=== PATIENT | female | born 1985 | race Caucasian/White ===

== ENCOUNTER 2018-02-20 17:19 | Outpatient (REF) | payer MEDICAID, SELFPAY ==
[2018-02-20 18:40] LABS: VALPROIC ACID 90.5 ug/mL (50-100)
== END 2018-02-20 17:39 ==
LOC: NCHCN 17:19
PROVIDERS: PCP Nurse Practitioner Family; Visit Provider Nurse Practitioner Family
DX: G40.409 Other generalized epilepsy and epileptic syndromes, not intractable, without status epilepticus (principal); Z51.81 Encounter for therapeutic drug level monitoring
CPT/HCPCS: 80164

== ENCOUNTER 2018-05-29 11:53 | Outpatient (CLI) | payer MEDICAID, SELFPAY ==
--- NOTE | 2018-05-29 11:49 | DI.RAD_ITS ---
SYMPTOMS/DIAGNOSIS: TAL KNEE PAIN, ? DJD LEFT KNEE: The bony structures are normally mineralized. The joint spaces are intact. There are minimal degenerative changes involving the patellofemoral joint, nil else. RIGHT KNEE: The bony structures are normally mineralized. The joint spaces intact. There are minimal degenerative changes involving the patellofemoral joint, nil else.
== END 2018-05-29 12:13 ==
PROVIDERS: PCP Nurse Practitioner Family; Visit Provider Orthopaedic Surgery
DX: M25.561 Pain in right knee (principal); M25.562 Pain in left knee; M17.0 Bilateral primary osteoarthritis of knee; G89.29 Other chronic pain
CPT/HCPCS: 73562

== ENCOUNTER 2018-09-01 19:57 | Observation (INO) | payer MEDICAID, SELFPAY ==
[2018-09-01] VITALS (38 sets, daily range): BP systolic 99–132; BP diastolic 63–90; PULSE 59–87; RESP 12–31; TEMP 36.7–37.2; O2SAT 95–100
--- NOTE | 2018-09-01 20:10 | W.ED.GENAD ---
Discharge Plan Disposition Condition: Stable Discharge Details Chief Complaint: Seizure Admit Date/Time: 09/01/18 21:52 Admit Provider: Pablo Esquivel Attending Provider: Lou Flynn Primary Care Provider: Com[facility] ED Provider: Uriel Baron Discharge Instructions Activity:: Activity as Tolerated Equipment/Supplies:: No Equipment Needed Diet:: As Tolerated Discharge Orders Discharge Orders: Discharge Order (Routine); Ordered 09/02/18 Ordered By: Lou Flynn Discharge Data Discharge Date/Time-TO BE ENTERED AT DEPARTURE: 09/01/18 23:11 Medical Decision Making 20:05 --32-year-old female with known seizure disorder, presents with confusion presumed post ictal state after generalized tonic-clonic seizure at 7 PM. Patient had a generalized tonic-clonic seizure earlier this morning and was seen at outside hospital. Plan to obtain outside hospital records from [facility] ED visit this morning as well as prior neurology note from [facility]. I am concerned that Topamax is not controlling her seizure. I will give Keppra 1 g load. Will give IVF. 20:15 --I reviewed [facility] note which states patient's neurologist was consulted earlier today and recommended increasing Topamax dose. I reviewed outside hospital record from [facility] neurology office visit 06/11/2018 that notes MRI brain 05/10/2018 with no acute intracranial abnormality EEG was done on 05/05/2018 noted to be normal study. Neurology notes unclear if patient has apoplexy or if other explanation for seizure activity and episodes of loss of consciousness. There was concern that episodes were syncopal in nature patient apparently patient agreed to a Holter monitor. I will obtain ECG. 20:30 --ECG reviewed and interpreted by me: Sinus rhythm 71 bpm, RSR prime pattern noted, normal axis, T wave inversions are noted V2 to V6 with mild ST depressions noted V4 to V6, flattening of T waves lead I and aVL. --I obtained ECG from [facility] dated 02/27/18 which shows similar findings. --Patient now noting that she has had mild headache today and may have hit her head with initial seizure. CT head was not obtained outside hospital earlier today. I considered acute life-threatening intracranial traumatic hemorrhage. CT of the head was obtained and interpreted by radiology: No acute intracranial abnormality. Labs reviewed and patient has mild hypokalemia. Plan to give K-Dur 20 milliequivalents. Plan to admit the patient for observation and neurologic consultation regarding ongoing antiepileptic medications. -- I spoke with Dr. Esquivel who will admit the patient. Discussed plan with patient and family. Family requests that patient be discharged with benzo for emergency use with seizure. HPI General Mode of arrival: EMS. Date/Time Provider Initiated Documentation: 09/01/18 20:09. Limitations to Documentation: no limitations. Information obtained by: patient, family (mother) and EMS. HPI Narrative: 32-year-old female with known seizure disorder presents after generalized tonic-clonic seizure witnessed by significant other while at rest in a chair. Seizure was severe, sudden onset, brief lasting minutes, followed by postictal confusion. Seizure occurred around 7 PM. Patient remains confused which limits history and review of systems. Patient notes last seizure was earlier today. She was seen at [facility] and discharged home. Last seizure episode prior to this morning was about 2 years ago. She is typically controlled on Topamax. Patient follows with [facility] neurology for her seizure disorder. Patient denies weakness. No headache. No pain. Related Data Home Medications Medication Instructions Recorded Confirmed atorvastatin [Lipitor] 20 mg PO HS 06/25/17 09/01/18 gabapentin 600 mg PO BID 06/25/17 09/01/18 lorazepam 0.5 mg PO PRN PRN 06/25/17 09/01/18 albuterol sulfate 90 mcg/actuation 1 inh IH Q4H 05/29/18 09/01/18 breath activated powder inhaler rijguhi-[id number]-wjknipur 250 2 tab PO ONCE PRN tab 05/29/18 09/01/18 mg-250 mg-65 mg tablet cbd oil PO 05/29/18 05/29/18 citalopram 20 mg tablet 20 mg PO DAILY 05/29/18 09/01/18 fluticasone propionate 110 2 puff IH BID 05/29/18 09/01/18 mcg/actuation HFA aerosol inhaler ibuprofen 200 mg tablet 600 mg PO ONCE PRN tab 05/29/18 09/01/18 inhalational spacing device #1 each 05/29/18 09/01/18 iud INTRAUTERINE 05/29/18 05/29/18 aripiprazole 2 mg PO DAILY 09/01/18 09/01/18 hydrochlorothiazide 12.5 mg PO DAILY 09/01/18 09/01/18 topiramate 100 mg PO BID 09/01/18 09/01/18 Allergies Allergy/AdvReac Type Severity Reaction Status Date / Time No Known Allergies Allergy Unverified 06/25/17 10:26 General Stated Complaint: Seizure GM: 2 Review of Systems Review of Systems Unobtainable due to mental status [facility] Social History Smoking/Tobacco Use Status: Never Alcohol Intake: never Drug use: Never Substance use type: does not use Do you feel safe at home: Yes Do you feel safe in your relationship?: Yes Exam Const General: cooperative, no acute distress and well developed Orientation: alert, awake, oriented to person, oriented to place and confused Limitations: altered mental status HENMT Head: normocephalic and atraumatic Mouth: moist mucous membranes, lip abnormal (Lower lip with superficial laceration, no active bleeding) and tongue abnormal laceration (Avulsion right tongue, no active bleeding ) Eyes Conjunctivae: normal conjunctivae Sclera: normal sclerae Neck Neck: trachea midline and supple Resp Auscultation: clear to auscultation bilaterally, no rales, no rhonchi and no wheezes Cardio Jugular venous pressure: no JVD Rate: regular rate and not tachycardic Rhythm: regular rhythm GI Palpation: soft, not firm, no guarding, no masses, not rigid and nontender Skin General skin exam: no rashes or lesions noted Neuro General: alert, awake, oriented Patient Orientation: Person, Place and Confused and tone normal Cranial Nerves: PERRL, accommodation normal and EOM intact bilaterally Cognition: abnormal cognition Speech: speech normal Motor: muscle tone normal throughout and strength 5/5 throughout Sensory Exam: no sensory deficits noted Extrem General: no edema Psych Appearance: grossly normal Course Vital Signs Temperature 37.0 C 09/01/18 20:00 Pulse 84 09/01/18 20:00 Respiratory Rate 18 09/01/18 20:00 Blood Pressure 113/70 09/01/18 20:00 Pulse Oximetry 98 09/01/18 20:00 Temperature 37.0 C 09/01/18 20:00 Temperature Source Tympanic 09/01/18 20:00 Pulse 84 09/01/18 20:00 Respiratory Rate 18 09/01/18 20:00 Respiratory Effort 09/01/18 20:04 Blood Pressure 113/70 09/01/18 20:00 Blood Pressure Position Supine 09/01/18 20:00 Pulse Oximetry 98 09/01/18 20:00 Oxygen Delivery Method Room Air 09/01/18 20:00 Oxygen Flow Rate 0 09/01/18 20:00 Pain Level 0 09/01/18 20:00
[2018-09-01] MEDS: levETIRAcetam 1,000 MG in Normal Saline 100 ML 400 MG IVPB (20:20)
[2018-09-01 20:24] LABS: Abs Immature Grans 0.04 k/cumm (0.0-0.09); Absolute Basophil Count 0.02 k/cumm (0.0-0.2); Absolute Eosinophil Count 0.13 k/cumm (0.0-0.7); Absolute Lymphocyte Count 2.35 k/cumm (1.2-3.4); Absolute Monocyte Count 1.35 k/cumm (0.11-0.7); Absolute Neutrophil Count 7.79 k/cumm (1.2-6.7); Basophils % 0.2; Eosinophils % 1.1; HCT 39.7 % (36.0-46.0); HGB 14.1 g/dL (12.0-15.5); Immature Grans % 0.3; Lymphocytes % 20.1; Mean Corp. HGB Concentration 35.5 g/dL (32.0-36.0); Mean Corpuscular Hemoglobin 29.9 pg (27.0-33.0); Mean Corpuscular Volume 84.3 fL (80-95); Mean Platelet Volume 9.7 fL (8.0-11.0); Monocytes % 11.6; Neutrophils % 66.7; Platelet Count 278 x1000/uL (130-400); RBC 4.71 m/cumm (4.00-5.20); RBC Distribution Width 12.4 % (11.7-14.6); White Blood Cell Count 11.68 k/cumm (4.4-10.8)
[2018-09-01] MEDS: Normal Saline 1,000 ML 150 ML IV ×2 (20:36→23:52)
[2018-09-01 20:37] LABS: ALT 71 U/L (12-78); AST 36 U/L (15-37); Albumin 3.8 g/dL (3.4-5.0); Alkaline Phosphatase 54 U/L (46-116); Anion Gap 16.7 mmol/L (3-11); BUN 10 mg/dL (7-18); Bilirubin, Total 0.4 mg/dL (0.2-1.0); CO2 19.3 mmol/L (21.0-32.0); CREATININE 1.04 mg/dL (0.55-1.02); Calcium 9.2 mg/dL (8.5-10.1); Chloride 105 mmol/L (98-107); Glucose 117 mg/dL (70-100); Magnesium 2.4 mg/dL (1.8-2.4); Potassium 3.2 mmol/L (3.5-5.1); Sodium 141 mmol/L (136-145); Total Protein 7.8 g/dL (6.4-8.2)
[2018-09-01 20:47] LABS: TSH (W/Ref FT4) 2.24 uIU/mL (0.358-3.74)
[2018-09-01 21:00] LABS: Troponin I < 0.05 ng/mL (0.00-0.06)
--- NOTE | 2018-09-01 21:10 | DI.CT_ITS ---
SYMPTOM/DIAGNOSIS: TRAUMA, SEIZURE, HIT HEAD NONCONTRAST HEAD CT: No intracranial hemorrhage or skull fracture is seen. The ventricles are normal in size. The visualized sinuses and mastoid air cells appear clear. IMPRESSION: Negative head CT.
--- NOTE | 2018-09-01 21:33 | DI.VRAD_ITS ---
EXAM: CT Head Without Contrast EXAM DATE/TIME: 09/01/2018 8:50 PM CLINICAL HISTORY: 32 years old, female; Injury or trauma; Fall; Initial encounter; Blunt trauma (contusions or hematomas); With loss of consciousness; Not specified TECHNIQUE: Imaging protocol: Axial computed tomography images of the head without contrast. Coronal and sagittal reformatted images were created and reviewed. Radiation optimization: All CT scans at this facility use at least one of these dose optimization techniques: automated exposure control; mA and/or kV adjustment per patient size (includes targeted exams where dose is matched to clinical indication); or iterative reconstruction. COMPARISON: No relevant prior studies available. FINDINGS: Brain: Normal. No hemorrhage. Unremarkable white matter. No mass effect. Ventricles: Normal. No ventriculomegaly. Bones/joints: Unremarkable. No acute fracture. Sinuses: Visualized sinuses are unremarkable. No fluid levels. Mastoid air cells: Visualized mastoid air cells are well aerated. No mastoid effusion. Soft tissues: Unremarkable. IMPRESSION: No acute intracranial abnormality. Dictated and Authenticated by: Zaki Newman MD. Ordering:BALDEMAR Trevino MD
[2018-09-01] MEDS: Potassium Chloride 10 MEQ TABCR 20 MEQ PO (21:52)
[2018-09-01 22:55] LABS: Bilirubin Negative (Negative); Blood Large (Negative); Clarity Clear (Clear); Glucose Negative (Negative); Ketones Negative (Negative); Leukocyte Esterase Trace (Negative); Nitrite Negative (Negative); Specific Gravity 1.025 (1.005-1.025); pH 6.5 (5-8)
--- NOTE | 2018-09-01 23:04 | W.PM.HP.N ---
Date of service: 09/01/18 Time of Service: 22:04 Assessment and Plan (1) Generalized tonic-clonic seizure: Current visit: Yes Status: Acute Witnessed tonic-clonic seizure with tongue laceration, lip laceration and incontinence, now with altered mental status compatible with postictal state. No clear triggering factors with no historical factors suggesting infection. Prior to her seizure no head trauma. No recent drug changes or additions. She never uptitrated her Topamax dose, as ordered per [facility] notes, to 100 mg twice daily and it is possible her seizure is due simply to under dosing of her anticonvulsant medication. She received an additional 100 mg of Topamax from the [place] [facility] and has been loaded with Keppra intravenously here in our ER. I am not planning on giving her any more anticonvulsants at this time. I will start the higher dose Topamax as suggested per notation from [place]'s conversation with neurology, to 100 mg twice daily. Plan is to titrate up over the course of 1 to 2 weeks to a goal of 200 mg twice daily if tolerated. (2) Tongue laceration: Current visit: Yes Status: Acute Mild discomfort from this. Not actively bleeding. It does not appear to require suturing. It should heal without complication. (3) Hypokalemia: Current visit: Yes Status: Acute Chronicity not known. On thiazide diuretic and it could be a chronic issue. She was given oral replacement in the ER. See what her potassium is in the morning. May need long-term potassium supplementation or a switch to a potassium sparing diuretic. (4) Hypertension: Current visit: Yes Status: Chronic Per patient report well-controlled with diuretic. Monitor to see if any adjustment in treatment for blood pressure is needed. (5) Depression: Current visit: Yes Status: Chronic Per report of patient and her mother stable and doing well with the current combination of aripiprazole and citalopram. I am continuing same. (6) Migraine headache: Current visit: Yes Status: Chronic Has not had a headache in quite some time. Even after her seizure with suspected head trauma consequent to a fall, no headache now. Topamax was started by neurology this past spring in hopes of managing both her seizures and for migraine prophylaxis. (7) Hyperlipidemia: Current visit: Yes Status: Chronic Tolerating statin without clear adverse effect. Continue outpatient dose. (8) Asthma: Current visit: Yes Status: Chronic Per patient, well-controlled with current inhaler of fluticasone, continue same. (9) Fibromyalgia: Current visit: Yes Status: Chronic Patient reports gabapentin has been beneficial for her fibromyalgia. I am continuing outpatient dose. (10) Tremor: Current visit: Yes Status: Chronic Etiology unclear, certainly could be medication. Reportedly much better but not gone after discontinuing Depakote and switching to Topamax. Unclear if tremor antedated aripiprazole. At this point I am not pursuing any additional work-up. History of Present Illness Chief Complaint: Second tonic-clonic seizure in less than 6 hours Narrative: 32-year-old mother of 2 brought to the emergency room by ambulance after her second seizure today. She noted feeling slightly off about mid day while having lunch with her daughters in [facility]. They subsequently went to [facility] and she recalls being in the dog food aisle when she lacked out. Apparently had a tonic-clonic seizure and sustained laceration to her lip and left side of her tongue. She was taken by ambulance to the [place] emergency room where his sensorium quickly cleared. She has been on Topamax 100 mg once daily. ER physician in [place] contacted neurology at [facility] who recommended increasing the Topamax to 100 mg twice daily. She was given an additional 100 mg dose and then discharged. 3 hours later when at home, feeling still a little bit foggy, she had a a witnessed tonic-clonic seizure with some loss of bowel control. Ambulance was again called and she was brought to the emergency room here, mildly confused compatible with postictal state. The tongue and lip lacerations were noted. She had a noncontrast head CT that was normal. Her postictal confusion steadily improved but did not get back to baseline by the time I saw her, according to her mother. She received 1000 mg of Keppra intravenously. She was found to have slightly low potassium and given an oral potassium dose of 20 mEq. She is being admitted now for further monitoring for any dysrhythmia or recurrent seizure. She was seen by neurology fellow Dr. Charito Mosley, and [facility] on June 11 of this year under the supervision of Dr. Mohan, with complaints of tremor in the history of seizure and migraine. At that time was on Depakote for seizure control. Because of the coexistence of possible seizure migraine her medications were changed and she was started on Topamax initially 50 mg daily then 50 mg twice daily with a goal of 100 mg twice daily. She has been taking 100 mg once daily. There was question as to whether she had epilepsy versus nonepileptic seizure or syncopal episodes. 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 Subsequent to that neurology visit she had an unremarkable Holter monitor, sinus rhythm predominant or sinus bradycardia. She had a normal awake EEG August 08, 2018. She had an MRI of her brain without contrast on May 10, 2018 showing nonspecific periventricular white matter changes, interpreted as no acute intracranial process. She had a normal bubble echo on July 22, 2012 with normal LVEF. She is not known to have any chronic electrolyte abnormalities. She has not had any recent fever or URI symptoms. Prior to her fall today with her seizure she has had no head trauma. There have been no new medications other than the change from Depakote to Topamax. Dr. Jd Julien, neurology [facility], was contacted by the [facility] who recommended Topamax dose be increased to 100 mg twice daily and over the next days to week further increase to 150 mg and then 200 mg twice daily. She had been on Keppra in the past but had adverse reaction to this. She was then on Depakote, recently switched to Topamax because of tremor which according to patient and mother definitely got better after stopping the Depakote. She takes gabapentin for fibromyalgia, not as an antiepileptic medication. Review of Systems Review of Systems All systems reviewed & are unremarkable except as noted in HPI and below Eyes Comments: No diplopia. ENT Comments: Tongue is a little sore from the laceration. Cardiovascular Comments: No palpitations. She does not get orthostatic dizziness or presyncope. No chest pains. Respiratory Comments: Asthma well-controlled with current inhalers with no recent use of albuterol. Endocrine Comments: Menses regular, current only with menstrual cycle flow. [facility] Social History Smoking/Tobacco Use Status: Never Alcohol Intake: never Drug use: Never Substance use type: does not use Do you feel safe at home: Yes Do you feel safe in your relationship?: Yes Meds Home Medications Medication Instructions Recorded Confirmed Type atorvastatin [Lipitor] 20 mg PO HS 06/25/17 09/01/18 History divalproex 500 mg PO BID 06/25/17 09/01/18 History gabapentin 600 mg PO BID 06/25/17 09/01/18 History lorazepam 0.5 mg PO PRN PRN 06/25/17 09/01/18 History albuterol sulfate 90 mcg/actuation 1 inh IH Q4H 05/29/18 09/01/18 History breath activated powder inhaler nfnpadz-wqraynqkxznbh-ucljyikp 250 2 tab PO ONCE PRN tab 05/29/18 09/01/18 History mg-250 mg-65 mg tablet cbd oil PO 05/29/18 05/29/18 History citalopram 20 mg tablet 20 mg PO DAILY 05/29/18 09/01/18 History fluticasone propionate 110 2 puff IH BID 05/29/18 09/01/18 History mcg/actuation HFA aerosol inhaler ibuprofen 200 mg tablet 600 mg PO ONCE PRN tab 05/29/18 09/01/18 History inhalational spacing device #1 each 05/29/18 09/01/18 History iud INTRAUTERINE 05/29/18 05/29/18 History oxymetazoline 0.05 % nasal spray 1 spray SAAD BID ml 05/29/18 09/01/18 History aripiprazole 2 mg PO DAILY 09/01/18 09/01/18 History hydrochlorothiazide 12.5 mg PO DAILY 09/01/18 09/01/18 History topiramate 100 mg PO BID 09/01/18 09/01/18 History Allergies Allergy/AdvReac Type Severity Reaction Status Date / Time No Known Allergies Allergy Unverified 06/25/17 10:26 Exam Narrative Exam Narrative: Slightly groggy woman appearing her stated age able to provide most of the history although some response is a bit delayed. As an example, she could eventually recall all of her medications but it took some prompting from her mother as to what the medications were for. She knew she was in the hospital in [facility], September 01 could not recall the day of the week or the year without prompting. No evidence of head trauma on the scalp. She has a 5 mm laceration lateral aspect of the tongue on the right. There is a broader abrasion on the inner aspect of her lower lip on the left side. No other oral lesions. Neck is supple. No cervical adenopathy no carotid bruits no JVD. Lungs clear in all soliz with good aeration no wheezing. Regular heart rhythm no murmur S3 or S4. Abdomen is obese soft nontender no enlargement of liver or spleen appreciated. Rectal and genital exams were not performed. Extremities warm good pulses no bruising of the shins or forearms. She has a mild rest tremor of her head less pronounced in her hands. No pronator drift. Antigravity power present in both lower extremities. 3+ DTRs at the right knee 2+ at the elbows and left knee. Withdrawal to plantar testing. No truncal ataxia when she sits up unassisted. Results EKG sinus rhythm nonspecific lateral ST changes no different from an ECG from February 2018. Noncontrast head CT with no bleed, mass or midline shift. Labs : 09/01/18 20:00 09/01/18 20:00 Laboratory Results - last 24 hr 09/01/18 09/01/18 09/01/18 20:00 20:00 20:00 WBC 11.68 H RBC 4.71 Hgb 14.1 Hct 39.7 MCV 84.3 MCH 29.9 MCHC 35.5 RDW 12.4 Plt Count 278 MPV 9.7 Immature Gran % 0.3 Neutrophils % 66.7 Lymphocytes % 20.1 Monocytes % 11.6 Eosinophils % 1.1 Basophils % 0.2 Absolute Neutrophils 7.79 H Absolute Lymphocytes 2.35 Absolute Monocytes 1.35 H Absolute Eosinophils 0.13 Absolute Basophils 0.02 Sodium 141 Potassium 3.2 L Chloride 105 Carbon Dioxide 19.3 L Anion Gap 16.7 H BUN 10 Creatinine 1.04 H Estimated GFR/1.73 m2 >= 60.00 Glucose 117 H Calcium 9.2 Magnesium 2.4 Total Bilirubin 0.4 AST 36 ALT 71 Alkaline Phosphatase 54 Troponin I Total Protein 7.8 Albumin 3.8 TSH 2.24 Urine Color Urine Clarity Urine pH Ur Specific [place] Urine Protein Urine Ketones Urine Blood Urine Nitrite Urine Bilirubin Urine Urobilinogen Ur Leukocyte Esterase Urine Glucose 09/01/18 09/01/18 20:00 22:45 WBC RBC Hgb Hct MCV MCH MCHC RDW Plt Count MPV Immature Gran % Neutrophils % Lymphocytes % Monocytes % Eosinophils % Basophils % Absolute Neutrophils Absolute Lymphocytes Absolute Monocytes Absolute Eosinophils Absolute Basophils Sodium Potassium Chloride Carbon Dioxide Anion Gap BUN Creatinine Estimated GFR/1.73 m2 Glucose Calcium Magnesium Total Bilirubin AST ALT Alkaline Phosphatase Troponin I < 0.05 Total Protein Albumin TSH Urine Color Yellow Urine Clarity Clear Urine pH 6.5 Ur Specific [place] 1.025 Urine Protein 30 H Urine Ketones Negative Urine Blood Large H Urine Nitrite Negative Urine Bilirubin Negative Urine Urobilinogen 2.0 H Ur Leukocyte Esterase Trace H Urine Glucose Negative Last Vital Signs Temp 37.0 C 09/01/18 20:00 Pulse 63 09/01/18 22:31 Resp 24 09/01/18 22:40 BP 130/83 09/01/18 22:31 Pulse Ox 100 09/01/18 22:31
[2018-09-01 23:07] LABS: *AMPHETAMINES SCREEN URINE Negative (Negative); *BARBITURATES SCREEN URINE Negative (Negative); *BENZODIAZEPINES SCREEN URINE Negative (Negative); Cannabinoids THC Negative (Negative); Cocaine Screen,Urine Negative (Negative); METHADONE URINE SCREEN Negative (Negative); OPIATES URINE SCREEN Negative (Negative)
[2018-09-01 23:09] LABS: Tricyclic Antidepressants Negative (Negative)
--- NOTE | 2018-09-01 23:30 | HPE_ITS ---
Date of service: 09/01/18 Time of Service: 22:04 Assessment and Plan (1) Generalized tonic-clonic seizure: Current visit: Yes Status: Acute Witnessed tonic-clonic seizure with tongue laceration, lip laceration and incontinence, now with altered mental status compatible with postictal state. No clear triggering factors with no historical factors suggesting infection. Prior to her seizure no head trauma. No recent drug changes or additions. She never uptitrated her Topamax dose, as ordered per [facility] notes, to 100 mg twice daily and it is possible her seizure is due simply to under dosing of her antico nvulsant medication. She received an additional 100 mg of Topamax from the [place] ER and has been loaded with Keppra intravenously here in our ER. I am not planning on giving her any more anticonvulsants at this time. I will start the higher dose Topamax as suggested per notation from [place]'s conversation with neurology, to 100 mg twice daily. Plan is to titrate up over the course of 1 to 2 weeks to a goal of 200 mg twice daily if tolerated. (2) Tongue laceration: Current visit: Yes Status: Acute Mild discomfort from this. Not actively bleeding. It does not appear to require suturing. It should heal without complication. (3) Hypokalemia: Current visit: Yes Status: Acute Chronicity not known. On thiazide diuretic and it could be a chronic issue. She was given oral replacement in the ER. See what her potassium is in the morning. May need long-term potassium supplementation or a switch to a potassium sparing diuretic. (4) Hypertension: Current visit: Yes Status: Chronic Per patient report well-controlled with diuretic. Monitor to see if any adjustment in treatment for blood pressure is needed. (5) Depression: Current visit: Yes Status: Chronic Per report of patient and her mother stable and doing well with the current combination of aripiprazole and citalopram. I am continuing same. (6) Migraine headache: Current visit: Yes Status: Chronic Has not had a headache in quite some time. Even after her seizure with suspected head trauma consequent to a fall, no headache now. Topamax was started by neurology this past spring in hopes of managing both her seizures and for migraine prophylaxis. (7) Hyperlipidemia: Current visit: Yes Status: Chronic Tolerating statin without clear adverse effect. Continue outpatient dose. (8) Asthma: Current visit: Yes Status: Chronic Per patient, well-controlled with current inhaler of fluticasone, continue same. (9) Fibromyalgia: Current visit: Yes Status: Chronic Patient reports gabapentin has been beneficial for her fibromyalgia. I am continuing outpatient dose. (10) Tremor: Current visit: Yes Status: Chronic Etiology unclear, certainly could be medication. Reportedly much better but not gone after discontinuing Depakote and switching to Topamax. Unclear if tremor antedated aripiprazole. At this point I am not pursuing any additional work-up. History of Present Illness Chief Complaint: Second tonic-clonic seizure in less than 6 hours Narrative: 32-year-old mother of 2 brought to the emergency room by ambulance after her second seizure today. She noted feeling slightly off about mid day while having lunch with her daughters in [facility]. They subsequently went to [facility] and she recalls being in the dog food aisle when she lacked out. Apparently had a tonic-clonic seizure and sustained laceration to her lip and left side of her tongue. She was taken by ambulance to the [place] emergency room where his sensorium quickly cleared. She has been on Topamax 100 mg once daily. ER physician in [place] contacted neurology at [facility] who recommended increasing the Topamax to 100 mg twice daily. She was given an additional 100 mg dose and then discharged. 3 hours later when at home, feeling still a little bit foggy, she had a a witnessed tonic-clonic seizure with some loss of bowel control. Ambulance was again called and she was brought to the emergency room here, mildly confused compatible with postictal state. The tongue and lip lacerations were noted. She had a noncontrast head CT that was normal. Her postictal confusion steadily improved but did not get back to baseline by the time I saw her, according to her mother. She received 1000 mg of Keppra intravenously. She was found to have slightly low potassium and given an oral potassium dose of 20 mEq. She is being admitted now for further monitoring for any dysrhythmia or recurrent seizure. She was seen by neurology fellow Dr. Charito Mosley, and [facility] on June 11 of this year under the supervision of Dr. Mohan, with complaints of tremor in the history of seizure and migraine. At that time was on Depakote for seizure control. Because of the coexistence of possible seizure migraine her medications were changed and she was started on Topamax initially 50 mg daily then 50 mg twice daily with a goal of 100 mg twice daily. She has been taking 100 mg once daily. There was question as to whether she had epilepsy versus nonepileptic seizure or syncopal episodes. 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 Subsequent to that neurology visit she had an unremarkable Holter monitor, sinus rhythm predominant or sinus bradycardia. She had a normal awake EEG August 08, 2018. She had an MRI of her brain without contrast on May 10, 2018 showing nonspecific periventricular white matter changes, interpreted as no acute intracranial process. She had a normal bubble echo on July 22, 2012 with normal LVEF. She is not known to have any chronic electrolyte abnormalities. She has not had any recent fever or URI symptoms. Prior to her fall today with her seizure she has had no head trauma. There have been no new medications other than the change from Depakote to Topamax. Dr. Jd Julien, neurology [facility], was contacted by the [facility] who recommended Topamax dose be increased to 100 mg twice daily and over the next days to week further increase to 150 mg and then 200 mg twice daily. She had been on Keppra in the past but had adverse reaction to this. She was then on Depakote, recently switched to Topamax because of tremor which according to patient and mother definitely got better after stopping the Depakote. She takes gabapentin for fibromyalgia, not as an antiepileptic medication. Review of Systems Review of Systems All systems reviewed & are unremarkable except as noted in HPI and below Eyes Comments: No diplopia. ENT Comments: Tongue is a little sore from the laceration. Cardiovascular Comments: No palpitations. She does not get orthostatic dizziness or presyncope. No chest pains. Respiratory Comments: Asthma well-controlled with current inhalers with no recent use of albuterol. Endocrine Comments: Menses regular, current only with menstrual cycle flow. [facility] Social History Smoking/Tobacco Use Status: Never Alcohol Intake: never Drug use: Never Substance use type: does not use Do you feel safe at home: Yes Do you feel safe in your relationship?: Yes Meds Home Medications Medication Instructions Recorded Confirmed Type atorvastatin [Lipitor] 20 mg PO HS 06/25/17 09/01/18 History divalproex 500 mg PO BID 06/25/17 09/01/18 History gabapentin 600 mg PO BID 06/25/17 09/01/18 History lorazepam 0.5 mg PO PRN PRN 06/25/17 09/01/18 History albuterol sulfate 90 mcg/actuation 1 inh IH Q4H 05/29/18 09/01/18 History breath activated powder inhaler [id number] 250 2 tab PO ONCE PRN tab 05/29/18 09/01/18 History mg-250 mg-65 mg tablet cbd oil PO 05/29/18 05/29/18 History citalopram 20 mg tablet 20 mg PO DAILY 05/29/18 09/01/18 History fluticasone propionate 110 2 puff IH BID 05/29/18 09/01/18 History mcg/actuation HFA aerosol inhaler ibuprofen 200 mg tablet 600 mg PO ONCE PRN tab 05/29/18 09/01/18 History inhalational spacing device #1 each 05/29/18 09/01/18 History iud INTRAUTERINE 05/29/18 05/29/18 History oxymetazoline 0.05 % nasal spray 1 spray SAAD BID ml 05/29/18 09/01/18 History aripiprazole 2 mg PO DAILY 09/01/18 09/01/18 History hydrochlorothiazide 12.5 mg PO DAILY 09/01/18 09/01/18 History topiramate 100 mg PO BID 09/01/18 09/01/18 History Allergies Allergy/AdvReac Type Severity Reaction Status Date / Time No Known Allergies Allergy Unverified 06/25/17 10:26 Exam Narrative Exam Narrative: Slightly groggy woman appearing her stated age able to provide most of the history although some response is a bit delayed. As an example, she could eventually recall all of her medications but it took some prompting from her mother as to what the medications were for. She knew she was in the hospital in [facility], September 01 could not recall the day of the week or the year without prompting. No evidence of head trauma on the scalp. She has a 5 mm laceration lateral aspect of the tongue on the right. There is a broader abrasion on the inner aspect of her lower lip on the left side. No other oral lesions. Neck is supple. No cervical adenopathy no carotid bruits no JVD. Lungs clear in all soliz with good aeration no wheezing. Regular heart rhythm no murmur S3 or S4. Abdomen is obese soft nontender no enlargement of liver or spleen appreciated. Rectal and genital exams were not performed. Extremities warm good pulses no bruising of the shins or forearms. She has a mild rest tremor of her head less pronounced in her hands. No pronator drift. Antigravity power present in both lower extremities. 3+ DTRs at the right knee 2+ at the elbows and left knee. Withdrawal to plantar testing. No truncal ataxia when she sits up unassisted. Results EKG sinus rhythm nonspecific lateral ST changes no different from an ECG from February 2018. Noncontrast head CT with no bleed, mass or midline shift. Labs : 09/01/18 20:00 09/01/18 20:00 Laboratory Results - last 24 hr 09/01/18 09/01/18 09/01/18 20:00 20:00 20:00 WBC 11.68 H RBC 4.71 Hgb 14.1 Hct 39.7 MCV 84.3 MCH 29.9 MCHC 35.5 RDW 12.4 Plt Count 278 MPV 9.7 Immature Gran % 0.3 Neutrophils % 66.7 Lymphocytes % 20.1 Monocytes % 11.6 Eosinophils % 1.1 Basophils % 0.2 Absolute Neutrophils 7.79 H Absolute Lymphocytes 2.35 Absolute Monocytes 1.35 H Absolute Eosinophils 0.13 Absolute Basophils 0.02 Sodium 141 Potassium 3.2 L Chloride 105 Carbon Dioxide 19.3 L Anion Gap 16.7 H BUN 10 Creatinine 1.04 H Estimated GFR/1.73 m2 >= 60.00 Glucose 117 H Calcium 9.2 Magnesium 2.4 Total Bilirubin 0.4 AST 36 ALT 71 Alkaline Phosphatase 54 Troponin I Total Protein 7.8 Albumin 3.8 TSH 2.24 Urine Color Urine Clarity Urine pH Ur Specific [place] Urine Protein Urine Ketones Urine Blood Urine Nitrite Urine Bilirubin Urine Urobilinogen Ur Leukocyte Esterase Urine Glucose 09/01/18 09/01/18 20:00 22:45 WBC RBC Hgb Hct MCV MCH MCHC RDW Plt Count MPV Immature Gran % Neutrophils % Lymphocytes % Monocytes % Eosinophils % Basophils % Absolute Neutrophils Absolute Lymphocytes Absolute Monocytes Absolute Eosinophils Absolute Basophils Sodium Potassium Chloride Carbon Dioxide Anion Gap BUN Creatinine Estimated GFR/1.73 m2 Glucose Calcium Magnesium Total Bilirubin AST ALT Alkaline Phosphatase Troponin I < 0.05 Total Protein Albumin TSH Urine Color Yellow Urine Clarity Clear Urine pH 6.5 Ur Specific [place] 1.025 Urine Protein 30 H Urine Ketones Negative Urine Blood Large H Urine Nitrite Negative Urine Bilirubin Negative Urine Urobilinogen 2.0 H Ur Leukocyte Esterase Trace H Urine Glucose Negative Last Vital Signs Temp 37.0 C 09/01/18 20:00 Pulse 63 09/01/18 22:31 Resp 24 09/01/18 22:40 BP 130/83 09/01/18 22:31 Pulse Ox 100 09/01/18 22:31
[2018-09-01 23:40] LABS: Bacteria Negative HPF (Negative); C & S Indicated? Yes; Casts Negative LPF (Negative); Crystals Negative HPF (Negative); Epithelial Cells Negative HPF (Negative); Mucus Negative (Negative); Other Cells Few Renal (Negative); RBC >50 (0-2)
[2018-09-02] VITALS (34 sets, daily range): BP systolic 96–126; BP diastolic 49–70; PULSE 51–65; RESP 17–29; TEMP 36.6–37.6; O2SAT 95–97
[2018-09-02] MEDS: Ibuprofen 400 MG TAB PO (00:47)
[2018-09-02] MEDS: Normal Saline 1,000 ML 150 ML IV (05:41)
[2018-09-02 07:12] LABS: HCT 35.9 % (36.0-46.0); HGB 12.6 g/dL (12.0-15.5); Mean Corp. HGB Concentration 35.1 g/dL (32.0-36.0); Mean Corpuscular Hemoglobin 30.1 pg (27.0-33.0); Mean Corpuscular Volume 85.9 fL (80-95); Mean Platelet Volume 9.7 fL (8.0-11.0); Platelet Count 251 x1000/uL (130-400); RBC 4.18 m/cumm (4.00-5.20); RBC Distribution Width 12.4 % (11.7-14.6); White Blood Cell Count 9.48 k/cumm (4.4-10.8)
[2018-09-02 07:24] LABS: BUN 7 mg/dL (7-18); CREATININE 0.79 mg/dL (0.55-1.02); Calcium 8.1 mg/dL (8.5-10.1); Chloride 111 mmol/L (98-107); Glucose 87 mg/dL (70-100); Potassium 3.1 mmol/L (3.5-5.1); Sodium 142 mmol/L (136-145)
[2018-09-02] MEDS: POTASSIUM CHLORIDE/0.9% NACL 1,000 ML 125 MEQ IV (08:14)
--- NOTE | 2018-09-02 08:20 | W.PM.PROGNOT ---
Date of Service Date of service: 09/02/18 Time of Service: 08:20 Subjective Interval history since last seen: Nursing noted hopping from commode to bed on both legs. No reports of any kind of pain. No seizure events in the ICU. Objective Objective Clinical Data: Abnormal lab results 09/01/18 09/01/18 09/01/18 Range/Units 20:00 20:00 22:45 WBC 11.68 H (4.4-10.8) k/cumm Hct (36.0-46.0) % Absolute Neutrophils 7.79 H (1.2-6.7) k/cumm Absolute Monocytes 1.35 H (0.11-0.7) k/cumm Potassium 3.2 L (3.5-5.1) mmol/L Chloride (98-107) mmol/L Carbon Dioxide 19.3 L (21.0-32.0) mmol/L Anion Gap 16.7 H (3-11) mmol/L Creatinine 1.04 H (0.55-1.02) mg/dL Glucose 117 H (70-100) mg/dL Calcium (8.5-10.1) mg/dL Urine Protein 30 H (Negative) mg/dL Urine Blood Large H (Negative) Urine Urobilinogen 2.0 H (Up TO 0.2) EU/dL Ur Leukocyte Esterase Trace H (Negative) Urine RBC >50 H (0-2) 09/02/18 09/02/18 Range/Units 06:30 06:30 WBC (4.4-10.8) k/cumm Hct 35.9 L (36.0-46.0) % Absolute Neutrophils (1.2-6.7) k/cumm Absolute Monocytes (0.11-0.7) k/cumm Potassium 3.1 L (3.5-5.1) mmol/L Chloride 111 H (98-107) mmol/L Carbon Dioxide 18.0 L (21.0-32.0) mmol/L Anion Gap 13.0 H (3-11) mmol/L Creatinine (0.55-1.02) mg/dL Glucose (70-100) mg/dL Calcium 8.1 L (8.5-10.1) mg/dL Urine Protein (Negative) mg/dL Urine Blood (Negative) Urine Urobilinogen (Up TO 0.2) EU/dL Ur Leukocyte Esterase (Negative) Urine RBC (0-2) Vital Signs Temperature 36.8 C 09/02/18 03:00 Temperature Source Temporal Artery Scan 09/02/18 03:00 Pulse 57 L 09/02/18 03:00 Pulse 56 L 09/02/18 03:30 Respiratory Rate 29 H 09/02/18 03:30 Respiratory Effort Non-Labored 09/01/18 23:10 Respiratory Depth Normal 09/01/18 23:10 Respiratory Pattern Normal 09/01/18 23:10 Blood Pressure 108/58 L 09/02/18 03:00 Blood Pressure Mean 63 09/02/18 02:01 Blood Pressure Position Supine 09/01/18 23:10 Pulse Oximetry 96 09/02/18 03:30 Oxygen Delivery Method Room Air 09/02/18 03:00 Oxygen Flow Rate 0 09/02/18 03:00 Pain Level 0 09/02/18 03:00 Intake & Output 09/01/18 09/01/18 09/02/18 11:59 23:59 11:59 Intake Total 700 / 700 1252.5 / 1252.5 Output Total 475 / 475 Balance 700 / 700 777.5 / 777.5 Weight 85.8 kg 86.7 kg Intake: IV 600 / 600 1252.5 / 1252.5 Oral 100 / 100 Output: Urine 475 / 475 Other: Comment Pt is having her menses and the urine was mixed w/stool. Stool Size Moderate Stool Characteristics Formed Voiding Methods Bedside Commode Laboratory Results WBC 9.48 k/cumm (4.4-10.8) 09/02/18 06:30 RBC 4.18 m/cumm (4.00-5.20) 09/02/18 06:30 Hgb 12.6 g/dL (12.0-15.5) 09/02/18 06:30 Hct 35.9 % (36.0-46.0) L 09/02/18 06:30 MCV 85.9 fL (80-95) 09/02/18 06:30 MCH 30.1 pg (27.0-33.0) 09/02/18 06:30 MCHC 35.1 g/dL (32.0-36.0) 09/02/18 06:30 RDW 12.4 % (11.7-14.6) 09/02/18 06:30 Plt Count 251 x1000/uL (130-400) 09/02/18 06:30 MPV 9.7 fL (8.0-11.0) 09/02/18 06:30 Immature Gran % 0.3 09/01/18 20:00 Neutrophils % 66.7 09/01/18 20:00 Lymphocytes % 20.1 09/01/18 20:00 Monocytes % 11.6 09/01/18 20:00 Eosinophils % 1.1 09/01/18 20:00 Basophils % 0.2 09/01/18 20:00 Absolute Neutrophils 7.79 k/cumm (1.2-6.7) H 09/01/18 20:00 Absolute Lymphocytes 2.35 k/cumm (1.2-3.4) 09/01/18 20:00 Absolute Monocytes 1.35 k/cumm (0.11-0.7) H 09/01/18 20:00 Absolute Eosinophils 0.13 k/cumm (0.0-0.7) 09/01/18 20:00 Absolute Basophils 0.02 k/cumm (0.0-0.2) 09/01/18 20:00 Sodium 142 mmol/L (136-145) 09/02/18 06:30 Potassium 3.1 mmol/L (3.5-5.1) L 09/02/18 06:30 Chloride 111 mmol/L (98-107) H 09/02/18 06:30 Carbon Dioxide 18.0 mmol/L (21.0-32.0) L 09/02/18 06:30 Anion Gap 13.0 mmol/L (3-11) H 09/02/18 06:30 BUN 7 mg/dL (7-18) 09/02/18 06:30 Creatinine 0.79 mg/dL (0.55-1.02) 09/02/18 06:30 Estimated GFR/1.73 m2 >= 60.00 (mL/min/1.73m2) 09/02/18 06:30 Glucose 87 mg/dL (70-100) 09/02/18 06:30 Calcium 8.1 mg/dL (8.5-10.1) L 09/02/18 06:30 Magnesium 2.4 mg/dL (1.8-2.4) 09/01/18 20:00 Total Bilirubin 0.4 mg/dL (0.2-1.0) 09/01/18 20:00 AST 36 U/L (15-37) 09/01/18 20:00 ALT 71 U/L (12-78) 09/01/18 20:00 Alkaline Phosphatase 54 U/L (46-116) 09/01/18 20:00 Troponin I < 0.05 ng/mL (0.00-0.06) 09/01/18 20:00 Total Protein 7.8 g/dL (6.4-8.2) 09/01/18 20:00 Albumin 3.8 g/dL (3.4-5.0) 09/01/18 20:00 TSH 2.24 uIU/mL (0.358-3.74) 09/01/18 20:00 Urine Color Yellow (Yellow) 09/01/18 22:45 Urine Clarity Clear (Clear) 09/01/18 22:45 Urine pH 6.5 (5-8) 09/01/18 22:45 Ur Specific [place] 1.025 (1.005-1.025) 09/01/18 22:45 Urine Protein 30 mg/dL (Negative) H 09/01/18 22:45 Urine Ketones Negative mg/dL (Negative) 09/01/18 22:45 Urine Blood Large (Negative) H 09/01/18 22:45 Urine Nitrite Negative (Negative) 09/01/18 22:45 Urine Bilirubin Negative (Negative) 09/01/18 22:45 Urine Urobilinogen 2.0 EU/dL (Up TO 0.2) H 09/01/18 22:45 Ur Leukocyte Esterase Trace (Negative) H 09/01/18 22:45 Urine RBC >50 (0-2) H 09/01/18 22:45 Urine WBC 3-5 HPF (0-5) 09/01/18 22:45 Ur Epithelial Cells Negative HPF (Negative) 09/01/18 22:45 Urine Crystals Negative HPF (Negative) 09/01/18 22:45 Urine Bacteria Negative HPF (Negative) 09/01/18 22:45 Urine Casts Negative LPF (Negative) 09/01/18 22:45 Urine Mucus Negative (Negative) 09/01/18 22:45 Urine Other Few renal (Negative) 09/01/18 22:45 Ur Culture Indicated? Yes 09/01/18 22:45 Urine Glucose Negative mg/dL (Negative) 09/01/18 22:45 Urine Opiates Screen Negative (Negative) 09/01/18 22:45 Urine Methadone Screen Negative (Negative) 09/01/18 22:45 Ur Barbiturates Screen Negative (Negative) 09/01/18 22:45 Ur Tricyclics Screen Negative (Negative) 09/01/18 22:45 Ur Amphetamines Screen Negative (Negative) 09/01/18 22:45 U Benzodiazepines Scrn Negative (Negative) 09/01/18 22:45 Urine Cocaine Screen Negative (Negative) 09/01/18 22:45 Ur THC Screen Negative (Negative) 09/01/18 22:45
[2018-09-02] MEDS: Potassium Chloride 20 MEQ TABCR 40 MEQ PO (08:26)
[2018-09-02] MEDS: Topiramate 100 MG TAB PO (08:26)
[2018-09-02] MEDS: Gabapentin 600 MG TAB PO (08:26)
[2018-09-02] MEDS: hydroCHLOROthiazide 12.5 MG TAB PO (08:26)
[2018-09-02] MEDS: ARIPiprazole 2 MG TAB PO (08:26)
[2018-09-02] MEDS: Citalopram 20 MG TAB PO (08:26)
[2018-09-02 10:07] LABS: Lactate-non-spesis 2.6 mmol/l (0.6-1.4)
[2018-09-02 10:30] LABS: Creatine Kinase 67 U/L (26-192)
[2018-09-02] MEDS: Mometasone 220 MCG 14 DOSE INHALER 2 PUFF IH (12:49)
--- NOTE | 2018-09-02 15:09 | PDOC.CMIN ---
Care Management Initial Assess REASON FOR HOSPITALIZATION:: Seizure Activity PAST MEDICAL HISTORY/PAST SURGICAL HISTORY:: Hyperlipidemia, Major depressive disorder, essential hypertension, hypokalemia, migraine, asthma, fibromyalgia, tremor, seizures PREVIOUS FUNCTIONAL STATUS/SOCIAL/FAMILY SUPPORTS:: Bessie resides in [place] with her and their children. She had [facility] Moderate needs supports and relys on her and mother for help with some ADLs. CURRENT FUNCTIONAL STATUS:: Bessie is lying in bed, her mother at her bedside. She presents with low affect and her mother answers most questions directed at Bessie. ADVANCE DIRECTIVES:: None on file at [facility]. Has patient been provided with information about the portal?: Yes Did the patient sign up for the portal?: No CODE STATUS:: Full Code INSURANCE COVERAGE / FINANCIAL ISSUES:: [employer] CURRENT HOME/COMMUNITY SERVICES/EQUIPMENT:: [employer] Moderate Needs PRIMARY CARE PHYSICIAN:: [employer] POTENTIAL DISCHARGE NEEDS:: Follow up appointment with PCP, neurologist. PATIENT/FAMILY EDUCATION NEEDS:: Review discharge instructions, discuss Ask Me Three. ANTICIPATED BARRIERS TO DISCHARGE:: None identified. TRANSPORTATION:: Via private vehicle with her family. PLAN:: Bessie will discharge home when ready per MD. She will follow up with her PCP, Neurologist and plan of care as prescribed. She will transport via private vehicle with family.
--- NOTE | 2018-09-02 15:55 | W.PM.DS.N ---
Date of service: 09/02/18 Time of Service: 15:55 DS: Diagnosis Discharge Diagnosis (1) Generalized tonic-clonic seizure: Status: Acute (2) Tongue laceration: Status: Acute (3) Hypokalemia: Status: Acute (4) Hypertension: Status: Chronic (5) Depression: Status: Chronic (6) Migraine headache: Status: Chronic (7) Hyperlipidemia: Status: Chronic (8) Asthma: Status: Chronic (9) Fibromyalgia: Status: Chronic (10) Tremor: Status: Chronic Discharge Plan Disposition Patient Disposition: HOME Condition: Stable Discharge Details Reason For Visit: SEIZURE ACTIVITY Admit Date/Time: 09/01/18 21:52 Admit Provider: Pablo Esquivel Attending Provider: Pablo Esquivel Primary Care Provider: Com[facility] Hospital Course Hospital Course: Ms Levy is a 32 year old female with PMHx of seizure d/o under the care of [facility] neurology with change of therapy from depakote to topamax in June of 2018 who experienced two tonic-clonic seizure events yesterday (09/01/18). She was treated in [place] ED after the first seizure and discharged home, only to have a seizure happen again 4 hours later. She received IV keppra at [facility] ED after her 2nd seizure and was observed on [facility] hospitalist service overnight without recurrence of seizures. Her topamax dose was increased, with the recommendation of [facility] neurolog[facility], from 100 mg daily to 100 mg PO BID. She did have a quivering motion around her upper lip noted with intact mental status. We obtained an EEG on the patient while she was experiencing this movement. Contact was made with [facility] neurology to establish a plan for follow up. It is felt that the patient is safe for discharge home today with the increased dose of topamax (100 mg PO BID) and follow up appointment with [facility] neurology tomorrow at 8 am. Home Meds and New Rx's Prescriptions: Continued cbd oil PO RF: 0 citalopram 20 mg tablet 20 mg PO DAILY RF: 0 Aerochamber MV spacer .ROUTE .MEDSUPPLY Qty: 1 RF: 0 albuterol sulfate 90 mcg/actuation aerosol powdr breath activated 1 inh IH Q4H RF: 0 iud Intrauterine RF: 0 Flovent HFA 110 mcg/actuation HFA aerosol inhaler 2 puff IH BID RF: 0 Excedrin Migraine 250-250-65 mg tablet 2 tab PO ONCE PRNRF: 0 ibuprofen [Advil] 200 mg tablet 600 mg PO ONCE PRNRF: 0 topiramate 100 mg Tablet 100 mg PO BID RF: 0 hydrochlorothiazide 12.5 mg Capsule 12.5 mg PO DAILY RF: 0 aripiprazole 2 mg Tablet 2 mg PO DAILY RF: 0 gabapentin 600 MG tablet 600 mg PO BID RF: 0 atorvastatin [Lipitor] 20 MG tablet 20 mg PO HS RF: 0 lorazepam 0.5 MG tablet 0.5 mg PO PRN PRNRF: 0 Discharge Instructions Instructions: Topiramate (By mouth), Recurrent Seizures in Adults (DC) Additional Instructions: Return to the hospital with any more tonic clonic seizures. Follow up with [facility] neurology tomorrow morning at 8 am. Activity:: Activity as Tolerated Equipment/Supplies:: No Equipment Needed Diet:: As Tolerated Discharge Orders Discharge Orders: Discharge Order (Routine); Ordered 09/02/18 Ordered By: Lou Flynn Exam Narrative Exam Narrative: General: very pleasant obese female, A&Ox3, tired HEENT: EOMI, MMM, does have a tongue bite on the right side of her tongue Heart: RRR, no m/r/g Lungs: CTAB GI: abdomen is soft, nontender, nondistended Extremities: no e/c/c BLE's DS: Data Vitals/I&O Vitals and I&O: Vital Signs Temperature 37.6 C H 09/02/18 08:30 Temperature Source Temporal Artery Scan 09/02/18 08:30 Pulse 58 L 09/02/18 12:01 Pulse 64 09/02/18 13:00 Respiratory Rate 21 09/02/18 13:00 Respiratory Effort Non-Labored 09/01/18 23:10 Respiratory Depth Normal 09/01/18 23:10 Respiratory Pattern Normal 09/01/18 23:10 Blood Pressure 121/66 09/02/18 12:01 Blood Pressure Mean 80 09/02/18 12:01 Blood Pressure Position Supine 09/01/18 23:10 Pulse Oximetry 95 09/02/18 06:01 Oxygen Delivery Method Room Air 09/02/18 03:00 Oxygen Flow Rate 0 09/02/18 03:00 Pain Level 0 09/02/18 03:00 Intake & Output 09/01/18 09/02/18 09/02/18 23:59 11:59 23:59 Intake Total 700 / 700 1502.5 / 1502.5 Output Total 675 / 675 Balance 700 / 700 827.5 / 827.5 Weight 85.8 kg 86.7 kg Intake: IV 600 / 600 1252.5 / 1252.5 Oral 100 / 100 250 / 250 Output: Urine 575 / 575 Stool 100 / 100 Other: Comment mixed with stool. Stool Size Moderate Moderate Stool Characteristics Liquid Liquid Voiding Methods Bedside Commode Completed studies during hospitalization [Text1]: CT head: Negative head CT. Labs on day of discharge: Labs from last 24 hours 09/02/18 09/02/18 09/02/18 09:50 09:50 06:30 WBC 9.48 RBC 4.18 Hgb 12.6 Hct 35.9 L MCV 85.9 MCH 30.1 MCHC 35.1 RDW 12.4 Plt Count 251 MPV 9.7 Immature Gran % Neutrophils % Lymphocytes % Monocytes % Eosinophils % Basophils % Absolute Neutrophils Absolute Lymphocytes Absolute Monocytes Absolute Eosinophils Absolute Basophils Sodium Potassium Chloride Carbon Dioxide Anion Gap BUN Creatinine Estimated GFR/1.73 m2 Glucose Lactate 2.6 H Calcium Magnesium Total Bilirubin AST ALT Alkaline Phosphatase Creatine Kinase 67 Troponin I Total Protein Albumin TSH Urine Color Urine Clarity Urine pH Ur Specific [place] Urine Protein Urine Ketones Urine Blood Urine Nitrite Urine Bilirubin Urine Urobilinogen Ur Leukocyte Esterase Urine RBC Urine WBC Ur Epithelial Cells Urine Crystals Urine Bacteria Urine Casts Urine Mucus Urine Other Ur Culture Indicated? Urine Glucose Urine Opiates Screen Urine Methadone Screen Ur Barbiturates Screen Ur Tricyclics Screen Ur Amphetamines Screen U Benzodiazepines Scrn Urine Cocaine Screen Ur THC Screen 09/02/18 09/01/18 09/01/18 06:30 22:45 22:45 WBC RBC Hgb Hct MCV MCH MCHC RDW Plt Count MPV Immature Gran % Neutrophils % Lymphocytes % Monocytes % Eosinophils % Basophils % Absolute Neutrophils Absolute Lymphocytes Absolute Monocytes Absolute Eosinophils Absolute Basophils Sodium 142 Potassium 3.1 L Chloride 111 H Carbon Dioxide 18.0 L Anion Gap 13.0 H BUN 7 Creatinine 0.79 Estimated GFR/1.73 m2 >= 60.00 Glucose 87 Lactate Calcium 8.1 L Magnesium Total Bilirubin AST ALT Alkaline Phosphatase Creatine Kinase Troponin I Total Protein Albumin TSH Urine Color Yellow Urine Clarity Clear Urine pH 6.5 Ur Specific [place] 1.025 Urine Protein 30 H Urine Ketones Negative Urine Blood Large H Urine Nitrite Negative Urine Bilirubin Negative Urine Urobilinogen 2.0 H Ur Leukocyte Esterase Trace H Urine RBC >50 H Urine WBC 3-5 Ur Epithelial Cells Negative Urine Crystals Negative Urine Bacteria Negative Urine Casts Negative Urine Mucus Negative Urine Other Few renal Ur Culture Indicated? Yes Urine Glucose Negative Urine Opiates Screen Negative Urine Methadone Screen Negative Ur Barbiturates Screen Negative Ur Tricyclics Screen Negative Ur Amphetamines Screen Negative U Benzodiazepines Scrn Negative Urine Cocaine Screen Negative Ur THC Screen Negative 09/01/18 09/01/18 09/01/18 20:00 20:00 20:00 WBC 11.68 H RBC 4.71 Hgb 14.1 Hct 39.7 MCV 84.3 MCH 29.9 MCHC 35.5 RDW 12.4 Plt Count 278 MPV 9.7 Immature Gran % 0.3 Neutrophils % 66.7 Lymphocytes % 20.1 Monocytes % 11.6 Eosinophils % 1.1 Basophils % 0.2 Absolute Neutrophils 7.79 H Absolute Lymphocytes 2.35 Absolute Monocytes 1.35 H Absolute Eosinophils 0.13 Absolute Basophils 0.02 Sodium Potassium Chloride Carbon Dioxide Anion Gap BUN Creatinine Estimated GFR/1.73 m2 Glucose Lactate Calcium Magnesium Total Bilirubin AST ALT Alkaline Phosphatase Creatine Kinase Troponin I < 0.05 Total Protein Albumin TSH 2.24 Urine Color Urine Clarity Urine pH Ur Specific [place] Urine Protein Urine Ketones Urine Blood Urine Nitrite Urine Bilirubin Urine Urobilinogen Ur Leukocyte Esterase Urine RBC Urine WBC Ur Epithelial Cells Urine Crystals Urine Bacteria Urine Casts Urine Mucus Urine Other Ur Culture Indicated? Urine Glucose Urine Opiates Screen Urine Methadone Screen Ur Barbiturates Screen Ur Tricyclics Screen Ur Amphetamines Screen U Benzodiazepines Scrn Urine Cocaine Screen Ur THC Screen 09/01/18 20:00 WBC RBC Hgb Hct MCV MCH MCHC RDW Plt Count MPV Immature Gran % Neutrophils % Lymphocytes % Monocytes % Eosinophils % Basophils % Absolute Neutrophils Absolute Lymphocytes Absolute Monocytes Absolute Eosinophils Absolute Basophils Sodium 141 Potassium 3.2 L Chloride 105 Carbon Dioxide 19.3 L Anion Gap 16.7 H BUN 10 Creatinine 1.04 H Estimated GFR/1.73 m2 >= 60.00 Glucose 117 H Lactate Calcium 9.2 Magnesium 2.4 Total Bilirubin 0.4 AST 36 ALT 71 Alkaline Phosphatase 54 Creatine Kinase Troponin I Total Protein 7.8 Albumin 3.8 TSH Urine Color Urine Clarity Urine pH Ur Specific [place] Urine Protein Urine Ketones Urine Blood Urine Nitrite Urine Bilirubin Urine Urobilinogen Ur Leukocyte Esterase Urine RBC Urine WBC Ur Epithelial Cells Urine Crystals Urine Bacteria Urine Casts Urine Mucus Urine Other Ur Culture Indicated? Urine Glucose Urine Opiates Screen Urine Methadone Screen Ur Barbiturates Screen Ur Tricyclics Screen Ur Amphetamines Screen U Benzodiazepines Scrn Urine Cocaine Screen Ur THC Screen Preliminary micro results at discharge 09/01/18 22:45 Urine Culture - Preliminary Urine - Reflex from [facility] Social History Smoking/Tobacco Use Status: Never Alcohol Intake: never Drug use: Never Substance use type: does not use Do you feel safe at home: Yes Do you feel safe in your relationship?: Yes
--- NOTE | 2018-09-02 16:00 | DSE_ITS ---
Date of service: 09/02/18 Time of Service: 15:55 DS: Diagnosis Discharge Diagnosis (1) Generalized tonic-clonic seizure: Status: Acute (2) Tongue laceration: Status: Acute (3) Hypokalemia: Status: Acute (4) Hypertension: Status: Chronic (5) Depression: Status: Chronic (6) Migraine headache: Status: Chronic (7) Hyperlipidemia: Status: Chronic (8) Asthma: Status: Chronic (9) Fibromyalgia: Status: Chronic (10) Tremor: Status: Chronic Discharge Plan Disposition Patient Disposition: HOME Condition: Stable Discharge Details Reason For Visit: SEIZURE ACTIVITY Admit Date/Time: 09/01/18 21:52 Admit Provider: Pablo Esquivel Attending Provider: Pablo Esquivel Primary Care Provider: [facility] Hospital Course Hospital Course: Ms Levy is a 32 year old female with PMHx of seizure d/o under the care of [facility] neurology with change of therapy from depakote to topamax in June of 2018 who experienced two tonic-clonic seizure events yesterday (09/01/18). She was treated in [place] ED after the first seizure and discharged home, only to have a seizure happen again 4 hours later. She received IV keppra at [facility] ED after her 2nd seizure and was observed on [facility] hospitalist service overnight without recurrence of seizures. Her topamax dose was increased, with the recommendation of [facility] neurology, from 100 mg daily to 100 mg PO BID. She did have a quivering motion around her upper lip noted with intact mental status. We obtained an EEG on the patient while she was experiencing this movement. Contact was made with [facility] neurology to establish a plan for follow up. It is felt that the patient is safe for discharge home today with the increased dose of topamax (100 mg PO BID) and follow up appointment with [facility] neurology tomorrow at 8 am. Home Meds and New Rx's Prescriptions: Continued cbd oil PO RF: 0 citalopram 20 mg tablet 20 mg PO DAILY RF: 0 Aerochamber MV spacer .ROUTE .MEDSUPPLY Qty: 1 RF: 0 albuterol sulfate 90 mcg/actuation aerosol powdr breath activated 1 inh IH Q4H RF: 0 iud Intrauterine RF: 0 Flovent HFA 110 mcg/actuation HFA aerosol inhaler 2 puff IH BID RF: 0 Excedrin Migraine 250-250-65 mg tablet 2 tab PO ONCE PRNRF: 0 ibuprofen [Advil] 200 mg tablet 600 mg PO ONCE PRNRF: 0 topiramate 100 mg Tablet 100 mg PO BID RF: 0 hydrochlorothiazide 12.5 mg Capsule 12.5 mg PO DAILY RF: 0 aripiprazole 2 mg Tablet 2 mg PO DAILY RF: 0 gabapentin 600 MG tablet 600 mg PO BID RF: 0 atorvastatin [Lipitor] 20 MG tablet 20 mg PO HS RF: 0 lorazepam 0.5 MG tablet 0.5 mg PO PRN PRNRF: 0 Discharge Instructions Instructions: Topiramate (By mouth), Recurrent Seizures in Adults (DC) Additional Instructions: Return to the hospital with any more tonic clonic seizures. Follow up with [facility] neurology tomorrow morning at 8 am. Activity:: Activity as Tolerated Equipment/Supplies:: No Equipment Needed Diet:: As Tolerated Discharge Orders Discharge Orders: Discharge Order (Routine); Ordered 09/02/18 Ordered By: Lou Flynn Exam Narrative Exam Narrative: General: very pleasant obese female, A&Ox3, tired HEENT: EOMI, MMM, does have a tongue bite on the right side of her tongue Heart: RRR, no m/r/g Lungs: CTAB GI: abdomen is soft, nontender, nondistended Extremities: no e/c/c BLE's DS: Data Vitals/I&O Vitals and I&O: Vital Signs Temperature 37.6 C H 09/02/18 08:30 Temperature Source Temporal Artery Scan 09/02/18 08:30 Pulse 58 L 09/02/18 12:01 Pulse 64 09/02/18 13:00 Respiratory Rate 21 09/02/18 13:00 Respiratory Effort Non-Labored 09/01/18 23:10 Respiratory Depth Normal 09/01/18 23:10 Respiratory Pattern Normal 09/01/18 23:10 Blood Pressure 121/66 09/02/18 12:01 Blood Pressure Mean 80 09/02/18 12:01 Blood Pressure Position Supine 09/01/18 23:10 Pulse Oximetry 95 09/02/18 06:01 Oxygen Delivery Method Room Air 09/02/18 03:00 Oxygen Flow Rate 0 09/02/18 03:00 Pain Level 0 09/02/18 03:00 Intake & Output 09/01/18 09/02/18 09/02/18 23:59 11:59 23:59 Intake Total 700 / 700 1502.5 / 1502.5 Output Total 675 / 675 Balance 700 / 700 827.5 / 827.5 Weight 85.8 kg 86.7 kg Intake: IV 600 / 600 1252.5 / 1252.5 Oral 100 / 100 250 / 250 Output: Urine 575 / 575 Stool 100 / 100 Other: Comment mixed with stool. Stool Size Moderate Moderate Stool Characteristics Liquid Liquid Voiding Methods Bedside Commode Completed studies during hospitalization [Text1]: CT head: Negative head CT. Labs on day of discharge: Labs from last 24 hours 09/02/18 09/02/18 09/02/18 09:50 09:50 06:30 WBC 9.48 RBC 4.18 Hgb 12.6 Hct 35.9 L MCV 85.9 MCH 30.1 MCHC 35.1 RDW 12.4 Plt Count 251 MPV 9.7 Immature Gran % Neutrophils % Lymphocytes % Monocytes % Eosinophils % Basophils % Absolute Neutrophils Absolute Lymphocytes Absolute Monocytes Absolute Eosinophils Absolute Basophils Sodium Potassium Chloride Carbon Dioxide Anion Gap BUN Creatinine Estimated GFR/1.73 m2 Glucose Lactate 2.6 H Calcium Magnesium Total Bilirubin AST ALT Alkaline Phosphatase Creatine Kinase 67 Troponin I Total Protein Albumin TSH Urine Color Urine Clarity Urine pH Ur Specific [place] Urine Protein Urine Ketones Urine Blood Urine Nitrite Urine Bilirubin Urine Urobilinogen Ur Leukocyte Esterase Urine RBC Urine WBC Ur Epithelial Cells Urine Crystals Urine Bacteria Urine Casts Urine Mucus Urine Other Ur Culture Indicated? Urine Glucose Urine Opiates Screen Urine Methadone Screen Ur Barbiturates Screen Ur Tricyclics Screen Ur Amphetamines Screen U Benzodiazepines Scrn Urine Cocaine Screen Ur THC Screen 09/02/18 09/01/18 09/01/18 06:30 22:45 22:45 WBC RBC Hgb Hct MCV MCH MCHC RDW Plt Count MPV Immature Gran % Neutrophils % Lymphocytes % Monocytes % Eosinophils % Basophils % Absolute Neutrophils Absolute Lymphocytes Absolute Monocytes Absolute Eosinophils Absolute Basophils Sodium 142 Potassium 3.1 L Chloride 111 H Carbon Dioxide 18.0 L Anion Gap 13.0 H BUN 7 Creatinine 0.79 Estimated GFR/1.73 m2 >= 60.00 Glucose 87 Lactate Calcium 8.1 L Magnesium Total Bilirubin AST ALT Alkaline Phosphatase Creatine Kinase Troponin I Total Protein Albumin TSH Urine Color Yellow Urine Clarity Clear Urine pH 6.5 Ur Specific [place] 1.025 Urine Protein 30 H Urine Ketones Negative Urine Blood Large H Urine Nitrite Negative Urine Bilirubin Negative Urine Urobilinogen 2.0 H Ur Leukocyte Esterase Trace H Urine RBC >50 H Urine WBC 3-5 Ur Epithelial Cells Negative Urine Crystals Negative Urine Bacteria Negative Urine Casts Negative Urine Mucus Negative Urine Other Few renal Ur Culture Indicated? Yes Urine Glucose Negative Urine Opiates Screen Negative Urine Methadone Screen Negative Ur Barbiturates Screen Negative Ur Tricyclics Screen Negative Ur Amphetamines Screen Negative U Benzodiazepines Scrn Negative Urine Cocaine Screen Negative Ur THC Screen Negative 09/01/18 09/01/18 09/01/18 20:00 20:00 20:00 WBC 11.68 H RBC 4.71 Hgb 14.1 Hct 39.7 MCV 84.3 MCH 29.9 MCHC 35.5 RDW 12.4 Plt Count 278 MPV 9.7 Immature Gran % 0.3 Neutrophils % 66.7 Lymphocytes % 20.1 Monocytes % 11.6 Eosinophils % 1.1 Basophils % 0.2 Absolute Neutrophils 7.79 H Absolute Lymphocytes 2.35 Absolute Monocytes 1.35 H Absolute Eosinophils 0.13 Absolute Basophils 0.02 Sodium Potassium Chloride Carbon Dioxide Anion Gap BUN Creatinine Estimated GFR/1.73 m2 Glucose Lactate Calcium Magnesium Total Bilirubin AST ALT Alkaline Phosphatase Creatine Kinase Troponin I < 0.05 Total Protein Albumin TSH 2.24 Urine Color Urine Clarity Urine pH Ur Specific [place] Urine Protein Urine Ketones Urine Blood Urine Nitrite Urine Bilirubin Urine Urobilinogen Ur Leukocyte Esterase Urine RBC Urine WBC Ur Epithelial Cells Urine Crystals Urine Bacteria Urine Casts Urine Mucus Urine Other Ur Culture Indicated? Urine Glucose Urine Opiates Screen Urine Methadone Screen Ur Barbiturates Screen Ur Tricyclics Screen Ur Amphetamines Screen U Benzodiazepines Scrn Urine Cocaine Screen Ur THC Screen 09/01/18 20:00 WBC RBC Hgb Hct MCV MCH MCHC RDW Plt Count MPV Immature Gran % Neutrophils % Lymphocytes % Monocytes % Eosinophils % Basophils % Absolute Neutrophils Absolute Lymphocytes Absolute Monocytes Absolute Eosinophils Absolute Basophils Sodium 141 Potassium 3.2 L Chloride 105 Carbon Dioxide 19.3 L Anion Gap 16.7 H BUN 10 Creatinine 1.04 H Estimated GFR/1.73 m2 >= 60.00 Glucose 117 H Lactate Calcium 9.2 Magnesium 2.4 Total Bilirubin 0.4 AST 36 ALT 71 Alkaline Phosphatase 54 Creatine Kinase Troponin I Total Protein 7.8 Albumin 3.8 TSH Urine Color Urine Clarity Urine pH Ur Specific [place] Urine Protein Urine Ketones Urine Blood Urine Nitrite Urine Bilirubin Urine Urobilinogen Ur Leukocyte Esterase Urine RBC Urine WBC Ur Epithelial Cells Urine Crystals Urine Bacteria Urine Casts Urine Mucus Urine Other Ur Culture Indicated? Urine Glucose Urine Opiates Screen Urine Methadone Screen Ur Barbiturates Screen Ur Tricyclics Screen Ur Amphetamines Screen U Benzodiazepines Scrn Urine Cocaine Screen Ur THC Screen Preliminary micro results at discharge 09/01/18 22:45 Urine Culture - Preliminary Urine - Reflex from [facility] Social History Smoking/Tobacco Use Status: Never Alcohol Intake: never Drug use: Never Substance use type: does not use Do you feel safe at home: Yes Do you feel safe in your relationship?: Yes
--- NOTE | 2018-09-02 16:27 | INITIAL_ITS ---
Care Management Initial Assess REASON FOR HOSPITALIZATION:: Seizure Activity PAST MEDICAL HISTORY/PAST SURGICAL HISTORY:: Hyperlipidemia, Major depressive disorder, essential hypertension, hypokalemia, migraine, asthma, fibromyalgia, tremor, seizures PREVIOUS FUNCTIONAL STATUS/SOCIAL/FAMILY SUPPORTS:: Bessie resides in [place] with her and their children. She had [facility] Moderate needs supports and relys on her and mother for help with some ADLs. CURRENT FUNCTIONAL STATUS:: Bessie is lying in bed, her mother at her bedside. She presents with low affect and her mother answers most questions directed at Bessie. ADVANCE DIRECTIVES:: None on file at [facility]. Has patient been provided with information about the portal?: Yes Did the patient sign up for the portal?: No CODE STATUS:: Full Code INSURANCE COVERAGE / FINANCIAL ISSUES:: [employer] CURRENT HOME/COMMUNITY SERVICES/EQUIPMENT:: [employer] Moderate Needs PRIMARY CARE PHYSICIAN:: Comfort Urban POTENTIAL DISCHARGE NEEDS:: Follow up appointment with PCP, neurologist. PATIENT/FAMILY EDUCATION NEEDS:: Review discharge instructions, discuss Ask Me Three. ANTICIPATED BARRIERS TO DISCHARGE:: None identified. TRANSPORTATION:: Via private vehicle with her family. PLAN:: Bessie will discharge home when ready per MD. She will follow up with her PCP, Neurologist and plan of care as prescribed. She will transport via private vehicle with family.
[2018-09-02 16:30] LABS: Lactate-non-spesis 1.4 mmol/l (0.6-1.4)
[2018-09-02 16:42] LABS: Anion Gap 11.5 mmol/L (3-11); BUN 8 mg/dL (7-18); CO2 17.5 mmol/L (21.0-32.0); CREATININE 0.94 mg/dL (0.55-1.02); Calcium 8.3 mg/dL (8.5-10.1); Chloride 113 mmol/L (98-107); Glucose 100 mg/dL (70-100); Sodium 142 mmol/L (136-145)
--- NOTE | 2018-09-08 13:36 | PDOC.EEG ---
EEG: [facility] Department of Neurology INPATIENT EEG REPORT Date of Recording: Interpreting Physician: Dr. Aundrea Lee Reason for study: Ms. Levy is a 32 year-old woman with a history of seizures who was admitted for breakthrough seizure activity. Current Medications: Home Medications Medication Instructions Recorded Confirmed Type atorvastatin [Lipitor] 20 mg PO HS 06/25/17 09/01/18 History gabapentin 600 mg PO BID 06/25/17 09/01/18 History lorazepam 0.5 mg PO PRN PRN 06/25/17 09/01/18 History albuterol sulfate 90 mcg/actuation 1 inh IH Q4H 05/29/18 09/01/18 History breath activated powder inhaler [id number] 250 2 tab PO ONCE PRN tab 05/29/18 09/01/18 History mg-250 mg-65 mg tablet cbd oil PO 05/29/18 05/29/18 History citalopram 20 mg tablet 20 mg PO DAILY 05/29/18 09/01/18 History fluticasone propionate 110 2 puff IH BID 05/29/18 09/01/18 History mcg/actuation HFA aerosol inhaler ibuprofen 200 mg tablet 600 mg PO ONCE PRN tab 05/29/18 09/01/18 History inhalational spacing device #1 each 05/29/18 09/01/18 History iud INTRAUTERINE 05/29/18 05/29/18 History aripiprazole 2 mg PO DAILY 09/01/18 09/01/18 History hydrochlorothiazide 12.5 mg PO DAILY 09/01/18 09/01/18 History topiramate 100 mg PO BID 09/01/18 09/01/18 History METHODS: A 21 channel digitized electroencephalogram was performed in the [facility] Med/Surg Floor or ICU. The 10/20 international system of electrode placement was used and bipolar and referential electrode montages were recorded. In addition to EEG the patient was monitored for EKG and lateral/vertical eye movements. Activation procedures of photic stimulation and hyperventilation were performed if applicable. Video was used during activation procedures and during events where applicable. The duration of the recording was 30 minutes. DESCRIPTION OF EEG: The patient was noted to be awake, drowsy, and asleep during the recording. During maximal wakefulness a 9-Hz posterior background rhythm was present which was well-modulated, symmetrical, reactive to eye opening, and of moderate voltage. With eye opening the background activity changed to a low voltage mixture of alpha, beta, and occasional theta range frequencies. Faster frequencies were present in the bilateral anterior head regions. There was a normal anterior-posterior voltage gradient. During drowsiness, there was attenuation of the posterior dominant background rhythm and vertex waves. Stage II sleep was present with symmetrical sleep spindles, K-complexes, and vertex waves. During drowsiness at 14:12:34, there was a single right frontal, moderate-amplitude, spike-wave at F4 during a burst of generalized theta slowing attributed to drowsiness. There was minimal field effect into Fp2 only. This was concerning for, but not definitively, epileptic. Activating Procedures: Photic stimulation was performed but unreliable given patient was asleep. There was no posterior driving seen. Hyperventilation was performed with fair effort and produced no physiological slowing of the background. EKG: EKG revealed normal sinus rhythm. INTERPRETATION: This EEG is borderline abnormal for a single right frontal spike-wave at F4 during a burst of generalized theta slowing attributed to drowsiness. There was minimal field effect into Fp2 only. PRIOR EEG: -August 2018 at [facility]: normal awake study. 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 Clinical correlation is advised. Aundrea Lee MD
--- NOTE | 2018-09-08 13:44 | PDOC.EEG_ITS ---
EEG: [facility] Department of Neurology INPATIENT EEG REPORT Date of Recording: Interpreting Physician: Dr. Aundrea Lee Reason for study: Ms. Levy is a 32 year-old woman with a history of seizures who was admitted for breakthrough seizure activity. Current Medications: Home Medications Medication Instructions Recorded Confirmed Type atorvastatin [Lipitor] 20 mg PO HS 06/25/17 09/01/18 History gabapentin 600 mg PO BID 06/25/17 09/01/18 History lorazepam 0.5 mg PO PRN PRN 06/25/17 09/01/18 History albuterol sulfate 90 mcg/actuation 1 inh IH Q4H 05/29/18 09/01/18 History breath activated powder inhaler rvybtxa-ihwcmijrvpdzw-nmuxdjmu 250 2 tab PO ONCE PRN tab 05/29/18 09/01/18 History mg-250 mg-65 mg tablet cbd oil PO 05/29/18 05/29/18 History citalopram 20 mg tablet 20 mg PO DAILY 05/29/18 09/01/18 History fluticasone propionate 110 2 puff IH BID 05/29/18 09/01/18 History mcg/actuation HFA aerosol inhaler ibuprofen 200 mg tablet 600 mg PO ONCE PRN tab 05/29/18 09/01/18 History inhalational spacing device #1 each 05/29/18 09/01/18 History iud INTRAUTERINE 05/29/18 05/29/18 History aripiprazole 2 mg PO DAILY 09/01/18 09/01/18 History hydrochlorothiazide 12.5 mg PO DAILY 09/01/18 09/01/18 History topiramate 100 mg PO BID 09/01/18 09/01/18 History METHODS: A 21 channel digitized electroencephalogram was performed in the [facility] Med/Surg Floor or ICU. The 10/20 international system of electrode placement was used and bipolar and referential electrode montages were recorded. In addition to EEG the patient was monitored for EKG and lateral/vertical eye movements. Activation procedures of photic stimulation and hyperventilation were performed if applicable. Video was used during activation procedures and during events where applicable. The duration of the recording was 30 minutes. DESCRIPTION OF EEG: The patient was noted to be awake, drowsy, and asleep during the recording. During maximal wakefulness a 9-Hz posterior background rhythm was present which was well-modulated, symmetrical, reactive to eye opening, and of moderate voltage. With eye opening the background activity changed to a low voltage mixture of alpha, beta, and occasional theta range frequencies. Faster frequencies were present in the bilateral anterior head regions. There was a normal anterior-posterior voltage gradient. During drowsiness, there was attenuation of the posterior dominant background rhythm and vertex waves. Stage II sleep was present with symmetrical sleep spindles, K-complexes, and vertex waves. During drowsiness at 14:12:34, there was a single right frontal, moderate- amplitude, spike-wave at F4 during a burst of generalized theta slowing attributed to drowsiness. There was minimal field effect into Fp2 only. This was concerning for, but not definitively, epileptic. Activating Procedures: Photic stimulation was performed but unreliable given patient was asleep. There was no posterior driving seen. Hyperventilation was performed with fair effort and produced no physiological slowing of the background. EKG: EKG revealed normal sinus rhythm. INTERPRETATION: This EEG is borderline abnormal for a single right frontal spike-wave at F4 during a burst of generalized theta slowing attributed to drowsiness. There was minimal field effect into Fp2 only. PRIOR EEG: -August 2018 at [facility] [place]: normal awake study. 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 Clinical correlation is advised. Aundrea Lee MD
== END 2018-09-02 17:30 | disposition home or self-care (01) ==
LOC: ER 21:22 → ICU 23:13
PROVIDERS: Admitting Provider Internal Medicine; Emergency Provider Student in an Organized Health Care Education/Training Program; PCP Nurse Practitioner Family; Visit Provider Internal Medicine
DX: G40.89 Other seizures (principal); S01.512A Laceration without foreign body of oral cavity, initial encounter; S01.511A Laceration without foreign body of lip, initial encounter; E87.6 Hypokalemia; I10 Essential (primary) hypertension; F32.9 Major depressive disorder, single episode, unspecified; E78.5 Hyperlipidemia, unspecified; R25.1 Tremor, unspecified; X58.XXXA Exposure to other specified factors, initial encounter
CPT/HCPCS: 36415; 80048; 80053; 80307; 81025; 82550; 85027; 93005; 94640; 95819; 96361; 96374; 99217; 99220; 99285; 70450; 81003; 81015; 83605; 83735; 84443; 84484; 85025; 87086; 93010; G0378; J1953

== ENCOUNTER 2019-01-15 14:10 | Outpatient (REF) | payer MEDICAID, SELFPAY ==
[2019-01-15 14:29] LABS: Abs Immature Grans 0.02 k/cumm (0.0-0.09); Absolute Basophil Count 0.03 k/cumm (0.0-0.2); Absolute Eosinophil Count 0.16 k/cumm (0.0-0.7); Absolute Lymphocyte Count 2.04 k/cumm (1.2-3.4); Absolute Monocyte Count 1.07 k/cumm (0.11-0.7); Absolute Neutrophil Count 2.07 k/cumm (1.2-6.7); Basophils % 0.6; HCT 41.5 % (36.0-46.0); HGB 14.3 g/dL (12.0-15.5); Immature Grans % 0.4; Lymphocytes % 37.8; Mean Corp. HGB Concentration 34.5 g/dL (32.0-36.0); Mean Corpuscular Hemoglobin 30.4 pg (27.0-33.0); Mean Corpuscular Volume 88.1 fL (80-95); Mean Platelet Volume 10.3 fL (8.0-11.0); Monocytes % 19.9; Neutrophils % 38.3; Platelet Count 229 x1000/uL (130-400); RBC 4.71 m/cumm (4.00-5.20); RBC Distribution Width 12.3 % (11.7-14.6); White Blood Cell Count 5.39 k/cumm (4.4-10.8)
[2019-01-15 14:38] LABS: ALT 26 U/L (14-59); AST 18 U/L (15-37)
[2019-01-15 14:52] LABS: VALPROIC ACID 56.4 ug/mL (50-100)
== END 2019-01-15 14:30 ==
LOC: NCHCN 14:10
PROVIDERS: PCP Nurse Practitioner Family; Visit Provider Nurse Practitioner Psychiatric/Mental Health
DX: Z51.81 Encounter for therapeutic drug level monitoring (principal)
CPT/HCPCS: 80164; 84450; 84460; 85025

== ENCOUNTER 2019-07-28 01:28 | Outpatient (CLI) | payer MEDICAID, SELFPAY ==
[2019-07-28 10:13] LABS: HCT 40.5 % (36.0-46.0); HGB 14.1 g/dL (12.0-15.5); Mean Corp. HGB Concentration 34.8 g/dL (32.0-36.0); Mean Corpuscular Hemoglobin 30.4 pg (27.0-33.0); Mean Corpuscular Volume 87.3 fL (80-95); Mean Platelet Volume 9.3 fL (8.0-11.0); Platelet Count 294 x1000/uL (130-400); RBC 4.64 m/cumm (4.00-5.20); RBC Distribution Width 12.5 % (11.7-14.6); White Blood Cell Count 8.29 k/cumm (4.4-10.8)
[2019-07-28 10:58] LABS: Anion Gap 9.7 mmol/L (3-11); BUN 13 mg/dL (7-18); CO2 22.3 mmol/L (21.0-32.0); CREATININE 0.71 mg/dL (0.55-1.02); Calcium 8.9 mg/dL (8.5-10.1); Chloride 106 mmol/L (98-107); Glucose 80 mg/dL (74-106); Potassium 4.4 mmol/L (3.5-5.1); Sodium 138 mmol/L (136-145)
== END 2019-07-28 01:48 ==
PROVIDERS: PCP Nurse Practitioner Family; Visit Provider Obstetrics & Gynecology Gynecology
DX: Z30.2 Encounter for sterilization (principal); Z01.818 Encounter for other preprocedural examination; Z01.812 Encounter for preprocedural laboratory examination
CPT/HCPCS: 36415; 80048; 85027; 86850; 86900; 86901

== ENCOUNTER 2019-08-03 07:49 | Outpatient (CLI) | payer MEDICAID, SELFPAY ==
[2019-08-03 19:58] LABS: COVID-19 RT-PCR UVMMC Result Negative (Negative)
== END 2019-08-03 08:09 ==
PROVIDERS: PCP Nurse Practitioner Family; Visit Provider Obstetrics & Gynecology Gynecology
DX: Z11.59 Encounter for screening for other viral diseases (principal)
CPT/HCPCS: U0003

== ENCOUNTER 2019-08-05 06:58 | Day surgery (SDC) | payer MEDICAID, SELFPAY ==
[2019-08-05 07:00] VITALS: BP 119/75; PULSE 60; RESP 18; TEMP 36.6; O2SAT 99
[2019-08-05] MEDS: Lactated Ringers 1,000 ML 125 ML IV (07:38)
--- NOTE | 2019-08-05 09:40 | FALL_PTH ---
PATIENT: Bessie Chacon LOC: [facility] U#:[id number] AGE/SX: 33/F ROOM: RE08/05/[address]: Cassie Garcia : 1985 BED: DIS: 08/05/2019 SPEC #: [id number] RECD: 08/05/19 11:27 STATUS: TERI REOxana #: [id number] FROILAN: 08/05/19 09:[address]: Cassie Garcia DEPT: Surgical Specimen RECD BY: Maria Del Carmen Souza ENTERED: 08/05/19 11:28 SP TYPE: Fall OTHR DR: Comfort Urban Tissues: 1 - FALLOPIAN TUBE (STERILIZATION) 2 - FALLOPIAN TUBE (STERILIZATION) Procedures: GROSS AND MICRO LEVEL 2 Comments: [id number]
[2019-08-05] MEDS: Bupivacaine 0.25% Pres-Free 30 ML VIAL (09:50)
[2019-08-05 10:08] VITALS: BP 116/57; PULSE 54; RESP 20; TEMP 36.3; O2SAT 100
[2019-08-05 10:13] VITALS: BP 104/49; PULSE 53; RESP 19; TEMP 36.3; O2SAT 100
--- NOTE | 2019-08-05 10:16 | W.PM.DSUDISC ---
Discharge Plan Discharge Details Attending Provider: Cassie Garcia Primary Care Provider: Comfort Urban Home Meds and New Rx's Prescriptions: No Action cbd oil PO RF: 0 citalopram 20 mg tablet 20 mg PO DAILY RF: 0 (DME) Aerochamber MV spacer See Dose Instructions .ROUTE .MEDSUPPLY Qty: 1 RF: 0 albuterol sulfate 90 mcg/actuation aerosol powdr breath activated 1 inh IH Q4H RF: 0 iud Intrauterine RF: 0 Flovent HFA 110 mcg/actuation HFA aerosol inhaler 2 puff IH BID RF: 0 meloxicam 15 mg tablet 15 mg PO DAILY RF: 0 divalproex [Depakote] 250 mg tablet,delayed release (DR/EC) 250 mg PO BID RF: 0 topiramate 100 mg Tablet 100 mg PO BID RF: 0 hydrochlorothiazide 12.5 mg Capsule 12.5 mg PO DAILY RF: 0 aripiprazole 2 mg Tablet 2 mg PO DAILY RF: 0 atorvastatin [Lipitor] 20 MG tablet 20 mg PO HS RF: 0 lorazepam 0.5 MG tablet 0.5 mg PO PRN PRNRF: 0 DS: Diagnosis Discharge Diagnosis (1) Hx of tubal ligation: Status: Chronic
[2019-08-05 10:18] VITALS: BP 95/52; PULSE 49; RESP 23; TEMP 36.3; O2SAT 98
[2019-08-05 10:33] VITALS: BP 101/51; PULSE 50; RESP 23; TEMP 36.1; O2SAT 98
[2019-08-05 11:15] VITALS: BP 106/57; RESP 16; TEMP 36.1; O2SAT 97
[2019-08-05] MEDS: oxyCODONE 5 mg/Acetaminophen 325 mg TAB PO (11:21)
--- NOTE | 2019-08-05 15:30 | ROE_ITS ---
Date of service: 08/05/19 Time of Service: 16:24 Operative Note Operative Note DATE OF PROCEDURE: 08/05/19 PRE-OP DIAGNOSIS: desires sterilization POST-OP DIAGNOSIS: same PROCEDURE: Laparoscopic bilateral salpingectomy SURGEON: Cassie Garcia STREAM CONTROL OFFICER: Nadege Poole ANESTHESIA: GETA ESTIMATED BLOOD LOSS: 0 PATHOLOGY: other (Bilateral fallopian tubes) COMPLICATIONS: None Patient was transported to: PACU Patient's condition: stable Indications: Patient is a 33-year-old G4, P2 female who desires permanent sterilization. Patient is sure that she desires no further pregnancies for a variety of reasons including her health, advanced maternal age, and satisfaction with the size of her family. Findings: Normal appearing fallopian tubes, ovaries and pelvis. Scan of the upper abdomen was also normal. Procedure Description: Description of procedure patient was taken to the operating room she is placed in the dorsal supine position and general endotracheal anesthesia was administered without difficulty. She was prepped and draped in the usual sterile fashion along with placement of SCDs. Surgical timeout was performed. Attention was turned to the patient's abdomen where the emery-umbilical fold was infiltrated with quarter percent Marcaine without epinephrine. A vertical skin incision was made in the umbilical fold with a scalpel and through this incision a varies needle was introduced and intra- abdominal placement confirmed by drop in the insufflation pressure of carbon dioxide. Patient was placed in Trendelenburg and under direct visualization to 5 mm trocar and sleeves were introduced approximately 2 cm medial to the superior anterior iliac crest. The right fallopian tube was identified followed out to its fimbriated end and sequentially clamped cauterized and transected beginning at the right uterine cornua and through the mesosalpinx effectively freeing the right fallopian tube which was then delivered through the 10 mm umbilical port. Technique was carried out on the left fallopian tube and to was delivered through the end umbilical port. Both surgery sites were noted to be hemostatic at the completion of the procedure. Under direct visualization both 5 mm lower trochars were removed pneumoperitoneum was reduced and a umbilical port was removed in a parallel fashion to the anterior abdominal wall. The rectus fascia was then reapproximated with a suture of 0 Vicryl and the skin of all port sites was reapproximated with a subcuticular closure of 4-0 Monocryl and sealed with skin glue. Patient was awakened extubated and transported recovery area in stable condition all sponge lap needle counts correct x2
== END 2019-08-05 13:40 | disposition home or self-care (01) ==
PROVIDERS: PCP Nurse Practitioner Family; Visit Provider Obstetrics & Gynecology Gynecology
PROC: (CPT 58661; principal; 2019-08-05 08:45)
DX: Z30.2 Encounter for sterilization (principal)
CPT/HCPCS: 58661; 88302; J1100; J1885; J2001; J2250; J2405

== ENCOUNTER 2020-10-21 21:24 | Emergency (ER) | payer MEDICAID, SELFPAY ==
[2020-10-21 21:22] VITALS: PULSE 95; RESP 17; TEMP 36.8; O2SAT 98
--- NOTE | 2020-10-21 21:30 | DI.CT_ITS ---
Exam(s) CT HEAD CERVICAL SPINE WO EXAM: CT HEAD CERVICAL SPINE WO CLINICAL HISTORY: struck head during seizure. TECHNIQUE: Imaging Protocol: Axial computed tomography images with coronal and sagittal reformatted images were created and reviewed COMPARISON: CT CT HEAD WO from 09/01/2018 FINDINGS: BRAIN: There are no skull fractures nor fluid in the visualized paranasal sinuses. There is no evidence of intracranial hemorrhage, mass effect, or shift of midline structures. There are no extra-axial fluid collections. The ventricles are not enlarged or shifted and there is no blo od within the ventricular system nor within the basal cisterns. CERVICAL SPINE: There is no evidence of fracture nor listhesis. No significant prevertebral soft tissue swelling. Developmental discontinuity in the anterior arch of C1 is noted, unchanged. Some disc space narrowing at C5-6 and C6-7 levels noted. Mild anterolisthesis of C4 upon C5 noted, r elated to facet joint arthropathy. No listhesis at C5-6 and C6-7 levels. There is no significant facet joint malalignment. No significant osseous lesions evident. IMPRESSION: No acute intracranial findings on this noninfused CT scan of the brain. No evidence of cervical spine fracture, malalignment, nor acute compromise of the cervical spinal can al. Degenerative disc disease chronic findings as described above. RADIATION DOSE DELIVERED: 1,379.94mGy.cm Total DLP DATA REPOSITORY: All CT scans at this facility are submitted to the National Radiology Data Registry (NRDR) Dose Index Registry (DIR) with the [employer] (A[employer]). RADIATION OPTIMIZATION: All CT scans at this facility use at least one of these dose optimization te chniques: automated exposure control; mA and/or kV adjustment per patient size (includes targeted exa ms where dose is matched to clinical indication); or iterative reconstruction.
[2020-10-21] MEDS: Normal Saline 1,000 ML 1000 ML IV (21:48)
[2020-10-21 21:52] LABS: Abs Immature Grans 0.04 10^3/uL (0.0-0.06); Absolute Basophil Count 0.08 10^3/uL (0.0-0.2); Absolute Eosinophil Count 0.58 10^3/uL (0.0-0.7); Absolute Lymphocyte Count 4.32 10^3/uL (1.2-3.4); Absolute Monocyte Count 1.28 10^3/uL (0.1-0.8); Absolute Neutrophil Count 4.01 10^3/uL (1.2-6.7); Basophils % 0.8; Eosinophils % 5.6; HCT 43.9 % (36.0-46.0); HGB 14.9 g/dL (11.2-15.7); Immature Grans % 0.4; Lymphocytes % 41.9; MCH 29.5 pg (27.0-33.0); MCHC 33.9 % (32.0-36.0); MCV 86.9 fL (80-95); MPV 9.6 fL (8.0-11.0); Monocytes % 12.4; Neutrophils % 38.9; Nucleated RBC 0 %; Platelet Count 291 10^3/uL (130-400); RBC 5.05 10^6/uL (3.93-5.22); RDW 11.7 % (11.7-14.6); RDW-SD 37.2 fL; WBC 10.31 10^3/uL (4.4-10.8)
[2020-10-21 21:54] VITALS: BP 116/60; PULSE 75; PULSE 85; O2SAT 97
[2020-10-21 21:55] VITALS: PULSE 84; O2SAT 97
[2020-10-21 21:55] LABS: VALPROIC ACID 30.9 ug/mL (50-100)
[2020-10-21 21:59] LABS: PTT Activated 19.4 sec (21.0-27.5); Prothrombin Time 9.9 sec (9.3-11.0)
[2020-10-21 22:02] LABS: ALT 40 U/L (14-59); AST 24 U/L (15-37); Albumin 3.9 g/dL (3.4-5.0); Alkaline Phosphatase 49 U/L (46-116); Anion Gap 15.3 mmol/L (3-11); BUN 14 mg/dL (7-18); Bilirubin, Total 0.3 mg/dL (0.2-1.0); CO2 18.7 mmol/L (21.0-32.0); CREATININE 0.9 mg/dL (0.55-1.02); Calcium 9.3 mg/dL (8.5-10.1); Chloride 107 mmol/L (98-107); Glucose 93 mg/dL (74-106); Magnesium 1.9 mg/dL (1.8-2.4); Potassium 3.8 mmol/L (3.5-5.1); Sodium 141 mmol/L (136-145); TSH (W/Ref FT4) 5.99 uIU/mL (0.36-3.74)
--- NOTE | 2020-10-21 22:09 | ED.GENADUL_ITS ---
Discharge Plan Disposition Patient Disposition: HOME Condition: Good Discharge Details Clinical Impression: Generalized tonic-clonic seizure Primary Care Provider: Com[facility] ED Provider: Peter Leos Home Meds and New Rx's Prescriptions: Continued cbd oil PO RF: 0 citalopram 20 mg tablet 20 mg PO DAILY RF: 0 (DME) Aerochamber MV spacer See Dose Instructions .ROUTE .MEDSUPPLY Qty: 1 RF: 0 albuterol sulfate 90 mcg/actuation aerosol powdr breath activated 1 inh IH Q4H RF: 0 Flovent HFA 110 mcg/actuation HFA aerosol inhaler 2 puff IH BID RF: 0 meloxicam 15 mg tablet 15 mg PO DAILY RF: 0 divalproex [Depakote] 250 mg tablet,delayed release (DR/EC) 250 mg PO BID RF: 0 topiramate 100 mg Tablet 100 mg PO BID RF: 0 hydrochlorothiazide 12.5 mg Capsule 12.5 mg PO DAILY RF: 0 aripiprazole 2 mg Tablet 2 mg PO DAILY RF: 0 clindamycin HCl 150 mg capsule RF: 0 atorvastatin [Lipitor] 20 MG tablet 20 mg PO HS RF: 0 lorazepam 0.5 MG tablet 0.5 mg PO PRN PRNRF: 0 Discharge Instructions Instructions: Recurrent Seizures in Adults (ED) Additional Instructions: Be sure to take medication as prescribed and not to miss any of your seizure medication. Follow-up with primary care and/or neurology for possible medication adjustment. No dangerous activity such as driving, swimming, etc. until cleared by primary care or neurology. Return to ED for recurrent/prolonged seizure, neurologic change, severe headache, other concern. Referrals: Comfort Urban [Primary Care Provider] - Discharge Data Discharge Date/Time-TO BE ENTERED AT DEPARTURE: 10/22/20 03:55 Medical Decision Making <JORDY Anderson - Last Filed: 10/22/20 14:14> Patient is a pleasant 34-year-old female presenting today with chief complaint of seizure and head injury. Patient has a known seizure disorder. Her last known seizure was approximately 2 years ago. She reports that she has had intermittent headaches since this seizure. Patient states that she feels that she typically does not a postictal.. EMS states that she has been clearing since picking her up. This was a witnessed seizure. Had completed prior to EMS arrival. Patient denies any visual changes, nausea, focal deficit. On exam, patient appears slightly confused. She is answering my questions appropriately but is repeating herself very frequently. Her insight however seems appropriate. She is able to answer all my questions appropriately, is able to explain her neurologic care, medications, past seizure history. She does report that she had a minor headache I do not see any evidence to suggest a skull fracture at this time. Her neurologic exam is otherwise intact aside from your repetitive comments. No hemotympanum, pupils are equal round and reactive. She is moving all of her extremities. Will obtain baseline labs, CT of her head and neck based on the reported fall. We will also obtain a valproic acid level. Labs reviewed. No leukocytosis. Stable H&H. Patient does have an elevated anion gap of 15. TSH is elevated at 5.99, free T4 pending. Patient's valproic acid is subtherapeutic at 30.9. Will give extra dose of Depakote. Spoke with her , Nolan [phone]. He reports that she is on amoxicillin for dental pain. He also reports that she had endorses BRANNON prior ot seizure. He states that it has been a few years since her last seizure. FINDINGS: Brain: No intra or extra axial bleed. No edema or mass effect. The central herman structures and cortical ribbon are maintained. Cerebral ventricles: No hydrocephalus. Basal cisterns are patent. Paranasal sinuses: No mucosal thickening or fluid levels. Mastoid air cells: Mastoid air cells are clear. Orbital cavity: Unremarkable. Bones/joints: No significant bony abnormality. No fracture. Soft tissues: Unremarkable. IMPRESSION: No acute intracranial abnormality. No bleed. FINDINGS: Bones/joints: No acute fracture. There is a slight anterolisthesis C5 on 6. 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 Discs/Spinal canal/Neural foramina: There is degenerative disc disease at C5-C6 and C6-C7. Epidural space: No gross epidural hemorrhage. Prevertebral Space: No prevertebral soft tissue swelling. Lungs: No apical pneumothorax. Soft tissues: Unremarkable. IMPRESSION: 1. No acute fracture. 2. Slight anterolisthesis at C5-C6 likely degenerative in origin but if there is any further concern for ligamentous injury consider cervical MRI. Consulted with pharamacy regarding dosing. They agree with the plan to give 1 extra dose. Patient continues to improve although she does still have some minor repetition. Unclear if this is still in the postictal state versus possible concussion based on fall. Patient sleeping frequently. At the end of my shift, care transition to Dr. Leos with continued monitoring and reevaluation pending. Would like to see her clear more from her postictal state prior to being discharged to home. The patient reports that she did miss a dose of her Depakote, I do not know that an acute change in her medication dosing is warranted aside from taking this more regularly. However, would recommend close follow-up. At the time I a left the department, patient was in stable condition. <Peter Leos MD - Last Filed: 10/22/20 03:32> Patient signed out to me pending recovery of mental status after postictal state. She has been sleeping and has had no further seizures. Vital signs have been stable. She is awake and alert. Ambulated to the bathroom without difficulty. At this point she is requesting discharge. We will continue current medications and have her follow-up with primary care/neurology for possible adjustment of medications. Seizure precautions given. Discharged in good condition. HPI <JORDY Anderson - Last Filed: 10/22/20 14:14> General Mode of arrival: EMS . Date/Time Provider Initiated Documentation: 10/21/20 21:32 . Limitations to Documentation: altered mental status . Information obtained by: patient, EMS and RN notes reviewed . History of Present Illness 34 year old F presents to the emergency department with the chief complaint of seizure, described as similar to prior episodes, Quality is described as aching, and is localized to the head. Patient reports no radiation. Patient started experiencing this minute(s) and it has been now resolved. No relieving factors improve symptom(s), No exacerbating factors reported . Patient notes confusion (is clearing per EMS but is repeating fr equently), headaches and seizure; denies chest pain, diaphoresis, fever/chills, nausea/vomiting, rash, shortness of breath and weakness. Patient did receive the following treatments prior to arrival, none Related Data Home Medications Medication Instructions Recorded Confirmed atorvastatin [Lipitor] 20 mg PO HS 06/25/17 10/21/20 lorazepam 0.5 mg PO PRN PRN 06/25/17 10/21/20 albuterol sulfate 90 mcg/actuation 1 inh IH Q4H 05/29/18 10/21/20 breath activated powder inhaler cbd oil PO 05/29/18 08/19/19 citalopram 20 mg tablet 20 mg PO DAILY 05/29/18 10/21/20 fluticasone propionate 110 2 puff IH BID 05/29/18 10/21/20 mcg/actuation HFA aerosol inhaler inhalational spacing device #1 each 05/29/18 08/19/19 aripiprazole 2 mg PO DAILY 09/01/18 10/21/20 hydrochlorothiazide 12.5 mg PO DAILY 09/01/18 10/21/20 topiramate 100 mg PO BID 09/01/18 10/21/20 divalproex 250 mg tablet,delayed 250 mg PO BID 04/28/19 10/21/20 release meloxicam 15 mg tablet 15 mg PO DAILY 04/28/19 10/21/20 clindamycin HCl 10/21/20 10/21/20 Allergies Allergy/AdvReac Type Severity Reaction Status Date / Time No Known Allergies Allergy Unverified 10/21/20 21:32 General Stated Complaint: Seizure GM: 2 Review of Systems <JORDY Anderson - Last Filed: 10/22/20 14:14> Narrative: viability is limited secondary ot her current mental state although she does answer with what appears to be appropriate responses Constitutional Constitutional: Reports as per HPI, Denies chills, Denies fever(s) and Reports headache(s) ENT Ears, Nose, Mouth, and Throat: Reports headache(s) Cardiovascular Cardiovascular: Reports as per HPI, Denies chest pain and Denies dyspnea Respiratory Respiratory: Reports as per HPI, Denies cough and Denies dyspnea Musculoskeletal Musculoskeletal: Denies numbness Neurologic Neurologic: Denies abnormal speech, Reports headache(s), Denies numbness, Reports seizure-like activity and Denies sensory deficit PFSH <JORDY Anderson - Last Filed: 10/22/20 14:14> Medical History (Updated 10/22/20 @ 03:14 by Peter Leos MD) Asthma Depression Encounter for IUD removal Fibromyalgia Treated with marijuana. Patient does not have a medical marijuana card Grand mal seizure disorder Last seizure August 2018. History of pre-eclampsia Hyperlipidemia Hypertension Migraine headache Sciatica Tremor of both hands secondary to Depakote, per pt. 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 Has routine cardiology follow-up Dr. Rai in [place]. Pt. states there is still a slight hole but is monitored Hx of tubal ligation Social History (Updated 05/07/19 @ 21:48 by Cassie Garcia MD) Smoking/Tobacco Use Status: Never Smoking risk assessment performed?: Yes Alcohol Intake: never Drug use: Daily Substance use type: marijuana and other Details: Uses marijuana to treat fibromyalgia Household members: spouse, children and other Details: Audrey-Vinod Francisco-Magaly, Vinod- Katia Number of Children: 2 Do you need help understanding health information?: Rarely current occupation: Works at [email or web address] Sexually active: Yes Do you feel safe at home: Yes Do you feel safe in your relationship?: Yes Additional Social history: Daughter Magaly special-needs secondary to difficulty speaking. Katia without issues both children attend [employer] History History 4 Para 2 Hx # Term Pregnancies Multiple births Hx # Pregnancies Ectopic pregnancies AB induced 2 Hx Number of Living Children AB spontaneous Exam <JORDY Anderson - Last Filed: 10/22/20 14:14> Const General: cooperative, comfortable, no acute distress and ill appearing acutely Nutritional Appearance: average body habitus and well nourished Orientation: alert, awake and confused (repeating frequently) [facility] Head: normal to inspection, no palpable skull fracture, normocephalic and atraumatic Ears: hearing grossly normal bilaterally, external ears normal and TM's normal bilaterally Face and sinus: normal facial exam Mouth: oral mucosae normal Teeth and gingiva: dentition normal Throat: posterior oropharynx normal Eyes General: appearance normal, both eyes and all related structures Visual Garcia: normal visual garcia by confrontation Alignment and Position: alignment normal Eyelids: eyelids normal Pupils: PERRL EOM: EOM intact bilaterally Neck Neck: normal visual inspection, full ROM, no lymphadenopathy, no meningeal signs and trachea midline Resp Effort & Inspection: normal respiratory effort, able to speak in complete sentences and no respiratory distress Auscultation: clear to auscultation bilaterally Cardio Rate: regular rate Rhythm: regular rhythm Heart Sounds: S1 normal GI Inspection: normal to inspection Palpation: soft and nontender Skin General skin exam: no rashes or lesions noted Neuro General: patient alert, patient awake, patient oriented x3, tone normal and moves all extremities Cranial Nerves: CN's II-XI intact bilaterally, PERRL, accommodation normal, EOM intact bilaterally, no nystagmus, facial strength normal, tongue midline, hearing normal, able to rotate head bilaterally and able to elevate shoulders bilaterally Cognition: normal cognition Speech: speech normal Gait: normal gait (ambulating to the bathroom well, nursing at side but no defict) Motor: muscle tone normal throughout, strength 5/5 throughout, no pronator drift, no movement abnormalities noted and no fasciculations Sensory Exam: no sensory deficits noted Psych Appearance: grossly normal and well kempt Mental Status: mental status grossly normal Speech and Movement: speech and movement normal Course <JORDY Anderson - Last Filed: 10/22/20 14:14> Vital Signs Vital signs: Vital Signs Temperature 36.8 C 10/21/20 21:22 Pulse 95 H 10/21/20 21:22 Respiratory Rate 17 10/21/20 21:22 Pulse Oximetry 98 10/21/20 21:22 Temperature 36.8 C 10/21/20 21:22 Temperature Source Temporal Artery Scan 10/21/20 21:22 Pulse 95 H 10/21/20 21:22 Respiratory Rate 17 10/21/20 21:22 Respiratory Effort Non-Labored 10/21/20 21:26 Respiratory Depth Normal 10/21/20 21:26 Respiratory Pattern Normal 10/21/20 21:26 Blood Pressure Position Sitting 10/21/20 21:22 Pulse Oximetry 98 10/21/20 21:22 Oxygen Delivery Method Room Air 10/21/20 21:22 Oxygen Flow Rate 0 10/21/20 21:22 Pain Level 0 10/21/20 21:22 Lab/Test Results Lab/Test Results: Laboratory Tests Range/Units 10/21/20 10/21/20 10/21/20 21:05 21:05 21:05 WBC (4.4-10.8) 10^3/uL 10.31 RBC (3.93-5.22) 10^6/uL 5.05 Hgb (11.2-15.7) g/dL 14.9 Hct (36.0-46.0) % 43.9 MCV (80-95) fL 86.9 MCH (27.0-33.0) pg 29.5 MCHC (32.0-36.0) % 33.9 RDW (11.7-14.6) % 11.7 Plt Count (130-400) 10^3/uL 291 MPV (8.0-11.0) fL 9.6 Immature Gran % 0.4 Neutrophils % 38.9 Lymphocytes % 41.9 Monocytes % 12.4 Eosinophils % 5.6 Basophils % 0.8 Nucleated RBC % % 0 Absolute Neutrophils (1.2-6.7) 10^3/uL 4.01 Absolute Lymphocytes (1.2-3.4) 10^3/uL 4.32 H Absolute Monocytes (0.1-0.8) 10^3/uL 1.28 H Absolute Eosinophils (0.0-0.7) 10^3/uL 0.58 Absolute Basophils (0.0-0.2) 10^3/uL 0.08 PT (9.3-11.0) sec INR (0.9-1.1) APTT (21.0-27.5) sec Sodium (136-145) mmol/L 141 Potassium (3.5-5.1) mmol/L 3.8 Chloride (98-107) mmol/L 107 Carbon Dioxide (21.0-32.0) mmol/L 18.7 L Anion Gap (3-11) mmol/L 15.3 H BUN (7-18) mg/dL 14 Creatinine (0.55-1.02) mg/dL 0.9 Estimated GFR/1.73 m2 (mL/min/1.73m2) >= 60.00 Glucose (74-106) mg/dL 93 Calcium (8.5-10.1) mg/dL 9.3 Magnesium (1.8-2.4) mg/dL 1.9 Total Bilirubin (0.2-1.0) mg/dL 0.3 AST (15-37) U/L 24 ALT (14-59) U/L 40 Alkaline Phosphatase (46-116) U/L 49 Total Protein (6.4-8.2) g/dL 8.0 Albumin (3.4-5.0) g/dL 3.9 TSH (0.36-3.74) uIU/mL 5.99 H Valproic Acid (50-100) ug/mL 30.9 L Range/Units 10/21/20 21:35 WBC (4.4-10.8) 10^3/uL RBC (3.93-5.22) 10^6/uL Hgb (11.2-15.7) g/dL Hct (36.0-46.0) % MCV (80-95) fL MCH (27.0-33.0) pg MCHC (32.0-36.0) % RDW (11.7-14.6) % Plt Count (130-400) 10^3/uL MPV (8.0-11.0) fL Immature Gran % Neutrophils % Lymphocytes % Monocytes % Eosinophils % Basophils % Nucleated RBC % % Absolute Neutrophils (1.2-6.7) 10^3/uL Absolute Lymphocytes (1.2-3.4) 10^3/uL Absolute Monocytes (0.1-0.8) 10^3/uL Absolute Eosinophils (0.0-0.7) 10^3/uL Absolute Basophils (0.0-0.2) 10^3/uL PT (9.3-11.0) sec 9.9 INR (0.9-1.1) 1.0 APTT (21.0-27.5) sec 19.4 L Sodium (136-145) mmol/L Potassium (3.5-5.1) mmol/L Chloride (98-107) mmol/L Carbon Dioxide (21.0-32.0) mmol/L Anion Gap (3-11) mmol/L BUN (7-18) mg/dL Creatinine (0.55-1.02) mg/dL Estimated GFR/1.73 m2 (mL/min/1.73m2) Glucose (74-106) mg/dL Calcium (8.5-10.1) mg/dL Magnesium (1.8-2.4) mg/dL Total Bilirubin (0.2-1.0) mg/dL AST (15-37) U/L ALT (14-59) U/L Alkaline Phosphatase (46-116) U/L Total Protein (6.4-8.2) g/dL Albumin (3.4-5.0) g/dL TSH (0.36-3.74) uIU/mL Valproic Acid (50-100) ug/mL Sign Out <JORDY Anderson - Last Filed: 10/22/20 14:14> Sign Out Data: Sign Out Comment: Care transitioned to Dr. leos with reevaluation pending. Patient had 5 min seizure. She is postictal and repeating herself frequently. Imaging and labs without significant abnormality. Depakote given. Last updated by Lizett Simpson PA at 10/22/20 00:18
[2020-10-21 22:18] LABS: FREE T4 0.76 ng/dL (0.76-1.46)
--- NOTE | 2020-10-21 22:44 | DI.VRAD_ITS ---
PROCEDURE INFORMATION: Exam: CT Head Without Contrast Exam date and time: 10/21/2020 9:34 PM Age: 34 years old Clinical indication: Other: Struck head during seizure TECHNIQUE: Imaging protocol: Computed tomography of the head without contrast. Total images: 1906 Radiation optimization: All CT scans at this facility use at least one of these dose optimization techniques: automated exposure control; mA and/or kV adjustment per patient size (includes targeted exams where dose is matched to clinical indication); or iterative reconstruction. COMPARISON: CT HEAD WO 09/01/2018 9:01 PM FINDINGS: Brain: No intra or extra axial bleed. No edema or mass effect. The central herman structures and cortical ribbon are maintained. Cerebral ventricles: No hydrocephalus. Basal cisterns are patent. Paranasal sinuses: No mucosal thickening or fluid levels. Mastoid air cells: Mastoid air cells are clear. Orbital cavity: Unremarkable. Bones/joints: No significant bony abnormality. No fracture. Soft tissues: Unremarkable. IMPRESSION: No acute intracranial abnormality. No bleed. PROCEDURE INFORMATION: Exam: CT Cervical Spine Without Contrast Exam date and time: 10/21/2020 9:34 PM Age: 34 years old Clinical indication: Other: Struck head during seizure TECHNIQUE: Imaging protocol: Computed tomography images of the cervical spine without contrast. Radiation optimization: All CT scans at this facility use at least one of these dose optimization techniques: automated exposure control; mA and/or kV adjustment per patient size (includes targeted exams where dose is matched to clinical indication); or iterative reconstruction. COMPARISON: CT HEAD WO 09/01/2018 9:01 PM FINDINGS: Bones/joints: No acute fracture. There is a slight anterolisthesis C5 on 6. 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 Discs/Spinal canal/Neural foramina: There is degenerative disc disease at C5-C6 and C6-C7. Epidural space: No gross epidural hemorrhage. Prevertebral Space: No prevertebral soft tissue swelling. Lungs: No apical pneumothorax. Soft tissues: Unremarkable. IMPRESSION: 1. No acute fracture. 2. Slight anterolisthesis at C5-C6 likely degenerative in origin but if there is any further concern for ligamentous injury consider cervical MRI. Dictated and Authenticated by: Mike Brizuela MD. Ordering:CLAU Phoenix MD
[2020-10-21] MEDS: Divalproex 250 MG TABEC PO (23:52)
[2020-10-22] VITALS (18 sets, daily range): BP systolic 114–118; BP diastolic 66–72; PULSE 54–72; RESP 10–25; TEMP 36.5; O2SAT 96–98
--- NOTE | 2020-10-22 01:25 | NUR.NOTE ---
Patient resting quietly, lying on left side. Able to state name,birthdate, oriented to place and time. Reports she remembers having a headache then a seizure and being brought in by ambulance. Moves independently in bed. Vital signs stable. Call light in reach. Lights dimmed for comfort.Nursing Note:
--- NOTE | 2020-10-22 03:12 | NUR.NOTE ---
Ambulates to restroom with steady gait. Ayaz pain or dizziness. Requests to go home. Nursing Note:
--- NOTE | 2020-10-22 03:28 | NUR.NOTE ---
Nursing Note: Patient spouse, Nolan en route to take her home.
== END 2020-10-22 03:55 | disposition home or self-care (01) ==
PROVIDERS: Physician Assistant; Emergency Provider Emergency Medicine; PCP Nurse Practitioner Family
DX: G40.409 Other generalized epilepsy and epileptic syndromes, not intractable, without status epilepticus (principal); S09.8XXA Other specified injuries of head, initial encounter; W19.XXXA Unspecified fall, initial encounter; G25.1 Drug-induced tremor; T42.6X5A Adverse effect of other antiepileptic and sedative-hypnotic drugs, initial encounter; R51.9 Headache, unspecified; R94.6 Abnormal results of thyroid function studies
CPT/HCPCS: 36415; 80053; 96360; 99284; 70450; 72125; 80164; 83735; 84439; 84443; 84484; 85025; 85610; 85730; 99285

== ENCOUNTER 2021-05-03 09:24 | Emergency (ER) | payer MEDICAID, SELFPAY ==
[2021-05-03] VITALS (30 sets, daily range): BP systolic 95–121; BP diastolic 47–66; PULSE 51–82; RESP 14–23; TEMP 36.6; O2SAT 94–100
--- NOTE | 2021-05-03 09:45 | DI.CT_ITS ---
Exam(s) CT HEAD WO EXAM: CT HEAD WO CLINICAL HISTORY: Possible seizure. TECHNIQUE: Imaging Protocol: Axial computed tomography images with coronal and sagittal reformatted images were created and reviewed COMPARISON: CT CT HEAD CERVICAL SPINE WO from 10/21/2020 FINDINGS: The ventricular system is normal in appearance. No evidence of acute intracranial hemorrhage, mass effect, or midline shift. The orbital structures are unremarkable. The temporal bone structures appear intact. Calvarium: Normal. Visualized Paranasal sinuses/Mastoids: Clear. IMPRESSION: Normal cranial CT. RADIATION DOSE DELIVERED: 788.63mGy.cm Total DLP 788.63mGy.cm Total DLP !Error CTDIvol DATA REPOSITORY: All CT scans at this facility are submitted to the National Radiology Data Registry (NRDR) Dose Index Registry (DIR) with the [employer] ([employer]). RADIATION OPTIMIZATION: All CT scans at this facility use at least one of these dose optimization te chniques: automated exposure control; mA and/or kV adjustment per patient size (includes targeted exa ms where dose is matched to clinical indication); or iterative reconstruction.
[2021-05-03] MEDS: Normal Saline 1,000 ML 1000 ML IV (09:46)
[2021-05-03 09:56] LABS: Abs Immature Grans 0.03 10^3/uL (0.0-0.06); Absolute Basophil Count 0.05 10^3/uL (0.0-0.2); Absolute Eosinophil Count 0.21 10^3/uL (0.0-0.7); Absolute Lymphocyte Count 2.31 10^3/uL (1.2-3.4); Absolute Monocyte Count 0.66 10^3/uL (0.1-0.8); Absolute Neutrophil Count 3.52 10^3/uL (1.2-6.7); Basophils % 0.7; Eosinophils % 3.1; HGB 13.3 g/dL (11.2-15.7); Immature Grans % 0.4; Lymphocytes % 34.1; MCH 30.4 pg (27.0-33.0); MCHC 33.3 % (32.0-36.0); MCV 91.3 fL (80-95); MPV 9.3 fL (8.0-11.0); Monocytes % 9.7; Nucleated RBC 0 %; Platelet Count 245 10^3/uL (130-400); RBC 4.38 10^6/uL (3.93-5.22); RDW 12.3 % (11.7-14.6); WBC 6.78 10^3/uL (4.4-10.8)
[2021-05-03 10:11] LABS: Bilirubin Negative (Negative); Blood Moderate (Negative); Clarity Clear (Clear); Glucose Negative (Negative); Ketones Negative (Negative); Leukocyte Esterase Negative (Negative); Nitrite Negative (Negative); Urobilinogen 0.2 EU/dL (Up TO 0.2); pH 7.5 (5-8)
[2021-05-03 10:18] LABS: WBC 0-2 HPF (0-5)
[2021-05-03 10:18] LABS: VALPROIC ACID 29.7 ug/mL
[2021-05-03 10:19] LABS: Bacteria Few HPF (Negative); C & S Indicated? Yes; Casts Negative LPF (Negative); Crystals Moderate Amorphous HPF (Negative); Epithelial Cells Rare HPF (Negative); Mucus Trace (Negative)
[2021-05-03 10:20] LABS: ALT 16 U/L (14-59); AST 14 U/L (15-37); Albumin 3.3 g/dL (3.4-5.0); Alkaline Phosphatase 38 U/L (46-116); Anion Gap 9.5 mmol/L (3-11); BUN 9 mg/dL (7-18); Bilirubin, Total 0.2 mg/dL (0.2-1.0); CO2 22.5 mmol/L (21.0-32.0); CREATININE 0.9 mg/dL (0.55-1.02); Calcium 8.5 mg/dL (8.5-10.1); Chloride 109 mmol/L (98-107); ETHANOL BLOOD < 3.0 mg/dL (<10); Glucose 113 mg/dL (74-106); Magnesium 2.1 mg/dL (1.8-2.4); Potassium 4.3 mmol/L (3.5-5.1); Sodium 141 mmol/L (136-145); TSH (W/Ref FT4) 0.74 uIU/mL (0.36-3.74)
[2021-05-03 10:22] LABS: *AMPHETAMINES SCREEN URINE Negative (Negative); *BARBITURATES SCREEN URINE Negative (Negative); *BENZODIAZEPINES SCREEN URINE Negative (Negative); Cannabinoids THC Positive (Negative); Cocaine Screen,Urine Negative (Negative); METHADONE URINE SCREEN Negative (Negative); OPIATES URINE SCREEN Negative (Negative); Tricyclic Antidepressants Negative (Negative)
--- NOTE | 2021-05-03 10:49 | ED.GENADUL_ITS ---
Discharge Plan Disposition Patient Disposition: HOME Condition: Improving Discharge Details Clinical Impression: Seizure disorder, Mild tetrahydrocannabinol (THC) abuse Primary Care Provider: Comfort Urban ED Provider: Rayo Rodriguez Home Meds and New Rx's Prescriptions: Continued cbd oil 0.75 PO BID 0RF Label Comments: 3/4 dropper morning and night citalopram 20 mg tablet 20 mg PO DAILY 0RF (DME) Aerochamber MV spacer See Dose Instructions .ROUTE .MEDSUPPLY Qty: 1 0RF Rx Instructions: As directed albuterol sulfate 90 mcg/actuation aerosol powdr breath activated 1 inh IH Q4H 0RF Flovent HFA 110 mcg/actuation HFA aerosol inhaler 2 puff IH BID 0RF meloxicam 15 mg tablet 15 mg PO DAILY 0RF aripiprazole 2 mg Tablet 2 mg PO DAILY 0RF topiramate 200 mg tablet 200 mg PO BID 0RF Label Comments: TAKE 1 TABLET BY MOUTH TWICE DAILY gabapentin 100 mg capsule 100 mg PO TID 0RF Label Comments: 1 capsule by mouth three times a day atorvastatin [Lipitor] 20 MG tablet 20 mg PO HS 0RF Changed divalproex [Depakote] 250 mg tablet,delayed release (DR/EC) See Rx Instructions .ROUTE .COMPLEX Qty: 30 0RF Rx Instructions: Please take 250mg in the AM and 500mg in the evenings. Discharge Instructions Instructions: Recurrent Seizures in Adults (ED) Additional Instructions: Please take your normally prescribed medications and note that neurology recommended an increase of your Depakote to 1 tablet in the morning and 2 in the evening. Given the events surrounding the seizure-like activity it is highly likely this this was exacerbated by your marijuana usage. It is recommended to avoid any marijuana or THC whether smoking or edibles as this will increase your likelihood of having further seizures. If you have any new or significant worsening of your symptoms feel free to return to the emergency department and contact your neurologist in the next couple days for arrangement of follow-up appointment at [facility]. Given your seizure disorder it is recommended to not operate heavy machinery, firearms, automobiles, or perform any dangerous actions as if you have a seizure it could endanger yourself or others. Any of these potential action should be cleared by neurology prior to performing them. Referrals: [facility] [Outside] (Please call your neurologist office for follow-up appointment) Discharge Data Discharge Date/Time-TO BE ENTERED AT DEPARTURE: 05/03/21 14:54 Medical Decision Making Patient presenting via EMS for chief complaint of seizure. Patient has known seizure disorder and was reported to have a mild seizure this morning. Did speak with significant other who witnessed the event and states that yesterday evening patient had a pop edible and since waking up this morning has been extremely somnolent. Then she had a mild [place] seizure with no focal neurological findings and generalized shaking. Since then patient has continued to be somnolent and postictal. Significant other does state that patient has been on gabapentin do some to some neurologist but this med has been given for the last 2 weeks and otherwise patient has been normally taking medications. Physical exam shows obtunded patient that is responsive to verbal stimuli and follows commands. Moves all extremities with reported normal sensation to touch and temperature. Patient does have bilateral dilated pupils but EOMs intact. Patient's only reported complaint is a headache but otherwise no other complaints noted. Plan to check labs including Depakote level, give IV fluids, and CT imaging given extended postictal period. We will continue to monitor patient. Review of labs show an unremarkable CBC, mildly elevated chloride glucose and slightly low AST alk phos and albumin. TSH is within normal range, patient is not and only mild amount of blood seen in urine but otherwise negative leukocyte esterase and nitrites. Reflex culture indicated but patient denies any urinary symptoms so at this time we will hold off on treatment. Urine tox was positive for THC otherwise negative. No alcohol detected in system and valproic acid is at 29 which is slightly subtherapeutic. Significant other did state that patient was unable to take doses this morning which could be why only slightly subtherapeutic. Plan to give valproic acid and consult neuro after head CT. Reviewed head CT imaging and spoke with radiologist showed no acute findings noted. 1230- Spoke to neurologist on-call Dr. Bird who stated she would contact patient's typical neurologist but at this time had no other recommendations and feels similar to what I do that the seizure like activity along with lethargy is more likely secondary to THC use. She stated that after contacting patient's normal neurologist they will recontact us if there are any further recommendations or adjustments that are needed. She did state that it may be beneficial to increase patient's Depakote to 250 in the a.m. and 500 in the p.m. 1400-patient now more alert and awake compared to previously. Patient able to converse more and only slightly sedate at this time. I have not heard anything further from [facility] and will assume that no further changes were needed beyond the increase of Depakote as previously discussed. Will p.o. challenge patient and have her ambulate prior to discharge. 1425-nursing staff reported that patient was able to ambulate to bathroom without assistance, tolerating p.o. intake. Patient was calling family for arrangement of transportation home. HPI General Mode of arrival: EMS . Date/Time Provider Initiated Documentation: 05/03/21 09:25 . Information obtained by: patient, family (Significant other) and EMS . History of Present Illness 35 year old F presents to the emergency department with the chief complaint of Headache, possible seizure, described as severe and similar to prior episodes, with intensity rated at 8. Quality is described as aching, and is localized to the head. Patient reports no radiation. Patient started experiencing this hour(s) (1) and it has been constant. improves with No relieving factors improve symptom(s), Other factors that w orsen symptoms (unk) . Patient notes no other symptoms.. Patient did receive the following treatments prior to arrival, none Related Data Home Medications Medication Instructions Recorded Confirmed atorvastatin 20 mg tablet (Lipitor) 20 mg PO HS 06/25/17 05/03/21 albuterol sulfate 90 mcg/actuation 1 inh IH Q4H 05/29/18 05/03/21 breath activated powder inhaler cbd oil 0.75 PO BID 05/29/18 08/19/19 citalopram 20 mg tablet 20 mg PO DAILY 05/29/18 05/03/21 fluticasone propionate 110 2 puff IH BID 05/29/18 05/03/21 mcg/actuation HFA aerosol inhaler (Flovent HFA) inhalational spacing device #1 each 05/29/18 08/19/19 (Aerochamber MV) aripiprazole 2 mg tablet 2 mg PO DAILY 09/01/18 05/03/21 meloxicam 15 mg tablet 15 mg PO DAILY 04/28/19 05/03/21 divalproex 250 mg tablet,delayed See Rx Instructions .ROUTE 05/03/21 release (Depakote) .COMPLEX #30 tab gabapentin 100 mg capsule 100 mg PO TID 05/03/21 05/03/21 topiramate 200 mg tablet 200 mg PO BID 05/03/21 05/03/21 Previous Rx's Medication Instructions Recorded divalproex 250 mg tablet,delayed See Rx Instructions .ROUTE 05/03/21 release (Depakote) .COMPLEX #30 tab Allergies Allergy/AdvReac Type Severity Reaction Status Date / Time No Known Allergies Allergy Unverified 05/03/21 09:37 General Stated Complaint: Seizure GM: 3 Review of Systems Constitutional Constitutional: Reports daytime sleepiness, Reports fatigue, Denies fever(s), Reports headache(s) and Reports malaise Eyes Eyes: Denies blurry vision ENT Ears, Nose, Mouth, and Throat: Reports headache(s), Denies mouth pain and Denies neck pain Cardiovascular Cardiovascular: Denies chest pain, Denies palpitations and Denies dyspnea Respiratory Respiratory: Denies dyspnea Gastrointestinal Gastrointestinal: Denies abdominal pain, Denies nausea and Denies vomiting Musculoskeletal Musculoskeletal: Denies back pain and Denies neck pain Neurologic Neurologic: Reports as per HPI, Reports headache(s), Reports convulsions and Denies sensory deficit Endocrine Endocrine: Reports fatigue and Denies palpitations PFSH All Active Problems (Updated 05/03/21 @ 14:44 by Rayo Rodriguez NP) Seizure disorder (Chronic) Mild tetrahydrocannabinol (THC) abuse (Acute) Encounter for IUD removal (Acute) Hx of tubal ligation (Chronic) Knee pain, bilateral (Chronic) Generalized tonic-clonic seizure (Chronic) Onset 28 years old. Last seizure 2018. Neurologist at [facility] 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 Contraception management (Acute) 05/[address] Paperwork for tubal sterilization initiated. Sciatica (Acute) Hypertension (Chronic) Depression (Chronic) Migraine headache (Chronic) Hyperlipidemia (Chronic) Asthma (Chronic) Fibromyalgia (Chronic) Treated with marijuana. Patient does not have a medical marijuana card Medical History Grand mal seizure disorder Last seizure August 2018. History of pre-eclampsia Tremor of both hands secondary to Depakote, per pt. 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 Has routine cardiology follow-up Dr. Rai in [place]. Pt. states there is still a slight hole but is monitored Social History Smoking/Tobacco Use Status: Never Smoking risk assessment performed?: Yes Alcohol Intake: never Drug use: Daily Substance use type: marijuana and other Details: Uses marijuana to treat fibromyalgia Household members: spouse, children and other Details: H-Nolan, D-Magaly, D- Katia Number of Children: 2 Do you need help understanding health information?: Rarely current occupation: Works at [employer] Sexually active: Yes Do you feel safe at home: Yes Do you feel safe in your relationship?: Yes Additional Social history: Daughter Magaly special-needs secondary to difficulty speaking. Katia without issues both children attend [employer] History History 4 Para 2 Hx # Term Pregnancies Multiple births Hx # Pregnancies Ectopic pregnancies AB induced 2 Hx Number of Living Children AB spontaneous Exam Const General: cooperative Nutritional Appearance: thin Orientation: alert and other (Somnolent) HENMT Head: normal to inspection and normocephalic Ears: hearing grossly normal bilaterally and TM's normal bilaterally General nose exam: external nose normal Face and sinus: normal facial exam Eyes Visual Garcia: normal visual garcia by confrontation Alignment and Position: alignment normal Periorbital: periorbital findings normal Eyelids: eyelids normal Sclera: sclerae normal Cornea: corneas normal Pupils: dilated bilaterally EOM: EOM intact bilaterally Neck Neck: normal visual inspection, full ROM and no meningeal signs Resp Effort & Inspection: normal respiratory effort Auscultation: clear to auscultation bilaterally Cardio Rate: regular rate Rhythm: regular rhythm Heart Sounds: S1 normal and S2 normal Neuro General: patient alert, patient awake, tone normal, moves all extremities, normal light touch, pain and propioception, no meningeal signs, no focal motor deficits and patient obtunded Cognition: normal cognition Speech: speech normal Motor: muscle tone normal throughout, strength 5/5 throughout, no pronator drift, no movement abnormalities noted and no fasciculations Sensory Exam: no sensory deficits noted Course Vital Signs Vital signs: Vital Signs Temperature 36.6 C 05/03/21 09:27 Pulse 68 05/03/21 09:27 Respiratory Rate 14 05/03/21 09:27 Blood Pressure 106/51 L 05/03/21 09:27 Pulse Oximetry 100 05/03/21 09:27 Temperature 36.6 C 05/03/21 09:27 Temperature Source Skin 05/03/21 09:27 Pulse 68 05/03/21 09:27 Respiratory Rate 14 05/03/21 09:27 Respiratory Effort Non-Labored 05/03/21 09:39 Respiratory Depth Normal 05/03/21 09:39 Respiratory Pattern Normal 05/03/21 09:39 Blood Pressure 106/51 L 05/03/21 09:27 Blood Pressure Position Sitting 05/03/21 09:27 Pulse Oximetry 100 05/03/21 09:27 Oxygen Delivery Method Room Air 05/03/21 09:27 Oxygen Flow Rate 0 05/03/21 09:27 Pain Level 0 05/03/21 09:27 Lab/Test Results Lab/Test Results: 05/03/21 10:02 Urine - Reflex from Ua Urine Culture - Pending Laboratory Tests Range/Units 05/03/21 05/03/21 05/03/21 09:48 09:48 09:48 WBC (4.4-10.8) 10^3/uL 6.78 RBC (3.93-5.22) 10^6/uL 4.38 Hgb (11.2-15.7) g/dL 13.3 Hct (36.0-46.0) % 40.0 MCV (80-95) fL 91.3 MCH (27.0-33.0) pg 30.4 MCHC (32.0-36.0) % 33.3 RDW (11.7-14.6) % 12.3 Plt Count (130-400) 10^3/uL 245 MPV (8.0-11.0) fL 9.3 Immature Gran % 0.4 Neutrophils % 52.0 Lymphocytes % 34.1 Monocytes % 9.7 Eosinophils % 3.1 Basophils % 0.7 Nucleated RBC % % 0 Absolute Neutrophils (1.2-6.7) 10^3/uL 3.52 Absolute Lymphocytes (1.2-3.4) 10^3/uL 2.31 Absolute Monocytes (0.1-0.8) 10^3/uL 0.66 Absolute Eosinophils (0.0-0.7) 10^3/uL 0.21 Absolute Basophils (0.0-0.2) 10^3/uL 0.05 Sodium (136-145) mmol/L 141 Potassium (3.5-5.1) mmol/L 4.3 Chloride (98-107) mmol/L 109 H Carbon Dioxide (21.0-32.0) mmol/L 22.5 Anion Gap (3-11) mmol/L 9.5 BUN (7-18) mg/dL 9 Creatinine (0.55-1.02) mg/dL 0.9 Estimated GFR/1.73 m2 (mL/min/1.73m2) >= 60.00 Glucose (74-106) mg/dL 113 H Calcium (8.5-10.1) mg/dL 8.5 Magnesium (1.8-2.4) mg/dL 2.1 Total Bilirubin (0.2-1.0) mg/dL 0.2 AST (15-37) U/L 14 L ALT (14-59) U/L 16 Alkaline Phosphatase (46-116) U/L 38 L Total Protein (6.4-8.2) g/dL 7.0 Albumin (3.4-5.0) g/dL 3.3 L TSH (0.36-3.74) uIU/mL 0.74 Urine Color (Yellow) Urine Clarity (Clear) Urine pH (5-8) Ur Specific [place] (1.005-1.025) Urine Protein (Negative) mg/dL Urine Ketones (Negative) mg/dL Urine Blood (Negative) Urine Nitrite (Negative) Urine Bilirubin (Negative) Urine Urobilinogen (Up TO 0.2) EU/dL Ur Leukocyte Esterase (Negative) Urine RBC (0-2) HPF Urine WBC (0-5) HPF Ur Epithelial Cells (Negative) HPF Urine Crystals (Negative) HPF Urine Bacteria (Negative) HPF Urine Casts (Negative) LPF Urine Mucus (Negative) Ur Culture Indicated? Urine Glucose (Negative) mg/dL Urine Opiates Screen (Negative) Urine Methadone Screen (Negative) Ur Barbiturates Screen (Negative) Valproic Acid ( - 150) ug/mL 29.7 Ur Tricyclics Screen (Negative) Ur Amphetamines Screen (Negative) U Benzodiazepines Scrn (Negative) Urine Cocaine Screen (Negative) Ur THC Screen (Negative) Ethyl Alcohol (<10) mg/dL < 3.0 Range/Units 05/03/21 05/03/21 10:02 10:02 WBC (4.4-10.8) 10^3/uL RBC (3.93-5.22) 10^6/uL Hgb (11.2-15.7) g/dL Hct (36.0-46.0) % MCV (80-95) fL MCH (27.0-33.0) pg MCHC (32.0-36.0) % RDW (11.7-14.6) % Plt Count (130-400) 10^3/uL MPV (8.0-11.0) fL Immature Gran % Neutrophils % Lymphocytes % Monocytes % Eosinophils % Basophils % Nucleated RBC % % Absolute Neutrophils (1.2-6.7) 10^3/uL Absolute Lymphocytes (1.2-3.4) 10^3/uL Absolute Monocytes (0.1-0.8) 10^3/uL Absolute Eosinophils (0.0-0.7) 10^3/uL Absolute Basophils (0.0-0.2) 10^3/uL Sodium (136-145) mmol/L Potassium (3.5-5.1) mmol/L Chloride (98-107) mmol/L Carbon Dioxide (21.0-32.0) mmol/L Anion Gap (3-11) mmol/L BUN (7-18) mg/dL Creatinine (0.55-1.02) mg/dL Estimated GFR/1.73 m2 (mL/min/1.73m2) Glucose (74-106) mg/dL Calcium (8.5-10.1) mg/dL Magnesium (1.8-2.4) mg/dL Total Bilirubin (0.2-1.0) mg/dL AST (15-37) U/L ALT (14-59) U/L Alkaline Phosphatase (46-116) U/L Total Protein (6.4-8.2) g/dL Albumin (3.4-5.0) g/dL TSH (0.36-3.74) uIU/mL Urine Color (Yellow) Yellow Urine Clarity (Clear) Clear Urine pH (5-8) 7.5 Ur Specific [place] (1.005-1.025) 1.020 Urine Protein (Negative) mg/dL Negative Urine Ketones (Negative) mg/dL Negative Urine Blood (Negative) Moderate H Urine Nitrite (Negative) Negative Urine Bilirubin (Negative) Negative Urine Urobilinogen (Up TO 0.2) EU/dL 0.2 Ur Leukocyte Esterase (Negative) Negative Urine RBC (0-2) HPF 5-10 H Urine WBC (0-5) HPF 0-2 Ur Epithelial Cells (Negative) HPF Rare Urine Crystals (Negative) HPF Moderate Amorphous Urine Bacteria (Negative) HPF Few Urine Casts (Negative) LPF Negative Urine Mucus (Negative) Trace Ur Culture Indicated? Yes Urine Glucose (Negative) mg/dL Negative Urine Opiates Screen (Negative) Negative Urine Methadone Screen (Negative) Negative Ur Barbiturates Screen (Negative) Negative Valproic Acid ( - 150) ug/mL Ur Tricyclics Screen (Negative) Negative Ur Amphetamines Screen (Negative) Negative U Benzodiazepines Scrn (Negative) Negative Urine Cocaine Screen (Negative) Negative Ur THC Screen (Negative) Positive A Ethyl Alcohol (<10) mg/dL POC- Test(urine) Negative
[2021-05-03] MEDS: Divalproex Sodium 250 MG TAB.ER.24H PO (11:33)
== END 2021-05-03 14:54 | disposition home or self-care (01) ==
PROVIDERS: Emergency Provider Nurse Practitioner Family; PCP Nurse Practitioner Family
DX: G40.909 Epilepsy, unspecified, not intractable, without status epilepticus (principal); F12.10 Cannabis abuse, uncomplicated
CPT/HCPCS: 36415; 80053; 80307; 81025; 96360; 99284; 70450; 80164; 80320; 81003; 81015; 83735; 84443; 85025; 87086; 99283

== ENCOUNTER 2021-09-13 13:00 | Emergency (ER) | payer MEDICAID, SELFPAY ==
[2021-09-13 13:03] VITALS: BP 140/80; PULSE 71; RESP 16; TEMP 36.8; O2SAT 100
--- OUTSIDE RECORDS SUMMARY | 2021-09-13 13:13 | XMS_ITS | Encounter Summary ---
:1985 Author Organization [place] [address] Care Team Providers Name Role Phone JaydonComfort king NEEDLE GRINDER Primary Care Provider Encounter Details Date Type Department Care Team Description 06/20/2021 Telephone Neurology at [facility] Tereso Mohan MD [facility] [phone] NEUROLOGY DEPT. [phone] [place], [place] [address] (Wo rk) Social History Tobacco Use Types Packs/Day Years Used Date Never Smoker Smokeless Tobacco: Never Used Alcohol Use Standard Drinks/Week Comments Never 0 (1 standard drink = 0.6 oz pure alcoho l) Alcohol Habits Answer Date Recorded How often do you have a drink containing alcohol? Never 05/05/2018 How many drinks containing alcohol do you have on a typical Not asked day when you are drinking? How often do you have six or more drinks on one occasion? No t asked Comment: Not asked Sex Assigned at Date Recorded Not on file documented as of this encounter Miscellaneous Notes Telephone Encounter - Gabriella Farmer - 06/20/2021 3:01 PM EDT Patient confirmed and scheduled for EMU admission for Saturday07/04/21. Patient informed Covid test isneeded for admission. Patient informed to call the admissions office on the day of admission at 10amto confirm bed availability and to arrive to 3C clinic for 1pm. Band Aid Machine Operator provided admissions office phone number to patient. Band Aid Machine Operator will mail out Video EEG pamphlet and Rest Easy pamphlet to patient. Patient stated her boyfriend and mother will be coming in to visit and will be staying overnight locally. She was wondering if her boyfriend would be able to stay overnight with her on a cot though? Kindlycalivis for clinical admission details. documented in this encounter Plan of Treatment Not on filedocumented as of this encounter Visit Diagnoses Not on filedocumented in this encounter Care Teams Siene Maker Relationship Specialty Start Date End Date Comfort Urban APRN PCP - General Family Medicine 07/19/17 [address] [place] [address] documented as of this encounter
--- OUTSIDE RECORDS SUMMARY | 2021-09-13 13:13 | XMS_ITS | Encounter Summary ---
:1985 Author Organization [place] [address] Care Team Providers Name Role Phone Comfort Urban APRN Primary Care Provider Reason for Referral Consultation (Routine) - Authorized Specialty Diagnoses / Procedures Referred By Contact Refer red To Contact [facility] Diagnoses Chronic low back pain, unspecified back pain laterality, unspecified whether sciatica present Comfort Urban APRN [facility] [address] Sp[facility] [address] [place] [address] Phone: Fax: Referral ID Status Reason Start Date Expiration Visits Visits Date Requested Authorized [id number] Authorized Consult, 05/11/2021 05/11/2022 6 6 Test & Treat Encounter Details Date Type Department Care Team Description 05/11/2021 Transcribe Orders eDH Incoming Comfort Urban Chronic low back Referrals SELVIN pain, unspecified [phone] [address] [place] [address] unspecified whether [phone] sciatica [facility] (Work) Social History Tobacco Use Types Packs/Day Years [...] on file documented as of this encounter Plan of Treatment Scheduled Referrals Name Type Priority Associated Diagnoses [facility] Referral Routine Chronic low back Ordered: Center pain, unspecified 05/11/2021 back pain laterality, unspecified whether sciatica present documented as of this encounter Visit Diagnoses Diagnosis Chronic low back pain, unspecified back pain laterality, unspecified whether sciatica present documented in this encounter Care Teams Cargo Services Coordinator Relationship Specialty Start Date End Date Comfort Urban APRN PCP - General Family Medicine 07/19/17 [address] [place] [address] documented as of this encounter
--- OUTSIDE RECORDS SUMMARY | 2021-09-13 13:13 | XMS_ITS | Encounter Summary ---
:1985 Author Organization [facility] [place] [address] Care Team Providers Name Role Phone Rajni Comfort SELVIN Primary Care Provider Reason for Referral Consultation (Routine) - Authorized Specialty Diagnoses / Procedures Referred By Contact Refer red To Contact [facility] Diagnoses Radiculopathy of lumbar region Tereso Mohan MD Dey, MD Sarah [facility] [address] [address] [facility] [place] [address] [place] [address] Fax: Referral ID Status Reason Start Date Expiration Visits Visits Date Requested Authorized [id number] Authorized Consult, 09/05/2021 09/05/2022 1 1 Test & Treat Encounter Details Date Type Department Care Team Description 09/05/2021 Office Visit Neurology at [facility] Tereso Mohan, Radiculopathy of lumbar kartik on; [facility] Hand numbness [place], [place] CENTER [address] NEUROLOGY DEPT. [phone] [place], [place] [address] Social History Tobacco Use Types Packs/Day Years [...] on file documented as of this encounter Last Filed Vital Signs Vital Sign Reading Time Taken Comments Blood Pressure 119/65 09/05/2021 4:26 PM EDT Pulse 71 09/05/2021 4:26 PM EDT Temperature - - Respiratory Rate - - Oxygen Saturation - - Inhaled Oxygen Concentration - - Weight 84.4 kg (186 lb) 09/05/2021 4:26 PM EDT Height 154.9 cm (5' 1) 09/05/2021 4:26 PM EDT reported Body Mass Index 35.14 09/05/2021 4:26 PM EDT documented in this encounter Patient Instructions Patient InstructionsTereso Mohan MD - 09/05/2021 5:12 PM EDT I think you are doing reasonably well. Your inpatient video EEG monitoring surprisingly did not capture any epileptic seizures or even showany significant epileptic abnormalities in your brainwave patterns. I do not doubt that you have [id number] epileptic seizures. You are also suffering side effects of medication of which tingling in your hands, a side effect of topiramate, is the most troublesome At this point I recommend a crossover from topiramate to clobazam. You are already taking 10 mg of clobazam at night. Please drop half a pill of topiramate at night in the first week. In the second week increase the dose of clobazam to 2 pills at night. In the third week dropped the morning dose of topiramate. In the fourth week add a morning dose of clobazam. In the fifth week completely stop the topiramate . You will therefore be on clobazam 10 mg in the morning and 20 mg at night and not on the topiramate at all. For now, keep everything else unchanged. We can discuss further changes after we know how this has worked. Please call me in 6 weeks I would like to see you back in 3 months I am referring you back to the pain clinic for consideration of further injection in your back Please call with any problems in the meantime. Tereso Mohan MD Professor of neurology, [facility] [employer] [facility] at [facility] Department of Neurology, [address] [address], [place] [address], [facility] Pager: [phone], #[phone] Email: [email or web address] documented in this encounter Progress Notes Tereso Mhoan MD - 09/05/2021 4:30 PM EDT Neurology clinic note Chief complaint: Epilepsy. History: The patient is seen in follow-up today. As noted earlier, the patient is a 35 y/o right handed woman, referred by Comfort Urban APRN for evaluation of seizures and remors. The patient was born via C- section. She had no complications after and had normal development. She??did well in school. She has worked outside the home intermittently. There is no history of stroke, meningitis or encephalitis. She had no neurosurgical interventions. There is no history of febrile seizures. She had concussion at the age of 13. The patient reported that she had her first seizure 4 years ago in 2014. It was an unprovoked seizure which was witnessed by her and her daughter. She was taken to the ER and immediately had a second episode of generalized convulsions. She denied having any warning signs before the episode, but does say that sometimes before seizuresshe has stupid spells where she feels confused. There is no history of oral/manual automatisms, strange smells or taste, sensations of anirudh vu, jamais vu, impending doom, out of body experiences, episodes of gastric rising sensations, piloerection, sweating, nor unexplained episodes of heart racing.She has had no myoclonic jerks, nor episodes of waking up sore or with the bed wet. She had an MRI brain which was normal. EEG was subsequently normal. She was started on Keppra 500 mgtwice daily. 3 months later Keppra was discontinued because of side effects and was started on Depakote 500 mg twice daily. In 2015, while on Depakote she had another episode while at work. She reported that she felt dizzy and lost consciousness but there was no shaking associated with this episode. She was sick with flulike symptoms during this time. In August 2016 she had another similar episode where she felt dizzy and passed out. This time she reported that it was witnessed by the neighbors. She reported that her heart rate was low and she had CPRdone before the ambulance arrived. There was no clear triggers for her seizures. It was unclear how long the episodes lasted for. There was no tongue bite or urinary incontinence associated with these episodes. She denied having any further seizures since August 2016. She reports being compliant with her medications, and feels the Depakote has had side effects including weight gain, tremor and fatigue. For the past year the patient has had tremors in her extremitiesand face. She states that it has been constant and progressively getting worse. Nothing in everyday life makes it better or worse. There is no family history of tremors. She states that it has been mostly a resting tremor, and can be distractible. Previous work up: 1. Brain imaging: ?- MRI brain was done in 2016 was unremarkable per patient. -MRI brain: 05/10/2018- No acute intracranial abnormality ? -CT scan head- None ?? 2. EEG: ?- Routine EEG:Done at [facility] 05/05/18: Normal study. ?? 3. Epilepsy Monitoring Unit admissions: ?- None. ?? 4. Previous epilepsy-related neurosurgical interventions: ?- None. 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 She was also describing a significant side effects of Depakote. We opted to do a crossover from Depakote to Topamax. Unfortunately this did not work outas planned. She came off the Depakote completely and was on Topamax 50 mg twice daily when she had aconvulsive seizure that led to her being taken to [facility] emergency room. She had bitten side of her tongue quite badly, for the first time. She was discharged from there without change in me dication. She had another seizure at home and was taken to the emergency room at [facility] where she was held overnight. I spoke with the hospitalist, and recommended some adjustment in medication with increase in the dose of Topamax, and discharge home with immediate follow-up the next day in our clinic. After being seen in our clinic here she was put back on a low dose of Depakote. As of 2019 the patient was doing reasonably well. She has been seizure-free for over a year. She is tolerating the combination of Depakote and Topamax. The tremor is still present but somewhat better. I was concerned about polypharmacy with gabapentin and Celexa and Abilify and I note that she has been taken off gabapentin. She is using CBD oil or smoked marijuana for symptoms of chronic pain particularly right-sided sciatica. However he is definitely improved after a lumbar epidural steroid injection. Headaches are also doing quite well. She is able to continue working full-time at the [employer]. As of 2020 she is doing quite well. She had one breakthrough convulsive seizure associated with missed doses of medication. She has had no other major medical problems. 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 She is having some mid back pain without lumbar radicular symptoms. As noted earlier she had a lumbar epidural steroid injection for symptoms of sciatica with good results. Interval History: As of 2021 the situation is somewhat problematic. She has had another seizure in May. From her boyfriend's description it seems that she had either petit mal status, or prolonged focal seizures with altered awareness. She had waxing and waning responsiveness. She was having some minor tremors. She did not have a convulsion. Her dose of Depakote wasincreased from 250 mg twice daily to 250, 500 mg at [facility]. There have been no additional events in the past month. We did video EEG monitoring and surprisingly Showed no seizures and very few epileptic abnormalitiesin the EEG. She was discharged on a stable regimen of topiramate and Depakote. She continues to have a mild tremor that is somewhat worse since increasing Depakote she is also having a lot of paresthesias in her hands attributed to topiramate. She has less symptoms in her feet. We started a trial of clobazam with a plan to taper off topiramate. She continues to have musculoskeletal pain in the neck and back. She is better following lumbar epidural steroid injection. Past Medical History: Patient Active Problem List Diagnosis ??? Seizures ??? CIS - Entered not Verified ??? CIS - ASD, S/P repair ??? CIS - Asthma ??? CIS - Depression ??? CIS - Hx CHTN 1.ASD s/p repair in childhood. 2. ??Asthma. 3. ??Anxiety and depression. 4. ??Chronic lower back pain. 5. ??GERD. 6. ??History of De Quervain's disease 7. Fibromyaligia 8.Hypertension 9.Hyperlipidemia 10.Migraine ?? Past Surgical History: 1. ??Status post right carpal tunnel release 2005. 2. ??Status post right knee retinacular release 1998. 3. ??ASD repair in childhood ?? Allergies: NKDA ?? Social History: Denies smoking cigarettes. Has occassional alcohol use. She is with a and two children. However, she is getting . Her has moved out. She has a new boyfriend. 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 Currently working at the [employer]. ?? Family history: There is no family history of seizures. Mother: Hypertension, Diabetes Daughters: (Agnieszka Levy) has Chiari malformation and is s/p neurological surgery. She also has absence seizures and developmental delay. Another daughter has migraine. Review of Systems: Her weight is stable, but she did lose quite a lot over the years. She sleeps all right. Bowel and bladder function are normal. Other systems were reviewed and were unremarkable. ?? Current Medications: Current Outpatient Medications Medication Sig Dispense Refill ??? topiramate (Topamax) 200 mg Tablet Take 1/2 a pill in AM and 1 pill in PM 180 tablet 1 ??? divalproex EC (Depakote) 250 mg Tablet, Delayed Release (E.C.) 250mg in the morning, 500mg nightly 90 tablet 11 ??? cholecalciferol, Vitamin D3, 50 mcg (2,000 unit) Tablet Take 1 tablet by mouth daily. 90 tablet 3 ??? meloxicam (MOBIC) 15 mg Tablet Take 1 tablet by mouth daily. 30 tablet 12 ??? ProAir HFA 90 mcg/actuation HFA Aerosol Inhaler INL 1 TO 2 PFS PO Q 4 TO 6 H PRN ??? ARIPiprazole (ABILIFY) 2 mg Tablet Take 2 mg by mouth daily. 0 ??? citalopram (CELEXA) 20 mg Tablet Take 40 mg by mouth daily. 0 ??? UNABLE TO FIND Take by mouth as needed. Med Name: CBD oil ??? cloBAZam (Onfi) 10 mg Tablet Take 1 pill in AM and 2 pills in PM 90 tablet 5 ??? FLOVENT HFA 110 mcg/actuation HFA Aerosol Inhaler Inhale 2 puffs into the lungs 2 times daily. 0 No current facility-administered medications for this visit. Physical Examination: BP 119/65 Pulse 71 Ht 154.9 cm (5' 1) Comment: reported Wt 84.4 kg (186 lb) BMI 35.14 kg/m?? HEENT: Unremarkable. Lungs: clear to auscultation bilaterally Heart: regular rate and rhythm, S1, S2 normal, no murmur, click, rub or gallop Abdomen: No organomegaly Extremities: extremities warm, atraumatic, no cyanosis or edema Mental status: Mentally clear, speech normal. Cranial nerve II XII: All normal. ?? Motor: Strength was 5/5 in upper and lower extremities, both proximally and distally, normal motor tone. Muscle bulk was normal throughout. Has mild resting and action tremor seen bilaterally. Tone is normal with reinforcing maneuvers. ?? Sensory: Cervical compression unremarkable. Thoracic outlet testing unremarkable. Tinel's sign somewhat equivocally present bilaterally. Phalen's sign also somewhat equivocally present bilaterally. Ulnar grooves not tender. Vibration sense somewhat decreased at the ankles. No lateralized symptoms or si gns ?? Reflexes: 2+ throughout. ?Previously plantar response was flexor bilaterally. ?? Cerebellar: Normal [id number]-nb-agnb with mild action tremor. ?? Gait: gait was normal. 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 EEG: Routine EEG:Done at [facility] 05/05/18: Normal study. Blood Tests: Blood tests all unremarkable in March 2019 ??? Valproic Acid Level, Total ??? Hepatic Function Panel ??? Basic Metabolic Panel (non-fasting) ??? CBC (with Diff) ??? Ammonia ??? Topiramate level ??? TSH ??? Vitamin B12 ??? T4 Total ??? Carnitine ??? Hemogram ??? Differential, Automated All unremarkable in 2020 ??? Valproic Acid Level, Total ??? Hepatic Function Panel ??? Basic Metabolic Panel (non-fasting) ??? CBC (with Diff) ??? Ammonia ??? Topiramate level All unremarkable in 2021 Procedures ??? Valproic Acid Level, Total ??? Ammonia ??? Hepatic Function Panel ? ? Lyme IgG & IgM Antibody ??? Sedimentation rate ??? Magnesium ??? Phosphorus ??? SAVANNAH ??? Protein Electrophoresis, serum ??? CK ??? Topiramate level ??? Cardiolipin Antibody Screen ??? Tissue transglutaminase, IgA ??? Rheumatoid factor, quant ??? Hemoglobin A1c ??? Vitamin D, 25-Hydroxy ??? Folate, serum ??? Vitamin B1, whole blood Video EEG monitoring requested ?? Impression and plan: There continue to be several neurological issues here. 1. There is convincing evidence now that she has epilepsy, and that she probably needs Depakote for seizure control. 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 It is reassuring that MRI is normal. She is on a moderate dose of Depakote and having some side effects of tremor. In view of her recent seizures, I think we should leave this alone for now. 2. Psychiatrically she looks like she is doing well. It is reasonable to can keep her on Abilify andCelexa as she suffered from suicidal depression in the past. 3. I think the numbness in her hands may be due to a side effect of topiramate. I recommended a crossover from topiramate to clobazam and have given her a prescription and schedule. She will end up on clobazam 10, 20 mg, and will be off the topiramate completely. 4. There is some doubt in my mind as to how much the numbness in her hands is due to topiramate and how much is due to a recrudescence of carpal tunnel syndrome. I am requesting electrical studies. 5. She was complaining of worsening sciatic pain and paresthesias on the right. Her exam is relatively benign now, but there was some sensory loss on the medial aspect of the leg and ankle. MRI findings were confirmatory as noted above. Lumbar epidural steroid injections have definitely helped. She ishaving a recrudescence of symptoms on the left side. I am referring her back to the pain clinic. Thank you for this consultation. I will see her back in 3 months or sooner if necessary Tereso Mohan MD [place] [address] Pager #[phone] Email: [email or web address] CC: Comfort Urban APRN documented in this encounter Plan of Treatment Scheduled Orders Name Type Priority Associated Diagnoses Order S chedule Nerve conduction test Neurology Routine Hand numbness Order ed: 09/05/2021 Scheduled Referrals Name Type Priority Associated Diagnoses Order S chedule Referral to Pain Outpatient Referral Routine Radiculopathy of Ordered: Management lumbar region 09/05/2021 documented as of this encounter Visit Diagnoses Diagnosis Radiculopathy of lumbar region Thoracic or lumbosacral neuritis or radi culitis, unspecified Hand numbness Disturbance of skin sensation documented in this encounter Care Teams Ambulance Mechanic Relationship Specialty Start Date End Date Comfort Urban APRN PCP - General Family Medicine 07/19/17 [address] [facility] [place] [address] documented as of this encounter
--- OUTSIDE RECORDS SUMMARY | 2021-09-13 13:13 | XMS_ITS | Encounter Summary ---
:1985 Author Organization [facility] [place] [address] Care Team Providers Name Role Phone Comfort Urban APRN Primary Care Provider Reason for Visit Reason Onset Date Comments Disability Paperwork 08/31/2021 FMLA Paperwork Encounter Details Date Type Department Care Team Description 08/31/2021 Telephone Neurology at [facility] Tereso Mohan, Disability Paperwork [facility] (FMLA Paperwork) [place] [address] NEUROLOGY DEPT[address] [place], [place] [address] (Wo rk) Social History Tobacco [...] this encounter Miscellaneous Notes Telephone Encounter - Elizabeth Ledesma RN - 09/01/2021 4:24 PM EDT Completed paperwork faxed to [employer]. And copy sent to Medical Records. Telephone Encounter - Palak Howard RN - 09/01/2021 9:03 AM EDT Form forwarded to provider for completion Telephone Encounter - Aviva Lopes LNA - 08/31/2021 11:47 AM EDT Records received through [employer] and processed as below: FMLA/Disability Paperwork received via fax and is with flow staff for processing documented in this encounter Plan of Treatment Not on filedocumented as of this encounter Visit Diagnoses Not on filedocumented in this encounter Care Teams Emergency Room Physician Assistant Relationship Specialty Start Date End Date Comfort Urban APRN PCP - General Family Medicine 07/19/17 [place] [address] documented as of this encounter
--- OUTSIDE RECORDS SUMMARY | 2021-09-13 13:13 | XMS_ITS | Encounter Summary ---
:1985 Author Organization [place] [address] Care Team Providers Name Role Phone Comfort Urban APRN Primary Care Provider Reason for Visit Auth/Cert Specialty Diagnoses / Procedures Referred By Contact Refer red To Contact Diagnoses Lumbar radiculopathy lumbar radiculopathy Procedures PRO INJECTION DX/THER SBST INTRLMNR LMBR/SAC W/IMG GDN INJECTION, EPIDURAL, LUMBAR OR SACRAL (CAUDAL), WITH IMAGING GUIDANCE (WRVU 1.8) Referral ID Status Reason Start Date Expiration Date Visits Requ ested Visits Authorized [id number] 1 1 Encounter Details Date Type Department Care Team Description 05/18/2021 Hospital Encounter Pain Management Sarah Munguia MD Radiculopathy of [facility] region [facility] [place] [id number] [phone] Social History Tobacco Use Types Packs/Day Years [...] Sign Reading Time Taken Comments Blood Pressure 140/83 05/18/2021 11:00 AM EDT Pulse - - Temperature - - Respiratory Rate 20 05/18/2021 10:30 AM EDT Oxygen Saturation 100% 05/18/2021 11:00 AM EDT Inhaled Oxygen Concentration - - Weight 73.9 kg (163 lb) 05/18/2021 10:30 AM EDT Height 154.9 cm (5' 1) 05/18/2021 10:30 AM EDT Body Mass Index 30.8 05/18/2021 10:30 AM EDT documented in this encounter Discharge Instructions Discharge InstructionsNigel Bartlett - 05/18/2021 10:47 AM EDT Pain Management Center Discharge Instructions: You were seen today by Surgeon(s): Sarah Munguia MD Mainkar, Ojas A, MD The following was performed: Procedure(s) (LRB): INJECTION, EPIDURAL, LUMBAR OR SACRAL (CAUDAL), WITH IMAGING GUIDANCE (WRVU 1.8) (Midline) It is normal that the injection site will be sore for up to 48 hours. {CHECK BOX SELECTION:29219} You may also experience mild stiffness in the joint near the injection site. You may resume your normal activities: {Time; today/tomorrow:44300}. You may shower today. DO NOT tub bathe, use whirlpools, hot tubs or pool therapy for 2 days. Remove Band-Aid(s) later today/tomorrow. Do not drive until tomorrow. Use caution walking/climbing stairs as you may be unsteady on your feet. You may use your usual medications, including pain medications, as directed, unless otherwise instructed. You may use an ice pack as needed for the first 24 hours, on for 20 minutes then off for 20 minutes.Do not apply heat today. Attempt to empty your bladder 4-6 hours after your procedure. {CHECK BOX SELECTION:34561} If you have diabetes, monitor your blood sugars frequently. If your blood sugar increases and is of concern, contact your Primary Care Provider. You received the following medications: Medications Given During Procedure Date/Time Order Dose Route Action 05/18/2021 1105 iohexoL (Omnipaque) (240 mg/mL) solution 2 mL Epidural Given 05/18/2021 1105 lidocaine (pf) (Xylocaine) (10 mg/mL) 1% injection 1 mL Subcutaneous Given 05/18/2021 1105 methylPREDNISolone acetate (DEPO-Medrol) (80 mg/mL) injection 80 mg Epidural Given During regular business hours, please phone the Pain Management Center at with any questions or if the following or other troubling symptoms develop: 1) Prolonged dizziness or weakness (more than 1 day). 2) Localized swelling, redness or drainage at the injection site(s). 3) Temperature of 101 degrees that lasts for more than 4 hours. After 5 PM or on weekends, call and ask for Pain Clinic provider on-call. If you are unable to reach the Pain Management Center and have a complication, please call your Primary Care Provider or proceed to your local emergency department. NIGEL BARTLETT Special instructions documented in this encounter Medications at Time of Discharge Medication Sig Dispensed Refills Start Date End Date cholecalciferol, Vitamin Take 1 tablet by 90 tablet 3 04/10 D3, 50 mcg (2,000 unit) mouth daily. Tablet meloxicam (MOBIC) 15 mg Take 1 tablet by 30 tablet 12 2020 Tablet mouth daily. ProAir HFA 90 INL 1 TO 2 PFS PO Q 0 04/20/2019 mcg/actuation HFA Aerosol 4 TO 6 H PRN Inhaler ARIPiprazole (ABILIFY) 2 Take 2 mg by mouth 0 05/2017 mg Tablet daily. citalopram (CELEXA) 20 mg Take 40 mg by mouth 0 1 04/06/2017 Tablet daily. FLOVENT HFA 110 Inhale 2 puffs into 0 03/21/2018 mcg/actuation HFA Aerosol the lungs 2 times Inhaler daily. UNABLE TO FIND Take by mouth as 0 needed. Med Name: CBD oil gabapentin (Neurontin) Take 1 capsule by 90 capsule 12 202106/05/2021 100 mg Capsule mouth 3 times daily. divalproex EC (Depakote) TAKE 1 TABLET BY 190 tablet 1 03/2806/05/2021 250 mg Tablet, Delayed MOUTH TWICE DAILY Release (E.C.) topiramate (Topamax) 200 Take 1 tablet by 180 tablet 1 11/2905/23/2021 mg Tablet mouth 2 times daily. MARIJUANA INHL Inhale into the 0 06/05 lungs as needed. atorvastatin (LIPITOR) 20 Take 20 mg by mouth 0 0 03/05/2018 07/04/2021 mg Tablet nightly. documented as of this encounter H&P Notes Renato Moise MD - 05/17/2021 9:20 PM EDT Patient Name: Bessie Levy Patient Age: 35 y.o. Birthdate: 1985 Admit date: (Not on file) Attending Physician: Sarah Munguia MD PREPROCEDURE HISTORY AND PHYSICAL Date of Visit: May 17, 2021 Chief Complaint: Radiculopathy of lumbar region HPI: Bessie Levy is a 35 y.o. female who presents today for LESI with a diagnosis of Radiculopathy of lumbar region . The history is obtained from the patient, and I have reviewed medical records provided by the referring physician and located in the electronic medical record to fill in gaps in the patient's recollection of events, treatments and outcomes. PAST MEDICAL HISTORY: No past medical history on file. There are no medical history contraindications to this procedure. PAST SURGICAL HISTORY: No past surgical history on file. There are no past surgical contraindications to this procedure ALLERGIES: Patient has no known allergies. There are no allergic contraindications to this procedure. MEDICATIONS: No current facility-administered medications for this encounter. Current Outpatient Medications: ??? cholecalciferol, Vitamin D3, 50 mcg (2,000 unit) Tablet, Take 1 tablet by mouth daily., Disp: 90tablet, Rfl: 3 ??? gabapentin (Neurontin) 100 mg Capsule, Take 1 capsule by mouth 3 times daily. (Patient taking differently: Take 100 mg by mouth 3 times daily.), Disp: 90 capsule, Rfl: 12 ??? divalproex EC (Depakote) 250 mg Tablet, Delayed Release (E.C.), TAKE 1 TABLET BY MOUTH TWICE DAILY (Patient taking differently: 500 mg nightly. 250mg in the morning, 500mg nightly), Disp: 190 tablet, Rfl: 1 ??? topiramate (Topamax) 200 mg Tablet, Take 1 tablet by mouth 2 times daily., Disp: 180 tablet, Rfl: 1 ??? meloxicam (MOBIC) 15 mg Tablet, Take 1 tablet by mouth daily., Disp: 30 tablet, Rfl: 12 ??? MARIJUANA INHL, Inhale into the lungs as needed., Disp: , Rfl: ??? ProAir HFA 90 mcg/actuation HFA Aerosol Inhaler, INL 1 TO 2 PFS PO Q 4 TO 6 H PRN, Disp: , Rfl: ??? ARIPiprazole (ABILIFY) 2 mg Tablet, Take 2 mg by mouth daily., Disp: , Rfl: 0 ??? citalopram (CELEXA) 20 mg Tablet, Take 20 mg by mouth daily., Disp: , Rfl: 0 ??? atorvastatin (LIPITOR) 20 mg Tablet, Take 20 mg by mouth nightly., Disp: , Rfl: 0 ??? FLOVENT HFA 110 mcg/actuation HFA Aerosol Inhaler, Inhale 2 puffs into the lungs 2 times daily.,Disp: , Rfl: 0 ??? UNABLE TO FIND, Take by mouth as needed. Med Name: CBD oil, Disp: , Rfl: There are no medication contraindications to this procedure. FAMILY HISTORY: No family history on file. SOCIAL HISTORY: Social History Socioeconomic History ??? Marital status: Spouse name: Not on file ??? Number of children: Not on file ??? Years of education: Not on file ??? Highest education level: Not on file Occupational History ??? Not on file Tobacco Use ??? Smoking status: Never Smoker ??? Smokeless tobacco: Never Used Vaping Use ??? Vaping Use: Never used Substance and Sexual Activity ??? Alcohol use: Never ??? Drug use: Yes Types: Marijuana Comment: marijuana use daily pt vapes marijuana ??? Sexual activity: Not on file Comment: deferred Other Topics Concern ??? Not on file Social History Narrative ??? Not on file Social Determinants of Health Financial Resource Strain: Not on file Food Insecurity: Not on file Transportation Needs: Not on file Physical Activity: Not on file Housing Stability: Not on file There are no social history contraindications to this procedure. ROS: Review of Systems Negative except as documented above PHYSICAL EXAM: There were no vitals taken for this visit. Physical Exam Constitutional: She appears well-developed and well-nourished. No distress. Cardiovascular: Normal heart rate. Pulmonary/Chest: Effort normal and breath sounds normal. Skin: She is not diaphoretic. This is no rash, apparent infection, or other abnormality to the area of the proposed injection. There are no physical examination findings which would preclude this procedure. ASSESSMENT: Radiculopathy of lumbar region PLAN: Proceed with procedure as planned. Thank you for the opportunity to participate in Bessie Levy's care. Please feel free to contactme with any questions. Sincerely, Renato Moise MD Pain Medicine Fellow documented in this encounter Miscellaneous Notes Op Note - Sarah Munguia MD - 05/18/2021 11:02 AM EDT Pain Management Operative Note Patient Name: Bessie Levy : [id number] MR#: [id number] Case Date: 05/18/2021 Surgeon: Surgeon(s) and Role: * Sarah Munguia MD - Primary * Renato Moise MD - Fellow Present on Admission: ??? Radiculopathy of lumbar region Postoperative diagnosis: SAME LUMBAR INTERLAMINAR EPIDURAL STERIOID INJECTION PROCEDURE NOTE Ms. Bessie Levy has been referred to the Pain Management Center for a lumbar epidural steroid injection by SELVIN Purdy DR [facility] [place] [address]. The patient complains of low back pain with pain radiating down the right leg. Ms. Levy was greeted by the nurse who verified patients name and . The patient was then taken to the fluoroscopy suite. Ms. Levy was interviewed and the medical record reviewed. There were no medical, pharmacologic, radiographic, or other structural contraindications to attempting fluoroscopically guided lumbar epidural steroid injection. Risks and potential side effects, as well as potential benefits of the procedure were reviewed with Ms. Levy. Her voiced concerns were addressed. After I was assured that informed consent was obtained, the patient consent form was signed. Standard time-out procedure was performed. Ms. Levy was placed in the prone position on the fluoroscopy table and automated blood pressure cuff and pulse oximeter applied. The skin entry point for entering/approaching the right L4-L5 epiduralspace for the lumbar epidural steroid injection was marked. Following thorough chlorhexadine preparation of the skin and draping and 1% lidocaine infiltration of the skin entry point and subcutaneous tissues, an 18 gauge Touhy needle was placed and advanced under fluoroscopic guidance and with loss ofresistance technique into the right L4-L5 epidural space. Needle tip placement and depth were aided and confirmed by fluoroscopy. There was no paresthesia or return of blood or CSF through the needle. 2 cc's of Omnipaque 240 was injected (48 cc's was wasted) with clear epidural spread confirmed with fluoroscopy. 80 mg of preservative-free Depomedrol (80 mg/cc) and 2 ml of 1% lidocaine preservative free was injected. This was followed by 1 cc of preservative-free normal saline to flush the steroid out of the needle. There was not any unusual discomfort expressed by Ms. Levy. (48 cc of Omnipaque was wasted) Patient's neurological examination was unchanged postprocedure. Ms. Levy's vital signs were stable throughout the procedure and were as recorded in nursing records. Follow up plans and appointments were discussed with Ms. Levy. The patient is set to follow up with in 4 weeks. Post procedure instruction was given as documented in nursing records and havingmet discharge criteria he was discharged from the Pain Management Center. Comments: If this procedure is successful in helping with pain and improving her function, it can becompleted a maximum of 3 times every 12 months. I was the attending physician supervising the fellow in the above care and I was present with the fellow for the entire procedure. Sarah Munguia MD Pain Management [facility] Metal Forger'S Assistant of Anesthesiology [employer] [address] [phone] / [facility] CC: Comfort Urban APRN [facility] [address] [facility] [place] [address] documented in this encounter Plan of Treatment Not on filedocumented as of this encounter Procedures Procedure Name Priority Date/Time Associated Diagnosis Comme nts INJECTION, EPIDURAL, 05/18/2021 11:01 AM Radiculopathy of lumbar LUMBAR OR SACRAL EDT region (CAUDAL), WITH IMAGING GUIDANCE (WRVU 1.8) INJECTION, EPIDURAL, Routine 05/18/2021 10:35 AM Radiculopathy of lumbar LUMBAR OR SACRAL EDT region (CAUDAL), WITH IMAGING GUIDANCE documented in this encounter Visit Diagnoses Diagnosis Radiculopathy of lumbar region - Primary Thoracic or lumbosacral neuritis or radi culitis, unspecified documented in this encounter Active and Recently Administered Medications Times are shown in EDT. PRN Medication Order 05/16/2021 05/17/2021 05/18/2021 iohexoL (Omnipaque) (240 mg/mL) solution (CANCELED) 1105 (Given - Provider: Renato Moise MD) ONCE PRN, Starting on Alejandra 05/18/21 at 110 5, Until Alejandra 05/18/21 at 1315, Intra- Operative (Intra-Procedure), Routine lidocaine (pf) (Xylocaine) (10 mg/mL) 1% injection (CANCELED) 1105 (Given - Provider: Renato Moise MD) ONCE PRN, Starting on Alejandra 05/18/21 at 110 5, Until Alejandra 05/18/21 at 1315, Intra- Operative (Intra-Procedure), Routine methylPREDNISolone acetate (DEPO-Medrol) (80 mg/mL) injection (C ANCELED) 1105 (Given - Provider: Renato Moise MD) ONCE PRN, Starting on Alejandra 05/18/21 at 110 5, Until Alejandra 05/18/21 at 1315, Intra- Operative (Intra-Procedure), Routine documented in this encounter Care Teams Home Fire Alarm Installer Relationship Specialty Start Date End Date Comfort Urban APRN PCP - General Family Medicine 07/19/[address] [place] [address] documented as of this encounter
--- OUTSIDE RECORDS SUMMARY | 2021-09-13 13:13 | XMS_ITS | Encounter Summary ---
:1985 Author Organization [facility] [place] [address] Care Team Providers Name Role Phone Comfort Urban APRN Primary Care Provider Reason for Visit Reason Onset Date Comments Medication Refill 05/23/2021 Encounter Details Date Type Department Care Team Description 05/23/2021 Refill Neurology at [facility] Tereso Mohan MD [facility] [place] [address] NEUROLOGY DEPT. [phone] [place], [place] [address] (Wo rk) Social History Tobacco [...] this encounter Miscellaneous Notes Telephone Encounter - Zohra Lane CMA - 05/23/2021 1:53 PM EDT Surescript request for : topiramate Last rx: 11/29/20 Quantity: 180 Refills: 1 Last appt: 04/07/21 Next appt: 4/4/22 documented in this encounter Plan of Treatment Not on filedocumented as of this encounter Visit Diagnoses Not on filedocumented in this encounter Care Teams Cognos Analyst Relationship Specialty Start Date End Date Comfort Urban APRN PCP - General Family Medicine 07/19/17 [address] [place] [address] documented as of this encounter
--- OUTSIDE RECORDS SUMMARY | 2021-09-13 13:13 | XMS_ITS | Encounter Summary ---
:1985 Author Organization [facility] [place] [address] Care Team Providers Name Role Phone JaydonComfort king SELVIN Primary Care Provider Encounter Details Date Type Department Care Team Description 07/04/2021 Hospital Encounter [place] [address] Social History Tobacco Use Types Packs/Day Years [...] on file documented as of this encounter Medications at Time of Discharge Medication Sig Dispensed Refills Start Date End Date topiramate (Topamax) 200 Take 1/2 a pill in 180 tablet 1 06/2021 mg Tablet AM and 1 pill in PM divalproex EC (Depakote) 250mg in the 90 tablet 250 mg Tablet, Delayed morning, 500mg Release (E.C.) nightly cholecalciferol, Vitamin Take 1 tablet by 90 [...] as 0 needed. Med Name: CBD oil cloBAZam (Onfi) 10 mg Take 1 tablet by 30 tablet 5 06/06/19 22 09/05/2021 Tablet mouth nightly. documented as of this encounter Plan of Treatment Not on filedocumented as of this encounter Visit Diagnoses Not on filedocumented in this encounter Care Teams Internet Marketing Manager Relationship Specialty Start Date End Date Comfort Urban APRN PCP - General Family Medicine 07/19/17 [address] [place] [address] documented as of this encounter
--- OUTSIDE RECORDS SUMMARY | 2021-09-13 13:13 | XMS_ITS | Encounter Summary ---
:1985 Author Organization [facility] [place] [address] Care Team Providers Name Role Phone Comfort Urban APRN Primary Care Provider Encounter Details Date Type Department Care Team Description 07/28/2021 Telephone [place]rology [place] [facility]reso Mohan MD [facility] [place] [address] NEUROLOGY DEPT. [phone] [place], [place] [address] (Wo rk) Social History Tobacco [...] Telephone Encounter - Elizabeth Ledesma RN - 07/28/2021 1:49 PM EDT Call placed to patient. LVM. Advised to call back to discuss FMLA paperwork. documented in this encounter Plan of Treatment Not on filedocumented as of this encounter Visit Diagnoses Not on filedocumented in this encounter Care Teams Hearing Aid Assistant Relationship Specialty Start Date End Date Comfort Urban APRN PCP - General Family Medicine 07/19/17 [address] [place] [address] documented as of this encounter
--- OUTSIDE RECORDS SUMMARY | 2021-09-13 13:13 | XMS_ITS | Encounter Summary ---
:1985 Author Organization [facility] [place] [address] Care Team Providers Name Role Phone Comfort Urban APRN Primary Care Provider Reason for Visit Reason Comments Follow-up Pain was in mid-lower back, but has subsided and now is in upper back and neck. Encounter Details Date Type Department Care Team Description 06/19/2021 Office Visit [facility] Skylar Munguia MD Chronic pain syndrome; at [facility] Radiculopathy of lumbar kartik on [facility] [address] [facility]NAGEMENT [place] [phone] Social History Tobacco Use Types Packs/Day Years [...] Sign Reading Time Taken Comments Blood Pressure 126/75 06/19/2021 1:59 PM EDT Pulse 69 06/19/2021 1:59 PM EDT Temperature - - Respiratory Rate - - Oxygen Saturation 100% 06/19/2021 1:59 PM EDT Inhaled Oxygen Concentration - - Weight 73.9 kg (163 lb) 06/19/2021 1:59 PM EDT Height 154.9 cm (5' 1) 06/19/2021 1:59 PM EDT Body Mass Index 30.8 06/19/2021 1:59 PM EDT documented in this encounter Progress Notes Sarah Munguia MD - 06/19/2021 2:00 PM EDT [facility] follow-up visit note Date of visit: 06/19/21 : 1985 Chief Complaint Patient presents with ??? Follow-up Pain was in mid-lower back, but has subsided and now is in upper back and neck. History of Present Illness: Patient was last seen in the clinic on 05/15/2021. Since her last visit, patient reports : -She underwent repeat L4-L5 right paramedian interlaminar epidural steroid injection on 05/18/2021. Patient reports experiencing almost 100% pain improvement with that procedure. -Patient states that her pain is manageable at this point. - External physical therapy referral was ordered on last visit but patient was not able to schedule physical therapy due to personal reasons. -She continues to follow-up with neurology and is scheduled for a video EEG. -No other acute events or new medical problems since last visit Original subjective Bessie Levy is a 35 y.o. female with history of depression, seizure disorder, fibromyalgia, migraine, hypertension, GERD, anxiety, ASD s/p surgery in childhood, who presents for initial evaluation. The patient reports that her low back pain problems started insidiously 3 to 4 years ago but worsened about a year ago when she started experiencing right leg pain as well. Patientlast trialed physical therapy for back pain 2 years ago. Patient is under the care of Dr. Mohan, neurology for her seizure disorder who referred patient to pain clinic for potential lumbar epidural steroid injection. Patient has not trialed any injections previously. Pain location: Right more than left low back pain spreading to buttocks, right lateral thigh, right lateral calf to right ankle. 50% of pain in the leg and 50% back. Quality and timing of pain: burning and sharpcontinuously Pain rating: intensity averages 2, on a 0-10 scale. Aggravating factors include: standing and exercise Relieving factors include: lying down Denies red flags including: bowel or bladder symptoms, fever, chills, saddle anesthesia, profound motor loss, history of cancer, history of immune compromise, weight loss. Current pain treatments include: Depakote Topamax Meloxicam Abilify Gabapentin Pain medications are being prescribed by primary care team/neurology. Previous pain treatments included: Bessie Levy has not been seen at a pain clinic in the past. Medications: yes, gabapentin-seizures PT: yes Psychology: no Acupuncture: no administrator health care facility: no TENS Unit: no Injections: Patient underwent L4-L5 right paramedian interlaminar epidural steroid injection on 01/29/2020. Patient reports at least 80% overall pain improvement and 98% leg pain improvement with that injection. Surgery: no Diagnostic Tests: MRI LUMBAR SPINE WO CONTRAST (GENERIC) 11/30/19 ?? CLINICAL HISTORY: Back pain or radiculopathy, < 6 wks, uncomplicated ?? TECHNIQUE: MRI of the lumbar spine performed without intravenous contrast administration. ?? COMPARISON: None ?? FINDINGS: There is slight anterolisthesis of L4 on L5. Alignment is otherwise unremarkable. There is no focal, aggressive appearing marrow lesion. The conus is normal in appearance, terminates at L1-L2. Visualized retroperitoneal structures are unremarkable. ?? Findings at specific levels: L1-L2: No canal or foraminal stenosis. ?? L2-L3: No canal or foraminal stenosis. ?? L3-L4: There is no canal or foraminal stenosis. Mild facet degenerative change is present. ?? L4-L5: There is marked bilateral facet arthropathy with narrowing of the right subarticular recess to severe arthropathy and disc bulge. Disc bilateral foraminal narrowing. Mild overall canal narrowing due to combination of disc bulge, facet arthropathy, and prominent epidural fat. ?? L5-S1: There is bilateral facet arthropathy without foraminal stenosis. Moderate canal narrowing is due to prominent epidural fat. ?? IMPRESSION Lumbar spine degenerative changes most pronounced at L4-5 where there is disc bulging and bilateral facet arthropathy. Review of Pain Questionnaire: Please see the [facility] [place] health questionnaire, which the patient completed and reviewed with me in detail. Review of Electronic Chart: Today I have also reviewed available medical information in the patient's medical record at [facility] including relevant provider notes, laboratory work, and imaging. Past Medical History: Patient Active Problem List Diagnosis Code ??? CIS - ASD, S/P repair ??? CIS - Asthma ??? CIS - Depression ??? CIS - Entered not Verified ??? CIS - Hx CHTN ??? Seizures R56.9 ??? Radiculopathy of lumbar region M54.16 Past Surgical History: Reviewed Medications: Current Outpatient Medications: ??? topiramate (Topamax) 200 mg Tablet, Take 1/2 a pill in AM and 1 pill in PM, Disp: 180 tablet, Rfl: 1 ??? divalproex EC (Depakote) 250 mg Tablet, Delayed Release (E.C.), 250mg in the morning, 500mg nightly, Disp: 90 tablet, Rfl: 11 ??? cloBAZam (Onfi) 10 mg Tablet, Take 1 tablet by mouth nightly., Disp: 30 tablet, Rfl: 5 ??? cholecalciferol, Vitamin D3, 50 mcg (2,000 unit) Tablet, Take 1 tablet by mouth daily., Disp: 90tablet, Rfl: 3 ??? meloxicam (MOBIC) 15 mg Tablet, Take 1 tablet by mouth daily., Disp: 30 tablet, Rfl: 12 ??? ProAir HFA 90 mcg/actuation HFA Aerosol Inhaler, INL 1 TO 2 PFS PO Q 4 TO 6 H PRN, Disp: , Rfl: ??? ARIPiprazole (ABILIFY) 2 mg Tablet, Take 2 mg by mouth daily., Disp: , Rfl: 0 ??? citalopram (CELEXA) 20 mg Tablet, Take 20 mg by mouth daily., Disp: , Rfl: 0 ??? UNABLE TO FIND, Take by mouth as needed. Med Name: CBD oil, Disp: , Rfl: ??? atorvastatin (LIPITOR) 20 mg Tablet, Take 20 mg by mouth nightly., Disp: , Rfl: 0 ??? FLOVENT HFA 110 mcg/actuation HFA Aerosol Inhaler, Inhale 2 puffs into the lungs 2 times daily.,Disp: , Rfl: 0 Allergies: No Known Allergies Social History: Social History Socioeconomic History ??? 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 HENT: No recent hearing changes. No difficulty swallowing. Eyes: No recent vision changes. Respiratory: No cough or shortness of breath. Cardiovascular: No chest pain or syncope. GI: No diarrhea, nausea, vomiting, or constipation. : No dysuria, hesitancy, or urgency. No incontinence. Musculoskeletal: No muscle weakness. Low back pain Skin: No rashes or lesions. Neurologic: No numbness/tingling. No difficulty with balance. History of seizure disorder Psychiatric: Mood ok. No SI/HI. Sleep is good. Heme/Lymph/Imm: No easy bleeding or brusing. PHYSICAL EXAM: General: Patient is seated comfortably in NAD, well-groomed. HEENT: Head atraumatic, EOMI. Respiratory: Breathing comfortably on RA. Cardiovascular: 2+ peripheral pulses, no swelling Abdominal: non-distended, non-tender to palpation Skin: No appreciable rashes or skin breakdown Psych: Appropriate affect, A&Ox3 , answers questions appropriately Musculoskeletal: Inspection - No gross appendicular or axial deformities Negative bilateral PSIS tenderness Negative bilateral ROBYN test Negative bilateral straight leg raise test bilateral lumbar paraspinal tenderness with taut tender muscle bands Neurologic: director electronics - grossly intact Reflexes - 2+ and symmetric in bilateral patellae, and Achilles. No ankle clonus. Motor - 5/5 in all planes of motion in both lower extremities. Sensation - Intact to light touch throughout lower extremities Gait/Station: Transitions from exam room chair to table without difficulty. Assessment: Bessie Levy is a 35 y.o. female with history of depression, seizure disorder, fibromyalgia, migraine, hypertension, GERD, anxiety, ASD s/p surgery in childhood, occasional marijuana use : #1 chronic right more than left low back pain radiating to L5 dermatome, likely related to L5 radiculopathy. Minor component of right sacroiliac joint dysfunction. MRI of lumbar spine demonstrates bilateral L4-L5 neural foraminal stenosis with mild spinal canal stenosis. Patient experienced at least 80% pain improvement with L4-L5 right paramedian interlaminar epidural steroid injection for about 15 months followed by return of pain. Repeat injection has provided almost 100% pain improvement. Patient was educated about signs and symptoms of cauda equina syndrome including new numbness, weakness, bladder bowel incontinence or saddle anesthesia. Patient was instructed to call us or go to the emergency room if they experiences any of the symptoms. Patient verbalized understanding. #2 chronic pain syndrome Plan: Diagnosis reviewed, treatment option addressed, and risk/benefits discussed. Self-care instructions given. I am recommending a multidisciplinary treatment plan to help this patient better manage her pain. 1. Physical Therapy: Ordered external physical therapy refresher course referral on last visit but patient was not able to schedule due to personal reasons. She will call to get a new referral when sheis ready to start physical therapy. 2. Clinical Health Psychologist to address issues of relaxation, behavioral change, coping style, and other factors important to improvement: None at this point 3. Self Care Recommendations: Encouraged patient to be compliant to home exercise regimen 4. Diagnostic Studies: None at this point. Can consider repeat MRI of lumbar spine in future. Last MRI was done in November 2019. 5. Medication Management: -Continue current medication regimen as per neurology 6. Further procedures recommended: None at this point. -Can consider repeat L4-L5 right paramedian interlaminar epidural steroid injection under fluoroscopy guidance in future based on duration of pain relief. 7. Referrals: Continue follow-up with neurology 8. Release of information: Previous records reviewed 9. Follow up: Patient will call to schedule a follow-up appointment in future if her pain worsens. Sarah Munguia MD [facility] Spikemaking Supervisor of Anesthesiology [facility] [address] [address] / [facility] CC: Comfort Urban APRN [address] [place] [address] documented in this encounter Plan of Treatment Not on filedocumented as of this encounter Visit Diagnoses Diagnosis Chronic pain syndrome Radiculopathy of lumbar region Thoracic or lumbosacral neuritis or radi culitis, unspecified documented in this encounter Care Teams Aircraft Communicator Relationship Specialty Start Date End Date Comfort Urban APRN PCP - General Family Medicine 07/19/17 [place] [address] documented as of this encounter
--- OUTSIDE RECORDS SUMMARY | 2021-09-13 13:13 | XMS_ITS | Encounter Summary ---
:1985 Author Organization [facility] [place] [address] Care Team Providers Name Role Phone Comfort Urban SELVIN Primary Care Provider Reason for Visit Reason Onset Date Comments Follow-up 08/15/2021 Letter/Form 08/15/2021 Return to work Certi fication - [employer] for Duty Encounter Details Date Type Department Care Team Description 08/15/2021 Telephone Neurology at [facility] Tereso Mohan, Follow-up ; Letter/Form [facility] (Return to work [address] [facility] [place] [address] [address] for Duty) [phone] NEUROLOGY DEPT. [place], [place] [address] Social History Tobacco Use Types [...] Telephone Encounter - Elizabeth Ledesma RN - 09/08/2021 9:14 AM EDT Completed FMLA paperwork faxed [employer] and to medical records. Telephone Encounter - Palak Howard RN - 08/18/2021 8:28 AM EDT FMLA paperwork placed in provider mailbox for completion Telephone Encounter - Saba Lamb LNA - 08/17/2021 1:04 PM EDT Form put into nurses mailbox for completion Telephone Encounter - Palak Howard RN - 08/15/2021 10:13 AM EDT Return to work Paperwork received via Fax At present paperwork is with clinical support manager is being filled out Will place in providers box when ready for provider to review and complete. documented in this encounter Plan of Treatment Not on filedocumented as of this encounter Visit Diagnoses Not on filedocumented in this encounter Care Teams Bar Waiter/Waitress Relationship Specialty Start Date End Date Comfort Urban APRN PCP - General Family Medicine 07/19/17 [address] [facility] [place] [address] documented as of this encounter
--- OUTSIDE RECORDS SUMMARY | 2021-09-13 13:13 | XMS_ITS | Encounter Summary ---
:1985 Author Organization [facility] [place] [address] Care Team Providers Name Role Phone JaydonComfort king APRN Primary Care Provider Reason for Visit Reason Onset Date Comments Patient Education 06/29/2021 Encounter Details Date Type Department Care Team Description 06/29/2021 Telephone Neurology at [facility] Tereso Mohan MD Patient Education [facility] [place] [address] NEUROLOGY DEPT. [phone] [place], [place] [address] (Wo rk) Social History Tobacco [...] this encounter Miscellaneous Notes Telephone Encounter - Bette Carver RN - 06/29/2021 2:53 PM EDT We are calling you to review your admission planned for: 07/04/21 The day of your admission you must call Patient Placement at 10:00 am to confirm there will be a bedavailable for you. Their phone number is [phone]. Sometimes the hospital does not have an available bed and your admission needs to be postponed. Postponing the admission doesn???t happen often, but is a possibility. After admissions has given you the OK to proceed to [facility] for the admission, you will need to arrive in 3C clinic at 1pm. You will have a clinic appointment with the Admitting NeurologyTeam. The Team will go over, in detail, your clinical history. This is to be able to best plan on how to monitor you while you are here. The Team that will see you in clinic includes a resident, an attending Epileptologist who may or may not be your regular doctor, and often med students are present as well. After the clinic appointment you may need to wait a while for your bed to be ready. Sometimes when the hospital is very busy it may be a few hours before the bed is ready. Having the clinic appointmentprior to going to your bed will help make getting testing started right away once you arrive to yourbed. Bring a snack in case you get hungry during your wait. Once you have arrived to your bed, the nurses will check you in and the diet technician registered will apply EEG electrodes to your scalp with a special glue. These electrodes will be checked and reinforced as needed throughout your hospital stay and be removed the day of discharge. A reminder that your admission is planned to last approximately 5-7 days. During your admission, you will be hooked up to EEG leads that are connected to video monitoring. The EEG lead connection has an approximately 12 foot bandwidth which will allow getting into a chair and getting to the bathroom. You will also be in your hospital room for the entire stay. Please bring activities to help keep youoccupied while you are here. Items you might consider bringing are DVD???s, books, crafts, games, and puzzles. There is a TV in each room. Electronics brought from home will need to be checked by our Engineering Staff. Bring a cell phone or a phone card if you will need to make long distance calls (calls outside of the local [facility] area). Please bring personal toiletries such as toothbrush and paste, deodorant, brush and such. You can bring your own Pajama???s but they need to be buttoned or zippered down the front. Know that you will NOT be able to shower until the EEG electrodes are removed on the day of discharge. Current medications and allergies reviewed, verified and updated as needed. Even though we just reviewed your medications please bring a list of these medications to the hospital. Please do NOT bring in your medications as they will need to go to the pharmacy during your stay and you will not have access to them until you are discharged. She was instructed to bring her Onfi and Mobic with her to the hospital and if they are available through the pharmacy then she will send them home with her boyfriend. She was instructed to take all ofher medications as prescribed and to not to attempt to wean any of her seizure medications. (If the patient is on any of the above medication/medication categories instruct the patient to bring that medication in its medication container to the hospital) There is no smoking on [facility] campus. If you feel this will be an issue for you, please let the doctorknow so they can order you a nicotine patch. You will NOT be allowed to be out of bed unassisted during your admission. Any time you are not in the bed or the chair a staff member will be with you. This includes being assisted and monitored for safety when in the bathroom. When sitting in the chair, you will be asked to wear a vest restraint for safety. When you are in bed the side rails will be up for safety as well. This is to keep you safe during any seizure event youmight have. You will have a small IV placed while you are here. This is for safety in case you need medication to stop a seizure quickly. On the day you are discharged you will need to have a ride available and in your hospital room by 10am. Will this be a problem for you? Her boyfriend will be there. Do you have any questions? All questions answered to the patient's satisfaction. She was provided with the phone number ([phone]) to the Neurology Clinic should she have any further questions or concerns. Bessie verbalized agreement and understanding to all of the above instructions and information. She is aware that she will be COVID tested upon admission. documented in this encounter Plan of Treatment Not on filedocumented as of this encounter Visit Diagnoses Not on filedocumented in this encounter Care Teams Stock Supervisor Relationship Specialty Start Date End Date Comfort Urban APRN PCP - General Family Medicine 07/19/17 [address] [place] [address] documented as of this encounter
--- OUTSIDE RECORDS SUMMARY | 2021-09-13 13:13 | XMS_ITS | Encounter Summary ---
:1985 Author Organization [facility] [place] [address] Care Team Providers Name Role Phone Comfort [...] Expiration Date Visits Requ ested Visits Authorized [id number] 1 1 Encounter Details Date Type Department Care Team Description 05/18/2021 Ancillary Procedure Pain Management Sa jesus Naranjo MD [facility] [place] [address] [place] [address] [phone] Social History Tobacco Use Types Packs/Day Years [...] Name Priority Date/Time Associated Diagnosis Comme nts FILM LIBRARY Routine 05/18/2021 12:56 PM Results for this STORAGE ONLY PAIN EDT procedure are in [facility]IC [facility] the results section. documented in this encounter Results Film Library- Storage Only pain Clinic [facility] (05/18/2021 12:56 PM EDT) Specimen (Source) Anatomical Location Collection Method / Collectio n Time Received Time / Laterality Volume Narrative [facility] - 05/18/2021 12:56 PM EDT See PACS for result report. Sarah Munguia MD IMJuan A FILM LIBRARY ORDERABLES Performing Organization Address City/State/ZIP Code Phon e Number [place], [place] documented in this encounter Visit Diagnoses Not on filedocumented in this encounter Care Teams Pediatric Social Worker Relationship Specialty Start Date End Date Comfort Urban APRN PCP - General Family Medicine 07/19/17 [place] [address] documented as of this encounter
--- OUTSIDE RECORDS SUMMARY | 2021-09-13 13:13 | XMS_ITS | Encounter Summary ---
:1985 Author Organization [facility] [place] [address] Care Team Providers Name Role Phone Comfort Urban APRN Primary Care Provider Encounter Details Date Type Department Care Team Description 06/05/2021 Office Visit Neurology at [facility] [place] Tereso Mohan MD [facility] [place] [address] NEUROLOGY DEPT. 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 You have had more than 1 kind of spell in the last year in spite of appropriate medication. I think we need to study this more closely. I would like to arrange for you to be admitted for inpatient video-EEG recording for several days. At this time we would reduce your medications and try to provoke some events and see what is happening electrically in your brain. That can guide further treatment In the meantime, please get some blood test done here today. Based just on what you are telling me, please make the following adjustments Please do not smoke marijuana. You can continue the CBD Please stop the gabapentin completely Please continue Depakote at the increased dose of 1 pill in the morning 2 pills at night Please reduce the dose of topiramate slightly from 1 pill twice a day to half a pill in the morning and 1 pill at night. Reducing the dose of topiramate may help the numbness in her hands. If it does not please call in [address] g[address] please start a new medication clobazam (Onfi) 10 mg nightly. That may help with the tremor and help you sleep. It is preferable from the seizure point of view to smoking marijuana Please call with any problems. I would aim to see you next at the time of your inpatient evaluation, or in any case in about 3 months. Tereso Mohan MD Professor of neurology, [facility] [employer] [facility] Department of Neurology, [address] Pager: [phone], #[phone] Email: [email or web address] documented in this encounter Progress Notes Tereso Mohan MD - 06/05/2021 3:00 PM EDT Neurology clinic note Chief complaint: [...] ?? 2. EEG: ?- Routine EEG:Done at [facility] [place] [facility] 05/05/18: Normal study. [...] that led to her being taken to [facility] emergency room. She had bitten side of her tongue quite badly, for the first time. She was discharged from there without change in me dication. She had another seizure at home and was taken to the emergency room at [facility] where she was held overnight. I [...] able to continue working full-time at the [employer]. As of 2020 she is doing quite well. She had one breakthrough convulsive seizure associated with missed doses of medication. She has had no other major medical problems. 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 She is having some mid back [...] twice daily to 250, 500 mg at [facility]. There have been no additional events in the past month. She continues to have a mild tremor that is somewhat worse since increasing Depakote She continues to have musculoskeletal pain in the neck and back. He is better following another lumbar epidural steroid injection. She has a new complaint which is numbness in the fingertips of 4 fingers but not the thumb. This is bilateral and came on quite suddenly. She does not describe cervical radicular symptoms.. The new symptoms do not extend beyond the fingertips. She does not have weakness or loss of coordination. She still works at the [employer] and is quite busy with her hands. Wrist splints have not made much difference. She does not have bowel or bladder dysfunction. There is no change in her gait. She does not have any symptoms in her feet or legs. 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 Currently working at the [employer]. ?? Family history: There is no family [...] Outpatient Medications Medication Sig Dispense Refill ??? cholecalciferol, Vitamin D3, 50 mcg (2,000 [...] ??? citalopram (CELEXA) 20 mg Tablet Take 20 mg by mouth daily. 0 ??? UNABLE TO FIND Take by mouth as needed. Med Name: CBD oil ??? topiramate (Topamax) 200 mg Tablet Take 1/2 a pill in AM and 1 pill in PM 180 tablet 1 ??? divalproex EC (Depakote) 250 mg Tablet, Delayed Release (E.C.) 250mg in the morning, 500mg nightly 90 tablet 11 ??? cloBAZam (Onfi) 10 mg Tablet Take 1 tablet by mouth nightly. 30 tablet 5 ??? atorvastatin (LIPITOR) 20 mg Tablet Take 20 mg by mouth nightly. 0 ??? FLOVENT HFA 110 mcg/actuation HFA Aerosol Inhaler Inhale 2 puffs into the lungs 2 times daily. 0 No current facility-administered medications for this visit. Physical Examination: BP 120/62 Pulse 73 Ht 154.9 cm (5' 1) Comment: reported Wt 73.9 kg (163 lb) BMI 30.80 kg/m?? HEENT: Unremarkable. Lungs: clear to auscultation [...] response was flexor bilaterally. ?? Cerebellar: Normal [id number] with mild action tremor. ?? Gait: gait was normal. 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 EEG: Routine EEG:Done at [facility] [facility] 05/05/18: Normal study. [...] (with Diff) ??? Ammonia ??? Topiramate level Orders Placed This Encounter Procedures ??? Valproic Acid Level, Total ??? [...] we should leave this alone for now. I think the numbness in her hands may be due to a side effect of a rather high dose of topiramate. Pritesh checking levels today, but have advised to reduce the dose of topiramate from 200 mg twice daily to 100, 200 mg. I am adding Onfi 10 mg nightly to her regimen for added seizure control and to help with sleep and tremor. I advised her to discontinue gabapentin and smoke marijuana. 2. Psychiatrically she looks like she is doing well. It is reasonable to can keep her on Abilify andCelexa as she suffered from suicidal depression in the past. 3. She was complaining of worsening sciatic pain and paresthesias on the right. Her exam is relatively benign now, but there was some sensory loss on the medial aspect of the leg and ankle. MRI findings were confirmatory as noted above. Lumbar epidural steroid injections have definitely helped. Thank you for this consultation. I will see the patient when she comes for inpatient video EEG monitoring, and also back in clinic in3 months, or sooner if necessary. I have asked her to call in 1 to 2 weeks to report the results of adjustments in her medications. Tereso Mohan MD [place] [address] Pager #[phone] Email: [email or web address] CC: Comfort Urban APRN documented in this encounter Miscellaneous Notes Addendum Note - Sunita Newman - 06/05/2021 3:00 PM EDT Addended by: SUNITA NEWMAN on: 06/05/2021 04:05 PM Modules accepted: Orders documented in this encounter Plan of Treatment Scheduled Orders Name Type Priority Associated Diagnoses Order S chedule EEG video monitoring Neurology Routine Seizures Expecte d: 07/05/2021 (Approximate), Expires: 01/04/2022 documented as of this encounter Procedures Procedure Name Priority Date/Time Associated Comments Diagnosis SCAN, PERIPHERAL Routine 06/05/2021 4:20 PM Resul ts for this BLOOD EDT procedure are i n the results section. HEMOGRAM Routine 06/05/2021 4:20 PM Seizures Results f or this EDT procedure are i n the results section. DIFFERENTIAL, Routine 06/05/2021 4:20 PM Seizures Results for this AUTOMATED EDT procedure are i n the results section. HC [facility] CARNITINE Routine 06/05/2021 4:20 PM Seizures Resul ts for this EDT procedure are i n the results section. HC [facility] TOPIRAMATE Routine 06/05/2021 4:20 PM Seizures Resu lts for this EDT procedure are i n the results section. HC CBC,PLT & AUTO Routine 06/05/2021 4:20 PM Seizures DIFF EDT HC AMMONIA, PLASMA Routine 06/05/2021 4:20 PM Seizures Res ults for this EDT procedure are i n the results section. HC VALPROIC ACID Routine 06/05/2021 4:20 PM Seizures Resul ts for this EDT procedure are i n the results section. HEPATIC FUNCTION Routine 06/05/2021 4:20 PM Seizures Resul ts for this PANEL EDT procedure are i n the results section. BASIC METABOLIC Routine 06/05/2021 4:20 PM Seizures Result s for this PANEL (NON-FASTING) EDT procedur e are in the results section. documented in this encounter Results Scan, Peripheral Blood (06/05/2021 4:20 PM EDT) P athologist Signature Plat Estimate Normal [facility] RBC Morphology Normal [facility] Specimen Anatomical Collection Method Collection Time Receive d Time (Source) Location / / Volume Laterality Blood 06/05/2021 4:20 PM 4:27 EDT PM EDT Resulting Agency Comment Spec In Lab Tereos Mohan MD HEMATOLOGY ORDERABLES Performing Organization Address City/State/ZIP Code Phon e Number [facility] [place] [address] (ABNORMAL) Differential, Automated (06/05/2021 4:20 PM EDT) Patholo gist Method Time Signature Neutrophils % 47.2 % [facility] Neutr Abs (ANC) 4.04 1.70 - [facility] 6.10 [facility] x10(3)/[facility] LABORATORY Lymphocytes % 31.9 % [facility] Lymphocytes Abs 2.7 0.9 - 3.2 [facility] x10(3)/[facility] LABORATORY Monocytes % 13.6 % [facility] Monocyte Abs 1.2 (H) 0.3 - 0.9 [facility] x10(3)/[facility] LABORATORY Eosinophils % 5.6 % [facility] Eosinophils Abs 0.5 (H) 0.0 - 0.4 [facility] x10(3)/[facility] LABORATORY Basophils % 1.1 % [facility] Basophils Abs 0.1 0.0 - 0.1 [facility] x10(3)/[facility] LABORATORY Immature Gran % 0.60 % [facility] Comment: Immature granulocytes(IG's)percentage an d absolute count will include metamyelocytes, myelocytes, and promyelo cytes. Blood smears from CBCs yielding IG's will be scanned manually for concor dance. If this scan disagrees with the automated IG or if promyelocytes are not ed, a manual differential will be performed. Miriam Gran Abs 0.05 (H) 0.00 - 0.04 x10(3)/[facility] LABORATORY Specimen Anatomical Collection Method Collection Time Receive d Time (Source) Location / / Volume Laterality Blood 06/05/2021 4:20 PM 4:27 EDT PM EDT Resulting Agency Comment Spec In Lab Tereso Mohan MD HEMATOLOGY ORDERABLES Performing Organization Address City/State/[place] [address] Hemogram (06/05/2021 4:20 PM EDT) P athologist Signature WBC 8.6 4.0 - 9.5 [facility] x10(3)/[facility] LABORATORY RBC 4.38 4.00 - [facility] 5.21 [facility] x10(6)/[facility] LABORATORY Hemoglobin 13.2 11.7 - [facility] 15.5 g/dL [facility] Hematocrit 39.2 35.7 - [facility] 45.8 % [facility] MCV 89.5 82.6 - MARYANN KENDALLCOCK 94.4 [facility] LABORATORY MCH 30.1 27.1 - MARYANN [place] 32.0 pg [facility]ATORY MCHC 33.7 31.7 - MARYANN WINKLER 35.0 g/dL [facility] Platelets 270 145 - 357 MARYANN WINKLER x10(3)/[facility] LABORATORY RDWSD 38.5 37.0 - MARYANN WINKLER 46.0 [facility] LABORATORY RDWCV 11.8 11.5 - MARYANN WINKLER 14.1 % [facility] LABORATORY MPV 9.2 7.6 - 12.9 MARYANN WINKLER [facility] LABORATORY nRBC % Auto 0.0 % [facility] nRBC Abs Auto 0.000 0.000 - MARYANN WINKLER 0.000 [facility] x10(3)/[facility] LABORATORY Specimen Anatomical Collection Method Collection Time Receive d Time (Source) Location / / Volume Laterality Blood 06/05/2021 4:20 PM 4:27 EDT PM EDT Resulting Agency Comment Spec In Lab Tereso Mohan MD HEMATOLOGY ORDERABLES Performing Organization Address City/State/[place] [address] Carnitine (06/05/2021 4:20 PM EDT) [facility] Method Time Signature Carnitine MARYANN Test ?Result ?Flag ??Unit ? RefValue CAHTI [facility] ??Total ? 53 ?nmol/mL ??34-78 LABORATORY ??Free (FC) ? 44 ?nmol/mL ??25-54 ??Acylcarnitine (AC) ?9 ? nmol/mL ??5-30 ??AC/FC Ratio ? 0.2 ?0.1-0.8 ??Interpretation ?In this sample, the carnitine profile was normal. ? ADDITIONAL INFORMATION ------ ?This test was developed and its performance characteri stics ?determined by [facility] in a manner consistent with CLIA ?requirements. This test has not been cleared or approv ed by ?the U.S. Food and Drug Administration. ?Test Performed by: ?[facility] - [facility] ?[address] [place] [address] ?[employer]: Tito King M.D. Ph.D.; CLIA# [id number] Specimen Anatomical Collection Method Collection Time Receive d Time (Source) Location / / Volume Laterality Blood 06/05/2021 4:20 PM 2 3:15 EDT PM EDT Resulting Agency Comment Spec In Lab Tereso Mohan MD CHEMISTRY ORDERABLES Performing Organization Address City/State/[place] [address] Ammonia (06/05/2021 4:20 PM EDT) athologist Signature Ammonia 45 11 - 51 [facility] LABORATORY Specimen Anatomical Collection Method Collection Time Receive d Time (Source) Location / / Volume Laterality Blood 06/05/2021 4:20 PM 2 4:25 EDT PM EDT Resulting Agency Comment Spec In Lab Tereso Mohan MD CHEMISTRY ORDERABLES Performing Organization Address City/[facility] Phon e Number [address] Topiramate level (06/05/2021 4:20 PM EDT) athologist Signature Topiramate Lvl 11.3 mcg/mL [facility] Comment: REFERENCE VALUE------ Reference values depend on clinical use: Anticonvulsant: 5.0-20.0 mcg/mL Psychiatric: 2.0-8.0 mcg/mL ADDITIONAL INFORMATIO N This test was developed and its performa nce characteristics determined by [facility] in a manner co nsistent with CLIA requirements. This test has not been ilsa ared or approved by the U.S. Food and Drug Administration. Test Performed by: [facility] [address] [address] [employer]: Tito King M.D. Ph. D.; CLIA# [id number] Specimen Anatomical Collection Method Collection Time Receive d Time (Source) Location / / Volume Laterality Blood 06/05/2021 4:20 PM 2 8:45 EDT AM EDT Resulting Agency Comment Spec In Lab Tereso Mohan MD CHEMISTRY ORDERABLES Performing Organization Address City/[facility]/[place] [address] Valproic Acid Level, Total (06/05/2021 4:20 PM EDT) athologist Signature Valproic Lvl 55 mg/L [facility] Comment: Therapeutic Range: Anticonvulsant Therapy: ??50-100 mg/L Manic Episodes Associated with Bipolar D isorder: ??50-125 mg/L Specimen Anatomical Collection Method Collection Time Receive d Time (Source) Location / / Volume Laterality Blood 06/05/2021 4:20 PM 4:27 EDT PM EDT Resulting Agency Comment Spec In Lab Tereso Mohan MD CHEMISTRY ORDERABLES Performing Organization Address City/State/[place] [address] (ABNORMAL) Basic Metabolic Panel (non-fasting) (06/05/2021 4:20 PM EDT) athologist Signature Glucose Lvl 91 65 - 199 [facility] mg/dL [facility] Comment: Diabetes: >=200 mg/dL plus symp toms BUN 14 8 - 18 mg/dL [facility] Creatinine 0.69 (L) 0.70 - 1.20 mg/dL [facility] Sodium 139 135 - 145 mmol/L [facility] Potassium 4.0 3.5 - 5.0 mmol/L [facility] Comment: Please note: ??Patients with WBC >100,00 0 may have falsely elevated Potassium levels. ??For accurate Potassium quantif ication in these patients send serum separator tube (gold top) for subsequent determinations. ??Contact the Clinical Chemistry Laboratory if there are any qu estions. Chloride 111 (H) 98 - 107 mmol/L [facility] CO2 18 (L) 22 - 31 mmol/L [facility] Anion Gap 10 5 - 15 mmol/L [facility] Calcium 8.8 8.5 - 10.5 mg/dL [facility] Estimated GFR 111 >=60 mL/min/1.73 m?? [facility] Comment: This patient? s estimated glomerular filtration rate (eGFR) is between 111 mL/min/1.73 m2 (patients with less muscl e mass) and 129 mL/min/1.73 m2 (patients with more muscle mass) as dete rmined by the CKD-EPI equation. Assessment of eGFR is not appropriate wh en creatinine concentrations are rapidly changing. For clinical decisions where creatinine clearance will affect therapy, a 24-hour urine creatinine marilyn arleen may be advised. Assignment of CKD stage 1 - 5 for patien ts with an eGFR near the transition point between stages may be based on cli nical assessment of muscle mass and symptoms in addition to eGFR. Specimen Anatomical Collection Method Collection Time Receive d Time (Source) Location / / Volume Laterality Blood 06/05/2021 4:20 PM 2 4:27 EDT PM EDT Resulting Agency Comment Spec In Lab Tereso Mohan MD CHEMISTRY ORDERABLES Performing Organization Address City/State/[place] [address] (ABNORMAL) Hepatic Function Panel (06/05/2021 4:20 PM EDT) Analysis Performed At Patho logist Time Signature Total Protein 6.7 6.1 - 8.0 MARYANN CATHI g/dL [facility] Albumin 3.8 3.2 - 5.2 MARYANN CATHI g/dL [facility] AST 13 0 - 30 MARYANN CATHI unit/L [facility] ALT 14 0 - 30 MARYANN CATHI unit/L [facility] Alk Phos 33 (L) 35 - 105 MARYANN CATHI unit/L [facility] Total <0.2 (L) 0.2 - 1.3 [facility] Bilirubin mg/dL [facility] Bili, Direct 0.1 0.0 - 0.3 [facility] CATHI mg/dL [facility] Specimen Anatomical Collection Method Collection Time Receive d Time (Source) Location / / Volume Laterality Blood 06/05/2021 4:20 PM 2 4:27 EDT PM EDT Resulting Agency Comment Spec In Lab Tereso Mohan MD CHEMISTRY ORDERABLES Performing Organization Address City/State/[place] [address] documented in this encounter Visit Diagnoses Diagnosis Seizures Other convulsions documented in this encounter Care Teams Flash Ranging 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
--- OUTSIDE RECORDS SUMMARY | 2021-09-13 13:13 | XMS_ITS | Clinical Summary ---
:1985 Author Organization [place] [address] Care Team Providers Name Role Phone Comfort Urban SELVIN Primary Care Provider Allergies No known active allergies Medications Medication Sig Dispensed Refills Start Date End Date Status ARIPiprazole (ABILIFY) Take 2 mg by 0 02/03/2018 Active 2 mg Tablet mouth daily. citalopram (CELEXA) 20 Take 40 mg by 0 02/03/2018 Active mg Tablet mouth daily. FLOVENT HFA 110 Inhale 2 puffs 0 03/21/2018 Active mcg/actuation HFA into the lungs 2 Aerosol Inhaler times daily. UNABLE TO FIND Take by mouth as 0 Active needed. Med Name: CBD oil ProAir HFA 90 INL 1 TO 2 PFS PO 0 04/20/2019 Active mcg/actuation HFA Q 4 TO 6 H PRN Aerosol Inhaler meloxicam (MOBIC) 15 Take 1 tablet by 30 tablet 12 11/15/2020 Active mg Tablet mouth daily. cholecalciferol, Take 1 tablet by 90 tablet 3 04/10/2021 Active Vitamin D3, 50 mcg mouth daily. (2,000 unit) Tablet topiramate (Topamax) Take 1/2 a pill 180 tablet 1 06/05/2021 Active 200 mg Tablet in AM and 1 pill in PM divalproex EC 250mg in the 90 tablet 11 06/05/2021 Ac tive (Depakote) 250 mg morning, 500mg Tablet, Delayed nightly Release (E.C.) cloBAZam (Onfi) 10 mg Take 1 pill in AM 90 tablet 5 09/05/2021 Active Tablet and 2 pills in PM Active Problems Problem Noted Date Seizure-like activity 07/04/2021 Radiculopathy of lumbar region 01/04/2020 Overview: Added automatically from request for manolo maciel [id number] Seizures 05/05/2018 CIS - Entered not Verified 08/10/2009 CIS - ASD, S/P repair CIS - Asthma CIS - Depression CIS - Hx CHTN Encounters Date Type Specialty Care Team Description 09/05/2021 Office Visit Neurology Tereso Mohan Radiculopathy of lumbar region; MD Johanna Hand numbness 08/31/2021 Telephone Neurology Tereso Mohan Disability Ernesto Spencer MD ([facility] Paperwork ) 08/15/2021 Telephone Neurology Tereso Mohan Follow-up ; MD Johanna Letter/Form (Re turn to work Certifi cation - [employer]) 07/28/2021 Telephone Neurology Tereso Mohan MD 07/04/2021 - Hospital Encounter Tereso Mohan Seizure -like activity 07/11/2021 MD Jos Spencer George P Jr., MD 07/04/2021 Hospital Encounter Neurology 06/29/2021 Telephone Neurology Tereso Mohan Patient Nanette Spencer MD 06/28/2021 Telephone Neurology Tereso Mohan Patient Nanette Spencer MD 06/20/2021 Telephone Neurology Tereso Mohan MD 06/19/2021 Office Visit Pain and Spine Sarah Munguia MD Chronic pa in syndrome; Center Radiculopathy o f lumbar region 06/19/2021 Telephone Neurology Tereso Mohan Appointment MD Johanna from Last 3 Months Immunizations Name Administration Dates Next Due Influenza Vaccine (Novel) [id number], Injectable 04/26/2009 Influenza Vaccine, Whole 04/26/2009 Social History Tobacco Use Types Packs/Day Years [...] Assigned at Date Recorded Not on file Last Filed Vital Signs Vital Sign Reading Time Taken Comments Blood Pressure 119/65 09/05/2021 4:26 PM EDT Pulse 71 09/05/2021 4:26 PM EDT Temperature 36.7 ??C (98.1 ??F) 07/11/2021 7:56 AM EDT Respiratory Rate 18 07/11/2021 7:56 AM EDT Oxygen Saturation 97% 07/11/2021 7:56 AM EDT Inhaled Oxygen Concentration - - Weight 84.4 kg (186 lb) 09/05/2021 4:26 PM EDT Height 154.9 cm (5' 1) 09/05/2021 4:26 PM EDT reported Body Mass Index 35.14 09/05/2021 4:26 PM EDT Plan of Treatment Health Maintenance Due Date Last Done Comments Covid-19 Vaccine (#1) 10/24/1988 HIV screen 10/24/2001 Hepatitis C Screening 10/24/2001 Lipid Screening 10/24/2001 Tdap adult 10/24/2002 Tetanus vaccine 10/24/2002 HPV test 10/24/2013 PAP Smear 10/24/2013 Influenza (Flu) vaccine (1 of - 11/02/2021 04/26/2009, Influenza standard series) Procedures Procedure Name Priority Date/Time Associated Comments Diagnosis ZVIDEO EEG MONITORING Routine 07/11/2021 11:56 Re sults for this AM EDT procedure are i n the results section. COVID-19 PCR Routine 07/07/2021 7:50 PM Results f or this EDT procedure are i n the results section. EKG 12-LEAD Routine 07/04/2021 6:54 PM Seizure-like Results f or this EDT activity procedure are i n the results section. RAPID COVID-19 PCR Routine 07/04/2021 5:33 PM Res ults for this ([facility]) EDT procedure are in the results section. DIFFERENTIAL, Routine 07/04/2021 4:59 PM Results for this AUTOMATED EDT procedure are i n the results section. HEMOGRAM Routine 07/04/2021 4:59 PM Results f or this EDT procedure are i n the results section. HC PCH TOPIRAMATE Routine 07/04/2021 4:59 PM Resu lts for this EDT procedure are i n the results section. HC VALPROIC ACID Routine 07/04/2021 4:59 PM Resul ts for this EDT procedure are i n the results section. HC PCH CLOBAZAM Routine 07/04/2021 4:59 PM Result s for this EDT procedure are i n the results section. HC CHORIONIC Routine 07/04/2021 4:59 PM Results f or this GONADOTROPINS, SERUM EDT procedu re are in the results section. COMPREHENSIVE Routine 07/04/2021 4:59 PM Results for this METABOLIC PANEL EDT procedure ar e in (NON-FASTING) the results section. HC CBC,PLT & AUTO DIFF Routine 07/04/2021 4:59 PM EDT from Last 3 Months Results EEG video monitoring (07/11/2021 11:56 AM EDT) Narrative Ming Arguello Jr., MD - 07/11/2021 11 :56 AM EDT Nitin Rodrigez MD ? 07/12/2021 ??1:00 PM [facility] Department of Neurology Comprehensive Final EMU Report DATES OF VIDEO EEG MONITORIN07/04/21 - 07/11/21 Demographics: Name of the Patient: ??Bessie Levy Date of : ?1985 Sex: ?female History of Present Illness/Description o f Symptoms:?? 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 ?? Onset & Progression First seizure in 2014. ??It was an unpro voked seizure which was witnessed by her and her darosee r.?She was taken to the ER and immediately had a second episode of generalized convulsions.??She had an MRI brain which was normal.?EEG was subsequently normal.?She has been on antiseizure medications with variable degree of control of episo axel.? Semiology:?? Headache -->??spacey and dumb (can b e 45 minutes) then can have a ??likely convulsion seizure, she can not remember what they look like, boyfriend. Postictal:??Can take a c couple hours to return normal There is no history of ??oral/manual aut omatisms, strange smells or taste, sensation of anirudh vu, jamais v u impending doom, out of body experiences, no episodes of gastric rising??sensations, piloerection, sweating, nor unexplained episodes of heart raising. She??has??had no myoclonic jerk s nor episodes of waking up sore??or with the bed wet. Frequency:?2 in last 8 months, usuall y about 1 year, 2 years without one Triggers:??None?? History of ?[]?Status Epi lepticus ?[x]?Tongue bi ting ?[]?Incontinen ce ?[]?Post-ictal psychosis Risk factors for epilepsy: ?[x]?Head trau ma??concussion,?at??the??age of 13 ?[]?Meningoenc ephalitis ?[]? complications??-??,??she had no complication after ??and had normal development ?[]?Complex fe brile seizures ?[x]?Family hi story of epilepsy??-??(Agnieszka Levy) has??Chiari malformation and is s/p neur ological surgery. ??She also has ??absence seizures and??develop mental delay. Another daughter has migraine. ?[]?Developmen marilee Delay/ IEP? Risk factors for nonepileptic seizures ( and current safety screening questions): ?[]?Greater th an 3 seizure types ?[]?Pre-ictal headache ?[]?Ictal eye closure ?[]?Ictal cryi ng?[]?Multiple A EDs ?[]?Seizures g reater than 5 minutes ?[x]?Prior psy ch treatment??- Juan, about 3-4 years ago?[]?History of sz in close friend / relative ?[x]?History o f suicide attempt (When)??suicidal depression in the past ?[]?Current SI ?[]?Greater th an 12 drinks per week ?[x]?Fibromyal cameron ?[]?Malpractic e lawsuit ?[]?Sexual, em otional, or physical abuse??- did not assess ?[x]?Currently safe at home? ?? Medications: ?Current? ??Dose Reason for D/C? Onfi [x]? 10 mg nightly ?? Topamax [x]? 100mg/200mg Fingers numb ness Depakote [x]? 250/500mg Works the bes t, causing a tremor Keppra []? Increased anxiety ? Psychosocial: ?? Prior Psychiatric Diagnosis:??Psychia trically she looks like she is doing well. ??It is reasonable to can keep her on Abilify and Celexa as she suffered from suicidal dep ression in the past ?? Driving:??Y ?? Contraception/ Folic Acid:?Tubal? Vitamin D:??Y ?? Level of Education:??HS, Bachelor is communication and journalism ?? Working:??[employer]? Household:??2 Kids and self?? Previous investigations: EEG: ?- Routine EEG: [place] [facility]: Normal study. ?- Routine EEG: Done at [facility] [place]/05/18: Normal study. 2019 MRI: ?- MRI brain was done??in 2016 was unremarkable per patient. ?-MRI brain: 05/10/2018- No acute i ntracranial abnormality CT: ?-CT scan head-??No images in syste m Summary of Events: Day 1 (07/04/21): 0 events Day 2 (07/05/21): 0 events Day 3 (07/06/21): 2 events Day 4 (07/07/21): 0 events Day 5 (07/08/21): 0 events Day 6 (07/09/21): 0 events Day 7 (07/10/21): 0 events Day 8 (07/11/21): 0 events ?? Pertinent Home Medications: Onfi 10mg QHS Topamax 100mg/200mg Depakote 250mg/500mg ?? Antiseizure medications during monitorin g: Discontinue Depakote 250/500mg??(07/04)? Onfi 10 mg nightly-->5mg nighty (07/05) -- > off (07/07) Topamax 100mg/200mg -->??50mg/100mg (07/05 ) --> off (07/07) 07/08/21 - 07/10/21: off anti-seizure medica tions Restarted depakote 250/500, topamax 100/ 200 and onfi 5mg Qhs on 07/10/21 ?? ELECTROENCEPHALOGRAPHER'S REPORT Background During the awake state with the eyes tyshawn sed the background consisted of a moderate amplitude, 9-10 Hz posterior reactive rhythm that attenuated appropriately wit h eye opening. Beta activity was distributed diffusely with an anterior predominance. There was a normal anterior-posterior vo ltage gradient. With eye opening the background activity changed to a low voltage mixture of alpha, beta, and occasional theta ran ge frequencies. There were no significant asymmetries of backg round activity noted. ?? Sleep Stage II/III sleep was obtained and cons isted of symmetrical sleep spindles, vertex sharp waves, and diffuse delta slowing. A generalized spike and wave discharge wit h broad field was seen, most likely pharmaceutical specialty representative of a K-comple x. ??Example on 07/09/2021 at 13:14:21 ?? Abnormal Interictal Activity None ?? Clinical Events Event #1 on 07/06/21 at 17:53 Clinical: Patient reports having a sever e headache which she has prior to her seizures. ??She does note t hat she has headaches independent of her seizures. ?? EEG: No abnormal EEG correlate ?? Event #2 on 07/06/21 at 22:34 Clinical: Patient reports headache with dizziness EEG: No abnormal EEG correlate ?? INTERPRETATION This EEG is normal during the awake and asleep states. CLINICAL CORRELATION & PLAN These 8 days of video EEG were normal. ? ?There were 2 events of headaches seen that did not represent ep ileptic seizures and may have been the result of withdrawing her topamax and depakote. ??We did not capture the events of feeling s pacey and dumb that could progress to a convulsion so we can not comment on the etiology of those. ??No epileptiform dis charges or seizures were seen during her entire recording. ??Her K-complexes are conspicuous for their broad field, but d id not appear to be evolving in the setting of ASM withdraw in a manner to suggest a latent/treated primary generalized epile psy. ??If she continues to have events, can consider a repeat EMU a dmission. ??She will continue to follow up with Dr. Mohan. Discharge seizure medications: Restarted her home medications of Depako te 250mg/500mg + Topamax 100mg/200mg + Onfi 10mg QHS Nitin Rodrigez MD Clinical Neurophysiology Fellow Lorin Guevara APRN NEUROLOGY ORDERABLES COVID-19 PCR (07/07/2021 7:50 PM EDT) [facility] Method Time Signature SARS-CoV-2 Not Detected Not Detected [facility] Comment: This result should be interpreted in com bination with the clinical observations, patient history and epidem iological information in making a final diagnosis. For testing of asymptomatic i ndividuals, assay performance characteristics and clinical utility hav e not been evaluated. Testing for SARS-CoV-2 (Severe acute respiratory syn drome coronavirus 2, formerly known as 2019 novel coronavirus or 2019-nCoV) to aid in the diagnosis of COVID-19 is performed using the [employer] S-CoV-2 Assay as authorized by the FDA Emergency Use Authorization (EUA). This EUA assay is intended for In-vitro Diagnostic (IVD) use with respiratory sp ecimens such as nasopharyngeal swabs collected from individuals during the ac [place] phase of infection. This assay is performed based on the instructions for use provided by [employer] and additional guidance provided by CDC and FDA. Testing is performed in the Clinical Genomics and Advanced Technolog y Laboratory within the Department of Pathology and Laboratory Medicine at [facility], certified under the Clinical Laboratory Improvement Amendments of 1988 (CLIA), 42 U.S.C. 263a, to perform high complexi ty tests. Assay performance has been verified according to clinical laborator y regulatory requirements for use with specimens collected from individuals yoselyn pected of COVID-19. Test results are provided above. A result of Not Detecte d indicates that the viral RNA target is not present above the limit of detect ion, but does not preclude SARS-CoV-2 infection. False negative results may oc cur if a specimen is improperly collected, transported or handled; if am plification inhibitors are present; or if inadequate numbers of viral particles are present in the specimen. When a diagnostic test is negative, the possibi lity of a false negative result should be considered in the context of a patien t's recent exposures and the presence of clinical signs and symptoms consisten t with COVID-19. A result of Detected indicates that RNA from SARS-CoV-2 was d etected and the patient is infected. As required or requested by public health a uthorities, positive specimens may be sent for additional testing. Positive an d negative predictive values for this test are highly dependent on disease pre valence. A result of Invalid indicates that neither the viral RNA tar gets nor the internal control target was detected. An invalid result suggests the presence of inhibitors. Recollection and re-testing is recommend ed in the case of an invalid result. CDC COVID-19 criteria for testing on hum an specimens and clinical management guidance information are available at [facility] Coronavirus Disease 2019 (COVID-19) webpage under Information fo r Healthcare Professionals (https://www.cdc.gov/coronavirus/2019-nc ov/hcp/index.html) Additional information about this and ot her EUA tests can be found in provider and patient fact sheets at the following FDA website: https://www.fda.gov/medical-devices/kaawegjwgzi-wgjsxiy-1822-nkhcz-05-pjlwcwmsu- rpf-eozogemhgebrdy-uotiyhh-devices/sqwyu-btwkattfihm-daac SARS-Cov-2 RNA Source PRE ASSEMBLY WIRER Swab [facility] Specimen (Source) Anatomical Collection Method Collection Time Re ceived Time Location / / Volume Laterality Nasopharyngeal Swab 07/07/2021 7:50 07/07 PM EDT 8:40 PM EDT Comment: Symptoms->Surveillance Resulting Agency Comment Spec In Lab Tereso Mohan MD MICROBIOLOGY - GENERAL ORDER WILFREDO Performing Organization Address City/State/ZIP Code Phon e Number [place] [id number] EKG 12 Lead (07/04/2021 6:54 PM EDT) Component Value Ref Range Test Analysis Performed Pathologis t Method Time At Signature Ventricular rate 66 BPM MUSE SYSTEM Atrial Rate 66 BPM MUSE SYSTEM P-R Interval 168 ms MUSE SYSTEM QRS Duration 98 ms MUSE SYSTEM Q-T Interval 406 ms MUSE SYSTEM QTC Calculated 425 ms MUSE SYSTEM (Bezet) Calculated P Lucile 48 degrees MUSE SYSTEM Calculated R Lucile 69 degrees MUSE SYSTEM Calculated T Lucile 92 degrees MUSE SYSTEM INTERPRETATION Normal sinus rhythm MUSE SYSTEM T wave abnormality, consider anterolateral ischemia Abnormal ECG When compared with ECG of 30-OCT-2007 15:54, T wave inversion now evident in Lateral leads Confirmed by MD Tucker, Josué ([id number]) on 07/05/2021 3:04:35 PM Specimen Anatomical Collection Method Collection Time Receive d Time (Source) Location / / Volume Laterality 07/04/2021 6:54 PM 3:04 EDT PM EDT Lorin Guevara APRN ECG ORDERABLES Performing Organization Address City/State/ZIP Code Phon e Number MUSE SYSTEM COVID-19 PCR (07/04/2021 5:33 PM EDT) [facility] Method Time Signature SARS-CoV-2 Not Detected Not Detected MARYANN RNA PCR [facility] Comment: This result should be interpreted in com bination with the clinical observations, patient history and epidem iological information. For testing of asymptomatic individuals, assay performa nce characteristics and clinical utility have not been evaluated. Testing for SARS-CoV-2 (Severe acute respiratory syndrome coronavirus 2, form erly known as 2018 novel coronavirus or 2018-nCoV) to aid in the diagnosis of CO VID-19 is performed using the [employer]plex[employer] COVID-19 Direct Assay by [employer] as authorized by the FDA issued Emergency Use Authorization (EUA). This assay is intended for In-vitro Diagnostic (IVD) use with nasopharyngeal swabs collected from individuals meeting the CDC criteria for testing. Th e assay is performed based on the instructions for use and additional guid jaskaran provided by the FDA. Testing is performed in the Microbiology Laboratory within the Department of Pathology and Laboratory Medicine at [facility], certified under the Clinical Laboratory Improvement Amendmen ts of 1988 (CLIA), 42 U.S.C. section 263a, to perform high complexity tests. Assay performance has been verified according to clinical laboratory regulat ory requirements. Test results are provided above. A resul t of Not Detected indicates that the viral RNA target is not present but does not preclude SARS-CoV-2 infection. False negative results may occur if a sp ecimen is improperly collected, transported or handled; if amplification inhibitors are present; or if inadequate numbers of viral particles ar e present in the specimen. A result of Detected suggests a current or recent infection and the patient is presumed to be infected. Positive and negative pr edictive values for this test are highly dependent on disease prevalence. A result of Invalid indicates the inability to conclusively determine the presence or absence of SARS-CoV-2 RNA in the sample which can be due to a vari ety of factors. Recollection is recommended in the case of an invalid re sult. CDC COVID-19 criteria for testing on hum an specimens and clinical management guidance information are available at [facility] CDC Coronavirus Disease 2019 (COVID-19) webpage under Information fo r Healthcare Professionals (https://www.cdc.gov/coronavirus/2019-nc ov/hcp/index.html). Additional information about this and ot her EUA tests can be found in provider and patient fact sheets at the following FDA website: https://www.fda.gov/medical-devices/dnzgskiohym-ycwfwbi-5641-oshwh-01-uyvmjzppv- bds-ghptxyvzukckge-ftxetwm-devices/wavkx-nflaolwpokb-krld SARS-CoV-2 Source PRE ASSEMBLY WIRER Swab [facility] Specimen (Source) Anatomical Collection Method Collection Time Re ceived Time Location / / Volume Laterality Nasopharyngeal Swab 07/04/2021 5:33 07/04 PM EDT 6:01 PM EDT Comment: Symptoms->Surveillance Resulting Agency Comment Spec In Lab Lorin Guevara APRN MICROBIOLOGY - GENERAL ORDER WILFREDO Performing Organization Address City/State/ZIP [place] [address] Clobazam Level (07/04/2021 4:59 PM EDT) P athologist Signature Clobazam 145.0 30 - 300 [facility] ng/mL [facility] Comment: Test Performed by: [facility] [facility] [address] [place] [address] 98 Printing Plate Setter: Tito King M.D. Ph. D.; CLIA# [id number] Desmethylclobazam 1080.0 300 - 3000 ng/mL [facility] Comment: ADDITIONAL INFORMATIO N This test was developed and its performa nce characteristics determined by [facility] in a manner co nsistent with CLIA requirements. This test has not been ilsa ared or approved by the U.S. Food and Drug Administration. Test Performed by: [facility] [address] [place] [address] [address] Printing Plate Setter: Tito King M.D. Ph. D.; CLIA# [id number] Specimen Anatomical Collection Method Collection Time Receive d Time (Source) Location / / Volume Laterality Blood 07/04/2021 4:59 PM 2 9:16 EDT AM EDT Resulting Agency Comment Spec In Lab Lorin Guevara DEEP SUBMERGENCE VEHICLE OPERATOR CHEMISTRY ORDERABLES Performing Organization Address City/State/ZIP [place] [address] Hemogram (07/04/2021 4:59 PM EDT) P athologist Signature WBC 9.2 4.0 - 9.5 [facility] [employer] x10(3)/[facility] RBC 4.95 4.00 - [employer] 5.21 [facility] x10(6)/[facility] Hemoglobin 14.6 11.7 - MARYANN CATHI 15.5 g/dL [facility] Hematocrit 44.1 35.7 - MARYANN CATHI 45.8 % [facility] MCV 89.1 82.6 - MARYANN CATHI 94.4 [facility] LAB[facility]ATORY MCH 29.5 27.1 - MARYANN CATHI 32.0 pg [facility] MCHC 33.1 31.7 - MARYANN CATHI 35.0 g/dL [facility] Platelets 254 145 - 357 MARYANN [employer](3)/[facility] LAB[facility] RDWSD 37.8 37.0 - MARYANN CATHI 46.0 [facility] LABORATORY RDWCV 11.8 11.5 - [employer]ATHI 14.1 % [facility] MPV 8.9 7.6 - 12.9 MARYANN CATHI [facility] LABORATORY nRBC % Auto 0.0 % [facility] nRBC Abs Auto 0.000 0.000 - MARYANN CATHI 0.000 [facility] x10(3)/[facility] LABORATORY Specimen Anatomical Collection Method Collection Time Receive d Time (Source) Location / / Volume Laterality Blood 07/04/2021 4:59 PM 2 5:06 EDT PM EDT Resulting Agency Comment Spec In Lab Lorin Guevara APRN HEMATOLOGY ORDERABLES Performing Organization Address City/State/ZIP [place] [address] (ABNORMAL) Differential, Automated (07/04/2021 4:59 PM EDT) [facility] Method Time Signature Neutrophils % 53.2 % [facility] Neutr Abs (ANC) 4.92 1.70 - [facility] 6.10 [facility] x10(3)/[facility] LAB[facility]ATORY Lymphocytes % 30.8 % [facility] Lymphocytes Abs 2.8 0.9 - 3.2 [facility] x10(3)/[facility] Monocytes % 9.5 % [facility] Monocyte Abs 0.9 0.3 - 0.9 [facility] x10(3)/[facility] Eosinophils % 5.0 % [facility] Eosinophils Abs 0.5 (H) 0.0 - 0.4 [facility] x10(3)/[facility] Basophils % 1.1 % [facility] Basophils Abs 0.1 0.0 - 0.1 [facility] x10(3)/[facility] Immature Gran % 0.40 % [facility] Comment: Immature granulocytes(IG's)percentage an d absolute count will include metamyelocytes, myelocytes, and promyelo cytes. Blood smears from CBCs yielding IG's will be scanned manually for concor dance. If this scan disagrees with the automated IG or if promyelocytes are not ed, a manual differential will be performed. Miriam Gran Abs 0.04 0.00 - 0.04 x10(3)/[facility] Specimen Anatomical Collection Method Collection Time Receive d Time (Source) Location / / Volume Laterality Blood 07/04/2021 4:59 PM 2 5:06 EDT PM EDT Resulting Agency Comment Spec In Lab Lorin Guevara APRN HEMATOLOGY ORDERABLES Performing Organization Address City/State/ZIP Code Phon e Number [place] [phone] Topiramate level (07/04/2021 4:59 PM EDT) athologist Signature Topiramate Lvl 7.3 mcg/mL [facility] Comment: REFERENCE VALUE------ Reference values depend on clinical use: Anticonvulsant: 5.0-20.0 mcg/mL Psychiatric: 2.0-8.0 mcg/mL ADDITIONAL INFORMATIO N This test was developed and its performa nce characteristics determined by [facility] in a manner co nsistent with CLIA requirements. This test has not been ilsa ared or approved by the U.S. Food and Drug Administration. Test Performed by: [facility] [address] [address] Printing Plate Setter: Tito King M.D. Ph. D.; CLIA# [id number] Specimen Anatomical Collection Method Collection Time Receive d Time (Source) Location / / Volume Laterality Blood 07/04/2021 4:59 PM 2 9:16 EDT AM EDT Resulting Agency Comment Spec In Lab Lorin Guevara APRN CHEMISTRY ORDERABLES Performing Organization Address [facility]/ZIP Code Phon e Number [place] [phone] [facility] [address] Beta HCG, quantitative (07/04/2021 4:59 PM EDT) athologist Signature Beta hCG Quant <1 mlU/ML [facility] Comment: REFERENCE RANGES NON- FEMALE: ??Less than 5 mIU/m L POSTMENOPAUSAL FEMALE: ??Less than 8 mIU /mL ? -- FEMALES -- Weeks of ? HCG range ??(mIU/mL) ? 3 weeks ? 5.8 - 71.2 ? 4 weeks ? 9.5 - 750 ? 5 weeks ? 217 - 7,138 ? 6 weeks ? 158 - 31,795 ? 7 weeks ? 3,697 - 163,563 ? 8 weeks ? 32,065 - 149,571 ? 9 weeks ? 63,803 - 151,410 ?10 weeks ? 46,509 - 186,977 ?12 weeks ? 27,832 - 210,612 ?14 weeks ? 13,950 - 62,530 ?15 weeks ? 12,039 - 70,971 ?16 weeks ? 9,040 - 56,451 ?17 weeks ? 8,175 - 55,868 ?18 weeks ? 8,099 - 58,176 Specimen Anatomical Collection Method Collection Time Receive d Time (Source) Location / / Volume Laterality Blood 07/04/2021 4:59 PM 2 5:06 EDT PM EDT Resulting Agency Comment Spec In Lab Lorin Guevara APRN CHEMISTRY ORDERABLES Performing Organization Address City/[facility]/ZIP Code Phon e Number [address] Valproic Acid Level, Total (07/04/2021 4:59 PM EDT) P athologist Signature Valproic Lvl 51 mg/L [facility] Comment: Therapeutic Range: Anticonvulsant Therapy: ??50-100 mg/L Manic Episodes Associated with Bipolar D isorder: ??50-125 mg/L Specimen Anatomical Collection Method Collection Time Receive d Time (Source) Location / / Volume Laterality Blood 07/04/2021 4:59 PM 2 5:06 EDT PM EDT Resulting Agency Comment Spec In Lab Lorin Guevara APRN CHEMISTRY ORDERABLES Performing Organization Address City/[facility]/ZIP Code Phon e Number [address] (ABNORMAL) Comprehensive metabolic panel (non-fasting) (07/04/2021 4:59 PM EDT) P athologist Signature Glucose Lvl 82 65 - 199 [facility] Comment: Diabetes: >=200 mg/dL plus symp toms BUN 10 8 - 18 mg/dL [facility] Creatinine 0.81 0.70 - 1.20 mg/dL [facility] Sodium 136 135 - 145 mmol/L [facility] Potassium 3.8 3.5 - 5.0 mmol/L [facility] Comment: Please note: ??Patients with WBC >100,00 0 may have falsely elevated Potassium levels. ??For accurate Potassium quantif ication in these patients send serum separator tube (gold top) for subsequent determinations. ??Contact the Clinical Chemistry Laboratory if there are any qu estions. Chloride 104 98 - 107 mmol/L [facility] CO2 18 (L) 22 - 31 mmol/L [facility] Anion Gap 14 5 - 15 mmol/L [facility] Calcium 9.1 8.5 - 10.5 mg/dL [facility] Total Protein 8.1 (H) 6.1 - 8.0 g/dL [facility] Albumin 4.7 3.2 - 5.2 g/dL [facility] AST 21 0 - 30 unit/L [facility] ALT 21 0 - 30 unit/L [facility] Alk Phos 33 (L) 35 - 105 unit/L [facility] Total Bilirubin 0.3 0.2 - 1.3 mg/dL [facility] Estimated GFR 93 >=60 mL/min/1.73 m?? [facility] Comment: This patient? s estimated glomerular filtration rate (eGFR) is between 93 mL/min/1.73 m2 (patients with less muscl e mass) and 108 mL/min/1.73 m2 (patients with more muscle mass) [...] (Source) Location / / Volume Laterality Blood 07/04/2021 4:59 PM 2 5:06 EDT PM EDT Resulting Agency Comment Spec In Lab Lorin Guevara SELVIN CHEMISTRY ORDERABLES Performing Organization Address City/State/ZIP [place] [address] from Last 3 Months Insurance Payer Benefit Plan / Subscriber ID Effective Dates Phone Addre ss Type Group [place] [id number] 2017-Prese [phone] [address] [facility] [address] [place], [place] [phone] Advance Directives Latest Code Status on File Code Status Date Activated Date Inactivated Comments Attempt Cardiopulmonary Resuscitation - 07/04/2021 3:41 PM 07/12/19 22 2:07 PM Inpatient Code Status decision made by: Patient Care Teams Webbing Weaver Relationship Specialty Start Date End Date Comfort Urban APRN PCP - General Family Medicine 07/19/17 [address] [place] [address]
--- OUTSIDE RECORDS SUMMARY | 2021-09-13 13:13 | XMS_ITS | Encounter Summary ---
:1985 Author Organization [facility] [place] [address] Care Team Providers Name Role Phone Comfort Urban APRN Primary Care Provider Reason for Referral Physical Therapy (Routine) - Closed Specialty Diagnoses / Procedures Referred By Contact Refer red To Contact Diagnoses Radiculopathy of lumbar region Sarah Munguia MD Unknown [facility] D R [place] [address] Referral ID Status Reason Start Date Expiration Date Visits V isits Requested Authorized [id number] Closed Evaluate and 05/15/2021 11/11/2021 12 12 Treat Reason for Visit Reason Comments Back Pain Hip Pain Both hips Consultation (Routine) - Authorized Specialty Diagnoses / Procedures Referred By Contact Refer red To Contact [facility] Diagnoses Chronic low back pain, unspecified back pain laterality, unspecified whether sciatica present Comfort Urban APRN [facility] [address] [facility] [address] [place] [address] Phone: Fax: Referral ID Status Reason Start Date Expiration Visits Visits Date Requested Authorized [id number] Authorized Consult, 05/11/2021 05/11/2022 6 6 Test & Treat Encounter Details Date Type Department Care Team Description 05/15/2021 Office Visit [facility] Skylar Munguia MD Radiculopathy of lumbar region; at [facility] Chronic pain syndrome [facility] [address] [facility] [place] [phone] Social History Tobacco Use Types Packs/Day Years [...] Sign Reading Time Taken Comments Blood Pressure 127/78 05/15/2021 11:04 AM EDT Pulse 73 05/15/2021 11:04 AM EDT Temperature - - Respiratory Rate - - Oxygen Saturation 99% 05/15/2021 11:04 AM EDT Inhaled Oxygen Concentration - - Weight 73.5 kg (162 lb) 05/15/2021 11:04 AM EDT Height 154.9 cm (5' 1) 05/15/2021 11:04 AM EDT Body Mass Index 30.61 05/15/2021 11:04 AM EDT documented in this encounter Progress Notes Sarah Munguia MD - 05/15/2021 11:00 AM EDT [facility] follow-up visit note Date of visit: 05/15/21 : 1985 Chief Complaint Patient presents with ??? Back Pain ??? Hip Pain Both hips History of Present Illness: Patient was last seen in the clinic on 06/14/2020. Since her last visit, patient reports : -Patient reports experiencing at least 50% pain improvement with L4-L5 right paramedian interlaminarepidural steroid injection done on 01/29/20 tell her pain flared up about 2 weeks ago. -Patient states that the nature and distribution of her pain is unchanged. -She continues to follow-up with neurology -No other acute events or new medical [...] burning and sharpcontinuously Pain rating: intensity averages 6, on a 0-10 scale. Aggravating factors include: [...] gabapentin-seizures PT: yes Psychology: no Acupuncture: no skin care consultant: no TENS Unit: no Injections: Patient underwent [...] Review of Pain Questionnaire: Please see the [facility] [place] health questionnaire, which the patient completed and reviewed with me in detail. Review of Electronic Chart: Today I have also reviewed available medical information in the patient's medical record at [facility] including relevant provider notes, laboratory work, and imaging. Past Medical History: Patient Active Problem List Diagnosis Code ??? CIS - ASD, S/P repair ??? CIS - Asthma ??? CIS - Depression ??? CIS - Entered not Verified ??? CIS - Hx CHTN ??? Seizures R56.9 ??? Radiculopathy of lumbar region M54.16 Past Surgical History: Reviewed Medications: Current Outpatient Medications: ??? cholecalciferol, Vitamin D3, [...] mouth daily., Disp: , Rfl: 0 ??? FLOVENT HFA 110 mcg/actuation HFA Aerosol Inhaler, Inhale 2 puffs into the lungs 2 times daily.,Disp: , Rfl: 0 ??? UNABLE TO FIND, Take by mouth as needed. Med Name: CBD oil, Disp: , Rfl: ??? 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 Patient is requesting repeat injection. Patient was educated about signs and symptoms [...] Therapy: Ordered external physical therapy refresher course referral. 2. Clinical Health Psychologist to address issues of relaxation, behavioral change, coping style, and other factors important to improvement: None at this point 3. Self Care Recommendations: Encouraged patient to be compliant to home exercise regimen 4. Diagnostic Studies: None at this point. Can consider repeat MRI of lumbar spine in future based on response to planned injection and physical therapy. 5. Medication Management: -Continue current medication regimen as per neurology 6. Further procedures recommended: Patient will be scheduled for repeat L4-L5 right paramedian interlaminar epidural steroid injection under fluoroscopy guidance. 7. Referrals: Continue follow-up with neurology 8. Release of information: Previous records reviewed 9. Follow up: 4 weeks after the injection. Sarah Munguia MD [facility] Representative of Anesthesiology [facility] of Medicine [address] [phone] / [facility] CC: Comfort Urban APRN [address] [place] [address] documented in this encounter Plan of Treatment Scheduled Referrals Name Type Priority Associated Diagnoses Order S chedule Referral to Outpatient Referral Routine Radiculopathy of Orde red: Physical Therapy lumbar region 05/15/2021 documented as of this encounter Visit Diagnoses Diagnosis Radiculopathy of lumbar region Thoracic or lumbosacral neuritis or radi culitis, unspecified Chronic pain syndrome documented in this encounter Care Teams Financial Services Intern Relationship Specialty Start Date End Date Comfort Urban APRN PCP - General Family Medicine 07/19/17 [place] [address] documented as of this encounter
--- OUTSIDE RECORDS SUMMARY | 2021-09-13 13:13 | XMS_ITS | Encounter Summary ---
:1985 Author Organization [facility] [place] [address] Care Team Providers Name Role Phone Comfort Urban APRN Primary Care Provider Encounter Details Date Type Department Care Team Description 05/15/2021 Travel Social History Tobacco Use Types Packs/Day Years [...] on filedocumented in this encounter Care Teams Bus Operator Relationship Specialty Start Date End Date Comfort Urban APRN PCP - General Family Medicine 07/19/17 [place] [address] documented as of this encounter
--- OUTSIDE RECORDS SUMMARY | 2021-09-13 13:13 | XMS_ITS | Encounter Summary ---
:1985 Author Organization [facility] [place] [address] Care Team Providers Name Role Phone Comfort Urban APRN Primary Care Provider Reason for Visit Auth/Cert Specialty Diagnoses / Procedures Referred By Contact Refer red To Contact Diagnoses Refractory Seizures Procedures VEEG Referral ID Status Reason Start Date Expiration Date Visits Requ ested Visits Authorized [id number] 1 1 Encounter Details Date Type Department Care Team Description 07/04/2021 - Hospital Encounter 5 [place] Elvia Carl MD [facility] [place] [address] Seizure-like 07/11/2021 [facility] Ming Arguello Jr., MD [facility] [place] [id number] [place] [address] Social History Tobacco Use Types Packs/Day Years [...] Sign Reading Time Taken Comments Blood Pressure 116/64 07/11/2021 7:56 AM EDT Pulse 58 07/11/2021 7:56 AM EDT Temperature 36.7 ??C (98.1 ??F) 07/11/2021 7:56 AM EDT Respiratory Rate 18 07/11/2021 7:56 AM EDT Oxygen Saturation 97% 07/11/2021 7:56 AM EDT Inhaled Oxygen Concentration - - Weight 79.3 kg (174 lb 13.2 oz) 07/04/2021 4:13 PM EDT Height 154.9 cm (5' 1) 07/04/2021 4:13 PM EDT Body Mass Index 33.03 07/04/2021 4:13 PM EDT documented in this encounter Discharge Summaries Lorin Guevara APRN - 07/11/2021 10:15 AM EDT Images from the original note were not included. [facility] Epilepsy Monitoring Unit Discharge Summary Patient Name: Bessie Levy Patient Age: 35 y.o. Language: Armenian Race: White Ethnicity: Not nor Admit date: 07/04/2021 Discharge date and time: 07/11/21 Attending Physician: Ming Arguello Jr., MD Discharge Physician: Ming Arguello Jr., MD Follow-up Recommendations for Providers: ?? None of the events in question occurred during admission so we could not provide a definite etiology for her events. If episodes continue, consider repeat EMU admission. ?? No change to antiseizure medications. . Inpatient Provider Contact Information: For questions regarding this document or issues related to this hospitalization on the Neurology Service, please contact the author(s) of this discharge summary through the [facility] Size Marker . Discharge Diagnoses (Hospital Problems) and Secondary Diagnoses (Chronic Problems): Primary Diagnosis: Paroxysmal events, etiology unknown Secondary Diagnosis: Active Hospital Problems Diagnosis ??? Seizure-like activity Resolved Hospital Problems No resolved problems to display. Body mass index is 33.03 kg/m??. Active Non-Hospital Problems Diagnosis ??? Radiculopathy of lumbar region ??? Seizures ??? CIS - Entered not Verified ??? CIS - ASD, S/P repair ??? CIS - Asthma ??? CIS - Depression ??? CIS - Hx CHTN No past medical history on file. History of Presentation: History of Present Illness/Description of Symptoms: Bessie Levy is a 35 y.o. y/o right-handed female with pertinent PMHx of ASD s/p repair at 16 years old, asthma, anxiety and depression, chronic lower back pain, GERD, fibromyalgia, hypertension (off medication)/hyperlipidemia and migraine who is admitted to the video EEG monitoring unit for differential diagnosis/characterization of events, concerning for seizures. 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 ?? Onset & Progression First seizure in 2014. ??It was an unprovoked seizure which was witnessed by her and her daughter.?She was taken to the ER and immediately had a second episode of generalized convulsions. She had an MRI brain which was normal.?EEG was subsequently normal.?She has been on antiseizure me dications with variable degree of control of episodes. ?? Semiology: Headache --> spacey and dumb (can be 45 minutes) then can have a likely convulsion seizure, she can not remember what they look like, boyfriend. Postictal: Can take a c couple hours to return normal There is no history of ??oral/manual automatisms, strange smells or taste, sensation of anirudh vu, jamais vu impending doom, out of body experiences, no episodes of gastric rising??sensations, piloerection, sweating, nor unexplained episodes of heart raising. She??has??had no myoclonic jerks nor episodes of waking up sore??or with the bed wet. Frequency: 2 in last 8 months, usually about 1 year, 2 years without one Triggers: None History of []? Status Epilepticus [x]? Tongue biting []? Incontinence []? Post-ictal psychosis Risk factors for epilepsy: [x]? Head trauma concussion, at??the??age of 13 []? Meningoencephalitis []? complications - , she had no complication after ??and had normal development []? Complex febrile seizures [x]? Family history of epilepsy - (Agnieszka Levy) has??Chiari malformation and is s/p neurological surgery. ??She also has ??absence seizures and??developmental delay. Another daughter has migraine. []? Developmental Delay/ IEP? Risk factors for nonepileptic seizures (and current safety screening questions): ?[]???Greater than 3 seizure types ?[]???Pre-ictal headache ?[]???Ictal eye closure ?[]???Ictal crying?[]???Multiple AEDs ?[]???Seizures greater than 5 minutes ?[x]???Prior psych treatment - [place], about 3-4 years ago ?[]???History of sz in close friend / relative ?[x]???History of suicide attempt (When) suicidal depression in the past []???Current SI ?[]???Greater than 12 drinks per week ?[x]???Fibromyalgia ?[]???Malpractice lawsuit ?[]???Sexual, emotional, or physical abuse - did not assess [x]???Currently safe at home? ?? Medications: ?? Current? Dose Reason for D/C? Onfi [x]??? 10 mg nightly ?? Topamax [x]? 100mg/200mg Fingers numbness Depakote [x]??? 250/500mg Works the best, causing a tremor Keppra []? Increased anxiety ? Psychosocial: ?? Prior Psychiatric Diagnosis: Psychiatrically she looks like she is doing well. ??It is reasonableto can keep her on Abilify and Celexa as she suffered from suicidal depression in the past ?? Driving: Y ?? Contraception/ Folic Acid: Tubal ?? Vitamin D: Y ?? Level of Education: HS, Bachelor is communication and journalism ?? Working: [employer] ?? Household: 2 Kids and self Physical Exam On Admission: Appears stated age, well groomed, WDWN, NAD AAOx4, follows commands appropriately and crosses midline Fluent, no dysarthria or paraphasic errors, repetition intact PERRLA, EOMI without nystagmus Hearing intact to voice Normal bulk and tone Symmetric hand/finger roll Pronator drift absent Romberg absent FNF intact, mild bilateral action tremor Finger tapping slow Gait: Stable ?? Prior Data: VEEG: EEG: ?- Routine EEG: Done at [facility] 08/08/18: Normal study. ?- Routine EEG: Done at [facility] 05/05/18: Normal study. 2019 MRI: ?- MRI brain was done??in 2016 was unremarkable per patient. ?-MRI brain: 05/10/2018- No acute intracranial abnormality CT: ?-CT scan head- No images in system SPECT: S/P: Hospital Course: Bessie Levy is a 35 y.o. female who was admitted to the epilepsy service for further evaluationand differential diagnosis/characterization of events. Upon arrival to the EMU scalp electrodes wereplaced and video EEG monitoring was initiated. In order to precipitate seizure activity Joakote washeld upon admission. She had no events overnight, EEG was normal and her Topamax and Onfi were decreased by half the following day, no seizures occurred overnight and both were discontinued at that time. That night the patient reported a BRANNON and worsening tremors which sometimes precede seizures. Her symptoms were not improved with ibuprofen, and she received migraine cocktail (Mg, Tylenol, compazine,benadryl) with minimal effect. She was monitored off medications with no typical events occurring. Her medications were restarted on 07/10/21, headache improved. She was discharged in stable condition on07/10/21. As none of patient's typical events in question occurred during admission we could not provide a definite etiology for her events. Additional seizure provocation procedures included: photic stimulation, hyperventilation, and self induced sleep deprivation. Operations & Procedures: None Consultations: None Diagnostic Tests & Neuroimaging:: Date Study Results 07/04/2021 ECG Component Ref Range & Units 7 d ago Ventricular rate BPM 66 Atrial Rate BPM 66 P-R Interval ms 168 QRS Duration ms 98 Q-T Interval ms 406 QTC Calculated (Bezet) ms 425 Calculated P [employer] degrees 48 Calculated R [employer] degrees 69 Calculated T [employer] degrees 92 INTERPRETATION Normal sinus rhythm T wave abnormality, consider anterolateral ischemia Abnormal ECG When compared with 07/04/2021 - 07/11/21 video EEG Summary of Events: Day 1 (07/04/21): 0 events Day 2 (07/05/21): 0 events Day 3 (07/06/21): 2 events Day 4 (07/07/21): 0 events Day 5 (07/08/21): 0 events Day 6 (07/09/21): 0 events ?? Pertinent Home Medications: Onfi 10mg QHS Topamax 100mg/200mg Depakote 250mg/500mg ?? Antiseizure medications during monitoring: Discontinue Depakote 250/500mg??(07/04)? Onfi 10 mg nightly-->5mg nighty (07/05) --> off (07/07) Topamax 100mg/200mg -->??50mg/100mg (07/05) --> off (07/07) Day 5 (07/08/21): off anti-seizure medications ?? This Recording: Start: 07/06/21 at 05:00 Start: 07/09/21 at 05:00 End: 07/10/21 at 05:00 Duration: 24 hours ?? BRIEF HISTORY Bessie Levy is a 35 y.o. year old patient here for characterization of events ?? METHODS A 21 channel digitized electroencephalogram was performed in the Epilepsy Monitoring Unit by the [facility] Clinical Neurophysiology Laboratory. The 10/20 international system of electrode placement was used and bipolar and referential electrode montages were recorded. In addition to EEG the patient was monitored for EKG and lateral/vertical eye movements. Video was recorded during the session. ELECTROENCEPHALOGRAPHER'S REPORT Background During the awake state with the eyes closed the background consisted of a moderate amplitude, 9-10 Hz posterior reactive rhythm that attenuated appropriately with eye opening. Beta activity was distributed diffusely with an anterior predominance. There was a normal anterior-posterior voltage gradient. With eye opening the background activity changed to a low voltage mixture of alpha, beta, and occasional theta range frequencies. There were no significant asymmetries of background activity noted. ?? Sleep Stage II/III sleep was obtained and consisted of symmetrical sleep spindles, vertex sharp waves, anddiffuse delta slowing. A generalized spike and wave discharge with broad field was seen, most likelyrepresentative of a K-complex. Example on 07/09/2021 at 13:14:21 ?? Abnormal Interictal Activity None ?? Clinical Events Event #1 on 07/06/21 at 17:53 Clinical: Patient reports having a severe headache which she has prior to her seizures. She does note that she has headaches independent of her seizures. EEG: No abnormal EEG correlate ?? Event #2 on 07/06/21 at 22:34 Clinical: Patient reports headache with dizziness EEG: No abnormal EEG correlate ?? INTERPRETATION This EEG is normal during the awake and asleep states. CLINICAL CORRELATION: This day 5 of video EEG is normal. There were 2 events of headaches on a prior recording that did not represent epileptic seizures. No epileptiform discharges or seizures seen thus far. No further events captured. ?? Labs: Recent Results (from the past 168 hour(s)) Comprehensive metabolic panel (non-fasting) Collection Time: 07/04/21 4:59 PM Result Value Ref Range Glucose Lvl 82 65 - 199 mg/dL BUN 10 8 - 18 mg/dL Creatinine 0.81 0.70 - 1.20 mg/dL Sodium 136 135 - 145 mmol/L Potassium 3.8 3.5 - 5.0 mmol/L Chloride 104 98 - 107 mmol/L CO2 18 (L) 22 - 31 mmol/L Anion Gap 14 5 - 15 mmol/L Calcium 9.1 8.5 - 10.5 mg/dL Total Protein 8.1 (H) 6.1 - 8.0 g/dL Albumin 4.7 3.2 - 5.2 g/dL AST 21 0 - 30 unit/L ALT 21 0 - 30 unit/L Alk Phos 33 (L) 35 - 105 unit/L Total Bilirubin 0.3 0.2 - 1.3 mg/dL Estimated GFR 93 >=60 mL/min/1.73 m?? Beta HCG, quantitative Collection Time: 07/04/21 4:59 PM Result Value Ref Range Beta hCG Quant <1 mlU/ML Clobazam Level Collection Time: 07/04/21 4:59 PM Result Value Ref Range Clobazam 145.0 30 - 300 ng/mL Desmethylclobazam 1080.0 300 - 3000 ng/mL Valproic Acid Level, Total Collection Time: 07/04/21 4:59 PM Result Value Ref Range Valproic Lvl 51 mg/L Topiramate level Collection Time: 07/04/21 4:59 PM Result Value Ref Range Topiramate Lvl 7.3 mcg/mL Hemogram Collection Time: 07/04/21 4:59 PM Result Value Ref Range WBC 9.2 4.0 - 9.5 x10(3)/mcL RBC 4.95 4.00 - 5.21 x10(6)/mcL Hemoglobin 14.6 11.7 - 15.5 g/dL Hematocrit 44.1 35.7 - 45.8 % MCV 89.1 82.6 - 94.4 fL MCH 29.5 27.1 - 32.0 pg MCHC 33.1 31.7 - 35.0 g/dL Platelets 254 145 - 357 x10(3)/mcL RDWSD 37.8 37.0 - 46.0 fL RDWCV 11.8 11.5 - 14.1 % MPV 8.9 7.6 - 12.9 fL nRBC % Auto 0.0 % nRBC Abs Auto 0.000 0.000 - 0.000 x10(3)/mcL Differential, Automated Collection Time: 07/04/21 4:59 PM Result Value Ref Range Neutrophils % 53.2 % Neutr Abs (ANC) 4.92 1.70 - 6.10 x10(3)/mcL Lymphocytes % 30.8 % Lymphocytes Abs 2.8 0.9 - 3.2 x10(3)/mcL Monocytes % 9.5 % Monocyte Abs 0.9 0.3 - 0.9 x10(3)/mcL Eosinophils % 5.0 % Eosinophils Abs 0.5 (H) 0.0 - 0.4 x10(3)/mcL Basophils % 1.1 % Basophils Abs 0.1 0.0 - 0.1 x10(3)/mcL Immature Gran % 0.40 % Miriam Gran Abs 0.04 0.00 - 0.04 x10(3)/mcL COVID-19 PCR Collection Time: 07/04/21 5:33 PM Specimen: Nasopharyngeal Swab Symptoms->Surveillance Result Value Ref Range SARS-CoV-2 RNA PCR Not Detected Not Detected SARS-CoV-2 Source [employer] Swab EKG 12 Lead Collection Time: 07/04/21 6:54 PM COVID-19 PCR Collection Time: 07/07/21 7:50 PM Specimen: Nasopharyngeal Swab Symptoms->Surveillance Result Value Ref Range SARS-CoV-2 RNA Not Detected Not Detected SARS-Cov-2 RNA Source [employer] Swab Pending Studies and Lab Data: No current labs Vital Signs at Discharge: BP: 116/64, Heart Rate: 58, Temp: 36.7 ??C (98.1 ??F), Resp: 18, BMI (Calculated): 33.03 Height: 154.9 cm (5' 1) (07/04/21 161) Weight: 79.3 kg (174 lb 13.2 oz) (07/04/21 161) Functional and Cognitive Status: Baseline mentation and function Physical Exam at Discharge: See day of discharge progress note Discharge Conditions/Prognosis: Good Discharge to: Home Updated Allergies/ADRs: No Known Allergies Immunizations Given this Hospitalization: Immunization History Administered Date(s) Administered ??? Influenza Vaccine (Novel) [id number], Injectable 04/26/2009 ??? Influenza Vaccine, Whole 04/26/2009 Discharge Medications: Your Medications Continued medications, unchanged Dose Details ARIPiprazole 2 mg Tab Commonly known as: Abilify Take 2 mg by mouth daily. 2 mg Refills: 0 cholecalciferol (Vitamin D3) 50 mcg (2,000 unit) Tab Take 1 tablet by mouth daily. 2,000 Units Quantity: 90 tablet Refills: 3 citalopram 20 mg Tab Commonly known as: CeleXA Take 20 mg by mouth daily. 20 mg Refills: 0 cloBAZam 10 mg Tab Commonly known as: Onfi Take 1 tablet by mouth nightly. 10 mg Quantity: 30 tablet Refills: 5 divalproex EC 250 mg Tbec Commonly known as: Depakote 250mg in the morning, 500mg nightly Quantity: 90 tablet Refills: 11 Flovent HFA 110 mcg/actuation Hfaa Inhale 2 puffs into the lungs 2 times daily. Generic drug: fluticasone propionate 2 puff Refills: 0 meloxicam 15 mg Tab Commonly known as: MOBIC Take 1 tablet by mouth daily. 15 mg Quantity: 30 tablet Refills: 12 ProAir HFA 90 mcg/actuation Hfaa INL 1 TO 2 PFS PO Q 4 TO 6 H PRN Generic drug: albuteroL Refills: 0 topiramate 200 mg Tab Commonly known as: Topamax Take 1/2 a pill in AM and 1 pill in PM Quantity: 180 tablet Refills: 1 UNABLE TO FIND Take by mouth as needed. Med Name: CBD oil Refills: 0 STOPPED Medications atorvastatin 20 mg Tab Commonly known as: Lipitor Smoking Status at Discharge: Social History Tobacco Use Smoking Status Never Smoker Smokeless Tobacco Never Used Instructions Given to Patient at Discharge: Patient Instructions After Visit Summary: (Please ensure patient gets a copy of their full discharge summary as well.) We hope that you have had a positive experience at the [facility] Epilepsy Monitoring Unit. Here is some general information about the details of your stay, and what comes next. YOUR DIAGNOSIS:Paroxysmal events, etiology unknown Since you were off of medications for a period of time: ??? You may be at risk for having a seizure when you go home. Make sure someone who knows about yourseizures stays with you and knows what to do in case you have one. ??? You may initially have side effects from going back on medications even though you were on them before. Be careful when engaging in any activities. ??? You may have memory problems and forget some of the instructions given to you or the answers to questions that you may have had about your stay. Refer to your discharge paperwork for instructions. Write down your questions to bring to your follow up appointment. MEDICATIONS CHANGES: None ??? Always take your medication as prescribed by your physician. Ask your nurse to help you arrange a convenient schedule for taking your medication. ??? Learn how to obtain medication refills. ??? Get a Medic Alert bracelet, necklace or card from your pharmacy and always carry it with you. ??? Carry the telephone numbers of your doctor and your hospital and a list of your medications in case you should suddenly need emergency medical treatment. ??? Seizure medications have side effects. You should discuss side effects with your provider. Most epilepsy medications have similar ???brain related?? side effects which include sleepiness, dizziness, mood changes, balance problems, memory problems and vision problems. Some may cause weight changes. You may also obtain printed information about side effects of your medication. ??? Check with your provider before taking [id number] medications or herbal therapies. These can interfere with how well your seizure medications work. FOLLOWUP APPOINTMENT: You will have an outpatient followup appointment in the neurology clinic at [facility]. If not already listed in this document, we will contact you to schedule this appointment. -- If 1 week passes by after you are discharged and you still do not have an appointment, please call [phone]. Future Appointments and Orders Future Appointments and Orders Future Appointments Provider Department Dept Phone 09/05/2021 4:30 PM Tereso Mohan MD Neurology at [facility] Arrive at: Senior Technical Writer Area 3C [phone] Specific instructions related to your condition: ??? Call your doctor or seek medical attention if you experience an event lasting more than 5 minutes. ??? Advise your family and friends that if you have an episode, they should position you on a flat carpeted surface if possible, in a clear area, to avoid injury. They should turn you on your side if you start to vomit. Keep track of the date and time the event started, how long it lasted, whether or not you lost consciousness, a description of your body movements, what provoked it (if known), and any injuries you suffered. ??? Activity restrictions:To minimize your risk of injury, we recommend the following: Take showers instead of baths. Do not swim unsupervised. Avoid scuba diving and other underwater activities. Avoidhazardous activities such as mountain climbing, fires, and activities involving heights. Avoid usingheavy machinery, such as chainsaws. ??? Driving restrictions: [place] Residents: According to [place] driving laws, after you have experienced an episode of loss of consciousness due to a seizure you cannot drive for a minimum of 1 year or until cleared by your physician.We strongly recommend that you avoid driving cars, recreational vehicles or heavy machinery and seekalternate transportation. [Statute: [place]. SAF-C 205.08] For more information, please visit [email or web address] [place] Residents: According to [place] driving laws, after you have experienced an episode of lossof consciousness due to a seizure you may not be able drive until cleared by your physician with final approval depending upon the [place] Commissioner. We strongly recommend that you avoid driving cars, recreational vehicles or heavy machinery and seek alternate transportation. [Statute: 23 [place]. STAT.MAIKLE. ? 636-37] For more information, please visit [email or web address]-[email or web address] ?? Diet: As before. For questions regarding this document or issues relating to this hospitalization on the Neurology Service, please contact your inpatient physician through the [facility] Size Marker . Issues afterhours and on weekends will be handled by the Neurology staff on-call. General Instructions None Future Appointments and Orders Future Appointments and Orders Future Appointments Provider Department Dept Phone 09/05/2021 4:30 PM Tereso Mohan MD Neurology at [facility] Arrive at: Senior Technical Writer Area [phone] Primary Care Provider: SEL[address] / [place] [address] Discharge References/Attachments None documented in this encounter Discharge Instructions Patient Lorin Rhodes, [place] PILOT - 07/11/2021 8:16 AM EDT After Visit Summary: (Please ensure patient gets a copy of their full discharge summary as well.) We hope that you have had a positive experience at the [facility] Epilepsy Monitoring Unit. Here is some general information about the details of your stay, and what comes next. YOUR DIAGNOSIS:Paroxysmal events, etiology unknown Since you were off of medications for a period of time: You may be at risk for having a seizure when you go home. Make sure someone who knows about your seizures stays with you and knows what to do in case you have one. You may initially have side effects from going back on medications even though you were on them before. Be careful when engaging in any activities. You may have memory problems and forget some of the instructions given to you or the answers to questions that you may have had about your stay. Refer to your discharge paperwork for instructions. Write down your questions to bring to your follow up appointment. MEDICATIONS CHANGES: None Always take your medication as prescribed by your physician. Ask your nurse to help you arrange a convenient schedule for taking your medication. Learn how to obtain medication refills. Get a Medic Alert bracelet, necklace or card from your pharmacy and always carry it with you. Carry the telephone numbers of your doctor and your hospital and a list of your medications in caseyou should suddenly need emergency medical treatment. Seizure medications have side effects. You should discuss side effects with your provider. Most epilepsy medications have similar ???brain related?? side effects which include sleepiness, dizziness, mood changes, balance problems, memory problems and vision problems. Some may cause weight changes. You may also obtain printed information about side effects of your medication. Check with your provider before taking [id number] medications or herbal therapies. These can interfere with how well your seizure medications work. FOLLOWUP APPOINTMENT: You will have an outpatient followup appointment in the neurology clinic at [facility]. If not already listed in this document, we will contact you to schedule this appointment. -- If 1 week passes by after you are discharged and you still do not have an appointment, please call [phone]. Future Appointments and Orders Future Appointments and Orders Future Appointments Provider Department Dept Phone 09/05/2021 4:30 PM Tereso Mohan MD Neurology at [facility] Arrive at: Senior Technical Writer Area 3C [phone] Specific instructions related to your condition: Call your doctor or seek medical attention if you experience an event lasting more than 5 minutes. Advise your family and friends that if you have an episode, they should position you on a flat carpeted surface if possible, in a clear area, to avoid injury. They should turn you on your side if you start to vomit. Keep track of the date and time the event started, how long it lasted, whether or notyou lost consciousness, a description of your body movements, what provoked it (if known), and any injuries you suffered. Activity restrictions:To minimize your risk of injury, we recommend the following: Take showers instead of baths. Do not swim unsupervised. Avoid scuba diving and other underwater activities. Avoid hazardous activities such as mountain climbing, fires, and activities involving heights. Avoid using heavy machinery, such as chainsaws. Driving restrictions: [place] Residents: According to [place] driving laws, after you have experienced an episode of loss of consciousness due to a seizure you cannot drive for a minimum of 1 year or until cleared by your physician.We strongly recommend that you avoid driving cars, recreational vehicles or heavy machinery and seekalternate transportation. [[place]. SAF-C 205.08] For more information, please visit [email or web address] Residents: According to [place] driving laws, after you have experienced an episode of lossof consciousness due to a seizure you may not be able drive until cleared by your physician with final approval depending upon the [place] Commissioner. We strongly recommend that you avoid driving cars, recreational vehicles or heavy machinery and seek alternate transportation. [Statute: 23 [place]. STAT.MAIKEL. ? 636-37] For more information, please visit [email or web address] Diet: As before. For questions regarding this document or issues relating to this hospitalization on the Neurology Service, please contact your inpatient physician through the [facility] Size Marker . Issues afterhours and on weekends will be handled by the Neurology staff on-call. documented in this encounter Medications at Time of Discharge Medication Sig Dispensed Refills Start Date End Date topiramate (Topamax) 200 Take 1/2 a pill in 180 tablet 1 06/2021 mg Tablet AM and 1 pill in PM divalproex EC (Depakote) 250mg in the 90 tablet 11 2 250 mg Tablet, Delayed morning, 500mg Release [...] mouth nightly. documented as of this encounter Progress Notes Lorin Guevara APRN - 07/11/2021 9:26 AM EDT [facility] EPILEPSY MONITORING UNIT- PROGRESS NOTE Bessie Levy: 35 y.o.: [id number]: Referring Provider: Comfort Urban APRN: PT ID: 35 y.o. right-handed female, differential diagnosis/characterization of events, concerning for seizures. ?? Interval History: 07/11/21 No events overnight. Physical Exam Vitals: Blood pressure 130/80, pulse 66, temperature 36.7 ??C (98.1 ??F), temperature source Oral, resp. rate 16, height 154.9 cm (5' 1), weight 79.3 kg (174 lb 13.2 oz), SpO2 96 %. General: Patient of apparent stated age, well nourished, well developed, NAD Psych: Mood pleasant, Behavior appropriate Derm: No obvious rash Extremities: Full ROM. HEENT: Normocephalic, atraumatic Neuro: Alert and orientated Speech and language fluent, no dysarthria EOMI,no nystagmus Symmetric smile, eyelids closed equally Hearing grossly intact. Normal tone and bulk. Gross and fine motor intact BUE tremor, 5-6 Hz, mild jaw tremor Gait not assessed Assessment Bessie Levy is a 35 y.o. 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 No events thus far, and EEG continues to appear normal. Restarted ASMs yesterday, plan to discharge today, Plan # Admit to neurology ?? 24 hour Video EEG monitoring ?? Seizure precautions ?? If no seizure by HD2: Photic, HV, Sleep Deprive ?? Basic labs on admission, including AED levels ?? Prophylaxis: ?? Ibuprofen for pain ?? SCDs, Lovenox, ambulate frequently to prevent DVTs. ?? Hydroxyzine 25mg q4hrs prn anxiety ?? BMX for tongue bite # ASM plan: -ASMs: Restart Depakote 250/500mg Topamax 100/200mg Onfi 10mg qhs -Other Medications: Continue:remaining home medications Tentative rescue plan (subject to change per provider): 1. Acute repetitive seizures 1. 2mg IV Ativan after 1 GTC or 3 focal with impaired awareness (complex partial) seizures in 24 hours. ?? If No IV access: give 5mg Q5 min prn (2 doses) intranasal midazolam as alternative ?? 1. If progression to status??epilepticus: 1. Any GTC??longer than 5 minutes??or focal with impaired awareness??seizure longer than 10 minutes ?? First line: 4mg IV ativan ?? Keppra IV Push 60mg/kg (max 4.5gm) # Nursing seizure exam plan: ?? Standard Exam: Assess A&O status, give code word for later recall, follow simple/complex commands, assess language, strength/motor function. ?? # BMI CLASS Obesity Class I Body mass index is 33.03 kg/m??. # Dispo Planning: ?? Likely today CODE STATUS: Full Lorin Guevara APRN [facility] Department of Neurology Epilepsy Team Pager #[phone] ?? Total time greater than 35 minutes which was spent on pre-charting, reviewing results of diagnostic studies, patient care coordination/discharge planning as well as patient education and counseling. Associated attestation - Ming Arguello Jr., MD - 07/12/2021 9:15 AM EDT I saw and evaluated the patient with Cady Guevara APRN. Restarted meds last afternoon in anticipation of d/c today. No seizures, and her headache is tremendously improved. Postural tremor persists-I wondered if this might be related to VPA but is contained while off of this drug several days. Etiologyof seizure-like spells not clear, but epilepsy remains high on the differential, along with syncope.Pt being discharged to home today, please see summary for details. Lorin Guevara APRN - 07/10/2021 7:40 AM EDT [facility] EPILEPSY MONITORING UNIT- PROGRESS NOTE Bessie Levy: 35 y.o.: [id number]: Referring Provider: Comfort Urban APRN: PT ID: 35 y.o. right-handed female, differential diagnosis/characterization of events, concerning for seizures. ?? Interval History: 07/10/21 BRANNON continues, restart ASMs today. No events overnight. Physical Exam Vitals: Blood pressure 111/71, pulse 66, temperature 36.6 ??C (97.9 ??F), temperature source Oral, resp. rate 16, height 154.9 cm (5' 1), weight 79.3 kg (174 lb 13.2 oz), SpO2 97 %. General: Patient of apparent stated age, well nourished, well developed, NAD Psych: Mood pleasant, Behavior appropriate Derm: No obvious rash Extremities: Full ROM. HEENT: Normocephalic, atraumatic Neuro: Alert and orientated Speech and language fluent, no dysarthria EOMI,no nystagmus Symmetric smile, eyelids closed equally Hearing grossly intact. Normal tone and bulk. Gross and fine motor intact BUE tremor, 5-6 Hz, postural Gait not assessed Assessment Bessie Levy is a 35 y.o. 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 No events thus far, and EEG continues to appear normal. Restart ASMs today with plan to discharge tomorrow. Plan # Admit to neurology ?? 24 hour Video EEG monitoring ?? Seizure precautions ?? If no seizure by HD2: Photic, HV, Sleep Deprive ?? Basic labs on admission, including AED levels ?? Prophylaxis: ?? Ibuprofen for pain ?? SCDs, Lovenox, ambulate frequently to prevent DVTs. ?? Hydroxyzine 25mg q4hrs prn anxiety ?? BMX for tongue bite # ASM plan: -ASMs: Restart Depakote 250/500mg Topamax 100/200mg Onfi 5mg qhs -Other Medications: Continue:remaining home medications Tentative rescue plan (subject to change per provider): 1. Acute repetitive seizures 1. 2mg IV Ativan after 1 GTC or 3 focal with impaired awareness (complex partial) seizures in 24 hours. ?? If No IV access: give 5mg Q5 min prn (2 doses) intranasal midazolam as alternative ?? 1. If progression to status??epilepticus: 1. Any GTC??longer than 5 minutes??or focal with impaired awareness??seizure longer than 10 minutes ?? First line: 4mg IV ativan ?? Keppra IV Push 60mg/kg (max 4.5gm) # Nursing seizure exam plan: ?? Standard Exam: Assess A&O status, give code word for later recall, follow simple/complex commands, assess language, strength/motor function. ?? # BMI CLASS Obesity Class I Body mass index is 33.03 kg/m??. # Dispo Planning: ?? Likely tomorrow CODE STATUS: Full Lorin Guevara APRN [facility] Department of Neurology Epilepsy Team Pager #[phone] ? Total time greater than 35 minutes which was spent on pre-charting, reviewing results of diagnostic studies, patient care coordination/discharge planning as well as patient education and counseling. Associated attestation - Ming Arguello Jr., MD - 07/10/2021 2:33 PM EDT I saw and evaluated the patient with Cady Guevara APRN. Headache is pretty bad this am. Still no seizures, and EEG remains essentially normal. Discussed restarting medications today, and plan for d/c to home tomorrow. Etiology still unclear. Ming Arguello Jr., MD - 07/09/2021 11:21 AM EDT [facility] EPILEPSY MONITORING UNIT- PROGRESS NOTE Bessie Levy: 35 y.o.: [id number]: Referring Provider: Comfort Urban APRN: PT ID: 35 y.o. right-handed female, differential diagnosis/characterization of events, concerning for seizures. ?? Interval History: 07/09/21 BRANNON continues, 06/11 but not disabling. No seizures despite sleep deprivation. Physical Exam Vitals: Blood pressure 129/74, pulse 78, temperature 36.4 ??C (97.5 ??F), temperature source Oral, resp. rate 18, height 154.9 cm (5' 1), weight 79.3 kg (174 lb 13.2 oz), SpO2 97 %. General: Patient of apparent stated age, well nourished, well developed, NAD Psych: Mood pleasant, Behavior appropriate Derm: No obvious rash Extremities: Full ROM. HEENT: Normocephalic, atraumatic Neuro: Alert and orientated Speech and language fluent, no dysarthria EOMI,no nystagmus Symmetric smile, eyelids closed equally Hearing grossly intact. Normal tone and bulk. Gross and fine motor intact BUE tremor, 5-6 Hz, postural Gait not assessed Assessment Bessie Levy is a 35 y.o. 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 No events thus far, and EEG continues to appear normal. Her headaches continue, most likely due at least in part to withdraw of VPA-will add hydroxyzine today. She also has an action/postural tremor which I had thought might be related to VPA but it remains this morning. Plan # Admit to neurology ?? 24 hour Video EEG monitoring ?? Seizure precautions ?? If no seizure by HD2: Photic, HV, Sleep Deprive ?? Basic labs on admission, including AED levels ?? Prophylaxis: ?? Tylenolfor pain ?? SCDs, Lovenox, ambulate frequently to prevent DVTs. ?? Hydroxyzine 25mg q4hrs prn anxiety ?? BMX for tongue bite # ASM plan: -ASMs:OFF ALL ASM (starting today) Discontinue Depakote 250/500mg, Topamax 100/200, Onfi 5mg qhs -Other Medications: Continue:remaining home medications ntative rescue plan (subject to change per provider): 1. Acute repetitive seizures 1. 2mg IV Ativan after 1 GTC or 3 focal with impaired awareness (complex partial) seizures in 24 hours. ?? If No IV access: give 5mg Q5 min prn (2 doses) intranasal midazolam as alternative ?? 1. If progression to status??epilepticus: 1. Any GTC??longer than 5 minutes??or focal with impaired awareness??seizure longer than 10 minutes ?? First line: 4mg IV ativan ?? Valproic Acid 40 mg/kg (max rate 6mg/kg/min) # Nursing seizure exam plan: ?? Standard Exam: Assess A&O status, give code word for later recall, follow simple/complex commands, assess language, strength/motor function. ?? # BMI CLASS Obesity Class I Body mass index is 33.03 kg/m??. # Dispo Planning: ?? Pending Course CODE STATUS: Full Ming Arguello Jr, MD [facility] Department of Neurology Epilepsy Team Pager #[phone] ? Ming Arguello Jr., MD - 07/08/2021 10:20 AM EDT [facility] EPILEPSY MONITORING UNIT- PROGRESS NOTE Bessie Levy: 35 y.o.: [id number]: Referring Provider: Comfort Urban APRN: PT ID: 35 y.o. right-handed female, differential diagnosis/characterization of events, concerning for seizures. ?? Interval History: 07/08/21 BRANNON continues, 06/11 but not disabling. No seizures despite sleep deprivation. Physical Exam Vitals: Blood pressure 112/67, pulse 78, temperature 36.5 ??C (97.7 ??F), temperature source Oral, resp. rate 16, height 154.9 cm (5' 1), weight 79.3 kg (174 lb 13.2 oz), SpO2 96 %. General: Patient of apparent stated age, well nourished, well developed, NAD Psych: Mood pleasant, Behavior appropriate Derm: No obvious rash Extremities: Full ROM. HEENT: Normocephalic, atraumatic Neuro: Alert and orientated Speech and language fluent, no dysarthria EOMI,no nystagmus Symmetric smile, eyelids closed equally Hearing grossly intact. Normal tone and bulk. Gross and fine motor intact BUE tremor, 5-6 Hz, postural Gait not assessed Assessment Bessie Levy is a 35 y.o. 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 No events thus far, and EEG continues to appear normal. Her headaches continue, most likely due at least in part to withdraw of VPA. She also has an action/postural tremor which I had thought might be related to VPA but it remains this morning. Plan # Admit to neurology ?? 24 hour Video EEG monitoring ?? Seizure precautions ?? If no seizure by HD2: Photic, HV, Sleep Deprive ?? Basic labs on admission, including AED levels ?? Prophylaxis: ?? Tylenolfor pain ?? SCDs, Lovenox, ambulate frequently to prevent DVTs. ?? Hydroxyzine 25mg q4hrs prn anxiety ?? BMX for tongue bite # ASM plan: -ASMs:OFF ALL ASM (starting today) Discontinue Depakote 250/500mg, Topamax 100/200, Onfi 5mg qhs -Other Medications: Continue:remaining home medications ntative rescue plan (subject to change per provider): 1. Acute repetitive seizures 1. 2mg IV Ativan after 1 GTC or 3 focal with impaired awareness (complex partial) seizures in 24 hours. ?? If No IV access: give 5mg Q5 min prn (2 doses) intranasal midazolam as alternative ?? 1. If progression to status??epilepticus: 1. Any GTC??longer than 5 minutes??or focal with impaired awareness??seizure longer than 10 minutes ?? First line: 4mg IV ativan ?? Valproic Acid 40 mg/kg (max rate 6mg/kg/min) # Nursing seizure exam plan: ?? Standard Exam: Assess A&O status, give code word for later recall, follow simple/complex commands, assess language, strength/motor function. ?? # BMI CLASS Obesity Class I Body mass index is 33.03 kg/m??. # Dispo Planning: ?? Pending Course CODE STATUS: Full Ming Arguello Jr, MD [facility] Department of Neurology Epilepsy Team Pager #[phone] ? Bessie Argueta MSELVIN - 07/07/2021 11:35 AM EDT [facility] EPILEPSY MONITORING UNIT- PROGRESS NOTE Bessie Levy: 35 y.o.: [id number]: Referring Provider: Comfort Urban APRN: PT ID: 35 y.o. right-handed female, differential diagnosis/characterization of events, concerning for seizures. ?? Interval History: 07/07/21 BRANNON overnight and tremors not improved with ibuprofen. Ordered migraine cocktail (Mg, Tylenol, compazine, benadryl). Physical Exam Vitals: Blood pressure 105/64, pulse 61, temperature 37 ??C (98.6 ??F), temperature source Oral, resp. rate 18, height 154.9 cm (5' 1), weight 79.3 kg (174 lb 13.2 oz), SpO2 99 %. General: Patient of apparent stated age, well nourished, well developed, NAD Psych: Mood pleasant, Behavior appropriate Derm: No obvious rash Extremities: Full ROM. HEENT: Normocephalic, atraumatic Neuro: Alert and orientated Speech and language fluent, no dysarthria EOMI,no nystagmus Symmetric smile, eyelids closed equally Hearing grossly intact. Normal tone and bulk. Gross and fine motor intact No obvious tremor or abnormal movements Gait steady and narrow based. Assessment Bessie Levy is a 35 y.o. 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 Plan # Admit to neurology ?? 24 hour Video EEG monitoring ?? Seizure precautions ?? If no seizure by HD2: Photic, HV, Sleep Deprive ?? Basic labs on admission, including AED levels ?? Prophylaxis: ?? Tylenolfor pain ?? SCDs, Lovenox, ambulate frequently to prevent DVTs. ?? Hydroxyzine 25mg q4hrs prn anxiety ?? BMX for tongue bite # ASM plan: -ASMs:OFF ALL ASM (starting today) Discontinue Depakote 250/500mg, Topamax 100/200, Onfi 5mg qhs -Other Medications: Continue:remaining home medications ntative rescue plan (subject to change per provider): 1. Acute repetitive seizures 1. 2mg IV Ativan after 1 GTC or 3 focal with impaired awareness (complex partial) seizures in 24 hours. ?? If No IV access: give 5mg Q5 min prn (2 doses) intranasal midazolam as alternative ?? 1. If progression to status??epilepticus: 1. Any GTC??longer than 5 minutes??or focal with impaired awareness??seizure longer than 10 minutes ?? First line: 4mg IV ativan ?? Valproic Acid 40 mg/kg (max rate 6mg/kg/min) # Nursing seizure exam plan: ?? Standard Exam: Assess A&O status, give code word for later recall, follow simple/complex commands, assess language, strength/motor function. ?? # BMI CLASS Obesity Class I Body mass index is 33.03 kg/m??. # Dispo Planning: ?? Pending Course CODE STATUS: Full Bessie Acharya APRN [facility] Department of Neurology Epilepsy Team Pager #[phone] ?? Total time greater than 35 minutes which was spent on pre-charting, reviewing results of diagnostic studies, patient care coordination/discharge planning as well as patient education and counseling. ?? Associated attestation - Ming Arguello Jr., MD - 07/07/2021 1:52 PM EDT I saw and evaluated the patient with Bessie Acharya APRN. No seizures, and EEG remains normal. Headache is 4/10 this am, will try ibuprofen as this has helped in the past. Tylenol is reported to be ineffective. Ming Arguello MD, PhD Felt [facility] [employer] [facility], Department of Neurology 07/07/2021 1:50 PM Eldon Craig RN - 07/06/2021 6:04 PM EDT EVENT NOTE: TIME OF EVENT: 1754 TYPE: Push button ESTIMATED DURATION: 40 seconds SEIZURE PROVOCATION: Medication cessation EXAM: Alert, oriented, following commands, naming objects Light tremors BLE with new onset BRANNON REMEMBER CODE WORD:Not Performed INTERVENTIONS: Notified MD, reassurance provided Side rails padded, vest in room/visable, O2 set up, Masimo on, suction set up, patient visable on camera, call ignacio within reach, push button on door side of room. Eldon Craig RN - 07/06/2021 3:26 PM EDT OUTCOME EVALUATION NOTE: ?? OUTCOME SUMMARY: ?? Patient is neurologically unchanged; vEEG underway, no events today. VSS on RA. Chronic pain treatedwith scheduled medications. Safety rounding complete. PLAN MOVING FORWARD: ?? VEEG. Q8 VS. Notify team of seizure activity ?? INDIVIDUALIZED FALL PREVENTION INTERVENTIONS: ?? Patient-specific fall risk factors per assessment: seizure precautions ?? Assistance: SBA ?? Supervision: Arms reach ?? Surveillance: Bed locked in low position, call ignacio within reach, purposeful hourly rounding, clutter free environment, bed/chair alarm on ?? Patient-specific fall prevention interventions for sensory deficits provided: X Yes ?? CPG GOAL OUTCOME EVALUATION: ?? Continue care plan as documented. Bessie Acharya APRN - 07/06/2021 10:06 AM EDT [facility] EPILEPSY MONITORING UNIT- PROGRESS NOTE Bessie Levy: 35 y.o.: [id number]: Referring Provider: Comfort Urban APRN: PT ID: 35 y.o. right-handed female, differential diagnosis/characterization of events, concerning for seizures. ?? Interval History: 07/06/21 No events overnight, EEG normal Physical Exam Vitals: Blood pressure 107/62, pulse 57, temperature 36.7 ??C (98.1 ??F), temperature source Oral, resp. rate 18, height 154.9 cm (5' 1), weight 79.3 kg (174 lb 13.2 oz), SpO2 96 %. General: Patient of apparent stated age, well nourished, well developed, NAD Psych: Mood pleasant, Behavior appropriate Derm: No obvious rash Extremities: Full ROM. HEENT: Normocephalic, atraumatic Neuro: Alert and orientated Speech and language fluent, no dysarthria EOMI,no nystagmus Symmetric smile, eyelids closed equally Hearing grossly intact. Normal tone and bulk. Gross and fine motor intact No obvious tremor or abnormal movements Gait steady and narrow based. Assessment Bessie Levy is a 35 y.o. 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 Plan # Admit to neurology ?? 24 hour Video EEG monitoring ?? Seizure precautions ?? If no seizure by HD2: Photic, HV, Sleep Deprive ?? Basic labs on admission, including AED levels ?? Prophylaxis: ?? Tylenolfor pain ?? SCDs, Lovenox, ambulate frequently to prevent DVTs. ?? Hydroxyzine 25mg q4hrs prn anxiety ?? BMX for tongue bite # ASM plan: -ASMs:OFF ALL ASM (starting today) Discontinue Depakote 250/500mg, Topamax 100/200, Onfi 5mg qhs -Other Medications: Continue:remaining home medications ntative rescue plan (subject to change per provider): 1. Acute repetitive seizures 1. 2mg IV Ativan after 1 GTC or 3 focal with impaired awareness (complex partial) seizures in 24 hours. ?? If No IV access: give 5mg Q5 min prn (2 doses) intranasal midazolam as alternative ?? 1. If progression to status??epilepticus: 1. Any GTC??longer than 5 minutes??or focal with impaired awareness??seizure longer than 10 minutes ?? First line: 4mg IV ativan ?? Valproic Acid 40 mg/kg (max rate 6mg/kg/min) # Nursing seizure exam plan: ?? Standard Exam: Assess A&O status, give code word for later recall, follow simple/complex commands, assess language, strength/motor function. ?? # BMI CLASS Obesity Class I Body mass index is 33.03 kg/m??. # Dispo Planning: ?? Pending Course CODE STATUS: Full Bessie Acharya APRN [facility] Department of Neurology Epilepsy Team Pager #[id number] ?? Total time greater than 35 minutes which was spent on pre-charting, reviewing results of diagnostic studies, patient care coordination/discharge planning as well as patient education and counseling. ?? Associated attestation - Ming Arguello Jr., MD - 07/07/2021 1:53 PM EDT I saw and evaluated the patient with Bessie Acharya APRN. No seizures, and EEG remains to appear to be normal. Will continue to monitor. Argelia Cobos - 07/05/2021 11:52 AM EDT Nutrition Initial Note Bessie Levy is a 35 y.o. y/o right-handed female with pertinent PMHx of ASD s/p repair at 16 years old, asthma, anxiety and depression, chronic lower back pain, GERD, fibromyalgia, hypertension (off medication)/hyperlipidemia and migraine who is admitted to the video EEG monitoring unit for differential diagnosis/characterization of events, concerning for seizures. Reason for intervention: MST evaluation Nutrition Recommendations: Continue Regular diet. Encourage good po intake. Monitor and encourage intake if appetite decreases. Monitor wt. Active Orders Diet Regular diet Frequency: Effective Now Number of Occurrences: Until Specified Lab Results Component Value Date NA 136 07/04/2021 K 3.8 07/04/2021 CL 104 07/04/2021 CO2 18 (L) 07/04/2021 BUN 10 07/04/2021 CREATININE 0.81 07/04/2021 ESTGFR 93 07/04/2021 MAGNESIUM 0.85 04/07/2021 CALCIUM 9.1 07/04/2021 PHOS 3.1 04/07/2021 AST 21 07/04/2021 ALT 21 07/04/2021 ALKPHOS 33 (L) 07/04/2021 BILITOT 0.3 07/04/2021 BILIDIR 0.1 06/05/2021 HA1C 5.2 04/07/2021 QAJU2CY 188 (H) 04/07/2021 25OHVITD 5 (L) 04/07/2021 SFOLATE 6.4 04/07/2021 No results found for: POCGLU Skin Status: Shift Pressure Injury Prevention Occiput: No Injury Thoracic Spine: No Injury Sacral: No Injury Ischial - left: No Injury Ischial - right: No Injury Heel - left: No Injury Heel - right: No Injury Elbow - left: No Injury Elbow - right: No Injury Device Sites: O2 sat monitor, IV sites, BP Cuff Other Sites: EEG leads Relevant medications: Vitamin D3 Last 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 as calculated from the following: Height as of this encounter: 154.9 cm (5' 1). Weight as of this encounter: 79.3 kg (174 lb 13.2 oz). [place] Body Weight: 47.7 kg Usual Body Weight: ~160 lbs Wt Readings from Last 10 Encounters: 07/04/21 79.3 kg (174 lb 13.2 oz) 06/19/21 73.9 kg (163 lb) 06/05/21 73.9 kg (163 lb) 05/18/21 73.9 kg (163 lb) 05/15/21 73.5 kg (162 lb) 04/07/21 68 kg (150 lb) 11/15/20 74.8 kg (165 lb) 06/14/20 73.9 kg (163 lb) 03/07/20 73.9 kg (163 lb) 02/22/20 73.9 kg (163 lb) Assessment: Estimated needs: Calories: 1470-4633 (20-25 kcal/kg) Protein: 70-95 grams (1.5-2 g/kg IBW) Nutrition Focused Physical Exam (NFPE): Not performed Nutrition intake and intake history/Interview: 07/05: Pt seen for MST evaluation. She reported a good appetite and was having some snacks brought in for her. Per pt she had lost had lost about 40 lbs over a year ago while on a medication, Topamax. Recorded wts in eDH do reflect this wt change from 06/11/2018-03/24/2019. She lost the wt w/o trying and was happy w/ the wt loss as she has a hard time loosing wt on her own. Pt had no nutrition concerns at this time. Of note Topamax is currently ordered as a future medication and may cause loss of appetite and wt loss. Please continue to monitor pt's wt and appetite. Protein-calorie Malnutrition: Not identified (Mulugeta, JPEN J Parenteral Enteral Nutr. 2011;36(3): 273-83) Nutrition to continue to follow up while inpatient Argelia Cobos Student Records Coordinator Lorin Guevara APRN - 07/05/2021 10:44 AM EDT [facility] EPILEPSY MONITORING UNIT- PROGRESS NOTE Bessie Levy: 35 y.o.: [id number]: Referring Provider: Comfort Urban APRN: PT ID: [id number] y.o. right-handed female, differential diagnosis/characterization of events, concerning for seizures. ?? Interval History: 07/05/21 No events overnight, EEG normal Physical Exam Vitals: Blood pressure 111/71, pulse 63, temperature 36.6 ??C (97.9 ??F), temperature source Oral, resp. rate 18, height 154.9 cm (5' 1), weight 79.3 kg (174 lb 13.2 oz), SpO2 98 %. General: Patient of apparent stated age, well nourished, well developed, NAD Psych: Mood pleasant, Behavior appropriate Derm: No obvious rash Extremities: Full ROM. HEENT: Normocephalic, atraumatic Neuro: Alert and orientated Speech and language fluent, no dysarthria EOMI,no nystagmus Symmetric smile, eyelids closed equally Hearing grossly intact. Normal tone and bulk. Gross and fine motor intact No obvious tremor or abnormal movements Gait steady and narrow based. Assessment Bessie Levy is a 35 y.o. 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 Plan # Admit to neurology ?? 24 hour Video EEG monitoring ?? Seizure precautions ?? If no seizure by HD2: Photic, HV, Sleep Deprive ?? Basic labs on admission, including AED levels ?? Prophylaxis: ?? Tylenolfor pain ?? SCDs, Lovenox, ambulate frequently to prevent DVTs. ?? Hydroxyzine 25mg q4hrs prn anxiety ?? BMX for tongue bite # ASM plan: -ASMs: Continue Onfi 10 mg nightly-->5mg nighty (07/05) Topamax 100mg/200mg --> 50mg/100mg (07/05) Discontinue Depakote 250/500mg (07/04) -Other Medications: Continue:remaining home medications ntative rescue plan (subject to change per provider): 1. Acute repetitive seizures 1. 2mg IV Ativan after 1 GTC or 3 focal with impaired awareness (complex partial) seizures in 24 hours. ?? If No IV access: give 5mg Q5 min prn (2 doses) intranasal midazolam as alternative ?? 1. If progression to status??epilepticus: 1. Any GTC??longer than 5 minutes??or focal with impaired awareness??seizure longer than 10 minutes ?? First line: 4mg IV ativan ?? Valproic Acid 40 mg/kg (max rate 6mg/kg/min) # Nursing seizure exam plan: ?? Standard Exam: Assess A&O status, give code word for later recall, follow simple/complex commands, assess language, strength/motor function. ?? # BMI CLASS Obesity Class I o Body mass index is 33.03 kg/m??. # Dispo Planning: ?? Pending Course CODE STATUS: Full Lorin Guevara APRN [facility] Department of Neurology Epilepsy Team Pager #[phone] ?? Total time greater than 35 minutes which was spent on pre-charting, reviewing results of diagnostic studies, patient care coordination/discharge planning as well as patient education and counseling. ?? Associated attestation - Ming Arguello Jr., MD - 07/05/2021 1:47 PM EDT I saw and evaluated the patient with Cady Guevara APRN. Admitted to EMU yesterday afternoon, VPA stopped. No seizures, tremor seems a little better this am. No seizures, will continue to monitor. Ming Arguello MD, PhD Felt [facility] [employer] [facility], Department of Neurology 07/05/2021 1:47 PM Marguerite Miramontes, RN - 07/04/2021 4:10 PM EDT Bessie Levy arrived to 508 @ 1600 from Clinic. Oriented to room, call ignacio within reach, educated on importance of using prior to getting OOB, AVSS, belongings updated in eDH, bed locked in low position, purposeful hourly rounding, bed/chair alarm on. documented in this encounter H&P Notes Lorin Guevara APRN - 07/04/2021 2:25 PM EDT [facility] EPILEPSY MONITORING UNIT- ADMISSION H&P Referring Provider: Dr. Mohan PCP: Comfort Urban APRN Presenting Diagnosis/Chief Complaint: differential diagnosis/characterization of events, concerning for seizures. History of Present Illness/Description of Symptoms: Bessie Levy is a 35 y.o. y/o right-handed female with pertinent PMHx of ASD s/p repair at 16 years old, asthma, anxiety and depression, chronic lower back pain, GERD, fibromyalgia, hypertension (off medication)/hyperlipidemia and migraine who is admitted to the video EEG monitoring unit for differential diagnosis/characterization of events, concerning for seizures. 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 Onset & Progression First seizure in 2014. It was an unprovoked seizure which was witnessed by her and her daughter.?She was taken to the ER and immediately had a second episode of generalized convulsions. She had an MRI brain which was normal. EEG was subsequently normal.?She has been on antiseizure medications with variable degree of control of episodes. ?? Semiology: Headache --> spacey and dumb (can be 45 minutes) then can have a likely convulsion seizure, she can not remember what they look like, boyfriend. Postictal: Can take a c aouple hours to return normal There is no history of oral/manual automatisms, strange smells or taste, sensation of anirudh vu, jamais vu impending doom, out of body experiences, no episodes of gastric rising sensations, piloerection,sweating, nor unexplained episodes of heart raising. She has had no myoclonic jerks nor episodes of waking up sore or with the bed wet. Frequency: 2 in last 8 months, usually about 1 year, 2 years without one Triggers: None History of [] Status Epilepticus [x] Tongue biting [] Incontinence [] Post-ictal psychosis Risk factors for epilepsy: [x] Head trauma concussion, at the age of 13 [] Meningoencephalitis [] complications - , she had no complication after ??and had normal development [] Complex febrile seizures [x] Family history of epilepsy - (Agnieszka Levy) has??Chiari malformation and is s/p neurological surgery. She also has ??absence seizures and??developmental delay. Another daughter has migraine. [] Developmental Delay/ IEP? Risk factors for nonepileptic seizures (and current safety screening questions): [] Greater than 3 seizure types [] Pre-ictal headache [] Ictal eye closure [] Ictal crying [] Multiple AEDs [] Seizures greater than 5 minutes [x] Prior psych treatment - Juan, about 3-4 years ago [] History of sz in close friend / relative [x] History of suicide attempt (When) suicidal depression in the past [] Current SI [] Greater than 12 drinks per week [x] Fibromyalgia [] Malpractice lawsuit [] Sexual, emotional, or physical abuse - did not assess [x] Currently safe at home? Medications: Current? Dose Reason for D/C? Onfi [x] 10 mg nightly Topamax [x] 100mg/200mg Fingers numbness Depakote [x] 250/500mg Works the best, causing a tremor Keppra [] Increased anxiety Psychosocial: ??? Prior Psychiatric Diagnosis: Psychiatrically she looks like she is doing well. It is reasonable to can keep her on Abilify and Celexa as she suffered from suicidal depression in the past ??? Driving: Y ??? Contraception/ Folic Acid: Tubal ??? Vitamin D: Y ??? Level of Education: HS, Bachelor is communication and journalism ??? Working: [employer] ??? Household: 2 Kids and self Data: Prior workup: VEEG: EEG: ?- Routine EEG: Done at [facility] 08/08/18: Normal study. ?- Routine EEG: Done at [facility] 05/05/18: Normal study. MRI: ?- MRI brain was done??in 2016 was unremarkable per patient. -MRI brain: 05/10/2018- No acute intracranial abnormality CT: ?-CT scan head- No images in system SPECT: S/P: Stop Bang: STOP-Bang Questionnaire: YES NO Snoring? Do you Snore Loudly (loud enough to be heard through closed doors or your bed- partner elbows you forsnoring at night)? [] [x] Tired? Do you often feel Tired, Fatigued, or Sleepy during the daytime (such as falling asleep during driving)? [x] [] Observed? Has anyone Observed you Stop Breathing or Choking/Gasping during your sleep? [] [x] Pressure? Do you have or are being treated for High Blood Pressure? [] [x] Off medication Body Mass Index More than 35 kg/m2? [] [x] Age Older than 50 year old? [] [x] Neck size Large? (Circumference greater than 40cm or 16 inches measured around Wei [place]) [] [x] Gender Male? [] [x] Score: Allergies: No Known Allergies Medical/Surgical History: Patient Active Problem List Diagnosis Code ??? CIS - ASD, S/P repair ??? CIS - Asthma ??? CIS - Depression ??? CIS - Entered not Verified ??? CIS - Hx CHTN ??? Seizures R56.9 ??? Radiculopathy of lumbar region M54.16 ??? Seizure-like activity R56.9 Past Surgical History: Procedure Laterality Date ??? PRO INJECTION DX/THER SBST INTRLMNR LMBR/SAC W/IMG GDN Midline 05/18/2021 INJECTION, EPIDURAL, LUMBAR OR SACRAL (CAUDAL), WITH IMAGING GUIDANCE (WRVU 1.8) performed by Sraah Munguia MD at [facility] No current facility-administered medications on file prior to encounter. Current Outpatient Medications on File Prior to Encounter Medication Sig Dispense Refill ??? topiramate (Topamax) 200 mg Tablet Take 1/2 a pill in AM and 1 pill in PM 180 tablet 1 ??? divalproex EC (Depakote) 250 mg Tablet, Delayed Release (E.C.) 250mg in the morning, 500mg nightly 90 tablet 11 ??? cloBAZam (Onfi) 10 mg Tablet Take 1 tablet by mouth nightly. 30 tablet 5 ??? cholecalciferol, Vitamin D3, 50 mcg (2,000 unit) Tablet Take 1 tablet by mouth daily. 90 tablet 3 ??? meloxicam (MOBIC) 15 mg Tablet Take 1 tablet by mouth daily. 30 tablet 12 ??? ARIPiprazole (ABILIFY) 2 mg Tablet Take 2 mg by mouth daily. 0 ??? citalopram (CELEXA) 20 mg Tablet Take 20 mg by mouth daily. 0 ??? FLOVENT HFA 110 mcg/actuation HFA Aerosol Inhaler Inhale 2 puffs into the lungs 2 times daily. 0 ??? UNABLE TO FIND Take by mouth as needed. Med Name: CBD oil ??? ProAir HFA 90 mcg/actuation HFA Aerosol Inhaler INL 1 TO 2 PFS PO Q 4 TO 6 H PRN ??? [DISCONTINUED] atorvastatin (LIPITOR) 20 mg Tablet Take 20 mg by mouth nightly. 0 Family History: No family history on file. Social History: reports that she has never smoked. She has never used smokeless tobacco. She reportscurrent drug use. Drug: Marijuana. She reports that she does not drink alcohol. Physical Exam: There were no vitals taken for this visit. Appears stated age, well groomed, WDWN, NAD AAOx4, follows commands appropriately and crosses midline Fluent, no dysarthria or paraphasic errors, repetition intact PERRLA, EOMI without nystagmus Hearing intact to voice Normal bulk and tone Symmetric hand/finger roll Pronator drift absent Romberg absent FNF intact, mild bilateral action tremor Finger tapping slow Gait: Stable Assessment: Bessie Levy is a 35 y.o. female with pertinent PMHx of SD s/p repair in childhood,??asthma, anxiety and depression, chronic lower back pain, GERD, fibromyalgia, hypertension/hyperlipidemia and migraine who presents for video EEG monitoring for further evaluation and differential diagnosis/characte rization of events, concerning for seizures. 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 Inorder to precipitate seizure activity antiepileptic medication will be withheld. This places the patient at a high risk for seizures and status epilepticus, warranting inpatient admission for close monitoring and safety precautions. Plan: ??? Admit to neurology o 24 hour Video EEG monitoring o Seizure precautions o If no seizure by HD2: Photic, HV, Sleep Deprive o Basic labs on admission, including AED levels o Prophylaxis: o Tylenol for pain o SCDs, Lovenox, ambulate frequently to prevent DVTs. o Hydroxyzine 25mg q4hrs prn anxiety o BMX for tongue bite ??? ASM Plan o ASMs - Continue Onfi 10 mg nightly Topamax 100mg/200mg Discontinue Depakote 250/500mg o Other Meds: - Continue remaining home medications Tentative rescue plan (subject to change per provider): 1. Acute repetitive seizures 1. 2mg IV Ativan after 1 GTC or 3 focal with impaired awareness (complex partial) seizures in 24 hours. ?? If No IV access: give 5mg Q5 min prn (2 doses) intranasal midazolam as alternative 1. If progression to status epilepticus: 1. Any GTC longer than 5 minutes or focal with impaired awareness seizure longer than 10 minutes ?? First line: 4mg IV ativan ?? Load with Levetiracetam 60mg/kg IV (max rate 100mg/min) ??? Nursing seizure exam plan: o Standard Exam: - Assess A&O status, give code word for later recall, follow simple/complex commands, assess language, strength/motor function. ??? BMI CLASS Obesity Class I There is no height or weight on file to calculate BMI. ??? Dispo Planning o Pending Course CODE STATUS: Full Lorin John SELVIN Guevara [facility] Team Pager: [phone] Total time greater than 70 minutes which was spent on pre-charting, H&P, reviewing diagnostic studies and plan for admission as well as patient education and counseling of admission expectations. Associated attestation - Ming Arguello Jr., MD - 07/04/2021 5:53 PM EDT I saw and evaluated the patient with Cady Guevara APRN. Nature of her seizure-like episodes is not clear, but they sound very much like epileptic seizures. These continue despite 3 ASMs, thus will admit to EMU to attempt to better understand these events. Discussed procedure in detail and we are in agreement to move forward. documented in this encounter Procedure Notes Nitin Rodrigez MD - 07/11/2021 11:56 AM EDTAssociated Order(s): VIDEO EEG MONITORING Images from the original note were not included. [facility] Department of Neurology Comprehensive Final EMU Report DATES OF VIDEO EEG MONITORIN07/04/21 - 07/11/21 Demographics: Name of the Patient: Bessie Levy Date of : 1985 Sex: female History of Present Illness/Description of Symptoms:?? 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 ?? Onset & Progression First seizure in 2014. ??It was an unprovoked seizure which was witnessed by her and her daughter.?She was taken to the ER and immediately had a second episode of generalized convulsions.??She had an MRI brain which was normal.?EEG was subsequently normal.?She has been on antiseizure m edications with variable degree of control of episodes.? Semiology:?? Headache -->??spacey and dumb (can be 45 minutes) then can have a ??likely convulsion seizure, she can not remember what they look like, boyfriend. Postictal:??Can take a c couple hours to return normal There is no history of ??oral/manual automatisms, strange smells or taste, sensation of anirudh vu, jamais vu impending doom, out of body experiences, no episodes of gastric rising??sensations, piloerection, sweating, nor unexplained episodes of heart raising. She??has??had no myoclonic jerks nor episodes of waking up sore??or with the bed wet. Frequency:?2 in last 8 months, usually about 1 year, 2 years without one Triggers:??None?? History of ?[]?Status Epilepticus ?[x]?Tongue biting ?[]?Incontinence ?[]?Post-ictal psychosis Risk factors for epilepsy: ?[x]?Head trauma??concussion,?at??the??age of 13 ?[]?Meningoencephalitis ?[]? complications??-??,??she had no complication after ??and had normal development ?[]?Complex febrile seizures ?[x]?Family history of epilepsy??-??(Agnieszka Levy) has??Chiari malformation and is s/p neurological surgery. ??She also has ??absence seizures and??developmental delay. Another daughter has migraine. ?[]?Developmental Delay/ IEP? Risk factors for nonepileptic seizures (and current safety screening questions): ?[]?Greater than 3 seizure types ?[]?Pre-ictal headache ?[]?Ictal eye closure ?[]?Ictal crying?[]?Multiple AEDs ?[]?Seizures greater than 5 minutes ?[x]?Prior psych treatment??- Juan, about 3-4 years ago?[]?History of sz in close friend / relative ?[x]?History of suicide attempt (When)??suicidal depression in the past ?[]?Current SI ?[]?Greater than 12 drinks per week ?[x]?Fibromyalgia ?[]?Malpractice lawsuit ?[]?Sexual, emotional, or physical abuse??- did not assess ?[x]?Currently safe at home? ?? Medications: ?Current? ??Dose Reason for D/C? Onfi [x]? 10 mg nightly ?? Topamax [x]? 100mg/200mg Fingers numbness Depakote [x]? 250/500mg Works the best, causing a tremor Keppra []? Increased anxiety ? Psychosocial: ?? Prior Psychiatric Diagnosis:??Psychiatrically she looks like she is doing well. ??It is reasonable to can keep her on Abilify and Celexa as she suffered from suicidal depression in the past ?? Driving:??Y ?? Contraception/ Folic Acid:?Tubal? Vitamin D:??Y ?? Level of Education:??HS, Bachelor is communication and journalism ?? Working:??[employer]? Household:??2 Kids and self?? Previous investigations: EEG: ?- Routine EEG: Done at [facility]??08/08/18: Normal study. ?- Routine EEG: Done at [facility] 05/05/18: Normal study. 2019 MRI: ?- MRI brain was done??in 2016 was unremarkable per patient. ?-MRI brain: 05/10/2018- No acute intracranial abnormality CT: ?-CT scan head-??No images in system Summary of Events: Day 1 (07/04/21): 0 events Day 2 (07/05/21): 0 events Day 3 (07/06/21): 2 events Day 4 (07/07/21): 0 events Day 5 (07/08/21): 0 events Day 6 (07/09/21): 0 events Day 7 (07/10/21): 0 events Day 8 (07/11/21): 0 events ?? Pertinent Home Medications: Onfi 10mg QHS Topamax 100mg/200mg Depakote 250mg/500mg ?? Antiseizure medications during monitoring: Discontinue Depakote 250/500mg??(07/04)? Onfi 10 mg nightly-->5mg nighty (07/05) --> off (07/07) Topamax 100mg/200mg -->??50mg/100mg (07/05) --> off (07/07) 07/08/21 - 07/10/21: off anti-seizure medications Restarted depakote 250/500, topamax 100/200 and onfi 5mg Qhs on 07/10/21 ?? ELECTROENCEPHALOGRAPHER'S REPORT Background During the awake state with the eyes closed the background consisted of a moderate amplitude, 9-10 Hz posterior reactive rhythm that attenuated appropriately with eye opening. Beta activity was distributed diffusely with an anterior predominance. There was a normal anterior-posterior voltage gradient. With eye opening the background activity changed to a low voltage mixture of alpha, beta, and occasional theta range frequencies. There were no significant asymmetries of background activity noted. ?? Sleep Stage II/III sleep was obtained and consisted of symmetrical sleep spindles, vertex sharp waves, anddiffuse delta slowing. A generalized spike and wave discharge with broad field was seen, most likelyrepresentative of a K-complex. Example on 07/09/2021 at 13:14:21 ?? Abnormal Interictal Activity None ?? Clinical Events Event #1 on 07/06/21 at 17:53 Clinical: Patient reports having a severe headache which she has prior to her seizures. She does note that she has headaches independent of her seizures. EEG: No abnormal EEG correlate ?? Event #2 on 07/06/21 at 22:34 Clinical: Patient reports headache with dizziness EEG: No abnormal EEG correlate ?? INTERPRETATION This EEG is normal during the awake and asleep states. CLINICAL CORRELATION & PLAN These 8 days of video EEG were normal. There were 2 events of headaches seen that did not represent epileptic seizures and may have been the result of withdrawing her topamax and depakote. We did not capture the events of feeling spacey and dumb that could progress to a convulsion so we cannot comment on the etiology of those. No epileptiform discharges or seizures were seen during her entire recording. Her K-complexes are conspicuous for their broad field, but did not appear to be evolving in the setting of ASM withdraw in a manner to suggest a latent/treated primary generalized epilepsy. If she continues to have events, can consider a repeat EMU admission. She will continue to follow up with Dr. Mohan. Discharge seizure medications: Restarted her home medications of Depakote 250mg/500mg + Topamax 100mg/200mg + Onfi 10mg QHS Nitin Rodrigez MD Clinical Neurophysiology Fellow Nitin Rodrigez MD - 07/11/2021 8:43 AM EDT [facility] Department of Neurology Inpatient Video EEG Report Name of the Patient: Bessie Levy Date of : 1985 Date of Service: 07/11/2021 Fellow: Nitin Rodrigez MD Attending: Ming Arguello MD DATES OF VIDEO EEG (EMU) MONITORIN07/04/2021 - TBD Summary of Events: Day 1 (07/04/21): 0 events Day 2 (07/05/21): 0 events Day 3 (07/06/21): 2 events Day 4 (07/07/21): 0 events Day 5 (07/08/21): 0 events Day 6 (07/09/21): 0 events Day 7 (07/10/21): 0 events Pertinent Home Medications: Onfi 10mg QHS Topamax 100mg/200mg Depakote 250mg/500mg Antiseizure medications during monitoring: Discontinue Depakote 250/500mg (/) Onfi 10 mg nightly-->5mg nighty (07/05) --> off (07/07) Topamax 100mg/200mg --> 50mg/100mg (5/4) --> off (5/6) 07/08/21 - 07/10/21: off anti-seizure medications Restarted depakote 250/500, topamax 100/200 and onfi 5mg Qhs on 07/10/21 This Recording: Start: 07/06/21 at 05:00 Start: 07/10/21 at 05:00 End: 07/11/21 at 05:00 Duration: 24 hours BRIEF HISTORY Bessie Levy is a 35 y.o. year old patient here for characterization of events METHODS A 21 channel digitized electroencephalogram was performed in the Epilepsy Monitoring Unit by the [facility] Clinical Neurophysiology Laboratory. The 10/20 international system of electrode placement was used and bipolar and referential electrode montages were recorded. In addition to EEG the patient was monitored for EKG and lateral/vertical eye movements. Video was recorded during the session. ELECTROENCEPHALOGRAPHER'S REPORT Background During the awake state with the eyes closed the background consisted of a moderate amplitude, 9-10 Hz posterior reactive rhythm that attenuated appropriately with eye opening. Beta activity was distributed diffusely with an anterior predominance. There was a normal anterior-posterior voltage gradient. With eye opening the background activity changed to a low voltage mixture of alpha, beta, and occasional theta range frequencies. There were no significant asymmetries of background activity noted. Sleep Stage II/III sleep was obtained and consisted of symmetrical sleep spindles, vertex sharp waves, anddiffuse delta slowing. A generalized spike and wave discharge with broad field was seen, most likelyrepresentative of a K-complex. Example on 07/09/2021 at 13:14:21 Abnormal Interictal Activity None Clinical Events Event #1 on 07/06/21 at 17:53 Clinical: Patient reports having a severe headache which she has prior to her seizures. She does note that she has headaches independent of her seizures. EEG: No abnormal EEG correlate Event #2 on 07/06/21 at 22:34 Clinical: Patient reports headache with dizziness EEG: No abnormal EEG correlate INTERPRETATION This EEG is normal during the awake and asleep states. CLINICAL CORRELATION: This day 7 of video EEG is normal. There were 2 events of headaches on a prior recording that did not represent epileptic seizures. No epileptiform discharges or seizures seen thus far. Her K-complexesare conspicuous for their broad field, but do not appear to be evolving in the setting of ASM withdraw in a manner to suggest a latent/treated primary generalized epilepsy. Nitin Rodrigez MD Clinical Neurophysiology Fellow Associated attestation - Ming Arguello Jr., MD - 07/12/2021 9:19 AM EDT I have reviewed the EEG with the fellow and agree with the assessment above. Ming Arguello MD, PhD Felt [facility] [employer] [facility], Department of Neurology 07/12/2021 9:19 AM Nitin Rodrigez MD - 07/10/2021 5:00 AM EDT [facility] Department of Neurology Inpatient Video EEG Report Name of the Patient: Bessie Levy Date of : 1985 Date of Service: 07/10/2021 Fellow: Nitin Rodrigez MD Attending: Ming Arguello MD DATES OF VIDEO EEG (EMU) MONITORIN07/04/2021 - TBD Summary of Events: Day 1 (07/04/21): 0 events Day 2 (07/05/21): 0 events Day 3 (07/06/21): 2 events Day 4 (07/07/21): 0 events Day 5 (07/08/21): 0 events Day 6 (07/09/21): 0 events Pertinent Home Medications: Onfi 10mg QHS Topamax 100mg/200mg Depakote 250mg/500mg Antiseizure medications during monitoring: Discontinue Depakote 250/500mg (07/04) Onfi 10 mg nightly-->5mg nighty (07/05) --> off (07/07) Topamax 100mg/200mg --> 50mg/100mg (07/05) --> off (07/07) Day 5 (07/08/21): off anti-seizure medications This Recording: Start: 07/06/21 at 05:00 Start: 07/09/21 at 05:00 End: 07/10/21 at 05:00 Duration: 24 hours BRIEF HISTORY Bessie Levy is a 35 y.o. year old patient here for characterization of events METHODS A 21 channel digitized electroencephalogram was performed in the Epilepsy Monitoring Unit by the [facility] Clinical Neurophysiology Laboratory. The 10/20 international system of electrode placement was used and bipolar and referential electrode montages were recorded. In addition to EEG the patient was monitored for EKG and lateral/vertical eye movements. Video was recorded during the session. ELECTROENCEPHALOGRAPHER'S REPORT Background During the awake state with the eyes closed the background consisted of a moderate amplitude, 9-10 Hz posterior reactive rhythm that attenuated appropriately with eye opening. Beta activity was distributed diffusely with an anterior predominance. There was a normal anterior-posterior voltage gradient. With eye opening the background activity changed to a low voltage mixture of alpha, beta, and occasional theta range frequencies. There were no significant asymmetries of background activity noted. Sleep Stage II/III sleep was obtained and consisted of symmetrical sleep spindles, vertex sharp waves, anddiffuse delta slowing. A generalized spike and wave discharge with broad field was seen, most likelyrepresentative of a K-complex. Example on 07/09/2021 at 13:14:21 Abnormal Interictal Activity None Clinical Events Event #1 on 07/06/21 at 17:53 Clinical: Patient reports having a severe headache which she has prior to her seizures. She does note that she has headaches independent of her seizures. EEG: No abnormal EEG correlate Event #2 on 07/06/21 at 22:34 Clinical: Patient reports headache with dizziness EEG: No abnormal EEG correlate INTERPRETATION This EEG is normal during the awake and asleep states. CLINICAL CORRELATION: This day 5 of video EEG is normal. There were 2 events of headaches on a prior recording that did not represent epileptic seizures. No epileptiform discharges or seizures seen thus far. No further events captured. Ntiin Rodrigez MD Clinical Neurophysiology Fellow Associated attestation - Ming Arguello Jr., MD - 07/10/2021 2:50 PM EDT I have reviewed the EEG with the fellow and agree with the assessment above. Her K-complexes are conspicuous for their broad field, but do not appear to be evolving in the setting of ASM withdraw in a manner to suggest a latent/treated primary generalized epilepsy. Ming Arguello MD, PhD Felt [facility] [employer] [facility], Department of Neurology 07/10/2021 2:48 PM Jake Garces MD - 07/09/2021 10:54 AM EDT [facility] Department of Neurology Inpatient Video EEG Report Name of the Patient: Bessie Levy Date of : 1985 Date of Service: 07/09/2021 Fellow: Jake Garces MD Attending: Ming Arguello MD DATES OF VIDEO EEG (EMU) MONITORIN07/04/2021 - TBD Summary of Events: Day 1 (07/04/21): 0 events Day 2 (07/05/21): 0 events Day 3 (07/06/21): 2 events Day 4 (07/07/21): 0 events Day 5 (07/08/21): 0 events Pertinent Home Medications: Onfi 10mg QHS Topamax 100mg/200mg Depakote 250mg/500mg Antiseizure medications during monitoring: Discontinue Depakote 250/500mg (/) Onfi 10 mg nightly-->5mg nighty (07/05) --> off (07/07) Topamax 100mg/200mg --> 50mg/100mg (07/05) --> off (07/07) Day 5 (07/08/21): off anti-seizure medications This Recording: Start: 07/06/21 at 05:00 Start: 07/09/2021 at 05:00 End: 07/09/21 at 05:00 Duration: 24 hours BRIEF HISTORY Bessie Levy is a 35 y.o. year old patient here for characterization of events METHODS A 21 channel digitized electroencephalogram was performed in the Epilepsy Monitoring Unit by the [facility] Clinical Neurophysiology Laboratory. The 10/20 international system of electrode placement was used and bipolar and referential electrode montages were recorded. In addition to EEG the patient was monitored for EKG and lateral/vertical eye movements. Video was recorded during the session. ELECTROENCEPHALOGRAPHER'S REPORT Background During the awake state with the eyes closed the background consisted of a moderate amplitude, 9-10 Hz posterior reactive rhythm that attenuated appropriately with eye opening. Beta activity was distributed diffusely with an anterior predominance. There was a normal anterior-posterior voltage gradient. With eye opening the background activity changed to a low voltage mixture of alpha, beta, and occasional theta range frequencies. There were no significant asymmetries of background activity noted. Sleep Stage II/III sleep was obtained and consisted of symmetrical sleep spindles, vertex sharp waves, anddiffuse delta slowing. A generalized spike and wave discharge with broad field was seen, most likelyrepresentative of a K-complex. Abnormal Interictal Activity None Clinical Events Event #1 on 07/06/21 at 17:53 Clinical: Patient reports having a severe headache which she has prior to her seizures. She does note that she has headaches independent of her seizures. EEG: No abnormal EEG correlate Event #2 on 07/06/21 at 22:34 Clinical: Patient reports headache with dizziness EEG: No abnormal EEG correlate INTERPRETATION This EEG is normal during the awake and asleep states. CLINICAL CORRELATION: This day 5 of video EEG is normal. There were 2 events of headaches on a prior recording that did not represent epileptic seizures. No epileptiform discharges or seizures seen thus far. No further events captured. Jake Garces MD Clinical Neurophysiology Fellow Associated attestation - Ming Arguello Jr., MD - 07/09/2021 11:25 AM EDT I have reviewed the EEG with the fellow and agree with the assessment above. Ming Arguello MD, PhD Felt [facility] [employer] [facility], Department of Neurology 07/09/2021 11:25 AM Jake Garces MD - 07/07/2021 6:23 PM EDT [facility] Department of Neurology Inpatient Video EEG Report Name of the Patient: Bessie Levy Date of : 1985 Date of Service: 07/07/2021 Fellow: Jake Garces MD Attending: Ming Arguello MD DATES OF VIDEO EEG (EMU) MONITORIN07/04/2021 - TBD Summary of Events: Day 1 (07/04/21): 0 events Day 2 (07/05/21): 0 events Day 3 (07/06/21): 2 events Day 4 (07/07/21): 0 events Pertinent Home Medications: Onfi 10mg QHS Topamax 100mg/200mg Depakote 250mg/500mg Antiseizure medications during monitoring: Discontinue Depakote 250/500mg??(07/04)? Onfi 10 mg nightly-->5mg nighty (07/05) --> off (07/07) Topamax 100mg/200mg --> 50mg/100mg (07/05) --> off (07/07) ?? This Recording: Start: 07/06/21 at 05:00 Start: 07/07/2021 at 05:00 End: 07/08/21 at 05:00 Duration: 24 hours BRIEF HISTORY Bessie Levy is a 35 y.o. year old patient here for characterization of events METHODS A 21 channel digitized electroencephalogram was performed in the Epilepsy Monitoring Unit by the [facility] Clinical Neurophysiology Laboratory. The 10/20 international system of electrode placement was used and bipolar and referential electrode montages were recorded. In addition to EEG the patient was monitored for EKG and lateral/vertical eye movements. Video was recorded during the session. ELECTROENCEPHALOGRAPHER'S REPORT Background During the awake state with the eyes closed the background consisted of a moderate amplitude, 10 Hz posterior reactive rhythm that attenuated appropriately with eye opening. Beta activity was distributed diffusely with an anterior predominance. There was a normal anterior-posterior voltage gradient. With eye opening the background activity changed to a low voltage mixture of alpha, beta, and occasional theta range frequencies. There were no significant asymmetries of background activity noted. Sleep Stage II/III sleep was obtained and consisted of symmetrical sleep spindles, vertex sharp waves, anddiffuse delta slowing. Abnormal Interictal Activity None Clinical Events Event #1 on 07/06/21 at 17:53 Clinical: Patient reports having a severe headache which she has prior to her seizures. She does note that she has headaches independent of her seizures. EEG: No abnormal EEG correlate Event #2 on 07/06/21 at 22:34 Clinical: Patient reports headache with dizziness EEG: No abnormal EEG correlate INTERPRETATION This EEG is normal during the awake and asleep states. CLINICAL CORRELATION: This day 4 of video EEG is normal. There were 2 events of headaches on prior recording that did not represent epileptic seizures. No epileptiform discharges or seizures seen thus far. No further eventscaptured. Jake Garces MD Clinical Neurophysiology Fellow Associated attestation - Ming Arguello Jr., MD - 07/08/2021 12:10 PM EDT I have reviewed the EEG with the fellow and agree with the assessment above. Ming Arguello MD, PhD Felt [facility], Department of Neurology 07/08/2021 12:10 PM Nitin Rodrigez MD - 07/07/2021 2:05 PM EDT [facility] Department of Neurology Inpatient Video EEG Report Name of the Patient: Bessie Levy Date of : 1985 Date of Service: 07/07/2021 Fellow: Nitin Rodrigez MD Attending: Ming Arguello MD DATES OF VIDEO EEG (EMU) MONITORIN07/04/2021 - TBD Summary of Events: Day 1 (07/04/21): 0 events Day 2 (07/05/21): 0 events Day 3 (07/06/21): 2 events Pertinent Home Medications: Onfi 10mg QHS Topamax 100mg/200mg Depakote 250mg/500mg Antiseizure medications during monitoring: Discontinue Depakote 250/500mg??(07/04)? Onfi 10 mg nightly-->5mg nighty (07/05) Topamax 100mg/200mg --> 50mg/100mg (07/05) ?? This Recording: Start: 07/06/21 at 05:00 End: 07/07/2021 at 05:00 Duration: 24 hours BRIEF HISTORY Bessie Levy is a 35 y.o. year old patient here for characterization of events METHODS A 21 channel digitized electroencephalogram was performed in the Epilepsy Monitoring Unit by the [facility] Clinical Neurophysiology Laboratory. The 10/20 international system of electrode placement was used and bipolar and referential electrode montages were recorded. In addition to EEG the patient was monitored for EKG and lateral/vertical eye movements. Video was recorded during the session. ELECTROENCEPHALOGRAPHER'S REPORT Background During the awake state with the eyes closed the background consisted of a moderate amplitude, 10 Hz posterior reactive rhythm that attenuated appropriately with eye opening. Beta activity was distributed diffusely with an anterior predominance. There was a normal anterior-posterior voltage gradient. With eye opening the background activity changed to a low voltage mixture of alpha, beta, and occasional theta range frequencies. There were no significant asymmetries of background activity noted. Sleep Stage II/III sleep was obtained and consisted of symmetrical sleep spindles, vertex sharp waves, anddiffuse delta slowing. Abnormal Interictal Activity None Clinical Events Event #1 on 07/06/21 at 17:53 Clinical: Patient reports having a severe headache which she has prior to her seizures. She does note that she has headaches independent of her seizures. EEG: No abnormal EEG correlate Event #2 on 07/06/21 at 22:34 Clinical: Patient reports headache with dizziness EEG: No abnormal EEG correlate INTERPRETATION This EEG is normal during the awake and asleep states. CLINICAL CORRELATION: This day 3 of video EEG is normal. There were 2 events of headaches that did not represent epilepticseizures. No epileptiform discharges or seizures seen thus far. Nitin Rodrigez MD Clinical Neurophysiology Fellow Associated attestation - Ming Arguello Jr., MD - 07/08/2021 11:53 AM EDT I have reviewed the EEG with the fellow and agree with the assessment above. Ming Arguello MD, PhD Felt [facility] [employer] [facility], Department of Neurology 07/08/2021 11:53 AM Nitin Rodrigez MD - 07/06/2021 9:18 AM EDT [facility] Department of Neurology Inpatient Video EEG Report Name of the Patient: Bessie Levy Date of : 1985 Date of Service: 07/06/2021 Fellow: Nitin Rodrigez MD Attending: Ming Arguello MD DATES OF VIDEO EEG (EMU) MONITORIN07/04/2021 - TBD Summary of Events: Day 1 (07/04/21): 0 events Day 2 (07/05/21): 0 events Pertinent Home Medications: Onfi 10mg QHS Topamax 100mg/200mg Depakote 250mg/500mg Antiseizure medications during monitoring: Discontinue Depakote 250/500mg??(07/04)? Onfi 10 mg nightly-->5mg nighty (07/05) Topamax 100mg/200mg --> 50mg/100mg (07/05) ?? This Recording: Start: 07/05/21 at 05:00 End: 07/06/2021 at 05:00 Duration: 24 hours BRIEF HISTORY Bessie Levy is a 35 y.o. year old patient here for characterization of events METHODS A 21 channel digitized electroencephalogram was performed in the Epilepsy Monitoring Unit by the [facility] Clinical Neurophysiology Laboratory. The 10/20 international system of electrode placement was used and bipolar and referential electrode montages were recorded. In addition to EEG the patient was monitored for EKG and lateral/vertical eye movements. Video was recorded during the session. ELECTROENCEPHALOGRAPHER'S REPORT Background During the awake state with the eyes closed the background consisted of a moderate amplitude, 10 Hz posterior reactive rhythm that attenuated appropriately with eye opening. Beta activity was distributed diffusely with an anterior predominance. There was a normal anterior-posterior voltage gradient. With eye opening the background activity changed to a low voltage mixture of alpha, beta, and occasional theta range frequencies. There were no significant asymmetries of background activity noted. Sleep Stage II/III sleep was obtained and consisted of symmetrical sleep spindles, vertex sharp waves, anddiffuse delta slowing. Abnormal Interictal Activity None Clinical Events None INTERPRETATION This EEG is normal during the awake and asleep states. CLINICAL CORRELATION: This day 2 of video EEG is normal. No epileptiform discharges, events, or seizures. Nitin Rodrigez MD Clinical Neurophysiology Fellow Associated attestation - Ming Arguello Jr., MD - 07/07/2021 1:54 PM EDT I have reviewed the EEG with the fellow and agree with the assessment above. Ming Arguello MD, PhD Felt [facility] [employer] [facility], Department of Neurology 07/07/2021 1:54 PM Nitin Rodrigez MD - 07/05/2021 12:27 PM EDT [facility] Department of Neurology Inpatient Video EEG Report Name of the Patient: Bessie Levy Date of : 1985 Date of Service: 07/05/2021 Fellow: Nitin Rodrigez MD Attending: Ming Arguello MD DATES OF VIDEO EEG (EMU) MONITORIN07/04/2021 - TBD Summary of Events: Day 1 (07/04/21): 0 events Pertinent Home Medications: Onfi 10mg QHS Topamax 100mg/200mg Depakote 250mg/500mg Antiseizure medications during monitoring: Discontinue Depakote 250/500mg??(07/04)? Onfi 10 mg nightly-->5mg nighty (07/05) Topamax 100mg/200mg --> 50mg/100mg (07/05) ?? This Recording: Start: 07/04/21 at 16:59 End: 07/05/2021 at 05:00 Duration: 11 hours BRIEF HISTORY Bessie Levy is a 35 y.o. year old patient here for characterization of events METHODS A 21 channel digitized electroencephalogram was performed in the Epilepsy Monitoring Unit by the [facility] Clinical Neurophysiology Laboratory. The 10/20 international system of electrode placement was used and bipolar and referential electrode montages were recorded. In addition to EEG the patient was monitored for EKG and lateral/vertical eye movements. Video was recorded during the session. ELECTROENCEPHALOGRAPHER'S REPORT Background During the awake state with the eyes closed the background consisted of a moderate amplitude, 10 Hz posterior reactive rhythm that attenuated appropriately with eye opening. Beta activity was distributed diffusely with an anterior predominance. There was a normal anterior-posterior voltage gradient. With eye opening the background activity changed to a low voltage mixture of alpha, beta, and occasional theta range frequencies. There were no significant asymmetries of background activity noted. Sleep Stage II/III sleep was obtained and consisted of symmetrical sleep spindles, vertex sharp waves, anddiffuse delta slowing. Abnormal Interictal Activity None Clinical Events None INTERPRETATION This EEG is normal during the awake and asleep states. CLINICAL CORRELATION: This day 1 of video EEG is normal. No epileptiform discharges, events, or seizures. Nitin Rodrigez MD Clinical Neurophysiology Fellow Associated attestation - Ming Arguello Jr., MD - 07/05/2021 1:35 PM EDT I have reviewed the EEG with the fellow and agree with the assessment above. Ming Arguello MD, PhD Diplomate, [place] [employer] and Neu[employer], with added qualification in Epilepsy thread tool grinder set up operator Electroencephalography Co-Director of Intraoperative Neurophysiologic Monitoring [facility] [employer] [facility], Department of Neurology 07/05/2021 1:35 PM Elaina Jason - 07/04/2021 5:21 PM EDT [facility] Department of Neurology Inpatient Continuous EEG Report Name of the Patient: Bessie Levy Date of : 1985 Date of Service: 07/04/2021 Referring physician: Lorin Guevara APRN BRIEF HISTORY: Bessie Levy is a 35 y.o. patient with pertinent PMHx of ASD s/p repair at 16 years old, asthma,anxiety and depression, chronic lower back pain, GERD, fibromyalgia, hypertension (off medication)/hyperlipidemia and migraine who is admitted to the video EEG monitoring unit for differential diagnosis /characterization of events, concerning for seizures. MEDICATIONS: Current Facility-Administered Medications Medication Dose Route Frequency Provider Last Rate Last Admin ??? [START ON 07/05/2021] ARIPiprazole (Abilify) tablet 2 mg 2 mg Oral Daily Lorin Guevara, [place] PILOT ??? [START ON 07/05/2021] cholecalciferol (Vitamin D3) tablet 2,000 Units 2,000 Units Oral Daily Lorin Guevara, [place] PILOT ??? [START ON 07/05/2021] citalopram (CeleXA) tablet 20 mg 20 mg Oral Daily Lorin Guevara [place] PILOT ??? cloBAZam (Onfi) tablet 10 mg 10 mg Oral Nightly Lorin Guevara, [place] PILOT ??? [START ON 07/05/2021] meloxicam (MOBIC) tablet 15 mg 15 mg Oral Daily Lorin Guevara, [place] PILOT ??? albuteroL (Proventil) nebulizer solution 2.5 mg 2.5 mg Nebulization Q6H PRN Lorin Guevara B, [place] PILOT ??? [START ON 07/05/2021] topiramate (Topamax) tablet 100 mg 100 mg Oral QAM Guevara Lorin B, [place] PILOT ??? topiramate (Topamax) tablet 200 mg 200 mg Oral Nightly Guevara, Lorin B, [place] PILOT ??? sodium chloride 0.9 % (flush) (BD PosiFlush Normal Saline 0.9) flush 5 mL 5 mL Intravenous BID Guevara Lorin B, [place] PILOT ??? sodium chloride 0.9 % (flush) (BD PosiFlush Normal Saline 0.9) flush 5-20 mL 5-20 mL IntravenousQ1 Min PRN Guevara Lorin B, [place] PILOT ??? lidocaine (Xylocaine) 1% (10 mg/mL) injection 3 mg 0.3 mL Subcutaneous Once PRN Ismael, Lorin B,[place] PILOT ??? LORazepam (Ativan) (2 mg/mL) injection 2 mg 2 mg Intravenous Once PRN Guevara, Lorin B, [place] PILOT ??? enoxaparin (Lovenox) (40 mg/0.4 mL) subcutaneous injection 40 mg 40 mg Subcutaneous Nightly Guevara Lorin Dora, [place] PILOT METHODS: A 21 channel digitized continuous electroencephalogram with video was set up and recording started at 17;10 on 07/04/2021. Following explanation of the procedure, the 10/20 international system of electrode placement was used to determine electrode placement and disposable MRI conditional electrodes were applied using the paste/collodion method of application. In addition to EEG the patient was monitored for EKG. Video was recorded during the session. LOCKSTITCH SLEEVE SETTER'S REPORT: Performed by: Elaina Jason At the onset of the recording the patient was awake and cooperative. Movement and other artifact was not significant. Comments: documented in this encounter Miscellaneous Notes Plan of Care - Milagros Howard RN - 07/11/2021 11:22 AM EDT Bessie Levy discharged to home by car with Juan Pate. All belongings sent with patient. PIV removed, skin free from pressure ulcers. Discharge instructions, medications, and follow-up appointments reviewed, education provided on seizures, all questions answered. Patient instructed to call with co ncerns. Care Management Discharge - Shannan Johnson RN - 07/11/2021 10:00 AM EDT CARE MANAGEMENT FINAL DISCHARGE NOTE Chart reviewed, care reviewed with primary team and at interdisciplinary rounds. Patient is medically ready for discharge to home with family support, no discharge needs identified at this time. Needs for Transition of Care: Plan for discharge is: Home w/o Services Outpatient Agency/Support Group Needs: Other Agency Referrals & Follow-up Care: none noted Transportation: family or friend will provide-via private vehicle. Wheelchair van/Ambulance? No Functional status prior to admission: Independent Home Environment: Others in the home: child(jeremie), dependent. Current Living Arrangements: home/apartment/condo. Accessibility Concerns:no concerns noted at this time. Current Functional Ability: Independent DME used at home: none DME Needed at Discharge: none noted Patient is insured through: Primary Insurance: [place] Payor: [place] / Plan: [place] PRIMARY CARE PL[place] / Product Type: *No Product type* / Secondary Insurance: N/A Prescription Coverage: Yes This plan was formulated with input from patient, Bessie (please identify family/friend involved ifapplicable) and team. All are in agreement with plan. Shannan MANDUJANO, RN Pager #[phone] Plan of Care - Lani Quick RN - 07/11/2021 4:30 AM EDT OUTCOME EVALUATION NOTE: OUTCOME SUMMARY: Pt A&O, denies H/A or other pain. Mood is good. Makes needs known. SBA for mobility. Up to bathroom x2. No events overnight. Is currently back on all her ASM's. Excited to be discharging home latertoday. PLAN MOVING FORWARD: VEEG. Q8 hr VS. Notify team of any seizure activity.Discharge planning INDIVIDUALIZED FALL PREVENTION INTERVENTIONS: Patient-specific fall risk factors per assessment: seizure precautions Assistance: SBA Supervision: Arms reach Surveillance: Bed locked in low position, call ignacio within reach, purposeful hourly rounding, clutter free environment, bed/chair alarm on Patient-specific fall prevention interventions for sensory deficits provided: X Yes CPG GOAL OUTCOME EVALUATION: Continue care plan as documented. Plan of Care - Lenka Clarke RN - 07/10/2021 4:30 PM EDT OUTCOME EVALUATION NOTE: ?? OUTCOME SUMMARY: ?? A+Ox4, VSS, pain 6-09/10 BRANNON. Scheduled Advil given for BRANNON, AED restarted. No events noted. Seizure precautions maintained. ?? PLAN MOVING FORWARD: ?? Monitor neuros Monitor vs Maintain safety D/c planning Pain management ?? INDIVIDUALIZED FALL PREVENTION INTERVENTIONS: ?? Patient-specific fall risk factors per assessment: lines, seizures ?? Assistance: SBA ?? Supervision: Arms reach ?? Surveillance: Bed locked in low position, call ignacio within reach, purposeful hourly rounding, clutter free environment, bed/chair alarm on ?? Patient-specific fall prevention interventions for sensory deficits provided: Yes ?? CPG GOAL OUTCOME EVALUATION: ?? Continue care plan as documented. Plan of Care - Marcelina Douglas RN - 07/10/2021 12:44 AM EDT OUTCOME EVALUATION NOTE: OUTCOME SUMMARY: Pt A/Ox4, VSS on RA. Pt denies numbness and tingling. Pt endorses a headache 4/10 with good relief from ibuprofen. Slight tremor noted in bilateral hands with fine motor activity. Pt up to bathroom SBA, significant other at bedside until 2300. Seizure precautions maintained, will continue to monitor. PLAN MOVING FORWARD: Maintain pt safety Seizure precautions vEEG Q8 VS D/C planning INDIVIDUALIZED FALL PREVENTION INTERVENTIONS: Patient-specific fall risk factors per assessment: Lines and devices, hospital environment Assistance: SBA Supervision: Arms reach Surveillance: Bed locked in low position, call ignacio within reach, purposeful hourly rounding, clutter free environment, bed/chair alarm on Patient-specific fall prevention interventions for sensory deficits provided: N/A CPG GOAL OUTCOME EVALUATION: Continue care plan as documented. Plan of Care - Lenka Clarke RN - 07/09/2021 10:05 AM EDT OUTCOME EVALUATION NOTE: OUTCOME SUMMARY: A+Ox4, VSS, pain 5-6/10 BRANNON but pt stated tolerable. Scheduled and PRN meds given r/t BRANNON continuing. No events noted. Seizure precautions maintained. PLAN MOVING FORWARD: Monitor neuros Monitor vs Maintain safety D/c planning Pain management INDIVIDUALIZED FALL PREVENTION INTERVENTIONS: Patient-specific fall risk factors per assessment: lines, seizures Assistance: SBA Supervision: Arms reach Surveillance: Bed locked in low position, call ignacio within reach, purposeful hourly rounding, clutter free environment, bed/chair alarm on Patient-specific fall prevention interventions for sensory deficits provided: Yes CPG GOAL OUTCOME EVALUATION: Continue care plan as documented. Plan of Care - Aishwarya Lala RN - 07/09/2021 12:57 AM EDT OUTCOME EVALUATION NOTE: OUTCOME SUMMARY: Pt A&Ox4, AVSS on RA. Still complaining of headache, managed by scheduled medication. Kept herself awake until 2am. Continued on VEEG, no events noted. Safety maintained. PLAN MOVING FORWARD: VEEG. Q8 VS. Notify team of seizure activity INDIVIDUALIZED FALL PREVENTION INTERVENTIONS: Patient-specific fall risk factors per assessment: hospital environment, hx of seizure, devices, wires/tubes Assistance: SBA Supervision: Arms reach Surveillance: Bed locked in low position, call ignacio within reach, purposeful hourly rounding, clutter free environment, bed/chair alarm on Patient-specific fall prevention interventions for sensory deficits provided: X Yes CPG GOAL OUTCOME EVALUATION: Continue care plan as documented Plan of Care - Mae Banda RN - 07/08/2021 6:43 PM EDT OUTCOME EVALUATION NOTE: OUTCOME SUMMARY: Pt A&O x 4. VSS on RA. vEEG continued. Headache pain,treated with scheduled ibuprofen. OOB to bathroom with 1 SBA. No Sz events today. Sz precautions maintained. Call light/push button within reach, pt ringing appropriately. Will continue to monitor. PLAN MOVING FORWARD: Continue vEEG Maintain Safety Sz Precautions INDIVIDUALIZED FALL PREVENTION INTERVENTIONS: Patient-specific fall risk factors per assessment: history of seizures, hospital environment, lines/wires Assistance: SBA Supervision: Arms reach Surveillance: Bed locked in low position, call ignacio within reach, purposeful hourly rounding, clutter free environment, bed/chair alarm on, family at bedside Patient-specific fall prevention interventions for sensory deficits provided: Yes CPG GOAL OUTCOME EVALUATION: Continue care plan as documented. Plan of Care - Aishwarya Lala RN - 07/08/2021 12:37 AM EDT OUTCOME EVALUATION NOTE: OUTCOME SUMMARY: Pt A&Ox4, AVSS on RA. Still complaining of headache, managed by scheduled medication. Kept herself awake until 4am. Continued on VEEG, no events noted. Safety maintained. PLAN MOVING FORWARD: VEEG. Q8 VS. Notify team of seizure activity INDIVIDUALIZED FALL PREVENTION INTERVENTIONS: Patient-specific fall risk factors per assessment: hospital environment, hx of seizure, devices, wires/tubes Assistance: SBA Supervision: Arms reach Surveillance: Bed locked in low position, call ignacio within reach, purposeful hourly rounding, clutter free environment, bed/chair alarm on Patient-specific fall prevention interventions for sensory deficits provided: X Yes CPG GOAL OUTCOME EVALUATION: Continue care plan as documented Care Management - Shannan Johnson RN - 07/07/2021 4:32 PM EDT OFFICE OF CARE MANAGEMENT PROGRESS NOTE LOS: Hospital Day 3 days Chart reviewed, care reviewed with primary team and at interdisciplinary rounds. Patient continues to meet inpatient level of care related to: VEEG for increased seizure like activity. Functional status prior to admission: Independent Home Environment: Others in the home: child(jeremie), dependent. Current Living Arrangements: home/apartment/condo. Accessibility Concerns: no concerns noted at this time. Current Functional Ability: Independent DME used at home: none DME Needed at Discharge: none noted Patient is insured through: Primary Insurance: [place] Pay[place] / Plan: [place] PRIMARY CARE PL[place] / Product Type: *No Product type* / Secondary Insurance: N/A Last Physical Therapy Recommendation: with Last Occupational Therapy Recommendation: with Plan for discharge is: Home w/o Services Outpatient Agency/Support Group Needs: Other Agency Referrals: Not Applicable Transportation: family or friend will provide Barriers to discharge: None Psych: Adjustment to diagnosis/illness Plan going forward: home no needs. Care Management will continue to follow and assist with dischargeplanning and coordination of care as indicated. Anticipated Date of Discharge: 07/11/2021 Shannan MANDUJANO, RN Pager #[phone] Plan of Care - Shelby Mills RN - 07/07/2021 9:27 AM EDT OUTCOME EVALUATION NOTE: OUTCOME SUMMARY: Pt A&Ox4, AVSS on RA. C/p continued headache pain, with some dizziness notes. Continues to have bilateral hand tingling/numbness. Continued on VEEG, no events noted. PLAN MOVING FORWARD: VEEG. Q8 VS. Notify team of seizure activity INDIVIDUALIZED FALL PREVENTION INTERVENTIONS: Patient-specific fall risk factors per assessment: hospital environment, hx of seizure, devices, wires/tubes Assistance: SBA Supervision: Arms reach Surveillance: Bed locked in low position, call ignacio within reach, purposeful hourly rounding, clutter free environment, bed/chair alarm on Patient-specific fall prevention interventions for sensory deficits provided: X Yes CPG GOAL OUTCOME EVALUATION: Continue care plan as documented Plan of Care - Aishwarya Lala RN - 07/07/2021 12:42 AM EDT OUTCOME EVALUATION NOTE: OUTCOME SUMMARY: Pt A&Ox4, AVSS on RA. Continued on VEEG, no events overnight. Complained of Severe BRANNON not relieved by scheduled medication, MD informed and ordered one time medication for BRANNON (see MAR for details).Safety mainatined, seizure precaution maintained. PLAN MOVING FORWARD: VEEG. Q8 VS. Notify team of seizure activity INDIVIDUALIZED FALL PREVENTION INTERVENTIONS: Patient-specific fall risk factors per assessment: hospital environment, hx of seizure, devices, wires/tubes Assistance: SBA Supervision: Arms reach Surveillance: Bed locked in low position, call ignacio within reach, purposeful hourly rounding, clutter free environment, bed/chair alarm on Patient-specific fall prevention interventions for sensory deficits provided: X Yes CPG GOAL OUTCOME EVALUATION: Continue care plan as documented Plan of Care - Lani Quick RN - 07/06/2021 4:58 AM EDT OUTCOME EVALUATION NOTE: OUTCOME SUMMARY: Pt A&O, denies pain. Mood pleasant. Up to bathroom x1. Started on ibuprofen and Topamax last evening. No seizure activity noted overnight.Slept well. PLAN MOVING FORWARD: VEEG. Q8 VS. Notify team of seizure activity INDIVIDUALIZED FALL PREVENTION INTERVENTIONS: Patient-specific fall risk factors per assessment: seizure precautions Assistance: SBA Supervision: Arms reach Surveillance: Bed locked in low position, call ignacio within reach, purposeful hourly rounding, clutter free environment, bed/chair alarm on Patient-specific fall prevention interventions for sensory deficits provided: X Yes CPG GOAL OUTCOME EVALUATION: Continue care plan as documented. Plan of Care - Marguerite Miramontes RN - 07/05/2021 2:17 PM EDT OUTCOME EVALUATION NOTE: OUTCOME SUMMARY: Care assumed at 1300. A&Ox4, VSS on RA. Pt endorsed headache this am, resolved. Up to BR with SBA. No sz activity noted this shift. Seizure precautions maintained, safety maintained. PLAN MOVING FORWARD: Continue to monitor; VEEG. Hold ASDs prior to AM rounds. INDIVIDUALIZED FALL PREVENTION INTERVENTIONS: Patient-specific fall risk factors per assessment: hospital environment, devices, sz activity. Assistance: SBA Supervision: Eyes on Surveillance: Bed locked in low position, call ignacio within reach, purposeful hourly rounding, clutter free environment, bed/chair alarm on, family at bedside Patient-specific fall prevention interventions for sensory deficits provided: Yes CPG GOAL OUTCOME EVALUATION: Continue care plan as documented. Initial Assessments - Shannan Johnson RN - 07/05/2021 11:40 AM EDT Office of Care Management Initial Assessment Medical record reviewed. Plan of care and patient status discussed with direct care Registered Nurseand/or Care Team in multidisciplinary rounds. Reason for Hospitalization: seizure monitoring Last COVID test: Lab Results Component Value Date [id number] Not Detected 07/04/2021 Present on Admission: ??? Seizure-like activity Hospitalizations Within the Past 30 Days: no previous admission in last 30 days Patient receiving hospital care under Inpatient status. Admission order reviewed. Primary Insurance on file: MEDICAID [place] Secondary Insurance on file:@ Primary care provider on file: Comfort Urban APRN [phone] Pharmacy: [id number] - [place], [place] - [address] [place] [address] [address] [facility] [address] [phone] [id number] - [place] [address] [facility] [address] [facility] [id number] Advance Care Planning: Attempt Cardiopulmonary Resuscitation - Inpatient <no information> -Advanced Directive: No, need to discuss Current Functional Ability: Independent Functional Status Prior to Admission: Independent Home Environment: Others in the home: child(jeremie), dependent. Current Living Arrangements: home/apartment/condo. Accessibility Concerns:no concerns noted at this time. Current DME: none [address] [facility] [address] Social & Family Supports: All names listed below confirmed with patient as current and correct Extended Emergency Contact Information Primary Emergency Contact: Minoo Forbes Mobile Relation: Mother Secondary Emergency Contact: Juan Almazan Mobile Relation: Friend Current Care Provided by: self Transportation: no concerns Transportation Anticipated: family or friend will provide Assessment: Patient with no apparent RNCM/SW needs at this time. No housing, transportation, insurance, resources concerns identified at this time. Supports in place to achieve a safe post-hospital transition. No identified barriers to accessing necessary care and/or follow-up after discharge. Plan: Patient to d/c to home via private vehicle when medically ready. Registered Nurse Economic Development Specialist / Order Processing Manager will continue to follow patient???s progress and remain available if situation changes for coordination of care, psychosocial support and/or discharge planning. Office of Care Management Shannan MANDUJANO, RN Pager #[phone] Plan of Care - Marguerite Springer RN - 07/05/2021 2:01 AM EDT OUTCOME EVALUATION NOTE: ?? OUTCOME SUMMARY: ?? A&Ox4. VSS on RA. No c/o pain.?? vEEG continued?? No seizure events thus far ?? PLAN MOVING FORWARD: ?? vEEG monitoring. Safety maintained ?? INDIVIDUALIZED FALL PREVENTION INTERVENTIONS: ? Assistance: SBA ?? Supervision:Arms reach ?? Surveillance: Bed locked in low position, call ignacio within reach, purposeful hourly rounding, clutter free environment, bed alarm on documented in this encounter Plan of Treatment [...] EDT procedure are in the results section. HC PCH CLOBAZAM Routine 07/04/2021 4:59 PM Result s for this EDT procedure are i n the results section. HEMOGRAM Routine 07/04/2021 4:59 PM Results f or this EDT procedure are i n the results section. DIFFERENTIAL, Routine 07/04/2021 4:59 PM Results for this AUTOMATED EDT procedure are i n the results section. HC PCH TOPIRAMATE Routine 07/04/2021 4:59 PM Resu lts for this EDT procedure are i n the results section. HC CBC,PLT & AUTO DIFF Routine 07/04/2021 4:59 PM EDT HC CHORIONIC Routine 07/04/2021 4:59 PM Results f or this GONADOTROPINS, SERUM EDT procedu re are in the results section. HC VALPROIC ACID Routine 07/04/2021 4:59 PM Resul ts for this EDT procedure are i n the results section. COMPREHENSIVE Routine 07/04/2021 4:59 PM Results for this METABOLIC PANEL EDT procedure ar e in (NON-FASTING) the results section. documented in this encounter Results EEG video monitoring (07/11/2021 11:56 AM EDT) Narrative Ming Arguello Jr., MD - 07/11/2021 11 :56 AM EDT Nitin Rodrigez MD ? 07/12/2021 ??1:00 PM [facility] Department of Neurology Comprehensive Final EMU Report DATES OF VIDEO EEG MONITORIN07/04/21 - 07/11/21 Demographics: Name of the Patient: ??Bessie Levy Date of : ?1985 Sex: ?female History of Present Illness/Description o f Symptoms:?? 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 ?? Onset & Progression First seizure in 2014. ??It was an unpro voked seizure which was witnessed by her and her ralfe r.?She was taken to the ER and [...] investigations: EEG: ?- Routine EEG: Done at [facility]??08/08/18: Normal study. ?- Routine EEG: Done at [facility] 05/05/18: Normal study. 2018 MRI: ?- MRI brain was done??in 2016 [...] h broad field was seen, most likely resources representative of a K-comple x. ??Example on [...] Nitin Rodrigez MD Clinical Neurophysiology Fellow Lorin John Ismael [facility] PILOT NEUROLOGY ORDERABLES COVID-19 PCR (07/07/2021 7:50 PM EDT) [facility] Method Time Signature SARS-CoV-2 Not Detected Not Detected [facility] Comment: This result should be [...] diagnosis of COVID-19 is performed using the ComponentLabmontserratty m DANIEL S-CoV-2 Assay as authorized by the FDA Emergency Use Authorization (EUA). This EUA assay is intended for In-vitro Diagnostic (IVD) use with respiratory sp ecimens such as nasopharyngeal swabs collected from individuals during the ac burns paiute phase of infection. This assay is performed based on the instructions for use provided by [employer] and additional guidance provided by CDC and FDA. Testing is performed in the Clinical [facility] Laboratory within the Department of Pathology and Laboratory Medicine at [facility], certified under the Clinical Laboratory Improvement Amendments [...] clinical management guidance information are available at th e CDC Coronavirus Disease 2019 (COVID-19) webpage under Information fo r Healthcare Professionals (https://www.cdc.gov/coronavirus/2019-nc ov/hcp/index.html) Additional information about this and ot her EUA tests can be found in provider and patient fact sheets at the following FDA website: https://www.fda.gov/medical-devices/vfuugtwphaz-kbqgxkl-8360-vzwsv-98-zieijijxq- csd-bmpkyjxbpgtgbf-owoiqlg-devices/wmafg-cxjioayspqn-cjvu SARS-Cov-2 RNA Source [employer] Swab [facility] Specimen (Source) Anatomical Collection Method Collection Time Re ceived Time Location / / Volume Laterality Nasopharyngeal Swab 07/07/2021 7:50 07/07 PM EDT 8:40 PM EDT Comment: Symptoms->Surveillance Resulting Agency Comment Spec In Lab Tereso Mohan MD MICROBIOLOGY - GENERAL ORDER [place]ILFREDO Performing Organization Address City/State/ZIP Code Phon e Number [place] [id number] EKG 12 Lead (07/04/2021 6:54 PM EDT) Component Value Ref Range Test Analysis Performed Pathologis t Method Time At Signature Ventricular rate 66 BPM MUSE SYSTEM Atrial Rate 66 BPM MUSE SYSTEM P-R Interval 168 ms MUSE SYSTEM QRS Duration 98 ms MUSE SYSTEM Q-T Interval 406 ms MUSE SYSTEM QTC Calculated 425 ms MUSE SYSTEM (Bezet) Calculated P [employer] 48 degrees MUSE SYSTEM Calculated R [employer] 69 degrees MUSE SYSTEM Calculated T [employer] 92 degrees MUSE SYSTEM INTERPRETATION Normal sinus [...] SYSTEM COVID-19 PCR (07/04/2021 5:33 PM EDT) [facility] Method Time Signature SARS-CoV-2 Not Detected Not Detected [place] RNA PCR [facility] Comment: This result should be interpreted in com bination with the clinical observations, patient history and epidem iological information. For testing of asymptomatic individuals, assay performa nce characteristics and clinical utility have not been evaluated. Testing for SARS-CoV-2 (Severe acute respiratory syndrome coronavirus 2, form erly known as 2019 novel coronavirus or 2019-nCoV) to aid in the diagnosis of CO VID-19 is performed using the [employer] COVID-19 Direct Assay by [employer] as authorized by the FDA issued Emergency Use Authorization (EUA). This assay is intended for In-vitro Diagnostic (IVD) use with nasopharyngeal swabs collected from individuals meeting the CDC criteria for testing. Th e assay is performed based on the instructions for use and additional guid ance provided by the FDA. Testing is performed in the Microbiology Laboratory within the Department of Pathology and Laboratory Medicine at [facility], certified under the Clinical Laboratory Improvement Amendmen [...] clinical management guidance information are available at e CDC Coronavirus Disease 2019 (COVID-19) webpage under Information fo r Healthcare Professionals (https://www.cdc.gov/coronavirus/2019-nc ov/hcp/index.html). Additional information about this and ot her EUA tests can be found in provider and patient fact sheets at the following FDA website: https://www.fda.gov/medical-devices/ffolehgyzyq-hmfdpvo-8749-qfmoz-00-sqqthrkjw- ryc-zdgeldhbioixwl-ndwnqnw-devices/xiwfy-tjdgjorjkst-zdez SARS-CoV-2 Source SUPER[employer] Swab [facility] Specimen (Source) Anatomical Collection Method Collection Time Re ceived Time Location / / Volume Laterality Nasopharyngeal Swab 07/04/2021 5:33 07/04 PM EDT 6:01 PM EDT Comment: Symptoms->Surveillance Resulting Agency Comment Spec In Lab Lorin Guevara APRN MICROBIOLOGY - GENERAL ORDER [place]ILFREDO Performing Organization Address City/State/Z[place] [address] (ABNORMAL) Differential, Automated (07/04/2021 4:59 PM EDT) Patholo gist Method Time Signature Neutrophils % 53.2 % [facility] Neutr Abs (ANC) 4.92 1.70 - [facility] 6.10 [facility] x10(3)/[facility] LAB[facility]ATORY Lymphocytes % 30.8 % [facility] Lymphocytes Abs 2.8 0.9 - 3.2 [facility] x10(3)/[facility] LABORATORY Monocytes % 9.5 % [facility] Monocyte Abs 0.9 0.3 - 0.9 [facility] x10(3)/[facility] LABORATORY Eosinophils % 5.0 % [facility] Eosinophils Abs 0.5 (H) 0.0 - 0.4 [facility] x10(3)/[facility] LABORATORY Basophils % 1.1 % [facility] [facility] Basophils Abs 0.1 0.0 - 0.1 [facility] x10(3)/[facility] LABORATORY Immature Gran % 0.40 % [facility] Comment: Immature granulocytes(IG's)percentage an d absolute count will include metamyelocytes, myelocytes, and promyelo cytes. Blood smears from CBCs yielding IG's will be scanned manually for concor dance. If this scan disagrees with the automated IG or if promyelocytes are not ed, a manual differential will be performed. Miriam Gran Abs 0.04 0.00 - 0.04 x10(3)/[facility] Specimen Anatomical Collection Method Collection Time Receive d Time (Source) Location / / Volume Laterality Blood 07/04/2021 4:59 PM 5:06 EDT PM EDT Resulting Agency Comment Spec In Lab Lorin Guevara APRN HEMATOLOGY ORDERABLES Performing Organization Address City/State/ZIP [place] [address] Hemogram (07/04/2021 4:59 PM EDT) P athologist Signature WBC 9.2 4.0 - 9.5 [facility] x10(3)/[facility] LABORATORY RBC 4.95 4.00 - MARGUERITE WINKLER 5.21 [facility] x10(6)/[facility] LABORATORY Hemoglobin 14.6 11.7 - MARGUERITE CATHI 15.5 g/dL [facility] Hematocrit 44.1 35.7 - [facility] 45.8 % [facility] MCV 89.1 82.6 - [facility] 94.4 [facility] LABORATORY MCH 29.5 27.1 - MARGUERITE CATHI 32.0 pg [facility] MCHC 33.1 31.7 - [facility] 35.0 g/dL [facility] Platelets 254 145 - 357 [facility] x10(3)/[facility] LABORATORY RDWSD 37.8 37.0 - [facility] CATHI 46.0 [facility] LABORATORY RDWCV 11.8 11.5 - [facility] 14.1 % [facility] MPV 8.9 7.6 - 12.9 [facility] LABORATORY nRBC % Auto 0.0 % [facility] nRBC Abs Auto 0.000 0.000 - [facility] 0.000 [facility] x10(3)/[facility] LABORATORY Specimen Anatomical Collection Method Collection Time Receive d Time (Source) Location / / Volume Laterality Blood 07/04/2021 4:59 PM 5:06 EDT PM EDT Resulting Agency Comment Spec In Lab Lorin Guevara APRN HEMATOLOGY ORDERABLES Performing Organization Address City/State/ZIP [place] [address] Topiramate level (07/04/2021 4:59 PM EDT) athologist Signature Topiramate Lvl 7.3 mcg/mL [facility] Comment: REFERENCE VALUE------ Reference values depend on clinical use: Anticonvulsant: 5.0-20.0 mcg/mL Psychiatric: 2.0-8.0 mcg/mL ADDITIONAL INFORMATIO N This test was developed and its performa nce characteristics determined by [facility] in a manner co nsistent with CLIA requirements. This test has not been ilsa ared or approved by the U.S. Food and Drug Administration. Test Performed by: [facility] [address] [address] Mails Supervisor: Tito King M.D. Ph. D.; CLIA# [id number] Specimen Anatomical Collection Method Collection Time Receive d Time (Source) Location / / Volume Laterality Blood 07/04/2021 4:59 PM 2 9:16 EDT AM EDT Resulting Agency Comment Spec In Lab Lorin Guevara APRN CHEMISTRY ORDERABLES Performing Organization Address City/[facility]/ZIP [facility] [place] [address] Valproic Acid Level, Total (07/04/2021 4:59 PM EDT) athologist Signature Valproic Lvl 51 mg/L [facility] Comment: Therapeutic Range: Anticonvulsant Therapy: ??50-100 mg/L Manic Episodes Associated with Bipolar D isorder: ??50-125 mg/L Specimen Anatomical Collection Method Collection Time Receive d Time (Source) Location / / Volume Laterality Blood 07/04/2021 4:59 PM 2 5:06 EDT PM EDT Resulting Agency Comment Spec In Lab Lorin Guevara APRN CHEMISTRY ORDERABLES Performing Organization Address City/[facility] Phon e Number [address] Clobazam Level (07/04/2021 4:59 PM EDT) athologist Signature Clobazam 145.0 30 - 300 [facility] ng/mL [facility] Comment: Test Performed by: [facility] [address] [address] [address] Supervisor: Tito King M.D. Ph. D.; CLIA# [id number] Desmethylclobazam 1080.0 300 - 3000 ng/mL [facility] Comment: ADDITIONAL INFORMATIO N This test was developed and its performa nce characteristics determined by [facility] in a manner co nsistent with CLIA requirements. This test has not been ilsa ared or approved by the U.S. Food and Drug Administration. Test Performed by: [facility] [address] , [place], [place] [address] Mails Supervisor: Tito King M.D. Ph. D.; CLIA# [id number] Specimen Anatomical Collection Method Collection Time Receive d Time (Source) Location / / Volume Laterality Blood 07/04/2021 4:59 PM 9:16 EDT AM EDT Resulting Agency Comment Spec In Lab Lorin Guevara APRN CHEMISTRY ORDERABLES Performing Organization Address City/State/ZIP [place] [address] Beta HCG, quantitative (07/04/2021 4:59 PM EDT) athologist Signature Beta hCG Quant <1 mlU/ML [facility] Comment: REFERENCE RANGES NON- [...] ? 8,175 - 55,868 ?18 weeks ? 8,145 - 61,418 Specimen Anatomical Collection Method Collection Time Receive d Time (Source) Location / / Volume Laterality Blood 07/04/2021 4:59 PM 5:06 EDT PM EDT Resulting Agency Comment Spec In Lab Lorin Guevara SELVIN CHEMISTRY ORDERABLES Performing Organization Address City/State/ZIP [place] [address] (ABNORMAL) Comprehensive metabolic panel (non-fasting) (07/04/2021 4:59 PM EDT) athologist Signature Glucose Lvl 82 65 - 199 [facility] mg/dL [facility] Comment: Diabetes: >=200 mg/dL plus symp toms BUN 10 8 - 18 mg/dL [facility] Creatinine 0.81 0.70 - 1.20 mg/dL [facility] Sodium 136 135 - 145 mmol/L [facility] Potassium 3.8 3.5 - 5.0 mmol/L [facility] Comment: Please note: ??Patients with WBC >100,00 0 may have falsely elevated Potassium levels. ??For accurate Potassium quantif ication in these patients send serum separator tube (gold top) for subsequent determinations. ??Contact the Clinical Chemistry Laboratory if there are any qu estions. Chloride 104 98 - 107 mmol/L [facility] CO2 18 (L) 22 - 31 mmol/L [facility] Anion Gap 14 5 - 15 mmol/L [facility] Calcium 9.1 8.5 - 10.5 mg/dL [facility] Total Protein 8.1 (H) 6.1 - 8.0 g/dL [facility] Albumin 4.7 3.2 - 5.2 g/dL [facility] AST 21 0 - 30 unit/L [facility] ALT 21 0 - 30 unit/L [facility] Alk Phos 33 (L) 35 - 105 unit/L [facility] Total Bilirubin 0.3 0.2 - 1.3 mg/dL [facility] Estimated GFR 93 >=60 mL/min/1.73 m?? [facility] Comment: This patient? s [...] / Volume Laterality Blood 07/04/2021 4:59 PM 5:06 EDT PM EDT Resulting Agency Comment Spec In Lab Lorin Guevara APRN CHEMISTRY ORDERABLES Performing Organization Address City/State/ZIP [place] [address] documented in this encounter Visit Diagnoses Diagnosis Seizure-like activity Other convulsions documented in this encounter Admitting Diagnoses Diagnosis Seizure-like activity Other convulsions documented in this encounter Administered Medications Inactive Administered Medications - up to 3 most recent administrations Medication Order MAR Action Action Date Dose Rate Site acetaminophen (Tylenol) tablet Given 07/06/2021 11:16 PM EDT 975 mg 975 mg 975 mg, Oral, ONCE, 1 dose, On Alejandra 07/06/21 at 2345, Maximum dose of acetaminophen is 4000 mg from all sources in 24 hours. When ordered for pain, acetaminophen should be given even when other ordered pain medications are indicated. , Routine ARIPiprazole (Abilify) tablet 2 mg Given 07/11/2021 9:10 AM EDT 2 mg 2 mg, Oral, DAILY, First dose on Sat07/05/21 at 0900, Until Discontinued, Routine Given 07/10/2021 8:15 AM EDT 2 mg Given 07/09/2021 8:07 AM EDT 2 mg cholecalciferol (Vitamin D3) tablet Given 07/11/2021 9:09 AM EDT 2,000 Units 2,000 Units 2,000 Units, Oral, DAILY, First dose on Sat07/05/21 at 0900, Until Discontinued, Routine Given 07/10/2021 8:15 AM EDT 2,000 Units Given 07/09/2021 8:07 AM EDT 2,000 Units citalopram (CeleXA) tablet 20 mg Given 07/11/2021 9:09 AM EDT 20 mg 20 mg, Oral, DAILY, First dose on Sat07/05/21 at 0900, Until Discontinued, Routine Given 07/10/2021 8:15 AM EDT 20 mg Given 07/09/2021 8:07 AM EDT 20 mg cloBAZam (Onfi) tablet 10 mg Given 07/04/2021 8:19 PM EDT 10 mg 10 mg, Oral, NIGHTLY, First dose on Sat07/04/21 at 2100, Until Discontinued, Routine cloBAZam (Onfi) tablet 10 mg Given 07/10/2021 9:00 PM EDT 10 mg 10 mg, Oral, NIGHTLY, First dose on Sat07/10/21 at 2100, Until Discontinued, Routine cloBAZam (Onfi) tablet 5 mg Given 07/05/2021 8:32 PM EDT 5 mg 5 mg, Oral, NIGHTLY, First dose (after last modification) on Sat07/05/21 at 2100, Until Discontinued, Routine diphenhydrAMINE (Benadryl) (50 mg/mL) Given 07/06/2021 11:29 PM EDT 12.5 mg injection 12.5 mg 12.5 mg, Intravenous, EVERY 6 HOURS SCHEDULED, First dose on Sat07/07/21 at 0000, Until Discontinued, Routine divalproex EC (Depakote) tablet 250 mg Given 07/11/2021 9:10 AM EDT 250 mg 250 mg, Oral, DAILY, First dose on Sat07/10/21 at 1230, Until Discontinued, DO NOT SPLIT, CRUSH OR OPEN, Routine Given 07/10/2021 12:33 PM EDT 250 mg divalproex EC (Depakote) tablet 500 mg Given 07/10/2021 8:27 PM EDT 500 mg 500 mg, Oral, NIGHTLY, First dose on Sat07/10/21 at 2100, Until Discontinued, DO NOT SPLIT, CRUSH OR OPEN, Routine enoxaparin (Lovenox) (40 mg/0.4 mL) Given 07/10/2021 8:27 PM EDT 40 mg subcutaneous injection 40 mg 40 mg, Subcutaneous, NIGHTLY, First dose on Sat07/04/21 at 2100, Until Discontinued, Routine Given 07/09/2021 9:50 PM EDT 40 mg Given 07/08/2021 9:13 PM EDT 40 mg hydrOXYzine (Atarax) tablet 25 mg Given 07/09/2021 12:14 PM EDT 25 mg 25 mg, Oral, 3 TIMES DAILY PRN, Starting on Sat07/09/21 at 1013, Until Sat07/11/21 at 1402, Anxiety, Headache, Routine ibuprofen (Advil) tablet 600 mg Given 07/05/2021 3:59 PM EDT 600 mg 600 mg, Oral, EVERY 8 HOURS PRN, Starting on Sat07/05/21 at 0747, Until Sat07/05/21 at 1621, Pain, Administer orally with milk or food to minimize GI irritation. Maximum dose of 3,200 mg from all sources in 24 hours, Routine Given 07/05/2021 8:05 AM EDT 600 mg ibuprofen (Advil) tablet 600 mg Given 07/11/2021 6:32 AM EDT 600 mg 600 mg, Oral, EVERY 8 HOURS, First dose (after last modification) on Sat07/05/21 at 2200, Until Discontinued, Administer orally with milk or food to minimize GI irritation. Maximum dose of 3,200 mg from all sources in 24 hours, Routine Given 07/10/2021 10:52 PM EDT 600 mg Given 07/10/2021 2:54 PM EDT 600 mg magnesium sulfate 2 g in sterile water New Bag 07/06/2021 11:2 4 PM EDT 2 g 25 mL/hr 50 mL infusion 2 g, Intravenous, ONCE, 1 dose, On Alejandra 07/06/21 at 2345, Administer over 120 Minutes prochlorperazine (Compazine) (5 mg/mL) Given 07/06/2021 11:17 PM EDT 10 mg injection 10 mg 10 mg, Intravenous, ONCE, 1 dose, On Alejandra 07/06/21 at 2345, Routine sodium chloride 0.9 % (flush) (BD PosiFlush Given 07/11/2021 9:1 0 AM EDT 5 mLs Normal Saline 0.9) flush 5 mL 5 mL, Intravenous, 2 TIMES DAILY, First dose on Sat07/04/21 at 2100, Until Discontinued, Routine Given 07/10/2021 8:28 PM EDT 5 mLs Given 07/10/2021 8:15 AM EDT 5 mLs topiramate (Topamax) tablet 100 mg Given 07/05/2021 7:00 AM EDT 100 mg 100 mg, Oral, EVERY MORNING, First dose on Sat07/05/21 at 0700, Until Discontinued, DO NOT SPLIT, CRUSH OR OPEN, Routine topiramate (Topamax) tablet 100 mg Given 07/05/2021 8:31 PM EDT 100 mg 100 mg, Oral, NIGHTLY, First dose (after last modification) on Sat07/05/21 at 2100, Until Discontinued, DO NOT SPLIT, CRUSH OR OPEN, Routine topiramate (Topamax) tablet 100 mg Given 07/11/2021 9:10 AM EDT 100 mg 100 mg, Oral, DAILY, First dose on Sat07/10/21 at 1230, Until Discontinued, DO NOT SPLIT, CRUSH OR OPEN, Routine Given 07/10/2021 12:34 PM EDT 100 mg topiramate (Topamax) tablet 200 mg Given 07/04/2021 8:19 PM EDT 200 mg 200 mg, Oral, NIGHTLY, First dose on Sat07/04/21 at 2100, Until Discontinued, DO NOT SPLIT, CRUSH OR OPEN, Routine topiramate (Topamax) tablet 200 mg Given 07/10/2021 8:26 PM EDT 200 mg 200 mg, Oral, NIGHTLY, First dose on Sat07/10/21 at 2100, Until Discontinued, DO NOT SPLIT, CRUSH OR OPEN, Routine topiramate (Topamax) tablet 50 mg Given 07/06/2021 6:54 AM EDT 50 mg 50 mg, Oral, EVERY MORNING, First dose (after last modification) on Alejandra 07/06/21 at 0700, Until Discontinued, DO NOT SPLIT, CRUSH OR OPEN, Routine documented in this encounter Active and Recently Administered Medications Times are shown in EDT. Scheduled Medication Order 07/09/2021 07/10/2021 07/11/2021 ARIPiprazole (Abilify) tablet 2 mg 0807 (Given - Provi malika: Lenka Clarke RN) 0815 (Given - Provider: Lenka Clarke RN) 0910 (Given - Provider: Milagros Howard RN) 2 mg, Oral, DAILY, First dose on 07/05 at 0900, Until Discontinued, Routine cholecalciferol (Vitamin D3) tablet 2,000 Units 0807 ( Given - Provider: Lenka Clarke RN) 0815 (Given - Provider: Lenka Clarke RN) 0909 (Given - Provider: Milagros Howard, ARLETTE) 2,000 Units, Oral, DAILY, First dose on Sat07/05/21 at 0900, Until Discontinued, Routine citalopram (CeleXA) tablet 20 mg 0807 (Given - Provide r: Lenka Clarke RN) 0815 (Given - Provider: Lenka Clarke RN) 0909 (Given - Provider: Milagros Howard RN) 20 mg, Oral, DAILY, First dose on 06/23 at 0900, Until Discontinued, Routine cloBAZam (Onfi) tablet 10 mg 2099 (Given - Provi malika: Lani Quick RN) 10 mg, Oral, NIGHTLY, First dose on Sat07/10/21 at 2100, Until Discontinued, Routine divalproex EC (Depakote) tablet 250 mg 1 233 (Given - Provider: Lenka Clarke RN) 0910 (Given - Provider: Milagros Howard RN) 250 mg, Oral, DAILY, First dose on Sat at 1230, Until Discontinued, DO NOT SPLIT, CRUSH OR OPEN, Routine divalproex EC (Depakote) tablet 500 mg 2 027 (Given - Provider: Lani Quick RN) 500 mg, Oral, NIGHTLY, First dose on Sat07/10/21 at 2100, Until Discontinued, DO NOT SPLIT, CRUSH OR OPEN, Routine enoxaparin (Lovenox) (40 mg/0.4 mL) subcutaneous injec tion 40 mg 2149 (Given - Provider: Marcelina Douglas, ARLETTE) 2026 (Given - Provider: Lani Quick, ARLETTE) 40 mg, Subcutaneous, NIGHTLY, First dose on Sat07/04/21 at 2100, Until Discontinued, Routine ibuprofen (Advil) tablet 600 mg 0528 (Given - Provider : Aishwarya Deras RN)1454 (Given - Provider: Lenka Clarke, ARLETTE)2150 (Given - Provider: Marcelina Douglas, ARLETTE) 0515 (Given - Provider: Marcelina Douglas , ARLETTE)1454 (Given - Provider: Lenka Clarke, ARLETTE)2252 (Given - Provider: Lani Quick, ARLETTE) 0632 (Given - Provider: Lani Quick RN) 600 mg, Oral, EVERY 8 HOURS, First dose (after last modification) on Sat07/05/21 at 2200, Until Discontinued, Administer orally with milk or food to minimize GI irritation. Maximum dose of 3,200 mg from all sources in 24 hours, Routine sodium chloride 0.9 % (flush) (BD PosiFlush Normal Randy ine 0.9) flush 5 mL 0807 (Given - Provider: Lenka Clarke, ARLETTE)2099 (Given - Provider: Marcelina Douglas RN) 0815 (Given - Provider: Lenka galloway RN)2027 (Given - Provider: Lani Quick, ARLETTE) 0910 (Given - Provider: Milagros Howard , ARLETTE) 5 mL, Intravenous, 2 TIMES DAILY, First dose on Sat07/04/21 at 2100, Until Discontinued, Routine topiramate (Topamax) tablet 100 mg 1234 (Given - Provider: Lenka Clarke, ARLETTE) 0910 (Given - Provider: Milagros Howard , ARLETTE) 100 mg, Oral, DAILY, First dose on Sat at 1230, Until Discontinued, DO NOT SPLIT, CRUSH OR OPEN, Routine topiramate (Topamax) tablet 200 mg 2025 (Given - Provider: Lani Quick RN) 200 mg, Oral, NIGHTLY, First dose on Sat07/10/21 at 2100, Until Discontinued, DO NOT SPLIT, CRUSH OR OPEN, Routine PRN Medication Order 07/09/2021 07/10/2021 07/11/2021 albuteroL (Proventil) nebulizer solution 2.5 mg 2.5 mg, Nebulization, EVERY 6 HOURS PRN, Starting on Sat07/04/21 at 1602, Until Sat07/11/21 at 1402, Wheezing, Routine hydrOXYzine (Atarax) tablet 25 mg 1213 (Given - Provid er: Lenka Clarke RN) 25 mg, Oral, 3 TIMES DAILY PRN, Starting on Sat07/09/21 at 1013, Until Sat07/11/21 at 1402, Anxiety, Headache, Routine lidocaine (Xylocaine) 1% (10 mg/mL) injection 3 mg 3 mg (0.3 mL), Subcutaneous, ONCE PRN, 1 dose, Starting on Sat07/04/21 at 1602, Until Sat07/11/21 at 1402, for discomfort with PIV insertion, Routine LORazepam (Ativan) (2 mg/mL) injection 2 mg 2 mg, Intravenous, ONCE PRN, 1 dose, Sta rting on Sat07/04/21 at 1602, Until Sat07/11/21 at 1402, Seizures, give 2mg IV once after 2 generalized tonic clonic seizures or 3 complex partial seizures in 24 h ours, push over 1 minute. (Then page MD for post administration assessment, re- page if no reply after 5 minutes), Routine sodium chloride 0.9 % (flush) (BD PosiFlush Normal Saline 0.9) f lush 5-20 mL 5-20 mL, Intravenous, EVERY 1 MIN PRN, S tarting on Sat07/04/21 at 1602, Until Sat07/11/21 at 1402, flush, Flush pertains to all indwelling lines. Flush per protocol found in the job aid using the link provided on this medication record., Routine documented in this encounter Care Teams Electrical Engineering Teacher Relationship Specialty Start Date End Date Comfort Urban APRN PCP - General Family Medicine 07/19/17 [address] [place] [address] documented as of this encounter
--- OUTSIDE RECORDS SUMMARY | 2021-09-13 13:13 | XMS_ITS | Encounter Summary ---
:1985 Author Organization [facility] [place] [address] Care Team Providers Name Role Phone Comfort Urban APRN Primary Care Provider Reason for Visit Reason Onset Date Comments Appointment 06/19/2021 Encounter Details Date Type Department Care Team Description 06/19/2021 Telephone Neurology at [facility] Tereso Mohan MD Appointment [facility] [place] [address] NEUROLOGY DEPT. [phone] [place], [place] [address] (Wo rk) Social History Tobacco [...] Telephone Encounter - Gabriella Farmer - 06/20/2021 2:57 PM EDT Patient scheduled for EMU admission for Saturday07/04/21. Telephone Encounter - Jeri Villalta - 06/19/2021 4:42 PM EDT Bessie returning the call to schedule this appointment. This agent was unable to reach the office secretary. Please call Bessie back to schedule. Telephone Encounter - Gabriella Farmer - 06/19/2021 3:06 PM EDT Scheduling Instructions Provider: EMU admission Visit Type (paste FERNANDA Instructions or manually enter): Next available EMU admission ordered by Dr. Mohan Additional Info Needed: Ahsan gibson call to Gabriella documented in this encounter Plan of Treatment Not on filedocumented as of this encounter Visit Diagnoses Not on filedocumented in this encounter Care Teams Addiction Therapist Relationship Specialty Start Date End Date Comfort Urban APRN PCP - General Family Medicine 07/19/17 [place] [address] documented as of this encounter
--- OUTSIDE RECORDS SUMMARY | 2021-09-13 13:13 | XMS_ITS | Encounter Summary ---
:1985 Author Organization [facility] [place] [address] Care Team Providers Name Role Phone Comfort [...] Expiration Date Visits Requ ested Visits Authorized [id number] 1 1 Encounter Details Date Type Department Care Team Description 05/18/2021 Surgery Pain Management Sarah Naranjo MD INJECTION, EPIDURAL, [facility] LUM BAR OR [facility] (CAUDAL), WITH IMAGING [facility] PAIN MANAGEME NT GUIDANCE (WRVU 1.8) [place] [address] [place] [address] [phone] Social History Tobacco Use Types Packs/Day Years [...] for up to 48 hours. {CHECK BOX SELECTION:18336} You may also experience mild stiffness in the joint near the injection site. You may resume your normal activities: {Time; today/tomorrow:19309}. You may shower today. DO NOT tub [...] 4-6 hours after your procedure. {CHECK BOX SELECTION:86637} If you have diabetes, monitor your blood [...] Operative Note Patient Name: Bessie Levy : [id number] MR#: [id number] Case Date: 05/18/2021 Surgeon: Surgeon(s) and Role: * Sarah Munguia MD - Primary * Renato Moise MD - Fellow Present on Admission: ??? Radiculopathy of lumbar region Postoperative diagnosis: SAME LUMBAR INTERLAMINAR EPIDURAL STERIOID INJECTION PROCEDURE NOTE Ms. Bessie Levy has been referred to the [facility] for a lumbar epidural steroid injection [facility] [place] [place] [address]. The patient complains of low back pain [...] procedure. Sarah Munguia MD [facility] Train Announcer of Anesthesiology [facility] [employer] [address] [address] / [facility] CC: Comfort Urban APRN [facility] [place] [address] documented in this encounter Plan of Treatment [...] or lumbosacral neuritis or radi culitis, unspecified Radiculopathy of lumbar region Thoracic or lumbosacral neuritis or radi culitis, unspecified documented in this encounter Administered Medications Inactive Administered Medications - up to 3 most recent administrations Medication Order MAR Action Action Date Dose Rate Site iohexoL (Omnipaque) (240 mg/mL) Given 05/18/2021 11:05 AM EDT 2 mLs solution ONCE PRN, Starting on Alejandra 05/18/21 at 1105, Until Alejandra 05/18/21 at 1315, Intra-Operative (Intra-Procedure), Routine lidocaine (pf) (Xylocaine) (10 mg/mL) 1% Given 05/18/2021 11:05 AM EDT 1 mL injection ONCE PRN, Starting on Alejandra 05/18/21 at 1105, Until Alejandra 05/18/21 at 1315, Intra-Operative (Intra-Procedure), Routine methylPREDNISolone acetate (DEPO-Medrol) (80 Given 11:05 AM EDT 80 mg mg/mL) injection ONCE PRN, Starting on Alejandra 05/18/21 at 1105, Until Alejandra 05/18/21 at 1315, Intra-Operative (Intra-Procedure), Routine documented in this encounter Active and [...] Routine documented in this encounter Care Teams Manager Relationship Relationship Specialty Start Date End Date Comfort Urban APRN PCP - General Family Medicine 07/19/17 [place] [address] documented as of this encounter
--- OUTSIDE RECORDS SUMMARY | 2021-09-13 13:14 | XMS_ITS | Encounter Summary ---
:1985 Author Organization [facility] [place] [address] Care Team Providers Name Role Phone Comfort Urban FUR CLE[employer]ER Primary Care Provider Reason for Referral Diagnostic Test (Routine) - Closed Specialty Diagnoses / Procedures Referred By Contact Refer red To Contact Radiology Diagnoses Sciatica of right side Tereso Mohan MD [facility] Rad Mri Procedures MRI Lumbar Spine wo Contrast (Generic) [facility] [place] [address] [place] [address] Referral ID Status Reason Start Date Expiration Date Visits V isits Requested Authorized [id number] Closed Specialty 11/26/2019 05/24/2020 1 1 Service Requested Reason for Visit Diagnostic Test (Routine) - Closed Specialty Diagnoses / Procedures Referred By Contact Refer red To Contact Radiology Diagnoses Sciatica of right side Tereso Mohan MD [facility] Rad Mri Procedures MRI Lumbar Spine wo Contrast (Generic) [facility] [place] [address] [place] [address] Referral ID Status Reason Start Date Expiration Date Visits V isits Requested Authorized [id number] Closed Specialty 11/26/2019 05/24/2020 1 1 Service Requested Encounter Details Date Type Department Care Team Description 11/30/2019 Hospital Encounter MRI at [facility] Tereso Mohan Sciatica of right [facility] MD [address] [place], [place] [facility] [address] NEUROLOGY DEPT. [phone] [place] [address] Social History Tobacco Use Types Packs/Day Years [...] Sig Dispensed Refills Start Date End Date ProAir HFA 90 mcg/actuation INL 1 TO 2 PFS 0 04/04 HFA Aerosol Inhaler PO Q 4 TO 6 H PRN ARIPiprazole (ABILIFY) 2 mg Take 2 mg by 0 2017 Tablet mouth daily. citalopram (CELEXA) 20 mg Take 40 mg by 0 018 Tablet mouth daily. FLOVENT HFA 110 mcg/actuation Inhale 2 puffs 0 HFA Aerosol Inhaler into the lungs 2 times daily. UNABLE TO FIND Take by mouth 0 as needed. Med Name: CBD oil divalproex EC (Depakote) 250 Take 1 tablet 60 tablet 2 09/201912/09/2019 mg Tablet, Delayed Release by mouth 2 (E.C.) times daily. topiramate (Topamax) 200 mg Take 1 tablet 120 tablet 5 05/1205/05/2020 Tablet by mouth 2 times daily. MELOXICAM ORAL Take 15 mg by 0 021 mouth daily. hydroCHLOROthiazide Take 12.5 mg by 0 02/03/2018 04/07/2021 (MICROZIDE) 12.5 mg Capsule mouth daily. atorvastatin (LIPITOR) 20 mg Take 20 mg by 0 04/201807/04/2021 Tablet mouth nightly. documented as of this encounter Plan of Treatment Not on filedocumented as of this encounter Procedures Procedure Name Priority Date/Time Associated Diagnosis Comme nts MRI LUMBAR SPINE Routine 11/30/2019 7:44 AM Sciatica of right Results for this WITHOUT CONTRAST EDT side procedure a re in the results section. documented in this encounter Results MRI Lumbar Spine wo Contrast (Generic) (11/30/2019 7:44 AM EDT) Anatomical Region Laterality Modality L-spine Magnetic Resonance Specimen (Source) Anatomical Location Collection Method / Collectio n Time Received Time / Laterality Volume Impressions 11/30/2019 9:08 AM EDT Lumbar spine degenerative changes most pronounced at L4-5 where there is disc bulging and bilateral facet arthropathy. Comment: The following findings are so c ommon in people without low back pain that while we report their presence, the y must be interpreted with caution and in context of the clinical situation (Re mikhail- Prosperk Et Al, Spine 2001). Findings: (Prevalence in patients withou t low back pain), disc degeneration (decreased T2 signal, height loss, bulge ) (91%), disc T2-signal loss (83%), disc height loss (56%), disc bulge (64%), dis c protrusion (32%), annular fissure (38%). Thank you for letting us participate in the care of this patient. For questions regarding this report, please contact e number below. ? Electronically signed by: Janak Tierney MD, [facility] ([phone]), at 11/30/2019 9:08 AM Narrative 11/30/2019 9:08 AM EDT EXAMINATION: MRI LUMBAR SPINE WO CONTRAST (GENERIC) CLINICAL HISTORY: Back pain or radiculop athy, < 6 wks, uncomplicated TECHNIQUE: MRI of the lumbar spine performed withou t intravenous contrast administration. COMPARISON: None FINDINGS: There is slight anterolisthesis of L4 on L5. Alignment is otherwise unremarkable. There is no focal, aggress maryellen appearing marrow lesion. The conus is normal in appearance, terminates at L 1-L2. Visualized retroperitoneal structures are unremarkable. Findings at specific levels: L1-L2: No canal or foraminal stenosis. L2-L3: No canal or foraminal stenosis. L3-L4: There is no canal or foraminal st enosis. Mild facet degenerative change is present. L4-L5: There is marked bilateral facet a rthropathy with narrowing of the right subarticular recess to severe arthropath y and disc bulge. Disc bilateral foraminal narrowing. Mild overall canal narrowing due to combination of disc bulge, facet arthropathy, and prominent epidural fat. L5-S1: There is bilateral facet arthropa thy without foraminal stenosis. Moderate canal narrowing is due to prominent epid ural fat. Procedure Note Janak Tierney MD - 11/30/2019Format ting of this note might be different from the original. EXAMINATION: MRI LUMBAR SPINE WO CONTRAS T (GENERIC) CLINICAL HISTORY: Back pain or radiculop athy, < 6 wks, uncomplicated TECHNIQUE: MRI of the lumbar spine performed withou t intravenous contrast administration. COMPARISON: None FINDINGS: There is slight anterolisthesis of L4 on L5. Alignment is otherwise unremarkable. There is no focal, aggress maryellen appearing marrow lesion. The conus is normal in appearance, terminates at L 1-L2. Visualized retroperitoneal structures are unremarkable. Findings at specific levels: L1-L2: No canal or foraminal stenosis. L2-L3: No canal or foraminal stenosis. L3-L4: There is no canal or foraminal st enosis. Mild facet degenerative change is present. L4-L5: There is marked bilateral facet a rthropathy with narrowing of the right subarticular recess to severe arthropath y and disc bulge. Disc bilateral foraminal narrowing. Mild overall canal narrowing due to combination of disc bulge, facet arthropathy, and prominent epidural fat. L5-S1: There is bilateral facet arthropa thy without foraminal stenosis. Moderate canal narrowing is due to prominent epid ural fat. IMPRESSION Lumbar spine degenerative changes most p ronounced at L4-5 where there is disc bulging and bilateral facet arthropathy. Comment: The following findings are so c ommon in people without low back pain that while we report their presence, the y must be interpreted with caution and in context of the clinical situation (Re ference- Jarvik Et Al, Spine 2001). Findings: (Prevalence in patients withou t low back pain), disc degeneration (decreased T2 signal, height loss, bulge ) (91%), disc T2-signal loss (83%), disc height loss (56%), disc bulge (64%), dis c protrusion (32%), annular fissure (38%). Thank you for letting us participate in the care of this patient. For questions regarding this report, please contact th e number below. Electronically signed by: Janak Tierney MD, [facility] ([phone]), at 11/30/2019 9:08 AM Tereso Mohan MD IMG MRI ORDERABLES documented in this encounter Visit Diagnoses Diagnosis Sciatica of right side Sciatica documented in this encounter Care Teams Sde Relationship Specialty Start Date End Date Comfort Urban APRN PCP - General Family Medicine 07/19/17 [place] [address] documented as of this encounter
--- OUTSIDE RECORDS SUMMARY | 2021-09-13 13:14 | XMS_ITS | Encounter Summary ---
:1985 Author Organization [facility] [place] [address] Care Team Providers Name Role Phone Comfort Urban APRN Primary Care Provider Encounter Details Date Type Department Care Team Description 11/15/2020 Office Visit Neurology at [facility] Tereso Mohan MD [facility] [place] [address] NEUROLOGY DEPT. [phone] [place], [place] [address] (Wo rk) Social History Tobacco [...] Sign Reading Time Taken Comments Blood Pressure 133/73 11/15/2020 9:45 AM EDT Pulse 64 11/15/2020 9:45 AM EDT Temperature - - Respiratory Rate - - Oxygen Saturation - - Inhaled Oxygen Concentration - - Weight 74.8 kg (165 lb) 11/15/2020 9:45 AM EDT with baljit es on Height 154.9 cm (5' 1) 11/15/2020 9:45 AM EDT reported Body Mass Index 31.18 11/15/2020 9:45 AM EDT documented in this encounter Patient Instructions Patient InstructionsTereso Mohan MD - 11/15/2020 10:00 AM EDT I think you are doing reasonably well. Seizures appear to be controlled. You should stay on the same medications for now. It is likely that you had a breakthrough seizure because of low blood levels. If you have accidentally missed a dose of medication is okay to double up the next dose. Do not Triple up. Please get blood test done today The pinched nerve your back seems better following the steroid injection. This can be repeated once or twice a year as needed. It works best if there is pain in the back and also in the leg. The pain is in the middle of the back, when applying Dunnellon balm and taking 1 meloxicam daily is probably the best strategy I have sent in a prescription for the meloxicam. We could also send you back to physical therapy, and if necessary repeat injection Please call with any problems I would like to see you back in 12 months or sooner if necessary. Tereso Mohan MD Professor of neurology, [facility] [employer] at [facility] Department of Neurology, [address] Pager: [phone], #[phone] Email: [email or web address] documented in this encounter Progress Notes Tereso Mohan MD - 11/15/2020 10:00 AM EDT Neurology clinic note Chief complaint: Epilepsy. History: The patient is seen in follow-up today. As noted earlier, the patient is a 32 y/o right handed woman, referred by Comfort [...] episode, but does say that sometimes before seizuresemerald has stupid spells where she feels confused. [...] ?? 2. EEG: ?- Routine EEG:Done at [facility] 05/05/18: Normal study. ?? 3. Epilepsy Monitoring [...] that led to her being taken to [facility] emergency room. She had bitten side of her tongue quite badly, for the first time. She was discharged from there without change in me dication. She had another seizure at home and was taken to the emergency room at [facility] where she was held overnight. I spoke [...] able to continue working full-time at the [employer]. Interval History: As of 2020 she is doing quite well She had one breakthrough convulsive seizure associated with missed doses of medication. She has had no other major medical problems. 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 She is having some mid back pain without lumbar radicular symptoms. As noted earlier she had a lumbar epidural steroid injection for symptoms of sciatica with good results. Past Medical History: Patient Active Problem List [...] She is with a and two children. 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 Currently working at the [employer]. ?? Family history: There is no family history of seizures. Mother: Hypertension, Diabetes Daughters: (Agnieszka Levy) has Chiari malformation and is s/p neurological surgery. She also has absence seizures and developmental delay. Another daughter has migraine. Review of Systems: Her weight is stable she sleeps all right. Bowel and bladder function are normal. Other systems werereviewed and were unremarkable. ?? Current Medications: Current Outpatient Medications Medication Sig Dispense Refill ??? ProAir HFA 90 mcg/actuation HFA Aerosol Inhaler INL 1 TO 2 PFS PO Q 4 TO 6 H PRN ??? divalproex EC (Depakote) 250 mg Tablet, Delayed Release (E.C.) Take 1 tablet by mouth 2 times daily. 60 tablet 2 ??? topiramate (Topamax) 200 mg Tablet Take 1 tablet by mouth 2 times daily. 120 tablet 5 ??? MELOXICAM ORAL Take by mouth. Pt reports taking 20 mg a day ??? ARIPiprazole (ABILIFY) 2 mg Tablet Take 2 mg by mouth daily. 0 ??? citalopram (CELEXA) 20 mg Tablet Take 20 mg by mouth daily. 0 ??? hydroCHLOROthiazide (MICROZIDE) 12.5 mg Capsule Take 12.5 mg by mouth daily. 0 ??? atorvastatin (LIPITOR) 20 mg Tablet Take 20 mg by mouth nightly. 0 ??? FLOVENT HFA 110 mcg/actuation HFA Aerosol Inhaler Inhale 2 puffs into the lungs 2 times daily. 0 ??? UNABLE TO FIND Take by mouth as needed. Med Name: CBD oil No current facility-administered medications for this visit. Physical Examination: BP 133/73 Pulse 64 Ht 154.9 cm (5' 1) Comment: reported Wt 74.8 kg (165 lb) Comment: with shoes on BMI 31.18 kg/m?? HEENT: Unremarkable. Lungs: clear to auscultation [...] is normal with reinforcing maneuvers. ?? Sensory: Vibration sense somewhat decreased on the medial aspect of the right ankle. Otherwise unremarkable ?? Reflexes: 2+ throughout. ?Previously plantar response was flexor bilaterally. ?? Cerebellar: Normal [id number] with mild action tremor. ?? Gait: gait was normal. 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 EEG: Routine EEG:Done at [facility] 05/05/18: Normal study. Blood Tests: Blood tests all unremarkable in March 2019 ??? Valproic Acid Level, Total ??? Hepatic Function Panel ??? Basic Metabolic Panel (non-fasting) ??? CBC (with Diff) ??? Ammonia ??? Topiramate level ??? TSH ??? Vitamin B12 ??? T4 Total ??? Carnitine ??? Hemogram ??? Differential, Automated Orders Placed This Encounter Procedures ??? Valproic Acid Level, Total ??? Hepatic Function Panel ??? Basic Metabolic Panel (non-fasting) ??? CBC (with Diff) ??? Ammonia ??? Topiramate level ?? Impression and plan: The patient is doing reasonably well. 1. There is convincing evidence now that she has epilepsy, and that she probably needs Depakote for seizure control. 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 It is reassuring that MRI is normal. She is doing well on the combination of Depakote and Topamax, and Topamax has helped her to lose weight. I am inclined to make no change. One breakthrough seizure was associated with missed medication.I advised her that if she missed a dose of medication she can double up at the next dose but should not triple up. She now has an xavier that acts as a reminder. 2. Psychiatrically she looks like she is doing well. It is reasonable to can keep her on Abilify andCelexa as she suffered from suicidal depression in the past. 3. She was complaining of worsening sciatic pain and paresthesias on the right. Her exam is relatively benign, but there is some sensory loss on the medial aspect of the leg and ankle. MRI findings areconfirmatory as noted above. Lumbar epidural steroid injection has definitely helped relieve the sciatic symptoms right. She is now having mainly midline back pain for which I think application of Dunnellon yoni, and taking meloxicam is probably the best option. If symptoms worsen or if there is a significant radicular component, we could repeat the lumbar epidural steroid injection Thank you for this consultation. I will see the patient back in the epilepsy clinic in 12 months or sooner if necessary. Tereso Mohan MD [place] [address] Pager #[phone] Email: [email or web address] CC: Comfort Urban APRN documented in this encounter Miscellaneous Notes Addendum Note - Brea Almaguer - 11/15/2020 10:00 AM EDT Addended by: BREA ALMAGUER on: 11/15/2020 10:47 AM Modules accepted: Orders documented in this encounter Plan of Treatment Not on filedocumented as of this encounter Procedures Procedure Name Priority Date/Time Associated Comments Diagnosis HEMOGRAM Routine 11/15/2020 11:18 Seizures Results for this AM EDT procedure are i n the results section. DIFFERENTIAL, Routine 11/15/2020 11:18 Seizures Results fo r this AUTOMATED AM EDT procedure are i n the results section. HC VENIPUNCTURE Routine 11/15/2020 11:18 Seizures Results for this AM EDT procedure are i n the results section. HC CBC,PLT & AUTO Routine 11/15/2020 11:18 Seizures DIFF AM EDT HC AMMONIA, PLASMA Routine 11/15/2020 11:18 Seizures Resul ts for this AM EDT procedure are i n the results section. HC VALPROIC ACID Routine 11/15/2020 11:18 Seizures Results for this AM EDT procedure are i n the results section. HEPATIC FUNCTION Routine 11/15/2020 11:18 Seizures Results for this PANEL AM EDT procedure are i n the results section. BASIC METABOLIC PANEL Routine 11/15/2020 11:18 Seizures Re sults for this (NON-FASTING) AM EDT procedure are in the results section. documented in this encounter Results Differential, Automated (11/15/2020 11:18 AM EDT) P athologist Signature Neutrophils % 64.7 % [facility] Neutr Abs (ANC) 5.46 1.70 - [facility] 6.10 [facility] x10(3)/[facility] LABORATORY Lymphocytes % 21.5 % [facility] Lymphocytes Abs 1.8 0.9 - 3.2 [facility] x10(3)/[facility] LABORATORY Monocytes % 9.8 % [facility] Monocyte Abs 0.8 0.3 - 0.9 [facility] x10(3)/[facility] LABORATORY Eosinophils % 3.2 % [facility] Eosinophils Abs 0.3 0.0 - 0.4 [facility] x10(3)/[facility] LABORATORY Basophils % 0.6 % [facility] Basophils Abs 0.0 0.0 - 0.1 [facility] x10(3)/[facility] LABORATORY Immature Gran % 0.20 % [facility] Comment: Immature granulocytes(IG's)percentage an d absolute count will include metamyelocytes, myelocytes, and promyelo cytes. Blood smears from CBCs yielding IG's will be scanned manually for concor dance. If this scan disagrees with the automated IG or if promyelocytes are not ed, a manual differential will be performed. Miriam Gran Abs 0.02 0.00 - 0.04 x10(3)/[facility] MAR Y [facility] LABORATORY Specimen Anatomical Collection Method Collection Time Receive d Time (Source) Location / / Volume Laterality Blood 11/15/2020 11:18 11/15/2020 AM EDT 11:24 AM EDT Resulting Agency Comment Spec In Lab Tereso Mohan MD HEMATOLOGY ORDERABLES Performing Organization Address City/State/[place] [address] (ABNORMAL) Hemogram (11/15/2020 11:18 AM EDT) Analysis Performed At Patho logist Time Signature WBC 8.4 4.0 - 9.5 [facility] LABORATORY RBC 4.73 4.00 - [facility] 5.21 [facility] x10(6)/[facility] LABORATORY Hemoglobin 14.1 11.7 - [facility] 15.5 gm/dL [facility]OR[facility]ORY Hematocrit 40.5 35.7 - MARYANN CATHI 45.8 % [facility] MCV 85.6 82.6 - [facility] 94.4 [facility] LABORATORY MCH 29.8 27.1 - MARYANN CATHI 32.0 pg [facility]ORY MCHC 34.8 31.7 - [facility] 35.0 gm/dL [facility]ORY Platelets 292 145 - 357 [facility] x10(3)/[facility] LABORATORY RDWSD 36.5 (L) 37.0 - [facility] CATHI 46.0 [facility] LABORATORY RDWCV 11.7 11.5 - MARYANN CATHI 14.1 % [facility] LABORATORY MPV 9.4 7.6 - 12.9 [facility] LABORATORY nRBC % Auto 0.0 % [facility] nRBC Abs Auto 0.000 0.000 - [facility] CATHI 0.000 [facility] x10(3)/[facility] LABORATORY Specimen Anatomical Collection Method Collection Time Receive d Time (Source) Location / / Volume Laterality Blood 11/15/2020 11:18 11/15/2020 AM EDT 11:24 AM EDT Resulting Agency Comment Spec In Lab Tereso Mohan MD HEMATOLOGY ORDERABLES Performing Organization Address City/State/[place] [address] Topiramate level (11/15/2020 11:18 AM EDT) P athologist Signature Topiramate Lvl 15.1 mcg/mL [facility] Comment: REFERENCE VALUE------ Reference values depend on clinical use: Anticonvulsant: 5.0-20.0 mcg/mL Psychiatric: 2.0-8.0 mcg/mL ADDITIONAL INFORMATIO N This test was developed and its performa nce characteristics determined by [facility] in a manner co nsistent with CLIA requirements. This test has not been ilsa ared or approved by the U.S. Food and Drug Administration. Test Performed by: [facility] [address] [place] [address] Telecommunication Operator: Tito King M.D. Ph. D.; CLIA# [id number] Specimen Anatomical Collection Method Collection Time Receive d Time (Source) Location / / Volume Laterality Blood 11/15/2020 11:18 11/15/2020 2:22 AM EDT PM EDT Resulting Agency Comment Spec In Lab Tereso Mohan MD CHEMISTRY ORDERABLES Performing Organization Address City/[facility]/ZIP Code Phon e Number [address] Ammonia (11/15/2020 11:18 AM EDT) P athologist Signature Ammonia 36 11 - 51 [facility] mcmol/L [facility]OR[facility]ORY Specimen Anatomical Collection Method Collection Time Receive d Time (Source) Location / / Volume Laterality Blood 11/15/2020 11:18 11/15/2020 AM EDT 11:23 AM EDT Resulting Agency Comment Spec In Lab Tereso Mohan MD CHEMISTRY ORDERABLES Performing Organization Address City/[facility]/ZIP [facility] Phon e Number [address] (ABNORMAL) Basic Metabolic Panel (non-fasting) (11/15/2020 11:18 AM EDT) P athologist Signature Glucose Lvl 127 65 - 199 [facility] mg/dL [facility] Comment: Diabetes: >=200 mg/dL plus symp toms BUN 8 8 - 18 mg/dL [facility] Creatinine 0.79 0.70 - 1.20 mg/dL [facility] Sodium 137 135 - 145 mmol/L [facility] Potassium 3.5 3.5 - 5.0 mmol/L [facility] Comment: Please note: ??Patients with WBC >100,00 0 may have falsely elevated Potassium levels. ??For accurate Potassium quantif ication in these patients send serum separator tube (gold top) for subsequent determinations. ??Contact the Clinical Chemistry Laboratory if there are any qu estions. Chloride 108 (H) 98 - 107 mmol/L [facility] CO2 18 (L) 22 - 31 mmol/L [facility] Anion Gap 11 5 - 15 mmol/L [facility] Calcium 9.3 8.5 - 10.5 mg/dL [facility] Estimated GFR 96 >=60 mL/min/1.73 m?? [facility] Comment: This patient? s estimated glomerular filtration rate (eGFR) is between 96 mL/min/1.73 m2 (patients with less muscl e mass) and 111 mL/min/1.73 m2 (patients with more muscle mass) [...] (Source) Location / / Volume Laterality Blood 11/15/2020 11:18 11/15/2020 AM EDT 11:24 AM EDT Resulting Agency Comment Spec In Lab Tereso Mohan MD CHEMISTRY ORDERABLES Performing Organization Address City/State/[place] [address] (ABNORMAL) Hepatic Function Panel (11/15/2020 11:18 AM EDT) P athologist Signature Total Protein 7.3 6.1 - 8.0 [facility] gm/dL [facility] Albumin 4.2 3.2 - 5.2 [facility] gm/dL [facility] AST 19 0 - 30 [facility] unit/L [facility] ALT 22 0 - 30 [facility] unit/L [facility] Alk Phos 31 (L) 35 - 105 [facility] unit/L [facility] Total 0.3 0.2 - 1.[address] [facility] [address] Bilirubin mg/dL [facility] Bili, Direct 0.1 0.0 - 0.[address] [address] mg/dL [facility] Specimen Anatomical Collection Method Collection Time Receive d Time (Source) Location / / Volume Laterality Blood 11/15/2020 11:18 11/15/2020 AM EDT 11:24 AM EDT Resulting Agency Comment Spec In Lab Tereso Mohan MD CHEMISTRY ORDERABLES Performing Organization Address City/[facility]/ZIP Code Phon e Number [address] Valproic Acid Level, Total (11/15/2020 11:18 AM EDT) athologist Signature Valproic Lvl 62 mg/L [facility] Comment: Therapeutic Range: Anticonvulsant Therapy: ??50-100 mg/L Manic Episodes Associated with Bipolar D isorder: ??50-125 mg/L Specimen Anatomical Collection Method Collection Time Receive d Time (Source) Location / / Volume Laterality Blood 11/15/2020 11:18 11/15/2020 AM EDT 11:24 AM EDT Resulting Agency Comment Spec In Lab Tereso Mohan MD CHEMISTRY ORDERABLES Performing Organization Address City/[facility]/ZIP Code Phon e Number [address] documented in this encounter Visit Diagnoses Diagnosis Seizures Other convulsions documented in this encounter Care Teams Coremaking Supervisor Relationship Specialty Start Date End Date Comfort Urban APRN PCP - General Family Medicine 07/19/17 [facility] [place] [address] documented as of this encounter
--- OUTSIDE RECORDS SUMMARY | 2021-09-13 13:14 | XMS_ITS | Encounter Summary ---
:1985 Author Organization [facility] [place] [address] Care Team Providers Name Role Phone Comfort Urban APRN Primary Care Provider Encounter Details Date Type Department Care Team Description 09/16/2018 Refill Neurology at [facility] Charito Mosley MBBS [facility] Vinod latham [facility] [place] [address] [place] [id number] [phone] (Wo rk) Social History Tobacco Use Types [...] Telephone Encounter - Elizabeth Ledesma RN - 09/16/2018 12:[address] Mohan: Okay, please fix her prescriptions so that she would be on Topamax 200 mg twice daily and Depakote 250 mg twice daily. Patient made aware. Patient/caller in agreement and verbalized understanding of the plan. Telephone Encounter - Elizabeth Ledesma RN - 09/16/2018 10:57 AM EDT Spoke to patient. Reported that her Topamax was increased to 200 mg BID when she in [facility] ED last 09/01/18. Reported that she was feeling foggy at some point when she started this dose. But now feeling ok with the Topamax 200 mg BID. Patient wanted to know if she should continue taking this. Report forwarded to Dr. Mohan for recommendation. Telephone Encounter - Virginie Link - 09/16/2018 10:24 AM EDT Clinical Buyer Tobacco Head Message Caller: Bessie If not Pt / Relation to pt: self Call back Number: [phone] Reason for call: new prescription required for increased dosage of medication Message/information for the nurse: Per Caller, her Rx for topiramate (TOPAMAX) 100 mg Tablet has been increased to 200mg, twice daily. As such, she is requesting a new prescription be prepared and sentto her pharmacy on record. Disposition of Call ?? Red Arrow Message Reason red arrow Message: new prescription required after increased dosage documented in this encounter Plan of Treatment Not on filedocumented as of this encounter Visit Diagnoses Not on filedocumented in this encounter Care Teams Lead Janitor Relationship Specialty Start Date End Date Comfort Urban APRN PCP - General Family Medicine 07/19/17 [place] [address] documented as of this encounter
--- OUTSIDE RECORDS SUMMARY | 2021-09-13 13:14 | XMS_ITS | Encounter Summary ---
:1985 Author Organization [facility] [place] [address] Care Team Providers Name Role Phone Comfort Urban APRN Primary Care Provider Encounter Details Date Type Department Care Team Description 09/01/2018 Telephone Neurology at [facility] Jd Julien MD [facility] [place] [address] Neurology [phone] [place], [place] [phone] (Wo rk) Social History Tobacco Use Types [...] this encounter Miscellaneous Notes Telephone Encounter - Jd Julien MD - 09/01/2018 4:35 PM EDT Received a call from Dr. Mendoza at [facility] on this patient. Apparently she is been tapered from Depakote onto Topamax but is only taking 50 mg twice daily. In this setting she had a generalized tonic-clonic seizure. She is back to normal now. Apparently Depakote was causing a lot of tremor. We could increase that again, but instead I recommended increasing Topamax to 100 mg twice a day, and if tolerated after a few days or week if needed increase to 150 twice a day and then again to 200 twice a day as a goal dose. I discussed that if the patient is feeling groggy or sleepy this could be slow down if needed, or if she tolerates each increase just fine it could be increased quicker. I will copy her epilepsy doctors in case they want to get her in sooner. Jd Julien MD 09/01/2018 Edi Specialist General Neurology and Clinical Neurophysiology [facility] Department of Neurology documented in this encounter Plan of Treatment Not on filedocumented as of this encounter Visit Diagnoses Not on filedocumented in this encounter Care Teams Designer Writer Relationship Specialty Start Date End Date Comfort Urban APRN PCP - General Family Medicine 07/19/17 [place] [address] documented as of this encounter
--- OUTSIDE RECORDS SUMMARY | 2021-09-13 13:14 | XMS_ITS | Encounter Summary ---
:1985 Author Organization [facility] [place] [address] Care Team Providers Name Role Phone Comfort Urban APRN Primary Care Provider Reason for Visit Reason Comments Medication Refill Encounter Details Date Type Department Care Team Description 05/05/2020 [place]ill [place] [facility] Tereso Mohan MD [facility] [place] [address] NEUROLOGY DEPT. [phone] [place], [place] [address] (Wo rk) Social History Tobacco [...] on filedocumented in this encounter Care Teams Game Operator Relationship Specialty Start Date End Date Comfort Urban APRN PCP - General Family Medicine 07/19/17 [place] [address] documented as of this encounter
--- OUTSIDE RECORDS SUMMARY | 2021-09-13 13:14 | XMS_ITS | Encounter Summary ---
:1985 Author Organization [facility] [place] [address] Care Team Providers Name Role Phone Comfort Urban APRN Primary Care Provider Reason for Visit Reason Onset Date Comments Medication Refill Appointment 08/16/2020 Encounter Details Date Type Department Care Team Description 08/16/2020 Refill Neurology at [facility] [place]o Mohan MD [facility] [place] [address] NEUROLOGY DEPT. [phone] [place], [place] [address] (Wo rk) Social History Tobacco [...] this encounter Miscellaneous Notes Telephone Encounter - Jolynn Stern - 10/20/2020 2:13 PM EDT Patient is all set and scheduled Telephone Encounter - Elizabeth Ledesma RN - 08/16/2020 11:18 AM EDT Surescript request for : Topamax Last rx: Quantity: Refills: From last note: There is convincing evidence now that she [...] I am inclined to make no change. Last appt: 02/22/20 Next appt: Due for follow up appointment. Message sent to Epi assistant corporate secretary. documented in this encounter Plan of Treatment Not on filedocumented as of this encounter Visit Diagnoses Not on filedocumented in this encounter Care Teams Detective Homicide Squad Relationship Specialty Start Date End Date Comfort Urban APRN PCP - General Family Medicine 07/19/17 [place] [address] documented as of this encounter
--- OUTSIDE RECORDS SUMMARY | 2021-09-13 13:14 | XMS_ITS | Encounter Summary ---
:1985 Author Organization [facility] [place] [address] Care Team Providers Name Role Phone Comfort Urban DE ICER Primary Care Provider Reason for Visit Reason Onset Date Comments Appointment 10/27/2019 Encounter Details Date Type Department Care Team Description 10/27/2019 Telephone [place] [facility] [place] Mohan [place] Appoint[place] [address] NEUROLOGY DEPT. [phone] [place], [place] [address] (Wo rk) Social History Tobacco [...] this encounter Miscellaneous Notes Telephone Encounter - Xavier Mcghee - 10/27/2019 10:51 AM EDT Call Center / Application Support Manager Message - General Issue Call Provider patient sees in Clinic: Dr. Mohan Caller and relationship (if other than patient-full name): self Call back number: [phone] Ok to leave a message: yes Reason for call: Patient is calling in regards to an MRI that needed to be coordinated with a followup appointment. Please refer to 10/11 encounter. The patient has availabilities on 11/01 and 11/04 for appointments. Please call to discuss.. Disposition of Call (choose one and remove others): ??? Routine message sent to [place]: yes documented in this encounter Plan of Treatment Not on filedocumented as of this encounter Visit Diagnoses Not on filedocumented in this encounter Care Teams Carbon Paper Interleafer Relationship Specialty Start Date End Date Comfort Urban APRN PCP - General Family Medicine 07/19/17 [address] [place] [address] documented as of this encounter
--- OUTSIDE RECORDS SUMMARY | 2021-09-13 13:14 | XMS_ITS | Encounter Summary ---
:1985 Author Organization [facility] [place] [address] Care Team Providers Name Role Phone Comfort Urban APRN Primary Care Provider Encounter Details Date Type Department Care Team Description 01/26/2020 Telephone [facility] [place] [facility] [place], [place] [address] Social History Tobacco Use Types Packs/Day Years [...] this encounter Miscellaneous Notes Telephone Encounter - Dina Morales, RN - 01/26/2020 8:47 AM EST Bessie Levy :1985 Message left: I left a message on answering machine Ms. Levy at 8:48 AM regarding her upcoming Neither lumbar epidural steroid injection with Dr. Sarah Munguia MD. Message included the followin. Patient instructed to arrive at 13:45 on 01/29/20 with their vibratory pile driver. 2. Following instructions left in the message: - Bring Updated list of medications including dosage and reason for taking. - Call the Pain Clinic Nurse at for: ~Procedure instructions. ~If you are taking antibiotics. ~If you have any signs or symptoms of infection, cold or flu. ~If you have any skin breakdown (rashes, cysts, or abscess.) ~If you are taking anticoagulants / blood thinners (Plavix, Pletal, Lovenox, Coumadin, etc). ~If you had any steroid injections anywhere in your body within the last two weeks? Lionel RN documented in this encounter Plan of Treatment Not on filedocumented as of this encounter Visit Diagnoses Not on filedocumented in this encounter Care Teams Bpm Architect Relationship Specialty Start Date End Date Comfort Urban APRN PCP - General Family Medicine 07/19/17 [place] [address] documented as of this encounter
--- OUTSIDE RECORDS SUMMARY | 2021-09-13 13:14 | XMS_ITS | Encounter Summary ---
:1985 Author Organization [facility] [place] [address] Care Team Providers Name Role Phone Comfort Urban SELVIN Primary Care Provider Reason for Visit Auth/Cert Specialty Diagnoses / Procedures Referred By Contact Refer red To Contact Diagnoses Lumbar radiculopathy Procedures PRO INJECTION DX/THER SBST INTRLMNR LMBR/SAC W/IMG GDN INJECTION, EPIDURAL, LUMBAR OR SACRAL (CAUDAL), WITH IMAGING GUIDANCE (WRVU 1.8) Referral ID Status Reason Start Date Expiration Date Visits Requ ested Visits Authorized [id number] 1 1 Encounter Details Date Type Department Care Team Description 01/29/2020 Ancillary Procedure Pain Management Sa jesus Naranjo MD Pain [facility] [place] [id number] [place] [phone] Social History Tobacco Use Types Packs/Day Years [...] Associated Diagnosis Comme nts FILM LIBRARY Routine 02/02/2020 2:41 PM Pain Results f or this STORAGE ONLY PAIN EST procedure are in CLINIC C ARM the results section. documented in this encounter Results Film Library- Storage Only pain Clinic [facility] (02/02/2020 2:41 PM EST) Specimen (Source) Anatomical Location Collection Method / Collectio n Time Received Time / Laterality Volume Narrative RAD - 02/02/2020 2:41 PM EST See PACS for result report. Sarah Munguia MD [facility] FILM LIBRARY ORDERABLES Performing Organization Address City/State/ZIP Code Phon e Number [place], [place] documented in this encounter Visit Diagnoses Diagnosis Pain Generalized pain documented in this encounter Care Teams Housing Coordinator Relationship Specialty Start Date End Date Comfort Urban APRN PCP - General Family Medicine 07/19/17 [address] [place] [address] documented as of this encounter
--- OUTSIDE RECORDS SUMMARY | 2021-09-13 13:14 | XMS_ITS | Encounter Summary ---
:1985 Author Organization [facility] Address [place] [id number] Care Team Providers Name Role Phone Comfort Urban APRN Primary Care Provider Encounter Details Date Type Department Care Team Description 06/16/2018 Hospital Encounter Non-Invasive Cardiology Tereso Calles MD Seizures Lab [facility] [place]OLOGY [place] [address] [place] [address] [phone] Social History Tobacco Use Types Packs/Day Years [...] Sig Dispensed Refills Start Date End Date ARIPiprazole (ABILIFY) 2 Take 2 mg by mouth 0 05/2017 mg Tablet daily. citalopram (CELEXA) 20 mg Take 40 mg by mouth 0 1 04/06/2017 Tablet daily. FLOVENT HFA 110 Inhale 2 puffs into 0 03/21/2018 mcg/actuation HFA Aerosol the lungs 2 times Inhaler daily. UNABLE TO FIND Take by mouth as 0 needed. Med Name: CBD oil topiramate (TOPAMAX) 25 mg Take 1 tablet by 60 tablet 5 12/201807/14/2018 Tablet mouth daily. divalproex (DEPAKOTE) 500 Take 500 mg by 0 201809/03/2018 mg Tablet, Delayed Release mouth 2 times (E.C.) daily. gabapentin (NEURONTIN) 600 Take 600 mg by 0 03/3003/24/2019 mg Tablet mouth 2 times daily. hydroCHLOROthiazide Take 12.5 mg by 0 02/03/2018 04/07/2021 (MICROZIDE) 12.5 mg mouth daily. Capsule atorvastatin (LIPITOR) 20 Take 20 mg by mouth 0 0 03/05/2018 07/04/2021 mg Tablet nightly. intrauterine device by Intrauterine 0 09/16/2019 (PARAGARD) 380 square mm route Continuous IUD (Device). Expected removal date ibuprofen (ADVIL;MOTRIN) Take 800 mg by 0 03/24/2019 800 mg Tablet mouth every 6 hours as needed for Pain. documented as of this encounter Plan of Treatment Pending Results Name Type Priority Associated Diagnoses Date/Ti me Holter Monitor Cardiac Services Routine Seizures 9 1:22 PM 24hr EDT Scheduled Orders Name Type Priority Associated Diagnoses Order S chedule Holter Monitor Cardiac Services Routine Seizures 1 Occurre nces 24hr starting 2018 until 9 documented as of this encounter Visit Diagnoses Diagnosis Seizures Other convulsions documented in this encounter Care Teams Over Short And Damage Clerk Relationship Specialty Start Date End Date Comfort Urban APRN PCP - General Family Medicine 07/19/17 [place] [address] documented as of this encounter
--- OUTSIDE RECORDS SUMMARY | 2021-09-13 13:14 | XMS_ITS | Encounter Summary ---
:1985 Author Organization [facility] [place] [address] Care Team Providers Name Role Phone Comfort Urban APRN Primary Care Provider Encounter Details Date Type Department Care Team Description 10/21/2020 Ancillary Procedure Radiology Library at [facility] NEUROLOGY DEPT [place] [id number] [phone] Social History Tobacco Use Types Packs/Day Years [...] Associated Diagnosis Comme nts FILM LIBRARY Routine 10/21/2020 12:00 AM Results for this STORAGE ONLY CT EDT procedure ar e in SPINE the results section. documented in this encounter Results Film Library- Storage Only CT Spine (10/21/2020 12:00 AM EDT) Specimen (Source) Anatomical Location Collection Method / Collectio n Time Received Time / Laterality Volume Narrative RAD - 05/03/2021 12:16 PM EST This exam is auto-finalizing. It's purpo se is for storage only. Remedios Bird MD IMG FILM LIBRARY ORDERABLES Performing Organization Address City/State/ZIP Code Phon e Number RAD [place], [place] documented in this encounter Visit Diagnoses Not on filedocumented in this encounter Care Teams Electronic Transaction Implementer Relationship Specialty Start Date End Date Comfort Urban APRN PCP - General Family Medicine 07/19/17 [address] [place] [address] documented as of this encounter
--- OUTSIDE RECORDS SUMMARY | 2021-09-13 13:14 | XMS_ITS | Encounter Summary ---
:1985 Author Organization [facility] [place] [address] Care Team Providers Name Role Phone JaydonComfort king SELVIN Primary Care Provider Encounter Details Date Type Department Care Team Description 04/07/2021 Office Visit Neurology at [facility] Tereso Mohan, Seizures; [facility] Sciatica of right side; Drive [facility] [place] [address] NEUROLOGY DEPT. [phone] [place] [id number] Social History Tobacco Use Types Packs/Day Years [...] Reading Time Taken Comments Blood Pressure 127/78 04/07/2021 11:08 AM EST Pulse 87 04/07/2021 11:08 AM EST Temperature - - Respiratory Rate - - Oxygen Saturation - - Inhaled Oxygen Concentration - - Weight 68 kg (150 lb) 04/07/2021 11:08 AM EST Height 154.9 cm (5' 1) 04/07/2021 11:08 AM EST Body Mass Index 28.34 04/07/2021 11:08 AM EST documented in this encounter Patient Instructions Patient InstructionsTereso Mohan MD - 04/07/2021 11:30 AM EST It is not clear at present what is really wrong. Your seizures appear to be controlled. Numbness in your fingertips has the flavor of irritated nerves but it is unclear exactly what is irritating the nerves I would like you to get some blood test done here today. I would like to try wrist splints at night, which hold your wrist in a neutral position, and can relieve nerve irritation brought on by using your hands at work Please try some gabapentin, 1 pill 3 times a day on a regular basis, in addition to what you are taking now Please call in a week. I would in any case like to see you back in a few months. Tereso Mohan MD Professor of neurology, [employer] [facility] Department of Neurology, [address] Pager: [phone], #[phone] Email: [email or web address] documented in this encounter Progress Notes Tereso Mohan MD - 04/07/2021 11:30 AM EST Neurology clinic note Chief complaint: Epilepsy. History: [...] episode, but does say that sometimes before seizurestrente has stupid spells where she feels confused. [...] imaging: ?- MRI brain was done in 2015 was unremarkable per patient. -MRI brain: 05/10/2018- No acute intracranial abnormality ? -CT scan head- None ?? 2. EEG: ?- Routine EEG:Done at [facility] 05/05/18: Normal study. [...] that led to her being taken to [facility] emergency room. She had bitten side of her tongue quite badly, for the first time. She was discharged from there without change in me dication. She had another seizure at home and was taken to the emergency room at [facility] where she was held overnight. I [...] able to continue working full-time at the [employer]. As of 2020 she is doing quite well. She had one breakthrough convulsive seizure associated with missed doses of medication. She has had no other major medical problems. 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 She is having some mid back pain without lumbar radicular symptoms. As noted earlier she had a lumbar epidural steroid injection for symptoms of sciatica with good results. Interval History: As of 2021 the situation is somewhat problematic. She has had no seizures. She continues to have a mild tremor that is under control. He continues to have musculoskeletal pain in the neck and back. She is not describing radicular symptoms. She has a new complaint which is numbness in the fingertips of 4 fingers but not the thumb. This is bilateral and came on quite suddenly. She does not describe cervical radicular symptoms.. The new symptoms do not extend beyond the fingertips. She does not have weakness or loss of coordination. She still works at the [employer] and is quite busy with her hands.. 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 Currently working at the [employer]. ?? Family history: There is no family [...] medications for this visit. Physical Examination: BP 127/78 Pulse 87 Ht 154.9 cm (5' 1) Wt 68 kg (150 lb) BMI 28.34 kg/m?? HEENT: Unremarkable. Lungs: clear to auscultation [...] or si gns ?? Reflexes: 2+ throughout. ?Plantar response was flexor bilaterally. ?? Cerebellar: Normal [id number] with mild action tremor. ?? Gait: gait was normal. 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 EEG: Routine EEG:Done at [facility] 05/05/18: Normal study. [...] Folate, serum ??? Vitamin B1, whole blood ?? Impression and plan: There continue to [...] confirmatory as noted above. Lumbar epidural steroid injection definitely helped relieve the sciatic symptoms right. She is now having mainly midline back pain for which I think application of Seaton balm, and taking meloxicam is probably the best option. If symptoms worsen or if there is a significant radicular component, we could repeat the lumbar epidural steroid injection. 4. New symptoms of hand numbness are somewhat puzzling. This is not classical carpal tunnel syndrome, but I am going to put her in splints anyway. She does do quite a lot of work with her hands at the [employer]. Nor does she clearly have ulnar neuropathy or thoracic outlet syndrome. One has to be concerned about a cervical radiculopathy., But I would not do MRI of the cervical spine at this time. I wonder whether we are dealing with side effects of topiramate. Her blood level was quite high. I amrepeating this today. Depending on the numbers we may want to reduce the dose of topiramate somewhat. I am also putting her on a low dose of gabapentin for symptoms of peripheral neuropathy. Depending on how the situation evolves we may want to do upper extremity electrical studies. Thank you for this consultation. I will see the patient back in clinic in 1-2 months or sooner if necessary. I have asked her to callnext week. Tereso Mohan MD [place] [address] Pager #[phone] Email: [email or web address] CC: Comfort Urban APRN documented in this encounter Plan of Treatment Not on filedocumented as of this encounter Procedures Procedure Name Priority Date/Time Associated Comments Diagnosis HC LYME DISEASE, CHENCHO Routine 04/07/2021 1:10 Neuropathy Re sults for this PM EST procedure are i n the results section. HC VENIPUNCTURE Routine 04/07/2021 1:10 Seizures Results for this PM EST Neuropathy procedure are i n the results section. HC TISSUE Routine 04/07/2021 1:10 Seizures Results for this TRANSGLUTAMINASE AB PM EST Neuropathy procedur e are in the results section. HC VITAMIN D TOTAL-25 Routine 04/07/2021 1:10 Seizures Results for this HYDROXY PM EST Neuropathy procedure are i n the results section. HC PCH TOPIRAMATE Routine 04/07/2021 1:10 Neuropathy Results for this PM EST procedure are i n the results section. HC CARDIOLIPIN Routine 04/07/2021 1:10 Seizures Results for this ANTIBODIES PM EST Neuropathy procedure are i n the results section. HC ESR-SEDIMENTATION Routine 04/07/2021 1:10 Neuropathy Resu lts for this RATE, BLOOD PM EST procedure are i n the results section. HC RHEUMATOID FACTOR Routine 04/07/2021 1:10 Seizures Results for this PM EST Neuropathy procedure are i n the results section. HC PCH ANATITRE Routine 04/07/2021 1:10 Neuropathy Results f or this (ANDPATTERN) PM EST procedure are i n the results section. HC SERUM PROT. Routine 04/07/2021 1:10 Neuropathy Results fo r this ELECTROPHORESIS PM EST procedure ar e in the results section. HC PHOSPHORUS, SERUM Routine 04/07/2021 1:10 Neuropathy Resu lts for this PM EST procedure are i n the results section. HC MAGNESIUM, SERUM Routine 04/07/2021 1:10 Neuropathy Resul ts for this PM EST procedure are i n the results section. HC HEMOGLOBIN A1C Routine 04/07/2021 1:10 Seizures Results for this PM EST Neuropathy procedure are i n the results section. HC FOLATE, SERUM Routine 04/07/2021 1:10 Neuropathy Results for this PM EST procedure are i n the results section. HC CREATINE Routine 04/07/2021 1:10 Neuropathy Results for this PHOSPHOKINASE, SERUM PM EST procedu re are in the results section. HC AMMONIA, PLASMA Routine 04/07/2021 1:10 Neuropathy Result s for this PM EST procedure are i n the results section. HC VALPROIC ACID Routine 04/07/2021 1:10 Neuropathy Results for this PM EST procedure are i n the results section. HEPATIC FUNCTION PANEL Routine 04/07/2021 1:10 Neuropathy Re sults for this PM EST procedure are i n the results section. documented in this encounter Results (ABNORMAL) Vitamin B1, whole blood (04/07/2021 1:10 PM EST) athologist Signature Vit B1 Lvl WB 188 (H) 70 - 180 [facility] nmol/L [facility] Comment: ADDITIONAL INFORMATIO N This test was developed and its performa nce characteristics determined by [facility] in a manner co nsistent with CLIA requirements. This test has not been ilsa ared or approved by the U.S. Food and Drug Administration. Test Performed by: [facility] [address] [id number] Computer Terminal Operator: Tito King M.D. Ph. D.; CLIA# [id number] Specimen Anatomical Collection Method Collection Time Receive d Time (Source) Location / / Volume Laterality Blood 04/07/2021 1:10 PM 2 2:51 EST PM EST Resulting Agency Comment Spec In Lab Tereso Mohan MD CHEMISTRY ORDERABLES Performing Organization Address City/[facility]/ZIP Code Phon e Number [address] Folate, serum (04/07/2021 1:10 PM EST) P athologist Signature Folate Lvl 6.4 4.8 - 24.2 [facility] ng/mL [facility] Specimen Anatomical Collection Method Collection Time Receive d Time (Source) Location / / Volume Laterality Blood 04/07/2021 1:10 PM 2 1:18 EST PM EST Resulting Agency Comment Spec In Lab Tereso Mohan MD CHEMISTRY ORDERABLES Performing Organization Address City/[facility]/ZIP Code Phon e Number [address] (ABNORMAL) Vitamin D, 25-Hydroxy (04/07/2021 1:10 PM EST) Patholo gist Method Time Signature 25-OH Vit D 5 (L) 21 - 100 [facility] Total ng/mL [facility] 25-OH Vit D Deficient [facility] LABORATORY Specimen Anatomical Collection Method Collection Time Receive d Time (Source) Location / / Volume Laterality Blood 04/07/2021 1:10 PM 2 1:18 EST PM EST Resulting Agency Comment Spec In Lab Authorizing Provider Result Kar Mohan MD CHEMISTRY ORDERABLES Performing Organization Address City/[facility]/ZIP Code Phon e Number [address] Hemoglobin A1c (04/07/2021 1:10 PM EST) P athologist Signature Hemoglobin A1C 5.2 4.3 - 5.6 [facility] Comment: Reference Range: 4.3 - 5.6% 5.7 - 6.4% - Increased Risk of Developin g Diabetes Mellitus >= 6.5% - Consistent with diagnosis of D iabetes Mellitus In the absence of hyperglycemia (i.e. pl asma glucose > 200 mg/dL) or classic symptoms of hyperglycemia a repeat measu rement of HbA1c should be performed on a separate sample to confirm the diagnos is. Diagnosis and Classification of Diabetes Mellitus, Diabetes Care 2013; 36: Suppl. 1, S67-15 Est Avg Gluc 103 mg/dL [facility] Comment: eAG equivalents for HbA1c percentages: HbA1c(%) ?eAG(mg/dL) 6.0 ?126 6.5 ?140 7.0 ?154 7.5 ?169 8.0 ?183 8.5 ?197 9.0 ?212 9.5 ?226 10.0 ? 240 Limitations: The eAG calculation has not been validated on women, individuals below 18 years old and above 70 years old, and individuals with hemoglobinopathies. Additional resources are available on [facility] ADA website. Martin MCKEON, Fernandez J, Enio R, et al. ??Tr anslating the A1C assay into estimated average glucose values. ??Diabetes Care 2008:31(8):7906-5578. Specimen Anatomical Collection Method Collection Time Receive d Time (Source) Location / / Volume Laterality Blood 04/07/2021 1:10 PM 2 1:18 EST PM EST Resulting Agency Comment Spec In Lab Tereso Mohan MD CHEMISTRY ORDERABLES Performing Organization Address City/State/[place] [address] Rheumatoid factor, quant (04/07/2021 1:10 PM EST) P athologist Signature RF <10 <=14 IU/mL [facility] Specimen Anatomical Collection Method Collection Time Receive d Time (Source) Location / / Volume Laterality Blood 04/07/2021 1:10 PM 2 1:18 EST PM EST Resulting Agency Comment Spec In Lab Tereso Mohan MD IMMUNOLOGY ORDERABLES Performing Organization Address City/[facility]/ZIP Code Phon e Number [address] Tissue transglutaminase, IgA (04/07/2021 1:10 PM EST) P athologist Signature TTG IgA Ab 0.9 0.1 - 10.0 MARYANN CATHI u/ml [facility] Comment: Negative = <7 U/mL Equivocal = 7-10 U/mL Positive = >10 U/mL Specimen Anatomical Collection Method Collection Time Receive d Time (Source) Location / / Volume Laterality Blood 04/07/2021 1:10 PM 2 6:47 EST AM EST Resulting Agency Comment Spec In Lab Tereso Mohan MD IMMUNOLOGY ORDERABLES Performing Organization Address City/[facility]/ZIP Code Phon e Number [address] Cardiolipin Antibody Screen (04/07/2021 1:10 PM EST) athologist Signature Cardiolipin IgG 1.3 <=9.9 [facility] GPL-U/mL [facility] Comment: Please note that as of 12/22/2020 that t he test method and interpretive criteria for the cardiolipin antibody sc reen has changed. The interpretive criteria associated with the new assay n o longer includes an indeterminate range, and the threshold for positive is lower than the previous method. Cardiolipin IgM 3.9 <=9.9 MPL-U/mL [facility] Comment: Please note that as of 12/22/2020 that t he test method and interpretive criteria for the cardiolipin antibody sc reen has changed. The interpretive criteria associated with the new assay n o longer includes an indeterminate range, and the threshold for positive is lower than the previous method. Specimen Anatomical Collection Method Collection Time Receive d Time (Source) Location / / Volume Laterality Blood 04/07/2021 1:10 PM 2 6:47 EST AM EST Resulting Agency Comment Spec In Lab Tereso Mohan MD IMMUNOLOGY ORDERABLES Performing Organization Address [facility]/ZIP Code Phon e Number [address] Topiramate level (04/07/2021 1:10 PM EST) athologist Signature Topiramate Lvl 14.7 mcg/mL [facility] Comment: REFERENCE VALUE------ Reference values depend on clinical use: Anticonvulsant: 5.0-20.0 mcg/mL Psychiatric: 2.0-8.0 mcg/mL ADDITIONAL INFORMATIO N This test was developed and its performa nce characteristics determined by [facility] in a manner co nsistent with CLIA requirements. This test has not been ilsa ared or approved by the U.S. Food and Drug Administration. Test Performed by: [facility] [address] [place] [address] Computer Terminal Operator: Tito King M.D. Ph. D.; CLIA# [id number] Specimen Anatomical Collection Method Collection Time Receive d Time (Source) Location / / Volume Laterality Blood 04/07/2021 1:10 PM 2 2:42 EST PM EST Resulting Agency Comment Spec In Lab Tereso Mohan MD CHEMISTRY ORDERABLES Performing Organization Address City/[facility]/[place] [address] [facility] [address] CK (04/07/2021 1:10 PM EST) athologist Signature CK, Total 36 0 - 160 [facility] unit/L [facility] Specimen Anatomical Collection Method Collection Time Receive d Time (Source) Location / / Volume Laterality Blood 04/07/2021 1:10 PM 2 1:18 EST PM EST Resulting Agency Comment Spec In Lab Tereso Mohan MD CHEMISTRY ORDERABLES Performing Organization Address City/[facility]/ZIP Code Phon e Number MARYANN [address] Protein Electrophoresis, serum (04/07/2021 1:10 PM EST) [facility] ActiveTrak Method Time Signature Total Prot 7.6 6.1 - 8.0 MARYANN Elec g/dL [facility] Albumin Elect 4.77 3.60 - 6.00 MARYANN g/dL [facility] Alpha1-Globul 0.17 0.10 - 0.30 MARYANN in g/dL [facility] Alpha2-Globul 0.81 0.40 - 0.90 MARYANN in g/dL [facility] Beta Globulin 0.82 0.50 - 1.00 MARYANN g/dL [facility] Gamma 1.03 0.50 - 1.30 [facility] Globulin g/dL [facility] M1 Band None None MARYANN Detected Detected [facility] Specimen Anatomical Collection Method Collection Time Receive d Time (Source) Location / / Volume Laterality Blood 04/07/2021 1:10 PM 1:18 EST PM EST Resulting Agency Comment Spec In Lab Tereso Mohan MD CHEMISTRY ORDERABLES Performing Organization Address [facility] Phon e Number MARYANN [address] SAVANNAH (04/07/2021 1:10 PM EST) Component Value Ref Test Analysis Performed At [facility] ActiveTrak Range Method Time Signature Antinuclear Ab MARYANN Test ?Result ? Flag ??Unit ??RefValue CATHI [facility] Antinuclear Ab, HEp-2 ? <1:80 (Negative) ? <1:80 (Negative) HOSPITAL ??Substrate, S LABORATORY ? ADDITIONAL INFORMATION ------ ?Method: Immunofluorescence using HEp-2 cellular substr ate. ?Test Performed by: ?[facility] ?[address] [place] [address] ?Computer Terminal Operator: Tito King M.D. Ph.D.; [facility]# [id number] Specimen Anatomical Collection Method Collection Time Receive d Time (Source) Location / / Volume Laterality Blood 04/07/2021 1:10 PM 2 2:42 EST PM EST Resulting Agency Comment Spec In Lab Tereso Mohan MD IMMUNOLOGY ORDERABLES Performing Organization Address City/[facility]/ZIP Code Phon e Number [address] Phosphorus (04/07/2021 1:10 PM EST) P athologist Signature Phosphorus 3.1 2.5 - 4.5 MARYANN YARBROUGHCATHI mg/dL [facility] Specimen Anatomical Collection Method Collection Time Receive d Time (Source) Location / / Volume Laterality Blood 04/07/2021 1:10 PM 2 1:18 EST PM EST Resulting Agency Comment Spec In Lab Tereso Mohan MD CHEMISTRY ORDERABLES Performing Organization Address City/[facility]/[place] [address] Magnesium (04/07/2021 1:10 PM EST) P athologist Signature Magnesium 0.85 0.69 - 1.07 MARYANN YARBROUGHCATHI mmol/L [facility] Specimen Anatomical Collection Method Collection Time Receive d Time (Source) Location / / Volume Laterality Blood 04/07/2021 1:10 PM 2 1:18 EST PM EST Resulting Agency Comment Spec In Lab Tereso Mohan MD CHEMISTRY ORDERABLES Performing Organization Address City/[facility]/[place] [address] Sedimentation rate (04/07/2021 1:10 PM EST) P athologist Signature Sed Rate 5 2 - 37 MARYANN WINKLER mm/hr [facility] Comment: Effective February 11, 2019 new capillar y photometric technology has resulted in a change in reference ranges. It is r ecommended that each ESR result be reviewed with its own age appropriate re ference range. Specimen Anatomical Collection Method Collection Time Receive d Time (Source) Location / / Volume Laterality Blood 04/07/2021 1:10 PM 2 1:18 EST PM EST Resulting Agency Comment Spec In Lab Tereso Mohan MD HEMATOLOGY ORDERABLES Performing Organization Address City/[facility]/[place] [address] Lyme IgG & IgM Antibody (04/07/2021 1:10 PM EST) P athologist Signature Lyme Screening Neg Neg [facility] LABORATORY Specimen Anatomical Collection Method Collection Time Receive d Time (Source) Location / / Volume Laterality Blood 04/07/2021 1:10 PM 2 7:23 EST AM EST Resulting Agency Comment Spec In Lab Tereso Mohan MD IMMUNOLOGY ORDERABLES Performing Organization Address City/[facility]/[place] [address] (ABNORMAL) Hepatic Function Panel (04/07/2021 1:10 PM EST) P athologist Signature Total Protein 7.6 6.1 - 8.0 MARYANN CATHI g/dL [facility] Albumin 4.4 3.2 - 5.2 [facility] CATHI g/dL [facility] AST 15 0 - 30 [facility] CATHI unit/L [facility] ALT 16 0 - 30 [facility] CATHI unit/L [facility] Alk Phos 33 (L) 35 - 105 [facility] CATHI unit/[facility] Total 0.3 0.2 - 1.3 [facility] Bilirubin mg/dL [facility] Bili, Direct 0.1 0.0 - 0.3 [facility] mg[facility] Specimen Anatomical Collection Method Collection Time Receive d Time (Source) Location / / Volume Laterality Blood 04/07/2021 1:10 PM 2 1:18 EST PM EST Resulting Agency Comment Spec In Lab Tereso Mohan MD CHEMISTRY ORDERABLES Performing Organization Address City/[facility]/ZIP Code Phon e Number [address] Ammonia (04/07/2021 1:10 PM EST) P athologist Signature Ammonia 19 11 - 51 [facility] Specimen Anatomical Collection Method Collection Time Receive d Time (Source) Location / / Volume Laterality Blood 04/07/2021 1:10 PM 2 1:15 EST PM EST Resulting Agency Comment Spec In Lab Tereso Mohan MD CHEMISTRY ORDERABLES Performing Organization Address City/[facility]/ZIP Code Phon e Number [address] Valproic Acid Level, Total (04/07/2021 1:10 PM EST) P athologist Signature Valproic Lvl 56 mg/L [facility] Comment: Therapeutic Range: Anticonvulsant Therapy: ??50-100 mg/L Manic Episodes Associated with Bipolar D isorder: ??50-125 mg/L Specimen Anatomical Collection Method Collection Time Receive d Time (Source) Location / / Volume Laterality Blood 04/07/2021 1:10 PM 2 1:18 EST PM EST Resulting Agency Comment Spec In Lab Tereso Mohan MD CHEMISTRY ORDERABLES Performing Organization Address City/[facility]/[place] [address] documented in this encounter Visit Diagnoses Diagnosis Seizures Other convulsions Sciatica of right side Sciatica Neuropathy Mononeuritis of unspecified site documented in this encounter Care Teams Water Engineer Relationship Specialty Start Date End Date Comfort Urban APRN PCP - General Family Medicine 07/19/17 [address] [place] [address] documented as of this encounter
--- OUTSIDE RECORDS SUMMARY | 2021-09-13 13:14 | XMS_ITS | Encounter Summary ---
:1985 Author Organization [facility] [place] [address] Care Team Providers Name Role Phone Comfort Urban SELVIN Primary Care Provider Reason for Visit Auth/Cert Specialty Diagnoses / Procedures Referred By Contact Refer red To Contact Diagnoses Lumbar radiculopathy Procedures PRO INJECTION DX/THER SBST INTRLMNR LMBR/SAC W/IMG GDN INJECTION, EPIDURAL, LUMBAR OR SACRAL (CAUDAL), WITH IMAGING GUIDANCE (WRVU 1.8) Referral ID Status Reason Start Date Expiration Date Visits Requ ested Visits Authorized [id number] 1 1 Encounter Details Date Type Department Care Team Description 01/29/2020 Hospital Encounter Pain Management Sarah Munguia MD Radiculopathy of lumbar region; Marguerite Guzman [facility] Radiculopathy of lumbar region [facility] [place] [id number] [phone] Social History Tobacco Use Types Packs/Day Years [...] Sign Reading Time Taken Comments Blood Pressure 124/79 01/29/2020 2:30 PM EST Pulse - - Temperature - - Respiratory Rate 20 01/29/2020 2:30 PM EST Oxygen Saturation 100% 01/29/2020 2:30 PM EST Inhaled Oxygen Concentration - - Weight 74.8 kg (165 lb) 01/29/2020 2:07 PM EST Height 154.9 cm (5' 1) 01/29/2020 2:07 PM EST Body Mass Index 31.18 01/29/2020 2:07 PM EST documented in this encounter Discharge Instructions Discharge InstructionsDina Morales RN - 01/29/2020 2:30 PM EST Pain Management Center Discharge Instructions: You were seen today by Surgeon(s): Sarah Munguia MD Shah, Sunali, MD The following was performed: Procedure(s) (LRB): INJECTION, EPIDURAL, LUMBAR OR SACRAL (CAUDAL), WITH IMAGING GUIDANCE (WRVU 1.8) (Midline) It is normal that the injection site will be sore for up to 48 hours. [x] You may also experience mild stiffness in the joint near the injection site. You may resume your normal activities: tomorrow. You may shower today. DO NOT tub [...] off for 20 minutes.Do not apply heat today.. Attempt to empty your bladder 4-6 hours after your procedure.. You received the following medications: Medications Given During Procedure Date/Time Order Dose Route Action 01/29/2020 1429 iohexoL (Omnipaque) (240 mg/mL) injection solution 1 mL Epidural Given 01/29/2020 1429 lidocaine (pf) (Xylocaine) (10 mg/mL) 1% injection 2 mL Other Given 01/29/2020 1429 methylPREDNISolone acetate (DEPO-Medrol) (80 mg/mL) injection 80 [...] or proceed to your local emergency department. Dina Morales RN Special instructions documented in this encounter Medications [...] 0 as needed. Med Name: CBD oil MARIJUANA INHL Inhale into the 0 06/05 lungs as needed. divalproex EC (Depakote) 250 Take 1 tablet 60 tablet 5 09/201907/05/2020 mg Tablet, Delayed Release by mouth 2 [...] mouth nightly. documented as of this encounter H&P Notes Jeremías Patterson MD - 01/29/2020 2:07 PM EST Patient Name: Bessie Levy Patient Age: 34 y.o. Birthdate: 1985 Admit date: 01/29/2020 Attending Physician: Sarah Munguia MD PREPROCEDURE HISTORY AND PHYSICAL Date of Visit: January 29, 2020 Chief Complaint: Low back pain radiating to right buttock, lateral leg HPI: Subjective Bessie Levy is a 34 y.o. female who presents today for lumbar epidural steroid injection ordered by Dr Munguia (pain) The history is obtained from the patient, and I have reviewed medical records provided by the referring physician and located in the electronic medical record to fill in gaps in the patient's recollection of events, treatments and outcomes. LOCATION: Low back radiating to right leg PAIN LEVEL AT REST 4 PAST MEDICAL HISTORY: No past medical history on file. PAST SURGICAL HISTORY: No past surgical history on file. ALLERGIES: Patient has no known allergies. MEDICATIONS: No current facility-administered medications on file prior to encounter. Current Outpatient Medications on File Prior to Encounter Medication Sig Dispense Refill ??? MARIJUANA INHL Inhale into the lungs daily. ??? divalproex EC (Depakote) 250 mg Tablet, Delayed Release (E.C.) Take 1 tablet by mouth 2 times daily. 60 tablet 5 ??? ProAir HFA 90 mcg/actuation HFA Aerosol Inhaler INL 1 TO 2 PFS PO Q 4 TO 6 H PRN ??? topiramate (Topamax) 200 mg Tablet Take 1 tablet by mouth 2 times daily. 120 tablet 5 ??? MELOXICAM ORAL Take 15 mg by mouth daily. ??? ARIPiprazole (ABILIFY) 2 mg Tablet Take [...] mouth as needed. Med Name: CBD oil FAMILY HISTORY: No family history on file. SOCIAL HISTORY: Social History Socioeconomic History ??? Marital status: Spouse name: Not on file ??? Number of children: Not on file ??? Years of education: Not on file ??? Highest education level: Not on file Occupational History ??? Not on file Social Needs ??? Financial resource strain: Not on file ??? Food insecurity Worry: Not on file Inability: Not on file ??? Transportation needs Medical: Not on file Non-medical: Not on file Tobacco Use ??? Smoking status: Never Smoker ??? Smokeless tobacco: Never Used Substance and Sexual Activity ??? Alcohol use: Never Frequency: Never ??? Drug use: Yes Types: Marijuana Comment: marijuana use daily pt vapes marijuana ??? Sexual activity: Not on file Comment: deferred Lifestyle ??? Physical activity Days per week: Not on file Minutes per session: Not on file ??? Stress: Not on file Relationships ??? Social connections Talks on phone: Not on file Gets together: Not on file Attends uatsdin service: Not on file Active member of club or organization: Not on file Attends meetings of clubs or organizations: Not on file Relationship status: Not on file ??? Intimate partner violence Fear of current or ex partner: Not on file Emotionally abused: Not on file Physically abused: Not on file Forced sexual activity: Not on file Other Topics Concern ??? Not on file Social History Narrative ??? Not on file ROS: Pt denies recent fever, chills, infection, wounds, hospitalizations, ED visits, use of antibiotics. Otherwise, as described above. PHYSICAL EXAM: BP 133/79 Resp 18 Ht 154.9 cm (5' 1) Wt 74.8 kg (165 lb) SpO2 100% BMI 31.18 kg/m?? Physical Exam Constitutional: Pt oriented to person, place, and time. Appears well-developed and well-nourished. No distress. HENT: Head: Normocephalic and atraumatic. Pulmonary/Chest: Effort normal. Neurological: Alert and oriented to person, place, and time. No cranial nerve deficit. Skin: Skin is warm and dry. No rash noted. Not diaphoretic. Psychiatric: Normal mood and affect. RADIOLOGIC DATA: Relevant imaging reviewed LABS/DX RESULTS: Last 3 wbc, hgb, hct plt No results for input(s): WBC, HGB, HCT, PLATELET in the last 7068 hours. Last 3 Lytes No results for input(s): NA, K, CL, CO2, BUN, CREATININE in the last 7068 hours. Last 3 LFTs No results for input(s): AST, ALT, ALKPHOS, BILITOT, BILIDIR in the last 7068 hours. Last 3 Coags No results for input(s): PT, INR, PTT in the last 168 hours. Last 3 HgbA1C No results for input(s): HA1C in the last 7068 hours. ASSESSMENT: Assessment 1. Radiculopathy of lumbar region 2. Radiculopathy of lumbar region PLAN: Proceed with planned lumbar epidural steroid injection. Addressed all questions and concerns. Risks and benefits discussed with patient. No contraindications to the procedure at this time, will proceed. Jeremías Patterson MD Pain Management Fellow [facility] [address] [address] [email or web address] documented in this encounter Miscellaneous Notes Op Note - Sarah Munguia MD - 01/29/2020 2:10 PM EST Pain Management Operative Note Patient Name: Bessie Levy : [id number] MR#: [id number] Case Date: 01/29/2020 Surgeon: Surgeon(s) and Role: * Sarah Munguia MD - Primary * Jeremías Patterson MD - Fellow Present on Admission: ??? Radiculopathy of lumbar region Postoperative diagnosis: same Procedure(s) (LRB): INJECTION, EPIDURAL, LUMBAR OR SACRAL (CAUDAL), WITH IMAGING GUIDANCE (WRVU 1.8) (Midline) LUMBAR INTERLAMINAR EPIDURAL STERIOID INJECTION PROCEDURE NOTE Ms. Bessie Levy has been referred to the Pain Management Center for a lumbar epidural steroid injection by . The patient complains of low back pain [...] The skin entry point for entering/approaching the L4-L5 epidural spacefor the lumbar epidural steroid injection was marked. Following thorough chlorhexadine preparation of the skin and draping and 1% lidocaine infiltration of the skin entry point and subcutaneous tissues, an 18 gauge Touhy needle was placed and advanced under fluoroscopic guidance and with loss of resistance technique into the L4-L5 epidural space. Needle tip placement and depth were aided and confirmed by fluoroscopy. There was no paresthesia or return of blood or CSF through the needle. 2 cc's of Omnipaque 240 was injected (48 cc's was wasted) with clear epidural spread confirmed with fluoroscopy. 80 mg of preservative-free depomedrol and 2 cc of 1% preservative free lidocaine 1%. This was followed by 2 cc of preservative-free normal saline to flush the steroid out of the needle. There was not any unusual discomfort expressed by Ms. Levy. (48 cc of Omnipaque was wasted) Ms. Levy's vital signs were stable throughout the procedure and were as recorded in nursing records. Patient's neurological examination was unchanged postprocedure. Follow up plans and appointments were discussed with Ms. Levy. The patient is set to follow up with in 4 weeks.. Post procedure instruction was given as documented in nursing records and having met discharge criteria he was discharged from the [...] procedure. Sarah Munguia MD Pain Management Center Lead Atg Developer of Anesthesiology [facility] [address] [phone] / [facility] CC: No referring provider defined for this encounter. documented in this encounter Plan of Treatment Scheduled Orders Name Type Priority Associated Diagnoses Order S chedule INJECTION, Procedures Routine Radiculopathy of lumbar One Time for 1 EPIDURAL, LUMBAR OR region Occurren juan miguel starting SACRAL (CAUDAL), 01/29/2020 until WITH IMAGING 01/29/2020 GUIDANCE documented as of this encounter Visit Diagnoses Diagnosis Radiculopathy of lumbar region - Primary Thoracic or lumbosacral neuritis or radi culitis, unspecified documented in this encounter Admitting Diagnoses Diagnosis Radiculopathy of lumbar region Thoracic or lumbosacral neuritis or radi culitis, unspecified documented in this encounter Active and Recently Administered Medications Times are shown in EST. PRN Medication Order 01/27/2020 01/28/2020 01/29/2020 iohexoL (Omnipaque) (240 mg/mL) injection solution (CANCELED) 1428 (Given - Provider: Jeremías Patterson MD) ONCE PRN, Starting 01/29/20 at 1429, Until Sat01/29/20 at 1639, Intra- Operative (Intra-Procedure), Routine lidocaine (pf) (Xylocaine) (10 mg/mL) 1% injection (CANCELED) 1428 (Given - Provider: Jeremías Patterson MD - Comment: Epidural) ONCE PRN, Starting 01/29/20 at 1429, Until Sat01/29/20 at 1639, Intra- Operative (Intra-Procedure), Routine methylPREDNISolone acetate (DEPO-Medrol) (80 mg/mL) injection (C ANCELED) 1428 (Given - Provider: Jeremías Patterson MD) ONCE PRN, Starting Sat01/29/20 at 1429, Until Sat01/29/20 at 1639, Intra- Operative (Intra-Procedure), Routine documented in this encounter Care Teams Saddle Stitch Operator Relationship Specialty Start Date End Date Comfort Urban APRN PCP - General Family Medicine 07/19/17 [address] [place] [address] documented as of this encounter
--- OUTSIDE RECORDS SUMMARY | 2021-09-13 13:14 | XMS_ITS | Encounter Summary ---
:1985 Author Organization [facility] [place] [address] Care Team Providers Name Role Phone Comfort Urban ICT SUPPORT AND TEST ENGINEERS Primary Care Provider Reason for Visit Reason Comments Procedure Encounter Details Date Type Department Care Team Description 08/08/2018 Hospital [place] [address] Social History Tobacco Use Types Packs/Day [...] needed. Med Name: CBD oil topiramate (TOPAMAX) 100 1/2 tab (50mg) 60 tablet 5 019 09/03/2018 mg Tablet twice a day for 2 weeks then increase to 1 tab (100mg) twice a day thereafter divalproex (DEPAKOTE) 500 Take 500 mg by [...] for Pain. documented as of this encounter Procedure Notes Mike Shabazz MD - 08/08/2018 1:32 PM EDTAssociated Order(s): EEG AWAKE, ASLEEP, DROWSY Procedure(s): EEG INNC. RECORDING AWAKE AND ASLEEP, W. HYPERVENT/PHOTIC STIMU PRFM [facility] Department of Neurology Outpatient EEG Report Name of the Patient: Bessie Levy Date of : 1985 Date of Service: 08/08/2018 Referring physician: Kimberlee BRIEF HISTORY: Bessie Levy is a 32 y.o. year old patient with convulsive syncope vs seizures. MEDICATIONS: Current Outpatient Medications Medication Sig Dispense Refill ??? topiramate (TOPAMAX) 100 mg Tablet 1/2 tab (50mg) twice a day for 2 weeks then increase to 1 tab(100mg) twice a day thereafter 60 tablet 5 ??? divalproex (DEPAKOTE) 500 mg Tablet, Delayed Release (E.C.) Take 500 mg by mouth 2 times daily. 0 ??? gabapentin (NEURONTIN) 600 mg Tablet Take 600 mg by mouth 2 times daily. 0 ??? ARIPiprazole (ABILIFY) 2 mg Tablet Take [...] the lungs 2 times daily. 0 ??? intrauterine device (PARAGARD) 380 square mm IUD by Intrauterine route Continuous (Device). Expected removal date ??? UNABLE TO FIND Take by mouth as needed. Med Name: CBD oil ??? ibuprofen (ADVIL;MOTRIN) 800 mg Tablet Take 800 mg by mouth every 6 hours as needed for Pain. No current facility-administered medications for this encounter. METHODS: A 21 channel digitized electroencephalogram was performed in the [facility] Clinical Neurophysiology Laboratory. The 10/20 international system of electrode placement was used and bipolar and referential electrode montages were recorded. In addition to EEG the patient was monitored for EKG and lateral/vertical eye movements. Video was recorded during the session. The duration of the recording was 25 minutes. STARBUCKS CLERK'S REPORT: Performed by: SR Patient was not sleep deprived. Sleep was not attained. Photic stimulation was performed. Hyperventilation was performed. Effort was was adequate. Movement and other artifact was not significant. Comments: None. EEG REPORT: ELECTROENCEPHALOGRAPHER'S REPORT: Background During the awake state with the eyes closed the background consisted of a 11 Hz posterior reactive rhythm that attenuated appropriately with eye opening. Beta activity was distributed diffusely with ananterior predominance. There was a normal anterior-posterior voltage gradient. With eye opening the background activity changed to a low voltage mixture of alpha, beta, and occasional theta range frequencies. There were no significant asymmetries of background activity noted. Sleep Drowsiness was appreciated but stage II sleep was not obtained. Hyperventilation Hyperventilation resulted in diffuse slowing of the background activity without appearance of abnormal activity. Photic Stimulation Photic stimulation using a step-paul increase in photic frequency varying from 1-21 Hertz resulted in bilateral driving responses at 13, 15, 17, 19 Hertz but no appearance of abnormal activity. Abnormal Interictal EEG Activity None Clinical Events/Push-button None EKG EKG revealed normal sinus rhythm. PRIOR EE05/2018 Routine EEG: This is a normal EEG. No epileptiform discharges or clinical seizures noted. INTERPRETATION: Sharita awake EEG. CLINICAL CORRELATION: This EEG is normal during the awake states as well as during the activation procedures of hyperventilation and photic stimulation. Charly Nascimento MD PGY-4 Neurology Resident 08/11/2018 11:40 AM. I personally reviewed and interpreted the EEG in its entirety along with Dr. Charly Nascimento, neurologyreisdent, and I agree with the above interpretation as documented. Mike Shabazz MD Attending Epileptologist CC: Comfort Urban APRN documented in this encounter Plan of Treatment Not on filedocumented as of this encounter Procedures Procedure Name Priority Date/Time Associated Diagnosis Comme nts EEG INNC. RECORDING Routine 08/08/2018 1:32 PM Re sults for this AWAKE AND ASLEEP, EDT procedure are in W. HYPERVENT/PHOTIC the resu lts STIMU PRFM section. documented in this encounter Visit Diagnoses Not on filedocumented in this encounter Care Teams Supervisor Cutting Department Relationship Specialty Start Date End Date Comfort Urban APRN PCP - General Family Medicine 07/19/[address] [place] [address] documented as of this encounter
--- OUTSIDE RECORDS SUMMARY | 2021-09-13 13:14 | XMS_ITS | Encounter Summary ---
:1985 Author Organization [facility] [place] [address] Care Team Providers Name Role Phone RajniComfort SELVIN Primary Care Provider Encounter Details Date Type Department Care Team Description 02/22/2020 Office Visit Neurology at [facility] Tereso Mohan, Sciatica of right side; [facility] [place] [address] NEUROLOGY DEPT. [phone] [place], [place] [address] Social History Tobacco Use Types [...] Sign Reading Time Taken Comments Blood Pressure 130/78 02/22/2020 12:51 PM EST Pulse - - Temperature 36.5 ??C (97.7 ??F) 02/22/2020 12:51 PM EST Respiratory Rate - - Oxygen Saturation - - Inhaled Oxygen Concentration - - Weight 73.9 kg (163 lb) 02/22/2020 12:51 PM EST Height 154.9 cm (5' 1) 02/22/2020 12:51 PM EST Body Mass Index 30.8 02/22/2020 12:51 PM EST documented in this encounter Patient Instructions Patient InstructionsTereso Mohan MD - 02/22/2020 1:00 PM EST I think you are doing reasonably well. Seizures appear to be controlled. You should stay on the same medications for now. Your blood tests were all fine 9 months ago and I do not think you need any today. The pinched nerve your back seems better following the steroid injection. This can be repeated once or twice a year as needed. Please continue with physical therapy. Please call with any problems I would like to see you back in 6 months or sooner if necessary. Tereso Mohan MD Professor of neurology, [facility] Department of Neurology, [address] Pager: [phone], #[phone] Email: [email or web address] documented in this encounter Progress Notes Tereso Mohan MD - 02/22/2020 1:00 PM EST Neurology clinic note Chief complaint: Epilepsy. History: The patient is seen in follow-up today. As noted earlier, the patient is a 32 y/o right handed woman, referred by Ms. Comfort Urban APRN forevaluation of seizures and remors. The patient was born via . She had no complications after and had [...] ?? 2. EEG: ?- Routine EEG:Done at [facility] 05/05/18: Normal study. ?? 3. Epilepsy Monitoring [...] that led to her being taken to [facility] emergency room. She had bitten side of her tongue quite badly, for the first time. She was discharged from there without change in me dication. She had another seizure at home and was taken to the emergency room at [facility] where she was held overnight. I spoke with the hospitalist, and recommended some adjustment in medication with increase in the dose of Topamax, and discharge home with immediate follow-up the next day in our clinic. After being seen in our clinic here she was put back on a low dose of Depakote. ? Interval History: As of 2019 the patient is doing reasonably well. She has been seizure-free for over a year. She is tolerating the combination of Depakote and Topamax. The tremor is still present but somewhat better. I was concerned about polypharmacy with gabapentinand Celexa and Abilify and I note that she has been taken off gabapentin. She is using CBD oil or smoked marijuana for symptoms of chronic pain particularly right-sided sciatica. However he is definitely improved after a lumbar epidural steroid injection. Headaches are also doing quite well. She is able to continue working full-time at the [employer] 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 ?? Family history: There is no family history of seizures. Mother: Hypertension, Diabetes Daughter: (Agnieszka Levy) has Chiari malformation and is s/p neurological surgery. She also has absence seizures and developmental delay Review of Systems: She has gained weight. She sleeps all right. Bowel and bladder [...] medications for this visit. Physical Examination: BP 130/78 Temp 36.5 ??C (97.7 ??F) Ht 154.9 cm (5' 1) Wt 73.9 kg (163 lb) BMI 30.80 [...] ankle. Otherwise unremarkable ?? Reflexes: 2+ throughout. ?Plantar response was flexor bilaterally. ?? Cerebellar: Normal [id number] with mild action tremor. ?? Gait: gait was normal. 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 EEG: Routine EEG:Done at [facility] 05/05/18: Normal study. Blood Tests: Blood tests all unremarkable in March 2019 ??? Valproic Acid Level, Total ??? Hepatic Function Panel ??? Basic Metabolic Panel (non-fasting) ??? CBC (with Diff) ??? Ammonia ??? Topiramate level ??? TSH ??? Vitamin B12 ??? T4 Total ??? Carnitine ??? Hemogram ??? Differential, Automated ?? Impression and plan: The patient is [...] I am inclined to make no change. 2. Psychiatrically she looks like she is [...] definitely helped relieve the sciatic symptoms right. Thank you for this consultation. I will see the patient back in the epilepsy clinic in 6 months or sooner if necessary. Tereso Mohan MD [place] [address] Pager #[phone] Email: [email or web address] CC: Comfort Munguia documented in this encounter Plan of Treatment Not on filedocumented as of this encounter Visit Diagnoses Diagnosis Sciatica of right side Sciatica Seizures Other convulsions documented in this encounter Care Teams Primer Powder Blender Wet Relationship Specialty Start Date End Date Comfort Urban APRN PCP - General Family Medicine 07/19/[place] [address] documented as of this encounter
--- OUTSIDE RECORDS SUMMARY | 2021-09-13 13:14 | XMS_ITS | Encounter Summary ---
:1985 Author Organization [facility] [place] [address] Care Team Providers Name Role Phone Comfort Urban BAG SHAKER Primary Care Provider Encounter Details Date Type Department Care Team Description 01/04/2020 Notes Only Pain and Spine Erik [place] [facility] [place] [address] Social History Tobacco Use Types Packs/Day Years [...] on file documented as of this encounter Progress Notes Angelika Donald - 01/04/2020 2:01 PM EST Procedure: ILESI MRI required? yes (If yes, verify that updated MRI is in eDH) (Atlanto-Axial Joint injection, CHANTEL; 1 year or <)(Caudal GM, LESI, Thoracic GM, TFESI Lumbar & Cervical; 2 years or <) Referring Provider: DEY Are you on any blood thinners? no (If yes, specify medication type and prescribing provider for anticoagulant hold request) Medication: Prescribing provider: Anticoagulant Medication Therapy Protocol Guide for Procedures: Medication Must stop prior May resume Labs Coumadin (Warfarin) 5 days Per Prescriber 1 hour prior (<1.2) PT/INR Plavix (Clopidogrel) 7 days Per Prescriber n/a Fragmin (Dalteparin) 24 hours Per Prescriber n/a Lovenox (Enoxaparin) 24 hours Per Prescriber n/a Ticlid (Ticlopidine) 14 days Per Prescriber n/a Innohep (Tinzaparin) 24 hours Per Prescriber n/a Aggrenox (Dipyridamole) 7 days Per Prescriber n/a Pletal (Cilostazol) 2 days Per Prescriber n/a Pradaxa (Dabigretran) 5 days Per Prescriber n/a Xarelto (Rivaroxaban) 3 days 24 hours after n/a Eliquis (Apixaban) 3 days Per Prescriber n/a Inlyta (Axitinib) 24 hours 48 hours after n/a Agrylin (Anagrelide) N/a n/a Day of procedure Platelet count Effient (Prasugrel) 7 days Per Prescriber n/a Brilinta (Ticagrelor) 5 days Per Prescriber n/a Trental (Pentoxifylline) 2 days Per Prescriber n/a Aspirin (ASA, Yunior, Excedrin) 6 days Per Prescriber n/a Aggrastat (Tirofiban) 8 hours Per Prescriber n/a Angiomax (Bivalirudin) Must be discussed with provider before scheduling Per Provider Argatroban Must be discussed with provider before scheduling Per Provider Arixta (Fondaparinux) 4 days Per Prescriber n/a Effient (Prasugrel) 7 days Per Prescriber n/a Elmiron (Pentosan) 7 days Per Prescriber n/a Heparin, subq (Hemochron) 12 hours Per Prescriber n/a Integrelin (Eptifibatide) 8 hours Per Prescriber n/a Iprivask (Desirudin) Must be discussed with provider before scheduling Per Provider Normiflo (Ardeparin) 24 hours Per Prescriber n/a Persantine (Dipyridamole) 2 days Per Prescriber n/a Reopro (Abciximab) 2 days Per Prescriber n/a Are you taking any NSAIDs? yes Type of NSAID: MELOXICAM Non-Steroidal Anti-Inflammatory Drug Guidelines: Medication Other Names Recommended Discontinuation Can Resume Aspirin - 81 mg and 325 mg (Note: If recommended or prescribed by provider, contact Pain Management)ASA, Yunior, Excedrein 6 days Per Prescriber Diclofenac Voltaren 1 day 24 hours after Etodolac Lodine 2 days 24 hours after Flurbiprofen Ansaid 7 days 24 hours after Ibuprofen Advil, Motrin, Midol 1 day 24 hours after Indomethicin Indocin 2 days 24 hours after Ketorolac Toradol 1 day 24 hours after Meloxicam Mobic 4 days 24 hours after Nabumetone Relafen 6 days 24 hours after Naproxen Naprosyn, Aleve 4 days 24 hours after Oxaprozin Daypro 10 days 24 hours after Piroxicam Feldene 10 days 24 hours after Salsalate Disalcid 1 day 24 hours after Nutritional Supplements Fish Oil, Ginko Biloba, Garlic, Vitamin E, Bromelain, Nattokinase 7 days 24 hours after Currently taking any oral steroids (i.e. prednisone) or have you had a steroid injection within the past two weeks? no Are you currently taking or have you recently been treated with antibiotics? no Have you been in the ER or hospitalized recently? no If yes. Why? Do you have any allergies to anesthetics or steroids? no Are you diabetic? no (In the case of type I diabetes, steroids injections can make blood sugar spike) Is this being billed to workers comp or your regular insurance (verify insurance)? Worker's Comp no Insurance: MEDICAID [place] Completed by: ANGELIKA documented in this encounter Plan of Treatment Not on filedocumented as of this encounter Visit Diagnoses Not on filedocumented in this encounter Care Teams Volunteer Services Specialist Relationship Specialty Start Date End Date Comfort Urban APRN PCP - General Family Medicine 07/19/17 [address] [place] [address] documented as of this encounter
--- OUTSIDE RECORDS SUMMARY | 2021-09-13 13:14 | XMS_ITS | Encounter Summary ---
:1985 Author Organization [facility] [place] [address] Care Team Providers Name Role Phone Comfort Urban APRN Primary Care Provider Reason for Visit Reason Comments Follow-up Encounter Details Date Type Department Care Team Description 09/16/2019 Office Visit Neurology at [facility] Tereso Mohan MD [facility] [address] NEUROLOGY DEPT. [phone] [place], [place] [address] (Wo rk) Social History Tobacco [...] Sign Reading Time Taken Comments Blood Pressure 112/58 09/16/2019 7:54 AM EDT Pulse 58 09/16/2019 7:54 AM EDT Temperature - - Respiratory Rate - - Oxygen Saturation - - Inhaled Oxygen Concentration - - Weight 75.8 kg (167 lb) 09/16/2019 7:54 AM EDT Height 154.9 cm (5' 1) 09/16/2019 7:54 AM EDT Body Mass Index 31.55 09/16/2019 7:54 AM EDT documented in this encounter Patient Instructions Patient InstructionsTereso Mohan MD - 09/16/2019 8:00 AM EDT I think you are doing reasonably well. Seizures appear to be controlled. You should stay on the same medications for now. Your blood tests were all fine 6 months ago and I do not think you need any today. You are having some side effects of medication particularly tremor. It does not seem too bad, and I am inclined to leave things alone. I think you should also continue the Celexa and the Abilify. Those may also be contributing to some of the side effects you are having. I think you have a pinched nerve probably due to a slipped disc in her low back. There also does notseem to And I would leave it alone for now. If there is any worsening of back and leg symptoms we should do an MRI scan. Please let me know Please call with any problems I would like to see you back in 6 months or sooner if necessary. Tereso Mohan MD Professor of neurology, [facility] [employer] at [facility] Department of Neurology, [address] Pager: [phone], #[phone] Email: [email or web address] documented in this encounter Progress Notes Tereso Mohan MD - 09/16/2019 8:00 AM EDT Neurology clinic note Chief complaint: [...] ?? 2. EEG: ?- Routine EEG:Done at [facility] 05/05/18: Normal study. ?? [...] that led to her being taken to [facility] emergency room. She had bitten side of her tongue quite badly, for the first time. She was discharged from there without change in me dication. She had another seizure at home and was taken to the emergency room at [facility] where she was held overnight. [...] reasonably well. She has been seizure-free for a year. She is tolerating the combination of Depakote and Topamax. Thetremor is still present but somewhat better. I was concerned about polypharmacy with gabapentin and Celexa and Abilify and I note that she has been taken off gabapentin. She is using CBD oil for symptoms of chronic pain particularly right-sided sciatica. That is doing quite well. It is better since she has lost quite a lot of weight. She is able to continue working full-time at the [employer]. 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 ?? Family history: There is no family [...] Outpatient Medications Medication Sig Dispense Refill ??? MELOXICAM ORAL Take by mouth. Pt reports taking 20 mg a day ??? topiramate (TOPAMAX) 200 mg Tablet Take 1 tablet by mouth 2 times daily. 120 tablet 3 ??? divalproex (DEPAKOTE) 250 mg Tablet, Delayed Release (E.C.) Take 1 tablet by mouth 2 times daily. 60 tablet 11 ??? ARIPiprazole (ABILIFY) 2 mg Tablet Take [...] medications for this visit. Physical Examination: BP 112/58 Pulse 58 Ht 154.9 cm (5' 1) Wt 75.8 kg (167 lb) BMI 31.55 kg/m?? HEENT: Unremarkable. Lungs: clear to auscultation [...] is normal with reinforcing maneuvers. ?? Sensory: Normal to touch pin and vibration. ?? Reflexes: 2+ throughout. ?Plantar response was flexor bilaterally. ?? Cerebellar: Normal [id number] with mild action tremor. ?? Gait: gait was normal. Laboratory studies: 1. Brain imaging: ?- MRI brain was done in 2016 was unremarkable per patient. -MRI brain: 05/10/2018- No acute intracranial abnormality ? -CT scan head- None ?? 2. EEG: ?- Routine EEG:Done at [facility] 05/05/18: Normal study. Blood Tests: Blood tests all unremarkable in March 2019 ??? Valproic Acid Level, Total ??? Hepatic Function Panel ??? Basic Metabolic Panel (non-fasting) ??? CBC (with Diff) ??? Ammonia ??? Topiramate level ??? TSH ??? Vitamin B12 ??? T4 Total ??? Carnitine ??? Hemogram ??? Differential, Automated ?? Impression and plan: The patient is doing well. 1. There is convincing evidence now that she has epilepsy, and that she probably needs Depakote for seizure control. 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 It is reassuring that MRI is normal. She is doing well on the combination of Depakote and Topamax and Topamax has helped her to loseweight. I am inclined to make no change. 2. Psychiatrically she looks like she is doing well. It is reasonable to can keep her on Abilify andCelexa has she suffered from suicidal depression in the past. 3. She is complaining of intermittent sciatic pain and paresthesias on the right. Her exam is benignand symptoms are better. I am inclined to do nothing further at the moment, but if symptoms recur orworsen I would recommend further work-up including MRI of the lumbar spine. Thank you for this consultation. I will see the patient back in the epilepsy clinic in 6 months or sooner if necessary. Tereso Mohan MD [place] [address] Pager #[phone] Email: [email or web address] CC: Comfort Urban APRN documented in this encounter Plan of Treatment Not on filedocumented as of this encounter Visit Diagnoses Diagnosis Seizures Other convulsions documented in this encounter Care Teams Calculus Teacher Relationship Specialty Start Date End Date Comfort Urban APRN PCP - General Family Medicine 07/19/[address] [place] [address] [place] [address] documented as of this encounter
--- OUTSIDE RECORDS SUMMARY | 2021-09-13 13:14 | XMS_ITS | Encounter Summary ---
:1985 Author Organization [facility] [place] [address] Care Team Providers Name Role Phone Comfort Urban APRN Primary Care Provider Reason for Visit Reason Comments Medication Refill Encounter Details Date Type Department Care Team Description 02/09/2020 Refill Neurology at [facility] Tereso Mohan MD [facility] [place] [address] NEUROLOGY DEPT. [phone] [place], [place] [address] (Wo rk) Social History Tobacco [...] on filedocumented in this encounter Care Teams Tree Care Foreman Relationship Specialty Start Date End Date Comfort Urban APRN PCP - General Family Medicine 07/19/17 [place] [address] documented as of this encounter
--- OUTSIDE RECORDS SUMMARY | 2021-09-13 13:14 | XMS_ITS | Encounter Summary ---
:1985 Author Organization [facility] [place] [address] Care Team Providers Name Role Phone Comfort Urban PHARMACY BENEFITS COORDINATOR Primary Care Provider Reason for Referral Physical Therapy (Routine) - Specialty Diagnoses / Procedures Referred By Contact Refer red To Contact Diagnoses Radiculopathy of lumbar region Chronic pain syndrome Sarah Munguia MD [facility] [place] [address] Referral ID Status Reason Start Date Expiration Date Visits V isits Requested Authorized [id number] Evaluate and 01/04/2020 07/02/2020 12 12 Treat Reason for Visit Reason Comments Pain Management new patient Back Pain Consultation (Routine) - Closed Specialty Diagnoses / Procedures Referred By Contact Refer red To Contact Pain and Spine Center Diagnoses Sciatica of right side right L5 radiculopathy/ ?LESI/ MRI 11/29 in Tereso Garnica MD [facility] Spine [facility] NEUROLOGY DEPT. [address] [address] Phone: Fax: Referral ID Status Reason Start Expiration Visits Visits Date Date Requested Authorized [id number] Closed Pain 11/30/2019 11/29/2020 1 1 Interventional Procedure Encounter Details Date Type Department Care Team Description 01/04/2020 Office Visit Pain and Spine Center Skylar Munguia MD Radiculopathy of lumbar region; at [facility] Chronic pain syndrome [facility] [address] [facility]NAGEMENT [place], [place] [address] [phone] Social History Tobacco Use Types Packs/Day Years [...] Sign Reading Time Taken Comments Blood Pressure 126/87 01/04/2020 1:19 PM EST Pulse 66 01/04/2020 1:19 PM EST Temperature 37.1 ??C (98.7 ??F) 01/04/2020 1:19 PM EST Respiratory Rate - - Oxygen Saturation 99% 01/04/2020 1:19 PM EST Inhaled Oxygen Concentration - - Weight 74.8 kg (165 lb) 01/04/2020 1:19 PM EST Height - - Body Mass Index 31.18 11/30/2019 8:24 AM EDT documented in this encounter Progress Notes Sarah Munguia MD - 01/04/2020 1:20 PM EST [facility] Initial Consultation Note Date of visit: 01/04/20 : 1985 Consulting Physician: Tereso Mohan MD [facility] [place] [address] Reason for consultation: Low back pain-interventional evaluation Chief Complaint Patient presents with ??? Pain Management new patient ??? Back Pain History of Present Illness: Bessie Levy is a 34 y.o. female with history of depression, seizuredisorder, fibromyalgia, migraine, hypertension, GERD, anxiety, ASD s/p surgery in childhood, who presents for initial evaluation. The patient reports that her low back pain problems started insidiously3 to 4 years ago but worsened about a year ago when she started experiencing right leg pain as well.Patient last trialed physical therapy for back pain 2 years ago. Patient is under the care of Dr. Mohan, neurology for her seizure disorder who referred patient to pain clinic for potential lumbar epidural steroid injection. Patient has not trialed any injections previously. Pain location: Right more than left low back pain spreading to buttocks, right lateral thigh, right lateral calf to right ankle. 75% of pain in legs Quality and timing of pain: burning and sharpcontinuously Pain rating: intensity ranges from 3 to 6 , on a 0-10 scale. Aggravating factors include: standing and exercise Relieving factors include: lying down Denies red flags including: bowel or bladder symptoms, fever, chills, saddle anesthesia, profound motor loss, history of cancer, history of immune compromise, weight loss. Current pain treatments include: Depakote Topamax Meloxicam Abilify Pain medications are being prescribed by primary care team/neurology. Previous pain treatments included: Bessie Levy has not been seen at a pain clinic in the past. Medications: yes, gabapentin-seizures PT: yes Psychology: no Acupuncture: no manager wound care: no TENS Unit: no Injections: no Surgery: no Diagnostic Tests: MRI LUMBAR SPINE WO CONTRAST (GENERIC) 11/30/19 ?? CLINICAL HISTORY: Back pain or radiculopathy, < 6 wks, uncomplicated ? TECHNIQUE: MRI of the lumbar spine performed [...] bulging and bilateral facet arthropathy. [place] of [place] Pres[place] (BRAIN SURGEON): Today I have also reviewed the patient's history of controlled substance use. Review of Pain Questionnaire: Please see the [facility] health questionnaire, which the patient completed and reviewed with me in detail. Review of Electronic Chart: Today I have also reviewed available medical information in the patient's medical record at [facility] including relevant provider notes, laboratory work, and imaging. Past Medical History: Patient Active Problem List Diagnosis Code ??? CIS - ASD, S/P repair ??? CIS - Asthma ??? CIS - Depression ??? CIS - Entered not Verified ??? CIS - Hx CHTN ??? Seizures R56.9 No past medical history on file. Past Surgical History: No past surgical history on file. Medications: Current Outpatient Medications: ??? MARIJUANA INHL, Inhale into the lungs daily., Disp: , Rfl: ??? divalproex EC (Depakote) 250 mg Tablet, Delayed Release (E.C.), Take 1 tablet by mouth 2 times daily., Disp: 60 tablet, Rfl: 5 ??? ProAir HFA 90 mcg/actuation HFA Aerosol Inhaler, INL 1 TO 2 PFS PO Q 4 TO 6 H PRN, Disp: , Rfl: ??? topiramate (Topamax) 200 mg Tablet, Take 1 tablet by mouth 2 times daily., Disp: 120 tablet, Rfl: 5 ??? MELOXICAM ORAL, Take 15 mg by mouth daily., Disp: , Rfl: ??? ARIPiprazole (ABILIFY) 2 mg Tablet, Take 2 mg by mouth daily., Disp: , Rfl: 0 ??? citalopram (CELEXA) 20 mg Tablet, Take 20 mg by mouth daily., Disp: , Rfl: 0 ??? hydroCHLOROthiazide (MICROZIDE) 12.5 mg Capsule, Take 12.5 mg by mouth daily., Disp: , Rfl: 0 ??? atorvastatin (LIPITOR) 20 mg Tablet, Take 20 mg by mouth nightly., Disp: , Rfl: 0 ??? FLOVENT HFA 110 mcg/actuation HFA Aerosol Inhaler, Inhale 2 puffs into the lungs 2 times daily.,Disp: , Rfl: 0 ??? UNABLE TO FIND, Take by mouth as needed. Med Name: CBD oil, Disp: , Rfl: Allergies: No Known Allergies Social History: Social [...] file Gets together: Not on file Attends confucianism service: Not on file Active member of [...] Social History Narrative ??? 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 No ankle clonus. Motor - 5/5 in all planes of motion in both lower extremities. Sensation - Intact to light touch throughout lower extremities Gait/Station: Normal gait. No loss of balance noted. Transitions from exam room chair to table without difficulty. Screening tools: DIRE Score for opioid management is calculated as follows: Diagnosis = 2 Intractability = 1 Risk: Psych = 2 Chem Hlth = 1 Reliability = 2 Social = 2 Efficacy = 2 Total DIRE Score = 12 (14 or higher predicts good candidate for ongoing opioid management; 13 or lower predicts poor candidate for opioid management) Assessment: Bessie Levy is a 34 y.o. female with history of depression, seizure disorder, fibromyalgia, migraine, hypertension, GERD, anxiety, ASD s/p surgery in childhood, occasional marijuana use : #1 chronic right more than left low back pain radiating to L5 dermatome, likely related to L5 radiculopathy. MRI of lumbar spine demonstrates bilateral L4-L5 neural foraminal stenosis with mild spinal canal stenosis. Patient was educated about signs and symptoms of cauda equina syndrome including new numbness, weakness, bladder bowel incontinence or saddle anesthesia. Patient was instructed to call us or go to the emergency room if they experiences any of the symptoms. Patient verbalized understanding. #2 chronic pain syndrome with a low dire score of 12 Plan: Diagnosis reviewed, treatment option addressed, and risk/benefits discussed. Self-care instructions given. I am recommending a multidisciplinary treatment plan to help this patient better manage her pain. 1. Physical Therapy: Ordered physical therapy 2. Clinical Health Psychologist to address issues of relaxation, behavioral change, coping style, and other factors important to improvement: None at this point 3. Self Care Recommendations: Encouraged patient to be compliant to exercises taught by physical therapy 4. Diagnostic Studies: None at this point 5. Medication Management: -Continue current medication regimen as per neurology 6. Further procedures recommended: Patient will be scheduled for L4-L5 right paramedian interlaminarepidural steroid injection under fluoroscopy guidance 7. Referrals: Continue follow-up with neurology 8. Release of information: Previous records reviewed 9. Follow up: 4 weeks after the injection Sarah Munguia MD [facility] [employer] Barista of Anesthesiology [facility] [address] [address] / [facility] CC: Tereso Mohan MD [facility] [place] [address] documented in this encounter Plan of Treatment Scheduled Referrals Name Type Priority Associated Diagnoses Order S chedule Referral to Outpatient Referral Routine Radiculopathy of Orde red: Physical Therapy lumbar region 01/04/2020 Chronic pain syndrome documented as of this encounter Visit Diagnoses Diagnosis Radiculopathy of lumbar region Thoracic or lumbosacral neuritis or radi culitis, unspecified Chronic pain syndrome documented in this encounter Care Teams Electrical Inspector Relationship Specialty Start Date End Date Comfort Urban APRN PCP - General Family Medicine 07/19/[address] [place] [address] documented as of this encounter
--- OUTSIDE RECORDS SUMMARY | 2021-09-13 13:14 | XMS_ITS | Encounter Summary ---
:1985 Author Organization [facility] [place] [address] Care Team Providers Name Role Phone Comfort Urban APRN Primary Care Provider Reason for Visit Reason Onset Date Comments Appointment 04/06/2021 Encounter Details Date Type Department Care Team Description 04/06/2021 Telephone Neurology at [facility] Tereso Mohan MD Appointment [facility] [place] [address] NEUROLOGY DEPT. [phone] [place], [place] [address] (Wo rk) Social History Tobacco [...] Notes Telephone Encounter - Gabriella Farmer - 04/06/2021 2:44 PM EST Scheduling Instructions Provider: Kimberlee Visit Type (paste FERNANDA Instructions or manually enter): Urgent Follow up visit this week or next week Appt Note: Urgent fuv, [place] per [place] Additional Info Needed: Please park call to Gabriella or Jolynn documented in this encounter Plan of Treatment Not on filedocumented as of this encounter Visit Diagnoses Not on filedocumented in this encounter Care Teams Circulation Crew Leader Relationship Specialty Start Date End Date Comfort Urban APRN PCP - General Family Medicine 07/19/17 [place] [address] documented as of this encounter
--- OUTSIDE RECORDS SUMMARY | 2021-09-13 13:14 | XMS_ITS | Encounter Summary ---
:1985 Author Organization [facility] [place] [address] Care Team Providers Name Role Phone Comfort Urban APRN Primary Care Provider Reason for Visit Reason Onset Date Comments Medication Refill 05/13/2019 Encounter Details Date Type Department Care Team Description 05/13/2019 Refill Neurology at [facility] Tereso Mohan MD [facility] [place] [address] NEUROLOGY DEPT. [phone] [place], [place] [address] (Wo rk) Social History Tobacco [...] on filedocumented in this encounter Care Teams Cat Skinner Relationship Specialty Start Date End Date Comfort Urban APRN PCP - General Family Medicine 07/19/17 [place] [address] documented as of this encounter
--- OUTSIDE RECORDS SUMMARY | 2021-09-13 13:14 | XMS_ITS | Encounter Summary ---
:1985 Author Organization [facility] [place] [address] Care Team Providers Name Role Phone Comfort Urban APRN Primary Care Provider Reason for Visit Reason Comments Medication Refill Encounter Details Date Type Department Care Team Description 12/28/2020 Refill Neurology at [facility] Tereso Mohan MD [facility] [place] [address] NEUROLOGY DEPT. [phone] [place], [place] [address] (Wo rk) Social History Tobacco [...] on filedocumented in this encounter Care Teams Lithographic Photographer Relationship Specialty Start Date End Date Comfort Urban APRN PCP - General Family Medicine 07/19/17 [place] [address] documented as of this encounter
--- OUTSIDE RECORDS SUMMARY | 2021-09-13 13:14 | XMS_ITS | Encounter Summary ---
:1985 Author Organization [facility] [place] [address] Care Team Providers Name Role Phone Comfort Urban APRN Primary Care Provider Encounter Details Date Type Department Care Team Description 06/23/2018 Orders Only Neurology at [facility] Tereso Mohan MD [facility] [place] [address] NEUROLOGY DEPT. [phone] [place], [place] [address] (Wo rk) Social History Tobacco [...] Not on filedocumented as of this encounter Results Holter Monitor 24hr (07/10/2018 2:21 PM EDT) Specimen (Source) Anatomical Location Collection Method / Collectio n Time Received Time / Laterality Volume Narrative Rory Salazar MD - 07/23/2018 4:25 PM E DT This is a holter monitor report for Bessie Levy 1985 Indication: syncope Total duration of recording 24 hours The minimum heart rate is 43 bpm The maximum heart rate is 115 bpm The average heart rate is 65 bpm Bimodal heart rate histogram with peaks at 55 bpm and 75 bpm. Normal diurnal variation in heart rate is obser michael. Beats in tachycardia (>100 bpm): <1% Beats in bradycardia (<60 bpm): 42% 93,016 QRS complexes 0 PVCs 4 PACs Symptoms Patient event at 16:06: sinus rhythm at 79 bpm. Impression A) Predominant rhythm is sinus. B) Patient event occurred during normal sinus rhythm. C) No sustained arrhythmias were observe d. D) No symptomatic bradycardia or high gr paloma AV block was observed. Rory Salazar MD S Cardiac Electrophysiology 07/23/2018 4:25 PM Procedure Note Rory Salazar MD - 07/23/2018 This is a holter monitor report for Lucia Levy 1985 Indication: syncope Total duration of recording 24 hours The minimum heart rate is 43 bpm The maximum heart rate is 115 bpm The average heart rate is 65 bpm Bimodal heart rate histogram with peaks at 55 bpm and 75 bpm. Normal diurnal variation in heart rate is observed. Beats in tachycardia (>100 bpm): <1% Beats in bradycardia (<60 bpm): 42% 93,016 QRS complexes 0 PVCs 4 PACs Symptoms Patient event at 16:06: sinus rhythm at 79 bpm. Impression A) Predominant rhythm is sinus. B) Patient event occurred during normal sinus rhythm. C) No sustained arrhythmias were observe d. D) No symptomatic bradycardia or high gr paloma AV block was observed. Rory Salazar MD S Cardiac Electrophysiology 07/23/2018 4:25 PM Tereso Mohan MD CARDIAC SERVICES ORDERABLES documented in this encounter Visit Diagnoses Diagnosis Seizures Other convulsions Seizures Other convulsions documented in this encounter Care Teams Machine Operator Relationship Specialty Start Date End Date Comfort Urban APRN PCP - General Family Medicine 07/19/[address] [place] [address] documented as of this encounter
--- OUTSIDE RECORDS SUMMARY | 2021-09-13 13:14 | XMS_ITS | Encounter Summary ---
:1985 Author Organization [facility] [place] [address] Care Team Providers Name Role Phone JaydonComfort king SELVIN Primary Care Provider Encounter Details Date Type Department Care Team Description 08/18/2019 Telephone Neurology at [facility] [place] [address] Social History Tobacco Use Types Packs/Day [...] Notes Telephone Encounter - Gabriella Farmer - 08/20/2019 4:32 PM EDT Called x3, left vm. Telephone Encounter - Gabriella Farmer - 08/19/2019 9:34 AM EDT Called x2, left vm. Telephone Encounter - Gabriella Farmer - 08/18/2019 4:14 PM EDT Called x1, pt not available. Calling to reschedule current appt on 08/27 w/ Kimberlee to next available. Letter sent. documented in this encounter Plan of Treatment Not on filedocumented as of this encounter Visit Diagnoses Not on filedocumented in this encounter Care Teams Vp Sales Relationship Specialty Start Date End Date Comfort Urban APRN PCP - General Family Medicine 07/19/17 [address] [facility] [place] [address] documented as of this encounter
--- OUTSIDE RECORDS SUMMARY | 2021-09-13 13:14 | XMS_ITS | Encounter Summary ---
:1985 Author Organization [facility] [place] [address] Care Team Providers Name Role Phone Comfort Urban APRN Primary Care Provider Encounter Details Date Type Department Care Team Description 07/10/2018 Hospital Encounter Non-Invasive Cardiology Tereso Calles MD Seizures Lab Pending sale to [facility] NEUROLOGY [place] [address] [place] [address] [phone] Social History Tobacco Use Types Packs/Day Years [...] Name Priority Date/Time Associated Diagnosis Comme nts HOLTER MONITOR 24 Routine 07/10/2018 2:21 PM Seizures Resu lts for this HOUR EDT procedure are i n the results section. documented in this encounter Results Holter Monitor 24hr (07/10/2018 2:21 PM EDT) Specimen (Source) Anatomical Location Collection Method / Collectio n Time Received Time / Laterality Volume Narrative Rory Salazar MD - 07/23/2018 4:25 PM E DT This is a holter monitor report for Bessie Ventura Cam 1985 Indication: syncope Total duration of recording [...] convulsions documented in this encounter Care Teams Environmental Health Safety Engineer Relationship Specialty Start Date End Date Comfort Urban APRN PCP - General Family Medicine 07/19/17 [place] [address] documented as of this encounter
--- OUTSIDE RECORDS SUMMARY | 2021-09-13 13:14 | XMS_ITS | Encounter Summary ---
:1985 Author Organization [facility] [place] [address] Care Team Providers Name Role Phone Comfort Urban APRN Primary Care Provider Reason for Visit Reason Comments Medication Refill Encounter Details Date Type Department Care Team Description 12/28/2020 Refill Neurology at [facility] Tereso Mohan MD [facility] [place] [address] NEUROLOGY DEPT. [phone] [place], [place] [address] (Wo rk) Social History Tobacco [...] Telephone Encounter - Zohra Lane CMA - 12/28/2020 8:12 AM EDT Surescript request for : divalproex Last rx: 07/05/20 Quantity: 60 tabs Refills: 5 Last appt: 11/15/20 Next appt: Due 11/2021 documented in this encounter Plan of Treatment Not on filedocumented as of this encounter Visit Diagnoses Not on filedocumented in this encounter Care Teams Assistant Banquet Manager Relationship Specialty Start Date End Date Comfort Urban APRN PCP - General Family Medicine 07/19/17 [place] [address] documented as of this encounter
--- OUTSIDE RECORDS SUMMARY | 2021-09-13 13:14 | XMS_ITS | Encounter Summary ---
:1985 Author Organization [facility] [place] [address] Care Team Providers Name Role Phone Comfort Urban APRN Primary Care Provider Reason for Visit Reason Comments Pain Management f/u to PT Encounter Details Date Type Department Care Team Description 06/14/2020 Office Visit Pain and Spine Center Skylar Munguia MD Radiculopathy of lumbar region; at [facility] Chronic pain syndrome [facility] [address] [facility] PAIN MANAGEMENT [place] [address] [phone] Social History Tobacco Use Types Packs/Day Years [...] Sign Reading Time Taken Comments Blood Pressure 116/75 06/14/2020 8:28 AM EDT Pulse 65 06/14/2020 8:28 AM EDT Temperature 36.9 ??C (98.5 ??F) 06/14/2020 8:28 AM EDT Respiratory Rate - - Oxygen Saturation 100% 06/14/2020 8:28 AM EDT Inhaled Oxygen Concentration - - Weight 73.9 kg (163 lb) 06/14/2020 8:28 AM EDT Height - - Body Mass Index 30.8 02/22/2020 12:51 PM EST documented in this encounter Progress Notes Sarah Munguia MD - 06/14/2020 8:30 AM EDT [facility] follow-up visit note Date of visit: 06/14/20 : 1985 Chief Complaint Patient presents with ??? Pain Management f/u to PT History of Present Illness: Patient was last seen in the clinic on 03/07/2020. Since her last visit, patient reports : -Physical therapy was reordered on last visit. Patient completed physical therapy which was beneficial. She has a home exercise regimen. -Patient states that her low back pain is still not bothersome. -No other acute events or new medical problems since last visit Original subjective Bessie Levy is a 34 y.o. female [...] burning and sharpcontinuously Pain rating: intensity averages 3, on a 0-10 scale. Aggravating factors include: [...] gabapentin-seizures PT: yes Psychology: no Acupuncture: no career developer: no TENS Unit: no Injections: Patient underwent [...] bulging and bilateral facet arthropathy. Review of [place] Prescription Monitoring Program (RESOURCE MANAGEMENT SPECIALIST): Today I have also reviewed the patient's history of controlled substance use. Review of Pain Questionnaire: Please see the [facility] health questionnaire, which the patient completed and reviewed with me in detail. Review of Electronic Chart: Today I have also reviewed available medical information in the patient's medical record at [facility] including relevant provider notes, laboratory [...] Medications: ??? topiramate (Topamax) 200 mg Tablet, TAKE 1 TABLET BY MOUTH TWICE DAILY, Disp: 120 tablet, Rfl: 5 ??? MARIJUANA INHL, Inhale into the lungs daily., Disp: , Rfl: ??? divalproex EC (Depakote) 250 mg Tablet, Delayed Release (E.C.), Take 1 tablet by mouth 2 times daily., Disp: 60 tablet, Rfl: 5 ??? ProAir HFA 90 mcg/actuation HFA Aerosol Inhaler, INL 1 TO 2 PFS PO Q 4 TO 6 H PRN, Disp: , Rfl: ??? MELOXICAM ORAL, Take 15 mg by [...] Social Determinants of Health Financial Resource Strain: ??? Difficulty of Paying Living Expenses: Food Insecurity: ??? Worried About Running Out of Food in the Last Year: ??? Ran Out of Food in the Last Year: Transportation Needs: ??? Lack of Transportation (Medical): ??? Lack of Transportation (Non-Medical): Physical Activity: ??? Days of Exercise per Week: ??? Minutes of Exercise per Session: Stress: ??? Feeling of Stress : Social Connections: ??? Frequency of Communication with Friends and Family: ??? Frequency of Social Gatherings with Friends and Family: ??? Attends Mu-Ism Services: ??? Active Member of Clubs or Organizations: ??? Attends Club or Organization Meetings: ??? Marital Status: Intimate Partner Violence: ??? Fear of Current or Ex-Partner: ??? Emotionally Abused: ??? Physically Abused: ??? Sexually Abused: History of chemical dependency treatment: Uses marijuana [...] Right straight leg raise test equivocal Mild bilateral lumbar paraspinal tenderness Neurologic: carbon rod inserter - grossly intact Reflexes - 2+ and [...] as follows: Diagnosis = 2 Intractability = 2 Risk: Psych = 2 Chem Hlth = 1 Reliability = 2 Social = 2 Efficacy = 2 Total DIRE Score = 13 (14 or higher predicts good candidate for [...] stenosis with mild spinal canal stenosis. Patient has experienced at least 80% pain improvement with L4-L5 right paramedian interlaminar epidural steroid injection. Patient was educated about signs and [...] better manage her pain. 1. Physical Therapy: Completed physical therapy which was beneficial 2. Clinical Health Psychologist to address issues of relaxation, behavioral change, coping style, and other factors important to improvement: None at this point 3. Self Care Recommendations: Encouraged patient to be compliant to home exercise regimen 4. Diagnostic Studies: None at this point 5. Medication Management: -Continue current medication regimen as per neurology 6. Further procedures recommended: None at this point -Can consider repeat L4-L5 right paramedian interlaminar epidural steroid injection under fluoroscopy guidance in future based on duration of pain relief 7. Referrals: Continue follow-up with neurology 8. Release of information: Previous records reviewed 9. Follow up: As needed in future Sarah Munguia MD Pain Management Center Crabbing Machine Operator of Anesthesiology [facility] [address] [address] / [facility] CC: Comfort Urban APRN [address] [place] [address] documented in this encounter Plan of Treatment Not on filedocumented as of this encounter Visit Diagnoses Diagnosis Radiculopathy of lumbar region Thoracic or lumbosacral neuritis or radi culitis, unspecified Chronic pain syndrome documented in this encounter Care Teams Laceworker Relationship Specialty Start Date End Date Comfort Urban APRN PCP - General Family Medicine 07/19/17 [place] [address] documented as of this encounter
--- OUTSIDE RECORDS SUMMARY | 2021-09-13 13:14 | XMS_ITS | Encounter Summary ---
:1985 Author Organization [facility] [address] Care Team Providers Name Role Phone Comfort Urban APRN Primary Care Provider Reason for Visit Reason Onset Date Comments Medication Refill 07/14/2018 Encounter Details Date Type Department Care Team Description 07/14/2018 Refill Neurology at [facility] Charito [place]ley [place] [address] [place] [address] [place] [address] [phone] (Wo rk) Social History Tobacco Use Types [...] this encounter Miscellaneous Notes Telephone Encounter - Palak Howard RN - 07/22/2018 11:41 AM EDT Images from the original note were not included. Sheron Souza ?? 07/22/18 11:36 AM Note Clinical [place] Message ? Caller: Patient If not Pt / Relation to pt: Call back Number:[phone] Best time to reach caller: Anytime ? Reason for call: Topamax ?? Message/information for the nurse: Patient states she has not received her prescription yet and has been without her Topamax. ?? Disposition of Call ? [place] Message Reason red arrow Message:Patient out of medication Telephone Encounter - Palak Howard RN - 07/14/2018 4:00 PM EDT Spoke with pt Pt notes she is to be on topamax 50mg twice a day and then the week of 07/28/18 increase to 100mg twice a day Pt reports no s/e of this med Rx prepped for Dr. Mosley for topamax 100mg tab 1/2 tab twice a day for 2 weeks then 100mg twice a day there after Pt agreeable to plan Telephone Encounter - Chetna Reis - 07/14/2018 3:14 PM EDT Clinical [place] message Caller: Bessie If not Pt / Relation to pt: self Call back number: [phone] Best time to reach caller if there are questions with medication refill request: anytime Name of Med: Topamax Strength of Pills: 50 mg Dosing Directions: 2x daily 30 or 90 Day: 30 Pharmacy: [facility] in [place], [place] Last Appointment: 06/11/18 Next Appointment: Not yet scheduled Is Patient out of Medication?: Yes Pt was advised to increase to 50mg two times daily, but the pharmacy requires the new prescription. She states that in a couple weeks she'll be increasing again to 100mg two times daily. She is currently out of the medication. documented in this encounter Plan of Treatment Not on filedocumented as of this encounter Visit Diagnoses Not on filedocumented in this encounter Care Teams Smocker Relationship Specialty Start Date End Date Comfort Urban APRN PCP - General Family Medicine 07/19/17 [address] [place] [address] documented as of this encounter
--- OUTSIDE RECORDS SUMMARY | 2021-09-13 13:14 | XMS_ITS | Encounter Summary ---
:1985 Author Organization [facility] [place] [address] Care Team Providers Name Role Phone Comfort Urban APRN Primary Care Provider Reason for Visit Reason Onset Date Comments Medication Refill 12/09/2019 Encounter Details Date Type Department Care Team Description 12/09/2019 Refill Neurology at [facility] Tereso Mohan MD [facility] [place] [address] NEUROLOGY DEPT. [phone] [place], [place] [address] (Wo rk) Social History Tobacco [...] on filedocumented in this encounter Care Teams Denture Contour Wire Specialist Relationship Specialty Start Date End Date Comfort Urban APRN PCP - General Family Medicine 07/19/17 [place] [address] documented as of this encounter
--- OUTSIDE RECORDS SUMMARY | 2021-09-13 13:14 | XMS_ITS | Encounter Summary ---
:1985 Author Organization [facility] [place] [address] Care Team Providers Name Role Phone JaydonComfort king SELVIN Primary Care Provider Reason for Referral Consultation (Routine) - Closed Specialty Diagnoses / Procedures Referred By Contact Refer red To Contact Pain and Spine Center Diagnoses Sciatica of right side right L5 radiculopathy/ ?LESI/ MRI 11/29 in eDH Tereso Mohan MD [facility] C[facility] Pain And [facility] Spine DR [facility] [place] [address] [place] [address] Phone: Fax: Referral ID Status Reason Start Expiration Visits Visits Date Date Requested Authorized [id number] Closed Pain 11/30/2019 11/29/2020 1 1 Interventional Procedure Reason for Visit Reason Comments Follow-up Encounter Details Date Type Department Care Team Description 11/30/2019 Office Visit Neurology at [facility] Tereso Mohan, Sciatica of right side; [facility] [place] [address] NEUROLOGY DEPT. [phone] [place], [place] [address] Social History Tobacco Use Types [...] Sign Reading Time Taken Comments Blood Pressure 106/71 11/30/2019 8:24 AM EDT Pulse 63 11/30/2019 8:24 AM EDT Temperature - - Respiratory Rate - - Oxygen Saturation 98% 11/30/2019 8:24 AM EDT Inhaled Oxygen Concentration - - Weight 74.8 kg (165 lb) 11/30/2019 8:24 AM EDT Height 154.9 cm (5' 1) 11/30/2019 8:24 AM EDT Body Mass Index 31.18 11/30/2019 8:24 AM EDT documented in this encounter Patient Instructions Patient InstructionsTereso Mohan MD - 11/30/2019 8:30 AM EDT I think you are doing reasonably well. Seizures appear to be controlled. You should stay on the same medications for now. Your blood tests were all fine 9 months ago and I do not think you need any today. I think you have a pinched nerve probably due to arthritis in your low back. The findings are fairly clear on MRI. I recommend that you get a lumbar epidural steroid injection which is an injection in your back to try and reduce the inflammation and irritation of the nerves. Continuing with meloxicam is very reasonable. Please call with any problems I would like to see you back in 2-3 months or sooner if necessary. Tereso Mohan MD Professor of neurology, [facility] [employer] [facility] at [facility] Department of Neurology, [place] [address], [address] Pager: [phone], #[phone] Email: [email or web address] documented in this encounter Progress Notes Tereso Mohan MD - 11/30/2019 8:30 AM EDT Neurology clinic note Chief complaint: [...] ?? 2. EEG: ?- Routine EEG:Done at [facility] 05/05/18: Normal study. ?? 3. Epilepsy Monitoring [...] that led to her being taken to [facility] emergency room. She had bitten side of her tongue quite badly, for the first time. She was discharged from there without change in me dication. She had another seizure at home and was taken to the emergency room at [facility] where she was held overnight. [...] symptoms of chronic pain particularly right-sided sciatica. There is a still troublesome with pain and numbness in the right leg. Headaches are doing quite well. She is able to continue working full-time at the [employer]. 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 ?? Family history: There is no family [...] medications for this visit. Physical Examination: BP 106/71 Pulse 63 Ht 154.9 cm (5' 1) Wt 74.8 kg (165 lb) SpO2 98% BMI 31.18 kg/m?? HEENT: Unremarkable. Lungs: clear [...] response was flexor bilaterally. ?? Cerebellar: Normal [id number] with mild action tremor. ?? Gait: gait was normal. Laboratory studies: 1. Brain imaging: ?- MRI brain was done in 2016 was unremarkable per patient. -MRI brain: 05/10/2018- No acute intracranial abnormality ? -CT scan head- None -MRI lumbar spine 2019 degenerative changes most prominent at L4-5 with foraminal stenosis bilaterally worse on the right ?? 2. EEG: ?- Routine EEG:Done at [facility] 05/05/18: Normal study. Blood Tests: Blood tests [...] the past. 3. She is complaining of worsening sciatic pain and paresthesias on the right. Her exam is relatively benign, but there is some sensory loss on the medial aspect of the leg and ankle. MRI findings are confirmatory as noted above. I think we should begin with a lumbar epidural steroid injection and I am referring her for that. If he does not get better we will have to think of surgery. Thank you for this consultation. I will see the patient back in the epilepsy clinic in 3 months or sooner if necessary. Tereso Mohan MD Department of Neurology [place] [phone] Pager [phone] Email: [email or web address] CC: Comfort Urban APRN documented in this encounter Plan of Treatment Scheduled Referrals Name Type Priority Associated Order Schedule Diagnoses Referral to Pain Outpatient Referral Routine Sciatica of right Ordered: Management side 11/30/2019 documented as of this encounter Visit Diagnoses Diagnosis Sciatica of right side Sciatica Seizures Other convulsions documented in this encounter Care Teams Supervisor Painting Relationship Specialty Start Date End Date Comfort Urban APRN PCP - General Family Medicine 07/19/17 [place] [address] documented as of this encounter
--- OUTSIDE RECORDS SUMMARY | 2021-09-13 13:14 | XMS_ITS | Encounter Summary ---
:1985 [place] [address] Care Team Providers Name Role Phone JaydonComfort king SELVIN Primary Care Provider Reason for Visit Auth/Cert Specialty Diagnoses / Procedures Referred By Contact Refer red To Contact Diagnoses Lumbar radiculopathy Procedures PRO INJECTION DX/THER SBST INTRLMNR LMBR/SAC W/IMG GDN INJECTION, EPIDURAL, LUMBAR OR SACRAL (CAUDAL), WITH IMAGING GUIDANCE (WRVU 1.8) Referral ID Status Reason Start Date Expiration Date Visits Requ ested Visits Authorized [id number] 1 1 Encounter Details Date Type Department Care Team Description 01/29/2020 Surgery Pain Management Sarah Naranjo MD INJECTION, EPIDURAL, [facility] LUM BAR OR SACRAL [facility] DR (CAUDAL), WITH IMAGING [facility] PAIN MANAGEME NT GUIDANCE (WRVU 1.8) [place] [id number] [place] [id number] [phone] Social History Tobacco Use Types Packs/Day Years [...] Sign Reading Time Taken Comments Blood Pressure 133/79 01/29/2020 2:07 PM EST Pulse - - Temperature - - Respiratory Rate 18 01/29/2020 2:07 PM EST Oxygen Saturation 100% 01/29/2020 2:07 PM EST Inhaled Oxygen Concentration - - [...] Procedure Date/Time Order Dose Route Action 01/29/2020 142 iohexoL (Omnipaque) (240 mg/mL) injection solution 1 mL Epidural Given 01/29/2020 142 lidocaine (pf) (Xylocaine) (10 mg/mL) 1% injection 2 mL Other Given 01/29/2020 5695 methylPREDNISolone acetate (DEPO-Medrol) (80 mg/mL) injection 80 [...] file Gets together: Not on file Attends pentecostalism service: Not on file Active member of [...] Fellow [facility] [address] [phone] [email or web address] documented in this encounter Miscellaneous Notes Op Note - Sarah Munguia MD - 01/29/2020 2:10 PM EST Pain Management Operative Note Patient Name: Bessie Levy : [id number] MR#: [id number] Case Date: 01/29/2020 Surgeon: Surgeon(s) and Role: [...] procedure. Sarah Munguia MD [facility] [employer] [facility] [employer] [address] [address] / [facility] CC: No referring provider defined for this [...] Rate Site iohexoL (Omnipaque) (240 mg/mL) Given 01/29/2020 2:29 PM EST 1 m L injection solution ONCE PRN, Starting on Sat01/29/20 at 1429, Until Sat01/29/20 at 1639, Intra-Operative (Intra-Procedure), Routine lidocaine (pf) (Xylocaine) (10 mg/mL) 1% Given 01/29/2020 2:29 P M EST 2 mLs injection ONCE PRN, Starting on Sat01/29/20 at 1429, Until Sat01/29/20 at 1639, Intra-Operative (Intra-Procedure), Routine methylPREDNISolone acetate (DEPO-Medrol) (80 Given 0 2:29 PM EST 80 mg mg/mL) injection ONCE PRN, Starting on Sat01/29/20 at 1429, Until Sat01/29/20 at 1639, Intra-Operative (Intra-Procedure), Routine documented in this encounter Active and Recently Administered Medications Times are shown in EST. PRN Medication Order 01/27/2020 01/28/2020 01/29/2020 iohexoL (Omnipaque) (240 mg/mL) injection solution (CANCELED) 1429 (Given - Provider: Jeremías Patterson MD) ONCE PRN, Starting Sat01/29/20 at 1429, Until Sat01/29/20 at 1639, Intra- Operative (Intra-Procedure), Routine lidocaine (pf) (Xylocaine) (10 mg/mL) 1% injection (CANCELED) 142 (Given - Provider: Jeremías Patterson MD - Comment: Epidural) ONCE PRN, Starting Sat01/29/20 at 1429, Until Sat01/29/20 at 1639, Intra- Operative (Intra-Procedure), Routine methylPREDNISolone acetate (DEPO-Medrol) (80 mg/mL) injection (C ANCELED) 142 (Given - Provider: Jeremías Patterson MD) ONCE PRN, Starting Sat01/29/20 at 1429, Until Sat01/29/20 at 1639, Intra- Operative (Intra-Procedure), Routine documented in this encounter Care Teams Windrower Operator Relationship Specialty Start Date End Date Comfort Urban APRN PCP - General Family Medicine 07/19/17 [place] [address] documented as of this encounter
--- OUTSIDE RECORDS SUMMARY | 2021-09-13 13:14 | XMS_ITS | Encounter Summary ---
:1985 Author Organization [facility] [place] [address] Care Team Providers Name Role Phone Comfort Urban APRN Primary Care Provider Encounter Details Date Type Department Care Team Description 06/11/2018 Office Visit Neurology at [facility] [place] [place] Tereso Mohan MD [facility] [place] [address] [facility] Charito Avalos MBBS [facility] [place] [address] [place] [address] Social History Tobacco Use Types Packs/Day [...] Sign Reading Time Taken Comments Blood Pressure 130/84 06/11/2018 3:57 PM EDT Pulse 74 06/11/2018 3:57 PM EDT Temperature - - Respiratory Rate - - Oxygen Saturation - - Inhaled Oxygen Concentration - - Weight 94.3 kg (208 lb) 06/11/2018 3:57 PM EDT Reported Height 154.9 cm (5' 1) 06/11/2018 3:57 PM EDT Reported Body Mass Index 39.3 06/11/2018 3:57 PM EDT documented in this encounter Progress Notes Charito Mosley MBBS - 06/11/2018 4:00 PM EDT Chief complaint: Epilepsy. Reason for visit: Follow up. The patient presents alone for this visit. Brief History: ??Bessie Machado is a 32 y/o right handed female, referred by Ms. Comfort Urban APRN for evaluation of seizures and Tremors. Patient reported that she had a first seizure 4 years ago it was an unprovoked seizure which was witnessed by her and her daughter. She was taken to the ER and immediately had a second episode of generalized convulsions. She denied having any warning signs before the episode. She had an MRI brain which was normal. She states that she never had an EEG done so for. She was started on Keppra 500mg twice daily. 3 months later Keppra was discontinued because of side effects and was started on Depakote extended release 500 mg twice daily. Since then she has been on Depakote. In 2015, while on Depakote she had another episode while at work. She reported that she felt dizzy and lost consciousness but there was no shaking episode. She was sick with flulike symptoms during this time. In August 2016 she had another similar episode where she felt dizzy and passed out. This time she reported that it was witnessed by the neighbors. She reported that her heart rate was low and had CPR done before the ambulance arrived. There was no clear triggers for her seizures. It was unclear how longthe episodes lasted for. There was no tongue bite or urinary incontinence associated with these episodes. She denied having any further seizures since August 2016. She reports been compliant with her medications and denied having any side effects on Depakote ?? There is no history of memory gaps( other than one noted above), confusional spells, staring spells,oral/manual automatisms, strange smells or taste, sensation of anirudh vu, jamais vu impending doom, out of body experiences, no episodes of gastric uprising, piloerection, sweating, nor unexplained episodes of heart raising. She had no myoclonic jerks nor episodes of waking up sore /wetted/with blood inher mouth. ?? Tremors: For the past 1 year patient has been noticing tremors in her extremities and face. She states that it has been constant and progressively getting worse. Nothing makes it better or worse. Thereis no family history of tremors. She states that it has been mostly resting tremor and can be distrac tible. Interval History: Bessie, denied having any further seizures. She continues to have tremors. She had MRI brain which was unremarkable. EEG was also unremarkable. ?? Current antiepileptic medications:??Depakote 500 mg po bid ?? Previous antiepileptic medications:??Andrzej (Depression and anxiety). ?? EVENT SEMIOLOGY: Event type #1: Passing out with generalized shaking. Semiology: The patient does not remember much about the event. . No tongue bite nor bladder/bowel incontinence. Witnessed by her and daughter. Duration: Unclear Frequency: Twice Provoking factors: None Diurnal variation: None ?? Event type #2: Dizziness followed by loss of consciousness Semiology: Followed by loss of consciousnessThe patient reports having sudden onset of dizziness. Notongue bite nor bladder/bowel incontinence. No shaking episode. Duration: Unclear Frequency: Twice Provoking factors: None Diurnal variation: None ?? Risk Factors for Epilepsy:?? Born via .No complication after . and had normal development. She??did well in school. She is currently not working. There is no history of stroke, meningitisor encephalitis. There were no previous neurosurgical interventions. There is no history of febrile seizures. Had concussion at age of 13. ?? Previous work up: 1. Brain imaging: ?- MRI brain was done in 2016 was unremarkable per patient. -MRI brain: 05/10/2018- No acute intracranial abnormality ? -CT scan head- None ?? 2. EEG: ?- Routine EEG:Done at [facility] [place] [place] 05/05/18: Normal study. ?? 3. Epilepsy Monitoring Unit admissions: ?- None. ?? 4. Previous epilepsy-related neurosurgical interventions: ?- None. ? Review of Systems: 10-point review of systems was reviewed and it was negative other than what was described in the HPI. ?? Past Medical History: 1.ASD s/p repair in childhood. 2. ??Asthma. 3. ??Anxiety and depression. 4. ??Chronic lower back pain. 5. ??GERD. 6. ??History of De Quervain's disease 7. Fibromyaligia 8.Hypertension 9.Hyperlipidemia 10.Migraine ?? Past Surgical History: 1. ??Status post right carpal tunnel release 2005. 2. ??Status post right knee retinacular release 1998. 3. ??ASD repair in childhood ?? Allergies: NKDA ?? Social History: Denied smoking and occassional alcohol use. She is with a and two children. 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 ?? Family history: There is no family history of seizures. Mother: Hypertension, Diabetes Daughter: Agnieszka Levy- Chiari malformation s/p neurological surgery and absence seizures developmental delay ?? Current Medications: ?? Current Outpatient Medications: ??? divalproex (DEPAKOTE) 500 mg Tablet, Delayed Release (E.C.), Take 500 mg by mouth 2 times daily., Disp: , Rfl: 0 ??? gabapentin (NEURONTIN) 600 mg Tablet, Take 600 mg by mouth 2 times daily., Disp: , Rfl: 0 ??? ARIPiprazole (ABILIFY) 2 mg Tablet, Take [...] 2 times daily.,Disp: , Rfl: 0 ??? intrauterine device (PARAGARD) 380 square mm IUD, by Intrauterine route Continuous (Device). Expected removal date, Disp: , Rfl: ??? UNABLE TO FIND, Take by mouth as needed. Med Name: CBD oil, Disp: , Rfl: ??? ibuprofen (ADVIL;MOTRIN) 800 mg Tablet, Take 800 mg by mouth every 6 hours as needed for Pain., Disp: , Rfl: Physical Examination: Most Recent Vitals: ?? 05/05/18 1259 BP: 140/85 Pulse: 76 ? General appearance: alert Head: normocephalic, without obvious abnormality, atraumatic Neck: supple, symmetrical, trachea midline, no carotid bruit and no JVD Lungs: clear to auscultation bilaterally Heart: regular rate and rhythm, S1, S2 normal, no murmur, click, rub or gallop Abdomen: soft, non-tender; bowel sounds normal; no masses, no organomegaly Extremities: extremities warm, atraumatic, no cyanosis or edema Skin: skin color, temperature, turgor normal; no rashes or lesions ?? Neurological Examination: Mental status:. The patient's orientation, memory, attention, language and fund of knowledge were normal. Cranial nerve II: EOMI. Fundoscopic non-dilated examination - no acute abnormality noted. Cranial nerves III, IV, and : the oculomotor, trochlear and abducens nerve were intact. Cranial nerve V: facial sensation was normal to light touch and temperature. Masticatory muscle bulkand strength was normal. Cranial nerve VII: no facial nerve palsy was noted. Cranial nerve VIII: hearing was intact to finger rub??at 6 inches bilaterally. Cranial nerves IX and X: there was normal movement of the soft palate. Cranial nerve XI: shoulder shrug was intact bilaterally. Cranial nerve XII: there was no tongue deviation with protrusion. ?? Motor Strength & Tone: Strength was 5/5 in upper and lower extremities, both proximally and distally. Patient exhibits normal motor tone. Muscle bulk was normal throughout. Involuntary Movements: No involuntary movements were seen. ?? Sensory: Light touch and temperature sensation was intact throughout. ?? Reflexes: Biceps: right 2+, left 2+. Triceps: right 2+, left 2+. Brachioradialis: right 2+, left 2+. Patella: right 2+, left 2+. Ankle Jerk: right 2+, left 2+. ? Plantar response was flexor bilaterally. ?? Coordination: Coordination was normal, including finger to nose and heel-boogie testing. ?? Gait: The gait was normal. Able to perform tandem gait without any difficulty. Romberg was negative. ?? ASSESSMENT: - Problem I: Seizures: It is unclear, if the patient really has epilepsy, or whether there is some other explanation for the seizures and loss of consciousness.Given the family h/o of seizures(daughterh/o absence seizures) it is still possible that Bessie might also have genetic epilepsy. But the last 2 episodes sounds more like syncopal episodes and bouts of syncope. On exam no focal neurological deficits were noted. currently on Depakote extended release 500 mg twice daily. EEG and MRI is normal. We discussed doing a 24 hour Holter monitor to rule out arrhythmias, and pt agrees with the plan. Cardiogram was previously unremarkable ?? - Problem II:??Tremors: Started 1 year ago. Reports having constant nonrhythmic resting tremors of either arms, legs or head shaking. On exam tremors are distractible . Likely could be the side effect from Depakote. Today we discussed about tapering her off Depakote, but keeping her on antiepileptic medication for seizure protection, and also treating her headaches. For role of seizures/epilepsy, we will start her on topiramate. This will also help her with her headaches.She was advised to take 25mg po daily [id number], then 25 mg po bid x2 weeks, then 50 mg bid x2 weeks, then 100 mg bid and stay on that dose. She was given written instruction on how to taper Depakote and start Topiramate gradually. PLAN: 1. Taper Depakote slowly and Start Topiramate as instructed. 2. Routine EEG before next visit. Photic stimulation and hyperventilation should be utilized also. 3.24 holter monitor as an out patient. 4. Discussed in details seizure provoking factors: lack of sleep, missed meals, dehydration, alcohol, missed medications, among others, as well as that the patient should be aware that seizures are more likely to occur when sick. 5. Discussed in details seizure precautions: no swimming or bathing alone, no working on heights, with open fire, operating heavy machinery, or engaging in any other task that can put the patient or others in danger in case of the seizure occurrence. 6. Discussed mood issues - there is no suicidal or homicidal ideation. 7. Suggest taking vitamin D supplementation. 8. Follow up in 3 months ?? Advised the patient to call us with any questions or concerns in the meantime. ?? Thank you for involving me in care of Bessie Levy. Please feel free to contact the office with any questions or concerns. ?? Charito Mosley M.D Epilepsy Fellow Epilepsy pager [phone] Personal pager [phone] Neurology Attending I saw and evaluated the patient with the neurology team. I have reviewed the resident's history during the visit and I agree with the details as written. My physical examination confirms the resident'sfindings. The assessment and plan were formulated in discussion with me at the time of the visit Randy agree with them as documented. Major issues addressed and plan: History: Patient with history of spells that could represent convulsive syncope but may also represent epilepsy. Her daughter has what is probably a genetic form of epilepsy. Exam: Exam is noteworthy for a bilateral tremor probably related to use of Depakote. Otherwise nonfocal Data: Normal MRI and EEG in the past Impression and plan: It is probable that the patient has epilepsy, but I am not sure of this. The spells she has had could be syncope and convulsive syncope. She may have syncope associated with migraine. I am concerned given her history of heart surgery that she could have cardiac arrhythmias. We will obtain a Holter monitor. Her echocardiogram was previously unremarkable. I think we should treat her with topiramate for seizure protection and also for migraine prophylaxis. It may also help with weight loss. Tereso Mohan MD Department of Neurology [place] [phone] Pager #[phone] Email: [email or web address] [email or web address] documented in this encounter Plan of Treatment Pending Results Name Type Priority Associated Diagnoses Date/Ti me Holter Monitor Cardiac Services Routine Seizures 9 1:22 PM 24hr EDT Scheduled Orders Name Type Priority Associated Diagnoses Order S chedule Holter Monitor 24hr Cardiac Services Routine Seizures Expe cted: 06/18/2018, Expires: 2018 documented as of this encounter Results EEG INNC. RECORDING AWAKE AND ASLEEP, W. HYPERVENT/PHOTIC STIMU PRFM (08/08/2018 1:32 PM EDT) Narrative Mike Shabazz MD - 08/08/2018 1:32 P M EDT Mike Shabazz MD ? 08/12/2018 ??6:40 AM [facility] Department of Neurology Outpatient EEG Report Name of the Patient: ??Bessie Levy Date of : ?1985 Date of Service: ?08/08/2018 Referring physician: ?Kimberlee BRIEF HISTORY: Bessie Levy is a 32 y.o. year old p atient with convulsive syncope vs seizures. MEDICATIONS: Current Outpatient Medications Medication Sig Dispense Refill ? ? topiramate (TOPAMAX) 100 mg Tablet 1/2 tab (50mg) twice a day for 2 weeks then increase to 1 tab (100m g) twice a day thereafter 60 tablet 5 ? ? divalproex (DEPAKOTE) 500 mg Tablet, Delayed Release (E.C.) Take 500 mg by mouth 2 times daily. ??0 ? ? gabapentin (NEURONTIN) 600 mg Tablet Take 600 mg by mouth 2 times daily. ??0 ? ? ARIPiprazole (ABILIFY) 2 mg Tablet Take 2 mg by mouth daily. ??0 ? ? citalopram (CELEXA) 20 mg Tablet Take 20 mg by mouth daily. ??0 ? ? hydroCHLOROthiazide (MICROZIDE) 12.5 mg Capsule Take 12.5 mg by mouth daily. ??0 ? ? atorvastatin (LIPITOR) 20 mg Tablet Take 20 mg by mouth nightly. ??0 ? ? FLOVENT HFA 110 mcg/actuation HFA Aerosol Inhaler Inhale 2 puffs into the lungs 2 times daily. ??0 ? ? intrauterine device (PARAGARD) 380 square mm IUD by Intrauterine route Continuous (Device). Expected removal date ? UNABLE TO FIND Take ??by mouth as needed. Med Name: CBD oil ? ibuprofen (ADVIL;MOTRIN) 800 mg Tablet Take 800 mg by mouth every 6 hours as needed for Pain. ?? No current facility-administered medicat ions for this encounter. ?? METHODS: A 21 channel digitized electroencephalog yarely was performed in the [facility] Clinical Neurophysiology [facility]. The 10/20 international system of electrode placement was used and bipolar and referential electrode montag es were recorded. ??In addition to EEG the patient was monitore d for EKG and lateral/vertical eye movements. Video wa s recorded during the session. The duration of the recording w as 25 minutes. FIBERGLASS BOAT FINISHER'S REPORT:Performed by: SR Patient was not sleep deprived. Sleep was not attained. Photic stimulation was performed. Hyperventilation was performed. Effort w as was adequate. Movement and other artifact was not sign ificant. Comments: ??None. EEG REPORT: ELECTROENCEPHALOGRAPHER'S REPORT: Background During the awake state with the eyes tyshawn sed the background consisted of a 11 Hz posterior reactive rhythm that attenuated appropriately with eye opening. Beta act ivity was distributed diffusely with an anterior predominance. There was a normal anterior-posterior voltage gradient. Wit h eye opening the background activity changed to a low vol tage mixture of alpha, beta, and occasional theta range frequen cies. There were no significant asymmetries of background ac tivity noted. Sleep Drowsiness was appreciated but stage II sleep was not obtained. Hyperventilation Hyperventilation resulted in diffuse slo wing of the background activity without appearance of abnormal activity. Photic Stimulation Photic stimulation using a step-paul inc rease in photic frequency varying from 1-[address] in bilateral [address] malaika responses at 13, 15, 17, 19 Hertz but no appearance of abnormal activity. Abnormal Interictal EEG Activity None Clinical Events/Push-button None EKG EKG revealed normal sinus rhythm. PRIOR EE05/2018 Routine EEG: This is a normal EEG . No epileptiform discharges or clinical seizures noted. INTERPRETATION: Sharita awake EEG. CLINICAL CORRELATION: This EEG is normal during the awake ??st ates as well as during the activation procedures of hyperventilatio n and photic stimulation. Charly Nascimento MD PGY-4 Neurology Resident 08/11/2018 11:40 AM. I personally reviewed and interpreted th e EEG in its entirety along with Dr. Charly Nascimento, neurology [facility], and I agree with the above interpretation as documented. Mike Shabazz MD Attending Epileptologist CC: Comfort Urban APRN Tereso Mohan MD NEUROLOGY ORDERABLES documented in this encounter Visit Diagnoses Diagnosis Seizures Other convulsions documented in this encounter Care Teams Title I Teacher Relationship Specialty Start Date End Date Comfort Urban APRN PCP - General Family Medicine 07/19/17 [place] [address] documented as of this encounter
--- OUTSIDE RECORDS SUMMARY | 2021-09-13 13:14 | XMS_ITS | Encounter Summary ---
:1985 Author Organization [facility] [place] [address] Care Team Providers Name Role Phone Comfort Urban APRN Primary Care Provider Encounter Details Date Type Department Care Team Description 05/02/2021 Telephone Neurology at [facility] [place] Tereso Mohan MD [facility] [place] [address] NEUROLOGY DEPT. [phone] [place], [place] [address] (Wo rk) Social History Tobacco [...] Telephone Encounter - Elizabeth Ledesma RN - 05/02/2021 3:22 PM EST Call placed to patient. LVM. Advised to [facility] to schedule a follow up appointment and possible steroid injection. Advised to call back for any other concerns. Telephone Encounter - Palak Howard RN - 05/02/2021 10:12 AM EST Copied from [facility] #[id number]. Topic: Specialty Dept CRMs - Generic Call >> May 02, 2021 9:51 AM Mae Dyer wrote: Specialist:Tereso Mohan MD Reason for Call: Patient called stating she wanted to update Tereso Mohan MD on her fingers. Patient stated she was not able to go to ortho and get wrist split because they were closed after her appointment. Patient stated she has been taking her medication and it has gotten a little better but not much. Pateitn stated she is alos having trouble with her back and was unsure if she should reach out t rodolfo Rodriguez or speak with Tereso Mohan MD in regards to having a new referral sent to [facility]. Patient stated she was seen at [facility] Sp[facility] about a year ago for a steroid shot and thinks she may need to repeat it. Please call patient to discuss. documented in this encounter Plan of Treatment Not on filedocumented as of this encounter Visit Diagnoses Not on filedocumented in this encounter Care Teams [employer] Certified Network Associate Relationship Specialty Start Date End Date Comfort Urban APRN PCP - General Family Medicine 07/19/17 [place] [address] documented as of this encounter
--- OUTSIDE RECORDS SUMMARY | 2021-09-13 13:14 | XMS_ITS | Encounter Summary ---
:1985 Author Organization [facility] Address [facility] [place] [address] Care Team Providers Name Role Phone Comfort Urban SELVIN Primary Care Provider Reason for Referral Physical Therapy (Routine) - Specialty Diagnoses / Procedures Referred By Contact Refer red To Contact Diagnoses Radiculopathy of lumbar region Sarah Munguia MD [facility] Vinod Bishop PAIN MANAGEMENT [place] [id number] Referral ID Status Reason Start Date Expiration Date Visits V isits Requested Authorized [id number] Evaluate and 03/07/2020 09/03/2020 12 12 Treat Reason for Visit Reason Comments Pain Management f/u s/p LESI Encounter Details Date Type Department Care Team Description 03/07/2020 Office Visit [facility] Skylar Munguia MD Radiculopathy of lumbar region; at [facility] Chronic pain syndrome [facility] [address] [facility] PAIN MANAGEMENT [place] [id number] [phone] Social History Tobacco Use Types Packs/Day Years [...] Sign Reading Time Taken Comments Blood Pressure 119/73 03/07/2020 9:54 AM EST Pulse 57 03/07/2020 9:54 AM EST Temperature 37.1 ??C (98.7 ??F) 03/07/2020 9:54 AM EST Respiratory Rate - - Oxygen Saturation 99% 03/07/2020 9:54 AM EST Inhaled Oxygen Concentration - - Weight 73.9 kg (163 lb) 03/07/2020 9:54 AM EST Height - - Body Mass Index 30.8 02/22/2020 12:51 PM EST documented in this encounter Progress Notes Sarah Munguia MD - 03/07/2020 10:00 AM EST [facility] follow-up visit note Date of visit: 03/07/20 : 1985 Chief Complaint Patient presents with ??? Pain Management f/u s/p LESI History of Present Illness: Patient was last seen in the clinic on 01/04/2020. Since her last visit, patient reports : -Patient underwent L4-L5 right paramedian interlaminar epidural steroid injection on 01/29/2020. Patient reports at least 80% overall pain improvement and 98% leg pain improvement with that injection. -Physical therapy was ordered on last visit. Patient has done some physical therapy at [facility] which has been beneficial. Patient is interested in more physical therapy and is requesting another referral. -Patient is accompanied to the clinic by her daughter. -Patient states that her pain is manageable at this point -No other acute events or new medical [...] burning and sharpcontinuously Pain rating: intensity averages 4, on a 0-10 scale. Aggravating factors include: [...] gabapentin-seizures PT: yes Psychology: no Acupuncture: no child care team lead: no TENS Unit: no Injections: no Surgery: [...] bulging and bilateral facet arthropathy. Review of [place] Prescription Monitoring Program (CLAMSHELL ENGINEER): Today I have also reviewed the patient's history of controlled substance use. Review of Pain Questionnaire: Please see the [facility] health questionnaire, which the patient completed and reviewed with me in detail. Review of Electronic Chart: Today I have also reviewed available medical information in the patient's medical record at [facility] including relevant provider notes, laboratory work, and imaging. Past Medical History: Patient Active Problem List Diagnosis Code ??? CIS - ASD, S/P repair ??? CIS - Asthma ??? CIS - Depression ??? CIS - Entered not Verified ??? CIS - Hx CHTN ??? Seizures R56.9 ??? Radiculopathy of lumbar region M54.16 No past medical history on file. 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 1. Physical Therapy: Reordered physical therapy as per patient's request. Physical therapy has been beneficial. 2. Clinical Health Psychologist to address issues [...] information: Previous records reviewed 9. Follow up: In 3 months after completion of physical therapy Sarah Munguia MD [facility] Cell Room Supervisor of Anesthesiology [facility] [employer] [address] [phone] / [facility] CC: Tereso Mohan MD [facility] [place] [address] documented in this encounter Plan of Treatment Scheduled Referrals Name Type Priority Associated Diagnoses Order S chedule Referral to Outpatient Referral Routine Radiculopathy of Orde red: Physical Therapy lumbar region 03/07/2020 documented as of this encounter Visit Diagnoses Diagnosis Radiculopathy of lumbar region Thoracic or lumbosacral neuritis or radi culitis, unspecified Chronic pain syndrome documented in this encounter Care Teams Heat Pump Installer Relationship Specialty Start Date End Date Comfort Urban APRN PCP - General Family Medicine 07/19/17 [place] [address] documented as of this encounter
--- OUTSIDE RECORDS SUMMARY | 2021-09-13 13:14 | XMS_ITS | Encounter Summary ---
:1985 Author Organization [facility] [place] [address] Care Team Providers Name Role Phone Comfort Urban APRN Primary Care Provider Encounter Details Date Type Department Care Team Description 05/03/2021 Ancillary Procedure Radiology Library at [facility] [place]UROLOGY DEPT [place] [phone] Social History Tobacco Use Types Packs/Day Years [...] Associated Diagnosis Comme nts FILM LIBRARY Routine 05/03/2021 12:16 PM Results for this STORAGE ONLY CT EST procedure ar e in HEAD the results section. documented in this encounter Results Film Library- Storage Only CT Head (05/03/2021 12:16 PM EST) Specimen (Source) Anatomical Location Collection Method / Collectio n Time Received Time / Laterality Volume Narrative RAD - 05/03/2021 12:16 PM EST This exam is auto-finalizing. It's purpo se is for storage only. Remedios Bird MD IMG FILM LIBRARY ORDERABLES Performing Organization Address City/State/ZIP Code Phon e Number RAD [place], [place] documented in this encounter Visit Diagnoses Not on filedocumented in this encounter Care Teams Corporate Development Analyst Relationship Specialty Start Date End Date Comfort Urban APRN PCP - General Family Medicine 07/19/17 [address] [place] [address] documented as of this encounter
--- OUTSIDE RECORDS SUMMARY | 2021-09-13 13:14 | XMS_ITS | Encounter Summary ---
:1985 Author Organization [place] [address] Care Team Providers Name Role Phone JaydonComfort king SELVIN Primary Care Provider Reason for Visit Reason Onset Date Comments Numbness 04/06/2021 Encounter Details Date Type Department Care Team Description 04/06/2021 Telephone Neurology at [facility] eTreso Mohan [place] [address] NEUROLOGY DEPT. [phone] [place], [place] [address] (Wo rk) Social History Tobacco [...] Telephone Encounter - Elizabeth Ledesma RN - 04/06/2021 1:[address] Mohan: . ??She could be seen as early as this afternoon, or tomorrow ??at 11.30 or 2, or next week. Message forwarded to Epi clerk secretary to facilitate with scheduling. Telephone Encounter - Elizabeth Ledesma RN - 04/06/2021 12:19 PM EST [place] - 11/15/20 [place] - Spoke to patient. Reports that 4 days ago, she started having tingling and numbness on her both hands. It's primary located at the top of her 4 fingers except her thumb. Reports that it seems that her fingers are all glued together. Reports that this is the first time that she has this numbness and t ingling. No other neurological symptoms except for a migraine that happened last Saturday which eventually resolved after rest and cold compress. Reports that she tried moving her fingers, cold compress, hot packs but with no relief. Denies any recent seizures. Denies any missed dose of AEDs. Sleeping - ok Eating - ok Recent Illness (cough/ cold/ fever/ signs of infection) - none New Stressor - yes - divorce Outpatient Medications Marked as Taking for the 04/06/21 encounter (Telephone) with Tereso Mohan MD Medication Sig Dispense Refill ??? divalproex EC (Depakote) 250 mg Tablet, Delayed Release (E.C.) TAKE 1 TABLET BY MOUTH TWICE DAILY 190 tablet 1 ??? topiramate (Topamax) 200 mg Tablet Take 1 tablet by mouth 2 times daily. 180 tablet [address] Mohan for review and comment. Pt/caller aware they will be called back with input when available and to call back in the interim if additional questions or change arise beforethey hear back from this office. Pt/caller agreeable to this plan. Telephone Encounter - Karyn Trammell - 04/06/2021 11:50 AM EST Call Center / [place] Message - Numbness and / or Tingling Provider patient sees in Clinic: Dr Tereso Mohan Clinical Retail Support Manager Call Caller and relationship (if other than patient-full name): Patient Call Back Number: [phone] Ok to leave a message: yes Reason for call: Numbness/Tingling Is this symptom still present: yes Where is the numbness/tingling occurring: both hands, fingers. Pain in neck and pain in palms of hands What are the current concerns: could be pinched nerve or fibromyalgia Additional information for the nurse: wants to know if she should come in for appointment. states itfeels like fingers are superglued together Disposition of Call: ??? [place] message to the nurse documented in this encounter Plan of Treatment Not on filedocumented as of this encounter Visit Diagnoses Not on filedocumented in this encounter Care Teams Dedicated Owner Operator Relationship Specialty Start Date End Date Comfort Urban APRN PCP - General Family Medicine 07/19/17 [place] [address] documented as of this encounter
--- OUTSIDE RECORDS SUMMARY | 2021-09-13 13:14 | XMS_ITS | Encounter Summary ---
:1985 Author Organization [facility] [place] [place] [address] Care Team Providers Name Role Phone Comofrt Urban APRN Primary Care Provider Reason for Visit Reason Onset Date Comments Medication Refill 07/05/2020 Encounter Details Date Type Department Care Team Description 07/05/2020 Refill Neurology at [facility] Tereso Mohan MD [facility] [place] [address] NEUROLOGY DEPT. [phone] [place], [place] [address] (Wo rk) Social History Tobacco [...] on filedocumented in this encounter Care Teams Equal Opportunity Representative Relationship Specialty Start Date End Date Comfort Urban APRN PCP - General Family Medicine 07/19/17 [place] [address] (work) documented as of this encounter
--- OUTSIDE RECORDS SUMMARY | 2021-09-13 13:14 | XMS_ITS | Encounter Summary ---
:1985 Author Organization [facility] [place] [address] Care Team Providers Name Role Phone Comfort Urban APRN Primary Care Provider Reason for Visit Reason Onset Date Comments Medication Refill 08/15/2020 Encounter Details Date Type Department Care Team Description 08/15/2020 Refill Neurology at [facility] Tereso Mohan MD [facility] [place] [address] NEUROLOGY DEPT. [phone] [place], [place] [address] (Wo rk) Social History Tobacco [...] on filedocumented in this encounter Care Teams Feed Mill Tender Relationship Specialty Start Date End Date Comfort Urban APRN PCP - General Family Medicine 07/19/17 [place] [address] (work) documented as of this encounter
--- OUTSIDE RECORDS SUMMARY | 2021-09-13 13:14 | XMS_ITS | Encounter Summary ---
:1985 Author Organization [facility] [place] [address] Care Team Providers Name Role Phone Comfort Urban APRN Primary Care Provider Encounter Details Date Type Department Care Team Description 03/24/2019 Office Visit Neurology at [facility] Tereso Mohan MD [facility] [place] [address] NEUROLOGY DEPT. [phone] [place], [place] [address] (Wo rk) Social History Tobacco [...] Sign Reading Time Taken Comments Blood Pressure 97/79 03/24/2019 5:23 PM EST Pulse 70 03/24/2019 5:23 PM EST Temperature - - Respiratory Rate - - Oxygen Saturation - - Inhaled Oxygen Concentration - - Weight 75.2 kg (165 lb 12.8 oz) 03/24/2019 5:23 PM EST reported Height 154.9 cm (5' 1) 03/24/2019 5:23 PM EST Body Mass Index 31.33 03/24/2019 5:23 PM EST documented in this encounter Patient Instructions Patient InstructionsTereso Mohan MD - 03/24/2019 5:00 PM EST I think you are doing reasonably well. Seizures appear to be controlled. You should stay on the same medications for now. Please get blood test done here today, and on the basis of the numbers we may want to adjust doses You are having some side effects of medication particularly tremor. I am concerned about this but donot see a good solution. I think you should also continue the Celexa and the Abilify. Those may also be contributing to some of the side effects you are having. With regards to gabapentin, I do not think it is a good idea for the kind of epilepsy that I think you are suffering from. Marijuana is doubtful proposition overall, and if you must use it try CBD rather than THC. Please call with any problems I would like to see you back in 6 months or sooner if necessary. Tereso Mohan MD Professor of neurology, [employer] [facility] Department of Neurology, [address] Pager: [phone], #[phone] Email: [email or web address] documented in this encounter Progress Notes Tereso Mohan MD - 03/24/2019 5:00 PM EST Neurology clinic note Chief complaint: [...] ?? 2. EEG: ?- Routine EEG:Done at [facility] 05/05/18: Normal study. ?? 3. Epilepsy Monitoring [...] that led to her being taken to [facility] emergency room. She had bitten side of her tongue quite badly, for the first time. She was discharged from there without change in me dication. She had another seizure at home and was taken to the emergency room at [facility] where she was held overnight. [...] patient is doing reasonably well. She has had no seizures for over 6 months. She is tolerating the combination of Depakote and Topamax. The tremor is still present but somewhat better. I was concerned about polypharmacy with gabapentin and Celexa and Abilify and I note that she has been taken off gabapentin. She is trying some CBD oil for symptoms of chronic pain particularly right-sided sciatica. 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 ?? Family history: There is no family [...] medications for this visit. Physical Examination: BP 97/79 Pulse 70 Ht 154.9 cm (5' 1) Wt 75.2 kg (165 lb 12.8 oz) Comment: reported BMI 31.33 kg/m?? HEENT: Unremarkable. Lungs: clear to auscultation bilaterally Heart: regular rate and rhythm, S1, S2 normal, no murmur, click, rub or gallop Abdomen: Normal at initial visit Extremities: extremities warm, atraumatic, no cyanosis or edema Mental status: Mentally clear, speech normal. Cranial nerve II XII: All normal. ?? Motor: Strength was 5/5 in upper and lower extremities, both proximally and distally, normal motor tone. Muscle bulk was normal throughout. Has mild resting and action tremor seen bilaterally. Tone is normal even with reinforcing maneuvers. ?? Sensory: Normal. ?? Reflexes: 2+ throughout. ?Previously plantar response was flexor bilaterally. ?? Cerebellar: Normal [id number] ?? Gait: gait was normal. Laboratory studies: 1. Brain imaging: ?- MRI brain was done in 2016 was unremarkable per patient. -MRI brain: 05/10/2018- No acute intracranial abnormality ? -CT scan head- None ?? 2. EEG: ?- Routine EEG:Done at [facility] 05/05/18: Normal study. Blood Tests: Orders Placed This Encounter Procedures ??? Valproic Acid Level, Total ??? Hepatic Function Panel ??? Basic Metabolic Panel (non-fasting) ??? CBC (with Diff) ??? Ammonia ??? Topiramate level ??? TSH ??? Vitamin B12 ??? T4 Total ??? Carnitine ??? Hemogram ??? Differential, Automated ?? Impression and plan: The patient is doing somewhat better 1. There is convincing evidence now that she has epilepsy, and that she probably needs Depakote for seizure control. 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 It is reassuring that MRI is normal. Unfortunately she has suffered side effects of Depakote as noted above, including weight gain, fatigue and tremor. This was at a dose of 500 mg twice daily. I recommended that she try a low dose of 250 mg twice daily and she is tolerating it better. In addition I am keeping her on Topamax 100 mg twice daily to help with seizure control and with the side effects of Depakote. So far this strategy has worked and I am inclined to make no change. 2. Psychiatrically she looks like she is doing well. It is reasonable to can keep her on Abilify andCelexa has she suffered from suicidal depression in the past. 3. She is complaining of chronic pain particularly sciatic pain on right. I did not go into this in detail today. There is no obvious neurological deficit. I am relieved that she is no longer on gabapentin which can exacerbate generalized forms of epilepsy. It is reasonable to see how she does on meloxicam and CBD oil, and then consider further work-up including MRI of the lumbar spine. Thank you for this consultation. I will see the patient back in the epilepsy clinic in 4 months or sooner if necessary. Tereso Mohan MD [place] [address] Pager #[phone] Email: [email or web address] CC: Comfort Urban APRN documented in this encounter Plan of Treatment Not on filedocumented as of this encounter Procedures Procedure Name Priority Date/Time Associated Comments Diagnosis HEMOGRAM Routine 03/24/2019 6:04 PM Seizures Results f or this EST procedure are i n the results section. DIFFERENTIAL, Routine 03/24/2019 6:04 PM Seizures Results for this AUTOMATED EST procedure are i n the results section. HC [facility] CARNITINE Routine 03/24/2019 6:04 PM Seizures Resul ts for this EST procedure are i n the results section. HC [facility] TOPIRAMATE Routine 03/24/2019 6:04 PM Seizures Resu lts for this EST procedure are i n the results section. HC CBC,PLT & AUTO Routine 03/24/2019 6:04 PM Seizures DIFF EST HC THYROID Routine 03/24/2019 6:04 PM Seizures Results f or this STIMULATING HORMONE, EST procedu re are in SERUM the results section. HC TOTAL T4 Routine 03/24/2019 6:04 PM Seizures Results f or this EST procedure are i n the results section. HC VITAMIN B12 SERUM Routine 03/24/2019 6:04 PM Seizures R esults for this EST procedure are i n the results section. HC AMMONIA, PLASMA Routine 03/24/2019 6:04 PM Seizures Res ults for this EST procedure are i n the results section. HC VALPROIC ACID Routine 03/24/2019 6:04 PM Seizures Resul ts for this EST procedure are i n the results section. HEPATIC FUNCTION Routine 03/24/2019 6:04 PM Seizures Resul ts for this PANEL EST procedure are i n the results section. BASIC METABOLIC PANEL Routine 03/24/2019 6:04 PM Seizures Results for this (NON-FASTING) EST procedure are in the results section. documented in this encounter Results (ABNORMAL) Differential, Automated (03/24/2019 6:04 PM EST) [facility] Method Time Signature Neutrophils % 47.0 % [facility] Neutr Abs (ANC) 4.59 1.70 - [facility] 6.10 [facility] x10(3)/[facility] LABORATORY Lymphocytes % 39.3 % [facility] Lymphocytes Abs 3.8 (H) 0.9 - 3.2 [facility] x10(3)/[facility] LABORATORY Monocytes % 10.2 % [facility] Monocyte Abs 1.0 (H) 0.3 - 0.9 [facility] x10(3)/[facility] LABORATORY Eosinophils % 2.7 % [facility] Eosinophils Abs 0.3 0.0 - 0.4 [facility] x10(3)/[facility] LABORATORY Basophils % 0.6 % [facility] Basophils Abs 0.1 0.0 - 0.1 [facility] x10(3)[facility] LABORATORY Immature Gran % 0.20 % [facility] Comment: Immature granulocytes(IG's)percentage an d absolute count will include metamyelocytes, myelocytes, and promyelo cytes. Blood smears from CBCs yielding IG's will be scanned manually for concor dance. If this scan disagrees with the automated IG or if promyelocytes are not ed, a manual differential will be performed. Miriam Gran Abs 0.02 0.00 - 0.04 x10(3)/[facility] Specimen Anatomical Collection Method Collection Time Receive d Time (Source) Location / / Volume Laterality Blood specimen 03/24/2019 6:04 PM 020 6:30 (specimen) EST PM EST Resulting Agency Comment Spec In Lab Tereso Mohan MD HEMATOLOGY ORDERABLES Performing Organization Address City/State/ZIP [place] [address] (ABNORMAL) Hemogram (03/24/2019 6:04 PM EST) P athologist Signature WBC 9.8 (H) 4.0 - 9.5 [facility] x10(3)/[facility] LABORATORY RBC 4.60 4.00 - [facility] 5.21 [facility] x10(6)/[facility] LABORATORY Hemoglobin 13.7 11.7 - [facility] 15.5 gm/dL [facility] Hematocrit 40.4 35.7 - MARYANN NATHCK 45.8 % [facility] MCV 87.8 82.6 - MARYANN KENDALLCOCK 94.4 [facility] LABORATORY MCH 29.8 27.1 - M[facility]ANN KENDALLCOCK 32.0 pg [facility] MCHC 33.9 31.7 - [facility] KENDALLCOCK 35.0 gm/dL [facility] Platelets 281 145 - 357 MARYANN CATHI x10(3)/[facility] LABORATORY RDWSD 38.3 37.0 - M[place]ANN KENDALLCOCK 46.0 [facility] LABORATORY RDWCV 11.9 11.5 - [facility] [place]ENDALLCOCK 14.1 % [facility] MPV 9.5 7.6 - 12.9 MARYANN WINKLER [facility] LABORATORY nRBC % Auto 0.0 % [facility] nRBC Abs Auto 0.000 0.000 - MARYANN WINKLER 0.000 [facility] x10(3)/[facility] LABORATORY Specimen Anatomical Collection Method Collection Time Receive d Time (Source) Location / / Volume Laterality Blood specimen 03/24/2019 6:04 PM 020 6:30 (specimen) EST PM EST Resulting Agency Comment Spec In Lab Tereso Mohan MD HEMATOLOGY ORDERABLES Performing Organization Address City/State/ZIP [place] [address] Carnitine (03/24/2019 6:04 PM EST) [facility] Method Time Signature Carnitine MARYANN Test ?Result ?Flag ??Unit ? RefValue CATHI [facility] ??Total ? 38 ?nmol/mL ??34-78 LABORATORY ??Free (FC) ? 31 ?nmol/mL ??25-54 ??Acylcarnitine (AC) ?7 ? nmol/mL ??5-30 ??AC/FC Ratio ? 0.2 ?0.1-0.8 ??Interpretation ?In this sample, the carnitine profile was normal. ? ADDITIONAL INFORMATION ------ ?This test was developed and its performance characteri stics ?determined by [facility] in a manner consistent with CLIA ?requirements. This test has not been cleared or approv ed by ?the U.S. Food and Drug Administration. ?Test Performed by: ?[facility] ?[address] [id number] ?Chemical Processing Laborer: Tito King M.D. Ph.D.; CLIA# [id number] Specimen Anatomical Collection Method Collection Time Receive d Time (Source) Location / / Volume Laterality Blood specimen 03/24/2019 6:04 PM 020 2:47 (specimen) EST PM EST Resulting Agency Comment Spec In Lab Tereso Mohan MD CHEMISTRY ORDERABLES Performing Organization Address City/State/[place] [address] T4 Total (03/24/2019 6:04 PM EST) athologist Signature T4, total 5.5 5.3 - 11.6 [facility] CATHI mcg/dL [facility] Comment: Reference Range: Females: First Trimester: 6.2-13.3 mcg/dL Second Trimester: 7.0-14.7 mcg/dL Third Trimester: 7.0-14.7 mcg/dL Specimen Anatomical Collection Method Collection Time Receive d Time (Source) Location / / Volume Laterality Blood specimen 03/24/2019 6:04 PM 020 6:30 (specimen) EST PM EST Resulting Agency Comment Spec In Lab Tereso Mohan MD CHEMISTRY ORDERABLES Performing Organization Address City/[facility] [address]/ZIP [place] [address] Vitamin B12 (03/24/2019 6:04 PM EST) athologist Signature Vitamin B-12 943 232 - 1,245 [facility] CATHI pg/mL [facility] Specimen Anatomical Collection Method Collection Time Receive d Time (Source) Location / / Volume Laterality Blood specimen 03/24/2019 6:04 PM 020 6:30 (specimen) EST PM EST Resulting Agency Comment Spec In Lab Tereso Mohan MD CHEMISTRY ORDERABLES Performing Organization Address City/State/[place] [address] TSH (03/24/2019 6:04 PM EST) athologist Signature TSH 3.21 0.27 - 4.20 [place] mcIU/mL [facility] Specimen Anatomical Collection Method Collection Time Receive d Time (Source) Location / / Volume Laterality Blood specimen 03/24/2019 6:04 PM 020 6:30 (specimen) EST PM EST Resulting Agency Comment Spec In Lab Tereso Mohan MD CHEMISTRY ORDERABLES Performing Organization Address City/[facility] [address]/ZIP [place] [address] Topiramate level (03/24/2019 6:04 PM EST) P athologist Signature Topiramate Lvl 12.7 mcg/mL [facility] Comment: REFERENCE VALUE------ Reference values depend on clinical use: Anticonvulsant: 5.0-20.0 mcg/mL Psychiatric: 2.0-8.0 mcg/mL ADDITIONAL INFORMATIO N This test was developed and its performa nce characteristics determined by [facility] in a manner co nsistent with CLIA requirements. This test has not been ilsa ared or approved by the U.S. Food and Drug Administration. Test Performed by: [facility] [place] [facility] [address] [address] Chemical Processing Laborer: Tito King M.D. Ph. D.; CLIA# [id number] Specimen Anatomical Collection Method Collection Time Receive d Time (Source) Location / / Volume Laterality Blood specimen 03/24/2019 6:04 PM 020 8:42 (specimen) EST AM EST Resulting Agency Comment Spec In Lab Tereso Mohan MD CHEMISTRY ORDERABLES Performing Organization Address City/State/ZIP Code [place] [address] Ammonia (03/24/2019 6:04 PM EST) athologist Signature Ammonia 24 11 - 51 [facility] Specimen Anatomical Collection Method Collection Time Receive d Time (Source) Location / / Volume Laterality Blood specimen 03/24/2019 6:04 PM 020 6:08 (specimen) EST PM EST Resulting Agency Comment Spec In Lab Tereso Mohan MD CHEMISTRY ORDERABLES Performing Organization Address City/[facility] [address]/ZIP Code [place] [address] (ABNORMAL) Basic Metabolic Panel (non-fasting) (03/24/2019 6:04 PM EST) athologist Signature Glucose Lvl 75 65 - 199 [facility] mg/dL [facility] Comment: Diabetes: >=200 mg/dL plus symp toms BUN 9 8 - 18 mg/dL [facility] Creatinine 0.66 (L) 0.70 - 1.20 mg/dL [facility] Sodium 139 135 - 145 mmol/L [facility] Potassium 3.6 3.5 - 5.0 mmol/L [facility] Comment: Please note: ??Patients with WBC >100,00 0 may have falsely elevated Potassium levels. ??For accurate Potassium quantif ication in these patients send serum separator tube (gold top) for subsequent determinations. ??Contact the Clinical Chemistry Laboratory if there are any qu estions. Chloride 107 98 - 107 mmol/L [facility] CO2 20 (L) 22 - 31 mmol/L [facility] Anion Gap 12 5 - 15 mmol/L [facility] Calcium 9.1 8.5 - 10.5 mg/dL [facility] Estimated GFR 114 >=60 mL/min/1.73 m?? [facility] Comment: The eGFR was calculated using the CKD-EP I equation. As with all creatinine based estimates of kidney function, eGFR values calculated with the CKD-EPI equation are not accurate in patients wi th acute kidney failure, extremes of body mass or the acutely ill. http://[employer]/[facility]Ankf eGFR 133 >=60 mL/min/1.73 m?? [facility] Comment: The eGFR was calculated using the CKD-EP I equation. As with all creatinine based estimates of kidney function, eGFR values calculated with the CKD-EPI equation are not accurate in patients wi th acute kidney failure, extremes of body mass or the acutely ill. http://[employer]/[facility]SAnkf Specimen Anatomical Collection Method Collection Time Receive d Time (Source) Location / / Volume Laterality Blood specimen 03/24/2019 6:04 PM 020 6:30 (specimen) EST PM EST Resulting Agency Comment Spec In Lab Tereso Mohan MD CHEMISTRY ORDERABLES Performing Organization Address City/[facility] [address]/ZIP [place] [address] (ABNORMAL) Hepatic Function Panel (03/24/2019 6:04 PM EST) P athologist Signature Total Protein 7.7 6.1 - 8.0 [facility] CATHI gm/dL [facility] Albumin 4.5 3.2 - 5.2 [facility] gm/dL [facility] AST 17 0 - 30 [facility] unit/L [facility] ALT 16 0 - 30 [facility] unit/L [facility] Alk Phos 31 (L) 35 - 105 [facility] C[facility] unit/L [facility] Total 0.3 0.2 - 1.3 [facility] Bilirubin mg/dL [facility] Bili, Direct 0.1 0.0 - 0.3 [facility] C[facility] mg/dL [facility] Specimen Anatomical Collection Method Collection Time Receive d Time (Source) Location / / Volume Laterality Blood specimen 03/24/2019 6:04 PM 020 6:30 (specimen) EST PM EST Resulting Agency Comment Spec In Lab Tereso Mohan MD CHEMISTRY ORDERABLES Performing Organization Address City/[facility] [address]/Z[place] [address] Valproic Acid Level, Total (03/24/2019 6:04 PM EST) P athologist Signature Valproic Lvl 54 mg/L [facility] Comment: Therapeutic Range: Anticonvulsant Therapy: ??50-100 mg/L Manic Episodes Associated with Bipolar D isorder: ??50-125 mg/L Specimen Anatomical Collection Method Collection Time Receive d Time (Source) Location / / Volume Laterality Blood specimen 03/24/2019 6:04 PM 020 6:30 (specimen) EST PM EST Resulting Agency Comment Spec In Lab Tereso Mohan MD CHEMISTRY ORDERABLES Performing Organization Address City/State/ZIP Code Phon e Number [place] [id number] [address] documented in this encounter Visit Diagnoses Diagnosis Seizures Other convulsions documented in this encounter Care Teams Games Manager Relationship Specialty Start Date End Date Comfort Urban APRN PCP - General Family Medicine 07/19/17 [address] [facility] [place] [address] documented as of this encounter
--- OUTSIDE RECORDS SUMMARY | 2021-09-13 13:14 | XMS_ITS | Encounter Summary ---
:1985 Author Organization [facility] [place] [address] Care Team Providers Name Role Phone JaydonComfort king SELVIN Primary Care Provider Reason for Referral Diagnostic Test (Routine) - Closed Specialty Diagnoses / Procedures Referred By Contact Refer red To Contact Radiology Diagnoses Seizures Charito Mosley [facility] Rad Mri Procedures [place] [address] [place] [address] Referral ID Status Reason Start Date Expiration Date Visits V isits Requested Authorized [id number] Closed Specialty 05/05/2018 08/03/2018 1 1 Service Requested Reason for Visit Diagnostic Test (Routine) - Closed Specialty Diagnoses / Procedures Referred By Contact Refer red To Contact Radiology Diagnoses Seizures Charito Mosley [facility] Rad Mri Procedures [place] [address] [place] [address] Referral ID Status Reason Start Date Expiration Date Visits V isits Requested Authorized [id number] Closed Specialty 05/05/2018 08/03/2018 1 1 Service Requested Encounter Details Date Type Department Care Team Description 05/10/2018 Hospital Encounter MRI at [facility] [place] [facility] Troy Montoya Seizures [facility] MD Escobar Sarabia [facility] [place] [address] NEUROLOGY DEPT. [phone] [place], [place] [address] (Wo rk) Social History Tobacco [...] as 0 needed. Med Name: CBD oil divalproex (DEPAKOTE) 500 Take 500 mg by [...] Priority Date/Time Associated Diagnosis Comme nts MRI BRAIN WO Routine 05/10/2018 12:46 PM Seizures Results for this CONTRAST EST procedure are i n the results section. documented in this encounter Results MRI Brain wo Contrast (05/10/2018 12:46 PM EST) Anatomical Region Laterality Modality Head Magnetic Resonance Specimen (Source) Anatomical Location Collection Method / Collectio n Time Received Time / Laterality Volume Impressions 05/11/2018 2:36 PM EDT No acute intracranial process. No etiology identified for the patient's history of seizures and tremors. Thank you for letting us participate in the care of this patient. For questions regarding this report, please contact e number below. ? Narrative 05/11/2018 2:36 PM EDT EXAMINATION: MRI BRAIN WO CONTRAST CLINICAL HISTORY: GENERALIZED CONVULSION S Normal EEG on 05/05/18. TECHNIQUE: MRI of the brain performed without intra venous contrast administration. Epilepsy seizure protocol. COMPARISON: None FINDINGS: Motion artifact degrades the high resolu tion 3D REYES and coronal T2 sequences, which limits evaluation of detailed stru ctures. Within that limitation, the hippocampi are symmetric in size and mor phology. No evidence of cortical dysplasia. No herman matter heterotopia. There are a couple scattered subcentimet er foci of T2 prolongation in the subcortical white matter of both frontal lobes, which are nonspecific. Trace nonspecific T2 prolongation in the periv entricular cerebral white matter. No abnormal restricted diffusion. No eviden ce of intracranial hemorrhage on the susceptibility weighted images. The vent ricles are normal in caliber. Partially empty sella incidentally noted. No abnor mal signal in the mastoid air cells. Small mucous retention cyst in the right maxillary sinus. Procedure Note Kimo Davis MD - 05/11/2018Format ting of this note might be different from the original. EXAMINATION: MRI BRAIN WO CONTRAST CLINICAL HISTORY: GENERALIZED CONVULSION S Normal EEG on 05/05/18. TECHNIQUE: MRI of the brain performed without intra venous contrast administration. Epilepsy seizure protocol. COMPARISON: None FINDINGS: Motion artifact degrades the high resolu tion 3D REYES and coronal T2 sequences, which limits evaluation of detailed stru ctures. Within that limitation, the hippocampi are symmetric in size and mor phology. No evidence of cortical dysplasia. No herman matter heterotopia. There are a couple scattered subcentimet er foci of T2 prolongation in the subcortical white matter of both frontal lobes, which are nonspecific. Trace nonspecific T2 prolongation in the periv entricular cerebral white matter. No abnormal restricted diffusion. No eviden ce of intracranial hemorrhage on the susceptibility weighted images. The vent ricles are normal in caliber. Partially empty sella incidentally noted. No abnor mal signal in the mastoid air cells. Small mucous retention cyst in the right maxillary sinus. IMPRESSION No acute intracranial process. No etiolo gy identified for the patient's history of seizures and tremors. Thank you for letting us participate in the care of this patient. For questions regarding this report, please contact e number below. Troy Montoya MD IMG MRI ORDERABLES documented in this encounter Visit Diagnoses Diagnosis Seizures Other convulsions documented in this encounter Care Teams Pipe Fitter Supervisor Relationship Specialty Start Date End Date Comfort Urban APRN PCP - General Family Medicine 07/19/17 [place] [address] documented as of this encounter
--- OUTSIDE RECORDS SUMMARY | 2021-09-13 13:14 | XMS_ITS | Encounter Summary ---
:1985 Author Organization [facility] [place] [address] Care Team Providers Name Role Phone Comfort Urban APRN Primary Care Provider Reason for Visit Reason Onset Date Comments Medication Refill 11/28/2020 Encounter Details Date Type Department Care Team Description 11/28/2020 Refill [place] [facility] [place] Mohan [place] [facility] [place] [address] NEUROLOGY DEPT. [phone] [place], [place] [address] (Wo rk) Social History Tobacco [...] on filedocumented in this encounter Care Teams Plant And Instrument Engineer Relationship Specialty Start Date End Date Comfort Urban APRN PCP - General Family Medicine 07/19/17 [place] [address] (work) documented as of this encounter
--- OUTSIDE RECORDS SUMMARY | 2021-09-13 13:14 | XMS_ITS | Encounter Summary ---
:1985 Author Organization [facility] [place] [address] Care Team Providers Name Role Phone Comfort Urban APRN Primary Care Provider Encounter Details Date Type Department Care Team Description 09/03/2018 Office Visit Neurology at [facility] [place] Tereso Mohan [place] [facility] [place] [address] NEUROLOGY DEPT. [phone] [place], [place] [address] (Wo rk) Social History Tobacco [...] Sign Reading Time Taken Comments Blood Pressure 131/76 09/03/2018 8:05 AM EDT Pulse 57 09/03/2018 8:05 AM EDT Temperature - - Respiratory Rate - - Oxygen Saturation - - Inhaled Oxygen Concentration - - Weight 87.4 kg (192 lb 9.6 oz) 09/03/2018 8:05 AM With shoes EDT Height 154.9 cm (5' 1) 09/03/2018 8:05 AM Reported EDT Body Mass Index 36.39 09/03/2018 8:05 AM EDT documented in this encounter Patient Instructions Patient InstructionsTereso Mohan MD - 09/03/2018 8:00 AM EDT Unfortunately you had a recurrent seizure when we took you off Depakote. I think this is a sign that you need to be on some Depakote for seizure control. I would like you to start taking Depakote at a lower dose of 250 mg twice a day. I have rewritten your prescription Please continue the Topamax 100 mg twice a day which is also for seizure control and to help with tremor. If this combination seems to agree with you we will continue it in the long run. If possible would like to try and get you off the gabapentin as that is not a good drug for patientswith your type of epilepsy. I would like to see you for a follow-up visit with Dr. Mosley in a few months. We will set this up. Tereso Mohan [place] [address] Pager: [phone], #[phone] Email: [email or web address] documented in this encounter Progress Notes Tereso Mohan MD - 09/03/2018 8:00 AM EDT Neurology clinic note Chief complaint: Epilepsy. History: The patient is seen in follow-up today. As noted earlier, the patient is a 32 y/o right handed woman, referred by Ms. Comfort Urban APRN forevaluation of seizures and remors. The patient was born via .she had no complication after and had normal development. She??did well in school. She is currently not working. There is no history of stroke, meningitis [...] experiences, no episodes of gastric rising sensations, piloerection, sweating, nor unexplained episodes of heart raising. She has had no myoclonic jerks nor episodes of waking up sore or with the bed wet She had an MRI brain which was [...] 2. EEG: ?- Routine EEG:Done at [facility] 05/05/18: Normal study. ?? 3. Epilepsy Monitoring Unit admissions: ?- None. ?? 4. Previous epilepsy-related neurosurgical interventions: ?- None. Interval History: In 2019 when we saw the patient in clinic, it seems likely that she had a mild case of epilepsy, particularly as her daughter also has epilepsy, but that the more recent episodes sounded more syncopal than epileptic. She was also describing a significant side effects of Depakote. We opted to do a crossover from Depakote to Topamax. Unfortunately this has not worked out. She came off the Depakote completely and was on Topamax 50 mgtwice daily when she had a convulsive seizure that led to her being taken to [facility] emergency room. She had bitten side of her tongue quite badly, for the first time. She was discharged from that without change in medication. She had another seizure at home and was taken to the emergency room at [facility] where she was held overnight. I spoke with the hospitalist, and recommended some adjustment inmedication with increase in the dose of Topamax, and discharge home with immediate follow-up the next day in our clinic. She is now feeling back to her baseline. ? Past Medical History: Patient Active Problem List [...] history of seizures. Mother: Hypertension, Diabetes Daughter: Agnieskza Levy- Chiari malformation s/p neurological surgery and absence seizures, developmental delay Review of Systems: She has gained weight. She sleeps all right. Bowel and bladder function are normal. Other systems were reviewed and were unremarkable. ?? Current Medications: Current Outpatient Medications Medication Sig Dispense Refill ??? topiramate (TOPAMAX) 100 mg Tablet Take 1 tablet by mouth 2 times daily. 60 tablet 11 ??? gabapentin (NEURONTIN) 600 mg Tablet Take [...] every 6 hours as needed for Pain. ??? divalproex (DEPAKOTE) 250 mg Tablet, Delayed Release (E.C.) Take 1 tablet by mouth 2 times daily. 60 tablet 11 No current facility-administered medications for this visit. Physical Examination: BP 131/76 (BP Location (NBP): Left arm, Patient Position: Sitting, BP Cuff Sizes: Adult (25-34 cm)) Pulse 57 Ht 154.9 cm (5' 1) Comment: Reported Wt 87.4 kg (192 lb 9.6 oz) Comment: With shoes BMI 36.39 kg/m? HEENT: Unremarkable. but side of tongue is bitten Lungs: clear to auscultation bilaterally Heart: regular [...] motor tone. Muscle bulk was normal throughout. No involuntary or other abnormal movements were seen. ?? Sensory: Normal. ?? Reflexes: 2+ throughout. ?Previously plantar response was flexor bilaterally. ?? Cerebellar: Normal [id number] ?? Gait: gait was normal. Laboratory studies: 1. Brain imaging: ?- MRI brain was done in 2016 was unremarkable per patient. -MRI brain: 05/10/2018- No acute intracranial abnormality ? -CT scan head- None ?? 2. EEG: ?- Routine EEG:Done at [facility] [facility] 05/05/18: Normal study. Blood Tests: None ordered here today. ?? Impression and plan: The situation is rather problematic. 1. There is convincing evidence now that [...] above, including weight gain, fatigue and tremor. I recommended that she try a low dose 250 mg twice daily instead of 500 mg twice daily. In addition I am keeping her on Topamax and increasing the dose to 100 mg twice daily to help withseizure control and with the side effects of Depakote. 2. I am concerned that she is taking gabapentin, Abilify and Celexa. 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 However I will not make any change at this time. Thank you for this consultation. We will see the patient back in the epilepsy clinic in 2 to 3 months or sooner if necessary. Tereso Mohan MD [place] [address] Pager #[phone] Email: [email or web address] CC: Comfort [email or web address] documented in this encounter Plan of Treatment Not on filedocumented as of this encounter Visit Diagnoses Diagnosis Seizures Other convulsions documented in this encounter Care Teams Topology Professor Relationship Specialty Start Date End Date Comfort Urban APRN PCP - General Family Medicine 07/19/17 [place] [address] documented as of this encounter
--- OUTSIDE RECORDS SUMMARY | 2021-09-13 13:14 | XMS_ITS | Encounter Summary ---
:1985 Author Organization [place] [address] Care Team Providers Name Role Phone Comfort Urban APRN Primary Care Provider Reason for Visit Reason Comments Medication Refill Encounter Details Date Type Department Care Team Description 03/28/2021 Refill Neurology at [facility] Teerso Mohan MD [facility] [address] NEUROLOGY DEPT. [phone] [place], [place] [address] (Wo rk) Social History Tobacco [...] Telephone Encounter - Zohra Lane CMA - 03/28/2021 8:03 AM EST Surescript request for : depakote Last rx: 12/28/20 Quantity: 60 Refills: 5 Last appt: 11/15/20 Next appt: Due 11/2021 documented in this encounter Plan of Treatment Not on filedocumented as of this encounter Visit Diagnoses Not on filedocumented in this encounter Care Teams Automatic Lump Making Machine Tender Relationship Specialty Start Date End Date Comfort Urban APRN PCP - General Family Medicine 07/19/17 [facility] [facility] [place] [address] documented as of this encounter
--- OUTSIDE RECORDS SUMMARY | 2021-09-13 13:14 | XMS_ITS | Encounter Summary ---
:1985 Author Organization [facility] [place] [address] Care Team Providers Name Role Phone Comfort Urban APRN Primary Care Provider Encounter Details Date Type Department Care Team Description 04/10/2021 Refill Neurology at [facility] [place] Tereso Mohan MD [facility] [place] [address] NEUROLOGY DEPT. [phone] [place], [place] [address] (Wo rk) Social History Tobacco [...] Telephone Encounter - Elizabeth Ledesma RN - 04/10/2021 10:23 AM EST Spoke to patient. Made aware that per Dr. Mohan: Her Vitamin D level is vanishingly low. Please put her on 2000 units daily. Patient in agreement and verbalized understanding of the plan. documented in this encounter Plan of Treatment Not on filedocumented as of this encounter Visit Diagnoses Not on filedocumented in this encounter Care Teams Psychiatric Nurse Practitioner Relationship Specialty Start Date End Date Comfort Urban APRN PCP - General Family Medicine 07/19/17 [facility] [place] [address] documented as of this encounter
--- OUTSIDE RECORDS SUMMARY | 2021-09-13 13:14 | XMS_ITS | Encounter Summary ---
:1985 Author Organization [facility] [place] [address] Care Team Providers Name Role Phone Comfort Urban APRN Primary Care Provider Reason for Referral Diagnostic Test (Routine) - Closed Specialty Diagnoses / Procedures Referred By Contact Refer red To Contact Radiology Diagnoses Sciatica of right side Tereso Mohan MD [facility] Rad Mri Procedures MRI Lumbar Spine wo Contrast (Generic) [facility] [place] [address] [place] [address] Referral ID Status Reason Start Date Expiration Date Visits V isits Requested Authorized [id number] Closed Specialty 11/26/2019 05/24/2020 1 1 Service Requested Reason for Visit Reason Onset Date Comments Triage 10/12/2019 Encounter Details Date Type Department Care Team Description 10/12/2019 Telephone Neurology at [facility] [place] Tereso Mohan MD Triage [facility] [place] [address] NEUROLOGY DEPT. [phone] [place], [place] [address] (Wo rk) Social History Tobacco [...] Telephone Encounter - Elizabeth Ledesma RN - 10/12/2019 1:[address] Mohan: please order a lumbar MRI without contrast and then on the same day have me see for a follow-up appointment. ??We could do it any day this week, or Saturday or next week. Message forwarded to [employer] secretary to facilitate with scheduling. Telephone Encounter - Elizabeth Ledesma RN - 10/12/2019 12:31 PM EDT [place] - 09/16/2019 [place] - 03/07/2020 Spoke to patient. Reports that her sciatic pain has gotten worse. My back is killing me. Reports alot of throbbing pain and tingling sensation on her right leg. Before the pain comes and goes but now it has been contact. 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 And she's unsure if her constant standing may have contributed to this pain. She is not taking any pain medicine. But she's using analgesic rub and hot pack to help with the pain. Denies any recent illness. Patient wanted to check with Dr. Mohan about getting an MRI done. Report forwarded to Dr. Mohan for review and comment. Pt/caller aware they will be called back with input when available and to call back in the interim if additional questions or change arise beforethey hear back from this office. Pt/caller agreeable to this plan. Telephone Encounter - Xavier Mcghee - 10/12/2019 9:29 AM EDT Call Center / Business Services Clerk Message - Pain Do not use for calls regarding chest pain or headaches/head pain Provider pt sees in Clinic: Dr. Mohan Caller and relationship (if other than patient-full name): self Call back number: [phone] Ok to leave a message: yes Reason for call: PAIN Where is the pain: Right in the middle of back and right leg. Is the pain still happening/present: yes Has the patient had this pain before: yes Level of pain on 0-10 scale (7 or greater red arrow message to the nurse): currently it is at a fiveas patient has rested all night, but after work it will climb to an 8. Additional information for the nurse: Patient was hoping to discuss an MRI that Dr. Mohan had mentioned. Disposition of Call ??? Routine message to nurse:yes documented in this encounter Plan of Treatment Not on filedocumented as of this encounter Results MRI Lumbar Spine wo [...] in context of the clinical situation (Re maricarmen Monique Et Al, Spine 2001). Findings: (Prevalence in [...] report, please contact th e number below. ? Narrative 11/30/2019 9:08 AM EDT EXAMINATION: MRI [...] context of the clinical situation (Re mikhail- Eneida Et Al, Spine 2001). Findings: (Prevalence in patients withou t low back pain), disc degeneration (decreased T2 signal, height loss, bulge ) (91%), disc T2-signal loss (83%), disc height loss (56%), disc bulge (64%), dis c protrusion (32%), annular fissure (38%). Thank you for letting us participate in the care of this patient. For questions regarding this report, please contact e number below. Tereso Mohan MD IMG MRI ORDERABLES documented in this encounter Visit Diagnoses Diagnosis Sciatica of right side Sciatica Sciatica of right side Sciatica documented in this encounter Care Teams Judo Instructor Relationship Specialty Start Date End Date Comfort Urban APRN PCP - General Family Medicine 07/19/17 [place] [address] documented as of this encounter
--- NOTE | 2021-09-13 13:15 | DI.MRI_ITS ---
Exam(s) MR LUMBAR SPINE WO EXAM: MR LUMBAR SPINE WO CLINICAL HISTORY: herniated disc, decreased sensation to bilateral l. TECHNIQUE: Multiplanar multisequence MRI of the Lumbar spine was performed. COMPARISON: There are no previous plain films available time this MRI interpretation. FINDINGS: Five lumbar vertebrae are presumed. Conus medullaris is at normal level. There is no evidence of conus mass nor subjacent clumping of in trathecal nerve roots to suggest arachnoiditis. The distal thecal sac appears to terminate slightly higher than typical, at lower L5 level .There is no evidence of Tarlov intrasacral cysts nor other si gnificant findings within the sacral canal Bones:There are no fractures nor ominous osseous lesions in the lumbar vertebral bodies and visualize d sacrum. There is a small benign intraosseous hemangioma in the L1 vertebral body, right of center. There are no ominous osseous lesions. With respect to the individual levels... T12-L1: Unremarkable L1-2: Normal disc height and signal. No disc herniation nor central canal stenosis.No foraminal steno sis L2-3: Normal disc height. No disc herniation nor central canal stenosis.No foraminal stenosis.No face t arthropathy. L3-4: Normal disc height. No disc herniation or central canal stenosis.No foraminal stenosis.No face t arthropathy. L4-5: Normal disc height. Mildly decreased disc hydration signal. There is annular bulging at this level with a superimposed central subligamentous disc protrusion. This indents the thecal sac. Ther e is also an additional posterolateral-lateral left small disc protrusion at the level of the floor o f the exiting left neural foramen. However, there is no prominent central canal stenosis. There is mild bilateral foraminal stenosis . On the right side this is mostly related to short AP dimensions of the pedicles and some degenerative change in the facet joint. On the left side similar findings p vicente the superimposed disc protrusion. L5-S1: Normal disc height and signal. No disc herniation. No canal stenosis. No foraminal stenosis mild facet degenerative. Soft tissues: paraspinal soft tissues appear unremarkable. IMPRESSION: 1. The main findings are at the L4-5 level where there is central subligamentous disc protrusion and a small left-sided disc protrusion superimposed upon annular bulging. These contact the thecal sac b ut there is no prominent central canal stenosis. There is an element of bilateral foraminal stenosis , as described above. 2. Other levels appear unremarkable. 3. Please note that if this patient is ever to be an operative candidate then plain films are recomme nded for correlated purposes so that 1 does not operate on the wrong-incorrect level. Report called by myself to ER provider. DATA REPOSITORY:
--- OUTSIDE RECORDS SUMMARY | 2021-09-13 13:15 | XMS_ITS | Encounter Summary ---
:1985 Author Organization [facility] [place] [address] Care Team Providers Name Role Phone JaydonComfort king SELVIN Primary Care Provider Encounter Details Date Type Department Care Team Description 05/05/2018 Hospital En[place] [address] Social History Tobacco Use Types Packs/Day Years [...] documented as of this encounter Procedure Notes Troy Montoya MD - 05/05/2018 4:01 PM ESTAssociated Order(s): EEG AWAKE, ASLEEP, DROWSY Procedure(s): EEG INTERP AWAKE AND ASLEEP [facility] Department of Neurology Outpatient EEG Report Name of the Patient: Bessie Levy Date of : 1985 Date of Service: 05/05/2018 Referring physician: Comfort Urban (PCP) BRIEF HISTORY: Bessie Levy is a 32 y.o. year old patient with history seizures on Depakote. MEDICATIONS: Current Outpatient Medications Medication Sig Dispense Refill ??? divalproex (DEPAKOTE) 500 mg Tablet, Delayed [...] channel digitized electroencephalogram was performed in the [facility] Clinical Neurophysiology Laboratory. The 10/20 international system of electrode placement was used and bipolar and referential electrode montages were recorded. In addition to EEG the patient was monitored for EKG and lateral/vertical eye movements. Video was recorded during the session. The duration of the recording was 30 minutes. TELEPHONIC CASE MANAGER'S REPORT: Performed by: Rico Santos Patient was sleep deprived. Sleep was attained. Photic stimulation was performed. Hyperventilation was performed. Effort was was adequate. Movement and other artifact was not significant. Comments:none ELECTROENCEPHALOGRAPHER'S REPORT: Background During the awake state with the eyes closed the background consisted of a normal amplitude, 11 Hz posterior reactive rhythm that attenuated appropriately with eye opening. Beta activity was distributeddiffusely with an anterior predominance. There was a normal anterior-posterior voltage gradient. With eye opening the background activity changed to a low voltage mixture of alpha, beta, and occasionaltheta range frequencies. There were no significant asymmetries of background activity noted. Sleep Stage II sleep was obtained and consisted of symmetrical sleep spindles and vertex sharp waves. Hyperventilation Hyperventilation resulted in diffuse slowing of the background activity without appearance of abnormal activity. Photic Stimulation Photic stimulation using a step-paul increase in photic frequency varying from 1-21 Hertz resulted in bilateral driving responses but no appearance of abnormal activity. Abnormal EEG Activity None EKG EKG revealed normal sinus rhythm. PRIOR EEG: No previous EEG reports were available. INTERPRETATION: This EEG is normal during the awake and sleep states as well as during the activation procedures of hyperventilation and photic stimulation. CLINICAL CORRELATION: This is a normal EEG. No epileptiform discharges or clinical seizures noted. Charito Mosley M.D Epilepsy Fellow Epilepsy pager [phone] Personal pager [phone] CC: SELVIN Purdy MD. I reviewed the EEG and I agree with the interpretation as written. Troy Montoya MD documented in this encounter Plan of Treatment Not on filedocumented as of this encounter Procedures Procedure Name Priority Date/Time Associated Diagnosis Comme nts ZEEG AWAKE, ASLEEP, Routine 05/05/2018 4:01 PM Seizure Re sults for this DROWSY EST procedure are i n the results section. documented in this encounter Results EEG awake, asleep, drowsy, routine (05/05/2018 4:01 PM EST) Narrative Troy Montoya MD - 05/05/2018 4 :01 PM EST Troy Montoya MD ? 05/06/2018 ??1:50 PM [facility] Department of Neurology Outpatient EEG Report Name of the Patient: ??Bessie Levy Date of : ?1985 Date of Service: ?05/05/2018 Referring physician: ?Comfort Urban (PCP) BRIEF HISTORY: Bessie Levy is a 32 y.o. year old p atient with history seizures on Depakote. MEDICATIONS: Current Outpatient Medications Medication Sig Dispense Refill ? ? divalproex (DEPAKOTE) 500 mg Tablet, [...] digitized electroencephalog yarely was performed in the [facility] Clinical Neurophysiology Laboratory. The 10/20 international system of electrode placement was used and bipolar and referential electrode montag es were recorded. ??In addition to EEG the patient was monitore d for EKG and lateral/vertical eye movements. Video wa s recorded during the session. The duration of the recording w as 30 minutes. TELEPHONIC CASE MANAGER'S REPORT:Performed by: Rico warren ?? Patient was sleep deprived. Sleep was attained. Photic stimulation was performed. Hyperventilation was performed. Effort w as was adequate. Movement and other artifact was not sign ificant. Comments:none ELECTROENCEPHALOGRAPHER'S REPORT: Background During the awake state with the eyes tyshawn sed the background consisted of a normal amplitude, 11 Hz p osterior reactive rhythm that attenuated appropriately with eye o pening. Beta activity was distributed diffusely with an anterior p redominance. There was a normal anterior-posterior voltage gradie nt. With eye opening the background activity changed to a low vol tage mixture of alpha, beta, and occasional theta range frequen cies. There were no significant asymmetries of background ac tivity noted. Sleep Stage II sleep was obtained and consiste d of symmetrical sleep spindles and vertex sharp waves. Hyperventilation Hyperventilation resulted in diffuse slo wing of the background activity without appearance of abnormal activity. Photic Stimulation Photic stimulation using a step-paul inc rease in photic frequency varying from 1-21 Hertz resulted in bila teral driving responses but no appearance of abnormal activity. Abnormal EEG Activity None EKG EKG revealed normal sinus rhythm. PRIOR EEG: No previous EEG reports were available. INTERPRETATION: This EEG is normal during the awake and sleep states as well as during the activation procedures of hype rventilation and photic stimulation. CLINICAL CORRELATION: This is a normal EEG. No epileptiform di scharges or clinical seizures noted. Charito Mosley M.D Epilepsy Fellow Epilepsy pager [phone] Personal pager [phone] CC: SELVIN Purdy MD. __ I reviewed the EEG and I agree with the interpretation as written. Troy Montoya MD Tereso Mohan MD NEUROLOGY ORDERABLES documented in this encounter Visit Diagnoses Diagnosis Seizure Other convulsions documented in this encounter Care Teams Rn Wound Relationship Specialty Start Date End Date Comfort Urban APRN PCP - General Family Medicine 07/19/17 [place] [address] documented as of this encounter
--- OUTSIDE RECORDS SUMMARY | 2021-09-13 13:15 | XMS_ITS | Encounter Summary ---
:1985 Author Organization [facility] [place] [address] Care Team Providers Name Role Phone Janak George MD Primary Care Provider [phone] Reason for Visit Reason Comments Atrial Septal Defect Encounter Details Date Type Department Care Team Description 07/23/2012 Office Visit Cardiothoracic Surge ry Pedro Booth MD ASD (atrial septal [facility] defect) (Primary Dx) [place] [address] [phone] CARDIOTHORACIC SURGERY [place] [address] Social History Tobacco Use Types Packs/Day Years Used Date Never Smoker Smokeless Tobacco: Never Used Alcohol Habits Answer Date Recorded How often [...] Sign Reading Time Taken Comments Blood Pressure 142/92 07/23/2012 9:11 AM EDT Pulse 76 07/23/2012 9:11 AM EDT Temperature - - Respiratory Rate - - Oxygen Saturation 98% 07/23/2012 9:11 AM EDT Inhaled Oxygen Concentration - - Weight 78.9 kg (174 lb) 07/23/2012 9:11 AM EDT Height 154.9 cm (5' 1) 07/23/2012 9:11 AM EDT Body Mass Index 32.88 07/23/2012 9:11 AM EDT documented in this encounter Progress Notes Pedro Booth MD - 08/23/2012 2:21 PM EDT Cardiac Surgery Clinic History of Present Illness: Briefly, Bessie Levy is a 26-year-old female referred by Dr. 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 She is referred to our clinic since during a recent surveillance/follow up TTE performed at [place], a small left to right shunt was incidentally noted. She has no symptoms. Her previous TTE was 5 years ago and it is unclear whether this was present on her previous study. The patient is asymptomatic. Specifically, she denies dyspnea, shortness of breath, lower extremity edema, orthopnea, and PND. She denies palpitations. She has no chest pain. Past Medical History: 1. ASD status post repair in childhood. 2. Asthma. 3. Anxiety and depression. 4. Chronic lower back pain. 5. GERD. 6. History of De Quervain's disease. Past Surgical History: 1. Status post right carpal tunnel release 2005. 2. Status post right knee retinacular release 1998. 3. ASD repair in childhood. Medications: 1. Lorazepam 0.5 mg one tablet as needed. 2. Zoloft 100 mg p.o. q.d. 3. Albuterol/ipratropium inhaler prn. Allergies: No drug allergies. Family History: The patient has a history of type 2 diabetes in the family, hypertension, and motherhas hypertension. She has a daughter who has a Chiari malformation status post neurological surgery and some developmental delay. Social History: She is a nonsmoker and nondrinker. She is with a and two children and lives outside of [place]. 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 Physical Exam: General: Pleasant, slightly obese 26-year-old female in no acute distress. Vitals: Filed Vitals: 07/23/12 0911 BP: 142/92 Pulse: 76 Height: 154.9 cm (5' 1) Weight: 78.926 kg (174 lb) SpO2: 98% HEENT: NC/AT. PERRL. Neck: Supple. Trachea midline. No elevation of jugular venous pressure. Chest: Clear to auscultation bilaterally. She has a well-healed sternotomy incision and her sternum is stable. Chest: Clear to auscultation bilaterally. There is no cardiac murmur audible. Abdomen: Obese, soft, nontender, nondistended. Extremities: No clubbing, cyanosis, or edema. Back: No CVA tenderness. Psychiatric: Negative. Neurologic: Nonfocal. Review of Systems: Constitutional: No history of fatigue, fevers, chills, weight loss or gain. Neurologic: No history of CVA or TIA. Cardiac: History of ASD repair. As in HPI. Denies chest pain. Pulmonary: No history of TB, positive for very mild asthma for which she takes an inhale rarely. GI: Negative for dysphagia, PUD, melena, hematochezia, diarrhea, or constipation. Genitourinary: No history of kidney disease or kidney stones. Hematologic: No history of easy bruisability or bleeding tendency. Musculoskeletal: Negative. Psychiatric: Anxiety and depression, managed with oral medications. Endocrine: No history of thyroid or endocrine disease. All other systems negative. Transthoracic echo is available from July 01, 2012, performed at [place]. I have reviewed this withDr. Chang. This shows only an extremely small inter- atrial shunt with left->right flow. The RV has normal function and RV size is within the upper range of normal. There is inadequate TR to estimatePA systolic pressures, and there is no right atrial enlargement. The left atrium is normal in size, the LVEF is normal (EF=60%). There is no significant valvular disease. The estimated right atrial pressure was 3 mmHg. We also reviewed a second set of transthoracic echo images from [place], which was a bubble study showing no evidence of right to left atrial shunt at rest, although it was unclear whether a Valsalva maneuver was performed. Assessment and Plan: Bessie Levy is a 26-year-old female S/P ASD repair in childhood (presumably a secundum ASD) who is asymptomatic and has a benign physical exam, referred for incidental discovery of small interatrialshunt with left->right flow on a 5 year surveillance TTE. Review of her [place] TTE shows no evidence of right sided cardiac chamber enlargement or pulmonary hypertension and her bubble study is unrevealing for pathology. There is certainly no indication for any intervention at present, nor any pressing need for right heart catheterization. I recommend watchful waiting at this point. Dr. Chang has suggested a transesophageal echo with Valsalva to further evaluate the intra-atrial septum, but if a valsalva was performedwith the completed bubble study, I would consider this an optional study. Bessie will follow up with Dr. Gabriel and I will communicate our assessment to him. She should of course have further surveillance with TTE periodically. We would be happy to see her on a prn basis moving forward. documented in this encounter Plan of Treatment Not on filedocumented as of this encounter Visit Diagnoses Diagnosis ASD (atrial septal defect) - Primary Ostium secundum type atrial septal defec t documented in this encounter Care Teams Torch Cutter Relationship Specialty Start Date End Date Janak George MD PCP - General 01/24/10 07/18/[address] [place] [id number] documented as of this encounter
--- OUTSIDE RECORDS SUMMARY | 2021-09-13 13:15 | XMS_ITS | Encounter Summary ---
:1985 Author Organization [facility] [place] [address] Care Team Providers Name Role Phone Janak George MD Primary Care Provider [phone] Encounter Details Date Type Department Care Team Description 07/23/2012 Orders Only Cardiology [facility] [place] [address] Social History Tobacco Use Types Packs/Day Years [...] Name Priority Date/Time Associated Diagnosis Comme nts ECHOCARDIOGRAM Routine 07/23/2012 Results for t his TRANSTHORACIC procedure are in the results section. ECHOCARDIOGRAM Routine 07/23/2012 Results for t his TRANSTHORACIC procedure are in the results section. documented in this encounter Results Echo Transthoracic (Complete) (07/23/2012) Specimen (Source) Anatomical Location Collection Method / Collectio n Time Received Time / Laterality Volume 07/23/2012 [facility] - 07/23/2012 11:50 AM ED T Amended Report Procedure: ? Transthoracic Echocardi ogram Patient: ? JCARLOS HIGH ? (Age): () ? Med Rec#: ?[id number] ? Sex: ?O ? Site Loc: ? Ht / Wt: ??(cm)/(kg) ? Pt. Loc: ?BSA: ? Study Date: ?07/22/2012 ? Pt. Type: Tape: ? Diagnosis:CPT Code(s): Indication(s):Rhythm: SUMMARY: 1. Interpretation of TTE performed in [place]. 2. Limited follow-up study. ??See interp retation of full study performed 07/01/12. 3. With administration of agitated salin e, there is no evidence of mijpg-vy-umed interatrial shunt at rest. ??Unable to determine whether Valsalva maneuver/release was performed. ?? 4. Additional transthoracic imaging with Valsalva and / or RAJESH may be helpful in further evaluating the intera trial septum if clinically indicated. ?? This report has been electronically sign ed by: _ Ruben Chang ? 07/23/2012 12:0 1:46 Images reviewed and interpretation [facility] Cardiac Ultrasound Laboratory Procedure Note Ruben Chang MD - 07/23/2012Format ting of this note might be different from the original. Amended Report Procedure: Transthoracic Echocardiogram Patient: JCARLOS HIGH (Age): () Med Rec#: [id number] Sex: O Site Loc: Ht / Wt: (cm)/(kg) Pt. Loc: BSA: Study Date: 07/22/2012 Pt. Type: Tape: Diagnosis:CPT Code(s): Indication(s):Rhythm: SUMMARY: 1. Interpretation of TTE performed in [place]. 2. Limited follow-up study. See interpre tation of full study performed 07/01/12. 3. With administration of agitated salin e, there is no evidence of [id number]-fz-qknd interatrial shunt at rest. Unable to determine whether Valsalva maneuver/release was performed. 4. Additional transthoracic imaging with Valsalva and / or RAJESH may be helpful in further evaluating the intera trial septum if clinically indicated. This report has been electronically sign ed by: _ Ruben Chang 07/23/2012 12:01:46 Images reviewed and interpretation fco quigley [facility] Cardiac Ultrasound Laboratory Unknown ECHO ORDERABLES Performing Organization Address City/State/ZIP Code Phon e Number [facility] Echo Transthoracic (Complete) (07/23/2012) Specimen (Source) Anatomical Location Collection Method / Collectio n Time Received Time / Laterality Volume 07/23/2012 Narrative [facility] - 07/23/2012 11:40 AM ED T Amended Report Procedure: ? Transthoracic Echocardi ogram Patient: ? JCARLOS HIGH ? (Age): () ? Med Rec#: ?[id number] ? Sex: ?O ? Site Loc: ? Ht / Wt: ??(cm)/(kg) ? Pt. Loc: ?BSA: ? Study Date: ?07/01/2012 ? Pt. Type: Tape: ? Diagnosis:CPT Code(s): Indication(s):Rhythm: SUMMARY: 1. Interpretation of TTE performed in [place]. ?? 2. Status post surgical ASD repair. ??Th ere is color Doppler evidence of a small residual interatrial shunt (appe ars [id number]). ? 3. Left ventricular chamber size, wall t hickness, global and segmental systolic function are within normal limi ts. Ejection fraction is estimated to be 60%. 4. The right ventricle is upper normal i n size. ??Right ventricular global systolic function is normal. ??Pu lmonary artery hypertension could not be assessed due to inadequate tricus pid regurgitation jet. 5. The atria measuere normal in size. 6. There are no significant valvular fin dings. ?? 7. See remainder of report for additiona l findings. FINDINGS: Left Ventricle ?Left ventricular chamber size, wal l thickness, global and segmental systolic function are within normal limi ts. Ejection fraction is estimated to be 60%. ?Post-cardiotomy septal wall motion is present. Left Atrium ?The left atrium is normal in size. ?Septal defect is demonstrated by c olor Doppler. Right Ventricle ?Right ventricular global systolic function is normal. ?Pulmonary artery hypertension coul d not be assessed due to inadequate tricuspid regurgitation jet. ?The estimated right atrial pressur e is 3 mmHg. Right Atrium ?The right atrium is normal in size . Aortic Valve ?The aortic valve is not well visua lized. ?The aortic valve is probably tricu spid. ?There is no evidence of aortic lalo ve thickening. ?Systolic excursion of the aortic v alve is normal. ?There is no evidence of aortic reg urgitation. Mitral Valve ?The mitral valve leaflets appear n ormal. ?There is trace mitral regurgitatio n present. Tricuspid Valve ?The tricuspid valve leaflets are m orphologically normal. ?There is trace tricuspid regurgita tion present. Pulmonic Valve ?The pulmonic valve is not well vis ualized. ?There is trace pulmonic regurgitat ion present. Pericardium ?There is no pericardial effusion. Aorta ?The aortic root is normal in size. ?The ascending aorta is normal in s ize. Venous ?The inferior vena cava appears nor mal in size. ?There is a greater than 50% respir atory change in the inferior vena cava dimension. Misc ?See remainder of report for additi onal findings. Chambers ?Value ?Units (Range) ? LV EF Est ? 60 ? % (55 to 80) ? LA area ? 17 ? cm2 (<21) ? RA area ? 16 ? cm2 (<18) ? Ao root ? 2.8 ?cm (2.1 to 3.6) ? Asc Ao ?2.7 ?cm (2 to 3.5) ? Mitral Valve ?Value ?Units (Range) ? E peak ?0.87 ? m/sec ? E/A ratio ? 1.3 ?ratio ? MVDT ?229 ?msec ? E1 ?0.06 ? m/sec ? E/E1 ?14.5 ? ratio ? Tricuspid/Pulmonic Valves ?Value ?Units (Range) ? RAP ? 3 ?mmHg ? This report has been electronically sign ed by: _ Ruben Chang ? 07/23/2012 11:4 4:46 Images reviewed and interpretation fco ievineet [facility] Cardiac Ultrasound Laboratory Procedure Note Ruben Chang MD - 07/23/2012Format ting of this note might be different from the original. Amended Report Procedure: Transthoracic Echocardiogram Patient: JCARLOS GARCIAS(Age): () Med Rec#: [id number] Sex: O Site Loc: Ht / Wt: (cm)/(kg) Pt. Loc: BSA: Study Date: 07/01/2012 Pt. Type: Tape: Diagnosis:CPT Code(s): Indication(s):Rhythm: SUMMARY: 1. Interpretation of TTE performed in [place]. 2. Status post surgical ASD repair. Ther e is color Doppler evidence of a small residual interatrial shunt (appe ars [id number]). 3. Left ventricular chamber size, wall t hickness, global and segmental systolic function are within normal limi ts. Ejection fraction is estimated to be 60%. 4. The right ventricle is upper normal i n size. Right ventricular global systolic function is normal. Pulm onary artery hypertension could not be assessed due to inadequate tricus pid regurgitation jet. 5. The atria measuere normal in size. 6. There are no significant valvular fin dings. 7. See remainder of report for additiona l findings. FINDINGS: Left Ventricle Left ventricular chamber size, wall thi ckness, global and segmental systolic function are within normal limi ts. Ejection fraction is estimated to be 60%. Post-cardiotomy septal wall motion is p resent. Left Atrium The left atrium is normal in size. Septal defect is demonstrated by color Doppler. Right Ventricle Right ventricular global systolic funct ion is normal. Pulmonary artery hypertension could not be assessed due to inadequate tricuspid regurgitation jet. The estimated right atrial pressure is 3 mmHg. Right Atrium The right atrium is normal in size. Aortic Valve The aortic valve is not well visualized . The aortic valve is probably tricuspid. There is no evidence of aortic valve th ickening. Systolic excursion of the aortic valve is normal. There is no evidence of aortic regurgit ation. Mitral Valve The mitral valve leaflets appear normal . There is trace mitral regurgitation pre sent. Tricuspid Valve The tricuspid valve leaflets are morpho logically normal. There is trace tricuspid regurgitation present. Pulmonic Valve The pulmonic valve is not well visualiz ed. There is trace pulmonic regurgitation p resent. Pericardium There is no pericardial effusion. Aorta The aortic root is normal in size. The ascending aorta is normal in size. Venous The inferior vena cava appears normal i n size. There is a greater than 50% respiratory change in the inferior vena cava dimension. Misc See remainder of report for additional findings. Chambers Value Units (Range) LV EF Est 60 % (55 to 80) LA area 17 cm2 (<21) RA area 16 cm2 (<18) Ao root 2.8 cm (2.1 to 3.6) Asc Ao 2.7 cm (2 to 3.5) Mitral Valve Value Units (Range) E peak 0.87 m/sec E/A ratio 1.3 ratio MVDT 229 msec E1 0.06 m/sec E/E1 14.5 ratio Tricuspid/Pulmonic Valves Value Units (Range) RAP 3 mmHg This report has been electronically sign ed by: _ Ruben Chang 07/23/2012 11:44:46 Images reviewed and interpretation verif ied [facility] Cardiac Ultrasound Laboratory Unknown ECHO ORDERABLES Performing Organization Address City/State/ZIP Code Phon e Number [facility] documented in this encounter Visit Diagnoses Not on filedocumented in this encounter Care Teams Chief Of Service Relationship Specialty Start Date End Date Janak George MD PCP - General 01/24/10 07/18/[address] [place] [phone] documented as of this encounter
--- OUTSIDE RECORDS SUMMARY | 2021-09-13 13:15 | XMS_ITS | Encounter Summary ---
:1985 Author Organization [facility] [place] [address] Care Team Providers Name Role Phone Comfort Urban APRN Primary Care Provider Reason for Referral Diagnostic Test (Routine) - Closed Specialty Diagnoses / Procedures Referred By Contact Refer red To Contact Radiology Diagnoses Seizures Charito Mosley MBBS [facility] Rad Mri Procedures [place] [address] [place] [address] Referral ID Status Reason Start Date Expiration Date Visits V isits Requested Authorized [id number] Closed Specialty 05/05/2018 08/03/2018 1 1 Service Requested Reason for Visit Consultation (Routine) - Specialty Diagnoses / Procedures Referred By Contact Refer red To Contact 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 Comfort Urban APRN [facility] Neurology [address] [place] [id number] Referral ID Status Reason Start Date Expiration Date Visits V isits Requested Authorized [id number] Consult, 03/07/2018 03/07/2019 6 6 [facility] Connection [facility] Encounter Details Date Type Department Care Team Description 05/05/2018 Office Visit Neurology at [facility] Troy Montoya MD [facility] [place] [address] Seizures [facility] Charito Avalos MBBS [facility] [place] [address] [place] [address] Social History Tobacco Use Types Packs/Day [...] Sign Reading Time Taken Comments Blood Pressure 140/85 05/05/2018 12:59 PM EST Pulse 76 05/05/2018 12:59 PM EST Temperature - - Respiratory Rate - - Oxygen Saturation - - Inhaled Oxygen Concentration - - Weight 94.3 kg (208 lb) 05/05/2018 12:59 PM EST Height 154.9 cm (5' 1) 05/05/2018 12:59 PM EST reporte d Body Mass Index 39.3 05/05/2018 12:59 PM EST documented in this encounter Progress Notes Charito Mosley MBBS - 05/05/2018 1:00 PM EST Patient Name: Chief Complaint: Seizures. History of presenting illness: The patient presents alone for this visit. Bessie Machado is a 32 y/o right handed female, referred by Ms. Comfort Urban APRN for evaluation of seizures and Tremors. Patient reported that she had a first seizure 4 years ago it was an unprovoked seizure which was witnessed by her and her daughter. She was taken to the ER and immediately had a second episode of generalized convulsions. She denied having any foreign warning signs before the episode. She had an MRI brain which was normal. She states that she never had an EEG done so for. She was started on Keppra 500 mg twice daily. 3 months later Keppra was [...] it was witnessed by the neighbors. She she reported that her heart rate was low and had CPRdone before the ambulance arrived. There was no clear triggers for her seizures. It was unclear how long the episodes lasted for. There was no tongue bite or urinary incontinence associated with these episodes. She denied having any further seizures since August 2016. She reports been compliant with hermedications and denied having any side effects on Depakote There is no history of memory gaps( other than one noted above), confusional spells, staring spells,oral/manual automatisms, strange smells or taste, sensation of anirudh vu, jamais vu impending doom, out of body experiences, no episodes of gastric uprising, piloerection, sweating, nor unexplained episodes of heart raising. She had no myoclonic jerks nor episodes of waking up sore /wetted/with blood inher mouth. Tremors: For the past 1 year patient has been noticing tremors in her extremities and face. She states that it has been constant and progressively getting worse. Nothing makes it better or worse. Thereis no family history of tremors. She states that it has been mostly resting tremor and can be distrac tible. Current antiepileptic medications: Depakote 500 mg po bid Previous antiepileptic medications: Keppra (Depression and anxiety). EVENT SEMIOLOGY: Event type #1: Passing out with generalized shaking. Semiology: The patient does not remember much about the event. . No tongue bite nor bladder/bowel incontinence. Witnessed by her and daughter. Duration: Unclear Frequency: Twice Provoking factors: None Diurnal variation: None Event type #2: Dizziness followed by loss of consciousness Semiology: Followed by loss of consciousnessThe patient reports having sudden onset of dizziness. Notongue bite nor bladder/bowel incontinence. No shaking episode. Duration: Unclear Frequency: Twice Provoking factors: None Diurnal variation: None Risk Factors for Epilepsy: Born via .No complication after . and had normal development. She did well in school. She is currently not working. There is no history of stroke, meningitis orencephalitis. There were no previous neurosurgical interventions. There is no history of febrile seizures. Had concussion at age of 13. Previous work up: 1. Brain imaging: - MRI brain was done in 2016 was unremarkable per patient. -CT scan head- None 2. EEG: - Routine EEG: Will be done toay 05/05/2018 at [facility]. 3. Epilepsy Monitoring Unit admissions: - None. 4. Previous epilepsy-related neurosurgical interventions: - None. Review of Systems: 10-point review of systems was reviewed and it was negative other than what was described in the HPI. Past Medical History: 1.ASD s/p repair in childhood. 2. Asthma. 3. Anxiety and depression. 4. Chronic lower back pain. 5. GERD. 6. History of De Quervain's disease 7. Fibromyaligia 8.Hypertension 9.Hyperlipidemia 10.Migraine Past Surgical History: 1. Status post right carpal tunnel release 2005. 2. Status post right knee retinacular release 1998. 3. ASD repair in childhood Allergies: NKDA Social History: Denied smoking and occassional alcohol use. She is with a and two children. 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 Family history: There is no family history of seizures. Mother: Hypertension, Diabetes Daughter: Agnieszka Levy- Chiari malformation s/p neurological surgery and seizures developmental delay Current Medications: Current Outpatient Medications: ??? divalproex (DEPAKOTE) 500 [...] , Rfl: Physical Examination: Most Recent Vitals: 05/05/18 1259 BP: 140/85 Pulse: 76 General appearance: alert Head: normocephalic, without obvious [...] temperature, turgor normal; no rashes or lesions Neurological Examination: Mental status:. The patient's orientation, [...] nerve VIII: hearing was intact to finger rub at 6 inches bilaterally. Cranial nerves IX and X: there was normal movement of the soft palate. Cranial nerve XI: shoulder shrug was intact bilaterally. Cranial nerve XII: there was no tongue deviation with protrusion. Motor Strength & Tone: Strength was 5/5 in upper and lower extremities, both proximally and distally. Patient exhibits normal motor tone. Muscle bulk was normal throughout. Involuntary Movements: No involuntary movements were seen. Sensory: Light touch and temperature sensation was intact throughout. Reflexes: Biceps: right 2+, left 2+. Triceps: right 2+, left 2+. Brachioradialis: right 2+, left 2+. Patella: right 2+, left 2+. Ankle Jerk: right 2+, left 2+. Plantar response was flexor bilaterally. Coordination: Coordination was normal, including finger to nose and heel-boogie testing. Gait: The gait was normal. Able to perform tandem gait without any difficulty. Romberg was negative. ASSESSMENT: - Problem I: Seizures: It was unclear, if the patient carries the diagnosis of epilepsy. Based on the history, the last 2 episodes sounds more like syncopal episode. On exam no focal neurological deficits were noted. currently on Depakote extended release 500 mg twice daily. We discussed about gettingroutine EEG and MRI of the brain. If EEG and MRI is normal we will consider tapering off AEDs. If either of the test is abnormal then patient should continue AEDs but will plan on switching Depakote toeither Lamictal or Topamax or zonisamide. - Problem II: Tremors: Started 1 year ago. Reports having constant nonrhythmic resting tremors of either arms, legs or head shaking. On exam tremors are distractible . Likely could be the side effect from Depakote. PLAN: 1. Continue with Depakote extended release 500 mg twice daily 2.Routine EEG today. Photic stimulation and hyperventilation should be utilized also. 3. Follow up with the primary care Physician for depression and anxiety 4. Discussed in details seizure provoking factors: [...] vitamin D supplementation. 8. Follow up in 6 weeks. Advised the patient to call us with any questions or concerns in the meantime. Thank you for involving me in care of Bessie Levy. Please feel free to contact the office with any questions or concerns. Charito Mosley M.D Epilepsy Fellow Epilepsy pager [phone] Personal pager [phone] Neurology (Staff) Addendum I saw and evaluated the patient. I have reviewed the resident's history, physical examination findings, assessment and plan during the visit and I agree with the details as written, unless otherwise specified as below. 32 y/o patient with history of two GC in < 24 hours at age 28 c/w probable GTC. Two more recent episodes of SHANNA and falling without GC, likely syncope. Exam shows head+UE tremor, possibly from Depakote. MRI brain and EEG to understand future seizure risk. Consider weaning Depakote if normal. Troy Montoya MD documented in this encounter Plan of Treatment Not on filedocumented as of this encounter Results MRI Brain wo Contrast [...] e number below. ? Electronically signed by: Kimo gallagher [facility] ([phone]), at 05/11/2018 2:36 PM Narrative 05/11/2018 2:36 PM EDT EXAMINATION: MRI [...] convulsions documented in this encounter Care Teams Entry Level Account Manager Relationship Specialty Start Date End Date Comfort Urban APRN PCP - General Family Medicine 07/19/17 [address] [place] [address] documented as of this encounter
--- OUTSIDE RECORDS SUMMARY | 2021-09-13 13:15 | XMS_ITS | Encounter Summary ---
:1985 Author Organization [facility] [place] [address] Care Team Providers Name Role Phone Janak George MD Primary Care Provider [phone] Encounter Details Date Type Department Care Team Description 05/10/2014 Telephone Neurology Moise Rayo MD [facility] [place] [address] NEUROLOGY DEPT [phone] [place], [place] [address] (Wo rk) Social History Tobacco [...] this encounter Miscellaneous Notes Telephone Encounter - Moise Rayo MD - 05/10/2014 12:[address] Julien calling from [facility] regarding this patient. She has been having recurrent seizures. She has history of asthma and ASD repair. She had witnessed seizures at home and then recurrent one while in the ED. She screams out, grabs the left side of her head, has convulsions and bites tongue. She appeared cyanotic and was given 2 mg lorazepam. She has no family history of seizures and no febrile seizures as a child. She had two seizures within an hour of each other. She is to stay overnight. I stated that it would be prudent to admit the patient and levetiracetam is an agent that could be used. 1000 mg load and then 500 mg bid. She should get a routine EEG to evaluate for any persistent epileptiform activity and an MRI brain w/w/o contrast, these can be obtained tomorrow.They will call with any additional questions or concerns. documented in this encounter Plan of Treatment Not on filedocumented as of this encounter Visit Diagnoses Not on filedocumented in this encounter Care Teams Fabric Inspector Relationship Specialty Start Date End Date Janak George MD PCP - General 01/24/10 07/18/[address] [facility] [place] [place] [address] documented as of this encounter
--- OUTSIDE RECORDS SUMMARY | 2021-09-13 13:15 | XMS_ITS | Encounter Summary ---
:1985 Author Organization [facility] [place] [address] Care Team Providers Name Role Phone Comfort Urban APRN Primary Care Provider Encounter Details Date Type Department Care Team Description 05/05/2018 Orders Only Neurology at [facility] [place] [address] Social History Tobacco Use Types Packs/Day [...] on filedocumented in this encounter Care Teams Cotton Sampler Relationship Specialty Start Date End Date Comfort Urban APRN PCP - General Family Medicine 07/19/17 [place] [address] documented as of this encounter
--- OUTSIDE RECORDS SUMMARY | 2021-09-13 13:15 | XMS_ITS | Encounter Summary ---
:1985 [place] [address] Care Team Providers Name Role Phone Comfort Urban APRN Primary Care Provider Encounter Details Date Type Department Care Team Description 03/17/2018 Orders Only Neurology at [facility] Tereso Mohan MD [facility] [place] [address] NEUROLOGY DEPT. [phone] [place], [place] [address] (Wo rk) Social History Tobacco [...] on filedocumented as of this encounter Results EEG awake, asleep, drowsy, routine (05/05/2018 4:01 PM EST) Narrative Troy Montoya MD - 05/05/2018 4 :01 PM EST Troy Montoya MD ? 05/06/2018 ??1:50 PM [facility] Department of Neurology Outpatient EEG Report Name [...] digitized electroencephalog yarely was performed in the [facility] [place] [facility]. The 10/20 international system of electrode placement was used and bipolar and referential electrode montag es were recorded. ??In addition to EEG the patient was monitore d for EKG and lateral/vertical eye movements. Video wa s recorded during the session. The duration of the recording w as 30 minutes. MARKETING SERVICES REP'S REPORT:Performed by: Rico warren ?? Patient was [...] Charito Mosley M.D Epilepsy Fellow Epilepsy pager [phone] Personal pager [phone] CC: SELVIN Purdy MD. __ I reviewed the EEG and I agree with the interpretation as written. Troy Montoya MD Tereso Mohan MD NEUROLOGY ORDERABLES documented in this encounter Visit Diagnoses Diagnosis Seizure Other convulsions Seizure Other convulsions documented in this encounter Care Teams Employee Relation Manager Relationship Specialty Start Date End Date Comfort Urban APRN PCP - General Family Medicine 07/19/17 [address] [place] [address] documented as of this encounter
--- OUTSIDE RECORDS SUMMARY | 2021-09-13 13:16 | XMS_ITS | Continuity of Care Document ---
:1985 Author Organization [facility] Address [address] [place] [address] Care Team Providers Name Role Phone TYESHAMARY Primary Care Physician Encounter Date(s): 05/10/21 - 05/10/[address] [address] Encounter Diagnosis Atrial septal defect (Discharge Diagnosis) - 05/10/21 Discharge Disposition: Home or Self Care Attending Physician: TC BOONE MD Admitting Physician: TC BOONE MD Allergies, Adverse Reactions, Alerts No Known Allergies Immunizations Given and Recorded Vaccine Date Status Refusal Reason influenza virus vaccine, inactivated 02/03/14 Given Medications Abilify 2 mg oral tablet 2 mg = 1 tab(s), Oral, Daily, 0 Refill(s) Start Date: 02/27/18 Status: Orderedalbuterol CFC free 90 mcg/inh inhalation aerosol with adapter 90 mcg = 1 puff(s), INH, q4hr, PRN PRN: for wheezing, PRN use with spacer chamber, # 1 ea, 2 Refill(s), [facility] [id number] Start Date: 07/18/16 Status: Orderedamoxicillin 500 mg oral tablet See Instructions, 500 mg Oral--4 tabs 1 hr prior to dental procedure, # 4 ea, 0 Refill(s), called topharmacy (Rx) Start Date: 06/25/16 Status: OrderedCeleXA 20 mg oral tablet 20 mg = 1 tab(s), Oral, Daily, 0 Refill(s) Start Date: 02/27/18 Status: OrderedDepakote 500 mg, Oral, qHS, take 250 mg in AM, 0 Refill(s) Start Date: 03/03/19 Status: OrderedFlovent HFA 110 mcg/inh inhalation aerosol 2 puff(s), INH, BID, use with spacer chamber (rinse mouth and throat after use), # 12 gm, 0 Refill(s), Pharmacy: [facility] [place] [address] Start Date: 01/07/18 Status: Orderedgabapentin 100 mg, Oral, TID, 0 Refill(s) Start Date: 05/10/21 Status: Orderedmeloxicam 15 mg, Oral, Daily, 0 Refill(s) Start Date: 03/03/19 Status: OrderedParagard Intrauterine Copper Paragard Intrauterine Copper, 0 Refill(s) Start Date: 06/20/12 Status: OrderedTopamax 200 mg, Oral, BID, 0 Refill(s) Start Date: 03/03/19 Status: Ordered Problem List Condition Effective Dates Status Health Status Informant Asthma, unspecified, w/o status Active asthmaticus or acute exacerbation(Confirmed) Atrial septal defect(Confirmed) Active Elevated blood pressure without HTN Active dx(Confirmed) Fibromyalgia(Confirmed) Active GERD [Gastroesophageal reflux Active disease](Confirmed) Recurrent major depression in complete Active remission(Confirmed) Procedures Procedure Date Related Diagnosis Body Site Status Colonoscopy; WNL 11/2008 Completed Carpal Tunnel Repair; right 2006 Completed ASD Defect Repair 2002 Completed Right Retinacular Release of knee 1998 Completed Vital Signs Most recent to oldest [Reference Range]: 1 Apical Heart Rate [60-100 bpm] 51 bpm *LOW* (05/10/21 1:53 PM) Apical HR Normalcy Regular (05/10/21 1:53 PM) Respiratory Rate [14-20 br/min] 17 br/min (05/10/21 1:53 PM) Blood Pressure 128/76 mmHg (05/10/21 1:53 PM) Mean Arterial Presure, Manual 93 mmHg (05/10/21 1:53 PM) Social History Social History Type Response Tobacco 1 Smoking Status Never smoker Sex Female 1never used tobacco Care Team PersonnelName: MARY BRIGGS, Address: [address] [place] [address]
--- OUTSIDE RECORDS SUMMARY | 2021-09-13 13:16 | XMS_ITS | Encounter Summary ---
:1985 Author Organization [facility] [place] [facility] Address [address] [place] [address] Care Team Providers Name Role Phone Unknown, Provider Primary Care Provider Encounter Details Date Type Department Care Team Description 10/19/2016 Results Only [facility] Ruby, ELECTRICAL ENGINEER MEP [phone] [address] [place], [place] [id number] (Wo rk) Social History Tobacco Use Types Packs/Day Years Used Date Never Assessed Sex Assigned at Date Recorded Not on file documented as of this encounter Plan of Treatment Not on filedocumented as of this encounter Procedures Procedure Name Priority Date/Time Associated Diagnosis Comme nts PAP TEST- RESULT Routine 10/19/2016 0:00 EDT Resu lts for this ONLY procedure are i n the results section. documented in this encounter Results PAP TEST- RESULT ONLY (10/19/2016 0:00 EDT) Pathology Report: CYTOPATHOLOGY REPORT [facility] Reports generated via electronic interface contain jan ginal data; SERVICES however they are lacking the format of the original re port. Caution should be taken when reading/interpreting unfo rmatted reports. Name: ? BESSIE GARBER ? Accession #: ? [id number] ? : ? 1985 (Age: 1 2) ??F ?Collect Date: ? 10/19/2016 ? Location: ? [facility] ? Receive Date: ? 10/23/19 17 ? Provider: MARY BRIGGS ELECTRICAL ENGINEER MEP Copy to: ? Final Report SPECIMEN ADEQUACY ? Satisfactory for Evaluation - transformation zone component present GENERAL CATEGORIZATION ? Negative for Intraepithelial Lesion or Malignan cy ?? Specimen/Source: ??Pap Test, Cervix, ThinPrep Imaging System with manual evaluation Document reviewed and electronically signed by: ? Megha Greene, CT(ASCP) ? Report ??Date: 10/30/2016 13:01 HPV with Pap Test ? Date Ordered: ? 10/30/2016 ? Status: ?? Signed Out ?Date Complete: ? 10/31/2016 ? By: ??Sy stem Interface ? Date Reported: ? 10/31/2016 ? Interpretation RESULT: Negative for HPV. No E6 or E7 mRNA is detected from HPV types 16,18,31,3 3,35, 39,45,51,52,56,58,59,66, and 68 by vertical mill operator media umm amplification. Comments Document reviewed and electronically signed by: ? System Interface ? Report date: 10/31/2016 By the signature above, the attending physician certif ies that he/she has personally conducted a gross and/or microscopic examin ation of the described specimens and rendered or confirmed the above diagnosi s. End of Report Specimen Performing Organization Address City/State/ZIP Code Phon e Number [facility] [address] [place] [address] SERVICES documented in this encounter Visit Diagnoses Not on filedocumented in this encounter Care Teams Mud Tank Operator Relationship Specialty Start Date End Date Unknown, Provider, PCP - General 10/22/16 08/04/19 documented as of this encounter
--- OUTSIDE RECORDS SUMMARY | 2021-09-13 13:16 | XMS_ITS | Clinical Summary ---
:1985 Author Organization [facility] Address [address] [place] [address] Care Team Providers Name Role Phone Comfort Urban Primary Care Provider Social History Tobacco Use Types Packs/Day Years Used Date Never Assessed Sex Assigned at Date Recorded Not on file Plan of Treatment Not on file Insurance Payer Benefit Plan Subscriber ID Effective Phone Address Typ e / Group Dates MEDICAID ACO MEDICAID ACO [id number] 2021-Pres [phone] [address] [place] [address], [place] [address] Care Teams Centrifugal Wax Molder Relationship Specialty Start Date End Date Comfort Urban FNP PCP - General 08/05/19 [place] [address]
--- OUTSIDE RECORDS SUMMARY | 2021-09-13 13:16 | XMS_ITS | Encounter Summary ---
:1985 Author Organization [facility] Address [address] [place] [address] Care Team Providers Name Role Phone Unknown, Provider Primary Care Provider Comfort Urban Primary Care Provider Encounter Details Date Type Department Care Team Description 08/03/2019 Lab Requisition [facility] Outr Resulting Lab, Pathology & Laboratory Provider [facility] [address], [place] [id number] Social History Tobacco Use Types Packs/Day Years Used Date Never Assessed Sex Assigned at Date Recorded Not on file documented as of this encounter Plan of Treatment Not on filedocumented as of this encounter Procedures Procedure Name Priority Date/Time Associated Diagnosis Comme nts COVID-19 TEST [facility] Today 08/03/2019 9:08 EDT LAB PCR COVID-19 TESTING Routine 08/03/2019 9:08 EDT Resu lts for this procedure are i n the results section. documented in this encounter Results COVID-19 TEST [facility] PCR (08/03/2019 9:08 EDT) Specimen Swab - Entire nasopharynx (body structur e) Performing Organization Address City/State/ZIP Code Phon e Number [facility] [address] [place] [address] SERVICES COVID-19 TESTING (08/03/2019 9:08 EDT) COVID-19 rt-PCR Negative Negative [facility] Result Comment: [facility] LAB[facility]ORY This test has not been FDA c leared or approved. This test has been authorized by FDA under an EUA for use by authorized laboratories. This test has been authorized only for detection of nucleic acid fro SERVICES m 2019-nCoV, not for any oth er viruses or pathogens. This test is only authorized for the duration of the declaration that circumstances exist justifying the authorization of emergency use of in vitro d iagnostic tests for detectio n and/or diagnosis of 2019-nCoV under section 564(b)(1) of Act, 21 U.S.C ?? 360bbb-3(b) (1), unless the authorization is terminated or revoked sooner. Negative results do not prec lude 2019-nCoV infection and should not be used as the sole basis for treatment or other patient management decisions. Negative results must be combined with clinical observa tions, patient history, and epidemiological informatio n. Performed on the [employer] Fusion instrument Performing Lab [place] [facility] Lab [facility] SERVICES Specimen Swab - Entire nasopharynx (body structur e) Performing Organization Address City/State/ZIP Code Phon e Number [facility] [address] [place] [address] SERVICES documented in this encounter Visit Diagnoses Not on filedocumented in this encounter Care Teams Radio Time Sales Supervisor Relationship Specialty Start Date End Date Unknown, Provider, PCP - General 10/22/16 08/04/19 Comfort Urban FNP PCP - General 08/05/19 [address] [place] [address] documented as of this encounter
--- OUTSIDE RECORDS SUMMARY | 2021-09-13 13:16 | XMS_ITS | Encounter Summary ---
:1985 Author Organization [facility] Address [address] [place] [address] Care Team Providers Name Role Phone Comfort Urban SHANICE Primary Care Provider Encounter Details Date Type Department Care Team Description 08/05/2019 Lab Requisition [facility] Cassie Alcocer, En counter for other Pathology & MD general examination Laboratory Medicine [address] [place] [id number] Social History Tobacco Use Types Packs/Day Years Used Date Never Assessed Sex Assigned at Date Recorded Not on file documented as of this encounter Plan of Treatment Not on filedocumented as of this encounter Procedures Procedure Name Priority Date/Time Associated Diagnosis Comme nts SURGICAL PATHOLOGY Today 08/05/2019 9:40 EDT Encounter for o ther Results for this general examination procedur e are in the results section. documented in this encounter Results SURGICAL PATHOLOGY (08/05/2019 9:40 EDT) Final Diagnosis A. FALLOPIAN TUBE, RIGHT, SALPINGECTOMY: [facility] Electronically - Acute and chronic salpingitis. CENTER signed by Nelsy, - Paratubal cyst. LABORATORY Johanna Cortez on SERVICES 08/07/2019 at 155 9 B. FALLOPIAN TUBE, LEFT, SALPINGECTOMY: - Acute and chronic salpingitis. Attestation There was significant [facility] Electr onically resident/fellow CENTER signed by Ce duncan, involvement in the LABORATORY Jany Thrasher MD on diagnostic evaluation SERVICES 08/07/19 20 at 1559 of this case. By the signature below, the attending physician certifies that they have personally conducted a gross and/or microscopic examination of the described specimens and rendered or confirmed the above diagnosis. Clinical History Desire for permanent [facility] LABORATORY SERVICES Gross Description A. Received in formalin labe lled with proper patient identification (initials M, L) and right fallopian tube is a tortuous fallopian tube, 5.0 cm in length and ranging from 0.5 to 1.2 cm in diameter. [facility] The distal tube shows an int act 1.1 cm in diameter clear fluid-filled paratubal cyst. The serosal surface is without adhesions. Sections show an intact wall and pinpoint lumen. Typewriter Aligner sections a CENTER re submitted to include the entire distal end and two central cross sections in A1-A2. LABORATORY SERVICES B. Received in formalin labe lled with proper patient identification (initials M, L) and left fallopian tube is a slightly tortuous fallopian tube, 5.0 cm in length and ranging from 0.6 to 1.1 cm in di ameter. The serosal surfaces without adhesions. Sections show an intact wall and pinpoint lumen. Typewriter Aligner sections are submitted to include the entire distal end and two central cross sections in B1-B2. Cindy Smith 08/06/2019 12:34 Resident/Fellow: Evan Jackson MD [facility] SERVICES Scanned Images [facility] SERVICES Specimen Tissue - Entire fallopian tube (body str ucture) Tissue specimen (specimen) - Entire fall opian tube (body structure) Performing Organization Address City/State/ZIP Code Phon e Number [facility] [address] [place] [address] SERVICES documented in this encounter Visit Diagnoses Diagnosis Encounter for other general examination documented in this encounter Care Teams Light Armored Vehicle Officer Relationship Specialty Start Date End Date Comfort Urban FNP PCP - General 08/05/19 [address] [facility], [place] [id number] documented as of this encounter
--- NOTE | 2021-09-13 13:48 | W.ED.GENAD ---
Discharge Plan Disposition Patient Disposition: HOME Condition: Stable Discharge Details Clinical Impression: Left lumbar radiculopathy Primary Care Provider: Comfort Urban ED Provider: Maria Del Carmen Cunha Home Meds and New Rx's Prescriptions: New dexamethasone [Decadron] 4 mg tablet 4 mg PO DAILY Qty: 6 0RF Rx Instructions: take 1 table day 1-5, then half tablet day 6/7 oxycodone 5 mg capsule 5 mg PO BID PRNQty: 6 0RF Continued cbd oil 0.75 PO BID Label Comments: 3/4 dropper morning and night citalopram 20 mg tablet 40 mg PO DAILY (DME) Aerochamber MV spacer See Dose Instructions .ROUTE .MEDSUPPLY Qty: 1 Rx Instructions: As directed albuterol sulfate 90 mcg/actuation aerosol powdr breath activated 1 inh IH Q4H Flovent HFA 110 mcg/actuation HFA aerosol inhaler 2 puff IH BID meloxicam 15 mg tablet 15 mg PO DAILY aripiprazole 2 mg Tablet 2 mg PO DAILY topiramate 200 mg tablet 100 mg PO HS Label Comments: TAKE 1 TABLET BY MOUTH TWICE DAILY divalproex [Depakote] 250 mg tablet,delayed release (DR/EC) See Rx Instructions .ROUTE .COMPLEX Qty: 30 0RF Rx Instructions: Please take 250mg in the AM and 500mg in the evenings. clobazam 10 mg tablet 20 tab PO HS Label Comments: TAKE 1 TABLET BY MOUTH EVERY EVENING atorvastatin [Lipitor] 20 MG tablet 20 mg PO HS Discharge Instructions Additional Instructions: light stretching no lifting >5lbs follow-up with your spine doctor take decadron as prescribed tylenol every 6 hours as needed for pain oxycodone is addictive, please use caution while taking this medication return with new or worsening complaints Stand Alone Forms: Work Release Referrals: Comfort Urban [Primary Care Provider] - Discharge Data Discharge Date/Time-TO BE ENTERED AT DEPARTURE: 09/13/21 15:30 Medical Decision Making MRI: 1. The main findings are at the L4-5 level where there is central subligamentous disc protrusion and a small left-sided disc protrusion superimposed upon annular bulging.? These contact the thecal sac but there is no prominent central canal stenosis.? There is an element of bilateral foraminal stenosis, as described above. 2. Other levels appear unremarkable. 3. Please note that if this patient is ever to be an operative candidate then plain films are recommended for correlated purposes so that 1 does not operate on the wrong-incorrect level. Patient placed on steroids Ambulatory with antalgic but steady gait Neurologically intact aside from mildly diminished sensation Prescription for small amount of opiate analgesia Risk of addiction reviewed Return precautions discussed and patient expressed understanding MRI results reviewed and case discussed with Dr. Winslow, radiologist Medical Records Medical records reviewed: Yes I reviewed the patient's medical records. Lab Data Lab results reviewed: Yes I reviewed the patient's lab results. HPI General Date/Time Provider Initiated Documentation: 09/13/21 13:19. HPI Narrative: This 35-year-old female presents with an history of herniated disc to lumbar spine. She states she was lifting today and her pain worsened and she had difficulty feeling bilateral large she denies any groin numbness or changes in bowel or bladder. She denies any fever or chills. The back she was lifting was approximately 2 pounds per patient. She denies any radiating pain. She denies any abdominal pain. She denies any chance of . She denies history of IV drug abuse she had an injection to her lower back May of this year. She follow-up with [facility] neurology reports Related Data Home Medications Medication Instructions Recorded Confirmed atorvastatin 20 mg tablet (Lipitor) 20 mg PO HS 06/25/17 05/03/21 albuterol sulfate 90 mcg/actuation 1 inh inhalation Q4H 05/29/18 05/03/21 breath activated powder inhaler cbd oil 0.75 PO BID 05/29/18 08/19/19 citalopram 20 mg tablet 40 mg PO DAILY 05/29/18 09/13/21 fluticasone propionate 110 2 puff inhalation BID 05/29/18 09/13/21 mcg/actuation HFA aerosol inhaler (Flovent HFA) inhalational spacing device #1 ea 05/29/18 08/19/19 (Aerochamber MV spacer) aripiprazole 2 mg tablet 2 mg PO DAILY 09/01/18 05/03/21 meloxicam 15 mg tablet 15 mg PO DAILY 04/28/19 09/13/21 divalproex 250 mg tablet,delayed See Rx Instructions .Route 05/03/21 09/13/21 release (Depakote) .COMPLEX #30 tabs topiramate 200 mg tablet 100 mg PO HS 05/03/21 09/13/21 clobazam 10 mg tablet 20 tab PO HS 09/13/21 09/13/21 dexamethasone 4 mg tablet 4 mg PO DAILY #6 tabs 09/13/21 (Decadron) oxycodone 5 mg capsule 5 mg PO BID PRN #6 caps 09/13/21 Previous Rx's Medication Instructions Recorded divalproex 250 mg tablet,delayed See Rx Instructions .Route 05/03/21 release (Depakote) .COMPLEX #30 tabs dexamethasone 4 mg tablet 4 mg PO DAILY #6 tabs 09/13/21 (Decadron) oxycodone 5 mg capsule 5 mg PO BID PRN #6 caps 09/13/21 Allergies Allergy/AdvReac Type Severity Reaction Status Date / Time No Known Allergies Allergy Unverified 09/13/21 13:06 General Stated Complaint: Orthopedic GM: 4 Review of Systems All systems reviewed & are unremarkable except as noted in HPI and below PFSH All Active Problems (Updated 09/13/21 @ 15:15 by JORDY Adan) Left lumbar radiculopathy (Acute) Encounter for IUD removal (Acute) Hx of tubal ligation (Chronic) Knee pain, bilateral (Chronic) Generalized tonic-clonic seizure (Chronic) Onset 28 years old. Last seizure 2018. Neurologist at [facility] 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 Contraception management (Acute) 05/[address] Paperwork for tubal sterilization initiated. Sciatica (Acute) Hypertension (Chronic) Depression (Chronic) Migraine headache (Chronic) Hyperlipidemia (Chronic) Asthma (Chronic) Fibromyalgia (Chronic) Treated with marijuana. Patient does not have a medical marijuana card Medical History Grand mal seizure disorder Last seizure August 2018. History of pre-eclampsia Tremor of both hands secondary to Depakote, per pt. 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 Has routine cardiology follow-up Dr. Rai in [place]. Pt. states there is still a slight hole but is monitored Social History Smoking/Tobacco Use Status: Never Smoking risk assessment performed?: Yes Alcohol Intake: never Drug use: Daily Substance use type: marijuana Household members: spouse, children and other Details: Audrey-Vinod Francisco-Magaly, D-Katia Number of Children: 2 Do you need help understanding health information?: Rarely current occupation: Works at [employer] Sexually active: Yes Do you feel safe at home: Yes Do you feel safe in your relationship?: Yes Additional Social history: Daughter Magaly special-needs secondary to difficulty speaking. Katia without issues both children attend [employer] History History 4 Para 2 Hx # Term Pregnancies Multiple births Hx # Pregnancies Ectopic pregnancies AB induced 2 Hx Number of Living Children AB spontaneous Exam Const General: cooperative and comfortable Orientation: alert and oriented x3 Eyes Pupils: PERRL Resp Effort & Inspection: normal respiratory effort Auscultation: clear to auscultation bilaterally Cardio Rate: regular rate Rhythm: regular rhythm GI Other: No abdominal tenderness, no CVA tenderness Back/Spine/Pelvis Other: Tenderness to palpation to lumbar spine Skin General skin exam: no rashes or lesions noted Neuro General: patient alert and patient oriented x3 Other: Antalgic gait, DTRs intact bilateral lower extremities Mildly diminished sensation to bilateral feet, strength intact bilateral lower extremities Negative Babinski bilaterally Extrem Other: Distal pulses intact Course Vital Signs Vital signs: Vital Signs Temperature 36.8 C 09/13/21 13:03 Pulse 71 09/13/21 13:03 Respiratory Rate 16 09/13/21 13:03 Blood Pressure 140/80 09/13/21 13:03 Pulse Oximetry 100 09/13/21 13:03 Temperature 36.8 C 09/13/21 13:03 Temperature Source Temporal Artery Scan 09/13/21 13:03 Pulse 71 09/13/21 13:03 Respiratory Rate 16 09/13/21 13:03 Respiratory Effort 09/13/21 13:05 Blood Pressure 140/80 09/13/21 13:03 Blood Pressure Position Sitting 09/13/21 13:03 Pulse Oximetry 100 09/13/21 13:03 Oxygen Delivery Method Room Air 09/13/21 13:03 Oxygen Flow Rate 0 09/13/21 13:03 Pain Level 9 09/13/21 13:03
[2021-09-13] MEDS: Dexamethasone 4 MG/ML VIAL IVP (13:49)
[2021-09-13] MEDS: MORPHine 10 MG/ML VIAL 6 MG IVP (13:49)
--- NOTE | 2021-09-13 15:58 | PDOC.ERCMPRO ---
- If Service Date Differs Date of service: 09/13/21 Time of Service: 15:58 Care Management Progress Note Pt reports past Hx of of hospitalization at [facility] for depression and suicidality. pt reports no current SI or significnt depression symptoms. Pt notes she has a list of coping mechanisms she uses effectively. Pt states she uses cannabis to self medicate anxiety and help with sleep. Pt reports no other substance use. We discussed pros and cons of medicinal use of cannabis and Pt was encouraged to continue this discussion with her PCP and her neurologist. Pt states her PCP would support medicinal marijuana use but her neurologist cecilia disagree. Pt reports she has a seizure disorder and medications are complicated. Pt reports many stressors in her daily life including work, family problems and transportation. Pt is aware of the resources available for crisis and support. Pt was offerred afirmation for the progress she has made and encouraged to continue Tx with her providers. We discussed mindfulness practices and Pt notes learning some strategies around living one day at a time through her mother's experience in recovery through .
== END 2021-09-13 15:30 | disposition home or self-care (01) ==
PROVIDERS: Emergency Provider Physician Assistant; PCP Nurse Practitioner Family
DX: M54.16 Radiculopathy, lumbar region (principal)
CPT/HCPCS: 96374; 96375; 99284; 72148; J1100; J2270

== ENCOUNTER 2021-09-19 05:00 | Emergency (ER) | payer MEDICAID, SELFPAY ==
[2021-09-19 05:16] VITALS: BP 124/77; PULSE 69; RESP 18; TEMP 37.1; O2SAT 98
--- NOTE | 2021-09-19 05:27 | ED.GENADUL_ITS ---
Discharge Plan Disposition Patient Disposition: STILL A PATIENT Condition: Stable Discharge Details Clinical Impression: Back pain Primary Care Provider: [facility] ED Provider: Julian Zapata Home Meds and New Rx's Prescriptions: No Action cbd oil 0.75 ml PO BID Label Comments: 3/4 dropper morning and night citalopram 20 mg tablet 40 mg PO DAILY (DME) Aerochamber MV spacer See Dose Instructions .ROUTE .MEDSUPPLY Qty: 1 Rx Instructions: As directed albuterol sulfate 90 mcg/actuation aerosol powdr breath activated 1 inh IH Q4H Flovent HFA 110 mcg/actuation HFA aerosol inhaler 2 puff IH BID meloxicam 15 mg tablet 15 mg PO DAILY aripiprazole 2 mg Tablet 2 mg PO DAILY topiramate 200 mg tablet 100 mg PO HS Label Comments: TAKE 1 TABLET BY MOUTH TWICE DAILY divalproex [Depakote] 250 mg tablet,delayed release (DR/EC) See Rx Instructions .ROUTE .COMPLEX Qty: 30 0RF Rx Instructions: Please take 250mg in the AM and 500mg in the evenings. clobazam 10 mg tablet 20 tab PO HS Label Comments: TAKE 1 TABLET BY MOUTH EVERY EVENING dexamethasone [Decadron] 4 mg tablet 4 mg PO DAILY Qty: 6 0RF Rx Instructions: take 1 table day 1-5, then half tablet day 6/7 oxycodone 5 mg capsule 5 mg PO BID PRNQty: 6 0RF atorvastatin [Lipitor] 20 MG tablet 20 mg PO HS gabapentin 100 mg capsule 1 cap PO TID Label Comments: TAKE 1 CAPSULE BY MOUTH THREE TIMES DAILY Medical Decision Making This is a pleasant 35-year-old female with a past medical history of seizures, fibromyalgia, and lumbar radiculopathy, who presents today for back pain. On 09/13/2021 patient was seen in the ER as she had notable worsening of her chronic back pain after lifting some heavy objects. MRI was performed and demonstrates central subligamentous disc protrusion and a small left disc protrusion superimposed upon the annular bulging. These contact the thecal sac but there is no prominent central canal stenosis. Patient was discharged home on steroids, and NSAIDs, and had a spine referral placed at [facility]. Patient took 2 days off, and then has been working for the last 2 days. She has noticed a notable increase in her symptoms and pain over the last 48 hours. Over the last 48 hours she is also noted mild typical episodes of urinary leaking, slight difficulty holding stool in, and also diminished plantarflexion strength in the left foot, as well as increased tingling in the groin on the left. Patient denies any abdominal pain, vomiting or diarrhea. Patient still admits to notable numbness and tingling on the left lower leg going all the way down to the toes which is worsening from before. Physical exam demonstrates diminished sensation on the left medial thigh, diminished sensation on the left and right lateral thighs. Intact rectal tone though slightly weak. Notably diminished left plantar flexion strength of the left foot. Normal strength of the right. Reflexes otherwise intact. Although the patient does not demonstrate overt evidence of cauda equina syndrome at this time, her symptoms are certainly concerning for worsening compression on the thecal sac. With the patient's intermittent urinary incontinence, diminished sensation in the left groin, and increased weakness in plantarflexion the left foot, I am certainly concerned. No MRI is currently available right now. We will contact [facility] spine and reviewed the images performed few days ago, and discussed the patient's current symptoms. We will give IM morphine for pain control. 6:23 AM I discussed the case with [facility] spine surgery Dr Arredondo, based on the patient's new symptoms, or change in symptomatology and her previous MRI, he recommends repeat MRI. We will order this, and control her pain. Patient will be signed out to my colleague Dr. Mcdaniel for follow-up on imaging. HPI General Date/Time Provider Initiated Documentation: 09/19/21 05:02 . HPI Narrative: This is a pleasant 35-year-old female with a past medical history of seizures, fibromyalgia, and lumbar radiculopathy, who presents today for back pain. On 09/13/2021 patient was seen in the ER as she had notable worsening of her chronic back pain after lifting some heavy objects. MRI was performed and demonstrates central subligamentous disc protrusion and a small left disc protrusion superimposed upon the annular bulging. These contact the thecal sac but there is no prominent central canal stenosis. Patient was discharged home on steroids, and NSAIDs, and had a spine referral placed at [facility]. Patient took 2 days off, and then has been working for the last 2 days. She has noticed a notable increase in her symptoms and pain over the last 48 hours. Over the last 48 hours she is also noted mild typical episodes of urinary leaking, slight difficulty holding stool in, and also diminished plantarflexion strength in the left foot, as well as increased tingling in the groin on the left. Patient denies any abdominal pain, vomiting or diarrhea. Patient still admits to notable numbness and tingling on the left lower leg going all the way down to the toes which is worsening from before. Related Data Home Medications Medication Instructions Recorded Confirmed atorvastatin 20 mg tablet (Lipitor) 20 mg PO HS 06/25/17 09/19/21 albuterol sulfate 90 mcg/actuation 1 inh inhalation Q4H 05/29/18 09/19/21 breath activated powder inhaler cbd oil 0.75 ml PO BID 05/29/18 09/19/21 citalopram 20 mg tablet 40 mg PO DAILY 05/29/18 09/19/21 fluticasone propionate 110 2 puff inhalation BID 05/29/18 09/19/21 mcg/actuation HFA aerosol inhaler (Flovent HFA) inhalational spacing device #1 ea 05/29/18 08/19/19 (Aerochamber MV spacer) aripiprazole 2 mg tablet 2 mg PO DAILY 09/01/18 09/19/21 meloxicam 15 mg tablet 15 mg PO DAILY 04/28/19 09/19/21 divalproex 250 mg tablet,delayed See Rx Instructions .Route 05/03/21 09/19/21 release (Depakote) .COMPLEX #30 tabs topiramate 200 mg tablet 100 mg PO HS 05/03/21 09/19/21 clobazam 10 mg tablet 20 tab PO HS 09/13/21 09/19/21 dexamethasone 4 mg tablet 4 mg PO DAILY #6 tabs 09/13/21 09/19/21 (Decadron) oxycodone 5 mg capsule 5 mg PO BID PRN #6 caps 09/13/21 09/19/21 gabapentin 100 mg capsule 1 cap PO TID 09/19/21 09/19/21 Previous Rx's Medication Instructions Recorded divalproex 250 mg tablet,delayed See Rx Instructions .Route 05/03/21 release (Depakote) .COMPLEX #30 tabs dexamethasone 4 mg tablet 4 mg PO DAILY #6 tabs 09/13/21 (Decadron) oxycodone 5 mg capsule 5 mg PO BID PRN #6 caps 09/13/21 Allergies Allergy/AdvReac Type Severity Reaction Status Date / Time No Known Allergies Allergy Unverified 09/19/21 05:17 General Stated Complaint: Nk/Back Pain GM: 3 Review of Systems All systems reviewed & are unremarkable except as noted in HPI and below PFSH All Active Problems (Updated 09/19/21 @ 06:26 by Julian Zapata DO) Left lumbar radiculopathy (Acute) Back pain (Acute) Encounter for IUD removal (Acute) Hx of tubal ligation (Chronic) Knee pain, bilateral (Chronic) Generalized tonic-clonic seizure (Chronic) Onset 28 years old. Last seizure 2018. Neurologist at [facility] 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 Contraception management (Acute) 05/[address] Paperwork for tubal sterilization initiated. Sciatica (Acute) Hypertension (Chronic) Depression (Chronic) Migraine headache (Chronic) Hyperlipidemia (Chronic) Asthma (Chronic) Fibromyalgia (Chronic) Treated with marijuana. Patient does not have a medical marijuana card Medical History Grand mal seizure disorder Last seizure August 2018. History of pre-eclampsia Tremor of both hands secondary to Depakote, per pt. 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 Has routine cardiology follow-up Dr. Rai in [place]. Pt. states there is still a slight hole but is monitored Social History Smoking/Tobacco Use Status: Never Smoking risk assessment performed?: Yes Alcohol Intake: never Drug use: Daily Substance use type: marijuana Details: Marijuana daily. CBD oil as needed. Household members: spouse, children and other Details: Anirudh Swann D- Samantha Number of Children: 2 Do you need help understanding health information?: Rarely current occupation: Works at [employer] Sexually active: Yes Do you feel safe at home: Yes Do you feel safe in your relationship?: Yes Additional Social history: Daughter Magaly special-needs secondary to difficulty speaking. Katia without issues both children attend [employer] History History 4 Para 2 Hx # Term Pregnancies Multiple births Hx # Pregnancies Ectopic pregnancies AB induced 2 Hx Number of Living Children AB spontaneous Exam Narrative Exam Narrative: 1.Const: Well-nourished, Well-developed, appearing stated age 2.Eyes: PERRL, no conjunctival injection, and symmetrical lids. 3.ENT: Atraumatic external nose and ears. Moist MM. Neck: Symmetric, trachea midline, No thyromegaly. 4.CVS: +S1/S2, No murmurs or gallops. Peripheral pulses 2+ and equal in all extremities. Brisk capillary refill in all extremities. 5.RESP: Unlabored respiratory effort. Clear to auscultation bilaterally. No wheezes rales or rhonchi 6.GI: Soft, Nontender/Nondistended, No hepatosplenomegaly. No guarding or rebound. 7.MSK: Normocephalic/Atraumatic, Extremities w/o deformity or ttp No cyanosis or clubbing,. Patient walks very slow and deliberately secondary to the back pain. Exam demonstrates subjective diminished sensation on the lateral aspects of her legs bilaterally, but also diminished sensation and tingling in the left groin, with no change in the right groin. Rectal tone appears present on exam, minimally diminished. No cervical thoracic or lumbar spine tenderness until the L4-L5 region where there is mild midline tenderness and. +2 patellar reflexes bilaterally. Equal dorsiflexion strength of each toe however notably diminished plantar flexion strength on the left foot. Normal strength for flexion extension at the hip, and knee. Dorsalis pedis and posterior tibial pulse +2 bilaterally. 8.Skin: Warm, Dry. No rashes or lesions. 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 Sensation grossly intact, no focal neurologic deficits. 10.Psych: (AAO) x3. Appropriate mood and affect Course Vital Signs Vital signs: Vital Signs Temperature 37.1 C 09/19/21 05:16 Pulse 69 09/19/21 05:16 Respiratory Rate 18 09/19/21 05:16 Blood Pressure 124/77 09/19/21 05:16 Pulse Oximetry 98 09/19/21 05:16 Temperature 37.1 C 09/19/21 05:16 Temperature Source Skin 09/19/21 05:16 Pulse 69 09/19/21 05:16 Respiratory Rate 18 09/19/21 05:16 Respiratory Effort Non-Labored 09/19/21 05:21 Blood Pressure 124/77 09/19/21 05:16 Blood Pressure Position Sitting 09/19/21 05:16 Pulse Oximetry 98 09/19/21 05:16 Oxygen Delivery Method Room Air 09/19/21 05:16 Oxygen Flow Rate 0 09/19/21 05:16 Pain Level 10 09/19/21 05:21
[2021-09-19] MEDS: MORPHine 4 MG/ML SYR IM (05:31)
--- NOTE | 2021-09-19 07:52 | DI.MRI_ITS ---
Exam(s) MR LUMBAR SPINE WO EXAM: MR LUMBAR SPINE WO CLINICAL HISTORY: worsening back pain, r/o quada equina. TECHNIQUE: Multiplanar multisequence MRI of the Lumbar spine was performed. COMPARISON: MR MR LUMBAR SPINE WO from 09/13/2021 FINDINGS: There has apparently been no interventional procedure since prior MRI scan 6 days ago Conus medullaris is at normal level. There is no evidence of conus mass nor subjacent clumping of in trathecal nerve roots to suggest arachnoiditis. The distal thecal sac appears unremarkable.There is no evidence of Tarlov intrasacral cysts nor other significant findings within the sacral canal Bones:There are no fractures nor ominous osseous lesions in the lumbar vertebral bodies and visualize d sacrum. Benign-appearing intraosseous hemangioma is again noted in the right side of L1 vertebral body. This appears stable. No other bone lesions identified. With respect to the individual levels... T12-L1: Unremarkable L1-2: Normal disc height and signal. No disc herniation nor central canal stenosis.No foraminal steno sis L2-3: Normal disc height. No disc herniation nor central canal stenosis.No foraminal stenosis.No face t arthropathy. L3-4: Normal disc height. No disc herniation or central canal stenosis.No foraminal stenosis.No face t arthropathy. L4-5: Preserved disc height and relatively preserved disc hydration signal. There is annular bulging at this level again noted and superimposed disc protrusions located central subligamentous and poste rolateral left and right.. Results in mild foraminal stenosis. There is annular bulging into the fl oor both exiting neural foramina causing mild bilateral foraminal stenosis. Also mild central spinal canal stenosis with the annular bulging contacting the anterior thecal sac. There are advanced dege nerative changes in the facet joints at this level. No listhesis. L5-S1: Normal disc height and signal. No disc herniation or central canal stenosis. No foraminal st enosis. Mild facet degenerative changes. Soft tissues: paraspinal soft tissues appear unremarkable. IMPRESSION: 1. Main findings are again noted to be at L4-5 level where there are disc protrusions, both subligame ntous as well as posterolateral right and left and extending into the floor both exiting neural scott ramón. Only mild foraminal stenosis. 2. Other levels compared new to appear unremarkable. DATA REPOSITORY:
--- NOTE | 2021-09-19 08:02 | ED.PROG_ITS ---
Date of service: 09/19/21 Time of Service: 08:00 Medical Decision Making 0800 --please see Dr. Zapata's note for initial presentation, exam and plan. Case endorsed to follow-up on MRI results and to discuss further with [facility] spine. 35-year-old female with a history of hypertension, hyperlipidemia, migraines, seizures, asthma, anxiety, depression, PTSD and fibromyalgia who presents with low back and left hip pain. Patient was seen here 1 week ago for similar pain and referred for lumbar spine MRI which noted IMPRESSION: 1. The main findings are at the L4-5 level where there is central subligamentous disc protrusion and a small left-sided disc protrusion superimposed upon annular bulging.? These contact the thecal sac but there is no prominent central canal stenosis.? There is an element of bilateral foraminal stenosis, as described above. 2. Other levels appear unremarkable. 3. Please note that if this patient is ever to be an operative candidate then plain films are recommended for correlated purposes so that 1 does not operate on the wrong-incorrect level. Patient states her pain has been improved since morphine here in the ED. There was concern that she admitted to urinary incontinence at work the other day which she states she has had intermittently over the past few months. She reportedly had slightly diminished rectal tone but no saddle anesthesia. Dr. Zapata reported that she had mild left foot drop but this is not evident on my exam. Her muscle strength is 5/5 bilateral lower extremities with normal distal pulses and reflexes. MRI Lumbar spine notes at the L4-5 level where there is central subligamentous disc protrusion and a small left-sided disc protrusion superimposed upon annular bulging.? These contact the thecal sac but there is no prominent central canal stenosis.? There is an element of bilateral foraminal stenosis. Will give a dose of valium and contact [facility] spine for review. 0920 --Case discussed with [facility] spine --Dr. Charly Tripathi reviewed the lumbar spine images and sees no significant change compared to her previous MRI and no evidence of cauda equina syndrome. Recommend treatment with steroids if appropriate and follow-up with pain management and physical therapy. We will follow-up with her in the next 2 weeks. We will contact her regarding this follow-up appointment. Prescriptions for steroids, muscle relaxers and oxycodone sent electronically to her pharmacy. Usual and customary return precautions given prior to discharge. Medical Records Medical records reviewed: Yes I reviewed the patient's medical records. Medical records narrative: 09/13/21 MR LUMBAR SPINE WO CLINICAL HISTORY: ? herniated disc, decreased sensation to bilateral l.? TECHNIQUE:? Multiplanar multisequence MRI of the Lumbar spine was performed. COMPARISON:? There are no previous plain films available time this MRI interpretation.? FINDINGS: Five lumbar vertebrae are presumed. Conus medullaris is at normal level.? There is no evidence of conus mass nor subjacent clumping of intrathecal nerve roots to suggest arachnoiditis.? The distal thecal sac appears to terminate slightly higher than typical, at lower L5 level .There is no evidence of Tarlov intrasacral cysts nor other significant findings within the sacral canal Bones:There are no fractures nor ominous osseous lesions in the lumbar vertebral bodies and visualized sacrum.? There is a small benign intraosseous hemangioma in the L1 vertebral body, right of center.? There are no ominous osseous lesions. With respect to the individual levels... T12-L1: Unremarkable L1-2: Normal disc height and signal. No disc herniation nor central canal stenosis.No foraminal stenosis L2-3: Normal disc height. No disc herniation nor central canal stenosis.No foraminal stenosis.No facet arthropathy. L3-4: Normal disc height.? No disc herniation or central canal stenosis.No foraminal stenosis.No facet arthropathy. L4-5: Normal disc height.? Mildly decreased disc hydration signal.? There is annular bulging at this level with a superimposed central subligamentous disc protrusion.? This indents the thecal sac.? There is also an additional posterolateral-lateral left small disc protrusion at the level of the floor of the exiting left neural foramen.? However, there is no prominent central canal stenosis.? There is mild bilateral foraminal stenosis .? On the right side this is mostly related to short AP dimensions of the pedicles and some degenerative change in the facet joint.? On the left side similar findings plus the superimposed disc protrusion. L5-S1: Normal disc height and signal.? No disc herniation.? No canal stenosis.? No foraminal stenosis mild facet degenerative.? Soft tissues:? paraspinal soft tissues appear unremarkable. IMPRESSION: 1. The main findings are at the L4-5 level where there is central subligamentous disc protrusion and a small left-sided disc protrusion superimposed upon annular bulging.? These contact the thecal sac but there is no prominent central canal stenosis.? There is an element of bilateral foraminal stenosis, as described above. 2. Other levels appear unremarkable. 3. Please note that if this patient is ever to be an operative candidate then plain films are recommended for correlated purposes so that 1 does not operate on the wrong-incorrect level. Imaging Data Radiologic Study: Radiologist's impression: ?MR LUMBAR SPINE WO CLINICAL HISTORY: ? worsening back pain, r/o quada equina.? TECHNIQUE:? Multiplanar multisequence MRI of the Lumbar spine was performed. COMPARISON:? MR MR LUMBAR SPINE WO from 09/13/2021 FINDINGS: There has apparently been no interventional procedure since prior MRI scan 6 days ago Conus medullaris is at normal level.? There is no evidence of conus mass nor subjacent clumping of intrathecal nerve roots to suggest arachnoiditis.? The distal thecal sac appears unremarkable.There is no evidence of Tarlov intrasacral cysts nor other significant findings within the sacral canal Bones:There are no fractures nor ominous osseous lesions in the lumbar vertebral bodies and visualized sacrum.? Benign-appearing intraosseous hemangioma is again noted in the right side of L1 vertebral body.? This appears stable.? No other bone lesions identified. With respect to the individual levels... T12-L1: Unremarkable L1-2: Normal disc height and signal. No disc herniation nor central canal stenosis.No foraminal stenosis L2-3: Normal disc height. No disc herniation nor central canal stenosis.No foraminal stenosis.No facet arthropathy. L3-4: Normal disc height.? No disc herniation or central canal stenosis.No foraminal stenosis.No facet arthropathy. L4-5: Preserved disc height and relatively preserved disc hydration signal.? There is annular bulging at this level again noted and superimposed disc protrusions located central subligamentous and posterolateral left and right..? Results in mild foraminal stenosis.? There is annular bulging into the floor both exiting neural foramina causing mild bilateral foraminal stenosis.? Also mild central spinal canal stenosis with the annular bulging contacting the anterior thecal sac.? There are advanced degenerative changes in the facet joints at this level.? No listhesis. L5-S1: Normal disc height and signal.? No disc herniation or central canal stenosis.? No foraminal stenosis.? Mild facet degenerative changes.? Soft tissues:? paraspinal soft tissues appear unremarkable. IMPRESSION: 1. Main findings are again noted to be at L4-5 level where there are disc protrusions, both subligamentous as well as posterolateral right and left and extending into the floor both exiting neural foramina.? Only mild foraminal stenosis. 2. Other levels compared new to appear unremarkable. Exam Const General: cooperative and no acute distress Orientation: alert, awake and oriented x3 HENMT Head: normal to inspection Mouth: oral mucosae normal Eyes General: appearance normal, both eyes and all related structures Neck Neck: normal visual inspection Resp Effort & Inspection: normal respiratory effort and able to speak in complete sentences Auscultation: clear to auscultation bilaterally Cardio Rate: regular rate Rhythm: regular rhythm GI Palpation: soft, no guarding, no hernias, no masses, not rigid and nontender Skin General skin exam: no rashes or lesions noted Neuro General: patient alert, patient awake and patient oriented x3 Motor: muscle tone normal throughout and strength 5/5 throughout Sensory Exam: no sensory deficits noted DTR's: Rt Patellar: 1+, Lt Patellar: 1+, Rt Ankle: 1+ and Lt Ankle: 1+ Plantar Reflexes: Equivocal: bilateral (negative babinski b/l ) Extrem General: normal to inspection and full ROM Other: B/L DP/PT pulses intact Psych Appearance: grossly normal Affect: normal affect Sign Out Sign Out Data: Sign Out Comment: Back pain, recent stable MRI, but now has new symptoms concerning for cord compression. Pending MRI. Follow-up and contact [facility] after MRI results. Last updated by Julian Zapata DO at 09/19/21 07:20 Discharge Plan Disposition Patient Disposition: HOME Condition: Stable Discharge Details Clinical Impression: Protrusion of lumbar intervertebral disc, Low back pain Primary Care Provider: [facility] Provider: Linda Mcdaniel Home Meds and New Rx's Prescriptions: New oxycodone 5 mg tablet 5 mg PO Q6H PRN (Reason: pain) Qty: 10 0RF prednisone 20 mg tablet See Rx Instructions .ROUTE .COMPLEX Qty: 18 0RF Rx Instructions: Take 3 tabs daily for 3 days, then 2 tabs daily for 3 days, then 1 tab daily for 3 days. methocarbamol 500 mg tablet 500 mg PO Q6H PRN (Reason: muscle spasm) Qty: 14 0RF Continued cbd oil 0.75 ml PO BID Label Comments: 3/4 dropper morning and night citalopram 20 mg tablet 40 mg PO DAILY (DME) Aerochamber MV spacer See Dose Instructions .ROUTE .MEDSUPPLY Qty: 1 Rx Instructions: As directed albuterol sulfate 90 mcg/actuation aerosol powdr breath activated 1 inh IH Q4H Flovent HFA 110 mcg/actuation HFA aerosol inhaler 2 puff IH BID meloxicam 15 mg tablet 15 mg PO DAILY aripiprazole 2 mg Tablet 2 mg PO DAILY topiramate 200 mg tablet 100 mg PO HS Label Comments: TAKE 1 TABLET BY MOUTH TWICE DAILY divalproex [Depakote] 250 mg tablet,delayed release (DR/EC) See Rx Instructions .ROUTE .COMPLEX Qty: 30 0RF Rx Instructions: Please take 250mg in the AM and 500mg in the evenings. clobazam 10 mg tablet 20 tab PO HS Label Comments: TAKE 1 TABLET BY MOUTH EVERY EVENING oxycodone 5 mg capsule 5 mg PO BID PRNQty: 6 0RF atorvastatin [Lipitor] 20 MG tablet 20 mg PO HS gabapentin 100 mg capsule 1 cap PO TID Label Comments: TAKE 1 CAPSULE BY MOUTH THREE TIMES DAILY Discontinued dexamethasone [Decadron] 4 mg tablet 4 mg PO DAILY Qty: 6 0RF Rx Instructions: take 1 table day 1-5, then half tablet day 6/7 Discharge Instructions Instructions: Lumbar Disc Herniation (ED) Additional Instructions: Your imaging today shows that there is no significant change in your previously seen lumbar disc protrusion and there are no new concerning findings. Drink plenty of fluids and get plenty of rest. Apply ice to the affected area several times daily for 20 minutes at a time. Alternate tylenol and motrin as needed and directed for pain. Prescriptions for pain medication, muscle relaxers and steroids have been sent electronically to your pharmacy. Take caution when taking the pain medication oxycodone as it can make you significantly drowsy. Do not drive or operate heavy machinery while taking oxycodone. You will be contacted by [facility] spine for a follow-up appointment in the next 2 weeks. Follow-up with pain management in the next few weeks. Return immediately to the emergency department if you develop any worsening or new concerning symptoms. Stand Alone Forms: Work Release Discharge Data Discharge Physician: Linda Mcdaniel
== END 2021-09-19 09:54 | disposition home or self-care (01) ==
PROVIDERS: Emergency Provider Physician Assistant; PCP Nurse Practitioner Family
DX: M54.50 Low back pain, unspecified (principal); M25.552 Pain in left hip; M48.061 Spinal stenosis, lumbar region without neurogenic claudication; N39.498 Other specified urinary incontinence; M51.26 Other intervertebral disc displacement, lumbar region
CPT/HCPCS: 96374; 99284; 72148; J2270

== ENCOUNTER 2021-10-09 05:57 | Emergency (ER) | payer MEDICAID, SELFPAY ==
[2021-10-09 06:08] VITALS: BP 125/71; PULSE 77; RESP 16; TEMP 36.5; O2SAT 98
--- NOTE | 2021-10-09 06:21 | W.ED.GENAD ---
Discharge Plan Disposition Patient Disposition: HOME Condition: Stable Discharge Details Clinical Impression: Pruritic erythematous rash Primary Care Provider: [facility] ED Provider: Linda Mcdaniel Home Meds and New Rx's Prescriptions: New prednisone 20 mg tablet See Rx Instructions .ROUTE .COMPLEX Qty: 12 0RF Rx Instructions: Take 3 tabs daily for 2 days, then 2 tabs daily for 2 days, then 1 tab daily for 2 days Continued cbd oil 0.75 ml PO BID Label Comments: 3/4 dropper morning and night citalopram 20 mg tablet 40 mg PO DAILY (DME) Aerochamber MV spacer See Dose Instructions .ROUTE .MEDSUPPLY Qty: 1 Rx Instructions: As directed albuterol sulfate 90 mcg/actuation aerosol powdr breath activated 1 inh IH Q4H Flovent HFA 110 mcg/actuation HFA aerosol inhaler 2 puff IH BID meloxicam 15 mg tablet 15 mg PO DAILY aripiprazole 2 mg Tablet 2 mg PO DAILY divalproex [Depakote] 250 mg tablet,delayed release (DR/EC) See Rx Instructions .ROUTE .COMPLEX Qty: 30 0RF Rx Instructions: Please take 250mg in the AM and 500mg in the evenings. clobazam 10 mg tablet 20 tab PO HS Label Comments: 10mg am, 20mg at night methocarbamol 500 mg tablet 500 mg PO Q6H PRN (Reason: muscle spasm) Qty: 14 0RF cholecalciferol (vitamin D3) [Vitamin D3] 25 mcg (1,000 unit) Capsule 1,000 unit PO DAILY Discharge Instructions Instructions: Acute Rash (ED) Additional Instructions: It is suspected that your symptoms are secondary to an allergic skin reaction or contact dermatitis. Your presentation does not appear consistent with an infection at this time. A prescription for steroids has been sent electronically to your pharmacy. Follow-up with your scheduled appointment at [facility] tomorrow. Return immediately to the emergency department if you develop any worsening or new concerning symptoms such as fever, pain, leg weakness or numbness or any other concerns. Stand Alone Forms: Work Release Discharge Data Discharge Physician: Linda Mcdaniel Medical Decision Making 35-year-old female recently diagnosed with L4-L5 disc herniation presents with persistent low back pain now with swelling of her lower legs and ankles and an itchy rash. Patient has blanching erythema to the bilateral distal lower leg which appear almost consistent with a sunburn or contact dermatitis and spares the ankles. There are no papules noted. As she has no new cauda equina symptoms and no focal deficits on exam and is neurovascularly intact with blanching erythema with pruritus, suspect allergic reaction or contact dermatitis. As she has no pain, do not suspect skin infection. Patient states she recently finished steroids for her back pain. Will treat with another course of steroids for suspected skin reaction/allergic reaction/contact dermatitis. We will give a dose of prednisone here and send a prescription electronically to her pharmacy. She is asked to follow-up with her appointment with [facility] tomorrow for her disc herniation. Usual and customary return precautions given prior to discharge. Medical Records Medical records reviewed: Yes I reviewed the patient's medical records. Medical records narrative: 09/19/21 MR LUMBAR SPINE WO CLINICAL HISTORY: ? worsening back pain, r/o quada equina.? TECHNIQUE:? Multiplanar multisequence MRI of the Lumbar spine was performed. COMPARISON:? MR MR LUMBAR SPINE WO from 09/13/2021 FINDINGS: There has apparently been no interventional procedure since prior MRI scan 6 days ago Conus medullaris is at normal level.? There is no evidence of conus mass nor subjacent clumping of intrathecal nerve roots to suggest arachnoiditis.? The distal thecal sac appears unremarkable.There is no evidence of Tarlov intrasacral cysts nor other significant findings within the sacral canal Bones:There are no fractures nor ominous osseous lesions in the lumbar vertebral bodies and visualized sacrum.? Benign-appearing intraosseous hemangioma is again noted in the right side of L1 vertebral body.? This appears stable.? No other bone lesions identified. With respect to the individual levels... T12-L1: Unremarkable L1-2: Normal disc height and signal. No disc herniation nor central canal stenosis.No foraminal stenosis L2-3: Normal disc height. No disc herniation nor central canal stenosis.No foraminal stenosis.No facet arthropathy. L3-4: Normal disc height.? No disc herniation or central canal stenosis.No foraminal stenosis.No facet arthropathy. L4-5: Preserved disc height and relatively preserved disc hydration signal.? There is annular bulging at this level again noted and superimposed disc protrusions located central subligamentous and posterolateral left and right..? Results in mild foraminal stenosis.? There is annular bulging into the floor both exiting neural foramina causing mild bilateral foraminal stenosis.? Also mild central spinal canal stenosis with the annular bulging contacting the anterior thecal sac.? There are advanced degenerative changes in the facet joints at this level.? No listhesis. L5-S1: Normal disc height and signal.? No disc herniation or central canal stenosis.? No foraminal stenosis.? Mild facet degenerative changes.? Soft tissues:? paraspinal soft tissues appear unremarkable. IMPRESSION: 1. Main findings are again noted to be at L4-5 level where there are disc protrusions, both subligamentous as well as posterolateral right and left and extending into the floor both exiting neural foramina.? Only mild foraminal stenosis. 2. Other levels compared new to appear unremarkable. HPI General Mode of arrival: ambulatory. Date/Time Provider Initiated Documentation: 10/09/21 06:06. Limitations to Documentation: no limitations. Information obtained by: patient. HPI Narrative: Patient is a 35-year-old female with a history of L4-5 disc herniation recently diagnosed on a recent ED visit presents for itchy, red and swollen rash to her bilateral lower leg for the past 2 days. Denies any pain or fever. She states she has a follow-up appointment with [facility] tomorrow for her lumbar disc herniation. She states she has been taking Tylenol and her meloxicam for her back pain. She denies any significant bowel or bladder incontinence or saddle anesthesia. Related Data Home Medications Medication Instructions Recorded Confirmed albuterol sulfate 90 mcg/actuation 1 inh inhalation Q4H 05/29/18 10/09/21 breath activated powder inhaler cbd oil 0.75 ml PO BID 05/29/18 10/09/21 citalopram 20 mg tablet 40 mg PO DAILY 05/29/18 10/09/21 fluticasone propionate 110 2 puff inhalation BID 05/29/18 10/09/21 mcg/actuation HFA aerosol inhaler (Flovent HFA) inhalational spacing device #1 ea 05/29/18 08/19/19 (Aerochamber MV spacer) aripiprazole 2 mg tablet 2 mg PO DAILY 09/01/18 10/09/21 meloxicam 15 mg tablet 15 mg PO DAILY 04/28/19 10/09/21 divalproex 250 mg tablet,delayed See Rx Instructions .Route 05/03/21 10/09/21 release (Depakote) .COMPLEX #30 tabs clobazam 10 mg tablet 20 tab PO HS 09/13/21 10/09/21 methocarbamol 500 mg tablet 500 mg PO Q6H PRN muscle spasm #14 09/19/21 10/09/21 tabs cholecalciferol (vitamin D3) 25 1,000 unit PO DAILY 10/09/21 10/09/21 mcg (1,000 unit) capsule (Vitamin D3) prednisone 20 mg tablet See Rx Instructions .Route 10/09/21 .COMPLEX #12 tabs Previous Rx's Medication Instructions Recorded divalproex 250 mg tablet,delayed See Rx Instructions .Route 05/03/21 release (Depakote) .COMPLEX #30 tabs methocarbamol 500 mg tablet 500 mg PO Q6H PRN muscle spasm #14 09/19/21 tabs prednisone 20 mg tablet See Rx Instructions .Route 10/09/21 .COMPLEX #12 tabs Allergies Allergy/AdvReac Type Severity Reaction Status Date / Time No Known Allergies Allergy Unverified 09/19/21 05:17 General Stated Complaint: Nk/Back Pain GM: 3 Review of Systems All systems reviewed & are unremarkable except as noted in HPI and below Constitutional Constitutional: Reports as per HPI, Denies chills and Denies fever(s) Eyes Eyes: Denies blurry vision ENT Ears, Nose, Mouth, and Throat: Denies dizziness, Denies sore throat and Denies throat swelling Cardiovascular Cardiovascular: Denies chest pain and Denies dyspnea Respiratory Respiratory: Denies cough and Denies dyspnea Gastrointestinal Gastrointestinal: Denies abdominal pain, Denies diarrhea and Denies vomiting Genitourinary Genitourinary: Denies hematuria and Denies dysuria Musculoskeletal Musculoskeletal: Denies back pain and Denies numbness Comments: b/l leg pain Integumentary/Breasts Skin/Breast: Denies lesions and Denies rash Neurologic Neurologic: Denies dizziness, Denies localized weakness and Denies numbness Allergic/Immunologic Allergic/Immunologic: Denies throat swelling PFSH All Active Problems (Updated 10/09/21 @ 07:22 by Linda Mcdaniel DO) Left lumbar radiculopathy (Acute) Protrusion of lumbar intervertebral disc (Acute) Low back pain (Acute) Pruritic erythematous rash (Acute) Encounter for IUD removal (Acute) Hx of tubal ligation (Chronic) Knee pain, bilateral (Chronic) Generalized tonic-clonic seizure (Chronic) Onset 28 years old. Last seizure 2018. 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 Contraception management (Acute) 05/[address] Paperwork for tubal sterilization initiated. Sciatica (Acute) Hypertension (Chronic) Depression (Chronic) Migraine headache (Chronic) Hyperlipidemia (Chronic) Asthma (Chronic) Fibromyalgia (Chronic) Treated with marijuana. Patient does not have a medical marijuana card Medical History Grand mal seizure disorder Last seizure August 2018. History of pre-eclampsia Tremor of both hands secondary to Depakote, per pt. 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 Has routine cardiology follow-up Dr. Rai in [place]. Pt. states there is still a slight hole but is monitored Social History Smoking/Tobacco Use Status: Never Smoking risk assessment performed?: Yes Alcohol Intake: never Drug use: Daily Substance use type: marijuana Details: Marijuana daily. CBD oil as needed. Household members: spouse, children and other Details: H-Vinod Francisco-Magaly, Vinod-Katia Number of Children: 2 Do you need help understanding health information?: Rarely current occupation: Works at [employer] Sexually active: Yes Do you feel safe at home: Yes Do you feel safe in your relationship?: Yes Additional Social history: Daughter Magaly special-needs secondary to difficulty speaking. Katia without issues both children attend [employer] History History 4 Para 2 Hx # Term Pregnancies Multiple births Hx # Pregnancies Ectopic pregnancies AB induced 2 Hx Number of Living Children AB spontaneous Exam Const General: cooperative, healthy appearing and no acute distress Orientation: alert, awake and oriented x3 HENMT Head: normal to inspection Mouth: oral mucosae normal Eyes General: appearance normal, both eyes and all related structures Neck Neck: normal visual inspection Resp Effort & Inspection: normal respiratory effort and able to speak in complete sentences Cardio Rate: regular rate Skin General skin exam: no rashes or lesions noted Neuro General: patient alert, patient awake and patient oriented x3 Motor: muscle tone normal throughout and strength 5/5 throughout DTR's: Rt Patellar: 1+, Lt Patellar: 1+, Rt Ankle: 1+ and Lt Ankle: 1+ Plantar Reflexes: Equivocal: bilateral (negative babinski b/l ) Extrem General: full ROM Upper/lower leg/hip images: 1. Erythema, more significant in distal lower leg. 2. Erythema, more significant in distal lower leg. Other: B/L DP/PT pulses intact. Psych Appearance: grossly normal Affect: normal affect Course Vital Signs Vital signs: Vital Signs Temperature 97.7 F 10/09/21 06:08 Pulse 77 10/09/21 06:08 Respiratory Rate 16 10/09/21 06:08 Blood Pressure 125/71 10/09/21 06:08 Pulse Oximetry 98 10/09/21 06:08 Temperature 97.7 F 10/09/21 06:08 Pulse 77 10/09/21 06:08 Respiratory Rate 16 10/09/21 06:08 Respiratory Effort 10/09/21 06:08 Blood Pressure 125/71 10/09/21 06:08 Blood Pressure Position Sitting 10/09/21 06:08 Pulse Oximetry 98 10/09/21 06:08 Oxygen Delivery Method Room Air 10/09/21 06:08 Oxygen Flow Rate 0 10/09/21 06:08 Pain Level 10 10/09/21 06:08
[2021-10-09] MEDS: predniSONE 20 MG TAB 60 MG PO (06:46)
[2021-10-09 07:41] VITALS: BP 122/63; PULSE 67; RESP 16; TEMP 36.7; O2SAT 97
== END 2021-10-09 07:59 | disposition home or self-care (01) ==
PROVIDERS: Emergency Provider Physician Assistant; PCP Nurse Practitioner Family
DX: L29.9 Pruritus, unspecified (principal); M51.26 Other intervertebral disc displacement, lumbar region
CPT/HCPCS: 81025; 99283; 99284; J7512

== ENCOUNTER → 2021-10-10 21:42 | Outpatient (CLI) | payer MEDICAID, SELFPAY ==
--- NOTE | 2021-10-10 | DI.RAD_ITS ---
Exam(s) XR CHEST 2V PA LATERAL EXAM: XR CHEST 2V PA LATERAL CLINICAL HISTORY: EDEMA, R60.9 TECHNIQUE: 2D digital imaging was performed. COMPARISON: No exams were available for comparison FINDINGS: MEDIASTINUM: Normal. HEART: Mildly enlarged. Mild vascular prominence. PULMONARY VASCULATURE: Normal. LUNGS: Clear. PLEURAL SPACE: No pleural effusion or pneumothorax. BONE: Sternal wires, otherwise unremarkable for age. IMPRESSION: Mild cardiomegaly and mild pulmonary vascular prominence could indicate mild CHF. No focal infiltrat e, or effusion is seen. DATA REPOSITORY: RADIATION DOSE DELIVERED:
[2021-10-10 21:29] LABS: Abs Immature Grans 0.27 10^3/uL (0.0-0.06); Absolute Basophil Count 0.05 10^3/uL (0.0-0.2); Absolute Monocyte Count 0.44 10^3/uL (0.1-0.8); Basophils % 0.4; Eosinophils % 0.2; HCT 40.3 % (36.0-46.0); HGB 13.6 g/dL (11.2-15.7); Immature Grans % 2.1; Lymphocytes % 11.9; MCH 30.7 pg (27.0-33.0); MCHC 33.7 % (32.0-36.0); MCV 91 fL (80-95); MPV 9.5 fL (8.0-11.0); Monocytes % 3.5; Neutrophils % 81.9; Platelet Count 276 10^3/uL (130-400); RBC 4.43 10^6/uL (3.93-5.22); RDW 12.1 % (11.7-14.6); RDW-SD 40.6 fL; WBC 12.57 10^3/uL (4.4-10.8)
[2021-10-10 21:35] LABS: Absolute Eosinophil Count 0.03 10^3/uL (0.0-0.7); Absolute Neutrophil Count 10.29 10^3/uL (1.2-6.7)
[2021-10-10 21:37] LABS: ESR 2 mm/hr (0-20)
[2021-10-10 21:42] LABS: VALPROIC ACID 55.7 ug/mL
[2021-10-10 21:50] LABS: Bilirubin Negative (Negative); Blood Negative (Negative); Clarity Sl Cloudy (Clear); Glucose 500 mg/dL (Negative); Ketones 15 mg/dL (Negative); Leukocyte Esterase Negative (Negative); Nitrite Negative (Negative); Specific Gravity 1.025 (1.005-1.025); Urobilinogen 0.2 EU/dL (Up TO 0.2); pH 5.5 (5-8)
[2021-10-10 21:52] LABS: ALT 28 U/L (14-59); AST 14 U/L (15-37); Albumin 3.3 g/dL (3.4-5.0); Alkaline Phosphatase 36 U/L (46-116); Anion Gap 13.5 mmol/L (3-11); BUN 12 mg/dL (7-18); Bilirubin, Total 0.2 mg/dL (0.2-1.0); CO2 21.5 mmol/L (21.0-32.0); CREATININE 0.9 mg/dL (0.55-1.02); Calcium 8.7 mg/dL (8.5-10.1); Chloride 103 mmol/L (98-107); Glucose 164 mg/dL (74-106); NT-proBNP 282 pg/mL (<300); Potassium 4.5 mmol/L (3.5-5.1); Sodium 138 mmol/L (136-145); TSH (W/Ref FT4) 0.62 uIU/mL (0.36-3.74)
[2021-10-10 22:00] LABS: COMMENT (LAB VIEW ONLY) 57.94 mg/dL; Microalb ug/mg Crea 6.6 ug/mg Cr
== END ==
PROVIDERS: PCP Nurse Practitioner Family; Visit Provider Nurse Practitioner Family
DX: I51.7 Cardiomegaly (principal); R60.9 Edema, unspecified
CPT/HCPCS: 80053; 85652; 71046; 80164; 81003; 82043; 82570; 83880; 84443; 85025; 86140

== ENCOUNTER 2021-10-11 16:17 | Outpatient (REF) | payer MEDICAID, SELFPAY ==
[2021-10-11 13:29] LABS: Hemoglobin A1C 5.6 % (<5.7)
== END 2021-10-11 16:18 | disposition home or self-care (01) ==
LOC: LBN 16:17
PROVIDERS: PCP Nurse Practitioner Family; Visit Provider Nurse Practitioner Family
DX: R73.9 Hyperglycemia, unspecified (principal)
CPT/HCPCS: 83036

== ENCOUNTER 2021-10-18 12:50 | Outpatient (CLI) | payer MEDICAID, SELFPAY ==
[2021-10-18 12:59] LABS: Anion Gap 7.4 mmol/L (3-11); BUN 12 mg/dL (7-18); CO2 27.6 mmol/L (21.0-32.0); CREATININE 0.8 mg/dL (0.55-1.02); Calcium 8.6 mg/dL (8.5-10.1); Chloride 103 mmol/L (98-107); Glucose 120 mg/dL (74-106); Potassium 4.4 mmol/L (3.5-5.1); Sodium 138 mmol/L (136-145)
== END 2021-10-18 12:51 | disposition home or self-care (01) ==
LOC: LBO 12:53
PROVIDERS: PCP Nurse Practitioner Family
DX: R06.02 Shortness of breath (principal)
CPT/HCPCS: 36415; 80048

== ENCOUNTER 2021-10-19 10:07 | Emergency (ER) | payer MEDICAID, SELFPAY ==
--- NOTE | 2021-10-19 10:00 | RT.EKG_ITS ---
APPROVED REPORT Exam: Resting ECG Reason for Exam: chest heaviness Patient Location: E HR:75 bpm ECG Measurements Heart Rate 75 AXIS WA 160 P 38 QRSd 92 QRS 38 QT 393 T 109 QTc 438 Conclusion Sinus rhythm...normal P axis Abnormal T, lateral leads appears similar to previous 09/01/18
[2021-10-19 10:09] VITALS: BP 126/80; PULSE 78; RESP 24; TEMP 37.2; O2SAT 100
[2021-10-19 10:14] VITALS: RESP 20
--- NOTE | 2021-10-19 10:15 | DI.US_ITS ---
Exam(s) US LOWER EXTREMITY VENOUS LT EXAM: US LOWER EXTREMITY VENOUS LT CLINICAL HISTORY: swelling, edema. TECHNIQUE: Lower extremity venous ultrasound performed using grayscale, color-flow, and spectral Do ppler analysis. COMPARISON: No exams were available for comparison FINDINGS: The common femoral, femoral and popliteal veins demonstrate normal compressibility, augmentation, and color Doppler. The posterior tibial veins are patent. No saphenous vein thrombosis or other superfi cial venous thrombosis is seen. No hematoma or Garcia's cyst is seen. IMPRESSION: Negative left lower extremity ultrasound. No evidence of DVT. DATA REPOSITORY:
--- NOTE | 2021-10-19 10:18 | ED.GENADUL_ITS ---
Discharge Plan Disposition Patient Disposition: HOME Condition: Improving Discharge Details Clinical Impression: Asthma Primary Care Provider: [facility] ED Provider: Mike Dawson Home Meds and New Rx's Prescriptions: New prednisone 50 mg tablet 50 mg PO DAILY 5 Days Qty: 5 0RF Continued cbd oil 0.75 ml PO BID Label Comments: 3/4 dropper morning and night citalopram 20 mg tablet 40 mg PO DAILY (DME) Aerochamber MV spacer See Dose Instructions .ROUTE .MEDSUPPLY Qty: 1 Rx Instructions: As directed Flovent HFA 110 mcg/actuation HFA aerosol inhaler 2 puff IH BID meloxicam 15 mg tablet 15 mg PO DAILY aripiprazole 2 mg Tablet 2 mg PO DAILY divalproex [Depakote] 250 mg tablet,delayed release (DR/EC) See Rx Instructions .ROUTE .COMPLEX Qty: 30 0RF Rx Instructions: Please take 250mg in the AM and 500mg in the evenings. clobazam 10 mg tablet 20 tab PO HS Label Comments: 10mg am, 20mg at night methocarbamol 500 mg tablet 500 mg PO Q6H PRN (Reason: muscle spasm) Qty: 14 0RF cholecalciferol (vitamin D3) [Vitamin D3] 25 mcg (1,000 unit) Capsule 1,000 unit PO DAILY Changed albuterol sulfate 90 mcg/actuation aerosol powdr breath activated 1 inh IH Q4H PRN (Reason: shortness of breath or wheezing) 14 Days Qty: 1 0RF Discontinued prednisone 20 mg tablet See Rx Instructions .ROUTE .COMPLEX Qty: 12 0RF Rx Instructions: Take 3 tabs daily for 2 days, then 2 tabs daily for 2 days, then 1 tab daily for 2 days Discharge Instructions Instructions: Asthma (ED) Additional Instructions: Albuterol every 4 hours as needed. Take prednisone as prescribed. Return to the ER for any acute concerns. Medical Decision Making 35-year-old female presents from home. She had ASD repair at the age of 16, has a seizure disorder, and recently has been started on a course of 1 week diuresis for lower extremity swelling which she states she feels is more prominent in her left leg. The patient had shortness of breath this morning with associated cough and production of white sputum. She improved with an inhaler at home. She recently completed a course of prednisone for chronic back issues, not currently on steroids. She arrives to the ER with normal vital signs and oxygen with high percent room air. She is afebrile. Differential diagnosis includes asthma exacerbation, DVT, PE, atypical chest pain. Patient had IV access established, labs obtained, given Gordy vargas. Screening EKG is unchanged from previous Lower extremity ultrasound negative. Laboratories are reassuring. CBC, D-dimer, chemistries,& troponin in the ER are unremarkable. Chest x-ray: No acute disease. Will treat for mild exacerbation of reactive airway disease HPI General Mode of arrival: ambulatory . Date/Time Provider Initiated Documentation: 10/19/21 10:26 . Limitations to Documentation: no limitations . Information obtained by: patient . History of Present Illness 35 year old F presents to the emergency department with the chief complaint of Shortness of breath, cough, described as moderate, and is localized to the chest. Patient reports no radiation. Patient started experiencing this hour(s) and it has been intermittent and now resolved. No relieving factors improve symptom(s), No exacerbating factors reported . Patient notes cough and shortness of breath; denies fever/chills, syncope and weakness. Patient did receive the following treatments prior to arrival, other (Inhaler) Related Data Home Medications Medication Instructions Recorded Confirmed cbd oil 0.75 ml PO BID 05/29/18 10/09/21 citalopram 20 mg tablet 40 mg PO DAILY 05/29/18 10/09/21 fluticasone propionate 110 2 puff inhalation BID 05/29/18 10/09/21 mcg/actuation HFA aerosol inhaler (Flovent HFA) inhalational spacing device #1 ea 05/29/18 08/19/19 (Aerochamber MV spacer) aripiprazole 2 mg tablet 2 mg PO DAILY 09/01/18 10/09/21 meloxicam 15 mg tablet 15 mg PO DAILY 04/28/19 10/09/21 divalproex 250 mg tablet,delayed See Rx Instructions .Route 05/03/21 10/09/21 release (Depakote) .COMPLEX #30 tabs clobazam 10 mg tablet 20 tab PO HS 09/13/21 10/09/21 methocarbamol 500 mg tablet 500 mg PO Q6H PRN muscle spasm #14 09/19/21 10/09/21 tabs cholecalciferol (vitamin D3) 25 1,000 unit PO DAILY 10/09/21 10/09/21 mcg (1,000 unit) capsule (Vitamin D3) albuterol sulfate 90 mcg/actuation 1 inh inhalation Q4H PRN shortness 10/19/21 breath activated powder inhaler of breath or wheezing 2 weeks #1 ea prednisone 50 mg tablet 50 mg PO DAILY 5 days #5 tabs 10/19/21 Previous Rx's Medication Instructions Recorded divalproex 250 mg tablet,delayed See Rx Instructions .Route 05/03/21 release (Depakote) .COMPLEX #30 tabs methocarbamol 500 mg tablet 500 mg PO Q6H PRN muscle spasm #14 09/19/21 tabs albuterol sulfate 90 mcg/actuation 1 inh inhalation Q4H PRN shortness 10/19/21 breath activated powder inhaler of breath or wheezing 2 weeks #1 ea prednisone 50 mg tablet 50 mg PO DAILY 5 days #5 tabs 10/19/21 Allergies Allergy/AdvReac Type Severity Reaction Status Date / Time No Known Allergies Allergy Unverified 10/19/21 10:14 General Stated Complaint: SOB GM: 3 Review of Systems Narrative: Has been on Lasix for 1 week for lower extremity swelling and edema. Will note left greater than right lower extremity swelling. Note chest pain or syncope. Short of breath with cough and production of sputum. See HPI. 8 systems were reviewed and otherwise PFSH All Active Problems (Updated 10/19/21 @ 12:49 by Mike Dawson MD) Protrusion of lumbar intervertebral disc (Acute) Low back pain (Acute) Pruritic erythematous rash (Acute) Encounter for IUD removal (Acute) Hx of tubal ligation (Chronic) Knee pain, bilateral (Chronic) Generalized tonic-clonic seizure (Chronic) Onset 28 years old. Last seizure 2018. Neurologist at [facility] 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 Contraception management (Acute) 05/[address] Paperwork for tubal sterilization initiated. Sciatica (Acute) Hypertension (Chronic) Depression (Chronic) Migraine headache (Chronic) Hyperlipidemia (Chronic) Asthma (Chronic) Fibromyalgia (Chronic) Treated with marijuana. Patient does not have a medical marijuana card Medical History Grand mal seizure disorder Last seizure August 2018. History of pre-eclampsia Tremor of both hands secondary to Depakote, per pt. 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 Has routine cardiology follow-up Dr. Rai in [place]. Pt. states there is still a slight hole but is monitored Social History Smoking/Tobacco Use Status: Never Smoking risk assessment performed?: Yes Alcohol Intake: never Drug use: Daily Substance use type: marijuana Details: Marijuana daily. CBD oil as needed. Household members: spouse, children and other Details: H-Nolan, Vinod-Magaly, Vinod- Katia Number of Children: 2 Do you need help understanding health information?: Rarely current occupation: Works at [employer] Sexually active: Yes Do you feel safe at home: Yes Do you feel safe in your relationship?: Yes Additional Social history: Daughter Magaly special-needs secondary to difficulty speaking. Katia without issues both children attend [employer] History History 4 Para 2 Hx # Term Pregnancies Multiple births Hx # Pregnancies Ectopic pregnancies AB induced 2 Hx Number of Living Children AB spontaneous Exam Narrative Exam Narrative: GEN: awake, alert, oriented 3. Pleasant, well groomed, interactive. HEAD: Normocephalic, atraumatic ENT: Mucous membranes moist, oropharynx unremarkable, External ear exam unremarkable EYES: PERRL, EOMI NECK: Full ROM, no JOEL, no menigismus CHEST/RESP: Distant, clear to auscultation bilateral, no wheeze/rhonchi/rales CARDIOVASCULAR: RRR, no murmur, rub devon. 2+ Rad pulse bilateral ABDOMEN: Soft, nontender, no mass. +Bowel sounds EXT: Full ROM, lower extremity left lower extremity, no rash Neuro: Grossly normal neurologic exam, conversant, interactive. Psych: Speech fluent, thoughts congruent, affect normal Course Vital Signs Vital signs: Vital Signs Temperature 37.2 C 10/19/21 10:09 Pulse 78 10/19/21 10:09 Respiratory Rate 24 10/19/21 10:09 Blood Pressure 126/80 10/19/21 10:09 Pulse Oximetry 100 10/19/21 10:09 Temperature 37.2 C 10/19/21 10:09 Temperature Source Temporal Artery Scan 10/19/21 10:09 Pulse 78 10/19/21 10:09 Respiratory Rate 20 10/19/21 10:14 Respiratory Effort 10/19/21 10:16 Respiratory Depth Normal 10/19/21 10:14 Respiratory Pattern Normal 10/19/21 10:14 Blood Pressure 126/80 10/19/21 10:09 Blood Pressure Position Sitting 10/19/21 10:09 Pulse Oximetry 100 10/19/21 10:09 Oxygen Delivery Method Room Air 10/19/21 10:09 Oxygen Flow Rate 0 10/19/21 10:09 Pain Level 0 10/19/21 10:09
[2021-10-19 10:37] LABS: Abs Immature Grans 0.23 10^3/uL (0.0-0.06); Absolute Basophil Count 0.06 10^3/uL (0.0-0.2); Absolute Eosinophil Count 0.73 10^3/uL (0.0-0.7); Absolute Lymphocyte Count 2.67 10^3/uL (1.2-3.4); Absolute Monocyte Count 1.09 10^3/uL (0.1-0.8); Absolute Neutrophil Count 3.85 10^3/uL (1.2-6.7); Basophils % 0.7; Eosinophils % 8.5; HCT 39.7 % (36.0-46.0); HGB 13.3 g/dL (11.2-15.7); Immature Grans % 2.7; Lymphocytes % 30.9; MCH 30.2 pg (27.0-33.0); MCHC 33.5 % (32.0-36.0); MCV 90 fL (80-95); MPV 8.4 fL (8.0-11.0); Monocytes % 12.6; Neutrophils % 44.6; Platelet Count 220 10^3/uL (130-400); RBC 4.41 10^6/uL (3.93-5.22); RDW 11.8 % (11.7-14.6); RDW-SD 38.7 fL; WBC 8.63 10^3/uL (4.4-10.8)
[2021-10-19] MEDS: Albuterol/Ipratropium 3 ML UPD VIAL UPD (10:55)
[2021-10-19 11:01] LABS: ALT 31 U/L (14-59); AST 15 U/L (15-37); Albumin 3.1 g/dL (3.4-5.0); Alkaline Phosphatase 35 U/L (46-116); BUN 10 mg/dL (7-18); Bilirubin, Total 0.2 mg/dL (0.2-1.0); CREATININE 0.7 mg/dL (0.55-1.02); Calcium 8.7 mg/dL (8.5-10.1); Chloride 105 mmol/L (98-107); Glucose 108 mg/dL (74-106); Magnesium 1.8 mg/dL (1.8-2.4); NT-proBNP 37 pg/mL (<300); Potassium 4.3 mmol/L (3.5-5.1); Sodium 139 mmol/L (136-145); Total Protein 6.6 g/dL (6.4-8.2); Troponin I < 50 ng/L (<or=60)
[2021-10-19 11:07] LABS: D-Dimer 235 ng/mlFEU (<500)
--- NOTE | 2021-10-19 11:15 | DI.RAD_ITS ---
Exam(s) XR CHEST 2V PA LATERAL EXAM: XR CHEST 2V PA LATERAL CLINICAL HISTORY: Cough TECHNIQUE: 2D digital imaging was performed. COMPARISON: CR XR CHEST 2V PA LATERAL from 10/10/2021 FINDINGS: MEDIASTINUM: Normal. HEART: Mildly enlarged, unchanged. PULMONARY VASCULATURE: Normal. LUNGS: Clear. PLEURAL SPACE: No pleural effusion or pneumothorax. BONE: Sternal wires, otherwise unremarkable for age. IMPRESSION: No acute abnormality. DATA REPOSITORY: RADIATION DOSE DELIVERED:
[2021-10-19 12:37] VITALS: BP 113/61; PULSE 74; TEMP 36.6; O2SAT 99
[2021-10-19 13:20] VITALS: BP 106/66; PULSE 72; RESP 19; TEMP 36.1; O2SAT 100
== END 2021-10-19 16:23 | disposition home or self-care (01) ==
LOC: ER 13:13
PROVIDERS: Emergency Provider Emergency Medicine; PCP Nurse Practitioner Family
DX: J45.901 Unspecified asthma with (acute) exacerbation (principal)
CPT/HCPCS: 36415; 80053; 93005; 94640; 99283; 71046; 83735; 83880; 84484; 85025; 85379; 93010; 93971; 99284; J7620

== ENCOUNTER 2021-11-10 16:56 | Outpatient (REF) | payer MEDICAID, SELFPAY ==
[2021-11-10 15:40] LABS: Anion Gap 6.2 mmol/L (3-11); BUN 21 mg/dL (7-18); C-Reactive Protein 0.24 mg/dL (0.0-0.3); CO2 26.8 mmol/L (21.0-32.0); CREATININE 0.7 mg/dL (0.55-1.02); Calcium 8.6 mg/dL (8.5-10.1); Chloride 103 mmol/L (98-107); Estimated GFR 113.46 (mL/min/1.73m2); Glucose 99 mg/dL (74-106); Potassium 4.3 mmol/L (3.5-5.1); Sodium 136 mmol/L (136-145)
[2021-11-10 16:28] LABS: ESR 1 mm/hr (0-20)
[2021-11-13 14:30] LABS: ANA Interpretation Negative (Negative)
== END 2021-11-10 16:57 | disposition home or self-care (01) ==
LOC: NCHCN 16:56
PROVIDERS: PCP Nurse Practitioner Family; Visit Provider Nurse Practitioner Family
DX: R63.5 Abnormal weight gain (principal); R60.9 Edema, unspecified
CPT/HCPCS: 80048; 85652; 86038; 86140

== ENCOUNTER 2021-11-12 10:17 | Emergency (ER) | payer MEDICAID, SELFPAY ==
--- NOTE | 2021-11-12 10:30 | DI.RAD_ITS ---
Exam(s) XR HIP RT COMPLETE AP PELVIS EXAM: XR HIP RT COMPLETE AP PELVIS CLINICAL HISTORY: Fall down stairs, pain. TECHNIQUE: 2D digital imaging was performed. COMPARISON: No exams were available for comparison FINDINGS: 3 views No evidence of pelvic nor hip fracture. No obvious degenerative changes. No osseous lesions. IMPRESSION: No fracture evident. DATA REPOSITORY: RADIATION DOSE DELIVERED:
--- NOTE | 2021-11-12 10:30 | DI.RAD_ITS ---
Exam(s) XR LUMBAR SPINE COMPLETE EXAM: XR LUMBAR SPINE COMPLETE CLINICAL HISTORY: Fall down stairs, pain. TECHNIQUE: 2D digital imaging was performed. COMPARISON: No exams were available for comparison FINDINGS: Five views: Five vertebrae of lumbar configuration. No evidence of fracture. Mild disc space narrowing at L4-5 level noted and anterior osseous lipping at this level. Subtle widening of the facet joint spaces at L4-5 bilaterally, possibly significant. Mild anterolisthesis L4 upon L5. Sacroiliac joints appear unremarkable. IMPRESSION: As above. Recommend flexion extension lateral views to determine the true amount of anterior movemen t of L4 upon L5 and to bring out any pars defects. Alternatively CT scan can be performed, particularly if acute fracture suspected DATA REPOSITORY: RADIATION DOSE DELIVERED:
--- NOTE | 2021-11-12 10:30 | DI.RAD_ITS ---
Exam(s) XR CERVICAL SP KELLY TRAUMA 2-3V EXAM: XR CERVICAL SP KELLY TRAUMA 2-3V CLINICAL HISTORY: Fall down stairs, pain. TECHNIQUE: 2D digital imaging was performed. COMPARISON: No exams were available for comparison FINDINGS: Five views: No evidence of acute fracture, listhesis, nor offset of the spinal laminar line. Evidence of degener ative disc disease at C5-6 and C6-7 levels with mild disc space narrowing and anterior osseous lippin g at these levels. No facet malalignment. No prevertebral soft tissue swelling. No osseous lesions . Spinous process is appear intact. IMPRESSION: As above but no fractures identified. Sternotomy wires are incidentally noted. No cervical ribs. DATA REPOSITORY: RADIATION DOSE DELIVERED:
[2021-11-12 10:31] VITALS: BP 126/65; PULSE 75; RESP 18; TEMP 36.6; O2SAT 96
--- NOTE | 2021-11-12 10:41 | DI.RAD_ITS ---
Exam(s) XR CHEST 1V IN DI DEPT EXAM: XR CHEST 1V IN DI DEPT CLINICAL HISTORY: Fall down stairs, pain. TECHNIQUE: 2D digital imaging was performed. COMPARISON: CR XR CHEST 2V PA LATERAL from 10/19/2021 FINDINGS: Single AP portable view. Sternotomy wires again noted. Heart size is upper normal. The mediastinum is not widened. Lungs are clear. No infiltrates nor obvious pleural effusions. IMPRESSION: No acute pulmonary findings on this single AP portable view of the chest. DATA REPOSITORY: RADIATION DOSE DELIVERED: All CT scans at this facility use at least one of these dose optimization techniques: automated exposure control; mA and/or kV adjustment per patient size (includes targeted e xams where dose is matched to clinical indication); or iterative reconstruction.
--- NOTE | 2021-11-12 10:43 | ED.GENADUL_ITS ---
Discharge Plan Disposition Patient Disposition: HOME Condition: Improving Discharge Details Clinical Impression: Contusion of muscle Primary Care Provider: Comfort [facility] ED Provider: Mike Dawson Home Meds and New Rx's Prescriptions: Continued cbd oil 0.75 ml PO BID Label Comments: 3/4 dropper morning and night citalopram 20 mg tablet 40 mg PO DAILY (DME) Aerochamber MV spacer See Dose Instructions .ROUTE .MEDSUPPLY Qty: 1 Rx Instructions: As directed Flovent HFA 110 mcg/actuation HFA aerosol inhaler 2 puff IH BID aripiprazole 2 mg Tablet 2 mg PO DAILY divalproex [Depakote] 250 mg tablet,delayed release (DR/EC) See Rx Instructions .ROUTE .COMPLEX Qty: 30 0RF Rx Instructions: Please take 250mg in the AM and 500mg in the evenings. clobazam 10 mg tablet 20 tab PO HS Label Comments: 10mg am, 20mg at night albuterol sulfate 90 mcg/actuation aerosol powdr breath activated 1 inh IH Q4H PRN (Reason: shortness of breath or wheezing) 14 Days Qty: 1 0RF cholecalciferol (vitamin D3) [Vitamin D3] 25 mcg (1,000 unit) Capsule 1,000 unit PO DAILY No Action meloxicam 15 mg tablet 15 mg PO DAILY Rx Instructions: on hold for upcoming surgery methocarbamol 500 mg tablet 500 mg PO Q6H PRN (Reason: muscle spasm) Qty: 14 0RF Discharge Instructions Instructions: Contusion in Adults (ED) Additional Instructions: You will likely have increased muscular soreness over the next 24 to 36 hours. As you have been avoiding NSAIDs, may use Tylenol for pain with the provided oxycodone as needed for severe or breakthrough pain. Return to the emergency department for any acute concerns Discharge Data Discharge Date/Time-TO BE ENTERED AT DEPARTURE: 11/12/21 12:38 Medical Decision Making This is a 36-year-old female who slipped and fell down her stairs at home. She did not have a loss of consciousness and states she primarily landed on her right side. She has freestanding chronic neck and back pain. She is currently avoiding NSAIDs in preparation for a lumbar spine surgery. She did not suffer any motor weakness or numbness. She complains primarily of right hip pain but also neck and back pain. On exam the patient has numerous areas that are tender. There is no gross deformity or injury appreciated. Patient has been avoiding NSAIDs as stated above. She previously has been on oxycodone and she was given 10 mg of oxycodone by mouth. She is referred for x- ray Right hip: No acute injury. Right tib-fib: no acute injury. Lumbar spine: No acute injury. 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 Chest x-ray: No acute findings. Cervical spine x-ray: No acute injury. Multilevel spondylosis, similar to prior imaging. Patient's pain improved. Consistent with contusions. She may have increased muscular soreness over the next 24 hours which I discussed with her. HPI General Mode of arrival: ambulatory . Date/Time Provider Initiated Documentation: 11/12/21 10:20 . Limitations to Documentation: no limitations . Information obtained by: patient . History of Present Illness 36 year old F presents to the emergency department with the chief complaint of Fall downstairs, right-sided pain, described as moderate, Quality is described as dull, and is localized to the chest, pelvis and lower extremity. Patient reports no radiation. Patient started experiencing this hour(s) and it has been constant. No relieving factors improve symptom(s), No exacerbating factors reported . Patient notes denies chest pain and shortness of breath. Patient did receive the following treatments prior to arrival, none Related Data Home Medications Medication Instructions Recorded Confirmed cbd oil 0.75 ml PO BID 05/29/18 10/09/21 citalopram 20 mg tablet 40 mg PO DAILY 05/29/18 10/09/21 fluticasone propionate 110 2 puff inhalation BID 05/29/18 10/09/21 mcg/actuation HFA aerosol inhaler (Flovent HFA) inhalational spacing device #1 ea 05/29/18 08/19/19 (Aerochamber MV spacer) aripiprazole 2 mg tablet 2 mg PO DAILY 09/01/18 10/09/21 meloxicam 15 mg tablet 15 mg PO DAILY 04/28/19 10/09/21 divalproex 250 mg tablet,delayed See Rx Instructions .Route 05/03/21 10/09/21 release (Depakote) .COMPLEX #30 tabs clobazam 10 mg tablet 20 tab PO HS 09/13/21 10/09/21 methocarbamol 500 mg tablet 500 mg PO Q6H PRN muscle spasm #14 09/19/21 10/09/21 tabs cholecalciferol (vitamin D3) 25 1,000 unit PO DAILY 10/09/21 10/09/21 mcg (1,000 unit) capsule (Vitamin D3) albuterol sulfate 90 mcg/actuation 1 inh inhalation Q4H PRN shortness 10/19/21 breath activated powder inhaler of breath or wheezing 2 weeks #1 ea Previous Rx's Medication Instructions Recorded divalproex 250 mg tablet,delayed See Rx Instructions .Route 05/03/21 release (Depakote) .COMPLEX #30 tabs methocarbamol 500 mg tablet 500 mg PO Q6H PRN muscle spasm #14 09/19/21 tabs albuterol sulfate 90 mcg/actuation 1 inh inhalation Q4H PRN shortness 10/19/21 breath activated powder inhaler of breath or wheezing 2 weeks #1 ea Allergies Allergy/AdvReac Type Severity Reaction Status Date / Time No Known Allergies Allergy Unverified 11/12/21 10:36 General Stated Complaint: Trauma GM: 3 Review of Systems Narrative: Denies loss of conscious. Has chronic cervical and lumbar pain that is unchanged. No motor weakness or numbness. No chest discomfort or abdominal discomfort. 8 systems were reviewed and otherwise negative PFSH All Active Problems (Updated 11/12/21 @ 12:26 by Mike Dawson MD) Contusion of muscle (Acute) Encounter for IUD removal (Acute) Hx of tubal ligation (Chronic) Knee pain, bilateral (Chronic) Generalized tonic-clonic seizure (Chronic) Onset 28 years old. Last seizure 2018. [place] [facility] 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 Contraception management (Acute) 05/[address] Paperwork for tubal sterilization initiated. Sciatica (Acute) Hypertension (Chronic) Depression (Chronic) Migraine headache (Chronic) Hyperlipidemia (Chronic) Asthma (Chronic) Fibromyalgia (Chronic) Treated with marijuana. Patient does not have a medical marijuana card Medical History Grand mal seizure disorder Last seizure August 2018. History of pre-eclampsia Tremor of both hands secondary to Depakote, per pt. 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 Has routine cardiology follow-up Dr. Rai in [place]. Pt. states there is still a slight hole but is monitored Social History Smoking/Tobacco Use Status: Never Smoking risk assessment performed?: Yes Alcohol Intake: never Drug use: Daily Substance use type: marijuana Details: Marijuana daily. CBD oil as needed. Household members: spouse, children and other Details: H-Nolan, D-Magaly, D- Katia Number of Children: 2 Do you need help understanding health information?: Rarely current occupation: Works at [employer] Sexually active: Yes Do you feel safe at home: Yes Do you feel safe in your relationship?: Yes Additional Social history: Daughter Magaly special-needs secondary to difficulty speaking. Katia without issues both children attend [employer] History History 4 Para 2 Hx # Term Pregnancies Multiple births Hx # Pregnancies Ectopic pregnancies AB induced 2 Hx Number of Living Children AB spontaneous Exam Narrative Exam Narrative: GEN: awake, alert, oriented 3. Pleasant, well groomed, interactive. HEAD: Normocephalic, atraumatic ENT: Mucous membranes moist, oropharynx unremarkable, External ear exam unremarkable EYES: PERRL, EOMI NECK: Diffuse posterior pain with palpation, no step-off or deformity appr eciated. CHEST/RESP: Nontender, clear to auscultation bilateral, no wheeze/rhonchi/rales CARDIOVASCULAR: RRR, no murmur, rub devon. 2+ Rad pulse bilateral ABDOMEN: Soft, nontender, no mass. +Bowel sounds EXT: Full ROM, right lateral hip pain to palpation. Subtle bruise anterior tibia on the right. No significant bony tenderness Back: Diffuse tenderness without step-off or deformity Neuro: Grossly normal neurologic exam, conversant, interactive. Psych: Speech fluent, thoughts congruent, affect normal Course Vital Signs Vital signs: Vital Signs Temperature 36.6 C 11/12/21 10:31 Pulse 75 11/12/21 10:31 Respiratory Rate 18 11/12/21 10:31 Blood Pressure 126/65 11/12/21 10:31 Pulse Oximetry 96 11/12/21 10:31 Temperature 36.6 C 11/12/21 10:31 Temperature Source Tympanic 11/12/21 10:31 Pulse 75 11/12/21 10:31 Respiratory Rate 18 11/12/21 10:31 Respiratory Effort 11/12/21 10:39 Blood Pressure 126/65 11/12/21 10:31 Blood Pressure Position Supine 11/12/21 10:31 Pulse Oximetry 96 11/12/21 10:31 Oxygen Delivery Method Room Air 11/12/21 10:31 Oxygen Flow Rate 0 11/12/21 10:31 Pain Level 10 11/12/21 10:31
--- NOTE | 2021-11-12 10:45 | DI.RAD_ITS ---
Exam(s) XR TIB/FIB RT EXAM: XR TIB/FIB RT CLINICAL HISTORY: Anterior pain. TECHNIQUE: 2D digital imaging was performed. COMPARISON: No exams were available for comparison FINDINGS: Two views-AP and lateral. There is prominent edema in the soft tissues but no evidence of acute fracture. No radiopaque foreig n body. No osseous lesions and no radiographic evidence of osteomyelitis. IMPRESSION: Soft tissue edema. No fractures evident. DATA REPOSITORY: RADIATION DOSE DELIVERED:
[2021-11-12] MEDS: oxyCODONE 10 MG TAB PO (10:52)
--- NOTE | 2021-11-12 12:12 | DI.VRAD_ITS ---
PROCEDURE INFORMATION: Exam: XR Right Tibia and Fibula Exam date and time: 11/12/2021 11:25 AM Age: 36 years old Clinical indication: Other: Fall, trauma TECHNIQUE: Imaging protocol: Radiologic exam of the Right tibia and fibula. Views: 2 views. COMPARISON: CR XR knee RT 3V AP,lat,kane 05/29/2018 11:55 AM FINDINGS: Bones/joints: No acute fracture or malalignment. Joint spaces are maintained. Soft tissues: Soft tissue swelling/edema noted. IMPRESSION: No radiographic evidence of acute osseous injury. Dictated and Authenticated by: Juana Jones MD. Ordering:STEWART Mckeon MD
--- NOTE | 2021-11-12 12:14 | DI.VRAD_ITS ---
PROCEDURE INFORMATION: Exam: XR Right Hip Exam date and time: 11/12/2021 11:32 AM Age: 36 years old Clinical indication: Other: Fall, trauma; Patient HX: Fall, trauma TECHNIQUE: Imaging protocol: Radiologic exam of the Right hip. Views: 2 or 3 views hip with pelvis when performed. COMPARISON: MR LUMBAR SPINE WO 09/19/2021 7:30 AM FINDINGS: Bones/joints: No acute fracture or dislocation. Minimal bilateral hip osteoarthrosis. Soft tissues: Pelvic calcifications, likely phleboliths. IMPRESSION: No radiographic evidence of acute osseous injury. Dictated and Authenticated by: Juana Jones MD. Ordering:STEWART Mckeon MD
--- NOTE | 2021-11-12 12:16 | DI.VRAD_ITS ---
PROCEDURE INFORMATION: Exam: XR Lumbosacral Spine Exam date and time: 11/12/2021 11:33 AM Age: 36 years old Clinical indication: Other: Fall, trauma; Patient HX: Fall, trauma TECHNIQUE: Imaging protocol: Radiologic exam of the lumbosacral spine. Views: 4 or 5 views. COMPARISON: MR LUMBAR SPINE WO 09/19/2021 7:30 AM FINDINGS: Bones/joints: Vertebral body heights and alignment are maintained. Mild degenerative disc disease and facet arthropathy at L4-L5 and L5-S1. Soft tissues: Faint vascular calcifications. IMPRESSION: No radiographic evidence of acute osseous injury. 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 Dictated and Authenticated by: Juana Jones MD. Ordering:STEWART Mckeon MD
--- NOTE | 2021-11-12 12:19 | DI.VRAD_ITS ---
PROCEDURE INFORMATION: Exam: XR Chest Exam date and time: 11/12/2021 11:43 AM Age: 36 years old Clinical indication: Other: Fall, trauma; Patient HX: Fall, trauma TECHNIQUE: Imaging protocol: Radiologic exam of the chest. Views: 1 view. COMPARISON: CR XR CHEST 2V PA LATERAL 10/19/2021 12:22 PM FINDINGS: Lungs: Faint left basilar densities, likely scarring/atelectasis. No focal consolidation. Pleural spaces: No pneumothorax or sizable pleural effusion. Heart/Mediastinum: Similar enlarged cardiac silhouette. No mediastinal widening. Bones/joints: No acute displaced fracture. Similar appearance of midline fractured sternal wires. IMPRESSION: No acute findings. Dictated and Authenticated by: Juana Jones MD. Ordering:STEWART Mckeon MD
--- NOTE | 2021-11-12 12:21 | DI.VRAD_ITS ---
PROCEDURE INFORMATION: Exam: XR Cervical Spine Exam date and time: 11/12/2021 11:13 AM Age: 36 years old Clinical indication: Injury or trauma; Fall; Blunt trauma TECHNIQUE: Imaging protocol: Radiologic exam of the cervical spine. Views: 2 or 3 views. COMPARISON: CT HEAD CERVICAL SPINE WO 10/21/2020 10:19 PM FINDINGS: Bones/joints: Vertebral body heights and alignment are maintained. Multilevel spondylosis, most pronounced at C5-C6 and C6-C7, similar to prior imaging. Absent midline fusion of C1, similar to prior imaging and a normal developmental variant. Median sternotomy. Soft tissues: No acute abnormality. IMPRESSION: No radiographic evidence of acute osseous injury. Multilevel spondylosis, most pronounced at C5-C6 and C6-C7, similar to prior imaging. Dictated and Authenticated by: Juana Jones MD. Ordering:STEWART Mckeon MD
[2021-11-12 12:59] VITALS: BP 111/62; PULSE 66; RESP 17; O2SAT 94
== END 2021-11-12 12:39 | disposition home or self-care (01) ==
PROVIDERS: Emergency Provider Emergency Medicine; PCP Nurse Practitioner Family
DX: S80.11XA Contusion of right lower leg, initial encounter (principal); W10.9XXA Fall (on) (from) unspecified stairs and steps, initial encounter; Y92.009 Unspecified place in unspecified non-institutional (private) residence as the place of occurrence of the external cause
CPT/HCPCS: 99284; 71045; 72040; 72110; 73502; 73590

== ENCOUNTER 2021-11-18 01:07 | Emergency (ER) | payer MEDICAID, SELFPAY ==
[2021-11-18 01:10] VITALS: BP 130/88; PULSE 85; RESP 16; TEMP 37.1; O2SAT 96
--- NOTE | 2021-11-18 01:14 | W.ED.GENAD ---
Discharge Plan Disposition Patient Disposition: HOME Condition: Improving Discharge Details Clinical Impression: Breakthrough seizure Primary Care Provider: Comfort Urban ED Provider: Mike Dawson Home Meds and New Rx's Prescriptions: Continued cbd oil 0.75 ml PO BID Label Comments: 3/4 dropper morning and night citalopram 20 mg tablet 40 mg PO DAILY (DME) Aerochamber MV spacer See Dose Instructions .ROUTE .MEDSUPPLY Qty: 1 Rx Instructions: As directed Flovent HFA 110 mcg/actuation HFA aerosol inhaler 2 puff IH BID meloxicam 15 mg tablet 15 mg PO DAILY Rx Instructions: on hold for upcoming surgery aripiprazole 2 mg Tablet 2 mg PO DAILY divalproex [Depakote] 250 mg tablet,delayed release (DR/EC) See Rx Instructions .ROUTE .COMPLEX Qty: 30 0RF Rx Instructions: Please take 250mg in the AM and 500mg in the evenings. clobazam 10 mg tablet 20 tab PO HS Label Comments: 10mg am, 20mg at night albuterol sulfate 90 mcg/actuation aerosol powdr breath activated 1 inh IH Q4H PRN (Reason: shortness of breath or wheezing) 14 Days Qty: 1 0RF furosemide [Lasix] 40 mg tablet 1 tab PO DAILY Label Comments: Take 1 tablet by mouth twice a day 1 tab in AM, 1 tab at noon furosemide [Lasix] 40 mg tablet 80 mg PO DAILY Label Comments: Take 1 tablet by mouth twice a day 1 tab in AM, 1 tab at noon methocarbamol 500 mg tablet 500 mg PO Q6H PRN (Reason: muscle spasm) Qty: 14 0RF cholecalciferol (vitamin D3) [Vitamin D3] 25 mcg (1,000 unit) Capsule 1,000 unit PO DAILY Discharge Instructions Instructions: Recurrent Seizures in Adults (ED) Additional Instructions: Please follow-up with your scheduled [facility] specialty clinic appointments. Resume normal medications. Your blood work in the emergency department tonight was reassuring. You were given an additional dose of Depakote. Discharge Data Discharge Date/Time-TO BE ENTERED AT DEPARTURE: 11/18/21 03:13 Medical Decision Making 36-year-old female history of seizures, low back pain with radiculopathy. She was brought by EMS for having a partial seizure at home. This was noted by her boyfriend and also the patient. She did not have tonic-clonic movement. She does have a seizure disorder. She states to me her left upper extremity was feeling tense. She has been struggling with low back pain and was seen at the emergency department at [facility] yesterday morning. She underwent CT scan of the chest, abdomen and pelvis which noted a left ovarian cyst. She has [place] [facility] [place] [facility] [place], [facility] [place]. She recently has developed new bilateral lower extremity swelling, and underwent echocardiogram which revealed mild LVH, LVEF of 60%, and known small ASD. Patient placed on a monitored bed. IV access established and screening labs obtained. Valproic acid slightly low therapeutic range 61. Patient given additional 250 mg dose. CBC and chemistries are reassuring. Patient is improving. Her mother attends the bedside and notes/confirms the patient's work-up at [facility] and pending follow-up. Patient is stable and appropriate for discharge to home. Consistent with breakthrough seizure. Lab Data Lab results reviewed: Yes I reviewed the patient's lab results. HPI General Mode of arrival: EMS. Date/Time Provider Initiated Documentation: 11/18/21 01:17. Limitations to Documentation: no limitations. Information obtained by: patient and EMS. History of Present Illness 36 year old F presents to the emergency department with the chief complaint of Back pain and partial seizure, described as moderate, and is localized to the back. Patient reports no radiation. Patient started experiencing this day(s) and it has been intermittent. No relieving factors improve symptom(s), No exacerbating factors reported . Patient notes denies fever/chills, headaches, loss of appetite and syncope. Patient did receive the following treatments prior to arrival, none Related Data Home Medications Medication Instructions Recorded Confirmed cbd oil 0.75 ml PO BID 05/29/18 11/18/21 citalopram 20 mg tablet 40 mg PO DAILY 05/29/18 11/18/21 fluticasone propionate 110 2 puff inhalation BID 05/29/18 10/09/21 mcg/actuation HFA aerosol inhaler (Flovent HFA) inhalational spacing device #1 ea 05/29/18 08/19/19 (Aerochamber MV spacer) aripiprazole 2 mg tablet 2 mg PO DAILY 09/01/18 11/18/21 meloxicam 15 mg tablet 15 mg PO DAILY 04/28/19 11/18/21 divalproex 250 mg tablet,delayed See Rx Instructions .Route 05/03/21 11/18/21 release (Depakote) .COMPLEX #30 tabs clobazam 10 mg tablet 20 tab PO HS 09/13/21 11/18/21 methocarbamol 500 mg tablet 500 mg PO Q6H PRN muscle spasm #14 09/19/21 10/09/21 tabs cholecalciferol (vitamin D3) 25 1,000 unit PO DAILY 10/09/21 11/18/21 mcg (1,000 unit) capsule (Vitamin D3) albuterol sulfate 90 mcg/actuation 1 inh inhalation Q4H PRN shortness 10/19/21 breath activated powder inhaler of breath or wheezing 2 weeks #1 ea furosemide 40 mg tablet (Lasix) 1 tab PO DAILY 11/18/21 11/18/21 furosemide 40 mg tablet (Lasix) 80 mg PO DAILY 11/18/21 11/18/21 Previous Rx's Medication Instructions Recorded divalproex 250 mg tablet,delayed See Rx Instructions .Route 05/03/21 release (Depakote) .COMPLEX #30 tabs methocarbamol 500 mg tablet 500 mg PO Q6H PRN muscle spasm #14 09/19/21 tabs albuterol sulfate 90 mcg/actuation 1 inh inhalation Q4H PRN shortness 10/19/21 breath activated powder inhaler of breath or wheezing 2 weeks #1 ea Allergies Allergy/AdvReac Type Severity Reaction Status Date / Time No Known Allergies Allergy Unverified 11/18/21 01:18 General GM: 3 Review of Systems Narrative: Was seen at the [facility] emergency department November 17. Has prestanding lumbar disc disease. [facility] All Active Problems (Updated 11/18/21 @ 02:39 by Mike Dawson MD) Contusion of muscle (Acute) Breakthrough seizure (Acute) Encounter for IUD removal (Acute) Hx of tubal ligation (Chronic) Knee pain, bilateral (Chronic) Generalized tonic-clonic seizure (Chronic) Onset 28 years old. Last seizure 2018. Neurologist [place] [facility] 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 Contraception management (Acute) 05/[address] Paperwork for tubal sterilization initiated. Sciatica (Acute) Hypertension (Chronic) Depression (Chronic) Migraine headache (Chronic) Hyperlipidemia (Chronic) Asthma (Chronic) Fibromyalgia (Chronic) Treated with marijuana. Patient does not have a medical marijuana card Medical History Grand mal seizure disorder Last seizure August 2018. History of pre-eclampsia Tremor of both hands secondary to Depakote, per pt. 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 Has routine cardiology follow-up Dr. Rai in [place]. Pt. states there is still a slight hole but is monitored Social History Smoking/Tobacco Use Status: Never Smoking risk assessment performed?: Yes Alcohol Intake: never Drug use: Daily Substance use type: marijuana Details: Marijuana daily. CBD oil as needed. Household members: spouse, children and other Details: H-Nolan, D-Magaly, D-Katia Number of Children: 2 Do you need help understanding health information?: Rarely current occupation: Works at [employer] Sexually active: Yes Do you feel safe at home: Yes Do you feel safe in your relationship?: Yes Additional Social history: Daughter Magaly special-needs secondary to difficulty speaking. Katia without issues both children attend [employer] History History 4 Para 2 Hx # Term Pregnancies Multiple births Hx # Pregnancies Ectopic pregnancies AB induced 2 Hx Number of Living Children AB spontaneous Exam Narrative Exam Narrative: GEN: awake, alert, well groomed, interactive. HEAD: Normocephalic, atraumatic ENT: Mucous membranes dry, oropharynx unremarkable, External ear exam unremarkable EYES: PERRL, EOMI NECK: Full ROM, no JOEL, no menigismus CHEST/RESP: Nontender, clear to auscultation bilateral, no wheeze/rhonchi/rales CARDIOVASCULAR: RRR, no murmur, rub devon. 2+ Rad pulse bilateral ABDOMEN: Soft, nontender, no mass. +Bowel sounds EXT: Full ROM, no edema, no rash, sensation intact throughout Neuro: Grossly normal neurologic exam, conversant, interactive. Psych: Speech fluent, thoughts congruent, affect normal
[2021-11-18 01:23] LABS: Abs Immature Grans 0.13 10^3/uL (0.0-0.06); Absolute Basophil Count 0.05 10^3/uL (0.0-0.2); Absolute Eosinophil Count 0.55 10^3/uL (0.0-0.7); Absolute Lymphocyte Count 2.96 10^3/uL (1.2-3.4); Absolute Neutrophil Count 4.49 10^3/uL (1.2-6.7); Basophils % 0.5; Eosinophils % 5.7; HCT 36.9 % (36.0-46.0); HGB 12.4 g/dL (11.2-15.7); Immature Grans % 1.3; Lymphocytes % 30.6; MCH 30.4 pg (27.0-33.0); MCHC 33.6 % (32.0-36.0); MCV 90 fL (80-95); MPV 8.6 fL (8.0-11.0); Monocytes % 15.5; Neutrophils % 46.4; Platelet Count 259 10^3/uL (130-400); RBC 4.08 10^6/uL (3.93-5.22); RDW 11.9 % (11.7-14.6); RDW-SD 39.3 fL; WBC 9.68 10^3/uL (4.4-10.8)
[2021-11-18] MEDS: LORazepam 20 MG/10 ML VIAL IVP (01:33)
[2021-11-18] MEDS: ACETAMINOPHEN 1,000 MG/100 ML BTL 400 MG IVPB (01:33)
[2021-11-18] MEDS: Normal Saline 1,000 ML 1000 ML IV (01:34)
[2021-11-18 01:36] LABS: ALT 30 U/L (14-59); AST 20 U/L (15-37); Albumin 3.1 g/dL (3.4-5.0); Alkaline Phosphatase 33 U/L (46-116); Anion Gap 8.8 mmol/L (3-11); BUN 16 mg/dL (7-18); Bilirubin, Total 0.3 mg/dL (0.2-1.0); CO2 28.2 mmol/L (21.0-32.0); CREATININE 0.8 mg/dL (0.55-1.02); Calcium 9.5 mg/dL (8.5-10.1); Chloride 103 mmol/L (98-107); Estimated GFR 96.66 (mL/min/1.73m2); Glucose 102 mg/dL (74-106); Magnesium 1.9 mg/dL (1.8-2.4); Potassium 4.3 mmol/L (3.5-5.1); Sodium 140 mmol/L (136-145); Total Protein 6.9 g/dL (6.4-8.2)
[2021-11-18 02:16] LABS: VALPROIC ACID 61.9 ug/mL
[2021-11-18] MEDS: Albuterol/Ipratropium 3 ML UPD VIAL UPD (02:45)
[2021-11-18 03:06] VITALS: BP 118/68; PULSE 64; RESP 18; O2SAT 98
== END 2021-11-18 03:13 | disposition home or self-care (01) ==
LOC: ER 02:50
PROVIDERS: Emergency Provider Emergency Medicine; PCP Nurse Practitioner Family
DX: G40.909 Epilepsy, unspecified, not intractable, without status epilepticus (principal); N83.202 Unspecified ovarian cyst, left side; M79.89 Other specified soft tissue disorders
CPT/HCPCS: 80053; 96361; 96365; 96375; 99284; 80164; 83735; 85025; J0131; J3490; J7620

== ENCOUNTER 2021-11-19 02:29 | Emergency (ER) | payer MEDICAID, SELFPAY ==
[2021-11-19 02:32] VITALS: BP 135/71; PULSE 66; RESP 19; TEMP 36.4; O2SAT 98
[2021-11-19] MEDS: LORazepam 1 MG TAB PO (02:43)
[2021-11-19] MEDS: levETIRAcetam 250 MG TAB 1000 MG PO (02:45)
--- NOTE | 2021-11-19 02:53 | ED.GENADUL_ITS ---
Discharge Plan Disposition Patient Disposition: HOME Condition: Improving Discharge Details Clinical Impression: Seizure Primary Care Provider: Comfort Urban ED Provider: Janak Crisostomo Home Meds and New Rx's Prescriptions: New levetiracetam [Keppra] 500 mg tablet 500 mg PO BID 30 Days Qty: 60 0RF No Action cbd oil 0.75 ml PO BID Label Comments: 3/4 dropper morning and night citalopram 20 mg tablet 40 mg PO DAILY (DME) Aerochamber MV spacer See Dose Instructions .ROUTE .MEDSUPPLY Qty: 1 Rx Instructions: As directed Flovent HFA 110 mcg/actuation HFA aerosol inhaler 2 puff IH BID meloxicam 15 mg tablet 15 mg PO DAILY Rx Instructions: on hold for upcoming surgery aripiprazole 2 mg Tablet 2 mg PO DAILY divalproex [Depakote] 250 mg tablet,delayed release (DR/EC) See Rx Instructions .ROUTE .COMPLEX Qty: 30 0RF Rx Instructions: Please take 250mg in the AM and 500mg in the evenings. clobazam 10 mg tablet 20 tab PO HS Label Comments: 10mg am, 20mg at night albuterol sulfate 90 mcg/actuation aerosol powdr breath activated 1 inh IH Q4H PRN (Reason: shortness of breath or wheezing) 14 Days Qty: 1 0RF furosemide [Lasix] 40 mg tablet 1 tab PO DAILY Label Comments: Take 1 tablet by mouth twice a day 1 tab in AM, 1 tab at noon furosemide [Lasix] 40 mg tablet 80 mg PO DAILY Label Comments: Take 1 tablet by mouth twice a day 1 tab in AM, 1 tab at noon methocarbamol 500 mg tablet 500 mg PO Q6H PRN (Reason: muscle spasm) Qty: 14 0RF cholecalciferol (vitamin D3) [Vitamin D3] 25 mcg (1,000 unit) Capsule 1,000 unit PO DAILY Discharge Instructions Instructions: Recurrent Seizures in Adults (ED) Additional Instructions: Please follow-up with your neurologist early next week. Please take medications as provided. Please return to the emergency department for any worsening sympto ms. Medical Decision Making 36-year-old female history of seizure disorder followed by neurology at [facility] presents after breakthrough seizure at home this evening. Patient is alert oriented no acute distress. Moving all extremities. Hemodynamically stable. Cranial nerves II through XII intact, afebrile nontoxic. Patient on multiple antiepileptic medications, was on Keppra at one point however endorses that it made her anxiety slightly worse. Given concern for breakthrough seizures have bleed risk and benefits regarding exacerbation of anxiety and will start patient on Keppra will load with 1 g here, also provide benzodiazepine here in the department for anxiety and seizure prevention. Patient has close follow-up with neurology. Family to come pick her up. Low suspicion for intracranial process such as hemorrhage mass edema or infection. Low suspicion for metabolic derangement or infectious process. HPI General Date/Time Provider Initiated Documentation: 11/19/21 02:32 . HPI Narrative: 36-year-old female history of seizure disorder presents after possible seizure at home. Patient denies any injuries. Follows with [facility] neurology has an appointment within the coming weeks. Related Data Home Medications Medication Instructions Recorded Confirmed cbd oil 0.75 ml PO BID 05/29/18 11/19/21 citalopram 20 mg tablet 40 mg PO DAILY 05/29/18 11/19/21 fluticasone propionate 110 2 puff inhalation BID 05/29/18 11/19/21 mcg/actuation HFA aerosol inhaler (Flovent HFA) inhalational spacing device #1 ea 05/29/18 08/19/19 (Aerochamber MV spacer) aripiprazole 2 mg tablet 2 mg PO DAILY 09/01/18 11/19/21 meloxicam 15 mg tablet 15 mg PO DAILY 04/28/19 11/19/21 divalproex 250 mg tablet,delayed See Rx Instructions .Route 05/03/21 11/19/21 release (Depakote) .COMPLEX #30 tabs clobazam 10 mg tablet 20 tab PO HS 09/13/21 11/19/21 methocarbamol 500 mg tablet 500 mg PO Q6H PRN muscle spasm #14 09/19/21 11/19/21 tabs cholecalciferol (vitamin D3) 25 1,000 unit PO DAILY 10/09/21 11/19/21 mcg (1,000 unit) capsule (Vitamin D3) albuterol sulfate 90 mcg/actuation 1 inh inhalation Q4H PRN shortness 10/19/21 11/19/21 breath activated powder inhaler of breath or wheezing 2 weeks #1 ea furosemide 40 mg tablet (Lasix) 1 tab PO DAILY 11/18/21 11/18/21 furosemide 40 mg tablet (Lasix) 80 mg PO DAILY 11/18/21 11/19/21 levetiracetam 500 mg tablet 500 mg PO BID 30 days #60 tabs 11/19/21 (Keppra) Previous Rx's Medication Instructions Recorded divalproex 250 mg tablet,delayed See Rx Instructions .Route 05/03/21 release (Depakote) .COMPLEX #30 tabs methocarbamol 500 mg tablet 500 mg PO Q6H PRN muscle spasm #14 09/19/21 tabs albuterol sulfate 90 mcg/actuation 1 inh inhalation Q4H PRN shortness 10/19/21 breath activated powder inhaler of breath or wheezing 2 weeks #1 ea levetiracetam 500 mg tablet 500 mg PO BID 30 days #60 tabs 11/19/21 (Keppra) Allergies Allergy/AdvReac Type Severity Reaction Status Date / Time No Known Allergies Allergy Unverified 11/19/21 02:36 General Stated Complaint: Seizure GM: 3 Review of Systems Narrative: Review of Systems Constitutional: negative Eyes: negative ENT: negative Cardiovascular: negative Respiratory: negative Gastrointestinal: negative : negative Musculoskeletal: negative Skin: negative Neurologic: negative Psych: negative PFSH All Active Problems (Updated 11/19/21 @ 02:57 by Janak Crisostomo MD) Contusion of muscle (Acute) Breakthrough seizure (Acute) Seizure (Acute) Encounter for IUD removal (Acute) Hx of tubal ligation (Chronic) Knee pain, bilateral (Chronic) Generalized tonic-clonic seizure (Chronic) Onset 28 years old. Last seizure 2018. [place] 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 Contraception management (Acute) 05/[address] Paperwork for tubal sterilization initiated. Sciatica (Acute) Hypertension (Chronic) Depression (Chronic) Migraine headache (Chronic) Hyperlipidemia (Chronic) Asthma (Chronic) Fibromyalgia (Chronic) Treated with marijuana. Patient does not have a medical marijuana card Medical History Grand mal seizure disorder Last seizure August 2018. History of pre-eclampsia Tremor of both hands secondary to Depakote, per pt. 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 Has routine cardiology follow-up Dr. Rai in [place]. Pt. states there is still a slight hole but is monitored Social History Smoking/Tobacco Use Status: Never Smoking risk assessment performed?: Yes Alcohol Intake: never Drug use: Daily Substance use type: marijuana Details: Marijuana daily. CBD oil as needed. Household members: spouse, children and other Details: H-Nolan, D-Magaly, D- Katia Number of Children: 2 Do you need help understanding health information?: Rarely current occupation: Works at [employer] Sexually active: Yes Do you feel safe at home: Yes Do you feel safe in your relationship?: Yes Additional Social history: Daughter Magaly special-needs secondary to difficulty speaking. Katia without issues both children attend [employer] History History 4 Para 2 Hx # Term Pregnancies Multiple births Hx # Pregnancies Ectopic pregnancies AB induced 2 Hx Number of Living Children AB spontaneous Exam Narrative Exam Narrative: Physical Examination General: alert, awake, cooperative, resting comfortably, no acute distress HEENT: normocephalic, atraumatic; PERRL, EOM intact, conjunctiva normal; no nasal discharge; moist mucous membranes, oral and pharyngeal mucosa normal, tolerating secretions Neck: supple, trachea midline; full ROM Chest: normal to inspection Respiratory: normal respiratory effort, speaking in full sentences, clear to auscultation, no wheezing, rales or rhonchi Cardiac: regular rate, regular rhythm, S1S2 intact, no murmurs rubs or gallops GI: abdomen soft, non-tender, non-distended; no palpable mass or hepatosplenomegaly Skin: no lesions, rashes or trauma appreciated Neuro: AAOx3, normal speech, moving all extremities, cranial nerves II through XII intact, 5 out of 5 strength upper and lower extremities, no ataxia Psych: Appropriate mood and affect Course Vital Signs Vital signs: Vital Signs Temperature 36.4 C 11/19/21 02:32 Pulse 66 11/19/21 02:32 Respiratory Rate 19 11/19/21 02:32 Blood Pressure 135/71 11/19/21 02:32 Pulse Oximetry 98 11/19/21 02:32 Temperature 36.4 C 11/19/21 02:32 Temperature Source Temporal Artery Scan 11/19/21 02:32 Pulse 66 11/19/21 02:32 Respiratory Rate 19 11/19/21 02:32 Respiratory Effort Non-Labored 11/19/21 02:34 Respiratory Depth Normal 11/19/21 02:34 Respiratory Pattern Normal 11/19/21 02:34 Blood Pressure 135/71 11/19/21 02:32 Blood Pressure Position Supine 11/19/21 02:32 Pulse Oximetry 98 11/19/21 02:32 Oxygen Delivery Method Room Air 11/19/21 02:32 Oxygen Flow Rate 0 11/19/21 02:32 Pain Level 0 11/19/21 02:32
== END 2021-11-19 03:31 | disposition home or self-care (01) ==
LOC: ER 03:36
PROVIDERS: Emergency Provider Emergency Medicine; PCP Nurse Practitioner Family
DX: G40.909 Epilepsy, unspecified, not intractable, without status epilepticus (principal)
CPT/HCPCS: 99283; 99285

== ENCOUNTER 2022-01-12 16:57 | Outpatient (REF) | payer MEDICAID, SELFPAY ==
[2022-01-12 20:03] LABS: TSH (W/Ref FT4) 1.82 uIU/mL (0.36-3.74)
[2022-01-14 18:05] LABS: T3,Free 5.8 pg/mL (2.8-5.3)
== END 2022-01-12 16:58 | disposition home or self-care (01) ==
LOC: NCHCN 16:57
PROVIDERS: PCP Nurse Practitioner Family; Visit Provider Nurse Practitioner Family
DX: R63.5 Abnormal weight gain (principal)
CPT/HCPCS: 84443; 84481

== ENCOUNTER 2022-02-13 15:51 | Outpatient (REF) | payer MEDICAID, SELFPAY ==
--- NOTE | 2022-02-13 15:00 | PAPFT_PTH ---
PATIENT: Bessie Chacon LOC: [facility]#:[id number] AGE/SX: 56/F ROOM: RE02/13/[address]: Comfort Urban : 10/25/1965 BED: DIS: 02/13/2022 SPEC #: [id number] RECD: 02/13/22 18:23 STATUS: TERI REOxana #: [id number] FROILAN: 02/13/22 15:[address]: Comfort Urban DEPT: [facility] Cytology RECD BY: Maria Del Carmen Souza Tissues: 1 - CX/ENDOCX FOR PAP SMEARS Procedures: PAP THIN PREP/UVM Screening HPV DNA PROBE Comments: [id number] (HPV 16 & 18/45)
== END 2022-02-13 15:52 | disposition home or self-care (01) ==
LOC: NCHCN 15:51
PROVIDERS: Visit Provider Nurse Practitioner Family
DX: Z12.4 Encounter for screening for malignant neoplasm of cervix (principal); Z11.51 Encounter for screening for human papillomavirus (HPV); R87.810 Cervical high risk human papillomavirus (HPV) DNA test positive
CPT/HCPCS: 88142; 87624

== ENCOUNTER 2022-04-16 07:01 | Emergency (ER) | payer MEDICAID, SELFPAY ==
[2022-04-16 07:14] VITALS: BP 160/107; PULSE 76; RESP 18; TEMP 36.6; O2SAT 98
--- NOTE | 2022-04-16 08:07 | W.ED.GENAD ---
Discharge Plan Disposition Patient Disposition: Home Condition: Stable Discharge Details Clinical Impression: Headache, Viral URI Primary Care Provider: Comfort Urban ED Provider: Parisa Wilder Home Meds and New Rx's Prescriptions: New zacoqrikjq-gfwmypanxseqr-izwk [Fioricet] 50-300-40 mg capsule 1 cap PO Q8H PRN (Reason: headache) Qty: 7 0RF Rx Instructions: Please take 1 capsule by mouth up to 3 times daily as needed for headache. Do not take more than 3 in a 24-hour period. No Action cbd oil 0.75 ml PO BID Patient Comments: 3/4 dropper morning and night citalopram 20 mg tablet 40 mg PO DAILY (DME) Aerochamber MV spacer See Dose Instructions .ROUTE .MEDSUPPLY Qty: 1 Rx Instructions: As directed Flovent HFA 110 mcg/actuation HFA aerosol inhaler 2 puff IH BID meloxicam 15 mg tablet 15 mg PO DAILY Rx Instructions: on hold for upcoming surgery aripiprazole 2 mg Tablet 2 mg PO DAILY divalproex [Depakote] 250 mg tablet,delayed release (DR/EC) See Rx Instructions .ROUTE .COMPLEX Qty: 30 0RF Rx Instructions: Please take 250mg in the AM and 500mg in the evenings. clobazam 10 mg tablet 20 tab PO HS Patient Comments: 10mg am, 20mg at night albuterol sulfate 90 mcg/actuation aerosol powdr breath activated 1 inh IH Q4H PRN (Reason: shortness of breath or wheezing) 14 Days Qty: 1 0RF furosemide [Lasix] 40 mg tablet 1 tab PO DAILY Patient Comments: Take 1 tablet by mouth twice a day 1 tab in AM, 1 tab at noon furosemide [Lasix] 40 mg tablet 80 mg PO DAILY Patient Comments: Take 1 tablet by mouth twice a day 1 tab in AM, 1 tab at noon methocarbamol 500 mg tablet 500 mg PO Q6H PRN (Reason: muscle spasm) Qty: 14 0RF cholecalciferol (vitamin D3) [Vitamin D3] 25 mcg (1,000 unit) Capsule 1,000 unit PO DAILY Discharge Instructions Instructions: Upper Respiratory Infection (ED), General Headache (ED) Additional Instructions: COVID and flu swabs are negative. I do suspect that this is a migraine headache or tension headache. Please increase oral fluids. A prescription for Fioricet was sent to the pharmacy you have on file. Please take your medication as prescribed as needed for severe headache. Take 1 and you can take up to 2 more if needed for headache in a 24-hour. Do not take more than 3 tablets. Follow up with primary care provider in 3-5 days. Return to ED sooner if any worsening or concerns. Increase oral fluids. Referrals: Comfort Urban [Primary Care Provider] - 3 days Discharge Data Discharge Date/Time-TO BE ENTERED AT DEPARTURE: 04/16/22 09:23 Medical Decision Making 36-year-old female presents to the ER with a chief complaint of frontal headache, sinus stuffiness nausea, and slight sore throat which she reports got worse last night. She reports that her daughter does have the flu. She is sensitive to light. She does report some history of migraine and this is typical of her migraines. Ibuprofen Zofran and rapid fluids COVID swab ordered. Patient has no focal neurodeficits. Will push fluids. Differential diagnosis includes URI, sinusitis, COVID flu, migraine, tension headache. COVID flu negative. We will send patient home with Fioricet as needed, home care and follow-up with PCP. This text was generated using [employer] dictation system, please disregard any oddities of phrase or misspellings. HPI General Mode of arrival: ambulatory. Date/Time Provider Initiated Documentation: 04/16/22 07:56. Limitations to Documentation: no limitations. Information obtained by: patient, RN notes reviewed and old records reviewed. HPI Narrative: 36-year-old female presents to the ER with a chief complaint of frontal headache, sinus stuffiness nausea, and slight sore throat which she reports got worse last night. She reports that her daughter does have the flu. She is sensitive to light. She does report some history of migraine and this is typical of her migraines. She denies any recent head injuries. She is alert and oriented no focal neurodeficits noted on exam. Past medical history includes preeclampsia, grandmal seizure disorder. She also has a history of a recent lumbar fusion denies loss of bowel or bladder control, numbness in her legs. Related Data Home Medications Medication Instructions Recorded Confirmed cbd oil 0.75 ml PO BID 05/29/18 11/19/21 citalopram 20 mg tablet 40 mg PO DAILY 05/29/18 11/19/21 fluticasone propionate 110 2 puff inhalation BID 05/29/18 11/19/21 mcg/actuation HFA aerosol inhaler (Flovent HFA) inhalational spacing device #1 ea 05/29/18 08/19/19 (Aerochamber MV spacer) aripiprazole 2 mg tablet 2 mg PO DAILY 09/01/18 11/19/21 meloxicam 15 mg tablet 15 mg PO DAILY 04/28/19 11/19/21 divalproex 250 mg tablet,delayed See Rx Instructions .Route 05/03/21 11/19/21 release (Depakote) .COMPLEX #30 tabs clobazam 10 mg tablet 20 tab PO HS 09/13/21 11/19/21 methocarbamol 500 mg tablet 500 mg PO Q6H PRN muscle spasm #14 09/19/21 11/19/21 tabs cholecalciferol (vitamin D3) 25 1,000 unit PO DAILY 10/09/21 11/19/21 mcg (1,000 unit) capsule (Vitamin D3) albuterol sulfate 90 mcg/actuation 1 inh inhalation Q4H PRN shortness 10/19/21 11/19/21 breath activated powder inhaler of breath or wheezing 2 weeks #1 ea furosemide 40 mg tablet (Lasix) 1 tab PO DAILY 11/18/21 11/18/21 furosemide 40 mg tablet (Lasix) 80 mg PO DAILY 11/18/21 11/19/21 gqrqxljkqj-tnxafwtzktosv-tlbnjypk 1 cap PO Q8H PRN headache #7 caps 04/16/22 50 mg-300 mg-40 mg capsule (Fioricet) Previous Rx's Medication Instructions Recorded divalproex 250 mg tablet,delayed See Rx Instructions .Route 05/03/21 release (Depakote) .COMPLEX #30 tabs methocarbamol 500 mg tablet 500 mg PO Q6H PRN muscle spasm #14 09/19/21 tabs albuterol sulfate 90 mcg/actuation 1 inh inhalation Q4H PRN shortness 10/19/21 breath activated powder inhaler of breath or wheezing 2 weeks #1 ea rifgkvoqug-qzcwvcnobclmt-dvhondkw 1 cap PO Q8H PRN headache #7 caps 04/16/22 50 mg-300 mg-40 mg capsule (Fioricet) Allergies Allergy/AdvReac Type Severity Reaction Status Date / Time No Known Allergies Allergy Unverified 11/19/21 02:36 General Stated Complaint: Headache GM: 3 Review of Systems All systems reviewed & are unremarkable except as noted in HPI and below Constitutional Constitutional: Reports headache(s) ENT Ears, Nose, Mouth, and Throat: Reports headache(s) Neurologic Neurologic: Reports headache(s) PFSH All Active Problems (Updated 04/16/22 @ 08:14 by Parisa Wilder NP) Headache (Acute) Viral URI (Acute) Encounter for IUD removal (Acute) Hx of tubal ligation (Chronic) Knee pain, bilateral (Chronic) Generalized tonic-clonic seizure (Chronic) Onset 28 years old. Last seizure 2018. [place] [facility] 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 Contraception management (Acute) 05/[address] Paperwork for tubal sterilization initiated. Sciatica (Acute) Hypertension (Chronic) Depression (Chronic) Migraine headache (Chronic) Hyperlipidemia (Chronic) Asthma (Chronic) Fibromyalgia (Chronic) Treated with marijuana. Patient does not have a medical marijuana card Medical History Grand mal seizure disorder Last seizure August 2018. History of pre-eclampsia Tremor of both hands secondary to Depakote, per pt. 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 Has routine cardiology follow-up Dr. Rai in [place]. Pt. states there is still a slight hole but is monitored Social History Smoking/Tobacco Use Status: Never Smoking risk assessment performed?: Yes Alcohol Intake: never Drug use: Daily Substance use type: marijuana Details: Marijuana daily. CBD oil as needed. Household members: spouse, children and other Details: Anirudh Swann D-Samantha Number of Children: 2 Do you need help understanding health information?: Rarely current occupation: Works at [employer] Sexually active: Yes Do you feel safe at home: Yes Do you feel safe in your relationship?: Yes Additional Social history: Daughter Magaly special-needs secondary to difficulty speaking. Katia without issues both children attend [employer] History History 4 Para 2 Hx # Term Pregnancies Multiple births Hx # Pregnancies Ectopic pregnancies AB induced 2 Hx Number of Living Children AB spontaneous Exam Narrative Exam Narrative: Constitutional: Alert and oriented x3. Appears stated age. Normal body habitus. Head: Normocephalic, no trauma. Eyes: Pupils PERRL, Red reflex noted, EOM's intact. Eyelids symmetrical without lesions, discharge, or swelling. ENT: Bilateral TM's WNL, External ear normal to inspection, no mastoid TTP, swelling, or erythema, Nasal turbinates WNL, no nasal discharge. Normal dentition, Posterior pharynx WNL, no exudate. Chest: RRR, Normal S1, S2, distal pulses intact. Resp: Lungs clear to auscultation bilaterally, no wheezes, rales, or rhonchi. Abdomen: Soft, non-distended, Normoactive bowel sounds all 4 quads. Musculoskeletal: Normal gait, 5/5 strength to all four extremities. Skin: No suspicious rashes or lesions. Capillary refill less than 2 sec. Neurologic: Cranial nerves II-XII intact. Alert and oriented x 3. Motor: No deficits noted. Sensory: Intact bilaterally all 4 extremities. Reflexes: DTR's intact bilaterally.. Hematologic/Lymphatic: No ecchymosis, no lymphadenopathy. Course Vital Signs Vital signs: Vital Signs Temperature 36.6 C 04/16/22 07:14 Pulse 76 04/16/22 07:14 Respiratory Rate 18 04/16/22 07:14 Blood Pressure 160/107 H 04/16/22 07:14 Pulse Oximetry 98 04/16/22 07:14 Temperature 36.6 C 04/16/22 07:14 Temperature Source Oral 04/16/22 07:14 Pulse 76 04/16/22 07:14 Respiratory Rate 18 04/16/22 07:14 Respiratory Effort Normal, Non-Labored 04/16/22 07:17 Blood Pressure 160/107 H 04/16/22 07:14 Blood Pressure Position Sitting 04/16/22 07:14 Pulse Oximetry 98 04/16/22 07:14 Oxygen Delivery Method Room Air 04/16/22 07:14 Oxygen Flow Rate 0 04/16/22 07:14
[2022-04-16] MEDS: Ibuprofen 600 MG TAB PO (08:20)
[2022-04-16] MEDS: Ondansetron O.D.T. 4 MG TABEF PO (08:21)
== END 2022-04-16 09:23 | disposition home or self-care (01) ==
PROVIDERS: Emergency Provider Registered Nurse Emergency; PCP Nurse Practitioner Family
DX: J06.9 Acute upper respiratory infection, unspecified (principal); I10 Essential (primary) hypertension; J45.909 Unspecified asthma, uncomplicated; G43.909 Migraine, unspecified, not intractable, without status migrainosus; Z79.51 Long term (current) use of inhaled steroids
CPT/HCPCS: 99283; 99284

== ENCOUNTER 2022-07-05 20:52 | Emergency (ER) | payer MEDICAID, SELFPAY ==
[2022-07-05 20:57] VITALS: BP 144/95; PULSE 80; RESP 16; TEMP 36.6; O2SAT 98
--- NOTE | 2022-07-05 21:21 | ED.GENADUL_ITS ---
Discharge Plan Disposition Patient Disposition: Home Condition: Good Discharge Details Clinical Impression: Fibroid, uterine Primary Care Provider: [facility] ED Provider: Julian Zapata Home Meds and New Rx's Prescriptions: No Action cbd oil 0.75 ml PO BID Patient Comments: 3/4 dropper morning and night citalopram 20 mg tablet 40 mg PO DAILY (DME) Aerochamber MV spacer See Dose Instructions .ROUTE .MEDSUPPLY Qty: 1 Rx Instructions: As directed aripiprazole 2 mg Tablet 2 mg PO DAILY clobazam 10 mg tablet 20 tab PO HS Patient Comments: 10mg am, 20mg at night albuterol sulfate 90 mcg/actuation aerosol powdr breath activated 1 inh IH Q4H PRN (Reason: shortness of breath or wheezing) 14 Days Qty: 1 0RF celecoxib 200 mg capsule 200 mg PO BID Patient Comments: TAKE ONE CAPSULE BY MOUTH TWICE A DAY NEEDED FOR PAIN cholecalciferol (vitamin D3) [Vitamin D3] 25 mcg (1,000 unit) Capsule 1,000 unit PO DAILY Discharge Instructions Instructions: Abdominal Pain (ED) Additional Instructions: At this time your CAT scan shows evidence of what appears to be uterine fibroids. This is likely a component of your pain. Please continue to take Tyl enol and Motrin as needed for pain. It is important that you have these evaluated further. We have ordered an outpatient ultrasound for further assessment. 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 If you notice any worsening of your symptoms, or any new symptoms such as vomiting, diarrhea, fever, chills, shortness of breath, chest pain, numbness, weakness, or fainting , please return immediately to the emergency department for reevaluation. Please follow up with your primary care provider as soon as possible for reassessment and re evaluation. As always, it was a pleasure participating in your medical care today. Referrals: Comfort Urban [Primary Care Provider] - Medical Decision Making 36-year-old female with a past medical history of a tubal ligation, seizures, high cholesterol, fibromyalgia, L4-L5 fusion 7 months ago at [facility], and chronic diarrhea, presents today for bilateral groin and lower abdominal pain. Patient states that he has been present for the last few weeks. She has also had associated left hip pain ever since her surgery on her spine 7 months ago. The pain in her groin has been relatively consistent in presence, but comes and goes in severity, however over the last 24 hours that is notably gotten worse. She also had intermittent chills this evening which was also concerning for her. She denies any change in her bowel habits. She denies any urinary frequency. She denies any vomiting. No other complaints at this time. No other modifying factors. Exam demonstrates mild achiness on palpation of the lower abdomen. No evidence of an acute surgical abdomen. No guarding or rebound. Mild achiness in the left hip which the patient states is baseline. No redness or warmth. No pain out of proportion in the left hip. Symptoms at this time appear clinically inconsistent with septic joint, or an acute surgical abdomen or hernia. However appendicitis or diverticulitis is certainly on the differential. We will monitor closely treat the patient's pain, and reassess. 12:20 AM Laboratory work-up has returned normal, urinalysis negative for infection. On reassessment patient feels much better. CT scan shows evidence of uterine lobularity, concerning for fibroid disease. Recommend outpatient ultrasound. We will place an outpatient ultrasound order for this. Patient otherwise feels well, no other concerning findings noted on exam. Patient stable for discharge. We will place outpatient ultrasound order. Patient request to follow-up with her obstetrics well drill operator cable tool at [facility]. Recommend continued NSAIDs at home as needed. Discussed red flags for which to return. I have extensively reviewed the treatment plan and discharge instructions with the patient. I have addressed all patient concerns at this time. The patient was made aware of what symptoms to monitor for that would warrant a return to the emergency department. Discussed the plan with the patient, they demonstrate verbal understanding and agreement with our assessment and plan at this time. The documentation in this chart was dictated using [employer]wall dictation software. Please excuse any dictation errors. FINDINGS: Lungs: Lung bases are clear. Pleural spaces: No pleural effusion. Heart: Normal heart size. No pericardial effusion. No coronary artery atherosclerotic calcium is visible period previous open-heart surgery. Liver: Mild fatty liver infiltration. No focal hepatic lesions. Gallbladder and bile ducts: The gallbladder is normal in size and shape. No stones or inflammatory changes. Pancreas: The pancreas is normal in contour and attenuation. Spleen: The spleen is normal in size, contour and attenuation. Adrenal glands: The adrenal glands are normal in size and contour bilaterally. Kidneys and ureters: The kidneys bilaterally are unremarkable. Normal attenutation. No hydronephrosis. No calculi. Stomach and bowel: Gastric morphology is unremarkable. No edema. No gastric outlet obstruction.Small bowel loops are normal in course and caliber. There is no mucosal edema or bowel wall thickening. No obstructive features.The colon contains formed fecal material. There is no bowel wall thickening. No inflammatory features. No obstruction. Appendix: A non inflamed appendix is identified. Series 4, image 63. Intraperitoneal space: No free fluid in the abdomen or pelvis. No free air. Vasculature: Unremarkable. No abdominal aortic aneurysm. Lymph nodes: Unremarkable. No enlarged lymph nodes. Urinary bladder: Urinary bladder is unremarkable in appearance. No wall thickening. No intravesicular calculi. No intravesicular gas. Reproductive: Uterus with mild lobularity which is likely related to small f ibroids. No dominant uterine mass. Endometrium is unremarkable. Bones/joints: Previous lumbar fusion L4-L5. No acute fracture. Soft tissues: Unremarkable. IMPRESSION: 1. No acute findings of the abdomen or pelvis. 2. Mild fatty liver change. 3. Previous L4-L5 lumbar fusion. 4. Mild uterine lobularity likely represents minor fibroid disease. A nonemergent follow-up ultrasound of the pelvis may be warranted. Thank you for allowing us to participate in the care of your patient. Dictated and Authenticated by: Deonte Jeff MD 07/05/2022 11:12 PM Eastern Time ([place] & [place]) HPI General Date/Time Provider Initiated Documentation: 07/05/22 21:06 . HPI Narrative: 36-year-old female with a past medical history of a tubal ligation, seizures, high cholesterol, fibromyalgia, L4-L5 fusion 7 months ago at [facility], and chronic diarrhea, presents today for bilateral groin and lower abdominal pain. Patient states that he has been present for the last few weeks. She has also had associated left hip pain ever since her surgery on her spine 7 months ago. The pain in her groin has been relatively consistent in presence, but comes and goes in severity, however over the last 24 hours that is notably gotten worse. She also had intermittent chills this evening which was also concerning for her. She denies any change in her bowel habits. She denies any urinary frequency. She denies any vomiting. No other complaints at this time. No other modifying factors. Related Data Home Medications Medication Instructions Recorded Confirmed cbd oil 0.75 ml PO BID 05/29/18 07/05/22 citalopram 20 mg tablet 40 mg PO DAILY 05/29/18 07/05/22 inhalational spacing device #1 ea 05/29/18 08/19/19 (Aerochamber MV spacer) aripiprazole 2 mg tablet 2 mg PO DAILY 09/01/18 07/05/22 clobazam 10 mg tablet 20 tab PO HS 09/13/21 07/05/22 cholecalciferol (vitamin D3) 25 1,000 unit PO DAILY 10/09/21 07/05/22 mcg (1,000 unit) capsule (Vitamin D3) albuterol sulfate 90 mcg/actuation 1 inh inhalation Q4H PRN shortness 10/19/21 07/05/22 breath activated powder inhaler of breath or wheezing 2 weeks #1 ea celecoxib 200 mg capsule 200 mg PO BID 07/05/22 07/05/22 Previous Rx's Medication Instructions Recorded albuterol sulfate 90 mcg/actuation 1 inh inhalation Q4H PRN shortness 10/19/21 breath activated powder inhaler of breath or wheezing 2 weeks #1 ea Allergies Allergy/AdvReac Type Severity Reaction Status Date / Time No Known Allergies Allergy Unverified 07/05/22 21:02 General Stated Complaint: Abd Prob GM: 3 Review of Systems All systems reviewed & are unremarkable except as noted in HPI and below PFSH All Active Problems (Updated 07/05/22 @ 23:34 by Julian Zapata DO) Fibroid, uterine (Acute) Encounter for IUD removal (Acute) Hx of tubal ligation (Chronic) Knee pain, bilateral (Chronic) Generalized tonic-clonic seizure (Chronic) Onset 28 years old. Last seizure 2018. Neurologist at [facility] [place] 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 Contraception management (Acute) 05/[address] Paperwork for tubal sterilization initiated. Sciatica (Acute) Hypertension (Chronic) Depression (Chronic) Migraine headache (Chronic) Hyperlipidemia (Chronic) Asthma (Chronic) Fibromyalgia (Chronic) Treated with marijuana. Patient does not have a medical marijuana card Medical History Grand mal seizure disorder Last seizure August 2018. History of pre-eclampsia Tremor of both hands secondary to Depakote, per pt. 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 Has routine cardiology follow-up Dr. Rai in [place]. Pt. states there is still a slight hole but is monitored Social History Smoking/Tobacco Use Status: Never Smoking risk assessment performed?: Yes Alcohol Intake: never Drug use: Daily Substance use type: marijuana Details: Marijuana daily. CBD oil as needed. Household members: spouse, children and other Details: H-Nolan, D-Magaly, Vinod- Katia Number of Children: 2 Do you need help understanding health information?: Rarely current occupation: Works at [employer] Sexually active: Yes Do you feel safe at home: Yes Do you feel safe in your relationship?: Yes Additional Social history: Daughter Maagly special-needs secondary to difficulty speaking. Katia without issues both children attend [employer] History History 4 Para 2 Hx # Term Pregnancies Multiple births Hx # Pregnancies Ectopic pregnancies AB induced 2 Hx Number of Living Children AB spontaneous Exam Narrative Exam Narrative: 1.Const: Well-nourished, Well-developed, appearing stated age 2.Eyes: PERRL, no conjunctival injection, and symmetrical lids. 3.ENT: Atraumatic external nose and ears. Moist MM. Neck: Symmetric, trachea midline, No thyromegaly. 4.CVS: +S1/S2, No murmurs or gallops. Peripheral pulses 2+ and equal in all extremities. Brisk capillary refill in all extremities. 5.RESP: Unlabored respiratory effort. Clear to auscultation bilaterally. No wheezes rales or rhonchi 6.GI: Soft, nondistended, no guarding or rebound. Mild lower abdominal tenderness in the right lower and left lower quadrant. Negative Gilbert sign. No saddle anesthesia. 7.MSK: Normocephalic/Atraumatic, Extremities w/o deformity or ttp No cyanosis or clubbing, Normal movement of all extremities. No redness warmth or swelling over the left hip or right hip. Mild achiness with movement of the left hip. Patient states that this is baseline. No midline cervical thoracic or lumbar spine tenderness. Postoperative incision site is clean dry and intact. 8.Skin: Warm, Dry. No rashes or lesions. 9.Neuro: metal bumper II-XII grossly intact. Sensation grossly intact, no focal neurologic deficits. 10.Psych: (AAO) x3. Appropriate mood and affect Course Vital Signs Vital signs: Vital Signs Temperature 36.6 C 07/05/22 20:57 Pulse 80 07/05/22 20:57 Respiratory Rate 16 07/05/22 20:57 Blood Pressure 144/95 H 07/05/22 20:57 Pulse Oximetry 98 07/05/22 20:57 Temperature 36.6 C 07/05/22 20:57 Temperature Source Tympanic 07/05/22 20:57 Pulse 80 07/05/22 20:57 Respiratory Rate 16 07/05/22 20:57 Respiratory Effort Normal 07/05/22 21:02 Blood Pressure 144/95 H 07/05/22 20:57 Blood Pressure Position Sitting 07/05/22 20:57 Pulse Oximetry 98 07/05/22 20:57 Oxygen Delivery Method Room Air 07/05/22 20:57 Oxygen Flow Rate 0 07/05/22 20:57 Pain Level 8 07/05/22 20:57
[2022-07-05 21:26] LABS: Abs Immature Grans 0.06 10^3/uL (0.0-0.06); Absolute Basophil Count 0.05 10^3/uL (0.0-0.2); Absolute Eosinophil Count 0.56 10^3/uL (0.0-0.7); Absolute Lymphocyte Count 3.65 10^3/uL (1.2-3.4); Absolute Monocyte Count 1.13 10^3/uL (0.1-0.8); Basophils % 0.4; HCT 38.6 % (36.0-46.0); HGB 13.6 g/dL (11.2-15.7); Immature Grans % 0.5; Lymphocytes % 32.4; MCH 30.1 pg (27.0-33.0); MCHC 35.2 % (32.0-36.0); MCV 85 fL (80-95); MPV 8.5 fL (8.0-11.0); Neutrophils % 51.7; Platelet Count 288 10^3/uL (130-400); RBC 4.52 10^6/uL (3.93-5.22); RDW 12.5 % (11.7-14.6); WBC 11.26 10^3/uL (4.4-10.8)
[2022-07-05 21:27] LABS: Absolute Neutrophil Count 5.82 10^3/uL (1.2-6.7)
[2022-07-05] MEDS: Normal Saline 500 ML IV (21:30)
[2022-07-05] MEDS: ACETAMINOPHEN 1,000 MG/100 ML BTL 400 MG IVPB (21:30)
[2022-07-05 21:41] LABS: ALT 38 U/L (14-59); AST 19 U/L (15-37); Albumin 3.6 g/dL (3.4-5.0); Alkaline Phosphatase 44 U/L (46-116); Anion Gap 9.3 mmol/L (3-11); BUN 11 mg/dL (7-18); Bilirubin, Total 0.2 mg/dL (0.2-1.0); CO2 23.7 mmol/L (21.0-32.0); CREATININE 0.7 mg/dL (0.55-1.02); Calcium 9.2 mg/dL (8.5-10.1); Chloride 103 mmol/L (98-107); Estimated GFR 113.46 (mL/min/1.73m2); Glucose 95 mg/dL (74-106); Lipase 18 U/L (16-77); Potassium 3.8 mmol/L (3.5-5.1); Sodium 136 mmol/L (136-145); Total Protein 7.3 g/dL (6.4-8.2)
--- NOTE | 2022-07-05 21:45 | DI.CT_ITS ---
Exam(s) CT ABDOMEN PELVIS W EXAM: CT ABDOMEN PELVIS W CLINICAL HISTORY: bilateral groin pain, r/o appe/divertic. TECHNIQUE: Imaging Protocol: Axial computed tomography images with coronal and sagittal reformatted images were created and reviewed CONTRAST MATERIAL: Intravenous: Omnipaque-350 100cc Oral: None COMPARISON: No exams were available for comparison FINDINGS: VISUALIZED LUNG BASES: No nodules nor pleural effusions evident. ABDOMEN: There is no ascites. LIVER: Mild hepatic steatosis noted. There are no discrete focal hepatic lesions. No dilated intrah epatic ducts. GALLBLADDER/BILIARY: No obvious gallbladder pathology. CBD is not dilated. PANCREAS: No evidence of pancreatic mass nor dilatation of the pancreatic duct. SPLEEN: Spleen is not enlarged. No obvious intrasplenic lesions. Splenic and portal veins are paten t. ADRENALS: There are no significant adrenal masses. KIDNEYS:No cysts nor solid masses in the kidneys. No calculi. No hydronephrosis. ABDOMINAL AORTA: Abdominal aorta is not enlarged. LYMPH NODES:There is a slightly prominent lymph node just anterior to the aortic bifurcation which me asures 1.0 x 0.8 cm. No gross para-aortic adenopathy. There is no adenopathy along the iliac chains in the pelvis and there is no prominent inguinal adenopathy. There few shoddy nodes noted in both i nguinal regions. ABDOMINAL WALL: No evidence of significant anterior abdominal wall nor inguinal hernia. GI: There is no evidence of bowel obstruction, free air, nor abscess. PELVIS: GI: No evidence of appendicitis.No evidence of sigmoid diverticulitis. LYMPH NODES: There is no intrapelvic nor inguinal adenopathy. REPRODUCTIVE: Uterus and ovaries appear age-appropriate. URINARY BLADDER: Slightly uniformly thickened wall, possibly related to cystitis. No gas in the wall . OSSEOUS: Posterior fusion hardware noted in the lumbosacral spine at L4-5 level. No listhesis. Ther e is, however, some lucency around the right intra pedicular screw at the L5 level, indicating loosen ing. No obvious evidence of osteomyelitis. IMPRESSION: 1. No acute findings in the abdomen and pelvis. 2. There is a solitary slightly enlarged 1 cm lymph node anterior to the aortic bifurcation. There i s no gross lymphadenopathy evident. No ascites. 3. Mild hepatic steatosis. No discrete focal hepatic lesions. 4. L4-5 fusion hardware. There is intra osseous lucency around the right intra pedicular screw at L5 level indicating element of loosening. First read by [facility]. RADIATION DOSE DELIVERED: 1,058.2mGy.cm Total DLP DATA REPOSITORY: All CT scans at this facility are submitted to the National Radiology Data Registry (NRDR) Dose Index Registry (DIR) with the [employer] (ACR). RADIATION OPTIMIZATION: All CT scans at this facility use at least one of these dose optimization te chniques: automated exposure control; mA and/or kV adjustment per patient size (includes targeted exa ms where dose is matched to clinical indication); or iterative reconstruction.
[2022-07-05 22:17] LABS: Bilirubin Negative (Negative); Blood Negative (Negative); Clarity Clear (Clear); Glucose Negative (Negative); Ketones Negative (Negative); Leukocyte Esterase Negative (Negative); Nitrite Negative (Negative); Specific Gravity 1.025 (1.005-1.025); Urobilinogen 0.2 mg/dL (Up to 0.2)
[2022-07-05] MEDS: Omnipaque 350 MG/ML 100 ML BTL IJ (22:31)
[2022-07-05] MEDS: Normal Saline - Diluent 50 ML VIAL IJ (22:32)
--- NOTE | 2022-07-05 23:12 | DI.VRAD_ITS ---
PROCEDURE INFORMATION: Exam: CT Abdomen And Pelvis With Contrast Exam date and time: 07/05/2022 10:32 PM Age: 36 years old Clinical indication: Abdominal pain; Localized; Lower; Prior surgery; Surgery date: 6+ months; Surgery type: Lumbar surgery; Additional info: Lower abd pain TECHNIQUE: Imaging protocol: Computed tomography of the abdomen and pelvis with contrast. Radiation optimization: All CT scans at this facility use at least one of these dose optimization techniques: automated exposure control; mA and/or kV adjustment per patient size (includes targeted exams where dose is matched to clinical indication); or iterative reconstruction. Contrast material: OMNI 350; Contrast volume: 100 ml; Contrast route: INTRAVENOUS (IV); COMPARISON: CR XR HIP RT COMPLETE AP PELVIS 11/12/2021 11:32 AM FINDINGS: Lungs: Lung bases are clear. Pleural spaces: No pleural effusion. Heart: Normal heart size. No pericardial effusion. No coronary artery atherosclerotic calcium is visible period previous open-heart surgery. Liver: Mild fatty liver infiltration. No focal hepatic lesions. Gallbladder and bile ducts: The gallbladder is normal in size and shape. No stones or inflammatory changes. Pancreas: The pancreas is normal in contour and attenuation. Spleen: The spleen is normal in size, contour and attenuation. Adrenal glands: The adrenal glands are normal in size and contour bilaterally. Kidneys and ureters: The kidneys bilaterally are unremarkable. Normal attenutation. No hydronephrosis. No calculi. Stomach and bowel: Gastric morphology is unremarkable. No edema. No gastric outlet obstruction.Small bowel loops are normal in course and caliber. There is no mucosal edema or bowel wall thickening. No obstructive features.The colon contains formed fecal material. There is no bowel wall thickening. No inflammatory features. No obstruction. Appendix: A non inflamed appendix is identified. Series 4, image 63. Intraperitoneal space: No free fluid in the abdomen or pelvis. No free air. Vasculature: Unremarkable. No abdominal aortic aneurysm. Lymph nodes: Unremarkable. No enlarged lymph nodes. Urinary bladder: Urinary bladder is unremarkable in appearance. No wall thickening. No intravesicular calculi. No intravesicular gas. Reproductive: Uterus with mild lobularity which is likely related to small fibroids. No dominant uterine mass. Endometrium is unremarkable. Bones/joints: Previous lumbar fusion L4-L5. No acute fracture. Soft tissues: Unremarkable. IMPRESSION: 1. No acute findings of the abdomen or pelvis. 2. Mild fatty liver change. 3. Previous L4-L5 lumbar fusion. 4. Mild uterine lobularity likely represents minor fibroid disease. A nonemergent follow-up ultrasound of the pelvis may be warranted. Dictated and Authenticated by: Deonte Jeff MD. Ordering:HIMA Jordan MD
[2022-07-05 23:38] VITALS: BP 137/72; PULSE 69; RESP 16; O2SAT 98
--- NOTE | 2022-07-12 15:07 | NUR.NOTE ---
Nursing Note: Maricruz CANO; called stating patient called asking about the US that was to be ordered. I checked the provider documentation and it states that due to the results of the CT that patient needed US for uterine fibroids. I made out an outpatient order form and had Dr Mcdaniel sign the form to be sent to [facility].
== END 2022-07-05 23:40 | disposition home or self-care (01) ==
PROVIDERS: Emergency Provider Student in an Organized Health Care Education/Training Program; PCP Nurse Practitioner Family
DX: D25.9 Leiomyoma of uterus, unspecified (principal)
CPT/HCPCS: 36415; 80053; 81025; 83690; 96365; 99285; 74177; 81003; 85025; 99284; J0131; J3490

== ENCOUNTER 2022-07-19 01:58 | Outpatient (CLI) | payer MEDICAID, SELFPAY ==
--- NOTE | 2022-07-19 | DI.US_ITS ---
Exam(s) US PELVIS TRANSVAGINAL EXAM: US PELVIS TRANSVAGINAL CLINICAL HISTORY: CT SCAN SHOWS UTERINE FIBROIDS, LOWER ABD PAIN. TECHNIQUE: Transabdominal and transvaginal pelvic ultrasound was performed using standard protocol. COMPARISON: CT CT ABDOMEN PELVIS W from 07/05/2022 FINDINGS: UTERUS: Position: Anteverted. Size: 10.3 long by 4.4 AP by 5.5 transverse cm Endometrium: 0.7 cm. Normal for patient's menstrual status. Myometrium: Unremarkable. No discrete masses are seen to suggest fibroids. Cervix: Unremarkable. OVARIES: Right: 3.3 x 2.1 x 2.3 cm Cyst or mass: No suspicious cystic or solid masses. Left: 2.7 x 2.3 x 2.6 cm Cyst or mass: No suspicious cystic or solid masses. DOPPLER: Color: Symmetric and uniform flow to both ovaries. CUL-DE-SAC: Free fluid: None. Other: None. IMPRESSION: 1. Normal-appearing uterus with endometrial stripe within normal limits. 2. Unremarkable bilateral ovaries. DATA REPOSITORY:
== END 2022-07-19 02:18 ==
LOC: DI 01:58
PROVIDERS: PCP Nurse Practitioner Family; Visit Provider Student in an Organized Health Care Education/Training Program
DX: R10.30 Lower abdominal pain, unspecified (principal); D25.9 Leiomyoma of uterus, unspecified
CPT/HCPCS: 76830; 76856

== ENCOUNTER 2022-12-28 18:16 | Emergency (ER) | payer MEDICAID, SELFPAY ==
--- NOTE | 2022-12-28 18:15 | RT.EKG_ITS ---
APPROVED REPORT Exam: Resting ECG Reason for Exam: Patient Location: E HR:59 bpm ECG Measurements Heart Rate 59 AXIS VA 175 P 54 QRSd 106 QRS 41 QT 434 T 39 QTc 430 Conclusion Sinus bradycardia...rate< 60 Nonspecific T abnormalities, anterior leads...T <-0.10mV, V2-V4 Non specific T wave abnl not as pronounced as 10/19/21
[2022-12-28 18:23] VITALS: BP 165/116; PULSE 68; RESP 20; TEMP 36.8; O2SAT 96
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
[2022-12-28 19:02] LABS: Abs Immature Grans 0.03 10^3/uL (0.0-0.06); Absolute Basophil Count 0.06 10^3/uL (0.0-0.2); Absolute Eosinophil Count 0.48 10^3/uL (0.0-0.7); Absolute Lymphocyte Count 3.06 10^3/uL (1.2-3.4); Absolute Monocyte Count 0.89 10^3/uL (0.1-0.8); Absolute Neutrophil Count 5.18 10^3/uL (1.2-6.7); Basophils % 0.6; Eosinophils % 4.9; Immature Grans % 0.3; Lymphocytes % 31.5; MCH 29.7 pg (27.0-33.0); MCV 85 fL (80-95); MPV 8.7 fL (8.0-11.0); Monocytes % 9.2; Neutrophils % 53.5; Platelet Count 325 10^3/uL (130-400); RBC 4.71 10^6/uL (3.93-5.22); RDW 12.1 % (11.7-14.6); RDW-SD 37.6 fL
[2022-12-28] MEDS: LORazepam 1 MG TAB PO (19:18)
[2022-12-28 19:25] LABS: ALT 36 U/L (14-59); AST 21 U/L (15-37); Albumin 4.1 g/dL (3.4-5.0); Alkaline Phosphatase 43 U/L (46-116); Anion Gap 9.3 mmol/L (3-11); BUN 19 mg/dL (7-18); Bilirubin, Total 0.3 mg/dL (0.2-1.0); CO2 22.7 mmol/L (21.0-32.0); CREATININE 0.7 mg/dL (0.55-1.02); Calcium 9.4 mg/dL (8.5-10.1); Chloride 103 mmol/L (98-107); Estimated GFR 112.75 (mL/min/1.73m2); Glucose 114 mg/dL (74-106); Potassium 3.8 mmol/L (3.5-5.1); Sodium 135 mmol/L (136-145); TSH (W/Ref FT4) 1.81 uIU/mL (0.36-3.74); Total Protein 7.3 g/dL (6.4-8.2)
[2022-12-28 19:26] LABS: ETHANOL BLOOD < 3.0 mg/dL (<10)
[2022-12-28 19:28] LABS: Salicylate < 2.8 mg/dL (<2.8)
[2022-12-28 19:30] LABS: Acetaminophen < 2 ug/mL (10-30)
[2022-12-28 20:51] LABS: Bilirubin Negative (Negative); Blood Trace-intact (Negative); Clarity Clear (Clear); Glucose Negative (Negative); Ketones Negative (Negative); Leukocyte Esterase Negative (Negative); Nitrite Negative (Negative); Specific Gravity 1.015 (1.005-1.025); Urobilinogen 0.2 mg/dL (Up to 0.2)
[2022-12-28 20:57] LABS: Bacteria Negative HPF (Negative); Crystals Negative HPF (Negative); Epithelial Cells Many HPF (Negative); Mucus Negative (Negative); WBC 0-2 HPF (0-5)
[2022-12-28 20:58] LABS: C & S Indicated? No/Sq. Contamination; Casts Negative LPF (Negative)
[2022-12-28 21:05] LABS: *AMPHETAMINES SCREEN URINE Negative (Negative); *BARBITURATES SCREEN URINE Negative (Negative); *BENZODIAZEPINES SCREEN URINE Positive (Negative); Cannabinoids THC Positive (Negative); Cocaine Screen,Urine Negative (Negative); METHADONE URINE SCREEN Negative (Negative); OPIATES URINE SCREEN Negative (Negative)
[2022-12-28 21:06] LABS: Tricyclic Antidepressants Negative (Negative)
== END 2022-12-28 21:51 | disposition home or self-care (01) ==
PROVIDERS: Emergency Provider Emergency Medicine; PCP Nurse Practitioner Family
DX: F41.9 Anxiety disorder, unspecified (principal); I10 Essential (primary) hypertension; E78.5 Hyperlipidemia, unspecified; Z79.82 Long term (current) use of aspirin; Z79.899 Other long term (current) drug therapy
CPT/HCPCS: 80053; 80307; 81025; 93005; 99283; 80320; 80329; 81003; 81015; 84443; 85025; 93010

== ENCOUNTER 2023-02-03 08:39 | Emergency (ER) | payer MEDICAID, SELFPAY ==
[2023-02-03 08:42] VITALS: BP 128/88; PULSE 70; RESP 18; TEMP 36.5; O2SAT 100
[2023-02-03] MEDS: Bupivacaine 0.5% Pres-Free 30 ML VIAL (09:16)
[2023-02-03] MEDS: Methocarbamol 750 MG TAB PO (09:16)
[2023-02-03] MEDS: Ketorolac 15 MG/ML VIAL IM (09:16)
--- NOTE | 2023-02-03 09:19 | W.ED.GENAD ---
Discharge Plan Disposition Patient Disposition: Home Discharge Details Clinical Impression: Pain of right scapula, Carpal tunnel syndrome on both sides Primary Care Provider: Lilian Julien ED Provider: Rayo Rodriguez Home Meds and New Rx's Prescriptions: Continued cbd oil 0.75 ml PO BID Patient Comments: 3/4 dropper morning and night (DME) Aerochamber MV spacer See Dose Instructions .ROUTE .MEDSUPPLY Qty: 1 Rx Instructions: As directed sertraline 100 mg tablet 100 mg PO DAILY Patient Comments: TAKE ONE TABLET BY MOUTH EVERY DAY propranolol 10 mg tablet 10 mg PO PRN Patient Comments: TAKE ONE TABLET BY MOUTH TWICE A DAY NEEDED FOR PANIC ATTACK, USE SPARINGLY cholecalciferol (vitamin D3) 50 mcg (2,000 unit) capsule Patient Comments: 1 capsule by mouth once a day After 8 weeks of D50,000U, take 1 cap of 2,000U daily aripiprazole 2 mg Tablet 2 mg PO DAILY clobazam 10 mg tablet 20 tab PO HS Patient Comments: 10mg am, 20mg at night albuterol sulfate 90 mcg/actuation aerosol powdr breath activated 1 inh IH Q4H PRN (Reason: shortness of breath or wheezing) 14 Days Qty: 1 0RF cholecalciferol (vitamin D3) [Vitamin D3] 25 mcg (1,000 unit) Capsule 1,000 unit PO DAILY aspirin 81 mg tablet,chewable 81 mg PO DAILY Patient Comments: Take 1 tablet by mouth once a day gabapentin 300 mg capsule 300 mg PO BID Patient Comments: TAKE ONE CAPSULE BY MOUTH TWICE A DAY lisinopril 10 mg tablet 10 mg PO BID Patient Comments: TAKE ONE TABLET BY MOUTH EVERY DAY magnesium oxide 250 mg magnesium tablet 250 mg PO BID Patient Comments: TAKE ONE TABLET BY MOUTH TWICE A DAY naproxen 500 mg tablet 500 mg PO DAILY Patient Comments: TAKE ONE TABLET BY MOUTH TWICE A DAY NEEDED riboflavin (vitamin B2) [Vitamin B-2] 100 mg tablet 100 mg PO DAILY Patient Comments: TAKE TWO TABLETS BY MOUTH TWICE A DAY Discharge Instructions Instructions: Shoulder Pain (ED) Additional Instructions: Due to the medication that you received in the emergency department do not take any further NSAIDs until at least 6:00 this evening. You may take acetaminophen as directed on packaging. Otherwise continue to take your medications as prescribed and follow-up with your primary care provider if not improving over the next week to 2 weeks. You may continue to perform work duties as tolerated by pain. If you have any new or significant worsening of symptoms or change in your condition that is rapid feel free to return to the emergency department for reassessment. Stand Alone Forms: Work Release Referrals: Lilian Julien [Primary Care Provider] - Discharge Data Discharge Date/Time-TO BE ENTERED AT DEPARTURE: 02/03/23 10:10 Medical Decision Making Patient presenting to the emergency department for chief complaint of right shoulder discomfort with radiation of pain down the arm. She states that she has suffered with this along with carpal tunnel syndrome bilaterally for the last 2 years and it seems to flared up over the last couple days. Patient works at the [employer] and states that the increase in work has definitely exacerbated symptoms. She did attempt massage of muscular spasm last night but states that this may have made symptoms worse. Patient has past medical history of seizure disorder, fibromyalgia, carpal tunnel syndrome with surgical intervention, open heart surgery, knee surgery. Physical exam shows palpable muscular spasm just medial to mid scapula with point tenderness, patient does have full range of motion of right upper extremity but patient reports pain with any movement, chronic tingling of lower extremity but pulses movement and sensation is intact. Exam is otherwise noncontributory. I do not feel that there is any emergent worsening of chronic condition, cervical or spinal stenosis causing symptoms, and no report of trauma. Due to this I feel that no advanced imaging or labs is needed at this time but will treat patient with IM Toradol, methocarbamol, and local anesthesia injection. Did receive verbal consent from patient after discussion of risk and benefit of trigger point injection. Sterile prep of pain site was performed and 4 mL of lidocaine 2% and bupivacaine 0.5% 50-50 mix was injected into the area of most discomfort. Patient reassessed approximately 30 minutes after injection and receiving other medications and states marked improvement of discomfort. She states now mainly other symptoms are chronic in nature with acute pain starting to reduce. I feel this is appropriate for continued outpatient management and follow-up with primary care provider at this stage. After discussion of diagnosis and plan of care patient has no further needs, questions, or concerns and states clear understanding to return to the emergency department for any worsening symptoms. This documentation was generated using [employer] system, please disregard any oddities of phrase or misspellings. HPI General Mode of arrival: ambulatory. Date/Time Provider Initiated Documentation: 02/03/23 09:03. Limitations to Documentation: no limitations. Information obtained by: patient and RN notes reviewed. History of Present Illness 37 year old F presents to the emergency department with the chief complaint of Right upper extremity discomfort, shoulder pain, described as moderate, with intensity rated at 8. Quality is described as sharp, and is localized to the back. Patient extremity. Patient started experiencing this year(s) (2+) and it has been intermittent. No relieving factors improve symptom(s), Movement worsens symptoms . Patient notes no other symptoms.. Patient did receive the following treatments prior to arrival, NSAID Related Data Home Medications Medication Instructions Recorded Confirmed cbd oil 0.75 ml PO BID 05/29/18 02/03/23 inhalational spacing device #1 ea 05/29/18 08/19/19 (Aerochamber MV spacer) aripiprazole 2 mg tablet 2 mg PO DAILY 09/01/18 02/03/23 clobazam 10 mg tablet 20 tab PO HS 09/13/21 02/03/23 cholecalciferol (vitamin D3) 25 1,000 unit PO DAILY 10/09/21 02/03/23 mcg (1,000 unit) capsule (Vitamin D3) albuterol sulfate 90 mcg/actuation 1 inh inhalation Q4H PRN shortness 10/19/21 02/03/23 breath activated powder inhaler of breath or wheezing 2 weeks #1 ea aspirin 81 mg chewable tablet 81 mg PO DAILY 12/28/22 02/03/23 gabapentin 300 mg capsule 300 mg PO BID 12/28/22 02/03/23 lisinopril 10 mg tablet 10 mg PO BID 12/28/22 02/03/23 magnesium oxide 250 mg PO BID 12/28/22 02/03/23 naproxen 500 mg tablet 500 mg PO DAILY 12/28/22 02/03/23 riboflavin (vitamin B2) 100 mg 100 mg PO DAILY 12/28/22 02/03/23 tablet (Vitamin B-2) cholecalciferol (vitamin D3) 50 02/03/23 mcg (2,000 unit) capsule propranolol 10 mg tablet 10 mg PO PRN 02/03/23 sertraline 100 mg tablet 100 mg PO DAILY 02/03/23 Previous Rx's Medication Instructions Recorded albuterol sulfate 90 mcg/actuation 1 inh inhalation Q4H PRN shortness 10/19/21 breath activated powder inhaler of breath or wheezing 2 weeks #1 ea Allergies Allergy/AdvReac Type Severity Reaction Status Date / Time divalproex sodium AdvReac Mild Other (See Unverified 12/28/22 18:32 [From Depakote] Comment) General Stated Complaint: Nk/Back Pain GM: 2 Review of Systems Constitutional Constitutional: Denies chills and Denies fever(s) Cardiovascular Cardiovascular: Denies chest pain and Denies dyspnea Respiratory Respiratory: Denies dyspnea Musculoskeletal Musculoskeletal: Reports as per HPI, Denies muscle cramps, Denies muscle weakness and Reports tingling Integumentary/Breasts Skin/Breast: Denies erythema and Denies rash Neurologic Neurologic: Reports tingling PFSH All Active Problems (Updated 02/03/23 @ 10:03 by Rayo Rodriguez NP) Carpal tunnel syndrome on both sides (Acute) Pain of right scapula (Acute) Encounter for IUD removal (Acute) Hx of tubal ligation (Chronic) Knee pain, bilateral (Chronic) Generalized tonic-clonic seizure (Chronic) Onset 28 years old. Last seizure 2018. 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 Contraception management (Acute) 05/[address] Paperwork for tubal sterilization initiated. Sciatica (Acute) Hypertension (Chronic) Depression (Chronic) Migraine headache (Chronic) Hyperlipidemia (Chronic) Asthma (Chronic) Fibromyalgia (Chronic) Treated with marijuana. Patient does not have a medical marijuana card Medical History Tremor of both hands secondary to Depakote, per pt. Grand mal seizure disorder Last seizure August 2018. History of pre-eclampsia Surgical History History of carpal tunnel surgery of right wrist History of open heart surgery PDA ans ASD repair when younger. Has routine cardiology follow-up Dr. Rai in [place]. Pt. states there is still a slight hole but is monitored H/O knee surgery Social History Smoking/Tobacco Use Status: Never Smoking risk assessment performed?: Yes Alcohol Intake: never Drug use: Daily Substance use type: marijuana Details: Marijuana daily. CBD oil as needed. Household members: spouse, children and other Details: H-Nolan, D-Magaly, D-Katia Housing: house Number of Children: 2 Do you need help understanding health information?: Rarely current occupation: Works at [employer] Sexually active: Yes Do you feel safe at home: No Do you feel safe in your relationship?: Yes Additional Social history: Endorsing not feeling safe at home with self. 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 Katia without issues both children attend [employer] History History 4 Para 2 Hx # Term Pregnancies Multiple births Hx # Pregnancies Ectopic pregnancies AB induced 2 Hx Number of Living Children AB spontaneous Exam Const General: cooperative, no acute distress and not ill appearing Orientation: alert, awake and oriented x3 HENMT Mouth: moist mucous membranes Resp Effort & Inspection: normal respiratory effort, able to speak in complete sentences and no respiratory distress Auscultation: clear to auscultation bilaterally Cardio Rate: regular rate Rhythm: regular rhythm Heart Sounds: S1 normal and S2 normal Pulses: normal peripheral pulses Back/Spine/Pelvis Cervical Spine: No cervical spinal tenderness Thoracic/Lumbar Spine: No mass, paraspinal tenderness (Medial to scapula) and No thoracic spinal tenderness Skin General skin exam: no rashes or lesions noted and no erythema Neuro General: patient alert, patient awake, patient oriented x3, moves all extremities and no focal motor deficits Sensory Exam: no sensory deficits noted Extrem Right upper extremity: shoulder/upper arm Details: normal to inspection, tenderness Location: of the scapula and abnormal ROM (Full range of motion but painful); no crepitus, no deformity and no unusual warmth Course Vital Signs Vital signs: Vital Signs Temperature 36.5 C 02/03/23 08:42 Pulse 70 02/03/23 08:42 Respiratory Rate 18 02/03/23 08:42 Blood Pressure 128/88 02/03/23 08:42 Pulse Oximetry 100 02/03/23 08:42 Temperature 36.5 C 02/03/23 08:42 Temperature Source Skin 02/03/23 08:42 Pulse 70 02/03/23 08:42 Respiratory Rate 18 02/03/23 08:42 Respiratory Effort Normal 02/03/23 08:48 Blood Pressure 128/88 02/03/23 08:42 Blood Pressure Position Sitting 02/03/23 08:42 Pulse Oximetry 100 02/03/23 08:42 Oxygen Delivery Method Room Air 02/03/23 08:42 Oxygen Flow Rate 0 02/03/23 08:42 Pain Level 8 02/03/23 08:42
== END 2023-02-03 10:10 | disposition home or self-care (01) ==
PROVIDERS: Emergency Provider Nurse Practitioner Family; PCP Nurse Practitioner Family
DX: G56.03 Carpal tunnel syndrome, bilateral upper limbs (principal); M25.511 Pain in right shoulder
CPT/HCPCS: 96372; 99284; J1885

== ENCOUNTER 2023-04-24 14:35 | Outpatient (REF) | payer MEDICAID, SELFPAY ==
--- NOTE | 2023-04-24 13:30 | PAPFT_PTH ---
PATIENT: Bessie Chacon LOC: [facility] U#:[id number] AGE/SX: 37/F ROOM: RE04/24/[address]: LILIAN JULIEN : 1985 BED: DIS: 04/24/2023 SPEC #: [id number] RECD: 04/25/23 12:48 STATUS: TERI REQ #: [id number] FROILAN: 04/24/23 13:[address]: Lilian Julien DEPT: [facility] Cytology RECD BY: Maria Del Carmen Souza Tissues: 1 - CX/ENDOCX FOR PAP SMEARS Procedures: PAP THIN PREP/UVM Screening HPV DNA PROBE Comments: [id number] (HPV 16 & 18/45)
== END 2023-04-24 14:36 | disposition home or self-care (01) ==
LOC: NCHCN 14:35
PROVIDERS: PCP Nurse Practitioner Family; Referring Provider Nurse Practitioner Family; Visit Provider Nurse Practitioner Family
DX: Z00.00 Encounter for general adult medical examination without abnormal findings (principal); Z01.419 Encounter for gynecological examination (general) (routine) without abnormal findings; Z12.4 Encounter for screening for malignant neoplasm of cervix
CPT/HCPCS: 88142; 87624

== ENCOUNTER 2023-09-15 17:49 | Emergency (ER) | payer MEDICAID, SELFPAY ==
[2023-09-15 17:52] VITALS: BP 139/97; PULSE 90; RESP 18; TEMP 36.8; O2SAT 98
[2023-09-15] MEDS: Acetaminophen 325 MG TAB (18:16)
--- NOTE | 2023-09-15 18:30 | DI.CT_ITS ---
Exam(s) CT CERVICAL SPINE WO EXAM: CT CERVICAL SPINE WO CLINICAL HISTORY: Severe muscle spasms after C-spine fusion. TECHNIQUE: Imaging Protocol: Axial computed tomography images with coronal and sagittal reformatted images were created and reviewed COMPARISON: CT CT HEAD CERVICAL SPINE WO from 10/21/2020 FINDINGS: CERVICAL SPINE: There is multilevel laminectomies and posterior fusion hardware extending from C 5 through T1, suppor umm by bilateral screws at C5, C6, and T1 levels. There are no screws at C7 level. Hardware appears intact. There is development incomplete fusion of the anterior arch of C1 which was also evident on CT scan A ugust 2020. 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 There is no evidence of acute fracture. No significant prevertebral soft tissue swelling. Very mild anterolisthesis of C4 upon C5 noted. There is some facet arthropathy at C 4-5 level on the right side. Left facet joint at this level xavier ears unremarkable. Facet arthropathy evident but no significant facet joint malalignment. No significant osseous lesions evident. IMPRESSION: Multilevel C5-T1 level fusion. No fractures evident. RADIATION DOSE DELIVERED: 591.13mGy.cm Total DLP DATA REPOSITORY: All CT scans at this facility are submitted to the National Radiology Data Registry (NRDR) Dose Index Registry (DIR) with the [employer] ([employer]). RADIATION OPTIMIZATION: All CT scans at this facility use at least one of these dose optimization te chniques: automated exposure control; mA and/or kV adjustment per patient size (includes targeted exa ms where dose is matched to clinical indication); or iterative reconstruction.
--- NOTE | 2023-09-15 18:33 | W.ED.GENAD ---
Discharge Plan Disposition Patient Disposition: Home Discharge Details Clinical Impression: Muscle spasm Primary Care Provider: Lilian Julien ED Provider: Sana Hoskins Home Meds and New Rx's Prescriptions: Continued cbd oil 0.75 ml PO BID Patient Comments: 3/4 dropper morning and night (DME) Aerochamber MV spacer See Dose Instructions .ROUTE .MEDSUPPLY Qty: 1 Rx Instructions: As directed sertraline 100 mg tablet 100 mg PO DAILY Patient Comments: TAKE ONE TABLET BY MOUTH EVERY DAY propranolol 10 mg tablet 10 mg PO PRN Patient Comments: TAKE ONE TABLET BY MOUTH TWICE A DAY NEEDED FOR PANIC ATTACK, USE SPARINGLY cholecalciferol (vitamin D3) 50 mcg (2,000 unit) capsule Patient Comments: 1 capsule by mouth once a day After 8 weeks of D50,000U, take 1 cap of 2,000U daily aripiprazole 2 mg Tablet 2 mg PO DAILY clobazam 10 mg tablet 10 mg PO DAILY Patient Comments: 4/24-10mg am, 20mg at night albuterol sulfate 90 mcg/actuation aerosol powdr breath activated 1 inh IH Q4H PRN (Reason: shortness of breath or wheezing) 14 Days Qty: 1 0RF cholecalciferol (vitamin D3) [Vitamin D3] 25 mcg (1,000 unit) Capsule 1,000 unit PO DAILY aspirin 81 mg tablet,chewable 81 mg PO DAILY Patient Comments: Take 1 tablet by mouth once a day gabapentin 300 mg capsule 300 mg PO BID Patient Comments: TAKE ONE CAPSULE BY MOUTH TWICE A DAY lisinopril 10 mg tablet 10 mg PO BID Patient Comments: TAKE ONE TABLET BY MOUTH EVERY DAY magnesium oxide 250 mg magnesium tablet 250 mg PO BID Patient Comments: TAKE ONE TABLET BY MOUTH TWICE A DAY naproxen 500 mg tablet 500 mg PO DAILY Patient Comments: TAKE ONE TABLET BY MOUTH TWICE A DAY NEEDED riboflavin (vitamin B2) [Vitamin B-2] 100 mg tablet 100 mg PO DAILY Patient Comments: TAKE TWO TABLETS BY MOUTH TWICE A DAY Discharge Instructions Instructions: Muscle Spasm ED Additional Instructions: Please call your [facility] team first thing in the morning to discuss today's emergency department visit and arrange follow-up visit. You may use the Valium provided on a limited basis for severe muscle spasms only. Please note that this may interact with your other benzos, so be sure to look out for signs of excessive drowsiness and avoid driving/climbing ladders/other potentially dangerous activities while you are taking this medication. I encourage you to continue taking Tylenol, applying heat/ice, and lidocaine patches (not to be used with heat or ice). Gentle stretching and gentle massage may also be helpful. Return to emergency care if you develop new arm weakness/numbness, change in bowel or bladder function, fevers associated with back pain, uncontrollable vomiting, or if you are very worried and need to be rechecked again immediately HPI General Date/Time Provider Initiated Documentation: 09/15/23 17:51. HPI Narrative: Bessie is a 37-year-old female presents emergency department for evaluation of muscle spasms x 3 days. She reports that she believes this was triggered by helping to put together her daughter's bed, which involves some lifting. No falls or other trauma. She denies associated fever/chills, change in bowel or bladder function, leg weakness, new arm weakness. She does report that she has some increased tingling from baseline in her right hand and occasional tingling in her right foot has resolved with straightening her foot. She does admit to a right-sided occipital headache associated with muscle spasms. Otherwise has been in good health. She is not able to take NSAIDs due to recent spinal fusion. She reports this feels like muscle spasms she has had since her 20s with the same symptoms, but she is worried because it is not responding as well to her usual treatments. Physical exam remarkable for significant tenderness to palpation of right paraspinal muscles and trapezius/scapula. 5 out of 5 muscle strength bilaterally to upper extremities. Extremities are warm. Sensation grossly intact upper and lower extremities. History of presentation most consistent with muscle spasm, though as patient is couple months postop, will obtain CT scan to rule out movement of hardware or other bony abnormality. No red flags concerning for infectious etiology or spinal cord compression. While in the emergency department Janice received p.o. diazepam with good improvement in symptoms. A lidocaine patch was also applied. CT performed, no acute abnormality noted. Presentation most consistent with muscle spasm. As she responded well to diazepam, will provide limited number for home use and have her follow-up with neurosurgery in the morning. Reviewed red flags indicate need for return to emergency care. Educated on symptomatic management. She is agreeable with plan of care. Related Data Home Medications ?Medication ?Instructions ?Recorded ?Confirmed cbd oil 0.75 ml PO BID 05/29/18 06/07/23 inhalational spacing device #1 ea 05/29/18 08/19/19 (Aerochamber MV spacer) aripiprazole 2 mg tablet 2 mg PO DAILY 09/01/18 06/07/23 cholecalciferol (vitamin D3) 25 1,000 unit PO DAILY 10/09/21 06/07/23 mcg (1,000 unit) capsule (Vitamin D3) albuterol sulfate 90 mcg/actuation 1 inh inhalation Q4H PRN shortness 10/19/21 06/07/23 breath activated powder inhaler of breath or wheezing 2 weeks #1 ea aspirin 81 mg chewable tablet 81 mg PO DAILY 12/28/22 02/03/23 gabapentin 300 mg capsule 300 mg PO BID 12/28/22 06/07/23 lisinopril 10 mg tablet 10 mg PO BID 12/28/22 06/07/23 magnesium oxide 250 mg PO BID 12/28/22 06/07/23 naproxen 500 mg tablet 500 mg PO DAILY 12/28/22 06/07/23 riboflavin (vitamin B2) 100 mg 100 mg PO DAILY 12/28/22 06/07/23 tablet (Vitamin B-2) cholecalciferol (vitamin D3) 50 02/03/23 06/07/23 mcg (2,000 unit) capsule propranolol 10 mg tablet 10 mg PO PRN 02/03/23 06/07/23 sertraline 100 mg tablet 100 mg PO DAILY 02/03/23 06/07/23 clobazam 10 mg tablet 10 mg PO DAILY 06/07/23 06/07/23 Previous Rx's ?Medication ?Instructions ?Recorded albuterol sulfate 90 mcg/actuation 1 inh inhalation Q4H PRN shortness 10/19/21 breath activated powder inhaler of breath or wheezing 2 weeks #1 ea Allergies Allergy/AdvReac Type Severity Reaction Status Date / Time divalproex sodium (From AdvReac Mild Other (See Unverified 06/07/23 09:35 Depakote) Comment) General Stated Complaint: Nk/Back Pain GM: 3 Review of Systems Narrative: see HPI Exam Const General: cooperative and in distress (uncomfortable) Neck Neck: normal visual inspection and trachea midline Resp Effort & Inspection: normal respiratory effort and able to speak in complete sentences Auscultation: clear to auscultation bilaterally Cardio Rate: regular rate Rhythm: regular rhythm Back/Spine/Pelvis Cervical Spine: cervical muscular tenderness (R sided), No cervical spinal tenderness and No step off deformity Thoracic/Lumbar Spine: thoracic and lumbar spine normal to inspection Skin General skin exam: no rashes or lesions noted Neuro General: gait normal, tone normal, moves all extremities and no focal motor deficits Sensory Exam: no sensory deficits noted Course Vital Signs Vital signs: Vital Signs Temperature 36.8 C 09/15/23 17:52 Pulse 90 09/15/23 17:52 Respiratory Rate 18 09/15/23 17:52 Blood Pressure 139/97 H 09/15/23 17:52 Pulse Oximetry 98 09/15/23 17:52 Temperature 36.8 C 09/15/23 17:52 Temperature Source Tympanic 09/15/23 17:52 Pulse 90 09/15/23 17:52 Respiratory Rate 18 09/15/23 17:52 Blood Pressure 139/97 H 09/15/23 17:52 Blood Pressure Position Sitting 09/15/23 17:52 Pulse Oximetry 98 09/15/23 17:52 Oxygen Delivery Method Room Air 09/15/23 17:52 Oxygen Flow Rate 0 09/15/23 17:52 Pain Level 10 09/15/23 17:52 Comment Took gabapentin this morning, 10mg flexeril 2 hours ago; no APAP today (unable to afford more APAP) 09/15/23 17:52 Medical Decision Making Imaging Data Radiologic Study: Radiologist's impression: PROCEDURE INFORMATION: Exam: CT Cervical Spine Without Contrast Exam date and time: 09/15/2023 7:05 PM Age: 37 years old Clinical indication: Pain; Cervicalgia; Prior surgery; Surgery date: 1-6 months; Patient HX: Severe muscle spasm after cspine fusion TECHNIQUE: Imaging protocol: Computed tomography of the cervical spine without contrast. COMPARISON: CT HEAD CERVICAL SPINE WO 10/21/2020 10:19 PM FINDINGS: Bones: Moderate disc bulge with disc space narrowing and uncovertebral spurring of the C5-C6 and C6-C7 disc levels. More mild degenerative disc changes at C3-C4. Degenerative changes produce moderate narrowing right C5, right C6 bilateral C7 neural foramina. Moderate multilevel bilateral facet arthropathy with slight grade 1 anterolisthesis of C3. Orthopedic hardware produces posterior fusion C5, C6 and T1. No acute fracture. 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 Lungs: Lung apices are normal. Soft tissues: Unremarkable. IMPRESSION: No acute abnormality. Chronic findings as noted. Quality:SDOH Health Related Social Needs: No Data to Display PFSH All Active Problems (Updated 09/15/23 @ 20:40 by Sana Horton) Muscle spasm (Acute) Knee pain, bilateral (Chronic) Generalized tonic-clonic seizure (Chronic) Onset 28 years old. Last seizure 2018. Neurologist at [facility] [place] 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 Sciatica (Acute) Hypertension (Chronic) Depression (Chronic) Migraine headache (Chronic) Hyperlipidemia (Chronic) Asthma (Chronic) Fibromyalgia (Chronic) Treated with marijuana. Patient does not have a medical marijuana card Medical History (Updated 09/15/23 @ 20:40 by Sana Horton) Abnormal Pap smear of cervix Apr 2023: ASCUS/HPV+ ->colp: benign appearing Oct 2016: Normal/neg Tremor of both hands secondary to Depakote, per pt. Grand mal seizure disorder Last seizure August 2018. History of pre-eclampsia Surgical History (Updated 06/07/23 @ 10:12 by Justine Noonan MD) Hx of tubal ligation August 2019 Laparoscopic b/l salpingectomy History of carpal tunnel surgery of right wrist History of open heart surgery PDA ans ASD repair when younger. Has routine cardiology follow-up Dr. Rai in [place]. Pt. states there is still a slight hole but is monitored H/O knee surgery Social History (Updated 06/07/23 @ 10:13 by Justine Noonan MD) Smoking/Tobacco Use Status: Never Smoking risk assessment performed?: Yes Alcohol Intake: never Drug use: Daily Substance use type: marijuana Details: Marijuana daily. CBD oil as needed. 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 ARLETTE Miranda 12/28/22 Daughter Magaly special-needs secondary to difficulty speaking (attending [employer]). Katia without issues, attends [employer] History History 4 Para 2 Hx # Term Pregnancies Multiple births Hx # Pregnancies Ectopic pregnancies AB induced 2 Hx Number of Living Children AB spontaneous Past Pregnancies Del. Date GA/Weeks # Preg Succ Route Wgt Sex Labor Lgth Anesthesia Location Prov Complic Unknown 36 Yes vaginal 1814.369 g Female [facility] Unknown 38 Yes vaginal 2721.554 g Female [place] Delivery Date: Last Updated by: ARLETTE Chopra- pt wrote born [birth year] Delivery Date: Last Updated by: ARLETTE Chopra- Pt wrote born [birth year]
[2023-09-15] MEDS: diazePAM 2 MG TAB PO ×2 (18:47→20:55)
--- NOTE | 2023-09-15 20:01 | DI.VRAD_ITS ---
PROCEDURE INFORMATION: Exam: CT Cervical Spine Without Contrast Exam date and time: 09/15/2023 7:05 PM Age: 37 years old Clinical indication: Pain; Cervicalgia; Prior surgery; Surgery date: 1-6 months; Patient HX: Severe muscle spasm after cspine fusion TECHNIQUE: Imaging protocol: Computed tomography of the cervical spine without contrast. COMPARISON: CT HEAD CERVICAL SPINE WO 10/21/2020 10:19 PM FINDINGS: Bones: Moderate disc bulge with disc space narrowing and uncovertebral spurring of the C5-C6 and C6-C7 disc levels. More mild degenerative disc changes at C3-C4. Degenerative changes produce moderate narrowing right C5, right C6 bilateral C7 neural foramina. Moderate multilevel bilateral facet arthropathy with slight grade 1 anterolisthesis of C3. Orthopedic hardware produces posterior fusion C5, C6 and T1. No acute fracture. 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 Lungs: Lung apices are normal. Soft tissues: Unremarkable. IMPRESSION: No acute abnormality. Chronic findings as noted. Dictated and Authenticated by: Blake Jain MD. Ordering:MELANIE Hood MD
[2023-09-15] MEDS: Lidocaine 5% Patch 1 PATCH TP (20:55)
[2023-09-15 20:56] VITALS: BP 139/97; PULSE 90; RESP 18; TEMP 36.8; O2SAT 98
== END 2023-09-15 20:57 | disposition home or self-care (01) ==
PROVIDERS: Emergency Provider Nurse Practitioner Family; PCP Nurse Practitioner Family
DX: M62.830 Muscle spasm of back (principal); Z79.82 Long term (current) use of aspirin; Z98.1 Arthrodesis status
CPT/HCPCS: 81025; 99284; 72125; 99283

== ENCOUNTER 2023-09-20 11:52 | Emergency (ER) | payer MEDICAID, SELFPAY ==
[2023-09-20 11:57] VITALS: BP 118/66; PULSE 70; RESP 18; TEMP 36.2; O2SAT 98
--- NOTE | 2023-09-20 12:28 | ED.GENADUL_ITS ---
Discharge Plan Disposition Patient Disposition: Home Condition: Stable Discharge Details Clinical Impression: Right ankle sprain Primary Care Provider: Lilian Julien ED Provider: Parisa Wilder Home Meds and New Rx's Prescriptions: Continued cbd oil 0.75 ml PO BID Patient Comments: 3/4 dropper morning and night sertraline 100 mg tablet 200 mg PO DAILY Patient Comments: TAKE ONE TABLET BY MOUTH EVERY DAY propranolol 10 mg tablet 10 mg PO PRN Patient Comments: TAKE ONE TABLET BY MOUTH TWICE A DAY NEEDED FOR PANIC ATTACK, USE SPARINGLY cholecalciferol (vitamin D3) 50 mcg (2,000 unit) capsule 2,000 unit PO DAILY Patient Comments: 1 capsule by mouth once a day After 8 weeks of D50,000U, take 1 cap of 2,000U daily aripiprazole 2 mg Tablet 2 mg PO DAILY clobazam 10 mg tablet 10 mg PO DAILY Patient Comments: 06/07/23-10mg am, 20mg at night albuterol sulfate 90 mcg/actuation aerosol powdr breath activated 1 inh IH Q4H PRN (Reason: shortness of breath or wheezing) 14 Days Qty: 1 0RF cholecalciferol (vitamin D3) [Vitamin D3] 25 mcg (1,000 unit) Capsule 1,000 unit PO DAILY aspirin 81 mg tablet,chewable 81 mg PO DAILY Patient Comments: Take 1 tablet by mouth once a day gabapentin 300 mg capsule 300 mg PO BID Patient Comments: TAKE ONE CAPSULE BY MOUTH TWICE A DAY lisinopril 10 mg tablet 10 mg PO BID Patient Comments: TAKE ONE TABLET BY MOUTH EVERY DAY magnesium oxide 250 mg magnesium tablet 250 mg PO BID Patient Comments: TAKE ONE TABLET BY MOUTH TWICE A DAY naproxen 500 mg tablet 500 mg PO DAILY Patient Comments: TAKE ONE TABLET BY MOUTH TWICE A DAY NEEDED riboflavin (vitamin B2) [Vitamin B-2] 100 mg tablet 100 mg PO DAILY Patient Comments: TAKE TWO TABLETS BY MOUTH TWICE A DAY Discharge Instructions Instructions: Walking Boot, Ankle Sprain ED Additional Instructions: No evidence of fracture on the images, Rest, Ice compression, elevation, use the walking boot as needed for comfort. Take Tylenol or ibuprofen as needed every 4-6 hours for pain and swelling. May also take naproxen or similar. Follow up with PCP in 3-5 days if needed. Referrals: Lilian Julien [Primary Care Provider] - Return if symptoms worsen Abdi Myrick MD [ [facility] STAFF PHYSICIAN] - Return if symptoms worsen Discharge Data Discharge Date/Time-TO BE ENTERED AT DEPARTURE: 09/20/23 13:40 HPI General Mode of arrival: ambulatory . Date/Time Provider Initiated Documentation: 09/20/23 12:02 . Limitations to Documentation: no limitations . Information obtained by: patient, RN notes reviewed and old records reviewed . HPI Narrative: 37-year-old female presents to the ER with a chief complaint of right ankle pain. She was walking downstairs 4 days ago and missed 2 steps. She reports an inversion type injury. She has been walking with pain. She has some lateral malleolus tenderness. No obvious deformity. Past medical history includes grand mal seizure disorder, preeclampsia, surgical history includes tubal ligation open heart surgery knee surgery. Ankle x-ray and foot x-ray ordered. Related Data Home Medications ?Medication ?Instructions ?Recorded ?Confirmed cbd oil 0.75 ml PO BID 05/29/18 09/20/23 aripiprazole 2 mg tablet 2 mg PO DAILY 09/01/18 09/20/23 cholecalciferol (vitamin D3) 25 1,000 unit PO DAILY 10/09/21 09/20/23 mcg (1,000 unit) capsule (Vitamin D3) albuterol sulfate 90 mcg/actuation 1 inh inhalation Q4H PRN shortness 10/19/21 09/20/23 breath activated powder inhaler of breath or wheezing 2 weeks #1 ea aspirin 81 mg chewable tablet 81 mg PO DAILY 12/28/22 09/20/23 gabapentin 300 mg capsule 300 mg PO BID 12/28/22 09/20/23 lisinopril 10 mg tablet 10 mg PO BID 12/28/22 09/20/23 magnesium oxide 250 mg PO BID 12/28/22 09/20/23 naproxen 500 mg tablet 500 mg PO DAILY 12/28/22 09/20/23 riboflavin (vitamin B2) 100 mg 100 mg PO DAILY 12/28/22 09/20/23 tablet (Vitamin B-2) cholecalciferol (vitamin D3) 50 2,000 unit PO DAILY 02/03/23 09/20/23 mcg (2,000 unit) capsule propranolol 10 mg tablet 10 mg PO PRN 02/03/23 09/20/23 sertraline 100 mg tablet 200 mg PO DAILY 02/03/23 09/20/23 clobazam 10 mg tablet 10 mg PO DAILY 06/07/23 09/20/23 Previous Rx's ?Medication ?Instructions ?Recorded albuterol sulfate 90 mcg/actuation 1 inh inhalation Q4H PRN shortness 10/19/21 breath activated powder inhaler of breath or wheezing 2 weeks #1 ea Allergies Allergy/AdvReac Type Severity Reaction Status Date / Time divalproex sodium (From AdvReac Mild Other (See Unverified 09/20/23 12:00 Depakote) Comment) General Stated Complaint: Orthopedic GM: 4 Review of Systems All systems reviewed & are unremarkable except as noted in HPI and below Musculoskeletal Musculoskeletal: Reports as per HPI and Reports arthralgias Exam Const General: cooperative, healthy appearing and comfortable Nutritional Appearance: well nourished Orientation: alert, awake and oriented x3 Resp Effort & Inspection: normal respiratory effort and able to speak in complete sentences Auscultation: clear to auscultation bilaterally Cardio Rate: regular rate Rhythm: regular rhythm Heart Sounds: S1 normal and S2 normal Neuro General: patient alert, patient awake, patient oriented x3 and tone normal Cranial Nerves: CN's II-XI intact bilaterally Cognition: normal cognition Speech: speech normal Extrem Right lower extremity: ankle Details: normal to inspection, tenderness Location: of the lateral malleolus and anterolaterally, swelling Details: laterally and anteriorly, no edema and achilles tendon exam abnormal; no abrasions and foot Details: normal capillary refill, normal to inspection and toes with normal ROM Course Vital Signs Vital signs: Vital Signs Temperature 36.2 C L 09/20/23 11:57 Pulse 70 09/20/23 11:57 Respiratory Rate 18 09/20/23 11:57 Blood Pressure 118/66 09/20/23 11:57 Pulse Oximetry 98 09/20/23 11:57 Temperature 36.2 C L 09/20/23 11:57 Pulse 70 09/20/23 11:57 Respiratory Rate 18 09/20/23 11:57 Respiratory Effort Normal, Non-Labored 09/20/23 12:08 Blood Pressure 118/66 09/20/23 11:57 Pulse Oximetry 98 09/20/23 11:57 Oxygen Delivery Method Room Air 09/20/23 11:57 Oxygen Flow Rate 0 09/20/23 11:57 Medical Decision Making 37 year old female presents to the ED with cc of right ankle inversion injury. XR shows no evidence of fracture, soft tissue swelling noted, will place in walking boot and instruct on RICE procedures. Patient discharged in hemodynamically stable condition given strict return instructions and follow-up care verbalized understanding. Imaging Data Radiologic Study: Imaging: X-Ray Radiologist's impression: EXAM: XR ANKLE RT COMPLETE CLINICAL HISTORY: Fall, lateral malleolus tenderness. TECHNIQUE: 2D digital imaging was performed. COMPARISON: No exams were available for comparison FINDINGS: 3 views No evidence of acute fracture or widening the ankle mortise. Talar dome unremarkable. Moderate size plantar superior calcaneal spur noted. There appears to be some soft tissue swelling over the metatarsals. No obvious soft tissue swelling around the ankle. IMPRESSION: No acute osseous findings in the ankle. Radiologic Study #2: Imaging: X-Ray Radiologist's impression: EXAM: XR FOOT RT COMPLETE CLINICAL HISTORY: Injury, fall, foot pain. TECHNIQUE: 2D digital imaging was performed. COMPARISON: No exams were available for comparison FINDINGS: 3 views There is soft tissue swelling dorsally over the metatarsals. There is no evidence of acute fracture or diastasis of the Lisfranc joint. Bone density normal. No osseous lesions. Mild degenerative changes noted in the great toe metatarsophalangeal joint. No erosions. No radiopaque foreign bodies. Moderate size inferior calcaneal spur noted. IMPRESSION: As above. Dorsal soft tissue swelling but no obvious fractures evident. Quality:SDOH Health Related Social Needs: Health related social needs risk of homeless PFSH All Active Problems (Updated 09/20/23 @ 13:13 by Parisa Wilder NP) Right ankle sprain (Acute) Muscle spasm (Acute) Sciatica (Acute) 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 Fibromyalgia (Chronic) Treated with marijuana. Patient does not have a medical marijuana card Asthma (Chronic) Hyperlipidemia (Chronic) Migraine headache (Chronic) Depression (Chronic) Hypertension (Chronic) Generalized tonic-clonic seizure (Chronic) Onset 28 years old. Last seizure 2018[place] [facility] [place] pain, bilateral (Chronic) Medical History (Updated 09/20/23 @ 13:13 by Parisa Wilder NP) Abnormal Pap smear of cervix Apr 2023: ASCUS/HPV+ ->colp: benign appearing Oct 2016: Normal/neg Tremor of both hands secondary to Depakote, per pt. Grand mal seizure disorder Last seizure August 2018. History of pre-eclampsia Surgical History (Updated 09/17/23 @ 10:10 by Jany Mcgowan) Hx of tubal ligation August 2019 Laparoscopic b/l salpingectomy History of carpal tunnel surgery of right wrist History of open heart surgery PDA ans ASD repair when younger. Has routine cardiology follow-up Dr. Rai in [place]. Pt. states there is still a slight hole but is monitored H/O knee surgery Social History (System 09/17/23 @ 10:10 by Jany Mcgowan) Smoking/Tobacco Use Status: Never Smoking risk assessment performed?: Yes Alcohol Intake: never Drug use: Daily Substance use type: marijuana Details: Marijuana daily. CBD oil as needed. 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 Katia without issues, attends [employer] History History 4 Para 2 Hx # Term Pregnancies Multiple births Hx # Pregnancies Ectopic pregnancies AB induced 2 Hx Number of Living Children AB spontaneous
--- NOTE | 2023-09-20 12:53 | DI.RAD_ITS ---
Exam(s) XR FOOT RT COMPLETE EXAM: XR FOOT RT COMPLETE CLINICAL HISTORY: Injury, fall, foot pain. TECHNIQUE: 2D digital imaging was performed. COMPARISON: No exams were available for comparison FINDINGS: 3 views There is soft tissue swelling dorsally over the metatarsals. There is no evidence of acute fracture or diastasis of the Lisfranc joint. Bone density normal. No osseous lesions. Mild degenerative rupa nges noted in the great toe metatarsophalangeal joint. No erosions. No radiopaque foreign bodies. Moderate size inferior calcaneal spur noted. IMPRESSION: As above. Dorsal soft tissue swelling but no obvious fractures evident. DATA REPOSITORY: RADIATION DOSE DELIVERED:
--- NOTE | 2023-09-20 12:53 | DI.RAD_ITS ---
Exam(s) XR ANKLE RT COMPLETE EXAM: XR ANKLE RT COMPLETE CLINICAL HISTORY: Fall, lateral malleolus tenderness. TECHNIQUE: 2D digital imaging was performed. COMPARISON: No exams were available for comparison FINDINGS: 3 views No evidence of acute fracture or widening the ankle mortise. Talar dome unremarkable. Moderate size plantar superior calcaneal spur noted. There appears to be some soft tissue swelling over the metat arsals. No obvious soft tissue swelling around the ankle. IMPRESSION: No acute osseous findings in the ankle. DATA REPOSITORY: RADIATION DOSE DELIVERED:
== END 2023-09-20 13:40 | disposition home or self-care (01) ==
PROVIDERS: Emergency Provider Registered Nurse Emergency; PCP Nurse Practitioner Family
DX: S93.401A Sprain of unspecified ligament of right ankle, initial encounter (principal); G40.409 Other generalized epilepsy and epileptic syndromes, not intractable, without status epilepticus; I10 Essential (primary) hypertension; E78.5 Hyperlipidemia, unspecified; Z79.82 Long term (current) use of aspirin; X50.1XXA Overexertion from prolonged static or awkward postures, initial encounter; Y93.01 Activity, walking, marching and hiking; Y92.89 Other specified places as the place of occurrence of the external cause
CPT/HCPCS: 99283; 73610; 73630

== ENCOUNTER 2023-11-16 14:06 | Outpatient (REF) | payer MEDICAID, SELFPAY ==
--- OUTSIDE RECORDS SUMMARY | 2023-11-16 14:10 | XMS_ITS | Encounter Summary ---
[place] [address] Care Team Providers Care Partition Notcher Name Role Phone Lilian Julien APRN Primary Care Provider [phone] Reason for Visit * Auth/Cert (Routine) Specialty Diagnoses / Procedures Referred By Contac t Referred To Contact Diagnoses Cervical spondylosis with myelopathy Cervical Myelopathy Stenosis C5-7 Procedures PRO ARTHRODESIS, POST/POSTEROLAT TQ, SNGLE INTERSPACE; CERVICAL BELOW C2 SEGMNT PRO ARTHRODESIS POSTERIOR/PSTLAT TECH 1 INTERSPACE LUMBAR, EA ADD'L INTERSPACE PRO POSTERIOR SEGMENTAL INSTRUMENTATION 3-6 VRT SEG PRO LAMINEC/FACETECT/FORAMIN, CERVICAL 1 SEG PRO AUTOGRAFT SPINE SURGERY LOCAL FROM SAME INCISION PRO ALLOGRAFT FOR SPINE SURGERY ONLY MORSELIZED PRO APPLY/REMOVE CRANIAL FIX DEV OPTIME, IMPLANTABLE/INSERTABLE DEVICE, NOC OPTIME, ANCHOR/SCREW FOR OPPOSING BN-TO-BN OR SOFT [id number] (IMPLANTABLE) @ARTHRODESIS, POSTERIOR CERVICAL SPINE (WRVU 17.4) Charly Wilkins MD [facility] [place] [address] [facility] Referral ID Status Reason Start Date Expiration Date Visits Re quested Visits Authorized [id number] 1 1 Encounter Details Date Type Department Care Team (Late st Contact Info) Description 06/10/2023 1:21 PM EDT Anesthesia [place] [address] Hernan Barros MD [facility] [address] Anesthesia Record Procedure Summary Procedure Name Responsible Anesthesiologist Anesthesia Start Time Anesthesia Stop Time @ARTHRODESIS, POSTERIOR CERVICAL SPINE (WRVU 17.4) (Spine Cervical) Hernan Barros MD 06/10/23 1321 06/10/23 1818 Events Date Time Event Comment 06/10/2023 1010 1321 AN Verify 1321 Start 1321 An Start Data 1326 An Induction 1329 An Intubation 1350 Break/Relief In I assumed ca re for Break Relief before which we: 1. Identified the patient 2. Identified the responsible provider(s) 3. Reviewed the pertinent medical history 4. Discussed the surgical plan and course 5. Reviewed intra-op anesthesia management and issues during anesthesia 6. Set expectations for the relief (and/or post-procedure) period 7. Allowed opportunity for questions and acknowledgement of understanding Fabby Hair CRNA 1423 Break/Relief Out 1442 Anesthesia Ready 1451 Procedure Start 1453 Skin Incision 1613 an nate now 1702 Handoff Intra-procedure anesthesia care was transferred after review of the patient's history, current anesthetic/surgical status and procedural plan, anticipated issues and expected post-operative course (including disposition.) Lamonte Hartley 1725 Quick Note Neuromonitoring completed 1805 Extubation/LMA Out Patient s uctioned prior to extubation, oral airway in place, ETT removed with patient appropriately spontaneously ventilating. Head of bed elevated after extubation with adequate tidal volumes after ETT removal with C-collar in place, no head or neck manipulation with extubation. No respiratory concerns at this time. 1807 an stop data 1818 Recovery or ICU Handoff Carey ent care was transferred to the destination unit staff after review of the patient's medical history, current anesthetic/surgical status and plan, according to the Provider Handoff Checklist. 181 Stop Meds Name Total IV Lidocaine 100 mg Propofol 200 mg PHENYLephrine 160 mcg ePHEDrine 5 mg Ondansetron 4 mg Dexamethasone 8 mg midazolam 2 mg succinylcholine 300 mg propofol INF 1,748.08 mg REMIfentanil INF 2.93 mg ceFAZolin (Ancef) 2 g vial a ttach to sodium chloride 0.9% 100 mL Mini-Bag Plus 2 g tranexamic acid (Cyklokapron) (100 mg/mL ) infusion 1,334 mg 1,334 mg tranexamic acid (Cyklokapron) (100 mg/mL ) infusion 337.82 mg HYDROmorphone 1.6 mg lactated ringers 1,500 mL * Agents Name O2 * Blood No blood administrations on file. Lines, Drains, and Airways Type Details Placement Removal Incision 06/10/23; 1453; posterior; cervical spine 06/10/23 1453 by Traci Tirado RN Incision 01/05/22; 0952; lowe r; lumbar spine; vertical; LDA not present upon assessment; 06/10/23; 1558 01/05/22 0952 by Kimo Britt RN 06/10/23 1558 by Traci Tirado RN PIV 06/10/23; 1025; 20 gauge, 1 in length; metacarpal vein (top of hand), left; distraction, intradermal injection; 06/11/23; 1628 06/10/23 1025 by Guy Barnard RN 06/11/23 1628 by Melvina Brooks RN ETT Mask Ventilation: Ea sy (1); ETT Type: Cuffed, Oral; ETT Size: 7 mm; Indirect: Video; Attempts: 1; Laryngoscopy Grade: 1; ETT Placement Verified By: Auscultation, Capnometry, Visual; Secured at Teeth: 20 cm; Inserted by: anupam christophre; Removal Date: 06/10/23; Removal Time: 180406/10/23 1329 by Lamonte Hartley 06/10/23 1805 by Esthela Lange CRNA PIV 06/10/23; 1332; 20 gauge; basilic vein (medial side of arm), right; Anatomical Landmarks; anupam christopher; 06/11/23; 1628 06/10/23 1332 by Lamonte Hartley 06/11/23 1628 by Melvina Brooks RN Arterial Line 06/10/23; 1400; radi al artery, right; 20 gauge; Anatomical Landmarks; continuous blood pressure monitoring; Anupam christopher; Sterile Prep, Sterile Gloves; no longer indicated; 06/10/23; 18406/10/23 1400 by Lamonte Hartley 06/10/23 1845 by Domi Carrillo RN Urethral Catheter 06/10/23; 1410; Surg jeniffer longer than 2 hours, Physician order; Immobility without alternative; indwelling double lumen catheter; latex, hydrophilic coated; 14; inserted at this facility; 1; 10; 10; other (see comments) (inserted under general anesthesia); drainage bag; 06/11/23; 0814 06/10/23 1410 by Traci Tirado RN 06/11/23 0814 by Jessica Valdes RN Closed/Suction Drain 06/10/23; 1720; Posterior; Neck; 10 Tristanian 06/10/23 1720 by Cindy Beltran RN 06/11/23 1628 by Melvina Brooks RN documented in this encounter Social History Tobacco Use Types Packs/Day Years Used Date Smoking Tobacco: Never Smokeless Tobacco: Never Comments:vapes but not nicot ine Alcohol Use Standard Drinks/Week Comments Never 0 (1 standard drink = 0.6 oz pur e alcohol) [facility] Utilities Answer Date Recorded In the past 12 months has bunkersofa, gas, oil, or water [employer] threatened to shut off services in your home? No 06/11/2023 Overall Financial Resource Strain (CARDIA) Answe r Date Recorded How hard is it for you to pa y for the very basics like food, housing, medical care, and heating? Somewhat hard 03/13/2022 Exercise Vital Sign Answer Date Recorde d On average, how many days pe r week do you engage in moderate to strenuous exercise (like a brisk walk)? 2 days Minutes of Exercise per Session Not on file 03/13/2022 Hunger Vital Sign Answer Date Recorded Within the past 12 months, y ou worried that your food would run out before you got the money to buy more. Sometimes true Within the past 12 months, t he food you bought just didn't last and you didn't have money to get more. Never true 11/2023 PRAPARE - Transportation Answer Date Re corded In the past 12 months, has l ack of transportation kept you from medical appointments or from getting medications? No 11/2023 In the past 12 months, has l ack of transportation kept you from meetings, work, or from getting things needed for daily living? No 06/11/2023 Housing Stability Vital Sign Answer Kareem e Recorded In the last 12 months, was t here a time when you were not able to pay the mortgage or rent on time? No 06/11/2023 In the last 12 months, how many places have you lived? 1 06/11/2023 In the last 12 months, was t here a time when you did not have a steady place to sleep or slept in a residential (including now)? No 06/11/2023 DH IPV Inpatient Questions Answer Date Recorded Does Anyone Try to Keep You From Having Contact with Others or Doing Things Outside Your Home? no 06/10/2023 Feels Threatened by Someone no 10/2023 Feels Unsafe at Home or Work/School no 06/10/2023 Physical Signs of Abuse Present no 06/10/2023 Sex and Gender Information Value Date Recorded Sex Assigned at Not on file Gender Identity Not on file Sexual Orientation Not on file documented as of this encounter OR Notes * Anesthesia Postprocedure Evaluation - Hernan Barros MD - 06/10/2023 6:34 PM EDT Department of Anesthesiology Post-procedure Note Patient: Bessie Levy Procedure Summary Date: 06/10/23 Room / Location: [facility] OR [facility] MAIN OR Anesthesia Start: 1321 Anesthesia Stop: 1818 Procedures: @ARTHRODESIS, POSTERIOR CERVICAL SPINE (WRVU 17.4) (Spine Cervical) ARTHRODESIS, POSTERIOR VERTEBRAL EA.ADD. SEGMENT (WRVU 6.43) (Spine Lumbar) POST SPINAL INSTRUMENTATION, 3-6 VERTEBRA, NON SEGMENTAL (WRVU 12.56) (Spine Lumbar) LAMINECTOMY, FACETECTOMY & FORAMINOTOMY, CX, ONE LEVEL (WRVU 17.95) (Spine Cervical) EA ADD'L VERTEBRAL SEGMENT CERVICAL, THORACIC, LUMBAR (WRVU 3.47) (Spine Thoracic) AUTOGRAFT FOR SPINE SURGERY ONLY, SAME INCISION (WRVU *) (Bilateral) ALLOGRAFT FOR SPINE SURGERY ONLY; MORSELIZED (WRVU *) (Bilateral) PLACEMENT-CRANIAL TONGS (INCLUDING REMOVAL) (WRVU 4) (Spine Cervical) MODIFIER,POSTERIOR CERVICAL INFINITY MEDTRONIC MODIFIER,O-ARM, MOR (Bilateral) MODIFIER LEVO HEAD POSITIONER SPINE (Bilateral) MODIFIER,STEALTH 3 W/O KINEVO,CRANI/SPINE ONLY (Bilateral) STEREOTACTIC COMPUTER-ASSTD NAVIGATIONAL SPINAL (WRVU 3.75) (Bilateral) MODIFIER C5 MODIFIER C6 MODIFIER C7 MODIFIER T1 Diagnosis: Cervical spondylosis with myelopathy (Cervical Myelopathy Stenosis C5-7) Surgeons: Charly Wilkins MD Responsible Provider: Hernan Barros MD Anesthesia Type: general ASA Status: 3 All Anesthesia Providers: Anesthesiologist: Hernan Barros MD NEMATOLOGY TEACHER: Esthela Lange CRNA Student Nurse Body Coverer: Lamonte Hartley Vitals Value Taken Time BP 155/99 06/10/23 1830 Temp 36.8 ??C (98.2 ??F) 06/10/23 1815 Pulse 105 06/10/23 1832 Resp 24 06/10/23 1832 SpO2 95 % 06/10/23 1832 Pain Level Vitals shown include unfiled device data. Patient Location: PACU/SDP Level of Consciousness: Conscious but Sleepy Pain Management: Satisfactory Analgesia PONV: None Cardiovascular Status: At Baseline and Hemodynamically Stable Respiratory Status: Supplemental O2 (NC or FM) Postoperative Fluid Status: Intravascular EUvolemia Possible Anesthetic Complications: NONE apparent at time of evaluation Final Primary Anesthesia Type: General (The anesthetic type performed was the same as planned.) Comments: Hernan Barros MD * Anesthesia Preprocedure Evaluation - Hernan Barros MD - 06/07/2023 2:26 PM EDT Pre-Anesthesia Evaluation for: Bessie Levy a 37 y.o. female. Procedure(s): @ARTHRODESIS, POSTERIOR CERVICAL SPINE (WRVU 17.4) ARTHRODESIS, POSTERIOR VERTEBRAL EA.ADD. SEGMENT (WRVU 6.43) POST SPINAL INSTRUMENTATION, 3-6 VERTEBRA, NON SEGMENTAL (WRVU 12.56) LAMINECTOMY, FACETECTOMY & FORAMINOTOMY, CX, ONE LEVEL (WRVU 17.95) EA ADD'L VERTEBRAL SEGMENT CERVICAL, THORACIC, LUMBAR (WRVU 3.47) AUTOGRAFT FOR SPINE SURGERY ONLY, SAME INCISION (WRVU *) ALLOGRAFT FOR SPINE SURGERY ONLY; MORSELIZED (WRVU *) PLACEMENT-CRANIAL TONGS (INCLUDING REMOVAL) (WRVU 4) MODIFIER,POSTERIOR CERVICAL INFINITY MEDTRONIC MODIFIER,O-ARM, MOR MODIFIER LEVO HEAD POSITIONER SPINE MODIFIER,STEALTH 3 W/O KINEVO,CRANI/SPINE ONLY STEREOTACTIC COMPUTER-ASSTD NAVIGATIONAL SPINAL (WRVU 3.75) MODIFIER C5 MODIFIER C6 MODIFIER C7 MODIFIER T1 Patient Active Problem List Diagnosis Date Noted ??? Osteoarthritis of cervical spine with myelopathy 05/21/2023 ??? Fibroid, uterine 03/12/2023 ??? Asthma 07/25/2022 ??? Contusion of muscle 07/25/2022 ??? Depression 07/25/2022 ??? Fibromyalgia 07/25/2022 ??? Headache 07/25/2022 ??? Generalized tonic-clonic seizure 07/25/2022 ??? History of carpal tunnel surgery of right wrist 07/25/2022 ??? Hx of tubal ligation 07/25/2022 ??? History of open heart surgery 07/25/2022 ??? History of pre-eclampsia 07/25/2022 ??? Hyperlipidemia 07/25/2022 ??? Hypertension 07/25/2022 ??? Hypokalemia 07/25/2022 ??? Knee pain, bilateral 07/25/2022 ??? Low back pain 07/25/2022 ??? Migraine headache 07/25/2022 ??? Pruritic erythematous rash 07/25/2022 ??? Sciatica 07/25/2022 ??? Tremor 07/25/2022 ??? Morbid obesity with BMI of 40.0-44.9, adult 01/08/2022 ??? Seizure-like activity 07/04/2021 ??? s/p L4-5 decompression, PSIF Dr. Wilkins 01/04/2020 ??? Seizures 05/05/2018 ??? CIS - ASD, S/P repair ??? CIS - Asthma ??? CIS - Depression Past Medical History: Diagnosis Date ??? s/p L4-5 decompression, PSIF Dr. Wilkins 01/04/2020 Added automatically from request for surgery [id number] ??? Transfusion history 2002 Past Surgical History: Procedure Laterality Date ??? CARDIAC SURGERY ASD repair at [facility] 2002 ??? PRO ALLOGRAFT FOR SPINE SURGERY ONLY MORSELIZED Bilateral 01/05/2022 ALLOGRAFT FOR SPINE SURGERY ONLY; MORSELIZED (WRVU *) performed by Charly Wilkins MD at [facility] MAIN OR ??? PRO ARTHRODESIS COMBINED TECHNIQUE 1 INTERSPACE LUMBAR Bilateral 01/05/2022 ARTHRODESIS, COMB. POST OR POSTEROLAT W/LAMI &/OR DISC SINGLE INTERSPACE; LUMBAR (WRVU 27.75) performed by Charly Wilkins MD at [facility] MAIN OR ??? PRO ARTHRODESIS POSTERIOR/PSTLAT TECHNIQUE 1 INTERSPACE LUMBAR Bilateral 01/05/2022 ARTHRODESIS, LUMBAR SPINE, SINGLE INTERSPACE (WRVU 23.53) [facility]?? PRO AUTOGRAFT SPINE SURGERY LOCAL FROM SAME INCISION Bilateral 01/05/2022 AUTOGRAFT FOR SPINE SURGERY ONLY, SAME INCISION (WRVU *) performed by Charly Wilkins MD at [facility] MAIN OR ??? PRO INJECTION DX/THER SBST INTRLMNR LMBR/SAC W/IMG GDN Midline 05/18/2021 INJECTION, EPIDURAL, LUMBAR OR SACRAL (CAUDAL), WITH IMAGING GUIDANCE (WRVU 1.8) performed by Sarah Munguia MD at [facility] PAIN MGMT MSO ??? PRO LAMINEC/FACETECT/FORAMIN, LUMBAR 1 SEG Bilateral 01/05/2022 LAMINECTOMY, FACETECTOMY & FORAMINOTOMY,LUMBAR, ONE LEVEL (WRVU 15.37) performed by Charly Wilkins MD at [facility] MAIN OR ??? PRO POSTERIOR NON-SEGMENTAL INSTRUMENTATION Bilateral 01/05/2022 POSTERIOR SPINAL NON-SEGMENTAL INST.(ONE SPACE) (WRVU 12.52) performed by Charly Wilkins MD at [facility] MAIN OR ??? PRO STEROTACTIC CPTR ASSTD PX SPINAL Bilateral 01/05/2022 STEREOTACTIC COMPUTER-ASSTD NAVIGATIONAL SPINAL (WRVU 3.75) performed by Charly Wilkins MD at [facility] MAIN OR Social History Tobacco Use ??? Smoking status: Never ??? Smokeless tobacco: Never ??? Tobacco comments: vapes but not nicotine Substance Use Topics ??? Alcohol use: Never Social History Substance and Sexual Activity Drug Use Yes ??? Frequency: 7.0 times per week ??? Types: Marijuana Comment: vapes and smoke at least once daily Allergies Allergen Reactions ??? Depakote [Divalproex] Other (See Comments) Edema Medications: MAR and/or home medications have been reviewed. Physical Exam: Preprocedure Vitals Current as of 06/07/23 1426 No BP, pulse, respiration, SpO2, or temperature recorded. Height: 154.9 cm (5' 1) (05/21/23) Weight: 88.9 kg (196 lb) (05/21/23) BMI: 37.03 IBW: 47.8 kg (105 lb 4.8 oz) Airway Assessment: Mallampati: II TM distance: >3 FB Neck ROM: limited Cardiovascular Assessment: Rhythm: regular Rate: normal Pulmonary Assessment: unlabored breathing Dental Assessment: Misc Assessment: IV access: Peripheral line Last Filed Perioperative Cognitive Screening None Anesthesia Plan: ASA 3 general, with a(n) intravenous induction 37 yo F for Post Cervical 5-7 Arthrodesis. C5-7 stenosis, Obesity, ASD post open repair 20 years ago (residual small with L-R shunt), Asthma, Depression, Htn, Hld, seizure disorder Allergy to Depakote PO Tylenol, IV, GA/ETT, a-line Region - Other Informed Consent: Anesthetic plan and risks discussed with patient. Plan discussed with NEMATOLOGY TEACHER and attending. Anesthesia Screening documented in this encounter Plan of Treatment Upcoming Encounters Date Type Department Care Team (Late st Contact Info) Description 12/24/2023 10:00 AM EDT [place] [address] Tereso Mohan MD [facility] [place] [address] 12/24/2023 10:30 AM EDT Appointment XRay at [address] [place] [address] Shelby Aaron, [employer]ANKING AND FINANCE INSTRUCTOR [facility] [place] [address] 12/24/2023 11:30 AM EDT Office Visit [facility] Sp[facility] Center at [facility] [place] [address] Shelby Aaron BANKING AND FINANCE INSTRUCTOR [facility] [place] [address] documented as of this encounter Visit Diagnoses Not on filedocumented in this encounter Administered Medications Inactive Administered Medications - up to 3 most recent administrations Medication Order MAR Action Action Date Dose Rate Site ceFAZolin (Ancef) 2 g vial attach to sodium chloride 0.9% 100 mL Mini-Bag Plus 2 g, Intravenous, EVERY 4 HOURS, 1 dose, First dose on Sat06/10/23 at 1015, Administer over 30 Minutes, Redose after 4 hours., Day of Surgery (Day of Procedure), Indication for (Active or Suspected): Prophylaxis New Bag 06/10/2023 2:22 PM EDT 2 g dexAMETHasone (Decadron) injection Intravenous, PRN, Starting on Sat06/10/23 at 1447, Until Sat06/10/23 at 1818, Anesthesia Intra-op, Routine Given 06/10/2023 2:47 PM EDT 8 mg ePHEDrine sulfate (5 mg/mL) multi-dose injection Intravenous, PRN, Starting on Sat06/10/23 at 1420, Until Sat06/10/23 at 1818, Anesthesia Intra-op, Routine Given 06/10/2023 2:20 PM EDT 5 mg HYDROmorphone (Dilaudid) (2 mg/mL) multi-dose injection solution Intravenous, PRN, Starting on Sat06/10/23 at 1805, Until Sat06/10/23 at 1818, Anesthesia Intra-op, Routine Given 06/10/2023 6:18 PM EDT 0.6 mg Given 06/10/2023 6:13 PM EDT 0.6 mg Given 06/10/2023 6:05 PM EDT 0.4 mg lactated ringers infusion Intravenous, CONTINUOUS PRN, Starting on Sat06/10/23 at 1321, Until Sat06/10/23 at 1818, Anesthesia Intra-op New Bag 06/10/2023 1:21 PM EDT lidocaine (pf) (Xylocaine) (20 mg/mL) 2% injection syringe Intravenous, PRN, Starting on Sat06/10/23 at 1326, Until Sat06/10/23 at 1818, Anesthesia Intra-op, Routine Given 06/10/2023 1:26 PM EDT 100 mg midazolam (pf) (Versed) (1 mg/mL) multi-dose injection Intravenous, PRN, Starting on Sat06/10/23 at 1318, Until Sat06/10/23 at 1818, Anesthesia Intra-op, Routine Given 06/10/2023 1:18 PM EDT 2 mg ondansetron (pf) (Zofran) (2 mg/mL) injection Intravenous, PRN, Starting on Sat06/10/23 at 1731, Until Sat06/10/23 at 1818, Anesthesia Intra-op, Routine Given 06/10/2023 5:31 PM EDT 4 mg PHENYLephrine in NS (PF) (ÁNGEL-SYNEPHRINE) 0.8 mg/10 mL (80 mcg/mL) multi-dose injection Syringe Intravenous, PRN, Starting on Sat06/10/23 at 1420, Until Sat06/10/23 at 1818, Anesthesia Intra-op, Routine Given 06/10/2023 2:20 PM EDT 160 mcg propofoL (Diprivan) (10 mg/mL) infusion Intravenous, CONTINUOUS PRN, Starting on Sat06/10/23 at 1327, Until Sat06/10/23 at 1818, Anesthesia Intra-op, Routine Rate/Dose Change 06/10/2023 5:26 PM EDT 30 mcg/kg/min 11.682 mL/hr Rate/Dose Change 06/10/2023 3:08 PM EDT 100 mcg/kg/min 38. 94 mL/hr New Bag 06/10/2023 1:27 PM EDT 125 mcg/kg/min 48.675 mL /hr propofoL (Diprivan) 10 mg/mL bolus injection (Anesthesia) Intravenous, PRN, Starting on Sat06/10/23 at 1326, Until Sat06/10/23 at 1818, Anesthesia Intra-op Given 06/10/2023 1:26 PM EDT 200 mg remifentaniL (Ultiva) (0.02 mg/mL) infusion (Anesthesia) Intravenous, CONTINUOUS PRN, Starting on Sat06/10/23 at 1327, Until Sat06/10/23 at 1818, Anesthesia Intra-op Rate/Dose Change 06/10/2023 5:44 PM EDT 0.05 mcg/kg/min 13.575 mL/hr Restarted 06/10/2023 5:02 PM EDT 0.1 mcg/kg/min 27.15 mL/ hr Rate/Dose Change 06/10/2023 4:25 PM EDT 0.2 mcg/kg/min 54. 3 mL/hr succinylcholine (Anectine;Quelicin) (20 mg/mL) injection Intravenous, PRN, Starting on Sat06/10/23 at 1327, Until Sat06/10/23 at 1818, Anesthesia Intra-op, Routine Given 06/10/2023 1:39 PM EDT 50 mg Given 06/10/2023 1:35 PM EDT 50 mg Given 06/10/2023 1:32 PM EDT 50 mg tranexamic acid (Cyklokapron) (100 mg/mL) infusion 1,334 mg 1,334 mg (rounded from 1,333.5 mg = 15 mg/kg/dose ? 88.9 kg), Intravenous, ONCE, 1 dose, On Sat06/10/23 at 1015, Administer no faster than 100 mg/min, Day of Surgery (Day of Procedure), Routine New Bag 06/10/2023 1:55 PM EDT 1,334 mg tranexamic acid (Cyklokapron) (100 mg/mL) infusion 1 mg/kg/hr ? 88.9 kg (0.889 mL/hr, rounded to 0.9 mL/hr), Intravenous, CONTINUOUS, Starting on Sat06/10/23 at 1015, Until Sat06/10/23 at 2043, Maximum infusion rate is 100 mg/min., Day of Surgery (Day of Procedure), Routine New Bag 06/10/2023 1:55 PM EDT 1 mg/kg/hr 0.889 mL/hr documented in this encounter Care Teams Partition Notcher Relationship Specialty Start Date End Date Lilian Julien, SELVIN [facility] [place] [address] PCP - General Family Medicine 03/12/23 documented as of this encounter
--- OUTSIDE RECORDS SUMMARY | 2023-11-16 14:10 | XMS_ITS | Encounter Summary ---
Author Organization [facility] [place] [address] Care Team Providers Care Auto Damage Estimator Name Role Phone Wily Lilian Hicks APRN Primary Care Provider [phone] Reason for Visit * Reason Comments Pain Shoulder/Neck Encounter Details Date Type Department Care Team (Latest Contact Info) Description 07/22/2023 9:00 AM EDT Office Visit [place] [address] Shelby Aaron ACTIVITIES DIRECTOR [facility] [place] [address] S/P C5-T1 posterior decompression and fusion; 06/10/23; Claudette Social History Tobacco Use Types Packs/Day Years Used Date Smoking Tobacco: Never Smokeless Tobacco: Never Comments:vapes but not nicot ine Alcohol Use Standard Drinks/Week Comments Never 0 (1 standard drink = 0.6 oz pur e alcohol) [facility] Utilities Answer Date Recorded In the past 12 months has [employer], gas, oil, or water company threatened to shut off services in your [...] place to sleep or slept in a retirement (including now)? No 06/11/2023 DH IPV Inpatient [...] Sign Reading Time Taken Comments Blood Pressure - - Pulse - - Temperature - - Respiratory Rate - - Oxygen Saturation - - Inhaled Oxygen Concentration - - Weight 90.3 kg (199 lb) 07/22/2023 8:58 AM EDT Height 154.9 cm (5' 1) 07/22/2023 8:58 AM EDT Body Mass Index 37.6 07/22/2023 8:58 AM EDT documented in this encounter Progress Notes * Shelby Aaron APRN - 07/22/2023 9:00 AM EDT [facility] Medical Decision Making: Bessie Levy is a 37 y.o. female seen today now 6 weeks status post posterior decompression andfusion spanning C5-T1. She is doing well without any significant complaints of pain or radicular symptoms. I counseled the patient that she may remove the cervical collar at this point in a back intonormal activities with continued monitoring/limiting excessive lifting. Sutures were removed today without issue and she tolerated this well. I counseled the patient that we would back in 2 months for a routine 3-month postop visit with repeat x- rays or sooner if there are any concerns or issues. Diagnosis: ICD-10-CM 1. S/P C5-T1 posterior decompression and fusion; 06/10/23; Claudette Z98.1 XR Cervical Spine AP Flexion& Extension Only Plan Follow-up in 2 months with repeat x-ray or a 3-month postop visit HPI Surgery: C5-T1 posterior instrumented fusion Date of Surgery: 06/10/2023 Surgeon: Dr. Charly Wilkins MD Surgery: L4-5 decompression with fusion Date of surgery: 01/05/2022 Surgeon: Dr. Charly Wilkins MD Bessie Levy is a 37 y.o. female here for a routine 4-week post-operative visit. she was last seen by Dr. Charly Wilkins MD on 05/21/2023 for chief complaint of upper extremity weakness and physical exam findings suggestive of myelopathy. 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 She is returning today for a routine initial postoperative visit. Today, patient reports that she is doing very well. She has no significant complaints of neck pain,radicular symptoms and she further reports some improvement in overall balance and coordination. She does have some continued altered sensation to the tips of all of her fingers but otherwise, is doing reasonably well. ROS A five point review of systems was completed today and, of note, pertinent positive and negatives are indicated in the HPI. reports that she has never smoked. She has never used smokeless tobacco. Physical Examination: Wt Readings from Last 1 Encounters: 07/22/23 90.3 kg (199 lb) BMI Readings from Last 1 Encounters: 07/22/23 37.60 kg/m?? Pain: 3 (Last 7 days: Lowest- 3 Highest- 6) General: Pleasant, cooperative, Mood and affect are appropriate Posture: Upright Gait: Nonantalgic Palpation: There are no masses, lesions, or deformities. Skin: There is a healing posterior cervical incision without redness, drainage or signs if infection. Sutures are still present Sensation: Grossly intact throughout all dermatomes Neuro: Strength: 5/5 throughout all muscle groups throughout Reflexes: 2+ throughout Imaging and Test Review: On the day of this encounter, I independently reviewed x-rays of the cervical spine obtained today,07/22/2023 demonstrating intact posterior cervical instrumentation without evidence of loosening or hardware failure CC: Lilian Julien APRN Referring Provider: Lilian Aaron APRN 07/22/2023 [facility] documented in this encounter Plan of Treatment Upcoming Encounters Date Type Department Care Team (Late st Contact Info) Description 12/24/2023 10:00 AM EDT [place] [address] Tereso Mohan MD [facility] [place] [address] 12/24/2023 10:30 AM EDT Appointment XRay at [address] [place] [address] Shelby Aaron APRN [facility] [place] [address] 12/24/2023 11:30 AM EDT Office Visit [place] [phone] Shelby Aaron APRN [facility] [place] [address] Scheduled Orders Name Type Priority Associated Diagnoses Orde r Schedule XR Cervical Spine AP Flexion & Extension Only Imaging Routine S/P C5-T1 posterior decompression and fusion; 06/10/23; Claudette Expected: 09/21/2023, Expires: 03/22/2024 documented as of this encounter Visit Diagnoses Diagnosis S/P C5-T1 posterior decompression and fusion; 06/10/23; Claudette Arthrodesis status documented in this encounter Care Teams Auto Damage Estimator Relationship Specialty Start Date End Date Lilian Julien, ACTIVITIES DIRECTOR [facility] [place] [address] PCP - General Family Medicine 03/12/23 documented as of this encounter
--- OUTSIDE RECORDS SUMMARY | 2023-11-16 14:10 | XMS_ITS | Encounter Summary ---
Author Organization [facility] Address [facility] [place] [address] Care Team Providers Care Washer Cutter Name Role Phone Wily Lilian Hicks APRN Primary Care Provider [phone] Reason for Visit * Reason Comments Medication Refill Encounter Details Date Type Department Care Team (Late st Contact Info) Description 11/07/2023 [place] [address] Tereso Mohan MD [facility] [place] [address] Social History Tobacco Use Types Packs/Day Years Used Date Smoking Tobacco: Never Smokeless Tobacco: Never Comments:vapes but not nicot ine Alcohol Use Standard Drinks/Week Comments Never 0 (1 standard drink = 0.6 oz pur e alcohol) [facility] Utilities Answer Date Recorded In the past 12 months has [employer], gas, oil, or water [employer] threatened to shut off services in your [...] place to sleep or slept in a long term (including now)? No 06/11/2023 IPV Inpatient Questions Answer Date Recorded Does [...] documented as of this encounter Miscellaneous Notes * Telephone Encounter - Kirsten Del Valle CMA - 11/07/2023 3:31 PM EDT Prescription Renewal Request Name: Bessie Levy : 1985 Prescription(s) Requested: Requested Prescriptions Pending Prescriptions Disp Refills gabapentin (Neurontin) 300 mg capsule [Pharmacy Med Name: GABAPENTIN 300 MG CAPSULE] 60 capsule 5 Sig: TAKE ONE CAPSULE BY MOUTH TWICE A DAY Date of Encounter last in This Dept (If need an appointment send to secretaries to schedule): 03/12/2023 with Tereso Mohan MD Next Encounter in This Dept: 12/24/2023 with Tereso Mohan MD Date of Last Refill (for each medication): gabapentin (Neurontin) 300 mg capsule TAKE ONE CAPSULE BY MOUTH TWICE A DAY Dispense: 60 capsule, Refills: 5 ordered 05/06/2023 Status of request: Pended Allergies Allergen Reactions Depakote [Divalproex] Other (See Comments) Edema Kirsten Del Valle CMA 11/07/23 3:31 PM documented in this encounter Plan of Treatment Upcoming Encounters Date Type Department Care Team (Late st Contact Info) Description 12/24/2023 10:00 AM EDT Office Visit Neurology at [place] [phone] Teerso Mohan MD [facility] [place] [address] 12/24/2023 10:30 AM EDT Appointment XRay at [address] [place] [address] Shelby Aaron BUCKLE INSPECTOR [facility] [place] [address] 12/24/2023 11:30 AM EDT Office Visit [facility] Sp[facility] Center at [place] [address] Shelby Aaron BUCKLE INSPECTOR [facility] [place] [address] documented as of this encounter Visit Diagnoses Not on filedocumented in this encounter Care Teams Washer Cutter Relationship Specialty Start Date End Date [place] [address] PCP - General Family Medicine 03/12/23 documented as of this encounter
--- OUTSIDE RECORDS SUMMARY | 2023-11-16 14:10 | XMS_ITS | Encounter Summary ---
[place] [address] Care Team Providers Care [employer] Senior Sergeant Name Role Phone Lilian Julien APRN Primary Care Provider [phone] Encounter Details Date Type Department Care Team (Late st Contact Info) Description 05/28/2023 Telephone [facility] [place] [phone] Susanna Jason LPN Social History Tobacco Use Types Packs/Day Years Used Date Smoking Tobacco: Never Smokeless Tobacco: Never Comments:vapes but not nicot ine Alcohol Use Standard Drinks/Week Comments Never 0 (1 standard drink = 0.6 oz pur e alcohol) Overall Financial Resource Strain (CARDIA) Answe r [...] you didn't have money to get more. Sometimes true 12/2022 PRAPARE - Transportation Answer Date Re corded In the past 12 months, has l ack of transportation kept you from medical appointments or from getting medications? Yes 03/04 In the past 12 months, has l ack of transportation kept you from meetings, work, or from getting things needed for daily living? Yes 03/13/2022 Housing Stability Vital Sign Answer Kareem e Recorded In the last 12 months, was t here a time when you were not able to pay the mortgage or rent on time? No 03/13/2022 In the last 12 months, how many places have you lived? 1 03/13/2022 In the last 12 months, was t here a time when you did not have a steady place to sleep or slept in a senior care (including now)? No 03/13/2022 DH IPV Inpatient Questions Answer Date Recorded Does Anyone Try to Keep You From Having Contact with Others or Doing Things Outside Your Home? no 05/21/2023 Feels Threatened by Someone no 05/02 Feels Unsafe at Home or Work/School no 05/21/2023 Physical Signs of Abuse Present Not on file 05/21/2023 Sex and Gender Information Value Date Recorded Sex Assigned at Not on file Gender Identity Not on file Sexual Orientation Not on file documented as of this encounter Miscellaneous Notes * Telephone Encounter - Susanna Jason LPN - 05/28/2023 2:08 PM EDT Images from the original note were not included. Met with today following the surgical evaluation for purpose of providing pre and post operative instructions and to plan for any pre/post- operative discharge needs. is being scheduled for a posterior cervical decompressive instrumented fusion C5-C7, possible extension to T1 w Dr Wilkins on 06/10/2023 Collar Info: Fit patient for [place] J collar; Size needed: Reviewed expectations re collar provision and use postoperatively. Provided education & reviewed importance of daily skin assessment, and pad changes as needed. Preop Medication Holds: Advised pt of need to hold anticoagulants, NSAIDs, ASA products, Fish Oil, and dietary supplements for ~10 days preoperatively. Reviewed medication list. Pt agreed to hold ASA, Naproxen as instructed. is not noted to be taking any prescription Anticoagulants or Biologics. Opioid Risks and Pain Management: Patient reviewed and signed the Acute Opioid Consent. The signed form was passed to the OR planner scheduler to be scanned. Reviewed with that she is likely to experience some incisional pain as well as throat discomfort and difficulty swallowing postoperatively. Reviewed some strategies to ease swallowing during the acute recovery period. Reviewed with pt that continued or new intrascapular pain is not uncommon following a cervical fusion. Emphasized the importance of relaxing she shoulders and keeping themin a neutral position; explaining that guarding will increase muscle tension resulting in increasedpain and spasms. Discussed with pt expectations re postoperative incisional and extremity pain, to include expectations re potential new or increased N/T. See PDMP query below. Reviewed current and historical opioid use. is not noted to be on opioids currently. Acute post-operative pain mgmt is expected to be ordered by Dr Wilkins and his team. Reviewed in detail non-opioid pain mgmt strategies that should be put in place postoperatively to minimize opioid use. Strategies discussed included: rest and relaxation, activity modification, regular repositioning, regular Acetaminophen use, hourly ice application to incisional area and intrascapular region for local analgesia/inflammation. Explained that the non-opioid pain mgmt strategies areintended to be the first line of treatment to assist with her postop pain. Advised pt that she should contiue the non- opioid pain mgmt treatments as long as he's taking the opioids; that the opioid is the first treatment that should be discontinued. Advised that the opioid pain medication that will be prescribed is to be used to supplement the non-opioid methods. Advised pt that she is to take the least amt of opioid possible, and the expectation is that she will reduce use as the postoperative pain subsides. Reminded pt, that given she is scheduled for a fusion, that NSAIDS need to be held postoperatively for several months. Provided instructions and general expectations re prescription refill practices/timing. Acute Opioid Prescribin05/28/2023 12/14/2021 Opioid PDMP [place] PDMP Query Date 05/28/2023 12/14/2021 Comment Clobazepam anti seizure meds Clobazam 10 mg times 6 months No data to display 05/28/2023 Acute Opioid Specific Questions Date Acute Consent signed 04/30/2023 Activity: Reviewed with our expectations re activity postoperatively, to include use of good body mechanics, to relax when moving rather than tensing/guarding, and our expectations re progressive walking upon return home. Advised that she would not be able to drive while taking opioid pain medicationl if has distracting pain or extremity numbness, and while wearing a cervical collar. Home Support/Services Expected: Discussed home environment and support available following discharge. Pt denies having any transportation concerns. Pt has access to the following DME as needed postoperatively: Patient has the support of at discharge. It's anticipated that pt will go home. Explained to pt that the need for VNA will be determined during the hospital stay; if indicated, VNA orders would be placed prior to discharge. Suggesed to pt that she advise inpt staff if she feels she is in need of VNA services. Employment Status/Disability/FMLA: Employment status: not employed A copy of [facility] Center Pre/Post-Operative Reference sheet provided to pt; reviewed the content. Encouraged to review these instructions prior to coming into the hospital and then again uponreturn home so that the instructions will be recalled easily. verbalized understanding of the information reviewed.. was given the contact information for the Spine Center Nursing staff; she was encouraged to call pre or postoperatively with any questions or concerns. Optimization letter initiated and pended to the OR planner scheduler to complete and process. documented in this encounter Plan of Treatment Upcoming Encounters Date Type Department Care Team (Late st Contact Info) Description 12/24/2023 10:00 AM EDT Office [place] [address] [facility] [place] [address] 12/24/2023 10:30 AM EDT Appointment XRay at [address] [place] [address] [facility] [place] [address] 12/24/2023 11:30 AM EDT Office Visit [facility] [place] [address] [facility] [place] [address] documented as of this encounter Visit Diagnoses Not on filedocumented in this encounter Care Teams Special [employer] Senior Sergeant Relationship Specialty Start Date End Date Lilian Julien, SELVIN [place] [address] PCP - General Family Medicine 03/12/23 documented as of this encounter
--- OUTSIDE RECORDS SUMMARY | 2023-11-16 14:10 | XMS_ITS | Encounter Summary ---
[place] [address] Care Team Providers Care Turn Out Name Role Phone Lilian Julien APRN Primary Care Provider [phone] Reason for Visit * Auth/Cert (Routine) Specialty [...] OPTIME, ANCHOR/SCREW FOR OPPOSING BN-TO-BN OR SOFT [id number] (IMPLANTABLE) @ARTHRODESIS, POSTERIOR CERVICAL SPINE (WRVU 17.4) Charly Wilkins MD [facility] [place] [address] [facility] Referral ID Status Reason Start Date Expiration Date Visits Re quested Visits Authorized [id number] 1 1 Encounter Details Date Type Department Care Team (Latest Contact Info) Description 06/10/2023 9:39 AM EDT - 06/11/2023 4:33 PM EDT Hospital Encounter Surgical Unit Level 3 Wing [place] [address] Charly Wilkins MD [facility] [place] [address] Osteoarthritis of cervical spine with myelopathy; Cervical spondylosis with myelopathy Discharge Disposition: Home Social History Tobacco Use Types Packs/Day Years Used Date Smoking Tobacco: Never Smokeless Tobacco: Never Comments:vapes but not nicot ine Alcohol Use Standard Drinks/Week Comments Never 0 (1 standard drink = 0.6 oz pur e alcohol) [facility] Utilities Answer Date Recorded In the past 12 months has th e electric, gas, oil, or water company threatened to [...] in a senior care (including now)? No 06/11/2023 DH IPV Inpatient [...] Sign Reading Time Taken Comments Blood Pressure 129/69 06/11/2023 11:44 AM EDT Pulse 95 06/10/2023 8:30 PM EDT Temperature 36.4 ??C (97.5 ??F) 06/11/2023 11:44 AM E DT Respiratory Rate 16 06/11/2023 11:44 AM EDT Oxygen Saturation 99% 06/11/2023 11:44 AM EDT Inhaled Oxygen Concentration - - Weight 90.5 kg (199 lb 9.6 oz) 06/10/2023 10:02 AM EDT Height 154.9 cm (5' 1) 06/10/2023 10:02 AM EDT Body Mass Index 37.71 06/10/2023 10:02 AM EDT documented in this encounter Discharge Summaries * Grazyna Grossman, CIGAR BRANDER - 06/11/2023 12:08 PM EDT Discharge Summary Patient Name: Bessie Levy Patient Age: 37 y.o. Language: Kyrgyz Race: White Ethnicity: Not nor Admit date: 06/10/2023 Discharge date and time: 06/11/2023 Attending Physician: Charly Wilkins MD Discharge Physician: Charly Wilkins MD Follow-up Recommendations for Providers: Will resume daily Aspirin on 06/14/23. See discharge instructions for additional details. Future Appointments Date Time Provider Department Center 07/09/2023 1:30 PM [facility] DX ROOM 2 MH Xray [facility] Rad 07/09/2023 2:20 PM Charly Wilkins MD [facility] [place] [facility] Inpatient Provider Contact Information: Charly Wilkins MD Spine Center: [phone] After hours and weekends, call [facility] Color Matcher, , and have the Orthopedic resident paged. Discharge Diagnoses (Hospital Problems) and Secondary Diagnoses (Chronic Problems): Active Hospital Problems Diagnosis S/P cervical spinal fusion Osteoarthritis of cervical spine with myelopathy s/p posterior C5-T1 fusion, Dr. Wilkins, 06/10/23 Resolved Hospital Problems No resolved problems to display. Active Non-Hospital Problems Diagnosis Fibroid, uterine Asthma Contusion of muscle Depression Fibromyalgia Headache Generalized tonic-clonic seizure History of carpal tunnel surgery of right wrist Hx of tubal ligation History of open heart surgery History of pre-eclampsia Hyperlipidemia Hypertension Hypokalemia Knee pain, bilateral Low back pain Migraine headache Pruritic erythematous rash Sciatica Tremor Morbid obesity with BMI of 40.0-44.9, adult Seizure-like activity s/p L4-5 decompression, PSIF Dr. Wilkins Seizures CIS - ASD, S/P repair CIS - Asthma CIS - Depression Operations/Major Procedures: 06/10/2023 Surgeon(s) and Role: * Charly Wilkins MD - Primary * Henry Eubanks MD - Resident - Assisting Procedure(s): 1. Posterior cervical instrumentation C5-T1. 2. Posterior laminectomy C5-6, C6-7 without facetectomy. 3. Posterior cervical athrodesis C5-T1. 4. Application of local autograft and allograft. 5. Application and removal of Sutherland tongs. 6. Neuro monitoring. History of Presentation: Bessie Levy is a 37 y.o. female with cervical spondylitic myelopathy. She presents with persistent symptoms despite conservative options. The risks and benefits of surgical intervention were discussed including spinal fluid leak, nonunion, instrumentation problems, C5 palsy, Paralysis, neurologic decline, infection, need for further intervention among others. Hospital Course: Bessie Levy was admitted for the above operation. Operative course was as follows. On POD#1 she was allowed out of bed ad david, with no bending or twisting. The patient was instructed to wear a Torres Martinez J at all times. These parameters were reinforced by physical and occupational therapy. The patient was transitioned to oral pain medications on POD#1 and was comfortable after adjustments were made. The omer catheter was removed on POD#1 and she was voiding without difficulty. The drain was removed on 1. On POD#1 the posterior neck silver Mepilex dressing was dry and intact and the wound wasbenign. She did not have a bowel movement prior to discharge but was passing flatus and eating and drinking well. POD#1 Hgb 13.0, down from 15.1 on 3/24, prior to surgery. Hemoglobin drop associated with anemia from a combination of acute blood loss from surgery and hemodilution as expected. Thepatient was asymptomatic, monitored, vital signs stable, with no intervention warranted. No Intervention required based on symptoms and/or transfusion-based guidelines. Bessie Levy's discharge fortuitously was not delayed by this finding. Prior to discharge the patient was afebrile, with stable vital signs and on POD#1, was deemed stable for discharge to home. Of Note: On POD#1, the patient c/o some numbness and tingling both hands - left more than right but no burning, Vital Signs at Discharge: Weight: Wt Readings from Last 1 Encounters: 04/08/24 90.5 kg (199 lb 9.6 oz) Height: Ht Readings from Last 1 Encounters: 04/08/24 154.9 cm (5' 1) HC: HC Readings from Last 1 Encounters: No data found for HC BMI: Body mass index is 37.71 kg/m??. Last value Range last 24 hrs Temperature Temp: 36.4 ??C (97.5 ??F) Temp: [36.2 ??C (97.2 ??F)-36.8 ??C (98.2 ??F)] Heart Rate Heart Rate: 95 Heart Rate: [80-108] Blood Pressure BP: 129/69 BP: (118-159)/(69-99) Respiratory Rate Resp: 16 Resp: [15-24] SpO2 SpO2: 99 % SpO2: [90 %-99 %] Art BP BP (Arterial Line): 144/136 BP (Arterial Line): (144-147)/(110-136) Functional and Cognitive Status: Patient mobilizing with a walker, cognitively intact at baseline mental status at time of discharge. Important Lab Data: Last 3 wbc, hgb, hct plt Recent Labs 06/11/23 0233 05/21/23 1337 03/12/23 1058 WBC 16.8* 9.6* 10.9* HGB 13.0 15.1 14.6 HCT 37.8 43.8 42.7 PLATELET 296 310 337 Last 3 Lytes Recent Labs 06/11/23 0233 05/21/23 1337 03/12/23 1058 NA 135 136 136 K 4.1 4.6 4.3 CL 104 103 102 CO2 19* 20* 21* BUN 8 18 18 CREATININE 0.52* 0.68* 0.73 Last 3 LFTs Recent Labs 03/12/23 1058 AST 21 ALT 25 ALKPHOS 43 BILITOT <0.2* BILIDIR 0.1 Last Ca, Mg, Phos Recent Labs 06/11/23 0233 CALCIUM 8.8 Last 3 Coags No results for input(s): PT, INR, PTT in the last 168 hours. Last 3 ProBNP, Trop, CK No results for input(s): CK, TROPONINT, PROBNP in the last 168 hours. Last 3 HgbA1C No results for input(s): HA1C in the last 7068 hours. Last CRP, SEDRATE Recent Labs 03/12/23 1058 SEDRATE 27 Studies: XR Cervical Spine 2 or 3 Views Result Date: 06/11/2023 EXAMINATION: XR CERVICAL SPINE 2 OR 3 VIEWS CLINICAL HISTORY: s/p C5-T1 posterior TECHNIQUE: 2 views of the cervical spine COMPARISON: CT C-spine 05/13/2023 FINDINGS: Cervical spine from C1 to C7 is visualized on the lateral view. status post PSIF of C5-T1 (skipping C6), and dorsal decompression lami nectomy. Hardware are intact, and are in expected alignment. Expected paraspinal soft tissue swelling. Unremarkable prevertebral soft tissue Unchanged cervical spondylosis with multilevel degenerative disease. The lung apex are clear. Median sternotomy wires are noted. Expected postoperative appearance status post PSIF of C5-T1. Thank you for letting us participate in the care of this patient. If you are a health care provider and have any questions regarding this report, please contact the number below. For patients who have questions please contact the health reservoir caretaker that requested your imaging first. Electronically signed by: Daniel Monge MD, [facility] ([phone]), at 06/11/2023 10:27 AM XR Cervical Spine 1 View Result Date: 06/11/2023 EXAMINATION: XR CERVICAL SPINE 1 VIEW CLINICAL HISTORY: intraoperative level confirmation TECHNIQUE: 1 views of the cervical spine COMPARISON: Radiograph C- spine 04/30/2023 FINDINGS: A single lateral view of the cervical spine for intraoperative level confirmation. The level of C1 to C5 is visualized. A metallic localizer device with tip at the level of C4. Cervical spondylosis is unchanged including mild anterolisthesis of C4 on C5. Paraspinous and prevertebral soft tissues are within normal limits. Endotracheal tube and esophageal temperature probe are partially included. As above. Thank you for letting us participate in the care of this patient. If you are a health care provider and have any questions regarding this report, please contact the number below. For patients who have questions please contact the health reservoir caretaker that requested your imaging first.Electronically signed by: Daniel Monge MD, [facility] ([phone]), at 06/11/2023 8:18 AM SCAN DOC: TELEMETRY STRIPS Result Date: 06/10/2023 Ordered by an unspecified provider. CT Cervical Spine wo Contrast Result Date: 05/14/2023 EXAMINATION: CT CERVICAL SPINE WO CONTRAST CLINICAL HISTORY: Cervical myelopathy stenosis. OPLL? Prior CT 2020. M47.12, Other spondylosis with myelopathy, cervical region TECHNIQUE: CT cervical spineperformed without intravenous contrast administration. COMPARISON: MRI cervical spine 03/22/2023 FINDINGS: Prevertebral soft tissues are normal in thickness. 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 Mild levoconvex curvature centered at C6. Unchanged few millimeter anterolisthesis of C4 with respect to C5.Unchanged asymmetric anterior disc height loss at C4-5. Similar appearance of disc herniations at C3- C4, C5-6 and C6-7; canal stenosis is better visualized on prior MRI. Endplate irregularity at C6-7with posterior marginal endplate osteophytes. At C5-6, there is ossification/mineralization along the right paracentral disc herniation margin. No midline mineralization of the posterior longitudinalligament at C5-6 or C6-7. There is mild central mineralization posterior to the vertebral body at C6. Craniocervical junction anomaly. Small component of mineralization associated with right paracentral disc herniation at C5-6. Thank you for letting us participate in the care of this patient. If you are a health care provider and have any questions regarding this report, please contact the number below. For patients who have questions please contact the health reservoir caretaker that requested your imaging first. Pending Studies and Lab Data at Discharge: None Transfusions: No Discharge Conditions/Prognosis: Stable, awake, and alert. Mobilizing as noted above, pain controlled on oral medications. Discharge to: Home with family. Updated Allergies/ADRs: Allergies Allergen Reactions Depakote [Divalproex] Other (See Comments) Edema Immunizations Given this Hospitalization: Immunization History Administered Date(s) Administered Influenza (Novel [id number]) Injectable 04/26/2009 Influenza Vaccine, Whole 04/26/2009 Discharge Medications: Your Medications New Medications Dose Details acetaminophen 500 mg tablet Commonly known as: Tylenol Take 2 tablets by mouth every 8 hours. Continue the Tylenol around the clock for 10 days after surgery, (06/20/23). Then may take if needed per package insert. Do not take more than 3,000 mg of Tylenol in 24 hours. 1,000 mg Refills: 0 oxyCODONE 5 mg tablet Commonly known as: Roxicodone Take 1-2 tablets by mouth every 4 hours as needed for Pain (Acute post-op surgical pain). 5-10 mg Quantity: 42 tablet Refills: 0 polyethylene glycoL 17 gram oral powder packet Commonly known as: Miralax Take 17 g by mouth 2 times daily as needed (constipation). 17 g Refills: 0 senna-docusate 8.6-50 mg Tablet Commonly known as: Pericolace Take 2 tablets by mouth 2 times daily as needed for Constipation. 2 tablet Refills: 0 Continued medications, unchanged Dose Details ARIPiprazole 2 mg tablet Commonly known as: Abilify Take 2 mg by mouth daily. 2 mg Refills: 0 cholecalciferol (Vitamin D3) 50 mcg (2,000 unit) tablet Commonly known as: Vitamin D3 Take 1 tablet by mouth daily. 2,000 Units Quantity: 90 tablet Refills: 3 CITRUCEL ORAL Take by mouth as needed. Refills: 0 cloBAZam 10 mg tablet Commonly known as: Onfi Take 1 pill in AM and 2 pills in PM Quantity: 90 tablet Refills: 5 cyclobenzaprine 5 mg tablet Commonly known as: Flexeril Take 1 tablet by mouth 3 times daily as needed for Muscle spasms. 5 mg Quantity: 90 tablet Refills: 5 gabapentin 300 mg capsule Commonly known as: Neurontin TAKE ONE CAPSULE BY MOUTH TWICE A DAY 300 mg Quantity: 60 capsule Refills: 5 lisinopriL 10 mg tablet Commonly known as: Zestril Take 10 mg by mouth every morning. 10 mg Refills: 0 Magnesium Oxide 250 mg magnesium Tablet TAKE ONE TABLET BY MOUTH TWICE A DAY 1 tablet Quantity: 60 tablet Refills: 5 ProAir HFA 90 mcg/actuation inhaler (HFA) INL 1 TO 2 PFS PO Q 4 TO 6 H PRN Generic drug: albuteroL Refills: 0 riboflavin (Vitamin B2) 100 mg tablet Commonly known as: Vitamin B2 Take 2 tablets by mouth 2 times daily. 200 mg Quantity: 120 tablet Refills: 11 sertraline 100 mg tablet Commonly known as: Zoloft Take 1 tablet by mouth daily. 1 tablet Refills: 0 UNABLE TO FIND Take by mouth as needed. Med Name: CBD oil Refills: 0 STOPPED Medications aspirin EC 81 mg EC (DR) tablet naproxen 500 mg tablet Commonly known as: Naprosyn Smoking Status at Discharge: Social History Tobacco Use Smoking Status Never Smokeless Tobacco Never Tobacco Comments vapes but not nicotine Instructions Given to Patient at Discharge: Patient Instructions Orthopaedic Spine Surgery Discharge Instructions: Activity: 1. You may perform your daily activities as tolerated but minimize bending at the waist greater than 90 degrees, twisting around your waist, or lifting anything heavier than 5-10 lbs (about a full gallon of water.) 2. In general, guide your activity by the thought that if it hurts, don???t do it. 3. In addition, we recommend taking several walks every day after surgery and gradually increasing your distance and duration over the next 2-4 weeks. Diet: 1. Eat your normal diet, with adequate amounts of protein and fiber. 2. The pain medications you are taking can cause constipation, so increase your intake of fluids and fiber while you are taking them. 3. You should also take an shld-gfs-gdhtihx stool softener or laxative, such as Lili-colace or Miralax, to facilitate a bowel movement. Drivin. You are not allowed to drive if you are still requiring narcotic pain medication to manage your discomfort. 2. Since you are being sent home in a Cervical Collar, do not drive until you have been cleared by your physician at your follow-up appointment. Call the Spine Center or your Primary Care Physician if you have questions or concerns. Medication: 1. You are being discharged on a narcotic pain medication. Common side effects of this medication include drowsiness, nausea, and constipation. You should only take the smallest amount of pain medication that adequately controls your pain. 2. You may take Tylenol (acetaminophen) around the clock as directed on the package to help reduce the amount of narcotic medication you need. Do not take more than 3,000mg of acetaminophen in a 24 hour period. 3. You have had a spinal fusion surgery. DO NOT take any nonsteroidal anti- inflammatory medication (NSAID) such as Aleve, Ibuprofen, Motrin, Naprosyn, or Advil. 4. If you need a renewal of your pain medication, please contact the Spine Center Prescription Lineat [phone]. PRESCRIPTION RENEWAL REQUESTS CAN TAKE UP TO 3 DAYS TO FILL. Be sure to allow for this when requesting a new prescription. The new prescription will be sent electronically to your preferred pharmacy. 5. You may resume your usual daily Aspirin on 06/14/23. Torres Martinez J Collar Instructions: 1. You are being sent home with a hard cervical collar. It must be worn at all times, including showers and while sleeping. 2. If you are required to wear the collar at all times, you may shower as usual with the collar in place. You will need to remove the collar to dry your skin and change the pads. While sitting upright, hold you head and neck steady while the front or back of your collar is removed. You should hold your head in place until the collar is back in position. After showers you should take care to remove any residual soap from your neck and to replace the wet pads with a clean, dry pair. You will be sent home from the hospital with extra pads and instructions on how to change them. 3. Do not put powder or lotion underneath the pads. 4. You should inspect your skin daily for redness or irritation caused by the collar. If you noticeirritation or you see areas where the hard plastic from the collar is pressing against the skin, please call the [facility] at the number below. 5. Wash the extra pads with mild soap, rinse well, and allow to air dry. Wound Care/Shower/Bath: 1. You have sutures that need to be removed 2-3 weeks after your surgery. This can be done at your follow-up appointment with Dr. Wilkins on 07/09/23. The sutures are covered by a silver Mepilex dressing. 2. This dressing should stay in place until 7 days after your surgery. After 7 days, on 06/17/23, you may remove the dressing and leave the incision uncovered so long as there is no continued drainage. If there is drainage, you may replace the dressing with a clean, dry gauze held in place with tape. Any bandage over the incision should be dry at all times and should be replaced if wet. If the incision continues to drain 5 days after surgery, please call the Spine Center at the number below. 3. For the first 7 days after surgery, avoid getting silver Mepilex dressing wet, as the edges tendto peel up when wet. Keep the dressing dry. After 7 days when the dressing has been removed, you may allow water to run over the incision when you shower but do not scrub the surrounding skin. Gentlypat dry with a clean, dry towel after showering. 4. Do not soak the incision underwater (i.e. lakes, pools, hot tubs, bath tubs, etc.) for at least 4 weeks until the incision has completely healed. PLEASE CALL US AT [phone] TO SPEAK WITH A SPINE CENTER NURSE IF YOU EXPERIENCE THE FOLLOWING: ?? Fevers greater than 101.5 degrees Fahrenheit ?? Chills or night sweats ?? Nausea or vomiting ?? Wound Redness or drainage after 5 days ?? New numbness or tingling in your hands or feet ?? Incontinence of bowel or bladder ?? Any questions or concerns Important Phone Numbers: Clinical issues, nurse questions, medication renewals: [phone] Wilkins: [phone] Evenings after 5pm and weekends you may contact the Orthopaedic resident robotics application engineer: [phone], askthe box blank machine operator to page the Orthopaedic resident Follow Up Appointments: 1. You will have follow-up appointments at [facility] as indicated in the ???Future Appointments and Orders?? section of your discharge summary. If X-rays have been ordered for you prior to this appointment you will need to report to the Radiology department, desk 3T, 1 hour prior to your spine center appointment. 2. If you do not have a scheduled follow-up appointment listed at the time of discharge, you will be notified of your scheduled appointment on the next business day. Please call [phone] if you do not hear from us by that time, as your timely follow-up is very important to us. Future Appointments Date Time Provider Department Center 07/09/2023 1:30 PM [facility] DX ROOM 2 MH Xray [facility] Rad 07/09/2023 2:20 PM Charly Wilkins MD [facility] [place] [facility] General Instructions None Future Appointments and Orders Future Appointments and Orders Future Appointments Provider Department Dept Phone 07/09/2023 1:30 PM [facility] DX ROOM 2 XRay at [facility] Arrive at: [facility] [phone] Please go to [facility] ([place] Location). 07/09/2023 2:20 PM Charly Wilkins MD [facility] at [facility] Arrive at: [facility] [phone] Primary Care Provider: Lilian Julien APRN [phone] Discharge References/Attachments None documented in this encounter Discharge Instructions * Patient Instructions* Grazyna Grossman, SELVIN - 06/11/2023 12:12 PM EDT Orthopaedic Spine Surgery Discharge Instructions: Activity: 1. You may perform your daily activities as tolerated but minimize bending at the waist greater than 90 degrees, twisting around your waist, or lifting anything heavier than 5-10 lbs (about a full gallon of water.) 2. In general, guide your activity by the thought that if it hurts, don???t do it. 3. In addition, we recommend taking several walks every day after surgery and gradually increasing your distance and duration over the next 2-4 weeks. Diet: 1. Eat your normal diet, with adequate amounts of protein and fiber. 2. The pain medications you are taking can cause constipation, so increase your intake of fluids and fiber while you are taking them. 3. You should also take an ylax-cgt-wesvkdu stool softener or laxative, such as Lili-colace or Miralax, to facilitate a bowel movement. Drivin. You are not allowed to drive if you are still requiring narcotic pain medication to manage your discomfort. 2. Since you are being sent home in a Cervical Collar, do not drive until you have been cleared by your physician at your follow-up appointment. Call the Spine Center or your Primary Care Physician if you have questions or concerns. Medication: 1. You are being discharged on a narcotic pain medication. Common side effects of this medication include drowsiness, nausea, and constipation. You should only take the smallest amount of pain medication that adequately controls your pain. 2. You may take Tylenol (acetaminophen) around the clock as directed on the package to help reduce the amount of narcotic medication you need. Do not take more than 3,000mg of acetaminophen in a 24 hour period. 3. You have had a spinal fusion surgery. DO NOT take any nonsteroidal anti- inflammatory medication (NSAID) such as Aleve, Ibuprofen, Motrin, Naprosyn, or Advil. 4. If you need a renewal of your pain medication, please contact the Spine Center Prescription Lineat [phone]. PRESCRIPTION RENEWAL REQUESTS CAN TAKE UP TO 3 DAYS TO FILL. Be sure to allow for this when requesting a new prescription. The new prescription will be sent electronically to your preferred pharmacy. 5. You may resume your usual daily Aspirin on 06/14/23. Torres Martinez J Collar Instructions: 1. You are being sent home with a hard cervical collar. It must be worn at all times, including showers and while sleeping. 2. If you are required to wear the collar at all times, you may shower as usual with the collar in place. You will need to remove the collar to dry your skin and change the pads. While sitting upright, hold you head and neck steady while the front or back of your collar is removed. You should hold your head in place until the collar is back in position. After showers you should take care to remove any residual soap from your neck and to replace the wet pads with a clean, dry pair. You will be sent home from the hospital with extra pads and instructions on how to change them. 3. Do not put powder or lotion underneath the pads. 4. You should inspect your skin daily for redness or irritation caused by the collar. If you noticeirritation or you see areas where the hard plastic from the collar is pressing against the skin, please call the Spine Center Nursing Line at the number below. 5. Wash the extra pads with mild soap, rinse well, and allow to air dry. Wound Care/Shower/Bath: 1. You have sutures that need to be removed 2-3 weeks after your surgery. This can be done at your follow-up appointment with Dr. Wilkins on 07/09/23. The sutures are covered by a silver Mepilex dressing. 2. This dressing should stay in place until 7 days after your surgery. After 7 days, on 06/17/23, you may remove the dressing and leave the incision uncovered so long as there is no continued drainage. If there is drainage, you may replace the dressing with a clean, dry gauze held in place with tape. Any bandage over the incision should be dry at all times and should be replaced if wet. If the incision continues to drain 5 days after surgery, please call the Spine Center at the number below. 3. For the first 7 days after surgery, avoid getting silver Mepilex dressing wet, as the edges tendto peel up when wet. Keep the dressing dry. After 7 days when the dressing has been removed, you may allow water to run over the incision when you shower but do not scrub the surrounding skin. Gentlypat dry with a clean, dry towel after showering. 4. Do not soak the incision underwater (i.e. lakes, pools, hot tubs, bath tubs, etc.) for at least 4 weeks until the incision has completely healed. PLEASE CALL US AT [phone] TO SPEAK WITH A SPINE CENTER NURSE IF YOU EXPERIENCE THE FOLLOWING: ?? Fevers greater than 101.5 degrees Fahrenheit ?? Chills or night sweats ?? Nausea or vomiting ?? Wound Redness or drainage after 5 days ?? New numbness or tingling in your hands or feet ?? Incontinence of bowel or bladder ?? Any questions or concerns Important Phone Numbers: Clinical issues, nurse questions, medication renewals: [phone] Wilkins: [phone] Evenings after 5pm and weekends you may contact the Orthopaedic resident robotics application engineer: [phone], askthe box blank machine operator to page the Orthopaedic resident Follow Up Appointments: 1. You will have follow-up appointments at [facility] as indicated in the ???Future Appointments and Orders?? section of your discharge summary. If X-rays have been ordered for you prior to this appointment you will need to report to the Radiology department, desk 3T, 1 hour prior to your spine center appointment. 2. If you do not have a scheduled follow-up appointment listed at the time of discharge, you will be notified of your scheduled appointment on the next business day. Please call [phone] if you do not hear from us by that time, as your timely follow-up is very important to us. Future Appointments Date Time Provider Department Center 07/09/2023 1:30 PM [facility] DX ROOM 2 Xray [facility] Rad 07/09/2023 2:20 PM Charly Wilkins MD [facility] [place] Sp [facility] documented in this encounter Medications at Time of Discharge Medication Sig Dispensed Refills Start Date End Date acetaminophen (Tylenol) 500 mg tablet Take 2 tablets by mouth every 8 hours. Continue the Tylenol around the clock for 10 days after surgery, (06/20/23). Then may take if needed per package insert. Do not take more than 3,000 mg of Tylenol in 24 hours. 06/11/2023 polyethylene glycoL (Miralax) 17 gram oral powder packet Take 17 g by mouth 2 times daily as needed (constipation). 06/11/2023 senna-docusate (Pericolace) 8.6-50 mg Tablet Take 2 tablets by mouth 2 times daily as needed for Constipation. 06/11/2023 Magnesium Oxide 250 mg magnesium Tablet TAKE ONE TABLET BY MOUTH TWICE A DAY 60 tablet 5 05/06/2023 sertraline (Zoloft) 100 mg tablet Take 150 mg by mouth daily. 02/13/2023 lisinopriL (Zestril) 10 mg tablet Take 10 mg by mouth every morning. 10/18/2022 riboflavin, Vitamin B2, (Vitamin B2) 100 mg tablet Take 2 tablets by mouth 2 times daily. 120 tablet 11 09/17/2022 methylcellulose (CITRUCEL ORAL) Take by mouth as needed. cholecalciferol, Vitamin D3, 50 mcg (2,000 unit) Tablet Take 1 tablet by mouth daily. 90 tablet 3 04/10/2021 ProAir HFA 90 mcg/actuation HFA Aerosol Inhaler INL 1 TO 2 PFS PO Q 4 TO 6 H PRN 04/20/2019 ARIPiprazole (ABILIFY) 2 mg Tablet Take 2 mg by mouth daily. 0 02/03/2018 UNABLE TO FIND Take by mouth as needed. Med Name: CBD oil oxyCODONE (Roxicodone) 5 mg tablet Take 1-2 tablets by mouth every 4 hours as needed for Pain (Acute post-op surgical pain). 42 tablet 06/11/2023 06/18/2023 gabapentin (Neurontin) 300 mg capsule TAKE ONE CAPSULE BY MOUTH TWICE A DAY 60 capsule 5 05/06/2023 11/07/2023 cloBAZam (Onfi) 10 mg tablet Take 1 pill in AM and 2 pills in PM 90 tablet 5 05/06/2023 11/09/2023 cyclobenzaprine (Flexeril) 5 mg tablet Take 1 tablet by mouth 3 times daily as needed for Muscle spasms. 90 tablet 5 07/25/2022 09/16/2023 documented as of this encounter Progress Notes * Grazyna Grossman, CIGAR BRANDER - 06/11/2023 4:10 PM EDT 06/11/23 1545 Posterior mid upper back SUELLEN drain removed without difficulty. Small dry sterile dressing to site. Ten holes present end of drain tubing verified by Carson Paul MD. Posterior mid neck silver Mepilex dressing remained dry and intact. Tolerated well. Grazyna Grossman APRN Inpatient Orthopaedics Pager [phone] * Henry Eubanks MD - 06/11/2023 6:20 AM EDT ORTHOPAEDIC SURGERY INPATIENT POST OP NOTE Patient Name: Bessie Levy Age: 37 y.o. Surgery/Issue: C5-T1 posterior decompression/fusion Attending: Dr. Wilkins Date of surgery: 06/10/2023 SUBJECTIVE / INTERVAL HISTORY: VSS, afebrile Hgb 13 this morning from 15 pre-op from surgical blood loss anemia and hemodilution WBC up to 16.8 from 9.6 pre-op from intra-op dexamethasone No issues overnight Pain well controlled, states 7/10 right now but able to get some sleep overnight Tolerating fluids, looking forward to breakfast Has not been out of bed yet States hand sensation went from dull scratchy like a brillo pad sensation in fingers 2-5 now to pins and needles like my hands are asleep in all fingers but not in palms Patient denies numbness/weakness, chest pain, shortness of breath, dizziness, headache, nausea, vomiting, hoarseness, difficulty swallowing. Pre-op symptoms: 4/5 wrist flexors/extensors, intrinsics/manager etl Pre-op symptoms currently present: Feel numbness on hand, no sensory loss on exam, motor still 4/5 on wrist flexors/extensors, intrinsic/manager etl FOCUSED REVIEW OF SYSTEMS: as above. Active Hospital Problems Diagnosis S/P cervical spinal fusion Osteoarthritis of cervical spine with myelopathy s/p posterior C5-T1 fusion, Dr. Wilkins, 06/10/23 Resolved Hospital Problems No resolved problems to display. Active Non-Hospital Problems Diagnosis Fibroid, uterine Asthma Contusion of muscle Depression Fibromyalgia Headache Generalized tonic-clonic seizure History of carpal tunnel surgery of right wrist Hx of tubal ligation History of open heart surgery History of pre-eclampsia Hyperlipidemia Hypertension Hypokalemia Knee pain, bilateral Low back pain Migraine headache Pruritic erythematous rash Sciatica Tremor Morbid obesity with BMI of 40.0-44.9, adult Seizure-like activity s/p L4-5 decompression, PSIF Dr. Wilkins Seizures CIS - ASD, S/P repair CIS - Asthma CIS - Depression MEDICATIONS: thrombin (Bovine) (Thrombinar) kit gelatin adsorbable 100 (Gelfoam) sponge vancomycin (Vancocin) injection BUpivacaine-EPINEPHrine (Marcaine-epiNEPHrine (PF)) 0.25 %-1:200,000 injection bacitracin zinc-polymyxin B (Polysporin) ointment ARIPiprazole (Abilify) tablet 2 mg cloBAZam (Onfi) tablet 20 mg cloBAZam (Onfi) tablet 10 mg gabapentin (Neurontin) capsule 300 mg lisinopriL (Zestril) tablet 10 mg magnesium oxide (Mag-Ox) tablet 200 mg sertraline (Zoloft) tablet 100 mg sodium chloride 0.9 % (flush) (BD PosiFlush Normal Saline 0.9) flush 5 mL sodium chloride 0.9 % (flush) (BD PosiFlush Normal Saline 0.9) flush 5-20 mL lidocaine (Xylocaine) 1% (10 mg/mL) injection 3 mg polyethylene glycoL (Miralax) packet 17 g senna-docusate (Pericolace) 8.6-50 mg per tablet 2 tablet ondansetron (pf) (Zofran) (2 mg/mL) injection 4 mg sodium chloride 0.9% infusion ceFAZolin (Ancef) 1 g vial attached to sodium chloride 0.9% 50 mL Mini-Bag Plus oxyCODONE (Roxicodone) tablet 5 mg OR oxyCODONE (Roxicodone) tablet 10 mg OR oxyCODONE (Roxicodone) tablet 15 mg acetaminophen (Tylenol) tablet 975 mg famotidine (Pepcid) tablet 20 mg droNABinol (Marinol) capsule 5 mg sodium chloride 0.9% 1,000 mL (06/11/23 0514) OBJECTIVE: Temp: [36 ??C (96.8 ??F)-36.8 ??C (98.2 ??F)] Heart Rate: [78-108] Resp: [15-24] BP: (123-159)/(75-99) Intake/Output Summary (Last 24 hours) at 06/11/2023 0620 Last data filed at 06/11/2023 0514 Gross per 24 hour Intake 2500 ml Output 1710 ml Net 790 ml Body mass index is 37.71 kg/m??. Drain output: 25cc SS Exam: General: NAD, awake/alert, responds to questions Neck: No evidence of hematoma, dressing c/d/i CV: RRR Resp: Breathing comfortably, lungs CTAB Motor: Segment Muscle Action R L C5 Deltoid Shoulder Abd 5 5 C5 Biceps Elbow flexion 5 5 C6 ECRL, ECRB Wrist extension 4 4 C7 Triceps Elbow extension 5 5 C8 Hand Grasp 4 4 T1 Hand intrinsics Finger abd/adduction 4 4 L2 Iliopsoas Hip flexion 5 5 L3 Quadriceps Knee extension 5 5 L4,5 Hamstring Knee Flexion 5 5 L4 Tibialis anterior Dorsiflexion 5 5 L5 Extensor hallucis Great toe extension 5 5 S1 Gastrocnemius, FHL Plantar flexion 5 5 Sensory: Sensation (light touch) (0=absent, 1=impaired, 2=normal) Segment location Right Left C4 top of AC joint 2 2 C5 lat side antecub fossa 2 2 C6 dorsal thumb 1 1 C7 dorsal middle finger 1 1 C8 dorsal small finger 1 1 T1 med side antecub fossa 2 2 T2 apex axilla 2 2 T3 3rd IS (intercostal space) 2 2 T4 nipple line 2 2 T5 5th IS 2 2 T6 6th IS 2 2 T7 7th IS 2 2 T8 8th IS 2 2 T9 9th IS 2 2 T10 10th iS 2 2 T11 11th iS 2 2 T12 mid inguinal ligament 2 2 L1 upper inner thigh 2 2 L2 mid-ant thigh 2 2 L3 med femoral condyle 2 2 L4 medial mal 2 2 L5 dorsum foot, 3rd MT 2 2 S1 lat heal 2 2 S2 Popliteal fossa 2 2 Lab Results Component Value Date NA 135 06/11/2023 K 4.1 06/11/2023 CL 104 06/11/2023 CO2 19 (L) 06/11/2023 BUN 8 06/11/2023 CREATININE 0.52 (L) 06/11/2023 GLUCOSE 133 06/11/2023 CALCIUM 8.8 06/11/2023 Lab Results Component Value Date WBC 16.8 (H) 06/11/2023 HGB 13.0 06/11/2023 HCT 37.8 06/11/2023 MCV 87.5 06/11/2023 PLATELET 296 06/11/2023 Lab Results Component Value Date INR 0.9 11/08/2021 IMAGING: Intra-op lateral shows instrumentation in place at C5 -T1. ASSESSMENT / PLAN: Bessie Levy is a 37 y.o. female 1 Day Post-Op s/p C5-T1 posterior decompression/fusion. Doing well this morning in terms of pain control. Discharge pending evaluation by PT/OTon POD1 and pain control. Activity: ATT in collar at all times Closure: Sutures (remove 21 days) Dressing: mepilex 7 days Drain: 10 holes SUELLEN drain Anticoagulation: mechanical Antibiotics: periop Consults: PT/OT Dispo: pending PT/OT eval Follow-up: as scheduled Henry Eubanks MD 06/11/2023 Future Appointments Date Time Provider Department Center 07/09/2023 1:30 PM [facility] DX ROOM 2 Xray [facility] Rad 07/09/2023 2:20 PM Charly Wilkins MD [facility] [place] Sp [facility] Associated attestation - Charly Wilkins MD - 06/11/2023 8:06 AM EDT Patient doing well this morning. No longer burning in the hands but has some numbness. Collar in place. Well-fitting. Able to lift his hands above her head. Neurologically intact. No increase in clonus. Mobilize today. Charly Wilkins MD [facility] Spine Surgery - Department of Orthopaedic Surgery Associate Professor Of Counseling - Department of Orthopedic Surgery / Academics and Research Cyberathlete Professor - [facility] 06/11/2023 * Andrew Deras RN - 06/10/2023 11:02 PM EDT [facility] Short Stay Unit Transfer to Inpatient Note Inpatient orders written for the patient related to inpatient admission. RN to RN report given to Jillian on L3WD. Reason for transfer explained to the patient. All personal belongings have been sentwith the patient. Patient AOx4, HDS, denies pain, on 3L NC, omer in place, surgical incisions and SUELLEN CDI. * Marlon Conte MD - 06/10/2023 9:06 PM EDT ORTHOPAEDIC SURGERY INPATIENT POST OP NOTE Patient Name: Bessie Levy Age: 37 y.o. Surgery/Issue: C5-T1 posterior decompression/fusion Attending: Dr. Wilkins Date of surgery: 06/10/2023 SUBJECTIVE / INTERVAL HISTORY: Pain well controlled. Patient denies numbness/weakness, chest pain, shortness of breath, dizziness, headache, nausea, vomiting, hoarseness, difficulty swallowing. Pre-op symptoms: 4/5 wrist flexors/extensors, intrinsics/manager etl Pre-op symptoms currently present: Feel numbness on hand, no sensory loss on exam, motor still 4/5 on wrist flexors/extensors, intrinsic/manager etl FOCUSED REVIEW OF SYSTEMS: as above. Active Hospital Problems Diagnosis S/P cervical spinal fusion Osteoarthritis of cervical spine with myelopathy s/p posterior C5-T1 fusion, Dr. Wilkins, 06/10/23 Resolved Hospital Problems No resolved problems to display. Active Non-Hospital Problems Diagnosis Fibroid, uterine Asthma Contusion of muscle Depression Fibromyalgia Headache Generalized tonic-clonic seizure History of carpal tunnel surgery of right wrist Hx of tubal ligation History of open heart surgery History of pre-eclampsia Hyperlipidemia Hypertension Hypokalemia Knee pain, bilateral Low back pain Migraine headache Pruritic erythematous rash Sciatica Tremor Morbid obesity with BMI of 40.0-44.9, adult Seizure-like activity s/p L4-5 decompression, PSIF Dr. Wilkins Seizures CIS - ASD, S/P repair CIS - Asthma CIS - Depression MEDICATIONS: thrombin (Bovine) (Thrombinar) kit gelatin adsorbable 100 (Gelfoam) sponge vancomycin (Vancocin) injection BUpivacaine-EPINEPHrine (Marcaine-epiNEPHrine (PF)) 0.25 %-1:200,000 injection bacitracin zinc-polymyxin B (Polysporin) ointment cloBAZam (Onfi) tablet 20 mg gabapentin (Neurontin) capsule 300 mg sodium chloride 0.9% infusion ceFAZolin (Ancef) 1 g vial attached to sodium chloride 0.9% 50 mL Mini-Bag Plus oxyCODONE (Roxicodone) tablet 5 mg OR oxyCODONE (Roxicodone) tablet 10 mg OR oxyCODONE (Roxicodone) tablet 15 mg acetaminophen (Tylenol) tablet 975 mg droNABinol (Marinol) capsule 5 mg sodium chloride 0.9% 1,000 mL (06/10/231912) OBJECTIVE: Temp: [36 ??C (96.8 ??F)-36.8 ??C (98.2 ??F)] Heart Rate: [78-108] Resp: [15-24] BP: (129-159)/(78-99) Intake/Output Summary (Last 24 hours) at 06/10/20232105 Last data filed at 06/10/20231999 Gross per 24 hour Intake 1800 ml Output 1260 ml Net 540 ml Body mass index is 37.71 kg/m??. Drain output: 25cc SS Exam: General: NAD, awake/alert, responds to questions Neck: No evidence of hematoma, dressing c/d/i CV: RRR Resp: Breathing comfortably, lungs CTAB Motor: Segment Muscle Action R L C5 Deltoid Shoulder Abd 5 5 C5 Biceps Elbow flexion 5 5 C6 ECRL, ECRB Wrist extension 5 5 C7 Triceps Elbow extension 5 5 C8 Hand Grasp 4 4 T1 Hand intrinsics Finger abd/adduction 4 4 L2 Iliopsoas Hip flexion 5 5 L3 Quadriceps Knee extension 5 5 L4,5 Hamstring Knee Flexion 5 5 L4 Tibialis anterior Dorsiflexion 5 5 L5 Extensor hallucis Great toe extension 5 5 S1 Gastrocnemius, FHL Plantar flexion 5 5 Sensory: Sensation (light touch) (0=absent, 1=impaired, 2=normal) Segment location Right Left C4 top of AC joint 2 2 C5 lat side antecub fossa 2 2 C6 dorsal thumb 2 2 C7 dorsal middle finger 1 1 C8 dorsal small finger 1 1 T1 med side antecub fossa 2 2 T2 apex axilla 2 2 T3 3rd IS (intercostal space) 2 2 T4 nipple line 2 2 T5 5th IS 2 2 T6 6th IS 2 2 T7 7th IS 2 2 T8 8th IS 2 2 T9 9th IS 2 2 T10 10th iS 2 2 T11 11th iS 2 2 T12 mid inguinal ligament 2 2 L1 upper inner thigh 2 2 L2 mid-ant thigh 2 2 L3 med femoral condyle 2 2 L4 medial mal 2 2 L5 dorsum foot, 3rd MT 2 2 S1 lat heal 2 2 S2 Popliteal fossa 2 2 Lab Results Component Value Date NA 136 05/21/2023 K 4.6 05/21/2023 CL 103 05/21/2023 CO2 20 (L) 05/21/2023 BUN 18 05/21/2023 CREATININE 0.68 (L) 05/21/2023 GLUCOSE 93 05/21/2023 CALCIUM 9.9 05/21/2023 Lab Results Component Value Date WBC 9.6 (H) 05/21/2023 HGB 15.1 05/21/2023 HCT 43.8 05/21/2023 MCV 85.7 05/21/2023 PLATELET 310 05/21/2023 Lab Results Component Value Date INR 0.9 11/08/2021 IMAGING: Intra-op lateral shows instrumentation in place at C5 -T1. ASSESSMENT / PLAN: Bessie Levy is a 37 y.o. female Day of Surgery s/p C5-T1 posterior decompression/fusion. Discharge pending evaluation by PT/OT on POD1. Activity: ATT in collar at all times Closure: Sutures (remove 21 days) Dressing: mepilex 7 days Drain: 10 holes SUELLEN drain Anticoagulation: mechanical Antibiotics: periop Consults: PT/OT Dispo: pending PT/OT eval Follow-up: as scheduled Marlon Conte MD 06/10/2023 Future Appointments Date Time Provider Department Center 07/09/2023 1:30 PM [facility] DX ROOM 2 MH Xray [facility] Rad 07/09/2023 2:20 PM Charly Wilkins MD [facility] [place] [facility] * Domi Carrillo RN - 06/10/2023 6:45 PM EDT Patient admitted to PACU. Hand off received from Esthela Anisa, LINEMAN [employer]. care assumed. Assessments as documented. Monitors on, alarms audible and individualized to patient. 2029 PACU D/C criteria met 2199 Hand off to ARLETTE Moreno * Charly Wilkins MD - 06/10/2023 5:47 PM EDT Images from the original note were not included. [facility] Charly Wilkins MD MS Lilian Julien, CIGAR BRANDER [address] / [facility] [place] [address] Re: Post- Operative correspondence. Dear Colleagues, I hope all is well. 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 BaselineMSK exam: Sensation decreased in the hands bilaterally in fingers 2-5, otherwise intact light touch throughout upper and lower extremities. UE 5/ 5 strength deltoid, biceps, triceps, but 4/5 wrist flexors, extensors, and interosseous/manager etl. LE 5/5 strength in hip flexors, quads, hamstrings, EHL, anterior tib, pronation of the ankles. Reflexes symmetric in upper and lower extremities though increased. Positive Delgado's bilaterally Patient did well. The patient will likely be discharged to home. I will see the patient back in follow-up in 2-3 weeks. If there are any issues or questions please feel free to contact me. Thank you for the referral and the opportunity to be a part of this patient's care. Warm Regards, Charly Wilkins MD [facility] Department of Orthopedic Surgery Associate Professor Of Counseling Orthopedics Academics and Research Interior Design Professor - [facility] 06/10/2023 documented in this encounter H&P Notes * Henry Eubanks MD - 06/10/2023 12:43 PM EDT Patient Name: Bessie Levy Patient Age: 37 y.o. Birthdate: 1985 Admit date: 06/10/2023 Attending Physician: Charly Wilkins MD ORTHOPEDIC PRE-OPERATIVE HISTORY AND PHYSICAL for ADMISSION, OBSERVATION OR PROCEDURE Date of : 1985 Age: 37 y.o. PCP: Lilian Julien APRN Presenting Diagnosis/Chief Complaint: Cervical myleopathy History of Present Illness: Bessie Levy is a 37 y.o. female who presents for pre-operative examination. Please see Dr. Wilkins's and Ray's notes for full details of the patient's specific problem. Patient denies any changes since last seen in clinic. Denies fevers, chills, headache, dizziness, chest pain, or shortness ofbreath. Review of Systems: complete 10 system ROS performed with pertinent findings below. Pertinent items are noted in HPI. PMHx: Patient Active Problem List Diagnosis Code CIS - ASD, S/P repair CIS - Asthma CIS - Depression Seizures R56.9 s/p L4-5 decompression, PSIF Dr. Wilkins M54.16 Seizure-like activity R56.9 Morbid obesity with BMI of 40.0-44.9, adult E66.01, Z68.41 Asthma J45.909 Contusion of muscle T14.8XXA Depression F32.A Fibromyalgia M79.7 Headache R51.9 Generalized tonic-clonic seizure G40.409 History of carpal tunnel surgery of right wrist Z98.890 Hx of tubal ligation Z98.51 History of open heart surgery Z98.890 History of pre-eclampsia Z87.59 Hyperlipidemia E78.5 Hypertension I10 Hypokalemia E87.6 Knee pain, bilateral M25.561, M25.562 Low back pain M54.50 Migraine headache G43.909 Pruritic erythematous rash L29.8 Sciatica M54.30 Tremor R25.1 Fibroid, uterine D25.9 Osteoarthritis of cervical spine with myelopathy M47.12 Past Medical History: Diagnosis Date s/p L4-5 decompression, PSIF Dr. Wilkins 01/04/2020 Added automatically from request for surgery [id number] Transfusion history 2002 Past Surgical History: Procedure Laterality Date CARDIAC SURGERY ASD repair at [facility] 2002 PRO ALLOGRAFT FOR SPINE SURGERY ONLY MORSELIZED Bilateral 01/05/2022 ALLOGRAFT FOR SPINE SURGERY ONLY; MORSELIZED (WRVU *) performed by Charly Wilkins MD at [facility] MAIN OR PRO ARTHRODESIS COMBINED TECHNIQUE 1 INTERSPACE LUMBAR Bilateral 01/05/2022 ARTHRODESIS, COMB. POST OR POSTEROLAT W/LAMI &/OR DISC SINGLE INTERSPACE; LUMBAR (WRVU 27.75) performed by Charly Wilkins MD at [facility] MAIN OR PRO ARTHRODESIS POSTERIOR/PSTLAT TECHNIQUE 1 INTERSPACE LUMBAR Bilateral 01/05/2022 ARTHRODESIS, LUMBAR SPINE, SINGLE INTERSPACE (WRVU 23.53) [facility] PRO AUTOGRAFT SPINE SURGERY LOCAL FROM SAME INCISION Bilateral 01/05/2022 AUTOGRAFT FOR SPINE SURGERY ONLY, SAME INCISION (WRVU *) performed by Charly Wilkins MD at [facility] MAIN OR PRO INJECTION DX/THER SBST INTRLMNR LMBR/SAC W/IMG GDN Midline 05/18/2021 INJECTION, EPIDURAL, LUMBAR OR SACRAL (CAUDAL), WITH IMAGING GUIDANCE (WRVU 1.8) performed by Sarah Munguia MD at [facility] PAIN MGMT MSO PRO LAMINEC/FACETECT/FORAMIN, LUMBAR 1 SEG Bilateral 01/05/2022 LAMINECTOMY, FACETECTOMY & FORAMINOTOMY,LUMBAR, ONE LEVEL (WRVU 15.37) performed by Charly Wilkins MD at [facility] MAIN OR PRO POSTERIOR NON-SEGMENTAL INSTRUMENTATION Bilateral 01/05/2022 POSTERIOR SPINAL NON-SEGMENTAL INST.(ONE SPACE) (WRVU 12.52) performed by Charly Wilkins MD at [facility] MAIN OR PRO STEROTACTIC CPTR ASSTD PX SPINAL Bilateral 01/05/2022 STEREOTACTIC COMPUTER-ASSTD NAVIGATIONAL SPINAL (WRVU 3.75) performed by Charly Wilkins MD at [facility] MAIN OR Home Medications: Medications Prior to Admission Medication Sig Dispense Refill Last Dose Magnesium Oxide 250 mg magnesium Tablet TAKE ONE TABLET BY MOUTH TWICE A DAY 60 tablet 5 06/07/2023 gabapentin (Neurontin) 300 mg capsule TAKE ONE CAPSULE BY MOUTH TWICE A DAY 60 capsule 5 06/07/2023 cloBAZam (Onfi) 10 mg tablet Take 1 pill in AM and 2 pills in PM 90 tablet 5 06/10/2023 sertraline (Zoloft) 100 mg tablet Take 1 tablet by mouth daily. 06/10/2023 lisinopriL (Zestril) 10 mg tablet Take 10 mg by mouth every morning. 06/07/2023 naproxen (Naprosyn) 500 mg tablet Take 1 tablet by mouth 2 times daily as needed. 60 tablet 12 PastMonth riboflavin, Vitamin B2, (Vitamin B2) 100 mg tablet Take 2 tablets by mouth 2 times daily. 120 tablet 11 06/07/2023 aspirin EC 81 mg EC (DR) tablet Take 1 tablet by mouth daily. 30 tablet 11 Past Month cyclobenzaprine (Flexeril) 5 mg tablet Take 1 tablet by mouth 3 times daily as needed for Muscle spasms. 90 tablet 5 Past Week cholecalciferol, Vitamin D3, 50 mcg (2,000 unit) Tablet Take 1 tablet by mouth daily. 90 tablet 3 06/07/2023 ProAir HFA 90 mcg/actuation HFA Aerosol Inhaler INL 1 TO 2 PFS PO Q 4 TO 6 H PRN 06/07/2023 ARIPiprazole (ABILIFY) 2 mg Tablet Take 2 mg by mouth daily. 0 06/10/2023 methylcellulose (CITRUCEL ORAL) Take by mouth as needed. UNABLE TO FIND Take by mouth as needed. Med Name: CBD oil Allergies: Allergies Allergen Reactions Depakote [Divalproex] Other (See Comments) Edema Family History: Non contributory Family History Problem Relation Age of Onset Uterine Cancer Neg Hx Ovarian Cancer Neg Hx Colorectal Cancer Neg Hx Breast Cancer Neg Hx Social History: Social History Tobacco Use Smoking status: Never Smokeless tobacco: Never Tobacco comments: vapes but not nicotine Vaping Use Vaping Use: Never used Substance Use Topics Alcohol use: Never Drug use: Yes Frequency: 7.0 times per week Types: Marijuana Comment: vapes and smoke at least once daily Physical Exam: VITALS: Temperature Temp: 36 ??C (96.8 ??F) Heart Rate Heart Rate: 78 Blood Pressure BP: 139/87 Respiratory Rate Resp: 16 SpO2 SpO2: 98 % No intake/output data recorded. General: alert, appears stated age, and cooperative Pulmonary: Normal, equal, clear breath sounds bilaterally, and no crepitus Cardiovascular: Regular rate and rhythm, S1S2 present, or without murmur or extra heart sounds MSK exam: Sensation decreased in the hands bilaterally in fingers 2-5, otherwise intact light touch throughout upper and lower extremities. UE 5/ 5 strength deltoid, biceps, triceps, but 4/5 wrist flexors, extensors, and interosseous/manager etl. LE 5/5 strength in hip flexors, quads, hamstrings, EHL, anterior tib, pronation of the ankles. Reflexes symmetric in upper and lower extremities though increased. Positive Delgado's bilaterally Assessment and Plan: 37 y.o. female with the above problem, plan to proceed to OR with Dr. Wilkins for C5-C7, possible extension to T1 posterior cervical decompression and fusion. All questions were answered. I reviewed consent and ensured the patient was properly marked. Henry Eubanks MD Orthopaedic Surgery Pager: [phone] Associated attestation - Charly Wilkins MD - 06/10/2023 5:46 PM EDT Patient seen holding area prior to surgery. Risks and benefits were discussed including CSF leak, persistent symptoms, infection as well as others. Reviewed current symptoms with patient. Discussed surgical procedure. Reviewed consents. All questions answered. Other person present: No other person present Plan discussed with OR team and anesthesia. Charly Wilkins MD [facility] Dental Technician Metal - Orthopedic Spine Surgery Associate Professor Of Counseling - Department of Orthopedic Surgery / Academics and Research Interior Design Professor - [facility] documented in this encounter Procedure Notes * Guy Nina MD - 06/10/2023 5:30 PM EDT NEURODIAGNOSTIC LABORATORY [facility] INTRAOPERATIVE MONITORING REPORT Name: Bessie Levy : 1985 Date of Surgery: 06/10/2023 Surgeon(s): Charly Wilkins MD, Henry Eubanks MD Surgical Procedure: Posterior C5-T1 decompression and instrumentation Monitoring Procedure: Intraoperative free-running EMG of the bilateral C3-S1 innervated muscles of the upper and lower extremities; motor cord monitoring using transcranial motor evoked potentials (tcMEPs) from the aforementioned muscles; sensory cord and brachial plexus monitoring using bilateral ulnar, median, and posterior tibial nerve somatosensory evoked potentials (SSEPs); scalp EEG monitoring; peripheral nerve conduction testing using ulnar nerve stimulation with ipsilateral first dorsalinterosseous pickup, respectively. CPT Codes: 43919 (EEG); 57605 (EMG two limbs); 58276 (limited EMG 2 limbs); 42356 (TOF, 4 nerves); 42082 (upper & lower MEP); 25275 (upper and lower SSEP bilateral); Total IOM time: 3 hours 33 mins. Clinical History: 37-year-old female with history of cervical myelopathy with UE weakness, dysfunction and myelopathic signs on exam. Imaging revealed severe stenosis at C5-C6 and C6-C7 with increased signal in the spinal cord consistent with myelomalacia. She had L4-5 instrumented fusion on 01/05/2022. Monitoring Team: Guy Nina MD; Mora Jaimes PhD, CN; Joss Jason [facility] Anesthesia: Propofol, no muscle relaxant after intubation. Report: Following anesthesia and prior to positioning the patient, surface needle electrode pairs were placed bilaterally in the trapezius, deltoid, biceps, triceps, extensor carpi radialis, abductor pollicis brevis, abductor digiti minimi, and abductor hallucis brevis muscles. Surface needle electrodes were also placed at appropriate locations on the scalp to record cortical SSEPs from stimulation leadsplaced bilaterally over the ulnar, median, and posterior tibial nerves. Stimulating electrodes wereplaced at scalp locations C3, and C4 to elicit tcMEPs in the aforementioned muscles. Counts were kept of all needles and other items attached to the patient for monitoring, and all were accounted for and disposed of at the conclusion of the surgery. At baseline before positioning, reproducible cortical SSEPs were obtained from the bilateral ulnar,median and posterior tibial nerves stimulations. Right upper SSEPs were relatively delayed in comparison to the left side responses. Baseline peripheral motor conduction testing indicated adequate peripheral conduction and validated subsequent EMG-based monitoring. Concurrently, tcMEPs were elicited from all monitored muscles, except the left foot. EEG was typical for the type of anesthesia beingused, with periods of time showing burst suppression. After flipping the patient to prone position, all signals remained unchanged. The screw placement was uneventful. Decompression completed without triggering any EMG activities. At closing, all signals remained stable and unchanged from baseline. Impression: No worrisome changes were noted that would suggest new, fixed post-operative neurologic deficits. I agree with these findings as documented and have made any appropriate edits. I spent 50 minutes monitoring this case in person, without simultaneous or remote case monitoring. Additionally, I spent 2 hours 15 minutes monitoring this case remotely or along with concurrent studies. These times are exclusive of technical set-up and interpretation of study baselines. Guy Nina MD Board Certification in Clinical Neurophysiology (ABPN) Department of Neurology [facility] CC: Charly Wilkins MD documented in this encounter Miscellaneous Notes * Plan of Care - Melvina Brooks RN - 06/11/2023 4:27 PM EDT Patient discharge to home. IV removed, site benign. My assessment remains unchanged from my previous assessment. RN Discussed pain management with patient, pain tolerable. Patient medicated prior to discharge. Patient has all belongings and supplies needed. Patient received After Visit Summary and p rescriptions. These were reviewed, patient verbalizes understanding of AVS. All questions answered.Patient encouraged to call with questions or concerns. Patient discharged to home with family. Melvina Brooks RN * Initial Assessments - Jose Ramon Greene MSW - 06/11/2023 11:58 AM EDT Office of Care Management Initial Assessment ADARSH Avelar reviewed record and discussed patient with Care Team. Source of Information: Team, bedside nurse, medical record, and Patient Introduced self/reviewed role; services accepted. Admitted From: Home Reason for Hospitalization: cervical surgery Covid Vaccination Status: Last COVID test: Lab Results Component Value Date COVID19 Not Detected 07/07/2021 [id number] Not Detected 07/04/2021 Past medical History: Past Medical History: Diagnosis Date s/p L4-5 decompression, PSIF Dr. Wilkins 01/04/2020 Added automatically from request for surgery [id number] Transfusion history 2002 Hospitalizations Within the Past 30 Days: no previous admission in last 30 days Current Decision-Making Capacity: Self If AD's have not been completed the following surrogate would be Mother/ Lori Forbes surrogate decision maker per [place] surrogate decision making law. (Only good for 180 days) Any patient receiving care in [place] must abide by [place] law. The hierarchy for surrogate decision making is: (a) Patient???s spouse or civil union partner unless there is a divorce proceeding, separation agreement, or restraining order limiting that person???s relationship with the patient. (b) Any adult son or daughter of the patient. (c) Either parent of the patient. (d) Any adult brother or sister of the patient. (e) Any adult grandchild of the patient. (f) Any grandparent of the patient. (g) Any adult aunt, uncle, niece, or nephew of the patient. (h) A close friend of the patient. (i) The agent with financial power of regulatory submissions associate or a conservator appointed in accordance with RSA 464-A. (j) The guardian of the patient???s estate. Advance Care Planning: Attempt Cardiopulmonary Resuscitation - Inpatient <no information> -Advanced Directive: No, declines Current Coping/Education/Information Needs: Therapist/family and mother. Current Functional Ability: Assistive Person, Assistive Equipment and Assistive Person Functional Status Prior to Admission: unable to assess Prior ADLs & IADLs: Independent with all ADLs & IADLs Home Environment: Others in the home: child(jeremie), minor. Current Living Arrangements: home/apartment/condo. Accessibility Concerns:5 steps into the home. Pt will stay on first floor.. In the last 12 months, was there a time when you were not able to pay the mortgage or rent on time?: No In the last 12 months, how many places have you lived?: 1 In the last 12 months, was there a time when you did not have a steady place to sleep or slept in ashelter (including now)?: No In the past 12 months has [employer], oil, or water [employer] threatened to shut off services in your home?: No Within the past 12 months, you worried that your food would run out before you got the money to buymore.: Sometimes true Within the past 12 months, the food you bought just didn't last and you didn't have money to get more.: Never true Resource / Environmental Concerns: Resource/Environmental Concerns: none Home Accessibility Concerns: stairs to enter home In the past 12 months, has lack of transportation kept you from medical appointments or from getting medications?: No In the past 12 months, has lack of transportation kept you from meetings, work, or from getting things needed for daily living?: No Current DME: cane - straight, crutches, walker - rolling, shower chair Home Address confirmed as: [facility] [address] [address] Social & Family Supports: All names listed below confirmed with patient as current and correct Extended Emergency Contact Information Primary Emergency Contact: Minoo Forbes Mobile Relation: Mother Secondary Emergency Contact: Juan Almazan [facility] Mobile Relation: Friend Current Care Provided by: self Provides Primary Care For: child(jeremie) Caregiver if needed: parent(s), significant other Quality of Family relationships: unable to assess Community Resources being provided currently: none Behavioral Health History: Anxiety, depression with past SI. Pt does see a counselor/therapist. Pt states she is not experiencing SI and has support. Substance Use/Abuse confirmed: Social History Tobacco Use Smoking Status Never Smokeless Tobacco Never Tobacco Comments vapes but not nicotine In the past year have you used an illegal drug or used a prescription medication for non-medical reasons?: No 0 No problems reported 1-2 Low level 3-5 Moderate level 6-8 Substantial level 9- 10 Severe level In the past year have you had 4 or more drinks a day containing alcohol?: No 0 to 7 points: Low risk 8 to 15 points: Medium risk 16 to 19 points: High risk 20 to 40 points: Addiction likely Other Pertinent/Service Specific Information: Pt states, in the past she has had SI. She has been seeing a therapist/counselor and has a lot of support. No SI noted from pt. Pt has not worked since Apr 23, 2023. She has applied for SSDI through [place]. She is awaiting a response. Health/Prescription Coverage: Primary Insurance: [place] Payor: [place] / Plan: [place] PRIMARY CARE PLUS / Product Type: *No Product type* / Secondary Insurance: N/A ; Prescription Coverage: Yes Preferred Pharmacy: [id number] - [place], [place] - [address] [facility] [address] [address] [id number] - [place], [place] - [address] [facility] [address] [facility] [facility] [id number] [id number] - [place], [place] - [address] [address] Status: Patient is a : No Primary Care Provider confirmed: Lilian Julien, SELVIN [phone] Patient/Caregiver Goals of Treatment: Return home Potential Needs for Transition of Care: none Agency Referrals: pending hospital course/tbd Transportation: no concerns Transportation Anticipated: family or friend will provide Concerns to be Addressed: denies needs/concerns at this time Assessment: Patient is admitted to Ortho service for s/p cervical spinal fusion. Pt is a 37 year old woman who lives with her two children 13 and 15 and her boyfriend, Juan. Currently 15 year old is on disability. Pt is not currently employed and currently is on [employer], Shortlist. Pt has applied for [facility] and is awaiting a decision. Pt does not have an AD on file. SDM: mother/Minoo Forbes @ [phone]. Pt lives in a two story home. There are five steps into the home and 12 to the second floor. Pt states she has carpet on the stairs and feels safer then wooden steps. Pt will stay on the first floor.DME in the home: crutches, walkers, cane and shower chair. Pt plans to be dc'd today. Mother will transport. Pt awaiting dc paperwork. Pt has no questions or concerns for MANAGER APPLE at this time. MANAGER APPLE will f/u with CM. Plan: A member of the Care Management team will continue to monitor progress, follow for continuityof care and assist with transition of care planning. ADARSH Khoury Trauma Client Development Manager Office of Care Management [phone] * Initial Assessments - Mae Quiles OT - 06/11/2023 10:16 AM EDT Occupational Therapy Evaluation Patient profile: Bessie Lvey is a 37 yrs female admitted on 06/10/2023 9:39 AM. Pt s/p C5-T1 posterior decompression/fusion. Past medical history: Past Medical History: Diagnosis Date s/p L4-5 decompression, PSIF Dr. Wilkins 01/04/2020 Added automatically from request for surgery [id number] Transfusion history 2002 Past surgical history: Past Surgical History: Procedure Laterality Date CARDIAC SURGERY ASD repair at [facility] 2002 PRO ALLOGRAFT FOR SPINE SURGERY ONLY MORSELIZED Bilateral 01/05/2022 ALLOGRAFT FOR SPINE SURGERY ONLY; MORSELIZED (WRVU *) performed by Charly Wilkins MD at [facility] OR PRO ARTHRODESIS COMBINED TECHNIQUE 1 INTERSPACE LUMBAR Bilateral 01/05/2022 ARTHRODESIS, COMB. POST OR POSTEROLAT W/LAMI &/OR DISC SINGLE INTERSPACE; LUMBAR (WRVU 27.75) performed by Charly Wilkins MD at [facility] OR PRO ARTHRODESIS POSTERIOR/PSTLAT TECHNIQUE 1 INTERSPACE LUMBAR Bilateral 01/05/2022 ARTHRODESIS, LUMBAR SPINE, SINGLE INTERSPACE (WRVU 23.53) [facility] AUTOGRAFT SPINE SURGERY LOCAL FROM SAME INCISION Bilateral 01/05/2022 AUTOGRAFT FOR SPINE SURGERY ONLY, SAME INCISION (WRVU *) performed by Charly Wilkins MD at [facility] OR PRO INJECTION DX/THER SBST INTRLMNR LMBR/SAC W/IMG GDN Midline 05/18/2021 INJECTION, EPIDURAL, LUMBAR OR SACRAL (CAUDAL), WITH IMAGING GUIDANCE (WRVU 1.8) performed by Sarah Munguia MD at [facility] PA[facility] MGMT MSO PRO LAMINEC/FACETECT/FORAMIN, LUMBAR 1 SEG Bilateral 01/05/2022 LAMINECTOMY, FACETECTOMY & FORAMINOTOMY,LUMBAR, ONE LEVEL (WRVU 15.37) performed by Charly Wilkins MD at [facility] OR PRO POSTERIOR NON-SEGMENTAL INSTRUMENTATION Bilateral 01/05/2022 POSTERIOR SPINAL NON-SEGMENTAL INST.(ONE SPACE) (WRVU 12.52) performed by Charly Wilkins MD at [facility] OR PRO STEROTACTIC CPTR ASSTD PX SPINAL Bilateral 01/05/2022 STEREOTACTIC COMPUTER-ASSTD NAVIGATIONAL SPINAL (WRVU 3.75) performed by Charly Wilkins MD at [facility] OR Subjective: Pt received semi-fowlers in bed with [place] C-collar donned. Pt agreeable to OT evaluation this date. Pt A&Ox4, on RA, and VSS. I had to do this when I had my other back issues. Handoff given to Melvina Ventura RN including pt's location, pain, and pertinent information at cessation of session. Pain: Pre/post: 7/10, Neck and shoulders, RUE worse than LUE Social History: Home Setup: Pt lives in a two story home with 8 total steps to enter with R rail. Pt has a full FOS to access primary bedroom, first floor has full bathroom with tub shower, shower chair, and grab bar. Pt has a standard commode with a tub vs counter to use as leverage. Social support: Pt lives with her boyfriend and two teenage daughters. Pt's boyfriend works department coordinator, when he is at work she report she can call her neighbor to come help. DME: RW Rolator Shower chair Tub grab bar Crutches ?maybe bedside commode Baseline ADL/Mobility: Pt is independent at baseline without DME/AD and drives. 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 Precautions/Special Considerations: Falls, Spinal, [place] c-collar, regular diet Objective: Seen today for OT evaluation and education re: ADL/IADL Vital signs: Pt on RA, reports no dizziness, lightheadedness, and VSS Cognitive Status/Behavior Behavior / Mood: alert and cooperative Alert and oriented to: person, place, time, and situation Follows commands: multi step and 100% of the time Attention: WFL Safety awareness: WFL talkative Vision WFL, Pt reports at baseline Upper Extremity Assessment: Hand dominance: right Fine Motor Skills/Coordination: tip to tip with slight RUE tremors noted Upper Extremity Impairments: Tremors, impaired sensation, impaired motor control RUE>LUE Upper Extremity Sensation: Impaired LT bilaterally, RUEdigits 1-2 worse Range of Motion: BUE shoulder flexion ~80* AROM Upper Extremity Strength: BUE grossly 4/5 within given ROM Muscle Tone: WFL Activities of Daily Living: Self-feeding: independent Hygiene/grooming: Washing hands at sink- supervision Lower Body Dressing: Socks- supervision, figure 4 sitting Toileting: Transfer: supervision, stand step, standard commode Hygiene: supervision Functional Mobility: Supine to sit: supervision, HOB ~30*, log roll Sit to stand: supervision, 1x with RW, otherwise without DME Ambulation: 100' SBA progressing to supervision Recliner chair Transfer: stand step, supervision Stand to sit: supervision Balance: Static seated: WFL Dynamic seated: WFL Static standing: WFL Dynamic standing: WFL Education: patient have been educated on Role of occupational therapy/rehabilitation, Transfers, Assistive device/technique, ADL, Positioning, Safety, Precautions/Protocol, Brace Management, Functional Mobility, Activity pacing/Energy conservation, Home Program, Home Management, Balance, Recommendat ions, and Discharge planning and verbalizes and demonstrates understanding. Assessment: Pt has been seen for occupational therapy evaluation. Bessie Levy presents with the following performance skill deficits and client factors: increased pain, decreased flexibility / ROM, decreased strength, precautions / bracing, and compromised mobility status. These performance deficits have led to activity limitations and participation restrictions in the following areas of occupation: dressing, bathing, transfers / mobility, home management, work, leisure, driving, and community mobility. Pt completed dressing, toileting, and functional mobility while adhering to spinal precautions. If patient remains in hospital, pt will benefit from 1-2 more sessions of acute OT to address performance deficits and maximize participation and independence with occupatio ns of daily living. Anticipate pt to discharge home. Pt to benefit from OPOT. DME Needs: none. Acute OT will follow. Equipment needs at discharge: none Anticipated Discharge Disposition: Home with daily check in, home with OPOT Other Recommendations: Utilize upright chair position using bed features or transfer to recliner chair as appropriate withSBA, ambulate as tolerated Encourage participation in ADL's by providing set up A on tray table and physical assist only as needed Promote family education with brace management when it is being performed Other Recommendations: No other consults recommended at this time. Goals: To be achieved by 06/18/23. Pt/caregiver will verbalize and demonstrate all aspects of [place] c-collar care. Pt will complete 3 grooming tasks standing at sink with supervision while adhering to spinal precautions. Pt will verbalize safe plan for bathing while adhering to spinal precautions. Pt will complete BUE HEP to increase functional use of BUEs for ADL tasks. Plan: OT: Therapy Frequency (OT): 1-2 more times if still in hospital Total Minutes, Occupational Therapy: 38 (1 eval mod [id number]) Planned OT interventions: Role of occupational therapy/rehabilitation, Transfers, Assistive device/technique, Adaptive equipment training, ADL, Exercise, Positioning, Safety, Precautions/Protocol, Brace Management, Activity pacing/Energy conservation, Home Program, Home Management, Recommendations, Family training, and Discharge planning. 2017 OT Evaluation Code Rationale: Diagnosis & Pertinent Co-Morbidities affecting Plan of Care: see PMHx Occupational Profile & Client History: Brief Expanded Extensive x Assessment of Occupational Performance: 1-3 performance deficits x 3-5 performance deficits 5 + performance deficits Clinical Decision Making: Low Moderate High x Clinical decision making of low complexity using standardized patient assessment instrument and measurable assessment of functional outcome. Additional treatment provided: None, initial evaluation only. 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 BaselineMSK exam: Sensation decreased in the hands bilaterally in fingers 2-5, otherwise intact light touch throughout upper and lower extremities. UE 5/ 5 strength deltoid, biceps, triceps, but 4/5 wrist flexors, extensors, and interosseous/manager etl. LE 5/5 strength in hip flexors, quads, hamstrings, EHL, anterior tib, pronation of the ankles. Reflexes symmetric in upper and lower extremities though increased. Positive Delgado's bilaterally Patient with the following active problems: Past Medical History: Diagnosis Date s/p L4-5 decompression, PSIF Dr. Wilkins 01/04/2020 Added automatically from request for surgery [id number] Transfusion history 2002 Past Surgical History: Procedure Laterality Date CARDIAC SURGERY ASD repair at [facility] 2002 PRO ALLOGRAFT FOR SPINE SURGERY ONLY MORSELIZED Bilateral 01/05/2022 ALLOGRAFT FOR SPINE SURGERY ONLY; MORSELIZED (WRVU *) performed by Charly Wilkins MD at [facility] OR PRO ARTHRODESIS COMBINED TECHNIQUE 1 INTERSPACE LUMBAR Bilateral 01/05/2022 ARTHRODESIS, COMB. POST OR POSTEROLAT W/LAMI &/OR DISC SINGLE INTERSPACE; LUMBAR (WRVU 27.75) performed by Charly Wilkins MD at [facility] OR PRO ARTHRODESIS POSTERIOR/PSTLAT TECHNIQUE 1 INTERSPACE LUMBAR Bilateral 01/05/2022 ARTHRODESIS, LUMBAR SPINE, SINGLE INTERSPACE (WRVU 23.53) [facility] AUTOGRAFT SPINE SURGERY LOCAL FROM SAME INCISION Bilateral 01/05/2022 AUTOGRAFT FOR SPINE SURGERY ONLY, SAME INCISION (WRVU *) performed by Charly Wilkins MD at [facility] OR PRO INJECTION DX/THER SBST INTRLMNR LMBR/SAC W/IMG GDN Midline 05/18/2021 INJECTION, EPIDURAL, LUMBAR OR SACRAL (CAUDAL), WITH IMAGING GUIDANCE (WRVU 1.8) performed by Sarah Munguia MD at [facility] MSO PRO LAMINEC/FACETECT/FORAMIN, LUMBAR 1 SEG Bilateral 01/05/2022 LAMINECTOMY, FACETECTOMY & FORAMINOTOMY,LUMBAR, ONE LEVEL (WRVU 15.37) performed by Charly Wilkins MD at [facility] OR PRO POSTERIOR NON-SEGMENTAL INSTRUMENTATION Bilateral 01/05/2022 POSTERIOR SPINAL NON-SEGMENTAL INST.(ONE SPACE) (WRVU 12.52) performed by Charly Wilkins MD at [facility] PRO STEROTACTIC CPTR ASSTD PX SPINAL Bilateral 01/05/2022 STEREOTACTIC COMPUTER-ASSTD NAVIGATIONAL SPINAL (WRVU 3.75) performed by Charly Wilkins MD at [facility] Social History: Lives With: significant other and 2 teenage daughters (ages 13 and 15) Assistance Available at Discharge: intermittent (spouse works and daughters are in-school; pt states her neighbor can check-in intermittently if needed) Home Setup: Multi-level home; Pt's bed/bath is on upper level, bathroom is downstairs; 1 flight of stairs to bedroom with handrail on L side; 5 steps to enter home from outdoors with handrail on R side. Patient must either climb up a small hill to get to stairs or ascend 3 stone steps with handrail. Bathroom Setup: See OT note Baseline Mobility/Prior level of function: Independent with gait and ADLs without an assistive device; Sits to dress due to poor balance standing on one leg. DME: Front Wheeled Walker, Rollator, and Straight Cane Hx Falls in the Last 6 Months: No Drive: Yes, but pt understands she cannot drive post-op. She can arrange rides, if needed, from SO,mother, and ex-. Work: No, pt recently left her job at [employer] in anticipation of surgery. General Appearance: Patient received supine in bed, NAD, talking with OT at bedside. Lines/Drains/Airway: PIV running (RN disconnected prior to mobilizing pt), SUELLEN drain x1, C-collar donned, SCDs Activity Orders: Activity as tolerated PRN; Per Ortho note ATT in collar at all times Diet: Active Orders Diet Regular diet Frequency: Effective Now Number of Occurrences: Until Specified Precautions/Special Considerations: Spine Precautions, C-Collar at all times Mobility and Positioning Recommendations: Recommend 1 person supervision for transfers and ambulation. Maintain C-collar at all times and reinforce log roll technique for OOB and spine precautions. Please encourage up to chair for meal times as able. Pt encouraged to ambulate frequently with staff, getting into the bathroom for toileting and walking out in the mcneil >/= 3 times daily as able. Subjective: Patient pleasant and agreeable to physical therapy evaluation. Can I do it without thewalker? Re: Ambulation. Objective: Pain: Pt with complaints of 7/10 pain at rest and after activity in shoulders, upper arms, and neck. RN made aware. Pain did not interfere with session. Vital Signs: Vital signs stable throughout session; Patient with a brief complaint of nausea while ambulating but it resolved quickly with a standing rest break. She denied dizziness/lightheadedness throughout session. Mental status: Alertness: Alert Orientation: Oriented to all Behavior: calm, self-motivated, and affect appropriate to mood Attention: WFL Follows Commands: multi step Safety Awareness: WFL Memory: no deficits noted Communication: WFL, no deficits Vision: WFL and Patient denies any visual changes or deficits Hearing: WFL Integumentary: grossly intact to visual observation, drains clean, dry, and intact, and post-op dressings clean, dry, and intact Sensation: Pt reports ongoing numbness/tingling in bilateral fingers, worse in L thumb and pointer finger. Musculoskeletal: ROM: WFL except cervical ROM limited by C-Collar Strength: WFL Motor Control/Coordination: Mild intention tremor noted in bilateral hands, L>R. Pt states this is new since surgery. Bed Mobility: Supine to Sit: Standby assist with head of bed elevated, use of bed rail, and cues for sequencing log roll Sit to Supine: NA, pt ended session up in bedside chair Transfers: Sit to Stand: Standby assistance from edge of bed with front wheeled walker Stand to Sit: Standby assistance to bedside chair without AD Toilet Transfer: Standby assistance to/from standard toilet Gait: Distance: 75ft Device Used: None Level of Assist: Standby Gait Mechanics: Slow gait speed with short step height and step length bilaterally. No loss of balance. One brief standing rest break due to c/o nausea which resolved quickly. Stairs: Standby assist to ascend/descend 5 steps (3 short, 2 tall on portable staircase) with unilateral handrail and reciprocal stepping pattern. Patient politely declined the need to practice a full flight before discharge. Educated pt in how to have caregiver support when ascending/descending (behind to ascend, in front to descend) and pt verbalized understanding. Balance: Static Sitting: Independent sitting EOB Dynamic Sitting: Standby assist to scoot to EOB Static Standing: Standby assist without AD Dynamic Standing: Standby assist for gait trek in hallway without AD Education: patient has been educated on Bed mobility, Transfers, Gait , Stairs, Home safety recommendations, Role of Physical Therapy in the acute setting, Discussed discharge plan with patient/family, and Importance of daily mobility in order to prevent immobility related complications such as blood clots and pneumonia. The patient verbalized understanding of all education provided. Additional Interventions: -Patient education for spine precautions (no bending, lifting >5lbs, or twisting) and how to safely mobilize while adhering to precautions. Educated pt on log roll technique for bed mobility and emphasized importance of adhering to precautions until cleared by the physician. Patient verbalized understanding. -Deferred C-Collar training to nursing. Patient status, treatment, and mobility recommendations discussed with nursing. Patient left in the chair, call ignacio in reach, and all needed items in reach at the end of session. Patient status, treatment, and mobility recommendations discussed with nursing at the end of today's session. Communicated with: RN and OT. Assessment: Bessie Levy is a 37 y.o. female seen today for initial physical therapy evaluationPOD #1 s/p posterior cervical decompression instrumented fusion C5-T1. Ms. Levy performed overallfunctional mobility with standby assist and occasional cues for sequencing/safety. She presents slightly below her functional baseline and is most limited by cervical immobilization (c-collar at all times), decreased sensation in bilateral hands, mild post-op deconditioning, and decreased activity tolerance and is therefore functioning below her most recently reported baseline. She walked in the hallway without an assistive device and practiced stair climbing. She denies any concerns with return to the home environment or any DME needs. Recommending pt discharge home with family assist and daily check-in from friends/neighbors. She is ready to go/prepared for discharge from a PT perspective. Will continue to monitor pending hospital progression. Discharge Recommendations: Based on the current findings, Anticipated Discharge Disposition (PT): home with daily check in when medically ready for hospital discharge. Plan: Therapy Frequency (PT): Monitor Consult Recommendations: No other consults recommended at this time. Equipment needs: Patient has all necessary equipment 2016 PT Evaluation Code Rationale: Diagnosis & Pertinent Co-Morbidities, personal factors, and present illness affecting Plan of Care: (see above); Additional personal factors or co- morbidities that impact plan: Total # of Factors: 0 1-2 3+ X Examination of body system impairments, functional limitations and behaviors, and/or participation restrictions. Addressing 1-2 elements Addressing 3 + elements X Addressing 4 + elements Clinical presentation: See assessment above. Stable/Uncomplicated Evolving/Fluctuating Symptoms Unstable/Unpredictable X Clinical decision making of low complexity based on pt's functional performance as outlined in thisevaluation. Time IN / OUT: 09:47-10:15 Total Minutes, Physical Therapy: 28; EvalLuzmaria Osborne, PT DPT She/Her 06/11/2023 Pager: [phone] Physical Therapy Inpatient Rehabilitation Department * Plan of Care - Jillian Carolina RN - 06/11/2023 4:05 AM EDT OUTCOME EVALUATION NOTE: OUTCOME SUMMARY: Pt A&O x 4, 3 liters nasal cannula oxygen. Last BM was on 06/09/23. Pt voiding adequately with omer catheter draining to urine bag. With C-Collar in placed. [place] the pt how to call for help using call light. Pt's pain controlled with scheduled and PRN pain medication. Pt cooperative with care and resting between care. No adverse events this shift. Will help patient reach d/c goals. PLAN MOVING FORWARD: C-collar in placed Pain control Mobilize D/c planning INDIVIDUALIZED FALL PREVENTION: Patient is currently a high risk to Fall. Patient educated on bed/chair alarm, demonstrates proper use of call ignacio and verbalizes understanding of fall preventions implemented. Patient-specific fall risk factors per assessment: [current deficits]: IV Sites, Pain, Medications,Hospital Environment. Recent surgery. Generalized weakness. Assistance [level of assistance required for transfers and ambulation]: Bedrest for now. Supervision [direct monitoring required during toileting and ADLs]: Eyes on per unit protocol when OOB/with ADL's Surveillance [continuous indirect monitoring]: Bed Alarm, Masimo, Purposeful Rounding, Nurse Knowledge Exchange Jillian Carolina RN Problem: Adult Inpatient Plan of Care Goal: Plan of Care Review Outcome: Ongoing (Interventions Implemented as Appropriate) Goal: Patient-Specific Goal (Individualized) Outcome: Ongoing (Interventions Implemented as Appropriate) Goal: Absence of Hospital-Acquired Illness or Injury Outcome: Ongoing (Interventions Implemented as Appropriate) Goal: Optimal Comfort and Wellbeing Outcome: Ongoing (Interventions Implemented as Appropriate) Goal: Readiness for Transition of Care Outcome: Ongoing (Interventions Implemented as Appropriate) * Brief Op Note - Charly Wilkins MD - 06/10/2023 5:41 PM EDT Brief Operative Note Patient Name: Bessie Levy : [id number] MR#: [id number] Case Date: 06/10/2023 Surgeon: Surgeon(s) and Role: * Charly Wilkins MD - Primary * Henry Eubanks MD - Resident - Assisting Preoperative diagnosis: Cervical Myelopathy Stenosis C5-7 Postoperative diagnosis: Cervical Myelopathy Stenosis C5-7 Procedure(s) (LRB): @ARTHRODESIS, POSTERIOR CERVICAL SPINE (WRVU 17.4) (N/A) ARTHRODESIS, POSTERIOR VERTEBRAL EA.ADD. SEGMENT (WRVU 6.43) (N/A) POST SPINAL INSTRUMENTATION, 3-6 VERTEBRA, NON SEGMENTAL (WRVU 12.56) (N/A) LAMINECTOMY, FACETECTOMY & FORAMINOTOMY, CX, ONE LEVEL (WRVU 17.95) (N/A) EA ADD'L VERTEBRAL SEGMENT CERVICAL, THORACIC, LUMBAR (WRVU 3.47) (N/A) AUTOGRAFT FOR SPINE SURGERY ONLY, SAME INCISION (WRVU *) (Bilateral) ALLOGRAFT FOR SPINE SURGERY ONLY; MORSELIZED (WRVU *) (Bilateral) PLACEMENT-CRANIAL TONGS (INCLUDING REMOVAL) (WRVU 4) (N/A) MODIFIER,POSTERIOR CERVICAL INFINITY MEDTRONIC (N/A) MODIFIER,O-ARM, MOR (Bilateral) MODIFIER LEVO HEAD POSITIONER SPINE (Bilateral) MODIFIER,STEALTH 3 W/O KINEVO,CRANI/SPINE ONLY (Bilateral) STEREOTACTIC COMPUTER-ASSTD NAVIGATIONAL SPINAL (WRVU 3.75) (Bilateral) MODIFIER C5 (N/A) MODIFIER C6 (N/A) MODIFIER C7 (N/A) MODIFIER T1 (N/A) Anesthesia: General Findings: c/w disease Complications: none noted Intake: Intraprocedure Crystalloid Total Intake ceFAZolin (Ancef) 2 g vial attach to sodium chloride 0.9% 100 mL Mini-Bag Plus 100.00 mL Total Intake 100 mL Output Urine Output 875 mL Blood Loss 100 mL Total Output 975 mL Net Net Volume -875 mL Transfusion No data found in the last 1 encounters. Output: Estimated Blood Loss: 100 mL Urine Output:: 875 mL Other Output: (no other output recorded) Drains: Subfascial 10 hole Specimens removed during surgery: None Disposition: awakened from anesthesia, extubated and taken to the recovery room in a stable condition, having suffered no apparent untoward event. Condition: doing well without problems Attestation: Case Date: 06/10/2023 I was present and I participated during the entire procedure (does not need to include opening and closing). (Please see the Surgical Encounter Summary for any Implant and Specimen details pertinent to this patient.) Surgical Infection Prevention Bundle Used? N/A * Op Note - Charly Wilkins MD - 06/10/2023 2:53 PM EDT [facility] [place] Patient Name: Bessie Levy : [id number] MR#: [id number] Case Date: 06/10/2023 Surgeon: Surgeon(s) and Role: * Charly Wilkins MD - Primary * Henry Eubanks MD - Resident - Assisting Preoperative diagnosis: Cervical Myelopathy Stenosis C5-7 Postoperative diagnosis: Cervical Myelopathy Stenosis C5-7 Procedure(s) (LRB): @ARTHRODESIS, POSTERIOR CERVICAL SPINE (WRVU 17.4) (N/A) ARTHRODESIS, POSTERIOR VERTEBRAL EA.ADD. SEGMENT (WRVU 6.43) (N/A) POST SPINAL INSTRUMENTATION, 3-6 VERTEBRA, NON SEGMENTAL (WRVU 12.56) (N/A) LAMINECTOMY, FACETECTOMY & FORAMINOTOMY, CX, ONE LEVEL (WRVU 17.95) (N/A) EA ADD'L VERTEBRAL SEGMENT CERVICAL, THORACIC, LUMBAR (WRVU 3.47) (N/A) AUTOGRAFT FOR SPINE SURGERY ONLY, SAME INCISION (WRVU *) (Bilateral) ALLOGRAFT FOR SPINE SURGERY ONLY; MORSELIZED (WRVU *) (Bilateral) PLACEMENT-CRANIAL TONGS (INCLUDING REMOVAL) (WRVU 4) (N/A) MODIFIER,POSTERIOR CERVICAL INFINITY MEDTRONIC (N/A) MODIFIER,O-ARM, MOR (Bilateral) MODIFIER LEVO HEAD POSITIONER SPINE (Bilateral) MODIFIER,STEALTH 3 W/O KINEVO,CRANI/SPINE ONLY (Bilateral) STEREOTACTIC COMPUTER-ASSTD NAVIGATIONAL SPINAL (WRVU 3.75) (Bilateral) MODIFIER C5 (N/A) MODIFIER C6 (N/A) MODIFIER C7 (N/A) MODIFIER T1 (N/A) Anesthesia: General Estimated Blood Loss: 100 mL Specimens removed during surgery: None Drains: 10 holes subfascial drain. Surgical Closure: Primary Closure - skin incision is closed but with open spaces for wires, melvin, drains or other devices Disposition: awakened from anesthesia, extubated and taken to the recovery room in a stable condition, having suffered no apparent untoward event. Condition: doing well without problems (Please see the Surgical Encounter Summary for any Implant and Specimen details pertinent to this patient.) HPI/Surgical Indications: Bessie Levy is 37 y.o. female with history of myelopathy and recent CT scan to confirm no OPLLprior to advancing with surgical planning. Interval History: Bessie Levy presents after CT confirms no evidence of OPLL. Symptoms unchanged from 1 week ago, see full detailed note from Dr. Charly Wilkins. She would like to move forward with our recommended treatment of surgical intervention. Assessment: Cervical myelopathy with UE weakness, dysfunction and myelopathic signs on exam Severe stenosis C5-C6/C6-7 with with increased signal in the spinal cord consistent with myelomalacia History of L4-5 instrumented fusion 01/05/2022 doing well. Surgery performed by Charly Wilkins MD Discussed the risk and benefit of surgical intervention to the posterior approach. Discussed the details using the model as well as imaging. Significant other was present. The risk of infection woundproblems C5 palsy persistent symptoms need for further surgical intervention were discussed. Other risks include Bleeding, infection, nerve injury, spinal cord injury including paralysis, weakness including C5 palsy, numbness, spinal fluid leak, continued worsening neck, or other pain, loss of bowel, bladder, or sexual function, failure to improve, major blood vessel injury, instability, additional surgery, adjacent segment degeneration, stiffness, blindness, blood clots, fusion failure or hardware malposition or failure, bone graft donor site pain, scar formation, stroke, other potential risks and complications including . Consents were signed and reviewed with me personally. Procedure Description: Indications: Cervical spondylitic myelopathy. A patient with persistent symptoms despite conservative options. The risks and benefits of surgical intervention were discussed including spinal fluid leak, nonunion, instrumentation problems, C5 palsy, Paralysis, neurologic decline, infection, need forfurther intervention among others. Procedure: 1. Posterior cervical instrumentation C5-T1. 2. Posterior laminectomy C5-6, C6-7 without facetectomy. 3. Posterior cervical athrodesis C5-T1. 4. Application of local autograft and allograft. 5. Application and removal of Sutherland tongs. 6. Neuro monitoring. Instrumentation: [employer] posterior cervical Patient was brought back to the operative theater. General endotracheal intubation was accomplishedneutral position. Baseline neuro monitoring was obtained. Sutherland tongs were placed. He was then placed prone in a neutral position on a Theodore spine table. His arms were taped to the side. All bony prominences carefully padded. Omer had been placed. He was prepped and draped sterilely in usual fashion. Timeout was performed. Exposure: Incision was made across the appropriate levels. This was taken down to the nuchal ligament. The nuchal ligament was followed to bone. The lamina and lateral masses and or transverse processes were exposed imaging was used for level identification as well as anatomic landmarks. Posterior cervical instrumentation C5-T1: Using a high-speed cortical bur a cortical defect was made in line with the screw placement. Gearshift or drill was advanced down through the bone. Ball tip probe documented cortical integrity. Appropriate size screws were placed. Lateral mass screws were then placed at C5-C6. Pedicle screws were placed at T1. Imaging documented appropriate placement within the limitations of the imaging. Rods were placed bilaterally. Tightened into final position. Posterior laminectomy without facetectomy: The ligamentum was taken down between C5-6 and C6-C7. A trough was made bilaterally using a high-speed cortical bur and irrigation. The lamina of C6, C7 were taken off in 1 piece. Inferior aspect of C5 was domed as well as the superior aspect of T1. The soft tissue was removed and the bone was morselized and used for bone graft. No facetectomy was performed. Width of the decompression was approximately 15 mm. Hemostasis obtained. Posterior cervical arthrodesis C5-T1: The facets at each level were decorticated. Local autograft and cancellous bone was packed densely into the facet joints as well as the lateral aspects of the bone. Closure: A drain was placed deep. Vancomycin was utilized. The wound was closed in layers. Skin: Nylons Sutherland tongs were removed and the collar was replaced. There is no change in neuro monitoring. Attestation: Case Date: 06/10/2023 I was present and I participated during the entire procedure (does not need to include opening and closing). Charly Wilkins MD 06/10/2023 documented in this encounter Plan of Treatment Upcoming Encounters Date Type Department Care Team (Late st Contact Info) Description 12/24/2023 10:00 AM EDT Office [place] [address] Tereso Mohan MD [facility] [place] [address] 12/24/2023 10:30 AM EDT Appointment XRay at [address] [place] [phone] Shelby Aaron APRN [facility] [place] [address] 12/24/2023 11:30 AM EDT Office Visit [facility] [place] [address] Shelby Aaron APRN [facility] [place] [address] documented as of this encounter Procedures Procedure Name Priority Date/Time Associated Diagnosis Comments HEMOGRAM Routine 06/11/2023 2:33 AM EDT DIFFERENTIAL, AUTOMATED Routine 06/11/19 2:33 AM EDT CBC (WITH DIFF) Routine 06/11/2023 2:33 AM EDT BASIC METABOLIC PANEL Routine 06/11/2023 2:33 AM EDT XR CERVICAL SPINE 2 OR 3 VIEWS Routine 06/10/2023 9:05 PM EDT BLOOD GAS ARTERIAL POC Routine 3:18 PM EDT XR CERVICAL SPINE 1 VIEW Routine 06/10/2023 2:53 PM EDT MODIFIER T1 06/10/2023 1:21 PM EDT Cervical spondylosis with myelopathy MODIFIER C7 06/10/2023 1:21 PM EDT Cervical spondylosis with myelopathy MODIFIER C6 06/10/2023 1:21 PM EDT Cervical spondylosis with myelopathy MODIFIER C5 06/10/2023 1:21 PM EDT Cervical spondylosis with myelopathy Sterotactic Cptr Asstd Px Spinal ([id number]) 06/10/2023 1:21 PM EDT Cervical spondylosis with myelopathy MODIFIER,STEALTH 3 W/O KINEVO,CRANI/SPINE ONLY 06/10/2023 1:21 PM EDT Cervical spondylosis with myelopathy MODIFIER LEVO HEAD POSITIONER SPINE 06/10/2023 1:21 PM EDT Cervical spondylosis with myelopathy MODIFIER, O-ARM, MOR 06/10/2023 1:21 PM EDT Cervical spondylosis with myelopathy MODIFIER,POSTERIOR CERVICAL INFINITY MEDTRONIC 06/10/2023 1:21 PM EDT Cervical spondylosis with myelopathy Apply/Remove Cranial Fix Dev ([id number]) 06/10/2023 1:21 PM EDT Cervical spondylosis with myelopathy Allograft For Spine Surgery Only Morselized () 06/10/2023 1:21 PM EDT Cervical spondylosis with myelopathy Autograft Spine Surgery Local From Same Incision ([id number]) 06/10/2023 1:21 PM EDT Cervical spondylosis with myelopathy Mccormick Facetectomy&Foramot 1 Vrt Sgm Ea Addl Sgm ([id number]) 06/10/2023 1:21 PM EDT Cervical spondylosis with myelopathy Laminec/Facetect/Forami n, Cervical 1 Seg ([id number]) 06/10/2023 1:21 PM EDT Cervical spondylosis with myelopathy Posterior Segmental Instrumentation 3-6 Vrt Seg ([id number]) 06/10/2023 1:21 PM EDT Cervical spondylosis with myelopathy Arthrodesis Posterior/Pstlat Technique 1 Interspace Lumbar, Ea Add'L Interspace ([id number]) 06/10/2023 1:21 PM EDT Cervical spondylosis with myelopathy Arthrodesis, Post/Posterolat Tq, Sngle Interspace; Cervical Below C2 Segmnt ([id number]) 06/10/2023 1:21 PM EDT Cervical spondylosis with myelopathy STEROTACTIC COMPUTER-ASSTD NAVIGATIONAL SPINAL Routine 06/10/2023 9:46 AM EDT Cervical spondylosis with myelopathy ADD'L INTERSPACES CX., THORACIC, LUMBAR Routine 06/10/2023 9:46 AM EDT Cervical spondylosis with myelopathy LAMINECTOMY, FACETECTOMY & FORAMINOTOMY, CX, ONE LEVEL Routine 06/10/2023 9:46 AM EDT Cervical spondylosis with myelopathy POST SPINAL INSTRUMENTATION, 3-6 VERTEBRA,NON SEGMENTAL Routine 06/10/2023 9:46 AM EDT Cervical spondylosis with myelopathy ARTHRODESIS,POSTERIOR VERTEBRAL EA.ADD.SEGMENT Routine 06/10/2023 9:46 AM EDT Cervical spondylosis with myelopathy ARTHRODESIS,POSTERIOR CERVICAL SPINE Routine 06/10/2023 9:46 AM EDT Cervical spondylosis with myelopathy AUTOGRAFT FOR SPINE SURGERY ONLY,SAME INCISION Routine 06/10/2023 9:46 AM EDT Cervical spondylosis with myelopathy ALLOGRAFT FOR SPINE SURGERY ONLY;MORSELIZED Routine 06/10/2023 9:46 AM EDT Cervical spondylosis with myelopathy PLACEMENT-CRANIAL TONGS (INCLUDING REMOVAL) Routine 06/10/2023 9:46 AM EDT Cervical spondylosis with myelopathy IMPLANTABLE DEVICES SCAN 06/10/2023 12:00 AM EDT documented in this encounter Results * (ABNORMAL) Differential, Automated (06/11/2023 2:33 AM EDT) Neutrophil % 84.2 % [facility] Neutrophil Absolute 14.13(H) 1.70 - 6.10 x10(3)/mc L [facility] Lymph % 7.2 % [facility] Lymphocytes Abs 1.2 0.9 - 3.2 x10(3)/mc L [facility] Monocyte % 7.6 % [facility] Monocyte Abs 1.3(H) 0.3 - 0.9 x10(3)/mc L [facility] Eos % 0.1 % [facility] Eosinophils Abs 0.0 0.0 - 0.4 x10(3)/mc L [facility] Basophil % 0.2 % [facility] Baso Absolute 0.0 0.0 - 0.1 x10(3)/mc L [facility] Immature Gran % 0.70 % [facility] Comment: Immature granulocytes(IG's)percentage and absolute count will include metamyelocytes, myelocytes, and promyelocytes. Blood smears from CBCs yielding IG's will be scanned manually for concordance. If this scan disagrees with the automated IG or if promyelocytes are noted, a manual differential will be performed. Immature Gran Absolute 0.11(H) 0.00 - 0.04 x10(3)/mc L [facility] Blood 06/11/2023 2:33 AM EDT 06/11/2023 2:46 AM EDT Narrative Resulting Agency Comment Spec In Lab Henry Eubanks MD HEMATOLOGY ORDERABLE S [facility] [place] [address] * (ABNORMAL) Hemogram (06/11/2023 2:33 AM EDT) [facility] White Blood Cell 16.8(H) 4.0 - 9.5 x10(3)/ L [facility] Red Blood Cell 4.32 4.00 - 5.21 x10(6)/ L [facility] Hemoglobin 13.0 11.7 - 15.5 g/dL [facility] Hematocrit 37.8 35.7 - 45.8 % [facility] Mean Cell Volume 87.5 82.6 - 94.4 fL [facility] Mean Cell Hemoglobin 30.1 27.1 - 32.0 pg [facility] Mean Cell Hemoglobin Concentration 34.4 31.7 - 35.0 g/dL [facility] Platelet 296 145 - 357 x10(3)/ L [facility] RDW Standard Deviation 38.5 37.0 - 46.0 fL [facility] RDW coefficient of variation 12.0 11.5 - 14.1 % [facility] Mean Platelet Volume 8.6 7.6 - 12.9 fL [facility] NRBC% auto 0.0 % [facility] NRBC Absolute 0.000 0.000 - 0.000 x10(3)/ L [facility] Blood 06/11/2023 2:33 AM EDT 06/11/2023 2:46 AM EDT Narrative Resulting Agency Comment Spec In Lab Henry Eubanks MD HEMATOLOGY ORDERABLE S [facility] [place] [address] * (ABNORMAL) Basic Metabolic Panel (non-fasting) (06/11/2023 2:33 AM EDT) [facility] Glucose 133 65 - 199 mg/dL [facility] Comment:Diabetes: >=200 mg/d L plus symptoms Blood Urea Nitrogen 8 8 - 18 mg/dL [facility] Creatinine 0.52(L) 0.70 - 1.20 mg/dL [facility] Sodium 135 135 - 145 mmol/L [facility] Potassium 4.1 3.5 - 5.0 mmol/L [facility] Comment: Please note: ??Patients with WBC >100,000 may have falsely elevated Potassium levels. ??For accurate Potassium quantification in these patients send serum separator tube (gold top) for subsequent determinations. ??Contact the Clinical Chemistry Laboratory if there are any questions. Chloride 104 98 - 107 mmol/L [facility] Carbon Dioxide 19(L) 22 - 31 mmol/L [facility] Anion Gap 12 5 - 15 mmol/L [facility] Calcium 8.8 8.5 - 10.5 mg/dL [facility] Est Glomerular Filtration Rate 121 >=60 mL/min/1. 73 m?? [facility] Comment: This patient's estimated GFR was calculated using the 2020 CKD-EPI equation. The estimated GFR can vary from the measured GFR by up to 30% in the absence of rapidly changing kidney function. Assessment of the estimated GFR is not appropriate when creatinine concentrations are rapidly changing. For clinical situations in which a more precise estimate of GFR is necessary, consider alternative methods of GFR estimation such as a 24-hour urine creatinine clearance. Assignment of CKD stage 1-5 for patients with an eGFR near the transition point between stages may be based on clinical assessment of muscle mass and symptoms in addition to eGFR. Blood 06/11/2023 2:33 AM EDT 06/11/2023 2:46 AM EDT Narrative Resulting Agency Comment Spec In Lab Charly Wilkins MD CHEMISTRY ORDERABLES [facility] [place] [address] * XR Cervical Spine 2 or 3 Views (06/10/2023 9:05 PM EDT) Anatomical Region Laterality Modality C-spine N/A Digital Radiogra phy Impressions 06/11/2023 10:27 AM EDT Expected postoperative appearance status post PSIF of C5-T1. Thank you for letting us participate in the care of this patient. ??If you are a health care provider and have any questions regarding this report, please contact the number below. ??For patients who have questions please contact the health reservoir caretaker that requested your imaging first. ? Electronically signed by: Daniel Monge MD, [facility] ([phone]), at 06/11/2023 10:27 AM Narrative 06/11/2023 10:27 AM EDT EXAMINATION: XR CERVICAL SPINE 2 OR 3 VIEWS CLINICAL HISTORY: s/p C5-T1 posterior TECHNIQUE: 2 views of the cervical spine COMPARISON: CT C-spine 05/13/2023 FINDINGS: Cervical spine from C1 to C7 is visualized on the lateral view. status post PSIF of C5-T1 (skipping C6), and dorsal decompression laminectomy. Hardware are intact, and are in expected alignment. ??Expected paraspinal soft tissue swelling. ??Unremarkable prevertebral soft tissue Unchanged cervical spondylosis with multilevel degenerative disease. The lung apex are clear. ??Median sternotomy wires are noted. Procedure Note Daniel Monge MD - 06/11/2023 EXAMINATION: XR CERVICAL SPINE 2 OR 3 VIEWS CLINICAL HISTORY: s/p C5-T1 posterior TECHNIQUE: 2 views of the cervical spine COMPARISON: CT C-spine 05/13/2023 FINDINGS: Cervical spine from C1 to C7 is visualized on the lateral view. status post PSIF of C5-T1 (skipping C6), and dorsal decompressionlaminectomy. Hardware are intact, and are in expected alignment. Expected paraspinalsoft tissue swelling. Unremarkable prevertebral soft tissue Unchanged cervical spondylosis with multilevel degenerative disease. The lung apex are clear. Median sternotomy wires are noted. IMPRESSION Expected postoperative appearance status post PSIF of C5-T1. Thank you for letting us participate in the care of this patient. If youare a health care provider and have any questions regarding this report,please contact the number below. For patients who have questions please contactthe health reservoir caretaker that requested your imaging first. Electronically signed by: Daniel Monge MD, [facility]([phone]), at 06/11/2023 10:27 AM Charly Wilkins MD IMG DX ORDERABLES * (ABNORMAL) BLOOD GAS 2 ARTERIAL (06/10/2023 3:18 PM EDT) pH, Arterial 7.40 7.35 - 7.45 [facility] PCO2, Arterial 27(L) 35 - 45 mmHg [facility] PO2, Arterial 333(H) 85 - 104 mmHg [facility] Bicarbonate, Arterial 16.2(L) 20.0 - 26.0 mmol/L [facility] Base Excess, Arterial -8.9(L) -3.0 - 3.0 mmol/L [facility] Hgb Blood Gas 13.1 11.7 - 15.5 g/dL [facility] Oxyhemoglobin, Arterial 98.8(H) 94.0 - 97.0 % [facility] Carboxyhemoglob in, Arterial 0.4 % [facility] Comment: Nonsmokers: 0.5-1.5% COHB Smokers: Variable, but usually less than 10% Toxic: 20-30% COHB Lethal: Greater than 60% COHB Methemoglobin, Arterial 0.3 <=1.5 % [facility] Na Whole Blood 137 135 - 145 mmol/L [facility] K Whole Blood 3.5 3.5 - 5.0 mmol/L [facility] Comment: Please note: Patients with WBC >100,000 may have falsely elevated Potassium levels. Contact the Clinical Chemistry Laboratory if there are any questions. ICa Whole Blood 1.16 1.15 - 1.33 mmol/L [facility] Comment: Note: ??Total bilirubin higher than 20 mg/dL may lead to falsely low ionized calcium. CL Whole Blood 109(H) 98 - 107 mmol/L [facility] Gluc Whole Bld 78 65 - 199 mg/dL [facility] Comment:Diabetes: >=200 mg/d L plus symptoms. Lactate WB 1.4 0.5 - 2.2 mmol/L [facility] FIO2 Art 83 % [facility] Flow Art 2.0 LPM [facility] PF Ratio Art 401 [facility] Temp Art 36.0 Celsius [facility] Blood 06/10/2023 3:18 PM EDT 06/10/2023 3:18 PM EDT Charly Wilkins MD POINT OF CARE TEST O RDERABLES [facility] [place] [address] * XR Cervical Spine 1 View (06/10/2023 2:53 PM EDT) Anatomical Region Laterality Modality C-spine N/A Digital Radiogra phy Impressions 06/11/2023 8:18 AM EDT As above. Thank you for letting us participate in the care of this patient. ??If you are a health care provider and have any questions regarding this report, please contact the number below. ??For patients who have questions please contact the health reservoir caretaker that requested your imaging first. ? Electronically signed by: Daniel Monge MD, [facility] ([phone]), at 06/11/2023 8:18 AM Narrative 06/11/2023 8:18 AM EDT EXAMINATION: XR CERVICAL SPINE 1 VIEW CLINICAL HISTORY: intraoperative level confirmation TECHNIQUE: 1 views of the cervical spine COMPARISON: Radiograph C-spine 04/30/2023 FINDINGS: A single lateral view of the cervical spine for intraoperative level confirmation. ??The level of C1 to C5 is visualized. ??A metallic localizer device with tip at the level of C4. ??Cervical spondylosis is unchanged including mild anterolisthesis of C4 on C5. ??Paraspinous and prevertebral soft tissues are within normal limits. Endotracheal tube and esophageal temperature probe are partially included. Procedure Note Daniel Monge MD - 06/11/2023 EXAMINATION: XR CERVICAL SPINE 1 VIEW CLINICAL HISTORY: intraoperative level confirmation TECHNIQUE: 1 views of the cervical spine COMPARISON: Radiograph C-spine 04/30/2023 FINDINGS: A single lateral view of the cervical spine for intraoperative level confirmation. The level of C1 to C5 is visualized. A metallic localizerdevice with tip at the level of C4. Cervical spondylosis is unchanged includingmild anterolisthesis of C4 on C5. Paraspinous and prevertebral soft tissuesare within normal limits. Endotracheal tube and esophageal temperature probe are partiallyincluded. IMPRESSION As above. Thank you for letting us participate in the care of this patient. If youare a health care provider and have any questions regarding this report,please contact the number below. For patients who have questions please contactthe health reservoir caretaker that requested your imaging first. Electronically signed by: Daniel Monge MD, [facility]([phone]), at 06/11/2023 8:18 AM Charly Wilkins MD IMG DX ORDERABLES * SCAN DOC: IMPLANTABLE DEVICES (06/10/2023 12:00 AM EDT) Narrative 06/10/2023 12:00 AM EDT Ordered by an unspecified provider. Scanning Provider MEDIA MGR SCAN EXT O RDR/RSLT * Type and Screen Future Surgery, [facility] [place] (05/21/2023 1:37 PM EDT) [facility] Patient BB History Found [facility] Expires at [id number] on: 06/13/2023 [facility] Ab Screen Interp Negative [facility] Blood 05/21/2023 1:37 PM EDT 05/21/2023 1:37 PM EDT Narrative Resulting Agency Comment Spec In Lab Charly Wilkins MD BLOOD BANK LAB ORDER [place] [facility] [place] [address] documented in this encounter Visit Diagnoses Diagnosis S/P cervical spinal fusion- Primary Arthrodesis status Osteoarthritis of cervical spine with myelopathy Cervical spondylosis with myelopathy Osteoarthritis of cervical spine with myelopathy s/p posterior C5-T1 fusion, Dr. Wilkins, 06/10/23 documented in this encounter Admitting Diagnoses Diagnosis S/P cervical spinal fusion Arthrodesis status documented in this encounter Administered Medications Inactive Administered Medications - up to 3 most recent administrations Medication Order MAR Action Action Date Dose Rate Site acetaminophen (Tylenol) tablet 975 mg 975 mg (rounded from 1,000 mg), Oral, ONCE, 1 dose, On Sat06/10/23 at 1015, Maximum dose of acetaminophen is 4000 mg from all sources in 24 hours. When ordered for pain, acetaminophen should be given even when other ordered pain medications are indicated. , Day of Surgery (Day of Procedure), Routine Given 06/10/2023 10:06 AM EDT 975 mg acetaminophen (Tylenol) tablet 975 mg 975 mg, Oral, EVERY 8 HOURS SCHEDULED, First dose on Sat06/10/23 at 2200, Until Discontinued, Maximum dose of acetaminophen is 4,000 mg from all sources in 24 hours. When ordered for pain, acetaminophen should be given even when other ordered pain medications are indicated., Routine Given 06/11/2023 4:58 AM EDT 975 mg Given 06/10/2023 10:15 PM EDT 975 mg acetaminophen (Tylenol) tablet 975 mg 975 mg, Oral, EVERY 6 HOURS SCHEDULED, First dose (after last modification) on Sat06/11/23 at 1200, Until Discontinued, Maximum dose of acetaminophen is 4,000 mg from all sources in 24 hours. When ordered for pain, acetaminophen should be given even when other ordered pain medications are indicated., Routine Given 06/11/2023 11:36 AM EDT 975 mg ARIPiprazole (Abilify) tablet 2 mg 2 mg, Oral, DAILY, First dose on Sat06/11/23 at 0900, Until Discontinued, Routine Given 06/11/2023 10:32 AM EDT 2 mg ceFAZolin (Ancef) 1 g vial attached to sodium chloride 0.9% 50 mL Mini-Bag Plus 1 g, Intravenous, EVERY 8 HOURS, 3 doses, First dose on Sat06/10/23 at 1845, Last dose on Sat06/11/23 at 1045, Administer over 30 Minutes, Adjust to 4 hours from intraoperative dose. * Beta-lactam based antibiotics (eg. Ampicillin, ceFAZolin, Aztreonam) should be administered within 4 hours of the preceding intraoperative dose. * Vancomycin, Fluoroquinolones, Clindamycin, Gentamicin, and metroNIDAZOLE should be administered within 8 hours of the preceding intraoperative dose., Recovery (Recovery-Hospital Unit), Indication for (Active or Suspected): Prophylaxis New Bag 06/11/2023 10:26 AM EDT 1 g 100 mL /hr New Bag 06/11/2023 1:48 AM EDT 1 g 100 mL/hr New Bag 06/10/2023 7:40 PM EDT 1 g 100 mL/hr cloBAZam (Onfi) tablet 10 mg 10 mg, Oral, EVERY MORNING, First dose on Sat06/11/23 at 0700, Until Discontinued, Routine Given 06/11/2023 7:00 AM EDT 10 mg cloBAZam (Onfi) tablet 20 mg 20 mg, Oral, NIGHTLY, First dose on Sat06/10/23 at 2100, Until Discontinued, Routine Given 06/10/2023 10:33 PM EDT 20 mg cyclobenzaprine (Flexeril) tablet 5 mg 5 mg, Oral, EVERY 8 HOURS PRN, Starting on Sat06/11/23 at 0811, Until Sat06/11/23 at 1833, Muscle spasms, Routine droNABinol (Marinol) capsule 5 mg 5 mg, Oral, 2 TIMES DAILY, First dose on Sat06/10/23 at 2100, Until Discontinued, Routine Given 06/11/2023 10:27 AM EDT 5 mg Given 06/10/2023 10:33 PM EDT 5 mg famotidine (Pepcid) tablet 20 mg 20 mg, Oral, 2 TIMES DAILY, First dose on Sat06/10/23 at 2215, Until Discontinued, Routine Given 06/11/2023 10:27 AM EDT 20 mg Given 06/10/2023 10:19 PM EDT 20 mg gabapentin (Neurontin) capsule 300 mg 300 mg, Oral, 2 TIMES DAILY, First dose on Sat06/10/23 at 2100, Until Discontinued, Routine Given 06/11/2023 10:26 AM EDT 300 mg Given 06/10/2023 10:15 PM EDT 300 mg HYDROmorphone (Dilaudid) (2 mg/mL) multi-dose injection solution 0.4 mg 0.4 mg, Intravenous, EVERY 10 MIN PRN, Starting on Sat06/10/23 at 1741, Until Sat06/10/23 at 2043, Pain, For Mild to Moderate Pain (1-5 out of 10), Hold for respiratory rate less than 10 per minute. Maximum dose 4 mg over one hour including administrations in the OR. If multiple pain medications are ordered, start with HYDROmorphone or morphine and use fentaNYL for breakthrough pain., PACU Recovery, Routine Given 06/10/2023 8:11 PM EDT 0.4 mg Given 06/10/2023 7:49 PM EDT 0.4 mg Given 06/10/2023 6:41 PM EDT 0.4 mg lidocaine (Lidoderm) 5% patch 1 patch 1 patch, Transdermal, Administer over 12 Hours, EVERY 24 HOURS, First dose on Sat06/11/23 at 0900, Until Discontinued, Apply patch(es) for 12 hours, and then remove for 12 hours., Routine Patch Applied 06/11/2023 10:32 AM EDT 1 patch 06- Back Upper (Right) lisinopriL (Zestril) tablet 10 mg 10 mg, Oral, EVERY MORNING, First dose on Sat06/11/23 at 0700, Until Discontinued, Hold for systolic blood pressure less than 120 , Routine Given 06/11/2023 6:23 AM EDT 10 mg magnesium oxide (Mag-Ox) tablet 200 mg 200 mg, Oral, 2 TIMES DAILY, First dose on Sat06/10/23 at 2215, Until Discontinued Given 06/11/2023 10:27 AM EDT 200 mg Given 06/10/2023 10:15 PM EDT 200 mg oxyCODONE (Roxicodone) tablet 10 mg 10 mg, Oral, EVERY 4 HOURS PRN, Starting on Sat06/10/23 at 1823, Until Sat06/11/23 at 1833, Pain, moderate pain (4-6), For moderate pain (4-6). Do not exceed 15 mg in 4 hours. If pain not relieved, call provider., Routine Given 06/10/2023 8:28 PM EDT 10 mg oxyCODONE (Roxicodone) tablet 15 mg 15 mg, Oral, EVERY 4 HOURS PRN, Starting on Sat06/10/23 at 1823, Until Sat06/11/23 at 1833, Pain, severe pain (7-10), For severe pain (7-10). Do not exceed 15 mg in 4 hours. If pain not relieved, call provider., Routine Given 06/11/2023 4:17 PM EDT 1 5 mg Given 06/11/2023 10:26 AM EDT 15 mg Given 06/11/2023 6:23 AM EDT 15 mg oxyCODONE (Roxicodone) tablet 5 mg 5 mg, Oral, EVERY 4 HOURS PRN, Starting on Sat06/10/23 at 1823, Until Sat06/11/23 at 1833, Pain, mild pain (1-3), For mild pain (1-3). Do not exceed 15 mg in 4 hours. If pain not relieved, call provider., Routine senna-docusate (Pericolace) 8.6-50 mg per tablet 2 tablet 2 tablet, Oral, 2 TIMES DAILY, First dose on Sat06/10/23 at 2215, Until Discontinued, Routine Given 06/11/2023 10:27 AM EDT 2 tablets sertraline (Zoloft) tablet 100 mg 100 mg, Oral, DAILY, First dose on Sat06/11/23 at 0900, Until Discontinued, Routine Given 06/11/2023 10:26 AM EDT 100 mg sodium chloride 0.9 % (flush) (BD PosiFlush Normal Saline 0.9) flush 5 mL 5 mL, Intravenous, 2 TIMES DAILY, First dose on Sat06/10/23 at 2215, Until Discontinued, Recovery (Recovery-Hospital Unit), Routine Given 06/10/2023 10:15 PM EDT 5 mLs sodium chloride 0.9% infusion 1,000 mL, at 100 mL/hr, Intravenous, CONTINUOUS, Starting on Sat06/10/23 at 1845, Until Sat06/11/23 at 1833, Recovery (Recovery-Hospital Unit) Restarted 06/11/2023 10:30 AM EDT 100 m L/hr New Bag 06/11/2023 5:14 AM EDT 1,000 mLs 100 mL/hr New Bag 06/10/2023 7:13 PM EDT 1,000 mLs 100 mL/hr documented in this encounter Active and Recently Administered Medications Times are shown in EDT. Scheduled Medication Order 06/09/2023 06/10/2023 06/11/2023 acetaminophen (Tylenol) tablet 975 mg (COMPLETED) 975 mg (rounded from 1,000 mg), Oral, ONCE, 1 dose, On Sat06/10/23 at 1015, Maximum dose of acetaminophen is 4000 mg from all sources in 24 hours. When ordered for pain, acetaminophen should be given even when other ordered pain medications are indicated. , Day of Surgery (Day of Procedure), Routine 1006 (Given - Provider: Guy Barnard RN) acetaminophen (Tylenol) tablet 975 mg (CANCELED) 975 mg, Oral, EVERY 8 HOURS SCHEDULED, First dose on Sat06/10/23 at 2200, Until Discontinued, Maximum dose of acetaminophen is 4,000 mg from all sources in 24 hours. When ordered for pain, acetaminophen should be given even when other ordered pain medications are indicated., Routine 2215 (Given - Provider: Andrew Deras RN) 0458 (Given - Provider: Jillian Carolina RN)0600 (Not Given - Provider: Jillian Carolina RN - Reason: See comment - Comment: dose already given) acetaminophen (Tylenol) tablet 975 mg 975 mg, Oral, EVERY 6 HOURS SCHEDULED, First dose (after last modification) on Sat06/11/23 at 1200, Until Discontinued, Maximum dose of acetaminophen is 4,000 mg from all sources in 24 hours. When ordered for pain, acetaminophen should be given even when other ordered pain medications are indicated., Routine 1136 (Given - Provid er: Sana Yost) ARIPiprazole (Abilify) tablet 2 mg 2 mg, Oral, DAILY, First dose on Sat06/11/23 at 0900, Until Discontinued, Routine 1032 (Given - Provid er: Sana Yost) ceFAZolin (Ancef) 1 g vial attached to sodium chloride 0.9% 50 mL Mini-Bag Plus (COMPLETED) 1 g, Intravenous, EVERY 8 HOURS, 3 doses, First dose on Sat06/10/23 at 1845, Last dose on Sat06/11/23 at 1045, Administer over 30 Minutes, Adjust to 4 hours from intraoperative dose. * Beta-lactam based antibiotics (eg. Ampicillin, ceFAZolin, Aztreonam) should be administered within 4 hours of the preceding intraoperative dose. * Vancomycin, Fluoroquinolones, Clindamycin, Gentamicin, and metroNIDAZOLE should be administered within 8 hours of the preceding intraoperative dose., Recovery (Recovery-Hospital Unit), Indication for (Active or Suspected): Prophylaxis 194 (New Bag - Provider: Domi Carrillo RN)2009 (Stopped - Provider: Domi Carrillo RN) 0148 (New Bag - Provider: Jillian Carolina, ARLETTE)0218 (Stopped - Provider: Jillian Carolina, ARLETTE)1026 (New Bag - Provider: Sana Yost)1056 (Stopped - Provider: Melvina Brooks RN) ceFAZolin (Ancef) 2 g vial attach to sodium chloride 0.9% 100 mL Mini-Bag Plus (COMPLETED) 2 g, Intravenous, EVERY 4 HOURS, 1 dose, First dose on Sat06/10/23 at 1015, Administer over 30 Minutes, Redose after 4 hours., Day of Surgery (Day of Procedure), Indication for (Active or Suspected): Prophylaxis 1421 (New Bag - Provider: Lamonte Hartley) cloBAZam (Onfi) tablet 10 mg 10 mg, Oral, EVERY MORNING, First dose on Sat06/11/23 at 0700, Until Discontinued, Routine 0700 (Given - Provid er: Jillian Carolina RN - Comment: verified Solange Pereyra RN) cloBAZam (Onfi) tablet 20 mg 20 mg, Oral, NIGHTLY, First dose on Sat06/10/23 at 2100, Until Discontinued, Routine 223 (Given - Provider: Andrew Deras RN) droNABinol (Marinol) capsule 5 mg 5 mg, Oral, 2 TIMES DAILY, First dose on Sat06/10/23 at 2100, Until Discontinued, Routine 223 (Given - Provider: Andrew Deras RN) 1027 (Given - Provider: Sana Yost) famotidine (Pepcid) tablet 20 mg 20 mg, Oral, 2 TIMES DAILY, First dose on Sat06/10/23 at 2215, Until Discontinued, Routine 221 (Given - Provider: Andrew Deras RN) 1027 (Given - Provider: Sana Yost) gabapentin (Neurontin) capsule 300 mg 300 mg, Oral, 2 TIMES DAILY, First dose on Sat06/10/23 at 2100, Until Discontinued, Routine 221 (Given - Provider: Andrew Deras RN) 1026 (Given - Provider: Sana Yost) lidocaine (Lidoderm) 5% patch 1 patch 1 patch, Transdermal, Administer over 12 Hours, EVERY 24 HOURS, First dose on Sat06/11/23 at 0900, Until Discontinued, Apply patch(es) for 12 hours, and then remove for 12 hours., Routine 1032 (Patch Applied - Provider: Sana Yost)1633 (Due: Patch Removed - Provider: Automatic Discharge Provider - Comment: Time automatically adjusted from order being discontinued) lisinopriL (Zestril) tablet 10 mg 10 mg, Oral, EVERY MORNING, First dose on Sat06/11/23 at 0700, Until Discontinued, Hold for systolic blood pressure less than 120 , Routine 0623 (Given - Provid er: Jillian Carolina RN) magnesium oxide (Mag-Ox) tablet 200 mg 200 mg, Oral, 2 TIMES DAILY, First dose on Sat06/10/23 at 2215, Until Discontinued 221 (Given - Provider: Andrew Deras, ARLETTE) 1027 (Given - Provider: Sana Yost) polyethylene glycoL (Miralax) packet 17 g 17 g, Oral, 2 TIMES DAILY, First dose on Sat06/10/23 at 2215, Until Discontinued, Routine 2214 (Not Given - Provider: Andrew Deras RN - Reason: Patient/family refused) 0900 (Not Given - Provider: Sana Yost - Reason: Patient/family refused) senna-docusate (Pericolace) 8.6-50 mg per tablet 2 tablet 2 tablet, Oral, 2 TIMES DAILY, First dose on Sat06/10/23 at 2215, Until Discontinued, Routine 2214 (Not Given - Provider: Andrew Deras RN - Reason: Patient/family refused) 1027 (Given - Provider: Sana Yost) sertraline (Zoloft) tablet 100 mg 100 mg, Oral, DAILY, First dose on Sat06/11/23 at 0900, Until Discontinued, Routine 1026 (Given - Provid er: Sana Yost) sodium chloride 0.9 % (flush) (BD PosiFlush Normal Saline 0.9) flush 5 mL 5 mL, Intravenous, 2 TIMES DAILY, First dose on Sat06/10/23 at 2215, Until Discontinued, Recovery (Recovery-Hospital Unit), Routine 2214 (Given - Provider: Andrew Deras, ARLETTE) 0900 (Not Given - Provider: Sana Yost - Reason: See comment - Comment: Infusing) tranexamic acid (Cyklokapron) (100 mg/mL) infusion 1,334 mg (COMPLETED) 1,334 mg (rounded from 1,333.5 mg = 15 mg/kg/dose ? 88.9 kg), Intravenous, ONCE, 1 dose, On Sat06/10/23 at 1015, Administer no faster than 100 mg/min, Day of Surgery (Day of Procedure), Routine 1355 (New Bag - Provider: Lamonte Hartley) Continuous Medication Order 06/09/2023 06/10/2023 06/11/2023 sodium chloride 0.9% infusion 1,000 mL, at 100 mL/hr, Intravenous, CONTINUOUS, Starting on Sat06/10/23 at 1845, Until Sat06/11/23 at 1833, Recovery (Recovery-Hospital Unit) 1913 (New Bag - Provider: Domi Carrillo, ARLETTE) 0514 (New Bag - Provider: Jillian Carolina, ARLETTE)0957 (Paused - Provider: Melvina Brooks, RN - Comment: working with PT/OT)1030 (Restarted - Provider: Melvina Brooks, ARLETTE)183 (Due: Stopped) tranexamic acid (Cyklokapron) (100 mg/mL) infusion (CANCELED) 1 mg/kg/hr ? 88.9 kg (0.889 mL/hr, rounded to 0.9 mL/hr), Intravenous, CONTINUOUS, Starting on Sat06/10/23 at 1015, Until Sat06/10/23 at 2043, Maximum infusion rate is 100 mg/min., Day of Surgery (Day of Procedure), Routine 1355 (New Bag - Provider: Lamonte Hartley)1743 (Stopped - Provider: Esthela Lange CRNA) PRN Medication Order 06/09/2023 06/10/2023 06/11/2023 bacitracin zinc-polymyxin B (Polysporin) ointment (CANCELED) PRN, Starting on Sat06/10/23 at 1552, Until Sat06/11/23 at 1833, Intra-Operative (Intra-Procedure) 1552 (Given - Provider: Charly Wilkins MD - Comment: applied to [place] clamp pins) BUpivacaine-EPINEPHrine (Marcaine-epiNEPHrine (PF)) 0.25 %-1:200,000 injection (CANCELED) PRN, Starting on Sat06/10/23 at 1551, Until Sat06/11/23 at 1833, Intra-Operative (Intra-Procedure), Routine 1551 (Given - Provider: Charly Wilkins MD) cyclobenzaprine (Flexeril) tablet 5 mg 5 mg, Oral, EVERY 8 HOURS PRN, Starting on Sat06/11/23 at 0811, Until Sat06/11/23 at 1833, Muscle spasms, Routine gelatin adsorbable 100 (Gelfoam) sponge (CANCELED) PRN, Starting on Sat06/10/23 at 1551, Until Sat06/11/23 at 1833, Intra-Operative (Intra-Procedure), Routine 155 (Given - Provider: Charly Wilkins MD) HYDROmorphone (Dilaudid) (2 mg/mL) multi-dose injection solution 0.4 mg (CANCELED)(Linked Group 1) 0.4 mg, Intravenous, EVERY 10 MIN PRN, Starting on Sat06/10/23 at 1741, Until Sat06/10/23 at 2043, Pain, For Mild to Moderate Pain (1-5 out of 10), Hold for respiratory rate less than 10 per minute. Maximum dose 4 mg over one hour including administrations in the OR. If multiple pain medications are ordered, start with HYDROmorphone or morphine and use fentaNYL for breakthrough pain., PACU Recovery, Routine 1840 (Given - Provider: Domi Carrillo RN)1948 (Given - Provider: Domi Carrillo RN)2010 (Given - Provider: Domi Carrillo RN) lidocaine (Xylocaine) 1% (10 mg/mL) injection 3 mg 3 mg (0.3 mL), Subcutaneous, ONCE PRN, 1 dose, Starting on Sat06/10/23 at 2153, Until Sat06/11/23 at 1833, for discomfort with PIV insertion, Recovery (Recovery-Hospital Unit), Routine ondansetron (pf) (Zofran) (2 mg/mL) injection 4 mg 4 mg, Intravenous, EVERY 8 HOURS PRN, Starting on Sat06/10/23 at 2153, Until Sat06/11/23 at 1833, Nausea, If multiple antiemetics are ordered, use ondansetron first, prochlorperazine second, metoclopramide third. oxyCODONE (Roxicodone) tablet 10 mg(Linked Group 2) 10 mg, Oral, EVERY 4 HOURS PRN, Starting on Sat06/10/23 at 1823, Until Sat06/11/23 at 1833, Pain, moderate pain (4-6), For moderate pain (4-6). Do not exceed 15 mg in 4 hours. If pain not relieved, call provider., Routine 2027 (Given - Provider: Domi Carrillo RN) 014 (See Alternative - Provider: Jillian Carolina RN)0623 (See Alternative - Provider: Jillian Carolina RN)102 (See Alternative - Provider: Sana Yost)161 (See Alternative - Provider: Sana Yost) oxyCODONE (Roxicodone) tablet 15 mg(Linked Group 2) 15 mg, Oral, EVERY 4 HOURS PRN, Starting on Sat06/10/23 at 1823, Until Sat06/11/23 at 1833, Pain, severe pain (7-10), For severe pain (7-10). Do not exceed 15 mg in 4 hours. If pain not relieved, call provider., Routine 2027 (See Alternative - Provider: Domi Carrillo RN) 146 (Given - Provider: Jillian Carolina RN)06 (Given - Provider: Jillian Carolina RN)102 (Given - Provider: Sana Yost)161 (Given - Provider: Sana Yost) oxyCODONE (Roxicodone) tablet 5 mg(Linked Group 2) 5 mg, Oral, EVERY 4 HOURS PRN, Starting on Sat06/10/23 at 1823, Until Sat06/11/23 at 1833, Pain, mild pain (1-3), For mild pain (1-3). Do not exceed 15 mg in 4 hours. If pain not relieved, call provider., Routine 2027 (See Alternative - Provider: Domi Carrillo RN) 014 (See Alternative - Provider: Jillian Carolina RN)06 (See Alternative - Provider: Jillian Carolina RN)102 (See Alternative - Provider: Sana Yost)161 (See Alternative - Provider: Sana Yost) sodium chloride 0.9 % (flush) (BD PosiFlush Normal Saline 0.9) flush 5-20 mL 5-20 mL, Intravenous, EVERY 1 MIN PRN, Starting on Sat06/10/23 at 2153, Until Sat06/11/23 at 1833, flush, Flush pertains to all indwelling lines. Flush per protocol found in the job aid using the link provided on this medication record., Recovery (Recovery-Hospital Unit), Routine thrombin (Bovine) (Thrombinar) kit (CANCELED) PRN, Starting on Sat06/10/23 at 1551, Until Sat06/11/23 at 1833, Intra-Operative (Intra-Procedure) 1551 (Given - Provider: Charly Wilkins MD) vancomycin (Vancocin) injection (CANCELED) PRN, Starting on Sat06/10/23 at 1551, Until Sat06/11/23 at 1833, Intra-Operative (Intra-Procedure), Routine 1551 (Given - Provider: Charly Wilkins MD) Linked Groups Order Group 1: HYDROmorphone (Dilaudid) (2 mg/mL) multi-dose injection solution 0.4 mg (CANCELED)Jump to med 0.4 mg, Intravenous, EVERY 10 MIN PRN, Starting on Sat06/10/23 at 1741, Until Sat06/10/23 at 2043, Pain, For Mild to Moderate Pain (1-5 out of 10), Hold for respiratory rate less than 10 per minute. Maximum dose 4 mg over one hour including administrations in the OR. If multiple pain medications are ordered, start with HYDROmorphone or morphine and use fentaNYL for breakthrough pain., PACU Recovery, Routine Or HYDROmorphone (Dilaudid) (2 mg/mL) multi-dose injection solution 0.6 mg (CANCELED) 0.6 mg, Intravenous, EVERY 10 MIN PRN, Starting on Sat06/10/23 at 1741, Until Sat06/10/23 at 204, Pain, For Moderate to Severe Pain (6-10 out of 10), Hold for respiratory rate less than 10 per minute. Maximum dose 4 mg over one hour including administrations in the OR. If multiple pain medications are ordered, start with HYDROmorphone or morphine and use fentaNYL for breakthrough pain., PACU Recovery, Routine Group 2: oxyCODONE (Roxicodone) tablet 5 mgJump to med 5 mg, Oral, EVERY 4 HOURS PRN, Starting on Sat06/10/23 at 1823, Until Sat06/11/23 at 1833, Pain, mild pain (1-3), For mild pain (1-3). Do not exceed 15 mg in 4 hours. If pain not relieved, call provider., Routine Or oxyCODONE (Roxicodone) tablet 10 mgJump to med 10 mg, Oral, EVERY 4 HOURS PRN, Starting on Sat06/10/23 at 1823, Until Sat06/11/23 at 1833, Pain, moderate pain (4-6), For moderate pain (4-6). Do not exceed 15 mg in 4 hours. If pain not relieved, call provider., Routine Or oxyCODONE (Roxicodone) tablet 15 mgJump to med 15 mg, Oral, EVERY 4 HOURS PRN, Starting on Sat06/10/23 at 1823, Until Sat06/11/23 at 1833, Pain, severe pain (7-10), For severe pain (7-10). Do not exceed 15 mg in 4 hours. If pain not relieved, call provider., Routine documented in this encounter Care Teams Turn Out Relationship Specialty Start Date End Date Lilian Julien, CIGAR [place] [address] [place] [address] PCP - General Family Medicine 03/12/23 documented as of this encounter
--- OUTSIDE RECORDS SUMMARY | 2023-11-16 14:10 | XMS_ITS | Encounter Summary ---
Author Organization [facility] Address [facility] [place] [address] Care Team Providers Care Credit Card Specialist Name Role Phone Lilian Julien APRN Primary Care Provider [phone] Encounter Details Date Type Department Care Team (Latest Contact Info) Description 07/22/2023 Travel Social History Tobacco Use Types Packs/Day Years Used Date Smoking Tobacco: Never Smokeless Tobacco: Never Comments:vapes but not nicot ine Alcohol Use Standard Drinks/Week Comments Never 0 (1 standard drink = 0.6 oz pur e alcohol) [facility] Utilities Answer Date Recorded In the [...] in a residential (including now)? No 06/11/2023 IPV Inpatient Questions [...] as of this encounter Plan of Treatment Upcoming Encounters Date Type Department Care Team (Late st Contact Info) Description 12/24/2023 10:00 AM EDT Office [place] [address] [facility] [place] [place] [address] 12/24/2023 10:30 AM EDT Appointment XRay at [address] [place] [phone] [facility] [place] [address] 12/24/2023 11:30 AM EDT Office Visit [facility] [place] [phone] [facility] [place] [address] documented as of this encounter Visit Diagnoses Not on filedocumented in this encounter Care Teams Credit Card Specialist Relationship Specialty Start Date End Date Lilian Julien, [address]EL[address] [place] [address] PCP - General Family Medicine 03/12/23 documented as of this encounter
--- OUTSIDE RECORDS SUMMARY | 2023-11-16 14:10 | XMS_ITS | Clinical Summary ---
Author Organization [facility] Address [facility] [place] [address] Care Team Providers Care Line Mover Name Role Phone Wily Lilian Hicks APRN Primary Care Provider [phone] Allergies Active Allergy Reactions Criticality Noted Date Comments Divalproex Other (See Comments) 03/13/2022 Edema Medications Medication Sig Dispensed Refills Start Date End Date Status ARIPiprazole (ABILIFY) 2 mg Tablet Take 2 mg by mouth daily. 0 02/03/2018 Active UNABLE TO FIND Take by mouth as needed. Med Name: CBD oil Active ProAir HFA 90 mcg/actuation HFA Aerosol Inhaler INL 1 TO 2 PFS PO Q 4 TO 6 H PRN 04/20/2019 Active cholecalciferol, Vitamin D3, 50 mcg (2,000 unit) Tablet Take 1 tablet by mouth daily. 90 tablet 3 04/10/2021 Active methylcellulose (CITRUCEL ORAL) Take by mouth as needed. Active riboflavin, Vitamin B2, (Vitamin B2) 100 mg tablet Take 2 tablets by mouth 2 times daily. 120 tablet 11 09/17/2022 Active lisinopriL (Zestril) 10 mg tablet Take 10 mg by mouth every morning. 10/18/2022 Active sertraline (Zoloft) 100 mg tablet Take 150 mg by mouth daily. 02/13/2023 Active Magnesium Oxide 250 mg magnesium Tablet TAKE ONE TABLET BY MOUTH TWICE A DAY 60 tablet 5 05/06/2023 Active acetaminophen (Tylenol) 500 mg tablet Take 2 tablets by mouth every 8 hours. Continue the Tylenol around the clock for 10 days after surgery, (06/20/23). Then may take if needed per package insert. Do not take more than 3,000 mg of Tylenol in 24 hours. 06/11/2023 Active polyethylene glycoL (Miralax) 17 gram oral powder packet Take 17 g by mouth 2 times daily as needed (constipation). 06/11/2023 Active senna-docusate (Pericolace) 8.6-50 mg Tablet Take 2 tablets by mouth 2 times daily as needed for Constipation. 06/11/2023 Active oxyCODONE (Roxicodone) 5 mg tablet Take 1 tab every 4-6 hours PRN pain. Use least amount possible. 30 tablet 06/25/2023 Active aspirin EC 81 mg EC (DR) tablet Take 1 tablet by mouth Daily at Noon. 06/17/2023 Active cyclobenzaprine (Flexeril) 10 mg tablet Take 1 tablet by mouth 3 times daily as needed for Muscle spasms. 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 Wilkins, 06/10/23 05/21/2023 Fibroid, uterine 03/12/2023 Asthma 07/25/2022 Contusion of muscle 07/25/2022 Depression 07/25/2022 Fibromyalgia 07/25/2022 Headache 07/25/2022 Generalized tonic-clonic seizure 07/25/2022 History of carpal tunnel surgery of right wrist 07/25/2022 Hx of tubal ligation 07/25/2022 History of open heart surgery 07/25/2022 History of pre-eclampsia 07/25/2022 Hyperlipidemia 07/25/2022 Hypertension 07/25/2022 Hypokalemia 07/25/2022 Knee pain, bilateral 07/25/2022 Low back pain 07/25/2022 Migraine headache 07/25/2022 Pruritic erythematous rash 07/25/2022 Sciatica 07/25/2022 Tremor 07/25/2022 Morbid obesity with BMI of 40.0-44.9, adult 11/0 09/2021 Overview (01/08/2022): Body mass index is 41.19 kg/m??. Seizure-like activity 07/04/2021 s/p L4-5 decompression, PSIF Dr. Wilkins 01/04/2020 Overview (01/04/2020): Added automatically from request for surgery [id number] Seizures 05/05/2018 CIS - ASD, S/P repair CIS - Asthma CIS - Depression Encounters Date Type Department Care Team Description 11/12/2023 Telephone [facility] [place] [phone] None 11/09/2023 Refill Neurology at [place] [phone] Tereso Mohan MD 11/07/2023 [place] [address] Tereso Mohan MD 10/23/2023 Refill Neurology at [place] [phone] Tereso Mohan MD 09/19/2023 Telephone [facility] [place] [phone] Charly Wilkins MD 09/19/2023 External Results [facility] [place] [address] 09/16/2023 Telephone [facility] [place] [address] Kait Ace, government sales manager Refill 09/16/2023 Telephone [facility] [place] [address] Susanna Jason LPN 09/10/2023 Telephone [facility] [place] [address] Kait Ace RN from Last 3 Months Immunizations Name Administration Dates Next Due Influenza (Novel D2M8-51) Injectable 04/26/2009 Influenza Vaccine, Whole 04/26/2009 Family History Medical History Relation Comments Breast Cancer Neg Hx Colorectal Cancer Neg Hx Ovarian Cancer Neg Hx Uterine Cancer Neg Hx Social History Tobacco Use Types Packs/Day Years Used Date Smoking Tobacco: Never Smokeless Tobacco: Never Tobacco Cessation:Counseling Given: Not Answered Comments:vapes but not nicotine Alcohol Use Standard Drinks/Week Comments Never 0 (1 standard drink = 0.6 oz pur e alcohol) [facility] Utilities Answer Date Recorded In the past [...] place to sleep or slept in a assisted (including now)? No 06/11/2023 IPV Inpatient Questions [...] on file Sexual Orientation Not on file Last Filed Vital Signs Vital Sign Reading Time Taken Comments Blood Pressure 129/69 06/11/2023 11:44 AM EDT Pulse 95 06/10/2023 8:30 PM EDT Temperature 36.4 ??C (97.5 ??F) 06/11/2023 11:44 AM E DT Respiratory Rate 16 06/11/2023 11:44 AM EDT Oxygen Saturation 99% 06/11/2023 11:44 AM EDT Inhaled Oxygen Concentration - - Weight 90.3 kg (199 lb) 07/22/2023 8:58 AM EDT Height 154.9 cm (5' 1) 07/22/2023 8:58 AM EDT Body Mass Index 37.6 07/22/2023 8:58 AM EDT Plan of Treatment Upcoming Encounters Date Type Department Care Team (Late st Contact Info) Description 12/24/2023 10:00 AM EDT [place] [address] Tereso Mohan MD [facility] [place] [address] 12/24/2023 10:30 AM EDT Appointment XRay at [address] [place] [phone] Shelby Aaron APRN [facility] [place] [address] 12/24/2023 11:30 AM EDT Office Visit [place] [address] Shleby Aaron APRN [facility] [place] [address] Health Maintenance Due Date Last Done Comments Pneumococcal Vaccine: At-Ris k 5-64yrs (1 of 2 - PCV) 10/24/1989 HIV screen 10/24/2001 Hepatitis C Screening 10/24/2001 Lipid Screening 10/24/2001 Hepatitis B vaccine (0-59 yrs) (1) 10/24/2002 Tdap adult 10/24/2002 Tetanus vaccine 10/24/2002 HPV test 10/24/2013 PAP Smear 10/24/2013 Breast Cancer Share Decision Needed 2023 Breast Cancer screening 2023 Covid-19 Vaccine (1 - 2022-2 4 season) 2023 Influenza (Flu) vaccine (1 o f 1 - Influenza standard series) 11/03/2023 04/26/2009, 04/26/2009 Diabetes Screening (HgbA1C o r Glucose) 06/10/2026 06/11/2023, 05/21/2023, 03/12/2023, Additional history exists Medical Devices Implanted Type Area Coordinator Of Rehabilitation Services Device Identifier Shelf Expiration Date Model / Serial / Lot Screw Spinal Set Pedicle Sterile For 5.5 Francesco Sld ([id number]) (Autoreq) - [id number] Implanted:Qty: 4 on 01/05/2022 by Chraly Wilkins MD at [facility] IMPLANTS Spine Lumbar [employer] 09/21/2026 [id number] / / [id number] Graft Bone Filler [id number] Chips Can Preservon Readigraft ([id number]) (Autoreq) - [id number] Implanted:Qty: 1 on 01/05/2022 by Charly Wilkins MD at [facility] IMPLANTS Spine Lumbar LIF[employer]ET [facility] [place] 09/21/2024 [id number] / [id number] / Screw Spinal Set Pedicle Sterile For 5.5 Francesco Sld ([id number]) (Autoreq) - [id number] Implanted:Qty: 1 on 01/05/2022 by Charly Wilkins MD at [facility] IMPLANTS Spine Lumbar [employer] 09/22/2025 [id number] / / [id number] Francesco Spinal 5.5x40mm Thoracolumbar Prebent Pre Cut Ti ([id number]) (Autoreq) - [id number] Implanted:Qty: 2 on 01/05/2022 by Charly Wilkins MD at [facility] IMPLANTS Spine Lumbar [employer] [id number] / / Screw Spinal 6.5x40mm Pedicle Ats Thread Sld ([id number]) (Autoreq) - [id number] Implanted:Qty: 2 on 01/05/2022 by Charly Wilkins MD at [facility] IMPLANTS Spine Lumbar [employer] [id number] / / Screw Spinal 6.5x45mm Pedicle Shank Ats Thread Sld ([id number]) (Autoreq) - [id number] Implanted:Qty: 1 on 01/05/2022 by Charly Wilkins MD at [facility] IMPLANTS Spine Lumbar [employer] [id number] / / Screw Spinal Set Posterior Cervical Mltaxl Sld Pt Infinity ([id number]) (Autoreq) - [id number] Implanted:Qty: 7 on 06/10/2023 by Charly Wilkins MD at [facility] IMPLANTS Midline: Spine Cervical [employer] [id number] / / Francesco Spinal 3.5x40mm Occipito Cervical Pre Cut Ti ([id number]) (Autoreq) - [id number] Implanted:Qty: 2 on 06/10/2023 by Charly Wilkins MD at [facility] IMPLANTS Midline: Spine Cervical [employer] [id number] / / Screw Spinal 3.5x14mm Posterior Cervical Mltaxl Sld Ti ([id number]) (Autoreq) - [id number] Implanted:Qty: 2 on 06/10/2023 by Charly Wilkins MD at [facility] IMPLANTS Midline: Spine Cervical [employer] [id number] / / Screw Spinal 3.5x16mm Posterior Cervical Mltaxl Sld Ti ([id number]) (Autoreq) - [id number] Implanted:Qty: 2 on 06/10/2023 by Charly Wilkins MD at [facility] IMPLANTS Midline: Spine Cervical [employer] - [employer] [id number] / / Graft Bone Filler [id number] Dbm Freeze Dried Chips ([id number]) (Autoreq) - [id number] Implanted:Qty: 1 on 06/10/2023 by Charly Wilkins MD at [facility] IMPLANTS N/A: Spine Cervical [employer] - [employer] 01/19/2026 [id number] / [id number] / Screw Spinal 5.5x25mm Posterior Cervical Mltaxl Sld Ti ([id number]) (Autoreq) - [id number] Implanted:Qty: 1 on 06/10/2023 by Charly Wilkins MD at [facility] IMPLANTS N/A: Spine Cervical [employer] - [employer] 08/22/2029 [id number] / / [id number] Screw Spinal 4.5x16mm Posterior Cervical Mltaxl Sld Ti ([id number]) (Autoreq) - [id number] Implanted:Qty: 1 on 06/10/2023 by Charly Wilkins MD at [facility] IMPLANTS N/A: Spine Cervical [employer] - [employer] 05/10/2031 [id number] / / [id number] 6.5 Ats Modex Shank Implanted:Qty: 1 on 01/05/2022 by Charly Wilkins MD at [facility] Spine Lumbar [employer] - [employer] [place] - [id number] / / Procedures Procedure Name Priority Date/Time Associated Diagnosis Comments CT CERVICAL SPINE WO CONTRAST Routine 09/15/2023 6:[address] CERVICAL SPINE WO CONTRAST Routine 09/15/2023 6:40 AM EDT BASIC METABOLIC PANEL Routine 06/11/2023 2:33 AM EDT from Last 3 Months or Most Recently Relevant to Health Maintenance Results * CT Cervical Spine wo Contrast (09/15/2023 6:42 AM EDT) Only the most recent of2 resultswithin the time period is included. Anatomical Region Laterality Modality C-spine Computed Tomogra phy Historical Provider MD ZAIDI CT ORDERABLES * (ABNORMAL) Basic Metabolic Panel (non-fasting) (06/11/2023 2:33 AM EDT) Glucose 133 65 - 199 mg/dL [facility] Comment:Diabetes: >=200 mg/d L plus symptoms Blood Urea Nitrogen 8 8 - 18 mg/dL [facility] Creatinine 0.52(L) 0.70 - 1.20 mg/dL [facility] Sodium 135 135 - 145 mmol/L [facility] Potassium 4.1 3.5 - 5.0 mmol/L [facility] Comment: Please note: ??Patients with WBC >100,000 may have falsely elevated Potassium levels. ??For accurate Potassium quantification in these patients send serum separator tube (gold top) for subsequent determinations. ??Contact the Clinical Chemistry Laboratory if there are any questions. Chloride 104 98 - 107 mmol/L [facility] Carbon Dioxide 19(L) 22 - 31 mmol/L [facility] Anion Gap 12 5 - 15 mmol/L [facility] Calcium 8.8 8.5 - 10.5 mg/dL [facility] Est Glomerular Filtration Rate 121 >=60 mL/min/1. 73 m?? [facility] Comment: This patient's estimated GFR was [...] In Lab Charly Wilkins MD CHEMISTRY ORDERABLES [facility] [place] [address] from Last 3 Months or Most Recently Relevant to Health Maintenance Advance Directives * Attempt Cardiopulmonary Resuscitation - Inpatient (Latest Code Status on File) Date Activated Date Inactivated Comments 06/10/2023 6:04 PM 06/11/2023 6:33 PM Question Answer Comments Code Status decision made by: Patient * Attempt Cardiopulmonary Resuscitation - Inpatient Date Activated Date Inactivated Comments 01/05/2022 2:50 PM 01/08/2022 3:11 PM Question Answer Comments Code Status decision made by: Patient * Attempt Cardiopulmonary Resuscitation - Inpatient Date Activated Date Inactivated Comments 11/23/2021 3:49 PM 11/29/2021 1:49 PM Question Answer Comments Code Status decision made by: Patient * Attempt Cardiopulmonary Resuscitation - Inpatient Date Activated Date Inactivated Comments 07/04/2021 3:41 PM 07/11/2021 2:07 PM Question Answer Comments Code Status decision made by: Patient Care Teams Line Mover Relationship Specialty Start Date End Date Lilian Julien, WELDING MACHINE OPERATOR ELECTROS[employer] [address] PCP - General Family Medicine 03/12/23
--- OUTSIDE RECORDS SUMMARY | 2023-11-16 14:10 | XMS_ITS | Encounter Summary ---
Author Organization Formerly [facility] Address [facility] [place] [address] Care Team Providers Care Life Agent Name Role Phone Wily Lilian Hicks APRN Primary Care Provider [phone] Encounter Details Date Type Department Care Team (Latest Contact Info) Description 07/22/2023 7:32 AM EDT - 07/22/2023 11:59 PM EDT Hospital Encounter XRay at [address] [place] [address] Charly Wilkins MD [facility] [place] [address] Cervical spondylosis with myelopathy Discharge Disposition: Home Social History Tobacco Use Types Packs/Day Years Used Date Smoking Tobacco: Never Smokeless Tobacco: Never Comments:vapes but not nicot ine Alcohol Use Standard Drinks/Week Comments Never 0 (1 standard drink = 0.6 oz pur e alcohol) [facility] Utilities Answer Date Recorded In the past 12 months has [email or web address], gas, oil, or water [employer] threatened to shut off services in your [...] place to sleep or slept in a mcfp (including now)? No 06/11/2023 DH IPV Inpatient [...] Sig Dispensed Refills Start Date End Date aspirin EC 81 mg EC (DR) tablet Take 1 tablet by mouth Daily at Noon. 06/17/2023 oxyCODONE (Roxicodone) 5 mg tablet Take 1 tab every 4-6 hours PRN pain. Use least amount possible. 30 tablet 06/25/2023 acetaminophen (Tylenol) 500 mg tablet Take 2 [...] mouth as needed. Med Name: CBD oil gabapentin (Neurontin) 300 mg capsule TAKE ONE [...] 07/25/2022 09/16/2023 documented as of this encounter Plan of Treatment Upcoming Encounters Date Type Department Care Team (Late st Contact Info) Description 12/24/2023 10:00 AM EDT [place] [address] Tereso Mohan MD [facility] [place] [place] [address] 12/24/2023 10:30 AM EDT Appointment XRay at [address] [place] [phone] Shelby Aaron, [facility] [address] TASHA CLINE [place] [address] 12/24/2023 11:30 AM EDT Office Visit [facility] [place] [phone] Shelby Aaron, HYPO SPLASHER [facility] [place] [address] documented as of this encounter Procedures Procedure Name Priority Date/Time Associated Diagnosis Comments XR CERVICAL SPINE 2 OR 3 VIEWS Routine 07/22/2023 7:43 AM EDT Cervical spondylosis with myelopathy documented in this encounter Results * XR Cervical Spine 2 or 3 Views (07/22/2023 7:43 AM EDT) Receept WORKSTATION ID [id number] [facility] Anatomical Region Laterality Modality C-spine N/A Digital Radiogra phy Impressions 07/22/2023 10:29 AM EDT Status post posterior decompression and fusion from C5 through T1. ??No hardware complication. Thank you for letting us participate in the care of this patient. ??If you are a health care provider and have any questions regarding this report, please contact the number below. ??For patients who have questions please contact the health clinical manager home care that requested your imaging first. ? Electronically signed by: Gabriella Griffith MD, [facility] ([phone]), at 07/22/2023 10:29 AM Narrative 07/22/2023 10:29 AM EDT EXAMINATION: XR CERVICAL SPINE 2 OR 3 VIEWS CLINICAL HISTORY: ??s/p surgery ?? (as entered by ordering provider in the order requisition) TECHNIQUE: AP and lateral views of the cervical spine. COMPARISON: Cervical spine radiographs June 20, 2023 FINDINGS: On the lateral view, spinal levels are seen down to C7-T1. ??T1 vertebral body is partially obscured by overlying soft tissues. The anterior atlantodental interval is normal. There are postoperative changes status post posterior decompression and fusion from C5 through T1. ??Hardware is intact and similar position. No focal vertebral body height loss. ??No listhesis. No prevertebral soft tissue swelling. Similar degree of disc space narrowing at all levels of the cervical spine. Partial visualization of sternotomy wires. Procedure Note Gabriella Griffith MD - 07/22/2023 EXAMINATION: XR CERVICAL SPINE 2 OR 3 VIEWS CLINICAL HISTORY: s/p surgery (as entered by ordering provider inthe order requisition) TECHNIQUE: AP and lateral views of the cervical spine. COMPARISON: Cervical spine radiographs June 20, 2023 FINDINGS: On the lateral view, spinal levels are seen down to C7-T1. T1 vertebralbody is partially obscured by overlying soft tissues. The anterior atlantodental interval is normal. There are postoperative changes status post posterior decompression andfusion from C5 through T1. Hardware is intact and similar position. No focal vertebral body height loss. No listhesis. No prevertebral soft tissue swelling. Similar degree of disc space narrowing at all levels of the cervicalspine. Partial visualization of sternotomy wires. IMPRESSION Status post posterior decompression and fusion from C5 through T1. Nohardware complication. Thank you for letting us participate in the care of this patient. If youare a health care provider and have any questions regarding this report,please contact the number below. For patients who have questions please contactthe health clinical manager home care that requested your imaging first. Electronically signed by: Gabriella Griffith MD, [facility]([phone]), at 07/22/2023 10:29 AM Charly Wilkins MD IMG DX ORDERABLES documented in this encounter Visit Diagnoses Diagnosis Cervical spondylosis with myelopathy documented in this encounter Care Teams Life Agent Relationship Specialty Start Date End Date Lilian Julien, HYPO [place] [address] [place] [address] PCP - General Family Medicine 03/12/23 documented as of this encounter
--- OUTSIDE RECORDS SUMMARY | 2023-11-16 14:10 | XMS_ITS | Encounter Summary ---
[place] [address] Care Team Providers Care Tetryl Boiling Tub Operator Name Role Phone Lilian Julien APRN Primary Care Provider [phone] Encounter Details Date Type Department Care Team (Late st Contact Info) Description 11/12/2023 Telephone [facility] [place] [phone] None None Social History Tobacco Use Types Packs/Day Years Used Date Smoking Tobacco: Never Smokeless Tobacco: Never Comments:vapes but not nicot ine Alcohol Use Standard Drinks/Week Comments Never 0 (1 standard drink = 0.6 oz pur e alcohol) [facility] Utilities Answer Date Recorded In the past 12 months has e electric, gas, oil, or water company [...] place to sleep or slept in a penitentiary (including now)? No 06/11/2023 DH IPV Inpatient [...] encounter Miscellaneous Notes * Telephone Encounter - Sofiya Hartley E - 11/12/2023 2:46 PM EDT CLINIC PHONE COVERAGE: Reason for Call: Scheduling Question PCP: Lilian Julien APRN / Treating provider: n/a Message: Bessie called and stated she was unsure if she was supposed to be scheduling an appt withdepartment soon. Please call to advise further and assist with scheduling as necessary. Caller Name (If other than patient): Bessie Levy Relationship to Patient (if other than self): Patient Callback number: [phone] Best time you are available: Any, as soon as possible Route Per Clinic Coverage Page documented in this encounter Plan of Treatment Upcoming Encounters Date Type Department Care Team (Late st Contact Info) Description 12/24/2023 10:00 AM EDT Office Visit Neurology at [place] [phone] Tereso Mohan MD [facility] [place] [address] 12/24/2023 10:30 AM EDT Appointment XRay at [address] [place] [phone] Shelby Aaron, [facility] [place] [address] 12/24/2023 11:30 AM EDT Office Visit [place] [address] Shelby Aaron, [facility] [place] [address] documented as of this encounter Visit Diagnoses Not on filedocumented in this encounter Care Teams Tetryl Boiling Tub Operator Relationship Specialty Start Date End Date [place] [address] PCP - General Family Medicine 03/12/23 documented as of this encounter
--- OUTSIDE RECORDS SUMMARY | 2023-11-16 14:10 | XMS_ITS | Encounter Summary ---
Author Organization [facility] Address [facility] Vinod [facility] [place] [address] Care Team Providers Care Prison Psychiatrist Name Role Phone Wily Lilian Hicks APRN Primary Care Provider Reason for Visit * Reason Comments Medication Refill Encounter Details Date Type Department Care Team (Late st Contact Info) Description 10/23/2023 [place] [address] [facility] [place] [address] Social History Tobacco Use Types Packs/Day Years Used Date Smoking Tobacco: Never Smokeless Tobacco: Never Comments:vapes but not nicot ine Alcohol Use Standard Drinks/Week Comments Never 0 (1 standard drink = 0.6 oz pur e alcohol) [facility] Utilities Answer Date Recorded In the past 12 months has [employer], gas, oil, or water [employer] threatened to shut off services in your [...] Encounter - Kirsten Del Valle CMA - 10/24/2023 8:12 AM EDT Prescription Renewal Request Name: Bessie H Cam : 1985 Prescription(s) Requested: Requested Prescriptions Refused Prescriptions Disp Refills naproxen (Naprosyn) 500 mg tablet [Pharmacy Med Name: NAPROXEN 500 MG TABLET] 60 tablet 12 Sig: TAKE ONE TABLET BY MOUTH TWICE A DAY NEEDED The original prescription was discontinued on 06/11/2023 by Grazyna Grossman, ESCALATION ENGINEER. Renewing this prescription may not be appropriate. Office note 05/28/2023 . Pt agreed to hold ASA, Naproxen as instructed. is not noted to be taking any prescription Anticoagulants or Biologics. Status of request: Refused Allergies Allergen Reactions Depakote [Divalproex] Other (See Comments) Edema Kirsten Del Valle CMA 10/24/23 8:12 AM documented in this encounter Plan of Treatment Upcoming Encounters Date Type Department Care Team (Late st Contact Info) Description 12/24/2023 10:00 AM EDT Office Visit Neurology at [place] [phone] [facility] [place] [address] 12/24/2023 10:30 AM EDT Appointment XRay at [address] [place] [phone] Shelby Aaron ESCALATION ENGINEER [facility] [place] [address] 12/24/2023 11:30 AM EDT Office Visit Pain and Spine Center at [place] [phone] Shelby Aaron ESCALATION ENGINEER [facility] [place] [address] documented as of this encounter Visit Diagnoses Not on filedocumented in this encounter Care Teams Prison Psychiatrist Relationship Specialty Start Date End Date Lilian Julien APRN Nidhi SWANN [facility] [place] [address] PCP - General Family Medicine 03/12/23 documented as of this encounter
--- OUTSIDE RECORDS SUMMARY | 2023-11-16 14:10 | XMS_ITS | Encounter Summary ---
[place] [address] Care Team Providers Care Meter Engineer Name Role Phone Lilian Julien APRN Primary Care Provider [phone] Encounter Details Date Type Department Care Team (Late st Contact Info) Description 06/17/2023 Telephone [facility] [place] [phone] Susanna Jason LPN Social History Tobacco Use Types Packs/Day Years Used Date Smoking Tobacco: Never Smokeless Tobacco: Never Comments:vapes but not nicot ine Alcohol Use Standard Drinks/Week Comments Never 0 (1 standard drink = 0.6 oz pur e alcohol) [facility] Utilities Answer Date Recorded In the [...] as of this encounter Miscellaneous Notes * Addendum Note - Susanna Jason LPN - 06/18/2023 9:53 AM EDTAddended by: SUSANNA JASON on: 06/18/2023 09:53 AM Modules accepted: Orders * Telephone Encounter - Susanna Jason LPN - 06/17/2023 11:17 AM EDT Placed call to Bessie on behalf of Dr. Wilkins, she is s/p 4-8-24 1. Posterior cervical instrumentation C5-T1. 2. Posterior laminectomy C5-6, C6-7 without facetectomy. 3. Posterior cervical athrodesis C5-T1. 4. Application of local autograft and allograft. 5. Application and removal of Sutherland tongs. 6. Neuro monitoring. Today she reports her hands are better, no tingling to her arms, she does feel a little tippy sometimes when she is walking. She did call last night and spoke with Dr. Carmichael, she had called in due toincrease in pain. She was discharged 06-11-23 with Oxycodone 5 mg with direction to take 1-2 tabs Q 4hours PRN pain, Dr. Carmichael prescribed 15 tablets with direction to use 1 tab Q6 PRN pain. Advised Bessie that she call me (provided number) when she has 1 days supply on hand and will calculate her next weeks prescription. Bessie is in agreement with this plan. Reviewed with Dr. Wilkins, he recommends 1-2 tabs Oxycodone 5 mg Q 4 hours PRN pain. I will check in with her tomorrow for refill as she got 15 tabs this am by Dr. Carmichael. documented in this encounter Plan of Treatment Upcoming Encounters Date Type Department Care Team (Late st Contact Info) Description 12/24/2023 10:00 AM EDT Office Visit Neurology at [place] [phone] Tereso Mohan MD [facility] [place] [address] 12/24/2023 10:30 AM EDT Appointment XRay at [address] [place] [phone] Shelby Aaron APRN [facility] [place] [address] 12/24/2023 11:30 AM EDT Office Visit [place] [phone] Shelby Aaron APRN [facility] [place] [address] documented as of this encounter Visit Diagnoses Not on filedocumented in this encounter Care Teams Meter Engineer Relationship Specialty Start Date End Date Lilian Julien, INTELLIGENCE CONSULTANT [facility] [place] [address] PCP - General Family Medicine 03/12/23 documented as of this encounter
--- OUTSIDE RECORDS SUMMARY | 2023-11-16 14:10 | XMS_ITS | Encounter Summary ---
[place] [address] Care Team Providers Care Brazer Assembler Name Role Phone Wily Lilian Hicks APRN Primary Care Provider [phone] Reason for Visit * Reason Onset Date Comments Medication Refill 09/16/2023 Encounter Details Date Type Department Care Team (Late st Contact Info) Description 09/16/2023 Telephone [place] [phone] Kait Ace, director of coding Refill Social History Tobacco Use Types Packs/Day Years Used Date Smoking Tobacco: Never Smokeless Tobacco: Never Comments:vapes but not nicot ine Alcohol Use Standard Drinks/Week Comments Never 0 (1 standard drink = 0.6 oz pur e alcohol) [facility] Utilities Answer Date Recorded In the past 12 months has [employer], gas, oil, or water [employer] threatened to shut off services in your [...] in a assisted (including now)? No 06/11/2023 DH IPV Inpatient [...] encounter Miscellaneous Notes * Telephone Encounter - Kait Ace RN - 09/16/2023 5:05 PM EDTSummary: Requesting refill of Flexeril Janice called earlier today with report of right arm/hand weakness with spasms. Chart review reveals we are working on getting her a sooner appointment with xrheike. She is currently scheduled with Shelby on 10/02/23. Calling to get [facility] ED notes and see if there was any imaging done. Janice is requesting refill of Flexeril. She has been taking 2 Flexeril 5 mg tablets. Will pend prescription for Flexeril 10mg, 1 tablet TID prn to Dr. Wilkins. Janice's pharmacy is [facility] in [place], [place]. documented in this encounter Plan of Treatment Upcoming Encounters Date Type Department Care Team (Late st Contact Info) Description 12/24/2023 10:00 AM EDT [place] [address] Tereso Mohan MD [facility] [place] [address] 12/24/2023 10:30 AM EDT Appointment XRay at [address] [place] [phone] Shelby Aaron, [facility] [address] 12/24/2023 11:30 AM EDT Office Visit [place] [phone] Shelby Aaron, EXTRUSION LINE OPERATOR [facility] [place] [address] documented as of this encounter Visit Diagnoses Not on filedocumented in this encounter Care Teams Brazer Assembler Relationship Specialty Start Date End Date Lilian Jul[place] [address] PCP - General Family Medicine 03/12/23 documented as of this encounter
--- OUTSIDE RECORDS SUMMARY | 2023-11-16 14:10 | XMS_ITS | Encounter Summary ---
[place] [address] Care Team Providers Care Tax Assistant Name Role Phone Lilian Julien APRN Primary Care Provider [phone] Reason for Referral * Diagnostic Test (Routine) - Closed Specialty Diagnoses / Procedures Referred By Contac t Referred To Contact Radiology Diagnoses Cervical radiculopathy Procedures CT Cervical Spine wo Contrast [facility] [place] [address] Unknown None Referral ID Status Reason Start Date Expiration Date V isits Requested Visits Authorized [id number] Closed Specialty Service Requested 09/19/2023 03/21/2025 1 1 * Diagnostic Test (Routine) - Closed Specialty Diagnoses / Procedures Referred By Contac t Referred To Contact Radiology Diagnoses Cervical radiculopathy Procedures CT Cervical Spine wo Contrast [facility] [place] [address] Unknown None Referral ID Status Reason Start Date Expiration Date V isits Requested Visits Authorized [id number] Closed Specialty Service Requested 09/19/2023 03/21/2025 1 1 Encounter Details Date Type Department Care Team (Late st Contact Info) Description 09/19/2023 External Results [facility] [place] [address] Social History Tobacco Use Types Packs/Day Years Used Date Smoking Tobacco: Never Smokeless Tobacco: Never Comments:vapes but not nicot ine Alcohol Use Standard Drinks/Week Comments Never 0 (1 standard drink = 0.6 oz pur e alcohol) [facility] Utilities Answer Date Recorded In the [...] place to sleep or slept in a custodial (including now)? No 06/11/2023 DH IPV Inpatient [...] 10:00 AM EDT [place] [address] Tereso Mohan MD [facility] [place] [address] 12/24/2023 10:30 AM EDT Appointment XRay at [address] [place] [address] Shelby Aaron APRN [facility] [place] [address] 12/24/2023 11:30 AM EDT Office Visit [place] [address] Shelby Aaron APRN [facility] [place] [address] documented as of this encounter Procedures Procedure Name Priority Date/Time Associated Diagnosis Comments CT CERVICAL SPINE WO CONTRAST Routine 09/15/2023 6:[address] CERVICAL SPINE WO CONTRAST Routine 09/15/2023 6:40 AM EDT documented in this encounter Results * CT Cervical Spine wo Contrast (09/15/2023 6:42 AM EDT) Anatomical Region Laterality Modality C-spine Computed Tomogra phy Historical Provider MD ZAIDI CT ORDERABLES * CT Cervical Spine wo Contrast (09/15/2023 6:40 AM EDT) Anatomical Region Laterality Modality C-spine Computed Tomogra phy Historical Provider MD ZAIDI CT ORDERABLES documented in this encounter Visit Diagnoses Not on filedocumented in this encounter Care Teams Tax Assistant Relationship Specialty Start Date End Date Lilian Julien, [place] [address] [address] [place] [address] PCP - General Family Medicine 03/12/23 documented as of this encounter
--- OUTSIDE RECORDS SUMMARY | 2023-11-16 14:10 | XMS_ITS | Encounter Summary ---
[place] [address] Care Team Providers Care Computer Operations Technician Name Role Phone Wily Lilian Hicks APRN Primary Care Provider [phone] Encounter Details Date Type Department Care Team (Late st Contact Info) Description 09/19/2023 Telephone [place] [phone] Charly Wilkins MD [facility] [place] [address] Social History Tobacco Use Types Packs/Day Years Used Date Smoking Tobacco: Never Smokeless Tobacco: Never Comments:vapes but not nicot ine Alcohol Use Standard Drinks/Week Comments Never 0 (1 standard drink = 0.6 oz pur e alcohol) [facility] Utilities Answer Date Recorded In the past 12 months has [employer], oil, or water [employer] threatened to shut off services in your [...] place to sleep or slept in a intermediate (including now)? No 06/11/2023 DH IPV Inpatient [...] encounter Miscellaneous Notes * Telephone Encounter - Jennifer Abel - 09/19/2023 12:04 PM EDT Pt called looking to bean picker her refill that was requested on 09/16/23 to pt's pharmacy [facility] . She stated she got a divorce & her name is now Bessie Chacon at the [facility] place. Pt would like some one to call her to let her know the status of her refill Med. Since she's gone to [facility] 2x. Pt's # [phone] documented in this encounter Plan of Treatment Upcoming Encounters Date Type Department Care Team (Late st Contact Info) Description 12/24/2023 10:00 AM EDT [place] [address] Tereso Mohan MD [facility] [address] 12/24/2023 10:30 AM EDT Appointment XRay at [address] [place] [phone] Shelby Aaron APRN [facility] [place] [address] 12/24/2023 11:30 AM EDT Office Visit [place] [address] Shelby Aaron APRN [facility] [place] [address] documented as of this encounter Visit Diagnoses Not on filedocumented in this encounter Care Teams Computer Operations Technician Relationship Specialty Start Date End Date Lilian Julien APRN Nidhi [facility] [place] [address] PCP - General Family Medicine 03/12/23 documented as of this encounter
--- OUTSIDE RECORDS SUMMARY | 2023-11-16 14:10 | XMS_ITS | Encounter Summary ---
[place] [address] Care Team Providers Care Mason Tender Restoration Labor Name Role Phone Wily Lilian Hicks APRN Primary Care Provider [phone] Encounter Details Date Type Department Care Team (Late st Contact Info) Description 07/22/2023 Notes Only [facility] [place] [phone] Saeid Dawson, RN Social History Tobacco Use Types Packs/Day Years Used Date Smoking Tobacco: Never Smokeless Tobacco: Never Comments:vapes but not nicot ine Alcohol Use Standard Drinks/Week Comments Never 0 (1 standard drink = 0.6 oz pur e alcohol) [facility] Utilities Answer Date Recorded In the past [...] place to sleep or slept in a usp (including now)? No 06/11/2023 IPV Inpatient Questions [...] as of this encounter Progress Notes * Saeid Dawson RN - 07/22/2023 9:36 AM EDT Bessie Audrey Levy presented in clinic today for a removal of her sutures. Sutures removed without difficulty, wound well-approximated with skin color appropriate to ethnicity. Steri-strips and Mastisol applied following removal. Nurse reviewed signs and symptoms of wound infection with Yunior La verbalized understanding. documented in this encounter Plan of Treatment Upcoming Encounters Date Type Department Care Team (Late st Contact Info) Description 12/24/2023 10:00 AM EDT [place] [phone] Tereso Mohan MD [facility] [place] [address] 12/24/2023 10:30 AM EDT Appointment XRay at [address] [place] [address] Shelby Aaron, SEL[facility] [place] [address] 12/24/2023 11:30 AM EDT Office Visit [facility] [place] [address] Shelby Aaron, SELVIN [facility] [place] [address] documented as of this encounter Visit Diagnoses Not on filedocumented in this encounter Care Teams Mason Tender [employer]oration Labor Relationship Specialty Start Date End Date Lilian Julien, BOTTLE LABELER Nidhi [address] [facility] [place] [address] PCP - General Family Medicine 03/12/23 documented as of this encounter
--- OUTSIDE RECORDS SUMMARY | 2023-11-16 14:10 | XMS_ITS | Encounter Summary ---
[place] [address] Care Team Providers Care Propeller Mechanic Name Role Phone Wily Lilian Hicks APRN Primary Care Provider [phone] Encounter Details Date Type Department Care Team (Late st Contact Info) Description 06/06/2023 Telephone [facility] [place] [phone] Charly Wilkins MD [facility] [place] [address] Social History Tobacco Use Types Packs/Day Years [...] place to sleep or slept in a fdc (including now)? No 03/13/2022 IPV Inpatient Questions Answer Date Recorded Does [...] 10:00 AM EDT [place] [address] Tereso Mohan MD [facility] [place] [address] 12/24/2023 10:30 AM EDT Appointment XRay at [address] [place] [phone] Shelby Aaron APRN [facility] [place] [address] 12/24/2023 11:30 AM EDT Office Visit [facility] [place] [address] Shelby Aaron APRN [facility] [place] [address] documented as of this encounter Visit Diagnoses Not on filedocumented in this encounter Care Teams Propeller Mechanic Relationship Specialty Start Date End Date Lilian Julien APRN [place] [address] PCP - General Family Medicine 03/12/23 documented as of this encounter
--- OUTSIDE RECORDS SUMMARY | 2023-11-16 14:10 | XMS_ITS | Encounter Summary ---
[place] [address] Care Team Providers Care Glass Beveller Name Role Phone Lilian Julien APRN Primary Care Provider [phone] Reason for Visit * Auth/Cert (Routine) Specialty [...] OPTIME, ANCHOR/SCREW FOR OPPOSING BN-TO-BN OR SOFT [id number] (IMPLANTABLE) @ARTHRODESIS, POSTERIOR CERVICAL SPINE (WRVU 17.4) Charly Wilkins MD [facility] [place] [place] [address] [facility] Referral ID Status Reason Start Date Expiration Date Visits Re quested Visits Authorized [id number] 1 1 Encounter Details Date Type Department Care Team (Late st Contact Info) Description 06/10/2023 11:45 AM EDT - 06/10/2023 3:30 PM EDT Surgery [place] [address] Charly Wilkins MD [facility] [place] [place] [address] @ARTHRODESIS, POSTERIOR CERVICAL SPINE (WRVU 17.4) Social History Tobacco Use Types Packs/Day Years Used Date Smoking Tobacco: Never Smokeless Tobacco: Never Comments:vapes but not nicot ine Alcohol Use Standard Drinks/Week Comments Never 0 (1 standard drink = 0.6 oz pur e alcohol) [facility] Utilities Answer Date Recorded In the [...] Sign Reading Time Taken Comments Blood Pressure 139/87 06/10/2023 10:02 AM EDT Pulse 78 06/10/2023 10:02 AM EDT Temperature 36 ??C (96.8 ??F) 06/10/2023 10:02 AM EDT Respiratory Rate 16 06/10/2023 10:02 AM EDT Oxygen Saturation 98% 06/10/2023 10:02 AM EDT Inhaled Oxygen Concentration - - Weight 90.5 kg (199 lb 9.6 oz) 06/10/2023 10:02 AM EDT Height 154.9 cm (5' 1) 06/10/2023 10:02 AM EDT Body Mass Index 37.71 06/10/2023 10:02 AM EDT documented in this encounter Discharge Summaries * Grazyna Grossman, BILLPOSTING SUPERVISOR - 06/11/2023 12:08 PM EDT Discharge Summary Patient Name: Bessie Levy Patient Age: 37 y.o. Language: [place] Race: White Ethnicity: Not nor Admit date: 06/10/2023 Discharge date and time: 06/11/2023 Attending Physician: Charly Wilkins MD Discharge Physician: Charly Wilknis MD Follow-up Recommendations for Providers: Will resume daily Aspirin on 06/14/23. See discharge instructions for additional details. Future Appointments Date Time Provider Department Center 07/09/2023 1:30 PM [facility] DX ROOM 2 MH Xray [facility] Rad 07/09/2023 2:20 PM Charly Wilkins MD [facility] Pain Sp [facility] Inpatient Provider Contact Information: Charly Wilkins MD Spine Center: [phone] After hours and weekends, call [facility] Scale Mechanic, , and have the Orthopedic resident paged. [...] The patient was instructed to wear a [place] J at all times. These parameters were [...] POD#1 Hgb 13.0, down from 15.1 on 324, prior to surgery. Hemoglobin drop associated with [...] Weight: Wt Readings from Last 1 Encounters: 04/08/ 90.5 kg (199 lb 9.6 oz) Height: [...] who have questions please contact the health resident care aid that requested your imaging first. Cervical Spine 1 View Result Date: 06/11/2023 [...] who have questions please contact the health resident care aid that requested your imaging first. DOC: TELEMETRY STRIPS Result Date: 06/10/2023 Ordered [...] who have questions please contact the health resident care aid that requested your imaging first. Pending Studies and Lab Data at Discharge: None Transfusions: No Discharge Conditions/Prognosis: Stable, awake, and alert. Mobilizing as noted above, pain controlled on oral medications. Discharge to: Home with family. Updated Allergies/ADRs: Allergies Allergen Reactions Depakote [Divalproex] Other (See Comments) Edema Immunizations Given this Hospitalization: Immunization History Administered Date(s) Administered Influenza (Novel [id number]) Injectable 04/26/2009 Influenza Vaccine, Whole 04/26/2009 Discharge [...] them. 3. You should also take an bnig-gij-cbsakxp stool softener or laxative, such as Lili-colace [...] please contact the Spine Center Prescription Lineat [phone]. PRESCRIPTION RENEWAL REQUESTS CAN TAKE UP TO 3 DAYS TO FILL. Be sure to allow for this when requesting a new prescription. The new prescription will be sent electronically to your preferred pharmacy. 5. You may resume your usual daily Aspirin on 06/14/23. [place] J Collar Instructions: 1. You are being [...] against the skin, please call the Spine [place] [facility] Line at the number below. 5. [...] has completely healed. PLEASE CALL US AT [phone] TO SPEAK WITH A SPINE CENTER NURSE [...] Numbers: Clinical issues, nurse questions, medication renewals: [phone] Wilkins: [phone] Evenings after 5pm and weekends you may contact the Orthopaedic resident elevator constructor helper: [phone], askthe air hoist operator to page the Orthopaedic resident Follow Up Appointments: 1. You will have follow-up appointments at [facility] as indicated in the ???Future Appointments and [...] on the next business day. Please call [phone] if you do not hear from us by that time, as your timely follow-up is very important to us. Future Appointments Date Time Provider Department Center 07/09/2023 1:30 PM [facility] DX ROOM 2 MH Xray [facility] Rad 07/09/2023 2:20 PM Charly Wilkins MD [facility] Pain Sp [facility] General Instructions None Future Appointments and Orders Future Appointments and Orders Future Appointments Provider Department Dept Phone 07/09/2023 1:30 PM [facility] DX ROOM 2 XRay at [facility] Arrive at: [facility] [phone] Please go to [facility] ([place] Location). 07/09/2023 2:20 PM Charly Wilkins MD [facility] and Spine Center at [facility] Arrive at: [facility] [phone] Primary Care Provider: Lilian Julien APRN [phone] Discharge References/Attachments None documented in this encounter Discharge Instructions * Patient Instructions* Grazyna Grossman APRN - 06/11/2023 12:12 PM EDT Orthopaedic Spine [...] them. 3. You should also take an mzoe-ttc-mjkghlx stool softener or laxative, such as Lili-colace [...] please contact the Spine Center Prescription Lineat [phone]. PRESCRIPTION RENEWAL REQUESTS CAN TAKE UP TO 3 DAYS TO FILL. Be sure to allow for this when requesting a new prescription. The new prescription will be sent electronically to your preferred pharmacy. 5. You may resume your usual daily Aspirin on 06/14/23. [place] J Collar Instructions: 1. You are being [...] against the skin, please call the Spine [place] [facility] Line at the number below. 5. [...] has completely healed. PLEASE CALL US AT [phone] TO SPEAK WITH A SPINE CENTER NURSE [...] Numbers: Clinical issues, nurse questions, medication renewals: [phone] Wilkins: [phone] Evenings after 5pm and weekends you may contact the Orthopaedic resident elevator constructor helper: [phone], askthe air hoist operator to page the Orthopaedic resident Follow Up Appointments: 1. You will have follow-up appointments at [facility] as indicated in the ???Future Appointments and [...] on the next business day. Please call [phone] if you do not hear from us by that time, as your timely follow-up is very important to us. Future Appointments Date Time Provider Department Center 07/09/2023 1:30 PM [facility] DX ROOM 2 Xray [facility] Rad 07/09/2023 2:20 PM Charly Wilkins MD [facility] Pain Sp [facility] documented in this encounter Medications at Time [...] this encounter Progress Notes * Grazyna Grossman, BILLPOSTING SUPERVISOR - 06/11/2023 4:10 PM EDT 06/11/23 1545 Posterior mid upper back SUELLEN drain removed without difficulty. Small dry sterile dressing to site. Ten holes present end of drain tubing verified by Carson Paul MD. Posterior mid neck silver Mepilex dressing remained dry and intact. Tolerated well. Grazyna Grossman APRN Inpatient Orthopaedics Pager [phone] * Henry Eubanks MD - 06/11/2023 6:20 [...] difficulty swallowing. Pre-op symptoms: 4/5 wrist flexors/extensors, intrinsics/development professional Pre-op symptoms currently present: Feel numbness on hand, no sensory loss on exam, motor still 4/5 on wrist flexors/extensors, intrinsic/development professional FOCUSED REVIEW OF SYSTEMS: as above. Active [...] mg sodium chloride 0.9% 1,000 mL (06/11/23 2114) OBJECTIVE: Temp: [36 ??C (96.8 ??F)-36.8 ??C [...] Time Provider Department Center 07/09/2023 1:30 PM [facility] DX ROOM 2 Xray [facility] Rad 07/09/2023 2:20 PM Charly Wilkins MD [facility] Pain Sp [facility] Associated attestation - Charly Wilkins MD - 06/11/2023 8:06 AM EDT Patient doing well this morning. No longer burning in the hands but has some numbness. Collar in place. Well-fitting. Able to lift his hands above her head. Neurologically intact. No increase in clonus. Mobilize today. Charly Wilkins MD [facility] Spine Surgery - Department of Orthopaedic Surgery Mechanical Process Engineer - Department of Orthopedic Surgery / Academics and Research Straightener And Aligner Professor - [facility] 06/11/2023 * Andrew Deras RN - 06/10/2023 11:02 PM EDT [facility] Short Stay Unit Transfer to Inpatient Note [...] difficulty swallowing. Pre-op symptoms: 4/5 wrist flexors/extensors, intrinsics/development professional Pre-op symptoms currently present: Feel numbness on hand, no sensory loss on exam, motor still 4/5 on wrist flexors/extensors, intrinsic/development professional FOCUSED REVIEW OF SYSTEMS: as above. Active [...] Time Provider Department Center 07/09/2023 1:30 PM [facility] DX ROOM 2 MH Xray [facility] Rad 07/09/2023 2:20 PM Charly Wilkins MD [facility] Pain Sp [facility] * Domi Carrillo RN - 06/10/2023 6:45 PM EDT Patient admitted to PACU. Hand off received from Esthela Lange CRNA. care assumed. Assessments as documented. Monitors on, alarms audible and individualized to patient. 2029 PACU D/C criteria met 2199 Hand off to ARLETTE Moreno * Charly Wilkins MD - 06/10/2023 5:47 PM EDT Images from the original note were not included. [place] [facility] Charly Wilkins MD [place] Lilian Julien, BILLPOSTING SUPERVISOR [address] [facility] [id number] Re: Post- Operative correspondence. Dear Colleagues, I hope all is well. 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 BaselineMSK exam: Sensation decreased in the hands bilaterally in fingers 2-5, otherwise intact light touch throughout upper and lower extremities. UE 5/ 5 strength deltoid, biceps, triceps, but 4/5 wrist flexors, extensors, and interosseous/development professional. LE 5/5 strength in hip flexors, quads, [...] patient's care. Warm Regards, Charly Wilkins MD [facility] Department of Orthopedic Surgery Mechanical Process Engineer Orthopedics Academics and Research Electric Furnace Operator - [facility] 06/10/2023 documented in this encounter H&P Notes [...] 01/04/2020 Added automatically from request for surgery [id number] Transfusion history 2002 Past Surgical History: Procedure Laterality Date CARDIAC SURGERY ASD repair at [facility] 2002 PRO ALLOGRAFT FOR SPINE SURGERY ONLY MORSELIZED Bilateral 01/05/2022 ALLOGRAFT FOR SPINE SURGERY ONLY; MORSELIZED (WRVU *) performed by Charly Wilkins MD at [facility] MAIN OR PRO ARTHRODESIS COMBINED TECHNIQUE 1 INTERSPACE LUMBAR Bilateral 01/05/2022 ARTHRODESIS, COMB. POST OR POSTEROLAT W/LAMI &/OR DISC SINGLE INTERSPACE; LUMBAR (WRVU 27.75) performed by Charly Wilkins MD at [facility] MAIN OR PRO ARTHRODESIS POSTERIOR/PSTLAT TECHNIQUE 1 INTERSPACE LUMBAR Bilateral 01/05/2022 ARTHRODESIS, LUMBAR SPINE, SINGLE INTERSPACE (WRVU 23.53) [facility] AUTOGRAFT SPINE SURGERY LOCAL FROM SAME INCISION Bilateral 01/05/2022 AUTOGRAFT FOR SPINE SURGERY ONLY, SAME INCISION (WRVU *) performed by Charly Wilkins MD at [facility] MAIN OR PRO INJECTION DX/THER SBST INTRLMNR LMBR/SAC W/IMG GDN Midline 05/18/2021 INJECTION, EPIDURAL, LUMBAR OR SACRAL (CAUDAL), WITH IMAGING GUIDANCE (WRVU 1.8) performed by Sarah Munguia MD at [facility] PAIN MGMT MSO PRO LAMINEC/FACETECT/FORAMIN, LUMBAR 1 SEG Bilateral 01/05/2022 LAMINECTOMY, FACETECTOMY & FORAMINOTOMY,LUMBAR, ONE LEVEL (WRVU 15.37) performed by Charly Wilkins MD at [facility] MAIN OR PRO POSTERIOR NON-SEGMENTAL INSTRUMENTATION Bilateral 01/05/2022 POSTERIOR SPINAL NON-SEGMENTAL INST.(ONE SPACE) (WRVU 12.52) performed by Charly Wilkins MD at [facility] MAIN OR PRO STEROTACTIC CPTR ASSTD PX SPINAL Bilateral 01/05/2022 STEREOTACTIC COMPUTER-ASSTD NAVIGATIONAL SPINAL (WRVU 3.75) performed by Charly Wilkins MD at [facility] MAIN OR Home Medications: Medications Prior to [...] triceps, but 4/5 wrist flexors, extensors, and interosseous/development professional. LE 5/5 strength in hip flexors, quads, [...] marked. Henry Eubanks MD Orthopaedic Surgery Pager: [phone] Associated attestation - Charly Wilkins MD - 06/10/2023 5:46 PM EDT Patient seen holding area prior to surgery. Risks and benefits were discussed including CSF leak, persistent symptoms, infection as well as others. Reviewed current symptoms with patient. Discussed surgical procedure. Reviewed consents. All questions answered. Other person present: No other person present Plan discussed with OR team and anesthesia. Charly Wilkins MD [facility] Manager Fast Food - Orthopedic Spine Surgery Mechanical Process Engineer - Department of Orthopedic Surgery / Academics and Research Electric Furnace Operator - [facility] documented in this encounter Procedure Notes * Guy Nina MD - 06/10/2023 5:30 PM EDT [facility] INTRAOPERATIVE MONITORING REPORT Name: Bessie Levy : [...] ipsilateral first dorsalinterosseous pickup, respectively. CPT Codes: 76419 (EEG); 76587 (EMG two limbs); 24913 (limited EMG 2 limbs); 43732 (TOF, 4 nerves); 19433 (upper & lower MEP); 17541 (upper and lower SSEP bilateral); Total IOM [...] Nina MD; Mora Jaimes PhD, CN; Joss FRY Anesthesia: Propofol, no muscle relaxant after intubation. [...] in Clinical Neurophysiology (ABPN) Department of Neurology [facility] CC: Charly Wilkins MD documented in [...] Component Value Date COVID19 Not Detected 07/07/2021 [id number] Not Detected 07/04/2021 Past medical History: Past Medical History: Diagnosis Date s/p L4-5 decompression, PSIF Dr. Wilkins 01/04/2020 Added automatically from request for surgery [id number] Transfusion history 2002 Hospitalizations Within the Past 30 Days: no previous admission in last 30 days Current Decision-Making Capacity: Self If AD's have not been completed the following surrogate would be Mother/ Lori Forbes surrogate decision maker per [place] surrogate decision making law. (Only good for 180 days) Any patient receiving care in [place] must abide by [place] law. The hierarchy for surrogate decision making [...] (i) The agent with financial power of trademark attorney or a conservator appointed in accordance with [...] No In the past 12 months has the [employer], gas, oil, or water [employer] threatened to shut off services in your [...] rolling, shower chair Home Address confirmed as: [facility] [address] [address] Social & Family Supports: All names listed below confirmed with patient as current and correct Extended Emergency Contact Information Primary Emergency Contact: Minoo Forbes Mobile Relation: Mother Secondary Emergency Contact: Juan [facility] Mobile Relation: Friend Current Care Provided [...] 2023. She has applied for SSDI through [place]. She is awaiting a response. Health/Prescription Coverage: Primary Insurance: [place] Payor[place] / Plan: [place] PRIMARY CARE PLUS / Product Type: *No Product type* / Secondary Insurance: N/A ; Prescription Coverage: Yes Preferred Pharmacy: [id number] - [place], [place] - [address] AT [address] OF [facility] [facility] [phone] [id number] - [place] - [address] [facility] [address] [phone] [id number] - [place], [place] - [address] [address] [place] Status: Patient is a : No Primary Care Provider confirmed: Lilian Julien, BILLPOSTING SUPERVISOR [phone] Patient/Caregiver Goals of Treatment: Return home Potential [...] not currently employed and currently is on [employer]. Pt has applied for [facility]/[place] and is awaiting a decision. Pt does not have an AD on file. SDM: mother/Minoo Forbes @ [phone]. Pt lives in a two story home. [...] Pt has no questions or concerns for CLINICAL TRAINING COORDINATOR at this time. CLINICAL TRAINING COORDINATOR will f/u with CM. Plan: A member of the Care Management team will continue to monitor progress, follow for continuityof care and assist with transition of care planning. ADARSH Khoury Trauma Production Superintendent Office of Care Management [phone] * Initial Assessments - Mae Quiles OT - 06/11/2023 10:16 AM EDT Occupational Therapy Evaluation Patient profile: Bessie Levy is a 37 yrs female admitted on 06/10/2023 9:39 AM. Pt s/p C5-T1 posterior decompression/fusion. Past medical history: Past Medical History: Diagnosis Date s/p L4-5 decompression, PSIF Dr. Wilkins 01/04/2020 Added automatically from request for surgery [id number] Transfusion history 2002 Past surgical history: Past Surgical History: Procedure Laterality Date CARDIAC SURGERY ASD repair at [facility] 2002 PRO ALLOGRAFT FOR SPINE SURGERY ONLY MORSELIZED Bilateral 01/05/2022 ALLOGRAFT FOR SPINE SURGERY ONLY; MORSELIZED (WRVU *) performed by Charly Wilkins MD at [facility] MAIN OR PRO ARTHRODESIS COMBINED TECHNIQUE 1 INTERSPACE LUMBAR Bilateral 01/05/2022 ARTHRODESIS, COMB. POST OR POSTEROLAT W/LAMI &/OR DISC SINGLE INTERSPACE; LUMBAR (WRVU 27.75) performed by Charly Wilkins MD at [facility] MAIN OR PRO ARTHRODESIS POSTERIOR/PSTLAT TECHNIQUE 1 INTERSPACE LUMBAR Bilateral 01/05/2022 ARTHRODESIS, LUMBAR SPINE, SINGLE INTERSPACE (WRVU 23.53) [facility] AUTOGRAFT SPINE SURGERY LOCAL FROM SAME INCISION Bilateral 01/05/2022 AUTOGRAFT FOR SPINE SURGERY ONLY, SAME INCISION (WRVU *) performed by Charly Wilkins MD at [facility] MAIN OR PRO INJECTION DX/THER SBST INTRLMNR LMBR/SAC W/IMG GDN Midline 05/18/2021 INJECTION, EPIDURAL, LUMBAR OR SACRAL (CAUDAL), WITH IMAGING GUIDANCE (WRVU 1.8) performed by Sarah Munguia MD at [facility] PAIN MGMT MSO PRO LAMINEC/FACETECT/FORAMIN, LUMBAR 1 SEG Bilateral 01/05/2022 LAMINECTOMY, FACETECTOMY & FORAMINOTOMY,LUMBAR, ONE LEVEL (WRVU 15.37) performed by Charly Wilkins MD at [facility] MAIN OR PRO POSTERIOR NON-SEGMENTAL INSTRUMENTATION Bilateral 01/05/2022 POSTERIOR SPINAL NON-SEGMENTAL INST.(ONE SPACE) (WRVU 12.52) performed by Charly Wilkins MD at [facility] MAIN OR PRO STEROTACTIC CPTR ASSTD PX SPINAL Bilateral 01/05/2022 STEREOTACTIC COMPUTER-ASSTD NAVIGATIONAL SPINAL (WRVU 3.75) performed by Charly Wilkins MD at [facility] MAIN OR Subjective: Pt received semi-fowlers in bed with [place] C-collar donned. Pt agreeable to OT evaluation [...] and two teenage daughters. Pt's boyfriend works environmental department manager, when he is at work she report she can call her neighbor to come help. DME: RW Rolator Shower chair Tub grab bar Crutches ?maybe bedside commode Baseline ADL/Mobility: Pt is independent at baseline without DME/AD and drives. 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 Precautions/Special Considerations: Falls, Spinal, [place] c-collar, regular diet Objective: Seen today for [...] Minutes, Occupational Therapy: 38 (1 eval mod [id number]) Planned OT interventions: Role of occupational therapy/rehabilitation, [...] OTR/L Occupational Therapy Rehabilitation Department Pager # [phone] * Initial Assessments - Tatum Osborne, PT [...] triceps, but 4/5 wrist flexors, extensors, and interosseous/development professional. LE 5/5 strength in hip flexors, quads, hamstrings, EHL, anterior tib, pronation of the ankles. Reflexes symmetric in upper and lower extremities though increased. Positive Delgado's bilaterally Patient with the following active problems: Past Medical History: Diagnosis Date s/p L4-5 decompression, PSIF Dr. Wilkins 01/04/2020 Added automatically from request for surgery [id number] Transfusion history 2002 Past Surgical History: Procedure Laterality Date CARDIAC SURGERY ASD repair at [facility] 2002 PRO ALLOGRAFT FOR SPINE SURGERY ONLY MORSELIZED Bilateral 01/05/2022 ALLOGRAFT FOR SPINE SURGERY ONLY; MORSELIZED (WRVU *) performed by Charly Wilkins MD at [facility] MAIN OR PRO ARTHRODESIS COMBINED TECHNIQUE 1 INTERSPACE LUMBAR Bilateral 01/05/2022 ARTHRODESIS, COMB. POST OR POSTEROLAT W/LAMI &/OR DISC SINGLE INTERSPACE; LUMBAR (WRVU 27.75) performed by Charly Wilkins MD at [facility] MAIN OR PRO ARTHRODESIS POSTERIOR/PSTLAT TECHNIQUE 1 INTERSPACE LUMBAR Bilateral 01/05/2022 ARTHRODESIS, LUMBAR SPINE, SINGLE INTERSPACE (WRVU 23.53) [facility] AUTOGRAFT SPINE SURGERY LOCAL FROM SAME INCISION Bilateral 01/05/2022 AUTOGRAFT FOR SPINE SURGERY ONLY, SAME INCISION (WRVU *) performed by Charly Wilkins MD at [facility] MAIN OR PRO INJECTION DX/THER SBST INTRLMNR LMBR/SAC W/IMG GDN Midline 05/18/2021 INJECTION, EPIDURAL, LUMBAR OR SACRAL (CAUDAL), WITH IMAGING GUIDANCE (WRVU 1.8) performed by Sarah Munguia MD at [facility] PAIN MGMT MSO PRO LAMINEC/FACETECT/FORAMIN, LUMBAR 1 SEG Bilateral 01/05/2022 LAMINECTOMY, FACETECTOMY & FORAMINOTOMY,LUMBAR, ONE LEVEL (WRVU 15.37) performed by Charly Wilkins MD at [facility] MAIN OR PRO POSTERIOR NON-SEGMENTAL INSTRUMENTATION Bilateral 01/05/2022 POSTERIOR SPINAL NON-SEGMENTAL INST.(ONE SPACE) (WRVU 12.52) performed by Charly Wilkins MD at [facility] MAIN OR PRO STEROTACTIC CPTR ASSTD PX SPINAL Bilateral 01/05/2022 STEREOTACTIC COMPUTER-ASSTD NAVIGATIONAL SPINAL (WRVU 3.75) performed by Charly Wilkins MD at [facility] MAIN OR Social History: Lives With: significant [...] Equipment needs: Patient has all necessary equipment 2017 PT Evaluation Code Rationale: Diagnosis & Pertinent [...] EvalLuzmaria Osborne, PT DPT She/Her 06/11/2023 Pager: [phone] Physical Therapy Inpatient Rehabilitation Department * Plan of Care - Jillian Carolina RN - 06/11/2023 4:05 AM EDT OUTCOME EVALUATION NOTE: OUTCOME SUMMARY: Pt A&O x 4, 3 liters nasal cannula oxygen. Last BM was on 06/09/23. Pt voiding adequately with omer catheter draining to urine bag. With C-Collar in placed. [place] the pt how to call for help [...] Masimo, Purposeful Rounding, Nurse Knowledge Exchange Jillian Carolina, ARLETTE Problem: Adult Inpatient Plan of Care Goal: [...] Operative Note Patient Name: Bessie Levy : [id number] MR#: [id number] Case Date: 06/10/2023 Surgeon: Surgeon(s) and Role: [...] Wilkins MD - 06/10/2023 2:53 PM EDT [facility] Operative Note Patient Name: Bessie Levy : [id number] MR#: [id number] Case Date: 06/10/2023 Surgeon: Surgeon(s) and Role: [...] of Sutherland tongs. 6. Neuro monitoring. Instrumentation: Medtronic posterior cervical Patient was brought back to [...] 10:00 AM EDT [place] [address] Tereso Mohan MD [facility] [place] [address] 12/24/2023 10:30 AM EDT Appointment XRay at [address] [place] [phone] Shelby Aaron APRN [facility] [place] [address] 12/24/2023 11:30 AM EDT Office Visit [place] [address] Shelby Aaron APRN [facility] [address] documented as of this encounter Procedures Procedure [...] with myelopathy Sterotactic Cptr Asstd Px Spinal ([id number]) 06/10/2023 1:21 PM EDT Cervical spondylosis with myelopathy MODIFIER,STEALTH 3 W/O KINEVO,CRANI/SPINE ONLY 06/10/2023 1:21 PM EDT Cervical spondylosis with myelopathy MODIFIER LEVO HEAD POSITIONER SPINE 06/10/2023 1:21 PM EDT Cervical spondylosis with myelopathy MODIFIER, O-ARM, MOR 06/10/2023 1:21 PM EDT Cervical spondylosis with myelopathy MODIFIER,POSTERIOR CERVICAL INFINITY MEDTRONIC 06/10/2023 1:21 PM EDT Cervical spondylosis with myelopathy Apply/Remove Cranial Fix Dev ([id number]) 06/10/2023 1:21 PM EDT Cervical spondylosis with myelopathy Allograft For Spine Surgery Only Morselized ([id number]) 06/10/2023 1:21 PM EDT Cervical spondylosis with myelopathy Autograft Spine Surgery Local From Same Incision ([id number]) 06/10/2023 1:21 PM EDT Cervical spondylosis with myelopathy Mccormick Facetectomy&Foramot 1 Vrt Sgm Ea Addl Sgm ([id number]) 06/10/2023 1:21 PM EDT Cervical spondylosis with myelopathy Laminec/Facetect/Forami n, Cervical 1 Seg ([id number]) 06/10/2023 1:21 PM EDT Cervical spondylosis with myelopathy Posterior Segmental Instrumentation 3-6 Vrt Seg ([id number]) 06/10/2023 1:21 PM EDT Cervical spondylosis with myelopathy Arthrodesis Posterior/Pstlat Technique 1 Interspace Lumbar, Ea Add'L Interspace ([id number]) 06/10/2023 1:21 PM EDT Cervical spondylosis with myelopathy Arthrodesis, Post/Posterolat Tq, Sngle Interspace; Cervical Below C2 Segmnt ([id number]) 06/10/2023 1:21 PM EDT Cervical spondylosis with [...] LABORATORY Neutrophil Absolute 14.13(H) 1.70 - 6.10 x10(3)/ L [facility] Lymph % 7.2 % [facility] Lymphocytes Abs 1.2 0.9 - 3.2 x10(3)/[facility] LABORATORY Monocyte % 7.6 % [facility] Monocyte Abs 1.3(H) 0.3 - 0.9 x10(3)/[facility] LABORATORY Eos % 0.1 % [facility] Eosinophils Abs 0.0 0.0 - 0.4 x10(3)/[facility] LABORATORY Basophil % 0.2 % [facility] Baso Absolute 0.0 0.0 - 0.1 x10(3)/[facility] LABORATORY Immature Gran % 0.70 % [facility] Comment: Immature granulocytes(IG's)percentage and absolute count will include metamyelocytes, myelocytes, and promyelocytes. Blood smears from CBCs yielding IG's will be scanned manually for concordance. If this scan disagrees with the automated IG or if promyelocytes are noted, a manual differential will be performed. Immature Gran Absolute 0.11(H) 0.00 - 0.04 x10(3)/ L [facility] Blood 06/11/2023 2:33 AM EDT 06/11/2023 2:46 AM EDT Narrative Resulting Agency Comment Spec In Lab Henry Eubanks MD HEMATOLOGY ORDERABLE S [facility] [place] [address] * (ABNORMAL) Hemogram (06/11/2023 2:33 AM EDT) [facility] White Blood Cell 16.8(H) 4.0 - 9.5 x10(3)/mc L [facility] Red Blood Cell 4.32 4.00 - 5.21 x10(6)/mc L [facility] Hemoglobin 13.0 [...] RDW Standard Deviation 38.5 37.0 - 46.0 [facility] LABORATORY RDW coefficient of variation 12.0 11.5 - 14.1 % [facility] Mean Platelet Volume 8.6 7.6 - 12.9 fL [facility] NRBC% auto 0.0 % [facility] NRBC Absolute 0.000 0.000 - 0.000 x10(3)/ L [facility] Blood 06/11/2023 2:33 AM EDT 06/11/2023 2:46 AM EDT Narrative Resulting Agency Comment Spec In Lab Henry Eubanks MD HEMATOLOGY ORDERABLE S [facility] [place] [address] * (ABNORMAL) Basic Metabolic Panel (non-fasting) (06/11/2023 2:33 AM EDT) [facility] Glucose 133 65 - 199 mg/dL [facility] [...] MD CHEMISTRY ORDERABLES [facility] [place] [address] * XR Cervical Spine 2 or 3 [...] who have questions please contact the health resident care aid that requested your imaging first. ? Narrative 06/11/2023 10:27 AM EDT EXAMINATION: XR [...] patients who have questions please contactthe health resident care aid that requested your imaging first. Charly Wilkins MD IMG DX ORDERABLES * [...] MEDICAL CENTER LAB[facility]ORY FIO2 Art 83 % [facility] Flow Art 2.0 LPM [facility] PF Ratio Art 401 [facility] Temp Art 36.0 Celsius [facility] Blood 06/10/2023 3:18 PM EDT 06/10/2023 3:18 PM EDT Charly Wilkins MD POINT OF CARE TEST O RDERABLES [facility] [place] [address] * XR Cervical Spine 1 View (06/10/2023 [...] who have questions please contact the health resident care aid that requested your imaging first. ? Narrative 06/11/2023 8:18 AM EDT EXAMINATION: XR [...] probe are partially included. Procedure Note Daniel Moneg MD - 06/11/2023 EXAMINATION: XR CERVICAL SPINE [...] patients who have questions please contactthe health resident care aid that requested your imaging first. Charly Wilkins MD IMG DX ORDERABLES * SCAN DOC: IMPLANTABLE DEVICES (06/10/2023 12:00 AM EDT) Narrative 06/10/2023 12:00 AM EDT Ordered by an unspecified provider. Scanning Provider MEDIA MGR SCAN EXT O RDR/RSLT * Type and Screen Future Surgery, [facility] SAME DAY PROGRAM ONLY) (05/21/2023 1:37 PM EDT) [facility] Type [facility] Patient BB History Found [facility] Expires at 2359 on: 06/13/2023 [facility] Ab Screen Interp Negative [facility] Blood 05/21/2023 1:37 PM EDT 05/21/2023 1:37 PM EDT Narrative Resulting Agency Comment Spec In Lab Charly Wilkins MD BLOOD BANK LAB ORDER [place]O [facility] [place] [address] documented in this encounter Visit Diagnoses Diagnosis Osteoarthritis of cervical spine with myelopathy Cervical spondylosis with myelopathy Osteoarthritis of cervical spine with myelopathy Cervical spondylosis with myelopathy documented in this encounter Admitting Diagnoses Diagnosis S/P cervical spinal fusion Arthrodesis status documented in this encounter Administered Medications Inactive Administered Medications - up to 3 most recent administrations Medication Order MAR Action Action Date Dose Rate Site acetaminophen (Tylenol) tablet 975 mg 975 mg, [...] Given 06/11/2023 10:32 AM EDT 2 mg bacitracin zinc-polymyxin B (Polysporin) ointment PRN, Starting on Sat06/10/23 at 1552, Until Sat06/11/23 at 1833, Intra-Operative (Intra-Procedure) Given 06/10/2023 3:52 PM EDT 1 g 20-Other (document in comment section) BUpivacaine-EPINEPHrine (Marcaine-epiNEPHrine (PF)) 0.25 %-1:200,000 injection PRN, Starting on Sat06/10/23 at 1551, Until Sat06/11/23 at 1833, Intra-Operative (Intra-Procedure), Routine Given 06/10/2023 3:51 PM EDT 30 mLs 19- Surgical Site cloBAZam (Onfi) tablet 10 mg 10 mg, [...] Given 06/10/2023 10:15 PM EDT 300 mg gelatin adsorbable 100 (Gelfoam) sponge PRN, Starting on Sat06/10/23 at 1551, Until Sat06/11/23 at 1833, Intra-Operative (Intra-Procedure), Routine Given 06/10/2023 3:51 PM EDT 1 each 19- Surgical Site lidocaine (Lidoderm) 5% patch 1 patch 1 [...] 7:13 PM EDT 1,000 mLs 100 mL/hr thrombin (Bovine) (Thrombinar) kit PRN, Starting on Sat06/10/23 at 1551, Until Sat06/11/23 at 1833, Intra-Operative (Intra-Procedure) Given 06/10/2023 3:51 PM EDT 20,000 Units 19- Surgical Site vancomycin (Vancocin) injection PRN, Starting on Sat06/10/23 at 1551, Until Sat06/11/23 at 1833, Intra-Operative (Intra-Procedure), Routine Given 06/10/2023 3:51 PM EDT 1 g 19- Surgical Site documented in this encounter Active and Recently [...] Suspected): Prophylaxis 194 (New Bag - Provider: oDmi Carrillo RN)2009 (Stopped - Provider: Domi Carrillo RN) 014 (New Bag - Provider: Jillian Carolina RN)0218 (Stopped - Provider: Jillian Carolina RN)1026 (New Bag - Provider: Sana Yost)1056 (Stopped [...] Provid er: Jillian Carolina RN - Comment: leti Pereyra RN) cloBAZam (Onfi) tablet 20 mg 20 mg, Oral, NIGHTLY, First dose on Sat06/10/23 at 2100, Until Discontinued, Routine 2233 (Given - Provider: Andrew Deras RN) droNABinol [...] blood pressure less than 120 , Routine 622 (Given - Provid er: Jillian Carolina RN) magnesium oxide (Mag-Ox) tablet 200 mg 200 mg, Oral, 2 TIMES DAILY, First dose on Sat06/10/23 at 2215, Until Discontinued 2214 (Given - Provider: Andrew Deras RN) 1027 (Given - Provider: Sana Yost) polyethylene [...] Reason: Patient/family refused) 1027 (Given - Provider: aSna Yots) sertraline (Zoloft) tablet 100 mg 100 mg, Oral, DAILY, First dose on Sat06/11/23 at 0900, Until Discontinued, Routine 1026 (Given - Provid er: Sana Yost) sodium chloride 0.9 % (flush) (BD PosiFlush Normal Saline 0.9) flush 5 mL 5 mL, Intravenous, 2 TIMES DAILY, First dose on Sat06/10/23 at 2215, Until Discontinued, Recovery (Recovery-Hospital Unit), Routine 2215 (Given - Provider: Andrew Deras, ARLETTE) 0900 [...] Carolina, ARLETTE)0957 (Paused - Provider: Melvina Brooks, ARLETTE - Comment: working with PT/OT)1030 (Restarted - Provider: Melvina Brooks, ARLETTE)1833 (Due: Stopped) tranexamic acid (Cyklokapron) (100 mg/mL) [...] 1551 (Given - Provider: Charly Wilkins MD) HYDROmorphone [...] RN)0623 (See Alternative - Provider: Jillian Carolina RN)1026 (See Alternative - Provider: Sana Yost)161 (See [...] Alternative - Provider: Domi Carrillo RN) 014 (Given - Provider: Jillian Carolina RN)0623 (Given - Provider: Jillian Carolina RN)1026 (Given - Provider: Sana Yost)1617 (Given - Provider: Sana Yost) oxyCODONE (Roxicodone) tablet 5 mg(Linked Group 2) 5 mg, Oral, EVERY 4 HOURS PRN, Starting on Sat06/10/23 at 1823, Until Sat06/11/23 at 1833, Pain, mild pain (1-3), For mild pain (1-3). Do not exceed 15 mg in 4 hours. If pain not relieved, call provider., Routine 2027 (See Alternative - Provider: Domi Carrillo, ARLETTE) 0147 (See Alternative - Provider: Jillian Carolina, RN)0623 (See Alternative - Provider: Jillian Carolina, ARLETTE)1026 (See Alternative - Provider: Sana Yost)1617 (See Alternative - Provider: Sana Yost) sodium [...] 1741, Until Sat06/10/23 at 2043, Pain, For Moderate to Severe Pain (6-10 [...] Routine documented in this encounter Care Teams Glass Beveller Relationship Specialty Start Date End Date Lilian Julien, BILLPOSTING SUPER[place] [address] PCP - General Family Medicine 03/12/23 documented as of this encounter
--- OUTSIDE RECORDS SUMMARY | 2023-11-16 14:10 | XMS_ITS | Encounter Summary ---
[place] [address] Care Team Providers Care Contracting Specialist Name Role Phone Wily Lilian Hicks APRN Primary Care Provider [phone] Reason for Visit * Reason Onset Date Comments Medication Refill 06/25/2023 Encounter Details Date Type Department Care Team (Late st Contact Info) Description 06/25/2023 Refill [facility] [place] [phone] Susanna Jason LPN Social History Tobacco Use Types Packs/Day Years Used Date Smoking Tobacco: Never Smokeless Tobacco: Never Comments:vapes but not nicot ine Alcohol Use Standard Drinks/Week Comments Never 0 (1 standard drink = 0.6 oz pur e alcohol) [facility] Utilities Answer Date Recorded In the past 12 months has [employer], gas, oil, or water [employer] threatened to shut off services in your [...] place to sleep or slept in a prison (including now)? No 06/11/2023 DH IPV Inpatient [...] Telephone Encounter - Susanna Jason LPN - 06/25/2023 8:58 AM EDT Images from the original note were not included. Acute Opioid Prescribin06/25/2023 06/18/2023 05/28/2023 12/14/2021 Opioid PDMP [place] PDMP Query Date 06/25/2023 06/18/2023 05/28/2023 12/14/2021 Comment As expected No concerns, patient has gotten 2 scripts post op, neither showing up today. Clobazepam anti seizure meds Clobazam 10 mg times 6 months No data to display 05/28/2023 Acute Opioid Specific Questions Date Acute Consent signed 04/30/2023 Bessie is calling s/p 06-10-23 1. Posterior cervical instrumentation C5-T1. 2. Posterior laminectomy C5-6, C6-7 without facetectomy. 3. Posterior cervical athrodesis C5-T1. 4. Application of local autograft and allograft. 5. Application and removal of Sutherland tongs. 6. Neuro monitoring She is weaned down to 1 tab every 4-6 hours mostly afternoon and for sleeping. Pended script to Shelby Aaron APRN Pain averages a 5 documented in this encounter Plan of Treatment Upcoming Encounters Date Type Department Care Team (Late st Contact Info) Description 12/24/2023 10:00 AM EDT Office Visit Neurology at [place] [phone] Tereso Mohan MD [facility] [place] [address] 12/24/2023 10:30 AM EDT Appointment XRay at [address] [place] [phone] Shelby Aaron APRN [facility] [address] 12/24/2023 11:30 AM EDT Office Visit [facility] and Spine Center at [place] [address] Shelby Aaron APRN [facility] [place] [address] documented as of this encounter Visit Diagnoses Not on filedocumented in this encounter Care Teams Contracting Specialist Relationship Specialty Start Date End Date Lilian [place] [address] PCP - General Family Medicine 03/12/23 documented as of this encounter
--- OUTSIDE RECORDS SUMMARY | 2023-11-16 14:10 | XMS_ITS | Encounter Summary ---
[place] [address] Care Team Providers Care Film Writer Name Role Phone Wily Lilian Hicks APRN Primary Care Provider [phone] Encounter Details Date Type Department Care Team (Late st Contact Info) Description 09/10/2023 Telephone [facility] [place] [phone] Kait Ace, RN Social History Tobacco Use Types Packs/Day Years Used Date Smoking Tobacco: Never Smokeless Tobacco: Never Comments:vapes but not nicot ine Alcohol Use Standard Drinks/Week Comments Never 0 (1 standard drink = 0.6 oz pur e alcohol) [facility] Utilities Answer Date Recorded In the past 12 months has [employer] electric, gas, oil, or water company threatened [...] place to sleep or slept in a nursing home (including now)? No 06/11/2023 DH IPV Inpatient [...] Telephone Encounter - Kait Ace RN - 09/13/2023 2:41 PM EDTSumfangy: Called Janice to follow-up on muscle spasms Called Janice to follow-up on muscle spasms and let her know there are no further instructions from Dr. Wilkins. She reports that she is using the muscle relaxer and she is no longer having spasms. She muscles are still sore, but better. Let Janice know that we look forward to seeing her at her follow-up appointment at the end of the month and she can call us in the meantime if she needs us. * Telephone Encounter - Kait Ace RN - 09/10/2023 2:37 PM EDTSummary: New onset of muscle spasms Received call from Ms. Bessiejanuary Levy who calls to report a new onset of neck, back and shoulder spasms that started last night. Janice is s/p C5-T1 posterior decompression and fusion on 06/10/[address] Wilkins. Janice was last seen for a post-op follow-up visit with Shelby Aaron on 07/22/23 at which time it was noted that patient is doing well without any significant complaints of pain or radicular symptoms. Patient wasalso counseled on removing the cervical collar, returning to normal activities with continued monitoring/limiting excessive lifting Asked patient if there were any incidents prior to the muscle spasms starting. Janice reports thatemerald helped replace the bed in her daughter's room with her daughter's boyfriend. Asked Janice if she lifted more than she was supposed to and she says that she let her daughter's boyfriend do most of the lifting, but there was no one else to help, so she did. Discussed with Janice that she probably used a lot of muscles moving that furniture that she hasn't used in a long time, such as before surgery when she was in pain and after surgery while she was recovering. Janice states that she just refilled her muscle relaxer, Flexeril and plans to take it as directed for muscle spasms, she also states she has Tylenol 500mg capsules and was able to tell methat her instructions were to take 2 tabs every 8 hours. Advised Janice to use heat for the muscle spasms, however if her neck, back and shoulders hurt worse when the heat is removed, resource recovery specialist to using ice up to 20 minutes of every hour as needed. Reminded Janice to limiting excessive lifting. Advised her to rest, hydrate, be good to herself and give her body time to heal. Asked Janice to call us with any worsening symptoms, otherwise we will see her for her next scheduled post-op appointment with Shelby Aaron on 10/02/23. documented in this encounter Plan of Treatment Upcoming Encounters Date Type Department Care Team (Late st Contact Info) Description 12/24/2023 10:00 AM EDT Office Visit Neurology at [place] [address] Tereso Mohan MD [facility] [place] [place] [address] 12/24/2023 10:30 AM EDT Appointment XRay at [address] [place] [address] Shelby Aaron APRN [facility] [place] [address] 12/24/2023 11:30 AM EDT Office Visit [facility] [place] [address] Shelby Aaron APRN [facility] [place] [address] documented as of this encounter Visit Diagnoses Not on filedocumented in this encounter Care Teams Film Writer Relationship Specialty Start Date End Date [place] [address] PCP - General Family Medicine 03/12/23 documented as of this encounter
--- OUTSIDE RECORDS SUMMARY | 2023-11-16 14:10 | XMS_ITS | Encounter Summary ---
Author Organization [facility] Address [facility] [place] [address] Care Team Providers Care Logging Rafter Laborer Name Role Phone Wily Lilian Hicks APRN Primary Care Provider [phone] Reason for Visit * Reason Onset Date Comments Medication Refill 11/09/2023 Encounter Details Date Type Department Care Team (Late st Contact Info) Description 11/09/2023 [place] [address] Tereso Mohan MD [facility] [place] [address] Social History Tobacco Use Types Packs/Day Years Used Date Smoking Tobacco: Never Smokeless Tobacco: Never Comments:vapes but not nicot ine Alcohol Use Standard Drinks/Week Comments Never 0 (1 standard drink = 0.6 oz pur e alcohol) [facility] Utilities Answer Date Recorded In the past 12 months has [employer], gas, oil, or water [employer] threatened to shut off services in your [...] in a usp (including now)? 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 She is currently maintained on clobazam for mood stabilization and also to cover the possibility of epilepsy. She has had no seizures for some time on this current regimen, so we will continue it. Next Encounter in This Dept: 12/24/2023 Date of Last Refill/Order (for each medication): 05/06/23 Status of request: Pended Allergies Allergen Reactions Depakote [Divalproex] Other (See Comments) Edema Marisabel Vargas RN 11/11/23 11:26 AM documented in this encounter Plan of Treatment Upcoming Encounters Date Type Department Care Team (Late st Contact Info) Description 12/24/2023 10:00 AM EDT Office [place] [address] Tereso Mohan MD [facility] [place] [address] 12/24/2023 10:30 AM EDT Appointment XRay at [address] [place] [address] Shelby Aaron BUILDING MECHANIC [facility] [place] [address] 12/24/2023 11:30 AM EDT Office Visit [place] [address] Shelby Aaron BUILDING MECHANIC [facility] [place] [address] documented as of this encounter Visit Diagnoses Not on filedocumented in this encounter Care Teams Logging Rafter Laborer Relationship Specialty Start Date End Date Lilian Julien APRN [facility]id[facility] [place] [address] PCP - General Family Medicine 1/9/24 documented as of this encounter
--- OUTSIDE RECORDS SUMMARY | 2023-11-16 14:10 | XMS_ITS | Encounter Summary ---
[place] [address] Care Team Providers Care Client Manager Name Role Phone Lilian Julien APRN Primary Care Provider [phone] Encounter Details Date Type Department Care Team (Late st Contact Info) Description 06/18/2023 Refill [place] [phone] Susanna Jason LPN Social History Tobacco Use Types Packs/Day Years Used Date Smoking Tobacco: Never Smokeless Tobacco: Never Comments:vapes but not nicot ine Alcohol Use Standard Drinks/Week Comments Never 0 (1 standard drink = 0.6 oz pur e alcohol) [facility] Utilities Answer Date Recorded In the [...] a senior care (including now)? No 06/11/2023 IPV Inpatient Questions [...] Telephone Encounter - Susanna Jason LPN - 06/18/2023 9:[address] Wilkins is in agreement with returning to original scrip for this week. Pended script to NIGHAT De La Rosa who is agreeable to signing. documented in this encounter Plan of Treatment Upcoming Encounters Date Type Department Care Team (Late st Contact Info) Description 12/24/2023 10:00 AM EDT [place] [address] Tereso Mohan MD [facility] [place] [address] 12/24/2023 10:30 AM EDT Appointment XRay at [address] [place] [address] Shelby Aaron, [facility] [place] [address] 12/24/2023 11:30 AM EDT Office Visit Pain and Sp[facility] Center at [facility] [place] [address] Shelby Aaron, [facility] [address] documented as of this encounter Visit Diagnoses Not on filedocumented in this encounter Care Teams Client Manager Relationship Specialty Start Date End Date Lilian Jul[place] [address] [place] [address] PCP - General Family Medicine 03/12/23 documented as of this encounter
--- OUTSIDE RECORDS SUMMARY | 2023-11-16 14:10 | XMS_ITS | Encounter Summary ---
[place] [address] Care Team Providers Care Email Engineer Name Role Phone Lilian Julien APRN Primary Care Provider [phone] Encounter Details Date Type Department Care Team (Late st Contact Info) Description 09/16/2023 Telephone [facility] [place] [phone] Susanna Jason LPN Social History Tobacco Use Types Packs/Day Years Used Date Smoking Tobacco: Never Smokeless Tobacco: Never Comments:vapes but not nicot ine Alcohol Use Standard Drinks/Week Comments Never 0 (1 standard drink = 0.6 oz pur e alcohol) [facility] Utilities Answer Date Recorded In [...] place to sleep or slept in a half-way (including now)? No 06/11/2023 DH IPV Inpatient [...] encounter Miscellaneous Notes * Telephone Encounter - Shelby Aaron APRN - 09/18/2023 7:22 AM EDT Noted. No additional input since Claudette has reviewed. Will keep established follow- up appointment * Telephone Encounter - Kait Ace RN - 09/17/2023 1:12 PM EDTSummary: Seen at [facility] ED Bessie was seen at [facility] ED on 09/15/23. Called [facility] medical records for notes and imaging. Patient used alias as listed in e[facility]: Bessie Lvey. Faxed request and notes were sent. Reviewed C-spine CT report with Dr. Wilkins. CT report is reassuring. No further action at this time. Refill of muscle relaxer has been completed under separate cover. Records sent for scanning to [facility]. * Telephone Encounter - Susanna Jason LPN - 09/16/2023 12:46 PM EDT eBssie called with an update, she is s/p 06/10/23 1. Posterior cervical instrumentation C5-T1. 2. Posterior laminectomy C5-6, C6-7 without facetectomy. 3. Posterior cervical athrodesis C5-T1. 4. Application of local autograft and allograft. 5. Application and removal of Sutherland tongs. 6. Neuro monitoring. She was in [facility] ED over the weekend, they gave her 2 tablets of Valium. She can't use her right arm/hand, it is weak and painful, she gets spasms. She is scheduled to see Shelby Aaron APRN on 10/02/23, routing to Shelby to determine is she can offer Bessie anything in the meantime. documented in this encounter Plan of Treatment Upcoming Encounters Date Type Department Care Team (Late st Contact Info) Description 12/24/2023 10:00 AM EDT Office [place] [phone] Tereso Mohan MD [facility] [place] [address] 12/24/2023 10:30 AM EDT Appointment XRay at [address] [place] [phone] Shelby Aaron APRN [facility] [place] [address] 12/24/2023 11:30 AM EDT Office Visit [facility] [place] [address] Shelby Aaron APRN [facility] [place] [address] documented as of this encounter Visit Diagnoses Not on filedocumented in this encounter Care Teams Email Engineer Relationship Specialty Start Date End Date Lilian Julien, [place] [address] [place] [address] PCP - General Family Medicine 03/12/23 documented as of this encounter
--- OUTSIDE RECORDS SUMMARY | 2023-11-16 14:10 | XMS_ITS | Encounter Summary ---
Author Organization [facility] [place] [address] Care Team Providers Care Job Counselor Name Role Phone Wily Lilian Hicks APRN Primary Care Provider [phone] Encounter Details Date Type Department Care Team (Late st Contact Info) Description 06/17/2023 Telephone [place] [phone] Natalia Carmichael MD [facility] [place] [address] Social History Tobacco Use Types Packs/Day Years Used Date Smoking Tobacco: Never Smokeless Tobacco: Never Comments:vapes but not nicot ine Alcohol Use Standard Drinks/Week Comments Never 0 (1 standard drink = 0.6 oz pur e alcohol) [facility] Utilities Answer Date Recorded In the past 12 months has [employer], gas, oil, or water [employer] threatened to shut off services in your [...] place to sleep or slept in a longterm (including now)? No 06/11/2023 DH IPV Inpatient [...] encounter Miscellaneous Notes * Telephone Encounter - Natalia Carmichael MD - 06/17/2023 3:16 AM EDT ORTHOPAEDIC SURGERY TELEPHONE ENCOUNTER: Bessie Levy is a 37 y.o. female s/p C5-T1 posterior decompression/fusion with Dr. Wilkins 06/10/23. She calls with concerns about postoperative incisional pain. She is in tears and states that the Tylenol is not effective at all and that she is run out of her oxycodone prescription which was prescribed 1 to 2 tablets every 4 hours. She states that she normally took 1 tablet but oftentimes took 2 before bed to try to get more sleep. She has no new neurological symptoms the paresthesias in her hands are stable from postop. Denies any new muscle weakness, trouble breathing, difficulty swallowing. No fever or chills or other concerns at this time, just persistent pain at the incisional site thatextends into the shoulders. Bandages still in place without evidence of new leakage or drainage Called in for 15 more tablets of oxycodone 5 to be taken every 6 hours. Counseled patient on continuing to take Tylenol and to try to only take 1 tablet oxycodone and to try to wean off of this within the next coming days since we are 1 week out of surgery. If her pain consistently is at a high level, recommend she call clinic again with possible repeat evaluation. Bessie Levy expressed understanding and was in agreement with the plan. Natalia Carmichael MD Orthopaedic Surgery 9305 documented in this encounter Plan of Treatment Upcoming Encounters Date Type Department Care Team (Late st Contact Info) Description 12/24/2023 10:00 AM EDT Office Visit Neurology at [place] [phone] Tereso Mohan MD [facility] [place] [address] 12/24/2023 10:30 AM EDT Appointment XRay at [address] [place] [phone] Shelby Aaron APRN [facility] [place] [address] 12/24/2023 11:30 AM EDT Office Visit [facility] [place] [phone] Shelby Aaron APRN [facility] [place] [address] documented as of this encounter Visit Diagnoses Not on filedocumented in this encounter Care Teams Job Counselor Relationship Specialty Start Date End Date Lilian Julien APRN [address] [place] [address] PCP - General Family Medicine 03/12/23 documented as of this encounter
--- OUTSIDE RECORDS SUMMARY | 2023-11-16 14:11 | XMS_ITS | Encounter Summary ---
Author Organization [facility] Address [facility] [place] [address] Care Team Providers Care Meat Packager Name Role Phone Comfort Urban APRN Primary Care Provider [phone] Encounter Details Date Type Department Care Team (Latest Contact Info) Description 03/05/2023 Travel Social History Tobacco Use Types Packs/Day [...] slept in a intermediate (including now)? No 03/13/2022 Sex and Gender Information Value Date Recorded Sex Assigned at Not on file Gender Identity Not on file Sexual Orientation Not on file documented as of this encounter Plan of Treatment Upcoming Encounters Date Type Department Care Team (Late st Contact Info) Description 12/24/2023 10:00 AM EDT Office [place] [address] Tereso Mohan MD [facility] [place] [address] 12/24/2023 10:30 AM EDT Appointment XRay at [address] [place] [phone] Shelby Aaron STAFF EDUCATOR [facility] [place] [address] 12/24/2023 11:30 AM EDT Office Visit [facility] at [place] [phone] Shelby Aaron STAFF EDUCATOR [facility] [place] [address] documented as of this encounter Visit Diagnoses Not on filedocumented in this encounter Care Teams Meat Packager Relationship Specialty Start Date End Date Comfort Urban APRN [address] [place] [address] PCP - General Family Medicine 07/19/17 03/11/23 documented as of this encounter
--- OUTSIDE RECORDS SUMMARY | 2023-11-16 14:11 | XMS_ITS | Encounter Summary ---
[place] [address] Care Team Providers Care Emergency Room Tech Name Role Phone Lilian Julien APRN Primary Care Provider [phone] Reason for Referral * Diagnostic Test (Routine) - Closed Specialty Diagnoses / Procedures Referred By Contac t Referred To Contact Radiology Diagnoses Cervical spondylosis with myelopathy Procedures CT Cervical Spine wo Contrast Charly Wilkins MD [facility] [place] [address] [facility] [place] [address] Referral ID Status Reason Start Date Expiration Date V isits Requested Visits Authorized [id number] Closed Specialty Service Requested 04/30/2023 10/28/2024 1 1 Reason for Visit * Diagnostic Test (Routine) - Closed Specialty Diagnoses / Procedures Referred By Contac t Referred To Contact Radiology Diagnoses Cervical spondylosis with myelopathy Procedures CT Cervical Spine wo Contrast Charly Wilkins MD [facility] [place] [address] [facility] [place] [address] Referral ID Status Reason Start Date Expiration Date V isits Requested Visits Authorized [id number] Closed Specialty Service Requested 04/30/2023 10/28/2024 1 1 Encounter Details Date Type Department Care Team (Latest Contact Info) Description 05/13/2023 10:31 AM EDT - 05/13/2023 11:59 PM EDT Hospital Encounter CT Scan at [facility] [place] [address] Charly Wilkins MD [facility] [place] [address] Cervical spondylosis with myelopathy Discharge Disposition: Home [...] slept in a mcfp (including now)? No 03/13/2022 Sex and Gender Information Value Date Recorded Sex Assigned at Not on file Gender Identity Not on file Sexual Orientation Not on file documented as of this encounter Medications at Time of Discharge Medication Sig Dispensed Refills Start Date End Date Magnesium Oxide 250 mg magnesium Tablet TAKE [...] in PM 90 tablet 5 05/06/2023 11/09/2023 Magnesium Oxide 250 mg magnesium Tablet Take 1 tablet by mouth 2 times daily. 03/27/2023 05/21/2023 naproxen (Naprosyn) 500 mg tablet Take 1 tablet by mouth 2 times daily as needed. 60 tablet 12 09/17/2022 06/11/2023 aspirin EC 81 mg EC (DR) tablet Take 1 tablet by mouth daily. 30 tablet 11 09/17/2022 06/11/2023 cyclobenzaprine (Flexeril) 5 mg tablet Take 1 tablet by mouth 3 times daily as needed for Muscle spasms. 90 tablet 5 07/25/2022 09/16/2023 documented as of this encounter Plan of Treatment Upcoming Encounters Date Type Department Care Team (Late st Contact Info) Description 12/24/2023 10:00 AM EDT [place] [phone] Tereso Mohan MD [facility] [place] [place] [address] 12/24/2023 10:30 AM EDT Appointment XRay at [address] [place] [phone] Shelby Aaron EXTRA HAND [facility] [place] [address] 12/24/2023 11:30 AM EDT Office Visit [place] [phone] Shelby Aaron, EXTRA HAND [facility] [place] [address] documented as of this encounter Procedures Procedure Name Priority Date/Time Associated Diagnosis Comments CT CERVICAL SPINE WO CONTRAST Routine 05/13/2023 10:45 AM EDT Cervical spondylosis with myelopathy documented in this encounter Results * CT Cervical Spine wo Contrast (05/13/2023 10:45 AM EDT) Anatomical Region Laterality Modality C-spine Computed Tomogra phy Impressions 05/14/2023 12:11 PM EDT Craniocervical junction anomaly. Small component of mineralization associated with right paracentral disc herniation at C5-6. Thank you for letting us participate in the care of this patient. ??If you are a health care provider and have any questions regarding this report, please contact the number below. ??For patients who have questions please contact the health career law clerk that requested your imaging first. ? Electronically signed by: RIANA River [facility] ([phone]), at 05/14/2023 12:11 PM Narrative 05/14/2023 12:11 PM EDT EXAMINATION: CT CERVICAL SPINE WO CONTRAST CLINICAL HISTORY: Cervical myelopathy stenosis. OPLL? ??Prior CT 2020. M47.12, Other spondylosis with myelopathy, cervical region TECHNIQUE: CT cervical spine performed without intravenous contrast administration. COMPARISON: MRI cervical spine 03/22/2023 FINDINGS: Prevertebral soft tissues are normal in thickness. 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 ??Mild levoconvex curvature centered at C6. ??Unchanged few millimeter anterolisthesis of C4 with respect to C5. Unchanged asymmetric anterior disc height loss at C4-5. Similar appearance of disc herniations at C3-C4, C5-6 and C6-7; canal stenosis is better visualized on prior MRI. Endplate irregularity at C6-7 with posterior marginal endplate osteophytes. At C5-6, there is ossification/mineralization along the right paracentral disc herniation margin. No midline mineralization of the posterior longitudinal ligament at C5-6 or C6-7. There is mild central mineralization posterior to the vertebral body at C6. Procedure Note Roberta Miller MD - 05/14/2023 EXAMINATION: CT CERVICAL SPINE WO CONTRAST CLINICAL HISTORY: Cervical myelopathy stenosis. OPLL? Prior CT , Other spondylosis with myelopathy, cervical region TECHNIQUE: CT cervical spine performed without intravenous contrast administration. COMPARISON: MRI cervical spine 03/22/2023 FINDINGS: Prevertebral soft tissues are normal in thickness. 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 Congenital nonunion of theanterior and posterior C1 rings. Mild levoconvex curvature centered at C6.Unchanged few millimeter anterolisthesis of C4 with respect to C5. Unchangedasymmetric anterior disc height loss at C4-5. Similar appearance of disc herniationsat C3-C4, C5-6 and C6-7; canal stenosis is better visualized on prior MRI.Endplate irregularity at C6-7 with posterior marginal endplate osteophytes. AtC5-6, there is ossification/mineralization along the right paracentral discherniation margin. No midline mineralization of the posterior longitudinal ligamentat C5-6 or C6-7. There is mild central mineralization posterior to the vertebralbody at C6. IMPRESSION Craniocervical junction anomaly. Small component of mineralization associated with right paracentral disc herniation at C5-6. Thank you for letting us participate in the care of this patient. If youare a health care provider and have any questions regarding this report,please contact the number below. For patients who have questions please contactthe health career law clerk that requested your imaging first. Electronically signed by: RIANA River [facility]([phone]), at 05/14/2023 12:11 PM Charly Wilkins MD IMG CT ORDERABLES documented in this encounter Visit Diagnoses Diagnosis Cervical spondylosis with myelopathy documented in this encounter Care Teams Emergency Room Tech Relationship Specialty Start Date End Date Lilian Julien [place] [address] [place] [address] PCP - General Family Medicine 03/12/23 documented as of this encounter
--- OUTSIDE RECORDS SUMMARY | 2023-11-16 14:11 | XMS_ITS | Encounter Summary ---
Author Organization [facility] Address [facility] [place] [address] Care Team Providers Care Per Diem Name Role Phone Wily Lilian Hicks APRN Primary Care Provider [phone] Encounter Details Date Type Department Care Team (Latest Contact Info) Description 04/30/2023 6:45 AM EST - 04/30/2023 8:44 AM EST Hospital Encounter XRay at [address] [place] [address] Charly Wilkins MD [facility] [place] [address] s/p L4-5 decompression, PSIF Dr. Wilkins Discharge Disposition: Home Social History Tobacco Use [...] slept in a retirement (including now)? No 03/13/2022 Sex and Gender Information Value Date Recorded Sex Assigned at Not on file Gender Identity Not on file Sexual Orientation Not on file documented as of this encounter Medications at Time of Discharge Medication Sig Dispensed Refills Start Date End Date sertraline (Zoloft) 100 mg tablet Take 150 [...] mouth as needed. Med Name: CBD oil Magnesium Oxide 250 mg magnesium Tablet Take 1 tablet by mouth 2 times daily. 03/27/2023 05/21/2023 cloBAZam (Onfi) 10 mg tablet Take 1 pill in AM and 2 pills in PM 90 tablet 5 10/05/2022 05/05/2023 naproxen (Naprosyn) 500 mg tablet Take 1 tablet by mouth 2 times daily as needed. 60 tablet 12 09/17/2022 06/11/2023 magnesium 250 mg tablet Take 1 tablet by mouth 2 times daily. 60 tablet 5 09/17/2022 05/06/2023 aspirin EC 81 mg EC () tablet Take 1 tablet by mouth daily. 30 tablet 11 09/17/2022 06/11/2023 cyclobenzaprine (Flexeril) 5 mg tablet Take 1 tablet by mouth 3 times daily as needed for Muscle spasms. 90 tablet 5 07/25/2022 09/16/2023 gabapentin (Neurontin) 300 mg capsule Take 1 capsule by mouth 2 times daily. 60 capsule 5 07/25/2022 05/06/2023 documented as of this encounter Plan of Treatment Upcoming Encounters Date Type Department Care Team (Late st Contact Info) Description 12/24/2023 10:00 AM EDT Office [place] [address] Tereso Mohan MD [facility] [place] [address] 12/24/2023 10:30 AM EDT Appointment XRay at [address] [place] [phone] Shelby Aaron APRN [facility] PAIN [place]NAG[place] [address] 12/24/2023 11:30 AM EDT Office Visit [facility] [place] [phone] Shelby Aaron APRN [facility] [place] [address] documented as of this encounter Procedures Procedure Name Priority Date/Time Associated Diagnosis Comments XR LUMBAR SPINE 2 OR 3 VIEWS Routine 04/30/2023 6:56 AM EST s/p L4-5 decompression, PSIF Dr. Wilkins documented in this encounter Results * XR Lumbar Spine 2 Or 3 Views (Generic) (04/30/2023 6:56 AM EST) Anatomical Region Laterality Modality L-spine N/A Digital Radiogra phy Impressions 04/30/2023 9:43 AM EST 1. ??PSIF L4-L5 with intact and stable alignment of hardware. ??No interval change in subtle lucency surrounding L5 transpedicular screws. ??No new hardware complication 2. ??Stable spinal alignment. Thank you for letting us participate in the care of this patient. ??If you are a health care provider and have any questions regarding this report, please contact the number below. ??For patients who have questions please contact the health home care and home health aides teacher that requested your imaging first. ? Electronically signed by: Daniel Monge MD, [facility] ([phone]), at 04/30/2023 9:43 AM Narrative 04/30/2023 9:43 AM EST EXAMINATION: XR LUMBAR SPINE 2 OR 3 VIEWS (GENERIC) CLINICAL HISTORY: L4-L5 fusion M54.16, Radiculopathy, lumbar region TECHNIQUE: 2 views of the lumbar spine COMPARISON: Lumbar spine radiograph 11/20/2022 FINDINGS: 5 nonrib-bearing lumbar type vertebral bodies. PSIF of L4-L5 with posterior rods and transpedicular screws and dorsal decompression laminectomy. ??The hardware are intact and stable in alignment. The subtle lucencies surrounding the L5 transpedicular screws, on the AP projection are unchanged. ??No progression, or new periprosthetic lucency.. Stable grade 1 anterolisthesis of L4 on L5, without interval change. ??No new spondylolisthesis. ??Preservation of vertebral body heights. ??Unchanged mild degenerative disc disease at L4-L5 with disc height loss. ??Lumbar facet arthrosis.. Procedure Note Daniel Monge MD - 04/30/2023 EXAMINATION: XR LUMBAR SPINE 2 OR 3 VIEWS (GENERIC) CLINICAL HISTORY: L4-L5 fusion M54.16, Radiculopathy, lumbar region TECHNIQUE: 2 views of the lumbar spine COMPARISON: Lumbar spine radiograph 11/20/2022 FINDINGS: 5 nonrib-bearing lumbar type vertebral bodies. PSIF of L4-L5 with posterior rods and transpedicular screws and dorsal decompression laminectomy. The hardware are intact and stable inalignment. The subtle lucencies surrounding the L5 transpedicular screws, on the AP projection are unchanged. No progression, or new periprostheticlucency.. Stable grade 1 anterolisthesis of L4 on L5, without interval change. Nonew spondylolisthesis. Preservation of vertebral body heights. Unchangedmild degenerative disc disease at L4-L5 with disc height loss. Lumbar facet arthrosis.. IMPRESSION 1. PSIF L4-L5 with intact and stable alignment of hardware. No intervalchange in subtle lucency surrounding L5 transpedicular screws. No new hardware complication 2. Stable spinal alignment. Thank you for letting us participate in the care of this patient. If youare a health care provider and have any questions regarding this report,please contact the number below. For patients who have questions please contactthe health home care and home health aides teacher that requested your imaging first. Electronically signed by: Daniel Monge MD, [facility]([phone]), at 04/30/2023 9:43 AM Charly Wilkins MD IMG DX ORDERABLES documented in this encounter Visit Diagnoses Diagnosis s/p L4-5 decompression, PSIF Dr. Wilkins Thoracic or lumbosacral neuritis or radiculitis, unspecified documented in this encounter Care Teams Per Diem Relationship Specialty Start Date End Date Lilian Julien APRN [facility] [place] [address] PCP - General Family Medicine 03/12/23 documented as of this encounter
--- OUTSIDE RECORDS SUMMARY | 2023-11-16 14:11 | XMS_ITS | Encounter Summary ---
Author Organization [facility] Address [facility] Vinod [facility] [place] [address] Care Team Providers Care Special Education Aide Name Role Phone Wily Lilian Hicsk APRN Primary Care Provider [phone] Reason for Visit * Reason Comments Medication Refill Encounter Details Date Type Department Care Team (Late st Contact Info) Description 05/03/2023 Ref[place] [address] Tereso Mohan MD [facility] [place] [address] Social History Tobacco Use Types Packs/Day Years [...] slept in a usp (including now)? No 03/13/2022 Sex and Gender Information Value Date Recorded Sex Assigned at Not on file Gender Identity Not on file Sexual Orientation Not on file documented as of this encounter Miscellaneous Notes * Telephone Encounter - Yulia Puente RN - 05/06/2023 8:14 AM EST Prescription Renewal Request Name: Bessie Levy : 1985 Prescription(s) Requested: Requested Prescriptions Pending Prescriptions Disp Refills Magnesium Oxide 250 mg magnesium Tablet [Pharmacy Med Name: MAGNESIUM OXIDE 250 MG TABLET] 60 tablet 5 Sig: TAKE ONE TABLET BY MOUTH TWICE A DAY gabapentin (Neurontin) 300 mg capsule [Pharmacy Med Name: GABAPENTIN 300 MG CAPSULE] 60 capsule 5 Sig: TAKE ONE CAPSULE BY MOUTH TWICE A DAY Date of Encounter last in This Dept (If need an appointment send to secretaries to schedule): Tereso Mohan MD (Physician) Neurology Encounter Date: 03/12/2023 Next Encounter in This Dept: 06/11/2023 Date of Last Refill (for each medication): Magnesium ?? Neurontin 07/25/2022 60:5 Medication category requirements (labs etc): 03/12/2023 Gabapentin Lvl 2.0 - 20.0 mcg/mL 0.7 Low Status of request: Pended Allergies Allergen Reactions Depakote [Divalproex] Other (See Comments) Edema Yulia Puente RN 05/06/23 8:14 AM documented in this encounter Plan of Treatment Upcoming Encounters Date Type Department Care Team (Late st Contact Info) Description 12/24/2023 10:00 AM EDT Office Visit Neurology at [place] [phone] Tereso Mohan MD [facility] [place] [address] 12/24/2023 10:30 AM EDT Appointment XRay at [address] [place] [phone] Shelby Aaron, [facility] [place] [address] 12/24/2023 11:30 AM EDT Office Visit [facility] [place] [address] Shelby Aaron, [facility] [place] [address] documented as of this encounter Visit Diagnoses Not on filedocumented in this encounter Care Teams Special Education Aide Relationship Specialty Start Date End Date Lilian Julien, DIRECTOR CLINICAL PHARMACOLOGY Nidhi SWANN [facility] [place] [address] PCP - General Family Medicine 03/12/23 documented as of this encounter
--- OUTSIDE RECORDS SUMMARY | 2023-11-16 14:11 | XMS_ITS | Encounter Summary ---
Author Organization [facility] [place] [address] Care Team Providers Care Radio Operator Ground Name Role Phone Wily Lilian Hicks APRN Primary Care Provider [phone] Encounter Details Date Type Department Care Team (Latest Contact Info) Description 05/10/2023 Travel Social History Tobacco Use Types Packs/Day [...] place to sleep or slept in a correction (including now)? No 03/13/2022 Sex and Gender Information Value Date Recorded Sex Assigned at Not on file Gender Identity Not on file Sexual Orientation Not on file documented as of this encounter Plan of Treatment Upcoming Encounters Date Type Department Care Team (Late st Contact Info) Description 12/24/2023 10:00 AM EDT Office Visit Neurology at [place] [phone] Tereso Mohan MD [facility] [place] [address] 12/24/2023 10:30 AM EDT Appointment XRay at [address] [place] [phone] Shelby Aaron [employer] [facility] [place] [address] 12/24/2023 11:30 AM EDT Office Visit [facility] at [place] [phone] Shelby Aaron W[employer] [facility] [place] [address] documented as of this encounter Visit Diagnoses Not on filedocumented in this encounter Care Teams Radio Operator Ground Relationship Specialty Start Date End Date Lilian Julien APRN Nidhi [place] [address] PCP - General Family Medicine 03/12/23 documented as of this encounter
--- OUTSIDE RECORDS SUMMARY | 2023-11-16 14:11 | XMS_ITS | Encounter Summary ---
Author Organization [facility] Address [facility] Vin[facility] [place] [address] Care Team Providers Care Sample Display Preparer Name Role Phone Comfort Urban APRN Primary Care Provider [phone] Encounter Details Date Type Department Care Team (Latest Contact Info) Description 11/20/2022 3:30 PM EDT [place] [address] Tereso Mohan MD [facility] [place] [address] Radiculopathy of lumbar region; Hand numbness; Seizures Social History Tobacco Use Types Packs/Day Years [...] in a nursing home (including now)? No 03/13/2022 Sex and Gender Information Value Date Recorded Sex Assigned at Not on file Gender Identity Not on file Sexual Orientation Not on file documented as of this encounter Last Filed Vital Signs Vital Sign Reading Time Taken Comments Blood Pressure 138/89 11/20/2022 3:23 PM EDT Pulse 62 11/20/2022 3:23 PM EDT Temperature - - Respiratory Rate - - Oxygen Saturation - - Inhaled Oxygen Concentration - - Weight 89.8 kg (198 lb) 11/20/2022 3:23 PM EDT Height 154.9 cm (5' 1) 11/20/2022 3:23 PM EDT Body Mass Index 37.41 11/20/2022 3:23 PM EDT documented in this encounter Progress Notes * Tereso Mohan MD - 11/20/2022 3:30 PM EDT Neurology clinic note Chief complaint: Epilepsy. History according to Dr. Mohan's last clinic note: The patient is seen in follow-up today. As noted earlier, the patient is a 36 y/o right handed woman, referred by Comfort Urban APRN for evaluation of seizures and remors. The patient was born via C- section. She had no complications after and had normal development. She did well in school. She has worked outside [...] piloerection, sweating, nor unexplained episodes of heart racing. She has had no myoclonic jerks, nor episodes of waking up sore or with the bed wet. She had an MRI brain which was normal. EEG was subsequently normal. She was started on Keppra 500 mg [...] heart rate was low and she had CPR done before the ambulance arrived. [...] the patient has had tremors in her extremities and face. She states that it has been constant and progressively getting worse. Nothing in everyday life makes it better or worse. There is no family history of tremors. She states that it has beenmostly a resting tremor, and can be distractible. Previous work up: 1. Brain imaging: - MRI brain was done in 2015 was unremarkable per patient. -MRI brain: 05/10/2018- No acute intracranial abnormality -CT scan head- None 2. EEG: - Routine EEG:Done at [facility] 05/05/18: Normal study. 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 She was also describing a significant side effects of Depakote. We opted to do a crossover from Depakote to Topamax. Unfortunately this did not workout as planned. She came off the Depakote completely and was on Topamax 50 mg twice daily when she had a convulsive seizure that led to her being taken to [facility] emergency room. She had bitten the side of her tongue quite badly, for the first time. She was discharged from there without change in medication. She had another [...] our clinic here she was put back radha low dose of Depakote. As of 2019 the patient was doing reasonably well. She was seizure-free for over a year. She was tolerating the combination of Depakote and Topamax. The tremor is still present but somewhat better. I was concerned about polypharmacy with gabapentin and Celexa and Abilify and I note that she has beentaken off gabapentin. She is using CBD oil or smoked marijuana for symptoms of chronic pain particularly right-sided sciatica. However he is definitely improved after a lumbar epidural steroid injection. Headaches are also doing quite well. She is able to continue working full-time at the [employer]. As of 2020 she is doing quite well. She had one breakthrough convulsive seizure associated with missed doses of medication. She has had no other major medical problems. 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 She is having some mid back pain without lumbar radicular symptoms. As noted earlier she had a lumbar epidural steroid injection for symptoms of sciatica with good results. As of 2021 the situation was problematic. She has had another seizure in May. From her boyfriend's description it seems that she had either petit mal status, or prolonged focal seizures with altered awareness. She had waxing and waning responsiveness. She was having some minor tremors. She did not have a convulsion. Her dose of Depakote was increased from 250 mg twice daily to 250, 500 mg at [facility]. There have been no additional events in the past month. We did video EEG monitoring and surprisingly it showed no seizures and very few epileptic abnormalities in the EEG. She was discharged on a stable regimen of topiramate and Depakote. She continued tohave a mild tremor that is somewhat worse since increasing Depakote she is also having a lot of paresthesias in her hands attributed to topiramate. She has less symptoms in her feet. We started a trial of clobazam with a plan to taper off topiramate. She is now off topiramate She continued to have musculoskeletal pain in the neck and back. She was better following lumbar epidural steroid injection. However the benefit did not last, and surgery was planned. As of 2022 the situation is both clear and improved. 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 Her EEG was normal. She was taken off Keppra and Depakote. She was placed on clobazam as a mood stabilizer and tranquilizer, and also to cover her for epilepsy in case she was also having epileptic seizures. Once the Depakote was stopped the edema subsided, and Depakote is now on her allergy list. She was seen in cardiology with no specific findings. There was concern for an ovarian cyst that was thought to be benign when she was seenby gynecology. The patient then underwent surgery on her back, L4-5 decompression and fusion, and is now considerably improved with regard to back pain and sciatica. She still complains of numbness and tingling in the hands. This was thought to be consistent with carpal tunnel syndrome and ulnar neuropathy. 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 Interval History: Later in 2022 the patient is doing reasonably well She is having occasional migrainous headaches. They are somewhat worse since she stopped Depakote, but Depakote was otherwise very bad medication for her. She has not had any of the nonepileptic seizures She continues to have a variety of musculoskeletal symptoms particularly in the arms. She does a lot of lifting at the post office Past Medical History: Patient Active Problem List Diagnosis Seizures CIS - ASD, S/P repair CIS - Asthma CIS - Depression CIS - Hx CHTN ASD s/p repair in childhood. 2. Asthma. 3. Anxiety and depression. 4. Chronic lower back pain. 5. GERD. 6. History of De Quervain's disease 7. Fibromyaligia 8.Hypertension 9.Hyperlipidemia 10.Migraine Past Surgical History: 1. Status post right carpal tunnel release 2005. 2. Status post right knee retinacular release 1998. 3. ASD repair in childhood Allergies: NKDA Social History: Denies smoking cigarettes. Has occassional alcohol use. She was with a and two children, but she got . Her has moved out. She has a new boyfriend. 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 Family history: There is no family history of seizures. Mother: Hypertension, Diabetes Daughters: (Agnieszka Levy) has Chiari malformation and is s/p neurological surgery. She also hasabsence seizures and developmental delay. Another daughter has migraine. Review of Systems: Gen - no fevers, chills, sweats, lost weight lost 25-30 pounds since last summer Eyes - double vision during the headaches, no blurry vision HEENT - no sore throat, mouth sores, difficulty swallowing, ear pain or discharge Heart - no chest pain or palpitations Lungs - no dyspnea, cough, hemoptysis, or pleuritic pain GI - nausea with the headaches, no diarrhea, constipation, or abdominal pain - no dysuria, hematuria, or inability to void, sometimes is urgent, does not get up during the night for it MS - tightness in left hip and lower back Neuro - both hands are always numb and stiff, brace and gabapentin have helped a little, has been going on for 2 years, EMG in the past, carpel tunnel surgery right hand, cortisone did not help Psych- mood has been good Current Medications: Current Outpatient Medications Medication Sig Dispense Refill lisinopriL (Zestril) 10 mg tablet Take 10 mg by mouth daily. cloBAZam (Onfi) 10 mg tablet Take 1 pill in AM and 2 pills in PM 90 tablet 5 naproxen (Naprosyn) 500 mg tablet Take 1 tablet by mouth 2 times daily as needed. 60 tablet 12 magnesium 250 mg tablet Take 1 tablet by mouth 2 times daily. 60 tablet 5 riboflavin, Vitamin B2, (Vitamin B2) 100 mg tablet Take 2 tablets by mouth 2 times daily. 120 tablet 11 aspirin EC 81 mg EC (DR) tablet Take 1 tablet by mouth daily. 30 tablet 11 cyclobenzaprine (Flexeril) 5 mg tablet Take 1 tablet by mouth 3 times daily as needed for Muscle spasms. 90 tablet 5 gabapentin (Neurontin) 300 mg capsule Take 1 capsule by mouth 2 times daily. 60 capsule 5 methylcellulose (CITRUCEL ORAL) Take by mouth as needed. cholecalciferol, Vitamin D3, 50 mcg (2,000 unit) Tablet Take 1 tablet by mouth daily. 90 tablet 3 ProAir HFA 90 mcg/actuation HFA Aerosol Inhaler INL 1 TO 2 PFS PO Q 4 TO 6 H PRN ARIPiprazole (ABILIFY) 2 mg Tablet Take 2 mg by mouth daily. 0 citalopram (CELEXA) 20 mg Tablet Take 40 mg by mouth daily. 0 UNABLE TO FIND Take by mouth as needed. Med Name: CBD oil No current facility-administered medications for this visit. Physical Examination: BP 146/89 Mental status: Mentally clear, speech normal. Cranial nerve II XII: All normal. Motor: Strength was elbow ext 4+/5 b/l, 4/5 b/l lumbricals and finger extention, normal motor tone.Muscle bulk was normal throughout. Has no resting tremor, mild postural tremor bilaterally. Sensory: Bilateral decreased sensation in the hands up to the wrists. Tinel sign--> middle two fingers b/l, thoracic outlet sign bilaterally. Phalen's sign in the thumb b/l. Ulnar grooves not tender. Vibration sense intact. No lateralized symptoms or signs Reflexes: brisk throughout, slightly more brisk in the left UE compared to right. Positive Hoffmansbilaterally. Equivocal plantar reflex bilaterally. Cerebellar: Normal [id number] with mild action tremor, normal [id number], no dysdiadochokinesia. Gait: gait was wide-based, good heel and toe walking, poor tandem. Laboratory studies: Imaging: MRI brain was done in 2016 was unremarkable per patient MRI brain: 05/10/2018- No acute intracranial abnormality CT scan head- None MRI lumbar spine 2019 degenerative changes most prominent at L4-5 with foraminal stenosis bilaterally worse on the right EEG: Routine EEG:Done at [facility] 05/05/18: Normal study. Blood Tests: Blood tests all unremarkable in March 2019 Valproic Acid Level, Total Hepatic Function Panel Basic Metabolic Panel (non-fasting) CBC (with Diff) Ammonia Topiramate level TSH Vitamin B12 T4 Total Carnitine Hemogram Differential, Automated All unremarkable in 2020 Valproic Acid Level, Total Hepatic Function Panel Basic Metabolic Panel (non-fasting) CBC (with Diff) Ammonia Topiramate level All unremarkable in 2021 Procedures Valproic Acid Level, Total Ammonia Hepatic Function Panel Lyme IgG & IgM Antibody Sedimentation rate Magnesium Phosphorus SAVANNAH Protein Electrophoresis, serum CK Topiramate level Cardiolipin Antibody Screen Tissue transglutaminase, IgA Rheumatoid factor, quant Hemoglobin A1c Vitamin D, 25-Hydroxy Folate, serum Vitamin B1, whole blood Video EEG monitoring: Nonepileptic psychogenic seizures recorded. Unremarkable laboratory studies 2022 Procedures Valproic Acid Level, Total Hepatic Function Panel Basic Metabolic Panel (non-fasting) TSH T4 Total Protein Electrophoresis, serum Prothrombin Time Lipase Amylase Ammonia Prothrombin Time APTT Thrombin time Fibrinogen D-Dimer, Quantitative Impression and plan: Patient is doing better although there are several ongoing neurological issues. 1. It is possible patient has experienced both epileptic (tongue biting on previous episode) as well as non-epileptic (normal EEG in the past while having episodes) seizures. She is currently maintained on clobazam for mood stabilization and also to cover the possibility of epilepsy. She has luckily had no repeat seizures under this current regimen, so we will continue this. 2. Patient continues to note migraines 1-2x/week in the mornings, noting photo/phonophobia. She hasrelief from ibuprofen and caffeine. She states that she is taking magnesium supplements at home 250mg. We recommend she increase the dose to twice a day. We will also add riboflavin supplementation 200mg twice daily and aspirin 81mg daily as well as Naprosyn 500mg bid PRN. We will hold off on starting topiramate while we trial her on these supplements. 3. The numbness in her hands appears to be relatively mild carpal tunnel syndrome with normal electrical studies. She had surgery on the right hand, and has some similar symptoms on the left, with positive exam findings of Tinel's and Phalen signs bilaterally. She continues to experience numbness in the hands despite taking gabapentin 300mg tid. We will consider replacing this with topiramate if the trial of supplementation above is ineffective. Because previous EMG studies were normal, we willcontinue with conservative management and do not recommend surgery at this time. I did recommend that she apply hot and cold compresses to her arms. 4. Patient states her depression is well controlled with her current Abilify and Celexa medications. We will make no modifications. Renetta Jones PGY-2 Neurology Resident Department of Neurology [facility] Neurology Attending I saw and evaluated the patient with the neurology team. I have reviewed the history during the visit and I agree with the details as written. My physical examination confirms the reported findings. The assessment and plan were formulated in discussion with me at the time of the visit and I agree with them as documented. Tereso Mohan MD [place] [address] Pager #[phone] Email: [email or web address] CC: Comfort Urban APRN documented in this encounter Plan of Treatment Upcoming Encounters Date Type Department Care Team (Late st Contact Info) Description 12/24/2023 10:00 AM EDT [place] [address] Tereso Mohan MD [facility] [place] [address] 12/24/2023 10:30 AM EDT Appointment XRay at [address] [place] [address] Shelby Aaron APRN [facility] [address] 12/24/2023 11:30 AM EDT Office Visit [place] [address] Shelby Aaron APRN [facility] [place] [address] documented as of this encounter Visit Diagnoses Diagnosis Radiculopathy of lumbar region Thoracic or lumbosacral neuritis or radiculitis, unspecified Hand numbness Disturbance of skin sensation Seizures Other convulsions documented in this encounter Care Teams Sample Display Preparer Relationship Specialty Start Date End Date Comfort Urban APRN [address] [place] [address] PCP - General Family Medicine 07/19/17 03/11/23 documented as of this encounter
--- OUTSIDE RECORDS SUMMARY | 2023-11-16 14:11 | XMS_ITS | Encounter Summary ---
Author Organization [facility] Address [facility] [place] [address] Care Team Providers Care Sandwich Machine Operator Name Role Phone Wily Lilian Hicks APRN Primary Care Provider [phone] Encounter Details Date Type Department Care Team (Latest Contact Info) Description 04/29/2023 Travel Social History Tobacco Use Types Packs/Day [...] place to sleep or slept in a fci (including now)? No 03/13/2022 Sex and Gender Information Value Date Recorded Sex Assigned at Not on file Gender Identity Not on file Sexual Orientation Not on file documented as of this encounter Plan of Treatment Upcoming Encounters Date Type Department Care Team (Late st Contact Info) Description 12/24/2023 10:00 AM EDT Office Visit Neurology at [place] [phone] Tereso Mohan MD [facility] [place] [address] 12/24/2023 10:30 AM EDT Appointment XRay at [address] [place] [phone] Shelby Aaron [employer] [facility] [place] [address] 12/24/2023 11:30 AM EDT Office Visit [facility] at [place] [phone] Shelby Aaron [employer] [facility] [place] [address] documented as of this encounter Visit Diagnoses Not on filedocumented in this encounter Care Teams Sandwich Machine Operator Relationship Specialty Start Date End Date Lilian Julien APRN Nidhi [facility] [address] PCP - General Family Medicine 03/12/23 documented as of this encounter
--- OUTSIDE RECORDS SUMMARY | 2023-11-16 14:11 | XMS_ITS | Encounter Summary ---
Author Organization [facility] Address [facility] [place] [address] Care Team Providers Care Flower Grader Name Role Phone Wily Lilian Hicks APRN Primary Care Provider [phone] Encounter Details Date Type Department Care Team (Latest Contact Info) Description 04/30/2023 8:45 AM EST - 04/30/2023 11:59 PM [facility] Hospital Encounter XRay at [address] [place] [address] Charly Wilkins MD [facility] [place] [address] Cervical spondylosis with myelopathy Discharge Disposition: Home [...] slept in a prison (including now)? No 03/13/2022 Sex and Gender [...] 09/17/2022 05/06/2023 aspirin EC 81 mg EC (DR) tablet [...] 10:00 AM EDT [place] [address] Tereso Mohan MD [facility] [address] [place] [address] 12/24/2023 10:30 AM EDT Appointment XRay at [address] [place] [address] Shelby Aaron APRN [facility] [place] [address] 12/24/2023 11:30 AM EDT Office Visit [place] [address] Shelby Aaron APRN [facility] [place] [address] documented as of this encounter Procedures Procedure Name Priority Date/Time Associated Diagnosis Comments XR CERVICAL SPINE 4 OR 5 VIEWS Routine 04/30/2023 8:55 AM EST Cervical spondylosis with myelopathy documented in this encounter Results * XR Cervical Spine 4 or 5 Views (04/30/2023 8:55 AM EST) Anatomical Region Laterality Modality L-spine N/A Digital Radiogra phy Impressions 04/30/2023 11:14 AM EST 1. ??Grade 1 C4-C5 anterolisthesis. No dynamic instability. 2. ??Degenerative disc disease at C5-C6 and C6-C7. 3. ??No acute osseous finding Thank you for letting us participate in the care of this patient. ??If you are a health care provider and have any questions regarding this report, please contact the number below. ??For patients who have questions please contact the health director career services that requested your imaging first. ? Electronically signed by: Daniel Monge MD, [facility] ([phone]), at 04/30/2023 11:14 AM Narrative 04/30/2023 11:14 AM EST EXAMINATION: XR CERVICAL SPINE 4 OR 5 VIEWS CLINICAL HISTORY: AP LAT Flex Ext Cervical stenosis. M47.12, Other spondylosis with myelopathy, cervical region TECHNIQUE: 4 views of the cervical spine COMPARISON: MR C-spine 03/22/2023. FINDINGS: The cervical spine from level C1-C7 is visualized on lateral view. Grade 1 anterolisthesis of C4 on C5 measuring 3 mm on flexion, and reduces completely on extension. ??No dynamic instability. ??No additional level of spinal listhesis. Preservation of vertebral body heights. There is mild disc height loss at C5-C6 and C6-C7 with endplate osteophytes and uncovertebral hypertrophy. ??The facet joints are aligned. Prevertebral and paraspinous soft tissues unremarkable. Clear lung apices. Dental amalgam. Survey of the skull base and maxillofacial structures are unremarkable. ??Median sternotomy wires are noted. Procedure Note Daniel Monge MD - 04/30/2023 EXAMINATION: XR CERVICAL SPINE 4 OR 5 VIEWS CLINICAL HISTORY: AP LAT Flex Ext Cervical stenosis. M47.12, Other spondylosis with myelopathy, cervical region TECHNIQUE: 4 views of the cervical spine COMPARISON: MR C-spine 03/22/2023. FINDINGS: The cervical spine from level C1-C7 is visualized on lateral view. Grade 1 anterolisthesis of C4 on C5 measuring 3 mm on flexion, andreduces completely on extension. No dynamic instability. No additional level ofspinal listhesis. Preservation of vertebral body heights. There is mild disc height loss at C5-C6 and C6-C7 with endplateosteophytes and uncovertebral hypertrophy. The facet joints are aligned. Prevertebral and paraspinous soft tissues unremarkable. Clear lungapices. Dental amalgam. Survey of the skull base and maxillofacial structuresare unremarkable. Median sternotomy wires are noted. IMPRESSION 1. Grade 1 C4-C5 anterolisthesis. No dynamic instability. 2. Degenerative disc disease at C5-C6 and C6-C7. 3. No acute osseous finding Thank you for letting us participate in the care of this patient. If youare a health care provider and have any questions regarding this report,please contact the number below. For patients who have questions please contactthe health director career services that requested your imaging first. Electronically signed by: Daniel Monge MD, [facility]([phone]), at 04/30/2023 11:14 AM Charly Wilkins MD IMG DX ORDERABLES documented in this encounter Visit Diagnoses Diagnosis Cervical spondylosis with myelopathy documented in this encounter Care Teams Flower Grader Relationship Specialty Start Date End Date Lilian Julien APRN [address] [place] [address] PCP - General Family Medicine 03/12/23 documented as of this encounter
--- OUTSIDE RECORDS SUMMARY | 2023-11-16 14:11 | XMS_ITS | Encounter Summary ---
Author Organization [facility] Address [facility] [address] Care Team Providers Care Buckle And Button Maker Name Role Phone Wily Lilian Hicks APRN Primary Care Provider [phone] Reason for Visit * Reason Onset Date Comments Medication Refill 05/05/2023 Encounter Details Date Type Department Care Team (Late st Contact Info) Description 05/05/2023 [place] [address] Tereso Mohan MD [facility] [place] [address] Social History Tobacco Use Types Packs/Day Years [...] Telephone Encounter - Marisabel Vargas RN - 05/06/2023 12:55 PM EST Prescription Renewal Request Name: Bessie Levy : 1985 Prescription(s) Requested: Requested Prescriptions Pending Prescriptions Disp Refills cloBAZam (Onfi) 10 mg tablet 90 tablet 5 Sig: Take 1 pill in AM and 2 pills in PM Date of Encounter last in This Dept : 03/12/23-It is likely that the patient has experienced both epileptic (tongue biting on the side during 1 previous episode) ,as well as non-epileptic (normal EEG in the past while having episodes) ,seizures. She is currently maintained on clobazam for mood stabilization and also to cover the possibility of epilepsy. She has had no seizures for some time on thiscurrent regimen, so we will continue it. Next Encounter in This Dept: 06/11/2023 Date of Last Order(for each medication): 10/05/22 (90 tabs with 5 refills Status of request: Pended Allergies Allergen Reactions Depakote [Divalproex] Other (See Comments) Edema Marisabel Vargas RN 05/06/23 12:55 PM documented in this encounter Plan of Treatment Upcoming Encounters Date Type Department Care Team (Late st Contact Info) Description 12/24/2023 10:00 AM EDT Office Visit Neurology at [place] [phone] Tereso Mohan MD [facility] [place] [place] [address] 12/24/2023 10:30 AM EDT Appointment XRay at [address] [place] [phone] Shelby Aaron [facility] [place] [address] 12/24/2023 11:30 AM EDT Office Visit [facility] at [place] [phone] Shelby Aaron [facility] [address] documented as of this encounter Visit Diagnoses Not on filedocumented in this encounter Care Teams Buckle And Button Maker Relationship Specialty Start Date End Date Lilian Julien APRN [facility] [place] [address] PCP - General Family Medicine 03/12/23 documented as of this encounter
--- OUTSIDE RECORDS SUMMARY | 2023-11-16 14:11 | XMS_ITS | Encounter Summary ---
[place] [address] Care Team Providers Care Loan Operations Manager Name Role Phone Comfort Urban APRN Primary Care Provider [phone] Reason for Visit * Reason Onset Date Comments Other 11/09/2022 Encounter Details Date Type Department Care Team (Late st Contact Info) Description 11/09/2022 Telephone [place] [phone] Tereso Mohan MD Other Social History Tobacco Use Types Packs/Day Years [...] place to sleep or slept in a long-term (including now)? No 03/13/2022 Sex and Gender Information Value Date Recorded Sex Assigned at Not on file Gender Identity Not on file Sexual Orientation Not on file documented as of this encounter Miscellaneous Notes * Telephone Encounter - Juan Moon - 11/20/2022 8:07 AM EDT Patient called and stated she received a call yesterday from the office offering a 12pm or 2:30pm appointment with Dr. Mohan for today 11/20. 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 Patient stated she lives over an hour [place] a half away. Please call to advise. * Telephone Encounter - Lynne Moffett RN - 11/09/2022 8:56 AM EDT Copied from CRM #[id number]. Topic: Specialty Dept CRMs - Generic Call >> Nov 08, 2022 4:43 PM Lynne Vang wrote: Specialist: Kimberlee Relationship (if other than patient-full name): self Reason for Call: In reference to 10/11/2022 CRM, patient states both arm are starting to swell and is now wearing braces at work patient is suggesting if the provider can increase the Gabapentin or move up the fuv same day as with the other appointment on 11/20 if possible. Please call the patient back to advise. documented in this encounter Plan of Treatment Upcoming Encounters Date Type Department Care Team (Late st Contact Info) Description 12/24/2023 10:00 AM EDT Office [place] [address] Tereso Mohan MD [facility] [place] [address] 12/24/2023 10:30 AM EDT Appointment XRay at [address] [place] [phone] Shelby Aaron, [facility] [place] [address] 12/24/2023 11:30 AM EDT Office Visit [facility] [place] [address] Shelby Aaron, [facility] [place] [address] documented as of this encounter Visit Diagnoses Not on filedocumented in this encounter Care Teams Loan Operations Manager Relationship Specialty Start Date End Date Comfort Urban APRN [address] [place] [address] PCP - General Family Medicine 07/19/17 03/11/23 documented as of this encounter
--- OUTSIDE RECORDS SUMMARY | 2023-11-16 14:11 | XMS_ITS | Encounter Summary ---
Author Organization [facility] [place] [address] Care Team Providers Care Rail Operations Controller Name Role Phone Wily Lilian Hicks APRN Primary Care Provider [phone] Encounter Details Date Type Department Care Team (Late st Contact Info) Description 04/08/2023 Telephone [place] [phone] Moise Yost MD [facility] [place] [address] Social History Tobacco Use Types Packs/Day Years [...] slept in a half-way (including now)? No 03/13/2022 Sex and Gender Information Value Date Recorded Sex Assigned at Not on file Gender Identity Not on file Sexual Orientation Not on file documented as of this encounter Miscellaneous Notes * Telephone Encounter - Moise Yost MD - 04/08/2023 7:57 PM EST Orthopedic Surgery Telephone Note: Bessie Levy is a 37F who underwent a posterior decompression, fusion L4-L5 with Dr. Wilkins on 01/05/22 which was complicated by lysis and broken screws bilaterally. She was seen by Dr. Wilkins's team on 11/20/22 at which time she was doing well. She calls in today with significant pain in her lower back, much more so than usual. 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 Her upper extremities are tingling and somewhat weak to the point that she is having difficulty holding the phone, but this has been ongoing for two years. She did get a C-spine MRI on 03/22/23 which showed dre stenosis and foraminal narrowing throughout the cervical spine. Her symptoms in general have not changed significantly and she does have follow up with Dr. Matias 04/30/23 to address these issues. I discussed with her that I do not have any acute concerns at this time, but did offer to write for a small script of oxycodone which has worked in the past for her until she is able to communicate with our clinic. Due to the local pharmacy being closed, she declined, but will plan on reaching out to the clinic in the AM to see if they can move her appointment earlier. We were in agreement with this plan and the phone call was ended cordially. Moise Yost MD 04/08/23 documented in this encounter Plan of Treatment Upcoming Encounters Date Type Department Care Team (Late st Contact Info) Description 12/24/2023 10:00 AM EDT Office [place] [address] Tereso Mohan MD [facility] [place] [address] 12/24/2023 10:30 AM EDT Appointment XRay at [address] [place] [address] Shelby Aaron [facility] [place] [address] 12/24/2023 11:30 AM EDT Office Visit [place] [address] Shelby Aaron MORGUE TECHNICIAN [facility] [address] documented as of this encounter Visit Diagnoses Not on filedocumented in this encounter Care Teams Rail Operations Controller Relationship Specialty Start Date End Date Lilian Julien [place] [address] PCP - General Family Medicine 03/12/23 documented as of this encounter
--- OUTSIDE RECORDS SUMMARY | 2023-11-16 14:11 | XMS_ITS | Encounter Summary ---
Author Organization [facility] [place] [address] Care Team Providers Care Tire Vulcanizer Name Role Phone Comfort Urban APRN Primary Care Provider [phone] Encounter Details Date Type Department Care Team (Late st Contact Info) Description 03/05/2023 External [place] [phone] Raul Thomas MD [facility] [place] [address] Social History Tobacco Use Types Packs/Day Years [...] place to sleep or slept in a detention (including now)? No 03/13/2022 Sex and Gender Information Value Date Recorded Sex Assigned at Not on file Gender Identity Not on file Sexual Orientation Not on file documented as of this encounter Plan of Treatment Upcoming Encounters Date Type Department Care Team (Late st Contact Info) Description 12/24/2023 10:00 AM EDT Office Visit Neurology at [address] Tereso Mohan MD [facility] [place] [address] 12/24/2023 10:30 AM EDT Appointment XRay at [address] [place] [phone] Shelby Aaron CLOTH FEEDER [facility] [place] [address] 12/24/2023 11:30 AM EDT Office Visit Pain and Spine Center at [place] [phone] Shelby Aaron APRN [facility] [place] [address] documented as of this encounter Procedures Procedure Name Priority Date/Time Associated Diagnosis Comments EMG WITH F-WAVE Routine 03/05/2023 2:27 PM EST documented in this encounter Results * EMG WITH F-WAVE (03/05/2023 2:27 PM EST) Raul Thomas MD NEUROLOGY ORDERABL ES documented in this encounter Visit Diagnoses Not on filedocumented in this encounter Care Teams Tire Vulcanizer Relationship Specialty Start Date End Date Comfort Urban, CLOTH FEEDER [address] [place] [address] PCP - General Family Medicine 07/19/17 03/11/23 documented as of this encounter
--- OUTSIDE RECORDS SUMMARY | 2023-11-16 14:11 | XMS_ITS | Encounter Summary ---
[place] [address] Care Team Providers Care Armature Winder Repair Helper Name Role Phone Wily Lilian Hicks APRN Primary Care Provider [phone] Reason for Referral * Diagnostic Test (Routine) - Closed Specialty Diagnoses / Procedures Referred By Contac t Referred To Contact Radiology Diagnoses Cervical radiculopathy Procedures MRI Cervical Spine wo Contrast (Generic) Tereso Mohan MD [facility] [place] [address] [place] [address] Referral ID Status Reason Start Date Expiration Date V isits Requested Visits Authorized [id number] Closed Specialty Service Requested 03/12/2023 09/09/2024 1 1 Reason for Visit * Diagnostic Test (Routine) - Closed Specialty Diagnoses / Procedures Referred By Contac t Referred To Contact Radiology Diagnoses Cervical radiculopathy Procedures MRI Cervical Spine wo Contrast (Generic) Tereso Mohan MD [facility] [place] [address] [place] [address] Referral ID Status Reason Start Date Expiration Date V isits Requested Visits Authorized [id number] Closed Specialty Service Requested 03/12/2023 09/09/2024 1 1 Encounter Details Date Type Department Care Team (Latest Contact Info) Description 03/22/2023 10:45 AM EST - 03/22/2023 11:59 PM EST Hospital Encounter MRI at [facility] [place] [address] Tereso Mohan MD [facility] [place] [address] Cervical radiculopathy Discharge Disposition: Home Social History Tobacco Use [...] in a long term (including now)? No 03/13/2022 Sex and Gender [...] mouth as needed. Med Name: CBD oil cloBAZam (Onfi) 10 mg tablet Take 1 [...] 10:00 AM EDT [place] [address] Tereso Mohan MD [facility] [place] [address] 12/24/2023 10:30 AM EDT Appointment XRay at [address] [place] [phone] Shelby Aaron, [facility] [place] [address] 12/24/2023 11:30 AM EDT Office Visit [place] [phone] Shelby Aaron, [facility] [place] [address] documented as of this encounter Procedures Procedure Name Priority Date/Time Associated Diagnosis Comments MRI CERVICAL SPINE WO CONTRAST Routine 03/22/2023 11:50 AM EST Cervical radiculopathy documented in this encounter Results * MRI Cervical Spine wo Contrast (Generic) (03/22/2023 11:50 AM EST) Anatomical Region Laterality Modality C-spine Magnetic Resonan ce Impressions 03/22/2023 7:46 PM EST 1. ??Disc extrusion contributes to severe canal stenosis with cord compression at C5-C6. 2. ??Severe neuroforaminal narrowing on the right at C4-C5 and C5-C6, bilaterally at C6-C7. Thank you for letting us participate in the care of this patient. ??If you are a health care provider and have any questions regarding this report, please contact the number below. ??For patients who have questions please contact the health health care aide that requested your imaging first. ? Electronically signed by: Kimo Davis MD, [facility] ([phone]), at 03/22/2023 7:46 PM Narrative 03/22/2023 7:46 PM EST EXAMINATION: MRI CERVICAL SPINE WO CONTRAST (GENERIC) CLINICAL HISTORY: Cervical radiculopathy, no red flags TECHNIQUE: MRI of the cervical spine performed without intravenous contrast administration. COMPARISON: None FINDINGS: 2 mm anterolisthesis of C4. Mild degenerative C6 vertebral body height loss. Moderate disc height loss at C5-C6 and C6-C7. There are degenerative endplate marrow signal changes at C5, C6 and C7. No suspicious marrow signal. No prevertebral soft tissue swelling. C2-C3: No disc herniation, canal stenosis or neural foraminal narrowing. Mild left facet arthropathy. C3-C4: Discussed effect complex indents the ventral thecal sac. Left greater than right uncovertebral and facet arthropathy contribute to mild bilateral neural foraminal narrowing. No significant central canal stenosis. C4-C5: Discussed effect complex flattens the ventral thecal sac. Right greater than left uncovertebral and facet arthropathy contribute to severe right and mild left neural foraminal narrowing. C5-C6: Central disc extrusion with 6 mm caudal migration. Moderate uncovertebral facet arthropathy. The findings contribute to severe central canal stenosis, cord compression with increased T2 signal, moderate left and severe right neural foraminal narrowing. C6-C7: Disc osteophyte complex indents the ventral thecal sac. Moderate uncovertebral and facet arthropathy contribute to severe bilateral neural foraminal narrowing. C7-T1: Normal Procedure Note Kimo Davis MD - 03/22/2023 EXAMINATION: MRI CERVICAL SPINE WO CONTRAST (GENERIC) CLINICAL HISTORY: Cervical radiculopathy, no red flags TECHNIQUE: MRI of the cervical spine performed without intravenous contrastadministration. COMPARISON: None FINDINGS: 2 mm anterolisthesis of C4. Mild degenerative C6 vertebral body heightloss. Moderate disc height loss at C5-C6 and C6-C7. There are degenerativeendplate marrow signal changes at C5, C6 and C7. No suspicious marrow signal. No prevertebral soft tissue swelling. C2-C3: No disc herniation, canal stenosis or neural foraminal narrowing.Mild left facet arthropathy. C3-C4: Discussed effect complex indents the ventral thecal sac. Leftgreater than right uncovertebral and facet arthropathy contribute to mildbilateral neural foraminal narrowing. No significant central canal stenosis. C4-C5: Discussed effect complex flattens the ventral thecal sac. Rightgreater than left uncovertebral and facet arthropathy contribute to severe rightand mild left neural foraminal narrowing. C5-C6: Central disc extrusion with 6 mm caudal migration. Moderateuncovertebral facet arthropathy. The findings contribute to severe central canalstenosis, cord compression with increased T2 signal, moderate left and severe rightneural foraminal narrowing. C6-C7: Disc osteophyte complex indents the ventral thecal sac. Moderate uncovertebral and facet arthropathy contribute to severe bilateralneural foraminal narrowing. C7-T1: Normal IMPRESSION 1. Disc extrusion contributes to severe canal stenosis with cordcompression at C5-C6. 2. Severe neuroforaminal narrowing on the right at C4-C5 and C5-C6,bilaterally at C6-C7. Thank you for letting us participate in the care of this patient. If youare a health care provider and have any questions regarding this report,please contact the number below. For patients who have questions please contactthe health health care aide that requested your imaging first. Electronically signed by: Kimo Davis MD, [facility]([phone]), at 03/22/2023 7:46 PM Tereso Mohan MD IMG MRI ORDERABLES documented in this encounter Visit Diagnoses Diagnosis Cervical radiculopathy Brachial neuritis or radiculitis nos documented in this encounter Care Teams Armature Winder Repair Helper Relationship Specialty Start Date End Date Lilian Julien APRN [address] [place] [address] PCP - General Family Medicine 03/12/23 documented as of this encounter
--- OUTSIDE RECORDS SUMMARY | 2023-11-16 14:11 | XMS_ITS | Encounter Summary ---
Author Organization [facility] [place] [address] Care Team Providers Care Mold Technician Name Role Phone Comfort Urban APRN Primary Care Provider [phone] Reason for Visit * Reason Comments Follow-up [facility] Encounter Details Date Type Department Care Team (Late st Contact Info) Description 11/20/2022 11:20 AM EDT Office Visit [place] [address] Charly Wilkins MD [facility] [address] s/p L4-5 decompression, PSIF Dr. Wilkins; Pseudoarthrosis of lumbar spine; Congenital anomalies of spine; H/O lumbosacral spine surgery; Spondylolisthesis at L4-L5 level Social History Tobacco Use Types Packs/Day Years [...] place to sleep or slept in a jail (including now)? No 03/13/2022 Sex and Gender [...] - Weight 89.8 kg (198 lb) 11/20/2022 11:04 AM EDT Height 154.9 cm (5' 1) 11/20/2022 11:04 AM EDT Body Mass Index 37.41 11/20/2022 11:04 AM EDT documented in this encounter Progress Notes * Uriel Hutton MD - 11/20/2022 11:20 AM EDT [facility] MD [place] Comfort Torres, PRE PRESS PROOFER [address] [place] [address] Comfort Urban APRN [address] [place] [address] Dear Colleagues, I had the pleasure of seeing this patient at the [facility] for follow-up evaluation. Diagnosis/Procedure: L4-L5 decompression and fusion for lumbar stenosis with neurogenic claudication 01/05/2022 Interval History: Patient reports doing great-I am so excited and is very happy with her progress. Preoperatively she reported low back pain radiating to her bilateral lower extremities, all of which have resolved. She is able to walk without pain and perform her work at the [employer] without any difficulty. Exam: Alert and oriented patient. Surgical incision well-healed. Sensation grossly intact light touch. LE 5/5 strength in hip flexors, quads, hamstrings, EHL, anterior tib, pronation of the ankles. Imaging: Personal review of lumbar spine radiographs demonstrates grade 1 retrolisthesis of L4-L5, though with similar alignment compared to radiographs 03/27/2022. CT of the chest, abdomen, and pelvis from 07/05/2022 was also reviewed, which demonstrates incomplete fusion of the L4-L5 level. Recommendations and Plan: 37-year-old female 10 months status post L4-L5 decompression and fusion for lumbar stenosis with neurogenic claudication. Patient is very happy with her postoperative function and pain levels. Imagesdemonstrate mild retrolisthesis and incomplete fusion at surgical level, though she is less than 1 year from surgery symptom-free. Plan for follow-up evaluation in 6 months with repeat lumbar radiographs at the time of appointment. Uriel Hutton MD Orthopaedic Surgery 11/20/2022 Spine Center Response Trends Patient-reported scores: 10/10/2021 11:24 AM 10/10/2021 11:27 AM myD-H Spine Questionnaire responses Oswestry Disability Index (Range: 0-100) 52 (Severe disability) PROMIS-10 Physical Health Score 29.6 PROMIS-10 Mental Health Score 43.5 * Charly Wilkins MD - 11/20/2022 11:20 AM EDT Images from the original note were not included. [facility] MD MS Comfort Torres, SELVIN [address] [place] [address] Comfort Urban APRN [address] [place] [address] Dear Colleagues, I had the pleasure of seeing this patient at the [facility] for follow-up evaluation. Diagnosis/Procedure: Procedure: Posterior lumbar decompression fusion L4-5 01/05/2022. Unable to place a TLIF. Complication: Lysis and borken screws bilaterally at L5 with increased lithesis still with possiblefusion at L4-5 Diagnosis: 1. 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 7 mm listhesis on flexion. Correction to 4 mm on extension. 2. Bilateral L5 radiculopathy as well as back pain. 3. Obesity BMI 41 4. Medical issues including cardiology, neurology. Hemoglobin A1c 5.2 First postoperative visit: Doing well. Sutures to stay in. Get a nursing visit for removal. X-rays consistent with the surgical intervention. Physical therapy she can continue with her VNA at home and will start outpatient once VNA leaves. She had a follow-up with neurology and cardiology. Overall doing well. Second postoperative visit 03/27/2022: Patient doing well. No significant leg pain. Third Postoperative visit 06/19/2022: She has been working at the [employer]. She has some left side tightness in her muscles. She enjoys her he was seen in her car which is significant help. X-rays are consistent with surgical intervention. Imaging: Based on my independent interpretation AP and lateral views lumbar spine reviewed no evidence of significant change. Fourth postop visit 11/20/2022: Interval History: Patient reports doing great-I am so excited and is very happy with her progress. Preoperatively she reported low back pain radiating to her bilateral lower extremities, all of which have resolved. She is able to walk without pain and perform her work at the [employer] without any difficulty. Exam: Alert and oriented patient. Surgical incision well-healed. Sensation grossly intact light touch. LE 5/5 strength in hip flexors, quads, hamstrings, EHL, anterior tib, pronation of the ankles. Imaging: Interpreted personally based reading the images. Personal review of lumbar spine radiographs demonstrates grade 1 retrolisthesis of L4-L5, though with similar alignment compared to radiographs 03/27/2022. CT of the chest, abdomen, and pelvis from 07/05/2022 was also reviewed, which demonstrates incomplete fusion of the L4-L5 level. Recommendations and Plan: 37-year-old female 10 months status post L4-L5 decompression and fusion for lumbar stenosis with neurogenic claudication. Patient is very happy with her postoperative function and pain levels. Imagesdemonstrate mild retrolisthesis and incomplete fusion at surgical level, though she is less than 1 year from surgery symptom-free. Plan for follow-up evaluation in 6 months with repeat lumbar radiographs at the time of appointment. Charly Wilkins MD [facility] Spine Surgery - Department of Orthopaedic Surgery Aircraft Refueller - Department of Orthopedic Surgery / Academics and Research Bank Runner Professor - [facility] 11/25/2022 Uriel Hutton MD Orthopaedic Surgery 11/20/2022 Spine Center Response Trends Patient-reported scores: 10/10/2021 11:24 AM 10/10/2021 11:27 AM myD-H Spine Questionnaire responses Oswestry Disability Index (Range: 0-100) 52 (Severe disability) PROMIS-10 Physical Health Score 29.6 PROMIS-10 Mental Health Score 43.5 documented in this encounter Plan of Treatment Upcoming Encounters Date Type Department Care Team (Late st Contact Info) Description 12/24/2023 10:00 AM EDT [place] [address] Tereso Mohan MD [facility] [place] [address] 12/24/2023 10:30 AM EDT Appointment XRay at [address] [place] [phone] Shelby Aaron APRN [facility] [place] [address] 12/24/2023 11:30 AM EDT Office Visit [place] [phone] Shelby Aaron APRN [facility] [place] [address] documented as of this encounter Results * XR Lumbar Spine [...] who have questions please contact the health animal care provider that requested your imaging first. ? Narrative 04/30/2023 9:43 AM EST EXAMINATION: XR [...] patients who have questions please contactthe health animal care provider that requested your imaging first. Charly Wilkins MD IMG DX ORDERABLES documented in this encounter Visit Diagnoses Diagnosis s/p L4-5 decompression, PSIF Dr. 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 Wilkins Thoracic or lumbosacral neuritis or radiculitis, unspecified documented in this encounter Care Teams Mold Technician Relationship Specialty Start Date End Date Comfort Urban, PRE PRESS PROOFER [address] [facility] [place] [address] PCP - General Family Medicine 07/19/17 03/11/23 documented as of this encounter
--- OUTSIDE RECORDS SUMMARY | 2023-11-16 14:11 | XMS_ITS | Encounter Summary ---
Author Organization [facility] [place] [address] Care Team Providers Care Stemmer Machine Name Role Phone Comfort Urban APRN Primary Care Provider [phone] Reason for Visit * Reason Onset Date Comments Medication Refill 10/04/2022 Encounter Details Date Type Department Care Team (Late st Contact Info) Description 10/04/2022 [place] [address] Tereso Mohan MD [facility] [place] [address] Social History Tobacco Use Types Packs/Day Years [...] in a fdc (including now)? No 03/13/2022 Sex and Gender Information Value Date Recorded Sex Assigned at Not on file Gender Identity Not on file Sexual Orientation Not on file documented as of this encounter Miscellaneous Notes * Telephone Encounter - Bette Carver RN - 10/04/2022 5:03 PM EDT Medication request for : Clobazam 10 mg tablets. 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 She is currently maintainedon clobazam for mood stabilization and also to cover the possibility of epilepsy. She has luckily had no repeat seizures under this current regimen, so we will continue this. Last appt: 09/17/22 Next appt: 12/19/22 documented in this encounter Plan of Treatment Upcoming Encounters Date Type Department Care Team (Late st Contact Info) Description 12/24/2023 10:00 AM EDT [place] [address] Tereso Mohan MD [facility] [place] [address] 12/24/2023 10:30 AM EDT Appointment XRay at [address] [place] [phone] Shelby Aaron COOLING PIPE INSPECTOR [facility] [place] [address] 12/24/2023 11:30 AM EDT Office Visit [place] [phone] Shelby Aaron COOLING PIPE INSPECTOR [facility] [place] [address] documented as of this encounter Visit Diagnoses Not on filedocumented in this encounter Care Teams Stemmer Machine Relationship Specialty Start Date End Date Comfort Urban APRN [address] [place] [address] PCP - General Family Medicine 07/19/17 03/11/23 documented as of this encounter
--- OUTSIDE RECORDS SUMMARY | 2023-11-16 14:11 | XMS_ITS | Encounter Summary ---
Author Organization [facility] Address [facility] [place] [address] Care Team Providers Care State Appellate Clerk Name Role Phone Wily Lilian Hicks APRN Primary Care Provider [phone] Encounter Details Date Type Department Care Team (Latest Contact Info) Description 03/21/2023 Travel Social History Tobacco Use Types Packs/Day [...] place to sleep or slept in a skilled nursing (including now)? No 03/13/2022 Sex and Gender Information Value Date Recorded Sex Assigned at Not on file Gender Identity Not on file Sexual Orientation Not on file documented as of this encounter Plan of Treatment Upcoming Encounters Date Type Department Care Team (Late st Contact Info) Description 12/24/2023 10:00 AM EDT Office Visit Neurology at [place] [phone] Tereso Mohan MD [facility] [place] [address] 12/24/2023 10:30 AM EDT Appointment XRay at [address] [place] [phone] Shelby Aaron DIRECTOR [employer] [place] [address] 12/24/2023 11:30 AM EDT Office Visit [facility] [place] [phone] Shelby Aaron DIRECTOR [facility] [place] [address] documented as of this encounter Visit Diagnoses Not on filedocumented in this encounter Care Teams State Appellate Clerk Relationship Specialty Start Date End Date Lilian Julien APRN [facility] [place] [address] PCP - General Family Medicine 03/12/23 documented as of this encounter
--- OUTSIDE RECORDS SUMMARY | 2023-11-16 14:11 | XMS_ITS | Encounter Summary ---
[place] [address] Care Team Providers Care Nib Adjuster Name Role Phone Lilian Julien APRN Primary Care Provider [phone] Reason for Referral * Diagnostic Test (Routine) - Closed Specialty Diagnoses / Procedures Referred By Contac t Referred To Contact Radiology Diagnoses Cervical spondylosis with myelopathy Procedures CT Cervical Spine wo Contrast Charly Wilkins MD [facility] [place] [address] [facility] [place] [address] Referral ID Status Reason Start Date Expiration Date V isits Requested Visits Authorized [id number] Closed Specialty Service Requested 04/30/2023 10/28/2024 1 1 Reason for Visit * Reason Comments Follow-up F/U to L4-L5 decompr ession fusion and neck pain Encounter Details Date Type Department Care Team (Late st Contact Info) Description 04/30/2023 8:00 AM EST Office Visit [facility] [place] [address] Charly Wilkins MD [facility] [place] [address] Cervical spondylosis with myelopathy; H/O lumbosacral spine surgery; Neck pain Social History Tobacco Use Types Packs/Day Years [...] slept in a custodial (including now)? No 03/13/2022 Sex and Gender [...] - Inhaled Oxygen Concentration - - Weight 88.9 kg (196 lb) 04/30/2023 7:46 AM EST Height 154.9 cm (5' 1) 04/30/2023 7:46 AM EST Body Mass Index 37.03 04/30/2023 7:46 AM EST documented in this encounter Progress Notes * Charly Wilkins MD - 04/30/2023 8:00 AM EST Images from the original note were not included. [facility] Charly Wilkins MD MS Charly Wilkins MD [facility] [place] [address] Lilian Julien, DEVELOPMENT EDUCATOR [address] / [facility] [id number] Dear Colleagues, I had the pleasure of seeing this patient at the [facility] @ [facility] for surgical evaluation. 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 My Neck balance hands keeps me from this activity because fatigue arm neck . This activity goal is important to me because Job . My goal is to overcome this obstacle. I would like to complete my goal within [address] Mohan Neu[facility] [place] Mohan noted MRI of the cervical spine from 03/22/2023 with C5-6 disc osteophyte with severe stenosis. Noted neck and arm pain on the right side. Noted balance hand function difficulty. Patient seen in conjunction with the chief resident of spine service. Please see his clinical notesfor details. Diagnosis/Procedure: -Severe stenosis C5-C6/C6-7 with with increased signal in the spinal cord consistent with myelomalacia -Cervical myelopathy with upper extremity weakness and dysfunction with handwriting changes difficulty opening her jar, hyperreflexia, positive Romberg and tandem gait. -History of L4-5 instrumented fusion 01/05/2022 doing well. Surgery performed by Charly Wilkins MD Prognostic factors: BMI of 37. History of seizures. None recent. Please see Dr. Mohan's note. Interval History: The patient states she is doing well since her L4-5 lumbar decompression and fusion on 01/05/22. Sheat times has left hip pain that wraps around the back but her claudication symptoms have not returned. Her new problem is she is having increased numbness and weakness in her hands as well as balance problems. She also has pain in the neck down both arms. 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 The symptoms bother her at night as well. Her hand writing has gotten worse per her report. Difficulty lifting things at home due to weakness. She has not had any PT or injections for this. 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 No other issues with cardiology. Hx of seizuresunder good control per recent Neurology visit. She remains on a baby aspirin and naproxen for migraines. Boyfriend smokes cigarettes, however patient smokes mariajuana regularly. Exam: Alert and oriented patient. Gait within normal limits. Able to walk on toes and heels without difficulty. Intact single-leg stance. Romberg is negative. Tandem gait is intact. Single heel raise intact bilaterally. No coronal or sagittal deformity. No spasticity. In the sitting position no pain with internal/external rotation of hips. Pain over left greater trochanter. Negative straight leg raise. Negative clonus. No significant skin changes. Sensation decreased in the hands bilaterally, grossly intact light touch throughout upper and lowerextremities. LE 5/5 strength in hip flexors, quads, hamstrings, EHL, anterior tib, pronation of the ankles. 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 Fine hand motor function intact with good extension as well as finger tapping. Reflexes symmetric in upper and lower extremities though increased. Positive Delgado's bilaterally Shoulder exam: Negative impingement sign. Full range of motion of the shoulders. Neck exam: Negative Spurling's. Negative Lhermitte's. Imaging independent review: -MRI 03/22/23 with severe stenosis at C5-6/C6-7 level with cord signal change. Adjacent segments with mild stenosis. There is concern for OPLL. Ossification is present on on CT cervical spine on 10/21/20. -CT of the cervical spine 10/21/2020 which was performed after a fall. Shows ossified fragment posterior to C5-6 as well as significant endplate changes at C6-7. -Xray Lumbar spine 04/30/22: Status post L4-5 decompression and fusion with maintained alignment andno evidence of screw malposition. Recommendation: Patient has severe stenosis with myomalacia and associated cervical myelopathy. This is a surgical indication. Conservative treatment is not appropriate as option for her. Therefore would not send her for epidural steroid injections or conservative care. We discussed the risk and benefits with the patient. There is a risk of paralysis, C5 palsy, pseudoarthrosis, instrumentation problems, infection. Other risks include Bleeding, infection, nerve injury, spinal cord injury including paralysis, weakness including C5 palsy, numbness, spinal fluid leak,continued worsening neck, or other pain, loss of bowel, bladder, or sexual function, failure to improve, major blood vessel injury, instability, additional surgery, adjacent segment degeneration, stiffness, blindness, blood clots, fusion failure or hardware malposition or failure, bone graft donor site pain, scar formation, stroke, other potential risks and complications including . Surgical paperwork was performed today. Pending the CT scan will have consent signed on day of surgery. Proposed procedure is either a C6 corpectomy with instrumentation versus a posterior decompression instrumented fusion from C5-C7 possible extension to T1. Plan: X-rays AP and lateral flexion-extension views of the cervical spine CT of the cervical spine without contrast to evaluate for OPLL. Sincerely, Charly Wilkins MD MS [facility] Fish Smoker - Orthopedic Spine Surgery Topographical Surveyor - Department of Orthopedic Surgery / [employer] Gem Technician - [facility] 04/30/2023 Spine Center Response Trends Patient-reported scores: 10/10/2021 11:24 AM 10/10/2021 11:27 AM myD-H Spine Questionnaire responses Oswestry Disability Index (Range: 0-100) 52 (Severe disability) PROMIS-10 Physical Health Score 29.6 PROMIS-10 Mental Health Score 43.5 * Moise Rivera MD - 04/30/2023 8:00 AM EST Images from the original note were not included. [facility] Charly Wilkins MD MS Charly Wilkins MD [facility] [place] [address] Lilian Julien, DEVELOPMENT EDUCATOR [address] / [facility] [id number] Dear Colleagues, I had the pleasure of seeing this patient at the [facility] @ [facility] for follow-up evaluation. Diagnosis/Procedure: Severe stenosis C5-C6 with myelopathy. Interval History: The patient states she is doing well since her L4-5 lumbar decompression and fusion on 01/05/22. Sheat times has left hip pain that wraps around the back but her claudication symptoms have not returned. Her new problem is she is having increased numbness and weakness in her hands as well as balance problems. She also has pain in the neck down both arms. 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 The symptoms bother her at night as well. Her hand writing has gotten worse per her report. Difficulty lifting things at home due to weakness. She has not had any PT or injections for this. 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 No other issues with cardiology. Hx of seizuresunder good control per recent Neurology visit. She remains on a baby aspirin and naproxen for migraines. Boyfriend smokes cigarettes, however patient smokes mariajuana regularly. Exam: Alert and oriented patient. Gait within normal limits. Able to walk on toes and heels without difficulty. Intact single-leg stance. Romberg is negative. Tandem gait is intact. Single heel raise intact bilaterally. No coronal or sagittal deformity. No spasticity. In the sitting position no pain with internal/external rotation of hips. Pain over left greater trochanter. Negative straight leg raise. Negative clonus. No significant skin changes. Sensation decreased in the hands bilaterally, grossly intact light touch throughout upper and lowerextremities. LE 5/5 strength in hip flexors, quads, hamstrings, EHL, anterior tib, pronation of the ankles. 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 Fine hand motor function intact with good extension as well as finger tapping. Reflexes symmetric in upper and lower extremities though increased. Positive Delgado's bilaterally Shoulder exam: Negative impingement sign. Full range of motion of the shoulders. Neck exam: Negative Spurling's. Negative Lhermitte's. Imaging: MRI 03/22/23 with severe stenosis at C5-6 level with cord signal change. Adjacent segments with mildstenosis. There is concern for OPLL that is present on on CT cervical spine on 10/21/20. Xray Lumbar spine 04/30/22: Status post L4-5 decompression and fusion with maintained alignment and no evidence of screw malposition. Recommendations and Plan: Discussed at length with the patient the nature of her condition. Given her progressive myelopathicsymptoms and severe stenosis with cord signal change on MRI, we would recommend surgical decompression. We discussed the goal of surgery is to prevent progression of symptoms and current symptoms maynot improve. The patient elected to proceed with surgery after hearing risks and benefits. We will plan for additional imaging and consent on day of surgery. Plan: C6 corpectomy vs C5-7 or C5-T1 posterior decompression and fusion. -CT cervical spine to assess for OPLL and pedicles -Xray Cervical Spine AP/Lat/Flex/Extension to check for stability Moise Rivera MD Orthopaedic Surgery 04/30/2023 Spine Center Response Trends Patient-reported scores: 10/10/2021 11:24 AM 10/10/2021 11:27 AM myD-H Spine Questionnaire responses Oswestry Disability Index (Range: 0-100) 52 (Severe disability) PROMIS-10 Physical Health Score 29.6 PROMIS-10 Mental Health Score 43.5 documented in this encounter Plan of Treatment Upcoming Encounters Date Type Department Care Team (Late st Contact Info) Description 12/24/2023 10:00 AM EDT [place] [address] Tereso Mohan MD [facility] [place] [place] [address] 12/24/2023 10:30 AM EDT Appointment XRay at [address] [place] [id number] Shelby Aaron APRN [facility] [place] [address] 12/24/2023 11:30 AM EDT Office Visit [place] [address] Shelby Aaron APRN [facility] [place] [address] documented as of this encounter Results * CT Cervical Spine [...] who have questions please contact the health child caregiver that requested your imaging first. ? Electronically signed by: Roberta Miller [facility] ([phone]), at 05/14/2023 12:11 PM Narrative 05/14/2023 12:11 [...] patients who have questions please contactthe health child caregiver that requested your imaging first. Electronically signed by: Roberta Miller [facility]([phone]), at 05/14/2023 12:11 PM Charly Wilkins MD IM CT ORDERABLES * XR Cervical Spine 4 or 5 [...] who have questions please contact the health child caregiver that requested your imaging first. ? Electronically signed by: Daniel Monge MD, [facility] ([phone]), at 04/30/2023 11:14 AM Narrative 04/30/2023 11:14 [...] patients who have questions please contactthe health child caregiver that requested your imaging first. Electronically signed by: Daniel Monge MD, [facility]([phone]), at 04/30/2023 11:14 AM Charly Wilkins MD IMG DX ORDERABLES documented in this encounter Visit Diagnoses Diagnosis Cervical spondylosis with myelopathy H/O lumbosacral spine surgery Personal history of surgery to other organs Neck pain Cervicalgia Cervical spondylosis with myelopathy Cervical spondylosis with myelopathy documented in this encounter Care Teams Nib Adjuster Relationship Specialty Start Date End Date Lilian Julien, DEVELOPMENT EDUCATOR [address] [place] [address] PCP - General Family Medicine 03/12/23 documented as of this encounter
--- OUTSIDE RECORDS SUMMARY | 2023-11-16 14:11 | XMS_ITS | Encounter Summary ---
[place] [address] Care Team Providers Care Commercial Lines Insurance Agent Name Role Phone Lilian Julien APRN Primary Care Provider [phone] Encounter Details Date Type Department Care Team (Latest Contact Info) Description 05/21/2023 1:30 PM EDT Laboratory [place] [phone] Osteoarthritis of cervical spine with myelopathy; Cervical spondylosis with myelopathy Social History Tobacco Use Types Packs/Day Years [...] place to sleep or slept in a group home (including now)? No 03/13/2022 IPV Inpatient Questions [...] 10:00 AM EDT [place] [address] Tereso Mohan MD [facility] [place] [address] 12/24/2023 10:30 AM EDT Appointment XRay at [address] [place] [phone] Shelby Aaron APRN [facility] [place] [address] 12/24/2023 11:30 AM EDT Office Visit [place] [address] Shelby Marquez APRN [facility] [place] [address] documented as of this encounter Procedures Procedure Name Priority Date/Time Associated Diagnosis Comments ABORH RECHECK STATUS Routine 05/21/2023 1:37 PM EDT HEMOGRAM Routine 05/21/2023 1:37 PM EDT Cervical spondylosis with myelopathy DIFFERENTIAL, AUTOMATED Routine 05/21/2023 1:37 PM EDT Cervical spondylosis with myelopathy TYPE AND SCREEN, SDP (FUTURE SURGERY, [facility] SAME DAY PROGRAM ONLY) Routine 05/21/2023 1:37 PM EDT Osteoarthritis of cervical spine with myelopathy CBC (WITH DIFF) Routine 05/21/2023 1:37 PM EDT Cervical spondylosis with myelopathy BASIC METABOLIC PANEL Routine 05/21/2023 1:37 PM EDT Cervical spondylosis with myelopathy documented in this encounter Results * ABORH Recheck Status (05/21/2023 1:37 PM EDT) ABORH Type Recheck Completed [facility] Blood 05/21/2023 1:37 PM EDT 05/21/2023 1:40 PM EDT Narrative Resulting Agency Comment Spec In Lab Charly Wilkins MD BLOOD BANK LAB ORDER WILFREDO [facility] [address] [address] * (ABNORMAL) Differential, Automated (05/21/2023 1:37 PM EDT) Neutrophil % 56.8 % [facility] Neutrophil Absolute 5.46 1.70 - 6.10 x10(3)/mc L [facility] Lymph % 27.4 % [facility] Lymphocytes Abs 2.6 0.9 - 3.2 x10(3)/mc L [facility] Monocyte % 9.1 % [facility] Monocyte Abs 0.9 0.3 - 0.9 x10(3)/[facility] Eos % 5.7 % [facility] Eosinophils Abs 0.6(H) 0.0 - 0.4 x10(3)/[facility] Basophil % 0.5 % [facility] Baso Absolute 0.0 0.0 - 0.1 x10(3)/[facility] Immature Gran % 0.50 % [facility] Comment: Immature granulocytes(IG's)percentage and absolute count will include metamyelocytes, myelocytes, and promyelocytes. Blood smears from CBCs yielding IG's will be scanned manually for concordance. If this scan disagrees with the automated IG or if promyelocytes are noted, a manual differential will be performed. Immature Gran Absolute 0.05(H) 0.00 - 0.04 x10(3)/[facility] Blood 05/21/2023 1:37 PM EDT 05/21/2023 1:41 PM EDT Narrative Resulting Agency Comment Spec In Lab Charly Wilkins MD HEMATOLOGY ORDERABLE S Performing Organization Address City/State/[facility] Co de Phone Number [facility] [place] [address] * (ABNORMAL) Hemogram (05/21/2023 1:37 PM EDT) White Blood Cell 9.6(H) 4.0 - 9.5 x10(3)/[facility] Red Blood Cell 5.11 4.00 - 5.21 x10(6)/[facility] Hemoglobin 15.1 11.7 - 15.5 g/dL [facility] Hematocrit 43.8 35.7 - 45.8 % [facility] Mean Cell Volume 85.7 82.6 - 94.4 fL [facility] Mean Cell Hemoglobin 29.5 27.1 - 32.0 pg [facility] Mean Cell Hemoglobin Concentration 34.5 31.7 - 35.0 g/dL [facility] Platelet 310 145 - 357 x10(3)/mc L [facility] RDW Standard Deviation 37.6 37.0 - 46.0 fL [facility] RDW coefficient of variation 11.9 11.5 - 14.1 % [facility] Mean Platelet Volume 8.6 7.6 - 12.9 fL [facility] NRBC% auto 0.0 % [facility] NRBC Absolute 0.000 0.000 - 0.000 x10(3)/mc L [facility] Blood 05/21/2023 1:37 PM EDT 05/21/2023 1:41 PM EDT Narrative Resulting Agency Comment Spec In Lab Charly Wilkins MD HEMATOLOGY ORDERABLE S [facility] [place] [address] * (ABNORMAL) Basic Metabolic Panel (non-fasting) (05/21/2023 1:37 PM EDT) Glucose 93 65 - 199 mg/dL [facility] Comment:Diabetes: >=200 mg/d L plus symptoms Blood Urea Nitrogen 18 8 - 18 mg/dL [facility] Creatinine 0.68(L) 0.70 - 1.20 mg/dL [facility] Sodium 136 135 - 145 mmol/L [facility] Potassium 4.6 3.5 - 5.0 mmol/L [facility] Comment: Please note: ??Patients with WBC >100,000 may have falsely elevated Potassium levels. ??For accurate Potassium quantification in these patients send serum separator tube (gold top) for subsequent determinations. ??Contact the Clinical Chemistry Laboratory if there are any questions. Chloride 103 98 - 107 mmol/L [facility] Carbon Dioxide 20(L) 22 - 31 mmol/L [facility] Anion Gap 13 5 - 15 mmol/L [facility] Calcium 9.9 8.5 - 10.5 mg/dL [facility] Est Glomerular Filtration Rate 114 >=60 mL/min/1. 73 m?? [facility] Comment: This patient's estimated GFR was [...] and symptoms in addition to eGFR. Blood 05/21/2023 1:37 PM EDT 05/21/2023 1:41 PM EDT Narrative Resulting Agency Comment Spec In Lab Charly Wilkins MD CHEMISTRY ORDERABLES Performing Organization Address City/[facility]/ZIP Co de Phone Number [facility] [place] [address] * Type and Screen Future Surgery, [facility] SAME DAY PROGRAM ONLY) (05/21/2023 1:37 PM EDT) ABORH Type O POSITIVE [facility] Patient BB History Found [facility] Expires at [id number] on: 06/13/2023 [facility] Ab Screen Interp Negative [facility] Blood 05/21/2023 1:37 PM EDT 05/21/2023 1:37 PM EDT Narrative Resulting Agency Comment Spec In Lab Charly Wilkins MD BLOOD BANK LAB ORDER WILFREDO Performing Organization Address City/[facility]/ZIP Co de Phone Number [facility] [place] [address] documented in this encounter Visit Diagnoses Diagnosis Osteoarthritis of cervical spine with myelopathy Cervical spondylosis with myelopathy documented in this encounter Care Teams Commercial Lines Insurance Agent Relationship Specialty Start Date End Date Lilian Jul[place] [address] PCP - General Family Medicine 03/12/23 documented as of this encounter
--- OUTSIDE RECORDS SUMMARY | 2023-11-16 14:11 | XMS_ITS | Encounter Summary ---
[place] [address] Care Team Providers Care Pipe Line Walker Name Role Phone Wily Lilian Hicks APRN Primary Care Provider [phone] Encounter Details Date Type Department Care Team (Latest Contact Info) Description 03/12/2023 11:25 AM EST Laboratory Appointment Lab [address] [place] [phone] Cervical radiculopathy; Seizures Social History Tobacco Use Types Packs/Day [...] 10:00 AM EDT Office Visit Neurology at [place] [phone] Tereso Mohan MD [facility] [place] [address] 12/24/2023 10:30 AM EDT Appointment XRay at [address] [place] [address] Shelby Aaron APRN [facility] [place] [address] 12/24/2023 11:30 AM EDT Office Visit [facility] [place] [phone] Shelby Aaron APRN [facility] [place] [address] documented as of this encounter Procedures Procedure Name Priority Date/Time Associated Diagnosis Comments CLOBAZAM LEVEL Routine 03/12/2023 10:58 AM EST MISCELLANEOUS LAB REQUEST Routine 03/12/2023 10:58 AM EST Cervical radiculopathy Seizures LYME IGG & IGM ANTIBODY Routine 03/12/19 24 10:58 AM EST Cervical radiculopathy Seizures GANGLIOSIDE ANTIBODIES Routine 10:58 AM EST Cervical radiculopathy Seizures HEMOGRAM Routine 03/12/2023 10:58 AM EST Cervical radiculopathy Seizures DIFFERENTIAL, AUTOMATED Routine 03/12/19 10:58 AM EST Cervical radiculopathy Seizures GABAPENTIN LEVEL Routine 03/12/2023 10:5 8 AM EST Cervical radiculopathy Seizures SEDIMENTATION RATE Routine 03/12/2023 10 :58 AM EST Cervical radiculopathy Seizures CBC (WITH DIFF) Routine 03/12/2023 10:58 AM EST Cervical radiculopathy Seizures RHEUMATOID FACTOR, QUANT Routine 03/12/2023 10:58 AM EST Cervical radiculopathy Seizures ANGIOTENSIN CONVERTING ENZYME Routine 03/12/2023 10:58 AM EST Cervical radiculopathy Seizures HC DNA AB DS (SKOKOMISH) Routine 03/12/2023 10:58 AM EST Cervical radiculopathy Seizures TSH Routine 03/12/2023 10:58 AM EST Cervical radiculopathy Seizures T4 TOTAL Routine 03/12/2023 10:58 AM EST Cervical radiculopathy Seizures HC SERUM PROT. ELECTROPHORESIS Routine 03/12/2023 10:58 AM EST Cervical radiculopathy Seizures VITAMIN B12 Routine 03/12/2023 10:58 AM EST Cervical radiculopathy Seizures HEPATIC FUNCTION PANEL Routine 10:58 AM EST Cervical radiculopathy Seizures BASIC METABOLIC PANEL Routine 03/12/2023 10:58 AM EST Cervical radiculopathy Seizures documented in this encounter Results * (ABNORMAL) Clobazam Level (03/12/2023 10:58 AM EST) Pathologist [facility] Clobazam (JULY) 355.0(H) 30 - 300 ng/mL [facility] Comment: Test Performed by: [facility] [place] [address] Staff Psychologist: Tito King M.D. Ph.D.; CLIA# [id number] Desmethylclobazam (JULY) 3580.0(H) 300 - 3000 ng/mL [facility] Comment: ADDITIONAL INFORMATION This test was developed and its performance characteristics determined by [facility] in a manner consistent with CLIA requirements. This test has not been cleared or approved by the U.S. Food and Drug Administration. Test Performed by: [facility] [place] [address] Staff Psychologist: Tito King M.D. Ph.D.; CLIA# [id number] Blood Venous Draw / Unknown 03/12/2023 10:58 AM EST 03/12/2023 1:41 PM EST Narrative Resulting Agency Comment Spec In Lab Tereso Mohan MD LAB SEND OUT ORDERAB LES [facility] [place] [address] * (ABNORMAL) Differential, Automated (03/12/2023 10:58 AM EST) Neutrophil % 56.7 % [facility] Neutrophil Absolute 6.17(H) 1.70 - 6.10 x10(3)/mc L [facility] Lymph % 27.0 % [facility] Lymphocytes Abs 2.9 0.9 - 3.2 x10(3)/[facility] Monocyte % 9.6 % [facility] Monocyte Abs 1.0(H) 0.3 - 0.9 x10(3)/[facility] Eos % 5.4 % [facility] Eosinophils Abs 0.6(H) 0.0 - 0.4 x10(3)/[facility] Basophil % 0.6 % [facility] Baso Absolute 0.1 0.0 - 0.1 x10(3)/[facility] Immature Gran % 0.70 % [facility] Comment: Immature granulocytes(IG's)percentage and absolute count will include metamyelocytes, myelocytes, and promyelocytes. Blood smears from CBCs yielding IG's will be scanned manually for concordance. If this scan disagrees with the automated IG or if promyelocytes are noted, a manual differential will be performed. Immature Gran Absolute 0.08(H) 0.00 - 0.04 x10(3)/ L [facility] Blood 03/12/2023 10:5 8 AM EST 03/12/2023 11:02 AM EST Narrative Resulting Agency Comment Spec In Lab Tereso Mohan MD HEMATOLOGY ORDERABLE S [facility] [place] [address] * (ABNORMAL) Hemogram (03/12/2023 10:58 AM EST) White Blood Cell 10.9(H) 4.0 - 9.5 x10(3)/[facility] Red Blood Cell 4.83 4.00 - 5.21 x10(6)/[facility] Hemoglobin 14.6 11.7 - 15.5 g/dL [facility] Hematocrit 42.7 35.7 - 45.8 % [facility] Mean Cell Volume 88.4 82.6 - 94.4 fL [facility] Mean Cell Hemoglobin 30.2 27.1 - 32.0 pg [facility] Mean Cell Hemoglobin Concentration 34.2 31.7 - 35.0 g/dL [facility] Platelet 337 145 - 357 x10(3)/mc L [facility] RDW Standard Deviation 39.4 37.0 - 46.0 fL [facility] RDW coefficient of variation 12.2 11.5 - 14.1 % [facility] Mean Platelet Volume 8.7 7.6 - 12.9 fL [facility] NRBC% auto 0.0 % [facility] NRBC Absolute 0.000 0.000 - 0.000 x10(3)/mc L [facility] Blood 03/12/2023 10:5 8 AM EST 03/12/2023 11:02 AM EST Narrative Resulting Agency Comment Spec In Lab Tereso Mohan MD HEMATOLOGY ORDERABLE S Performing Organization Address City/State/[facility] Co de Phone Number [facility] [place] [address] * Ganglioside Antibodies (03/12/2023 10:58 AM EST) Asialo-GM1 Antibodies, IgG/IgM 37 0 - 50 Index Value [facility] GM1 Antibodies, IgG/IgM 9 0 - 50 Index Value [facility] GM2 Antibodies, IgG/IgM 6 0 - 50 Index Value [facility] GD1a Antibodies, IgG/IgM 7 0 - 50 Index Value [facility] GD1b Antibodies, IgG/IgM 17 0 - 50 Index Value [facility] GQ1b Antibodies, IgG/IgM 24 0 - 50 Index Value [facility] Comment: INTERPRETIVE INFORMATION: Ganglioside (Asialo-GM1, GM1, GM2, GD1a, GD1b, and GQ1b) Antibodies, IgG/IgM 29 IV or less: Negative 30-50 IV: Equivocal 51-100 IV: Positive 101 IV or greater: Strong Positive Ganglioside antibodies are associated with diverse peripheral neuropathies. ??Elevated antibody levels to ganglioside-monosialic acid (GM1), and the neutral glycolipid, asialo GM1 are associated with motor or sensorimotor neuropathies, particularly multifocal motor neuropathy. ??Anti-GM1 may occur as IgM (polyclonal or monoclonal) or IgG antibodies. ??These antibodies may also be found in patients with diverse connective tissue diseases as well as normal individuals. ??GD1a antibodies are associated with different variants of Guillain-[place] syndrome (GBS) particularly acute motor axonal neuropathy while GD1b antibodies are predominantly found in sensory ataxic neuropathy syndrome. ??Anti-GQ1b antibodies are seen in more than 80 percent of patients with Levy-Copeland syndrome and may be elevated in GBS patients with ophthalmoplegia. ??The role of isolated anti-GM2 antibodies is unknown. ??These tests by themselves are not diagnostic and should be used in conjunction with other clinical parameters to confirm disease. This test was developed and its performance characteristics determined by [facility]. It has not been cleared or approved by the US Food and Drug Administration. This test was performed in a CLIA certified laboratory and is intended for clinical purposes. Performed By: [facility] [address] [place] [id number] Dicer Operator: Wayne Womack MD, PhD CLIA Number: [id number] Blood 03/12/2023 10:5 8 AM EST 03/12/2023 3:11 PM EST Narrative Resulting Agency Comment Spec In Lab eTreso Mohan MD LAB SEND OUT ORDERAB LES [facility] [place] [address] * (ABNORMAL) Gabapentin level (03/12/2023 10:58 AM EST) Gabapentin Lvl (JULY) 0.7(L) 2.0 - 20.0 mcg/mL [facility] Comment: ADDITIONAL INFORMATION This test was developed and its performance characteristics determined by [facility] in a manner consistent with CLIA requirements. This test has not been cleared or approved by the U.S. Food and Drug Administration. Test Performed by: [facility] - [address] [address] Staff Psychologist: Tito King M.D. Ph.D.; CLIA# [id number] Blood 03/12/2023 10:5 8 AM EST 03/12/2023 1:41 PM EST Narrative Resulting Agency Comment Spec In Lab Authorizing Provider Result Kar Mohan MD LAB SEND OUT ORDERAB LES [facility] [place] [address] * (ABNORMAL) Angiotensin Converting Enzyme (03/12/2023 10:58 AM EST) [facility] Gokul (JULY) <5(L) 16 - 85 unit/L [facility] Comment: Test Performed by: [place] [address] Staff Psychologist: Tito King M.D. Ph.D.; CLIA# [id number] Blood 03/12/2023 10:5 8 AM EST 03/12/2023 1:41 PM EST Narrative Resulting Agency Comment Spec In Lab Tereso Mohan MD LAB SEND OUT ORDERAB LES Performing Organization Address City/[facility]/ZIP Co de Phone Number [facility] [place] [address] * T4 Total (03/12/2023 10:58 AM EST) [facility] T4 Total 6.3 5.3 - 11.6 mcg/dL [facility] Comment: Reference Interval (mcg/dL): Females: ??First Trimester: 6.3-13.5 ??Second Trimester: 7.1-14.3 ??Third Trimester: 6.9-14.1 Blood 03/12/2023 10:5 8 AM EST 03/12/2023 11:02 AM EST Narrative Resulting Agency Comment Spec In Lab Authorizing Provider Result Kar Mohan MD CHEMISTRY ORDERABLES Performing Organization Address City/[facility]/ZIP Co de Phone Number [facility] [place] [address] * Rheumatoid factor, quant (03/12/2023 10:58 AM EST) Rheumatoid Factor <10 <=14 IU/mL [facility] Blood 03/12/2023 10:5 8 AM EST 03/12/2023 11:02 AM EST Narrative Resulting Agency Comment Spec In Lab Tereso Mohan MD CHEMISTRY ORDERABLES Performing Organization Address [facility] de Phone Number [facility] [place] [address] * (ABNORMAL) Protein Electrophoresis, serum (03/12/2023 10:58 AM EST) Pathologist [facility] Total Prot Electrophoresis 7.5 6.1 - 8.0 g/dL [facility] Albumin Electrophoresis 4.70 3.20 - 5.20 g/dL [facility] Alpha 1 Globulin 0.18 0.10 - 0.30 g/dL [facility] Alpha 2 Globulin 0.93(H) 0.40 - 0.90 g/dL [facility] Beta Globulin 0.89 0.50 - 1.00 g/dL [facility] Gamma Globulin 0.80 0.50 - 1.30 g/dL [facility] M1 Band None Detected None Detected [facility] Blood 03/12/2023 10:5 8 AM EST 03/12/2023 11:02 AM EST Narrative Resulting Agency Comment Spec In Lab Authorizing Provider Result Kar Mohan MD CHEMISTRY ORDERABLES Performing Organization Address [facility] de Phone Number [facility] [place] [address] * SAVANNAH Antibody Screen (03/12/2023 10:58 AM EST) Pathologist [facility] SAVANNAH Ab Screen Negative Negative [facility] Comment: This antinuclear antibody (SAVANNAH) screen is a qualitative test performed using a fluoroenzyme immunoassay on the [employer] 250 analyzer. This screen is designed to detect antibodies to U1RNP, SS-A/Ro, SS-B/La, centromere B, Scl-70, Melissa-1, and Sm(Ray) proteins in serum samples. Antibodies to other nuclear antibodies will not be detected with this assay. This SAVANNAH screen is also performed in concert with a quantitative for IgG antibodies to dsDNA. Please note that as of 12/26/2021 that this testing is performed by the Special Chemistry Laboratory at [facility]. This change in testing location is associated with a change is testing method and reference intervals. Please review the results of this test in association with the posted reference intervals. dsDNA Ab 0.9 <=15.0 IU/mL [facility] Comment: <10 negative 10-15 equivocal >15 positive This dsDNA antibody result was generated using a fluoroenzyme immunoassay on the [employer] 250 analyzer. This quantitative test is designed to detect IgG antibodies directed against double stranded DNA in human serum. The presence of antibodies that recognize dsDNA is a highly specific marker for systemic lupus erythematosus. Please note that as of 12/26/2021 that this testing is performed by the [facility] Laboratory at [facility]. This change in testing location is associated with a change is testing method and reference intervals. Please review the results of this test in association with the posted reference intervals. Blood 03/12/2023 10:5 8 AM EST 03/13/2023 7:32 AM EST Narrative Resulting Agency Comment Spec In Lab Tereso Mohan MD LAB SEND OUT ORDERAB LES Performing Organization Address City/[facility]/ZIP Co de Phone Number [facility] [place] [address] * Lyme IgG & IgM Antibody (03/12/2023 10:58 AM EST) Lyme Antibody Negative Negative [facility] Lyme Ab Comment Negative result does not exclude possibility of infection. [facility] Comment: Please note that as of 07/10/2022 that this testing is performed by the Special Chemistry Laboratory at [facility]. This change in testing location is associated with a change in testing methodology. Blood 03/12/2023 10:5 8 AM EST 03/13/2023 7:32 AM EST Narrative Resulting Agency Comment Spec In Lab Tereso Mohan MD IMMUNOLOGY ORDERABLE S Performing Organization Address City/[facility]/ZIP Co de Phone Number [facility] [place] [address] * Sedimentation rate (03/12/2023 10:58 AM EST) Sedimentation Rate Automated 27 2 - 37 mm/hr [facility] Comment: Effective February 11, 2019 new capillary photometric technology has resulted in a change in reference ranges. It is recommended that each ESR result be reviewed with its own age appropriate reference range. Blood 03/12/2023 10:5 8 AM EST 03/12/2023 11:02 AM EST Narrative Resulting Agency Comment Spec In Lab Tereso Mohan MD HEMATOLOGY ORDERABLE S Performing Organization Address [facility]/ZIP Co de Phone Number [facility] [place] [address] * Miscellaneous Lab request (03/12/2023 10:58 AM EST) Label Request received in lab. [facility] Blood 03/12/2023 10:5 8 AM EST 03/12/2023 11:02 AM EST Narrative Resulting Agency Comment Spec In Lab Tereso Mohan MD LAB SEND OUT ORDERAB LES Performing Organization Address City/[facility] Co de Phone Number [facility] [place] [address] * (ABNORMAL) Hepatic Function Panel (03/12/2023 10:58 AM EST) Protein, Total 7.7 6.1 - 8.0 g/dL [facility] Albumin 4.6 3.2 - 5.2 g/dL [facility] Aspartate Aminotransferase 21 0 - 30 unit/L [facility] Alanine Aminotransferase 25 0 - 30 unit/L [facility] Alkaline Phosphatase 43 35 - 105 unit/L [facility] Bilirubin, Total <0.2(L) 0.2 - 1.3 mg/dL [facility] Bilirubin, Direct 0.1 0.0 - 0.3 mg/dL [facility] Blood 03/12/2023 10:5 8 AM EST 03/12/2023 11:02 AM EST Narrative Resulting Agency Comment Spec In Lab Tereso Mohan MD CHEMISTRY ORDERABLES Performing Organization Address [facility] Co de Phone Number [facility] [place] [address] * (ABNORMAL) Basic Metabolic Panel (non-fasting) (03/12/2023 10:58 AM EST) Glucose 78 65 - 199 mg/dL [facility] Comment:Diabetes: >=200 mg/d L plus symptoms Blood Urea Nitrogen 18 8 - 18 mg/dL [facility] Creatinine 0.73 0.70 - 1.20 mg/dL [facility] Sodium 136 135 - 145 mmol/L [facility] Potassium 4.3 3.5 - 5.0 mmol/L [facility] Comment: Please note: ??Patients with WBC >100,000 may have falsely elevated Potassium levels. ??For accurate Potassium quantification in these patients send serum separator tube (gold top) for subsequent determinations. ??Contact the Clinical Chemistry Laboratory if there are any questions. Chloride 102 98 - 107 mmol/L [facility] Carbon Dioxide 21(L) 22 - 31 mmol/L [facility] Anion Gap 13 5 - 15 mmol/L [facility] Calcium 9.7 8.5 - 10.5 mg/dL [facility] Est Glomerular Filtration Rate 107 >=60 mL/min/1. 73 m?? [facility] Comment: This patient's estimated GFR [...] and symptoms in addition to eGFR. Blood 03/12/2023 10:5 8 AM EST 03/12/2023 11:02 AM EST Narrative Resulting Agency Comment Spec In Lab Tereso Mohan MD CHEMISTRY ORDERABLES Performing Organization Address City/[facility]/ZIP Co de Phone Number [facility] [place] [address] * Vitamin B12 (03/12/2023 10:58 AM EST) Vitamin B12 1,059 232 - 1,245 pg/mL [facility] Blood 03/12/2023 10:5 8 AM EST 03/12/2023 11:02 AM EST Narrative Resulting Agency Comment Spec In Lab Tereso Mohan MD CHEMISTRY ORDERABLES Performing Organization Address City/[facility] Co de Phone Number [facility] [place] [address] * TSH (03/12/2023 10:58 AM EST) Thyroid Stimulating Hormone 1.85 0.27 - 4.20 mcIU/mL [facility] Comment: Reference Interval (mcIU/mL): Females: ??First Trimester: 0.23-3.88 ??Second Trimester: 0.22-3.90 ??Third Trimester: 0.44-4.66 Blood 03/12/2023 10:5 8 AM EST 03/12/2023 11:02 AM EST Narrative Resulting Agency Comment Spec In Lab Tereso Mohan MD CHEMISTRY ORDERABLES Performing Organization Address City/[facility] Co de Phone Number [facility] [place] [address] documented in this encounter Visit Diagnoses Diagnosis Cervical radiculopathy Brachial neuritis or radiculitis nos Seizures Other convulsions documented in this encounter Care Teams Pipe Line Walker Relationship Specialty Start Date End Date Lilian Julien, [place] [address] PCP - General Family Medicine 03/12/23 documented as of this encounter
--- OUTSIDE RECORDS SUMMARY | 2023-11-16 14:11 | XMS_ITS | Encounter Summary ---
Author Organization [facility] [place] [address] Care Team Providers Care It Director Name Role Phone Comfort Urban APRN Primary Care Provider [phone] Encounter Details Date Type Department Care Team (Late st Contact Info) Description 10/11/2022 [place] [phone] Tereso Mohan MD [facility] [place] [address] Social History Tobacco Use Types Packs/Day Years [...] place to sleep or slept in a fpc (including now)? No 03/13/2022 Sex and Gender Information Value Date Recorded Sex Assigned at Not on file Gender Identity Not on file Sexual Orientation Not on file documented as of this encounter Miscellaneous Notes * Telephone Encounter - Renita Salmeron RN - 10/11/2022 5:25 PM EDT Responded to via [employer] * Telephone Encounter - Renita Salmeron RN - 10/11/2022 10:27 AM EDT Copied from [facility] #[id number]. Topic: Specialty Dept CRMs - Triage >> Oct 11, 2022 9:59 AM Aundrea Neil wrote: Triage Message Specialist: Kimberlee Rider MD Relationship (if other than patient-full name): self Bessie Levy Symptom: numbness and pain in both hands Has patient experienced symptom before yes If patient has experienced symptom before, when was the last time this occurred worsening symptom Is patient currently having symptom yes When did symptom begin roughly one week ago Additional Comments: Bessie states she has been discussing her symptoms with her PCP who advised Bessie to discuss with Dr Mohan to request an EMG be done sooner than 6 months. Patient states pain shoots up from her elbows to the middle of her hand. Please return call to patient to discuss whenable documented in this encounter Plan of Treatment Upcoming Encounters Date Type Department Care Team (Late st Contact Info) Description 12/24/2023 10:00 AM EDT Office Visit Neurology at [place] [phone] Tereso Mohan MD [facility] [place] [address] 12/24/2023 10:30 AM EDT Appointment XRay at [address] [place] [phone] Shelby Aaron [facility] [place] [address] 12/24/2023 11:30 AM EDT Office Visit [facility] [place] [phone] Shelby Aaron [facility] [place] [address] documented as of this encounter Visit Diagnoses Not on filedocumented in this encounter Care Teams It Director Relationship Specialty Start Date End Date Comfort Urban APRN [address] [place] [address] PCP - General Family Medicine 07/19/17 03/11/23 documented as of this encounter
--- OUTSIDE RECORDS SUMMARY | 2023-11-16 14:11 | XMS_ITS | Encounter Summary ---
Author Organization [facility] Address [facility] [place] [address] Care Team Providers Care Senior C Software Developer Name Role Phone Comfort Urban APRN Primary Care Provider [phone] Encounter Details Date Type Department Care Team (Latest Contact Info) Description 11/20/2022 10:13 AM EDT - 11/20/2022 11:59 PM EDT Hospital Encounter XRay at [facility] [place] [address] Charly Wilkins MD [facility] [place] [address] Spondylolisthesis at L4-L5 level; H/O lumbosacral spine surgery Discharge Disposition: Home Social History Tobacco Use [...] place to sleep or slept in a chcf (including now)? No 03/13/2022 Sex and Gender Information Value Date Recorded Sex Assigned at Not on file Gender Identity Not on file Sexual Orientation Not on file documented as of this encounter Medications at Time of Discharge Medication Sig Dispensed Refills Start Date End Date lisinopriL (Zestril) 10 mg tablet Take 10 [...] times daily. 60 capsule 5 07/25/2022 05/06/2023 citalopram (CELEXA) 20 mg Tablet Take 40 mg by mouth daily. 0 02/03/2018 03/12/2023 documented as of this encounter Plan of Treatment Upcoming Encounters Date Type Department Care Team (Late st Contact Info) Description 12/24/2023 10:00 AM EDT [place] [address] Tereso Mohan MD [facility] [place] [address] 12/24/2023 10:30 AM EDT Appointment XRay at [address] [place] [address] Shelby Aaron APRN [facility] [place] [address] 12/24/2023 11:30 AM EDT Office Visit [facility] [place] [phone] Shelby Aaron APRN [facility] [place] [address] documented as of this encounter Procedures Procedure Name Priority Date/Time Associated Diagnosis Comments XR LUMBAR SPINE 2 OR 3 VIEWS Routine 11/20/2022 10:30 AM EDT Spondylolisthesis at L4-L5 level H/O lumbosacral spine surgery documented in this encounter Results * XR Lumbar Spine 2 Or 3 Views (Generic) (11/20/2022 10:30 AM EDT) Anatomical Region Laterality Modality L-spine N/A Digital Radiogra phy Impressions 11/20/2022 1:38 PM EDT 1. ??Status post L4-5 posterior spinal fusion with intact fixation. No interval hardware complication. Unchanged minimal nonspecific lucency about the L5 pedicle screws. Thank you for letting us participate in the care of this patient. ??If you are a health care provider and have any questions regarding this report, please contact the number below. ??For patients who have questions please contact the health school child care attendant that requested your imaging first. ? Narrative 11/20/2022 1:38 PM EDT EXAMINATION: XR LUMBAR SPINE 2 OR 3 VIEWS (GENERIC) CLINICAL HISTORY: lumbar fusion check hardware TECHNIQUE: 2 views of the lumbar spine COMPARISON: MR spine radiographs 06/19/2022 FINDINGS: Status post L4-5 posterior interbody fusion with intact leanne and pedicle screws. No significant change in fine lucency about the L5 pedicle screws. Unchanged alignment with mild grade 1 anterolisthesis at L4-5. No additional subluxation. Vertebral body heights are maintained. No acute fracture. Mild disc height loss at L4-5, unchanged. Intervertebral disc heights otherwise maintained. Procedure Note Pedro Tamez MD - 11/20/2022 EXAMINATION: XR LUMBAR SPINE 2 OR 3 VIEWS (GENERIC) CLINICAL HISTORY: lumbar fusion check hardware TECHNIQUE: 2 views of the lumbar spine COMPARISON: MR spine radiographs 06/19/2022 FINDINGS: Status post L4-5 posterior interbody fusion with intact leanne and pediclescrews. No significant change in fine lucency about the L5 pedicle screws.Unchanged alignment with mild grade 1 anterolisthesis at L4-5. No additionalsubluxation. Vertebral body heights are maintained. No acute fracture. Mild disc heightloss at L4-5, unchanged. Intervertebral disc heights otherwise maintained. IMPRESSION 1. Status post L4-5 posterior spinal fusion with intact fixation. Nointerval hardware complication. Unchanged minimal nonspecific lucency about theL5 pedicle screws. Thank you for letting us participate in the care of this patient. If youare a health care provider and have any questions regarding this report,please contact the number below. For patients who have questions please contactthe health school child care attendant that requested your imaging first. Charly Wilkins MD IMG DX ORDERABLES documented in this encounter Visit Diagnoses Diagnosis Spondylolisthesis at L4-L5 level H/O lumbosacral spine surgery Personal history of surgery to other organs documented in this encounter Care Teams Senior C Software Developer Relationship Specialty Start Date End Date Comfort Urban APRN [address] [place] [address] PCP - General Family Medicine 07/19/17 03/11/23 documented as of this encounter
--- OUTSIDE RECORDS SUMMARY | 2023-11-16 14:11 | XMS_ITS | Encounter Summary ---
Author Organization [facility] Address [facility] [place] [address] Care Team Providers Care Cook Taco Name Role Phone Comfort Urban APRN Primary Care Provider [phone] Encounter Details Date Type Department Care Team (Latest Contact Info) Description 11/20/2022 Travel Social History Tobacco Use Types Packs/Day [...] 10:00 AM EDT Office [place] [address] Tereso Mohan MD [facility] [place] [address] 12/24/2023 10:30 AM EDT Appointment XRay at [address] [place] [phone] Shelby Aaron SUPERINTENDENT [employer] [facility] [place] [address] 12/24/2023 11:30 AM EDT Office Visit [facility] at [place] [phone] Shelby Aaron SUPERINTENDENT [employer] [facility] [place] [address] documented as of this encounter Visit Diagnoses Not on filedocumented in this encounter Care Teams Cook Taco Relationship Specialty Start Date End Date Comfort Urban APRN [address] [place] [address] PCP - General Family Medicine 07/19/17 03/11/23 documented as of this encounter
--- OUTSIDE RECORDS SUMMARY | 2023-11-16 14:11 | XMS_ITS | Encounter Summary ---
[place] [address] Care Team Providers Care Lithographic Press Feeder Name Role Phone Comfort Urban APRN Primary Care Provider [phone] Reason for Visit * Reason Onset Date Comments Other 01/21/2023 Right arm numbne ss Encounter Details Date Type Department Care Team (Late st Contact Info) Description 01/21/2023 [place] [phone] Tereso Mohan MD Other (Right arm numbness) Social History Tobacco Use Types Packs/Day Years [...] encounter Miscellaneous Notes * Telephone Encounter - Terseo Mohan MD - 01/21/2023 10:00 PM EST Neurology attending Patient complaining of great numbness in the right arm. Previously she had clinical evidence of carpal tunnel syndrome with unremarkable electrical studies. In view of worsening symptoms, it is reasonable to repeat her EMG nerve conduction study. We will order this. Tereso Mohan MD Professor of neurology, [facility] at [facility] Department of Neurology, [address] Pager: [phone], #[phone] Email: [email or web address] * Telephone Encounter - Lynne Moffett RN - 01/21/2023 11:44 AM EST Pt would like testing to be done at [facility] if possible * Telephone Encounter - Lynne Moffett RN - 01/21/2023 11:41 AM EST Copied from CRM #[id number]. Topic: Specialty Dept CRMs - Triage >> Jan 21, 2023 9:04 AM Cindy Audrey wrote: Triage Message Specialist: Kimberlee Relationship (if other than patient-full name): Bessie Levy Symptom: Right arm numbness Has patient experienced symptom before yes If patient has experienced symptom before, when was the last time this occurred ongoing Is patient currently having symptom yes When did symptom begin ongoing Additional Comments: Patient called and stated they have experiencing an increase in numbness to their right arm. Patient stated it has been getting progressively getting more numb over the last few weeks. Patient stated they are looking to see if Dr. Mohan will order an EMG before their appointment in March. Please call to assist. documented in this encounter Plan of Treatment Upcoming Encounters Date Type Department Care Team (Late st Contact Info) Description 12/24/2023 10:00 AM EDT Office Visit Neurology at [address] Tereso Mohan MD [facility] [place] [address] 12/24/2023 10:30 AM EDT Appointment XRay at [address] [place] [phone] Shelby Aaron APRN [facility] [place] [address] 12/24/2023 11:30 AM EDT Office Visit [facility] at [place] [phone] Shelby Aaron APRN [facility] [place] [address] documented as of this encounter Visit Diagnoses Diagnosis Paresthesias Disturbance of skin sensation documented in this encounter Care Teams Lithographic Press Feeder Relationship Specialty Start Date End Date Comfort Urban, SELVIN [address] [place] [address] PCP - General Family Medicine 07/19/17 03/11/23 documented as of this encounter
--- OUTSIDE RECORDS SUMMARY | 2023-11-16 14:11 | XMS_ITS | Encounter Summary ---
Author Organization [facility] [place] [address] Care Team Providers Care Optical Instruments Supervisor Name Role Phone Wily Lilian Hicks APRN Primary Care Provider [phone] Encounter Details Date Type Department Care Team (Late st Contact Info) Description 05/15/2023 Orders Only [facility] [place] [phone] Charly Wilkins MD [facility] [place] [address] Social History Tobacco Use Types Packs/Day Years [...] as of this encounter Progress Notes * Anjelica Crisostomo RN - 05/15/2023 9:36 AM EDT Entered in error documented in this encounter Plan of Treatment Upcoming Encounters Date Type Department Care Team (Late st Contact Info) Description 12/24/2023 10:00 AM EDT [place] [address] Tereso Mohan MD [facility] [place] [address] 12/24/2023 10:30 AM EDT Appointment XRay at [address] [place] [phone] Shelby Aaron APRN [facility] [place] [address] 12/24/2023 11:30 AM EDT Office Visit [facility] [place] [address] Shelby Aaron APRN [facility] [place] [address] documented as of this encounter Visit Diagnoses Not on filedocumented in this encounter Care Teams Optical Instruments Supervisor Relationship Specialty Start Date End Date Lilian Julien, SELVIN Nid[place] [address] PCP - General Family Medicine 03/12/23 documented as of this encounter
--- OUTSIDE RECORDS SUMMARY | 2023-11-16 14:11 | XMS_ITS | Encounter Summary ---
Author Organization [place] [address] Care Team Providers Care Vp Product Marketing Name Role Phone Comfort Urban APRN Primary Care Provider [phone] Encounter Details Date Type Department Care Team (Late st Contact Info) Description 03/05/2023 1:30 PM EST Procedure [place] [address] Raul Thomas MD [facility] [place] [address] Cervical radiculopathy Social History Tobacco Use Types Packs/Day Years [...] as of this encounter Progress Notes * Raul Thomas MD - 03/05/2023 1:30 PM EST [facility] NEUROPHYSIOLOGY LABORATORY NERVE CONDUCTION STUDIES AND ELECTROMYOGRAPHY EVALUATION (EDX) 03/05/23 CLINICAL HISTORY: Bessie Levy is a 37 y.o. female, right hand dominant, referred for electrodiagnostic evaluation of bilateral upper extremity paresthesias and chronic neck pain by: Comfort Urban APRN [address] [place] [address]: The history: Paresthesias affecting the UEs, right more so than left, with chronic, stable neck pain. Duration: Two years EXAMINATION: Motor: Strength: normal and symmetric in the hands. Bulk:normal and symmetric Reflexes: Symmetric, 3/4 at BB, 2/4 at TC. Bilateral Delgado signs. Sensation: not tested. TEST PARAMETERS: All limbs are warmed prior to performing NCS. Numeric data are detailed in EDH. (Filters and sensitivity: high/low filters & sensitivity: MNCS - 3 Hz/10 kHz & 1 mV; SNAPs - 20 Hz/2 kHz & 10 ??V. EMG: high/low filter: 10 Hz/10 kHz, sensitivity 50 ??V (insertional activity) and 200 ??V (MUP activity)). All SNAPs are averaged over 7-10 responses. F waves averaged over 10 responses. Reference values: Upper and Lower Limb Nerve Conduction Studies in Adult Populations Muscle & Nerve 54:371-377, 2016. Cervical paraspinal muscles are not investigated due to body habitus preventing adequate localization. 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 Such findings can be seen in a chronic [id number] cervical radiculopathyof moderate severity, cervical stenosis or, less likely, a focal motor neuronopathy. Clinical correlation is needed to differentiate between these entities. Otherwise, there is no evidence for an axonal, large-fiber, sensorimotor polyneuropathy or focal mono-neuropathy (median or ulnar neuropathies). Heri Thomas MD documented in this encounter Plan of Treatment Upcoming Encounters Date Type Department Care Team (Late st Contact Info) Description 12/24/2023 10:00 AM EDT Office Visit Neurology at [place] [phone] Tereso Mohan MD [facility] [place] [address] 12/24/2023 10:30 AM EDT Appointment XRay at [address] [place] [phone] Shelby Aaron CHURCH SUPERVISOR [facility] [place] [address] 12/24/2023 11:30 AM EDT Office Visit [place] [phone] Shelby Aaron APRN [facility] [place] [address] documented as of this encounter Visit Diagnoses Diagnosis Cervical radiculopathy Brachial neuritis or radiculitis nos documented in this encounter Care Teams Vp Product Marketing Relationship Specialty Start Date End Date Comfort Urban, CHURCH SUPERVISOR [address] [facility] [place] [address] PCP - General Family Medicine 07/19/17 03/11/23 documented as of this encounter
--- OUTSIDE RECORDS SUMMARY | 2023-11-16 14:11 | XMS_ITS | Encounter Summary ---
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 Role Phone Wily Lilian Hicks APRN Primary Care Provider [phone] Reason for Referral * Diagnostic Test (Routine) - Closed Specialty Diagnoses / Procedures Referred By Contac t Referred To Contact Radiology Diagnoses Cervical radiculopathy Procedures MRI Cervical Spine wo Contrast (Generic) Tereso Mohan MD [facility] [place] [address] [place] [address] Referral ID Status Reason Start Date Expiration Date V isits Requested Visits Authorized [id number] Closed Specialty Service Requested 03/12/2023 09/09/2024 1 1 Encounter Details Date Type Department Care Team (Late st Contact Info) Description 03/12/2023 9:30 AM EST [place] [address] Tereso Mohan MD [facility] [place] [address] Cervical radiculopathy; Seizures Social History Tobacco Use [...] Sign Reading Time Taken Comments Blood Pressure 132/80 03/12/2023 9:22 AM EST Pulse 71 03/12/2023 9:22 AM EST Temperature - - Respiratory Rate - - Oxygen Saturation 98% 03/12/2023 9:22 AM EST Inhaled Oxygen Concentration - - Weight 88.5 kg (195 lb) 03/12/2023 9:22 AM EST p t reported Height 154.9 cm (5' 1) 03/12/2023 9:22 AM EST Body Mass Index 36.84 03/12/2023 9:22 AM EST documented in this encounter Patient Instructions * Patient Instructions* Tereso Mohan MD - 03/12/2023 9:30 AM EST I think you are doing about the same Seizures appear to be controlled, you should stay on the clobazam. Headaches seem aimee. For prevention please continue a combination of aspirin 81 mg daily, magnesium 250 mg twice a day, and riboflavin 200 mg twice a day. For acute treatment of headaches you can continue Naprosyn 500 mg twice a day as needed. This can be used for other aches and pains as well. Please let me know if this is not working for you. Your testing suggests that you have pinched nerves in your neck, like you had in your back. We should get an MRI scan of your neck. There is also some concern that you may have nerve damage from other causes. Please get blood test done here today. Please call after your MRI scan and we can review the results and decide what to do next I would in any case like to see you back in 3 months. Tereso Mohan MD Professor of neurology, [facility]ly [facility] at [facility] Department of Neurology, [address] Pager: [phone], #[phone] Email: [email or web address] documented in this encounter Progress Notes * Tereso Mohan MD - 03/12/2023 9:30 AM EST Neurology clinic note Chief complaint: [...] None 2. EEG: - Routine EEG:Done at [facility] 05/05/18: Normal study. In 2019 when we saw the patient [...] that led to her being taken to [facility] emergency room. She had bitten the [...] able to continue working full-time at the [employer]. As of 2020 she is doing quite well. She had one breakthrough convulsive seizure associated with missed doses of medication. She has had no other major medical problems. 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 She is having some mid back [...] twice daily to 250, 500 mg at [facility]. There have been no additional events [...] and doing a good deal of lifting. Later in 2022 the patient is doing reasonably well. She is having occasional migrainous headaches. They are somewhat worse since she stopped Depakote, but Depakote was otherwise very bad medication for her. She has not had any of the nonepileptic seizures. She continues to have a variety of musculoskeletal symptoms particularly in the arms. 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 She remains on clobazam. Symptoms of back pain and lumbar radiculopathy are under control following her surgery with fusion Migrainous headaches are under reasonable control. She is on prophylaxis with aspirin magnesium andriboflavin, and is needing to use Naprosyn once every 2-4 weeks for severe symptomatic headaches. She continues to have neck and arm pain and paresthesias that is worse on the right. 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 Past Medical History: Patient Active Problem List [...] Current Outpatient Medications Medication Sig Dispense Refill sertraline (Zoloft) 100 mg tablet Take 1 tablet by mouth Daily at Noon. lisinopriL (Zestril) 10 mg tablet Take 10 [...] Take 2 mg by mouth daily. 0 UNABLE TO FIND Take by mouth as needed. Med Name: CBD oil No current facility-administered medications for this visit. Physical Examination: BP 146/89 Mental status: Mentally clear, speech normal. Cranial nerve II XII: All normal. Motor: Strength was substantially normal with normal motor tone. Muscle bulk was normal throughout.Has no resting tremor, mild postural tremor bilaterally. Sensory: Bilateral decreased sensation in the hands up to the wrists. Tinel sign--> middle two fingers b/l, thoracic outlet sign bilaterally. Phalen's sign in the thumb b/l. Ulnar grooves not tender. Vibration sense intact. Some suggestion of altered sensation in C6 territory on the right Reflexes: brisk throughout, slightly more brisk in the left UE compared to right. Positive Hoffmansbilaterally. Equivocal plantar reflex bilaterally. Cerebellar: Normal kjjksj-ab-awnd with mild action tremor, normal nebh-uu-xnsa, no dysdiadochokinesia. Gait: gait was wide-based, good heel and toe walking. Laboratory studies: Imaging: MRI brain was done in 2015 was unremarkable per patient MRI brain: 05/10/2018- No acute intracranial abnormality CT scan head- None MRI lumbar spine 2019 degenerative changes most prominent at L4-5 with foraminal stenosis bilaterally worse on the right MRI cervical spine requested EEG: Routine EEG:Done at [facility] 05/05/18: Normal study. EMG: Previously suggestive of carpal tunnel syndrome, then normal, and most recently in 2022 suggestive of C6 radiculopathy. Blood Tests: Blood tests all unremarkable in [...] Time APTT Thrombin time Fibrinogen D-Dimer, Quantitative Orders Placed This Encounter Procedures MRI Cervical Spine wo Contrast (Generic) TSH Vitamin B12 Basic Metabolic Panel (non-fasting) Hepatic Function Panel CBC (with Diff) Miscellaneous Lab request Sedimentation rate Lyme IgG & IgM Antibody SAVANNAH Antibody Screen Protein Electrophoresis, serum Rheumatoid factor, quant T4 Total Angiotensin Converting Enzyme Gabapentin level Ganglioside Antibodies Impression and plan: Patient is doing better although there are several ongoing neurological issues. 1. 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 She is currently maintained on clobazam for mood stabilization and also to cover the possibility of epilepsy. She has had no seizures for some time on this current regimen, so we will continue it. 2. The patient continues to note migraines 1-2 per month in the mornings, described photo/phonophobia. She is better on prophylaxis with aspirin magnesium and riboflavin, with Naprosyn for symptomatic relief. We can continue this for now. 3. The numbness in her hands appeared to be relatively mild carpal tunnel syndrome with normal electrical studies. However, recently symptoms are worse in the right arm, and electrical studies are suggestive of cervical radiculopathy or mononeuropathies multiplex. I am requesting additional blood tests, and MRI scan of the cervical spine. 4. Her depression is well controlled at present on Abilify and Zoloft. We will make no modifications. Thank you for this consultation. I have asked her to call me after the cervical MRI scan, and will see her back in any case in 3 months, or sooner if necessary Tereso Mohan MD Department [place] [address] Pager #[phone] Email: [email or web address] CC: Comfort Urban APRN documented in this encounter Plan of Treatment Upcoming Encounters Date Type Department Care Team (Late st Contact Info) Description 12/24/2023 10:00 AM EDT Office [place] [address] Tereso Mohan MD [facility] [place] [address] 12/24/2023 10:30 AM EDT Appointment XRay at [address] [place] [address] Shelby Aaron, [facility] [place] [address] 12/24/2023 11:30 AM EDT Office Visit [facility] at [facility] [place] [phone] Shelby Aaron, [employer] [facility] [place] [address] documented as of this encounter Results * MRI Cervical Spine [...] who have questions please contact the health lead care manager that requested your imaging first. ? Narrative 03/22/2023 7:46 PM EST EXAMINATION: MRI [...] patients who have questions please contactthe health lead care manager that requested your imaging first. Tereso Mohan MD IM MRI ORDERABLES * Ganglioside Antibodies (03/12/2023 10:58 AM EST) Asialo-GM1 Antibodies, IgG/IgM 37 0 - 50 Index Value [facility] GM1 Antibodies, IgG/IgM 9 0 - 50 Index Value [facility] GM2 Antibodies, IgG/IgM 6 0 - 50 Index Value [facility] GD1a Antibodies, IgG/IgM 7 0 - 50 Index Value [facility] GD1b Antibodies, IgG/IgM 17 0 - 50 Index Value [facility] GQ1b Antibodies, IgG/IgM 24 0 - 50 Index Value [facility] Comment: INTERPRETIVE INFORMATION: Ganglioside (Asialo-GM1, GM1, [...] antibodies are associated with different variants of Guillain-[place] syndrome (GBS) particularly acute motor axonal neuropathy [...] developed and its performance characteristics determined by [facility] [facility]. It has not been cleared or approved by the US Food and Drug Administration. This test was performed in a CLIA certified laboratory and is intended for clinical purposes. Performed By: [facility] [address] [place] [id number] [employer] Professor: Wayne Womack MD, PhD CLIA Number: [id number] Blood 03/12/2023 10:5 8 AM EST 03/12/2023 3:11 PM EST Narrative Resulting Agency Comment Spec In Lab Tereso Mohan MD LAB SEND OUT ORDERAB LES [facility] [place] [address] * (ABNORMAL) Gabapentin level (03/12/2023 10:58 AM EST) Gabapentin Lvl (JULY) 0.7(L) 2.0 - 20.0 mcg/mL [facility] Comment: ADDITIONAL INFORMATION This test was developed and its performance characteristics determined by [facility] in a manner consistent with CLIA requirements. This test has not been cleared or approved by the U.S. Food and Drug Administration. Test Performed by: [address] [address] Song Lyricist: Tito King M.D. Ph.D.; CLIA# [id number] Blood 03/12/2023 10:5 8 AM EST 03/12/2023 1:41 PM EST Narrative Resulting Agency Comment Spec In Lab Authorizing Provider Result Kar Mohan MD LAB SEND OUT ORDERAB LES Performing Organization Address City/[facility]/ZIP Co de Phone Number [facility] [place] [address] * (ABNORMAL) Angiotensin Converting Enzyme (03/12/2023 10:58 AM EST) Gokul (JULY) <5(L) 16 - 85 unit/L [facility] Comment: Test Performed by: [address] [address] Song Lyricist: Tito King M.D. Ph.D.; CLIA# [id number] Blood 03/12/2023 10:5 8 AM EST 03/12/2023 1:41 PM EST Narrative Resulting Agency Comment Spec In Lab Tereso Mohan MD LAB SEND OUT ORDERAB LES Performing Organization Address [facility] Co de Phone Number [facility] [place] [address] * T4 Total (03/12/2023 10:58 AM EST) Pathologist [facility] T4 Total 6.3 5.3 - 11.6 mcg/dL [facility] Comment: Reference Interval (mcg/dL): Females: ??First Trimester: 6.3-13.5 ??Second Trimester: 7.1-14.3 ??Third Trimester: 6.9-14.1 Blood 03/12/2023 10:5 8 AM EST 03/12/2023 11:02 AM EST Narrative Resulting Agency Comment Spec In Lab Authorizing Provider Result Kar Mohan MD CHEMISTRY ORDERABLES Performing Organization Address City/[facility] Co de Phone Number [facility] [place] [address] * Rheumatoid factor, quant (03/12/2023 10:58 AM EST) Rheumatoid Factor <10 <=14 IU/mL [facility] Blood 03/12/2023 10:5 8 AM EST 03/12/2023 11:02 AM EST Narrative Resulting Agency Comment Spec In Lab Tereso Mohan MD CHEMISTRY ORDERABLES Performing Organization Address [facility] de Phone Number [facility] [place] [address] * (ABNORMAL) Protein Electrophoresis, serum (03/12/2023 10:58 AM EST) Pathologist [facility] Total Prot Electrophoresis 7.5 6.1 - 8.0 g/dL [facility] Albumin Electrophoresis 4.70 3.20 - 5.20 g/dL [facility] Alpha 1 Globulin 0.18 0.10 - 0.30 g/dL [facility] Alpha 2 Globulin 0.93(H) 0.40 - 0.90 g/dL [facility] Beta Globulin 0.89 0.50 - 1.00 g/dL [facility] Gamma Globulin 0.80 0.50 - 1.30 g/dL [facility] M1 Band None Detected None Detected [facility] Blood 03/12/2023 10:5 8 AM EST 03/12/2023 11:02 AM EST Narrative Resulting Agency Comment Spec In Lab Tereso Mohan MD CHEMISTRY ORDERABLES Performing Organization Address [facility] Co de Phone Number [facility] [place] [address] * SAVANNAH Antibody Screen (03/12/2023 10:58 AM EST) SAVANNAH Ab Screen Negative Negative [facility] Comment: This antinuclear antibody (SAVANNAH) screen is a qualitative test performed using a fluoroenzyme immunoassay on the GrupHediye 250 analyzer. This screen is designed to [...] performed by the Special Chemistry Laboratory at [facility]. This change in testing location is associated with a change is testing method and reference intervals. Please review the results of this test in association with the posted reference intervals. dsDNA Ab 0.9 <=15.0 IU/mL [facility] Comment: <10 negative 10-15 equivocal >15 positive This dsDNA antibody result was generated using a fluoroenzyme immunoassay on the GrupHediye 250 analyzer. This quantitative test is designed to detect IgG antibodies directed against double stranded DNA in human serum. The presence of antibodies that recognize dsDNA is a highly specific marker for systemic lupus erythematosus. Please note that as of 12/26/2021 that this testing is performed by the Special Chemistry Laboratory at [facility]. This change in testing location is associated with a change is testing method and reference intervals. Please review the results of this test in association with the posted reference intervals. Blood 03/12/2023 10:5 8 AM EST 03/13/2023 7:32 AM EST Narrative Resulting Agency Comment Spec In Lab Tereso Mohan MD LAB SEND OUT ORDERAB LES Performing Organization Address [facility] [place] [address] * Lyme IgG & IgM Antibody (03/12/2023 10:58 AM EST) Lyme Antibody Negative Negative [facility] Lyme Ab Comment Negative result does not exclude possibility of infection. [facility] Comment: Please note that as of 07/10/2022 that this testing is performed by the Special Chemistry Laboratory at [facility]. This change in testing location is associated with a change in testing methodology. Blood 03/12/2023 10:5 8 AM EST 03/13/2023 7:32 AM EST Narrative Resulting Agency Comment Spec In Lab Tereso Mohan MD IMMUNOLOGY ORDERABLE S Performing Organization Address City/[facility]/ZIP Co de Phone Number [facility] [place] [address] * Sedimentation rate (03/12/2023 10:58 AM EST) Sedimentation Rate Automated 27 2 - 37 mm/hr [facility] Comment: Effective February 11, 2019 new capillary photometric technology has resulted in a change in reference ranges. It is recommended that each ESR result be reviewed with its own age appropriate reference range. Blood 03/12/2023 10:5 8 AM EST 03/12/2023 11:02 AM EST Narrative Resulting Agency Comment Spec In Lab Tereso Mohan MD HEMATOLOGY ORDERABLE S Performing Organization Address [facility] Co de Phone Number [facility] [place] [address] * Miscellaneous Lab request (03/12/2023 10:58 AM EST) Label Request received in lab. [facility] Blood 03/12/2023 10:5 8 AM EST 03/12/2023 11:02 AM EST Narrative Resulting Agency Comment Spec In Lab Tereso Mohan MD LAB SEND OUT ORDERAB LES Performing Organization Address [facility] Co de Phone Number [facility] [place] [address] * (ABNORMAL) Hepatic Function Panel (03/12/2023 10:58 AM EST) Protein, Total 7.7 6.1 - 8.0 g/dL [facility] Albumin 4.6 3.2 - 5.2 g/dL [facility] Aspartate Aminotransferase 21 0 - 30 unit/L [facility] Alanine Aminotransferase 25 0 - 30 unit/L [facility] Alkaline Phosphatase 43 35 - 105 unit/L [facility] Bilirubin, Total <0.2(L) 0.2 - 1.3 mg/dL [facility] Bilirubin, Direct 0.1 0.0 - 0.3 mg/dL [facility] Blood 03/12/2023 10:5 8 AM EST 03/12/2023 11:02 AM EST Narrative Resulting Agency Comment Spec In Lab Tereso Mohan MD CHEMISTRY ORDERABLES [facility] [place] [address] * (ABNORMAL) Basic Metabolic Panel (non-fasting) (03/12/2023 10:58 AM EST) Glucose 78 65 - 199 mg/dL [facility] Comment:Diabetes: >=200 mg/d L plus symptoms Blood Urea Nitrogen 18 8 - 18 mg/dL [facility] Creatinine 0.73 0.70 - 1.20 mg/dL [facility] Sodium 136 135 - 145 mmol/L [facility] Potassium 4.3 3.5 - 5.0 mmol/L [facility] Comment: Please note: ??Patients with WBC >100,000 may have falsely elevated Potassium levels. ??For accurate Potassium quantification in these patients send serum separator tube (gold top) for subsequent determinations. ??Contact the Clinical Chemistry Laboratory if there are any questions. Chloride 102 98 - 107 mmol/L [facility] Carbon Dioxide 21(L) 22 - 31 mmol/L [facility] Anion Gap 13 5 - 15 mmol/L [facility] Calcium 9.7 8.5 - 10.5 mg/dL [facility] Est Glomerular Filtration Rate 107 >=60 mL/min/1. 73 m?? [facility] [...] In Lab Tereso Mohan MD CHEMISTRY ORDERABLES [facility] [place] [address] * Vitamin B12 (03/12/2023 10:58 AM EST) Vitamin B12 1,059 232 - 1,245 pg/mL [facility] Blood 03/12/2023 10:5 8 AM EST 03/12/2023 11:02 AM EST Narrative Resulting Agency Comment Spec In Lab Tereso Mohan MD CHEMISTRY ORDERABLES Performing Organization Address City/[facility] Co de Phone Number [facility] [place] [address] * TSH (03/12/2023 10:58 AM EST) Thyroid Stimulating Hormone 1.85 0.27 - 4.20 mcIU/mL [facility] Comment: Reference Interval (mcIU/mL): Females: ??First Trimester: 0.23-3.88 ??Second Trimester: 0.22-3.90 ??Third Trimester: 0.44-4.66 Blood 03/12/2023 10:5 8 AM EST 03/12/2023 11:02 AM EST Narrative Resulting Agency Comment Spec In Lab Authorizing Provider Result Kar Mohan MD CHEMISTRY ORDERABLES Performing Organization Address City/[facility] Co de Phone Number [facility] [place] [address] documented in this encounter Visit Diagnoses Diagnosis Cervical radiculopathy Brachial neuritis or radiculitis nos Seizures Other convulsions Cervical radiculopathy Brachial neuritis or radiculitis nos documented in this encounter 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
--- OUTSIDE RECORDS SUMMARY | 2023-11-16 14:11 | XMS_ITS | Encounter Summary ---
Author Organization [facility] [place] [address] Care Team Providers Care Dairy Husbandry Worker Name Role Phone Wily Lilian Hicks APRN Primary Care Provider [phone] Reason for Visit * Reason Comments Follow-up F/U to CT Encounter Details Date Type Department Care Team (Late st Contact Info) Description 05/21/2023 12:00 PM EDT Office Visit [place] [address] Charly Wilkins MD [facility] [place] [address] Cervical spondylosis with myelopathy Social History Tobacco [...] a skilled nursing (including now)? No 03/13/2022 DH IPV Inpatient [...] - - Weight 88.9 kg (196 lb) 05/21/2023 12:04 PM EDT Height 154.9 cm (5' 1) 05/21/2023 12:04 PM EDT Body Mass Index 37.03 05/21/2023 12:04 PM EDT documented in this encounter Progress Notes * Veronica Agustin MD - 05/21/2023 12:00 PM EDT Images from the original note were not included. [facility] Veronica Agustin MD 05/21/2023 Lilian Julien, SELVIN [address] [facility] [place] [address] Lilian Julien APRN [address] / [facility] [address] Dear Colleagues, I had the pleasure of seeing this patient at the [facility] for surgical evaluation. Bessie Levy is 37 y.o. female with [...] well. Surgery performed by Charly Wilkins MD Plan: Proceed with surgery in form of Posterior decompression instrumented fusion from C5-C7 possible extension to T1. Sincerely, Veronica Agustin MD [facility] Orthopedic Surgery 05/21/2023 Spine Center Response Trends Patient-reported scores: 10/10/2021 11:24 AM 10/10/2021 11:27 AM [facility]- Spine Questionnaire responses Oswestry Disability Index (Range: 0-100) 52 (Severe disability) PROMIS-10 Physical Health Score 29.6 PROMIS-10 Mental Health Score 43.5 * Charly Wilkins MD - 05/21/2023 12:00 PM EDT Images from the original note were not included. [facility] Veronica Agustin MD 05/22/2023 Lilian Julien APRN [address] [place] [address] Lilian Julien APRN [address] / [facility] [address] Dear Colleagues, I had the pleasure of seeing this patient at the [facility] for surgical evaluation. Bessie Levy is 37 y.o. female with [...] were signed and reviewed with me personally. Plan: Proceed with surgery in form of Posterior decompression instrumented fusion from C5-C7 possible extension to T1. Autograft allograft ([place]) Sincerely, Charly Wilkins MD [facility] Spine Surgery - Department of Orthopaedic Surgery Legal Nurse Consultant - Department of Orthopedic Surgery / Academics and Research Physical Damage Appraiser Professor - [facility] of Medicine 05/22/2023 Veronica Agustin MD [facility] Orthopedic Surgery 05/22/2023 Spine Center Response Trends Patient-reported scores: 10/10/2021 11:24 AM 10/10/2021 11:27 AM [facility] Spine Questionnaire responses Oswestry Disability Index (Range: 0-100) 52 (Severe disability) PROMIS-10 Physical Health Score 29.6 PROMIS-10 Mental Health Score 43.5 Prior note [facility] Charly Wilkins MD MS Charly Wilkins MD [facility] [place] [address] Lilian Julien, ENVIRONMENTAL DIRECTOR [address] [place] [address] Dear Colleagues, I had the pleasure of seeing this patient at the [facility] for surgical evaluation. Patient Derived Goal / Shared Decision Making I have come to [facility] because my Neck balance hands is keeping [...] [address] Mohan Neurology [facility] 03/22/[address] Mohan noted MRI [...] defect as child that was fixed in [place]. No other issues with cardiology. Hx of [...] triceps, but 4/5 wrist flexors, extensors, and interosseous/health claims examiner. Fine hand motor function intact with good [...] MD [facility] Head Track Coach - Orthopedic Spine Surgery Legal Nurse Consultant - Department of Orthopedic Surgery / Academics and Research Director Of Orthopedics - [facility] of Medicine 04/30/2023 Spine Center Response Trends Patient-reported scores: 10/10/2021 11:24 documented in this encounter Plan of Treatment Upcoming Encounters Date Type Department Care Team (Late st Contact Info) Description 12/24/2023 10:00 AM EDT Office Visit Neurology at [place] [phone] Tereso Mohan MD [facility] [place] [address] 12/24/2023 10:30 AM EDT Appointment XRay at [address] [place] [phone] Shelby Aaron APRN [facility] [place] [address] 12/24/2023 11:30 AM EDT Office Visit [facility] [place] [phone] Shelby Aaron APRN [facility] [place] [address] documented as of this encounter Results * XR Cervical Spine 2 or 3 Views (07/22/2023 7:43 AM EDT) WORKSTATION ID [id number] RAD Anatomical Region Laterality Modality C-spine N/A Digital [...] who have questions please contact the health certified social workers in health care that requested your imaging first. ? Electronically signed by: Gabriella Griffith MD, [facility] ([phone]), at 07/22/2023 10:29 AM Narrative 07/22/2023 10:29 [...] patients who have questions please contactthe health certified social workers in health care that requested your imaging first. Charly Wilkins MD IMG DX ORDERABLES * (ABNORMAL) Basic Metabolic Panel (non-fasting) (05/21/2023 1:37 PM EDT) Glucose 93 65 - 199 mg/dL [facility] Comment:Diabetes: >=200 mg/d L plus symptoms Blood Urea Nitrogen 18 8 - 18 mg/dL [facility] Creatinine 0.68(L) 0.70 - 1.20 mg/dL [facility] Sodium 136 135 - 145 mmol/L [facility] Potassium 4.6 3.5 - 5.0 mmol/L [facility] Comment: Please note: ??Patients with WBC >100,000 may have falsely elevated Potassium levels. ??For accurate Potassium quantification in these patients send serum separator tube (gold top) for subsequent determinations. ??Contact the Clinical Chemistry Laboratory if there are any questions. Chloride 103 98 - 107 mmol/L [facility] Carbon Dioxide 20(L) 22 - 31 mmol/L [facility] Anion Gap 13 5 - 15 mmol/L [facility] Calcium 9.9 8.5 - 10.5 mg/dL [facility] Est Glomerular Filtration Rate 114 >=60 mL/min/1. 73 m?? [facility] Comment: This patient's estimated GFR [...] Wilkins MD CHEMISTRY ORDERABLES Performing Organization Address City/State/[facility] Co de Phone Number [facility] [place] [address] documented in this encounter Visit Diagnoses Diagnosis Cervical spondylosis with myelopathy Cervical spondylosis with myelopathy documented in this encounter Care Teams Dairy Husbandry Worker Relationship Specialty Start Date End Date Lilian Julien APRN [address] [place] [address] PCP - General Family Medicine 03/12/23 documented as of this encounter
--- OUTSIDE RECORDS SUMMARY | 2023-11-16 14:11 | XMS_ITS | Encounter Summary ---
Author Organization [facility] [place] [address] Care Team Providers Care Engineering Agent Name Role Phone Lilian Julien APRN Primary Care Provider [phone] Encounter Details Date Type Department Care Team (Late st Contact Info) Description 05/21/2023 1:30 PM EDT Clinical [place] [phone] Social History Tobacco Use Types Packs/Day Years [...] in a intermediate (including now)? No 03/13/2022 DH IPV Inpatient [...] Taken Comments Blood Pressure - - Pulse 87 05/21/2023 1:41 PM EDT Temperature - - Respiratory Rate - - Oxygen Saturation 98% 05/21/2023 1:41 PM EDT Inhaled Oxygen Concentration - - Weight - - Height - - Body Mass Index - - documented in this encounter Progress Notes * Rakel Jackson RN - 05/21/2023 1:30 PM EDT Anesthesia questionnaire reviewed with patient and boyfriend Juan while in [facility]. Pt has tolerated anesthesia in the past Pre-operative instruction booklet reviewed. Patient verbalizes a good understanding of all information reviewed. PLAN: Testing: type and screen, other labs Special medication instructions: Hold Lisinopril (Zestril) , vitamins, supplements and herbals on day of surgery. Pt reports instructions to hold aspirin and Nsaids from Dr Wilkins. Procedure date: 06-10-23 Dr Wilkins documented in this encounter Plan of Treatment Upcoming Encounters Date Type Department Care Team (Late st Contact Info) Description 12/24/2023 10:00 AM EDT Office Visit Neurology at [place] [phone] Tereso Mohan MD [facility] [place] [address] 12/24/2023 10:30 AM EDT Appointment XRay at [address] [place] [phone] Shelby Aaron FIELD REIMBURSEMENT MANAGER [facility] [place] [address] 12/24/2023 11:30 AM EDT Office Visit [facility] at [place] [phone] Shelby Aaron FIELD REIMBURSEMENT MANAGER [facility] [place] [address] documented as of this encounter Visit Diagnoses Not on filedocumented in this encounter Care Teams Engineering Agent Relationship Specialty Start Date End Date Lilian Julien APRN Nid[facility] [place] [address] PCP - General Family Medicine 03/12/23 documented as of this encounter
--- OUTSIDE RECORDS SUMMARY | 2023-11-16 14:11 | XMS_ITS | Encounter Summary ---
Author Organization [facility] Address [facility] [place] [address] Care Team Providers Care Flat Locker Name Role Phone Wily Lilian Hicks APRN Primary Care Provider [phone] Encounter Details Date Type Department Care Team (Latest Contact Info) Description 03/12/2023 Travel Social History Tobacco Use Types Packs/Day [...] 10:00 AM EDT Office Visit Neurology at [place] [phone] Tereso Mohan MD [facility] [place] [address] 12/24/2023 10:30 AM EDT Appointment XRay at [address] [place] [phone] Shelby Aaron HSE SPECIALIST [facility] [place] [address] 12/24/2023 11:30 AM EDT Office Visit [facility] at [place] [phone] Shelby Aaron HSE SPECIALIST [facility] [place] [address] documented as of this encounter Visit Diagnoses Not on filedocumented in this encounter Care Teams Flat Locker Relationship Specialty Start Date End Date Lilian Julien APRN [facility] [place] [address] PCP - General Family Medicine 03/12/23 documented as of this encounter
--- OUTSIDE RECORDS SUMMARY | 2023-11-16 14:11 | XMS_ITS | Encounter Summary ---
Author Organization [facility] [place] [address] Care Team Providers Care Investment Counselor Name Role Phone Wily Lilian Hicks APRN Primary Care Provider [phone] Encounter Details Date Type Department Care Team (Latest Contact Info) Description 05/13/2023 Travel Social History Tobacco Use Types Packs/Day [...] 10:00 AM EDT Office Visit Neurology at [place] [phone] Tereso Mohan MD [facility] [place] [address] 12/24/2023 10:30 AM EDT Appointment XRay at [address] [place] [phone] Shelby Aaron ESCALATION ENGINEER [facility] [place] [address] 12/24/2023 11:30 AM EDT Office Visit [facility] at [place] [phone] Shelby Aaron ESCALATION ENGINEER [facility] [place] [address] documented as of this encounter Visit Diagnoses Not on filedocumented in this encounter Care Teams Investment Counselor Relationship Specialty Start Date End Date Lilian Julien APRN [facility] [facility] [address] PCP - General Family Medicine 03/12/23 documented as of this encounter
--- OUTSIDE RECORDS SUMMARY | 2023-11-16 14:11 | XMS_ITS | Encounter Summary ---
Author Organization [facility] Address [facility] [place] [address] Care Team Providers Care Conservation Biology Professor Name Role Phone Wily Lilian Hicks APRN Primary Care Provider [phone] Encounter Details Date Type Department Care Team (Latest Contact Info) Description 05/21/2023 Travel Social History Tobacco Use Types Packs/Day [...] in a correction (including now)? No 03/13/2022 IPV Inpatient Questions [...] 10:00 AM EDT Office Visit Neurology at [place] [phone] Tereso Mohan MD [facility] [place] [address] 12/24/2023 10:30 AM EDT Appointment XRay at [address] [place] [phone] Shelby Aaron APRN [facility] [place] [address] 12/24/2023 11:30 AM EDT Office Visit [facility] [place] [phone] Shelby Aaron APRN [facility] [place] [address] documented as of this encounter Visit Diagnoses Not on filedocumented in this encounter Care Teams Conservation Biology Professor Relationship Specialty Start Date End Date Lilian Julien, SELVIN Nidhi SWANN [facility] [place] [address] PCP - General Family Medicine 03/12/23 documented as of this encounter
--- OUTSIDE RECORDS SUMMARY | 2023-11-16 14:12 | XMS_ITS | Encounter Summary ---
Author Organization [facility] [place] [address] Care Team Providers Care Healthcare Administrator Name Role Phone Comfort Urban SELVIN Primary Care Provider [phone] Encounter Details Date Type Department Care Team (Latest Contact Info) Description 01/23/2022 Travel Social History Tobacco Use Types Packs/Day Years Used Date Smoking Tobacco: Never Smokeless Tobacco: Never Comments:vapes but not nicot ine Alcohol Use Standard Drinks/Week Comments Never 0 (1 standard drink = 0.6 oz pur e alcohol) Sex and Gender Information Value Date Recorded Sex Assigned at Not on file Gender Identity Not on file Sexual Orientation Not on file documented as of this encounter Plan of Treatment Upcoming Encounters Date Type Department Care Team (Late st Contact Info) Description 12/24/2023 10:00 AM EDT Office Visit [place] [phone] Tereso Mohan MD [facility] [place] [address] 12/24/2023 10:30 AM EDT Appointment XRay at [address] [place] [phone] Shelby Aaron APRN [facility] [place] [address] 12/24/2023 11:30 AM EDT Office Visit [facility] [place] [address] Shelby Aaron APRN [facility] [place] [address] documented as of this encounter Visit Diagnoses Not on filedocumented in this encounter Care Teams Healthcare Administrator Relationship Specialty Start Date End Date Comfort Urban APRN [address] [place] [address] PCP - General Family Medicine 07/19/17 03/11/23 documented as of this encounter
--- OUTSIDE RECORDS SUMMARY | 2023-11-16 14:12 | XMS_ITS | Encounter Summary ---
[place] [address] Care Team Providers Care Optical Lathe Operator Name Role Phone Comfort Urban APRN Primary Care Provider [phone] Reason for Visit * Reason Onset Date Comments Medication Refill 01/29/2022 Encounter Details Date Type Department Care Team (Late st Contact Info) Description 01/29/2022 Refill [facility] [place] [phone] Susanna Jason LPN Social History Tobacco Use [...] Telephone Encounter - Susanna Jason LPN - 01/29/2022 9:39 AM EST Bessie called requesting a wean of Oxycodone 5 mg. She is s/p 01-05-22 Posterior lumbar decompression instrumented fusion with TLIF L4-5 autograft allograft She takes 1 tab in the am and 1 in the pm (HS). She also requests a referral for PT at [facility] in [facility] fax # [phone], will pend that order under orders only, Dr. Wilkins can sign if agreeable. documented in this encounter Plan of Treatment Upcoming Encounters Date Type Department Care Team (Late st Contact Info) Description 12/24/2023 10:00 AM EDT Office Visit Neurology at [place] [phone] Tereso Mohan MD [facility] [place] [address] 12/24/2023 10:30 AM EDT Appointment XRay at [address] [place] [phone] Shelby Aaron DISHWASHER [facility] [place] [address] 12/24/2023 11:30 AM EDT Office Visit [facility] at [place] [phone] Shelby Aaron DISHWASHER [facility] [place] [address] documented as of this encounter Visit Diagnoses Not on filedocumented in this encounter Care Teams Optical Lathe Operator Relationship Specialty Start Date End Date Comfort Urban APRN [address] [place] [address] PCP - General Family Medicine 07/19/17 03/11/23 documented as of this encounter
--- OUTSIDE RECORDS SUMMARY | 2023-11-16 14:12 | XMS_ITS | Encounter Summary ---
Author Organization On License Of [facility] Address [facility] [place] [address] Care Team Providers Care Discharge Door Operator Name Role Phone Comfort Urban APRN Primary Care Provider [phone] Reason for Visit * Reason Comments Establish Care Encounter Details Date Type Department Care Team (Late st Contact Info) Description 07/25/2022 1:00 PM EDT Office Visit Obstetrics [place] [address] Kate Villalta MD [facility] OBSTETRICS [place] [address] Myofascial pain (Primary Dx); Acute pelvic pain, female Social History Tobacco Use Types Packs/Day Years [...] a senior care (including now)? No 03/13/2022 Sex and Gender Information Value Date Recorded Sex Assigned at Not on file Gender Identity Not on file Sexual Orientation Not on file documented as of this encounter Last Filed Vital Signs Vital Sign Reading Time Taken Comments Blood Pressure 142/72 07/25/2022 1:06 PM EDT Pulse - - Temperature - - Respiratory Rate - - Oxygen Saturation - - Inhaled Oxygen Concentration - - Weight 91.2 kg (201 lb) 07/25/2022 1:06 PM EDT Height - - Body Mass Index 37.98 07/25/2022 11:32 AM EDT documented in this encounter Progress Notes * Kate Villalta MD - 07/25/2022 1:00 PM EDT Images from the original note were not included. LACE [employer]ER Follow-up Visit Reason for Visit: Bessie is a 36 y.o. pre menopausal female who presents for follow-up from an ER visit for pelvic pain. HPI: She was seen in the ER at [facility] on 07/05/22 with pelvic pain. It was in the front and wrapping around to the back. At that time she had a CT scan that showed mild uterine lobularity, suggestive of possible small fibroids. She had an ultrasound scheduled as an outpatient and was advised to follow-up with gynecology. She had the ultrasound done on 07/19/22 which was normal with no fibroids and no ovarian masses. Pain now much better. 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 She does have a history of an incidental finding of a 6 cm L ovarian cyst seen on CT scan 11/09/21. She had a follow-up ultrasound done on 02/09/22 which showed the cyst had resolved and again a normal uterus with no fibroids. She did have HPV on pap smear - is having a repeat done at sometime soon with her PCP. View : No data to display. Patient Active Problem List Diagnosis Date Noted ??? Asthma 07/25/2022 ??? Contusion of muscle [...] 01/04/2020 Added automatically from request for surgery [id number] Past Surgical History: Procedure Laterality Date ??? PRO ALLOGRAFT FOR SPINE SURGERY ONLY MORSELIZED Bilateral 01/05/2022 ALLOGRAFT FOR SPINE SURGERY ONLY; MORSELIZED (WRVU *) performed by Charly Wilkins MD at [facility] MAIN OR ??? PRO ARTHRODESIS COMBINED TECHNIQUE 1 INTERSPACE LUMBAR Bilateral 01/05/2022 ARTHRODESIS, COMB. POST OR POSTEROLAT W/LAMI &/OR DISC SINGLE INTERSPACE; LUMBAR (WRVU 27.75) performed by Charly Wilkins MD at [facility] MAIN OR ??? PRO ARTHRODESIS POSTERIOR/PSTLAT TECHNIQUE 1 INTERSPACE LUMBAR Bilateral 01/05/2022 ARTHRODESIS, LUMBAR SPINE, SINGLE INTERSPACE (WRVU 23.53) performed by [facility] MD [facility] ??? PRO AUTOGRAFT SPINE SURGERY LOCAL FROM SAME INCISION Bilateral 01/05/2022 AUTOGRAFT FOR SPINE SURGERY ONLY, SAME INCISION (WRVU *) performed by Charly Wilkins MD at [facility] MAIN OR ??? PRO INJECTION DX/THER SBST INTRLMNR LMBR/SAC W/IMG GDN Midline 05/18/2021 INJECTION, EPIDURAL, LUMBAR OR SACRAL (CAUDAL), WITH IMAGING GUIDANCE (WRVU 1.8) performed by Sarah Munguia MD at [facility] PAIN MGMT MSO ??? PRO LAMINEC/FACETECT/FORAMIN, LUMBAR 1 SEG Bilateral 01/05/2022 LAMINECTOMY, FACETECTOMY & FORAMINOTOMY,LUMBAR, ONE LEVEL (WRVU 15.37) performed by Charly Wilkins MD at [facility] MAIN OR ??? PRO POSTERIOR NON-SEGMENTAL INSTRUMENTATION Bilateral 01/05/2022 POSTERIOR SPINAL NON-SEGMENTAL INST.(ONE SPACE) (WRVU 12.52) performed by Charly Wilkins MD at [facility] MAIN OR ??? PRO STEROTACTIC CPTR ASSTD PX SPINAL Bilateral 01/05/2022 STEREOTACTIC COMPUTER-ASSTD NAVIGATIONAL SPINAL (WRVU 3.75) performed by Charly Wilkins MD at [facility] MAIN OR Family History Problem Relation Age of Onset ??? Uterine Cancer Neg Hx ??? Ovarian Cancer Neg Hx ??? Colorectal Cancer Neg Hx ??? Breast Cancer Neg Hx Social History Occupational History ??? Not on file Tobacco Use ??? Smoking status: Never ??? Smokeless tobacco: Never ??? Tobacco comments: vapes but not nicotine Vaping Use ??? Vaping Use: Every day ??? Substances: THC Substance and Sexual Activity ??? Alcohol use: Never ??? Drug use: Yes Types: Marijuana Comment: marijuana use daily pt vapes marijuana ??? Sexual activity: Not on file Comment: deferred OB History 4 Para 2 Term 1 1 AB 2 Living 2 SAB IAB 2 Ectopic Multiple Live Births # Outc Date GA Lbr Chris/2nd Wgt Sex Del Anes PTL Lv 1 IAB 2001 2 2008 Vag-Spont Comments: induced for severe preE at 36w4d with tears 3 Term 2010 Vag-Spont Comments: PROM, tears, gHTN 4 IAB 2020 Current Outpatient Medications Medication Sig Dispense Refill ??? cyclobenzaprine (Flexeril) 5 mg tablet Take 1 tablet by mouth 3 times daily as needed for Muscle spasms. 90 tablet 5 ??? gabapentin (Neurontin) 300 mg capsule Take 1 capsule by mouth 2 times daily. 60 capsule 5 ??? methylcellulose (CITRUCEL ORAL) Take by mouth as needed. ??? celecoxib (CeleBREX) 100 mg Capsule Take 1 capsule by mouth 2 times daily. (Patient taking differently: Take 200 mg by mouth 2 times daily.) 60 capsule 5 ??? cloBAZam (Onfi) 10 mg Tablet Take 1 pill in AM and 2 pills in PM 90 tablet 5 ??? cholecalciferol, Vitamin D3, 50 mcg (2,000 unit) Tablet Take 1 tablet by mouth daily. 90 tablet3 ??? ProAir HFA 90 mcg/actuation HFA Aerosol [...] No current facility-administered medications for this visit. Allergies Allergen Reactions ??? Depakote [Divalproex] Other (See Comments) Edema Physical Exam Last Set of Vitals: BP 142/72 Wt 91.2 kg (201 lb) LMP 07/07/2022 (Exact Date) BMI 37.98 kg/m?? Weight: 91.2 kg (201 lb) Body mass index is 37.98 kg/m??. Physical Exam Gen: Well-appearing female in NAD Back: No CVA tenderness Abd: Obese, soft, non-tender to palpation, no masses Pelvic ultrasound 07/19/22: Uterus anteverted, 10.3 x 4.4 x 5.5 cm. Endometrium 0.7cm. Myometrium unremarkable. Cervix unremarkable. Normal R and L ovaries Impression: 1. Normal-appearing uterus with endometrial stripe within normal limits 2. Unremarkable bilateral ovaries Assessment/Plan: Bessie Levy is a 36 y.o. who presents for follow- up of an ER visit for pelvic pain. The pain has now resolved. I reviewed with her the CT scan report which showed possible small fibroids and discussed that this is not the best imaging modality for the uterus. We reviewed the ultrasound report as well which showed a normal uterus with no fibroids and also normal ovaries. Given this, it is very unlikely that her pain was from a ob gyn physician assistant etiology, and more likely related to her recent surgery and musculoskeletal. All questions answered. Also encouraged patient to schedule her follow-up pap smear with her PCP when it is due. Kate Villalta MD documented in this encounter Plan of Treatment Upcoming Encounters Date Type Department Care Team (Late st Contact Info) Description 12/24/2023 10:00 AM EDT [place] [address] Tereso Mohan MD [facility] [place] [address] 12/24/2023 10:30 AM EDT Appointment XRay at [address] [place] [phone] Shelby Aaron APRN [facility] [place] [address] 12/24/2023 11:30 AM EDT Office Visit [facility] [place] [address] Shelby Aaron [facility] [place] [address] documented as of this encounter Visit Diagnoses Diagnosis Myofascial pain- Primary Mylagia and myositis, unspecified Acute pelvic pain, female Unspecified symptom associated with female genital organs documented in this encounter Care Teams Discharge Door Operator Relationship Specialty Start Date End Date Comfort Urban APRN [address] [place] [address] PCP - General Family Medicine 07/19/17 03/11/23 documented as of this encounter
--- OUTSIDE RECORDS SUMMARY | 2023-11-16 14:12 | XMS_ITS | Encounter Summary ---
Author Organization [facility] [place] [address] Care Team Providers Care Manager Economic Name Role Phone Comfort Urban APRN Primary Care Provider [phone] Encounter Details Date Type Department Care Team (Late st Contact Info) Description 07/19/2022 Ancillary Procedure Radiology Library at [facility] [place] [phone] Comfort Urban APRN [address] [place] [address] Social History Tobacco Use Types Packs/Day Years [...] place to sleep or slept in a alf (including now)? No 03/13/2022 Sex and Gender Information Value Date Recorded Sex Assigned at Not on file Gender Identity Not on file Sexual Orientation Not on file documented as of this encounter Plan of Treatment Upcoming Encounters Date Type Department Care Team (Late st Contact Info) Description 12/24/2023 10:00 AM EDT Office Visit Neurology at [address] Tereso Mohan MD [facility] [place] [address] 12/24/2023 10:30 AM EDT Appointment XRay at [address] [place] [phone] Shelby Aaron DIRECTOR NON PROFIT [facility] [place] [address] 12/24/2023 11:30 AM EDT Office Visit [facility] at [place] [phone] Shelby Aaron APRN [facility] [place] [address] documented as of this encounter Procedures Procedure Name Priority Date/Time Associated Diagnosis Comments FILM LIBRARY STORAGE ONLY ULTRASOUND STUDY Routine 07/19/2022 12:00 AM EDT documented in this encounter Results * Film Library- Storage Only Ultrasound Study (07/19/2022 12:00 AM EDT) Narrative RAD - 07/20/2022 10:23 AM EDT This exam is auto-finalizing. It's purpose is for storage only. Comfort Urban APRN Juan A FILM LIBRARY ORD ERABLES [place], [place] documented in this encounter Visit Diagnoses Not on filedocumented in this encounter Care Teams Manager Economic Relationship Specialty Start Date End Date Comfort Urban APRN [address] [place] [address] PCP - General Family Medicine 07/19/17 03/11/23 documented as of this encounter
--- OUTSIDE RECORDS SUMMARY | 2023-11-16 14:12 | XMS_ITS | Encounter Summary ---
Author Organization [facility] [place] [address] Care Team Providers Care Director Of Institutional Research Name Role Phone Rajni Comfort SELVIN Primary Care Provider Reason for Referral * Home Health Care (Routine) - Closed Specialty Diagnoses / Procedures Referred By Kristan t Referred To Contact Diagnoses Radiculopathy of lumbar region Charly Wilkins MD [facility] [place] [address] [facility] Emergency Department [address] [place] [address] Referral ID Status Reason Start Date Expiration Date V isits Requested Visits Authorized [id number] Closed Consult, Test & Treat 01/08/2022 07/07/2022 999 999 Reason for Visit * Auth/Cert Specialty Diagnoses / Procedures Referred By Contac t Referred To Contact Diagnoses Lumbar stenosis L4-5 with neurogenic medication Procedures PRO ARTHRODESIS POSTERIOR/PSTLAT TECHNIQUE 1 INTERSPACE LUMBAR PRO LAMINEC/FACETECT/FORAMIN, LUMBAR 1 SEG PRO ARTHRODESIS COMBINED TECHNIQUE 1 INTERSPACE LUMBAR PRO POSTERIOR NON-SEGMENTAL INSTRUMENTATION PRO AUTOGRAFT SPINE SURGERY LOCAL FROM SAME INCISION PRO ALLOGRAFT FOR SPINE SURGERY ONLY MORSELIZED PRO STEROTACTIC CPTR ASSTD PX SPINAL ARTHRODESIS, LUMBAR SPINE, SINGLE INTERSPACE (WRVU 23.53) LAMINECTOMY, FACETECTOMY & FORAMINOTOMY,LUMBAR, ONE LEVEL (WRVU 15.37) ARTHRODESIS, COMB. POST OR POSTEROLAT W/LAMI &/OR DISC SINGLE INTERSPACE; LUMBAR (WRVU 27.75) POSTERIOR SPINAL NON-SEGMENTAL INST.(ONE SPACE) (WRVU 12.52) AUTOGRAFT FOR SPINE SURGERY ONLY, SAME INCISION (WRVU *) ALLOGRAFT FOR SPINE SURGERY ONLY; MORSELIZED (WRVU *) MODIFIER SOLERA MODULAR MEDTRONIC MODIFIER,O-ARM, MOR MODIFIER,STEALTH 3 W/O KINEVO,CRANI/SPINE ONLY STEREOTACTIC COMPUTER-ASSTD NAVIGATIONAL SPINAL (WRVU 3.75) MODIFIER L4 MODIFIER L5 Charly Wilkins MD [facility] [place] [address] [facility] Referral ID Status Reason Start Date Expiration Date Visits Re quested Visits Authorized [id number] 1 1 Encounter Details Date Type Department Care Team (Latest Contact Info) Description 01/05/2022 7:16 AM EDT - 01/08/2022 1:01 PM [facility] Hospital Encounter [address] [place] [id number] Charly Wilkins MD [facility] [place] [address] Radiculopathy of lumbar region; Congenital anomalies of spine; Spondylolisthesis at L4-L5 level; s/p L4-5 decompression, PSIF Dr. Wilkins Discharge Disposition: Home with VNA Social History Tobacco Use Types Packs/Day Years [...] Sign Reading Time Taken Comments Blood Pressure 123/75 01/08/2022 9:12 AM EST Pulse 76 01/07/2022 7:34 PM EST Temperature 36.4 ??C (97.5 ??F) 01/08/2022 9:12 AM ES T Respiratory Rate 18 01/08/2022 9:12 AM EST Oxygen Saturation 93% 01/08/2022 9:12 AM EST Inhaled Oxygen Concentration - - Weight 98.9 kg (218 lb) 01/05/2022 7:30 AM EDT Height 154.9 cm (5' 1) 01/05/2022 7:30 AM EDT Body Mass Index 41.19 01/05/2022 7:30 AM EDT documented in this encounter Discharge Summaries * Grazyna Grossman P, TAX EXAMINER - 01/05/2022 2:35 PM EDT Discharge Summary Patient Name: Bessie Levy Patient Age: 36 y.o. Language: Yemeni Race: White Ethnicity: Not nor Admit date: 01/05/2022 Discharge date and time: 01/08/2022 Attending Physician: Charly Wilkins MD Discharge Physician: Charly Wilkins MD Follow-up Recommendations for Providers: See discharge instructions for additional details. Future Appointments Date Time Provider Department Center 01/16/2022 4:30 PM Tereso Mohan MD [facility]O [facility] 01/23/2022 1:00 PM Charly Wilkins MD [facility] Pain Sp [facility] 02/01/2022 1:00 PM [facility] US ROOM 3 [facility] Rad 02/01/2022 2:20 PM Naveen Hodge MD [facility] OBG 5L [facility] Inpatient Provider Contact Information: Charly Wilkins MD Spine Center: [phone] After hours and weekends, call [facility] Money Order Clerk, , and have the Orthopedic resident paged. Discharge Diagnoses (Hospital Problems) and Secondary Diagnoses (Chronic Problems): Active Hospital Problems Diagnosis ??? s/p L4-5 decompression, PSIF Dr. Wilkins ??? Morbid obesity with BMI of 40.0-44.9, adult Resolved Hospital Problems No resolved problems to display. Active Non-Hospital Problems Diagnosis ??? Seizure-like activity ??? Seizures ??? CIS - Entered not Verified ??? CIS - ASD, S/P repair ??? CIS - Asthma ??? CIS - Depression ??? CIS - Hx CHTN Operations/Major Procedures: 01/05/2022 Surgeon(s) and Role: * Charly Wilkins MD - Primary * Bandar Jolly MD - Resident Procedure(s): L4-5 decompression, PSIF Findings: 1. L4-5 s/p decompression, PSIF. Unable to place a TLIF cage due to location of the exiting nerve root History of Presentation (Details taken from Dr. Wiklins's Note 12/12/21): Bessie Levy is a 36 y.o. female with a chief complaint of significant low back pain into her hips. Walking is significant worse than sitting. It goes into her back and her lateral hips. Diagnosis: 1. 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 7 mm listhesis on flexion. Correction to 4 mm on extension. 2. Bilateral L5 radiculopathy as well as back pain. 3. Obesity BMI 41 4. Medical issues including cardiology, neurology. Hemoglobin A1c 5.2 Patient saw cardiology on 12/01/2021 with no further work-up recommended. Patient saw neurology on 11/29/2021 EEG normal. No change other than no longer taking Depakote. Primary care provider wrote a note on 11/10/2021 and did not recommend any more follow-up. Patient seen by Dr. Swenson and recommended the similar consults which were obtained. Proposed procedure: Posterior L4-5 lumbar decompression and fusion with TLIF autograft allograft. Risks and benefits discussed in detail. Hospital Course: Bessie Levy was admitted for the above operation. Operative course was as follows. On POD#1 she was allowed out of bed ad david, with no bending or twisting, no lifting more than10 pounds, and no pushing or pulling. These parameters were reinforced by physical and occupational therapy. Bessie Baker was changed to oral pain medications on POD#1 and was comfortable after adjustments were made. The omer catheter was removed on POD#1 and she required straight cath X 4. On POD#3, the patientwas then able to void with PVR 68. Drain removed on POD#1, drain site benign. On POD#3 the dressingwas dry and intact and the wound was benign. She did not have a bowel movement prior to discharge but was passing flatus and taking PO without difficulty. On POD#3, the patient's hemoglobin was 10.3 down from 12.8 on 9//, pre-op, indicating hemoglobin drop associated with anemia from a combination of acute blood loss from surgery and hemodilution as expected. The patient was monitored with nointervention warranted. Prior to discharge on POD#3 Bessie Levy was afebrile, with stable vital signs, successfully cleared PT and was deemed stable for discharge to home. Vital Signs at Discharge: Weight: Wt Readings from Last 1 Encounters: 11// 98.9 kg (218 lb) Height: Ht Readings from Last 1 Encounters: 01/05/ 154.9 cm (5' 1) HC: HC Readings from Last 1 Encounters: No data found for HC BMI: Body mass index is 41.19 kg/m??. Last value Range last 24 hrs Temperature Temp: 36.4 ??C (97.5 ??F) Temp: [36.4 ??C (97.5 ??F)-37.5 ??C (99.5 ??F)] Heart Rate Heart Rate: 76 Heart Rate: [76] Blood Pressure BP: 123/75 BP: (105-144)/(66-91) Respiratory Rate Resp: 18 Resp: [16-18] SpO2 SpO2: 93 % SpO2: [90 %-98 %] Functional and Cognitive Status: Patient mobilizing with a walker, cognitively intact at baseline mental status at time of discharge. Important Lab Data: Last 3 wbc, hgb, hct plt Recent Labs 01/08/22 0858 01/06/22 0510 11/23/21 1710 WBC 12.4* 16.9* 7.0 HGB 10.3* 11.4* 12.8 HCT 30.5* 32.8* 36.6 PLATELET 220 257 234 Last 3 Lytes Recent Labs 01/08/22 0858 01/06/22 0510 11/23/21 1710 NA 136 134* 137 K 3.4* 4.0 4.1 CL 104 101 100 CO2 22 21* 23 BUN 8 7* 14 CREATININE 0.55* 0.69* 0.76 Last 3 LFTs Recent Labs 11/23/21 1710 11/08/21 1327 07/04/21 1659 06/05/21 1620 04/07/21 1310 AST 22 17 21 13 15 ALT 29 21 21 14 16 ALKPHOS 25* 24* 33* 33* 33* BILITOT 0.2 0.2 0.3 <0.2* 0.3 BILIDIR -- 0.1 -- 0.1 0.1 Last Ca, Mg, Phos Recent Labs 01/08/22 0858 CALCIUM 8.6 Last 3 Coags No results for input(s): PT, INR, PTT in the last 168 hours. Last 3 ProBNP, Trop, CK No results for input(s): CK, TROPONINT, PROBNP in the last 168 hours. Last 3 HgbA1C Recent Labs 04/07/21 1310 HA1C 5.2 Last CRP, SEDRATE Recent Labs 11/24/21 1422 CRP <3.0 SEDRATE 6 Studies: XR Lumbar Spine 1 View Result Date: 01/05/2022 EXAMINATION: XR LUMBAR SPINE 1 VIEW CLINICAL HISTORY: surgery TECHNIQUE: 1 views of the lumbar spine, single image COMPARISON: CT lumbar spine 10/04/2021 FINDINGS: There is mild, 5 mm anterolisthesis of L4 on L5. No interval loss of vertebral body height. Normal disc space heights and vertebral body heights. A localization marker projects at the level of L4 Localization marker projects at the level of L4. Thank you for letting us participate in the care of this patient. If you are a health care provider and have any questions regarding this report, please contact the number below. For patients who have questions please contact the health chronic care nurse that requested your imaging first. Lumbar Spine 2 Or 3 Views (Generic) Result Date: 01/05/2022 EXAMINATION: XR LUMBAR SPINE 2 OR 3 VIEWS (GENERIC) CLINICAL HISTORY: s/p L4-5 decompression, PSIF TECHNIQUE: 2 views of the lumbar spine COMPARISON: Intraoperative fluoroscopy January 05, 2022 FINDINGS: Patient is status post posterior L4-5 fusion. Position of threaded screws stable. Overlying drain is present. Alignment maintained. Patient is status post posterior L4-5 fusion. Thank you for letting us participate in the care of this patient. If you are a health care provider and have any questions regarding this report, please contact the number below. For patients who have questions please contact the health chronic care nurse that requested your imaging first. O-Arm No Rad <1Hr - OR Use Result Date: 01/05/2022 EXAMINATION: XR O-ARM NO RAD - OR USE CLINICAL HISTORY: surgery TECHNIQUE: Series: The submitted images consist of 5 intraoperative fluoroscopic spot images and [address] image sets with corresponding sagittal and coronal reformatted images. Expected findings. Imaging obtained for intraoperative guidance. Thank you for letting us participate in the care of this patient. If you are a health care provider and have any questions regarding this report, please contact the number below. For patients who have questions please contact the health chronic care nurse that requested your imaging first. Electronically signed by: Alfred Hernandez MD, [facility] ([phone]), at 01/05/2022 5:16 PM SCAN DOC: TELEMETRY STRIPS Result Date: 01/05/2022 Ordered by an unspecified provider. Pending Studies and Lab Data at Discharge: None. Transfusions: No Discharge Conditions/Prognosis: Stable, awake, and alert. Mobilizing as noted above, pain controlled on oral medications. Discharge to: Home with VNA. Updated Allergies/ADRs: No Known Allergies Immunizations Given this Hospitalization: Immunization History Administered Date(s) Administered ??? Influenza Vaccine (Novel) D4H6-00, Injectable 04/26/2009 ??? Influenza Vaccine, Whole 04/26/2009 Discharge Medications: Your Medications New Medications Dose Details acetaminophen 500 mg Tab Commonly known as: Tylenol Take 2 tablets by mouth every 8 hours. Continue the Tylenol around the clock for 10 days after surgery, (01/15/22). Then may take if needed per package insert. Do not take more than 3,000 mg of Tylenol in 24 hours. 1,000 mg Refills: 0 cyclobenzaprine 5 mg Tab Commonly known as: Flexeril Take 1 tablet by mouth every 8 hours as needed for Muscle spasms. 5 mg Quantity: 15 tablet Refills: 0 oxyCODONE 5 mg Tab Commonly known as: Roxicodone Take 1-2 tablets by mouth every 4 hours as needed for Pain (Acute post-op surgical pain). 5-10 mg Quantity: 42 tablet Refills: 0 polyethylene glycoL 17 gram Pwpk Commonly known as: Miralax Take 17 g by mouth 2 times daily. 17 g Refills: 0 senna-docusate 8.6-50 mg Tab Commonly known as: Pericolace Take 2 tablets by mouth 2 times daily. 2 tablet Refills: 0 Continued medications, unchanged Dose Details ARIPiprazole 2 mg Tab Commonly known as: Abilify Take 2 mg by mouth daily. 2 mg Refills: 0 cholecalciferol (Vitamin D3) 50 mcg (2,000 unit) Tab Take 1 tablet by mouth daily. 2,000 Units Quantity: 90 tablet Refills: 3 citalopram 20 mg Tab Commonly known as: CeleXA Take 40 mg by mouth daily. 40 mg Refills: 0 cloBAZam 10 mg Tab Commonly known as: Onfi Take 1 pill in AM and 2 pills in PM Quantity: 90 tablet Refills: 5 lidocaine 5% Ptmd Commonly known as: Lidoderm Apply 1 patch onto the skin daily. (leave on for 12 hours and remove for 12 hours) Quantity: 30 patch Refills: 0 ProAir HFA 90 mcg/actuation Hfaa INL 1 TO 2 PFS PO Q 4 TO 6 H PRN Generic drug: albuteroL Refills: 0 UNABLE TO FIND Take by mouth as needed. Med Name: CBD oil Refills: 0 STOPPED Medications celecoxib 200 mg Cap Commonly known as: CeleBREX furosemide 20 mg Tab Commonly known as: Lasix Smoking Status at Discharge: Social History Tobacco Use Smoking Status Never Smoker Smokeless Tobacco Never Used Tobacco Comment vapes but not nicotine Instructions Given to Patient at Discharge: Patient Instructions Activity: 1. You may perform your daily activities as tolerated but minimize bending at the waist greater than 90 degrees, twisting around your waist, or lifting anything heavier than 5-10 lbs (about a full gallon of water). 2. In general, guide your activity by [...] them. 3. You should also take an jxka-qsr-vbccupv stool softener of laxative, such as Emery-colace or Miralax, to facilitate a bowel movement. Drivin. You are not allowed to drive if you are still requiring narcotic pain medication to manage your discomfort. 2. In general, you may begin to drive once you are off of your pain medications and you are comfortable. Call the Spine Center or your Primary [...] the clock as directed on the package insert to help reduce the amount of narcotic medication you need. Do not take more than 3,000mg of acetaminophen ramón 24 hour period. 3. You have had a spinal fusion surgery. DO NOT take any nonsteroidal anti- inflammatory medication (NSAID) such as Aleve, Ibuprofen, Motrin, Naprosyn, Celebrex, or Advil. 4 If you need a renewal of your pain medication, please contact the Spine Center Prescription Line at [phone]. PRESCRIPTION RENEWAL REQUESTS CAN TAKE UP TO 3 DAYS TO FILL. Be sure to allow for this when requesting a new prescription. The new prescription will be sent electronically to your preferred pharmacy. 5. You were prescribed Lidoderm patches in the hospital to help reduce pain. You may use the patches you have at home or purchase a similar item over the counter (Salonpas 4%) and use per package insert. 6. You were prescribed a muscle relaxant, Flexeril. Take 5 mg every 8 hours IF NEEDED for muscle spasms. Wound Care/Shower/Bath: 1. You have sutures that need to be removed 3 weeks after your surgery. This can be done at your follow-up appointment with Dr. Wilkins on 01/23/22. The sutures are covered by a silver Mepilex dressing. 2. This dressing should stay in place until 7 days after your surgery. After 7 days, on 01/12/22, you may remove the dressing and leave [...] For the first 7 days after surgery, shower with the clear plastic Tegaderm dressing covering your incision to keep it dry. After 7 days when the dressing has been removed, you may allow water to run over the incision when you shower but do not scrub the surrounding skin. Gently pat dry with a clean, dry towel after showering. 4. Do not soak the incision underwater (i.e. lakes, pools, hot tubs, bath tubs, etc.) for at least 4 weeks until the incision has completely healed. PLEASE CALL US AT [phone] TO SPEAK WITH A SPINE CENTER NURSE [...] Numbers: Clinical issues, nurse questions, medication renewals: [phone] Wilkins: [phone] Evenings after 5pm and weekends you may contact the Orthopaedic resident brim ironer hand: [phone], askthe earth auger operator to page the Orthopaedic resident Follow Up Appointments: 1. You will have follow-up appointments at [facility] as indicated in the ???Future Appointments and Orders?? section of your discharge summary. If X-rays have been ordered for you prior to this appointment you will need to report to the Radiology department, desk 3T, 1 hour prior to your spine center appointment. Future Appointments Date Time Provider Department Center 01/16/2022 4:30 PM Tereso Mohan MD [facility] NEURO [facility] 01/23/2022 1:00 PM Charly Wilkins MD [facility] Pain Sp [facility] 02/01/2022 1:00 PM [facility] US ROOM 3 [facility] Rad 02/01/2022 2:20 PM Naveen Hodge MD [facility] OBG 5L [facility] General Instructions None Future Appointments and Orders Future Appointments and Orders Future Appointments Provider Department Dept Phone 01/16/2022 4:30 PM Tereso Mohan MD Neurology at [facility] Arrive at: [employer] [address] [phone] 01/23/2022 1:00 PM Charly Wilkins MD Pain and Spine Center at [facility] Arrive at: [employer] [address] [phone] 02/01/2022 1:00 PM [facility] US ROOM 3 Ultrasound at [facility] Arrive at: [employer] [address] [phone] If you need to bring a child to your Ultrasound appointment, the child MUST be accompanied by an adult other than yourself. The other adult needs to supervise the child in the waiting room during your procedure. We ask that there be no more than ONE adult in addition to the mother in the ultrasoundroom. NO cell phone usage is permitted in the ultrasound room. 02/01/2022 2:20 PM Naveen Hodge MD Obstetrics and Gynecology at [facility] Arrive at: [employer] [address] [phone] Future Orders Complete By [employer] [facility] [EQ161 Custom] As directed Process Instructions: Scheduling Instructions: Comments: Bessie Levy [address] [facility] [address] (home) Telephone Information: Diagnosis: deconditioning with Unsteady gait Significant weakness, ataxia or gait abnormality Patient's: Hgt: Ht Readings from Last 1 Encounters: 01/05/22 : 154.9 cm (5' 1) ? Wgt: Wt Readings from Last 1 Encounters: 01/05/22 : 98.9 kg (218 lb) VENDOR: [facility] Loc[facility] @ [place], [place] Ordering: Front wheel walker Deliver to pt's hospital room #: 419B Questions: Device Needed: WALKER (E0143) Referral to Home Health [REF34 Custom] As directed Process Instructions: If no progress note charted, please enter Clinical details in comments. Scheduling Instructions: Comments: Please evaluate Bessie Levy for admission to Home Health. [address] [place] [address] [facility] [address] (home) Date of : 1985 Inpatient DOCUMENTATION FOR VNA SERVICES (INCLUDING THOSE PATIENTS WITH MEDICARE COVERAGE REQUIRING HOME VNA SERVICES AND/OR HOSPICE SERVICES) PATIENT'S LOCATION: Bessie Levy [address] [facility] [address] (home) Cell: Telephone Information: Body Shop Floorperson's Name: Bessie Levy In discussion with the attending physician, it is certified that this patient is under their care and that they, or a Nurse Practitioner,Clinical Nurse specialist or Physician Laborer [employer]erving [employer] who is working directly with them, had a face to face encounter that meets the physician face to face encounter requirements with this patient on 01/08/22 The encounter with the patient was in whole, or in part, for the following medical condition, whichis the primary reason for home health care services: s/p L4-5 decompression, PSIF 01/05/22 In discussion with the provider, it is certified that, based on their findings, the following services are medically necessary for home health services. To provide the following care/treatments with the clinical findings supporting the need for services as follows: HOME CARE ORDERS: OT: assess and continue rehab for managing ADL's. PT ORDERS: Continue rehab for endurance, gait stability and strength with mobility and transfers. Home safety evaluation. Home exercise program if appropriate. Activity as tolerated, no bending twisting or lifting greater than 5 pounds. Suture removal at f/u with Dr. Wilkins on 01/23/22. HOME HEALTH CARE AGENCY: [facility] [address] [place] [address] Start of care: Within 24-48 hrs of discharge Please note that any additional orders needs or changes will need to be obtained from this patient's PCP: Comfort Urban APRN [address] [facility] [address] All VNA agencies which cover the area of patient's residence have been reviewed, either verbally [place] writing, and patient/family have chosen the home health care agency noted Questions: Disciplines Requested: Physical Therapy Occupational Therapy Primary Care Provider: Comfort Urban APRN [phone] Discharge References/Attachments None documented in this encounter Discharge Instructions * Patient Instructions* Grazyna Grossman, SELVIN - 01/04/2022 3:49 PM EDT Activity: 1. You may perform your daily activities as tolerated but minimize bending at the waist greater than 90 degrees, twisting around your waist, or lifting anything heavier than 5-10 lbs (about a full gallon of water). 2. In general, guide your activity by [...] them. 3. You should also take an iyoz-mqv-prduejs stool softener of laxative, such as Emery-colace or Miralax, to facilitate a bowel movement. Drivin. You are not allowed to drive if you are still requiring narcotic pain medication to manage your discomfort. 2. In general, you may begin to drive once you are off of your pain medications and you are comfortable. Call the Spine Center or your Primary [...] the clock as directed on the package insert to help reduce the amount of narcotic medication you need. Do not take more than 3,000mg of acetaminophen ramón 24 hour period. 3. You have had a spinal fusion surgery. DO NOT take any nonsteroidal anti- inflammatory medication (NSAID) such as Aleve, Ibuprofen, Motrin, Naprosyn, Celebrex, or Advil. 4 If you need a renewal of your pain medication, please contact the Spine Center Prescription Line at [phone]. PRESCRIPTION RENEWAL REQUESTS CAN TAKE UP TO 3 DAYS TO FILL. Be sure to allow for this when requesting a new prescription. The new prescription will be sent electronically to your preferred pharmacy. 5. You were prescribed Lidoderm patches in the hospital to help reduce pain. You may use the patches you have at home or purchase a similar item over the counter (Salonpas 4%) and use per package insert. 6. You were prescribed a muscle relaxant, Flexeril. Take 5 mg every 8 hours IF NEEDED for muscle spasms. Wound Care/Shower/Bath: 1. You have sutures that need to be removed 3 weeks after your surgery. This can be done at your follow-up appointment with Dr. Wilkins on 01/23/22. The sutures are covered by a silver Mepilex dressing. 2. This dressing should stay in place until 7 days after your surgery. After 7 days, on 01/12/22, you may remove the dressing and leave [...] For the first 7 days after surgery, shower with the clear plastic Tegaderm dressing covering your incision to keep it dry. After 7 days when the dressing has been removed, you may allow water to run over the incision when you shower but do not scrub the surrounding skin. Gently pat dry with a clean, dry towel after showering. 4. Do not soak the incision underwater (i.e. lakes, pools, hot tubs, bath tubs, etc.) for at least 4 weeks until the incision has completely healed. PLEASE CALL US AT [phone] TO SPEAK WITH A SPINE CENTER NURSE [...] Numbers: Clinical issues, nurse questions, medication renewals: [phone] Wilkins: [phone] Evenings after 5pm and weekends you may contact the Orthopaedic resident brim ironer hand: [phone], askthe earth auger operator to page the Orthopaedic resident Follow Up Appointments: 1. You will have follow-up appointments at [facility] as indicated in the ???Future Appointments and Orders?? section of your discharge summary. If X-rays have been ordered for you prior to this appointment you will need to report to the Radiology department, desk 3T, 1 hour prior to your spine center appointment. Future Appointments Date Time Provider Department Center 01/16/2022 4:30 PM eTreso Mohan MD [facility] NEURO [facility] 01/23/2022 1:00 PM Charly Wilkins MD [facility] Pain Sp [facility] 02/01/2022 1:00 PM [facility] 3 [facility] Rad 02/01/2022 2:20 PM Naveen Hodge MD [facility] OBG 5L [facility] documented in this encounter Medications at Time of Discharge Medication Sig Dispensed Refills Start Date End Date cholecalciferol, Vitamin D3, 50 mcg (2,000 unit) Tablet Take 1 tablet by mouth daily. 90 tablet 3 04/10/2021 ProAir HFA 90 mcg/actuation HFA Aerosol Inhaler INL 1 TO 2 PFS PO Q 4 TO 6 H PRN 04/20/2019 ARIPiprazole (ABILIFY) 2 mg Tablet Take 2 mg by mouth daily. 0 02/03/2018 UNABLE TO FIND Take by mouth as needed. Med Name: CBD oil cyclobenzaprine (Flexeril) 5 mg Tablet Take 1 tablet by mouth every 8 hours as needed for Muscle spasms. 15 tablet 01/08/2022 01/15/2022 oxyCODONE (Roxicodone) 5 mg Tablet Take 1-2 tablets by mouth every 4 hours as needed for Pain (Acute post-op surgical pain). 42 tablet 01/08/2022 01/15/2022 acetaminophen (Tylenol) 500 mg Tablet Take 2 tablets by mouth every 8 hours. Continue the Tylenol around the clock for 10 days after surgery, (01/15/22). Then may take if needed per package insert. Do not take more than 3,000 mg of Tylenol in 24 hours. 01/08/2022 07/25/2022 polyethylene glycoL (Miralax) 17 gram Powder in Packet Take 17 g by mouth 2 times daily. 01/08/2022 03/13/2022 senna-docusate (Pericolace) 8.6-50 mg Tablet Take 2 tablets by mouth 2 times daily. 01/08/2022 03/13/2022 cloBAZam (Onfi) 10 mg Tablet Take 1 pill in AM and 2 pills in PM 90 tablet 5 09/19/2021 03/13/2022 citalopram (CELEXA) 20 mg Tablet Take 40 mg by mouth daily. 0 02/03/2018 03/12/2023 documented as of this encounter Progress Notes * Marisabel Blevins RN - 01/08/2022 1:01 PM EST Viral card that [facility] did not received discharge summary and cannot start services until it is received. Discharge summary faxed to [facility], FAX: . Office of Care Management Surgery Team Energy Audit Advisor [email or web address] Pager #[phone] * Domi Andrew RN - 01/08/2022 12:41 PM EST Patient cleared for discharge from MD, PT/OT stand point. Walker brought to patient at bedside for home. Patient going home with home services. IV removed, and belongings accounted for. Discharge paperwork and instructions reviewed with patient and mother at bedside. Verbalized understanding and noquestions or concerns at time of discharge. Wheeled down to mother's vehicle at [facility] for discharge by staff. Domi Andrew RN * Jany Anthony OT - 01/08/2022 11:07 AM EST Occupational Therapy Treatment Note Treatment Number OT: 3 Patient Dx: Bessie Levy is a 36 y.o. female admitted on 01/05/2022 for L4-5 decompression, PSIFon 01/05/22 Social History: Patient lives with her 2 daughters (ages 12 & 14) and her boyfriend Juan in [place], [place]. Theyhave a dog, 3 cats and a guinea pig. Pt works at the [email or web address] and is on medical leave. Juan currently is doing odd jobs for work and is able to be home to assist as needed. Home Setup: 2 level home with FOS to bedrooms on 2nd level. Can stay on the 1st level if needed andsleep on the couch. Has bathroom with tub/shower and grab bars on the 1st level. DME: crutches; shower chair; commode; may have a walker-not sure Baseline ADL/Mobility: Independent with ADL's and working at the [email or web address]. Juan does the grocery shopping, cooking, and IADL's. Pt enjoys watching tv, reading, coloring and playing with her daughters. ?? Precautions/Special Considerations: ??AAT, no bending, twisting, lifting >5 lbs; log roll Interval History: ? Discharge today Subjective: I keep getting spasms in my leg. O: Patient seen for skilled OT treatment, and demonstrated the following: ?? Cognition: ?? Pt groggy, and lying slouched in bed, and fidgeting slightly 2' uncomfortable. (Helped Pt get better situated in bed to improve comfort). ?? Pt able to recall her back precautions. ?? Functional Mobility: ?? Pt declined, as uncomfortable and had recently walked with PT. ?? Helped Pt boost up in bed, and get into better position. ?? ADL's: ?? Pt already dressed in street clothes. ?? AE was issued yesterday (sock aide, crm campaign manager, and LH sponge). ?? Pt states staff helped her dress today. ?? Educated Pt regarding each piece, and provided demonstration. Also issued toileting aide, after discussions of toileting routines, and concern with post emery-care with twisting. ?? Also educated Pt about shower transfers strategies, and DME recommendations for shower to improve perofrmance with task. Pt has shower seat with arms, but mom reports she might have a different option Pt can use. Vitals: stable throughout Pain: didn't give number, but states spasms in legs, and discomfort. Pt fidgety in bed as a result of discomfort. Helped Pt get in better position in bed. Education: Pt/family/caregiver education ongoing regarding: Transfers, Adaptive equipment training,ADL, Safety, Precautions/Protocol, Home Management, Recommendations and Discharge planning. Staff Communication: Patient status, treatment, and mobility recommendations discussed with nursing/other staff. ASSESSMENT: Pt appears more groggy and uncomfortable than yesterday, but insistent she is going home today. Pt already dressed in street clothes, but required assistance for task. Educated Pt in proper body mechanics, AE, and DME use to improve performance with ADLs. Pt will benefit from VNA OT to further progress independence with ADL's using the adaptive equipment. Pt reports that her boyfriendMike will assist her as needed. Pt will benefit from ongoing therapeutic interventions to achieve pt's and therapy goals Anticipated Discharge Disposition (OT): home with home health, home with supervision Equipment Recommendations: walker, front wheeled (has shower seat and commode in the basement) Daily schedule / Staff Recommendations: ?? Utilize upright chair position using bed features or transfer to recliner chair as appropriate with supervision using FWW, ambulate as tolerated with FWW and supervision ?? Encourage participation in ADL's by providing set up A on tray table and physical assist only asneeded ?? Reinforce spine precautions with all activity ?? Ambulate pt to the bathroom to use the toilet Occupational Therapy Goals: To be achieved by 01/13/22. 1. Pt will complete lower body ADL's with modified independence using adaptive equipment and techniques. (educated on) 2. Pt will ambulate with FWW to the bathroom with modified independence. (did with PT earlier) 3. Pt will perform toilet transfer, clothing management and toilet hygiene with modified independence. (educated re: toileting aide) 4. Pt will perform shower transfer and shower with supervision using shower seat. (reviewed transfer strategies and DME during session) Therapy Frequency (OT): (plan to d/c today) Total Minutes, Occupational Therapy: 11:07-11:20 (13 min self care mgmt x1) Pager:[phone] JANY ANTHONY OT Occupational Therapy Rehabilitation Department * Dajuan Ayala - 01/08/2022 10:30 AM EST Physical Therapy Note Treatment Number PT: 2 Patient profile: Bessie Levy??is a 36 y.o.?female??admitted on 01/05/2022??for L4-5 decompression, PSIF??on 01/05/22. ?? Social History: Patient lives??with her 2 daughters (ages 12 & 14) and her boyfriend Juan in [place], [place]. They have a dog, 3 cats and a guinea pig. Pt works at the [email or web address] and is on medical leave. Juan currently is doing odd jobs for work and is able to be home to assist as needed. Home Setup:??2 level home with FOS to bedrooms on 2nd level. Can stay on the 1st level if needed and sleep on the couch. Has bathroom with tub/shower and grab bars on the 1st level.?? DME:??crutches; shower chair; commode; may have a walker-not sure Baseline ADL/Mobility:??Independent with ADL's and working at the [email or web address]. Juan does the grocery shopping, cooking, and IADL's. Pt enjoys watching tv, reading, coloring and playing with her daughters. ?? Precautions/Special Considerations: ??AAT, no bending, twisting, lifting >5 lbs; log roll Mobility and Positioning Recommendations: ?? Pt is capable of indep amb with FWW in controlled environment ?? Supervision for safety while here Subjective: I want to go home today My boyfriend is not working right now so he can be there to help if I need it Objective: Patient seen for physical therapy and demonstrated the following: Pain: initially pain -08/11 and then when finished -10/11. RN aware. Pt had been medicated prior. Vital Signs: stable Cognition: pt appears very drowsy, at times closing her eyes even when standing. This was noted in PT initial evaluation also. Bed Mobility: Supine to Sit: cues for log roll, did so to R side with supervision, HOB up only slightly Sit to Supine: reverse log roll, R side of bed, with supervison Transfers: Sit to Stand: supervision, extra time, using FWW Stand to Sit: same Did this three times during PT session\ Assisted in lower body dressing by starting her underwear and pants and getting to thighs, then shestood and pulled them up herself which holding one hand on walker; steady no LOB Gait: Distance: 150 feet Device used: FWW Level of assist: Supervision; capable of indep in controlled environment Stairs: Up/down a step with rail, twice, with R rail and L hand hold assist; Advised she have her boyfriend help in this manner Balance: Sitting Static: good Sitting Dynamic: good Standing Static: good with walker Standing Dynamic / Gait: good with walker--able to pull up clothing with one hand on walker Education: role of PT, reminder of post op spine precautions Assessment: Bessie Levy was seen today for physical therapy treatment session for continuationof POC. Amy fairly. Presents with pain and dec activity tolerance. Met goals sufficiently for d/c to home with help, use of FWW, and home PT. Discharge Recommendations: Based on the current findings, Anticipated Discharge Disposition (PT): home with home health, home with supervision when medically ready for hospital discharge. Consult Recommendations: No other consults recommended at this time. Equipment needs: Anticipated Equipment Needs at Discharge (PT): walker, front wheeled Goals: To be achieved by 01/21/2022 All met sufficiently ?? 1. Pt. to demonstrate knowledge of safety limitations and precautions and will appropriately request assistance for functional activities and to mobilize. 2. Pt to be independent with bed mobility using log-roll technique 3. Pt to transfer from sit to stand with RW and modified independence 4. Pt to negotiate a FOS with unilateral railing and supervision 5. Pt to ambulate 150 ft with RW and modified independence 6. Pt to verbalize understanding of her spinal precautions ?? Plan: Therapy Frequency (PT): Monitor for therapy interventions as outlined in initial evaluation. Patient agrees with plan as stated. Time IN / OUT: 0105-4165 Total Minutes, Physical Therapy: 30 Billing Code: 2 COURTNEY Ayala DPT Pager: [phone] Physical Therapy Inpatient Rehabilitation Department * Bandar Jolly MD - 01/08/2022 6:11 AM EST ORTHOPAEDIC SURGERY INPATIENT PROGRESS NOTE Patient Name: Bessie Levy Age: 36 y.o. Surgery/Issue: L4-5 decompression, PSIF Attending: Claudette Date of surgery: 01/05/2022 SUBJECTIVE / INTERVAL HISTORY: AFVSS, no acute events overnight. Straight cath'd x 2 yesterday. Feels as though she is emptying her bladder more. Pain well controlled. Flexeril effective with spasms. Denies CP/N/V/Numbness/tingling/SOB Pre-op Symptoms: Low back pain radiating in to her hips Pre-op symptoms currently present: Low back pain FOCUSED REVIEW OF SYSTEMS: as above. Active Hospital Problems Diagnosis ??? s/p L4-5 decompression, PSIF Dr. Wilkins Resolved Hospital Problems No resolved problems to display. Active Non-Hospital Problems Diagnosis ??? Seizure-like activity ??? Seizures ??? CIS - Entered not Verified ??? CIS - ASD, S/P repair ??? CIS - Asthma ??? CIS - Depression ??? CIS - Hx CHTN MEDICATIONS: ??? cyclobenzaprine (Flexeril) tablet 5 mg ??? acetaminophen (Tylenol) tablet 1,000 mg ??? ipratropium-albuteroL (Duoneb) 0.5 mg-3 mg(2.5 mg base)/3 mL nebulizer solution 3 mL ??? cholecalciferol (Vitamin D3) tablet 2,000 Units ??? cloBAZam (Onfi) tablet 20 mg ??? sodium chloride 0.9 % (flush) (BD PosiFlush Normal Saline 0.9) flush 5 mL ??? sodium chloride 0.9 % (flush) (BD PosiFlush Normal Saline 0.9) flush 5-20 mL ??? lidocaine (Xylocaine) 1% (10 mg/mL) injection 3 mg ??? polyethylene glycoL (Miralax) packet 17 g ??? senna-docusate (Pericolace) 8.6-50 mg per tablet 2 tablet ??? sodium chloride 0.9% infusion ??? oxyCODONE (Roxicodone) tablet 5 mg OR oxyCODONE (Roxicodone) tablet 10 mg OR oxyCODONE (Roxicodone) tablet 15 mg ??? BUpivacaine-EPINEPHrine (Marcaine-epiNEPHrine) 0.25 %-1:200,000 injection ??? gelatin adsorbable 100 (Gelfoam) sponge ??? thrombin (Bovine) (Thrombinar) kit ??? vancomycin (Vancocin) injection ??? ARIPiprazole (Abilify) tablet 2 mg ??? citalopram (CeleXA) tablet 40 mg ??? cloBAZam (Onfi) tablet 10 mg ??? sodium chloride 0.9% 75 mL/hr (01/06/22 0648) OBJECTIVE: Temp: [37.1 ??C (98.8 ??F)-37.5 ??C (99.5 ??F)] Heart Rate: [76] Resp: [16-18] BP: (105-144)/(66-91) Intake/Output Summary (Last 24 hours) at 01/08/2022 0611 Last data filed at 01/08/2022 0518 Gross per 24 hour Intake 600 ml Output 1375 ml Net -775 ml Body mass index is 41.19 kg/m??. Exam: General: NAD, awake/alert, responds to questions CV: RRR assessed peripherally Resp: Breathing comfortably on NC Back: Dressing c/d/i, no hematoma Motor: Segment Muscle Action R L L2 Iliopsoas Hip flexion 5 5 L3 Quadriceps Knee extension 5 5 L4,5 Hamstring Knee Flexion 5 5 L4 Tibialis anterior Dorsiflexion 5 5 L5 Extensor hallucis Great toe extension 5 5 S1 Gastrocnemius, FHL Plantar flexion 5 5 Sensory: Sensation (light touch) (0=absent, 1=impaired, 2=normal) Segment Location Right Left L1 upper inner thigh 2 2 L2 mid-ant thigh 2 2 L3 med femoral condyle 2 2 L4 medial mal 2 2 L5 dorsum foot, 3rd MT 2 2 S1 lat heal 2 2 S2 Popliteal fossa 2 2 Lab Results Component Value Date NA 134 (L) 01/06/2022 K 4.0 01/06/2022 CL 101 01/06/2022 CO2 21 (L) 01/06/2022 BUN 7 (L) 01/06/2022 CREATININE 0.69 (L) 01/06/2022 GLUCOSE 126 01/06/2022 CALCIUM 8.3 (L) 01/06/2022 Lab Results Component Value Date WBC 16.9 (H) 01/06/2022 HGB 11.4 (L) 01/06/2022 HCT 32.8 (L) 01/06/2022 MCV 87.5 01/06/2022 PLATELET 257 01/06/2022 Lab Results Component Value Date INR 0.9 11/08/2021 IMAGING: Post op AP and lateral XR lumbar spine demonstrate interval posterior instrumented fusion L4-5 ASSESSMENT / PLAN: Bessie Levy is a 36 y.o. female 3 Days Post-Op s/p L4-5 decompression, PSIF103/07/21 Dr. Wilkins. Progressing well. Cleared by PT for home with home health. Likely DC today after voiding. Activity: AAT, no bending, twisting, lifting >5 lbs Closure: Sutures (remove 21 days) Dressing: Mepilex x 7 days Drain: Pulled 01/06 Anticoagulation: mechanical, SCDs Antibiotics: periop ancef Consults: PT/OT Dispo:pending PT/OT Follow-up: 01/[address] Claudette Jolly MD 01/08/2022 Future Appointments Date Time Provider Department Center 01/16/2022 4:30 PM Tereso Mohan MD [facility]O [facility] 01/23/2022 1:00 PM Charly Wilkins MD [facility] Pain Sp [facility] 02/01/2022 1:00 PM [facility] 3 [facility] Rad 02/01/2022 2:20 PM Naveen Hodge MD [facility] OBG 5L [facility] Associated attestation - Charly Wilkins MD - 01/08/2022 10:15 AM EST Patient seen today. Doing well. Mother present. No leg symptoms. Will continue to mobilize. All questions answered. Charly Wilkins MD [facility] Spine Surgery - Department of Orthopaedic Surgery Translator And Interpreter - Department of Orthopedic Surgery / Academics and Research Station Repairer Professor - [facility] 01/08/2022 * Morales Christianson RN - 01/08/2022 1:54 AM EST OUTCOME EVALUATION NOTE: OUTCOME SUMMARY: A&O x4, VSS on RA, afebrile. Denies chest pain, SOB, N/V. Reporting 5/10 pain, managed with scheduled and PRN medications. Bladder scan @ 0310 for 249 - no intervention per MD, Q6 bladder scans continued. Pt with urge to void, but unsuccessful. No BM this shift. Lumbar dressing CDI. Pt able to rest between care, will continue to monitor PLAN MOVING FORWARD: Encourage ambulation Pain management Monitor I&O, VS Q4 Q4 Neurovasc checks Q6 Bladder scans D/C planning INDIVIDUALIZED FALL PREVENTION INTERVENTIONS: Patient-specific fall risk factors per assessment: [current deficits]: unfamiliar environment, painw/ movement, generalized weakness, narcotics, needs assistance to get out of bed/chair, hx of falls Assistance [level of assistance required for transfers and ambulation]: SBA w/ FWW Supervision [direct monitoring required during toileting and ADLs]: Arms Reach Surveillance [continuous indirect monitoring]: Masimo, purposeful hourly rounding, call light within reach, room near nurses station, bed/chair alarm, bed in lowest position Patient-specific fall prevention interventions for sensory deficits provided, if applicable: Yes, light adjusted for task/safety, non-skid socks OOB CARE PLAN GOAL OUTCOME EVALUATION: * Angela Perez PTA - 01/07/2022 12:30 PM EST Physical Therapy Note RN deferred PT today. Patient experiencing high pain today. Was out of bed with OT, then 10 minuteslater needed to return back into bed. Will follow up as pain levels decrease. Also, now is being straight cath for retention. Angela Perez PTA Pager# [phone] * Jamin Ray OT - 01/07/2022 9:25 AM EST Occupational Therapy Treatment Note Treatment Number OT: 2 Patient Dx: Bessie Levy is a 36 y.o. female admitted on 01/05/2022 for L4-5 decompression, PSIFon 01/05/22 Social History: Patient lives with her 2 daughters (ages 12 & 14) and her boyfriend Juan in [place], [place]. Theyhave a dog, 3 cats and a guinea pig. Pt works at the [email or web address] and is on medical leave. Juan currently is doing odd jobs for work and is able to be home to assist as needed. Home Setup: 2 level home with FOS to bedrooms on 2nd level. Can stay on the 1st level if needed andsleep on the couch. Has bathroom with tub/shower and grab bars on the 1st level. DME: crutches; shower chair; commode; may have a walker-not sure Baseline ADL/Mobility: Independent with ADL's and working at the [email or web address]. Juan does the grocery shopping, cooking, and IADL's. Pt enjoys watching tv, reading, coloring and playing with her daughters. ?? Precautions/Special Considerations: ??AAT, no bending, twisting, lifting >5 lbs; log roll Interval History: per ortho note: LUCINDA Has been tolerating po intake 650cc s/c x1, now voiding spontaneously small amounts with high PVRs PT cleared for home with home health HGB 11.4 consistent with acute blood loss anemia Denies CP/N/V/Numbness/tingling/SOB Subjective: It really hurts. It is like a 9. O: Patient seen for skilled OT treatment, and demonstrated the following: ?? Cognition: ?? Alert and pleasant until end of the session, fatigued and having a lot of pain ?? Able to state precautions without cues ?? Adheres to precautions with mobility and toileting ?? Functional Mobility: ?? V cues for log roll to get OOB to the R ?? Sit><Stand: Supervision and v cues for hand placement with walker and for the chair ?? Supervision ambulate 10 ft x 2 to the bathroom ?? Supervision toilet transfer ?? ADL's: ?? Issued LH sponge, crm campaign manager and sock aide. Discussed how to use. Pt declined practicing LB dressing with AE due to significant pain after going to the bathroom ?? V cues to perform toilet hygiene; able to perform with set-up ?? V cues for hand hygiene standing at the sink with FWW and supervision ?? Max assist to brush hair due to tangles ?? Positioned pt in bedside chair in reclined position at end of session due to fatigue and pt agreeable to try being OOB Vitals: stable throughout Pain: 6/10 in bed; 9/10 after ambulating to the BR and perform several tasks; after several minutesreclined in the chair, pt reported pain 7/10-RN notified Education: Pt/family/caregiver education ongoing regarding: Transfers, Assistive device/technique, Adaptive equipment training, ADL, Safety, Precautions/Protocol, Functional Mobility, Activity pacing/Energy conservation, Recommendations and Discharge planning. Staff Communication: Patient status, treatment, and mobility recommendations discussed with nursing/other staff. ASSESSMENT: Pt pleasant and agreeable to get OOB and work with OT. Pt continues to report high painlevels with activity which is limiting her ability to participate in ADL's. Issued AE for lower body ADL's although pt experiencing too much pain to attempt to use the equipment. Pt will benefit fromVNA OT to further progress independence with ADL's using the adaptive equipment. Pt reports that her boyfriend Juan will assist her as needed. Pt will benefit from ongoing therapeutic interventions to achieve pt's and therapy goals Anticipated Discharge Disposition (OT): home with supervision, home with home health Equipment Recommendations: walker, front wheeled (has shower seat and commode in the basement) Daily schedule / Staff Recommendations: ?? Utilize upright chair position using bed features or transfer to recliner chair as appropriate with supervision using FWW, ambulate as tolerated with FWW and supervision ?? Encourage participation in ADL's by providing set up A on tray table and physical assist only asneeded ?? Reinforce spine precautions with all activity ?? Ambulate pt to the bathroom to use the toilet Occupational Therapy Goals: To be achieved by 01/13/22. 1. Pt will complete lower body ADL's with modified independence using adaptive equipment and techniques. 2. Pt will ambulate with FWW to the bathroom with modified independence. 3. Pt will perform toilet transfer, clothing management and toilet hygiene with modified independence. 4. Pt will perform shower transfer and shower with supervision using shower seat. Therapy Frequency (OT): 1-2 more times Total Minutes, Occupational Therapy: 40 (SCHM x 3 (9:25-10:05)) Pager: [phone] JAMIN RAY OT Occupational Therapy Rehabilitation Department * [place] MD - 01/07/2022 6:12 AM EST ORTHOPAEDIC SURGERY INPATIENT PROGRESS NOTE Patient Name: Bessie Levy Age: 36 y.o. Surgery/Issue: L4-5 decompression, PSIF Attending: Claudette Date of surgery: 01/05/2022 SUBJECTIVE / INTERVAL HISTORY: LUCINDA Has been tolerating po intake 650cc s/c x1, now voiding spontaneously small amounts with high PVRs PT cleared for home with home health HGB 11.4 consistent with acute blood loss anemia Denies CP/N/V/Numbness/tingling/SOB Pre-op Symptoms: Low back pain radiating in to her hips Pre-op symptoms currently present: Low back pain FOCUSED REVIEW OF SYSTEMS: as above. Active Hospital Problems Diagnosis ??? s/p L4-5 decompression, PSIF Dr. Wilkins Resolved Hospital Problems No resolved problems to display. Active Non-Hospital Problems Diagnosis ??? Seizure-like activity ??? Seizures ??? CIS - Entered not Verified ??? CIS - ASD, S/P repair ??? CIS - Asthma ??? CIS - Depression ??? CIS - Hx CHTN MEDICATIONS: ??? ipratropium-albuteroL (Duoneb) 0.5 mg-3 mg(2.5 mg base)/3 mL nebulizer solution 3 mL ??? cholecalciferol (Vitamin D3) tablet 2,000 Units ??? cloBAZam (Onfi) tablet 20 mg ??? sodium chloride 0.9 % (flush) (BD PosiFlush Normal Saline 0.9) flush 5 mL ??? sodium chloride 0.9 % (flush) (BD PosiFlush Normal Saline 0.9) flush 5-20 mL ??? lidocaine (Xylocaine) 1% (10 mg/mL) injection 3 mg ??? polyethylene glycoL (Miralax) packet 17 g ??? senna-docusate (Pericolace) 8.6-50 mg per tablet 2 tablet ??? sodium chloride 0.9% infusion ??? oxyCODONE (Roxicodone) tablet 5 mg OR oxyCODONE (Roxicodone) tablet 10 mg OR oxyCODONE (Roxicodone) tablet 15 mg ??? acetaminophen (Tylenol) tablet 1,000 mg ??? BUpivacaine-EPINEPHrine (Marcaine-epiNEPHrine) 0.25 %-1:200,000 injection ??? gelatin adsorbable 100 (Gelfoam) sponge ??? thrombin (Bovine) (Thrombinar) kit ??? vancomycin (Vancocin) injection ??? ARIPiprazole (Abilify) tablet 2 mg ??? citalopram (CeleXA) tablet 40 mg ??? cloBAZam (Onfi) tablet 10 mg ??? sodium chloride 0.9% 75 mL/hr (01/06/22 0648) OBJECTIVE: Temp: [36.7 ??C (98.1 ??F)-37.5 ??C (99.5 ??F)] Heart Rate: [81-89] Resp: [16-19] BP: (108-137)/(60-81) Intake/Output Summary (Last 24 hours) at 01/07/2022 0612 Last data filed at 01/07/2022 0600 Gross per 24 hour Intake 505 ml Output 3355 ml Net -2850 ml Body mass index is 41.19 kg/m??. Exam: General: NAD, awake/alert, responds to questions CV: RRR assessed peripherally Resp: Breathing comfortably on NC Back: Dressing c/d/i, no hematoma Motor: Segment Muscle Action R L L2 Iliopsoas Hip flexion 5 5 L3 Quadriceps Knee extension 5 5 L4,5 Hamstring Knee Flexion 5 5 L4 Tibialis anterior Dorsiflexion 5 5 L5 Extensor hallucis Great toe extension 5 5 S1 Gastrocnemius, FHL Plantar flexion 5 5 Sensory: Sensation (light touch) (0=absent, 1=impaired, 2=normal) Segment Location Right Left L1 upper inner thigh 2 2 L2 mid-ant thigh 2 2 L3 med femoral condyle 2 2 L4 medial mal 2 2 L5 dorsum foot, 3rd MT 2 2 S1 lat heal 2 2 S2 Popliteal fossa 2 2 Lab Results Component Value Date NA 134 (L) 01/06/2022 K 4.0 01/06/2022 CL 101 01/06/2022 CO2 21 (L) 01/06/2022 BUN 7 (L) 01/06/2022 CREATININE 0.69 (L) 01/06/2022 GLUCOSE 126 01/06/2022 CALCIUM 8.3 (L) 01/06/2022 Lab Results Component Value Date WBC 16.9 (H) 01/06/2022 HGB 11.4 (L) 01/06/2022 HCT 32.8 (L) 01/06/2022 MCV 87.5 01/06/2022 PLATELET 257 01/06/2022 Lab Results Component Value Date INR 0.9 11/08/2021 IMAGING: Post op AP and lateral XR lumbar spine demonstrate interval posterior instrumented fusion L4-5 ASSESSMENT / PLAN: Bessie Levy is a 36 y.o. female 2 Days Post-Op s/p L4-5 decompression, PSIF1/06/23 Dr. Wilkins. Progressing well. Cleared by PT for home with home health. Likely DC today after voiding. Activity: AAT, no bending, twisting, lifting >5 lbs Closure: Sutures (remove 21 days) Dressing: Mepilex x 7 days Drain: Pulled 01/06 Anticoagulation: mechanical, SCDs Antibiotics: periop ancef Consults: PT/OT Dispo:pending PT/OT Follow-up: 01/[address] Claudette Rivera MD 01/07/2022 Future Appointments Date Time Provider Department Center 01/16/2022 4:30 PM Tereso Mohan MD [facility] [place] 01/23/2022 1:00 PM Charly Wilkins MD [facility] [place] [facility] 02/01/2022 1:00 PM [facility] US ROOM 3 [facility] Rad 02/01/2022 2:20 PM Naveen Hodge MD [facility] * Morales Christianson RN - 01/06/2022 3:57 PM EDT Pt arrived to unit at 1530. A&O x4, lethargic, VSS. NS infusing at 75 mL/hr. Lungs clear, hearttones regular. Lumbar dressing CDI, pt reporting pain uncontrolled. PRN medications given. Bladder scanned at 1800 for 250, tried getting up to void- unsuccessful. Neurovasc check unremarkable, bilatBP/PT pulses palpable, extremities warm to touch, sensation intact. Pt able to rest between care, will continue to monitor. * Katia Roldan RN - 01/06/2022 3:05 PM EDT OUTCOME EVALUATION NOTE: OUTCOME SUMMARY: VSS on RA. A/O x4, lethargic. IVF infusing at 75. States pain is uncontrolled, PO oxy given, upon reassessment states pain is a 2. Omer removed at 1430, DTV at 1630. Pt. Up with PT/OT, 1 assist withlaura. SUELLEN drain removed this morning. Bed assignment on [facility]. Called report to Jolynn. Will continue to monitor and help patient reach d/c goals. PLAN MOVING FORWARD: Pain control Mobilize D/C planning INDIVIDUALIZED FALL PREVENTION: Patient is currently a high risk to Fall. Patient educated on bed/chair alarm, demonstrates proper use of call ignacio and verbalizes understanding of fall preventions implemented. Patient-specific fall risk factors per assessment: [current deficits]:Pain, Medications, Hospital Environment, Impaired Mobility, Recent Surgery Assistance [level of assistance required for transfers and ambulation]: 1 assist with walker. Supervision [direct monitoring required during toileting and ADLs]: 1 assist with ADL's Surveillance [continuous indirect monitoring]: Masimo, Purposeful Rounding, Nurse Knowledge Exchange at Bedside, Bed Alarm Set * Jamin Ray, OT - 01/06/2022 1:48 PM EDT Occupational Therapy Evaluation Patient profile: Bessie Levy is a 36 y.o. female admitted on 01/05/2022 for L4-5 decompression,PSIF on 01/05/22. Past Medical History: Diagnosis Date ??? s/p L4-5 decompression, PSIF Dr. Wilkins 01/04/2020 Added automatically from request for surgery [id number] Past Surgical History: Procedure Laterality Date ??? PRO INJECTION DX/THER SBST INTRLMNR LMBR/SAC W/IMG GDN Midline 05/18/2021 INJECTION, EPIDURAL, LUMBAR OR SACRAL (CAUDAL), WITH IMAGING GUIDANCE (WRVU 1.8) performed by Sarah Munguia MD at [facility] PAIN MGMT MSO Social History: Patient lives with her 2 daughters (ages 12 & 14) and her boyfriend Juan in [place], [place]. Theyhave a dog, 3 cats and a guinea pig. Pt works at the [email or web address] and is on medical leave. Juan currently is doing odd jobs for work and is able to be home to assist as needed. Home Setup: 2 level home with FOS to bedrooms on 2nd level. Can stay on the 1st level if needed andsleep on the couch. Has bathroom with tub/shower and grab bars on the 1st level. DME: crutches; shower chair; commode; may have a walker-not sure Baseline ADL/Mobility: Independent with ADL's and working at the [email or web address]. Juan does the grocery shopping, cooking, and IADL's. Pt enjoys watching tv, reading, coloring and playing with her daughters. Precautions/Special Considerations: AAT, no bending, twisting, lifting >5 lbs; log roll Subjective: Juan really can't stay another night. We don't have the money for a hotel again. I need to get home. Objective: Seen today for OT evaluation in collaboration with PT. Pt's boyfriend Juan present throughout. Cognitive Status/Behavior: ?? Behavior / Mood: drowsy ?? Alert and oriented to: person, place, time and situation ?? Follows commands: 100% of the time ?? Attention: drowsy which makes it more challenging to attend to tasks ?? Safety awareness: instructed in precautions; adhere with functional tasks ?? Pt wanting to be d/c today due to financial stressors (inability to afford hotel room; Juan needing to get back to work). Vision & Perception: ?? WNL/WFL Communication: WFL Range of motion, strength, coordination: Hand dominance: right Bilateral UEs are within functional limitations LE limitations: unable to reach feet and move LE's into figure 4 position Sensation: tingling in fingertips since February; some pain radiating down legs Activities of Daily Living: Self-feeding: independent Grooming: pt declined having hair brushed due to pain and wanting to get back into bed Dressing: dependent don/doff socks; will benefit from AE Bathing: discussed using shower seat for showering and need for supervision; will benefit from LH sponge Toileting: Transfer: NT; anticipate supervision with FWW Hygiene: NT due to having a omer; anticipate assistance needed for hygiene due to pain and drowsiness Functional Mobility: Supine to sit: HOB slightly elevated and instruction in technique, supervision log roll and then push up to sitting EOB Sit to stand: Supervision with FWW Ambulation: supervision with FWW ~ 55 ft; pt reports pain better when standing and walking Stand to sit: supervision with FWW Sit to supine: Min assist with LE's to get into sidelying, able to roll on to her back, assist to adjust position in bed x 2 Balance: Sitting balance: good EOB Standing balance:good with FWW Vitals: RA At Rest With Activity SpO2 96% 93% Heart Rate 81 NT Blood Pressure 117/66 121/81 Pain: 8/10 in bed and with mobility in low back and some pain radiating down legs Skin: incision covered with dressing; no drain Education: patient and boyfriend Juan have been educated on Role of occupational therapy/rehabilitation, Transfers, ADL, Positioning, Safety, Precautions/Protocol, Functional Mobility, Activity pacing/Energy conservation, Recommendations and Discharge planning and verbalize understanding and will be nefit from reinforcement. Patient status, treatment, and mobility recommendations discussed with nursing. Assessment: Pt has been seen for occupational therapy evaluation. Bessie Levy presents with the following performance skill deficits and client factors: increased pain, decreased activity tolerance, decreased flexibility/ROM, decreased strength, decreased sitting/standing balance, precautions/bracing and c ompromised mobility status. These performance deficits have led to activity limitations and participation restrictions in the following areas of occupation: dressing, bathing, grooming, toileting, transfers/mobility, home management, work, leisure, driving and community mobility. Pt is reporting significant pain when resting in bed and with mobility. Despite being drowsy, the pt is able to mobilize with supervision and v cues for technique. She requires assistance with all ADL's due to pain anddrowsiness. She will benefit from AE to facilitate independence with ADL's. Pt and her boyfriend Juan are expressing the desire for discharge today. She would benefit from another day for additional therapy and for pain management. Did share with the medical team that the pt desires to go home today. She is agreeable to VNA services including OT. Pt's boyfriend shares that he can be home as needed to assist the pt. Pt would benefit from further inpatient OT interventions to address performance deficits and maximize participation and independence with occupations of daily living. Equipment Recommendations: Equipment Needs Upon Discharge (OT): walker, front wheeled (has shower seat and commode in the basement) Anticipated Discharge Disposition (OT): home with home health, home with supervision Other Recommendations: ?? Utilize upright chair position using bed features or transfer to recliner chair as appropriate with supervision using FWW, ambulate as tolerated with FWW and supervision ?? Encourage participation in ADL's by providing set up A on tray table and physical assist only asneeded ?? Reinforce spine precautions with all activity ?? Ambulate pt to the bathroom to use the toilet Other Recommendations: No other consults recommended at this time Goals: To be achieved by 01/13/22. 1. Pt will complete lower body ADL's with modified independence using adaptive equipment and techniques. 2. Pt will ambulate with FWW to the bathroom with modified independence. 3. Pt will perform toilet transfer, clothing management and toilet hygiene with modified independence. 4. Pt will perform shower transfer and shower with supervision using shower seat. Plan: OT: Therapy Frequency (OT): 1-2 more times Planned OT interventions: Transfers, Assistive device/technique, Adaptive equipment training, ADL, Precautions/Protocol, Functional Mobility and Discharge planning. Total Minutes, Occupational Therapy: 30 (evaluation (13:48-14:18)) OT Evaluation Code Rationale: ?? Diagnosis & Pertinent Co-Morbidities affecting Plan of Care: see PMHx ?? Occupational Profile & Client History: Brief Expanded Extensive x ?? Assessment of Occupational Performance: 1-3 performance deficits 3-5 performance deficits 5 + performance deficits x ?? Clinical Decision Making: Low Moderate High x Clinical decision making of moderate complexity using standardized patient assessment instrument and measurable assessment of functional outcome. Pager: [phone] JAMIN RAY OT 01/06/2022 Occupational Therapy Rehabilitation Department * Christine Weston, PT - 01/06/2022 1:45 PM EDT Images from the original note were not included. Physical Therapy Evaluation Patient profile: Bessie Levy is a 36 y.o. female admitted on 01/05/2022 for L4-5 decompression,PSIF on 01/05/22. Patient with the following active problems: Past Medical History: Diagnosis Date ??? s/p L4-5 decompression, PSIF Dr. Wilkins 01/04/2020 Added automatically from request for surgery [id number] Past Surgical History: Procedure Laterality Date ??? PRO INJECTION DX/THER SBST INTRLMNR LMBR/SAC W/IMG GDN Midline 05/18/2021 INJECTION, EPIDURAL, LUMBAR OR SACRAL (CAUDAL), WITH IMAGING GUIDANCE (WRVU 1.8) performed by Sarah Munguia MD at [facility] PAIN MGMT MSO Social History: Patient lives with her 2 daughters (ages 12 & 14) and her boyfriend Juan in [place], [place]. Theyhave a dog, 3 cats and a guinea pig. Pt works at the [email or web address] and is on medical leave. Juan currently is doing odd jobs for work and is able to be home to assist as needed. Home Setup: 2 level home with FOS to bedrooms on 2nd level. Can stay on the 1st level if needed andsleep on the couch. Has bathroom with tub/shower and grab bars on the 1st level. DME: crutches; shower chair; commode; may have a walker-not sure Baseline ADL/Mobility: Independent with ADL's and working at the [email or web address]. Juan does the grocery shopping, cooking, and IADL's. Pt enjoys watching tv, reading, coloring and playing with her daughters. Precautions/Special Considerations: ??AAT, no bending, twisting, lifting >5 lbs; log roll Mobility and Positioning Recommendations: ?? Pt. to utilize RW and supervision ?? Please encourage up to chair for meal times as able. ?? Pt encouraged to ambulate frequently with staff, getting into the bathroom for toileting and walking out in the mcneil >/= 3 times daily as able. Subjective: ???We can't afford to stay another night Objective: Pt seen for PT evaluation today. Pain: 8/10 back pain, reports some radiation down BLE, but not much Vital Signs: SpO2 96% ora HR 86 BP 117/66 (79) supine BP 121/81 (94) EOB BP 135/90 (102) at end Mental Status: alert, oriented to person, place, and time, drowsy throughout, eyes frequently half closed, speaks slowly Vision: WFL Musculoskeletal: ROM: BLE WFL; post-op lumbar ROM limitations Strength: BLE WFL Sensation: baseline tingling of fingers (since February) Bed Mobility: Supine to Sit: Supervision with HOB elevated and cues for log-roll Sit to Supine: Min A to assist BLE into bed Able to sit EOB unassisted Transfers: Sit to Stand: supervision with RW Stand to Sit: Supervision with RW Gait: Distance: 55 ft Device used: RW Level of assist: supervision Gait mechanics: reciprocal, slow Stairs: Too drowsy Balance: Sitting Static: good Sitting Dynamic: fair Standing Static: fair with walker Standing Dynamic / Gait: fair with walker Education: Patient has been educated on Bed mobility, Transfers, Safety , Precautions/protocol, Equipment use, Gait , Activity pacing/Energy conservation, Home program, Role of therapy, Balance and Discharge planning and verbalizes understanding. Patient status, treatment, and mobility recommendations discussed with nursing. Assessment: Bessie Levy was seen today for physical therapy evaluation and presents with the following impairments: Pain, decreased activity tolerance, impaired balance, drowsiness, decreased postural stability, post-op precautions, and an overall compromised mobility status, all of which impact her current functional level. Patient presented to this PT evaluation as a&o, but was drowsy throughout with eyes half-closedfrequently. Mobility-paul she was able to ambulate in the PACU with a RW and close supervision; stair management deferred to tomorrow. Patient is eager to d/c to home as she reports her boyfriend cannot afford another night at a hotel(this was relayed to case management). Will see patient 1-3 more times to ensure adequate mobility for home; she will need a walker and will likely benefit from home services. The pt would benefit from skilled therapy services while in the hospital to maximize functional abilities. Discharge Recommendations: Based on the current findings, Anticipated Discharge Disposition (PT): home with home health when medically ready for hospital discharge. Consult Recommendations: No other consults recommended at this time. Equipment needs: Rolling walker Goals: To be achieved by 01/21/2022 1. Pt. to demonstrate knowledge of safety limitations and precautions and will appropriately request assistance for functional activities and to mobilize. 2. Pt to be independent with bed mobility using log-roll technique 3. Pt to transfer from sit to stand with RW and modified independence 4. Pt to negotiate a FOS with unilateral railing and supervision 5. Pt to ambulate 150 ft with RW and modified independence 6. Pt to verbalize understanding of her spinal precautions Plan: Therapy Frequency (PT): 1-3 more times for therapy including balance training, bed mobility training, gait training, neuromuscular re-education, patient/family education, postural re-education,stair training, strengthening, stretching and transfer training. Patient/family understand and agree with plan as stated above. 2017 PT Evaluation Code Rationale: ?? Diagnosis & Pertinent Co-Morbidities, personal factors, and present illness affecting Plan of Care: (see above); Additional personal factors or co- morbidities that impact plan: ?? Total # of Factors: 0 1-2 3+ x ?? Examination of body system impairments, functional limitations and behaviors, and/or participation restrictions. Addressing 1-2 elements Addressing 3 + elements x Addressing 4 + elements ?? Clinical presentation: See assessment above. Stable/Uncomplicated Evolving/Fluctuating Symptoms Unstable/Unpredictable x ?? Clinical decision making of low complexity based on pt's functional performance as outlined in this evaluation. Time IN / OUT: 8513-0700 Christine Weston DPT Board-Certified Clinical Specialist in Geriatric Physical Therapy Board-Certified Clinical Specialist in Neurologic Physical Therapy Inpatient/outpatient Rehab [facility] * Manolo Wiley MD - 01/06/2022 7:16 AM EDT ORTHOPAEDIC SURGERY INPATIENT PROGRESS NOTE Patient Name: Bessie Levy Age: 36 y.o. Surgery/Issue: L4-5 decompression, PSIF Attending: Claudette Date of surgery: 01/05/2022 SUBJECTIVE / INTERVAL HISTORY: LUCINDA Still in PACU Had difficulty with pain overnight per nursing Has been tolerating po intake Omer w/ CYU Has not been OOB yet HGB consistent with acute blood loss anemia Denies CP/N/V/Numbness/tingling, is complaining of some SOB which she says isnt new. Drain w/ 15 cc, pulled w/ 10 holes intact Pre-op Symptoms: Low back pain radiating in to her hips Pre-op symptoms currently present: Low back pain FOCUSED REVIEW OF SYSTEMS: as above. Active Hospital Problems Diagnosis ??? s/p L4-5 decompression, PSIF Dr. Wlikins Resolved Hospital Problems No resolved problems to display. Active Non-Hospital Problems Diagnosis ??? Seizure-like activity ??? Seizures ??? CIS - Entered not Verified ??? CIS - ASD, S/P repair ??? CIS - Asthma ??? CIS - Depression ??? CIS - Hx CHTN MEDICATIONS: ??? cholecalciferol (Vitamin D3) tablet 2,000 Units ??? albuteroL 90 mcg/actuation inhaler 1 puff ??? cloBAZam (Onfi) tablet 20 mg ??? sodium chloride 0.9 % (flush) (BD PosiFlush Normal Saline 0.9) flush 5 mL ??? sodium chloride 0.9 % (flush) (BD PosiFlush Normal Saline 0.9) flush 5-20 mL ??? lidocaine (Xylocaine) 1% (10 mg/mL) injection 3 mg ??? polyethylene glycoL (Miralax) packet 17 g ??? senna-docusate (Pericolace) 8.6-50 mg per tablet 2 tablet ??? sodium chloride 0.9% infusion ??? oxyCODONE (Roxicodone) tablet 5 mg OR oxyCODONE (Roxicodone) tablet 10 mg OR oxyCODONE (Roxicodone) tablet 15 mg ??? acetaminophen (Tylenol) tablet 1,000 mg ??? BUpivacaine-EPINEPHrine (Marcaine-epiNEPHrine) 0.25 %-1:200,000 injection ??? gelatin adsorbable 100 (Gelfoam) sponge ??? thrombin (Bovine) (Thrombinar) kit ??? vancomycin (Vancocin) injection ??? ARIPiprazole (Abilify) tablet 2 mg ??? citalopram (CeleXA) tablet 40 mg ??? cloBAZam (Onfi) tablet 10 mg ??? ceFAZolin (Ancef) 2 g vial attach to sodium chloride 0.9% 100 mL Mini-Bag Plus ??? sodium chloride 0.9% 75 mL/hr (01/06/22 0648) OBJECTIVE: Temp: [36.5 ??C (97.7 ??F)-38.2 ??C (100.7 ??F)] Heart Rate: [61-75] Resp: [11-18] BP: (110-129)/(59-76) Intake/Output Summary (Last 24 hours) at 01/06/2022 0716 Last data filed at 01/06/2022 0450 Gross per 24 hour Intake 1613.57 ml Output 2325 ml Net -711.43 ml Body mass index is 41.19 kg/m??. Drain output: 15 cc pulled 01/06/22 Exam: General: NAD, awake/alert, responds to questions CV: RRR assessed peripherally Resp: Breathing comfortably on NC Back: Dressing c/d/i, no hematoma Motor: Segment Muscle Action R L L2 Iliopsoas Hip flexion 5 5 L3 Quadriceps Knee extension 5 5 L4,5 Hamstring Knee Flexion 5 5 L4 Tibialis anterior Dorsiflexion 5 5 L5 Extensor hallucis Great toe extension 5 5 S1 Gastrocnemius, FHL Plantar flexion 5 5 Sensory: Sensation (light touch) (0=absent, 1=impaired, 2=normal) Segment Location Right Left L1 upper inner thigh 2 2 L2 mid-ant thigh 2 2 L3 med femoral condyle 2 2 L4 medial mal 2 2 L5 dorsum foot, 3rd MT 2 2 S1 lat heal 2 2 S2 Popliteal fossa 2 2 Lab Results Component Value Date NA 134 (L) 01/06/2022 K 4.0 01/06/2022 CL 101 01/06/2022 CO2 21 (L) 01/06/2022 BUN 7 (L) 01/06/2022 CREATININE 0.69 (L) 01/06/2022 GLUCOSE 126 01/06/2022 CALCIUM 8.3 (L) 01/06/2022 Lab Results Component Value Date WBC 16.9 (H) 01/06/2022 HGB 11.4 (L) 01/06/2022 HCT 32.8 (L) 01/06/2022 MCV 87.5 01/06/2022 PLATELET 257 01/06/2022 Lab Results Component Value Date INR 0.9 11/08/2021 IMAGING: Post op AP and lateral XR lumbar spine demonstrate interval posterior instrumented fusion L4-5 ASSESSMENT / PLAN: Bessie Levy is a 36 y.o. female 1 Day Post-Op s/p L4-5 decompression, PSIF 01/05/22 Dr. Wilkins. Progressing well. Plan to work with PT/OT today. Will order nebs. Drain pulled. Activity: AAT, no bending, twisting, lifting >5 lbs Closure: Sutures (remove 21 days) Dressing: Mepilex x 7 days Drain: Pulled 01/06 Anticoagulation: mechanical, SCDs Antibiotics: periop ancef Consults: PT/OT Dispo:pending PT/OT Follow-up: 01/[address] Claudette Wiley MD 01/06/2022 Future Appointments Date Time Provider Department Center 01/16/2022 4:30 PM Tereso Mohan MD [facility] [place] 01/23/2022 1:00 PM Charly Wilkins MD [facility] 02/01/2022 1:00 PM [facility] US ROOM 3 [facility] Rad 02/01/2022 2:20 PM Naveen Hodge MD [facility]L [facility] * Froylan Michaud RN - 01/05/2022 10:25 PM EDT [facility] Progress Note Gas/BM: Negative for flatus and BM Pain: c/o 12/11 back pain, PRN Oxycodone given w/ great relief NG/Nausea: Denies nausea Diet: Tolerating carb control diet Voiding: Omer in place, adequate UOP Mobility: Declines OOB, turns every 2 hours Central Line/Drain/VAC/Ostomy: N/A Skin/Incision: Incision to lumbar spine, dressing CDI; scattered scarring Tele: N/A Paperboard Boxes Estimator: N/A Progress Note: A/Ox4, T-max 100.7F, notified, down to 99.9 w/ scheduled Tylenol administration. Omer left in place d/t cristal escobar MD notified, report given to ARLETTE Resendez who confirmed she will follow up w/ day-shift team. Fall precautions in place, belongings within reach. Will continue to monitor for patient needs and safety. * Bandar Jolly MD - 01/05/2022 8:12 PM EDT ORTHOPAEDIC SURGERY INPATIENT PROGRESS NOTE Patient Name: Bessie Levy Age: 36 y.o. Surgery/Issue: L4-5 decompression, PSIF Attending: Claudette Date of surgery: 01/05/2022 SUBJECTIVE / INTERVAL HISTORY: Tolerating food. Endorses incisional back pain. No pain in legs. Accompanied by who is understandably frustrated about not yet having a room. Patient denies numbness/weakness, chest pain, shortness of breath, nausea, vomiting. Pre-op Symptoms: Low back pain radiating in to her hips Pre-op symptoms currently present: Low back pain FOCUSED REVIEW OF SYSTEMS: as above. Active Hospital Problems Diagnosis ??? Radiculopathy of lumbar region Resolved Hospital Problems No resolved problems to display. Active Non-Hospital Problems Diagnosis ??? Seizure-like activity ??? Seizures ??? CIS - Entered not Verified ??? CIS - ASD, S/P repair ??? CIS - Asthma ??? CIS - Depression ??? CIS - Hx CHTN MEDICATIONS: ??? sodium chloride 0.9% infusion ??? oxyCODONE (Roxicodone) tablet 5 mg OR oxyCODONE (Roxicodone) tablet 10 mg OR oxyCODONE (Roxicodone) tablet 15 mg ??? acetaminophen (Tylenol) tablet 1,000 mg ??? BUpivacaine-EPINEPHrine (Marcaine-epiNEPHrine) 0.25 %-1:200,000 injection ??? gelatin adsorbable 100 (Gelfoam) sponge ??? thrombin (Bovine) (Thrombinar) kit ??? vancomycin (Vancocin) injection ??? ceFAZolin (Ancef) 2 g vial attach to sodium chloride 0.9% 100 mL Mini-Bag Plus ??? [START ON 01/06/2022] ceFAZolin (Ancef) 2 g vial attach to sodium chloride 0.9% 100 mL Mini-Bag Plus ??? sodium chloride 0.9% 75 mL/hr (01/05/22 1500) OBJECTIVE: Temp: [36.5 ??C (97.7 ??F)-37.2 ??C (99 ??F)] Heart Rate: [61-75] Resp: [-18] BP: (110-129)/(59-76) Intake/Output Summary (Last 24 hours) at 01/05/20222011 Last data filed at 01/05/2022 1900 Gross per 24 hour Intake 1613.57 ml Output 860 ml Net 753.57 ml Body mass index is 41.19 kg/m??. Drain output: 50 cc Exam: General: NAD, awake/alert, responds to questions CV: RRR assessed peripherally Resp: Breathing comfortably on NC Back: Dressing c/d/i, no hematoma Motor: Segment Muscle Action R L L2 Iliopsoas Hip flexion 5 5 L3 Quadriceps Knee extension 5 5 L4,5 Hamstring Knee Flexion 5 5 L4 Tibialis anterior Dorsiflexion 5 5 L5 Extensor hallucis Great toe extension 5 5 S1 Gastrocnemius, FHL Plantar flexion 5 5 Sensory: Sensation (light touch) (0=absent, 1=impaired, 2=normal) Segment Location Right Left L1 upper inner thigh 2 2 L2 mid-ant thigh 2 2 L3 med femoral condyle 2 2 L4 medial mal 2 2 L5 dorsum foot, 3rd MT 2 2 S1 lat heal 2 2 S2 Popliteal fossa 2 2 Lab Results Component Value Date NA 137 11/23/2021 K 4.1 11/23/2021 CL 100 11/23/2021 CO2 23 11/23/2021 BUN 14 11/23/2021 CREATININE 0.76 11/23/2021 GLUCOSE 78 11/23/2021 CALCIUM 9.2 11/23/2021 Lab Results Component Value Date WBC 7.0 11/23/2021 HGB 12.8 11/23/2021 HCT 36.6 11/23/2021 MCV 88.4 11/23/2021 PLATELET 234 11/23/2021 Lab Results Component Value Date INR 0.9 11/08/2021 IMAGING: Post op AP and lateral XR lumbar spine demonstrate interval posterior instrumented fusion L4-5 ASSESSMENT / PLAN: Bessie Levy is a 36 y.o. female Day of Surgery s/p L4-5 decompression, PSIF103/07/21 Dr. Wilkins. Progressing well. Plan to work with PT/OT tomorrow. Activity: AAT, no bending, twisting, lifting >5 lbs Closure: Sutures (remove 21 days) Dressing: Mepilex x 7 days Drain: 1 SUELLEN with 10 holes - out when < 70 cc/ shift Anticoagulation: mechanical, SCDs Antibiotics: periop ancef Consults: PT/OT Dispo:pending PT/OT Follow-up: 01/[address] Claudette Jolly MD 01/05/2022 Future Appointments Date Time Provider Department Center 01/16/2022 4:30 PM Tereso Mohan MD [facility] [place] 01/23/2022 1:00 PM Charly Wilkins MD [facility] [place] Sp [facility] 02/01/2022 1:00 PM [facility] RO[facility] 3 [facility] Rad 02/01/2022 2:20 PM Naveen Hodge MD [facility] 5L [facility] * Justine Bhatia, RN - 01/05/2022 5:18 PM EDT Pt waking, states pain 'not too bad'. To po sips. To xray. 193 Pt ate dinner. States she feels well. Report to Froylan CHONG. documented in this encounter H&P Notes * Bandar Jolly MD - 01/05/2022 7:38 AM EDT PRE-OPERATIVE HISTORY AND PHYSICAL for ADMISSION, OBSERVATION OR PROCEDURE Date of : 1985 Age: 36 y.o. PCP: Comfort Urban APRN Presenting Diagnosis/Chief Complaint: Low back pain radiating into bilateral legs, worse with walking. History of Present Illness: Bessie Levy is a 36 y.o. female who presents for pre-operative examination. Please see PCP's note for full details of the patient's specific problem. Patient denies any recent change in health, no recent illness. No CP, SOB, fevers, chills. Cleared by neurology and cardiology. PMHx: Patient Active Problem List Diagnosis Code ??? CIS - ASD, S/P repair ??? CIS - Asthma ??? CIS - Depression ??? CIS - Entered not Verified ??? CIS - Hx CHTN ??? Seizures R56.9 ??? Radiculopathy of lumbar region M54.16 ??? Seizure-like activity R56.9 No past medical history on file. Past Surgical History: Procedure Laterality Date ??? PRO INJECTION DX/THER SBST INTRLMNR LMBR/SAC W/IMG GDN Midline 05/18/2021 INJECTION, EPIDURAL, LUMBAR OR SACRAL (CAUDAL), WITH IMAGING GUIDANCE (WRVU 1.8) performed by Sarah Munguia MD at [facility] Home Medications: Medications Prior to Admission Medication Sig Dispense Refill Last Dose ??? celecoxib (CeleBREX) 200 mg Capsule Take 200 mg by mouth 2 times daily. Past Month at Unknown time ??? cloBAZam (Onfi) 10 mg Tablet Take 1 pill in AM and 2 pills in PM 90 tablet 5 01/05/2022 at Unknown time ??? cholecalciferol, Vitamin D3, 50 mcg (2,000 unit) Tablet Take 1 tablet by mouth daily. 90 tablet3 Past Month at Unknown time ??? ARIPiprazole (ABILIFY) 2 mg Tablet Take 2 mg by mouth daily. 0 01/05/2022 at Unknown time ??? citalopram (CELEXA) 20 mg Tablet Take 40 mg by mouth daily. 0 01/05/2022 at Unknown time ??? lidocaine (Lidoderm) 5% Adhesive Patch, Medicated Apply 1 patch onto the skin daily. (leave on for 12 hours and remove for 12 hours) 30 patch 0 ??? furosemide (Lasix) 20 mg Tablet Take 60 mg by mouth as needed. Unknown at Unknown time ??? ProAir HFA 90 mcg/actuation HFA Aerosol Inhaler INL 1 TO 2 PFS PO Q 4 TO 6 H PRN More than a month at Unknown time ??? UNABLE TO FIND Take by mouth as needed. Med Name: CBD oil Allergies: No Known Allergies Family History: Non contributory Family History Problem Relation Age of Onset ??? Uterine Cancer Neg Hx ??? Ovarian Cancer Neg Hx ??? Colorectal Cancer Neg Hx ??? Breast Cancer Neg Hx Review of Systems: as per HPI Physical Exam: VITALS: Temperature Temp: 36.5 ??C (97.7 ??F) Heart Rate Heart Rate: 64 Blood Pressure BP: 129/76 Respiratory Rate Resp: 16 SpO2 SpO2: 98 % No intake/output data recorded. General: alert, appears stated age and cooperative Pulmonary: equal, clear breath sounds bilaterally and no crepitus Cardiovascular: S1S2 present 5/5 bilateral LE SILT in bilateral LE Assessment and Plan: 36 y.o. female with the above problem, plan to proceed to OR with Dr. Wilkins for L4-5 decompression, PSIF, possible TLIF. Bandar Jolly MD documented in this encounter Miscellaneous Notes * Care Management Discharge - Alla Shane RN - 01/08/2022 11:18 AM EST CARE MANAGEMENT FINAL DISCHARGE NOTE Chart reviewed, care reviewed with primary team and at interdisciplinary rounds. Patient is medically ready for discharge to home with homecare and a walker. Needs for Transition of Care: Plan for discharge is: Home w/o Services Outpatient Agency/Support Group Needs: None Agency Referrals & Follow-up Care: Contact information for follow-up Home Health & Hospice, [address] [place] [address] Transportation: family or friend will provide Home Environment: Others in the home: child(jeremie), minor, significant other. Current Living Arrangements: home/apartment/condo. Accessibility Concerns:no concerns. Current Functional Ability: Assistive Person and Equipment DME used at home: none DME Needed at Discharge: walker Patient is insured through: Primary Insurance: [place] Payor: [place] / Plan: [place] PRIMARY CARE PLUS / Product Type: *No Product type* / Secondary Insurance: N/A Prescription Coverage: Yes This plan was formulated with input from patient, and team. All are in agreement with plan. Alla Shane RN, BSN Case Management * Care Management - Alla Shane RN - 01/08/2022 10:11 AM EST The Patient has been provided a list of Home Health Agencies/DME vendors which serve their preferred geographic area. A letter describing our affiliations was reviewed with them and they were educated about their right to choose where referrals are placed. Provided patient with [facility] Star Quality Rating for Home care hand out. Patient requests referral to : [facility] [address] [place] [address] Ortho Care Located @ [facility] [place], [place] Expected date of discharge: 01/08. Referral routed to the Manager Test for matching with agency/vendor and to provide any required information. * Plan of Care - Karyn Ayala RN - 01/07/2022 5:21 PM EST Pt alert and oriented x4. VSS on RA. Pain managed with scheduled tylenol and PRN oxycodone. Pt complaining of bilateral LE muscle spasms, MD made aware and PRN flexiril given with good effect. Pt straight cath'd 2x time for bladder scan >400mL and complaints of pelvic discomfort. Pt up to BR to attempt to void x4 as SBA with FWW. Other PVRs consistently low. Pt worked with OT, got up to chair f or approx. 15 minutes, then back to bed to rest. Plan for PT to see pt tomorrow and DC home. * Plan of Care - Kiera Simons RN - 01/07/2022 6:14 AM ESTSummary: End of shift report VSS on RA. Urinary rentention 2x straight cath per orders. > 600mls each time as shown on bladder scan. Patient pleasant and compliable with all cares. A/O x 4. Palpable pulses. Lungs clear. Normal heart sounds. Pain controlled with scheduled and PRN meds.Bed locked and lowered, call light in place, purposeful hourly rounding continues. * Initial Assessments - Katia Alexander RN - 01/06/2022 10:16 AM EDT Office of Care Management Initial Assessment Katia Alexander RN reviewed record and discussed patient with Care Team. Source of Information: Team, bedside nurse, medical record, and Patient Introduced self/reviewed role; services accepted. Patient found in bed and agreeable to assessment. Patient lives with her 2 children and boyfriend. Patient is independent at baseline and states she feels has adequate support for discharge. Patient stated she has brought her crutches and she may have her grandparents walker at home if needed. Reason for Hospitalization: L4-5 decompression, PSIF. Covid Vaccination Status: 1st & 2nd dose (moderna) Last COVID test: Lab Results Component Value Date COVID19 Not Detected 07/07/2021 [id number] Not Detected 07/04/2021 Past medical History: Past Medical History: Diagnosis Date ??? s/p L4-5 decompression, PSIF Dr. Wilkins 01/04/2020 Added automatically from request for surgery [id number] Hospitalizations Within the Past 30 Days: no previous admission in last 30 days Current Decision-Making Capacity: Self If AD's have not been completed the following surrogate would be surrogate decision maker per [place] surrogate decision making law. (Only good for 180 days) Any patient receiving care in [place] must abide by [place] law. The hierarchy for surrogate decision making is: (a) Patient???s spouse, or civil union partner or common law spouse unless there is a divorce proceeding, separation [...] (i) The agent with financial power of state attorney or a conservator appointed in accordance with RSA 464-A. (j) The guardian of the patient???s estate. Advance Care Planning: Attempt Cardiopulmonary Resuscitation - Inpatient <no information> -Advanced Directive: No, declines Current Coping/Education/Information Needs: denies Current Functional Ability: unable to assess (needs to mobilize post-op) Functional Status Prior to Admission: Prior ADLs & IADLs: Independent with all ADLs & IADLs Home Environment: Others in the home: child(jeremie), minor, significant other. Current Living Arrangements: home/apartment/condo. Accessibility Concerns:no concerns. Resource / Environmental Concerns: Resource/Environmental Concerns: none Current DME: none Home Address confirmed as: [facility] [address] [address] Social & Family Supports: All names listed below confirmed with patient as current and correct Extended Emergency Contact Information Primary Emergency Contact: Minoo Forbes Mobile Relation: Mother Secondary Emergency Contact: Juan Almazan Mobile Relation: Friend Current Care Provided by: self Provides Primary Care For: child(jeremie) Caregiver if needed: significant other Quality of Family relationships: involved, supportive Community Resources being provided currently: none Behavioral Health History: Substance Use/Abuse listed: Social History Tobacco Use Smoking Status Never Smoker Smokeless Tobacco Never Used Tobacco Comment vapes but not nicotine 0 No problems reported 1-2 Low level 3-5 Moderate level 6-8 Substantial level 9- 10 Severe level 0 to 7 points: Low risk 8 to 15 points: Medium risk 16 to 19 points: High risk 20 to 40 points: Addiction likely Other Pertinent/Service Specific Information: denies Health/Prescription Coverage: Primary Insurance: [place] Pay[place] / Plan[place] PRIMARY CARE PL[place] / Product Type: *No Product type* / Secondary Insurance: N/A ; Prescription Coverage: Yes Preferred Pharmacy: Status: Patient is a : No Primary Care Provider: Comfort Urban APRN [phone] Patient/Caregiver Goals of Treatment: d/c home with family Potential Needs for Transition of Care: none Agency Referrals: Patient requests referral to : [facility] [address] [place] [id number] Expected date of discharge: 01/07/22. Referral routed to the Manager Test for matching with agency/vendor and to provide any required information. Transportation: no concerns Transportation Anticipated: family or friend will provide Concerns to be Addressed: no discharge needs identified Assessment: Patient is admitted to orthopedic surgery service for L4-5 decompression, PSIF Plan:Plan is to d/c home w/o services. Patient will need to ambulate with PT/OT to address home needs. Patient would prefer outpatient PT if outpatient PT is recommended. Patient has crutches at the bedside and is unclear if she has a walker at home. Patient plans to discharge home via private care. [id number] agreed to receive services from [facility] when discussing during I/A. Home VNA placed per PT recs. A member of the Care Management team will continue to monitor progress, follow for continuity of care and assist with transition of care planning. Katia Alexander RN, Pager-[phone] * Brief Op Note - Bandar Jolly MD - 01/05/2022 2:27 PM EDT Brief Operative Note Patient Name: Bessie Levy : [id number] MR#: [id number] Case Date: 01/05/2022 Surgeon: Surgeon(s) and Role: * Charly Wilkins MD - Primary * Bandar Jolly MD - Resident Preoperative diagnosis: Lumbar stenosis L4-5 with neurogenic medication Postoperative diagnosis: Lumbar stenosis L4-5 with neurogenic medication Procedure(s) (LRB): ARTHRODESIS, LUMBAR SPINE, SINGLE INTERSPACE (WRVU 23.53) (Bilateral) LAMINECTOMY, FACETECTOMY & FORAMINOTOMY,LUMBAR, ONE LEVEL (WRVU 15.37) (Bilateral) ARTHRODESIS, COMB. POST OR POSTEROLAT W/LAMI &/OR DISC SINGLE INTERSPACE; LUMBAR (WRVU 27.75) (Bilateral) POSTERIOR SPINAL NON-SEGMENTAL INST.(ONE SPACE) (WRVU 12.52) (Bilateral) AUTOGRAFT FOR SPINE SURGERY ONLY, SAME INCISION (WRVU *) (Bilateral) ALLOGRAFT FOR SPINE SURGERY ONLY; MORSELIZED (WRVU *) (Bilateral) MODIFIER SOLERA MODULAR MEDTRONIC (Bilateral) MODIFIER,O-ARM, MOR (Bilateral) MODIFIER,STEALTH 3 W/O KINEVO,CRANI/SPINE ONLY (Bilateral) STEREOTACTIC COMPUTER-ASSTD NAVIGATIONAL SPINAL (WRVU 3.75) (Bilateral) MODIFIER L4 (Bilateral) MODIFIER L5 (Bilateral) Anesthesia: General Findings: 1. L4-5 s/p decompression, PSIF. Unable to place a TLIF cage due to location of the exiting nerve root Complications: None Estimated Blood Loss: 50 mL* No values recorded between 01/05/2022 9:52 AM and 01/05/2022 2:10 PM * Specimens removed during surgery: None Fluids: Intraprocedure Crystalloid Total None PRBCs: none (See Anesthesia Record/Report for Other Blood Products) Urine Output: 210 mL Drains: 1 SUELLEN with 10 holes Disposition: awakened from anesthesia, extubated and taken to the recovery room in a stable condition, having suffered no apparent untoward event. Condition: doing well without problems (Please see the Surgical Encounter Summary for any Implant and Specimen details pertinent to this patient.) Surgical Infection Prevention Bundle Used? N/A * Op Note - Charly Wilkins MD - 01/05/2022 9:52 AM EDT [facility] Operative Note Patient Name: Bessie Levy : [id number] MR#: [id number] Case Date: 01/05/2022 Surgeon: Surgeon(s) and Role: * Charly Wilkins MD - Primary * Bandar Jolly MD - Resident Preoperative diagnosis: Lumbar stenosis L4-5 with neurogenic medication Postoperative diagnosis: Lumbar stenosis L4-5 with neurogenic medication Anesthesia: General Estimated Blood Loss: 50 mL Specimens removed during surgery: None Drains: Medium hemovac 10 holes Surgical Closure: Primary Closure - skin incision is completely closed without any wires, melvin, drains or other devices Disposition: awakened from anesthesia, extubated and taken to the recovery room in a stable condition, having suffered no apparent untoward event. Condition: doing well without problems (Please see the Surgical Encounter Summary for any Implant and Specimen details pertinent to this patient.) HPI/Surgical Indications: Chief complaint of significant low back pain into her hips. Walking is significant worse than sitting. It goes into her back and her lateral hips. Diagnosis: 1. 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 7 mm listhesis on flexion. Correction to 4 mm on extension. 2. Bilateral L5 radiculopathy as well as back pain. 3. Obesity BMI 41 4. Medical issues including cardiology, neurology. Hemoglobin A1c 5.2 Patient saw cardiology on 12/01/2021 with no further work-up recommended. Patient saw neurology on 11/29/2021 EEG normal. No change other than no longer taking Depakote. Primary care provider wrote a note on 11/10/2021 and did not recommend any more follow-up. Patient seen by Dr. Swenson and recommended the similar consults which were obtained. Proposed procedure: Posterior L4-5 lumbar decompression and fusion with TLIF autograft allograft. Medical necessity: Patient has failed conservative treatment. She has been in the emergency room twice. She has had multiple anti-inflammatories as well as narcotics without significant provement. She has been referred for physical therapy but has been unable to take part secondary to her pain and difficulty mobilization. Walking tolerance is less than [address] and MRI shows significant L4-5 findings with incompetent facet joints with instability. Flexion-extension films show a 7 mm laterallisthesis at L4-5. Deformity of the left facet joint. ?? Plan: Posterior L4-5 lumbar decompression and fusion with TLIF autograft allograft. Procedure Description: PROCEDURE: -Bilateral laminectomy, medial facetectomy, foraminotomy L4-5. -Posterior instrumentation L4-5. -Posterolateral arthrodesis L4-5. -Application of local autograft. -Application of allograft morselized -Intraoperative CT scan / Navigation Instrumentation: Enel OGK-5 Modular X DESCRIPTION OF PROCEDURE: The patient was brought back to the operating theater. General endotracheal intubation was accomplished. The patient was placed prone on the Theodore spine table. All bony prominences were carefully padded. The patient was prepped and draped sterilely in the usual fashion. A timeout was performed and confirmed Radiographs were used for incisional planning. An incision was made centered on the appropriate spinous process and the incision was taken down to the fascia. Irrigation was utilized. The fascia was incised bilaterally. The paraspinal muscles were retracted to the lateral edge of the pars. Facets were maintained laterally and for an appropriate level. Posterior segmental instrumentation at L4-5: Reference frame was applied to L5. Intraoperative CT was obtained. Intraoperative navigation as well as preoperative imaging, were utilized. A high-speed cortical bur or awl was utilized to make a cortical breach inline with the pedicle. The gearshift advanced down the pedicle. A ball-tip probe documented cortical integrity. The screw hole was tapped and a screw was inserted. Screws were checked on imaging and found to be in good condition. Screws were placed bilaterally at L4-5. Francesco was placed and locked into position. Bilateral laminectomy and medial facetectomy and foraminotomy of L4-5: BrendaksellLela's and a high-speed cortical bur was utilized to take down the inferior aspect of L4 on the right. Total facetectomy on the right to prepare for TLIF. The exiting nerve root could not be mobilzed. There was no reasonable path to place a cage even with distraction. No evidence CSF leak. FINDINGS: c/w disease. Markedly abnormal facet morphology. Posterolateral arthrodesis L4-5: The high-speed cortical drill was utilized to decorticate the superior aspect of the lamina. Below the facet joint in the lateral aspect of the pars and the lateral aspect of the joint and medial aspect of the transverse processes. Copious amounts of autograft which were taken from the decompression which was morselized was combined with allograft. This was packed densely into the trough. This was done across the L4-5. CLOSURE: Copious irrigation was utilized throughout the case. No evidence of CSF leak. A drain was placed deep in the fascia. The fascia was closed in a watertight fashion. Irrigation was again utilized. The wound was closed in layers. Vancomycin was utilized. Skin: Nylons The patient was extubated and taken to the PACU in good condition. Attestation: Case Date: 01/05/2022 I was present and I participated during the entire procedure (does not need to include opening and closing). Charly Wilkins MD 01/08/2022 documented in this encounter Plan of Treatment Upcoming Encounters Date Type Department Care Team (Late st Contact Info) Description 12/24/2023 10:00 AM EDT Office Visit [place] [address] Tereso Mohan MD [facility] [place] [address] 12/24/2023 10:30 AM EDT Appointment XRay at [address] [place] [phone] Shelby Aaron [facility] [place] [address] 12/24/2023 11:30 AM EDT Office Visit [facility] [place] [phone] Shelby Aaron, [facility] [address] Scheduled Referrals Name Type Priority Associated Diagnoses Orde r Schedule Referral to Home Health Outpatient Referral Routine s/p L4-5 decompression, PSIF Dr. Wilkins Ordered: 01/08/2022 documented as of this encounter Procedures Procedure Name Priority Date/Time Associated Diagnosis Comments HEMOGRAM Routine 01/08/2022 8:58 AM EST DIFFERENTIAL, AUTOMATED Routine 01/09/20 8:58 AM EST HC CBC,PLT & AUTO DIFF Routine 8:58 AM EST BASIC METABOLIC PANEL Routine 01/08/2022 8:58 AM EST SCAN, PERIPHERAL BLOOD Routine 5:10 AM EDT HEMOGRAM Routine 01/06/2022 5:10 AM EDT DIFFERENTIAL, AUTOMATED Routine 01/07/20 5:10 AM EDT HC CBC,PLT & AUTO DIFF Routine 5:10 AM EDT BASIC METABOLIC PANEL Routine 01/06/2022 5:10 AM EDT XR LUMBAR SPINE 2 OR 3 VIEWS Routine 01/05/2022 5:35 PM EDT XR O-ARM NO RAD - OR USE Routine 01/05/2022 3:35 PM EDT XR LUMBAR SPINE 1 VIEW Routine 9:50 AM EDT MODIFIER L5 Yes 01/05/2022 9:06 AM EDT Radiculopathy of lumbar region Congenital anomalies of spine Spondylolisthesis at L4-L5 level MODIFIER L4 Yes 01/05/2022 9:06 AM EDT Radiculopathy of lumbar region Congenital anomalies of spine Spondylolisthesis at L4-L5 level Sterotactic Cptr Asstd Px Spinal ([id number]) Yes 01/05/2022 9:06 AM EDT Radiculopathy of lumbar region Congenital anomalies of spine Spondylolisthesis at L4-L5 level MODIFIER,STEALTH 3 W/O KINEVO,CRANI/SPINE ONLY Yes 01/05/2022 9:06 AM EDT Radiculopathy of lumbar region Congenital anomalies of spine Spondylolisthesis at L4-L5 level MODIFIER, O-ARM, MOR Yes 01/05/2022 9:06 AM EDT Radiculopathy of lumbar region Congenital anomalies of spine Spondylolisthesis at L4-L5 level MODIFIER SOLERA MODULAR MEDTRONIC Yes 01/05/2022 9:06 AM EDT Radiculopathy of lumbar region Congenital anomalies of spine Spondylolisthesis at L4-L5 level Allograft For Spine Surgery Only Morselized () Yes 01/05/2022 9:06 AM EDT Radiculopathy of lumbar region Congenital anomalies of spine Spondylolisthesis at L4-L5 level Autograft Spine Surgery Local From Same Incision ([id number]) Yes 01/05/2022 9:06 AM EDT Radiculopathy of lumbar region Congenital anomalies of spine Spondylolisthesis at L4-L5 level Posterior Non-Segmental Instrumentation ([id number]) Yes 01/05/2022 9:06 AM EDT Radiculopathy of lumbar region Congenital anomalies of spine Spondylolisthesis at L4-L5 level Arthrodesis Combined Technique 1 Interspace Lumbar ([id number]) Yes 01/05/2022 9:06 AM EDT Radiculopathy of lumbar region Congenital anomalies of spine Spondylolisthesis at L4-L5 level Laminec/Facetect/Forami n, Lumbar 1 Seg ([id number]) Yes 01/05/2022 9:06 AM EDT Radiculopathy of lumbar region Congenital anomalies of spine Spondylolisthesis at L4-L5 level Arthrodesis Posterior/Pstlat Technique 1 Interspace Lumbar ([id number]) Yes 01/05/2022 9:06 AM EDT Radiculopathy of lumbar region Congenital anomalies of spine Spondylolisthesis at L4-L5 level ARTHRODESIS, COMB. POST OR POSTEROLAT W/LAMI &/OR DISC SINGLE; LUMBAR Routine 01/05/2022 7:24 AM EDT Radiculopathy of lumbar region Congenital anomalies of spine Spondylolisthesis at L4-L5 level STEROTACTIC COMPUTER-ASSTD NAVIGATIONAL SPINAL Routine 01/05/2022 7:24 AM EDT Radiculopathy of lumbar region Congenital anomalies of spine Spondylolisthesis at L4-L5 level LAMINECTOMY, FACETECTOMY & FORAMINOTOMY,LUMAR, ONE LEVEL Routine 01/05/2022 7:24 AM EDT Radiculopathy of lumbar region Congenital anomalies of spine Spondylolisthesis at L4-L5 level POSTERIOR SPINAL NON-SEGMENTAL INST.(ONE SPACE) Routine 01/05/2022 7:24 AM EDT Radiculopathy of lumbar region Congenital anomalies of spine Spondylolisthesis at L4-L5 level ARTHRODESIS,LUMBAR SPINE,SINGLE LEVEL Routine 01/05/2022 7:24 AM EDT Radiculopathy of lumbar region Congenital anomalies of spine Spondylolisthesis at L4-L5 level AUTOGRAFT FOR SPINE SURGERY ONLY,SAME INCISION Routine 01/05/2022 7:24 AM EDT Radiculopathy of lumbar region Congenital anomalies of spine Spondylolisthesis at L4-L5 level ALLOGRAFT FOR SPINE SURGERY ONLY;MORSELIZED Routine 01/05/2022 7:24 AM EDT Radiculopathy of lumbar region Congenital anomalies of spine Spondylolisthesis at L4-L5 level documented in this encounter Results * (ABNORMAL) Differential, Automated (01/08/2022 8:58 AM EST) Neutrophil % 73.0 % [facility] Neutrophil Absolute 9.01(H) 1.70 - 6.10 x10(3)/mc L [facility] Lymph % 16.3 % [facility] Lymphocytes Abs 2.0 0.9 - 3.2 x10(3)/ L [facility] Monocyte % 7.7 % [facility] Monocyte Abs 1.0(H) 0.3 - 0.9 x10(3)/ L [facility] Eos % 2.0 % [facility] Eosinophils Abs 0.2 0.0 - 0.4 x10(3)/[facility] Basophil % 0.4 % [facility] Baso Absolute 0.0 0.0 - 0.1 x10(3)/ L [facility] Immature Gran % 0.60 % [facility] Comment: Immature granulocytes(IG's)percentage and absolute count will include metamyelocytes, myelocytes, and promyelocytes. Blood smears from CBCs yielding IG's will be scanned manually for concordance. If this scan disagrees with the automated IG or if promyelocytes are noted, a manual differential will be performed. Immature Gran Absolute 0.08(H) 0.00 - 0.04 x10(3)/mc L [facility] Blood 01/08/2022 8:58 AM EST 01/08/2022 9:30 AM EST Narrative Resulting Agency Comment Spec In Lab Bandar Jolly MD HEMATOLOGY ORDERABLE S [facility] [place] [address] * (ABNORMAL) Hemogram (01/08/2022 8:58 AM EST) Pathologist [facility] White Blood Cell 12.4(H) 4.0 - 9.5 x10(3)/[facility] Red Blood Cell 3.43(L) 4.00 - 5.21 x10(6)/mc L [facility] Hemoglobin 10.3(L) 11.7 - 15.5 g/dL [facility] Hematocrit 30.5(L) 35.7 - 45.8 % [facility] Mean Cell Volume 88.9 82.6 - 94.4 fL [facility] Mean Cell Hemoglobin 30.0 27.1 - 32.0 pg [facility] Mean Cell Hemoglobin Concentration 33.8 31.7 - 35.0 g/dL [facility] Platelet 220 145 - 357 x10(3)/[facility] RDW Standard Deviation 38.9 37.0 - 46.0 [facility] RDW coefficient of variation 11.9 11.5 - 14.1 % [facility] Mean Platelet Volume 9.4 7.6 - 12.9 fL [facility] NRBC% auto 0.0 % [facility] NRBC Absolute 0.000 0.000 - 0.000 x10(3)/[facility] Blood 01/08/2022 8:58 AM EST 01/08/2022 9:30 AM EST Narrative Resulting Agency Comment Spec In Lab Bandar Jolly MD HEMATOLOGY ORDERABLE S [facility] [place] [address] * (ABNORMAL) Basic Metabolic Panel (non-fasting) (01/08/2022 8:58 AM EST) [facility] Glucose 158 65 - 199 mg/dL [facility] Comment:Diabetes: >=200 mg/d L plus symptoms Blood Urea Nitrogen 8 8 - 18 mg/dL [facility] Creatinine 0.55(L) 0.70 - 1.20 mg/dL [facility] Sodium 136 135 - 145 mmol/L [facility] Potassium 3.4(L) 3.5 - 5.0 mmol/L [facility] Comment: Please note: ??Patients with WBC >100,000 may have falsely elevated Potassium levels. ??For accurate Potassium quantification in these patients send serum separator tube (gold top) for subsequent determinations. ??Contact the Clinical Chemistry Laboratory if there are any questions. Chloride 104 98 - 107 mmol/L [facility] Carbon Dioxide 22 22 - 31 mmol/L [facility] Anion Gap 10 5 - 15 mmol/L [facility] Calcium 8.6 8.5 - 10.5 mg/dL [facility] Est Glomerular Filtration Rate 120 >=60 mL/min/1. 73 m?? [facility] Comment: This patient's estimated GFR [...] and symptoms in addition to eGFR. Blood 01/08/2022 8:58 AM EST 01/08/2022 9:30 AM EST Narrative Resulting Agency Comment Spec In Lab Charly Wilkins MD CHEMISTRY ORDERABLES [facility] [place] [address] * Scan, Peripheral Blood (01/06/2022 5:10 AM EDT) Plat estimate Normal [facility] RBC Morphology Normal [facility] Vacuolated Neut Present [facility] Blood 01/06/2022 5:10 AM EDT 01/06/2022 5:18 AM EDT Narrative Resulting Agency Comment Spec In Lab Bandar Jolly MD HEMATOLOGY ORDERABLE S [facility] [place] [address] * (ABNORMAL) Differential, Automated (01/06/2022 5:10 AM EDT) Neutrophil % 75.7 % [facility] Neutrophil Absolute 12.77(H) 1.70 - 6.10 x10(3)/ L [facility] Lymph % 10.4 % [facility] Lymphocytes Abs 1.8 0.9 - 3.2 x10(3)/ L [facility] Monocyte % 13.2 % [facility] Monocyte Abs 2.2(H) 0.3 - 0.9 x10(3)/ L [facility] Eos % 0.0 % [facility] Eosinophils Abs 0.0 0.0 - 0.4 x10(3)/ L [facility] Basophil % 0.2 % [facility] Baso Absolute 0.0 0.0 - 0.1 x10(3)/ L [facility] Immature Gran % 0.50 % [facility] Comment: Immature granulocytes(IG's)percentage and absolute count will include metamyelocytes, myelocytes, and promyelocytes. Blood smears from CBCs yielding IG's will be scanned manually for concordance. If this scan disagrees with the automated IG or if promyelocytes are noted, a manual differential will be performed. Immature Gran Absolute 0.09(H) 0.00 - 0.04 x10(3)/ L [facility] Blood 01/06/2022 5:10 AM EDT 01/06/2022 5:18 AM EDT Narrative Resulting Agency Comment Spec In Lab Bandar Jolly MD HEMATOLOGY ORDERABLE S [facility] [place] [address] * (ABNORMAL) Hemogram (01/06/2022 5:10 AM EDT) White Blood Cell 16.9(H) 4.0 - 9.5 x10(3)/mc L [facility] Red Blood Cell 3.75(L) 4.00 - 5.21 x10(6)/mc L [facility] Hemoglobin 11.4(L) 11.7 - 15.5 g/dL [facility] Hematocrit 32.8(L) 35.7 - 45.8 % [facility] Mean Cell Volume 87.5 82.6 - 94.4 fL [facility] Mean Cell Hemoglobin 30.4 27.1 - 32.0 pg [facility] Mean Cell Hemoglobin Concentration 34.8 31.7 - 35.0 g/dL [facility] Platelet 257 145 - 357 x10(3)/mc L [facility] RDW Standard Deviation 37.2 37.0 - 46.0 fL [facility] RDW coefficient of variation 11.7 11.5 - 14.1 % [facility] Mean Platelet Volume 8.8 7.6 - 12.9 fL [facility] NRBC% auto 0.0 % [facility] NRBC Absolute 0.000 0.000 - 0.000 x10(3)/mc L [facility] Blood 01/06/2022 5:10 AM EDT 01/06/2022 5:18 AM EDT Narrative Resulting Agency Comment Spec In Lab Bandar Jolly MD HEMATOLOGY ORDERABLE S [facility] [place] [address] * (ABNORMAL) Basic Metabolic Panel (non-fasting) (01/06/2022 5:10 AM EDT) Glucose 126 65 - 199 mg/dL [facility] Comment:Diabetes: >=200 mg/d L plus symptoms Blood Urea Nitrogen 7(L) 8 - 18 mg/dL [facility] Creatinine 0.69(L) 0.70 - 1.20 mg/dL [facility] Sodium 134(L) 135 - 145 mmol/L [facility] Potassium 4.0 3.5 - 5.0 mmol/L [facility] Comment: Please note: ??Patients with WBC >100,000 may have falsely elevated Potassium levels. ??For accurate Potassium quantification in these patients send serum separator tube (gold top) for subsequent determinations. ??Contact the Clinical Chemistry Laboratory if there are any questions. Chloride 101 98 - 107 mmol/L [facility] Carbon Dioxide 21(L) 22 - 31 mmol/L [facility] Anion Gap 12 5 - 15 mmol/L [facility] Calcium 8.3(L) 8.5 - 10.5 mg/dL [facility] Est Glomerular Filtration Rate 114 >=60 mL/min/1. 73 m?? [facility] Comment: This patient's estimated GFR [...] and symptoms in addition to eGFR. Blood 01/06/2022 5:10 AM EDT 01/06/2022 5:18 AM EDT Narrative Resulting Agency Comment Spec In Lab Charly Wilkins MD CHEMISTRY ORDERABLES [facility] [place] [address] * XR Lumbar Spine 2 Or 3 Views (Generic) (01/05/2022 5:35 PM EDT) Anatomical Region Laterality Modality L-spine N/A Digital Radiogra phy Impressions 01/05/2022 6:45 PM EDT Patient is status post posterior L4-5 fusion. Thank you for letting us participate in the care of this patient. ??If you are a health care provider and have any questions regarding this report, please contact the number below. ??For patients who have questions please contact the health chronic care nurse that requested your imaging first. ? Narrative 01/05/2022 6:45 PM EDT EXAMINATION: XR LUMBAR SPINE 2 OR 3 VIEWS (GENERIC) CLINICAL HISTORY: s/p L4-5 decompression, PSIF TECHNIQUE: 2 views of the lumbar spine COMPARISON: Intraoperative fluoroscopy January 05, 2022 FINDINGS: Patient is status post posterior L4-5 fusion. Position of threaded screws stable. Overlying drain is present. Alignment maintained. Procedure Note Cassie Heck MD - 01/05/2022 EXAMINATION: XR LUMBAR SPINE 2 OR 3 VIEWS (GENERIC) CLINICAL HISTORY: s/p L4-5 decompression, PSIF TECHNIQUE: 2 views of the lumbar spine COMPARISON: Intraoperative fluoroscopy January 05, 2022 FINDINGS: Patient is status post posterior L4-5 fusion. Position of threadedscrews stable. Overlying drain is present. Alignment maintained. IMPRESSION Patient is status post posterior L4-5 fusion. Thank you for letting us participate in the care of this patient. If youare a health care provider and have any questions regarding this report,please contact the number below. For patients who have questions please contactthe health chronic care nurse that requested your imaging first. Charly Wilkins MD IMG DX ORDERABLES * XR O-Arm No Rad <1Hr - OR Use (01/05/2022 3:35 PM EDT) Anatomical Region Laterality Modality N/A Radio Fluoroscop y Impressions 01/05/2022 5:16 PM EDT Expected findings. Imaging obtained for intraoperative guidance. Thank you for letting us participate in the care of this patient. ??If you are a health care provider and have any questions regarding this report, please contact the number below. ??For patients who have questions please contact the health chronic care nurse that requested your imaging first. ? Electronically signed by: Alfred Hernandez MD, [facility] ([phone]), at 01/05/2022 5:16 PM Narrative 01/05/2022 5:16 PM EDT EXAMINATION: XR O-ARM NO RAD - OR USE CLINICAL HISTORY: surgery TECHNIQUE: Series: The submitted images consist of 5 intraoperative fluoroscopic spot images and [address] image sets with corresponding sagittal and coronal reformatted images. Procedure Note Alfred Hernandez MD - 01/05/2022 EXAMINATION: XR O-ARM NO RAD - OR USE CLINICAL HISTORY: surgery TECHNIQUE: Series: The submitted images consist of 5 intraoperative fluoroscopicspot images and [address] image sets with corresponding sagittal and coronal reformatted images. IMPRESSION Expected findings. Imaging obtained for intraoperative guidance. Thank you for letting us participate in the care of this patient. If youare a health care provider and have any questions regarding this report,please contact the number below. For patients who have questions please contactthe health chronic care nurse that requested your imaging first. Electronically signed by: Alfred Hernandez MD, [facility]([phone]), at 01/05/2022 5:16 PM Charly Wilkins MD IMG FLUORO ORDERABLE S * XR Lumbar Spine 1 View (01/05/2022 9:50 AM EDT) Anatomical Region Laterality Modality L-spine N/A Digital Radiogra phy Impressions 01/05/2022 10:59 AM EDT Localization marker projects at the level of L4. Thank you for letting us participate in the care of this patient. ??If you are a health care provider and have any questions regarding this report, please contact the number below. ??For patients who have questions please contact the health chronic care nurse that requested your imaging first. ? Narrative 01/05/2022 10:59 AM EDT EXAMINATION: XR LUMBAR SPINE 1 VIEW CLINICAL HISTORY: surgery TECHNIQUE: 1 views of the lumbar spine, single image COMPARISON: CT lumbar spine 10/04/2021 FINDINGS: There is mild, 5 mm anterolisthesis of L4 on L5. No interval loss of vertebral body height. Normal disc space heights and vertebral body heights. A localization marker projects at the level of L4 Procedure Note Wayne Arenas MD - 01/05/2022 EXAMINATION: XR LUMBAR SPINE 1 VIEW CLINICAL HISTORY: surgery TECHNIQUE: 1 views of the lumbar spine, single image COMPARISON: CT lumbar spine 10/04/2021 FINDINGS: There is mild, 5 mm anterolisthesis of L4 on L5. No interval loss ofvertebral body height. Normal disc space heights and vertebral body heights. A localization marker projects at the level of L4 IMPRESSION Localization marker projects at the level of L4. Thank you for letting us participate in the care of this patient. If youare a health care provider and have any questions regarding this report,please contact the number below. For patients who have questions please contactthe health chronic care nurse that requested your imaging first. Charly Wilkins MD IMG DX ORDERABLES documented in this encounter Visit Diagnoses Diagnosis s/p L4-5 decompression, PSIF Dr. Wilkins- Primary Thoracic or lumbosacral neuritis or radiculitis, unspecified s/p L4-5 decompression, PSIF Dr. 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, unspecified Spondylolisthesis at L4-L5 level Morbid obesity with BMI of 40.0-44.9, adult Morbid obesity documented in this encounter Admitting Diagnoses Diagnosis Radiculopathy of lumbar region Thoracic or lumbosacral neuritis or radiculitis, unspecified documented in this encounter Administered Medications Inactive Administered Medications - up to 3 most recent administrations Medication Order MAR Action Action Date Dose Rate Site acetaminophen (Tylenol) tablet 1,000 mg 1,000 mg, Oral, ONCE, 1 dose, On Sat01/05/22 at 0745, Day of Surgery (Day of Procedure), Routine Given 01/05/2022 7:49 AM EDT 1,000 mg acetaminophen (Tylenol) tablet 1,000 mg 1,000 mg, Oral, EVERY 8 HOURS SCHEDULED, First dose on Sat01/05/22 at 1615, Until Discontinued, Maximum dose of acetaminophen is 4000 mg from all sources in 24 hours. When ordered for pain, acetaminophen should be given even when other ordered pain medications are indicated. , Routine Given 01/07/2022 5:07 AM EST 1,000 mg Given 01/06/2022 9:56 PM EDT 1,000 mg Given 01/06/2022 1:26 PM EDT 1,000 mg acetaminophen (Tylenol) tablet 1,000 mg 1,000 mg, Oral, EVERY 6 HOURS SCHEDULED, First dose (after last modification) on Sat01/07/22 at 1300, Until Discontinued, Maximum dose of acetaminophen is 4000 mg from all sources in 24 hours. When ordered for pain, acetaminophen should be given even when other ordered pain medications are indicated. , Routine Given 01/08/2022 11:29 AM EST 1,000 mg Given 01/08/2022 5:22 AM EST 1,000 mg Given 01/07/2022 11:42 PM EST 1,000 mg ARIPiprazole (Abilify) tablet 2 mg 2 mg, Oral, DAILY, First dose on Sat01/05/22 at 2045, Until Discontinued, Routine Given 01/08/2022 9:24 AM EST 2 mg Given 01/07/2022 8:44 AM EST 2 mg Given 01/06/2022 9:12 AM EDT 2 mg bisacodyL (Dulcolax) suppository 10 mg 10 mg, Rectal, DAILY PRN, Starting on Sat01/08/22 at 0801, Until Sat01/08/22 at 1506, Constipation, Administer if no bowel movement within 48 hours to achieve: (1) One bowel movement at least every 48 hours, AND (2) without straining. If multiple PRN bowel medications ordered, start with polyethylene glycoL, then lactulose, then oral bisacodyL, then bisacodyL suppository, then magnesium citrate, then tap water enema. Multiple medications may be given concomitantly for constipation., Routine bisacodyl EC (Dulcolax) tablet 10 mg 10 mg, Oral, 2 TIMES DAILY PRN, Starting on Sat01/08/22 at 0801, Until Sat01/08/22 at 1506, Constipation, DO NOT CRUSH OR OPEN Administer if no bowel movement within 48 hours to achieve: (1) One bowel movement at least every 48 hours, AND (2) without straining. If multiple PRN bowel medications ordered, start with polyethylene glycoL, then lactulose, then oral bisacodyL, then bisacodyL suppository, then magnesium citrate, then tap water enema. Multiple medications may be given concomitantly for constipation., Routine ceFAZolin (Ancef) 2 g vial attach to sodium chloride 0.9% 100 mL Mini-Bag Plus 2 g, Intravenous, ONCE, 1 dose, On Sat01/05/22 at 2015, Administer over 30 Minutes, Adjust to 4 hours from intraoperative dose. * Beta-lactam based antibiotics (eg. Ampicillin, Cefazolin, Aztreonam) should be administered within 4 hours of the preceding intraoperative dose. * Vancomycin, Flouroquinolones, Clindamycin, Gentamicin, and Metronidazole should be administered within 8 hours of the preceding intraoperative dose., Recovery (Recovery-Hospital Unit), Indication for (Active or Suspected): Prophylaxis New Bag 01/05/2022 7:55 PM EDT 2 g 200 mL/hr ceFAZolin (Ancef) 2 g vial attach to sodium chloride 0.9% 100 mL Mini-Bag Plus 2 g, Intravenous, EVERY 8 HOURS, 2 doses, First dose (after last reorder) on 01/06/22 at 0400, Last dose on 01/06/22 at 1200, Administer over 30 Minutes, Adjust to 4 hours from intraoperative dose. * Beta-lactam based antibiotics (eg. Ampicillin, Cefazolin, Aztreonam) should be administered within 4 hours of the preceding intraoperative dose. * Vancomycin, Flouroquinolones, Clindamycin, Gentamicin, and Metronidazole should be administered within 8 hours of the preceding intraoperative dose., Recovery (Recovery-Hospital Unit), Indication for (Active or Suspected): Prophylaxis New Bag 01/06/2022 11:22 AM EDT 2 g 200 mL/hr New Bag 01/06/2022 4:42 AM EDT 2 g 200 mL/hr cholecalciferol (Vitamin D3) tablet 2,000 Units 2,000 Units, Oral, DAILY, First dose on Sat01/05/22 at 2045, Until Discontinued, Routine Given 01/08/2022 9:24 AM EST 2,000 Units Given 01/07/2022 8:44 AM EST 2,000 Units Given 01/06/2022 9:12 AM EDT 2,000 Units citalopram (CeleXA) tablet 40 mg 40 mg, Oral, DAILY, First dose on Sat01/05/22 at 2045, Until Discontinued, Routine Given 01/08/2022 9:24 AM EST 40 mg Given 01/07/2022 8:44 AM EST 40 mg Given 01/06/2022 9:11 AM EDT 40 mg cloBAZam (Onfi) tablet 10 mg 10 mg, Oral, EVERY MORNING, First dose on Sat01/06/22 at 0700, Until Discontinued, Routine Given 01/08/2022 6:10 AM EST 10 mg Given 01/07/2022 7:00 AM EST 10 mg Given 01/06/2022 6:10 AM EDT 10 mg cloBAZam (Onfi) tablet 20 mg 20 mg, Oral, NIGHTLY, First dose on Sat01/05/22 at 2100, Until Discontinued, Routine Given 01/07/2022 8:51 PM EST 20 mg Given 01/06/2022 8:21 PM EDT 20 mg Given 01/05/2022 10:16 PM EDT 20 mg cyclobenzaprine (Flexeril) tablet 5 mg 5 mg, Oral, 3 TIMES DAILY PRN, Starting on Sat01/07/22 at 1053, Until Sat01/08/22 at 1506, Muscle spasms, Routine Given 01/08/2022 5:24 AM EST 5 mg Given 01/07/2022 11:12 AM EST 5 mg ipratropium-albuteroL (Duoneb) 0.5 mg-3 mg(2.5 mg base)/3 mL nebulizer solution 3 mL 3 mL, Nebulization, EVERY 4 HOURS PRN, Starting on 01/06/22 at 0726, Until Sat01/08/22 at 1506, Wheezing, Routine lactated ringers infusion 1,000 mL, at 100 mL/hr, Intravenous, CONTINUOUS, Starting on Sat01/05/22 at 0745, Until Sat01/05/22 at 1653, Day of Surgery (Day of Procedure) New Bag 01/05/2022 11:20 AM EDT New Bag 01/05/2022 9:40 AM EDT New Bag 01/05/2022 8:11 AM EDT 1,000 mLs 100 mL/hr lactulose (Chronulac) (0.67 gram/mL) oral liquid 20 g 20 g, Oral, DAILY PRN, Starting on Sat01/08/22 at 0801, Until Sat01/08/22 at 1506, Constipation, Administer if needed per patient's routine or if no bowel movement within 48 hours to achieve: (1) One bowel movement at least every 48 hours, AND (2) Without straining. Start with 30 mL orally. If no bowel movement within 24 hours, increase to 60 mL orally once daily PRN. If multiple PRN bowel medications ordered, start with polyethylene glycoL, then lactulose, then oral bisacodyL, then bisacodyL suppository, then magnesium citrate, then tap water enema. Multiple medications may be given concomitantly for constipation., Routine lidocaine (Lidoderm) 5% patch 3 patch 3 patch, Transdermal, EVERY 24 HOURS, First dose on Sat01/08/22 at 0845, Until Discontinued, Apply patch(es) for 12 hours, and then remove for 12 hours., Routine Patch Applied 01/08/2022 9:24 AM EST 3 patches 07- Back Lower (Left) lidocaine (Lidoderm) topical patch REMOVAL Transdermal, EVERY 24 HOURS, First dose on Sat01/08/22 at 2000, Until Discontinued, Remove lidocaine 5% patch oxyCODONE (Roxicodone) tablet 10 mg 10 mg, Oral, EVERY 4 HOURS PRN, Starting on Sat01/05/22 at 1450, Until Sat01/08/22 at 1506, Pain, moderate pain (4-6), For moderate pain (4-6). Do not exceed 15 mg in 4 hours. If pain not relieved, call provider., Routine Given 01/08/2022 9:23 AM EST 10 mg Given 01/08/2022 5:22 AM EST 10 mg Given 01/07/2022 8:50 PM EST 10 mg oxyCODONE (Roxicodone) tablet 15 mg 15 mg, Oral, EVERY 4 HOURS PRN, Starting on Sat01/05/22 at 1450, Until Sat01/08/22 at 1506, Pain, severe pain (7-10), For severe pain (7-10). Do not exceed 15 mg in 4 hours. If pain not relieved, call provider., Routine Given 01/07/2022 1:2 3 AM EDT 15 mg Given 01/06/2022 5:13 PM EDT 15 mg Given 01/06/2022 2:23 AM EDT 15 mg oxyCODONE (Roxicodone) tablet 5 mg 5 mg, Oral, EVERY 4 HOURS PRN, Starting on Sat01/05/22 at 1450, Until Sat01/08/22 at 1506, Pain, mild pain (1-3), For mild pain (1-3). Do not exceed 15 mg in 4 hours. If pain not relieved, call provider, Routine Given 01/07/2022 7:00 AM EST 5 mg Given 01/05/2022 3:59 PM EDT 5 mg polyethylene glycoL (Miralax) packet 17 g 17 g, Oral, 2 TIMES DAILY, First dose on Sat01/05/22 at 2100, Until Discontinued, Routine Given 01/08/2022 9:24 AM EST 17 g Given 01/07/2022 8:44 AM EST 17 g Given 01/06/2022 9:11 AM EDT 17 g potassium chloride ER (K-Dur/Klor-Con) tablet 40 mEq 40 mEq, Oral, ONCE, 1 dose, On Sat01/08/22 at 1200, STAT Given 01/08/2022 11:29 AM EST 40 mEq senna-docusate (Pericolace) 8.6-50 mg per tablet 2 tablet 2 tablet, Oral, 2 TIMES DAILY, First dose on Sat01/05/22 at 2100, Until Discontinued, Routine Given 01/08/2022 9:24 AM EST 2 tablets Given 01/07/2022 8:50 PM EST 2 tablets Given 01/07/2022 8:44 AM EST 2 tablets sodium chloride 0.9 % (flush) (BD PosiFlush Normal Saline 0.9) flush 5 mL 5 mL, Intravenous, 2 TIMES DAILY, First dose on Sat01/05/22 at 2100, Until Discontinued, Recovery (Recovery-Hospital Unit), Routine Given 01/08/2022 9:24 AM EST 5 mLs Given 01/07/2022 8:51 PM EST 5 mLs Given 01/07/2022 8:44 AM EST 5 mLs sodium chloride 0.9% infusion 75 mL/hr, Intravenous, CONTINUOUS, Starting on Sat01/05/22 at 1515, Until Sat01/08/22 at 1506, Recovery (Recovery-Hospital Unit) New Bag 01/06/2022 6:48 AM EDT 75 mL/h r 75 mL/hr New Bag 01/05/2022 3:00 PM EDT 75 mL/hr 75 mL/hr documented in this encounter Active and Recently Administered Medications Due to Daylight Saving Time, this section may contain times in both EDT and EST. Scheduled Medication Order 01/06/2022 01/07/2022 01/08/2022 acetaminophen (Tylenol) tablet 1,000 mg (CANCELED) 1,000 mg, Oral, EVERY 8 HOURS SCHEDULED, First dose on Sat01/05/22 at 1615, Until Discontinued, Maximum dose of acetaminophen is 4000 mg from all sources in 24 hours. When ordered for pain, acetaminophen should be given even when other ordered pain medications are indicated. , Routine 0610 (Given - Provider: Froylan Michaud RN - Comment: sharp pain from back)1326 (Given - Provider: Katia Roldan RN)2156 (Given - Provider: Kiera Simons RN) 0507 (Given - Provider: Kiera Simons RN) acetaminophen (Tylenol) tablet 1,000 mg 1,000 mg, Oral, EVERY 6 HOURS SCHEDULED, First dose (after last modification) on Sat01/07/22 at 1300, Until Discontinued, Maximum dose of acetaminophen is 4000 mg from all sources in 24 hours. When ordered for pain, acetaminophen should be given even when other ordered pain medications are indicated. , Routine 1508 (Given - Provider: Karyn Ayala RN)1746 (Not Given - Provider: Karyn Ayala RN - Reason: See comment - Comment: dose rescheduled.)2342 (Given - Provider: Morales Christianson RN) 0522 (Given - Provider: Morales Christianson RN)1129 (Given - Provider: Domi Andrew, ARLETTE) ARIPiprazole (Abilify) tablet 2 mg 2 mg, Oral, DAILY, First dose on Sat01/05/22 at 2045, Until Discontinued, Routine 0912 (Given - Provider: Katia Roldan RN) 0844 (Given - Provider: Shavonne Carter RN) 0924 (Given - Provider: Domi Andrew RN) ceFAZolin (Ancef) 2 g vial attach to sodium chloride 0.9% 100 mL Mini-Bag Plus (COMPLETED) 2 g, Intravenous, EVERY 8 HOURS, 2 doses, First dose (after last reorder) on Sat01/06/22 at 0400, Last dose on Sat01/06/22 at 1200, Administer over 30 Minutes, Adjust to 4 hours from intraoperative dose. * Beta-lactam based antibiotics (eg. Ampicillin, Cefazolin, Aztreonam) should be administered within 4 hours of the preceding intraoperative dose. * Vancomycin, Flouroquinolones, Clindamycin, Gentamicin, and Metronidazole should be administered within 8 hours of the preceding intraoperative dose., Recovery (Recovery-Hospital Unit), Indication for (Active or Suspected): Prophylaxis 0442 (New Bag - Provider: Froylan Michaud RN)0512 (Stopped - Provider: Froylan Michaud RN)1122 (New Bag - Provider: Katia Roldan RN)1152 (Stopped - Provider: Katia Roldan RN) cholecalciferol (Vitamin D3) tablet 2,000 Units 2,000 Units, Oral, DAILY, First dose on Sat01/05/22 at 2045, Until Discontinued, Routine 0912 (Given - Provider: Katia Roldan RN) 0844 (Given - Provider: Shavonne Carter RN) 0924 (Given - Provider: Domi Andrew, ARLETTE) citalopram (CeleXA) tablet 40 mg 40 mg, Oral, DAILY, First dose on Sat01/05/22 at 2045, Until Discontinued, Routine 0911 (Given - Provider: Katia Roldan RN) 0844 (Given - Provider: Shavonne Carter, ARLETTE) 0924 (Given - Provider: Domi Andrew, ARLETTE) cloBAZam (Onfi) tablet 10 mg 10 mg, Oral, EVERY MORNING, First dose on Sat01/06/22 at 0700, Until Discontinued, Routine 0610 (Given - Provider: Froylan Michaud RN) 0700 (Given - Provider: Kiera Simons, ARLETTE) 0610 (Given - Provider: Morales Christianson RN) cloBAZam (Onfi) tablet 20 mg 20 mg, Oral, NIGHTLY, First dose on Sat01/05/22 at 2100, Until Discontinued, Routine 2020 (Given - Provider: Kiera Simons RN) 2050 (Given - Provider: Morales Christianson RN) lidocaine (Lidoderm) 5% patch 3 patch(Linked Group 1) 3 patch, Transdermal, EVERY 24 HOURS, First dose on Sat01/08/22 at 0845, Until Discontinued, Apply patch(es) for 12 hours, and then remove for 12 hours., Routine 923 (Patch Applied - Provider: Domi Andrew RN) lidocaine (Lidoderm) topical patch REMOVAL(Linked Group 1) Transdermal, EVERY 24 HOURS, First dose on Sat01/08/22 at 2000, Until Discontinued, Remove lidocaine 5% patch polyethylene glycoL (Miralax) packet 17 g 17 g, Oral, 2 TIMES DAILY, First dose on Sat01/05/22 at 2100, Until Discontinued, Routine 910 (Given - Provider: Katia Roldan RN)2021 (Not Given - Provider: Kiera Simons RN - Reason: Patient/family refused) 08 (Given - Provider: Shavonne Carter RN)2099 (Not Given - Provider: Morales Christianson RN - Reason: Patient/family refused) 0924 (Given - Provider: Domi Andrew RN) potassium chloride ER (K-Dur/Klor-Con) tablet 40 mEq (COMPLETED) 40 mEq, Oral, ONCE, 1 dose, On Sat01/08/22 at 1200, STAT 1129 (Given - Provider: Domi Andrew RN) senna-docusate (Pericolace) 8.6-50 mg per tablet 2 tablet 2 tablet, Oral, 2 TIMES DAILY, First dose on Sat01/05/22 at 2100, Until Discontinued, Routine 09 (Given - Provider: Katia Roldan RN)2020 (Given - Provider: Kiera Simons RN) 0844 (Given - Provider: Shavonne Carter RN)2049 (Given - Provider: Morales Christianson RN) 0924 (Given - Provider: Domi Andrew RN) sodium chloride 0.9 % (flush) (BD PosiFlush Normal Saline 0.9) flush 5 mL 5 mL, Intravenous, 2 TIMES DAILY, First dose on Sat01/05/22 at 2100, Until Discontinued, Recovery (Recovery-Hospital Unit), Routine 0900 (Not Given - Provider: Katia Roldan RN - Reason: See comment - Comment: IVF infusing)2022 (Given - Provider: Kiera Simons, ARLETTE) 0844 (Given - Provider: Shavonne Carter RN)2050 (Given - Provider: Morales Christianson RN) 0924 (Given - Provider: Domi Andrew RN) Continuous Medication Order 01/06/2022 01/07/2022 01/08/2022 sodium chloride 0.9% infusion 75 mL/hr, Intravenous, CONTINUOUS, Starting on Sat01/05/22 at 1515, Until Sat01/08/22 at 1506, Recovery (Recovery-Hospital Unit) 0648 (New Bag - Provider: Froylan Michaud RN) 1506 (Due: Stopped) PRN Medication Order 01/06/2022 01/07/2022 01/08/2022 bisacodyL (Dulcolax) suppository 10 mg 10 mg, Rectal, DAILY PRN, Starting on Sat01/08/22 at 0801, Until Sat01/08/22 at 1506, Constipation, Administer if no bowel movement within 48 hours to achieve: (1) One bowel movement at least every 48 hours, AND (2) without straining. If multiple PRN bowel medications ordered, start with polyethylene glycoL, then lactulose, then oral bisacodyL, then bisacodyL suppository, then magnesium citrate, then tap water enema. Multiple medications may be given concomitantly for constipation., Routine bisacodyl EC (Dulcolax) tablet 10 mg 10 mg, Oral, 2 TIMES DAILY PRN, Starting on Sat01/08/22 at 0801, Until Sat01/08/22 at 1506, Constipation, DO NOT CRUSH OR OPEN Administer if no bowel movement within 48 hours to achieve: (1) One bowel movement at least every 48 hours, AND (2) without straining. If multiple PRN bowel medications ordered, start with polyethylene glycoL, then lactulose, then oral bisacodyL, then bisacodyL suppository, then magnesium citrate, then tap water enema. Multiple medications may be given concomitantly for constipation., Routine cyclobenzaprine (Flexeril) tablet 5 mg 5 mg, Oral, 3 TIMES DAILY PRN, Starting on Sat01/07/22 at 1053, Until Sat01/08/22 at 1506, Muscle spasms, Routine 1112 (Given - Provider: Shavonne Carter RN) 0524 (Given - Provider: Morales Christianson RN) ipratropium-albuteroL (Duoneb) 0.5 mg-3 mg(2.5 mg base)/3 mL nebulizer solution 3 mL 3 mL, Nebulization, EVERY 4 HOURS PRN, Starting on Sat01/06/22 at 0726, Until Sat01/08/22 at 1506, Wheezing, Routine lactulose (Chronulac) (0.67 gram/mL) oral liquid 20 g 20 g, Oral, DAILY PRN, Starting on Sat01/08/22 at 0801, Until Sat01/08/22 at 1506, Constipation, Administer if needed per patient's routine or if no bowel movement within 48 hours to achieve: (1) One bowel movement at least every 48 hours, AND (2) Without straining. Start with 30 mL orally. If no bowel movement within 24 hours, increase to 60 mL orally once daily PRN. If multiple PRN bowel medications ordered, start with polyethylene glycoL, then lactulose, then oral bisacodyL, then bisacodyL suppository, then magnesium citrate, then tap water enema. Multiple medications may be given concomitantly for constipation., Routine lidocaine (Xylocaine) 1% (10 mg/mL) injection 3 mg 3 mg (0.3 mL), Subcutaneous, ONCE PRN, 1 dose, Starting on Sat01/05/22 at 2020, Until Sat01/08/22 at 1506, for discomfort with PIV insertion, Recovery (Recovery-Hospital Unit), Routine oxyCODONE (Roxicodone) tablet 10 mg(Linked Group 2) 10 mg, Oral, EVERY 4 HOURS PRN, Starting on Sat01/05/22 at 1450, Until Sat01/08/22 at 1506, Pain, moderate pain (4-6), For moderate pain (4-6). Do not exceed 15 mg in 4 hours. If pain not relieved, call provider., Routine 0223 (See Alternative - Provider: Froylan Michaud RN)0913 (Given - Provider: Katia Roldan RN)1713 (See Alternative - Provider: Morales Christianson RN) 0123 (See Alternative - Provider: Adelina Benavidez RN)0700 (See Alternative - Provider: Kiera Simons RN)1042 (Given - Provider: Karyn Ayala RN)1507 (Given - Provider: Karyn Ayala RN)2049 (Given - Provider: Morales Christianson RN) 0522 (Given - Provider: Morales Christianson RN)0923 (Given - Provider: Domi Andrew, ARLETTE) oxyCODONE (Roxicodone) tablet 15 mg(Linked Group 2) 15 mg, Oral, EVERY 4 HOURS PRN, Starting on Sat01/05/22 at 1450, Until Sat01/08/22 at 1506, Pain, severe pain (7-10), For severe pain (7-10). Do not exceed 15 mg in 4 hours. If pain not relieved, call provider., Routine 0223 (Given - Provider: Froylan Michaud RN - Comment: shooting from my mid back)0913 (See Alternative - Provider: Katia Roldan RN)1713 (Given - Provider: Morales Christianson RN) 0123 (Given - Provider: Adelina Benavidez RN)0700 (See Alternative - Provider: Kiera Simons RN)1042 (See Alternative - Provider: Karyn Ayala RN)1507 (See Alternative - Provider: Karyn Ayala RN)205 (See Alternative - Provider: Morales Christianson RN) 0522 (See Alternative - Provider: Morales Christianson RN)0923 (See Alternative - Provider: Domi Andrew RN) oxyCODONE (Roxicodone) tablet 5 mg(Linked Group 2) 5 mg, Oral, EVERY 4 HOURS PRN, Starting on Sat01/05/22 at 1450, Until Sat01/08/22 at 1506, Pain, mild pain (1-3), For mild pain (1-3). Do not exceed 15 mg in 4 hours. If pain not relieved, call provider, Routine 0223 (See Alternative - Provider: Froylan Michaud, RN)0913 (See Alternative - Provider: Katia Roldan, RN)1713 (See Alternative - Provider: Morales Christianson, RN) 0123 (See Alternative - Provider: Adelina Soto V RN)0700 (Given - Provider: Kiera Simons, RN)1042 (See Alternative - Provider: Karyn Ayala, RN)1507 (See Alternative - Provider: Karyn Ayala, ARLETTE)2050 (See Alternative - Provider: Morales Christianson, ARLETTE) 0522 (See Alternative - Provider: Morales Christianson RN)0923 (See Alternative - Provider: Domi Andrew RN) sodium chloride 0.9 % (flush) (BD PosiFlush Normal Saline 0.9) flush 5-20 mL 5-20 mL, Intravenous, EVERY 1 MIN PRN, Starting on Sat01/05/22 at 2020, Until Sat01/08/22 at 1506, flush, Flush pertains to all indwelling lines. Flush per protocol found in the job aid using the link provided on this medication record., Recovery (Recovery-Hospital Unit), Routine Linked Groups Order Group 1: lidocaine (Lidoderm) 5% patch 3 patchJump to med 3 patch, Transdermal, EVERY 24 HOURS, First dose on Sat01/08/22 at 0845, Until Discontinued, Apply patch(es) for 12 hours, and then remove for 12 hours., Routine And lidocaine (Lidoderm) topical patch REMOVALJump to med Transdermal, EVERY 24 HOURS, First dose on Sat01/08/22 at 2000, Until Discontinued, Remove lidocaine 5% patch Group 2: oxyCODONE (Roxicodone) tablet 5 mgJump to med 5 mg, Oral, EVERY 4 HOURS PRN, Starting on Sat01/05/22 at 1450, Until Sat01/08/22 at 1506, Pain, mild pain (1-3), For mild pain (1-3). Do not exceed 15 mg in 4 hours. If pain not relieved, call provider, Routine Or oxyCODONE (Roxicodone) tablet 10 mgJump to med 10 mg, Oral, EVERY 4 HOURS PRN, Starting on Sat01/05/22 at 1450, Until Sat01/08/22 at 1506, Pain, moderate pain (4-6), For moderate pain (4-6). Do not exceed 15 mg in 4 hours. If pain not relieved, call provider., Routine Or oxyCODONE (Roxicodone) tablet 15 mgJump to med 15 mg, Oral, EVERY 4 HOURS PRN, Starting on Sat01/05/22 at 1450, Until Sat01/08/22 at 1506, Pain, severe pain (7-10), For severe pain (7-10). Do not exceed 15 mg in 4 hours. If pain not relieved, call provider., Routine documented in this encounter Care Teams Director Of Institutional Research Relationship Specialty Start Date End Date Comfort Urban, TAX EXAMINER [address] [place] [address] PCP - General Family Medicine 07/19/17 03/11/23 documented as of this encounter
--- OUTSIDE RECORDS SUMMARY | 2023-11-16 14:12 | XMS_ITS | Encounter Summary ---
Author Organization [facility] [place] [address] Care Team Providers Care Telephone Information Clerk Name Role Phone Comfort Urban APRN Primary Care Provider [phone] Encounter Details Date Type Department Care Team (Late st Contact Info) Description 07/05/2022 Telephone Obstetrics [place] [phone] Tereza Quesada MD [facility] OBSTETRICS & [place] [address] Social History Tobacco Use Types Packs/Day Years [...] a group home (including now)? No 03/13/2022 Sex and Gender Information Value Date Recorded Sex Assigned at Not on file Gender Identity Not on file Sexual Orientation Not on file documented as of this encounter Miscellaneous Notes * Telephone Encounter - Tereza Quesada MD - 07/05/2022 7:59 PM EDT Bessie Levy is a 36 y.o. female who calls on-call line reporting bilateral lower quadrant pain. She has had ovarian cysts before and wonders if she should present to her local emergency room. She also had back surgery 6 months ago and wonders if it could be related to that. She reports she feels hot but has not taken her temperature. She is nauseous and having diarrhea (does not improve pain). She rates her pain 8/10. She was last seen by [facility] Turbo Generator Oiler in 02/2022 re: 5.9 x 5.9 x 6.5 cm ovarian cyst which had resolved.Reviewed that if ovarian cyst has recurred, concern for possible ovarian torsion, which would be anemergency, although with bilateral lower quadrant pain, could also be related to a GI bug in setting of diarrhea. Discussed that it is difficult to know without seeing her what could be the source ofher discomfort, and that if she is in this much pain she should present to emergency room. Ultimately she opts to continue to monitor at home, and will consider going to Urgent Care after work tomorrow. Tereza Quesada MD PGY3 07/05/2022 documented in this encounter Plan of Treatment Upcoming Encounters Date Type Department Care Team (Late st Contact Info) Description 12/24/2023 10:00 AM EDT [place] [phone] Tereso Mohan MD [facility] [place] [address] 12/24/2023 10:30 AM EDT Appointment XRay at [address] [place] [phone] Shelby Aaron CHIEF OPERATING ENGINEER [facility] [place] [address] 12/24/2023 11:30 AM EDT Office Visit [place] [phone] [facility] [place] [address] documented as of this encounter Visit Diagnoses Not on filedocumented in this encounter Care Teams Telephone Information Clerk Relationship Specialty Start Date End Date Comfort Urban APRN [address] [place] [address] PCP - General Family Medicine 07/19/17 03/11/23 documented as of this encounter
--- OUTSIDE RECORDS SUMMARY | 2023-11-16 14:12 | XMS_ITS | Encounter Summary ---
[place] [address] Care Team Providers Care Recreation Therapist Name Role Phone Comfort Urban APRN Primary Care Provider [phone] Encounter Details Date Type Department Care Team (Late st Contact Info) Description 03/12/2022 Telephone [facility] [place] [phone] Jeniffer Hinojosa, RN Social History Tobacco Use Types Packs/Day [...] encounter Miscellaneous Notes * Telephone Encounter - Jeniffer Hinojosa RN - 03/12/2022 4:59 PM EST Received call from pt who is s/p Posterior lumbar decompression fusion L4-5 01/05/2022. Pt was last seen in clinic 01/23/22 w XR; pt has next scheduled surgical FU w XR pending for 05/01/21. 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 Discussed job demands with pt in relation to how she is doing. Informed pt that I anticipated being bill to provide a release with a couple restrictions that would be in place until she was seen again on 05/01/22. Above reviewed with Dr Wilkins. Letter prepared and sent to pt via [facility]. ~ 5:20 pm Pt notified by IB message As I was unable to get through to pt via [employer]. documented in this encounter Plan of Treatment Upcoming Encounters Date Type Department Care Team (Late st Contact Info) Description 12/24/2023 10:00 AM EDT [place] [address] Tereso Mohan MD [facility] [place] [address] 12/24/2023 10:30 AM EDT Appointment XRay at [address] [place] [phone] Shelby Aaron DIRECTOR OF REHABILITATION AND [facility] [place] [address] 12/24/2023 11:30 AM EDT Office Visit [facility] at [facility] [place] [address] Shelby Aaron DIRECTOR OF REHABILITATION AND [facility] [place] [address] documented as of this encounter Visit Diagnoses Not on filedocumented in this encounter Care Teams Recreation Therapist Relationship Specialty Start Date End Date Comfort Urban APRN [address] [facility] [place] [address] PCP - General Family Medicine 07/19/17 03/11/23 documented as of this encounter
--- OUTSIDE RECORDS SUMMARY | 2023-11-16 14:12 | XMS_ITS | Encounter Summary ---
[place] [address] Care Team Providers Care Health Care Coach Name Role Phone Comfort Urban APRN Primary Care Provider [phone] Reason for Visit * Reason Onset Date Comments Medication Refill 01/15/2022 Encounter Details Date Type Department Care Team (Late st Contact Info) Description 01/15/2022 Refill [place] [phone] Susanna Jason LPN Social History Tobacco Use [...] Telephone Encounter - Susanna Jason LPN - 01/15/2022 3:29 PM EST Bessie called with a request for refill of Oxycodone and Flexeril, she currently is taking 1-2 Oxycodone 5-1-0 mg 2-3 times a day, and Flexeril 5 mg at HS PRN, she is s/p 11-4-22 Posterior lumbar decompression instrumented fusion with TLIF L4-5 , she is doing ok . Routing to Dr. Wilkins and pended scripts he can sign if agreeable. documented in this encounter Plan of Treatment Upcoming Encounters Date Type Department Care Team (Late st Contact Info) Description 12/24/2023 10:00 AM EDT Office Visit Neurology at [place] [phone] Tereso Mohan MD [facility] [place] [address] 12/24/2023 10:30 AM EDT Appointment XRay at [address] [place] [phone] Shelby Aaron PATTERN SHOP SUPERVISOR [facility] [place] [address] 12/24/2023 11:30 AM EDT Office Visit Pain and Spine Center at [place] [phone] Shelby Aaron PATTERN SHOP SUPERVISOR [facility] [place] [address] documented as of this encounter Visit Diagnoses Not on filedocumented in this encounter Care Teams Health Care Coach Relationship Specialty Start Date End Date Comfort Urban APRN [address] [facility] [place] [address] PCP - General Family Medicine 07/19/17 03/11/23 documented as of this encounter
--- OUTSIDE RECORDS SUMMARY | 2023-11-16 14:12 | XMS_ITS | Encounter Summary ---
Author Organization [facility] Address [facility] [place] [address] Care Team Providers Care Privacy Officer Name Role Phone Comfort Urban APRN Primary Care Provider [phone] Encounter Details Date Type Department Care Team (Latest Contact Info) Description 03/13/2022 Travel Social History Tobacco Use Types Packs/Day [...] 10:00 AM EDT [place] [phone] Tereso Mohan MD [facility] [place] [address] 12/24/2023 10:30 AM EDT Appointment XRay at [address] [place] [phone] Shelby Aaron HAZARDOUS MATERIALS ANALYST [facility] [place] [address] 12/24/2023 11:30 AM EDT Office Visit Pain and Spine Center at [place] [phone] Shelby Aaron HAZARDOUS MATERIALS ANALYST [facility] [place] [address] documented as of this encounter Visit Diagnoses Not on filedocumented in this encounter Care Teams Privacy Officer Relationship Specialty Start Date End Date Comfort Urban APRN [address] [place] [address] PCP - General Family Medicine 07/19/17 03/11/23 documented as of this encounter
--- OUTSIDE RECORDS SUMMARY | 2023-11-16 14:12 | XMS_ITS | Encounter Summary ---
Author Organization [facility] Address [facility] [place] [address] Care Team Providers Care Cleat Thrower Name Role Phone Comfort Urban APRN Primary Care Provider [phone] Encounter Details Date Type Department Care Team (Latest Contact Info) Description 03/27/2022 Travel Social History Tobacco Use Types Packs/Day [...] 10:00 AM EDT Office [place] [address] Tereso Mohan MD [facility] [place] [address] 12/24/2023 10:30 AM EDT Appointment XRay at [address] [place] [phone] Shelby Aaron ROOFING APPLICATOR [facility] [place] [address] 12/24/2023 11:30 AM EDT Office Visit [facility] at [place] [phone] Shelby Aaron ROOFING APPLICATOR [facility] [place] [address] documented as of this encounter Visit Diagnoses Not on filedocumented in this encounter Care Teams Cleat Thrower Relationship Specialty Start Date End Date Comfort Urban APRN [address] [place] [address] PCP - General Family Medicine 07/19/17 03/11/23 documented as of this encounter
--- OUTSIDE RECORDS SUMMARY | 2023-11-16 14:12 | XMS_ITS | Encounter Summary ---
Author [place] [address] Care Team Providers Care Tier Lift Truck Operator Name Role Phone Comfort Urban APRN Primary Care Provider [phone] Reason for Visit * Reason Comments Follow-up S/P L4-L5 Decomp Encounter Details Date Type Department Care Team (Latest Contact Info) Description 03/27/2022 1:00 PM EST Office Visit [facility] [place] [address] Charly Wilkins MD [facility] [address] Spondylolisthesis at L4-L5 level; Congenital anomalies of spine Social History Tobacco Use Types Packs/Day Years [...] to sleep or slept in a senior living (including now)? No 03/13/2022 Sex and Gender [...] - Inhaled Oxygen Concentration - - Weight 95.3 kg (210 lb) 03/27/2022 12:53 PM EST Height 154.9 cm (5' 1) 03/27/2022 12:53 PM EST Body Mass Index 39.68 03/27/2022 12:53 PM EST documented in this encounter Progress Notes * Kiara Sheth MD - 03/27/2022 1:00 PM EST Images from the original note were not included. [facility] MD [place] Comfort Torres, CLOTH WINDER MACHINE OPERATOR [address] [place] [address] Comfort Urban APRN [address] [place] [address] Dear Colleagues, I had the pleasure of seeing this patient at the [facility] for surgical evaluation. Procedure: Posterior lumbar decompression fusion L4-5 01/05/2022. Unable to place a TLIF. ?? Diagnosis: 1. 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 7 mm listhesis on flexion. Correction to 4 mm on extension. 2. Bilateral L5 radiculopathy as well as back pain. 3. Obesity BMI 41 4. Medical issues including cardiology, neurology. Hemoglobin A1c 5.2 Interval History: Patient is now 2 months status post L4-5 decompression and posterior instrumented fusion for bilateral L5 radiculopathy. Overall she is doing well. Prior to surgery she had bilateral extremity pain and paresthesias. She also has a low back pain and subjective lower extremity weakness. Today, she reports no significant back or lower extremity pain. She does report occasional tightness in her back but this is very manageable. She is working with physical therapy 1 time per week. She only takes Celebrex as needed for pain. 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 She has no issues with her incision. Exam: General- conversant, alert, no acute distress Gait-normal, nonantalgic, no assistive device, able to toe walk, heel walk and perform tandem gait Inspection- incision well-healed without evidence of erythema, tenderness to palpation or drainage Motor- 5 out of 5 bilaterally in all major motors degrees of the lower extremities Sensory-sensation intact to light touch and symmetric in all major distribution of the lower extremities Bilateral PT pulses palpable, feet warm and well-perfused Imaging: On personal review of the radiographs of the lumbar spine, there is evidence of a leanne/screw fusion construct at L4-5 with no hardware complication and evidence of interval bony fusion.' Assessment/Plan: Patient is now 2 months status post an L4-5 decompression and posterior instrumented fusion for bilateral L5 radiculopathy. Overall she is doing very well. Her preoperative symptoms have improved significantly and largely resolved. She has no new deficits. She is working with physical therapy and has been making progress. 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 We discussed that given her overall improvement, she could return to work on March 29 without any significant restrictions, though recommended no heavy lifting. She will follow-up in 12 weeks with repeat x-rays of the lumbar spine (AP, lateral). Patient understood this plan as described above, all questions were answered. Plan: 1. Continue physical therapy 2. May return to work 03/29/22 3. Follow-up 12 weeks AP and lateral lumbar views. Sincerely, Kiara Sheth MD Orthopaedic Surgery 03/27/2022 Spine Center Response Trends Patient-reported scores: myD-H Spine Questionnaire responses 10/10/2021 Oswestry Disability Index (Range: 0-100) 52 (Severe disability) PROMIS-10 Physical Health Score 29.6 PROMIS-10 Mental Health Score 43.5 * Charly Wilkins MD - 03/27/2022 1:00 PM EST Images from the original note were not included. [facility] MD MS Comfort Torres, CLOTH WINDER MACHINE OPERATOR [address] [place] [address] Comfort Urban APRN [address] / [facility] [address] Dear Colleagues, I had the pleasure of seeing this patient at the [facility] @ [facility] for surgical evaluation. Procedure: Posterior lumbar decompression fusion L4-5 01/05/2022. Unable to place a TLIF. ?? Diagnosis: 1. 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 ??Correction to 4 mm on extension. 2. ??Bilateral L5 radiculopathy as well as back pain. 3. ??Obesity BMI 41 4. ??Medical issues including cardiology, neurology.?Hemoglobin A1c 5.2 ?? First postoperative visit: Doing well. Sutures to stay in. Get a nursing visit for removal. X-rays consistent with the surgical intervention. Physical therapy she can continue with her VNA at home and will start outpatient once VNA leaves. She had a follow-up with neurology and cardiology. Overall doing well. Second postoperative visit 03/27/2022: Patient doing well. No significant leg pain. Imaging: Based on my independent interpretation x-rays show the hardware in good position. These are compared to the prior imaging from 01/23/2022. Plan: 1. Follow-up in 12 weeks. 2. Return to work 03/29/2022 no restrictions. Sincerely, Charly Wilkins MD [facility] Community Health Agent - Orthopedic Spine Surgery Revenue Audit Clerk - Department of Orthopedic Surgery / [employer] Outside Dealer Sales Representative - [facility] 04/02/2022 Spine Center Response Trends Patient-reported scores: myD-H Spine Questionnaire responses 10/10/2021 Oswestry Disability Index (Range: 0-100) 52 (Severe disability) PROMIS-10 Physical Health Score 29.6 PROMIS-10 Mental Health Score 43.5 documented in this encounter Plan of Treatment Upcoming Encounters Date Type Department Care Team (Late st Contact Info) Description 12/24/2023 10:00 AM EDT Office [place] [phone] Tereso Mohan MD [facility] [place] [address] 12/24/2023 10:30 AM EDT Appointment XRay at [address] [place] [phone] Shelby Aaron [facility] [place] [address] 12/24/2023 11:30 AM EDT Office Visit [place] [phone] Shelby Aaron APRN [facility] [place] [address] documented as of this encounter Results * XR Lumbar Spine 2 Or 3 Views (Generic) (06/19/2022 12:13 PM EDT) Anatomical Region Laterality Modality L-spine N/A Digital Radiogra phy Impressions 06/19/2022 1:59 PM EDT 1. Status post L4-5 posterior spinal fusion with intact fixation and unchanged alignment. There is minimal fine sub-2 mm lucency about the pedicle screws, not entirely specific. Suggest close attention on follow-up. 2. No fracture. Thank you for letting us participate in the care of this patient. ??If you are a health care provider and have any questions regarding this report, please contact the number below. ??For patients who have questions please contact the health animal care attendant that requested your imaging first. ? Electronically signed by: MINNIE TAMEZ MD, [facility] ??([phone]), at 06/19/2022 1:59 PM Narrative 06/19/2022 1:59 PM EDT EXAMINATION: XR LUMBAR SPINE 2 OR 3 VIEWS (GENERIC) CLINICAL HISTORY: s/p lumbar fusion. AP LAT Lumbar views Hardware check TECHNIQUE: 2 views of the lumbar spine COMPARISON: Lumbar spine radiographs March 27, 2022 FINDINGS: Status post L4-5 posterior spinal fusion with intact paired leanne and pedicle screw fixation. Minimal fine sub-2 mm lucency about portions of the pedicle screws slightly more prominent at the L5 level. Unchanged alignment. Unchanged grade 1 anterolisthesis at L4-5. No additional subluxation. Vertebral body heights are maintained. Mild disc loss at L4-5, unchanged. Intervertebral disc heights otherwise maintained. No acute fracture. Procedure Note Minnie Tamez MD - 06/19/2022 EXAMINATION: XR LUMBAR SPINE 2 OR 3 VIEWS (GENERIC) CLINICAL HISTORY: s/p lumbar fusion. AP LAT Lumbar views Hardware check TECHNIQUE: 2 views of the lumbar spine COMPARISON: Lumbar spine radiographs March 27, 2022 FINDINGS: Status post L4-5 posterior spinal fusion with intact paired leanne andpedicle screw fixation. Minimal fine sub-2 mm lucency about portions of thepedicle screws slightly more prominent at the L5 level. Unchanged alignment.Unchanged grade 1 anterolisthesis at L4-5. No additional subluxation. Vertebralbody heights are maintained. Mild disc loss at L4-5, unchanged. Intervertebraldisc heights otherwise maintained. No acute fracture. IMPRESSION 1. Status post L4-5 posterior spinal fusion with intact fixation andunchanged alignment. There is minimal fine sub-2 mm lucency about the pediclescrews, not entirely specific. Suggest close attention on follow-up. 2. No fracture. Thank you for letting us participate in the care of this patient. If youare a health care provider and have any questions regarding this report,please contact the number below. For patients who have questions please contactthe health animal care attendant that requested your imaging first. 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
--- OUTSIDE RECORDS SUMMARY | 2023-11-16 14:12 | XMS_ITS | Encounter Summary ---
Author Organization [facility] [place] [address] Care Team Providers Care Samples And Repairs Preparer Name Role Phone Comfort Urban APRN Primary Care Provider Reason for Visit * Reason Comments Follow-up Encounter Details Date Type Department Care Team (Late st Contact Info) Description 02/09/2022 2:40 PM EST Office Visit Obstetrics [place] [address] Domi Arroyo MD [facility] DR OBSTETRICS [place] [address] History of ovarian cyst Social History Tobacco Use Types Packs/Day Years [...] Sign Reading Time Taken Comments Blood Pressure 141/82 02/09/2022 2:26 PM EST Pulse 79 02/09/2022 2:26 PM EST Temperature 36.6 ??C (97.9 ??F) 02/09/2022 2:26 PM ES T Respiratory Rate 24 02/09/2022 2:26 PM EST Oxygen Saturation 100% 02/09/2022 2:26 PM EST Inhaled Oxygen Concentration - - Weight 94.3 kg (207 lb 14.4 oz) 02/09/2022 2:26 PM EST Height 154.9 cm (5' 1) 02/09/2022 2:26 PM EST Body Mass Index 39.28 02/09/2022 2:26 PM EST documented in this encounter Progress Notes * Domi Arroyo MD - 02/09/2022 2:40 PM EST Gynecology Follow-up Office Visit Patient Name: Bessie Garber Date of : 1985 Primary Care Provider: Comfort Urban APRN, Date of Visit: 02/09/2022 Referred by: No referring provider defined for this encounter. HPI: Bessie Garber is a 36 y.o.. female presenting from US today for follow-up after admission to Neurology service 11/2021 for seizure monitoring in setting of hx of szr since 2014 with incidentally found, asymptomatic pelvic cyst on CT scan. At that time, CT (11/09/2021) notable for the following: Reproductive organs: Left ovarian cystic lesion measuring 5.9 x 5.9 x 6.5 cm measuring fluid attenuation with question of crescentic soft tissue component inferior versus layering debris. Right ovarian follicles. The uterus is normal. Nabothian cysts in the cervix. Today, pt states the following: - Pt states she has no pelvic pain. She endorses monthly q28 days periods lasting 2 days. very easy. Patient's last menstrual period was 01/12/2022. She has no concerns. - Pt endorses some fecal incontinence and urinary incontinence. She states she also needs Pap smear. She would like to do this at her PCP - Comfort Urban, DRUM TENDER - [facility]. - Pt states she is s/p Back surgery Nov 4 - spinal fusion. She feels that she is recovering well from this and has f/u with her surgeon scheduled. Chief Complaint Patient presents with ??? Follow-up Patient Active Problem List Diagnosis Code ??? CIS - ASD, S/P repair ??? CIS - Asthma ??? CIS - Depression ??? CIS - Entered not Verified ??? CIS - Hx CHTN ??? Seizures R56.9 ??? s/p L4-5 decompression, PSIF Dr. Wilkins M54.16 ??? Seizure-like activity R56.9 ??? Morbid obesity with BMI of 40.0-44.9, adult E66.01, Z68.41 OB Hx: OB History 4 Para 2 Term 1 1 AB 2 Living SAB IAB 2 Ectopic Multiple Live Births # Outc Date GA Lbr Chris/2nd Wgt Sex Del Anes PTL Lv 1 IAB 2000 2 2007 Vag-Spont Comments: induced for severe preE at 36w4d with tears 3 Term 2009 Vag-Spont Comments: PROM, tears, gHTN 4 IAB 2020 OB History 4 Para 2 Term 1 1 AB 2 Living SAB IAB 2 Ectopic Multiple Live Births Obstetric Comments Two first trimester D+C Patient Active Problem List Diagnosis Code ??? CIS - ASD, S/P repair ??? CIS - Asthma ??? CIS - Depression ??? CIS - Entered not Verified ??? CIS - Hx CHTN ??? Seizures R56.9 ??? s/p L4-5 decompression, PSIF Dr. Wilkins M54.16 ??? Seizure-like activity R56.9 ??? Morbid obesity with BMI of 40.0-44.9, adult E66.01, Z68.41 Past medications, allergies, medical, surgical, family and social history reviewed and up to date HOME MEDS Prior to Admission medications Medication Sig Start Date End Date Taking? Authorizing Provider acetaminophen (Tylenol) 500 mg Tablet Take 2 tablets by mouth every 8 hours. Continue the Tylenol around the clock for 10 days after surgery, (01/15/22). Then may take if needed per package insert. Do not take more than 3,000 mg of Tylenol in 24 hours. 01/08/22 Yes Grazyna Grossman APRN lidocaine (Lidoderm) 5% Adhesive Patch, Medicated Apply 1 patch onto the skin daily. (leave on for 12 hours and remove for 12 hours) 11/17/21 Yes Cassie Garcia MD cloBAZam (Onfi) 10 mg Tablet Take 1 pill in AM and 2 pills in PM 09/19/21 Yes Tereso Mohan MD cholecalciferol, Vitamin D3, 50 mcg (2,000 unit) Tablet Take 1 tablet by mouth daily. 04/10/21 Yes Troy Montoya MD ProAir HFA 90 mcg/actuation HFA Aerosol Inhaler INL 1 TO 2 PFS PO Q 4 TO 6 H PRN 04/20/19 Yes PROVIDER, HISTORICAL ARIPiprazole (ABILIFY) 2 mg Tablet Take 2 mg by mouth daily. 02/03/18 Yes PROVIDER, HISTORICAL citalopram (CELEXA) 20 mg Tablet Take 40 mg by mouth daily. 02/03/18 Yes PROVIDER, HISTORICAL UNABLE TO FIND Take by mouth as needed. Med Name: CBD oil Yes PROVIDER, HISTORICAL oxyCODONE (Roxicodone) 5 mg Tablet Take 1 tablet by mouth every 12 hours as needed for Pain. Take 1tab in the am, 1 tab at bedtime, use this as wean. Patient not taking: Reported on 02/09/2022 01/29/22 Charly Wilkins MD cyclobenzaprine (Flexeril) 5 mg Tablet Take 1 tablet by mouth nightly as needed for Muscle spasms. Patient not taking: Reported on 02/09/2022 01/15/22 Charly Wilkins MD polyethylene glycoL (Miralax) 17 gram Powder in Packet Take 17 g by mouth 2 times daily. Patient not taking: Reported on 02/09/2022 01/08/22 Grazyna Grossman APRN senna-docusate (Pericolace) 8.6-50 mg Tablet Take 2 tablets by mouth 2 times daily. Patient not taking: Reported on 02/09/2022 01/08/22 Grazyna Grossman APRN Outpatient Medications Marked as Taking for the 02/09/22 encounter (Office Visit) with Domi Arroyo MD Medication Sig Dispense Refill ??? acetaminophen (Tylenol) 500 mg Tablet Take 2 tablets by mouth every 8 hours. Continue the Tylenol around the clock for 10 days after surgery, (01/15/22). Then may take if needed per package insert. Do not take more than 3,000 mg of Tylenol in 24 hours. ??? lidocaine (Lidoderm) 5% Adhesive Patch, Medicated Apply 1 patch onto the skin daily. (leave on for 12 hours and remove for 12 hours) 30 patch 0 ??? cloBAZam (Onfi) 10 mg Tablet Take [...] mouth as needed. Med Name: CBD oil ALLERGIES No Known Allergies MEDICAL HISTORY Past Medical History: Diagnosis Date ??? s/p L4-5 decompression, PSIF Dr. Wilkins 01/04/2020 Added automatically from request for surgery [id number] SURGICAL HISTORY Past Surgical History: Procedure Laterality Date ??? PRO ALLOGRAFT FOR SPINE SURGERY ONLY MORSELIZED Bilateral 01/05/2022 ALLOGRAFT FOR SPINE SURGERY ONLY; MORSELIZED (WRVU *) performed by Charly Wilkins MD at [facility] MAIN OR ??? PRO ARTHRODESIS COMBINED TECHNIQUE 1 INTERSPACE LUMBAR Bilateral 01/05/2022 ARTHRODESIS, COMB. POST OR POSTEROLAT W/LAMI &/OR DISC SINGLE INTERSPACE; LUMBAR (WRVU 27.75) performed by Charly Wilkins MD at [facility] MAIN OR ??? PRO ARTHRODESIS POSTERIOR/PSTLAT TECHNIQUE 1 INTERSPACE LUMBAR Bilateral 01/05/2022 ARTHRODESIS, LUMBAR SPINE, SINGLE INTERSPACE (WRVU 23.53) [facility]?? PRO AUTOGRAFT SPINE SURGERY LOCAL FROM SAME INCISION Bilateral 01/05/2022 AUTOGRAFT FOR SPINE SURGERY ONLY, SAME INCISION (WRVU *) performed by Charly Wilkins MD at [facility] MAIN OR ??? PRO INJECTION DX/THER SBST INTRLMNR LMBR/SAC W/IMG GDN Midline 05/18/2021 INJECTION, EPIDURAL, LUMBAR OR SACRAL (CAUDAL), WITH IMAGING GUIDANCE (WRVU 1.8) performed by Sarah Munguia MD at [facility] PAIN MGMT MSO ??? PRO LAMINEC/FACETECT/FORAMIN, LUMBAR 1 SEG Bilateral 01/05/2022 LAMINECTOMY, FACETECTOMY & FORAMINOTOMY,LUMBAR, ONE LEVEL (WRVU 15.37) performed by Charly Wilkins MD at [facility] MAIN OR ??? PRO POSTERIOR NON-SEGMENTAL INSTRUMENTATION Bilateral 01/05/2022 POSTERIOR SPINAL NON-SEGMENTAL INST.(ONE SPACE) (WRVU 12.52) performed by Charly Wilkins MD at [facility] MAIN OR ??? PRO STEROTACTIC CPTR ASSTD PX SPINAL Bilateral 01/05/2022 STEREOTACTIC COMPUTER-ASSTD NAVIGATIONAL SPINAL (WRVU 3.75) performed by Charly Wilkins MD at [facility] MAIN OR FAMILY HISTORY family history is not on file. SOCIAL HISTORY Social History Socioeconomic History ??? Marital status: [...] on file Housing Stability: Not on file OBJECTIVE: Patient Vitals for the past 24 hrs: Temp Pulse Resp BP SpO2 02/09/22 1426 36.6 ??C (97.9 ??F) 79 24 141/82 100 % Wt Readings from Last 3 Encounters: 02/09/22 94.3 kg (207 lb 14.4 oz) 01/23/22 96.6 kg (213 lb) 01/05/22 98.9 kg (218 lb) Body mass index is 39.28 kg/m??. Physical Examination Gen: well appearing female in no acute distress Neuro: clear, fluent, logical speech. Ambulates slowly (s/p spinal surgery), but w/o difficulty. CNgrossly intact. Psychiatric: She has a normal mood and affect. Her behavior is normal. Thought content normal. Pelvic Exam: deferred per pt Lab/Radiology Results: Imaging US Transvaginal Non OB Narrative: Gynecological Report (Signed Final 02/09/2022 02:45 pm) PATIENT INFO: ID #: [id number] : [birth year] (36 yrs)(F) Name: BESSIE GARBER Visit Date: 02/09/2022 01:58 pm PERFORMED BY: Performed By: Teresa Taveras RDMS Attending: Deonte Lake MD Resident: Oscar Narvaez MD Referred By: ELAINA COLBERT Location: [place] SERVICE(S) PROVIDED: UTV - Transvaginal - [id number] UPEL - Pelvis Complete - [id number] INDICATIONS: 36yo female f/u 5cm left adnexal cyst; History of: Tubes tied TECHNIQUE/SCAN QUALITY: Technique: Transducer ID#: -------- HISTORY: -------- Age: 36 ------- UTERUS: ------- Uterus: Visualized Position: Anteverted Size (cm) L: 10.1 W: 6.2 H: 4.8 ENDOMETRIUM: Endometrium: Normal appearance Thickness(mm): 5.57 RIGHT OVARY: Status: Visualized Size (cm) L: 2.4 W: 2.8 H: 1.9 Vol (ml): 6.7 Morphology: Normal appearance Comment: best seen transabdominal LEFT OVARY: Status: Visualized Size (cm) L: 2.8 W: 2.3 H: 2.2 Vol (ml): 7.4 Morphology: Normal appearance Comment: Best seen transabominal Impression: 1. Interval resolution of left-sided umbilical ovarian cyst. Normal bilateral ovaries. 2. Anteverted, normal-appearing uterus. I have personally reviewed the image(s) and the resident's interpretation and agree with the findings, Deonte Lake MD at 02/09/2022 2:39 PM Thank you for letting us participate in the care of this patient. If you are a health care provider and have any questions regarding this report, please contact the number above. For patients who have questions, please contact the health personal care attendant that requested your imaging first. Deonte Lake, Staff Physician Electronically Signed Final Report 02/09/2022 02:45 pm Assessment/Plan: Bessie Garber is a 36 y.o.. female presenting from US today for follow-up of an incidentally found 5.9 x 5.9 x 6.5 cm left ovarian cystic lesion found on 11/09/2021 CT. I reviewed the imaging results w/ the patient, discussing resolution of the cystic lesion as seen on ultrasound imaging. Pt has been asymptomatic and reports regular menses. She thinks she is due for her Pap but declines pap today as she would like to f/u with her PCP. She also had reported urinary incontinence and fecal incontinence, but today declined exam or referral to Urogynecology, planning to f/u with her PCP. (PCP - Comfort Urban, SURGICAL CODER- [facility].) Discussed w/ pt given resolution of cyst,no additional f/u indicated. As pt declined further gynecology evaluation with preference to f/u with PCP, pt encouraged to obtain pap and routine obstetrician gynecologist care ( prevention, etc) from PCP but can call back any time if she would like to establish care with us. Patient in agreement. Patient plan and care was discussed with attending automatic line set up mechanic physician, Dr. Copeland. Domi Arroyo MD PGY3 02/09/2022 * Pablo Copeland MD - 02/09/2022 2:40 PM EST The case was discussed at the time of the visit with Dr. Arroyo. I have reviewed the history, physical exam, assessment and plan and I agree with them as documented. Pablo Copeland MD 02/18/2022 12:32 PM documented in this encounter Plan of Treatment Upcoming Encounters Date Type Department Care Team (Late st Contact Info) Description 12/24/2023 10:00 AM EDT [place] [address] Tereso Mohan MD [facility] [place] [address] 12/24/2023 10:30 AM EDT Appointment XRay at [address] [place] [phone] Shelby Aaron APRN [facility] PAIN MANAGEMENT [place] [address] 12/24/2023 11:30 AM EDT Office Visit [place] [address] Shelby Aaron APRN [facility] [place] [address] documented as of this encounter Visit Diagnoses Diagnosis History of ovarian cyst Personal history of other genital system and obstetric disorders documented in this encounter Care Teams Samples And Repairs Preparer Relationship Specialty Start Date End Date Comfort Urban APRN [address] [facility] [place] [address] PCP - General Family Medicine 07/19/17 03/11/23 documented as of this encounter
--- OUTSIDE RECORDS SUMMARY | 2023-11-16 14:12 | XMS_ITS | Encounter Summary ---
Author Organization Formerly [facility] [place] [address] Care Team Providers Care Mending Carrier Name Role Phone Comfort Urban APRN Primary Care Provider [phone] Encounter Details Date Type Department Care Team (Late st Contact Info) Description 07/05/2022 Ancillary Procedure Radiology Library at [facility] [place] [phone] Comfort Urban APRN [address] [place] [address] Social History Tobacco Use Types Packs/Day Years [...] 10:00 AM EDT Office Visit Neurology at [address] Tereso Mohan MD [facility] [place] [address] 12/24/2023 10:30 AM EDT Appointment XRay at [address] [place] [phone] Shelby Aaron CERTIFIED SURGICAL TECHNICIAN [facility] [place] [address] 12/24/2023 11:30 AM EDT Office Visit [facility] Sp[facility] Center at [place] [phone] Shelby Aaron APRN [facility] [place] [address] documented as of this encounter Procedures Procedure Name Priority Date/Time Associated Diagnosis Comments FILM LIBRARY STORAGE ONLY CT ABDOMEN AND PELVIS Routine 07/05/2022 12:00 AM EDT documented in this encounter Results * Film Library- Storage Only CT Abdomen & Pelvis (07/05/2022 12:00 AM EDT) Narrative RAD - 07/06/2022 9:38 AM EDT This exam is auto-finalizing. It's purpose is for storage only. Comfort Urban APRN Juan A FILM LIBRARY ORD ERABLES [place], [place] documented in this encounter Visit Diagnoses Not on filedocumented in this encounter Care Teams Mending Carrier Relationship Specialty Start Date End Date Comfort Urban APRN [address] [place] [address] PCP - General Family Medicine 07/19/17 03/11/23 documented as of this encounter
--- OUTSIDE RECORDS SUMMARY | 2023-11-16 14:12 | XMS_ITS | Encounter Summary ---
Author Organization [facility] Address [facility] [place] [address] Care Team Providers Care Instruments Sales Representative Name Role Phone Comfort Urban APRN Primary Care Provider [phone] Encounter Details Date Type Department Care Team (Latest Contact Info) Description 06/19/2022 Travel Social History Tobacco Use Types Packs/Day [...] slept in a assisted (including now)? No 03/13/2022 Sex and Gender Information Value Date Recorded Sex Assigned at Not on file Gender Identity Not on file Sexual Orientation Not on file documented as of this encounter Plan of Treatment Upcoming Encounters Date Type Department Care Team (Late st Contact Info) Description 12/24/2023 10:00 AM EDT [place] [address] Tereso Mohan MD [facility] [address] [place] [address] 12/24/2023 10:30 AM EDT Appointment XRay at [address] [place] [phone] Shelby Aaron DIE SINKING MACHINE OPERATOR [facility] [place] [address] 12/24/2023 11:30 AM EDT Office Visit Pain and Spine Center at [place] [phone] Shelby aAron DIE SINKING MACHINE OPERATOR [facility] [place] [address] documented as of this encounter Visit Diagnoses Not on filedocumented in this encounter Care Teams Instruments Sales Representative Relationship Specialty Start Date End Date Comfort Urban APRN [address] [place] [address] PCP - General Family Medicine 07/19/17 03/11/23 documented as of this encounter
--- OUTSIDE RECORDS SUMMARY | 2023-11-16 14:12 | XMS_ITS | Encounter Summary ---
Author Organization [facility] [place] [address] Care Team Providers Care Crusher Wet Ground Mica Name Role Phone Comfort Urban SELVIN Primary Care Provider [phone] Encounter Details Date Type Department Care Team (Latest Contact Info) Description 01/05/2022 Travel Social History Tobacco Use Types Packs/Day [...] 10:00 AM EDT [place] [address] Tereso Mohan MD [facility] [place] [address] 12/24/2023 10:30 AM EDT Appointment XRay at [address] [place] [phone] Shelby Aaron APRN [facility] [place] [address] 12/24/2023 11:30 AM EDT Office Visit [place] [address] Shelby Aaron APRN [facility] [place] [address] documented as of this encounter Visit Diagnoses Not on filedocumented in this encounter Care Teams Crusher Wet Ground Mica Relationship Specialty Start Date End Date Comfort Urban APRN [address] [place] [address] PCP - General Family Medicine 07/19/17 03/11/23 documented as of this encounter
--- OUTSIDE RECORDS SUMMARY | 2023-11-16 14:12 | XMS_ITS | Encounter Summary ---
Author Organization [facility]ly [facility] Address [facility] [place] [address] Care Team Providers Care Magnetic Prospecting Supervisor Name Role Phone Comfort Urban APRN Primary Care Provider [phone] Reason for Visit * Reason Onset Date Comments Appointment 07/17/2022 Encounter Details Date Type Department Care Team (Late st Contact Info) Description 07/17/2022 [place] [address] Tereso Mohan MD [facility] [place] [address] Appointment Social History Tobacco Use Types Packs/Day Years [...] encounter Miscellaneous Notes * Telephone Encounter - Gabriella Farmer - 07/17/2022 12:58 PM EDT Patient scheduled for 07/25/[address] Mohan. * Telephone Encounter - Gabriella Farmer - 07/17/2022 12:50 PM EDT Copied from [facility] #[id number]. Topic: Specialty Dept CRMs - Triage >> July 16, 2022 4:39 PM Sharmaine Liu wrote: Triage Message Specialist: Tereso Mohan MD Relationship (if other than patient-full name): self Symptom: tingling getting worse Has patient experienced symptom before yes If patient has experienced symptom before, when was the last time this occurred ongoing Is patient currently having symptom yes When did symptom begin this past week Additional Comments: Patient is calling to state that the tingling that she has seen the provider for is getting worse and is now going into her hand. Patient would like to see the provider if possible. Please call to advise. * Telephone Encounter - Gabriella Farmre - 07/17/2022 12:50 PM EDT Copied from [facility] #[id number]. Topic: Specialty Dept CRMs - Triage >> July 16, 2022 4:39 PM Sharmaine Liu wrote: Triage Message Specialist: Tereso Mohan MD Relationship (if other than patient-full name): self Symptom: tingling getting worse Has patient experienced symptom before yes If patient has experienced symptom before, when was the last time this occurred ongoing Is patient currently having symptom yes When did symptom begin this past week Additional Comments: Patient is calling to state that the tingling that she has seen the provider for is getting worse and is now going into her hand. Patient would like to see the provider if possible. Please call to advise. documented in this encounter Plan of Treatment Upcoming Encounters Date Type Department Care Team (Late st Contact Info) Description 12/24/2023 10:00 AM EDT Office [place] [phone] Tereso Mohan MD [facility] [place] [address] 12/24/2023 10:30 AM EDT Appointment XRay at [address] [place] [phone] Shelby Aaron APRN [facility] [place] [address] 12/24/2023 11:30 AM EDT Office Visit [facility] [place] [phone] Shelby Aaron APRN [facility] [place] [address] documented as of this encounter Visit Diagnoses Not on filedocumented in this encounter Care Teams Magnetic Prospecting Supervisor Relationship Specialty Start Date End Date Comfort Urban, SELVIN [address] [place] [address] PCP - General Family Medicine 07/19/17 03/11/23 documented as of this encounter
--- OUTSIDE RECORDS SUMMARY | 2023-11-16 14:12 | XMS_ITS | Encounter Summary ---
Author Organization [facility] [facility] [place] [address] Care Team Providers Care Alignment Specialist Name Role Phone Comfort Urban APRN Primary Care Provider [phone] Encounter Details Date Type Department Care Team (Late st Contact Info) Description 07/27/2022 Telephone [place] [phone] Tereso Mohan MD [facility] [place] [address] Social History Tobacco Use Types Packs/Day Years [...] encounter Miscellaneous Notes * Telephone Encounter - Elizabeth Ledesma RN - 07/27/2022 11:08 AM EDT Spoke with patient. Made aware that per Dr. Mohan: Please tell her that I think it is quite reasonable for her to get a cortisone shot if that can be done locally. ??She should also try the new splints that I referred her for. Verbalized understanding. * Telephone Encounter - Elizabeth Ledesma RN - 07/27/2022 8:59 AM EDT Report forwarded to Dr. Mohan for recommendation. * Telephone Encounter - Elizabeth Ledesma RN - 07/27/2022 8:57 AM EDT Copied from [facility] #[id number]. Topic: Specialty Dept CRMs - Generic Call >> July 26, 2022 4:34 PM Jeri Villalta wrote: Specialist: Tereso Mohan MD Relationship (if other than patient-full name): Reason for Call: Bessie calling in states that she was recently diagnosed with carpal tunnel syndrome and she is wondering if Dr. Mohan thinks that it would be a good idea for her to do cortisone shots. Please call Bessie back to discuss. documented in this encounter Plan of Treatment Upcoming Encounters Date Type Department Care Team (Late st Contact Info) Description 12/24/2023 10:00 AM EDT Office Visit Neurology at [place] [phone] Tereso Mohan MD [facility] [place] [place] [address] 12/24/2023 10:30 AM EDT Appointment XRay at [address] [place] [address] Shelby Aaron [facility] [place] [address] 12/24/2023 11:30 AM EDT Office Visit [facility] [place] [address] Shelby Aaron [facility] [place] [address] documented as of this encounter Visit Diagnoses Not on filedocumented in this encounter Care Teams Alignment Specialist Relationship Specialty Start Date End Date Comfort Urban APRN [address] [place] [address] PCP - General Family Medicine 07/19/17 03/11/23 documented as of this encounter
--- OUTSIDE RECORDS SUMMARY | 2023-11-16 14:12 | XMS_ITS | Encounter Summary ---
Author Organization [facility] [place] [address] Care Team Providers Care Wheelchair Rental Clerk Name Role Phone Comfort Urban SELVIN Primary Care Provider [phone] Encounter Details Date Type Department Care Team (Latest Contact Info) Description 02/09/2022 Travel Social History Tobacco Use Types Packs/Day [...] 10:00 AM EDT [place] [address] Tereso Mohan MD [facility] [place] [address] 12/24/2023 10:30 AM EDT Appointment XRay at [address] [place] [phone] Shelby Aaron APRN [facility] [place] [address] 12/24/2023 11:30 AM EDT Office Visit [place] [address] Shelby Aaron APRN [facility] [place] [address] documented as of this encounter Visit Diagnoses Not on filedocumented in this encounter Care Teams Wheelchair Rental Clerk Relationship Specialty Start Date End Date Comfort Urban APRN [address] [place] [address] PCP - General Family Medicine 07/19/17 03/11/23 documented as of this encounter
--- OUTSIDE RECORDS SUMMARY | 2023-11-16 14:12 | XMS_ITS | Encounter Summary ---
Author Organization [facility] Address [facility] [place] [address] Care Team Providers Care Cross Tie Tram Loader Name Role Phone Comfort Urban APRN Primary Care Provider [phone] Encounter Details Date Type Department Care Team (Latest Contact Info) Description 07/25/2022 Travel Social History Tobacco Use Types Packs/Day [...] 10:00 AM EDT Office [place] [address] Tereso Mohan MD [facility] [place] [address] 12/24/2023 10:30 AM EDT Appointment XRay at [address] [place] [phone] Shelby Aaron FORMULA TECHNICIAN [facility] [place] [address] 12/24/2023 11:30 AM EDT Office Visit [facility] at [place] [phone] Shelby Araon FORMULA TECHNICIAN [facility] [place] [address] documented as of this encounter Visit Diagnoses Not on filedocumented in this encounter Care Teams Cross Tie Tram Loader Relationship Specialty Start Date End Date Comfort Urban APRN [address] [place] [address] PCP - General Family Medicine 07/19/17 03/11/23 documented as of this encounter
--- OUTSIDE RECORDS SUMMARY | 2023-11-16 14:12 | XMS_ITS | Encounter Summary ---
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 No 03/13/2022 Sex and Gender Information Value Date Recorded Sex Assigned at Not on file Gender Identity Not on file Sexual Orientation Not on file documented as of this encounter Medications at Time of Discharge Medication Sig Dispensed Refills Start Date End Date methylcellulose (CITRUCEL ORAL) Take by mouth as [...] mouth as needed. Med Name: CBD oil Butalbital-Acetaminoph en-Caff (Fioricet) 50-300-40 mg capsule as needed. 04/16/2022 023 celecoxib (CeleBREX) 100 mg Capsule Take 1 capsule by mouth 2 times daily. 60 capsule 5 03/13/2022 09/17/2022 cloBAZam (Onfi) 10 mg Tablet Take 1 pill in AM and 2 pills in PM 90 tablet 5 03/13/2022 10/04/2022 cyclobenzaprine (Flexeril) 5 mg Tablet Take 1 tablet by mouth nightly as needed for Muscle spasms. 15 tablet 01/15/2022 07/25/2022 acetaminophen (Tylenol) 500 mg Tablet Take 2 tablets by mouth every 8 hours. Continue the Tylenol around the clock for 10 days after surgery, (01/15/22). Then may take if needed per package insert. Do not take more than 3,000 mg of Tylenol in 24 hours. 01/08/2022 07/25/2022 citalopram (CELEXA) 20 mg Tablet Take 40 mg by mouth daily. 0 02/03/2018 03/12/2023 documented as of this encounter Plan of Treatment Upcoming Encounters Date Type Department Care Team (Late st Contact Info) Description 12/24/2023 10:00 AM EDT Office [place] [address] Tereso Mohan MD [facility] [place] [place] [address] 12/24/2023 10:30 AM EDT Appointment XRay at [address] [place] [address] Shelby Aaron OPERATIONS EXECUTIVE [facility] [place] [address] 12/24/2023 11:30 AM EDT Office Visit [facility] [place] [address] Shelby Aaron APRN [facility] [place] [address] documented as of this encounter Procedures Procedure Name Priority Date/Time Associated Diagnosis Comments XR LUMBAR SPINE 2 OR 3 VIEWS Routine 06/19/2022 12:13 PM EDT Spondylolisthesis at L4-L5 level Congenital anomalies of spine documented in this encounter Results * XR [...] have questions please contact the health career technical supervisor that requested your imaging first. ? Electronically signed by: MINNIE TAMEZ MD, [facility] ??([phone]), at 06/19/2022 1:59 PM Narrative 06/19/2022 1:59 [...] who have questions please contactthe health career technical supervisor that requested your imaging first. 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
--- OUTSIDE RECORDS SUMMARY | 2023-11-16 14:12 | XMS_ITS | Encounter Summary ---
Author Organization [facility] Address [facility] [place] [address] Care Team Providers Care Cheese Production Supervisor Name Role Phone Comfort Urban APRN Primary Care Provider [phone] Encounter Details Date Type Department Care Team (Late st Contact Info) Description 09/17/2022 9:30 AM EDT [place] [address] Tereso Mohan MD [facility] [place] [address] Seizure-like activity Social History Tobacco Use Types Packs/Day Years [...] Sign Reading Time Taken Comments Blood Pressure 146/89 09/17/2022 9:45 AM EDT Pulse 75 09/17/2022 9:45 AM EDT Temperature - - Respiratory Rate - - Oxygen Saturation - - Inhaled Oxygen Concentration - - Weight 93 kg (205 lb) 09/17/2022 9:45 AM EDT Height 154.9 cm (5' 1) 09/17/2022 9:45 AM EDT Body Mass Index 38.73 09/17/2022 9:45 AM EDT documented in this encounter Patient Instructions * Patient Instructions* Tereso Mohan MD - 09/17/2022 9:30 AM EDT I think you are doing reasonably well Seizures appear to be controlled, you should stay on the clobazam. I appreciate that you are having headaches. For prevention please try a combination of aspirin 81 mg daily, magnesium 250 mg twice a day, and riboflavin 200 mg twice a day. I sent in the prescriptions For acute treatment of headaches you may try Naprosyn 500 mg twice a day as needed. This can be used for other aches and pains as well. You should discontinue the Celebrex do not use ibuprofen along with Naprosyn. You may use one of the Please let me know if this is not working for you. I would like to see you back in 3 months. If your headaches are not better, I think we should replace the gabapentin with topiramate Tereso Mohan MD Professor of neurology, [employer] at [facility] Department of Neurology, [address] Pager: [phone], #[phone] Email: [email or web address] documented in this encounter Progress Notes * Renetta Jones MD - 09/17/2022 9:30 AM EDT Neurology clinic note Chief complaint: [...] None 2. EEG: - Routine EEG:Done at [facility] 05/05/18: Normal study. In 2019 when we [...] that led to her being taken to [facility] emergency room. She had bitten the side of her tongue quite badly, for the first time. She was discharged from there without change in medication. She had another seizure at home and was taken to the emergency room at [facility] where she was held overnight. I [...] able to continue working full-time at the [employer]. As of 2020 she is doing quite well. She had one breakthrough convulsive seizure associated with missed doses of medication. She has had no other major medical problems. 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 She is having some mid [...] twice daily to 250, 500 mg at [facility]. There have been no additional events in [...] a good deal of lifting. Interval History: Patient states I'm having a lot of migraines that are affecting my work. They usually occur in the morning and she states that they are nastier than they used to be. She attributes their increased intensity to being taken off Depakote. They now occur 1-2x/week and occur in the morning when she wakes up. They are sometimes improved with caffeine or ibuprofen, but not Tylenol. Sometimes has double vision with the episodes as well as photo and phonosensitivity. The headaches are in the bilateral temporal regions. She also sees white spots in her vision during the episodes. She tries to drinka lot of water. Tylenol does ot help the pain. She will sit in her room with an icepack. She has recently run out of celebrex, so has been taking ibuprofen and aleve which help. She also experiences nausea and sometimes vomiting with the episodes. She also started magnesium 2 weeks ago for the headaches, fewer leg cramps on it. She has had no seizure activity since last visit. Her boyfriend is here and denies her having shaking episodes during sleep. She denies wetting the bed or waking with bit tongue or sore muscles. Review of Systems: Gen - no fevers, [...] not help Psych- mood has been good Past Medical History: Patient Active Problem List Diagnosis Seizures CIS - ASD, S/P repair CIS - Asthma CIS - Depression CIS - Hx CHTN 1.ASD s/p repair in childhood. 2. Asthma. [...] and developmental delay. Another daughter has migraine. Current Medications: Current Outpatient Medications Medication Sig Dispense Refill methylcellulose (CITRUCEL ORAL) Take by mouth as needed. celecoxib (CeleBREX) 100 mg Capsule Take 1 capsule by mouth 2 times daily. (Patient taking differently: Take 200 mg by mouth 2 times daily.) 60 capsule 5 cloBAZam (Onfi) 10 mg Tablet Take 1 pill in AM and 2 pills in PM 90 tablet 5 cholecalciferol, Vitamin D3, 50 mcg (2,000 unit) [...] Name: CBD oil cyclobenzaprine (Flexeril) 5 mg tablet Take 1 tablet by mouth 3 times daily as needed for Muscle spasms. 90 tablet 5 gabapentin (Neurontin) 300 mg capsule Take 1 capsule by mouth 2 times daily. 60 capsule 5 No current facility-administered medications for this visit. [...] Hoffmansbilaterally. Equivocal plantar reflex bilaterally. Cerebellar: Normal [id number]-[id number] with mild action tremor, normal fmde-jn-[id number], no dysdiadochokinesia. Gait: gait was wide-based, good heel and toe walking, poor tandem. Laboratory studies: Imaging: MRI brain was done in 2015 was unremarkable per patient MRI brain: 05/10/2018- No acute intracranial abnormality CT scan head- None MRI lumbar spine 2019 degenerative changes most prominent at L4-5 with foraminal stenosis bilaterally worse on the right EEG: Routine EEG:Done at [facility] 05/05/18: Normal study. Blood Tests: Blood tests [...] while we trial her on these supplements. We will also discontinue her celebrex, as this does not appear to be helping her joint pain. 3. The numbness in her hands appears [...] do not recommend surgery at this time. 4. Patient states her depression is well controlled with her current Abilify and Celexa medications. We will make no modifications. Renetta Jones PGY-2 Neurology Resident Department of Neurology [facility] Neurology Attending I saw and evaluated the [...] documented. Tereso Mohan MD Department [place] [address] Pager #[phone] Email: [email or web address] CC: Comfort Urban APRN documented in this encounter Plan of Treatment Upcoming Encounters Date Type Department Care Team (Late st Contact Info) Description 12/24/2023 10:00 AM EDT Office Visit Neurology at [place] [phone] Tereso Mohan MD [facility] [place] [address] 12/24/2023 10:30 AM EDT Appointment XRay at [address] [place] [phone] Shelby Aaron APRN [facility] [place] [address] 12/24/2023 11:30 AM EDT Office Visit [facility] at [place] [phone] Shelby Aaron APRN [facility] [place] [address] documented as of this encounter Visit Diagnoses Diagnosis Seizure-like activity Other convulsions documented in this encounter Care Teams Cheese Production Supervisor Relationship Specialty Start Date End Date Comfort Urban, SELVIN [address] [place] [address] PCP - General Family Medicine 07/19/17 03/11/23 documented as of this encounter
--- OUTSIDE RECORDS SUMMARY | 2023-11-16 14:12 | XMS_ITS | Encounter Summary ---
[place] [address] Care Team Providers Care Field Operator Name Role Phone Comfort Urban APRN Primary Care Provider Reason for Visit * Reason Comments Follow-up S/P L4-L5 Decompress ion Encounter Details Date Type Department Care Team (Latest Contact Info) Description 06/19/2022 1:20 PM EDT Office Visit [place] [address] Charly Wilkins MD [facility] [place] [address] Spondylolisthesis at L4-L5 level; H/O lumbosacral spine surgery Social History Tobacco Use Types Packs/Day Years [...] - - Weight 94.3 kg (208 lb) 06/19/2022 1:25 PM EDT Height 154.9 cm (5' 1) 06/19/2022 1:25 PM EDT Body Mass Index 39.3 06/19/2022 1:25 PM EDT documented in this encounter Progress Notes * Charly Wilkins MD - 06/19/2022 1:20 PM EDT Images from the original note were not included. [facility] MD [place] Comfort Torres, [employer] [address] [place] [address] Comfort Urban APRN [address] [place] [address] Dear Colleagues, I had the pleasure of seeing this patient at the [facility] for surgical evaluation. Procedure: Posterior lumbar decompression fusion L4-5 01/05/2022. ??Unable to place a TLIF. ?? Diagnosis: 1. 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 ??Correction to 4 mm on extension. 2. ??Bilateral L5 radiculopathy as well as back pain. 3. ??Obesity BMI 41 4. ??Medical issues including cardiology, neurology.?Hemoglobin A1c 5.2 ?? First postoperative visit: Doing well. ??Sutures to stay in. ??Get a nursing visit for removal. ??X-rays consistent with the surgical intervention. ??Physical therapy she can continue with her VNA athome and will start outpatient once VNA leaves. ??She had a follow-up with neurology and cardiology. ??Overall doing well. ?? Second postoperative visit 03/27/2022: Patient doing well. No significant leg pain. Postoperative visit 06/19/2022: She has been working at the [employer]. She has some left side tightness in her muscles. She enjoys her he was seen in her car which is significant help. X-rays are consistent with surgical intervention. Imaging: Based on my independent interpretation AP and lateral views lumbar spine reviewed no evidence of significant change. Plan: 1. Follow-up in 3 to 4 months with x-rays AP and lateral views to evaluate question of loosening ofthe L5 screws. Sincerely, Charly Wilkins MD [facility] Head Still Operator - Orthopedic Spine Surgery Manufacturing Associate - Department of Orthopedic Surgery / [employer] Front Office Developer - [facility] 06/27/2022 Spine Center Response Trends Patient-reported scores: 10/10/2021 11:24 AM 10/10/2021 11:27 AM myD-H Spine Questionnaire responses Oswestry Disability Index (Range: 0-100) 52 (Severe disability) PROMIS-10 Physical Health Score 29.6 PROMIS-10 Mental Health Score 43.5 documented in this encounter Plan of Treatment Upcoming Encounters Date Type Department Care Team (Late st Contact Info) Description 12/24/2023 10:00 AM EDT [place] [phone] Tereso Mohan MD [facility] [place] [address] 12/24/2023 10:30 AM EDT Appointment XRay at [address] [place] [phone] Shelby Aaron, SELVIN [facility] [address] 12/24/2023 11:30 AM EDT Office Visit [facility] Sp[facility] at [place] [phone] Shelby Aaron, [employer] [facility] [place] [address] documented as of this encounter Results * [...] who have questions please contact the health care center manager that requested your imaging first. ? Electronically signed by: Pedro Tamez MD, [facility] ??([phone]), at 11/20/2022 1:38 PM Narrative 11/20/2022 1:38 PM EDT EXAMINATION: XR [...] patients who have questions please contactthe health care center manager that requested your imaging first. Electronically signed by: Pedro Tamez MD, [facility]([phone]), at 11/20/2022 1:38 PM Charly Wilkins MD IMG DX ORDERABLES documented in this encounter Visit Diagnoses Diagnosis Spondylolisthesis at L4-L5 level H/O lumbosacral spine surgery Personal history of surgery to other organs Spondylolisthesis at L4-L5 level H/O lumbosacral spine surgery Personal history of surgery to other organs documented in this encounter Care Teams Field Operator Relationship Specialty Start Date End Date Comfort Urban, [employer] [address] [facility] [place] [address] PCP - General Family Medicine 07/19/17 03/11/23 documented as of this encounter
--- OUTSIDE RECORDS SUMMARY | 2023-11-16 14:12 | XMS_ITS | Encounter Summary ---
Author Organization [facility] Address [facility] [place] [address] Care Team Providers Care Web Search Evaluator Name Role Phone Comfort Urban APRN Primary Care Provider [phone] Encounter Details Date Type Department Care Team (Latest Contact Info) Description 03/27/2022 11:22 AM EST - 03/27/2022 11:59 PM [facility] Hospital Encounter XRay at [facility] [place] [address] Charly Wilkins MD [facility] [place] [address] Spondylolisthesis at L4-L5 level; Radiculopathy of lumbar region Discharge Disposition: Home Social History Tobacco Use [...] mouth as needed. Med Name: CBD oil celecoxib (CeleBREX) 100 mg Capsule Take 1 [...] 10:00 AM EDT [place] [phone] Tereso Mohan MD [facility] [place] [address] 12/24/2023 10:30 AM EDT Appointment XRay at [address] [place] [address] Shelby Aaron APRN [facility] [place] [address] 12/24/2023 11:30 AM EDT Office Visit [place] [phone] Shelby Aaron APRN [facility] [place] [address] documented as of this encounter Procedures Procedure Name Priority Date/Time Associated Diagnosis Comments XR LUMBAR SPINE 2 OR 3 VIEWS Routine 03/27/2022 11:40 AM EST Spondylolisthesis at L4-L5 level Radiculopathy of lumbar region documented in this encounter Results * XR Lumbar Spine 2 Or 3 Views (Generic) (03/27/2022 11:40 AM EST) Anatomical Region Laterality Modality L-spine N/A Digital Radiogra phy Impressions 03/27/2022 2:36 PM EST L4-L5 instrumented fusion without complication. Thank you for letting us participate in the care of this patient. ??If you are a health care provider and have any questions regarding this report, please contact the number below. ??For patients who have questions please contact the health pharmacy customer care specialist that requested your imaging first. ? Electronically signed by: SHERON CONRAD MD, [facility] ([phone]), at 03/27/2022 2:36 PM Narrative 03/27/2022 2:36 PM EST EXAMINATION: XR LUMBAR SPINE 2 OR 3 VIEWS (GENERIC) CLINICAL HISTORY: post op. lumbar fusion L4-5 check hardware TECHNIQUE: 2 views of the lumbar spine COMPARISON: Lumbar radiographs 01/23/2022. FINDINGS: Alignment: No spondylolisthesis. Preserved lumbar lordosis. Vertebral bodies: No height loss. Status post L4-L5 posterior instrumented fusion. Hardware is intact and in unchanged projection. No lucency. Minimal endplate degenerative changes with tiny osteophytes at multiple levels. Mild endplate sclerosis at L4-L5 and L5-S1. Disc spaces: Mild/moderate disc space height loss at L4-L5. Soft tissues: Trace abdominal aortic calcification. Procedure Note Sheron Conrad MD - 03/27/2022 EXAMINATION: XR LUMBAR SPINE 2 OR 3 VIEWS (GENERIC) CLINICAL HISTORY: post op. lumbar fusion L4-5 check hardware TECHNIQUE: 2 views of the lumbar spine COMPARISON: Lumbar radiographs 01/23/2022. FINDINGS: Alignment: No spondylolisthesis. Preserved lumbar lordosis. Vertebral bodies: No height loss. Status post L4-L5 posteriorinstrumented fusion. Hardware is intact and in unchanged projection. No lucency.Minimal endplate degenerative changes with tiny osteophytes at multiple levels.Mild endplate sclerosis at L4-L5 and L5-S1. Disc spaces: Mild/moderate disc space height loss at L4-L5. Soft tissues: Trace abdominal aortic calcification. IMPRESSION L4-L5 instrumented fusion without complication. Thank you for letting us participate in the care of this patient. If youare a health care provider and have any questions regarding this report,please contact the number below. For patients who have questions please contactthe health pharmacy customer care specialist that requested your imaging first. Electronically signed by: SHERON CONRAD MD, [facility]([phone]), at 03/27/2022 2:36 PM Charly Wilkins MD IMG DX ORDERABLES documented in this encounter Visit Diagnoses Diagnosis Spondylolisthesis at L4-L5 level Radiculopathy of lumbar region Thoracic or lumbosacral neuritis or radiculitis, unspecified documented in this encounter Care Teams Web Search Evaluator Relationship Specialty Start Date End Date Comfort Urban, SELVIN [address] [place] [address] PCP - General Family Medicine 07/19/17 03/11/23 documented as of this encounter
--- OUTSIDE RECORDS SUMMARY | 2023-11-16 14:12 | XMS_ITS | Encounter Summary ---
[place] [address] Care Team Providers Care Real Estate Transaction Manager Name Role Phone Comfort Urban APRN Primary Care Provider [phone] Reason for Referral * Physical Therapy (Routine) - Closed Specialty Diagnoses / Procedures Referred By Kristan t Referred To Contact Diagnoses Spondylolisthesis at L4-L5 level Radiculopathy of lumbar region Congenital anomalies of spine Charly Wilkins MD [facility] [place] [address] Referral ID Status Reason Start Date Expiration Date V isits Requested Visits Authorized [id number] Closed Evaluate and Treat 01/29/2022 07/28/2022 12 12 Encounter Details Date Type Department Care Team (Late st Contact Info) Description 01/29/2022 Orders Only [facility] [place] [address] Susanna Jason LPN Spondylolisthesis at L4-L5 level; Radiculopathy of lumbar region; Congenital anomalies of spine Social History Tobacco [...] 10:00 AM EDT Office Visit Neurology at [place] [phone] Tereso Mohan MD [facility] [place] [address] 12/24/2023 10:30 AM EDT Appointment XRay at [address] [place] [phone] Shelby Aaron CARDROOM ATTENDANT [facility] [place] [address] 12/24/2023 11:30 AM EDT Office Visit [place] [phone] Shelby Aaron CARDROOM ATTENDANT [facility] [place] [address] Scheduled Referrals Name Type Priority Associated Diagnoses Orde r Schedule Referral to Physical Therapy Outpatient Referral Routine Spondylolisthesis at L4-L5 level Radiculopathy of lumbar region Congenital anomalies of spine Ordered: 01/29/2022 documented as of this encounter Visit Diagnoses Diagnosis Spondylolisthesis at L4-L5 level Radiculopathy of lumbar region Thoracic or lumbosacral neuritis or radiculitis, unspecified 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
--- OUTSIDE RECORDS SUMMARY | 2023-11-16 14:12 | XMS_ITS | Encounter Summary ---
Author Organization [facility] Address [facility] [place] [address] Care Team Providers Care Dog Groomer Name Role Phone Comfort Urban APRN Primary Care Provider Encounter Details Date Type Department Care Team (Late st Contact Info) Description 03/13/2022 4:30 PM EST [place] [address] Tereso Mohan MD [facility] [place] [address] Seizure-like activity Social History Tobacco Use Types [...] Sign Reading Time Taken Comments Blood Pressure 134/85 03/13/2022 4:22 PM EST Pulse 84 03/13/2022 4:22 PM EST Temperature - - Respiratory Rate - - Oxygen Saturation - - Inhaled Oxygen Concentration - - Weight 95.5 kg (210 lb 9.6 oz) 03/13/2022 4:22 P M EST Height 154.9 cm (5' 1) 03/13/2022 4:22 PM EST Body Mass Index 39.79 03/13/2022 4:22 PM EST documented in this encounter Patient Instructions * Patient Instructions* Tereso Mohan MD - 03/13/2022 4:30 PM EST I think you are doing somewhat better. 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 We have been able to take you off of Keppra and Depakote. The Depakote was clearly responsible for the swelling. You also had pinched nerves in your back, and those seem better after your back surgery I think you should stay on the Onfi as it is a minor tranquilizer and also provides protection against epileptic seizures, if in fact you are having any The numbness in your hands is due to the type of work you are doing and there is not significant entrapment of nerves. You can try using splints at night. You can try taking Celebrex. Please call if your symptoms worsen in any way. I would like to see you back in 3 months or sooner if necessary. Tereso Mohan MD Professor of neurology, Replaced By [facility] Department of Neurology, [address] Pager: [phone], #[phone] Email: [email or web address] documented in this encounter Progress Notes * Tereso Mohan MD - 03/13/2022 4:30 PM EST Neurology clinic note Chief complaint: [...] ?? 2. EEG: ?- Routine EEG:Done at [facility] 05/05/18: Normal study. ?? In 2019 when we saw the patient [...] that led to her being taken to [facility] emergency room. She had bitten the [...] able to continue working full-time at the [employer]. As of 2020 she is doing quite well. She had one breakthrough convulsive seizure associated with missed doses of medication. She has had no other major medical problems. 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 She is having some mid back [...] twice daily to 250, 500 mg at [facility]. There have been no additional events [...] did not last, and surgery was planned. Interval History: As of 2022 the situation is both clear and improved. 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 Her [...] concern for an ovarian cyst that was thoughtto be benign when she was seen by gynecology. The patient then underwent surgery on her back, L4-5 decompression and fusion, and is now considerably improved with regard to back pain and sciatica. She still complains of numbness and tingling in the hands. This was thought to be consistent with carpal tunnel syndrome and ulnar neuropathy. Past Medical History: Patient Active Problem List Diagnosis ??? Seizures ? CIS - ASD, S/P repair ??? 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 Currently working at the [employer]. ?? Family history: There is no family history of seizures. Mother: Hypertension, Diabetes Daughters: (Agnieszka Levy) has Chiari malformation and is s/p neurological surgery. She also hasabsence seizures and developmental delay. Another daughter has migraine. Review of Systems: Her weight is stable. She sleeps all right. Bowel and bladder function are normal. Other systems were reviewed and were unremarkable. ?? Current Medications: Current Outpatient Medications Medication Sig Dispense Refill ??? methylcellulose (CITRUCEL ORAL) Take by mouth as needed. ??? cyclobenzaprine (Flexeril) 5 mg Tablet Take 1 tablet by mouth nightly as needed for Muscle spasms. 15 tablet 0 ??? acetaminophen (Tylenol) 500 mg Tablet Take [...] for 12 hours) 30 patch 0 ??? cholecalciferol, Vitamin D3, 50 mcg (2,000 [...] as needed. Med Name: CBD oil ??? celecoxib (CeleBREX) 100 mg Capsule Take 1 capsule by mouth 2 times daily. 60 capsule 5 ??? cloBAZam (Onfi) 10 mg Tablet Take 1 pill in AM and 2 pills in PM 90 tablet 5 No current facility-administered medications for this visit. Physical Examination: BP 119/65 Pulse 71 Ht 154.9 cm (5' 1) Comment: reported Wt 84.4 kg (186 lb) BMI 35.14 kg/m?? HEENT: Unremarkable. Lungs: clear to auscultation bilaterally Heart: regular rate and rhythm, S1, S2 normal, no murmur, click, rub or gallop Abdomen: benign Extremities: minimal edema bilaterally Mental status: Mentally clear, speech normal. Cranial [...] at the ankles. No lateralized symptoms or signs ?? Reflexes: 2+ throughout. ?Previously plantar response was flexor bilaterally. ?? Cerebellar: Normal [id number] with mild action tremor. ?? Gait: gait was normal. 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 EEG: Routine EEG:Done at [facility] 05/05/18: Normal study. Blood Tests: Blood tests [...] ??? Vitamin B1, whole blood Video EEG monitoring: Nonepileptic psychogenic seizures recorded. Orders Placed This Encounter Procedures ??? Valproic Acid Level, Total ??? Hepatic Function Panel ??? Basic Metabolic Panel (non-fasting) ??? TSH ??? T4 Total ??? Protein Electrophoresis, serum ??? Prothrombin Time ??? Lipase ??? Amylase ??? Ammonia ??? Prothrombin Time ??? APTT ??? Thrombin time ??? Fibrinogen ??? D-Dimer, Quantitative ?? Impression and plan: Patient is doing better although there are several ongoing neurological issues. 1. We were convinced that she had epilepsy based on the history, and her biting the side of her tongue, and it is possible that she does have occasional epileptic seizures. However, the events recorded during the last session of video EEG monitoring were all clearly nonepileptic and psychogenic in character and her EEG was normal off antiepileptic medication. She was also clearly having severe adverse reaction to Depakote. She is now off both Depakote and Keppra, and is maintained on clobazam for mood stabilization and also to cover the possibility of epilepsy. 2. Psychiatrically she looks like she is doing well. It is reasonable to can keep her on Abilify and Celexa as she suffered from suicidal depression in the past. 3. The numbness in her hands appears to be relatively mild carpal tunnel syndrome with normal electrical studies. She had surgery on the right, and has some similar symptoms on the left. I think we should continue with conservative management including the use of splints at night 4. She was complaining of worsening sciatic pain and paresthesias on the right. Her exam is relatively benign now, but there was some sensory loss on the medial aspect of the leg and ankle. MRI findings were confirmatory as noted above. Lumbar epidural steroid injections were helpful, but then symptoms relapse. She is now better after L4-5 decompressive laminectomy and fusion 5. Her general health seems much better off Depakote. It was clearly the cause of edema. Cardiac and gynecological evaluation have been unremarkable. I would do nothing more at present Thank you for this consultation. I will see her back in a few months or sooner if necessary Tereso Mohan MD Department [place] [address] Pager #[phone] Email: [email or web address] CC: Comfort Rai MD documented in this encounter Plan of Treatment Upcoming Encounters Date Type Department Care Team (Late st Contact Info) Description 12/24/2023 10:00 AM EDT [place] [address] Tereso Mohan MD [facility] [place] [place] [address] 12/24/2023 10:30 AM EDT Appointment XRay at [address] [place] [address] Shelby Aaron MATERIAL ATTENDANT [facility] [place] [address] 12/24/2023 11:30 AM EDT Office Visit [place] [phone] Shelby Aaron MATERIAL ATTENDANT [facility] [place] [address] documented as of this encounter Visit Diagnoses Diagnosis Seizure-like activity Other convulsions documented in this encounter Care Teams Dog Groomer Relationship Specialty Start Date End Date Comfort Urban, MATERIAL ATTENDANT [address] [place] [address] PCP - General Family Medicine 07/19/17 03/11/23 documented as of this encounter
--- OUTSIDE RECORDS SUMMARY | 2023-11-16 14:12 | XMS_ITS | Encounter Summary ---
[place] [address] Care Team Providers Care Cushion Spring Assembler Name Role Phone Comfort Urban APRN Primary Care Provider [phone] Reason for Visit * Reason Comments Follow-up 3 Week F/U to L4-L5 Decomp Encounter Details Date Type Department Care Team (Latest Contact Info) Description 01/23/2022 1:00 PM EST Office Visit [place] [address] Charly Wilkins MD [facility] [place] [address] Spondylolisthesis at L4-L5 level; Radiculopathy of lumbar region Social History Tobacco Use Types Packs/Day Years [...] - Inhaled Oxygen Concentration - - Weight 96.6 kg (213 lb) 01/23/2022 12:46 PM EST Height 154.9 cm (5' 1) 01/23/2022 12:46 PM EST Body Mass Index 40.25 01/23/2022 12:46 PM EST documented in this encounter Progress Notes * Charly Wilkins MD - 01/23/2022 1:00 PM EST Images from the original note were not included. [facility] Charly Wilkins MD MS Comfort Urban, FORM TAMPER [address] [place] [address] Comfort Rajni, FORM TAMPER [address] [facility] [facility] [address] Dear Colleagues, I had the pleasure of seeing this patient at the [facility] for surgical evaluation. Procedure: Posterior lumbar decompression [...] with neurology and cardiology. Overall doing well. Plan: 1. Follow-up 8 to 12 weeks AP and lateral lumbar views. Sincerely, Charly Wilkins MD [facility] Human Factors Ergonomist - Orthopedic Spine Surgery Dynamicist - Department of Orthopedic Surgery / Academics and Research Machine Repairer Maintenance - [facility] 01/29/2022 Spine Center Response Trends Patient-reported scores: myD-H Spine Questionnaire responses 10/10/2021 Oswestry Disability Index (Range: 0-100) 52 (Severe disability) PROMIS-10 Physical Health Score 29.6 PROMIS-10 Mental Health Score 43.5 documented in this encounter Plan of Treatment Upcoming Encounters Date Type Department Care Team (Late st Contact Info) Description 12/24/2023 10:00 AM EDT [place] [address] Tereso Mohan MD [facility] [place] [address] 12/24/2023 10:30 AM EDT Appointment XRay at [address] [place] [phone] Shelby Aaron, [facility] [place] [address] 12/24/2023 11:30 AM EDT Office Visit [facility] at [facility] [place] [phone] Shelby Aaron, [facility] [place] [address] documented as of this encounter Results * [...] who have questions please contact the health continuum of care manager that requested your imaging first. ? Electronically signed by: SHERON CONRAD MD, [facility] ([phone]), at 03/27/2022 2:36 PM Narrative 03/27/2022 2:36 [...] patients who have questions please contactthe health continuum of care manager that requested your imaging first. Electronically signed by: SHERON CONRAD MD, [facility]([phone]), at 03/27/2022 2:36 PM Charly Wilkins MD IMG DX ORDERABLES documented in this encounter Visit Diagnoses Diagnosis Spondylolisthesis at L4-L5 level Radiculopathy of lumbar region Thoracic or lumbosacral neuritis or radiculitis, unspecified Spondylolisthesis at L4-L5 level Radiculopathy of lumbar region Thoracic or lumbosacral neuritis or radiculitis, unspecified documented in this encounter Care Teams Cushion Spring Assembler Relationship Specialty Start Date End Date Comfort Urban, FORM TAMPER [address] [place] [address] PCP - General Family Medicine 07/19/17 03/11/23 documented as of this encounter
--- OUTSIDE RECORDS SUMMARY | 2023-11-16 14:12 | XMS_ITS | Encounter Summary ---
Author Organization [facility] Address [facility] [address] Care Team Providers Care Monitor Car Operator Name Role Phone Comfort Urban APRN Primary Care Provider [phone] Encounter Details Date Type Department Care Team (Latest Contact Info) Description 02/09/2022 1:02 PM EST - 02/09/2022 11:59 PM [facility] Hospital [place] [address] Elaina Colbert MD [facility] OBSTETRICS [place] [address] Simple adnexal cyst greater than 5 cm in diameter in premenopausal patient Discharge Disposition: Home Social History Tobacco Use [...] Name: CBD oil oxyCODONE (Roxicodone) 5 mg Tablet Take 1 tablet by mouth every 12 hours as needed for Pain. Take 1 tab in the am, 1 tab at bedtime, use this as wean. 14 tablet 01/29/2022 03/13/2022 cyclobenzaprine (Flexeril) 5 mg Tablet Take 1 [...] 10:00 AM EDT Office [place] [address] Tereso Mohan MD [facility] [place] [address] 12/24/2023 10:30 AM EDT Appointment XRay at [address] [place] [address] Shelby Aaron, CAMPAIGN MANAGEMENT SENIOR MANAGER [facility] [place] [address] 12/24/2023 11:30 AM EDT Office Visit [facility] at [facility] [place] [address] Shelby Aaron APRN [facility] [place] [address] documented as of this encounter Procedures Procedure Name Priority Date/Time Associated Diagnosis Comments US TRANSVAGINAL NON OB Routine 02/09/2022 1:59 PM EST Simple adnexal cyst greater than 5 cm in diameter in premenopausal patient documented in this encounter Results * US Transvaginal Non OB (02/09/2022 1:59 PM EST) Anatomical Region Laterality Modality Ultrasound 02/09/2022 1:58 PM EST Impressions 02/09/2022 2:46 PM EST 1. ??Interval resolution of left-sided umbilical ovarian cyst. Normal bilateral ovaries. 2. ??Anteverted, normal-appearing uterus. I have personally reviewed the [...] who have questions, please contact the health medicare coordinator that requested your imaging first. ? Deonte Lake, Staff Physician Electronically Signed Final Report ?? 02/09/2022 02:45 pm Narrative 02/09/2022 2:46 PM EST Gynecological Report ?(Signed Final 02/09/2022 02:45 pm) PATIENT INFO: ID #: ? [id number] ?: ??[birth year] (36 yrs)(F) Name: ? BESSIE Ventura JCARLOS ? Visit Date: 02/09/2022 01:58 pm PERFORMED BY: Performed By: ? Teresa Taveras RDMS Attending: ?Jaya RODRIGUEZ, Deonte Vallejo Resident: ? Brice RODRIGUEZ, Oscar Carey Referred By: ?ELAINA COLBERT Location: ? [place] SERVICE(S) PROVIDED: UTV - Transvaginal - [id number] ?[id number] UPEL - Pelvis Complete - [id number] ?[id number] INDICATIONS: 36yo female f/u 5cm left adnexal cyst; History of: Tubes tied TECHNIQUE/SCAN QUALITY: Technique: ?Transducer ID#: -------- HISTORY: -------- Age: ?? 36 ------- UTERUS: ------- Uterus: ? Visualized Position: ?? Anteverted Size (cm) ?L: ??10.1 ?W: ?? 6.2 ?H: ??4.8 ENDOMETRIUM: Endometrium: ?Normal appearance Thickness(mm): ?5.57 RIGHT OVARY: Status: ?? Visualized Size (cm) ?L: ??2.4 ? W: ?? 2.8 ?H: ??1.9 Vol (ml): ?6.7 Morphology: ?Normal appearance Comment: ? best seen transabdominal LEFT OVARY: Status: ?? Visualized Size (cm) ?L: ??2.8 ? W: ?? 2.3 ?H: ??2.2 Vol (ml): ?7.4 Morphology: ?Normal appearance Comment: ? Best seen transabominal Procedure Note Deonte Lake MD - 02/09/2022 Gynecological Report (Signed Final 02/09/2022 02:45 pm) PATIENT INFO: ID #: [id number] : [birth year] (36 yrs)(F) Name: BESSIE GARBER Visit Date: 02/09/2022 01:58 pm PERFORMED BY: Performed By: Teresa Taveras RDMS Attending: Deonte Lake MD Resident: Oscar Narvaez MD Referred By: ELAINA COLBERT Location: [place] SERVICE(S) PROVIDED: UTV - Transvaginal - [id number] UPEL - Pelvis Complete - [id number] INDICATIONS: 36yo female f/u 5cm left adnexal [...] Morphology: Normal appearance Comment: Best seen transabominal IMPRESSION 1. Interval resolution of left-sided umbilical ovarian [...] who have questions, please contact the health medicare coordinator that requested your imaging first. Deonte Lake, Staff Physician Electronically Signed Final Report 02/09/2022 02:45 pm Elaina Colbert MD IMG US PELVIC ORDERA BLES documented in this encounter Visit Diagnoses Diagnosis Simple adnexal cyst greater than 5 cm in diameter in premenopausal patient documented in this encounter Care Teams Monitor Car Operator Relationship Specialty Start Date End Date Comfort Urban APRN [address] [place] [address] PCP - General Family Medicine 07/19/17 03/11/23 documented as of this encounter
--- OUTSIDE RECORDS SUMMARY | 2023-11-16 14:12 | XMS_ITS | Encounter Summary ---
Author Organization [facility] Address [facility] [place] [address] Care Team Providers Care Master Ocean Yacht Name Role Phone Comfort Urban APRN Primary Care Provider [phone] Encounter Details Date Type Department Care Team (Latest Contact Info) Description 09/17/2022 Travel Social History Tobacco Use Types Packs/Day [...] 10:00 AM EDT Office [place] [address] Tereso Mohan MD [facility] [place] [address] 12/24/2023 10:30 AM EDT Appointment XRay at [address] [place] [phone] Shelby Aaron WESTERN PHILOSOPHY PROFESSOR [facility] [address] 12/24/2023 11:30 AM EDT Office Visit [facility] at [place] [phone] Shelby Aaron WESTERN PHILOSOPHY PROFESSOR [facility] [place] [address] documented as of this encounter Visit Diagnoses Not on filedocumented in this encounter Care Teams Master Ocean Yacht Relationship Specialty Start Date End Date Comfort Urban APRN [address] [place] [address] PCP - General Family Medicine 07/19/17 03/11/23 documented as of this encounter
--- OUTSIDE RECORDS SUMMARY | 2023-11-16 14:12 | XMS_ITS | Encounter Summary ---
Author Organization [facility] Address [facility] [place] [address] Care Team Providers Care Cigarette Making Machine Hopper Feeder Name Role Phone Comfort Urban APRN Primary Care Provider [phone] Encounter Details Date Type Department Care Team (Latest Contact Info) Description 07/25/2022 12:00 PM EDT [place] [address] Tereso Mohan MD [facility] [place] [address] Radiculopathy of lumbar region; Seizure-like activity Social History Tobacco Use Types [...] Sign Reading Time Taken Comments Blood Pressure 146/98 07/25/2022 11:32 AM EDT copeland s a headache Pulse 88 07/25/2022 11:32 AM EDT Temperature - - Respiratory Rate - - Oxygen Saturation - - Inhaled Oxygen Concentration - - Weight 93 kg (205 lb) 07/25/2022 11:32 AM EDT Height 154.9 cm (5' 1) 07/25/2022 11:32 AM EDT Body Mass Index 38.73 07/25/2022 11:32 AM EDT documented in this encounter Patient Instructions * Patient Instructions* Tereso Mohan MD - 07/25/2022 12:00 PM EDT I think you are doing reasonably well. Seizures appear to be under control. Please stay on the clobazam. Your back surgery has worked out more less as anticipated with satisfactory outcome. The symptoms in your hands are related to carpal tunnel syndrome which is a pinched nerve at the level of the wrist. Your electrical studies for this problem were essentially normal. I suggest you try different type of splint for which I am giving you prescription. Please also try gabapentin 300 mg taken twice a day, both when you go to bed off to work, and when you wake up to go to work. If this does not help, in 6 months we can repeat your electrical studies. I could not at present recommend additional surgery. It is possible that you are just not suited doing heavy work with your hands. I would like to see you back in 3 months or sooner if necessary. Tereso Mohan MD Professor of neurology, [facility] [employer] at [facility] Department of Neurology, [address] Pager: [phone], #[phone] Email: [email or web address] documented in this encounter Progress Notes * Tereso Mohan MD - 07/25/2022 12:00 PM EDT Neurology clinic note Chief complaint: [...] ?? 2. EEG: ?- Routine EEG:Done at [facility] 05/05/18: Normal study. ?? In 2019 when [...] that led to her being taken to [facility] emergency room. She had bitten the side of her tongue quite badly, for the first time. She was discharged from there without change in medication. She had another seizure at home and was taken to the emergency room at [facility] where she was held overnight. I [...] able to continue working full-time at the [employer]. As of 2020 she is doing quite well. She had one breakthrough convulsive seizure associated with missed doses of medication. She has had no other major medical problems. 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 She is having some mid back [...] twice daily to 250, 500 mg at [facility]. There have been no additional events [...] and doing a good deal of lifting. 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 Currently working at the [employer] ?? Family history: There is no family [...] as needed. Med Name: CBD oil ??? cyclobenzaprine (Flexeril) 5 mg tablet Take [...] response was flexor bilaterally. ?? Cerebellar: Normal [id number] with mild action tremor. ?? Gait: gait was normal. 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 EEG: [facility] [...] seizures recorded. Unremarkable laboratory studies 2022 Procedures ??? Valproic Acid Level, Total ??? [...] management including the use of splints at night. I sent her to [employer] shop for a different splints to see if that makes a difference. It is possible that she is just not suited for work that involves repetitive lifting and other movements. 4. She was complaining of worsening sciatic pain and paresthesias on the right. Her exam is relatively benign now, but there was some sensory loss on the medial aspect of the leg and ankle. MRI findings were confirmatory as noted above. Lumbar epidural steroid injections were helpful, but then symptoms relapsed. She is now better after L4-5 decompressive laminectomy and fusion Thank you for this consultation. I will see her back in 6 months or sooner if necessary Tereso Mohan MD Department [place] [address] Pager #[phone] Email: [email or web address] CC: Comfort Rai MD documented in this encounter Plan of Treatment Upcoming Encounters Date Type Department Care Team (Late st Contact Info) Description 12/24/2023 10:00 AM EDT [place] [address] Tereso Mohan MD [facility] [place] [address] 12/24/2023 10:30 AM EDT Appointment XRay at [address] [place] [address] Shelby Aaron APRN [facility] [place] [address] 12/24/2023 11:30 AM EDT Office Visit [place] [address] Shelby Aaron APRN [facility] [place] [address] documented as of this encounter Visit Diagnoses Diagnosis Radiculopathy of lumbar region Thoracic or lumbosacral neuritis or radiculitis, unspecified Seizure-like activity Other convulsions documented in this encounter Care Teams Cigarette Making Machine Hopper Feeder Relationship Specialty Start Date End Date Comfort Urban, ANTISQUEAK CHALKER [address] [place] [address] PCP - General Family Medicine 07/19/17 03/11/23 documented as of this encounter
--- OUTSIDE RECORDS SUMMARY | 2023-11-16 14:12 | XMS_ITS | Encounter Summary ---
Author Organization [facility] Address [facility] [place] [address] Care Team Providers Care Acid Loader Name Role Phone Comfort Urban APRN Primary Care Provider [phone] Encounter Details Date Type Department Care Team (Latest Contact Info) Description 01/23/2022 1:48 PM EST - 01/23/2022 11:59 PM [facility] Hospital Encounter XRay at [facility] [address] [place] [address] Charly Wilkins MD [facility] [place] [address] Radiculopathy of lumbar region; Congenital anomalies of spine; Spondylolisthesis at L4-L5 level Discharge Disposition: Home Social History Tobacco Use [...] oil oxyCODONE (Roxicodone) 5 mg Tablet Take 1-2 tablets by mouth every 8 hours as needed for Pain (Acute post-op surgical pain). 42 tablet 01/15/2022 01/29/2022 cyclobenzaprine (Flexeril) 5 mg Tablet Take 1 [...] 10:00 AM EDT [place] [address] Tereso Mohan MD [facility] [place]UROLOGY [place] [address] 12/24/2023 10:30 AM EDT Appointment XRay at [address] [place] [address] Shelby Aaron APRN [facility] PAIN [place] [address] 12/24/2023 11:30 AM EDT Office Visit [facility] Sp[facility] at [facility] [place] [address] Shelby Aaron APRN [facility] [place] [address] documented as of this encounter Procedures Procedure Name Priority Date/Time Associated Diagnosis Comments XR LUMBAR SPINE 2 OR 3 VIEWS Routine 01/23/2022 1:58 PM EST Radiculopathy of lumbar region Congenital anomalies of spine Spondylolisthesis at L4-L5 level documented in this encounter Results * XR Lumbar Spine 2 Or 3 Views (Generic) (01/23/2022 1:58 PM EST) Anatomical Region Laterality Modality L-spine N/A Digital Radiogra phy Impressions 01/24/2022 7:39 AM EST Status post posterior instrumented fusion L4-5 without radiographic finding of complication or acute abnormality. Thank you for letting us participate in the care of this patient. ??If you are a health care provider and have any questions regarding this report, please contact the number below. ??For patients who have questions please contact the health career and technology education teacher that requested your imaging first. ? Narrative 01/24/2022 7:39 AM EST EXAMINATION: XR LUMBAR SPINE 2 OR 3 VIEWS (GENERIC) CLINICAL HISTORY: s/p surgery TECHNIQUE: AP and lateral standing views of the lumbar spine COMPARISON: Radiographs January 05, 2022 FINDINGS: There are 5 nonrib-bearing lumbar vertebral bodies with preserved height. No displaced fracture or destructive bone lesion. Posterior instrumented fusion and laminotomy L4-5 has intact hardware without adjacent lucency, change in position or fracture. Minimal grade 1 spondylolisthesis listhesis L4 on L5 is unchanged. Multilevel intervertebral disc height loss with small endplate osteophytes is unchanged. Spacing and alignment are preserved at the facet joints and sacroiliac joints. Surgical drain tubing has been removed without retained foreign body. Soft tissue air posteriorly has resolved. Aside from scant atherosclerotic calcification of aorta, soft tissues are normal. Procedure Note Oneyda Alcazar MD - 01/24/2022 EXAMINATION: XR LUMBAR SPINE 2 OR 3 VIEWS (GENERIC) CLINICAL HISTORY: s/p surgery TECHNIQUE: AP and lateral standing views of the lumbar spine COMPARISON: Radiographs January 05, 2022 FINDINGS: There are 5 nonrib-bearing lumbar vertebral bodies with preserved height.No displaced fracture or destructive bone lesion. Posterior instrumented fusion and laminotomy L4-5 has intact hardwarewithout adjacent lucency, change in position or fracture. Minimal grade 1 spondylolisthesis listhesis L4 on L5 is unchanged. Multilevel intervertebral disc height loss with small endplate osteophytesis unchanged. Spacing and alignment are preserved at the facet joints and sacroiliac joints. Surgical drain tubing has been removed without retained foreign body.Soft tissue air posteriorly has resolved. Aside from scant atherosclerotic calcification of aorta, soft tissues are normal. IMPRESSION Status post posterior instrumented fusion L4-5 without radiographicfinding of complication or acute abnormality. Thank you for letting us participate in the care of this patient. If youare a health care provider and have any questions regarding this report,please contact the number below. For patients who have questions please contactthe health career and technology education teacher that requested your imaging first. 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
--- OUTSIDE RECORDS SUMMARY | 2023-11-16 14:13 | XMS_ITS | Encounter Summary ---
[place] [address] Care Team Providers Care Diesel Service Journeyman Name Role Phone Comfort rUban BRASSWIND INSTRUMENT REPAIRER Primary Care Provider [phone] Encounter Details Date Type Department Care Team (Late st Contact Info) Description 11/28/2021 Telephone [facility] [place] [phone] Susanna Jason LPN Social History Tobacco Use Types Packs/Day Years Used Date Smoking Tobacco: Never Smokeless Tobacco: Never Alcohol Use Standard Drinks/Week Comments Never 0 (1 standard drink = 0.6 oz pur e alcohol) Sex and Gender Information Value Date Recorded Sex Assigned at Not on file Gender Identity Not on file Sexual Orientation Not on file documented as of this encounter Miscellaneous Notes * Telephone Encounter - Susanna Jason LPN - 11/28/2021 1:51 PM EDT Bessie called while inpatient, she wanted to schedule her surgery, advised Bessie that she needs to be cleared by Dr. Cottrell and cardiology, she states that she sees cardiology on 12-01-21, she says all her other issues have been resolved. Will route to Dr. Wilkins to determine if he wants herto follow up once more with Dr. Cottrell to put all the pieces together and get her cleared so she can be scheduled for surgery with Dr. Wilkins. documented in this encounter Plan of Treatment Upcoming Encounters Date Type Department Care Team (Late st Contact Info) Description 12/24/2023 10:00 AM EDT Office Visit Neurology at [place] [phone] [facility] [address] [place] [address] 12/24/2023 10:30 AM EDT Appointment XRay at [address] [place] [phone] [facility] [place]IN [place] [address] 12/24/2023 11:30 AM EDT Office Visit [facility] [place] [address] [facility] [place]IN [place] [address] documented as of this encounter Visit Diagnoses Not on filedocumented in this encounter Care Teams Diesel Service Journeyman Relationship Specialty Start Date End Date Comfort Urban APRN [address] [place] [address] PCP - General Family Medicine 07/19/17 03/11/23 documented as of this encounter
--- OUTSIDE RECORDS SUMMARY | 2023-11-16 14:13 | XMS_ITS | Encounter Summary ---
Author Organization [facility] [place] [address] Care Team Providers Care Retail Specialist Name Role Phone Comfort Urban APRN Primary Care Provider [phone] Encounter Details Date Type Department Care Team (Late st Contact Info) Description 12/25/2021 Telephone [facility] [place] [phone] Anjelica Crisostomo RN Social History Tobacco Use Types Packs/Day [...] encounter Miscellaneous Notes * Telephone Encounter - Anjelica Crisostomo RN - 12/25/2021 4:56 PM EDT Received call from patient reporting that her pain is increasing. She states that her back pain is worse than leg pain, and she has on and off numbness in her feet. She is using tylenol, Nsaids, lidoderm, ice and heat. She has pending surgery with Dr. Wilkins on 01/29/2022. Reviewed above with Dr. Wilkins, spoke with OR schedulers, she is able to move patient's surgery updue to a cancellation, she will connect with patient to offer sooner OR time. Surgery moved up to 01/05/2022. documented in this encounter Plan of Treatment Upcoming Encounters Date Type Department Care Team (Late st Contact Info) Description 12/24/2023 10:00 AM EDT Office [place] [address] Tereso Mohan MD [facility] [place] [address] 12/24/2023 10:30 AM EDT Appointment XRay at [address] [place] [phone] Shelby Aaron, [facility] [place] [address] 12/24/2023 11:30 AM EDT Office Visit [facility] [place] [phone] Shelby Aaron, [facility] [place] [address] documented as of this encounter Visit Diagnoses Not on filedocumented in this encounter Care Teams Retail Specialist Relationship Specialty Start Date End Date Comfort Urban APRN [address] [place] [address] PCP - General Family Medicine 07/19/17 03/11/23 documented as of this encounter
--- OUTSIDE RECORDS SUMMARY | 2023-11-16 14:13 | XMS_ITS | Encounter Summary ---
Author Organization [facility] [place] [address] Care Team Providers Care Crew Trainer Name Role Phone Comfort Urban APRN Primary Care Provider [phone] Reason for Visit * Consultation (Emergency) - Closed Specialty Diagnoses / Procedures Referred By Contac t Referred To Contact Cardiology Diagnoses Preop examination GLASS (dyspnea on exertion) Chest pain, unspecified type Peripheral edema PRE-OP CLEARANCE FOR ORTO SURG : GLASS, CP, peripheral edema Monty Cottrell MD [facility] [place] [address] [facility] [address] [place] [phone] Referral ID Status Reason Start Date Expiration Date V isits Requested Visits Authorized [id number] Closed Consult, Test & Treat 11/14/2021 11/14/2022 1 1 Encounter Details Date Type Department Care Team (Latest Contact Info) Description 12/01/2021 10:00 AM EDT Office Visit Cardiology at [address] [address] Bakari Quinones MD [facility] [place] [address] Chest pain, unspecified type; Pre-operative cardiovascular examination Social History Tobacco Use Types Packs/Day Years [...] Sign Reading Time Taken Comments Blood Pressure 133/74 12/01/2021 9:59 AM EDT Pulse 83 12/01/2021 9:59 AM EDT Temperature - - Respiratory Rate - - Oxygen Saturation 98% 12/01/2021 9:59 AM EDT Inhaled Oxygen Concentration - - Weight 99.1 kg (218 lb 8 oz) 12/01/2021 9:59 AM EDT Height 154.9 cm (5' 1) 12/01/2021 9:59 AM EDT R eported Body Mass Index 41.29 12/01/2021 9:59 AM EDT documented in this encounter Progress Notes * Bakari Quinones MD - 12/01/2021 10:00 AM EDT Images from the original note were not included. CARDIOLOGY NEW OUTPATIENT PRIMARY CARE PROVIDER: Comfort Urban APRN PROBLEM LIST: Patient Active Problem List Diagnosis ??? Seizure-like activity ??? Radiculopathy of lumbar region Added automatically from request for surgery [id number] ??? Seizures ??? CIS - Entered not Verified ??? CIS - ASD, S/P repair ??? CIS - Asthma ??? CIS - Depression ??? CIS - Hx CHTN MEDICATIONS: Current Outpatient Medications Medication Sig Dispense Refill ??? lidocaine (Lidoderm) 5% Adhesive Patch, Medicated Apply 1 patch onto the skin daily. (leave on for 12 hours and remove for 12 hours) 30 patch 0 ??? furosemide (Lasix) 20 mg Tablet Take 60 mg by mouth as needed. ??? cloBAZam (Onfi) 10 mg Tablet Take 1 pill in AM and 2 pills in PM 90 tablet 5 ??? cholecalciferol, Vitamin D3, 50 mcg (2,000 unit) Tablet Take 1 tablet by mouth daily. 90 tablet3 ??? meloxicam (MOBIC) 15 mg Tablet Take [...] No current facility-administered medications for this visit. Subjective: Patient ID: Bessie Levy is a 36 y.o. female. HPI: 36 f presents on referral for pre-operative risk assessment. Cardiac history only pertinent for ASDs/p closure with small residual shunt. Was previously followed by Dr Rai (last seen 05/2021) at which time no changes were made She has chronic nyha ii-iii dyspnea. She was recently noted to have peripheral edema; upon the cessation of depakote this dissipated. She describes pressure chest pain at the right mammary, non-exertional. She walks up and down each grocery store aisle as to not forget to get something, without angina nor discordant untoward dyspnea She is under pre-operative evaluation for back surgery. Her ambulation is limited due to back pain,but as aforementioned she is able to walk > 4 METs without cardiovascular symptomatology CAD risk factors: Smoking: non--cigarette Diabetes:0 Hypertension: former; now controlled Family history of premature disease: 0 Obesity: + Other Vascular disease: 0 Objective: Patient Vitals for the past 24 hrs: Pulse BP SpO2 12/01/21 0959 83 133/74 98 % Gen: pleasant female in NAD Cor: rrr, s1/s2 of nl character and amplitude, no m/r/g. Estimated RAP not elevated. Carotids without bruit. Pulm: CTAB. Normal diaphragmatic movement without use of accessory muscles Ext: no edema. Pt ++ TTE: 10/2021 report reviewed Normal bi-v s/f No vhd Small residual asd No diastolic dysfunction. pasp normal Assessment and Plan: Pre-Operative Risk Stratification: Patient's chest pain is atypical by description (right-sided, non-exertional). She has normal echocardiography (including diastolic indices). I do not think stress testing would provide improved diagnostic certainty nor risk stratification. She is not on asa, stati n, nor beta blockade; these do not need to be started. ASD: Although with remnant shunt, there has been no chambre enlargement. No emery-operative management specific to the ASD is required. Given stability, I'm unsure patient requires qyearly followup/echocardiograms. Patient does not require further routine cardiovascular follow-up at this time. Please do not hesitate to contact if questions/concerns arise. Bakari Quinones MD documented in this encounter Plan of Treatment Upcoming Encounters Date Type Department Care Team (Late st Contact Info) Description 12/24/2023 10:00 AM EDT Office Visit Neurology at [place] [phone] Tereso Mohan MD [facility] [place] [address] 12/24/2023 10:30 AM EDT Appointment XRay at [address] [place] [phone] Shelby Aaron [facility] [place] [address] 12/24/2023 11:30 AM EDT Office Visit Pain and Spine Center at [place] [phone] Shelby Aaron [facility] [address] Scheduled Referrals Name Type Priority Associated Diagnoses Orde r Schedule Referral to Cardiology Outpatient Referral STAT Preop examination Radiculopathy of lumbar region GLASS (dyspnea on exertion) Chest pain, unspecified type Peripheral edema Ordered: 11/14/2021 documented as of this encounter Visit Diagnoses Diagnosis Chest pain, unspecified type Pre-operative cardiovascular examination documented in this encounter Care Teams Crew Trainer Relationship Specialty Start Date End Date Comfort Urban APRN [address] [place] [address] PCP - General Family Medicine 07/19/17 03/11/23 documented as of this encounter
--- OUTSIDE RECORDS SUMMARY | 2023-11-16 14:13 | XMS_ITS | Encounter Summary ---
Author Organization Formerly [facility] [place] [address] Care Team Providers Care Piece Worker Name Role Phone Comfort Urban APRN Primary Care Provider [phone] Reason for Visit * Reason Onset Date Comments Patient Education 11/22/2021 VEEG admission Encounter Details Date Type Department Care Team (Late st Contact Info) Description 11/22/2021 [place] [address] Tereso Mohan MD [facility] [place] [address] Patient Education (VEEG admission) Social History Tobacco Use Types Packs/Day Years [...] Telephone Encounter - Bette Carver RN - 11/22/2021 10:31 AM EDT We are calling you to review your admission planned for: 11/23/21 The day of your admission you must call Patient Placement at 10:00 am to confirm there will be a bed available for you. Their phone number is [phone]. Sometimes the hospital does not have an available bed and your admission needs to be postponed. Postponing the admission doesn't happen often, but is a possibility. After admissions has given you the OK to proceed to [facility] for the admission, you will need to arrivein 3C clinic at 1pm. You will have a clinic appointment with the Admitting Neurology Team. The Team will go over, in detail, [...] the bed is ready. Having the clinic appointment prior to going to your bed will help make getting testing started right away once you arrive to your bed. Bring a snack in case you get hungry during your wait. Once you have arrived to your bed, the nurses will check you in and the special effects technician will apply EEG electrodes to your scalp [...] stay. Please bring activities to help keep you occupied while you are here. Items you might consider bringing are DVD's, books, crafts, games, and puzzles. There is a TV in each room. Electronics brought from home will need to be checked by our [employer] Staff. Bring a cell phone or a phone card if you will need to make long distance calls (calls outside of the local [facility] area). Please bring personal toiletries such as toothbrush and paste, deodorant, brush and such. You can bring your own Pajama's but they need to be buttoned or zippered down the front. Know that you will NOT be able to shower until the EEG electrodes are removed on the day of discharge. Current medications and allergies were reviewed, verified and updated as needed. She was instructedto take all medications as prescribed and to NOT attempt to wean any of her medications prior to admission. She was also instructed to bring her Meloxicam with her to the hospital. Even though we just reviewed your medications please bring a list of these medications to the hospital. Please do NOT bring in your medications as they will need to go to the pharmacy during your stay and you will not have access to them until you are discharged. Exceptions are: Control Pills Aptiom Briviact Xcopri Epidiolex Any BRAND name medication Any specialty medication that is hard to obtain. (If the patient is on any of the above medication/medication categories instruct the patient to bring that medication in its medication container to the hospital) There is no smoking on [facility] campus. If you feel this will be an issue for you, please let the doctor know so they can order you a nicotine patch. You will NOT be allowed to be out of bed unassisted during your admission. Any time you are not in the bed or the chair a staff member will be with you. This includes being assisted and monitored forsafety when in the bathroom. When sitting in the chair, you will be asked to wear a vest restraint for safety. When you are in bed the side rails will be up for safety as well. This is to keep you safe during any seizure event you might have. You will have a small IV placed while you are here. This is for safety in case you need medication to stop a seizure quickly. On the day you are discharged you will need to have a ride available and in your hospital room by 10 am. Will this be a problem for you? No Do you have any questions? Bessie had a previous VEEG admission in July and so was familiar with this information. All questions were answered to her satisfaction and she is aware to call the Neurology Clinic should she have any further questions or concerns prior to her admission. Bessie verbalized understanding and agreement to all of the above information and instructions. documented in this encounter Plan of Treatment Upcoming Encounters Date Type Department Care Team (Late st Contact Info) Description 12/24/2023 10:00 AM EDT Office [place] [phone] Teerso Mohan MD [facility] [place] [address] 12/24/2023 10:30 AM EDT Appointment XRay at [address] [place], [place] [phone] Shelby Aaron APRN [facility] [place] [address] 12/24/2023 11:30 AM EDT Office Visit Pain and Spine Center at [facility] [place] [phone] Shelby Aaron APRN [facility] [place] [address] documented as of this encounter Visit Diagnoses Not on filedocumented in this encounter Care Teams Piece Worker Relationship Specialty Start Date End Date Comfort Urban APRN [address] [place] [address] PCP - General Family Medicine 07/19/17 03/11/23 documented as of this encounter
--- OUTSIDE RECORDS SUMMARY | 2023-11-16 14:13 | XMS_ITS | Encounter Summary ---
[place] [address] Care Team Providers Care Digital Sales Director Name Role Phone Rajni Comfort MONTALVO Primary Care Provider [phone] Encounter Details Date Type Department Care Team (Latest Contact Info) Description 11/07/2021 12:00 PM EDT TH Visit (TeleHealth) [place] [address] Charly Wilkins MD [facility] [place] [address] Radiculopathy of lumbar region; Congenital anomalies of spine; Spondylolisthesis at L4-L5 level Social History Tobacco [...] as of this encounter Progress Notes * Charly Wilkins MD - 11/07/2021 12:00 PM EDT Images from the original note were not included. [facility] MD MS Comfort Torres APRN [address] [place] [address] [facility] [place] [address] Dear Colleagues, I had the pleasure of seeing this patient at the [facility] @ [facility] for surgical evaluation. Last visit 10/10/2021. Proposed L4-5 posterior lumbar decompression and fusion. CT 10/31/2021 her facet was shown to be not intact at L4-5. She is still in the middle work-up. She is scheduled for CAT scan on 11/20/2021 for that work-up. Abdullahi facilitate that. She is to be cleared for surgical intervention before proceeding. I talked tothe nursing staff here about this. All questions were answered concerning the surgical intervention. Sincerely, Charly Wilkins MD [facility] Aluminum Siding Mechanic - Orthopedic Spine Surgery Drupal Programmer - Department of Orthopedic Surgery / Academics and Research Battery Wrecker Operator - [facility] 11/19/2021 Spine Center Response Trends Patient-reported scores: myD-H Spine Questionnaire responses 10/10/2021 Oswestry Disability Index (Range: 0-100) 52 (Severe disability) PROMIS-10 Physical Health Score 29.6 PROMIS-10 Mental Health Score 43.5 documented in this encounter Plan of Treatment Upcoming Encounters Date Type Department Care Team (Late st Contact Info) Description 12/24/2023 10:00 AM EDT Office Visit Neurology at [place] [phone] Tereso Mohan MD [facility] [place] [address] 12/24/2023 10:30 AM EDT Appointment XRay at [address] [place] [phone] Shelby Aaron APRN [facility] [place] [address] 12/24/2023 11:30 AM EDT Office Visit [facility] [place] [phone] Shelby Aaron APRN [facility] [place] [address] documented as of this encounter Visit Diagnoses Diagnosis Radiculopathy of lumbar region Thoracic or lumbosacral neuritis or radiculitis, unspecified 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
--- OUTSIDE RECORDS SUMMARY | 2023-11-16 14:13 | XMS_ITS | Encounter Summary ---
Author Organization [facility] [place] [address] Care Team Providers Care Thread Winder Automatic Name Role Phone JaydonComfort king [place] Primary Care Provider [phone] Reason for Visit * Reason Comments Pain Leg Swelling bilateral Encounter Details Date Type Department Care Team (Late st Contact Info) Description 11/17/2021 3:02 AM EDT - 11/17/2021 7:21 AM EDT Emergency [place] [address] Cassie Garcia MD [facility] [place] [address] Flor Lynn DO [facility] [place] [address] Chronic bilateral low back pain with bilateral sciatica; Generalized edema Discharge Disposition: Home Social History Tobacco Use [...] Sign Reading Time Taken Comments Blood Pressure 97/55 11/17/2021 7:00 AM EDT Pulse 60 11/17/2021 4:00 AM EDT Temperature 37 ??C (98.6 ??F) 11/17/2021 3:19 AM EDT Respiratory Rate 20 11/17/2021 7:00 AM EDT Oxygen Saturation 97% 11/17/2021 7:00 AM EDT Inhaled Oxygen Concentration - - Weight 102.5 kg (226 lb) 11/17/2021 3:19 AM EDT Height 154.9 cm (5' 1) 11/17/2021 3:19 AM EDT Body Mass Index 42.7 11/17/2021 3:19 AM EDT documented in this encounter Discharge Instructions * Discharge Instructions* Cassie Garcia MD - 11/17/2021 6:34 AM EDT Your neurologist can make recommendations for further pain control measures that will not interferewith your anticonvulsant medications. Your leg swelling is likely due to lymphedema - sometimes this has a known underlying cause but usually it is either inherited from your family, arises from a spontaneous (random) gene mutation or isidiopathic (no cause identified). A test called lymphoscintigraphy can sometimes be used to test the function of your lymphatic system. Compression stockings, lymphatic massage and elevation of the legs can be important in the treatment of this kind of swelling. * Attachments The following attachments cannot be sent through Care Everywhere. * Back Pain (Cymro) * Low Back Pain: Exercises (Cymro) documented in this encounter Medications at Time [...] by mouth 2 times daily. 01/08/2022 03/13/2022 furosemide (Lasix) 20 mg Tablet Take 60 mg by mouth as needed. 11/03/2021 01/08/2022 cloBAZam (Onfi) 10 mg Tablet Take 1 pill in AM and 2 pills in PM 90 tablet 5 09/19/2021 03/13/2022 divalproex EC (Depakote) 250 mg Tablet, Delayed Release (E.C.) 250mg in the morning, 500mg nightly 90 tablet 11 06/05/2021 11/29/2021 meloxicam (MOBIC) 15 mg Tablet Take 1 tablet by mouth daily. 30 tablet 12 11/15/2020 12/12/2021 citalopram (CELEXA) 20 mg Tablet Take 40 mg by mouth daily. 0 02/03/2018 03/12/2023 documented as of this encounter ED Notes * Cassie Garcia MD - 11/17/2021 7:21 AM EDT Please see separately attested and addended medical student note for details of this visit Cassie Garcia MD 11/30/21 0257 documented in this encounter Miscellaneous Notes * Med Student Progress Note - Lamar Matthew - 11/17/2021 4:16 AM EDT ED PROVIDER NOTE Patient: Bessie Levy Age (): 36 y.o. (1985) SUBJECTIVE CC: Chief Complaint Patient presents with ??? Pain ??? Leg Swelling bilateral HPI: Bessie Levy is a 36 y.o. female with PMH significant for ASD (surgical closure at age 16), obesity, seizures, back pain who presented to the ED for lumbar radiculopathy and edema. She was in the process of preoperative risk assessment for lumbar decompression surgery when she developed new bilateral lower extremity swelling. There was concern for cardiac etiology given historyof ASD with surgical closure. She underwent echo revealing mild LVH, LVEF 60%, and small ASD with L->R shunting. She also underwent CT C/A/P which was notable for a L ovarian cyst with question of soft tissue component vs. Layering debris. She had a referral to screen printer onc which is in process. She is also awaiting a consult with [facility] cardiology though cardiology at OSH did not feel her symptoms were cardiac. Currently denies fever, chills, chest pain, SOB, abdominal pain, dysuria, hematuria, flank pain. Hx: PMH, PSH, SH, and FH reviewed. No pertinent changes or recent events. ROS: A 10 point review of systems was performed and was negative aside from pertinent positives listed in HPI. OBJECTIVE VS: BP 136/73 Pulse 67 Temp 37 ??C (98.6 ??F) (Oral) Resp 18 Ht 154.9 cm (5' 1) Wt 102.5 kg (226 lb) SpO2 97% BMI 42.70 kg/m?? PE: General: This is a well-nourished, well-developed female who appears her stated age. Skin: Color and turgor appropriate. Head: Atraumatic and normocephalic. Neck: Symmetrical with midline trachea. Eyes: Visual acuity grossly intact. Sclera anicteric. Ears: Hearing grossly intact to normal conversation. Nose: No bleeding or discharge. Chest/Pulmonary: No respiratory distress. Breathing unlabored. CTAB Cardiovascular: Warm extremities. Normal rate. Regular rhythm Abdomen: Non-tender to palpation in all quadrants. No rebound or guarding. Musculoskeletal: No gross deformities to the extremities. 3+ pitting edema bilateral feet. Nonpitting edema to knees. Neurological: Attention, concentration, language, and fund of knowledge are within expected range. Speech is fluent with normal content. Psychiatric: Patient cooperative with appropriate behavior, thought content, and affect. ED Course: - Medications and fluid administered: Medications ketorolac (Toradol) (30 mg/mL) injection 15 mg (15 mg Intravenous Given 11/17/21531) lidocaine (Lidoderm) 5% patch 1 patch (1 patch Transdermal Patch Applied 11/17/21531) And lidocaine (Lidoderm) topical patch REMOVAL (has no administration in time range) - I have reviewed the labs, which are significant for: n/a No results found for this or any previous visit (from the past 24 hour(s)). - I have reviewed the imaging, which is significant for: n/a No orders to display - I have reviewed the EKG, which is significant for: n/a - I performed the following procedure(s): none ASSESSMENT & PLAN MDM: Bessie Levy is a 36 y.o. female with ASD (surg closure at age 16), obesity, seizures, back pain who presented to the ED for lumbar radiculopathy and edema. DDX: Unlikely cord compression given bowel/bladder control, absence of saddle anesthesia. More likely exacerbation of known radiculopathy. Swelling remains of unclear etiology. Unlikely cardiac given recent normal TTE. Unlikely renal given normal BMP. Possible lymphedema given lack of response to lasix, or hormone producing cystic lesion, which is pending screen printer onc workup. She is less bothered by this than her pain. PLAN: - lidocaine patch - toradol 15 mg q6h prn - rec f/u with Dr. Mohan as outpatient to eval whether contribution of seizure meds to edema Lamar Matthew, MS4 11/17/21 4:16 AM Associated attestation - Cassie Garcia MD - 11/30/2021 2:57 AM EDT This visit was performed jointly with the medical student, who also served as a scribe. The patient???s history was validated in the patient???s presence. I performed the full exam as documented by the student. I personally reviewed all applicable documented studies and diagnostic images. The assessment and plan was formulated at my direction. Did this case involve critical care? No Any additions to or discrepancies from the plan of care as documented by the medical student are noted below: documented in this encounter Plan of Treatment Upcoming Encounters Date Type Department Care Team (Late st Contact Info) Description 12/24/2023 10:00 AM EDT [place] [phone] Tereso Mohan MD [facility] [place] [address] 12/24/2023 10:30 AM EDT Appointment XRay at [address] [place] [phone] Shelby Aaron [place] IN [facility] [place] [address] 12/24/2023 11:30 AM EDT Office Visit [place] [phone] Shelby Aaron [facility] [address] documented as of this encounter Visit Diagnoses Diagnosis Chronic bilateral low back pain with bilateral sciatica Generalized edema Edema documented in this encounter Administered Medications Inactive Administered Medications - up to 3 most recent administrations Medication Order MAR Action Action Date Dose Rate Site ketorolac (Toradol) (30 mg/mL) injection 15 mg 15 mg, Intravenous, EVERY 6 HOURS PRN, Starting on Sat11/17/21 at 0458, Until Sat11/17/21 at 0921, Pain, Routine Given 11/17/2021 5:32 AM EDT 15 mg lidocaine (Lidoderm) 5% patch 1 patch 1 patch, Transdermal, EVERY 24 HOURS, First dose on Sat11/17/21 at 0530, Until Discontinued, Apply patch(es) for 12 hours, and then remove for 12 hours., Routine Patch Applied 11/17/2021 5:32 AM EDT 1 patch 08- Back Lower (Right) lidocaine (Lidoderm) topical patch REMOVAL Transdermal, EVERY 24 HOURS, First dose on Sat11/17/21 at 1730, Until Discontinued, Remove lidocaine 5% patch documented in this encounter Active and Recently Administered Medications Times are shown in EDT. Scheduled Medication Order 11/15/2021 11/16/2021 11/17/2021 lidocaine (Lidoderm) 5% patch 1 patch(Linked Group 1) 1 patch, Transdermal, EVERY 24 HOURS, First dose on Sat11/17/21 at 0530, Until Discontinued, Apply patch(es) for 12 hours, and then remove for 12 hours., Routine 0532 (Patch Applied - Provider: Jennifer Park RN - Comment: midline) lidocaine (Lidoderm) topical patch REMOVAL(Linked Group 1) Transdermal, EVERY 24 HOURS, First dose on Sat11/17/21 at 1730, Until Discontinued, Remove lidocaine 5% patch PRN Medication Order 11/15/2021 11/16/2021 11/17/2021 ketorolac (Toradol) (30 mg/mL) injection 15 mg 15 mg, Intravenous, EVERY 6 HOURS PRN, Starting on Sat11/17/21 at 0458, Until Sat11/17/21 at 0921, Pain, Routine 0532 (Given - Provid er: Jennifer Park RN - Comment: given IM right deltoid OK per MD no IV access) Linked Groups Order Group 1: lidocaine (Lidoderm) 5% patch 1 patchJump to med 1 patch, Transdermal, EVERY 24 HOURS, First dose on Sat11/17/21 at 0530, Until Discontinued, Apply patch(es) for 12 hours, and then remove for 12 hours., Routine And lidocaine (Lidoderm) topical patch REMOVALJump to med Transdermal, EVERY 24 HOURS, First dose on Sat11/17/21 at 1730, Until Discontinued, Remove lidocaine 5% patch documented in this encounter Care Teams Thread Winder Automatic Relationship Specialty Start Date End Date Comfort Urban, [place] [address] [place] [address] PCP - General Family Medicine 07/19/17 03/11/23 documented as of this encounter
--- OUTSIDE RECORDS SUMMARY | 2023-11-16 14:13 | XMS_ITS | Encounter Summary ---
Author Organization [facility] [place] [address] Care Team Providers Care Motorcycle Tester Name Role Phone Comfort Urban APRN Primary Care Provider Encounter Details Date Type Department Care Team (Late st Contact Info) Description 11/08/2021 12:00 PM EDT [place] [address] Tereso Mohan MD [facility] DR NEUROLOGY [place] [address] Generalized edema Social History Tobacco Use Types Packs/Day Years [...] Sign Reading Time Taken Comments Blood Pressure 126/78 11/08/2021 11:51 AM EDT Pulse 78 11/08/2021 11:51 AM EDT Temperature - - Respiratory Rate - - Oxygen Saturation - - Inhaled Oxygen Concentration - - Weight 98.9 kg (218 lb) 11/08/2021 11:5 1 AM EDT on scale with shoes on Height 154.9 cm (5' 1) 11/08/2021 11:5 1 AM EDT reported Body Mass Index 41.19 11/08/2021 11:51 AM EDT documented in this encounter Progress Notes * Tereso Mohan MD - 11/08/2021 12:00 PM EDT Neurology clinic note Chief [...] ?? 2. EEG: ?- Routine EEG:Done at [facility] 05/05/18: Normal study. ?? 3. Epilepsy Monitoring [...] was taken to the emergency room at [facility] where she was held overnight. I spoke with the hospitalist, and recommendedsome adjustment in medication with increase in the dose of Topamax, and discharge home with immediate follow-up the next day in our clinic. After being seen in our clinic here she was put back on a low dose of Depakote. As of 2019 the patient was doing reasonably well. She has been seizure-free for over a year. She istolerating the combination of Depakote and Topamax. The [...] able to continue working full-time at the [employer]. As of 2020 she is doing quite well. She had one breakthrough convulsive seizure associated with missed doses of medication. She has had no other major medical problems. 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 She is having some mid back pain without lumbar radicular symptoms. As noted earlier she had a lumbar epidural steroid injection for symptoms of sciatica with good results. Interval History: As of 2021 the situation is problematic. She has had another seizure in May. From her boyfriend's description it seems that she had eitherpetit mal status, or prolonged focal seizures with altered awareness. She had waxing and waning responsiveness. She was having some minor tremors. She did not have a convulsion. Her dose of Depakote was increased from 250 mg twice daily to 250, 500 mg at [facility]. There have been no additional events in the past month. We did video EEG monitoring and surprisingly Showed no seizures and very few epileptic abnormalities in the EEG. She was discharged on a stable regimen of topiramate and Depakote. She continues to have a mild tremor that is somewhat worse since increasing Depakote she is also having a lot of paresthesias in her hands attributed to topiramate. She has less symptoms in her feet.We started a trial of clobazam with a plan to taper off topiramate. She is now off topiramate She continues to have musculoskeletal pain in the neck and back. She was better following lumbar epidural steroid injection. However the benefit did not last, and now surgery is planned. Surgery is however on hold because she appears to have developed generalized edema. We do not at present have an explanation. 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 Currently working at the [employer]. ?? Family history: There is no family [...] Outpatient Medications Medication Sig Dispense Refill ??? furosemide (Lasix) 20 mg Tablet Take 60 mg by mouth as needed. ??? cloBAZam (Onfi) 10 mg Tablet Take 1 pill in AM and 2 pills in PM 90 tablet 5 ??? divalproex EC (Depakote) 250 mg Tablet, [...] murmur, click, rub or gallop Abdomen: No obvious organomegaly, but abdomen appears distended. Questionable fluid wave, Extremities: Significant pitting edema 2-3+ bilaterally Mental status: Mentally clear, speech normal. [...] response was flexor bilaterally. ?? Cerebellar: Normal [id number] with mild action tremor. ?? Gait: gait was normal. 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 EEG: Routine EEG:Done at [facility] 05/05/18: Normal study. Blood Tests: Blood tests [...] B1, whole blood Video EEG monitoring requested Orders Placed This Encounter Procedures ??? Valproic Acid Level, Total ??? Hepatic Function Panel ??? Basic Metabolic Panel (non-fasting) ??? TSH ??? T4 Total ??? Protein Electrophoresis, serum ??? Prothrombin Time ??? Lipase ??? Amylase ??? Ammonia ??? Prothrombin Time ??? APTT ??? Thrombin time ??? Fibrinogen ??? D-Dimer, Quantitative ?? Impression and plan: There continue to be several neurological issues here. 1. There is convincing evidence now that she has epilepsy, and that she probably needs Depakote forseizure control. 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 It is reassuring that MRI isnormal. She is on a moderate dose of Depakote and having some side effects of tremor. In view of her recent seizures, I think we should leave this alone for now. She is doing well on the combination of Depakote and clobazam. Topiramate produced significant paresthesia 2. Psychiatrically she looks like she is doing well. It is reasonable to can keep her on Abilify and Celexa as she suffered from suicidal depression in the past. 3. There is some doubt in my mind as to how much the numbness in her hands is due to topiramate andhow much is due to a recrudescence of carpal tunnel syndrome. I am requesting electrical studies. 4. She was complaining of worsening sciatic pain and paresthesias on the right. Her exam is relatively benign now, but there was some sensory loss on the medial aspect of the leg and ankle. MRI findings were confirmatory as noted above. Lumbar epidural steroid injections were definitely helped. Sheis having a recrudescence of symptoms on the left side. She has been seen in orthopedics and surgery is planned, but is on hold at the moment until we have the problem of edema sorted out 5. She has gained a lot of weight, and also now appears to have significant edema. I do not have a good explanation for this. Her [employer] administrator did not think it was cardiac. She is scheduled to get CTscan of abdomen and pelvis. I am trying to expedite this. I am screening her with additional blood tests today. Thank you for this consultation. I will see her back in a few weeks or sooner if necessary Tereso Mohan [place] [address] Pager #[phone] Email: [email or web address] CC: Comfort Rai MD documented in this encounter Plan of Treatment Upcoming Encounters Date Type Department Care Team (Late st Contact Info) Description 12/24/2023 10:00 AM EDT [place] [address] Tereso Mohan MD [facility] DR NEUROLOGY DEPT [place] [id number] 12/24/2023 10:30 AM EDT Appointment XRay at [address] [place] [address] Shelby Aaron, [facility] [place] [address] 12/24/2023 11:30 AM EDT Office Visit Pain and Spine Center at [facility] [place] [place] [address] Shelby Aaron, [facility] [place] [address] Scheduled Orders Name Type Priority Associated Diagnoses Orde r Schedule Prothrombin Time Lab Routine Generalized edema Expected: 11/08/2021, Expires: 11/09/2022 documented as of this encounter Procedures Procedure Name Priority Date/Time Associated Diagnosis Comments HC D-DIMER, QUANTITATIVE Routine 11/08/2021 1:27 PM EDT Generalized edema HC PARTIAL THROMBOPLASTIN TIME Routine 11/08/2021 1:27 PM EDT Generalized edema HC THROMBIN TIME Routine 11/08/2021 1:27 PM EDT Generalized edema HC PROTHROMBIN TIME Routine 11/08/2021 1 :27 PM EDT Generalized edema HC FIBRINOGEN TITER Routine 11/08/2021 1 :27 PM EDT Generalized edema HC THYROID STIMULATING HORMONE, SERUM Routine 11/08/2021 1:27 PM EDT Generalized edema HC TOTAL T4 Routine 11/08/2021 1:27 PM EDT Generalized edema HC SERUM PROT. ELECTROPHORESIS Routine 11/08/2021 1:27 PM EDT Generalized edema HC LIPASE Routine 11/08/2021 1:27 PM EDT Generalized edema HC AMYLASE Routine 11/08/2021 1:27 PM EDT Generalized edema HC AMMONIA, PLASMA Routine 11/08/2021 1: 27 PM EDT Generalized edema HC VALPROIC ACID Routine 11/08/2021 1:27 PM EDT Generalized edema HEPATIC FUNCTION PANEL Routine 2 1:27 PM EDT Generalized edema BASIC METABOLIC PANEL Routine 11/08/2021 1:27 PM EDT Generalized edema documented in this encounter Results * D-Dimer, Quantitative (11/08/2021 1:27 PM EDT) D-Dimer 236 0 - 500 FEU ng/ml [facility] Comment: The D-Dimer assay is used to aid in the diagnosis of deep vein thrombosis and pulmonary embolism. A normal D-Dimer result (less than 500 FEU ng/ml) has a negative predictive value of approximately 95% for the exclusion of acute PE and DVT when there is low to moderate pretest probability. To use age adjusted cutoff: Age x 10 ng/ml. Blood 11/08/2021 1:27 PM EDT 11/08/2021 1:41 PM EDT Narrative Resulting Agency Comment Spec In Lab Tereso Mohan MD HEMATOLOGY ORDERABLE S [facility] [place] [address] * (ABNORMAL) Fibrinogen (11/08/2021 1:27 PM EDT) Fibrinogen 185(L) 200 - 393 mg/dL [facility] Comment: A fibrinogen level >100 mg/dL is adequate for hemostasis in most patients without underlying bleeding disorders. Blood 11/08/2021 1:27 PM EDT 11/08/2021 1:41 PM EDT Narrative Resulting Agency Comment Spec In Lab Tereso Mohan MD HEMATOLOGY ORDERABLE S Performing Organization Address City/[facility]/ZIP Co de Phone Number [facility] [place] [address] * (ABNORMAL) Thrombin time (11/08/2021 1:27 PM EDT) Thrombin Time 18(H) 10 - 17 sec [facility] Comment: A prolongation in the thrombin time (>20 seconds) may be indicative of hypofibrinogenemia or dysfibrinogenemia. The thrombin time will be prolonged, often markedly so, by the presence of heparin or direct thrombin inhibitors (argatroban, bivalirudin, dabigatran) in the specimen. Blood 11/08/2021 1:27 PM EDT 11/08/2021 1:41 PM EDT Narrative Resulting Agency Comment Spec In Lab Tereso Mohan MD HEMATOLOGY ORDERABLE S Performing Organization Address [facility] Co de Phone Number [facility] [place] [address] * APTT (11/08/2021 1:27 PM EDT) Partial Thromboplastin Time 30 25 - 37 sec [facility] Comment: The PTT is NOT appropriate for heparin monitoring. Use the Anti-Xa level for heparin monitoring (HEP UFH) or LMWH monitoring (HEP LMW). A PTT less than 37 seconds generally indicates adequate hemostasis. Blood 11/08/2021 1:27 PM EDT 11/08/2021 1:41 PM EDT Narrative Resulting Agency Comment Spec In Lab Tereso Mohan MD HEMATOLOGY ORDERABLE S [facility] [place] [address] * Prothrombin Time (11/08/2021 1:27 PM EDT) Prothrombin Time 10.4 9.4 - 12.5 sec [facility] International Normalization Ratio 0.9 [facility] Comment: An INR <2.0 indicates adequate procoagulant activity for hemostasis in most patients without underlying bleeding disorders, though the INR may not adequately reflect hemostatic capacity in patients with liver disease and synthetic impairment. The recommended target INR range for therapeutic anticoagulation is 2.0 ? 3.0 for most applications, though lower and higher ranges may be appropriate depending on clinical circumstances. Blood 11/08/2021 1:27 PM EDT 11/08/2021 1:41 PM EDT Narrative Resulting Agency Comment Spec In Lab Tereso Mohan MD HEMATOLOGY ORDERABLE S Performing Organization Address City/[facility]/ZIP Co de Phone Number [facility] [place] [address] * Ammonia (11/08/2021 1:27 PM EDT) Ammonia 34 11 - 51 mcmol/L [facility] Blood 11/08/2021 1:27 PM EDT 11/08/2021 1:32 PM EDT Narrative Resulting Agency Comment Spec In Lab Tereso Mohan MD CHEMISTRY ORDERABLES Performing Organization Address City/[facility]/ZIP Co de Phone Number [facility] [place] [address] * Amylase (11/08/2021 1:27 PM EDT) Amylase 39 28 - 100 unit/L [facility] Blood 11/08/2021 1:27 PM EDT 11/08/2021 1:41 PM EDT Narrative Resulting Agency Comment Spec In Lab Tereso Mohan MD CHEMISTRY ORDERABLES Performing Organization Address City/[facility]/ZIP Co de Phone Number [facility] [place] [address] * Lipase (11/08/2021 1:27 PM EDT) Lipase 17 0 - 60 unit/L [facility] Blood 11/08/2021 1:27 PM EDT 11/08/2021 1:41 PM EDT Narrative Resulting Agency Comment Spec In Lab Tereso Mohan MD CHEMISTRY ORDERABLES Performing Organization Address City/[facility] Co de Phone Number [facility] [place] [address] * Protein Electrophoresis, serum (11/08/2021 1:27 PM EDT) Pathologist [facility] Total Prot Electrophoresis 6.3 6.1 - 8.0 g/dL [facility] Albumin Electrophoresis 3.87 3.20 - 5.20 g/dL [facility] Alpha 1 Globulin 0.18 0.10 - 0.30 g/dL [facility] Alpha 2 Globulin 0.69 0.40 - 0.90 g/dL [facility] Beta Globulin 0.82 0.50 - 1.00 g/dL [facility] Gamma Globulin 0.74 0.50 - 1.30 g/dL [facility] M1 Band None Detected None Detected [facility] Blood 11/08/2021 1:27 PM EDT 11/08/2021 1:41 PM EDT Narrative Resulting Agency Comment Spec In Lab Tereso Mohan MD CHEMISTRY ORDERABLES Performing Organization Address City/[facility]/ZIP Co de Phone Number [facility] [place] [address] * (ABNORMAL) T4 Total (11/08/2021 1:27 PM EDT) T4 Total 4.8(L) 5.3 - 11.6 mcg/dL [facility] Comment: Reference Interval (mcg/dL): Females: ??First Trimester: 6.3-13.5 ??Second Trimester: 7.1-14.3 ??Third Trimester: 6.9-14.1 Blood 11/08/2021 1:27 PM EDT 11/08/2021 1:41 PM EDT Narrative Resulting Agency Comment Spec In Lab Tereso Mohan MD CHEMISTRY ORDERABLES Performing Organization Address [facility] Co de Phone Number [facility] [place] [address] * TSH (11/08/2021 1:27 PM EDT) Thyroid Stimulating Hormone 1.48 0.27 - 4.20 mcIU/mL [facility] Comment: Reference Interval (mcIU/mL): Females: ??First Trimester: 0.23-3.88 ??Second Trimester: 0.22-3.90 ??Third Trimester: 0.44-4.66 Blood 11/08/2021 1:27 PM EDT 11/08/2021 1:41 PM EDT Narrative Resulting Agency Comment Spec In Lab Tereso Mohan MD CHEMISTRY ORDERABLES Performing Organization Address [facility] Co de Phone Number [facility] [place] [address] * (ABNORMAL) Basic Metabolic Panel (non-fasting) (11/08/2021 1:27 PM EDT) Glucose 103 65 - 199 mg/dL [facility] Comment:Diabetes: >=200 mg/d L plus symptoms Blood Urea Nitrogen 10 8 - 18 mg/dL [facility] Creatinine 0.68(L) 0.70 - 1.20 mg/dL [facility] Sodium 137 135 - 145 mmol/L [facility] Potassium 3.9 3.5 - 5.0 mmol/L [facility] Comment: Please note: ??Patients with WBC >100,000 may have falsely elevated Potassium levels. ??For accurate Potassium quantification in these patients send serum separator tube (gold top) for subsequent determinations. ??Contact the Clinical Chemistry Laboratory if there are any questions. Chloride 101 98 - 107 mmol/L [facility] Carbon Dioxide 24 22 - 31 mmol/L [facility] Anion Gap 12 5 - 15 mmol/L [facility] Calcium 9.2 8.5 - 10.5 mg/dL [facility] Est Glomerular Filtration Rate 114 >=60 mL/min/1. 73 m?? [facility] Comment: This patient's estimated [...] and symptoms in addition to eGFR. Blood 11/08/2021 1:27 PM EDT 11/08/2021 1:41 PM EDT Narrative Resulting Agency Comment Spec In Lab Tereso Mohan MD CHEMISTRY ORDERABLES [facility] [place] [address] * (ABNORMAL) Hepatic Function Panel (11/08/2021 1:27 PM EDT) Protein, Total 6.6 6.1 - 8.0 g/dL [facility] Albumin 4.1 3.2 - 5.2 g/dL [facility] Aspartate Aminotransferase 17 0 - 30 unit/L [facility] Alanine Aminotransferase 21 0 - 30 unit/L [facility] Alkaline Phosphatase 24(L) 35 - 105 unit/L [facility] Bilirubin, Total 0.2 0.2 - 1.3 mg/dL [facility] Bilirubin, Direct 0.1 0.0 - 0.3 mg/dL [facility] Blood 11/08/2021 1:27 PM EDT 11/08/2021 1:41 PM EDT Narrative Resulting Agency Comment Spec In Lab Tereso Mohan MD CHEMISTRY ORDERABLES [facility] [place] [address] * Valproic Acid Level, Total (11/08/2021 1:27 PM EDT) Valproic Acid 65 mg/L [facility] Comment: Therapeutic Range: Anticonvulsant Therapy: ??50-100 mg/L Manic Episodes Associated with Bipolar Disorder: ??50-125 mg/L Blood 11/08/2021 1:27 PM EDT 11/08/2021 1:41 PM EDT Narrative Resulting Agency Comment Spec In Lab Tereso Mohan MD CHEMISTRY ORDERABLES Performing Organization Address City/[facility]/ZIP Co de Phone Number [facility] [place] [address] documented in this encounter Visit Diagnoses Diagnosis Generalized edema Edema documented in this encounter Care Teams Motorcycle Tester Relationship Specialty Start Date End Date Comfort Urban, [place] [address] [place] [address] PCP - General Family Medicine 07/19/17 03/11/23 documented as of this encounter
--- OUTSIDE RECORDS SUMMARY | 2023-11-16 14:13 | XMS_ITS | Encounter Summary ---
[place] [address] Care Team Providers Care Matrix Repairer Name Role Phone Comfort Urban EXTENSION COURSE COORDINATOR Primary Care Provider [phone] Encounter Details Date Type Department Care Team (Late st Contact Info) Description 11/01/2021 Telephone [facility] [place] [phone] Susanna Jason LPN Social History Tobacco Use [...] Telephone Encounter - Susanna Jason LPN - 11/01/2021 3:16 PM EDT Bessie called reporting that her legs are swelling and her heart doctor does not think it is heartrelated, she is on Lasix, she is currently scheduled for surgery with Dr. Wilkins on 11-20-21 Posterior lumbar decompression instrumented fusion with TLIF L4-5 autograft allograft. She would like Dr. Wilkins's input and to confirm she is still on for 11-20-[address] Wilkins and requesting he respond to Derri as I am out of the office until 11-14-21. documented in this encounter Plan of Treatment Upcoming Encounters Date Type Department Care Team (Late st Contact Info) Description 12/24/2023 10:00 AM EDT Office [place] [address] Tereso Mohan MD [facility] [place] [address] 12/24/2023 10:30 AM EDT Appointment XRay at [address] [place] [address] Shelby Aaron EXTENSION COURSE COORDINATOR [facility] [place] [address] 12/24/2023 11:30 AM EDT Office Visit [facility] [place] [address] Shelby Aaron APRN [facility] [address] documented as of this encounter Visit Diagnoses Not on filedocumented in this encounter Care Teams Matrix Repairer Relationship Specialty Start Date End Date Comfort Urban APRN [address] [place] [address] PCP - General Family Medicine 07/19/17 03/11/23 documented as of this encounter
--- OUTSIDE RECORDS SUMMARY | 2023-11-16 14:13 | XMS_ITS | Encounter Summary ---
[place] [address] Care Team Providers Care Link Wire Fabric Machine Tender Name Role Phone Comfort Urban APRN Primary Care Provider [phone] Reason for Visit * Reason Onset Date Comments Follow-up 11/13/2021 Encounter Details Date Type Department Care Team (Late st Contact Info) Description 11/13/2021 Telephone [facility] [place] [phone] Jeniffer Hinojosa, RN Follow-up Social History Tobacco Use Types Packs/Day Years [...] Miscellaneous Notes * Telephone Encounter - Jeniffer Hinojosa, RN - 11/13/2021 10:45 AM EDT Call returned to pt in FU to incoming VM message pt left Saturday am stating her PCP was deferring determination re if she was medically cleared for surgery to Dr Wilkins. Pt reports sending her echocardiogram to Dr White the hopes her neurologist would aid her in getting a second opinion. Pt also asking about arrival time for surgery the . Call returned to pt advising her that the first thing needed is to determine if she is medically cleared for surgery; explained that pre-op medical clearance is not a determination that Dr Wilkins, as her surgeon is going to do; explained that the medical clearance is deferred to a PCP or medical provider purposefully. In absence of PCP providing this service; that we would need to arrange a medical eval with Dr Ozuna In absence of PCP providing this service; Requested that Shelly secure outside cardiology consult report, Echo, CT of abdomen and any all'lpertinent labs and notes from PCP with re to planned medical clearance' Requested that shelly arrange a timely preop eval appt with Dr Ardon. Informed pt that she will here from Shelly re appt options. Explained further that once she is cleared for surgery and a surgical date is confirmed; the staff from [facility] will call 1 business day prior to surgery with arrival time, final med review and arrival instructions documented in this encounter Plan of Treatment Upcoming Encounters Date Type Department Care Team (Late st Contact Info) Description 12/24/2023 10:00 AM EDT [place] [address] Tereso Mohan MD [facility] [place] [address] 12/24/2023 10:30 AM EDT Appointment XRay at [address] [place] [address] Shelby Aaron APRN [facility] [place] [address] 12/24/2023 11:30 AM EDT Office Visit [place] [phone] Shelby Aaron APRN [facility] [place] [address] documented as of this encounter Visit Diagnoses Not on filedocumented in this encounter Care Teams Link Wire Fabric Machine Tender Relationship Specialty Start Date End Date Comfort Urban APRN [address] [place] [address] PCP - General Family Medicine 07/19/17 03/11/23 documented as of this encounter
--- OUTSIDE RECORDS SUMMARY | 2023-11-16 14:13 | XMS_ITS | Encounter Summary ---
Author Organization [facility] [place] [address] Care Team Providers Care Cloth Examiner Name Role Phone Comfort Urban APRN Primary Care Provider [phone] Encounter Details Date Type Department Care Team (Late st Contact Info) Description 11/19/2021 [place] [phone] Dorothea Joseph MD [facility] [place] [address] Social History Tobacco Use Types Packs/Day Years [...] encounter Miscellaneous Notes * Telephone Encounter - Dorothea Joseph MD - 11/19/2021 1:08 PM EDT Returned call to Bessie. She reports having 4 seizures yesterday - 3 clustered together in the morning and another one last night. She went to [facility] ED this AM and was loaded with Keppra (she isn't sure how much). They discharged her without making any changes to her medication. She is wondering ifshe should increase her scheduled doses of Depakote or Onfi. At present, she takes Depakote 250mg qAM/500mg qPM. She takes Onfi 10mg qAM/20mg qPM. I recommended she not make any changes at this time. She already took her usual morning meds and also received the Keppra load. Her nighttime doses are twice as large, so I think she should have adequate protection against seizures at least until tomorrow. I'm hesitant to make medication adjustments without evaluating her in person first, as she sounded somewhat drowsy on the phone. I confirmed th at someone else was home to keep an eye on her - she reports her boyfriend went out a few minutes ago to buy cigarettes, but he should be back any minute. I recommended that either her boyfriend or another adult stay with her for the rest of the day. I let her know I would send this message to Dr. Mohan, but also recommended she call into the office tomorrow to discuss if changes need to be made. She should return to the nearest ED if she has any additional seizures. Bessie is in agreement with this plan. Dorothea Joseph MD Neurology PGY3 11/19/2021 documented in this encounter Plan of Treatment Upcoming Encounters Date Type Department Care Team (Late st Contact Info) Description 12/24/2023 10:00 AM EDT Office [place] [address] Tereso Mohan MD [facility] [place] [address] 12/24/2023 10:30 AM EDT Appointment XRay at [address] [place] [address] Shelby Aaron APRN [facility] [place] [address] 12/24/2023 11:30 AM EDT Office Visit [facility] [place] [phone] Shelby Aaron APRN [facility] [place] [address] documented as of this encounter Visit Diagnoses Not on filedocumented in this encounter Care Teams Cloth Examiner Relationship Specialty Start Date End Date Comfort Urban APRN [address] [place] [address] PCP - General Family Medicine 07/19/17 03/11/23 documented as of this encounter
--- OUTSIDE RECORDS SUMMARY | 2023-11-16 14:13 | XMS_ITS | Encounter Summary ---
[place] [address] Care Team Providers Care Internal Communications Specialist Name Role Phone Comfort Urban APRN Primary Care Provider [phone] Encounter Details Date Type Department Care Team (Latest Contact Info) Description 11/23/2021 12:05 PM EDT - 11/23/2021 4:12 PM EDT Hospital Encounter [place] [address] Discharge Disposition: Home Social History Tobacco Use [...] by mouth 2 times daily. 01/08/2022 03/13/2022 levETIRAcetam (Keppra) 500 mg Tablet Take 500 mg by mouth 2 times daily. 11/29/2021 furosemide (Lasix) 20 mg Tablet Take 60 [...] 10:00 AM EDT Office [place] [address] Tereso Mohan MD [facility] [place] [address] 12/24/2023 10:30 AM EDT Appointment XRay at [address] [place] [address] Shelby Aaron [facility] [place] [address] 12/24/2023 11:30 AM EDT Office Visit [facility] Center at [facility] [place] [address] Shelby Aaron SEO STRATEGIST [facility] [place] [address] documented as of this encounter Visit Diagnoses Not on filedocumented in this encounter Care Teams Internal Communications Specialist Relationship Specialty Start Date End Date Comfort Urban APRN [address] [place] [address] PCP - General Family Medicine 07/19/17 03/11/23 documented as of this encounter
--- OUTSIDE RECORDS SUMMARY | 2023-11-16 14:13 | XMS_ITS | Encounter Summary ---
[place] [address] Care Team Providers Care Household Cook Name Role Phone Comfort Urban APRN Primary Care Provider [phone] Reason for Referral * Consultation (Emergency) - Closed Specialty Diagnoses / Procedures Referred By Kristan lucio Referred To Contact Cardiology Diagnoses Preop examination GLASS (dyspnea on exertion) Chest pain, unspecified type Peripheral edema PRE-OP CLEARANCE FOR ORTO SURG : GLASS, CP, peripheral edema Monty Cottrell MD [facility] [place] [address] [facility] Cardiology [address] [place] [phone] Referral ID Status Reason Start Date Expiration Date V isits Requested Visits Authorized [id number] Closed Consult, Test & Treat 11/14/2021 11/14/2022 1 1 * Consultation (Routine) - Closed Specialty Diagnoses / Procedures Referred By Kristan lucio Referred To Contact Gynecology Oncology Diagnoses Left ovarian cyst Monty Cottrell MD [facility] [place] [address] [facility] Burglar Alarm Operator [address] [place] [phone] Referral ID Status Reason Start Date Expiration Date V isits Requested Visits Authorized [id number] Closed Consult, Test & Treat 11/14/2021 11/14/2022 1 1 Reason for Visit * Reason Comments Pre-op Exam Lower back pain Encounter Details Date Type Department Care Team (Late st Contact Info) Description 11/14/2021 9:30 AM EDT Office Visit [place] [address] Monty Cottrell MD [facility] [place] [address] Preop examination; Radiculopathy of lumbar region; GLASS (dyspnea on exertion); Chest pain, unspecified type; Peripheral edema; Left ovarian cyst Social History Tobacco Use Types [...] Sign Reading Time Taken Comments Blood Pressure 116/67 11/14/2021 9:39 AM EDT Pulse 77 11/14/2021 9:39 AM EDT Temperature - - Respiratory Rate - - Oxygen Saturation 97% 11/14/2021 9:39 AM EDT Inhaled Oxygen Concentration - - Weight 99.3 kg (219 lb) 11/14/2021 9:39 AM EDT Height 154.9 cm (5' 1) 11/14/2021 9:39 AM EDT Body Mass Index 41.38 11/14/2021 9:39 AM EDT documented in this encounter Progress Notes * Monty Cottrell MD - 11/14/2021 9:30 AM EDT Images from the original note were not included. CC: Bessie Levy is a 36 y.o. female with the following problems and medications that is being seen in the clinic for consultation at the request of her surgeon Dr. Charly Wilkins for preoperativerisk stratification and management recommendations in anticipation of arthrodesis lumbar spine. HPI - Pain - Location - lower back into the legs, Quality - aching, paresthesia Onset - gradual, Duration - several months, Intensity - moderate to severe, Aggravating factors - standing, walking, bending, twisting Alleviating factors - NSAID, APAP, opiate, rest, topical, Associated - she has gained significant weight since August, she reported paresthesias in her hands and so the Topamax she was on was stopped and she was started on clobazam. Per subsequent evaluation per her PCP she was noted to have significant weight gain and had peripheral edema. She was started on furosemide and titrated up but there has not been any significant improvement in the edema. She does note two visits to local ED for Chest pain. Most recent was on October 28 at [facility] - this was in the left upper chest wall after she was at work that day, she was discharged from the ED. Prior to this she had a visit for chest pain at [facility] and was told it was secondary to her RAD. She has history ofRAD but this has not been bothersome of late. Usually flares in summer. She is not on maintenance Fl ovent and uses albuterol prn. She had low BP in Spring and her BP med was stopped after that. 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 She had Atrial septal repair in past. Patient Active Problem List Diagnosis Code ??? CIS - ASD, S/P repair ??? CIS - Asthma ??? CIS - Depression ??? CIS - Entered not Verified ??? CIS - Hx CHTN ??? Seizures R56.9 ??? Radiculopathy of lumbar region M54.16 ??? Seizure-like activity R56.9 Current Outpatient Medications Medication Sig Dispense Refill [...] No current facility-administered medications for this visit. Social History Occupational History ??? Not on file Tobacco Use ??? Smoking status: Never Smoker ??? Smokeless tobacco: Never Used Vaping Use ??? Vaping Use: Every day Substance and Sexual Activity ??? Alcohol use: Never ??? Drug use: Yes Types: Marijuana Comment: marijuana use daily pt vapes marijuana ??? Sexual activity: Not on file Comment: deferred History reviewed. No pertinent family history. Review of Systems Constitutional: Negative for chills, diaphoresis and fever. Respiratory: Negative for worsening cough, does have exertional shortness of breath and denies current wheezing. Cardiovascular: Negative for current chest pain, palpitations and does have leg swelling. Gastrointestinal: Negative for abdominal pain, anal bleeding and blood in stool. Endocrine: Negative for polydipsia and polyphagia. Genitourinary: Negative for dysuria, flank pain and hematuria. Skin: Negative for pallor and rash. Allergic/Immunologic: Negative for environmental allergies and immunocompromised state. Neurological: Negative for syncope and speech difficulty. Hematological: Negative for adenopathy. Does not have melena. Psychiatric/Behavioral: Negative for confusion, decreased concentration and dysphoric mood. Allergies: No Known Allergies Physical Exam: Last Set of Vitals and Range over past 24 hours: Last value Heart Rate Heart Rate: 77 Blood Pressure BP: 116/67 SpO2 SpO2: 97 % Estimated body mass index is 41.38 kg/m?? as calculated from the following: Height as of this encounter: 154.9 cm (5' 1). Weight as of this encounter: 99.3 kg (219 lb). Physical Exam Constitutional: She is oriented to person, place, and time. She appears well- developed. No distress. HENT: Head: Normocephalic and atraumatic. Eyes: Right eye exhibits no discharge. Left eye exhibits no discharge. No scleral icterus. Neck: Neck supple. No JVD present. Cardiovascular: Normal rate, regular rhythm and normal heart sounds. Exam reveals no gallop and no friction rub. No murmur heard. Pulmonary/Chest: Effort normal and breath sounds normal. No stridor. No respiratory distress. She has no wheezes. She has no rales. She exhibits no spinal tenderness. Abdominal: Soft. Bowel sounds are normal. She exhibits no percussed HSM. There is no CVA tenderness. There is no rebound and no guarding. Musculoskeletal: She exhibits 3+ pitting edema. She ambulates without assistance. She has no drift with dorsiflexion at her ankles. Neurological: She is alert and oriented to person, place, and time. She displays no tremors at restor on intent. Skin: Skin is warm and dry. She is not diaphoretic. No pallor. Psychiatric: She has a normal mood and affect. Her behavior is normal. Judgment and thought contentnormal. Lab Results Component Value Date WBC 9.2 07/04/2021 RBC 4.95 07/04/2021 HGB 14.6 07/04/2021 HCT 44.1 07/04/2021 MCV 89.1 07/04/2021 MCH 29.5 07/04/2021 MCHC 33.1 07/04/2021 PLATELET 254 07/04/2021 RDWCV 11.8 07/04/2021 Lab Results Component Value Date NA 137 11/08/2021 K 3.9 11/08/2021 CL 101 11/08/2021 CO2 24 11/08/2021 BUN 10 11/08/2021 CREATININE 0.68 (L) 11/08/2021 GLUCOSE 103 11/08/2021 CALCIUM 9.2 11/08/2021 ESTGFR 114 11/08/2021 Lab Results Component Value Date AST 17 11/08/2021 ALT 21 11/08/2021 ALKPHOS 24 (L) 11/08/2021 BILITOT 0.2 11/08/2021 BILIDIR 0.1 11/08/2021 Lab Results Component Value Date PT 10.4 11/08/2021 INR 0.9 11/08/2021 PTT 30 11/08/2021 Lab Results Component Value Date CK 36 04/07/2021 Lab Results Component Value Date TSH 1.48 11/08/2021 Lab Results Component Value Date HA1C 5.2 04/07/2021 Lab Results Component Value Date SEDRATE 5 04/07/2021 Estimated Creatinine Clearance: 121.1 mL/min (A) (based on SCr of 0.68 mg/dL (L)). Echocardiogram February [address] Abdomen/Pelvis IMPRESSION Left ovarian cystic lesion with question of dependent layering debris versus soft tissue component. Further characterization can be performed with ovarian protocol MRI. Alternatively short interval follow-up in 2 months with ultrasound may be performed. A/P 1. Preop examination 2. Radiculopathy of lumbar region 3. GLASS (dyspnea on exertion) 4. Chest pain, unspecified type 5. Peripheral edema 6. Left ovarian cyst An urgent referral to cardiology is placed after discussion with her and with the ongoing dyspnea with the peripheral edema and the history of ASD and history of chest pain. We also discussed the ovarian cyst and that if she had her spine surgery with instrumented fusion, this may alter the evaluation with regards MRI (may need a month or more after placement of implant) or even CT (artifact) of h er ovarian cyst and the possibility that a potential soft tissue component of this could at times result in hormonal production and alter homeostasis. Considering the spine symptoms have been chronicand the need for optimization, she was receptive to referral to [facility] [facility] service here for evaluationof that along with the above cardiology referral and will defer her spine surgery until further evaluation and optimization. PLAN - defer her spine surgery to above evaluation and optimization. documented in this encounter Plan of Treatment Upcoming Encounters Date Type Department Care Team (Late st Contact Info) Description 12/24/2023 10:00 AM EDT Office [place] [address] Tereso Mohan MD [facility] [place] [address] 12/24/2023 10:30 AM EDT Appointment XRay at [address] [place] [address] Shelby Aaron [facility] [place] [address] 12/24/2023 11:30 AM EDT Office Visit Pain and Spine Center at [facility] [place] [address] Shelby Aaron OUTSIDE CUTTER [facility] [place] [address] Scheduled Referrals Name Type Priority Associated Diagnoses Orde r Schedule Referral to Gynecologic Oncology Outpatient Referral Routine Left ovarian cyst Ordered: 11/14/2021 Referral to Cardiology Outpatient Referral STAT Preop examination Radiculopathy of lumbar region GLASS (dyspnea on exertion) Chest pain, unspecified type Peripheral edema Ordered: 11/14/2021 documented as of this encounter Visit Diagnoses Diagnosis Preop examination Preoperative examination, unspecified Radiculopathy of lumbar region Thoracic or lumbosacral neuritis or radiculitis, unspecified GLASS (dyspnea on exertion) Other dyspnea and respiratory abnormality Chest pain, unspecified type Peripheral edema Edema Left ovarian cyst Other and unspecified ovarian cyst documented in this encounter Care Teams Household Cook Relationship Specialty Start Date End Date Comfort Urban APRN [address] [place] [address] PCP - General Family Medicine 07/19/17 03/11/23 documented as of this encounter
--- OUTSIDE RECORDS SUMMARY | 2023-11-16 14:13 | XMS_ITS | Encounter Summary ---
Author Organization [facility] [place] [address] Care Team Providers Care Forward Air Controller/Air Officer Name Role Phone Comfort Urban APRN Primary Care Provider [phone] Reason for Visit * Reason Onset Date Comments Appointment 10/31/2021 Encounter Details Date Type Department Care Team (Late st Contact Info) Description 10/31/2021 [place] [address] Tereso Mohan MD [facility] DR [place] [address] Appointment Social History Tobacco Use Types Packs/Day [...] encounter Miscellaneous Notes * Telephone Encounter - Lizett Kimball - 11/01/2021 11:09 AM EDT Please warm transfer to Lizett Duncanhedule EMG Past tab 10/31/2021 * Telephone Encounter - Jeri Villalta - 10/31/2021 9:31 AM EDT Bessie calling in to get her EMG rescheduled. Please call Bessie back to reschedule. * Telephone Encounter - Indigo Julien - 10/31/2021 8:27 AM EDT Copied from CRM #[id number]. Topic: Specialty Dept CRMs - Appointment Needed >> Oct 31, 2021 8:12 AM Brea El wrote: Appt Needed Specialist Tereso Mohan MD, PhD (EMG Test Only) Relationship (if other than patient-full name): Justine [facility] Appt. Type Needed: Other Reason for Visit: Justine called this morning from [facility] and stated that she spoke with patient this morning. Justine states that patient called to cancel her EMG appointment for today, 10/31/2021, at 8:30 am as patient reported that she would not make it to the EMG appointment on time. Justine from [facility] stated that patient is wondering if the clinic may have an opening for this appointment later on today. Please call patient to discuss and advise. Thank you. documented in this encounter Plan of Treatment Upcoming Encounters Date Type Department Care Team (Late st Contact Info) Description 12/24/2023 10:00 AM EDT [place] [address] Tereso Mohan MD [facility] [place] [address] 12/24/2023 10:30 AM EDT Appointment XRay at [address] [place] [address] Shelby Aaron APRN [facility] [place] [address] 12/24/2023 11:30 AM EDT Office Visit [place] [address] Shelby Aaron APRN [facility] [place] [address] documented as of this encounter Visit Diagnoses Not on filedocumented in this encounter Care Teams Forward Air Controller/Air Officer Relationship Specialty Start Date End Date Comfort Urban APRN [address] [place] [address] PCP - General Family Medicine 07/19/17 03/11/23 documented as of this encounter
--- OUTSIDE RECORDS SUMMARY | 2023-11-16 14:13 | XMS_ITS | Encounter Summary ---
[place] [address] Care Team Providers Care Food Safety Specialist Name Role Phone Comfort Urban APRN Primary Care Provider [phone] Reason for Referral * Diagnostic Test (Routine) - Closed Specialty Diagnoses / Procedures Referred By Contac t Referred To Contact Radiology Diagnoses Abdominal distention Abdominal pain, generalized Abnormal weight gain Procedures CT Abdomen & Pelvis w Contrast Comfort Urban APRN [address] [place] [address] [facility] [place] [address] Referral ID Status Reason Start Date Expiration Date V isits Requested Visits Authorized [id number] Closed Specialty Service Requested 11/07/2021 05/08/2023 1 1 Reason for Visit * Diagnostic Test (Routine) - Closed Specialty Diagnoses / Procedures Referred By Contac t Referred To Contact Radiology Diagnoses Abdominal distention Abdominal pain, generalized Abnormal weight gain Procedures CT Abdomen & Pelvis w Contrast Comfort Urban APRN [address] [place] [address] [facility] [place] [address] Referral ID Status Reason Start Date Expiration Date V isits Requested Visits Authorized [id number] Closed Specialty Service Requested 11/07/2021 05/08/2023 1 1 Encounter Details Date Type Department Care Team (Latest Contact Info) Description 11/09/2021 8:26 AM EDT - 11/09/2021 11:59 PM EDT Hospital En[place] [address] Comfort Urban, CHURN DRILLER [address] [place] [address] Abdominal distention; Abdominal pain, generalized; Abnormal weight gain Discharge Disposition: Home Social History Tobacco Use [...] AM EDT Office [place] [phone] Tereso Mohan MD [facility] [place] [address] 12/24/2023 10:30 AM EDT Appointment XRay at [address] [place] [address] Shelby Aaron APRN [facility] [place] [address] 12/24/2023 11:30 AM EDT Office Visit [facility] [place] [address] Shelby Aaorn APRN [facility] [place] [address] documented as of this encounter Procedures Procedure Name Priority Date/Time Associated Diagnosis Comments CT ABDOMEN AND PELVIS W CONTRAST Routine 11/09/2021 11:22 AM EDT Abdominal distention Abdominal pain, generalized Abnormal weight gain documented in this encounter Results * CT Abdomen & Pelvis w Contrast (11/09/2021 11:22 AM EDT) Anatomical Region Laterality Modality Abdomen, Pelvis Computed Tomogra phy 11/09/2021 11:3 6 AM EDT Impressions 11/09/2021 2:03 PM EDT Left ovarian cystic lesion with question of dependent layering debris versus soft tissue component. Further characterization can be performed with ovarian protocol MRI. Alternatively short interval follow-up in 2 months with ultrasound may be performed. I have personally reviewed the image(s) and the resident's interpretation and agree with the findings, Moise Gunn MD at 11/09/2021 2:03 PM Thank you for letting us participate in the care of this patient. ??If you are a health care provider and have any questions regarding this report, please contact the number below. ??For patients who have questions please contact the health career development associate that requested your imaging first. ? Narrative 11/09/2021 2:03 PM EDT EXAMINATION: CT ABDOMEN AND PELVIS W CONTRAST CLINICAL HISTORY: Abdominal distention, abnormal weight gain, abdominal pain TECHNIQUE: Helical CT of the abdomen and pelvis was performed following the intravenous administration of contrast. Administered 113.0 ml of OMNIPAQUE 350.00 mg/ml. Oral contrast was administered. COMPARISON: CT lumbar spine 10/31/2021. FINDINGS: Lower chest: Hypoventilatory changes at the lung bases. A sub-6 mm subpleural nodule in the right middle lobe likely represents an intrapulmonary lymph node. Liver: Liver is mildly enlarged measuring 20 cm in craniocaudal dimension. Normal attenuation without focal lesion. Bile ducts: Nondilated. Gallbladder: No calcified gallstones. Normal caliber wall. Pancreas: Normal attenuation without ductal dilatation. Spleen: Normal. Adrenals: Normal. Kidneys: Normal. Urinary Bladder: Normal. Vasculature: No abdominal aortic aneurysm. The portal vein is patent. Lymph Nodes: No enlarged lymph nodes. Bowel: Nondilated small and large bowel. The appendix is normal. No inflammatory change. Peritoneum and mesentery: No ascites, free air, or loculated fluid collection. No mesenteric inflammation. Abdominal wall: Normal. Reproductive organs: Left ovarian cystic lesion measuring 5.9 x 5.9 x 6.5 cm measuring fluid attenuation with question of crescentic soft tissue component inferior versus layering debris. Right ovarian follicles. The uterus is normal. Nabothian cysts in the cervix. Osseous structures: No suspicious lesions. Left L4-L5 facet deformity is unchanged from comparison CT lumbar spine. Procedure Note Moise Gunn MD - 11/09/2021 EXAMINATION: CT ABDOMEN AND PELVIS W CONTRAST CLINICAL HISTORY: Abdominal distention, abnormal weight gain, abdominal pain TECHNIQUE: Helical CT of the abdomen and pelvis was performed followingthe intravenous administration of contrast. Administered 113.0 ml ofOMNIPAQUE 350.00 mg/ml. Oral contrast was administered. COMPARISON: CT lumbar spine 10/31/2021. FINDINGS: Lower chest: Hypoventilatory changes at the lung bases. A sub-6 mmsubpleural nodule in the right middle lobe likely represents an intrapulmonary lymphnode. Liver: Liver is mildly enlarged measuring 20 cm in craniocaudaldimension. Normal attenuation without focal lesion. Bile ducts: Nondilated. Gallbladder: No calcified gallstones. Normal caliber wall. Pancreas: Normal attenuation without ductal dilatation. Spleen: Normal. Adrenals: Normal. Kidneys: Normal. Urinary Bladder: Normal. Vasculature: No abdominal aortic aneurysm. The portal vein is patent. Lymph Nodes: No enlarged lymph nodes. Bowel: Nondilated small and large bowel. The appendix is normal. Noinflammatory change. Peritoneum and mesentery: No ascites, free air, or loculated fluidcollection. No mesenteric inflammation. Abdominal wall: Normal. Reproductive organs: Left ovarian cystic lesion measuring 5.9 x 5.9 x 6.5cm measuring fluid attenuation with question of crescentic soft tissuecomponent inferior versus layering debris. Right ovarian follicles. The uterus isnormal. Nabothian cysts in the cervix. Osseous structures: No suspicious lesions. Left L4-L5 facet deformity is unchanged from comparison CT lumbar spine. IMPRESSION Left ovarian cystic lesion with question of dependent layering debrisversus soft tissue component. Further characterization can be performed withovarian protocol MRI. Alternatively short interval follow-up in 2 months withultrasound may be performed. I have personally reviewed the image(s) and the resident's interpretationand agree with the findings, Moise Gunn MD at 11/09/2021 2:03 PM Thank you for letting us participate in the care of this patient. If youare a health care provider and have any questions regarding this report,please contact the number below. For patients who have questions please contactthe health career development associate that requested your imaging first. Comfort Urban APRN [facility] CT ORDERABLES documented in this encounter Visit Diagnoses Diagnosis Abdominal distention Flatulence, eructation, and gas pain Abdominal pain, generalized Abnormal weight gain documented in this encounter Administered Medications Inactive Administered Medications - up to 3 most recent administrations Medication Order MAR Action Action Date Dose Rate Site barium sulfate (Readi-Cat) 2.0 % (w/v) oral liquid 450-900 mL 450-900 mL, Oral, ONCE PRN, 1 dose, Starting on Alejandra 11/09/21 at 1056, Until Alejandra 11/09/21 at 1114, Per Protocol, Radiology Contrast, Routine Given 11/09/2021 11:14 AM EDT 900 mLs iohexoL (Omnipaque) (350 mg/mL) solution 0-200 mL 0-200 mL, Intravenous, ONCE PRN, 1 dose, Starting on Alejandra 11/09/21 at 1056, Until Alejandra 11/09/21 at 1114, Per Protocol, Warning Vesicant/Irritant Medication , Radiology Contrast, Routine Given 11/09/2021 11:14 AM EDT 113 mLs documented in this encounter Care Teams Food Safety Specialist Relationship Specialty Start Date End Date Comfort Urban, CHURN DRILLER [address] [place] [address] PCP - General Family Medicine 07/19/17 03/11/23 documented as of this encounter
--- OUTSIDE RECORDS SUMMARY | 2023-11-16 14:13 | XMS_ITS | Encounter Summary ---
Author Organization [facility] [place] [address] Care Team Providers Care Rf Design Engineer Name Role Phone Comfort Urban APRN Primary Care Provider [phone] Encounter Details Date Type Department Care Team (Late st Contact Info) Description 11/20/2021 [place] [phone] Tereso Mohan MD [facility] [place] [address] Social History Tobacco Use Types Packs/Day Years [...] * Telephone Encounter - Gabriella Farmer - 11/20/2021 9:32 AM EDT Called and spoke to patient. Patient scheduled and confirmed for EMU admission for 11/23/21. Patient informed to call the admissions office on the day of admission at 10am to confirm bed availability and to arrive to clinic for 1pm. Marriage And Family Teacher provided admissions office phone number to patient. Patient has had previous EMU admission. Kindly call for clinical admission details to refresh and if she has any questions. documented in this encounter Plan of Treatment Upcoming Encounters Date Type Department Care Team (Late st Contact Info) Description 12/24/2023 10:00 AM EDT [place] [address] eTreso Mohan MD [facility] [place] [address] 12/24/2023 10:30 AM EDT Appointment XRay at [address] [place] [phone] Shelby Aaron [facility] [place] [address] 12/24/2023 11:30 AM EDT Office Visit [place] [phone] Shelby Aaron MINI LAB OPERATOR [facility] [place] [address] documented as of this encounter Visit Diagnoses Not on filedocumented in this encounter Care Teams Rf Design Engineer Relationship Specialty Start Date End Date Comfort Urban APRN [address] [place] [address] PCP - General Family Medicine 07/19/17 03/11/23 documented as of this encounter
--- OUTSIDE RECORDS SUMMARY | 2023-11-16 14:13 | XMS_ITS | Encounter Summary ---
[place] [address] Care Team Providers Care Workforce Development Program Director Name Role Phone Comfort Urban APRN Primary Care Provider [phone] Reason for Referral * Diagnostic Test (Routine) - Closed Specialty Diagnoses / Procedures Referred By Contac t Referred To Contact Radiology Diagnoses Radiculopathy of lumbar region Congenital anomalies of spine Spondylolisthesis at L4-L5 level Procedures CT Lumbar Spine wo Contrast (Generic) Charly Wilkins MD [facility] [place] [address] [facility] [place] [address] Referral ID Status Reason Start Date Expiration Date V isits Requested Visits Authorized [id number] Closed Specialty Service Requested 10/22/2021 04/24/2023 1 1 Reason for Visit * Diagnostic Test (Routine) - Closed Specialty Diagnoses / Procedures Referred By Contac t Referred To Contact Radiology Diagnoses Radiculopathy of lumbar region Congenital anomalies of spine Spondylolisthesis at L4-L5 level Procedures CT Lumbar Spine wo Contrast (Generic) Charly Wilkins MD [facility] [place] [address] [facility] [place] [address] Referral ID Status Reason Start Date Expiration Date V isits Requested Visits Authorized [id number] Closed Specialty Service Requested 10/22/2021 04/24/2023 1 1 Encounter Details Date Type Department Care Team (Latest Contact Info) Description 10/31/2021 10:09 AM EDT - 10/31/2021 11:59 PM EDT Hospital [place] [address] Charly Wilkins MD [facility] [place] [address] Radiculopathy of lumbar region; Congenital anomalies of [...] by mouth 2 times daily. 01/08/2022 03/13/2022 predniSONE (Deltasone) 20 mg Tablet 10/09/2021 11/08/2021 methocarbamoL (Robaxin) 500 mg Tablet TAKE ONE TABLET BY MOUTH EVERY 6 HOURS NEEDED FOR MUSCLE SPASM 09/19/2021 11/08/2021 cloBAZam (Onfi) 10 mg Tablet Take 1 pill in AM and 2 pills in PM 90 tablet 5 09/19/2021 03/13/2022 topiramate (Topamax) 200 mg Tablet Take 1/2 a pill in AM and 1 pill in PM 180 tablet 1 06/05/2021 11/08/2021 divalproex EC (Depakote) 250 mg Tablet, Delayed Release (E.C.) 250mg in the morning, 500mg nightly 90 tablet 11 06/05/2021 11/29/2021 meloxicam (MOBIC) 15 mg Tablet Take 1 tablet by mouth daily. 30 tablet 12 11/15/2020 12/12/2021 citalopram (CELEXA) 20 mg Tablet Take 40 mg by mouth daily. 0 02/03/2018 03/12/2023 FLOVENT HFA 110 mcg/actuation HFA Aerosol Inhaler Inhale 2 puffs into the lungs 2 times daily. 0 03/21/2018 11/08/2021 documented as of this encounter Plan of Treatment Upcoming Encounters Date Type Department Care Team (Late st Contact Info) Description 12/24/2023 10:00 AM EDT Office [place] [address] Tereso Mohan MD [facility] [place] [address] 12/24/2023 10:30 AM EDT Appointment XRay at [address] [place] [address] Shelby Aaron, HEAD SCHOOL CUSTODIAN [facility] [place] [address] 12/24/2023 11:30 AM EDT Office Visit [facility] at [facility] [place] [phone] Shelby Aaron, HEAD SCHOOL CUSTODIAN [facility] [place] [address] documented as of this encounter Procedures Procedure Name Priority Date/Time Associated Diagnosis Comments CT LUMBAR SPINE WWO CONTRAST Routine 10/31/2021 10:17 AM EDT Radiculopathy of lumbar region Congenital anomalies of spine Spondylolisthesis at L4-L5 level documented in this encounter Results * CT Lumbar Spine wo Contrast (Generic) (10/31/2021 10:17 AM EDT) Anatomical Region Laterality Modality L-spine Computed Tomogra phy 10/31/2021 10:3 4 AM EDT Impressions 10/31/2021 11:53 AM EDT L4-5 facet deformity on the left. Thank you for letting us participate in the care of this patient. ??If you are a health care provider and have any questions regarding this report, please contact the number below. ??For patients who have questions please contact the health childcare provider that requested your imaging first. ? Electronically signed by: Janak Tierney MD, [facility] ([phone]), at 10/31/2021 11:53 AM Narrative 10/31/2021 11:53 AM EDT EXAMINATION: CT LUMBAR SPINE WO CONTRAST (GENERIC) CLINICAL HISTORY: Congenital deformity, Preop study TECHNIQUE: CT lumbar spine performed without intravenous contrast administration. COMPARISON: Plain films 10/10/2021, MR 09/19/2021 FINDINGS: There are 5 nonrib-bearing lumbar segments. There is deformity of the left L4-5 facet joint was slight levoconvex curvature at that level. There is no acute malalignment. There is no acute fracture. No aggressive osseous lesion. There is prominent epidural fat and the canal at the L4-5 level through L5-S1. Visualized paraspinal soft tissues are unremarkable. Procedure Note Janak Tierney MD - 10/31/2021 EXAMINATION: CT LUMBAR SPINE WO CONTRAST (GENERIC) CLINICAL HISTORY: Congenital deformity, Preop study TECHNIQUE: CT lumbar spine performed without intravenous contrast administration. COMPARISON: Plain films 10/10/2021, MR 09/19/2021 FINDINGS: There are 5 nonrib-bearing lumbar segments. There is deformity of the leftL4-5 facet joint was slight levoconvex curvature at that level. There is noacute malalignment. There is no acute fracture. No aggressive osseous lesion.There is prominent epidural fat and the canal at the L4-5 level through L5-S1.Visualized paraspinal soft tissues are unremarkable. IMPRESSION L4-5 facet deformity on the left. Thank you for letting us participate in the care of this patient. If youare a health care provider and have any questions regarding this report,please contact the number below. For patients who have questions please contactthe health childcare provider that requested your imaging first. 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
--- OUTSIDE RECORDS SUMMARY | 2023-11-16 14:13 | XMS_ITS | Encounter Summary ---
Author Organization [facility] [address] Care Team Providers Care Medical Collections Representative Name Role Phone Comfort Urban APRN Primary Care Provider [phone] Reason for Visit * Reason Onset Date Comments Appointment 11/01/2021 Encounter Details Date Type Department Care Team (Late st Contact Info) Description 11/01/2021 Telephone [place] [address] Tereso Mohan MD [facility] [place] [address] Appointment Social History Tobacco Use Types Packs/Day [...] * Telephone Encounter - Gabriella Farmer - 11/01/2021 10:37 AM EDT Calling to schedule a sooner follow up appointment with Dr. Mohan. Calling to offer Saturday11/03/21 10:30am, [place] per [place]. Kindly warm transfer call to Gabriella. documented in this encounter Plan of Treatment Upcoming Encounters Date Type Department Care Team (Late st Contact Info) Description 12/24/2023 10:00 AM EDT Office [place] [address] Tereso Mohan MD [facility] [place] [address] 12/24/2023 10:30 AM EDT Appointment XRay at [address] [place] [address] Shelby Aaron APRN [facility] [place] [address] 12/24/2023 11:30 AM EDT Office Visit [facility] [place] [address] Shelby Aaron APRN [facility] [place] [address] documented as of this encounter Visit Diagnoses Not on filedocumented in this encounter Care Teams Medical Collections Representative Relationship Specialty Start Date End Date Comfort Urban APRN [address] [place] [address] PCP - General Family Medicine 07/19/17 03/11/23 documented as of this encounter
--- OUTSIDE RECORDS SUMMARY | 2023-11-16 14:13 | XMS_ITS | Encounter Summary ---
Author Organization [facility] [place] [address] Care Team Providers Care Driver Guard Name Role Phone Comfort Urban CHIEF PROCUREMENT OFFICER Primary Care Provider [phone] Reason for Visit * Auth/Cert Specialty Diagnoses [...] MODIFIER L4 MODIFIER L5 Charly Wilkins MD [facility] [place] [address] [facility] Referral ID Status Reason Start Date Expiration Date Visits Re quested Visits Authorized [id number] 1 1 Encounter Details Date Type Department Care Team (Late st Contact Info) Description 01/05/2022 8:30 AM EDT - 01/05/2022 11:45 AM EDT [place] [address] Charly Wilkins MD [facility] [address] ARTHRODESIS, LUMBAR SPINE, SINGLE INTERSPACE (WRVU 23.53) Social History Tobacco Use Types Packs/Day Years [...] Sign Reading Time Taken Comments Blood Pressure 129/76 01/05/2022 7:30 AM EDT Pulse 64 01/05/2022 7:30 AM EDT Temperature 36.5 ??C (97.7 ??F) 01/05/2022 7:30 AM ED T Respiratory Rate 16 01/05/2022 7:30 AM EDT Oxygen Saturation 98% 01/05/2022 7:30 AM EDT Inhaled Oxygen Concentration - - Weight 98.9 kg (218 lb) 01/05/2022 7:30 AM EDT Height 154.9 cm (5' 1) 01/05/2022 7:30 AM EDT Body Mass Index 41.19 01/05/2022 7:30 AM EDT documented in this encounter Discharge Summaries * Grazyna Grossman, SELVIN - 01/05/2022 2:35 PM EDT Discharge Summary Patient Name: Bessie Levy Patient Age: 36 y.o. Language: Croatian Race: White Ethnicity: Not nor Admit date: 01/05/2022 Discharge date and time: 01/08/2022 Attending Physician: Charly Wilkins MD Discharge Physician: Charly Wilkins MD Follow-up Recommendations for Providers: See discharge instructions for additional details. Future Appointments Date Time Provider Department Center 01/16/2022 4:30 PM Tereso Mohan MD [facility] NEURO [facility] 01/23/2022 1:00 PM Charly Wilkins MD [facility] Pain Sp [facility] 02/01/2022 1:00 PM [facility] Rad 02/01/2022 2:20 PM Naveen Hodge MD [facility] OBG 5L [facility] Inpatient Provider Contact Information: Charly Wilkins MD Spine Center: [phone] After hours and weekends, call [facility] Seal Mixing Operator, , and have the Orthopedic resident paged. [...] History of Presentation (Details taken from Dr. Wilkins's Note 12/12/21): Bessie Levy is a 36 [...] hemoglobin was 10.3 down from 12.8 on //, pre-op, indicating hemoglobin drop associated with anemia from a combination of acute blood loss from surgery and hemodilution as expected. The patient was monitored with nointervention warranted. Prior to discharge on POD#3 Bessie Levy was afebrile, with stable vital signs, successfully cleared PT and was deemed stable for discharge to home. Vital Signs at Discharge: Weight: Wt Readings from Last 1 Encounters: 01/05/22 98.9 kg (218 lb) Height: Ht Readings from Last 1 Encounters: 01/05/22 154.9 cm (5' 1) HC: HC Readings [...] who have questions please contact the health respiratory care assistant that requested your imaging first. Electronically signed by: Wayne Arenas MD, [facility] ([phone]), at 01/05/2022 10:59 AM XR Lumbar Spine 2 Or 3 Views [...] who have questions please contact the health respiratory care assistant that requested your imaging first. Electronically signed by: Cassie Heck MD, [facility] ([phone]), at 01/05/2022 6:45 PM XR O-Arm No Rad <1Hr - OR [...] who have questions please contact the health respiratory care assistant that requested your imaging first. DOC: TELEMETRY STRIPS Result Date: 01/05/2022 Ordered by an unspecified provider. Pending Studies and Lab Data at Discharge: None. Transfusions: No Discharge Conditions/Prognosis: Stable, awake, and alert. Mobilizing as noted above, pain controlled on oral medications. Discharge to: Home with VNA. Updated Allergies/ADRs: No Known Allergies Immunizations Given this Hospitalization: Immunization History Administered Date(s) Administered ??? Influenza Vaccine (Novel) Q6T1-50, Injectable 04/26/2009 ??? Influenza Vaccine, Whole 04/26/2009 [...] them. 3. You should also take an yybh-box-bmxnvzb stool softener of laxative, such as Emery-colace [...] contact the Spine Center Prescription Line at [phone]. PRESCRIPTION RENEWAL REQUESTS CAN TAKE UP TO [...] has completely healed. PLEASE CALL US AT [phone] TO SPEAK WITH A SPINE CENTER NURSE [...] Numbers: Clinical issues, nurse questions, medication renewals: [phone] Wilkins: [phone] Evenings after 5pm and weekends you may contact the Orthopaedic resident freezer person: [phone], askthe power generation turbine room operator to page the Orthopaedic resident Follow Up Appointments: 1. You will have follow-up appointments at [facility] as indicated in the ???Future Appointments and Orders?? section of your discharge summary. If X-rays have been ordered for you prior to this appointment you will need to report to the Radiology department, desk 3T, 1 hour prior to your spine center appointment. Future Appointments Date Time Provider Department Center 01/16/2022 4:30 PM Tereso Mohan MD [facility] NEURO [facility] 01/23/2022 1:00 PM Charly Wilkins MD [facility] Pain Sp [facility] 02/01/2022 1:00 PM [facility] US ROOM 3 [facility] Rad 02/01/2022 2:20 PM Naveen Hodge MD [facility] OBG 5L [facility] General Instructions None Future Appointments and Orders Future Appointments and Orders Future Appointments Provider Department Dept Phone 01/16/2022 4:30 PM Tereso Mohan MD Neurology at [facility] Arrive at: Butadiene Convertor Operator Area 3C [phone] 01/23/2022 1:00 PM Charly Wilkins MD Pain and Spine Center at [facility] Arrive at: [employer]adi[employer] Convertor Operator Area 3D [phone] 02/01/2022 1:00 PM [facility] US ROOM 3 Ultrasound at [facility] Arrive at: [employer]adiene Convertor Operator Area 3S [phone] If you need to bring a child [...] Naveen Hodge MD Obstetrics and Gynecology at [facility] Arrive at: [employer]adi[employer] Convertor Operator Area 5L [phone] Future Orders Complete By Expires [facility] [EQ161 Custom] As directed Process Instructions: Scheduling Instructions: Comments: Bessie Levy [address] [facility] [address] (home) Telephone Information: Diagnosis: deconditioning with Unsteady gait Significant weakness, ataxia or gait abnormality Patient's: Hgt: Ht Readings from Last 1 Encounters: 01/05/22 : 154.9 cm (5' 1) ? Wgt: Wt Readings from Last 1 Encounters: 01/05/22 : 98.9 kg (218 lb) VENDOR: Ortho Care Located @ [facility] [place], [place] Ordering: Front wheel walker Deliver to [facility] room #: 419B Questions: Device Needed: WALKER (E0143) Referral to Home Health [REF34 Custom] As directed Process Instructions: If no progress note charted, please enter Clinical details in comments. Scheduling Instructions: Comments: Please evaluate Bessie Ventura Levy for admission to Home Health. [address] [place] [address] [facility] [address] (home) Date of : 1985 Inpatient DOCUMENTATION FOR VNA SERVICES (INCLUDING THOSE PATIENTS WITH MEDICARE COVERAGE REQUIRING HOME VNA SERVICES AND/OR HOSPICE SERVICES) PATIENT'S LOCATION: Bessie Levy [address] [facility] [address] (home) Cell: Telephone Information: Repair Welder's Name: Bessie Levy In discussion with the attending physician, it is certified that this patient is under their care and that they, or a Nurse Practitioner,Clinical Nurse specialist or Physician Aeronautical Design Engineer who is working directly with them, had [...] Wilkins on 01/23/22. HOME HEALTH CARE AGENCY: [facility]. [address] [place] [address] Start of care: Within 24-48 hrs of discharge Please note that any additional orders needs or changes will need to be obtained from this patient's PCP: Comfort Urban APRN [address] [facility] [phone] All VNA agencies which cover the area of patient's residence have been reviewed, either verbally [place] writing, and patient/family have chosen the home health care agency noted Questions: Disciplines Requested: Physical Therapy Occupational Therapy Primary Care Provider: Comfort Urban APRN [phone] Discharge References/Attachments None documented in this encounter Discharge Instructions * Patient Instructions* Grazyna Grossman, CHIEF PROCUREMENT OFFICER - 01/04/2022 3:49 PM EDT Activity: 1. [...] them. 3. You should also take an dsmr-ebd-beroibq stool softener of laxative, such as Emery-colace [...] contact the Spine Center Prescription Line at [phone]. PRESCRIPTION RENEWAL REQUESTS CAN TAKE UP TO [...] has completely healed. PLEASE CALL US AT [phone] TO SPEAK WITH A SPINE CENTER NURSE [...] Numbers: Clinical issues, nurse questions, medication renewals: [phone] Wilkins: [phone] Evenings after 5pm and weekends you may contact the Orthopaedic resident freezer person: [phone], askthe power generation turbine room operator to page the Orthopaedic resident Follow Up Appointments: 1. You will have follow-up appointments at [facility] as indicated in the ???Future Appointments and Orders?? section of your discharge summary. If X-rays have been ordered for you prior to this appointment you will need to report to the Radiology department, desk 3T, 1 hour prior to your spine center appointment. Future Appointments Date Time Provider Department Center 01/16/2022 4:30 PM Tereso Mohan MD [facility] NEURO [facility] 01/23/2022 1:00 PM Charly Wilkins MD [facility] Pain Sp [facility] 02/01/2022 1:00 PM [facility] Rad 02/01/2022 2:20 PM Naveen Hodge MD [facility] OBG 5L [facility] documented in this encounter Medications at Time [...] 01/08/2022 1:01 PM EST Viral card that [facility] did not received discharge summary and cannot start services until it is received. Discharge summary faxed to [facility], FAX: . Office of Care Management Surgery Team International Logistics Coordinator [email or web address] Pager #[phone] * Domi Andrew RN - 01/08/2022 12:41 [...] discharge. Wheeled down to mother's vehicle at [facility] for discharge by staff. Domi Andrew RN * Jany Anthony OT - 01/08/2022 11:07 AM EST Occupational Therapy Treatment Note Treatment Number OT: 3 Patient Dx: Bessie Levy is a 36 y.o. female admitted on 01/05/2022 for L4-5 decompression, PSIFon 01/05/22 Social History: Patient lives with her 2 daughters (ages 12 & 14) and her boyfriend Juan in [place], [place]. Theyhave a dog, 3 cats and a guinea pig. Pt works at the [employer] and is on medical leave. Juan currently [...] Independent with ADL's and working at the [employer]. Juan does the grocery shopping, cooking, and [...] ?? AE was issued yesterday (sock aide, screen printing inspector, and LH sponge). ?? Pt states staff [...] 11:07-11:20 (13 min self care mgmt x1) Pager:[phone] JANY ANTHONY, OT Occupational Therapy Rehabilitation Department * Dajuan Ayala - 01/08/2022 10:30 AM EST Physical Therapy Note Treatment Number PT: 2 Patient profile: Bessie Levy??is a 36 y.o.?female??admitted on 01/05/2022??for L4-5 decompression, PSIF??on 01/05/22. ?? Social History: Patient lives??with her 2 daughters (ages 12 & 14) and her boyfriend Juan in [place], [place]. They have a dog, 3 cats and a guinea pig. Pt works at the [employer] and is on medical leave. Juan currently [...] ADL/Mobility:??Independent with ADL's and working at the [employer]. Juan does the grocery shopping, cooking, and [...] and demonstrated the following: Pain: initially pain 5-6/10 and then when finished 7-10/11. RN aware. Pt had been medicated prior. [...] plan as stated. Time IN / OUT: 9985-7378 Total Minutes, Physical Therapy: 30 Billing Code: 2 COURTNEY Ayala DPT Pager: [phone] Physical Therapy Inpatient Rehabilitation Department ANDRA * Bandar Jolly MD - 01/08/2022 6:11 [...] female 3 Days Post-Op s/p L4-5 decompression, PSI03/07/21 Dr. Wilkins. Progressing well. Cleared by PT [...] Center 01/16/2022 4:30 PM Tereso Mohan MD [facility] NEURO [facility] 01/23/2022 1:00 PM Charly Wilkins MD [facility] Pain Sp [facility] 02/01/2022 1:00 PM [facility] US ROOM 3 [facility] Rad 02/01/2022 2:20 PM Naveen Hodge MD [facility] OBG 5L [facility] Associated attestation - Charly Wilkins MD - 01/08/2022 10:15 AM EST Patient seen today. Doing well. Mother present. No leg symptoms. Will continue to mobilize. All questions answered. Charly Wilkins MD [facility] Spine Surgery - Department of Orthopaedic Surgery Pulper Tender - Department of Orthopedic Surgery / Academics and Research Digital Media Strategist Professor - [facility] [place] [place] 01/08/2022 * Morales Christianson RN - 01/08/2022 [...] cath for retention. Angela Perez PTA Pager# [phone] * Jamin Ray OT - 01/07/2022 9:25 AM EST Occupational Therapy Treatment Note Treatment Number OT: 2 Patient Dx: Bessie Levy is a 36 y.o. female admitted on 01/05/2022 for L4-5 decompression, PSIFon 01/05/22 Social History: Patient lives with her 2 daughters (ages 12 & 14) and her boyfriend Juan in [place], [place]. Theyhave a dog, 3 cats and a guinea pig. Pt works at the [employer] and is on medical leave. Juan currently [...] Independent with ADL's and working at the [employer]. Juan does the grocery shopping, cooking, and [...] transfer ?? ADL's: ?? Issued LH sponge, screen printing inspector and sock aide. Discussed how to use. [...] Vitals: stable throughout Pain: 6/10 in bed; /10 after ambulating to the BR and perform several tasks; after several minutesreclined in the chair, pt reported pain 09/10-RN notified Education: Pt/family/caregiver education ongoing regarding: Transfers, [...] Therapy: 40 (SCHM x 3 (9:25-10:05)) Pager: [phone] JAMIN RYA OT Occupational Therapy Rehabilitation Department * [place] Arredondo MD - 01/07/2022 6:12 AM EST ORTHOPAEDIC [...] female 2 Days Post-Op s/p L4-5 decompression, PSIF103/07/21 Dr. [...] Center 01/16/2022 4:30 PM Tereso Mohan MD [facility] NEURO [facility] 01/23/2022 1:00 PM Charly Wilkins MD [facility] Pain Sp [facility] 02/01/2022 1:00 PM [facility] US ROOM 3 [facility] Rad 02/01/2022 2:20 PM Naveen Hodge MD [facility] OBG 5L [facility] * Morales Christianson RN - 01/06/2022 3:57 [...] 1630. Pt. Up with PT/OT, 1 assist withwalker. SUELLEN drain removed this morning. Bed assignment [...] assist with ADL's Surveillance [continuous indirect monitoring]: Eric, Purposeful Rounding, Nurse Knowledge Exchange at Bedside, Bed Alarm Set * Jamin Ray OT - 01/06/2022 1:48 PM EDT Occupational Therapy Evaluation Patient profile: Bessie Levy is a 36 y.o. female admitted on 01/05/2022 for L4-5 decompression,PSIF on 01/05/22. Past Medical History: Diagnosis Date ??? s/p L4-5 decompression, PSIF Dr. Wilkins 01/04/2020 Added automatically from request for surgery [id number] Past Surgical History: Procedure Laterality Date ??? PRO INJECTION DX/THER SBST INTRLMNR LMBR/SAC W/IMG GDN Midline 05/18/2021 INJECTION, EPIDURAL, LUMBAR OR SACRAL (CAUDAL), WITH IMAGING GUIDANCE (WRVU 1.8) performed by Sarah Munguia MD at [facility] PAIN MGMT [facility] Social History: Patient lives with her 2 daughters (ages 12 & 14) and her boyfriend Juan in [place], [place]. Theyhave a dog, 3 cats and a guinea pig. Pt works at the [employer] and is on medical leave. Juan currently [...] Independent with ADL's and working at the [employer]. Juan does the grocery shopping, cooking, and [...] and measurable assessment of functional outcome. Pager: [phone] JAMIN RAY OT 01/06/2022 Occupational Therapy Rehabilitation [...] 01/04/2020 Added automatically from request for surgery [id number] Past Surgical History: Procedure Laterality Date ??? PRO INJECTION DX/THER SBST INTRLMNR LMBR/SAC W/IMG GDN Midline 05/18/2021 INJECTION, EPIDURAL, LUMBAR OR SACRAL (CAUDAL), WITH IMAGING GUIDANCE (WRVU 1.8) performed by Sarah Munguia MD at [facility] PAIN MGMT [facility] Social History: Patient lives with her 2 daughters (ages 12 & 14) and her boyfriend Juan in [place], [place]. Theyhave a dog, 3 cats and a guinea pig. Pt works at the [employer] and is on medical leave. Juan currently [...] Independent with ADL's and working at the [employer]. Juan does the grocery shopping, cooking, and [...] Pt seen for PT evaluation today. Pain: 8/ back pain, reports some radiation down BLE, [...] in this evaluation. Time IN / OUT: [phone] Christine Weston DPT Board-Certified Clinical Specialist in Geriatric Physical Therapy Board-Certified Clinical Specialist in Neurologic Physical Therapy Inpatient/outpatient Rehab [facility] * Manolo Wiley MD - 01/06/2022 7:16 [...] Center 01/16/2022 4:30 PM Tereso Mohan MD [facility] NEURO [facility] 01/23/2022 1:00 PM Charly Wilkins MD [facility] Pain Sp [facility] 02/01/2022 1:00 PM [facility] US ROOM 3 [facility] Rad 02/01/2022 2:20 PM Naveen Hodge MD [facility] OBG 5L [facility] ANDRA * Froylan Michaud, RN - 01/05/2022 10:25 PM EDT 1West Progress Note Gas/BM: Negative for flatus and BM Pain: c/o 10 back pain, PRN Oxycodone given w/ great relief NG/Nausea: Denies nausea Diet: Tolerating carb control diet Voiding: Omer in place, adequate UOP Mobility: Declines OOB, turns every 2 hours Central Line/Drain/VAC/Ostomy: N/A Skin/Incision: Incision to lumbar spine, dressing CDI; scattered scarring Tele: N/A Hardboard Factory Worker: N/A Progress Note: A/Ox4, T-max 100.7F, notified, down to 99.9 w/ scheduled Tylenol administration. Omer left in place d/t pt shawn, notified, report given to ARLETTE Resendez who [...] ??C (99 ??F)] Heart Rate: [61-75] Resp: [11-18] BP: [...] Center 01/16/2022 4:30 PM Tereso Mohan MD [facility] NEURO [facility] 01/23/2022 1:00 PM Charly Wilkins MD [facility] Pain Sp [facility] 02/01/2022 1:00 PM [facility] US ROOM 3 [facility] Rad 02/01/2022 2:20 PM Naveen Hodge MD [facility] OBG 5L [facility] * Justine Bhatia, RN - 01/05/2022 5:18 PM EDT Pt waking, states pain 'not too bad'. To po sips. To xray. 1930 Pt ate dinner. States she feels well. [...] performed by Sarah Munguia MD at [facility] PAIN MGMT MSO Home Medications: Medications [...] information for follow-up Home Health & Hospice, [place] [facility] [address] Transportation: family or friend will provide Home [...] where referrals are placed. Provided patient with [facility] Star Quality Rating for Home care hand out. Patient requests referral to : [facility] [address] [place] [address] Ortho Care Located @ [place], [place] Expected date of discharge: 01/08. Referral routed to the Gear Machine Operator for matching with agency/vendor and to provide any required information. * Plan of Care - Karyn Ayala RN - 01/07/2022 5:21 PM EST Pt alert and oriented x4. VSS on RA. Pain managed with scheduled tylenol and PRN oxycodone. Pt complaining of bilateral LE muscle spasms, made aware and PRN flexiril given with [...] Component Value Date COVID19 Not Detected 07/07/2021 [id number] Not Detected 07/04/2021 Past medical History: Past Medical History: Diagnosis Date ??? s/p L4-5 decompression, PSIF Dr. Wilkins 01/04/2020 Added automatically from request for surgery [id number] Hospitalizations Within the Past 30 Days: no previous admission in last 30 days Current Decision-Making Capacity: Self If AD's have not been completed the following surrogate would be surrogate decision maker per [place] surrogate decision making law. (Only good for 180 days) Any patient receiving care in [place] must abide by [place] law. The hierarchy for surrogate decision making [...] (i) The agent with financial power of sumo wrestler or a conservator appointed in accordance with [...] Current DME: none Home Address confirmed as: [facility] [address] [facility] [address] Social & Family Supports: All names listed [...] No Primary Care Provider: Comfort Urban APRN [phone] Patient/Caregiver Goals of Treatment: d/c home with family Potential Needs for Transition of Care: none Agency Referrals: Patient requests referral to : [facility] [address] [place] [address] Expected date of discharge: 01/07/22. Referral routed to the Gear Machine Operator for matching with agency/vendor and to provide [...] plans to discharge home via private care. [id number] agreed to receive services from [facility] when discussing during I/A. Home VNA placed per PT recs. A member of the Care Management team will continue to monitor progress, follow for continuity of care and assist with transition of care planning. Katia Alexander RN, CM Pager-[phone] * Brief Op Note - Bandar Jolly MD - 01/05/2022 2:27 PM EDT Brief Operative Note Patient Name: Bessie Levy : [id number] MR#: [id number] Case Date: 01/05/2022 Surgeon: Surgeon(s) and Role: [...] Wilkins MD - 01/05/2022 9:52 AM EDT [facility] Operative Note Patient Name: Bessie Levy : [id number] MR#: [id number] Case Date: 01/05/2022 Surgeon: Surgeon(s) and Role: [...] morselized -Intraoperative CT scan / Navigation Instrumentation: 41st Parameter Modular X DESCRIPTION OF PROCEDURE: The patient [...] and medial facetectomy and foraminotomy of L4-5: Lela Robles's and a high-speed cortical bur was utilized [...] 10:00 AM EDT [place] [address] Tereso Mohan MD [facility] [address] 12/24/2023 10:30 AM EDT Appointment XRay at [address] [place] [phone] Shelby Aaron APRN [facility] [place] [address] 12/24/2023 11:30 AM EDT Office Visit [place] [address] Shelby Aaron APRN [facility] [address] Scheduled Referrals Name Type Priority Associated Diagnoses [...] L4-L5 level Sterotactic Cptr Asstd Px Spinal (76384) Yes 01/05/2022 9:06 AM EDT Radiculopathy of [...] Autograft Spine Surgery Local From Same Incision ([id number]) Yes 01/05/2022 9:06 AM EDT Radiculopathy of lumbar region Congenital anomalies of spine Spondylolisthesis at L4-L5 level Posterior Non-Segmental Instrumentation (29255) Yes 01/05/2022 9:06 AM EDT Radiculopathy of lumbar region Congenital anomalies of spine Spondylolisthesis at L4-L5 level Arthrodesis Combined Technique 1 Interspace Lumbar ([id number]) Yes 01/05/2022 9:06 AM EDT Radiculopathy of lumbar region Congenital anomalies of spine Spondylolisthesis at L4-L5 level Laminec/Facetect/Forami n, Lumbar 1 Seg ([id number]) Yes 01/05/2022 9:06 AM EDT Radiculopathy of lumbar region Congenital anomalies of spine Spondylolisthesis at L4-L5 level Arthrodesis Posterior/Pstlat Technique 1 Interspace Lumbar ([id number]) Yes 01/05/2022 9:06 AM EDT Radiculopathy of [...] 8:58 AM EST) Neutrophil % 73.0 % [facility] Neutrophil Absolute 9.01(H) 1.70 - 6.10 x10(3)/mc L [facility] Lymph % 16.3 % [facility] Lymphocytes Abs 2.0 0.9 - 3.2 x10(3)/mc L [facility] Monocyte % 7.7 % [facility] Monocyte Abs 1.0(H) 0.3 - 0.9 x10(3)/mc L [facility] Eos % 2.0 % [facility] Eosinophils Abs 0.2 0.0 - 0.4 x10(3)/[facility] Basophil % 0.4 % [facility] Baso Absolute 0.0 0.0 - 0.1 x10(3)/[facility] Immature Gran % 0.60 % [facility] Comment: Immature granulocytes(IG's)percentage and absolute count will include metamyelocytes, myelocytes, and promyelocytes. Blood smears from CBCs yielding IG's will be scanned manually for concordance. If this scan disagrees with the automated IG or if promyelocytes are noted, a manual differential will be performed. Immature Gran Absolute 0.08(H) 0.00 - 0.04 x10(3)/[facility] Blood 01/08/2022 8:58 AM EST 01/08/2022 9:30 AM EST Narrative Resulting Agency Comment Spec In Lab Bandar Jolly MD HEMATOLOGY ORDERABLE S [facility] [place] [address] * (ABNORMAL) Hemogram (01/08/2022 8:58 AM EST) White Blood Cell 12.4(H) 4.0 - 9.5 x10(3)/[facility] Red Blood Cell 3.43(L) 4.00 - 5.21 x10(6)/[facility] Hemoglobin 10.3(L) 11.7 - 15.5 g/dL [facility] Hematocrit 30.5(L) 35.7 - 45.8 % [facility] Mean Cell Volume 88.9 82.6 - 94.4 fL [facility] Mean Cell Hemoglobin 30.0 27.1 - 32.0 pg [facility] Mean Cell Hemoglobin Concentration 33.8 31.7 - 35.0 g/dL [facility] Platelet 220 145 - 357 x10(3)/[facility] RDW Standard Deviation 38.9 37.0 - 46.0 [facility] RDW coefficient of variation 11.9 11.5 - 14.1 % [facility] Mean Platelet Volume 9.4 7.6 - 12.9 [facility] NRBC% auto 0.0 % [facility] NRBC Absolute 0.000 0.000 - 0.000 x10(3)/mc L [facility] Blood 01/08/2022 8:58 AM EST 01/08/2022 9:30 AM EST Narrative Resulting Agency Comment Spec In Lab Bandar Jolly MD HEMATOLOGY ORDERABLE S [facility] [place] [address] * (ABNORMAL) Basic Metabolic Panel (non-fasting) (01/08/2022 8:58 AM EST) Glucose 158 65 - 199 mg/dL [facility] Comment:Diabetes: >=200 mg/d L plus symptoms Blood Urea Nitrogen 8 8 - 18 mg/dL [facility] Creatinine 0.55(L) 0.70 - 1.20 mg/dL [facility] Sodium 136 135 - 145 mmol/L [facility] Potassium 3.4(L) 3.5 - 5.0 mmol/L [facility] Comment: Please note: ??Patients with WBC >100,000 may have falsely elevated Potassium levels. ??For accurate Potassium quantification in these patients send serum separator tube (gold top) for subsequent determinations. ??Contact the Clinical Chemistry Laboratory if there are any questions. Chloride 104 98 - 107 mmol/L [facility] Carbon Dioxide 22 22 - 31 mmol/L [facility] Anion Gap 10 5 - 15 mmol/L [facility] Calcium 8.6 8.5 - 10.5 mg/dL [facility] Est Glomerular Filtration Rate 120 >=60 mL/min/1. 73 m?? [facility] Comment: This patient's estimated [...] Wilkins MD CHEMISTRY ORDERABLES Performing Organization Address [facility] Co de Phone Number [facility] [place] [address] * Scan, Peripheral Blood (01/06/2022 5:10 AM EDT) Plat estimate Normal [facility] RBC Morphology Normal [facility] Vacuolated Neut Present [facility] Blood 01/06/2022 5:10 AM EDT 01/06/2022 5:18 AM EDT Narrative Resulting Agency Comment Spec In Lab Bandar Jolly MD HEMATOLOGY ORDERABLE S Performing Organization Address City/[facility]/ZIP Co de Phone Number [facility] [place] [address] * (ABNORMAL) Differential, Automated (01/06/2022 5:10 AM EDT) Neutrophil % 75.7 % [facility] Neutrophil Absolute 12.77(H) 1.70 - 6.10 x10(3)/mc L [facility] Lymph % 10.4 % [facility] Lymphocytes Abs 1.8 0.9 - 3.2 x10(3)/mc L [facility] Monocyte % 13.2 % [facility] Monocyte Abs 2.2(H) 0.3 - 0.9 x10(3)/[facility] Eos % 0.0 % [facility] Eosinophils Abs 0.0 0.0 - 0.4 x10(3)/[facility] Basophil % 0.2 % [facility] Baso Absolute 0.0 0.0 - 0.1 x10(3)/[facility] Immature Gran % 0.50 % [facility] Comment: Immature granulocytes(IG's)percentage and absolute count will include metamyelocytes, myelocytes, and promyelocytes. Blood smears from CBCs yielding IG's will be scanned manually for concordance. If this scan disagrees with the automated IG or if promyelocytes are noted, a manual differential will be performed. Immature Gran Absolute 0.09(H) 0.00 - 0.04 x10(3)/[facility] Blood 01/06/2022 5:10 AM EDT 01/06/2022 5:18 AM EDT Narrative Resulting Agency Comment Spec In Lab Bandar Jolly MD HEMATOLOGY ORDERABLE S [facility] [place] [address] * (ABNORMAL) Hemogram (01/06/2022 5:10 AM EDT) White Blood Cell 16.9(H) 4.0 - 9.5 x10(3)/[facility] Red Blood Cell 3.75(L) 4.00 - 5.21 x10(6)/[facility] Hemoglobin 11.4(L) 11.7 - 15.5 g/dL [facility] Hematocrit 32.8(L) 35.7 - 45.8 % [facility] Mean Cell Volume 87.5 82.6 - 94.4 fL [facility] Mean Cell Hemoglobin 30.4 27.1 - 32.0 pg [facility] Mean Cell Hemoglobin Concentration 34.8 31.7 - 35.0 g/dL [facility] Platelet 257 145 - 357 x10(3)/mc L [facility] RDW Standard Deviation 37.2 37.0 - 46.0 fL [facility] RDW coefficient of variation 11.7 11.5 - 14.1 % [facility] Mean Platelet Volume 8.8 7.6 - 12.9 fL [facility] NRBC% auto 0.0 % [facility] NRBC Absolute 0.000 0.000 - 0.000 x10(3)/mc L [facility] Blood 01/06/2022 5:10 AM EDT 01/06/2022 5:18 AM EDT Narrative Resulting Agency Comment Spec In Lab Bandar Jolly MD HEMATOLOGY ORDERABLE S [facility] [place] [address] * (ABNORMAL) Basic Metabolic Panel (non-fasting) (01/06/2022 5:10 AM EDT) Glucose 126 65 - 199 mg/dL [facility] Comment:Diabetes: >=200 mg/d L plus symptoms Blood Urea Nitrogen 7(L) 8 - 18 mg/dL [facility] Creatinine 0.69(L) 0.70 - 1.20 mg/dL [facility] Sodium 134(L) 135 - 145 mmol/L [facility] Potassium 4.0 3.5 - 5.0 mmol/L [facility] Comment: Please note: ??Patients with WBC >100,000 may have falsely elevated Potassium levels. ??For accurate Potassium quantification in these patients send serum separator tube (gold top) for subsequent determinations. ??Contact the Clinical Chemistry Laboratory if there are any questions. Chloride 101 98 - 107 mmol/L [facility] Carbon Dioxide 21(L) 22 - 31 mmol/L [facility] Anion Gap 12 5 - 15 mmol/L [facility] Calcium 8.3(L) 8.5 - 10.5 mg/dL [facility] Est Glomerular Filtration Rate 114 >=60 mL/min/1. 73 m?? [facility] Comment: This patient's estimated [...] In Lab Charly Wilkins MD CHEMISTRY ORDERABLES [facility] [place] [address] * XR Lumbar Spine 2 Or 3 [...] who have questions please contact the health respiratory care assistant that requested your imaging first. ? Electronically signed by: Cassie Heck MD, [facility] ([phone]), at 01/05/2022 6:45 PM Narrative 01/05/2022 6:45 PM EDT EXAMINATION: XR [...] patients who have questions please contactthe health respiratory care assistant that requested your imaging first. Electronically signed by: Cassie Heck MD, [facility]([phone]), at 01/05/2022 6:45 PM Charly Wilkins MD IMG DX ORDERABLES * [...] who have questions please contact the health respiratory care assistant that requested your imaging first. ? Electronically signed by: Alfred Hernandez MD, [facility] ([phone]), at 01/05/2022 5:16 PM Narrative 01/05/2022 5:16 [...] patients who have questions please contactthe health respiratory care assistant that requested your imaging first. Electronically signed by: Alfred Hernandez MD, [facility]([phone]), at 01/05/2022 5:16 PM Charly Wilkins MD [...] who have questions please contact the health respiratory care assistant that requested your imaging first. ? Electronically signed by: Wayne Arenas MD, [facility] ([phone]), at 01/05/2022 10:59 AM Narrative 01/05/2022 10:59 AM EDT EXAMINATION: XR [...] patients who have questions please contactthe health respiratory care assistant that requested your imaging first. Electronically signed by: Wayne Arenas MD, [facility]([phone]), at 01/05/2022 10:59 AM Charly Wilkins MD IMG DX ORDERABLES documented in this encounter Visit Diagnoses Diagnosis Radiculopathy of lumbar region- Primary Thoracic or lumbosacral neuritis or radiculitis, unspecified s/p L4-5 decompression, PSIF Dr. 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, unspecified Spondylolisthesis at L4-L5 level documented in this encounter Admitting Diagnoses Diagnosis [...] may be given concomitantly for constipation., Routine BUpivacaine-EPINEPHrine (Marcaine-epiNEPHrine) 0.25 %-1:200,000 injection ONCE PRN, Starting on Sat01/05/22 at 1002, Until Sat01/08/22 at 1506, Intra-Operative (Intra-Procedure), Routine Given 01/05/2022 2:04 PM EDT 18 mLs 19- Surgical Site Given 01/05/2022 10:02 AM EDT 12 mLs 1 9- Surgical Site cholecalciferol (Vitamin D3) tablet 2,000 Units 2,000 [...] Given 01/07/2022 11:12 AM EST 5 mg gelatin adsorbable 100 (Gelfoam) sponge ONCE PRN, Starting on Sat01/05/22 at 1003, Until Sat01/08/22 at 1506, Intra-Operative (Intra-Procedure), Routine Given 01/05/2022 10:03 AM EDT 1 each 19- Surgical Site ipratropium-albuteroL (Duoneb) 0.5 mg-3 mg(2.5 mg base)/3 [...] Given 01/06/2022 9:11 AM EDT 17 g senna-docusate (Pericolace) 8.6-50 mg per [...] 3:00 PM EDT 75 mL/hr 75 mL/hr thrombin (Bovine) (Thrombinar) kit ONCE PRN, Starting on Sat01/05/22 at 1003, Until Sat01/08/22 at 1506, Intra-Operative (Intra-Procedure) Given 01/05/2022 10:03 AM EDT 20,000 Units 19- Surgical Site vancomycin (Vancocin) injection ONCE PRN, Starting on Sat01/05/22 at 1003, Until Sat01/08/22 at 1506, Intra-Operative (Intra-Procedure), Routine Given 01/05/2022 10:03 AM EDT 1 g 19- Surgical Site documented [...] 0924 (Given - Provider: Domi Andrew, ARLETTE) ceFAZolin (Ancef) 2 g vial attach to sodium chloride 0.9% 100 mL Mini-Bag Plus (COMPLETED) 2 g, Intravenous, EVERY 8 HOURS, 2 doses, First dose (after last reorder) on 01/06/22 at 0400, Last dose on Sat01/06/22 at [...] Oral, DAILY, First dose on Sat01/05/22 at 204, Until Discontinued, Routine 0912 (Given - Provider: [...] Michaud RN) 0700 (Given - Provider: Kiera Simons RN) 0610 (Given - Provider: Morales Christianson, ARLETTE) cloBAZam (Onfi) tablet 20 mg 20 mg, Oral, NIGHTLY, First dose on Sat01/05/22 at 2100, Until Discontinued, Routine 2020 (Given - Provider: Kiera Simons RN) 2050 (Given - Provider: Morales Christianson, ARLETTE) lidocaine (Lidoderm) 5% patch 3 patch(Linked Group 1) 3 patch, Transdermal, EVERY 24 HOURS, First dose on Sat01/08/22 at 0845, Until Discontinued, Apply patch(es) for 12 hours, and then remove for 12 hours., Routine 0924 (Patch Applied - Provider: Domi Andrew RN) lidocaine (Lidoderm) topical patch REMOVAL(Linked Group 1) Transdermal, EVERY 24 HOURS, First dose on Sat01/08/22 at 2000, Until Discontinued, Remove lidocaine 5% patch polyethylene glycoL (Miralax) packet 17 g 17 g, Oral, 2 TIMES DAILY, First dose on Sat01/05/22 at 2100, Until Discontinued, Routine 09 (Given - Provider: Katia Roldan RN)2021 (Not Given - Provider: Kiera Simons RN - Reason: Patient/family refused) 08 (Given - Provider: Shavonne Carter, ARLETTE)2099 (Not Given - Provider: Morales Christianson RN [...] on Sat01/05/22 at 2100, Until Discontinued, Routine 0912 (Given - Provider: Katia Roldan RN)2020 (Given [...] Comment: IVF infusing)2022 (Given - Provider: Kiera Simons RN) 0844 (Given - Provider: Shavonne Carter RN)2050 (Given - Provider: Morales Christianson, ARLETTE) 0924 (Given - Provider: Domi Andrew, ARLETTE) Continuous Medication Order 01/06/2022 01/07/2022 01/08/2022 sodium [...] Carter RN) 0524 (Given - Provider: Morales Christianson, ARLETTE) ipratropium-albuteroL (Duoneb) 0.5 mg-3 mg(2.5 mg base)/3 [...] Roldan RN)1713 (See Alternative - Provider: Morales Christianson, ARLETTE) 0123 (See Alternative - Provider: Adelina Benavidez [...] If pain not relieved, call provider., Routine 022 (Given - Provider: Froylan Michaud RN - Comment: shooting from my mid back)0913 (See Alternative - Provider: Katia Roldan RN)1713 (Given - Provider: Morales Christianson RN) 0123 (Given - Provider: Adelina Benavidez RN)0700 (See Alternative - Provider: Kiera Simons RN)1042 (See Alternative - Provider: Karyn Ayala RN)1507 (See Alternative - Provider: Karyn Ayala RN)2049 (See Alternative - Provider: Morales Christianson RN) 0522 (See Alternative - Provider: Morales Christianson RN)0923 (See Alternative - Provider: Domi Andrew, ARLETTE) oxyCODONE (Roxicodone) tablet 5 mg(Linked Group 2) 5 mg, Oral, EVERY 4 HOURS PRN, Starting on Sat01/05/22 at 1450, Until Sat01/08/22 at 1506, Pain, mild pain (1-3), For mild pain (1-3). Do not exceed 15 mg in 4 hours. If pain not relieved, call provider, Routine 0223 (See Alternative - Provider: Froylan Michaud RN)0913 (See Alternative - Provider: Katia Roldan RN)1713 (See Alternative - Provider: Morales Christianson RN) 0123 (See Alternative - Provider: Adelina Soto V RN)0700 (Given - Provider: Kiera Simons, RN)1042 (See Alternative - Provider: Karyn Ayala, ARLETTE)1507 (See Alternative - Provider: Karyn Ayala, ARLETTE)2050 (See Alternative - Provider: Morales Christianson, ARLETTE) 0522 (See Alternative - Provider: Morales Christianson, ARLETTE)0923 (See Alternative - Provider: Domi Andrew RN) [...] PRN, Starting on Sat01/05/22 at 1450, Until 01/08/22 at 1506, Pain, severe pain (7-10), For severe pain (7-10). Do not exceed 15 mg in 4 hours. If pain not relieved, call provider., Routine documented in this encounter Care Teams Driver Guard Relationship Specialty Start Date End Date Comfort Urban, SELVIN [address] [place] [address] PCP - General Family Medicine 07/19/17 03/11/23 documented as of this encounter
--- OUTSIDE RECORDS SUMMARY | 2023-11-16 14:13 | XMS_ITS | Encounter Summary ---
[place] [address] Care Team Providers Care Permit Specialist Name Role Phone Comfort Urban DIESEL SCOOP OPERATOR Primary Care Provider [phone] Reason for Visit * Reason Onset Date Comments Pre Procedure Call 12/14/2021 Encounter Details Date Type Department Care Team (Late st Contact Info) Description 12/14/2021 Telephone [facility] [place] [phone] Susanna Jason LPN Pre Procedure Call Social History Tobacco Use Types Packs/Day Years [...] Telephone Encounter - Susanna Jason LPN - 12/14/2021 4:28 PM EDT Met with today following the surgical evaluation for purpose of providing pre and post operative instructions and to plan for any pre/post- operative discharge needs. Pre-op Medication Holds: Advised pt of need to hold anticoagulants, NSAIDs, ASA products, and Fish Oil for ~10 days preoperatively. Reviewed medication list. Pt agreed to hold Celebrex as instructed. is not noted to be taking any prescription anticoagulants. Opioid Risks and Pain Management: Reviewed salient points within Acute Opioid Therapy Informed Consent. denies any questions or concerns. Offered pt a copy of consent for home reference. Signed Consent Form passed to the [facility] community associate for scanning. Reviewed with that she is likely to experience some postoperative incisional and extremity pain, to include expectations re potential new or increased N/T. Explained that the timing and intensity of this pain is variable. Reviewed in detail non-opioid pain mgmt strategies that should be put in place postoperatively to minimize opioid use. Strategies discussed included: rest and relaxation, activity modification, regular repositioning, regular Acetaminophen use, hourly ice application for local analgesia/inflammation. Explained that the non-opioid pain mgmt strategies are intended to be the first line of treatment t o assist with her postop pain. Instructed to Initiate the regular use of ice and OTC medication immediately upon return home, even if this was not documented in her discharge instructions. Reinforced with pt that she should continue the non-opioid pain mgmt treatments for as long as he isrequiring any opioids; that the opioid is the first treatment that should be discontinued. Advised that any opioid pain medication that is prescribed is to be used to supplement the non-opioid methods. Advised pt that she is to take the least amt of opioid possible, and the expectation is that she will reduce use as the postoperative pain subsides. Advised pt that she should never exceed the prescribed amt without obtaining authorization from the prescribing provider. See PDMP query below. Reviewed current and historical opioid use. is not noted to be on opioids currently. Acute post-operative pain mgmt is expected to be managed by: Spine team Provided instructions and general expectations re prescription refill practices/timing. Acute Opioid Prescribing: Opioid PDMP 12/14/2021 [place] PDMP Query Date 12/14/2021 Comment Clobazam 10 mg times 6 months No flowsheet data found. Acute Opioid Specific Questions 12/14/2021 Date Acute Consent signed 12/12/2021 Considered the risk of opioid misuse, abuse, diversion? Yes Some recent data might be hidden Activity: Reviewed with our expectations re activity postoperatively, to include use of good body mechanics, to relax when moving rather than tensing/guarding, and our expectations re progressive walking upon return home. Advised that he would not be able to drive while taking opioid painmedication. Home Support/Services Expected: Discussed home environment and support available following discharge. Patient has the support of family/friends at discharge. It's anticipated that pt will go home. 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 Postoperative PT Evaluation: Given provider preference, current physical capacity, and/or work demands, discussed value of and timing of a Spine Center PT evaluation in coordination with surgeon's hospital check. has opted to defer PT at this time. A copy of Spine Center Pre/Post-Operative Reference sheet provided to pt; reviewed the content. Encouraged to review these instructions prior to coming into the hospital and then again uponreturn home so that the instructions will be recalled easily. verbalized understanding of the information reviewed.. was given the contact information for the Spine Center Nursing staff; she was encouraged to call pre or postoperatively withany questions or concerns. documented in this encounter Plan of Treatment Upcoming Encounters Date Type Department Care Team (Late st Contact Info) Description 12/24/2023 10:00 AM EDT Office [place] [phone] Tereso Mohan MD [facility] [place] [address] 12/24/2023 10:30 AM EDT Appointment XRay at [address] [place] [phone] Shelby Aaron APRN [facility] [place] [address] 12/24/2023 11:30 AM EDT Office Visit [facility] [place] [phone] Shelby Aaron APRN [facility] [place] [address] documented as of this encounter Visit Diagnoses Not on filedocumented in this encounter Care Teams Permit Specialist Relationship Specialty Start Date End Date Comfort Urban, SELVIN [address] [place] [address] PCP - General Family Medicine 07/19/17 03/11/23 documented as of this encounter
--- OUTSIDE RECORDS SUMMARY | 2023-11-16 14:13 | XMS_ITS | Encounter Summary ---
[place] [address] Care Team Providers Care Hr Receptionist Name Role Phone Comfort Urban APRN Primary Care Provider [phone] Encounter Details Date Type Department Care Team (Late st Contact Info) Description 12/12/2021 9:45 AM EDT Procedure visit [place] [address] Eldon Hurley MD [facility] [place] [address] Neuropathy Social History Tobacco Use Types Packs/Day Years [...] as of this encounter Progress Notes * Eldon Hurley MD - 12/12/2021 9:45 AM EDT At this time there is no clearcut electrophysiological evidence of median or ulnar nerve pathology..Eldon Hurley MD documented in this encounter Plan of Treatment Upcoming Encounters Date Type Department Care Team (Late st Contact Info) Description 12/24/2023 10:00 AM EDT Office Visit [place] [address] Tereso Mohan MD [facility] [place] [address] 12/24/2023 10:30 AM EDT Appointment XRay at [address] [place] [phone] Shelby Aaron TASSEL MAKER [facility] [place] [address] 12/24/2023 11:30 AM EDT Office Visit [facility] Sp[facility] at [place] [phone] Shelby Aaron APRN [facility] [place] [address] documented as of this encounter Visit Diagnoses Diagnosis Neuropathy Mononeuritis of unspecified site documented in this encounter Care Teams Hr Receptionist Relationship Specialty Start Date End Date Comfort Urban APRN [address] [place] [address] PCP - General Family Medicine 07/19/17 03/11/23 documented as of this encounter
--- OUTSIDE RECORDS SUMMARY | 2023-11-16 14:13 | XMS_ITS | Encounter Summary ---
Author [place] [address] Care Team Providers Care Tunnel Man Name Role Phone Comfort Urban APRN Primary Care Provider [phone] Reason for Visit * Reason Comments Follow-up F/U to do Pre Op ilsa arance / ? New Consent Encounter Details Date Type Department Care Team (Late st Contact Info) Description 12/12/2021 11:40 AM EDT Office Visit [facility] [place] [address] Charly Wilkins MD [facility] [place] [address] Congenital anomalies of spine; Spondylolisthesis at L4-L5 level; Radiculopathy of lumbar [...] - Inhaled Oxygen Concentration - - Weight 99.8 kg (220 lb) 12/12/2021 11:24 AM EDT Height 154.9 cm (5' 1) 12/12/2021 11:24 AM EDT Body Mass Index 41.57 12/12/2021 11:24 AM EDT documented in this encounter Progress Notes * Charly Wilkins MD - 12/12/2021 11:40 AM EDT Images from the original note were not included. [facility] Charly Wilkins MD MS Comfort Urban, [employer] SALES CONSULTANT [address] [facility] [place] [address] Dear Colleagues, I had the pleasure of seeing this patient at the [facility] @ [facility] for surgical evaluation. See prior notes for details. Patient comes in for check on clearance. As well as consent process. She still has a chief complaint of significant low back [...] recommended the similar consults which were obtained. Procedure as planned and described in my prior note. Proposed procedure: Posterior L4-5 lumbar decompression and [...] L4-5. Deformity of the left facet joint. Plan: Posterior L4-5 lumbar decompression and fusion with TLIF autograft allograft. Sincerely, Charly Wilkins MD [facility] Fern Picker - Orthopedic Spine Surgery Chick Grader - Department of Orthopedic Surgery / Academics and Research Doctor Of Nursing Practice - [facility] 12/12/2021 Spine Center Response Trends Patient-reported scores: myD-H Spine Questionnaire responses 10/10/2021 Oswestry Disability Index (Range: 0-100) 52 (Severe disability) PROMIS-10 Physical Health Score 29.6 PROMIS-10 Mental Health Score 43.5 documented in this encounter Plan of Treatment Upcoming Encounters Date Type Department Care Team (Late st Contact Info) Description 12/24/2023 10:00 AM EDT Office Visit Neurology at [place] [address] Tereso Mohan MD [facility] [place] [address] 12/24/2023 10:30 AM EDT Appointment XRay at [address] [place] [address] Shelby Aaron [employer] SALES CONSULTANT [facility] [place] [address] 12/24/2023 11:30 AM EDT Office Visit [facility] at [place] [address] Shelby Aaron SHOWROOM SALES CONSULTANT [facility] [place] [address] documented as of this encounter Visit Diagnoses Diagnosis 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
--- OUTSIDE RECORDS SUMMARY | 2023-11-16 14:13 | XMS_ITS | Encounter Summary ---
Author Organization [facility] [address] Care Team Providers Care Asset Card Clerk Name Role Phone Comfort Urban ENTRY LEVEL JAVA DEVELOPER Primary Care Provider [phone] Reason for Visit * Auth/Cert Specialty Diagnoses [...] MODIFIER L4 MODIFIER L5 Charly Wilkins MD [facility] [place] [address] [facility] Referral ID Status Reason Start Date Expiration Date Visits Re quested Visits Authorized [id number] 1 1 Encounter Details Date Type Department Care Team (Late st Contact Info) Description 01/05/2022 9:05 AM EDT Anesthesia Event [place] [phone] Angelika Doe MD [facility] [place] [address] David Florian MD [facility] [place] [address] Anesthesia Record Procedure Summary Procedure Name Responsible Anesthesiologist Anesthesia Start Time Anesthesia Stop Time ARTHRODESIS, LUMBAR SPINE, SINGLE INTERSPACE (WRVU 23.53) (Bilateral: Spine Lumbar) Angelika Doe MD 01/05/22 0905 01/05/22 1424 Events Date Time Event Comment 01/05/2022 0820 0905 Start 0907 AN Verify 0908 An Start Data 0914 An Induction 0918 An Intubation 0919 Anesthesia Ready 0952 Procedure Start 1136 Break/Relief In I assumed ca re for Break Relief before which we: 1. Identified the patient 2. Identified the responsible provider(s) 3. Reviewed the pertinent medical history 4. Discussed the surgical plan and course 5. Reviewed intra-op anesthesia management and issues during anesthesia 6. Set expectations for the relief (and/or post-procedure) period 7. Allowed opportunity for questions and acknowledgement of understanding DAVID FLORIAN MD 1206 Break/Relief Out 1406 Procedure Stop 1410 Extubation/LMA Out Patient s pontaneously ventilating; adequate tidal volumes ( >450 mL); regular respiratory rate & rhythm; minute ventilation > 5L/min; neuromuscular function intact as evidence by sustained tetanus. Oropharynx suctioned. Extubated without issue to 6L/min O2 via face mask. VSS. 1415 an stop data 1423 Recovery or ICU Handoff Carey ent care was transferred to the destination unit staff after review of the patient's medical history, current anesthetic/surgical status and plan, according to the Provider Handoff Checklist. 1424 Stop Spontaneous elly tilation without issue. VSS. Full report given to WATCH CASER. Meds Name Total Midazolam 2 mg Propofol 200 mg Rocuronium 160 mg Ondansetron 4 mg Dexamethasone 8 mg Neostigmine 4 mg Glycopyrrolate 0.6 mg Dexmedetomidine 16 mcg HYDROmorphone 2 mg/mL 2 mg tranexamic acid (Cyklokapron ) 1,361 mg in sodium chloride 0.9% 113.61 mL infusion 1,361 mg tranexamic acid (Cyklokapron ) (10 mg/mL) in sodium chloride 100 mL continuous infusion 399.08 mg ceFAZolin 4 g Propofol INF 296.7 mg lactated ringers infusion 1,500 mL * Agents Name O2 Air N2O Sevoflurane (et) O2 Auxiliary Flowmeter 2 * Blood No blood administrations on file. Lines, Drains, and Airways Type Details Placement Removal (RETIRED) Peripheral IV Line - Single Lumen 01/05/22; 08; metacarpal vein (top of hand), right; jzhe-npr-reubvt catheter system; 22 gauge, 1 in length; Dorothea Hong RN; distraction, intradermal injection, tolerated well, appears comfortable; 0; removed per patient, catheter/device intact; 01/07/22; 209901/05/22 08 by Dorothea Hong RN 01/07/222099 by Morales Christianson RN ETT Mask Ventilation: Ea sy (1); ETT Type: Cuffed, Oral; ETT Size: 7 mm; Mac Blade: 3; Notes: Asleep, Pre-O2, Stylette; Attempts: 1; Laryngoscopy Grade: 1; ETT Placement Verified By: Auscultation, Capnometry, Visual; Secured at Teeth: 22 cm; Inserted by: Brenda Kwong CRNA; Removal Date: 01/05/22; Removal Time: 1410 01/05/22 0918 by Brenda Muro CRNA 01/05/22 1410 by Brenda Muro CRNA Urethral Catheter 01/05/22; 0920; Physician order; indwelling double lumen catheter; 100% silicone; 14; inserted at this facility; 1; 10; 10; none; drainage bag to dependent drainage; urethral catheter removed, tubing intact, per protocol/policy; 01/06/22; 1438 01/05/22 0920 by Kimo Britt RN 01/06/22 1438 by Katia Roldan RN Incision 01/05/22; 0952; lowe r; lumbar spine; vertical; LDA not present upon assessment; 06/10/23; 1558 01/05/22 0952 by Kimo Britt RN 06/10/23 1558 by Traci Tirado RN Closed/Suction Drain 01/05/22; 1315; 1; Inferior; Back; Bulb; 10 Swedish 01/05/22 1315 by Kimo Britt RN 01/06/22 0700 by Katia Roldan RN documented in this encounter Social History [...] OR Notes * Anesthesia Postprocedure Evaluation - Angelika Doe MD - 01/05/2022 8:26 PM EDT Department of Anesthesiology Post-procedure Note Patient: Bessie Levy Procedure Summary Date: 01/05/22 Room / Location: [facility] OR [address] [place] [address] MAIN OR Anesthesia Start: 904 Anesthesia Stop: 1423 Procedures: ARTHRODESIS, LUMBAR SPINE, SINGLE INTERSPACE (WRVU 23.53) (Bilateral Spine Lumbar) LAMINECTOMY, FACETECTOMY & FORAMINOTOMY,LUMBAR, ONE LEVEL (WRVU 15.37) (Bilateral Spine Lumbar) ARTHRODESIS, COMB. POST OR POSTEROLAT W/LAMI &/OR DISC SINGLE INTERSPACE; LUMBAR (WRVU 27.75) (Bilateral Spine Lumbar) POSTERIOR SPINAL NON-SEGMENTAL INST.(ONE SPACE) (WRVU 12.52) (Bilateral Spine Lumbar) AUTOGRAFT FOR SPINE SURGERY ONLY, SAME INCISION (WRVU *) (Bilateral ) ALLOGRAFT FOR SPINE SURGERY ONLY; MORSELIZED (WRVU *) (Bilateral ) MODIFIER SOLERA MODULAR MEDTRONIC (Bilateral ) MODIFIER,O-ARM, MOR (Bilateral ) MODIFIER,STEALTH 3 W/O KINEVO,CRANI/SPINE ONLY (Bilateral ) STEREOTACTIC COMPUTER-ASSTD NAVIGATIONAL SPINAL (WRVU 3.75) (Bilateral ) MODIFIER L4 (Bilateral ) MODIFIER L5 (Bilateral ) Diagnosis: Radiculopathy of lumbar region Congenital anomalies of spine Spondylolisthesis at L4-L5 level (Lumbar stenosis L4-5 with neurogenic medication) Surgeons: Charly Wilkins MD Responsible Provider: Angelika Doe MD Anesthesia Type: general ASA Status: 3 All Anesthesia Providers: Anesthesiologist: Angelika Doe MD; David Florian MD [employer]: Brenda Muro CRNA Vitals Value Taken Time BP 126/74 01/05/222000 Temp 37.2 ??C (99 ??F) 01/05/22 1900 Pulse 76 01/05/22 1713 Resp 16 01/05/221999 SpO2 93 % 01/05/222024 Pain Level 2 01/05/22 1630 Vitals shown include unvalidated device data. Patient Location: PACU/[facility] Level of Consciousness: Awake and Alert Pain Management: Satisfactory Analgesia PONV: None Cardiovascular Status: At Baseline Respiratory Status: At Baseline Postoperative Fluid Status: Possible Anesthetic Complications: NONE apparent at time of evaluation Final Primary Anesthesia Type: General (The anesthetic type performed was the same as planned.) Comments: * Anesthesia Preprocedure Evaluation - David Florian MD - 01/05/2022 8:19 AM EDT Pre-Anesthesia Evaluation for: Bessie Levy a 36 y.o. female. Procedure(s): ARTHRODESIS, LUMBAR SPINE, SINGLE INTERSPACE (WRVU 23.53) [...] SPINAL (WRVU 3.75) MODIFIER L4 MODIFIER L5 Patient Active Problem List Diagnosis Date Noted ??? Seizure-like activity 07/04/2021 ??? Radiculopathy of lumbar region 01/04/2020 ??? Seizures 05/05/2018 ??? CIS - Entered not Verified 08/10/2009 ??? CIS - ASD, S/P repair ??? CIS - Asthma ??? CIS - Depression ??? CIS - Hx CHTN No past medical history on file. Past Surgical History: Procedure Laterality Date ??? PRO INJECTION DX/THER SBST INTRLMNR LMBR/SAC W/IMG GDN Midline 05/18/2021 INJECTION, EPIDURAL, LUMBAR OR SACRAL (CAUDAL), WITH IMAGING GUIDANCE (WRVU 1.8) performed by Sarah Munguia MD at [facility] PAIN MGMT MSO Social History Tobacco Use ??? Smoking status: Never Smoker ??? Smokeless tobacco: Never Used ??? Tobacco comment: vapes but not nicotine Substance Use Topics ??? Alcohol use: Never Social History Substance and Sexual Activity Drug Use Yes ??? Types: Marijuana Comment: marijuana use daily pt vapes marijuana No Known Allergies Medications: MAR and/or home medications have been reviewed. Physical Exam: Preprocedure Vitals Current as of 01/05/22 0819 BP: 129/76 Pulse: 64 Resp: 16 SpO2: 98 Temp: 36.5 ??C (97.7 ??F) Height: 154.9 cm (5' 1) (01/05/22) Weight: 98.9 kg (218 lb) (01/05/22) BMI: 41.19 IBW: 47.8 kg (105 lb 4.8 oz) Last edited 01/05/22 0730 by MANAGER TECHNICAL SALES Airway Assessment: Mallampati: II TM distance: >3 FB Neck ROM: full Cardiovascular Assessment: Rate: normal Pulmonary Assessment: unlabored breathing Dental Assessment: - normal exam Misc Assessment: IV access: Peripheral line Last Filed Perioperative Cognitive Screening None Anesthesia Plan: ASA 3 general, with a(n) intravenous induction 36 y/o woman with a PMH of seizures, ASD s/p repair, obesity, depression, back pain for lumber decompression. No issue with GA in the past. NPO. Plan for GA, ETT. Region - Other Informed Consent: Anesthetic plan and risks discussed with patient. Plan discussed with [employer] and attending. Anesthesia Screening documented in this encounter Plan of Treatment Upcoming Encounters Date Type Department Care Team (Late st Contact Info) Description 12/24/2023 10:00 AM EDT Office Visit Neurology at [place] [phone] Tereso Mohan MD [facility] [place] [address] 12/24/2023 10:30 AM EDT Appointment XRay at [address] [place] [phone] Shelby Aaron APRN [facility] [place] [address] 12/24/2023 11:30 AM EDT Office Visit [facility] [place] [phone] Shelby Aaron APRN [facility] [place] [address] documented as of this encounter Visit Diagnoses Not on filedocumented in this encounter Administered Medications Inactive Administered Medications - up to 3 most recent administrations Medication Order MAR Action Action Date Dose Rate Site ceFAZolin (Ancef) 1 g in dextrose 5% 50 mL infusion Intravenous, PRN, Starting on Sat01/05/22 at 0915, Until Sat01/05/22 at 1424, Administer over 30 Minutes, Anesthesia Intra-op Given 01/05/2022 1:05 PM EDT 2 g Given 01/05/2022 9:15 AM EDT 2 g dexAMETHasone (Decadron) injection Intravenous, PRN, Starting on Sat01/05/22 at 0935, Until Sat01/05/22 at 1424, Anesthesia Intra-op, Routine Given 01/05/2022 9:35 AM EDT 8 mg dexmedeTOMIDine (Precedex) (4 mcg/mL) bolus injection (Anesthsia) Intravenous, PRN, Starting on Sat01/05/22 at 0914, Until Sat01/05/22 at 1424, Anesthesia Intra-op, Routine Given 01/05/2022 1:34 PM EDT 4 mcg Given 01/05/2022 12:53 PM EDT 8 mcg Given 01/05/2022 9:14 AM EDT 4 mcg glycopyrrolate (Robinul) (0.2 mg/mL) multi-dose injection Intravenous, PRN, Starting on Sat01/05/22 at 1332, Until Sat01/05/22 at 1424, Anesthesia Intra-op, Routine Given 01/05/2022 1:32 PM EDT 0.6 mg HYDROmorphone (Dilaudid) (2 mg/mL) multi-dose injection solution Intravenous, PRN, Starting on Sat01/05/22 at 0905, Until Sat01/05/22 at 1424, Anesthesia Intra-op, Routine Given 01/05/2022 1:36 PM EDT 0.4 mg Given 01/05/2022 12:48 PM EDT 0.2 mg Given 01/05/2022 11:33 AM EDT 0.4 mg lactated ringers infusion 1,000 mL, at 100 mL/hr, Intravenous, CONTINUOUS, Starting on Sat01/05/22 at 0745, Until Sat01/05/22 at 1653, Day of Surgery (Day of Procedure) New Bag 01/05/2022 11:20 AM EDT New Bag 01/05/2022 9:40 AM EDT New Bag 01/05/2022 8:11 AM EDT 1,000 mLs 100 mL/hr midazolam (pf) (Versed) (1 mg/mL) multi-dose injection Intravenous, PRN, Starting on Sat01/05/22 at 0905, Until Sat01/05/22 at 1424, Anesthesia Intra-op, Routine Given 01/05/2022 9:05 AM EDT 2 mg neostigmine (Bloxiver) (1 mg/mL) injection Intravenous, PRN, Starting on Sat01/05/22 at 1332, Until Sat01/05/22 at 1424, Anesthesia Intra-op, Routine Given 01/05/2022 1:32 PM EDT 4 mg ondansetron (pf) (Zofran) (2 mg/mL) injection Intravenous, PRN, Starting on Sat01/05/22 at 1328, Until Sat01/05/22 at 1424, Anesthesia Intra-op, Routine Given 01/05/2022 1:28 PM EDT 4 mg propofoL (Diprivan) (10 mg/mL) infusion Intravenous, CONTINUOUS PRN, Starting on Sat01/05/22 at 1333, Until Sat01/05/22 at 1424, Anesthesia Intra-op, Routine New Bag 01/05/2022 1:33 PM EDT 100 mcg/kg/min 59.34 mL/hr propofoL (Diprivan) 10 mg/mL bolus injection (Anesthesia) Intravenous, PRN, Starting on Sat01/05/22 at 0914, Until Sat01/05/22 at 1424, Anesthesia Intra-op Given 01/05/2022 9:14 AM EDT 200 mg rocuronium (Zemuron) (10 mg/mL) multi-dose injection Intravenous, PRN, Starting on Sat01/05/22 at 0915, Until Sat01/05/22 at 1424, Anesthesia Intra-op, Routine Given 01/05/2022 12:48 PM EDT 10 mg Given 01/05/2022 11:50 AM EDT 20 mg Given 01/05/2022 11:00 AM EDT 30 mg tranexamic acid (Cyklokapron) (10 mg/mL) in sodium chloride 100 mL continuous infusion 1 mg/kg/hr ? 90.7 kg (9.07 mL/hr, rounded to 9.1 mL/hr), Intravenous, CONTINUOUS, Starting on Sat01/05/22 at 0745, Until Sat01/05/22 at 1653, Day of Surgery (Day of Procedure) New Bag 01/05/2022 9:36 AM EDT 1 mg/kg/hr 9.07 mL/hr tranexamic acid (Cyklokapron) 1,361 mg in sodium chloride 0.9% 113.61 mL infusion 1,361 mg (rounded from 1,360.5 mg = 15 mg/kg/dose ? 90.7 kg), Intravenous, ONCE, 1 dose, On Sat01/05/22 at 0745, Administer over 30 Minutes, Day of Surgery (Day of Procedure) New Bag 01/05/2022 9:05 AM EDT 1,361 mg documented in this encounter Care Teams Asset Card Clerk Relationship Specialty Start Date End Date Comfort Urban, SELVIN [address] [place] [address] PCP - General Family Medicine 07/19/17 03/11/23 documented as of this encounter
--- OUTSIDE RECORDS SUMMARY | 2023-11-16 14:13 | XMS_ITS | Encounter Summary ---
Author Organization [facility] [place] [address] Care Team Providers Care Director Of Outside Sales Name Role Phone Comfort Urban APRN Primary Care Provider [phone] Encounter Details Date Type Department Care Team (Late st Contact Info) Description 12/12/2021 External Results [place] [phone] Eldon Hurley MD [facility] [place] [address] Social History Tobacco Use Types Packs/Day Years [...] AM EDT Office [place] [phone] Tereso Mohan MD [facility] [address] 12/24/2023 10:30 AM EDT Appointment XRay at [address] [place] [phone] Shelby Aaron SUPERVISOR LAUNDRY [facility] [place] [address] 12/24/2023 11:30 AM EDT Office Visit [facility] at [facility] [place] [address] Shelby Aaron SUPERVISOR LAUNDRY [facility] [address] documented as of this encounter Procedures Procedure Name Priority Date/Time Associated Diagnosis Comments EMG WITH F-WAVE Routine 12/12/2021 documented in this encounter Results * EMG WITH F-WAVE (12/12/2021) Eldon Hurley MD NEUROLOGY ORDERABLES documented in this encounter Visit Diagnoses Not on filedocumented in this encounter Care Teams Director Of Outside Sales Relationship Specialty Start Date End Date Comfort Urban APRN [address] [place] [address] PCP - General Family Medicine 07/19/17 03/11/23 documented as of this encounter
--- OUTSIDE RECORDS SUMMARY | 2023-11-16 14:13 | XMS_ITS | Encounter Summary ---
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 Refills: 0 lidocaine 5% Ptmd Commonly known as: Lidoderm Apply 1 patch onto the skin daily. (leave on for 12 hours and remove for 12 hours) Quantity: 30 patch Refills: 0 meloxicam 15 mg Tab Commonly known as: MOBIC Take 1 tablet by mouth daily. 15 mg Quantity: 30 tablet Refills: 12 ProAir HFA 90 mcg/actuation Hfaa INL 1 TO 2 PFS PO Q 4 TO 6 H PRN Generic drug: albuteroL Refills: 0 UNABLE TO FIND Take by mouth as needed. Med Name: CBD oil Refills: 0 STOPPED Medications divalproex EC 250 mg Tbec Commonly known as: Depakote levETIRAcetam 500 mg Tab Commonly known as: Keppra Smoking Status at Discharge: Social History Tobacco Use Smoking Status Never Smoker Smokeless Tobacco Never Used Instructions Given to Patient at Discharge: Patient Instructions After Visit Summary: (Please ensure patient gets a copy of their full discharge summary as well.) We hope that you have had a positive experience at the [facility] Epilepsy Monitoring Unit. Here is some general information about the details of your stay, and what comes next. Since you were off of medications for a period of time: ??? You may be at risk for having a seizure when you go home. Make sure someone who knows about your seizures stays with you and knows what to do in case you have one. ??? You may initially have side effects from going back on medications even though you were on thembefore. Be careful when engaging in any activities. ??? You may have memory problems and forget some of the instructions given to you or the answers toquestions that you may have had about your stay. Refer to your discharge paperwork for instructions. Write down your questions to bring to your follow up appointment. MEDICATIONS CHANGES: Continue: Onfi 10mg AM/ 20mg PM Stop: Keppra and Depakote ??? Always take your medication as prescribed by your physician. Ask your nurse to help you arrangea convenient schedule for taking your medication. ??? [...] should discuss side effects with your provider. Mostepilepsy medications have similar ???brain related?? side effects which include sleepiness, dizziness, mood changes, balance problems, memory problems and vision problems. Some may cause weight changes. You may also obtain printed information about side effects of your medication. ??? Check with your provider before taking imul-clh-gnofbfl medications or herbal therapies. These can interfere with how well your seizure medications work. FOLLOWUP APPOINTMENT: You will have an outpatient followup appointment in the neurology clinic at [facility]. If not already listed in this document, we will contact you to schedule this appointment. -- If 1 week passes by after you are discharged and you still do not have an appointment, please call [phone]. Future Appointments and Orders Future Appointments and Orders Future Appointments Provider Department Dept Phone 12/01/2021 10:00 AM Bakari Quinones MD Cardiology at [facility] Arrive at: [facility] Area 4A [phone] 12/12/2021 9:45 AM Eldon Hurley MD; EMG, ROOM 2 Neurology at [facility] Arrive at: [facility] Area 3C [phone] 01/16/2022 4:30 PM Tereso Mohan MD Neurology at [facility] Arrive at: [facility] Operator Area 3C [phone] 02/01/2022 1:00 PM [facility] US ROOM 3 Ultrasound at [facility] Arrive at: [facility] Tower Operator Area [phone] If you need to bring a child [...] is permitted in the ultrasound room. 02/01/2022 2:00 PM Naveen Hodge MD Obstetrics and Gynecology at [facility] Arrive at: Cable Tower Operator Area 5L [phone] Future Orders Complete By Expires US Transvaginal Non OB [[id number] Custom] 01/19/2022 (Approximate) 07/21/2022 Process Instructions: All Bias Binding Folder exams are performed trans-vaginally to evaluate the uterus and adnexa. This is the default order for all gynecologic exams. Scheduling Instructions: Comments: Questions: Where will study be performed?: [facility] Radiology Portable exam?: Reason for exam and clinical history: 36yo female f/u 5cm left adnexal cyst Clinical information / jara questions for radiologist: Do any of the following apply: History of: Tubes tied Is the patient ?: Unknown Stat read required?: Patient's LMP?: Date of injury if applicable: Requested Time: Specific instructions related to your condition: ??? Call your doctor or seek medical attention if you experience an event lasting more than 5 minutes. ??? Advise your family and friends that if you have an episode, they should position you on a flat carpeted surface if possible, in a clear area, to avoid injury. They should turn you on your side ifyou start to vomit. Keep track of the date and time the event started, how long it lasted, whether or not you lost consciousness, a description of your body movements, what provoked it (if known), and any injuries you suffered. ??? Activity restrictions:To minimize your risk of injury, we recommend the following: Take showersinstead of baths. Do not swim unsupervised. Avoid scuba diving and other underwater activities. Avoid hazardous activities such as mountain climbing, fires, and activities involving heights. Avoid using heavy machinery, such as chainsaws. ??? Driving restrictions: [place] Residents: According to [place] driving laws, after you have experienced an episode of loss of consciousness due to a seizure you cannot drive for a minimum of 1 year or until cleared by your physician. We strongly recommend that you avoid driving cars, recreational vehicles or heavy machinery and seek alternate transportation. [Statute[place] SAF-C 205.08] For more information, please visit [email or web address]/resources/Ufgndtr-Adbd-ib-State.cfm [place] Residents: According to [place] driving laws, after you have experienced an episode of lossof consciousness due to a seizure you may not be able drive until cleared by your physician with final approval depending upon the [place] Commissioner. We strongly recommend that you avoid driving cars, recreational vehicles or heavy machinery and seek alternate transportation. [Statute: 23 [place]. STAT. MAIKEL. ? 636-37] For more information, please visit [email or web address]/resources/Dqzlpfj-Fxbf-vh-State.cfm ?? Diet: As before. For questions regarding this document or issues relating to this hospitalization on the Neurology Service, please contact your inpatient physician through the [facility] [employer]ment Tag [employer]er . Issues after hours and on weekends will be handled by the Neurology staff on-call. General Instructions None Future Appointments and Orders Future Appointments and Orders Future Appointments Provider Department Dept Phone 12/01/2021 10:00 AM Bakari Quinones MD Cardiology at [facility] Arrive at: [facility] Area 4A [phone] 12/12/2021 9:45 AM Eldon Hurley MD; EMG, ROOM 2 Neurology at [facility] Arrive at: [facility] [employer] Area 3C [phone] 01/16/2022 4:30 PM Tereso Mohan MD Neurology at [facility] Arrive at: [facility] Operator Area 3C [phone] 02/01/2022 1:00 PM [facility] US ROOM 3 Ultrasound at [facility] Arrive at: Cable Tower Operator Area 3S [phone] If you need to bring a child [...] is permitted in the ultrasound room. 02/01/2022 2:00 PM Naveen Hodge MD Obstetrics and Gynecology at [facility] Arrive at: Cable [facility] Area 5L [phone] Future Orders Complete By Expires US Transvaginal Non OB [[id number] Custom] 01/19/2022 (Approximate) 07/21/2022 Process Instructions: All Bias Binding Folder exams are performed trans-vaginally to evaluate the uterus and adnexa. This is the default order for all gynecologic exams. Scheduling Instructions: Comments: Questions: Where will study be performed?: [facility] Radiology Portable exam?: Reason for exam and clinical history: 36yo female f/u 5cm left adnexal cyst Clinical information / jara questions for radiologist: Do any of the following apply: History of: Tubes tied Is the patient ?: Unknown Stat read required?: Patient's LMP?: Date of injury if applicable: Requested Time: Primary Care Provider: Comfort Urban, SELVIN [address] / [place] [address] Discharge References/Attachments None documented in this encounter Discharge Instructions * Discharge Instructions* Lorin Guevara APRN - 11/29/2021 11:30 AM EDT To review the profiles of private practice therapists, including ones listed above: 1) Visit [email or web address] 2) Enter your city name or zip code 3) Filter search results on the right hand side, including by insurance 4) Review therapist profiles 5) Call to schedule an intake appointment * Patient Instructions* Lorin Guevara APRN - 11/29/2021 8:30 AM EDT After Visit Summary: (Please ensure patient gets a copy of their full discharge summary as well.) We hope that you have had a positive experience at the [facility] Epilepsy Monitoring Unit. Here is some general information about the details of your stay, and what comes next. Since you were off of medications for [...] to your follow up appointment. MEDICATIONS CHANGES: Continue: Onfi 10mg AM/ 20mg PM Stop: Keppra and Depakote Always take your medication as prescribed by [...] ???brain related?? side effects which include sleepiness, dizziness,mood changes, balance problems, memory problems and vision problems. Some may cause weight changes.You may also obtain printed information about side effects of your medication. Check with your provider before taking rqej-swk-olayssm medications or herbal therapies. These can interfere with how well your seizure medications work. FOLLOWUP APPOINTMENT: You will have an outpatient followup appointment in the neurology clinic at [facility]. If not already listed in this document, we will contact you to schedule this appointment. -- If 1 week passes by after you are discharged and you still do not have an appointment, please call [phone]. Future Appointments and Orders Future Appointments and Orders Future Appointments Provider Department Dept Phone 12/01/2021 10:00 AM Bakari Quinones MD Cardiology at [facility] Arrive at: [facility] Area 4A [phone] 12/12/2021 9:45 AM Eldon Hurley MD; [facility] 2 Neurology at [facility] Arrive at: Cable Tower Operator Area 3C [phone] 01/16/2022 4:30 PM Tereso Mohan MD Neurology at [facility] Arrive at: Cable Tower Operator Area 3C [phone] 02/01/2022 1:00 PM [facility] ROOM 3 Ultrasound at [facility] Arrive at: Cable Tower Operator Area [phone] If you need to bring a child [...] is permitted in the ultrasound room. 02/01/2022 2:00 PM Naveen Hodge MD Obstetrics and Gynecology at [facility] Arrive at: Cable Tower Operator Area Future Orders Complete By Expires US Transvaginal Non OB [[id number] Custom] 01/19/2022 (Approximate) 07/21/2022 Process Instructions: All Bias Binding Folder exams are performed trans-vaginally to evaluate the uterus and adnexa. This is the default order for all gynecologic exams. Scheduling Instructions: Comments: Questions: Where will study be performed?: [facility] Radiology Portable exam?: Reason for exam and clinical history: 36yo female f/u 5cm left adnexal cyst Clinical information / jara questions for radiologist: Do any of the following apply: History of: Tubes tied Is the patient ?: Unknown Stat read required?: Patient's LMP?: Date of injury if applicable: Requested Time: Specific instructions related to your condition: Call your doctor or seek medical attention if you experience an event lasting more than 5 minutes. Advise your family and friends that if you have an episode, they should position you on a flat carpeted surface if possible, in a clear area, to avoid injury. They should turn you on your side if youstart to vomit. Keep track of the date [...] heavy machinery, such as chainsaws. Driving restrictions: [place] Residents: According to [place] driving laws, after you have experienced an episode of loss of consciousness due to a seizure you cannot drive for a minimum of 1 year or until cleared by your physician. We strongly recommend that you avoid driving cars, recreational vehicles or heavy machinery and seek alternate transportation. [[place] SAF-C 205.08] For more information, please visit [email or web address]/[email or web address]-Qhft-nq-State.cfMoh[facility] Residents: According to [place] driving laws, after you have experienced an episode of lossof consciousness due to a seizure you may not be able drive until cleared by your physician with final approval depending upon the [place] Commissioner. We strongly recommend that you avoid driving cars, recreational vehicles or heavy machinery and seek alternate transportation. [Statute: 23 [place] STAT. MAIKEL. ? 636-37] For more information, please visit [email or web address]/resources/Nanccmu-Lccu-ty-State.cfm Diet: As before. For questions regarding this document or issues relating to this hospitalization on the Neurology Service, please contact your inpatient physician through the [facility] [employer] . Issues after hours and on weekends will be handled by [...] in PM 90 tablet 5 09/19/2021 03/13/2022 meloxicam (MOBIC) 15 mg Tablet Take 1 tablet by mouth daily. 30 tablet 12 11/15/2020 12/12/2021 citalopram (CELEXA) 20 mg Tablet Take 40 mg by mouth daily. 0 02/03/2018 03/12/2023 documented as of this encounter Progress Notes * Shahla Valdez MSW - 11/29/2021 11:44 AM EDT WET CLEANER MACHINE missed seeing patient before discharged. Contacted patient by telephone to offer CBT resources/providers in the [facility] ([facility]) area in [place]. Patient to utilize [employer] websiteas well as speak with her PCP, Comfort Urban APRN about local therapists she might recommend and, as a last resort, I can go to [facility] Human Services their local mental health provider. Patient confirms that she was seeing ARIE Morales but stopped seeing her due to her work schedule, and yasmin has retired. Patient feels confident that she will be able to find another CBT therapist from the above resources and confirms with WET CLEANER MACHINE that she will work on getting a therapist during her FMLA time off. No other requests or needs stated by patient to WET CLEANER MACHINE at time of discharge. * Lorin Guevara APRN - 11/29/2021 9:15 AM EDT [facility] EPILEPSY MONITORING UNIT- PROGRESS NOTE Lennox Garber: 36 y.o.: [id number]: Referring Provider: Comfort Urban APRN: 11/29/21 CC: Seizures/Tremors ID: Lennox Garber is a 36 y.o. y/o right-handed female with hx seizures since 2014, new onset edema-pitting w/50 lb weight gain over 6 months, concerning cystic lesion on ovary, worsening asthma/SOB, anxiety, phhx of chronic back pain, GERD, HTN, HLD, fibromyalgia and migraines who is admitted to the video EEG monitoring unit for characterization of events (focal vs generalized), as well as evaluation as to why she has decompensated so much in the past 6 months (especially concerning is the edema and cystic lesion on her ovary), corresponding with increased seizure frequency. ?? Interval History: - No events overnight Physical Exam General appearance: No acute distress; conversant Vitals: Temp: [36.6 ??C (97.9 ??F)-36.8 ??C (98.2 ??F)] Heart Rate: -- Resp: [16-18] BP: (110-134)/(70-86) SpO2: [94 %-96 %] Heart Rate from SpO2: [51 bpm-72 bpm] Lungs: Normal WOB on RA Neuro: Alert and oriented, answering questions appropriately Moving all extremities spontaneously Tremor noted throughout, improved Non pitting edema -- improved during admission off Depakote Assessment Lennox Garber is a 36 y.o. y/o right-handed female with hx seizures since 2014, new onset edema-pitting w/50 lb weight gain over 6 months, concerning cystic lesion on ovary, worsening asthma/SOB, anxiety, phhx of chronic back pain, GERD, HTN, HLD,Fibromyalgia and migraines who presents for videoEEG monitoring for further evaluation and??characterization of events.?? In order to precipitate seizure activity antiepileptic medication will be withheld. This places thepatient at a high risk for seizures and status epilepticus, warranting inpatient admission for close monitoring and safety precautions. 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 Pt reports that tremors have occurred more frequently since taking VPA. No known family h/o tremor.Improved off VPA. On 11/26 - Given the potential dual diagnosis, we briefly discussed psychosocial stressors, which the pt reports at least several, I.e., undergoing a divorce at present, grandparents' , rearingteenage daughters. She has tried counseling in the past, but has not been able to continue this dueto work hours. We emphasized the importance of this for her well being, and also the possible treatment of potential non-epileptic spells. Pt has apt with card on 12/01 for cardiac evaluation. Plan? Admit to neurology ? 24 hour Video EEG monitoring ?? Seizure precautions ?? If no seizure by HD2: Photic, HV, Sleep Deprive ?? Basic labs on admission, including AED levels ?? PT/OT ? Prophylaxis:? Tylenol for pain ?? SCDs, Lovenox, ambulate frequently to prevent DVTs. ? ASM Plan ? ASMs ?? Continue Onfi 10mg AM/ 20mg PM ?? Discontinue Depakote 250 mg AM/ 500mg PM Keppra 500mg BID ? Other Meds: ?? Continue remaining home medications ? Tentative rescue plan ? Acute repetitive seizures ?? 5mg IV Diazepam after 1 GTC or 3 focal with impaired awareness (complex partial) seizures in 24 hours. ?? If No IV access: give 5mg intranasal midazolam as alternative ? If progression to status Epilepticus: ?? Any GTC longer than 5 minutes or focal with impaired awareness seizure longer than 10 minutes ?? First line: 5-10 mg IV Diazepam ?? Second line Levetiracetam 60mg/kg IV (max rate 100mg/min) ? Nursing seizure exam plan: ? Standard Exam: ?? Assess A&O status, give code word for later recall, follow simple/complex commands, assess language, strength/motor function. ? Abdominal distention, pain, SOB and pitting edema - Consulted OBGYN onc who felt low likely yadav for malignancy suggested TVU and gen holistic specialist consult instead, GYROSCOPIC INSTRUMENT TESTER consult placed --> F/U outpatient - Chest XR obtained 11/23 --> no evidence of PNA or pulmonary edema - Lab workup including (catecholamines, thyroid, urine culture)--> pending results. CBC/BMP, urine unremarkable, T4 4.7 Free T4 0.70, TSH 1.50. ?? Dispo Planning ? Today ?? CODE STATUS: Full Code Total time greater than 35 minutes which was spent on pre-charting, reviewing results of diagnosticstudies, as well as patient education and counseling. Lorin Guevara APRN, PhD Professor of Neurology [facility] Epilepsy Program Department of Neurology Personal Pager #[phone] Associated attestation - Ming Apodaca MD - 11/30/2021 9:00 AM EDT I saw and evaluated the patient with Milagros Guevara APRN. S: Lennox is a 36 year old right handed woman with reported seizures since 2015, multiple medical issues, including new onset edema in the LE, unexpected weight gain, probable benign ovarian lesion,back pain, fibromyalgia, migraines, admitted to the EMU for diagnostic evaluation. While she has historical events concerning for possible epileptic seizure, more recent ones in the past year appear to be provoked in the setting of taking edible THC (home-cooked) and significant life stressors (divorce), grandparent's , teenage daughters. O: EEG has been normal interictally. Over the weekend habitual events of waking up confused with some abnormal motor movements captured and are non-epileptic. A/P 36-year old with likely non-epileptic events recently related to severe stress in her life recently, however a prior history of epileptic seizures cannot be ruled out (I.e. ?dual diagnosis) Tremor, edema, mood better with discontinuation of Keppra and Depakote. See comprehensive EMU report for detailed impression. Ming Apodaca MD [facility] Epilepsy Program Department of Neurology * Iraida Thapa RN - 11/28/2021 6:07 PM EDT OUTCOME EVALUATION NOTE: OUTCOME SUMMARY: A&Ox4. Numbness/tingling reported in BUE in fingertips per patient at baseline. Tremors noted in BUE. Strengths 5/5. Generalized edema, +1 in bilat. Ankles and feet. Continued home Onfi. Depakoteand Keppra held, see MAR. VEEG continued and seizure precautions maintained. No seizure activity noted. PLAN MOVING FORWARD: Q6 VS VEEG Sz precautions Discharge planning INDIVIDUALIZED FALL PREVENTION INTERVENTIONS: Patient-specific fall risk factors per assessment: Hospital environment, PIV, VEEG Assistance: SBA Supervision: Eyes on, Arms reach Surveillance: Bed locked in low position, call ignacio within reach, purposeful hourly rounding, clutter free environment, bed/chair alarm on. Patient-specific fall prevention interventions for sensory deficits provided: N/A CPG GOAL OUTCOME EVALUATION: Continue care plan as documented. * Lorin Guevara, MAIL HANDLER ASSISTANT - 11/28/2021 7:30 AM EDT [facility] EPILEPSY MONITORING UNIT- PROGRESS NOTE Lennox Garber: 36 y.o.: [id number]: Referring Provider: Comfort Urban, MAIL HANDLER ASSISTANT: 11/28/21 CC: Seizures/Tremors ID: Lennox Garber is a 36 y.o. y/o right-handed female with hx seizures since 2014, new onset edema-pitting w/50 lb weight gain over 6 months, concerning cystic lesion on ovary, worsening asthma/SOB, anxiety, phhx of chronic back pain, GERD, HTN, HLD, fibromyalgia and migraines who is admitted to the video EEG monitoring unit for characterization of events (focal vs generalized), as well as evaluation as to why she has decompensated so much in the past 6 months (especially concerning is the edema and cystic lesion on her ovary), corresponding with increased seizure frequency. ?? Interval History: - No events overnight - Reports feels better of Keppra (more clear) and Depakote (tremor and edema improved) Physical Exam General appearance: No acute distress; conversant Vitals: Temp: [36.8 ??C (98.2 ??F)-37.2 ??C (99 ??F)] Heart Rate: [69] Resp: [16-17] BP: (113-132)/(64-72) SpO2: [88 %-98 %] Heart Rate from SpO2: [60 bpm-88 bpm] Lungs: Normal WOB on RA Neuro: Alert and oriented, answering questions appropriately Moving all extremities spontaneously Tremor noted throughout, improved Peripheral edema 1+ Assessment Lennox Garber is a 36 y.o. y/o right-handed female with hx seizures since 2014, new onset edema-pitting w/50 lb weight gain over 6 months, concerning cystic lesion on ovary, worsening asthma/SOB, anxiety, phhx of chronic back pain, GERD, HTN, HLD,Fibromyalgia and migraines who presents for videoEEG monitoring for further evaluation and??characterization of events.?? In order to precipitate seizure activity antiepileptic medication will be withheld. This places thepatient at a high risk for seizures and status epilepticus, warranting inpatient admission for close monitoring and safety precautions. 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 Pt reports that tremors have occurred more frequently since taking VPA. No known family h/o tremor.Improved off VPA. On 11/26 - Given the potential dual diagnosis, we briefly discussed psychosocial stressors, which the pt reports at least several, I.e., undergoing a divorce at present, grandparents' , rearingteenage daughters. She has tried counseling in the past, but has not been able to continue this dueto work hours. We emphasized the importance of this for her well being, and also the possible treatment of potential non-epileptic spells. Pt has apt with card on 12/01 for cardia evaluation. Plan? Admit to neurology ? 24 hour Video EEG monitoring ?? Seizure precautions ?? If no seizure by HD2: Photic, HV, Sleep Deprive ?? Basic labs on admission, including AED levels ?? PT/OT ? Prophylaxis:? Tylenol for pain ?? SCDs, Lovenox, ambulate frequently to prevent DVTs. ? ASM Plan ? ASMs ?? Continue Onfi 10mg AM/ 20mg PM ?? Discontinue Depakote 250 mg AM/ 500mg PM Keppra 500mg BID ? Other Meds: ?? Continue remaining home medications ? Tentative rescue plan ? Acute repetitive seizures ?? 5mg IV Diazepam after 1 GTC or 3 focal with impaired awareness (complex partial) seizures in 24 hours. ?? If No IV access: give 5mg intranasal midazolam as alternative ? If progression to status Epilepticus: ?? Any GTC longer than 5 minutes or focal with impaired awareness seizure longer than 10 minutes ?? First line: 5-10 mg IV Diazepam ?? Second line Levetiracetam 60mg/kg IV (max rate 100mg/min) ? Nursing seizure exam plan: ? Standard Exam: ?? Assess A&O status, give code word for later recall, follow simple/complex commands, assess language, strength/motor function. ? Abdominal distention, pain, SOB and pitting edema - Consulted OBGYN onc who felt low likely yadav for malignancy suggested TVU and gen holistic specialist consult instead, GYROSCOPIC INSTRUMENT TESTER consult placed --> F/U outpatient - Chest XR obtained 11/23 --> no evidence of PNA or pulmonary edema - Lab workup including (catecholamines, thyroid, urine culture)--> pending results. CBC/BMP, urine unremarkable, T4 4.7 Free T4 0.70, TSH 1.50. ?? Dispo Planning ? Pending Course ?? CODE STATUS: Full Code Total time greater than 35 minutes which was spent on pre-charting, reviewing results of diagnosticstudies, as well as patient education and counseling. Lorin Guevara APRN, PhD Professor of Neurology [facility] Department of Neurology Personal Pager #[phone] Associated attestation - Ming Apodaca MD - 11/28/2021 8:15 PM EDT I saw and evaluated the patient with Milagros Guevara APRN. S: Lennox is a 36 year old right handed woman with reported seizures since 2014, multiple medical issues, including new onset edema in the LE, unexpected weight gain, probable benign ovarian lesion,back pain, fibromyalgia, migraines, admitted to the EMU for diagnostic evaluation. While she has historical events concerning for possible epileptic seizure, more recent ones in the past year appear to be provoked in the setting of taking edible THC (home-cooked) and significant life stressors (divorce), grandparent's , teenage daughters. O: Overall, interictal EEG has been normal. Over the weekend, ictal events described as coldness over the chest, brief shaking of bilateral arms and waxing/waning quality, disorientation with preserved awareness were seen without EEG correlate. Favors non-epileptic. On exam -> she has bilateral intention tremor and a resting tremor in her head/jaw and hands. A/P: Keppra was started the day before this admission. She went to the ER for an event in the setting of severe stress. She has had mood symptoms on Keppra. She has had worsening hand tremors since being on Depakote. We had a long discussion that at the least we should discontinue the Keppra. I would favor being off Depakote and continue Onfi for now. If she continues to have events that are consistent with epileptic seizure, then I would favor a new medication such as Zonisamide. 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 A dual diagnosis cannot be excluded. -Plan to discharge tomorrow and continue Onfi. D/c Keppra and Depakote. * Mae Vasquez RN - 11/27/2021 7:36 PM EDT OUTCOME EVALUATION NOTE: OUTCOME SUMMARY: Pt AOx4. VSS. Continues VEEG. Depakote + keppra held. No events this shift. Tremor seems to be muchimproved. Sz PCs maintained, side rails padded. Will CTM. Safety maintained. PLAN MOVING FORWARD: Continue VEEG INDIVIDUALIZED FALL PREVENTION INTERVENTIONS: Patient-specific fall risk factors per assessment: VEEG, hospital setting Assistance: SBA Supervision: Arms reach Surveillance: Bed locked in low position, call ignacio within reach, purposeful hourly rounding, clutter free environment, bed/chair alarm on Patient-specific fall prevention interventions for sensory deficits provided: Yes CPG GOAL OUTCOME EVALUATION: Continue care plan as documented. * Lorin Guevara, SELVIN - 11/27/2021 7:38 AM EDT [facility] EPILEPSY MONITORING UNIT- PROGRESS NOTE Lennox Garber: 36 y.o.: [id number]: Referring Provider: Comfort Urban, MAIL HANDLER ASSISTANT: 11/27/21 CC: Seizures/Tremors ID: Lennox Garber is a 36 y.o. y/o right-handed female with hx seizures since 2015, new onset edema-pitting w/50 lb weight gain over 6 months, concerning cystic lesion on ovary, worsening asthma/SOB, anxiety, phhx of chronic back pain, GERD, HTN, HLD, fibromyalgia and migraines who is admitted to the video EEG monitoring unit for characterization of events (focal vs generalized), as well as evaluation as to why she has decompensated so much in the past 6 months (especially concerning is the edema and cystic lesion on her ovary), corresponding with increased seizure frequency. ?? Interval History: - No events overnight Physical Exam General appearance: No acute distress; conversant Vitals: Temp: [36.1 ??C (97 ??F)-36.5 ??C (97.7 ??F)] Heart Rate: -- Resp: [16-20] BP: (95-124)/(51-70) SpO2: [93 %-96 %] Heart Rate from SpO2: [56 bpm-69 bpm] Lungs: Normal WOB on RA Neuro: Alert and oriented, answering questions appropriately Moving all extremities spontaneously Tremor noted throughout, improved Peripheral edema 1+ Assessment Lennox Garber is a 36 y.o. y/o right-handed female with hx seizures since 2014, new onset edema-pitting w/50 lb weight gain over 6 months, concerning cystic lesion on ovary, worsening asthma/SOB, anxiety, phhx of chronic back pain, GERD, HTN, HLD,Fibromyalgia and migraines who presents for videoEEG monitoring for further evaluation and??characterization of events.?? In order to precipitate seizure activity antiepileptic medication will be withheld. This places thepatient at a high risk for seizures and status epilepticus, warranting inpatient admission for close monitoring and safety precautions. 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 Pt reports that tremors have occurred more frequently since taking VPA. No known family h/o tremor.Improved off VPA. On 11/26 - Given the potential dual diagnosis, we briefly discussed psychosocial stressors, which the pt reports at least several, I.e., undergoing a divorce at present, grandparents' , rearingteenage daughters. She has tried counseling in the past, but has not been able to continue this dueto work hours. We emphasized the importance of this for her well being, and also the possible treatment of potential non-epileptic spells. Plan? Admit to neurology ? 24 hour Video EEG monitoring ?? Seizure precautions ?? If no seizure by HD2: Photic, HV, Sleep Deprive ?? Basic labs on admission, including AED levels ?? PT/OT ? Prophylaxis:? Tylenol for pain ?? SCDs, Lovenox, ambulate frequently to prevent DVTs. ? ASM Plan ? ASMs ?? Continue Onfi 10mg AM/ 20mg PM ?? Discontinue Depakote 250 mg AM/ 500mg PM Keppra 500mg BID ? Other Meds: ?? Continue remaining home medications ? Tentative rescue plan ? Acute repetitive seizures ?? 5mg IV Diazepam after 1 GTC or 3 focal with impaired awareness (complex partial) seizures in 24 hours. ?? If No IV access: give 5mg intranasal midazolam as alternative ? If progression to status Epilepticus: ?? Any GTC longer than 5 minutes or focal with impaired awareness seizure longer than 10 minutes ?? First line: 5-10 mg IV Diazepam ?? Second line Levetiracetam 60mg/kg IV (max rate 100mg/min) ? Nursing seizure exam plan: ? Standard Exam: ?? Assess A&O status, give code word for later recall, follow simple/complex commands, assess language, strength/motor function. ? Abdominal distention, pain, SOB and pitting edema - Consulted OBGYN onc who felt low likely yadav for malignancy suggested TVU and gen holistic specialist consult instead, GYROSCOPIC INSTRUMENT TESTER consult placed --> F/U outpatient - Chest XR obtained 11/23 --> no evidence of PNA or pulmonary edema - Lab workup including (catecholamines, thyroid, urine culture)--> pending results. CBC/BMP, urine unremarkable, T4 4.7 Free T4 0.70, TSH 1.50 ?? Dispo Planning ? Pending Course ?? CODE STATUS: Full Code Total time greater than 35 minutes which was spent on pre-charting, reviewing results of diagnosticstudies, as well as patient education and counseling. Lorin Guevara APRN, PhD Professor of Neurology [facility] Department of Neurology Personal Pager #[phone] Associated attestation - Ming Apodaca MD - 11/28/2021 8:14 PM EDT I saw and evaluated the patient with Milagros Guevara APRN. S: Lennox is a 36 year old right handed woman with reported seizures since 2015, multiple medical issues, including new onset edema in the LE, unexpected weight gain, probable benign ovarian lesion,back pain, fibromyalgia, migraines, admitted to the EMU for diagnostic evaluation. While she has historical events concerning for possible epileptic seizure, more recent ones in the past year appear to be provoked in the setting of taking edible THC (home-cooked) and significant life stressors (divorce), grandparent's , teenage daughters. O: Overall, interictal EEG has been normal. Over the weekend, ictal events described as coldness over the chest, brief shaking of bilateral arms and waxing/waning quality, disorientation with preserved awareness were seen without EEG correlate. Favors non-epileptic. On exam -> she has bilateral intention tremor and a resting tremor in her head/jaw and hands. A/P: Keppra was started the day before this admission. She went to the ER for an event in the setting of severe stress. She has had mood symptoms on Keppra. She has had worsening hand tremors since being on Depakote. We had a long discussion that at the least we should discontinue the Keppra. I would favor being off Depakote and continue Onfi for now. If she continues to have events that are consistent with epileptic seizure, then I would favor a new medication such as Zonisamide. 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 A dual diagnosis cannot be excluded. * Cipriano Tejeda MD - 11/26/2021 9:49 PM EDT [facility] EPILEPSY MONITORING UNIT- PROGRESS NOTE Lennox Garber: 36 y.o.: [id number]: Referring Provider: Comfort Urban, MAIL HANDLER ASSISTANT: 11/26/21 CC: Seizures/Tremors ID: Lennox Garber is a 36 y.o. y/o right-handed female with hx seizures since 2015, new onset edema-pitting w/50 lb weight gain over 6 months, concerning cystic lesion on ovary, worsening asthma/SOB, anxiety, phhx of chronic back pain, GERD, HTN, HLD, fibromyalgia and migraines who is admitted to the video EEG monitoring unit for characterization of events (focal vs generalized), as well as evaluation as to why she has decompensated so much in the past 6 months (espeically concerning is the edema and cystic lesion on her ovary), corresponding with increased seizure frequency. ?? Interval History: - Per nursing notes, patient had one push button event about 2300. Pt stated was hot, tingling, andfelt like head was in a vice. No clinical seizure activity witnessed, pt slept after - Overnight had one more event, which appears to be non-epileptic (see VEEG report for details) - Pt reports that tremors have occurred more frequently since taking VPA. No known family h/o tremor. - Given the potential dual diagnosis, we briefly discussed psychosocial stressors, which the pt reports at least several, I.e., undergoing a divorce at present, grandparents' , rearing teenagedaughters. She has tried counseling in the past, but has not been able to continue this due to workhours. We emphasized the importance of this for her well being, and also the possible treatment of potential non-epileptic spells. Physical Exam General appearance: No acute distress; conversant Vitals: Temp: [36.1 ??C (97 ??F)-36.5 ??C (97.7 ??F)] Heart Rate: -- Resp: [16-20] BP: (95-124)/(51-70) SpO2: [93 %-96 %] Heart Rate from SpO2: [56 bpm-69 bpm] Lungs: Normal WOB on RA Neuro: Alert and oriented, answering questions appropriately Moving all extremities spontaneously Tremor noted throughout Assessment Lennox Garber is a 36 y.o. y/o right-handed female with hx seizures since 2015, new onset edema-pitting w/50 lb weight gain over 6 months, concerning cystic lesion on ovary, worsening asthma/SOB, anxiety, phhx of chronic back pain, GERD, HTN, HLD,Fibromyalgia and migraines who presents for videoEEG monitoring for further evaluation and??characterization of events.?? In order to precipitate seizure activity antiepileptic medication will be withheld. This places thepatient at a high risk for seizures and status epilepticus, warranting inpatient admission for close monitoring and safety precautions. ?? Overnight had one more episode, which appeared to be non-epileptic- no abnormal EEG correlate but could be suspicious for frontal lobe seizure, will attempt to capture more events. Plan is to continue to hold Depakote and continue video-EEG monitoring to characterize more events/seizures. Plan? Admit to neurology ? 24 hour Video EEG monitoring ?? Seizure precautions ?? If no seizure by HD2: Photic, HV, Sleep Deprive ?? Basic labs on admission, including AED levels ?? PT/OT ? Prophylaxis:? Tylenol for for pain ?? SCDs, Lovenox, ambulate frequently to prevent DVTs. ? ASM Plan ? ASMs ?? Continue Onfi 10mg AM/ 20mg PM Keppra 500mg BID ?? Discontinue Depakote 250 mg AM/ 500mg PM ? Other Meds: ?? Continue remaining home medications ? Tentative rescue plan ? Acute repetitive seizures ?? 5mg IV Diazepam after 1 GTC or 3 focal with impaired awareness (complex partial) seizures in 24 hours. ?? If No IV access: give 5mg intranasal midazolam as alternative ? If progression to status Epilepticus: ?? Any GTC longer than 5 minutes or focal with impaired awareness seizure longer than 10 minutes ?? First line: 5-10 mg IV Diazepam ?? Second line ?? Vimpat 400mg IV --> EKG post load ? Nursing seizure exam plan: ? Standard Exam: ?? Assess A&O status, give code word for later recall, follow simple/complex commands, assess language, strength/motor function. ? Abdominal distention, pain, SOB and pitting edema - Consulted OBGYN onc who felt low likelyhood for malignancy suggested TVU and gen holistic specialist consult instead, GYROSCOPIC INSTRUMENT TESTER consult placed --> awaiting reccs - Chest XR obtained 11/23 --> no evidence of PNA or pulmonary edema - Lab workup including (catecholamines, thyroid, urine culture)--> pending results. CBC/BMP unremarkable ?? Dispo Planning ? Pending Course ?? CODE STATUS: Full Code Total time greater than 35 minutes which was spent on pre-charting, reviewing results of diagnosticstudies, as well as patient education and counseling. CIPRIANO TEJEDA MD, PhD Professor of Neurology [facility] Department of Neurology Personal Pager #[phone] * Mae Vasquez RN - 11/26/2021 6:54 PM EDT OUTCOME EVALUATION NOTE: OUTCOME SUMMARY: Pt AOx4. VSS. Continues VEEG. Sz PCs maintained. No events this shift. No auras reported. Continue to hold depakote. Noteably less tremulous this shift than in previous shifts. Was able to get OOB and into chair for approximately 2 hours this shift. Pt reporting tightness and discomfort to BLE, ambulated around unit and allowed to stretch with moderate event. Currently reporting moderate-severe back pain, given heat back with no effect, provider notified. Plan to offer celebrex + lidocaine patch early per MD instruction. Will CTM. Safety maintained. PLAN MOVING FORWARD: Continue VEEG Maintain SZ PCs INDIVIDUALIZED FALL PREVENTION INTERVENTIONS: Patient-specific fall risk factors per assessment: VEEG, hospital setting Assistance: SBA Supervision: Arms reach Surveillance: Bed locked in low position, call ignacio within reach, purposeful hourly rounding, clutter free environment, bed/chair alarm on Patient-specific fall prevention interventions for sensory deficits provided: Yes CPG GOAL OUTCOME EVALUATION: Continue care plan as documented. * Roberta Whitmore RN - 11/26/2021 6:31 AM EDT EVENT NOTE: TIME OF EVENT: 2349 TYPE: Push button AURA: none ESTIMATED DURATION: less than 60 seconds SEIZURE PROVOCATION: awakening from nap EXAM: Observed BUE shaking, and she reported BLE shaking as well prior to RN arrival. Pt had some hesitancy when answering questions, but was answering appropriately. clonic activity of the entire body, hands bilaterally and legs bilaterally no other phenomenon REMEMBER CODE WORD: Not Performed INTERVENTIONS: Notified MD, reassurance provided Side rails padded, O2 set up, Masimo on, suction set up, patient visable on camera, call ignacio within reach, push button on door side of room. * Cipriano Tejeda MD - 11/25/2021 9:44 PM EDT [facility] EPILEPSY MONITORING UNIT- PROGRESS NOTE Lennox Garber: 36 y.o.: [id number]: Referring Provider: Comfort Urban, MAIL HANDLER ASSISTANT: 11/26/21 CC: Seizures/Tremors ID: Lennox Garber is a 36 y.o. y/o right-handed female with hx seizures since 2014, new onset edema-pitting w/50 lb weight gain over 6 months, concerning cystic lesion on ovary, worsening asthma/SOB, anxiety, phhx of chronic back pain, GERD, HTN, HLD, fibromyalgia and migraines who is admitted to the video EEG monitoring unit for characterization of events (focal vs generalized), as well as evaluation as to why she has decompensated so much in the past 6 months (espeically concerning is the edema and cystic lesion on her ovary), corresponding with increased seizure frequency. ?? Interval History: - Per nursing notes, patient had one push button event about 2300. Pt stated was hot, tingling, andfelt like head was in a vice. No clinical seizure activity witnessed, pt slept after - Overnight had one more event, which appears to be non-epileptic (see VEEG report for details) -Patient having her baseline facial tremors at time of automated alarm. Remained alert and oriented. - Pt reports that tremors have occurred more frequently since taking VPA. No known family h/o tremor. Physical Exam General appearance: No acute distress; conversant Vitals: Temp: [36.1 ??C (97 ??F)-36.5 ??C (97.7 ??F)] Heart Rate: -- Resp: [16-20] BP: (95-124)/(51-70) SpO2: [93 %-96 %] Heart Rate from SpO2: [56 bpm-69 bpm] Lungs: Normal WOB on RA Neuro: Alert and oriented, answering questions appropriately Moving all extremities spontaneously Tremor noted throughout Assessment Lennox Garber is a 36 y.o. y/o right-handed female with hx seizures since 2014, new onset edema-pitting w/50 lb weight gain over 6 months, concerning cystic lesion on ovary, worsening asthma/SOB, anxiety, phhx of chronic back pain, GERD, HTN, HLD,Fibromyalgia and migraines who presents for videoEEG monitoring for further evaluation and??characterization of events.?? In order to precipitate seizure activity antiepileptic medication will be withheld. This places thepatient at a high risk for seizures and status epilepticus, warranting inpatient admission for close monitoring and safety precautions. ?? Overnight had one more episode, which appeared to be non-epileptic- no abnormal EEG correlate but could be suspicious for frontal lobe seizure, will attempt to capture more events. Plan is to continue to hold Depakote and continue video-EEG monitoring. Plan? Admit to neurology ? 24 hour Video EEG monitoring ?? Seizure precautions ?? If no seizure by HD2: Photic, HV, Sleep Deprive ?? Basic labs on admission, including AED levels ?? PT/OT ? Prophylaxis:? Tylenol for for pain ?? SCDs, Lovenox, ambulate frequently to prevent DVTs. ? ASM Plan ? ASMs ?? Continue Onfi 10mg AM/ 20mg PM Keppra 500mg BID ?? Discontinue Depakote 250 mg AM/ 500mg PM ? Other Meds: ?? Continue remaining home medications ? Tentative rescue plan ? Acute repetitive seizures ?? 5mg IV Diazepam after 1 GTC or 3 focal with impaired awareness (complex partial) seizures in 24 hours. ?? If No IV access: give 5mg intranasal midazolam as alternative ? If progression to status Epilepticus: ?? Any GTC longer than 5 minutes or focal with impaired awareness seizure longer than 10 minutes ?? First line: 5-10 mg IV Diazepam ?? Second line ?? Vimpat 400mg IV --> EKG post load ? Nursing seizure exam plan: ? Standard Exam: ?? Assess A&O status, give code word for later recall, follow simple/complex commands, assess language, strength/motor function. ? Abdominal distention, pain, SOB and pitting edema - Consulted OBGYN onc who felt low likelyhood for malignancy suggested TVU and gen holistic specialist consult instead, GYROSCOPIC INSTRUMENT TESTER consult placed --> awaiting reccs - Chest XR obtained 11/23 --> no evidence of PNA or pulmonary edema - Lab workup including (catecholamines, thyroid, urine culture)--> pending results. CBC/BMP unremarkable ?? Dispo Planning ? Pending Course ?? CODE STATUS: Full Code Total time greater than 35 minutes which was spent on pre-charting, reviewing results of diagnosticstudies, as well as patient education and counseling. CIPRIANO TEJEDA MD, PhD Professor of Neurology [facility] Department of Neurology Personal Pager #[phone] * Mae Vasquez RN - 11/25/2021 6:00 PM EDT OUTCOME EVALUATION NOTE: OUTCOME SUMMARY: Pt AOx4, pleasant and cooperative. VSS. Continues VEEG monitoring. Seizure PCs maintained, side rails padded. Pt c/o mild BRANNON, declined any intervention. Pt has tremor. No aura reported, no seizure activity witnessed this shift. Depakote on hold at this time. PLAN MOVING FORWARD: Continuous VEEG Maintain safety + seizure precautions INDIVIDUALIZED FALL PREVENTION INTERVENTIONS: Patient-specific fall risk factors per assessment: hospital setting, VEEG, seizure PCs Assistance: SBA Supervision: Arms reach Surveillance: Bed locked in low position, call ignacio within reach, purposeful hourly rounding, clutter free environment, bed/chair alarm on Patient-specific fall prevention interventions for sensory deficits provided: N/A CPG GOAL OUTCOME EVALUATION: Continue care plan as documented. * Handy Meredith RN - 11/25/2021 3:23 AM EDT Took over care at 0300. No overt seizures noted at this time. * Martha Gibbs RN - 11/25/2021 2:23 AM EDT OUTCOME EVALUATION NOTE: OUTCOME SUMMARY: A/O x4. VSS on RA. Pain well controlled with scheduled and prn medications per MAY. Automated alarmactivated a few times throughout shift, patient denied symptoms and no seizure symptoms observed byrafat CHONG. Voiding adequately overnight, 24hour urine collection maintained, ends at 0900. Resting/sleeping between care. Seizure precautions maintained. PLAN MOVING FORWARD: Pain management 24 hour urine collection VEEG Dc planning INDIVIDUALIZED FALL PREVENTION INTERVENTIONS: Patient-specific fall risk factors per assessment: [current deficits]: Medications, lines/devices, hospital setting, recent seizures, gen weakness Assistance [level of assistance required for transfers and ambulation]: SBA Supervision [direct monitoring required during toileting and ADLs]: Eyes on, arms reach with ADLS Surveillance [continuous indirect monitoring]: Masimo, bed alarm VEEG Patient-specific fall prevention interventions for sensory deficits provided, if applicable: [X] No CARE PLAN GOAL OUTCOME EVALUATION: * Sheron Sanchez RN - 11/24/2021 2:10 PM EDT 1400: Patient back to bed and reconnected to VEEG. Pt states she had no abnormal events while at her appointment, states she feels tired. * Sheron Sanchez RN - 11/24/2021 12:30 PM EDT 1230: Patient off Video/Off unit for trans vaginal ultrasound. OK to transport per Janice Portillo. * Sheron Sanchez RN - 11/24/2021 10:44 AM EDT EVENT NOTE: TIME OF EVENT: 1031 TYPE:Push button AURA: None ESTIMATED DURATION: 30 seconds SEIZURE PROVOCATION: Awoke from sleep EXAM: Alert/oriented, following commands. Appears slightly disoriented but states she feels okay clonic activity of the: BUE REMEMBER CODE WORD: Not Performed INTERVENTIONS: Notified MD, reassurance provided Side rails padded, vest in room/visable, O2 set up, Masimo on, suction set up, patient visable on camera, call ignacio within reach, push button on door side of room. * Sheron Sanchez RN - 11/24/2021 10:41 AM EDT EVENT NOTE: TIME OF EVENT: Several automated alarms between 1607-5207 TYPE: Automated alarm AURA: none ESTIMATED DURATION: none - Patient having her baseline facial tremors at time of automated alarm SEIZURE PROVOCATION: none EXAM: Alert, oriented, following commands clonic activity of the: none REMEMBER CODE WORD: Not Performed INTERVENTIONS: Reassurance provided Side rails padded, vest in room/visable, O2 set up, Masimo on, suction set up, patient visable on camera, call ignacio within reach, push button on door side of room. * Lennox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 discharges or abnormal movement patterns. Patient Events or Seizures: -No seizures Non Epileptic Event - 11/23/21 at 19:39pm - ???Cold Chest?? CLINICAL: The patient felt a wave of coldness move across her chest and down her body. EEG: No abnormal EEG correlate Non-Epileptic Event - 11/24/21 at 4:19am - R arm flex, L arm extend BUE spell out of sleep with no clear electrgraphic correlate CLINICAL: While the patient is sleeping on her back she remains supine, bends her right elbow and brings her R hand to her mouth and begins a movement that looks as if she is sucking her thumb. She then extends her left arm (tonic) which is at her side. Then she extends her right arm one minute later the arms relax and she appears to be back asleep. EEG: No abnormal EEG correlate Non-Epileptic Event - 11/24/21 at 10:32 AM Patients scratches left part of her neck, and there is shaking on Lt>Rt arm, patient is following commands and points to the ceiling but looks slikely disoriented. Says she is feeling dizzy. Patient reports this is one of the events that is her smaller seizures at home. There was no ictal EEG Correlate with this event. Non-Epileptic Event - 11/25/21 at 23:50 Hrs Patients wakes from sleep scratches right part of her neck, and there is shaking on Lt>Rt arm, patient goes for the push button there is waxing and waning quality to the shaking. Says she is feeling dizzy and was not able to answer some of nurses questions. She reported she felt confused at thattime. Afterwords she reports that she felt tired Patient reports this is one of the seizure that happen at home There was no ictal EEG Correlate with this event. Provocative Maneuvers: Hyperventilation and photic stimulation were not performed. EKG: Single-lead EKG was regular. Technical Limitations: None INTERPRETATION: This 24 hour recording of continuous video EEG was mildly abnormal due to the presence of excessivebeta activity. CLINICAL CORRELATION: This EEG is within normal limits for state and age. Excessive beta activity is non-specific but maybe seen in the setting of benzodiazepine usage (I.e. clobazam). No epileptiform activity was recorded. Antonio Blue MD 11/28/2021 Attending Attestation I reviewed the EEG with the resident/fellow, made appropriate changes to the EEG report as needed, and I agree with the final interpretation as written. Ming Apodaca MD [facility] Department of Neurology * Ming Apodaca MD - 11/27/2021 7:56 AM EDT [facility] Department of Neurology Inpatient Continuous Video EEG Report Name of the Patient: Lennox Garber Date of : 1985 Date of Service: 11/27/21 Resident/Fellow: Antonio Blue MD Attending: Dr Apodaca Initial date and time cEEG monitoring started: 11/23/21 at 7:37pm Daily report EEG start time: 11/26/21 at 5 am Daily report EEG end time: 11/27/21 at 5am Total recording time: 24 hours Indication for cvEEG: Seizure (Titrate medications with close monitoring) BRIEF HISTORY 38 RHF pmh seizures since 2014 admitted to the video EEG monitoring unit for close monitoring whilechanging ASM regimen i/s/o 6 mos of new onset edema- pitting w/50 lb weight gain over 6 months also with reported increased seizure frequency. Regarding her epilepsy workup, prior MRI imaging was WNL and there are no listed EEG reports prior to the three largely unremarkable routine EEGs in 2019 in which one questionable F4 > Fp2 ?spikewave? during generalized theta of drowsiness was the only listed abnormal finding (Dr. Light). Lennox's July 2021, 8-day [facility] vEEG admission was unremarkabe, although headaches were the only event captured. Her typical AMS-->convulsion spells were not captured. Prior EEG(s): May 2018: rEEG 30min Normal awake/asleep routine EEG (Thadani) August 2018: rEEG 30min Normal awake routine EEG (Shabazz) September 2018 - rEEG 30min There was one single right frontal F4 spike with a field to Fp2 which occurred during a short run of generalized theta due to drowsiness. Dr. Kelly ([facility]) July 2021: vEEG 8 days [facility] Normal 8 days of video EEG 2 headache events: No EEG correlate - likely holding 2/2 topamax/depakote. Typical spacey/dumb feeling --> convulsion was not captured K-complexes conspicuous but did not evolve No epileptiform discharges Pertinent medications: Onfi 10mg qam, 20mg qpm Depakote 250mg qam 500mg qpm Keppra 500mg BID Inpatient Medications: Day 1 11/23/21: Home meds continued: Onfi 10mg qam, 20mg qpm, Depakote 250mg qam 500mg qpm, Keppra 500mg BID Day 2 11/24/21: Home meds continued: Onfi 10mg qam, 20mg qpm, Keppra 500mg BID Day 3 11/25/21: Home meds continued: Onfi 10mg qam, 20mg qpm, Keppra 500mg BID Day 4 11/26/21: Home meds continued: Onfi 10mg qam, 20mg qpm, Keppra 500mg BID METHODS A 21 channel digitized continuous electroencephalogram with video was performed by the [facility]. Following explanation of the procedure, the 10/20 international system of electrode placement was used to determine electrode placement and disposable MRI c onditional electrodes were applied using the paste/collodion method of application. Bipolar and referential electrode montages were recorded. In addition to EEG, the patient was monitored for EKG. Video was recorded during the session. ELECTROENCEPHALOGRAPHER'S REPORT Background: The background was continuous and spontaneously reactive composed of normal voltage, 10 to 60 ??V, nicely organized anterior to posterior gradient with frontally predominant beta and posterior alpha frequencies. There was a 9 Hz posterior dominant rhythm that attenuated with eye opening. Excessive beta activity (20-50 uV, 15-20 Hz) is seen diffusely and most prominent over the vertex regions. Focal Asymmetries: There were no persistent focal asymmetries. Sleep: Sleep was characterized by decreased myogenic artifact and increased slowing. There were symmetric N2 sleep transients present including sleep spindles and K complexes. Periods of REM were also recorded. Interictal Activity: There were no epileptiform discharges or abnormal movement patterns. Patient Events or Seizures: Non Epileptic Event - 11/23/21 at 19:39pm - ???Cold Chest?? CLINICAL: The patient felt a wave of coldness move across her chest and down her body. EEG: No abnormal EEG correlate Non-Epileptic Event - 11/24/21 at 4:19am - R arm flex, L arm extend BUE spell out of sleep with no clear electrgraphic correlate CLINICAL: While the patient is sleeping on her back she remains supine, bends her right elbow and brings her R hand to her mouth and begins a movement that looks as if she is sucking her thumb. She then extends her left arm (tonic) which is at her side. Then she extends her right arm one minute later the arms relax and she appears to be back asleep. EEG: No abnormal EEG correlate Non-Epileptic Event - 11/24/21 at 10:32 AM Patients scratches left part of her neck, and there is shaking on Lt>Rt arm, patient is following commands and points to the ceiling but looks slikely disoriented. Says she is feeling dizzy. Patient reports this is one of the events that is her smaller seizures at home. There was no ictal EEG Correlate with this event. Non-Epileptic Event - 11/25/21 at 23:50 Hrs Patients wakes from sleep scratches right part of her neck, and there is shaking on Lt>Rt arm, patient goes for the push button there is waxing and waning quality to the shaking. Says she is feeling dizzy and was not able to answer some of nurses questions. She reported she felt confused at thattime. Afterwords she reports that she felt tired Patient reports this is one of the seizure that happen at home There was no ictal EEG Correlate with this event. Provocative Maneuvers: Hyperventilation and photic stimulation were not performed. EKG: Single-lead EKG was regular. Technical Limitations: None INTERPRETATION: This 24 hour recording of continuous video EEG was mildly abnormal due to the presence of excessivebeta activity. CLINICAL CORRELATION: This EEG is within normal limits for state and age. Excessive beta activity is non-specific but maybe seen in the setting of benzodiazepine usage (I.e. clobazam). No epileptiform activity was recorded. Antonio Blue MD 11/27/2021 Attending Attestation I reviewed the EEG with the resident/fellow, made appropriate changes to the EEG report as needed, and I agree with the final interpretation as written. Ming Apodaca MD [facility] Department of Neurology * Dwight Kellogg MD - 11/26/2021 12:24 PM EDT [facility] Department of Neurology Inpatient Continuous Video EEG Report Name of the Patient: Lennox Garber Date of : 1985 Date of Service: 11/26/21 Resident/Fellow: Dwight Kellogg MD Attending: Dr Tejeda Initial date and time cEEG monitoring started: 11/23/21 at 7:37pm Daily report EEG start time: 11/25/21 at 5 am Daily report EEG end time: 11/26/21 at 5am Total recording time: 24 hours Indication for cvEEG: Seizure (Titrate medications with close monitoring) BRIEF HISTORY 38 RHF pmh seizures since 2014 admitted to the video EEG monitoring unit for close monitoring whilechanging ASM regimen i/s/o 6 mos of new onset edema- pitting w/50 lb weight gain over 6 months also with reported increased seizure frequency. Regarding her epilepsy workup, prior MRI imaging was WNL and there are no listed EEG reports prior to the three largely unremarkable routine EEGs in 2019 in which one questionable F4 > Fp2 ?spikewave? during generalized theta of drowsiness was the only listed abnormal finding (Dr. Light). Lennox's July 2021, 8-day [facility] vEEG admission was unremarkabe, although headaches were the only event captured. Her typical AMS-->convulsion spells were not captured. Prior EEG(s): May 2018: rEEG 30min Normal awake/asleep routine EEG (Thadani) August 2018: rEEG 30min Normal awake routine EEG (Shabazz) September 2018 - rEEG 30min There was one single right frontal F4 spike with a field to Fp2 which occurred during a short run of generalized theta due to drowsiness. Dr. Kelly ([facility]) July 2021: vEEG 8 days [facility] Normal 8 days of video EEG 2 headache events: No EEG correlate - likely holding 2/2 topamax/depakote. Typical spacey/dumb feeling --> convulsion was not captured K-complexes conspicuous but did not evolve No epileptiform discharges Pertinent medications: Onfi 10mg qam, 20mg qpm Depakote 250mg qam 500mg qpm Keppra 500mg BID Inpatient Medications: Day 1 11/23/21: Home meds continued: Onfi 10mg qam, 20mg qpm, Depakote 250mg qam 500mg qpm, Keppra 500mg BID Day 2 11/24/21: Home meds continued: Onfi 10mg qam, 20mg qpm, Keppra 500mg BID Day 3 11/25/21: Home meds continued: Onfi 10mg qam, 20mg qpm, Keppra 500mg BID Day 4 11/26/21: Home meds continued: Onfi 10mg qam, 20mg qpm, Keppra 500mg BID METHODS A 21 channel digitized continuous electroencephalogram with video was performed by the [facility]. Following explanation of the procedure, the 10/20 international system of electrode placement was used to determine electrode placement and disposable MRI c onditional electrodes were applied using the paste/collodion method of application. Bipolar and referential electrode montages were recorded. In addition to EEG, the patient was monitored for EKG. Video was recorded during the session. ELECTROENCEPHALOGRAPHER'S REPORT Background: The background was continuous and spontaneously reactive composed of normal voltage, 10 to 60 ??V, nicely organized anterior to posterior gradient with frontally predominant beta and posterior alpha frequencies. There was a 9 Hz posterior dominant rhythm that attenuated with eye opening. Focal Asymmetries: There were no persistent focal asymmetries. Sleep: Sleep was characterized by decreased myogenic artifact and increased slowing. There were symmetric N2 sleep transients present including sleep spindles and K complexes. Periods of REM were also recorded. Interictal Activity: There were no epileptiform discharges or abnormal movement patterns. Patient Events or Seizures: Non Epileptic Event - 9/22/22 at 19:39pm - ???Cold Chest?? CLINICAL: The patient felt a wave of coldness move across her chest and down her body. EEG: No abnormal EEG correlate Non-Epileptic Event - 11/24/21 at 4:19am - R arm flex, L arm extend BUE spell out of sleep with no clear electrgraphic correlate CLINICAL: While the patient is sleeping on her back she remains supine, bends her right elbow and brings her R hand to her mouth and begins a movement that looks as if she is sucking her thumb. She then extends her left arm (tonic) which is at her side. Then she extends her right arm one minute later the arms relax and she appears to be back asleep. EEG: No abnormal EEG correlate Non-Epileptic Event - 11/24/21 at 10:32 AM Patients scratches left part of her neck, and there is shaking on Lt>Rt arm, patient is following commands and points to the ceiling but looks slikely disoriented. Says she is feeling dizzy. Patient reports this is one of the events that is her smaller seizures at home. There was no ictal EEG Correlate with this event. Non-Epileptic Event - 11/25/21 at 23:50 Hrs Patients wakes from sleep scratches right part of her neck, and there is shaking on Lt>Rt arm, patient goes for the push button there is waxing and waning quality to the shaking. Says she is feeling dizzy and was not able to answer some of nurses questions. She reported she felt confused at thattime. Afterwords she reports that she felt tired Patient reports this is one of the seizure that happen at home There was no ictal EEG Correlate with this event. Provocative Maneuvers: Hyperventilation and photic stimulation were not performed. EKG: Single-lead EKG was regular. Technical Limitations: None INTERPRETATION: This 24 hour recording of continuous video EEG was normal during the awake, drowsy and asleep state(s). CLINICAL CORRELATION: This EEG is within normal limits for state and age. One of patients event captured in last 24 hoursas above was non epileptic in nature Dwight Kellogg MD 11/26/2021 Associated attestation - Cipriano Tejeda MD - 11/26/2021 9:43 PM EDT EPILEPSY ATTENDING ADDENDUM - I reviewed the EEG with the PIGMENT PRESSER/Epilepsy fellow, and I agree with the interpretation as documented. Cipriano Tejeda MD, PhD Professor of Neurology [facility] * Dwight Kellogg MD - 11/25/2021 4:45 PM EDT [facility] Department of Neurology Inpatient Continuous Video EEG Report Name of the Patient: Lennox Garber Date of : 1985 Date of Service: 11/25/21 Resident/Fellow: Dwight Kellogg MD Attending: Dr Tejeda Initial date and time cEEG monitoring started: 11/23/21 at 7:37pm Daily report EEG start time: 11/24/21 at 5 am Daily report EEG end time: 11/25/21 at 5am Total recording time: 24 hours Indication for cvEEG: Seizure (Titrate medications with close monitoring) BRIEF HISTORY 38 RHF pmh seizures since 2014 admitted to the video EEG monitoring unit for close monitoring whilechanging ASM regimen i/s/o 6 mos of new onset edema- pitting w/50 lb weight gain over 6 months also with reported increased seizure frequency. Regarding her epilepsy workup, prior MRI imaging was WNL and there are no listed EEG reports prior to the three largely unremarkable routine EEGs in 2019 in which one questionable F4 > Fp2 ?spikewave? during generalized theta of drowsiness was the only listed abnormal finding (Dr. Light). Lennox's July 2021, 8-day [facility] vEEG admission was unremarkabe, although headaches were the only event captured. Her typical AMS-->convulsion spells were not captured. Prior EEG(s): May 2018: rEEG 30min Normal awake/asleep routine EEG (Thadani) August 2018: rEEG 30min Normal awake routine EEG (Shabazz) September 2018 - rEEG 30min There was one single right frontal F4 spike with a field to Fp2 which occurred during a short run of generalized theta due to drowsiness. Dr. Kelly ([facility]) July 2021: vEEG 8 days [facility] Normal 8 days of video EEG 2 headache events: No EEG correlate - likely holding 2/2 topamax/depakote. Typical spacey/dumb feeling --> convulsion was not captured K-complexes conspicuous but did not evolve No epileptiform discharges Pertinent medications: Onfi 10mg qam, 20mg qpm Depakote 250mg qam 500mg qpm Keppra 500mg BID Inpatient Medications: Day 1 11/23/21: Home meds continued: Onfi 10mg qam, 20mg qpm, Depakote 250mg qam 500mg qpm, Keppra 500mg BID Day 2 11/24/21: Home meds continued: Onfi 10mg qam, 20mg qpm, Keppra 500mg BID Day 3 11/25/21: Home meds continued: Onfi 10mg qam, 20mg qpm, Keppra 500mg BID METHODS A 21 channel digitized continuous electroencephalogram with video was performed by the [facility]. Following explanation of the procedure, the 10/20 international system of electrode placement was used to determine electrode placement and disposable MRI c onditional electrodes were applied using the paste/collodion method of application. Bipolar and referential electrode montages were recorded. In addition to EEG, the patient was monitored for EKG. Video was recorded during the session. ELECTROENCEPHALOGRAPHER'S REPORT Background: The background was continuous and spontaneously reactive composed of normal voltage, 10 to 60 ??V, nicely organized anterior to posterior gradient with frontally predominant beta and posterior alpha frequencies. There was a 9 Hz posterior dominant rhythm that attenuated with eye opening. Focal Asymmetries: There were no persistent focal asymmetries. Sleep: Sleep was characterized by decreased myogenic artifact and increased slowing. There were symmetric N2 sleep transients present including sleep spindles and K complexes. Periods of REM were also recorded. Interictal Activity: There were no epileptiform discharges or abnormal movement patterns. Patient Events or Seizures: Non Epileptic Event - 11/23/21 at 19:39pm - ???Cold Chest?? CLINICAL: The patient felt a wave of coldness move across her chest and down her body. EEG: No abnormal EEG correlate Non-Epileptic Event - 11/24/21 at 4:19am - R arm flex, L arm extend BUE spell out of sleep with no clear electrgraphic correlate CLINICAL: While the patient is sleeping on her back she remains supine, bends her right elbow and brings her R hand to her mouth and begins a movement that looks as if she is sucking her thumb. She then extends her left arm (tonic) which is at her side. Then she extends her right arm one minute later the arms relax and she appears to be back asleep. EEG: No abnormal EEG correlate Non-Epileptic Event - 11/24/21 at 10:32 AM Patients scratches left part of her neck, and there is shaking on Lt>Rt arm, patient is following commands and points to the ceiling but looks slikely disoriented. Says she is feeling dizzy. Patient reports this is one of the events that is her smaller seizures at home. There was no ictal EEG Correlate with this event. Provocative Maneuvers: Hyperventilation and photic stimulation were not performed. EKG: Single-lead EKG was regular. Technical Limitations: None INTERPRETATION: This 24 hr recording of continuous video EEG was normal during the awake, drowsy and asleep state(s). CLINICAL CORRELATION: This EEG is within normal limits for state and age. One of patients event captured in last 24 hourswas non epileptic in nature Dwight Kellogg MD 11/25/2021 Associated attestation - Cipriano Tejeda MD - 11/26/2021 9:42 PM EDT EPILEPSY ATTENDING ADDENDUM - I reviewed the EEG with the PIGMENT PRESSER/Epilepsy fellow, and I agree with the interpretation as documented. Cipriano Tejeda MD, PhD Professor of Neurology [facility] Clinical [facility] Laboratory [facility] * Mahesh Orozco DO - 11/24/2021 9:00 AM EDT [facility] Department of Neurology Inpatient Continuous Video EEG Report Name of the Patient: Lennox Garber Date of : 1985 Date of Service: 11/25/21 Resident/Fellow: Mahesh Orozco DO Attending: Gabriela Initial date and time cEEG monitoring started: 11/23/21 at 7:37pm Daily report EEG start time: 11/23/21 at 7:37pm Daily report EEG end time: 11/24/21 at 5am Total recording time: 9hrs 30min Indication for cvEEG: Seizure (Titrate medications with close monitoring) BRIEF HISTORY 38 RHF pmh seizures since 2014 admitted to the video EEG monitoring unit for close monitoring whilechanging ASM regimen i/s/o 6 mos of new onset edema- pitting w/50 lb weight gain over 6 months also with reported increased seizure frequency. Regarding her epilepsy workup, prior MRI imaging was WNL and there are no listed EEG reports prior to the three largely unremarkable routine EEGs in 2019 in which one questionable F4 > Fp2 ?spikewave? during generalized theta of drowsiness was the only listed abnormal finding (Dr. Kelly [facility]). Lennox's July 2021, 8-day [facility] vEEG admission was unremarkabe, although headaches were the only event captured. Her typical AMS-->convulsion spells were not captured. Prior EEG(s): May 2018: rEEG 30min Normal awake/asleep routine EEG (Thadani) August 2018: rEEG 30min Normal awake routine EEG (Shabazz) September 2018 - rEEG 30min There was one single right frontal F4 spike with a field to Fp2 which occurred during a short run of generalized theta due to drowsiness. Dr. Kelly ([facility]) July 2021: vEEG 8 days [facility] Normal 8 days of video EEG 2 headache events: No EEG correlate - likely holding 2/2 topamax/depakote. Typical spacey/dumb feeling --> convulsion was not captured K-complexes conspicuous but did not evolve (however upon further review appeared to be generalized epileptiform discharges rather than K complexes) Pertinent medications: Onfi 10mg qam, 20mg qpm Depakote 250mg qam 500mg qpm Keppra 500mg BID Inpatient Medications: Day 1 11/23/21: Home meds continued: Onfi 10mg qam, 20mg qpm, Depakote 250mg qam 500mg qpm, Keppra 500mg BID METHODS A 21 channel digitized continuous electroencephalogram with video was performed by the [facility]. Following explanation of the procedure, the 10/20 international system of electrode placement was used to determine electrode placement and disposable MRI c onditional electrodes were applied using the paste/collodion method of application. Bipolar and referential electrode montages were recorded. In addition to EEG, the patient was monitored for EKG. Video was recorded during the session. ELECTROENCEPHALOGRAPHER'S REPORT Background: The background was continuous and spontaneously reactive composed of normal voltage, 10 to 60 ??V, nicely organized anterior to posterior gradient with frontally predominant beta and posterior alpha frequencies. There was a 8-9 Hz posterior dominant rhythm that attenuated with eye opening. Focal Asymmetries: There were no persistent focal asymmetries. Sleep: Sleep was characterized by decreased myogenic artifact and increased slowing. There were symmetric N2 sleep transients present including sleep spindles and K complexes. Periods of REM were also recorded. Interictal Activity: There were no epileptiform discharges or abnormal movement patterns. Patient Events or Seizures: Event - 11/23/21 at 19:39pm - ???Cold Chest?? CLINICAL: The patient felt a wave of coldness move across her chest and down her body. EEG: No abnormal EEG correlate Event - 11/24/21 at 4:19am - R arm flex, L arm extend BUE spell out of sleep with no clear electrgraphic correlate CLINICAL: While the patient is sleeping on her back she remains supine, bends her right elbow and brings her R hand to her mouth and begins a movement that looks as if she is sucking her thumb. She then extends her left arm (tonic) which is at her side. Then she extends her right arm one minute later the arms relax and she appears to be back asleep. EEG: No abnormal EEG correlate Provocative Maneuvers: Hyperventilation and photic stimulation were not performed. EKG: Single-lead EKG was regular. Technical Limitations: None INTERPRETATION: This 9hr 30min recording of continuous video EEG was normal during the awake, drowsy and asleep state(s). CLINICAL CORRELATION: This EEG is within normal limits for state and age. Mahesh Orozco DO 11/25/2021 Associated attestation - Hanny Ochoa MD - 11/27/2021 2:37 PM EDT Epilepsy Attending I was the attending physician supervising the fellow in the care as noted. The videoEEG was reviewed in detail by me together with the fellow. I agree with the report. Hanny Ochoa MD [facility] Neurology * Martin Javier - 11/23/2021 7:49 PM EDTAssociated Order(s): EEG CONTINUOUS MONITORING INPATIENT [facility] Department of Neurology Continuous Video EEG (EMU) Report Name of the Patient: Lennox Garber Date of : 1985 Date of Service: 11/23/2021 Referring physician: Lennox Acharya APRN Reading Fellow: Donna Attending: Initial time and date cEEG monitoring started: 19:37:16 on 11/23/2021 Daily report EEG start time: Daily report EEG end time: Total recording time: BRIEF HISTORY: Lennox Garber is a 36 y.o. female with PMHx of seizures who presents for EMU admission HOME ANTISEIZURE MEDICATIONS: Antiseizure medications during monitoring: Day 1 (11/23/2021): METHODS: A 21 channel digitized continuous electroencephalogram with video was set up and recording started at 19:37:16 on 11/23/21. Following explanation of the procedure, the 10/20 international system of electrode placement was used to determine electrode placement and disposable MRI conditional electrodes were applied using the paste/collodion method of application. In addition to EEG the patient was monitored for EKG. Video was recorded during the session. SERVICES REP'S REPORT: Performed by: Martin Javier At the onset of the recording the patient was awake and cooperative. Movement and other artifact was not significant. Comments: None documented in this encounter Miscellaneous Notes * Plan of Care - Lilian Maria RN - 11/29/2021 11:38 AM EDT Lennox Garber discharged to by private car with family member. Patient ambulated to the door. All belongings sent with patient. LUCIEN removed, skin free from pressure ulcers. Discharge instructions,medications, and follow-up appointments reviewed, education provided on 11/29/21, paper prescriptions given to patient, all questions answered. Patient instructed to call with concerns. * Care Management Discharge - Shannan Johnson RN - 11/29/2021 9:59 AM EDT CARE MANAGEMENT FINAL DISCHARGE NOTE Chart reviewed, care reviewed with primary team and at interdisciplinary rounds. Patient is medically ready for discharge to home with support of friends/family. WET CLEANER MACHINE to see for resources for CBT prior to d/c home today. Needs for Transition of Care: Plan for discharge is: Home w/o Services Outpatient Agency/Support Group Needs: *TBD pending hospital course and rehab evala. Agency Referrals & Follow-up Care: none Transportation: family or friend will provide-via private vehicle. Functional status prior to admission: Independent Home Environment: Others in the home: child(jeremie), minor. Current Living Arrangements: home/apartment/condo. Accessibility Concerns:no concerns noted at this time, pt has chronic backpain will have OT/Pt evalduring hospital stay.. Current Functional Ability: Independent DME used at home: none DME Needed at Discharge: none Patient is insured through: Primary Insurance: [place] Payor: [place] / Plan: [place] PRIMARY CARE [place] / Product Type: *No Product type* / Secondary Insurance: N/A Prescription Coverage: Yes This plan was formulated with input from patient, fsamily (please identify family/friend involved if applicable) and team. All are in agreement with plan. Shannan Johnson MSN, RN Pager #[phone] * Plan of Care - Lilian Maria RN - 11/29/2021 8:09 AM EDT OUTCOME EVALUATION NOTE: OUTCOME SUMMARY: Aox4 5/5 strength x4, Per provider Indication for cvEEG: Seizure like activity 36 RHF pmh seizures since 2014 admitted to the video EEG monitoring unit for close monitoring whilechanging ASM regimen i/s/o 6 mos of new onset edema- pitting w/50 lb weight gain over 6 months also with reported increased seizure frequency. Regarding her epilepsy workup, prior MRI imaging was WNL and there are no listed EEG reports prior to the three largely unremarkable routine EEGs in 2019 in which one questionable F4 > Fp2 ?spikewave? during generalized theta of drowsiness was the only listed abnormal finding (Dr. Kelly [facility]). Lennox's July 2021, 8-day [facility] vEEG admission was unremarkabe, although headaches were the only event captured. Her typical AMS-->convulsion spells were not captured. Prior EEG(s): May 2018: rEEG 30min Normal awake/asleep routine EEG (Thadani) August 2018: rEEG 30min Normal awake routine EEG (Shabazz) September 2018 - rEEG 30min There was one single right frontal F4 spike with a field to Fp2 which occurred during a short run of generalized theta due to drowsiness. Dr. Kelly ([facility]) July 2021: vEEG 8 days [facility] Normal 8 days of video EEG 2 headache events: No EEG correlate - likely holding 2/2 topamax/depakote. Typical spacey/dumb feeling --> convulsion was not captured K-complexes conspicuous but did not evolve No epileptiform discharges Pertinent medications: Onfi 10mg qam, 20mg qpm Depakote 250mg qam 500mg qpm Keppra 500mg BID Inpatient Medications: Day 1 11/23/21: Home meds continued: Onfi 10mg qam, 20mg qpm, Depakote 250mg qam 500mg qpm, Keppra 500mg BID Day 2 11/24/21: Stopped depakote, other Home meds continued: Onfi 10mg qam, 20mg qpm, Keppra 500mg BID Day 3 11/25/21: Home meds continued: Onfi 10mg qam, 20mg qpm, Keppra 500mg BID Day 4 11/26/21: Home meds continued: Onfi 10mg qam, 20mg qpm, Keppra 500mg BID Day 5 11/27/21: Keppra and Depakote HELD. Continued home dose of Onfi 10mg qam, 20mg qpm METHODS A 21 channel digitized continuous electroencephalogram with video was performed by the [facility]. Following explanation of the procedure, the 10/20 international system of electrode placement was used to determine electrode placement and disposable MRI c onditional electrodes were applied using the paste/collodion method of application. Bipolar and referential electrode montages were recorded. In addition to EEG, the patient was monitored for EKG. Video was recorded during the session. Background: The background was continuous and spontaneously reactive composed of normal voltage, 10 to 60 ??V, nicely organized anterior to posterior gradient with frontally predominant beta and posterior alpha frequencies. There was a 9 Hz posterior dominant rhythm that attenuated with eye opening. Excessive beta activity (20-50 uV, 15-20 Hz) is seen diffusely and most prominent over the vertex regions. Focal Asymmetries: There were no persistent focal asymmetries. Sleep: Sleep was characterized by decreased myogenic artifact and increased slowing. There were symmetric N2 sleep transients present including sleep spindles and K complexes. Periods of REM were also recorded. Interictal Activity: There were no epileptiform discharges or abnormal movement patterns. Patient Events or Seizures: -No seizures Non Epileptic Event - 11/23/21 at 19:39pm - ???Cold Chest?? CLINICAL: The patient felt a wave of coldness move across her chest and down her body. EEG: No abnormal EEG correlate Non-Epileptic Event - 11/24/21 at 4:19am - R arm flex, L arm extend BUE spell out of sleep with no clear electrgraphic correlate CLINICAL: While the patient is sleeping on her back she remains supine, bends her right elbow and brings her R hand to her mouth and begins a movement that looks as if she is sucking her thumb. She then extends her left arm (tonic) which is at her side. Then she extends her right arm one minute later the arms relax and she appears to be back asleep. EEG: No abnormal EEG correlate Non-Epileptic Event - 11/24/21 at 10:32 AM Patients scratches left part of her neck, and there is shaking on Lt>Rt arm, patient is following commands and points to the ceiling but looks slikely disoriented. Says she is feeling dizzy. Patient reports this is one of the events that is her smaller seizures at home. There was no ictal EEG Correlate with this event. Non-Epileptic Event - 11/25/21 at 23:50 Hrs Patients wakes from sleep scratches right part of her neck, and there is shaking on Lt>Rt arm, patient goes for the push button there is waxing and waning quality to the shaking. Says she is feeling dizzy and was not able to answer some of nurses questions. She reported she felt confused at thattime. Afterwords she reports that she felt tired Patient reports this is one of the seizure that happen at home There was no ictal EEG Correlate with this event. PLAN MOVING FORWARD: VEEG INDIVIDUALIZED FALL PREVENTION INTERVENTIONS: Patient-specific fall risk factors per assessment:VEEG Assistance: SBA Supervision: Arms reach, Surveillance: Bed locked in low position, call ignacio within reach, purposeful hourly rounding, clutter free environment, bed/chair alarm on, Patient-specific fall prevention interventions for sensory deficits provided: Yes bed alarm CPG GOAL OUTCOME EVALUATION: Continue care plan as documented. * Plan of Care - Moni Watts RN - 11/29/2021 5:00 AM EDT OUTCOME EVALUATION NOTE: OUTCOME SUMMARY: A&Ox4, moving all extremities with bilateral numbness/tingling in fingertips (patients baseline). Tremors noted. Strengths 5/5. Generalized edema, bilateral lower extremity. VEEG continued, seizure precautions maintained, NO seizure activity noted overnight. Seizure push button in reach, call ignacio in reach, bed alarm on, purposeful hourly rounding, safety maintained. PLAN MOVING FORWARD: Q6h while awake VS VEEG Seizure precautions continued Discharge planning, possibly 11/30 INDIVIDUALIZED FALL PREVENTION INTERVENTIONS: Patient-specific fall risk factors per assessment: hospital environment, lines, wire and devices, VEEG, seizures Assistance: SBA Supervision: Eyes on, arms reach Surveillance: Suction at bedside, bed locked in low position, 4 padded side rails, call ignacio withinreach, clutter free environment, bed alarm on, continuous pulse oximetry in use, continuous VEEG, seizure push button operational CPG GOAL OUTCOME EVALUATION: Continue care plan as documented * Care Management - Shannan Johnson RN - 11/27/2021 3:09 PM EDT OFFICE OF CARE MANAGEMENT PROGRESS NOTE LOS: Hospital Day 4 days Chart reviewed, care reviewed with primary team and at interdisciplinary rounds. Patient continues to meet inpatient level of care related to: VEEG for increased seizure like activity and CUSTOM SKI MAKER complications. Decision Maker: Self Functional status prior to admission: Independent Home Environment: Others in the home: child(jeremie), minor. Current Living Arrangements: home/apartment/condo. Accessibility Concerns: no concerns noted at this time, pt has chronic backpain will have OT/Pt eval during hospital stay.. Current Functional Ability: Independent DME used at home: none DME Needed at Discharge: TBD Patient is insured through: Primary Insurance: [place] Pay[place] / Plan[place] PRIMARY [place] / Product Type: *No Product type* / Secondary Insurance: N/A Last Physical Therapy Recommendation: with Last Occupational Therapy Recommendation: with Plan for discharge is: Pending Hospital Course and PT/OT Recommendations Outpatient Agency/Support Group Needs: *TBD pending hospital course and rehab evala. Agency Referrals: Not Applicable Transportation: family or friend will provide Barriers to discharge: Discharge planning, Basic needs Psych: Adjustment to diagnosis/illness Plan going forward: TBD pending hospital course and rehab evals. Pt may need VNA at home after VEEGstay is complete r/t decreased mobility. Care Management will continue to follow and assist with discharge planning and coordination of care as indicated. Anticipated Date of Discharge: 11/30/2021 Shannan MANDUJANO, RN Pager #[phone] * Plan of Care - Sheron Sanchez RN - 11/24/2021 6:16 PM EDT OUTCOME EVALUATION NOTE: OUTCOME SUMMARY: Pt alert, oriented with VSS on RA. Automated alarm activated several times throughout the day, pt denied symptoms and no observable seizure symptoms noted by this RN. Has facial tremors at baseline, which may be contributing to frequent automated alarms. Depakote held per Epilepsy team. Seen by GYROSCOPIC INSTRUMENT TESTER consult, transvaginal ultrasound completed. Reassuring for a simple, benign cyst. 24 hour urine collection began at 0900. UA sent and pending. Ice pack provided for headache. Pt resting with room darkened at time of this note. PLAN MOVING FORWARD: Continue medical work up of admitting symptoms Continuous VEEG Dispo planning INDIVIDUALIZED FALL PREVENTION INTERVENTIONS: Patient-specific fall risk factors per assessment: EEG leads, chronic pain/gait instability, hospital environment, h/o epilepsy Assistance: SBA Supervision: Independent, Eyes on, Arms reach, Hands on Surveillance: Bed locked in low position, call ignacio within reach, purposeful hourly rounding, clutter free environment, bed/chair alarm on, family at bedside Patient-specific fall prevention interventions for sensory deficits provided: N/A CPG GOAL OUTCOME EVALUATION: Continue care plan as documented. * Initial Assessments - Shannan Johnson RN - 11/24/2021 2:15 PM EDT Office of Care Management Initial Assessment Medical record reviewed. Plan of care and patient status discussed with direct care Registered Nurse and/or Care Team in multidisciplinary rounds. Reason for Hospitalization: Worsening seizures, back pain and swelling Last COVID test: Lab Results Component Value Date COVID19 Not Detected 07/07/2021 [id number] Not Detected 07/04/2021 Present on Admission: ??? Seizures Hospitalizations Within the Past 30 Days: no previous admission in last 30 days Patient receiving hospital care under Inpatient status. Admission order reviewed. Health/Prescription Coverage: Primary Insurance: [place] Pay[place] / Plan[place] PRIMARY [place] / Product Type: *No Product type* / Secondary Insurance: N/A ; Prescription Coverage: Yes Preferred Pharmacy: [facility] #[id number] AT SEC OF [address] [id number] [facility][id number] - [place], [place] - [address] [facility] [address] [facility] [id number] [id number] - [place], [place] - [address] [place] [id number] Advance Care Planning: Attempt Cardiopulmonary Resuscitation - Inpatient <no information> -Advanced Directive: No, need to discuss Current Functional Ability: Independent Functional Status Prior to Admission: Independent Home Environment: Others in the home: child(jeremie), minor. Current Living Arrangements: home/apartment/condo. Accessibility Concerns:no concerns noted at this time, pt has chronic backpain will have OT/Pt evalduring hospital stay.. Current DME: none [facility] [employer] [address] [facility] [id number] Social & Family Supports: All names listed [...] necessary care and/or follow-up after discharge. Plan: TBD pending hospital course and rehab evals. Pt has new onset increased seizure like activityin setting of new edema and ovarian cyst. Has chronic back pain, will have OT/PT eval during hospital stay. Registered Nurse Offal Worker / Destination Coordinator will continue to follow patient???s progress and remain available if situation changes for coordination of care, psychosocial support and/or discharge planning. Office of Care Management Shannan MANDUJANO, RN Pager #[phone] * Consult Note - Lilian Majano, DO - 11/24/2021 12:24 PM EDT Gynecology Service - Consultation Note Date of Consultation: 11/24/2021 Consult Service: Gynecology Consult Service Responsible Attending: Dr. Galicia Place of Service: Inpatient Unit Reason for Consult: We are seeing Lennoxchris Garber at the request of Lennox Garber of the Neurology service for the evaluation of incidental finding of ovarian cyst on imaging. I have reviewed the available records, interviewed, and examined the patient. Active Problem List: Active Hospital Problems Diagnosis ??? Seizures Resolved Hospital Problems No resolved problems to display. Active Non-Hospital Problems Diagnosis ??? Seizure-like activity ??? Radiculopathy of lumbar region ??? CIS - Entered not Verified ??? CIS - ASD, S/P repair ??? CIS - Asthma ??? CIS - Depression ??? CIS - Hx CHTN History of Present Illness: Patient has history of seizure disorder with inconsistent medical management and multiple ED visits. She is admitted for 24 hour EEG monitoring. Upon arrival, patient noted abdominal distention and pain. CT imaging revealed incidental Left ovarian cystic lesion measuring 5.9 x 5.9 x 6.5 cm measuring fluid attenuation with question of crescentic soft tissue component inferior versus layering debris. Neurology was concerned with this finding in the setting of new onset pitting edema and 50 lb weight gain in 6 months. Today she reports no lower abdominal pain. She does not really pay attention to the abdominal painbecause [she] gets IBS anyway and its hard to tell what it is or is not. IBS is diarrhea predominant. Gets more pain on L side on her back, chronic. Specifically notes there is no L sided pain in pelvis. Sometimes posterior hip and epigastric pain. Dose not some coital sex, but does not stop her from having sex. Urinary incontinence with sneeze and cough s/p 2 with tears. Denies history of cysts or cyst ruptures. Neg family history: breast, ovarian, colon, uterine cancers. Regular menses, light, 2-3 days, cramping the first day but does not do analgesics Patient incidentally reports fecal incontinence with intercourse that causes distress. Review of Systems: Positive: Lower extremity edema, urinary incontinence (stress), diarrhea (baseline) Negative: acute abdominal pain, fever/chills, N/V, abnormal vaginal bleeding, abnormal vaginal discharge, constipation Past Medical and Surgical History: No past medical history on file. Past Surgical History: Procedure Laterality Date ??? PRO INJECTION DX/THER SBST INTRLMNR LMBR/SAC W/IMG GDN Midline 05/18/2021 INJECTION, EPIDURAL, LUMBAR OR SACRAL (CAUDAL), WITH IMAGING GUIDANCE (WRVU 1.8) performed by Sarah Munguia MD at [facility] PAIN MGMT MSO Past Obstetric History: OB History Para Term AB Living 4 2 1 1 2 0 SAB IAB Ectopic Multiple Live Births 0 2 0 0 0 Obstetric Comments Two first trimester D+C Past Gynecologic History: D+C x 2 (2000, 2020) No STIs Due for pap, no abnormal, does with PCP, attempted with PCP this year but was on period and will reschedule BTL Medications: Current Facility-Administered Medications: ??? ARIPiprazole (Abilify) tablet 2 mg, 2 mg, Oral, Daily, SchommerLennox M, MAIL HANDLER ASSISTANT, 2 mg at 11/24/21 0854 ??? citalopram (CeleXA) tablet 40 mg, 40 mg, Oral, Daily, SchommerLennox M, MAIL HANDLER ASSISTANT, 40 mg at 11/24/21 0854 ??? cloBAZam (Onfi) tablet 10 mg, 10 mg, Oral, Daily, SchommerLennox M, MAIL HANDLER ASSISTANT, 10 mg at 11/24/21 1214 ??? cloBAZam (Onfi) tablet 20 mg, 20 mg, Oral, Nightly, SchommerLennox M, MAIL HANDLER ASSISTANT, 20 mg at 11/23/212041 ??? furosemide (Lasix) tablet 60 mg, 60 mg, Oral, Daily, SchommerLennox M, MAIL HANDLER ASSISTANT, 60 mg at 11/24/21 0854 ??? levETIRAcetam (Keppra) tablet 500 mg, 500 mg, Oral, BID, SchommerLennox M, MAIL HANDLER ASSISTANT, 500 mg at 11/24/21 1214 ??? albuteroL (Proventil) nebulizer solution 2.5 mg, 2.5 mg, Nebulization, Q4H PRN, Schdima, Lennox M, MAIL HANDLER ASSISTANT ??? sodium chloride 0.9 % (flush) (BD PosiFlush Normal Saline 0.9) flush 5 mL, 5 mL, Intravenous, BID, Lennox Acharya, MAIL HANDLER ASSISTANT, 5 mL at 11/24/21 0855 ??? sodium chloride 0.9 % (flush) (BD PosiFlush Normal Saline 0.9) flush 5-20 mL, 5-20 mL, Intravenous, Q1 Min PRN, Lennox Acharya, MAIL HANDLER ASSISTANT ??? lidocaine (Xylocaine) 1% (10 mg/mL) injection 3 mg, 0.3 mL, Subcutaneous, Once PRN, Lennox Acharya, MAIL HANDLER ASSISTANT ??? diazePAM (Valium) (5 mg/mL) injection syringe 5 mg, 5 mg, Intravenous, Once PRN, Lennox Acharya, MAIL HANDLER ASSISTANT ??? enoxaparin (Lovenox) (40 mg/0.4 mL) subcutaneous injection 40 mg, 40 mg, Subcutaneous, BID, Lennox Acharya, MAIL HANDLER ASSISTANT, 40 mg at 11/24/21 0854 ??? influenza vaccine (6 mos-64 yrs)(PF) (Flulaval) vaccine syringe 0.5 mL, 0.5 mL, Intramuscular, Prior to discharge, Scott Abbott MD ??? lidocaine (Lidoderm) 5% patch 1 patch, 1 patch, Transdermal, Q24H, 1 patch at 11/23/21 1853 AND lidocaine (Lidoderm) topical patch REMOVAL, 1 patch, Transdermal, Q24H, Lennox Acharya MAIL HANDLER ASSISTANT ??? celecoxib (CeleBREX) capsule 100 mg, 100 mg, Oral, BID, Lennox Acharya, MAIL HANDLER ASSISTANT, 100 mg at 11/24/21 0854 Prior To Admission Medications: Medications Prior to Admission Medication Sig Dispense Refill Last Dose ??? levETIRAcetam (Keppra) 500 mg Tablet Take 500 mg by mouth 2 times daily. 11/23/2021 at Unknown time ??? furosemide (Lasix) 20 mg Tablet Take 60 mg by mouth as needed. 11/23/2021 at Unknown time ??? cloBAZam (Onfi) 10 mg Tablet Take 1 pill in AM and 2 pills in PM 90 tablet 5 11/23/2021 at Unknown time ??? divalproex EC (Depakote) 250 mg Tablet, Delayed Release (E.C.) 250mg in the morning, 500mg nightly 90 tablet 11 11/23/2021 at Unknown time ??? meloxicam (MOBIC) 15 mg Tablet Take 1 tablet by mouth daily. 30 tablet 12 11/23/2021 at Unknown time ??? ProAir HFA 90 mcg/actuation HFA Aerosol Inhaler INL 1 TO 2 PFS PO Q 4 TO 6 H PRN Past Month at Unknown time ??? ARIPiprazole (ABILIFY) 2 mg Tablet Take 2 mg by mouth daily. 0 11/23/2021 at Unknown time ??? citalopram (CELEXA) 20 mg Tablet Take 40 mg by mouth daily. 0 11/23/2021 at Unknown time ??? UNABLE TO FIND Take by mouth as needed. Med Name: CBD oil 11/22/2021 at Unknown time ??? lidocaine (Lidoderm) 5% Adhesive Patch, Medicated Apply 1 patch onto the skin daily. (leave on for 12 hours and remove for 12 hours) 30 patch 0 Unknown at Unknown time ??? cholecalciferol, Vitamin D3, 50 mcg (2,000 unit) Tablet Take 1 tablet by mouth daily. 90 tablet3 More than a month at Unknown time Allergies: No Known Allergies Family History: Family History Problem Relation Age of Onset ??? Uterine Cancer Neg Hx ??? Ovarian Cancer Neg Hx ??? Colorectal Cancer Neg Hx ??? Breast Cancer Neg Hx Social History and Habits: Social History Socioeconomic History ??? Marital status: [...] on file Housing Stability: Not on file Physical Exam: Last set of vitals and range over past 24 hours: Last value Range last 24 hrs Temperature Temp: 36.9 ??C (98.4 ??F) Temp: [36.8 ??C (98.2 ??F)-36.9 ??C (98.4 ??F)] Heart Rate Heart Rate: 56 Heart Rate: [56] Blood Pressure BP: 97/50 BP: (97-109)/(50-66) Respiratory Rate Resp: 16 Resp: [16] SpO2 SpO2: 95 % SpO2: [91 %-95 %] General: Well developed female. Skin: no rashes Lungs: clear to auscultation bilaterally, no wheezes or rales Heart: RRR, normal S1/S2, no murmurs/rubs/gallops Abdomen: no scars; + bowel sounds, no masses or hepatosplenomegaly; soft, nontender, nondistended Extremities: No calf tenderness or lower ext edema Neuro: grossly intact Laboratory (Last 24 Hours): Recent Results (from the past 24 hour(s)) TSH Brown Result Value Ref Range TSH 1.50 0.27 - 4.20 mcIU/mL Thyroid peroxidase antibody Result Value Ref Range Thyroperox Ab <10 <=34 IU/mL Thyroglobulin Antibody Result Value Ref Range Thyroglob Ab <20.0 0.0 - 40.0 IU/mL Ammonia Result Value Ref Range Ammonia 32 11 - 51 mcmol/L Gamma GT Result Value Ref Range GGT 27 5 - 36 unit/L Amylase Result Value Ref Range Amylase 33 28 - 100 unit/L Lipase Result Value Ref Range Lipase 18 0 - 60 unit/L Vitamin D, 25-Hydroxy Result Value Ref Range 25-OH Vit D Total 19 (L) 21 - 100 ng/mL 25-OH Vit D Interp Deficient Comprehensive metabolic panel (non-fasting) Result Value Ref Range Glucose Lvl 78 65 - 199 mg/dL BUN 14 8 - 18 mg/dL Creatinine 0.76 0.70 - 1.20 mg/dL Sodium 137 135 - 145 mmol/L Potassium 4.1 3.5 - 5.0 mmol/L Chloride 100 98 - 107 mmol/L CO2 23 22 - 31 mmol/L Anion Gap 14 5 - 15 mmol/L Calcium 9.2 8.5 - 10.5 mg/dL Total Protein 6.5 6.1 - 8.0 g/dL Albumin 4.0 3.2 - 5.2 g/dL AST 22 0 - 30 unit/L ALT 29 0 - 30 unit/L Alk Phos 25 (L) 35 - 105 unit/L Total Bilirubin 0.2 0.2 - 1.3 mg/dL Estimated GFR 103 >=60 mL/min/1.73 m?? Beta HCG, quantitative Result Value Ref Range Beta hCG Quant <1 mlU/ML Valproic Acid Level, Total Result Value Ref Range Valproic Lvl 58 mg/L Hemogram Result Value Ref Range WBC 7.0 4.0 - 9.5 x10(3)/mcL RBC 4.14 4.00 - 5.21 x10(6)/mcL Hemoglobin 12.8 11.7 - 15.5 g/dL Hematocrit 36.6 35.7 - 45.8 % MCV 88.4 82.6 - 94.4 fL MCH 30.9 27.1 - 32.0 pg MCHC 35.0 31.7 - 35.0 g/dL Platelets 234 145 - 357 x10(3)/mcL RDWSD 37.4 37.0 - 46.0 fL RDWCV 11.8 11.5 - 14.1 % MPV 8.6 7.6 - 12.9 fL nRBC % Auto 0.0 % nRBC Abs Auto 0.000 0.000 - 0.000 x10(3)/mcL Differential,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 Abilify -Providing mental health resources upon discharge -Consider CBT specifically aimed at stress redirection, possibly focused on management of stress induced seizures #Lower Extremity Edema -PCP and Cardiology followup #Ovarian Cyst -Followup scheduled with OB-GYROSCOPIC INSTRUMENT TESTER #Low back pain -No neurologic contraindication to undergoing surgery for herniated disc if this remains indicated Discharge seizure medications: Onfi 10 mg AM and 20 mg PM Please send copy to: - Comfort Urban APRN (pcp) - Dr. Mohan (neurologist) Ming Apodaca MD NEUROLOGY ORDERABLES * U24 Hrs and Volume (11/25/2021 7:00 AM EDT) Hours Collected 22 hour(s) [facility] Total Volume 1,830 mL [facility] Urine 11/25/2021 7:00 AM EDT 11/25/2021 11:22 AM EDT Narrative Resulting Agency Comment Spec In Lab Lennox Acharya APRN CHEMISTRY ORDERA BLES [facility] [place] [address] * Metanephrines, Fractionated, urine, 24 hour (11/25/2021 7:00 AM EDT) U24 Metanephrine s,Frac (MAY) Test ? Result ?Flag ??Unit ?RefValue ------- Metanephrines, Fractionated, 24h, U ??Metanephrine, U ?55 ?mcg/24 h ?For urine collections 22-26 hours; results are calculated ?as a 24 hour collection. ? ---REFERENCE VALUE ?30-180 (Normotensive) ?<400 (Hypertensive) ??Normetanephrine, U ? 146 ? mcg/24 h ?For urine collections 22-26 hours; results are calculated ?as a 24 hour collection. ? ---REFERENCE VALUE ?111-419 (Normotensive) ?<900 (Hypertensive) ??Total Metanephrines, U ? 201 ? mcg/24 h ?For urine collections 22-26 hours; results are calculated ?as a 24 hour collection. ? ---REFERENCE VALUE ?149-535 (Normotensive) ?<1300 (Hypertensive) ??Collection Duration ?22 ?h ??Urine Volume ? 1830 ?mL ? ---ADDITIONAL INFORMATION------- ?This test was developed and its performance characteristics ?determined by [facility] in a manner consistent with CLIA ?requirements. This test has not been cleared or approved by ?the U.S. Food and Drug Administration. ?Test Performed by: ?[facility] ?[address] [place] [address] ?Agronomy Location Manager: Tito King M.D. Ph.D.; CLIA# [id number] [facility] Urine 11/25/2021 7:00 AM EDT 11/27/2021 9:09 AM EDT Narrative Resulting Agency Comment Spec In Lab Lennox Acharya MAIL HANDLER ASSISTANT LAB SEND OUT ORD ERABLES [facility] [place] [address] * (ABNORMAL) Catecholamines Frac Free urine, 24 hr (11/25/2021 7:00 AM EDT) U24 Catechol, Frac Test ? Result ?Flag ??Unit ?RefValue ------- Catecholamine Fract, Free, U ??Collection Duration ?22 ?h ??Urine Volume ? 1830 ?mL ??Norepinephrine ? 12 ? L ?mcg/24 h ??15-80 ?For urine collections 22-26 hours; results are calculated ?as a 24 hour collection. ??Epinephrine ?<0.9 ?mcg/24 h ??<21 ?For urine collections 22-26 hours; results are calculated ?as a 24 hour collection. ??Dopamine ? 167 ? mcg/24 h ??65-400 ?For urine collections 22-26 hours; results are calculated ?as a 24 hour collection. ? ---ADDITIONAL INFORMATION------- ?This test was developed and its performance characteristics ?determined by [facility] in a manner consistent with CLIA ?requirements. This test has not been cleared or approved by ?the U.S. Food and Drug Administration. ?Test Performed by: ?[facility] ?[address] [place] [address] ?[employer]gr[employer] Location Manager: Tito King M.D. Ph.D.; CLIA# [id number]) [facility] Urine 11/25/2021 7:00 AM EDT 11/27/2021 9:09 AM EDT Narrative Resulting Agency Comment Spec In Lab Lennox Acharya APRN LAB SEND OUT ORD ERABLES [facility] [place] [address] * 5 HIAA, quantitative, urine, 24 hour (11/25/2021 7:00 AM EDT) Pathologist [facility] U24 5-HIAA (JULY) 4.6 <=7.0 mg/24hr [facility] Comment: Not a 24 hour collection; normals do not apply. Test Performed by: [address] [address] [employer] Location Manager: Tito King M.D. Ph.D.; CLIA# [id number] Urine 11/25/2021 7:00 AM EDT 11/27/2021 9:09 AM EDT Narrative Resulting Agency Comment Spec In Lab Lennox Acharya APRN LAB SEND OUT ORD ERABLES [facility] [place] [address] * (ABNORMAL) Urinalysis with reflex Culture (11/24/2021 5:15 PM EDT) [facility] Glucose, Urine Dipstick Negative Negative mg/dL [facility] Protein, Urine Dipstick Negative Negative mg/dL [facility] Bilirubin, Urine Dipstick Negative Negative mg/dL [facility] Comment: Clinical correlation required for positive Urine Bilirubin results as false positive may occur with some drugs and drug related products. If a false positive is suspected a serum total bilirubin should be considered if clinically indicated. Urobilinogen, Urine Dipstick Normal Normal mg/dL [facility] pH, Urn (dipstick) 6.0 5.0 - 8.0 [facility] Blood, Urine Dipstick Negative Negative mg/dL [facility] Ketone, Urine Dipstick Negative Negative mg/dL [facility] Nitrite, Urine Dipstick Negative Negative [facility] Leukocytes, Urine Dipstick Negative Negative [facility] Appearance, Urine Dipstick Cloudy(A) Clear [facility] Specific Marcy Urine Automated 1.012 1.005 - 1.030 [facility] Color, Urine Dipstick Yellow Yellow [facility] Reflex to Culture No [facility] Clean Catch Urine 11/24/2021 5:15 PM EDT 11/24/2021 6:17 PM EDT Narrative Resulting Agency Comment Spec In Lab Tereso Mohan MD URINE ORDERABLES Performing Organization Address City/[facility]/ZIP Co de Phone Number [facility] [place] [address] * Sedimentation rate (11/24/2021 2:22 PM EDT) Pathologist [facility] Sedimentation Rate Automated 6 2 - 37 mm/hr [facility] Comment: Effective February 11, 2019 new capillary photometric technology has resulted in a change in reference ranges. It is recommended that each ESR result be reviewed with its own age appropriate reference range. Blood 11/24/2021 2:22 PM EDT 11/24/2021 2:29 PM EDT Narrative Resulting Agency Comment Spec In Lab Lennox Acharya APRN HEMATOLOGY ORDER WILFREDO Performing Organization Address City/[facility]/ZIP Co de Phone Number [facility] [place] [address] * CRP, acute inflammation (11/24/2021 2:22 PM EDT) Pathologist [facility] C-Reactive Protein <3.0 <=4.9 mg/L [facility] Blood 11/24/2021 2:22 PM EDT 11/24/2021 2:29 PM EDT Narrative Resulting Agency Comment Spec In Lab Lennox Acharya APRN CHEMISTRY ORDERA BLES Performing Organization Address City/[facility]/ZIP Co de Phone Number [facility] [place] [address] * T3 Total (11/24/2021 2:22 PM EDT) Pathologist [facility] T3 Total 102 80 - 200 ng/dL [facility] Blood 11/24/2021 2:22 PM EDT 11/24/2021 2:29 PM EDT Narrative Resulting Agency Comment Spec In Lab Lennox Acharya APRN CHEMISTRY ORDERA BLES Performing Organization Address [facility] Co de Phone Number [facility] [place] [address] * T3, free (11/24/2021 2:22 PM EDT) Free T3 2.5 2.0 - 4.4 pg/mL [facility] Blood 11/24/2021 2:22 PM EDT 11/24/2021 2:29 PM EDT Narrative Resulting Agency Comment Spec In Lab Lennox Acharya APRN CHEMISTRY ORDERA BLES Performing Organization Address [facility] Co de Phone Number [facility] [place] [address] * (ABNORMAL) T4, free (11/24/2021 2:22 PM EDT) Free T4 0.70(L) 0.93 - 1.70 ng/dL [facility] Comment: Reference Interval (ng/dL): Females: ??First Trimester: 0.97-1.68 ??Second Trimester: 0.77-1.51 ??Third Trimester: 0.77-1.49 Blood 11/24/2021 2:22 PM EDT 11/24/2021 2:29 PM EDT Narrative Resulting Agency Comment Spec In Lab Lennox Acharya MAIL HANDLER ASSISTANT CHEMISTRY ORDERA BLES Performing Organization Address [facility] Co de Phone Number [facility] [place] [address] * (ABNORMAL) T4 Total (11/24/2021 2:22 PM EDT) T4 Total 4.7(L) 5.3 - 11.6 mcg/dL [facility] Comment: Reference Interval (mcg/dL): Females: ??First Trimester: 6.3-13.5 ??Second Trimester: 7.1-14.3 ??Third Trimester: 6.9-14.1 Blood 11/24/2021 2:22 PM EDT 11/24/2021 2:29 PM EDT Narrative Resulting Agency Comment Spec In Lab Lennoxjanuary Acharya MAIL HANDLER ASSISTANT CHEMISTRY ORDERA BLES [facility] [place] [address] * US Transvaginal Non OB (11/24/2021 1:31 PM EDT) Anatomical Region Laterality Modality Ultrasound 11/24/2021 1:28 PM EDT Impressions 11/24/2021 2:51 PM EDT Both transvaginal and transabdominal ultrasounds were performed to improve visualization of the uterus and ovaries as uterus was in a neutral position and neither ovary was clearly imaged transvaginally. 1. ??Anteverted uterus with normal endometrial echo complex. Redemonstrated nabothian cysts. 2. ??The left ovary measures 5.5 x 6.0 x 5.5 cm with several small follicles appreciated along its posterior margin. 3. ??Simple cyst arising from the left ovary measures approximately 5.3 cm in maximum dimension. No internal septations, nodularity, or vascularity. Can consider follow up transabdominal ultrasound for stability in 3 months. 4. ??The right ovary was not visualized transvaginally, but was successfully visualized via transabdominal ultrasound and measures 1.5 x 2.0 x 2.4 cm. 5. ??No free fluid in the pelvis. I have personally reviewed the image(s) and the resident's interpretation and agree with the findings, Deonte Lake MD at 11/24/2021 2:42 PM Thank you for letting us participate in the care of this patient. If you are a health care provider and have any questions regarding this report, please contact the number above. For patients who have questions, please contact the health school childcare attendant that requested your imaging first. ? Deonte Lake, Staff Physician Electronically Signed Final Report ?? 11/24/2021 02:50 pm Narrative 11/24/2021 2:51 PM EDT Gynecological Report ?(Signed Final 11/24/2021 02:50 pm) PATIENT INFO: ID #: ? [id number] ?: ??[birth year] (36 yrs)(F) Name: ? LENNOX GARBER ? Visit Date: 11/24/2021 01:28 pm PERFORMED BY: Performed By: ? Sharita Pack RDMS Attending: ?Jaya RODRIGUEZ, Deonte Vallejo Referred By: ?LENNOX ACHARYA Location: ? [place] SERVICE(S) PROVIDED: UTV - Transvaginal - [id number] ?[id number] UPELIM - Pelvis Limited - [id number] ? [id number] INDICATIONS: per holistic specialist onc, obtain for better visualization of ovarian cyst and surrounding structures TECHNIQUE/SCAN QUALITY: Technique: ?Transducer ID#: [id number] COMPARISON: Prior CT : 11/09/21 -------- HISTORY: -------- Age: ?? 36 PREVIOUS PELVIC SURGERY: Bilateral tubal ligation per pt ------- UTERUS: ------- Uterus: ? Visualized Position: ?? Anteverted Size (cm) ?L: ??8.0 ? W: ?? 5.1 ?H: ??3.9 ENDOMETRIUM: Endometrium: ?Normal appearance Thickness(mm): ?5.7 ------- CERVIX: ------- Normal appearance Multiple nabothian cysts seen CUL-DE-SAC: No fluid is visualized. RIGHT OVARY: Status: ?? Visualized Size (cm) ?L: ??1.5 ? W: ?? 2.1 ?H: ??2.4 Vol (ml): ?4.0 Morphology: ?Normal appearance Comment: ? Ovary was not seen transvaginally, therefore ?transabdominal ultrasound was performed. LEFT OVARY: Status: ?? Visualized Size (cm) ?L: ??5.5 ? W: ?? 6.0 ?H: ??5.5 Vol (ml): ?95.0 Morphology: ?Normal appearance Type: ?? Simple cyst Size (cm) ?L: ??5.3 ? W: ?? 5.3 ?H: ??5.0 Vol (ml): ?73.5 Procedure Note Deonte Lake MD - 11/24/2021 Gynecological Report (Signed Final 11/24/2021 02:50 pm) PATIENT INFO: ID #: [id number] : [birth year] (36 yrs)(F) Name: LENNOX GARBER Visit Date: 11/24/2021 01:28 pm PERFORMED BY: Performed By: June Pack RDMSgail Attending: Deonte Lake MD Referred By: LNENOX ACHARYA Location: [place] SERVICE(S) PROVIDED: UTV - Transvaginal - [id number] UPELIM - Pelvis Limited - [id number] INDICATIONS: per holistic specialist onc, obtain for better visualization of ovarian cyst and surrounding structures TECHNIQUE/SCAN QUALITY: Technique: Transducer ID#: [id number] COMPARISON: Prior CT : 11/09/21 -------- HISTORY: -------- Age: 36 PREVIOUS PELVIC SURGERY: Bilateral tubal ligation per pt ------- UTERUS: ------- Uterus: Visualized Position: Anteverted Size (cm) L: 8.0 W: 5.1 H: 3.9 ENDOMETRIUM: Endometrium: Normal appearance Thickness(mm): 5.7 ------- CERVIX: ------- Normal appearance Multiple nabothian cysts seen CUL-DE-SAC: No fluid is visualized. RIGHT OVARY: Status: Visualized Size (cm) L: 1.5 W: 2.1 H: 2.4 Vol (ml): 4.0 Morphology: Normal appearance Comment: Ovary was not seen transvaginally, therefore transabdominal ultrasound was performed. LEFT OVARY: Status: Visualized Size (cm) L: 5.5 W: 6.0 H: 5.5 Vol (ml): 95.0 Morphology: Normal appearance Type: Simple cyst Size (cm) L: 5.3 W: 5.3 H: 5.0 Vol (ml): 73.5 IMPRESSION Both transvaginal and transabdominal ultrasounds were performed to improve visualization of the uterus and ovaries as uterus was in a neutral position and neither ovary was clearly imaged transvaginally. 1. Anteverted uterus with normal endometrial echo complex. Redemonstrated nabothian cysts. 2. The left ovary measures 5.5 x 6.0 x 5.5 cm with several small follicles appreciated along its posterior margin. 3. Simple cyst arising from the left ovary measures approximately 5.3 cm in maximum dimension. No internal septations, nodularity, or vascularity. Can consider follow up transabdominal ultrasound for stability in 3 months. 4. The right ovary was not visualized transvaginally, but was successfully visualized via transabdominal ultrasound and measures 1.5 x 2.0 x 2.4 cm. 5. No free fluid in the pelvis. I have personally reviewed the image(s) and the resident's interpretation and agree with the findings, Deonte Lake MD at 11/24/2021 2:42 PM Thank you for letting us participate in the care of this patient. If you are a health care provider and have any questions regarding this report, please contact the number above. For patients who have questions, please contact the health school childcare attendant that requested your imaging first. Deonte Lake, Staff Physician Electronically Signed Final Report 11/24/2021 02:50 pm Lennox Acharya APRN IMG US PELVIC OR DERABLES * EEG Continuous Monitoring Inpatient (11/23/2021 7:49 PM EDT) Narrative Martin Javier - 11/23/2021 7:49 PM EDT Martin Javier ? 11/23/2021 ??7:52 PM [facility] Department of Neurology Continuous Video EEG (EMU) Report Name of the Patient: ??Lennox Garber Date of : ?1985 Date of Service: ?11/23/2021 Referring physician: Lennox Acharya APRN Reading Fellow: Donna Attending: Initial time and date cEEG monitoring started: 19:37:16 on 11/23/2021 Daily report EEG start time: Daily report EEG end time: Total recording time: BRIEF HISTORY: Lennox Garber is a 36 y.o. female with PMHx of seizures who presents for EMU admission HOME ANTISEIZURE MEDICATIONS: Antiseizure medications during monitoring: Day 1 (11/23/2021): METHODS: A 21 channel digitized continuous electroencephalogram with video was set up and recording started at 19:37:16 on 11/23/21. Following explanation of the procedure, the 10/20 international system of electrode placement was used to determine electrode placement and disposable MRI conditional electrodes were applied using the paste/collodion method of application. ??In addition to EEG the patient was monitored for EKG. Video was recorded during the session. SERVICES REP'S REPORT: Performed by: Martin Javier At the onset of the recording the patient was awake and cooperative. Movement and other artifact was not significant. Comments: None Lennox Acharya APRN NEUROLOGY ORDERA BLES * XR Chest PA & Lateral (Generic) (11/23/2021 5:41 PM EDT) Anatomical Region Laterality Modality Chest N/A Digital Radiogra phy Impressions 11/23/2021 6:32 PM EDT No pulmonary edema. No pneumonia. Thank you for letting us participate in the care of this patient. ??If you are a health care provider and have any questions regarding this report, please contact the number below. ??For patients who have questions please contact the health school childcare attendant that requested your imaging first. ? Narrative 11/23/2021 6:32 PM EDT EXAMINATION: XR CHEST PA AND LATERAL (GENERIC) CLINICAL HISTORY: infection vs edema TECHNIQUE: PA and lateral views of the chest COMPARISON: None FINDINGS: Lungs are clear without mass nor consolidation. No pleural effusion or pneumothorax. Cardiomediastinal contours and pulmonary vasculature are normal. No free air below the diaphragm or focal extrathoracic soft tissue abnormality. No displaced fracture. Intact midline sternotomy wires. Procedure Note Cassie Heck MD - 11/23/2021 EXAMINATION: XR CHEST PA AND LATERAL (GENERIC) CLINICAL HISTORY: infection vs edema TECHNIQUE: PA and lateral views of the chest COMPARISON: None FINDINGS: Lungs are clear without mass nor consolidation. No pleural effusion or pneumothorax. Cardiomediastinal contours and pulmonary vasculature are normal. No free air below the diaphragm or focal extrathoracic soft tissueabnormality. No displaced fracture. Intact midline sternotomy wires. IMPRESSION No pulmonary edema. No pneumonia. Thank you for letting us participate in the care of this patient. If youare a health care provider and have any questions regarding this report,please contact the number below. For patients who have questions please contactthe health school childcare attendant that requested your imaging first. Lennox Acharya APRN IMG DX ORDERABLE S * (ABNORMAL) Urine culture Urine (11/23/2021 5:30 PM EDT) Urine Culture 10,000-49,000 cfu/ml mixed mucosal charly Note: Culture shows multiple bacterial species suggesting mucosal contamination. If symptoms continue to indicate urinary tract infection, submit a new specimen. (A) [facility] Clean Catch Urine 11/23/2021 5:30 PM EDT 11/23/2021 6:47 PM EDT Narrative Resulting Agency Comment Spec In Lab Lennox Acharya APRN MICROBIOLOGY - G ENERAL ORDERABLES [facility] [place] [address] * (ABNORMAL) Differential, Automated (11/23/2021 5:10 PM EDT) Neutrophil % 44.8 % [facility] Neutrophil Absolute 3.13 1.70 - 6.10 x10(3)/ L [facility] Lymph % 34.4 % [facility] Lymphocytes Abs 2.4 0.9 - 3.2 x10(3)/ L [facility] Monocyte % 13.2 % [facility] Monocyte Abs 0.9 0.3 - 0.9 x10(3)/ L [facility] Eos % 6.2 % [facility] Eosinophils Abs 0.4 0.0 - 0.4 x10(3)/[facility] Basophil % 0.7 % [facility] [facility] Baso Absolute 0.0 0.0 - 0.1 x10(3)/ L [facility] Immature Gran % 0.70 % [facility] Comment: Immature granulocytes(IG's)percentage and absolute count will include metamyelocytes, myelocytes, and promyelocytes. Blood smears from CBCs yielding IG's will be scanned manually for concordance. If this scan disagrees with the automated IG or if promyelocytes are noted, a manual differential will be performed. Immature Gran Absolute 0.05(H) 0.00 - 0.04 x10(3)/ L [facility] Blood 11/23/2021 5:10 PM EDT 11/23/2021 5:21 PM EDT Narrative Resulting Agency Comment Spec In Lab Lennox Acharya MAIL HANDLER ASSISTANT HEMATOLOGY ORDER WILFREDO Performing Organization Address City/[facility]/ZIP Co de Phone Number [facility] [place] [address] * Hemogram (11/23/2021 5:10 PM EDT) Pathologist [facility] White Blood Cell 7.0 4.0 - 9.5 x10(3)/[facility] LABORATORY Red Blood Cell 4.14 4.00 - 5.21 x10(6)/[facility] LABORATORY Hemoglobin 12.8 11.7 - 15.5 g/dL [facility] Hematocrit 36.6 35.7 - 45.8 % [facility] Mean Cell Volume 88.4 82.6 - 94.4 fL [facility] Mean Cell Hemoglobin 30.9 27.1 - 32.0 pg [facility] Mean Cell Hemoglobin Concentration 35.0 31.7 - 35.0 g/dL [facility] Platelet 234 145 - 357 x10(3)/[facility] LABORATORY RDW Standard Deviation 37.4 37.0 - 46.0 [facility] LABORATORY RDW coefficient of variation 11.8 11.5 - 14.1 % [facility] Mean Platelet Volume 8.6 7.6 - 12.9 fL [facility] NRBC% auto 0.0 % [facility] NRBC Absolute 0.000 0.000 - 0.000 x10(3)/[facility] LABORATORY Blood 11/23/2021 5:10 PM EDT 11/23/2021 5:21 PM EDT Narrative Resulting Agency Comment Spec In Lab Lennox Acharya MAIL HANDLER ASSISTANT HEMATOLOGY ORDER WILFREDO [facility] [place] [address] * Clobazam Level (11/23/2021 5:10 PM EDT) Pathologist [facility] Clobazam (JULY) [facility] Comment: Clobazam and metabolite, S was cancelled on 12/15/2021 at 11:04; Missed test. Test Performed by: [facility] [address] [place] [id number] [employer] Location Manager: Tito King M.D. Ph.D.; CLIA# [id number] Desmethylclobazam (JULY) TNP [facility] Blood 11/23/2021 5:10 PM EDT 11/24/2021 9:23 AM EDT Narrative Resulting Agency Comment Spec In Lab Lennox Acharya APRN LAB SEND OUT ORD ERABLES Performing Organization Address City/[facility] Co de Phone Number [facility] [place] [address] * Levetiracetam level (11/23/2021 5:10 PM EDT) Levetiracetam Lvl (JULY) 11.5 10.0 - 40.0 mcg/mL [facility] Comment: ADDITIONAL INFORMATION This test was developed and its performance characteristics determined by [facility] in a manner consistent with CLIA requirements. This test has not been cleared or approved by the U.S. Food and Drug Administration. Test Performed by: [facility] - [place] [id number] [employer] Location Manager: Tito King M.D. Ph.D.; CLIA# [id number] Blood 11/23/2021 5:10 PM EDT 11/24/2021 9:23 AM EDT Narrative Resulting Agency Comment Spec In Lab Lennox Acharya APRN LAB SEND OUT ORD ERABLES Performing Organization Address City/[facility]/ZIP Co de Phone Number [facility] [place] [address] * Carnitine (11/23/2021 5:10 PM EDT) Carnitine Test ?Result ?Flag ??Unit ? RefValue --- Carnitine, S ??Total ? 56 ?nmol/mL ??34-78 ??Free (FC) ? 44 ?nmol/mL ??25-54 ??Acylcarnitine (AC) ?12 ?nmol/mL ??5-30 ??AC/FC Ratio ? 0.3 ?0.1-0.8 ??Interpretation ?In this sample, the carnitine profile was normal. ? --ADDITIONAL INFORMATION-------- ?This test was developed and its performance characteristics ?determined by [facility] in a manner consistent with CLIA ?requirements. This test has not been cleared or approved by ?the U.S. Food and Drug Administration. ?Test Performed by: ?[facility] ?[address] [id number] ?[employer] Location Manager: Tito King M.D. Ph.D.; IA# [id number] [facility] Blood 11/23/2021 5:10 PM EDT 11/24/2021 9:36 AM EDT Narrative Resulting Agency Comment Spec In Lab Lennox Acharya APRN LAB SEND OUT ORD ERABLES Performing Organization Address [facility] Co de Phone Number [facility] [place] [address] * Valproic Acid Level, Total (11/23/2021 5:10 PM EDT) Pathologist [facility] Valproic Acid 58 mg/L [facility] Comment: Therapeutic Range: Anticonvulsant Therapy: ??50-100 mg/L Manic Episodes Associated with Bipolar Disorder: ??50-125 mg/L Blood 11/23/2021 5:10 PM EDT 11/23/2021 5:21 PM EDT Narrative Resulting Agency Comment Spec In Lab Lennox Acharya APRN CHEMISTRY ORDERA BLES Performing Organization Address [facility] de Phone Number [facility] [place] [address] * Beta HCG, quantitative (11/23/2021 5:10 PM EDT) Beta Human Chorionic Gonadotropin, Quantitative <1 mlU/ML [facility] Comment: REFERENCE RANGES NON- FEMALE: ??Less than 5 mIU/mL POSTMENOPAUSAL FEMALE: ??Less than 8 mIU/mL ? -- FEMALES -- Weeks of ? [...] - 56,451 ?17 weeks ? 8,175 - 43,049 ?18 weeks ? 8,843 - 66,846 This result was generated using a Mando Alesha immunoassay. ??Results obtained from other methods or manufacturers cannot be used interchangeably with this method. Blood 11/23/2021 5:10 PM EDT 11/23/2021 5:21 PM EDT Narrative Resulting Agency Comment Spec In Lab Lennox Acharya APRN CHEMISTRY ORDERA RODY [facility] [place] [address] * (ABNORMAL) Comprehensive metabolic panel (non-fasting) (11/23/2021 5:10 PM EDT) Pathologist [facility] Glucose 78 65 - 199 mg/dL [facility] Comment:Diabetes: >=200 mg/d L plus symptoms Blood Urea Nitrogen 14 8 - 18 mg/dL [facility] Creatinine 0.76 0.70 - 1.20 mg/dL [facility] Sodium 137 135 - 145 mmol/L [facility] Potassium 4.1 3.5 - 5.0 mmol/L [facility] Comment: Please note: ??Patients with WBC >100,000 may have falsely elevated Potassium levels. ??For accurate Potassium quantification in these patients send serum separator tube (gold top) for subsequent determinations. ??Contact the Clinical Chemistry Laboratory if there are any questions. Chloride 100 98 - 107 mmol/L [facility] Carbon Dioxide 23 22 - 31 mmol/L [facility] Anion Gap 14 5 - 15 mmol/L [facility] Calcium 9.2 8.5 - 10.5 mg/dL [facility] Protein, Total 6.5 6.1 - 8.0 g/dL [facility] Albumin 4.0 3.2 - 5.2 g/dL [facility] Aspartate Aminotransferase 22 0 - 30 unit/L [facility] Alanine Aminotransferase 29 0 - 30 unit/L [facility] Alkaline Phosphatase 25(L) 35 - 105 unit/L [facility] Bilirubin, Total 0.2 0.2 - 1.3 mg/dL [facility] Est Glomerular Filtration Rate 103 >=60 mL/min/1. 73 m?? [facility] Comment: This patient's [...] and symptoms in addition to eGFR. Blood 11/23/2021 5:10 PM EDT 11/23/2021 5:21 PM EDT Narrative Resulting Agency Comment Spec In Lab Lennox Acharya APRN CHEMISTRY ORDERA BLES Performing Organization Address City/[facility] Co de Phone Number [facility] [place] [address] * (ABNORMAL) Vitamin D, 25-Hydroxy (11/23/2021 5:10 PM EDT) Vitamin D Total 25 OH 19(L) 21 - 100 ng/mL [facility] Vit D Interp Deficient [facility] Blood 11/23/2021 5:10 PM EDT 11/23/2021 5:21 PM EDT Narrative Resulting Agency Comment Spec In Lab Lennox Acharya APRN CHEMISTRY ORDERA BLES [facility] [place] [address] * Lipase (11/23/2021 5:10 PM EDT) Lipase 18 0 - 60 unit/L [facility] Blood 11/23/2021 5:10 PM EDT 11/23/2021 5:21 PM EDT Narrative Resulting Agency Comment Spec In Lab Lennox Acharya APRN CHEMISTRY ORDERA BLES Performing Organization Address City/[facility]/ZIP Co de Phone Number [facility] [place] [address] * Amylase (11/23/2021 5:10 PM EDT) Amylase 33 28 - 100 unit/L [facility] Blood 11/23/2021 5:10 PM EDT 11/23/2021 5:21 PM EDT Narrative Resulting Agency Comment Spec In Lab Lennox Acharya APRN CHEMISTRY ORDERA BLES Performing Organization Address City/[facility]/ZIP Co de Phone Number [facility] [place] [address] * Gamma GT (11/23/2021 5:10 PM EDT) Gamma Glutamyl Transferase 27 5 - 36 unit/L [facility] Blood 11/23/2021 5:10 PM EDT 11/23/2021 5:21 PM EDT Narrative Resulting Agency Comment Spec In Lab Lennox Acharya MAIL HANDLER ASSISTANT CHEMISTRY ORDERA BLES Performing Organization Address City/[facility]/ZIP Co de Phone Number [facility] [place] [address] * Ammonia (11/23/2021 5:10 PM EDT) Ammonia 32 11 - 51 mcmol/L [facility] Blood 11/23/2021 5:10 PM EDT 11/23/2021 5:19 PM EDT Narrative Resulting Agency Comment Spec In Lab Lennox Acharya APRN CHEMISTRY ORDERA BLES Performing Organization Address City/[facility]/ZIP Co de Phone Number [facility] [place] [address] * Thyroglobulin Antibody (11/23/2021 5:10 PM EDT) Thyroglob Ab <20.0 0.0 - 40.0 IU/mL [facility] Comment: This result was generated using a Siemens Immulite immunoassay. ??Results obtained from other methods or manufacturers cannot be used interchangeably with this method. Blood 11/23/2021 5:10 PM EDT 11/24/2021 7:41 AM EDT Narrative Resulting Agency Comment Spec In Lab Lennox Acharya APRN LAB SEND OUT ORD ERABLES Performing Organization Address [facility] Co de Phone Number [facility] [place] [address] * Thyroid peroxidase antibody (11/23/2021 5:10 PM EDT) Thyroperoxidase Ab <10 <=34 IU/mL [facility] Blood 11/23/2021 5:10 PM EDT 11/24/2021 7:41 AM EDT Narrative Resulting Agency Comment Spec In Lab Lennox Acharya APRN IMMUNOLOGY ORDER WILFREDO Performing Organization Address City/[facility]/ZIP Co de Phone Number [facility] [place] [address] * TSH Brown (11/23/2021 5:10 PM EDT) Thyroid Stimulating Hormone 1.50 0.27 - 4.20 mcIU/mL [facility] Comment: Reference Interval (mcIU/mL): Females: ??First Trimester: 0.23-3.88 ??Second Trimester: 0.22-3.90 ??Third Trimester: 0.44-4.66 Blood 11/23/2021 5:10 PM EDT 11/23/2021 5:21 PM EDT Narrative Resulting Agency Comment Spec In Lab Lennox Acharya APRN CHEMISTRY ORDERA BLES Performing Organization Address [facility] Co de Phone Number [facility] [place] [address] * EKG 12 Lead (11/23/2021 4:58 PM EDT) Ventricular rate 61 BPM MUSE SYSTEM Atrial Rate 61 BPM MUSE SYSTEM P-R Interval 166 ms MUSE SYSTEM QRS Duration 98 ms MUSE SYSTEM Q-T Interval 428 ms MUSE SYSTEM QTC Calculated (Bezet) 430 ms MUSE SYSTEM Calculated P [place] -15 degrees MUSE SYSTEM Calculated R [place] 33 degrees MUSE SYSTEM Calculated T [place] 35 degrees MUSE SYSTEM INTERPRETATION Normal sinus rhythm Incomplete right bundle branch block T wave abnormality, consider anterior ischemia Abnormal ECG When compared with ECG of 04-JUL-2021 18:54, Nonspecific T wave abnormality, worse in Inferior leads T wave inversion no longer evident in Lateral leads Confirmed by MD MELITA, ANDREA ([id number]) on 11/24/2021 8:28:45 AM MUSE SYSTEM 11/23/2021 4:58 PM EDT 11/24/2021 8:28 AM EDT Lennox Acharay APRN ECG ORDERABLES Performing Organization Address [facility] Co de Phone Number MUSE SYSTEM documented in this encounter Visit Diagnoses Diagnosis Seizure-like activity Other convulsions Simple adnexal cyst greater than 5 cm in diameter in premenopausal patient Seizures Other convulsions Simple adnexal cyst greater than 5 cm in diameter in premenopausal patient documented in this encounter Admitting Diagnoses Diagnosis Seizures Other convulsions documented in this encounter Administered Medications Inactive Administered Medications - up to 3 most recent administrations Medication Order MAR Action Action Date Dose Rate Site ARIPiprazole (Abilify) tablet 2 mg 2 mg, Oral, DAILY, First dose on Sat11/24/21 at 0900, Until Discontinued, Routine Given 11/29/2021 11:21 AM EDT 2 mg Given 11/28/2021 8:16 AM EDT 2 mg Given 11/27/2021 8:23 AM EDT 2 mg celecoxib (CeleBREX) capsule 100 mg 100 mg, Oral, 2 TIMES DAILY, First dose on Sat11/23/21 at 2100, Until Discontinued, Routine Given 11/29/2021 9:55 AM EDT 100 mg Given 11/28/2021 9:34 PM EDT 100 mg Given 11/28/2021 8:16 AM EDT 100 mg citalopram (CeleXA) tablet 40 mg 40 mg, Oral, DAILY, First dose on Sat11/24/21 at 0900, Until Discontinued, Routine Given 11/29/2021 9:55 AM EDT 40 mg Given 11/28/2021 8:16 AM EDT 40 mg Given 11/27/2021 8:24 AM EDT 40 mg cloBAZam (Onfi) tablet 10 mg 10 mg, Oral, DAILY, First dose on Sat11/24/21 at 0900, Until Discontinued, Routine Given 11/29/2021 9:55 AM EDT 10 mg Given 11/28/2021 10:24 AM EDT 10 mg Given 11/27/2021 11:32 AM EDT 10 mg cloBAZam (Onfi) tablet 20 mg 20 mg, Oral, NIGHTLY, First dose on Sat11/23/21 at 2100, Until Discontinued, Routine Given 11/28/2021 9:33 PM EDT 20 mg Given 11/27/2021 8:36 PM EDT 20 mg Given 11/26/2021 8:30 PM EDT 20 mg divalproex EC (Depakote) tablet 500 mg 500 mg, Oral, NIGHTLY, First dose on Sat11/23/21 at 2100, Until Discontinued, DO NOT SPLIT, CRUSH OR OPEN, Routine Given 11/23/2021 8:42 PM EDT 500 mg enoxaparin (Lovenox) (40 mg/0.4 mL) subcutaneous injection 40 mg 40 mg, Subcutaneous, 2 TIMES DAILY, First dose on Sat11/23/21 at 2100, Until Discontinued, Routine Given 11/29/2021 9:57 AM EDT 40 mg Given 11/28/2021 9:33 PM EDT 40 mg Given 11/28/2021 8:16 AM EDT 40 mg furosemide (Lasix) tablet 60 mg 60 mg, Oral, DAILY, First dose on Sat11/24/21 at 0900, Until Discontinued, Routine Given 11/29/2021 9:55 AM EDT 60 mg Given 11/28/2021 8:17 AM EDT 60 mg Given 11/27/2021 8:23 AM EDT 60 mg levETIRAcetam (Keppra) tablet 500 mg 500 mg, Oral, 2 TIMES DAILY, First dose on Sat11/23/21 at 2100, Until Discontinued, Routine Given 11/26/2021 8:29 PM EDT 500 mg Given 11/26/2021 10:29 AM EDT 500 mg Given 11/25/2021 8:43 PM EDT 500 mg lidocaine (Lidoderm) 5% patch 1 patch 1 patch, Transdermal, EVERY 24 HOURS, First dose on Sat11/23/21 at 1800, Until Discontinued, Apply patch(es) for 12 hours, and then remove for 12 hours., Routine Patch Applied 11/28/2021 9:35 PM EDT 1 patch 07- Back Lower (Left) Patch Applied 11/27/2021 8:36 PM EDT 1 patch 08- Back Lower (Right) Patch Applied 11/26/2021 7:22 PM EDT 1 patch 07- Back Lower (Left) lidocaine (Lidoderm) topical patch REMOVAL Transdermal, EVERY 24 HOURS, First dose on Sat11/24/21 at 0900, Until Discontinued, Remove lidocaine 5% patch melatonin tablet 3 mg 3 mg, Oral, NIGHTLY PRN, Starting on Sat11/27/21 at 0010, Until Sat11/29/21 at 1344, Help to sleep, Routine Given 11/28/2021 9:33 PM EDT 3 mg Given 11/27/2021 12:17 AM EDT 3 mg sodium chloride 0.9 % (flush) (BD PosiFlush Normal Saline 0.9) flush 5 mL 5 mL, Intravenous, 2 TIMES DAILY, First dose on Sat11/23/21 at 2100, Until Discontinued, Routine Given 11/29/2021 9:00 AM EDT 5 mLs Given 11/28/2021 9:37 PM EDT 5 mLs Given 11/28/2021 8:17 AM EDT 5 mLs documented in this encounter Active and Recently Administered Medications Times are shown in EDT. Scheduled Medication Order 11/27/2021 11/28/2021 11/29/2021 ARIPiprazole (Abilify) tablet 2 mg 2 mg, Oral, DAILY, First dose on Sat11/24/21 at 0900, Until Discontinued, Routine 0823 (Given - Provider: Mae Vasquez RN) 0816 (Given - Provider: Iraida Thapa RN) 112 (Given - Provider: Lilian Maria RN) celecoxib (CeleBREX) capsule 100 mg 100 mg, Oral, 2 TIMES DAILY, First dose on Sat11/23/21 at 2100, Until Discontinued, Routine 0823 (Given - Provider: Mae Vasquez RN)2035 (Given - Provider: Moise Wolf RN) 0816 (Given - Provider: Iraida Thapa RN)213 (Given - Provider: Moni Watts RN) 0955 (Given - Provider: Lilian Maria RN) citalopram (CeleXA) tablet 40 mg 40 mg, Oral, DAILY, First dose on Sat11/24/21 at 0900, Until Discontinued, Routine 0824 (Given - Provider: Mae Vasquez RN) 0816 (Given - Provider: Iraida Thapa RN) 0955 (Given - Provider: Lilian Maria RN) cloBAZam (Onfi) tablet 10 mg 10 mg, Oral, DAILY, First dose on Sat11/24/21 at 0900, Until Discontinued, Routine 1132 (Given - Provider: Mae Vasquez RN) 1024 (Given - Provider: Shelby Burk RN - Comment: scanner unable to scan barcode after multiple attempts made) 0955 (Given - Provider: Lilian Maria RN) cloBAZam (Onfi) tablet 20 mg 20 mg, Oral, NIGHTLY, First dose on Sat11/23/21 at 2100, Until Discontinued, Routine 2035 (Given - Provider: Moise Wolf RN) 2132 (Given - Provider: Moni Watts RN) enoxaparin (Lovenox) (40 mg/0.4 mL) subcutaneous injection 40 mg 40 mg, Subcutaneous, 2 TIMES DAILY, First dose on Sat11/23/21 at 2100, Until Discontinued, Routine 823 (Given - Provider: Mae Vasquez RN)2037 (Given - Provider: Moise Wolf, ARLETTE) 815 (Given - Provider: Iraida Thapa, ARLETTE)2132 (Given - Provider: Moni Watts, ARLETTE) 0957 (Given - Provider: Lilian Maria, ARLETTE) furosemide (Lasix) tablet 60 mg 60 mg, Oral, DAILY, First dose on Sat11/24/21 at 0900, Until Discontinued, Routine 822 (Given - Provider: Mae Vasquez RN) 816 (Given - Provider: Iraida Thapa, ARLETTE) 09 (Given - Provider: Lilian Maria RN) lidocaine (Lidoderm) 5% patch 1 patch(Linked Group 1) 1 patch, Transdermal, EVERY 24 HOURS, First dose on Sat11/23/21 at 1800, Until Discontinued, Apply patch(es) for 12 hours, and then remove for 12 hours., Routine 2035 (Patch Applied - Provider: Moise Wolf RN) 2134 (Patch Applied - Provider: Moni Watts, ARLETTE) lidocaine (Lidoderm) topical patch REMOVAL(Linked Group 1) Transdermal, EVERY 24 HOURS, First dose on Sat11/24/21 at 0900, Until Discontinued, Remove lidocaine 5% patch 0900 (Patch Removed - Provider: Mae Vasquez RN) 09 (Patch Removed - Provider: Iraida Thapa RN) 09 (Patch Not Removed (add comment) - Provider: Lilian Maria RN - Comment: no patch) sodium chloride 0.9 % (flush) (BD PosiFlush Normal Saline 0.9) flush 5 mL 5 mL, Intravenous, 2 TIMES DAILY, First dose on Sat11/23/21 at 2100, Until Discontinued, Routine 823 (Given - Provider: Mae Vasquez RN)2037 (Given - Provider: Moise Wolf, ARLETTE) 816 (Given - Provider: Iraida Thapa, ARLETTE)2136 (Given - Provider: Moni Watts, ARLETTE) 0900 (Given - Provider: Lilian Maria RN) PRN Medication Order 11/27/2021 11/28/2021 11/29/2021 albuteroL (Proventil) nebulizer solution 2.5 mg 2.5 mg, Nebulization, EVERY 4 HOURS PRN, Starting on Sat11/23/21 at 1620, Until Sat11/29/21 at 1344, Shortness of Breath, Routine diazePAM (Valium) (5 mg/mL) injection syringe 5 mg 5 mg, Intravenous, ONCE PRN, 1 dose, Starting on Sat11/23/21 at 1620, Until Sat11/29/21 at 1344, Seizures, give 5mg IV once after 1 generalized tonic clonic seizures or 3 complex partial seizures in 24 hours, or any seizure lasting longer than 5 minutes, push over 1 minutes. (Then page MD for post administration assessment, re-page if no reply after 5 minutes), Routine lidocaine (Xylocaine) 1% (10 mg/mL) injection 3 mg 3 mg (0.3 mL), Subcutaneous, ONCE PRN, 1 dose, Starting on Sat11/23/21 at 1620, Until Sat11/29/21 at 1344, for discomfort with PIV insertion, Routine melatonin tablet 3 mg 3 mg, Oral, NIGHTLY PRN, Starting on 11/27/21 at 0010, Until Sat11/29/21 at 1344, Help to sleep, Routine 16 (Given - Provider: Roberta Whitmore RN) 2132 (Given - Provider: Moni Watts RN) sodium chloride 0.9 % (flush) (BD PosiFlush Normal Saline 0.9) flush 5-20 mL 5-20 mL, Intravenous, EVERY 1 MIN PRN, Starting on Sat11/23/21 at 1620, Until Sat11/29/21 at 1344, flush, Flush pertains to all indwelling lines. Flush per protocol found in the job aid using the link provided on this medication record., Routine Linked Groups Order Group 1: lidocaine (Lidoderm) 5% patch 1 patchJump to med 1 patch, Transdermal, EVERY 24 HOURS, First dose on Sat11/23/21 at 1800, Until Discontinued, Apply patch(es) for 12 hours, and then remove for 12 hours., Routine And lidocaine (Lidoderm) topical patch REMOVALJump to med Transdermal, EVERY 24 HOURS, First dose on Sat11/24/21 at 0900, Until Discontinued, Remove lidocaine 5% patch documented in this encounter Care Teams Machine Setter And Repairer Relationship Specialty Start Date End Date Comfort Urban, MAIL HANDLER ASSISTANT [address] [place] [address] PCP - General Family Medicine 07/19/17 03/11/23 documented as of this encounter
--- OUTSIDE RECORDS SUMMARY | 2023-11-16 14:13 | XMS_ITS | Encounter Summary ---
Author Organization [facility] [place] [address] Care Team Providers Care Shaker Operator Name Role Phone Comfort Urban APRN Primary Care Provider [phone] Encounter Details Date Type Department Care Team (Late st Contact Info) Description 11/10/2021 [place] [phone] Tereso Mohan MD [facility] [place] [address] Social History Tobacco Use Types Packs/Day Years [...] Telephone Encounter - Elizabeth Ledesma RN - 11/10/2021 3:59 PM EDT Spoke with patient. Advised to have the echocardiogram result faxed to our office for Dr. Mohan to review. Verbalized understanding. * Telephone Encounter - Elizabeth Ledesma RN - 11/10/2021 12:24 PM EDT Copied from [facility] #[id number]. Topic: Specialty Dept CRMs - Generic Call >> Nov 10, 2021 12:14 PM Mame Cruz wrote: Specialist: Tereso Mohan MD Relationship (if other than patient-full name): Bessie Levy Reason for Call: Patient would like is Dr. Mohan can either look over her Echocardiogram that wasdone in [place] for a second opinion or if Dr. oMhan can possible send over a referral to see a student success counselor within [facility]. Please advise, thank you. documented in this encounter Plan of Treatment Upcoming Encounters Date Type Department Care Team (Late st Contact Info) Description 12/24/2023 10:00 AM EDT Office Visit Neurology at [place] [phone] Tereso Mohan MD [facility] [place] [address] 12/24/2023 10:30 AM EDT Appointment XRay at [address] [place] [address] Shelby Aaron [facility] [place] [address] 12/24/2023 11:30 AM EDT Office Visit [facility] [place] [address] Shelby Aaron DISPLAY DECORATOR [facility] [place] [address] documented as of this encounter Visit Diagnoses Not on filedocumented in this encounter Care Teams Shaker Operator Relationship Specialty Start Date End Date Comfort Urban APRN [address] [place] [address] PCP - General Family Medicine 07/19/17 03/11/23 documented as of this encounter
--- OUTSIDE RECORDS SUMMARY | 2023-11-16 14:14 | XMS_ITS | Encounter Summary ---
Author Organization [facility] [place] [address] Care Team Providers Care Range Aid Name Role Phone Comfort Urban APRN Primary Care Provider [phone] Reason for Visit * Auth/Cert Specialty Diagnoses / Procedures Referred By Contac t Referred To Contact Diagnoses Lumbar radiculopathy lumbar radiculopathy Procedures PRO INJECTION DX/THER SBST INTRLMNR LMBR/SAC W/IMG GDN INJECTION, EPIDURAL, LUMBAR OR SACRAL (CAUDAL), WITH IMAGING GUIDANCE (WRVU 1.8) Referral ID Status Reason Start Date Expiration Date Visits Re quested Visits Authorized [id number] 1 1 Encounter Details Date Type Department Care Team (Latest Contact Info) Description 05/18/2021 10:33 AM EDT - 05/18/2021 11:15 AM EDT Hospital [place] [address] Sarah Munguia MD [facility] [place] [address] Radiculopathy of lumbar region Discharge Disposition: Home [...] this encounter Discharge Instructions * Discharge Instructions* Nigel Bartlett - 05/18/2021 10:47 AM EDT Pain [facility] Discharge Instructions: You were seen today by Surgeon(s): Sarah Munguia MD Mainkar, Ojas A, MD The following was performed: Procedure(s) (LRB): INJECTION, EPIDURAL, LUMBAR OR SACRAL (CAUDAL), WITH IMAGING GUIDANCE (WRVU 1.8) (Midline) It is normal that the injection site will be sore for up to 48 hours. {CHECK BOX SELECTION:00842} You may also experience mild stiffness in the joint near the injection site. You may resume your normal activities: {Time; today/tomorrow:39513}. You may shower today. DO NOT tub bathe, use whirlpools, hot tubs or pool therapy for 2 days. RemoveBand-Aid(s) later today/tomorrow. Do not drive until tomorrow. Use caution walking/climbing stairs as you may be unsteady on your feet. You may use your usual medications, including pain medications, as directed, unless otherwise instructed. You may use an ice pack as needed for the first 24 hours, on for 20 minutes then off for 20 minutes. Do not apply heat today. Attempt to empty your bladder 4-6 hours after your procedure. {CHECK BOX SELECTION:09366} If you have diabetes, monitor your blood [...] needed. Med Name: CBD oil gabapentin (Neurontin) 100 mg Capsule Take 1 capsule by mouth 3 times daily. 90 capsule 12 04/07/2021 06/05/2021 divalproex EC (Depakote) 250 mg Tablet, Delayed Release (E.C.) TAKE 1 TABLET BY MOUTH TWICE DAILY 190 tablet 1 03/28/2021 06/05/2021 topiramate (Topamax) 200 mg Tablet Take 1 tablet by mouth 2 times daily. 180 tablet 1 11/29/2020 05/23/2021 meloxicam (MOBIC) 15 mg Tablet Take 1 tablet by mouth daily. 30 tablet 12 11/15/2020 12/12/2021 MARIJUANA INHL Inhale into the lungs as needed. 06/05/2021 citalopram (CELEXA) 20 mg Tablet Take 40 mg by mouth daily. 0 02/03/2018 03/12/2023 atorvastatin (LIPITOR) 20 mg Tablet Take 20 mg by mouth nightly. 0 03/05/2018 07/04/2021 FLOVENT HFA 110 mcg/actuation HFA Aerosol Inhaler Inhale 2 puffs into the lungs 2 times daily. 0 03/21/2018 11/08/2021 documented as of this encounter H&P Notes * Renato Moise - 05/17/2021 9:20 PM EDT Patient Name: [...] Take 1 tablet by mouth daily., Disp: 90 tablet, Rfl: 3 ??? gabapentin (Neurontin) 100 mg [...] 2 puffs into the lungs 2 times daily., Disp: , Rfl: 0 ??? UNABLE [...] apparent infection, or other abnormality to the areaof the proposed injection. There are no physical examination findings which would preclude this procedure. ASSESSMENT: Radiculopathy of lumbar region PLAN: Proceed with procedure as planned. Thank you for the opportunity to participate in Bessie Levy's care. Please feel free to contact me with any questions. Sincerely, Renato Moise MD Pain Medicine Fellow documented in this encounter Miscellaneous Notes * Op Note - Sarah Munguia MD - 05/18/2021 11:02 AM EDT Pain Management Operative Note Patient Name: Bessie Levy : [id number] MR#: [id number] Case Date: 05/18/2021 Surgeon: Surgeon(s) and Role: * Sarah Munguia MD - Primary * Renato Moise MD - Fellow Present on Admission: ??? Radiculopathy of lumbar region Postoperative diagnosis: SAME LUMBAR INTERLAMINAR EPIDURAL STERIOID INJECTION PROCEDURE NOTE Ms. Bessie Levy has been referred to the Pain Management Center for a lumbar epidural steroid injection by SELVIN Pur[address] [facility] [place] [address]. The patient complains of low back pain [...] entry point for entering/approaching the right L4-L5 epidural space for the lumbar epidural steroid injection was marked. Following thorough chlorhexadine preparation of the skin and draping and 1% lidocaine infiltration of the skin entry point and subcutaneous tissues, an 18 gauge Touhy needle was placed and advanced under fluoroscopic guidance and with loss of resistance technique into the right L4-L5 epidural space. Needle tip placement and depth were aided and confirmed by fluoroscopy. There was no paresthesia or return of blood or CSF through the ne edle. 2 cc's of Omnipaque 240 was injected (48 cc's was wasted) with clear epidural spread confirmed with fluoroscopy. 80 mg of preservative-free Depomedrol (80 mg/cc) and 2 ml of 1% lidocaine preservative free was injected. This was followed by 1 cc of preservative-free normal saline to flush the s teroid out of the needle. There was not [...] pain and improving her function, it can be completed a maximum of 3 times every 12 months. I was the attending physician supervising the fellow in the above care and I was present with the fellow for the entire procedure. Sarah Munguia MD [facility] Wet Press Tender of Anesthesiology [facility] [employer] [address] [phone] / [facility] CC: Comfort Urban APRN [address] [place] [address] [address] [facility] [place] [address] documented in this encounter Plan of Treatment Upcoming Encounters Date Type Department Care Team (Late st Contact Info) Description 12/24/2023 10:00 AM EDT Office [place] [address] Tereso Mohan MD [facility] [place] [address] 12/24/2023 10:30 AM EDT Appointment XRay at [address] [place] [phone] Shelby Aaron APRN [facility] [place] [address] 12/24/2023 11:30 AM EDT Office Visit [facility] [place] [phone] Shelby Aaron APRN [facility] [place] [address] documented as of this encounter Procedures Procedure Name Priority Date/Time Associated Diagnosis Comments Injection Dx/Ther Sbst Intrlmnr Lmbr/Sac W/Img Gdn (13888) 05/18/2021 11:01 AM EDT Radiculopathy of lumbar region INJECTION, EPIDURAL, LUMBAR OR SACRAL (CAUDAL), WITH IMAGING GUIDANCE Routine 05/18/2021 10:35 AM EDT Radiculopathy of lumbar region documented in this encounter Visit Diagnoses Diagnosis Radiculopathy of lumbar region- Primary Thoracic or lumbosacral neuritis or radiculitis, unspecified documented in this encounter Active and Recently Administered Medications Times are shown in EDT. PRN Medication Order 05/16/2021 05/17/2021 05/18/2021 iohexoL (Omnipaque) (240 mg/mL) solution (CANCELED) ONCE PRN, Starting on Alejandra 05/18/21 at 1105, Until Alejandra 05/18/21 at 1315, Intra-Operative (Intra-Procedure), Routine 1105 (Given - Provid er: Renato Moise) lidocaine (pf) (Xylocaine) (10 mg/mL) 1% injection (CANCELED) ONCE PRN, Starting on Alejandra 05/18/21 at 1105, Until Alejandra 05/18/21 at 1315, Intra-Operative (Intra-Procedure), Routine 1105 (Given - Provid er: Renato Moise) methylPREDNISolone acetate (DEPO-Medrol) (80 mg/mL) injection (CANCELED) ONCE PRN, Starting on Alejandra 05/18/21 at 1105, Until Alejandra 05/18/21 at 1315, Intra-Operative (Intra-Procedure), Routine 1105 (Given - Provid er: Renato Moise) documented in this encounter Care Teams Range Aid Relationship Specialty Start Date End Date Comfort Urban, SELVIN [address] [place] [address] PCP - General Family Medicine 07/19/17 03/11/23 documented as of this encounter
--- OUTSIDE RECORDS SUMMARY | 2023-11-16 14:14 | XMS_ITS | Encounter Summary ---
Author Organization [facility] [place] [address] Care Team Providers Care Software Project Manager Name Role Phone Comfort Urban APRN Primary Care Provider [phone] Encounter Details Date Type Department Care Team (Late st Contact Info) Description 06/20/2021 [place] [phone] [facility] [place] [place] [address] Social History Tobacco Use Types Packs/Day Years [...] Notes * Telephone Encounter - Gabriella Farmer Fabiola - 06/20/2021 3:01 PM EDT Patient confirmed and scheduled for EMU admission for Saturday07/04/21. Patient informed Covid test is needed for admission. Patient informed to call the admissions office on the day of admission at 10am to confirm bed availability and to arrive to clinic for 1pm. Gasket Winder provided admissions officephone number to patient. Gasket Winder will mail out Video EEG pamphlet and Rest Easy pamphlet to patient.Patient stated her boyfriend and mother will be coming in to visit and will be staying overnight locally. She was wondering if her boyfriend would be able to stay overnight with her on a cot though? Kindly call for clinical admission details. documented in this encounter Plan of Treatment Upcoming Encounters Date Type Department Care Team (Late st Contact Info) Description 12/24/2023 10:00 AM EDT [place] [address] [facility] [place] [address] 12/24/2023 10:30 AM EDT Appointment XRay at [address] [place] [address] Shelby Aaron ADVERTISING ASSISTANT MANAGER [facility] [place] [address] 12/24/2023 11:30 AM EDT Office Visit [place] [phone] Shelby Aaron [facility] [place] [address] documented as of this encounter Visit Diagnoses Not on filedocumented in this encounter Care Teams Software Project Manager Relationship Specialty Start Date End Date Comfort Urban APRN [address] [place] [address] PCP - General Family Medicine 07/19/17 03/11/23 documented as of this encounter
--- OUTSIDE RECORDS SUMMARY | 2023-11-16 14:14 | XMS_ITS | Encounter Summary ---
Author [facility] [place] [address] Care Team Providers Care Spray I Painter Name Role Phone Comfort Urban APRN Primary Care Provider [phone] Encounter Details Date Type Department Care Team (Late st Contact Info) Description 05/02/2021 [place] [phone] Tereso Mohan MD [facility] [place] [place] [address] Social History Tobacco Use Types Packs/Day Years [...] to call back for any other concerns. * Telephone Encounter - Palak Howard RN - 05/02/2021 10:12 AM EST Copied from [facility] #[id number]. Topic: Specialty Dept CRMs - Generic Call >> May 02, 2021 9:51 AM Mae Dyer wrote: Specialist:Tereso Moahn MD Reason for Call: Patient called stating [...] unsure if she should reach out t o Dr. Rodriguez or speak with Tereso Mohan MD in regards to having a new referral sent to [facility]. Patient stated she was seen at [facility] about a year ago for a steroid shot and thinksshe may need to repeat it. Please call patient to discuss. documented in this encounter Plan of Treatment Upcoming Encounters Date Type Department Care Team (Late st Contact Info) Description 12/24/2023 10:00 AM EDT [place] [address] Tereso Mohan MD [facility] [place] [place] [address] 12/24/2023 10:30 AM EDT Appointment XRay at [address] [place] [phone] Shelby Aaron MERCHANDISE DISTRIBUTOR [facility] [place] [address] 12/24/2023 11:30 AM EDT Office Visit [place] [phone] Shelby Aaron APRN [facility] [place] [address] documented as of this encounter Visit Diagnoses Not on filedocumented in this encounter Care Teams Spray I Painter Relationship Specialty Start Date End Date Comfort Urban, MERCHANDISE DISTRIBUTOR [address] [place] [address] PCP - General Family Medicine 07/19/17 03/11/23 documented as of this encounter
--- OUTSIDE RECORDS SUMMARY | 2023-11-16 14:14 | XMS_ITS | Encounter Summary ---
Author Organization [facility] [place] [address] Care Team Providers Care Coach Name Role Phone Comfort Urban APRN Primary Care Provider [phone] Encounter Details Date Type Department Care Team (Late st Contact Info) Description 07/28/2021 Telephone [place] [phone] Tereso Mohan MD [facility] [place] [address] Social History Tobacco Use Types Packs/Day Years [...] AM EDT Office [place] [phone] Tereso Mohan MD [facility] [place] [address] 12/24/2023 10:30 AM EDT Appointment XRay at [address] [place] [address] Shelby Aaron, ELECTRIC MOTOR AND GENERATOR ASSEMBLER [facility] [place] [address] 12/24/2023 11:30 AM EDT Office Visit [facility] at [facility] [place] [phone] Shelby Aaron, ELECTRIC MOTOR AND GENERATOR ASSEMBLER [facility] [place] [address] documented as of this encounter Visit Diagnoses Not on filedocumented in this encounter Care Teams Coach Relationship Specialty Start Date End Date Comfort Urban APRN [address] [place] [address] PCP - General Family Medicine 07/19/17 03/11/23 documented as of this encounter
--- OUTSIDE RECORDS SUMMARY | 2023-11-16 14:14 | XMS_ITS | Encounter Summary ---
Author Organization [facility] Address [facility] [place] [address] Care Team Providers Care Foam Caster Name Role Phone Comfort Urban APRN Primary Care Provider [phone] Encounter Details Date Type Department Care Team (Latest Contact Info) Description 10/10/2021 1:22 PM EDT - 10/10/2021 11:59 PM EDT Hospital Encounter XRay at [facility] [place] [address] Charly Wilkins MD [facility] [place] [address] Radiculopathy of lumbar region Discharge Disposition: Home [...] mouth as needed. Med Name: CBD oil predniSONE (Deltasone) 20 mg Tablet 10/09/2021 11/08/2021 [...] 10:00 AM EDT [place] [address] Tereso Mohan MD [facility] [place] [address] 12/24/2023 10:30 AM EDT Appointment XRay at [address] [place] [phone] Shelby Aaron APRN [facility] [place] [address] 12/24/2023 11:30 AM EDT Office Visit [facility] [place] [address] Shelby Aaron APRN [facility] [place] [address] documented as of this encounter Procedures Procedure Name Priority Date/Time Associated Diagnosis Comments XR LUMBAR SPINE 2 OR 3 VIEWS Routine 10/10/2021 1:42 PM EDT Radiculopathy of lumbar region documented in this encounter Results * XR Lumbar Spine 2 Or 3 Views (Generic) (10/10/2021 1:42 PM EDT) Anatomical Region Laterality Modality L-spine N/A Digital Radiogra phy Impressions 10/10/2021 5:01 PM EDT 1. ??Spondylosis of lumbar spine redemonstrated 2. ??Minimal motion at L4-5 is degenerative in nature. Thank you for letting us participate in the care of this patient. ??If you are a health care provider and have any questions regarding this report, please contact the number below. ??For patients who have questions please contact the health lawn care worker that requested your imaging first. ? Narrative 10/10/2021 5:01 PM EDT EXAMINATION: XR LUMBAR SPINE 2 OR 3 VIEWS (GENERIC) CLINICAL HISTORY: Plan for lumbar surgery (laminectomy), flexion/extension and AP views, entered by ordering service TECHNIQUE: 3 views lumbar spine AP [id number] COMPARISON: MRI of lumbar spine, September 2019. FINDINGS: Number of non-rib bearing lumbar-type vertebrae: 5, when the last rib-bearing vertebral body is assigned as T12. Vertebral bodies: No vertebral body height loss Osteophytes arise from lower lumbar facet joints. Disk spaces: Narrow L4-5 disc space. Alignment: L4-5: 7 mm anterolisthesis on flexion and 4 mm on extension. Procedure Note Chelly Allred MD - 10/10/2021 EXAMINATION: XR LUMBAR SPINE 2 OR 3 VIEWS (GENERIC) CLINICAL HISTORY: Plan for lumbar surgery (laminectomy), flexion/extensionand AP views, entered by ordering service TECHNIQUE: 3 views lumbar spine AP [id number] COMPARISON: MRI of lumbar spine, September 2019. FINDINGS: Number of non-rib bearing lumbar-type vertebrae: 5, when the lastrib-bearing vertebral body is assigned as T12. Vertebral bodies: No vertebral body height loss Osteophytes arise from lower lumbar facet joints. Disk spaces: Narrow L4-5 disc space. Alignment: L4-5: 7 mm anterolisthesis on flexion and 4 mm on extension. IMPRESSION 1. Spondylosis of lumbar spine redemonstrated 2. Minimal motion at L4-5 is degenerative in nature. Thank you for letting us participate in the care of this patient. If youare a health care provider and have any questions regarding this report,please contact the number below. For patients who have questions please contactthe health lawn care worker that requested your imaging first. Electronically signed by: Chelly Allred MD, [facility]([phone]), at 10/10/2021 5:01 PM Charly Wilkins MD IMG DX ORDERABLES documented in this encounter Visit Diagnoses Diagnosis Radiculopathy of lumbar region Thoracic or lumbosacral neuritis or radiculitis, unspecified documented in this encounter Care Teams Foam Caster Relationship Specialty Start Date End Date Comfort Urban, RETORT FIREMAN [address] [place] [address] PCP - General Family Medicine 07/19/17 03/11/23 documented as of this encounter
--- OUTSIDE RECORDS SUMMARY | 2023-11-16 14:14 | XMS_ITS | Encounter Summary ---
[place] [address] Care Team Providers Care Carpenter Packing Name Role Phone Comfort Urban APRN Primary Care Provider [phone] Reason for Visit * Reason Onset Date Comments Disability Paperwork 08/31/2021 [place] Paperw ork Encounter Details Date Type Department Care Team (Late st Contact Info) Description 08/31/2021 Tele[place] [address] Tereso Mohan MD [facility] [place] [address] Disability Paperwork ([place] Paperwork) Social History Tobacco Use Types Packs/Day Years [...] 4:24 PM EDT Completed paperwork faxed to [employer]. And copy sent to Medical Records. * Telephone Encounter - Palak Howard RN - 09/01/2021 9:03 AM EDT Form forwarded to provider for completion * Telephone Encounter - Aviva Lopes LNA - 08/31/2021 11:47 AM EDT Records received through [employer] and processed as below: FMLA/Disability Paperwork received via fax and is with flow staff for processing documented in this encounter Plan of Treatment Upcoming Encounters Date Type Department Care Team (Late st Contact Info) Description 12/24/2023 10:00 AM EDT Office [place] [address] Tereso Mohan MD [facility] [place] [address] 12/24/2023 10:30 AM EDT Appointment XRay at [address] [place] [phone] Shelby Aaron AUTOMOBILE ENGINE ASSEMBLER [facility] [place] [address] 12/24/2023 11:30 AM EDT Office Visit [facility] Sp[facility] Center at [place] [address] Shelby Aaron AUTOMOBILE ENGINE ASSEMBLER [facility] [place] [address] documented as of this encounter Visit Diagnoses Not on filedocumented in this encounter Care Teams Carpenter Packing Relationship Specialty Start Date End Date Comfort Urban APRN [address] [place] [address] PCP - General Family Medicine 07/19/17 03/11/23 documented as of this encounter
--- OUTSIDE RECORDS SUMMARY | 2023-11-16 14:14 | XMS_ITS | Encounter Summary ---
Author Organization [facility] Address [facility] [place] [address] Care Team Providers Care Housing Development Specialist Name Role Phone Comfort Urban APRN Primary Care Provider [phone] Reason for Visit * Reason Comments Follow-up Pain was in mid-lowe r back, but has subsided and now is in upper back and neck. Encounter Details Date Type Department Care Team (Late st Contact Info) Description 06/19/2021 2:00 PM EDT Office Visit [place] [phone] Sarah Munguia MD [facility] [place] [address] Chronic pain syndrome; Radiculopathy of lumbar region Social History Tobacco [...] documented in this encounter Progress Notes * Sarah Munguia MD - 06/19/2021 2:00 PM EDT [facility] follow-up visit note Date [...] visit but patient was not able to schedulephysical therapy due to personal reasons. -She continues [...] low back pain problems started insidiously 3 to4 years ago but worsened about a year ago when she started experiencing right leg pain as well. Patient last trialed physical therapy for back pain 2 years ago. Patient is under the care of Dr. Mohan, neurology for her seizure disorder who referred patient to pain clinic for potential lumbar epidural steroid injection. Patient has not trialed any injections previously. Pain location: Right more than left low back pain spreading to buttocks, right lateral thigh, rightlateral calf to right ankle. 50% of pain [...] gabapentin-seizures PT: yes Psychology: no Acupuncture: no home care administrator: no TENS Unit: no Injections: Patient underwent [...] of Pain Questionnaire: Please see the [facility] health questionnaire, which the patient completed and reviewed with me in detail. Review of Electronic Chart: Today I have also reviewed available medical information in the patient's medical record at [facility]), including relevant provider notes, laboratory work, and [...] daily., Disp: 90 tablet, Rfl: 3 ??? meloxicam (MOBIC) 15 mg [...] 2 times daily., Disp: , Rfl: 0 Allergies: No Known [...] tenderness with taut tender muscle bands Neurologic: truck packer - grossly intact Reflexes - 2+ and [...] right paramedian interlaminar epidural steroid injection for about15 months followed by return of pain. Repeat [...] treatment option addressed, and risk/benefits discussed. Self-care instructionsgiven. I am recommending a multidisciplinary treatment plan to help this patient better manage her pain. 1. Physical Therapy: Ordered external physical therapy refresher course referral on last visit but patient was not able to schedule due to personal reasons. She will call to get a new referral when she is ready to start physical therapy. 2. Clinical [...] worsens. Sarah Munguia MD [facility]esthes[facility] [place] [phone] / [facility] CC: Comfort Urban APRN [address] [place] [address] documented in this encounter Plan of Treatment Upcoming Encounters Date Type Department Care Team (Late st Contact Info) Description 12/24/2023 10:00 AM EDT Office Visit Neurology at [place] [phone] Tereso Mohan MD [facility] [place] [address] 12/24/2023 10:30 AM EDT Appointment XRay at [address] [place] [address] Shelby Aaron HAND PICKER [facility] [place] [address] 12/24/2023 11:30 AM EDT Office Visit Pain and Spine Center at [place] [phone] Shelby Aaron HAND PICKER [facility] [place] [address] documented as of this encounter Visit Diagnoses Diagnosis Chronic pain syndrome Radiculopathy of lumbar region Thoracic or lumbosacral neuritis or radiculitis, unspecified documented in this encounter Care Teams Housing Development Specialist Relationship Specialty Start Date End Date Comfort Urban APRN [address] [place] [address] PCP - General Family Medicine 07/19/17 03/11/23 documented as of this encounter
--- OUTSIDE RECORDS SUMMARY | 2023-11-16 14:14 | XMS_ITS | Encounter Summary ---
[place] [address] Care Team Providers Care Manager Medical Name Role Phone Comfort Urban APRN Primary Care Provider [phone] Reason for Referral * Physical Therapy (Routine) - Closed Specialty Diagnoses / Procedures Referred By Contac t Referred To Contact Diagnoses Radiculopathy of lumbar region Sarah Munguia MD [facility] [place] [address] Unknown None Referral ID Status Reason Start Date Expiration Date V isits Requested Visits Authorized [id number] Closed Evaluate and Treat 05/15/2021 11/11/2021 12 12 Reason for Visit * Reason Comments Back Pain Hip Pain Both hips * Consultation (Routine) - Closed Specialty Diagnoses / Procedures Referred By Contjose t Referred To Contact Pain and Spine Center Diagnoses Chronic low back pain, unspecified back pain laterality, unspecified whether sciatica present Comfort Urban APRN [address] [place] [address] [place] [address] [facility] [place] [address] Referral ID Status Reason Start Date Expiration Date V isits Requested Visits Authorized [id number] Closed Consult, Test & Treat 05/11/2021 05/11/2022 6 6 Encounter Details Date Type Department Care Team (Latest Contact Info) Description 05/15/2021 11:00 AM EDT Office Visit [place] [address] Sarah Munguia MD [facility] PAIN [place] [address] Radiculopathy of lumbar region; Chronic pain syndrome Social History Tobacco Use Types Packs/Day Years [...] Progress Notes * Sarah Munguia MD - 05/15/2021 11:00 AM EDT [facility] follow-up visit note Date of visit: 05/15/21 : 1985 Chief Complaint Patient presents with ??? Back Pain ??? Hip Pain Both hips History of Present Illness: Patient was last seen in the clinic on 06/14/2020. Since her last visit, patient reports : -Patient reports experiencing at least 50% pain improvement with L4-L5 right paramedian interlaminar epidural steroid injection done on 01/29/20 tell her [...] gabapentin-seizures PT: yes Psychology: no Acupuncture: no personal carer: no TENS Unit: no Injections: Patient underwent [...] Review of Pain Questionnaire: Please see the [facility] Management Center health questionnaire, which the patient completed and reviewed with me in detail. Review of Electronic Chart: Today I have also reviewed available medical information in the patient's medical record at [facility]([employer]), including relevant provider notes, laboratory work, and [...] tenderness with taut tender muscle bands Neurologic: hand potter - grossly intact Reflexes - 2+ and [...] about15 months followed by return of pain. Patient [...] injection. Sarah Munguia MD [facility] Make Up Operator Helper of Anesthesiology [facility] [address] [phone] / [facility] CC: Comfort Urban APRN [address] [place] [address] [place] [address] documented in this encounter Plan of Treatment Upcoming Encounters Date Type Department Care Team (Late st Contact Info) Description 12/24/2023 10:00 AM EDT [place] [address] Tereso Mohan MD [facility] [place] [address] 12/24/2023 10:30 AM EDT Appointment XRay at [address] [place] [address] Shelby Aaron APRN [facility] [place] [address] 12/24/2023 11:30 AM EDT Office Visit [place] [address] Shelby Aaron APRN [facility] [place] [address] Scheduled Referrals Name Type Priority Associated Diagnoses Orde r Schedule Referral to Physical Therapy Outpatient Referral Routine Radiculopathy of lumbar region Ordered: 05/15/2021 documented as of this encounter Visit Diagnoses Diagnosis Radiculopathy of lumbar region Thoracic or lumbosacral neuritis or radiculitis, unspecified Chronic pain syndrome documented in this encounter Care Teams Manager Medical Relationship Specialty Start Date End Date Comfort Urban APRN [address] [place] [address] PCP - General Family Medicine 07/19/17 03/11/23 documented as of this encounter
--- OUTSIDE RECORDS SUMMARY | 2023-11-16 14:14 | XMS_ITS | Encounter Summary ---
Author Organization [place] [id number] Care Team Providers Care Clinical Trials Systems Administrator Name Role Phone Comfort Urban APRN Primary Care Provider [phone] Reason for Referral * Consultation (Routine) - Closed Specialty Diagnoses / Procedures Referred By Kristan lucio Referred To Contact Pain and Spine Center Diagnoses Chronic low back pain, unspecified back pain laterality, unspecified whether sciatica present Comfort Urban APRN [address] [place] [address] [facility] [place] [place] [address] Referral ID Status Reason Start Date Expiration Date V isits Requested Visits Authorized [id number] Closed Consult, Test & Treat 05/11/2021 05/11/2022 6 6 Encounter Details Date Type Department Care Team (Latest Contact Info) Description 05/11/2021 Transcribe Orders eDH Incoming Referrals [phone] Comfort Urban APRN [address] [place], [place] [id number] Chronic low back pain, unspecified back pain laterality, unspecified whether sciatica present Social History Tobacco Use Types Packs/Day Years [...] 10:00 AM EDT [place] [address] Tereso Mohan MD [facility] [place] [address] 12/24/2023 10:30 AM EDT Appointment XRay at [address] [place] [address] Shelby Aaron COMPUTING TUTOR [facility] [place] [address] 12/24/2023 11:30 AM EDT Office Visit [place] [address] Shelby Aaron COMPUTING TUTOR [facility] [place] [address] Scheduled Referrals Name Type Priority Associated Diagnoses Orde r Schedule Referral to Spine Center Outpatient Referral Routine Chronic low back pain, unspecified back pain laterality, unspecified whether sciatica present Ordered: 05/11/2021 documented as of this encounter Visit Diagnoses Diagnosis Chronic low back pain, unspecified back pain laterality, unspecified whether sciatica present documented in this encounter Care Teams Clinical Trials Systems Administrator Relationship Specialty Start Date End Date Comfort Urban APRN [address] [place] [address] PCP - General Family Medicine 07/19/17 03/11/23 documented as of this encounter
--- OUTSIDE RECORDS SUMMARY | 2023-11-16 14:14 | XMS_ITS | Encounter Summary ---
[place] [address] Care Team Providers Care Snuff Blender Name Role Phone Comfort Urban APRN Primary Care Provider [phone] Reason for Visit * Auth/Cert Specialty Diagnoses / Procedures Referred By Kristan t Referred To Contact Diagnoses Lumbar radiculopathy lumbar radiculopathy Procedures PRO INJECTION DX/THER SBST INTRLMNR LMBR/SAC W/IMG GDN INJECTION, EPIDURAL, LUMBAR OR SACRAL (CAUDAL), WITH IMAGING GUIDANCE (WRVU 1.8) Referral ID Status Reason Start Date Expiration Date Visits Re quested Visits Authorized [id number] 1 1 Encounter Details Date Type Department Care Team (Late Contact Info) Description 05/18/2021 11:00 AM EDT Ancillary [place] [address] Sarah Munguia MD [facility] [place] [address] Social History Tobacco Use Types Packs/Day Years [...] Encounters Date Type Department Care Team (Late Contact Info) Description 12/24/2023 10:00 AM EDT Office [place] [address] Tereso Mohan MD [facility] [place] [address] 12/24/2023 10:30 AM EDT Appointment XRay at [address] [place] [address] Shelby Aaron CHIEF SUSTAINABILITY OFFICER [facility] [place] [place] [address] 12/24/2023 11:30 AM EDT Office Visit [facility] [place] [address] Shelby Aaron CHIEF SUSTAINABILITY OFFICER [facility] [place] [address] documented as of this encounter Procedures Procedure Name Priority Date/Time Associated Diagnosis Comments FILM LIBRARY STORAGE ONLY PAIN CLINIC C ARM Routine 05/18/2021 12:56 PM EDT documented in this encounter Results * Film Library- Storage Only pain Clinic C-Arm (05/18/2021 12:56 PM EDT) Narrative [facility] - 05/18/2021 12:56 PM EDT See PACS for result report. Sarah Munguia MD IMG FILM LIBRARY ORD ERABLES [place], [place] documented in this encounter Visit Diagnoses Not on filedocumented in this encounter Care Teams Snuff Blender Relationship Specialty Start Date End Date Comfort Urban APRN [address] [place] [address] PCP - General Family Medicine 07/19/17 03/11/23 documented as of this encounter
--- OUTSIDE RECORDS SUMMARY | 2023-11-16 14:14 | XMS_ITS | Encounter Summary ---
Author Organization [facility] [address] Care Team Providers Care Broadcast Operations Manager Name Role Phone Comfort Urban APRN Primary Care Provider [phone] Reason for Visit * Reason Onset Date Comments Patient Education 06/29/2021 Encounter Details Date Type Department Care Team (Late st Contact Info) Description 06/29/2021 [place] [address] Tereso Mohan MD [facility] [place] [address] Patient Education Social History Tobacco Use Types Packs/Day Years [...] available for you. Their phone number is [phone]. Sometimes the hospital does not have an available bed and your admission needs to be postponed. Postponing the admission doesn???t happen often, but is a possibility. After admissions has given you the OK to proceed to [facility] for the admission, you will need to arrivein 3C clinic at 1pm. You will have a clinic appointment with the Admitting NeurologyTeam. The Team will go over, in detail, your clinical history. This is to be able to best plan on how to monitor you while you are here.The Team that will see you in clinic [...] nurses will check you in and the battery technician will apply EEG electrodes to your [...] distance calls (calls outside of the local [facility] area). Please bring personal toiletries such as [...] boyfriend. She was instructed to take all of her medications as prescribed and to not to attempt to wean any of her seizure medications. (If the patient is on any of the above medication/medication categories instruct the patient to bring that medication in its medication container to the hospital) There is no smoking on [facility] campus. If you feel this will be [...] She was provided with the phone number ([phone]) to the Neurology Clinic should she have any further questions orconcerns. Bessie verbalized agreement and understanding to all of the above instructions and information. She is aware that she will be COVID tested upon admission. documented in this encounter Plan of Treatment Upcoming Encounters Date Type Department Care Team (Late st Contact Info) Description 12/24/2023 10:00 AM EDT [place] [address] Tereso Mohan MD [facility] [place] [address] 12/24/2023 10:30 AM EDT Appointment XRay at [address] [place] [address] Shelby Aaron APRN [facility] [place] [address] 12/24/2023 11:30 AM EDT Office Visit Pain and Spine Center at [facility] [place] [address] Shelby Aaron, GRAPHICS MANAGER [facility] [place] [address] documented as of this encounter Visit Diagnoses Not on filedocumented in this encounter Care Teams Broadcast Operations Manager Relationship Specialty Start Date End Date Comfort Urban APRN [address] [place] [address] PCP - General Family Medicine 07/19/17 03/11/23 documented as of this encounter
--- OUTSIDE RECORDS SUMMARY | 2023-11-16 14:14 | XMS_ITS | Encounter Summary ---
[place] [address] Care Team Providers Care Orchard Pruner Name Role Phone Comfort Urban APRN Primary Care Provider [phone] Encounter Details Date Type Department Care Team (Latest Contact Info) Description 07/04/2021 1:25 PM EDT - 07/04/2021 3:56 PM EDT Hospital [place] [address] Discharge Disposition: Home Social History Tobacco Use [...] mouth as needed. Med Name: CBD oil topiramate (Topamax) 200 mg Tablet Take 1/2 a pill in AM and 1 pill in PM 180 tablet 1 06/05/2021 11/08/2021 divalproex EC (Depakote) 250 mg Tablet, Delayed Release (E.C.) 250mg in the morning, 500mg nightly 90 tablet 11 06/05/2021 11/29/2021 cloBAZam (Onfi) 10 mg Tablet Take 1 tablet by mouth nightly. 30 tablet 5 06/05/2021 09/05/2021 meloxicam (MOBIC) 15 mg Tablet Take 1 [...] 10:00 AM EDT [place] [address] Tereso Mohan MD [facility] [place] [address] 12/24/2023 10:30 AM EDT Appointment XRay at [address] [place] [address] Shelby Aaron APRN [facility] [place] [address] 12/24/2023 11:30 AM EDT Office Visit [place] [address] Shelby Aaron APRN [facility] [place] [address] documented as of this encounter Visit Diagnoses Not on filedocumented in this encounter Care Teams Orchard Pruner Relationship Specialty Start Date End Date Comfort Urban APRN [address] [place] [address] PCP - General Family Medicine 07/19/17 03/11/23 documented as of this encounter
--- OUTSIDE RECORDS SUMMARY | 2023-11-16 14:14 | XMS_ITS | Encounter Summary ---
Author Organization [facility] [place] [address] Care Team Providers Care Senior Agricultural Assistant Name Role Phone JaydonComfort king APRN Primary Care Provider [phone] Encounter Details Date Type Department Care Team (Late st Contact Info) Description 10/28/2021 Telephone [place] [phone] Uriel Hutton MD [facility] [place] [address] Social History Tobacco Use Types Packs/Day Years [...] encounter Miscellaneous Notes * Telephone Encounter - Uriel Hutton MD - 10/28/2021 4:20 PM EDT ORTHOPAEDIC SURGERY TELEPHONE ENCOUNTER: Bessie Levy is a 36 y.o. female patient of the [facility] with planned L4-5 decompression and instrumented fusion with TLIF who calls due to continued low back pain. She reports this to be making her job at [employer] difficult. Pain medications currently include meloxicam and tylenol. The patient called to inquire about prescription of additional pain medications. I stated that I would be unable to start a new prescription medication over the phone without evaluation. I did offer OTC lidocaine patches as a possible supplementation to her current regimen. If her pain is unbearable, I recommended she present to her nearest ED. I also recommended [facility] on Monday 10/30 if she feels that evaluation for pain management prior tosurgery would be beneficial. The patient expressed understanding and was in agreement with this plan. Uriel Hutton MD Orthopaedic Surgery 7400 documented in this encounter Plan of Treatment Upcoming Encounters Date Type Department Care Team (Late st Contact Info) Description 12/24/2023 10:00 AM EDT Office [place] [phone] Tereso Mohan MD [facility] [place] [address] 12/24/2023 10:30 AM EDT Appointment XRay at [address] [place] [address] Shelby Aaron PRIVACY ATTORNEY [facility] [place] [place] [address] 12/24/2023 11:30 AM EDT Office Visit [facility] [place] [address] Shelby Aaron PRIVACY ATTORNEY [facility] [place] [address] documented as of this encounter Visit Diagnoses Not on filedocumented in this encounter Care Teams Senior Agricultural Assistant Relationship Specialty Start Date End Date Comfort Urban APRN [address] [place] [address] PCP - General Family Medicine 07/19/17 03/11/23 documented as of this encounter
--- OUTSIDE RECORDS SUMMARY | 2023-11-16 14:14 | XMS_ITS | Encounter Summary ---
[place] [address] Care Team Providers Care Elementary Supervisor Name Role Phone Comfort Urban APRN Primary Care Provider [phone] Reason for Visit * Reason Onset Date Comments Advice Only 10/24/2021 PER INSURANCE CA RRIER ALL CPT CODES SCHEDULED DO NOT REQUIRE PRIOR AUTHORIZATION WITH THE EXCEPTION OF CPT CODE 03817 WHICH IS A NONCOVERED, NONPAYABLE CPT CODE. PLEASE ADVISE TO A DECISION REGARDING THIS CPT CODE SO THAT THE CASE CAN BE COMPLETED Encounter Details Date Type Department Care Team (Late st Contact Info) Description 10/24/2021 Telephone [place] [address] Sarah Jackson Advice Only (PER INSURANCE CARRIER ALL CPT CODES SCHEDULED DO NOT REQUIRE PRIOR AUTHORIZATION WITH THE EXCEPTION OF CPT CODE 60319 WHICH IS A NONCOVERED, NONPAYABLE CPT CODE. PLEASE ADVISE TO A DECISION REGARDING THIS CPT CODE SO THAT THE CASE CAN BE COMPLETED) Social History Tobacco Use Types Packs/Day Years [...] 10:00 AM EDT [place] [address] Tereso Mohan MD [facility] [address] 12/24/2023 10:30 AM EDT Appointment XRay at [address] [place] [address] Shelby Aaron, CONTRACTS DIRECTOR [facility] [place] [address] 12/24/2023 11:30 AM EDT Office Visit [facility] and Sp[facility] Center at [facility] [place] [address] Shelby Aaron, CONTRACTS DIRECTOR [facility] [place] [address] documented as of this encounter Visit Diagnoses Not on filedocumented in this encounter Care Teams Elementary Supervisor Relationship Specialty Start Date End Date Comfort Urban APRN [address] [place] [address] PCP - General Family Medicine 07/19/17 03/11/23 documented as of this encounter
--- OUTSIDE RECORDS SUMMARY | 2023-11-16 14:14 | XMS_ITS | Encounter Summary ---
[facility] [place] [address] Care Team Providers Care Prosthetic Technician Name Role Phone Comfort Urban APRN Primary Care Provider [phone] Encounter Details Date Type Department Care Team (Late st Contact Info) Description 09/19/2021 [place] [phone] Tereso Mohan MD [facility] [place] [address] Social History Tobacco Use Types Packs/Day Years [...] Telephone Encounter - Elizabeth Ledesma RN - 09/19/2021 4:11 PM EDT Change in pharmacy. Clobazam prescription request sent to Dr. Mohan for approval. * Telephone Encounter - Renita Salmeron RN - 09/19/2021 4:02 PM EDT Copied from CRM #[id number]. Topic: Specialty Dept CRMs - Medication Issues >> Sep 19, 2021 3:11 PM Moni Wells wrote: Medication Issues Specialist Tereso Mohan MD Relationship (if other than patient-full name): Bessie Levy Reason for call: Medication Issue (if symptom based used Triage Subtopic) Message/information for the nurse: patient is stating she needs med sent over to [facility] that [facility] does not have it in stock, only has 1 pill left Name of Medication: cloBAZam (Onfi) 10 mg Tablet Issue with the medication: only has one pill left and would like it sent over to [facility] documented in this encounter Plan of Treatment Upcoming Encounters Date Type Department Care Team (Late st Contact Info) Description 12/24/2023 10:00 AM EDT Office [place] [address] Tereso Mohan MD [facility] [place] [address] 12/24/2023 10:30 AM EDT Appointment XRay at [address] [place] [address] Shelby Aaron [facility] [place] [address] 12/24/2023 11:30 AM EDT Office Visit [facility] [place] [address] Shelby Aaron GENETICS TEACHER [facility] [place] [address] documented as of this encounter Visit Diagnoses Not on filedocumented in this encounter Care Teams Prosthetic Technician Relationship Specialty Start Date End Date Comfort Urban APRN [address] [place] [address] PCP - General Family Medicine 07/19/17 03/11/23 documented as of this encounter
--- OUTSIDE RECORDS SUMMARY | 2023-11-16 14:14 | XMS_ITS | Encounter Summary ---
[place] [address] Care Team Providers Care Podiatrist Name Role Phone Comfort Urban APRN Primary Care Provider [phone] Reason for Visit * Reason Onset Date Comments Follow-up 08/15/2021 Letter/Form 08/15/2021 Return to work C ertification - Fitness for Duty Encounter Details Date Type Department Care Team (Late st Contact Info) Description 08/15/2021 [place] [address] Tereso Mohan MD [facility] [place] [place] [address] Follow-up ; Letter/Form (Return to work Certification - Fitness for Duty) Social History Tobacco Use Types Packs/Day Years [...] faxed [employer] and to medical records. * Telephone Encounter - Palak Howard RN - 08/18/2021 8:28 AM EDT FMLA paperwork placed in provider mailbox for completion * Telephone Encounter - Saba Lamb LNA - 08/17/2021 1:04 PM EDT Form put into nurses mailbox for completion * Telephone Encounter - Palak Howard RN - 08/15/2021 10:13 AM EDT Return to work Paperwork received via Fax At present paperwork is with sales and support center agent is being filled out Will place in providers box when ready for provider to review and complete. documented in this encounter Plan of Treatment Upcoming Encounters Date Type Department Care Team (Late st Contact Info) Description 12/24/2023 10:00 AM EDT Office Visit Neurology at [place] [phone] Tereso Mohan MD [facility] [place] [address] 12/24/2023 10:30 AM EDT Appointment XRay at [address] [place] [phone] Shelby Aaron APRN [facility] [place] [address] 12/24/2023 11:30 AM EDT Office Visit [place] [phone] Shelby Aaron APRN [facility] [place] [address] documented as of this encounter Visit Diagnoses Not on filedocumented in this encounter Care Teams Podiatrist Relationship Specialty Start Date End Date Comfort Urban, ASSEMBLER [employer] [address] [place] [address] PCP - General Family Medicine 07/19/17 03/11/23 documented as of this encounter
--- OUTSIDE RECORDS SUMMARY | 2023-11-16 14:14 | XMS_ITS | Encounter Summary ---
Author Organization [facility] [place] [address] Care Team Providers Care Improvement Analyst Name Role Phone Comfort Urban APRN Primary Care Provider [phone] Reason for Visit * Reason Onset Date Comments Appointment 06/19/2021 Encounter Details Date Type Department Care Team (Late st Contact Info) Description 06/19/2021 [place] [address] Tereso Mohan MD [facility] [place] [address] Appointment Social History Tobacco Use Types Packs/Day [...] * Telephone Encounter - Gabriella Farmer - 06/20/2021 2:57 PM EDT Patient scheduled for EMU admission for Saturday07/04/21. * Telephone Encounter - Jeri Villalta - 06/19/2021 4:42 PM EDT Bessie returning the call to schedule this appointment. This agent was unable to reach the executive legal secretary. Please call Bessie back to schedule. * Telephone Encounter - Gabriella Farmer - 06/19/2021 [...] 10:00 AM EDT Office Visit Neurology at [place] [phone] Tereso Mohan MD [facility] [place] [place] [address] 12/24/2023 10:30 AM EDT Appointment XRay at [address] [place] [address] Shelby Aaron [facility] [place] [address] 12/24/2023 11:30 AM EDT Office Visit [facility] at [place] [phone] Shelby Aaron WOOL PRESSER [facility] [place] [address] documented as of this encounter Visit Diagnoses Not on filedocumented in this encounter Care Teams Improvement Analyst Relationship Specialty Start Date End Date Comfort Urban APRN [address] [place] [address] PCP - General Family Medicine 07/19/17 03/11/23 documented as of this encounter
--- OUTSIDE RECORDS SUMMARY | 2023-11-16 14:14 | XMS_ITS | Encounter Summary ---
Author [facility] [place] [address] Care Team Providers Care Wool Presser Name Role Phone JaydonComfort king CALCINE FURNACE LOADER Primary Care Provider [phone] Encounter Details Date Type Department Care Team (Late st Contact Info) Description 10/16/2021 Telephone [facility] [place] [phone] Anjelica Crisostomo RN Social History Tobacco Use [...] Telephone Encounter - Anjelica Crisostomo RN - 10/16/2021 2:17 PM EDT Received voicemail message from patient reporting that she was evaluated at Urgent care/PCPs officefor the leg edema following her appointment with Dr. Wilkins on 10/10/2021 and it was determined thatshe has CHF and an enlarged heart. She has been in contact with her Bottle Inspector at the [facility] and is going to have an echo done. Patient has history of ASD repair at age 16, states shewas doing well at last Cardiology appointment in May 2021. She is concerned about this impacting her pending surgery 11/20/2021. Patient aware that she will need medical clearance from her PCP and her Bottle Inspector before surgery can occur. Patient will keep us updated as she proceeds with her Cardiac workup. Shelly Cheney OR slaughterer religious ritual updated. documented in this encounter Plan of Treatment Upcoming Encounters Date Type Department Care Team (Late st Contact Info) Description 12/24/2023 10:00 AM EDT Office Visit Neurology at [place] [phone] Tereso Mohan MD [facility] [place] [address] 12/24/2023 10:30 AM EDT Appointment XRay at [address] [place] [phone] Shelby Aaron [facility] [place] [address] 12/24/2023 11:30 AM EDT Office Visit [facility] [place] [phone] Shelby Aaron [facility] [place] [address] documented as of this encounter Visit Diagnoses Not on filedocumented in this encounter Care Teams Wool Presser Relationship Specialty Start Date End Date Comfort Urban APRN [address] [place] [address] PCP - General Family Medicine 07/19/17 03/11/23 documented as of this encounter
--- OUTSIDE RECORDS SUMMARY | 2023-11-16 14:14 | XMS_ITS | Encounter Summary ---
[place] [address] Care Team Providers Care Pediatric Licensed Practical Nurse Name Role Phone Comfort Urban APRN Primary Care Provider [phone] Reason for Referral * Diagnostic Test (Routine) - Closed Specialty Diagnoses / Procedures Referred By Contac t Referred To Contact Radiology Diagnoses Radiculopathy of lumbar region Congenital anomalies of spine Spondylolisthesis at L4-L5 level Procedures CT Lumbar Spine wo Contrast (Generic) Charly Wilkins MD [facility] [place] [address] [facility] [place] [address] Referral ID Status Reason Start Date Expiration Date V isits Requested Visits Authorized [id number] Closed Specialty Service Requested 10/22/2021 04/24/2023 1 1 Reason for Visit * Reason Comments Back Pain Lower backBilateral leg pain with swelling and rashWith incontinency issues Encounter Details Date Type Department Care Team (Latest Contact Info) Description 10/10/2021 11:20 AM EDT Office Visit [place] [phone] Charly Wilkins MD [facility] [place] [address] Radiculopathy of lumbar region; Congenital anomalies of [...] Sign Reading Time Taken Comments Blood Pressure 142/82 10/10/2021 11:15 AM EDT Pulse 77 10/10/2021 11:15 AM EDT Temperature - - Respiratory Rate - - Oxygen Saturation - - Inhaled Oxygen Concentration - - Weight 90.7 kg (200 lb) 10/10/2021 11:15 AM EDT Height 154.9 cm (5' 1) 10/10/2021 11:15 AM EDT Body Mass Index 37.79 10/10/2021 11:15 AM EDT documented in this encounter Progress Notes * Satish Ram MD - 10/10/2021 11:20 AM EDT [facility] Initial Consultation Note Date of visit: 10/10/21 : 1985 Consulting Physician: Seeing at the request of Comfort Urban APRN [address] [place] [address]. Chief Complaint: Low back pain History of Present Illness: Bessie Levy is a 35 y.o. female with a history of low back pain with associated 40 pound weight gain and bilateral lower extremity swelling. Patient reports over the past few months she has had a nearly 40 pound weight gain and bilateral lower extremity swelling with associated episodes of lower back pain with bilateral paresthesias. Unable to describe the location of the paresthesias in the lower extremities, more diffuse in nature into the bilateral feet. Alsohas associated shortness of breath as she describes labored breathing at times. Progressively getting worse Has also had episodes of bladder incontinence as well as involuntary flatulence. Is also being followed by neurology for epilepsy and is taking depakote. Denies any recent falls or trauma. No night sweats, chills or fevers. On 09/19 as per eDH recrods: Patient has a longstanding history of low back pain for several months. Patient originally presented to [facility] on 09/13 due to acute worsening of this low back pain after an episode of heavy lifting.An MRI obtained at that time demonstrated mild L4/L5 canal stenosis as well as moderate left L4/L5 foraminal stenosis. However there is no evidence of significant cord compression at this time. According to referring provider patient was reportedly sensorimotor intact at this time. Patient was discharged and demonstrating improvement on steroids. ?? However, patient represented to [facility] today due to worsening low back pain over the past 48 hours. This pain is reportedly accompanied by bilateral lower extremity tingling, left groin tingling, intermittent small volumes of urinary incontinence as well as involuntary release of flatulence. On clinical exam the referring provider also endorses diminished left plantar flexion as well as several centimeters of proximal left medial thigh decreased sensation. Patient has reportedly intact rectal tone. ?? In the context of these new symptoms, I recommended that the provider obtain a new MRI without contrast to assess for interval change that would explain the symptoms. Based on the MRI obtained from 09/13 there is no central cord compression that would explain bowel/bladder dysfunction or cauda equina syndrome. Chart review: Today I have reviewed available medical information in the patient's medical record at [facility] including relevant provider notes, laboratory work, and [...] medical history on file. Past Surgical History: Past Surgical History: Procedure Laterality Date ??? PRO INJECTION DX/THER SBST INTRLMNR LMBR/SAC W/IMG GDN Midline 05/18/2021 INJECTION, EPIDURAL, LUMBAR OR SACRAL (CAUDAL), WITH IMAGING GUIDANCE (WRVU 1.8) performed by Sarah Munguia MD at [facility] PA[facility] MGMT MSO Medications: Medications were reconciled and updated in the electronic medical record. Current Outpatient Medications: ??? predniSONE (Deltasone) 20 mg Tablet, , Disp: , Rfl: ??? methocarbamoL (Robaxin) 500 mg Tablet, TAKE ONE TABLET BY MOUTH EVERY 6 HOURS NEEDED FOR MUSCLE SPASM, Disp: , Rfl: ??? cloBAZam (Onfi) 10 mg Tablet, Take 1 pill in AM and 2 pills in PM, Disp: 90 tablet, Rfl: 5 ??? divalproex EC (Depakote) 250 mg Tablet, Delayed Release (E.C.), 250mg in the morning, 500mg nightly, Disp: 90 tablet, Rfl: 11 ??? cholecalciferol, Vitamin D3, 50 mcg [...] ??? citalopram (CELEXA) 20 mg Tablet, Take 40 mg by mouth daily., Disp: , Rfl: 0 ??? UNABLE TO FIND, Take by mouth as needed. Med Name: CBD oil, Disp: , Rfl: ??? topiramate (Topamax) 200 mg Tablet, Take 1/2 a pill in AM and 1 pill in PM (Patient not taking:Reported on 10/10/2021), Disp: 180 tablet, Rfl: 1 ??? FLOVENT HFA 110 mcg/actuation HFA Aerosol Inhaler, Inhale 2 puffs into the lungs 2 times daily., Disp: , Rfl: 0 Allergies: No Known Allergies Social History: Social History Tobacco Use ??? Smoking status: Never Smoker ??? Smokeless tobacco: Never Used Vaping Use ??? Vaping Use: Never used Substance Use Topics ??? Alcohol use: Never ??? Drug use: Yes Types: Marijuana Comment: marijuana use daily pt vapes marijuana Family history: No family history on file. Physical Exam: Blood pressure 142/82, pulse 77, height 154.9 cm (5' 1), weight 90.7 kg (200 lb). General: Well-nourished, well-developed, female in no acute distress Respiratory: Non-labored breathing pattern on RA. No respiratory distress Cardiovascular: 3+ pitting edema in the bilateral lower extremities Abdominal: Soft, non-tender to palpation, distended Skin: No appreciable rashes or skin breakdown Psych: Appropriate affect, answers questions appropriately Bilateral hand tremors noted at rest. Neurologic: Motor - Able to heel and tiptoe walk. Segment Action Right Left Shoulder abduction 5/5 5/5 C5 Elbow Flexion 5/5 5/5 C6 Wrist Extension 5/5 5/5 C7 Elbow Extension 5/5 5/5 C8 Finger Flexion 5/5 5/5 T1 Finger Abduction 5/5 5/5 Segment Action Right Left L2 Hip Flexion 5/5 5/5 L3 Knee Extension 5/5 5/5 L4 Ankle Dorsiflexion 5/5 5/5 L5 Long Toe Extension 5/5 5/5 S1 Ankle Plantarflexion 5/5 5/5 (segments are from the International Standards for Neurological Classification of Spinal Cord Injury) Reflexes: Segment Reflex Right Left C5-6 Biceps 2+ 2+ C5-6 Brachioradialis 2+ 2+ C7-8 Triceps 2+ 2+ L3-4 Patella 2+ 2+ S1-2 Achilles 2+ 2+ (0=absent, 1=slight response, 2=brisk/normal, 3=very brisk, 4=clonus) Upper Motor Neuron Signs: Reflex Right Left Babinski's Downgoing Downgoing Delgado's Negative Negative Clonus None None Sensory - Intact to light touch and pinprick at bilateral upper and lower extremities. Gait/Station - Wide based Diagnostic Tests: Most recent L spine MRI was completed at outside facility I personally reviewed the images with the patient. Assessment: Bessie Levy is a 35 y.o. female with a PMH including previous ASD closure at 16 years old at [facility], epilepsy, and chronic radicular low back pain who is presenting today for evaluation of radicular pain. Prior to surgical intervention, will need surgical clearance from neurology as well as PCP. 1. Radiculopathy of lumbar region Plan/Recommendations: We reviewed etiology, predisposing factor(s), natural course, imaging results as well as treatment options including medications, physical therapy/exercise, therapeutic injections, and surgery. The risks, consequences, alternatives, and benefits of various treatment options were discussed with the patient in great detail. - XRAY lumbar flexion/extension ordered - Plan for surgical intervention after medical clearance is obtained. - Education: Cauda equina and associated symptoms, including motor weakness, bowel/bladder dysfunction, and perineal numbness were discussed. The patient was instructed to report to the Emergency department, if these symptoms occur. Thank you for allowing us the opportunity to participate in Bessie Levy's care. Satish Ram MD MPH Pain Fellow Assessment and plan discussed with the attending physician Dr. Wilkins. CC: Comfort Urban APRN [address] [place] [address] * Charly Wilkins MD - 10/10/2021 11:20 AM EDT Images from the original note were not included. [facility] Charly Wilkins MD MS Comfort Urban APRN [address] [place] [address] Comfort Urban APRN [address] [place] [address] Dear Colleagues, I had the pleasure of seeing this patient at the [facility] for surgical evaluation. Patient seen in conjunction with the anesthesia pain fellow. Please see his clinical notes for details. Reviewed this is a 35-year-old female for whom we received transfer center because on 09/13/2021 as well as 09/19/2021. She presented with low back pain longstanding increasing with heavy lifting. She went to the emergency department. MRI showed L4-5 stenosis with some foraminal stenosis. She is motor intact. She then represented on 09/19/2021 with groin and tingling and urinary incontinence. Decreased left patellar reflex. New MRI was obtained which reviewed by me. This showed L4-5 foraminal stenosis and moderate L4-5 central stenosis. Space available for the cord anterior posterior is 11.4 mm.In the past she has had epidural steroid injections with Dr. Munguia. Please see his notes for review and conservative work-up. She has however other complaints such as 3 to 4 months of 40 pound weight gain with pitting edema in her lower extremities. She has a resting tremor associated with her Depakote. EMG and nerve conduction study is scheduled. Prognostic factors she has a BMI of 37 no narcotics. Non-smoker. Diabetic. Hemoglobin A1c she has not had 1 recently according to her. Her last seizure was in May 2001. Her bilateral lower extremity pitting edema is concerning. We asked her to see her PCP sooner rather than later. Weight gain is also a worrisome finding. If she can be cleared for surgical intervention there consideration for posterior L4-5 decompression. We discussed the risk and benefits of that procedure including CSF leak infection persistent symptoms infection further surgery as well as others. She understands that it will not help back pain and will only help her radicular symptoms. This is not an emergent or urgent situation as she does not have any symptoms of cauda equina. Moreover her stenosis is not severe enough to be associated with cauda equina syndrome. However: X-rays were reviewed after the visit but on the same day and 10/10/2021 patient has a 7 mm listhesis of L4 on 5. 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 Further evaluation is required. As a preoperative study with congenital abnormal morphology at thelumbosacral junction for surgery it would involve L5 CT scan without contrast is required to delineate the anatomy for preoperative planning. The patient will have to return for follow-up or telehealth discussion around the surgical intervention. 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 Proposed procedure posterior L4-5 decompression instrumented fusion with TLIF. Needs to obtain clearance from primary care provider as well as neurology. All questions were answered. Consents reviewed and signed. Sincerely, Charly Wilkins MD [facility] Press Puller - Orthopedic Spine Surgery Straightening Machine Feeder - Department of Orthopedic Surgery / [employer]ics and Research Technical Associate - [facility] 10/22/2021 Spine Center Response Trends Patient-reported scores: myD-H Spine Questionnaire responses 10/10/2021 Oswestry Disability Index (Range: 0-100) 52 (Severe disability) PROMIS-10 Physical Health Score 29.6 PROMIS-10 Mental Health Score 43.5 documented in this encounter Plan of Treatment Upcoming Encounters Date Type Department Care Team (David hernandez Contact Info) Description 12/24/2023 10:00 AM EDT [place] [phone] Tereso Mohan MD [facility] [place] [address] 12/24/2023 10:30 AM EDT Appointment XRay at [address] [place] [phone] Shelby Aaron, SELVIN [facility] [place] [address] 12/24/2023 11:30 AM EDT Office Visit [place] [phone] Shelby Aaron, SELVIN [facility] [place] [address] documented as of this encounter Results * [...] who have questions please contact the health housekeeper child care that requested your imaging first. ? Narrative [...] patients who have questions please contactthe health housekeeper child care that requested your imaging first. Charly Wilkins MD IMG DX ORDERABLES * CT Lumbar Spine wo Contrast (Generic) [...] who have questions please contact the health housekeeper child care that requested your imaging first. ? Narrative 10/31/2021 11:53 AM EDT EXAMINATION: CT [...] patients who have questions please contactthe health housekeeper child care that requested your imaging first. Charly Wilkins MD IMG CT ORDERABLES * XR Lumbar Spine 2 Or 3 [...] who have questions please contact the health housekeeper child care that requested your imaging first. ? Narrative 10/10/2021 5:01 PM EDT EXAMINATION: XR LUMBAR SPINE 2 OR 3 VIEWS (GENERIC) CLINICAL HISTORY: Plan for lumbar surgery (laminectomy), flexion/extension and AP views, entered by ordering service TECHNIQUE: 3 views lumbar spine AP [id number] COMPARISON: MRI of lumbar spine, September 2019. [...] service TECHNIQUE: 3 views lumbar spine AP [id number] COMPARISON: MRI of lumbar spine, September 2019. [...] patients who have questions please contactthe health housekeeper child care that requested your imaging first. 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
--- OUTSIDE RECORDS SUMMARY | 2023-11-16 14:14 | XMS_ITS | Encounter Summary ---
Author Organization [facility] [place] [address] Care Team Providers Care Assisted Living Home Director Name Role Phone JaydonComfort king SELVIN Primary Care Provider [phone] Encounter Details Date Type Department Care Team (Latest Contact Info) Description 05/15/2021 Travel Social History Tobacco Use [...] 10:00 AM EDT Office [place] [address] Tereso Mohan MD [facility] [address] 12/24/2023 10:30 AM EDT Appointment XRay at [address] [place] [address] Shelby Aaron APRN [facility] [place] [address] 12/24/2023 11:30 AM EDT Office Visit [facility] [place] [address] Shelby Aaron APRN [facility] [place] [address] documented as of this encounter Visit Diagnoses Not on filedocumented in this encounter Care Teams Assisted Living Home Director Relationship Specialty Start Date End Date Comfort Urban APRN [address] [place] [address] PCP - General Family Medicine 07/19/17 03/11/23 documented as of this encounter
--- OUTSIDE RECORDS SUMMARY | 2023-11-16 14:14 | XMS_ITS | Encounter Summary ---
Author Organization [facility] [place] [address] Care Team Providers Care International Sales Representative Name Role Phone Comfort Urban APRN Primary Care Provider [phone] Encounter Details Date Type Department Care Team (Late st Contact Info) Description 09/19/2021 10:10 AM EDT Ancillary Procedure Radiology Library at [place] [address] Comfort Urban APRN [address] [place] [address] Social History Tobacco Use Types Packs/Day Years [...] 10:00 AM EDT Office Visit Neurology at [facility] [place] [phone] Tereso Mohan MD [facility] [place]UROLOG[place] [address] 12/24/2023 10:30 AM EDT Appointment XRay at [address] [place] [phone] Shelby Aaron APRN [facility] [place] [address] 12/24/2023 11:30 AM EDT Office Visit [facility] at [facility] [place] [address] Shelby Aaron PRIMARY COUNSELOR [facility] [place] [address] documented as of this encounter Procedures Procedure Name Priority Date/Time Associated Diagnosis Comments FILM LIBRARY STORAGE ONLY MR SPINE Routine 09/19/2021 10:05 AM EDT documented in this encounter Results * Film Library- Storage Only MR Spine (09/19/2021 10:05 AM EDT) Narrative [facility] - 09/19/2021 10:05 AM EDT This exam is auto-finalizing. It's purpose is for storage only. Comfort Urban APRN IM FILM LIBRARY ORD ERABLES [place], [place] documented in this encounter Visit Diagnoses Not on filedocumented in this encounter Care Teams International Sales Representative Relationship Specialty Start Date End Date Comfort Urban APRN [address] [place] [address] PCP - General Family Medicine 07/19/17 03/11/23 documented as of this encounter
--- OUTSIDE RECORDS SUMMARY | 2023-11-16 14:14 | XMS_ITS | Encounter Summary ---
Author Organization [facility] [place] [address] Care Team Providers Care Freelance Makeup Artist Name Role Phone Comfort Urban APRN Primary Care Provider [phone] Reason for Visit * Auth/Cert Specialty Diagnoses / Procedures Referred By Kristan t Referred To Contact Diagnoses Lumbar radiculopathy lumbar radiculopathy Procedures PRO INJECTION DX/THER SBST INTRLMNR LMBR/SAC W/IMG GDN INJECTION, EPIDURAL, LUMBAR OR SACRAL (CAUDAL), WITH IMAGING GUIDANCE (WRVU 1.8) Referral ID Status Reason Start Date Expiration Date Visits Re quested Visits Authorized [id number] 1 1 Encounter Details Date Type Department Care Team (Late st Contact Info) Description 05/18/2021 11:00 AM EDT - 05/18/2021 11:30 AM EDT [place] [address] Sarah Munguia MD [facility] [place] [address] INJECTION, EPIDURAL, LUMBAR OR SACRAL (CAUDAL), WITH IMAGING GUIDANCE (WRVU 1.8) Social History Tobacco Use Types Packs/Day Years [...] Discharge Instructions * Discharge Instructions* Nigel Bartlett H - 05/18/2021 10:47 AM EDT Pain Management Center Discharge Instructions: You were seen today by Surgeon(s): Sarah Munguia MD Mainkar, Ojas A, MD The following was performed: Procedure(s) (LRB): INJECTION, EPIDURAL, LUMBAR OR SACRAL (CAUDAL), WITH IMAGING GUIDANCE (WRVU 1.8) (Midline) It is normal that the injection site will be sore for up to 48 hours. {CHECK BOX SELECTION:05013} You may also experience mild stiffness in the joint near the injection site. You may resume your normal activities: {Time; today/tomorrow:68152}. You may shower today. DO NOT tub [...] 4-6 hours after your procedure. {CHECK BOX SELECTION:85209} If you have diabetes, monitor your blood [...] Operative Note Patient Name: Bessie Levy : [id number] MR#: [id number] Case Date: 05/18/2021 Surgeon: Surgeon(s) and Role: * Sarah Munguia MD - Primary * Renato Moise MD - Fellow Present on Admission: ??? Radiculopathy of lumbar region Postoperative diagnosis: SAME LUMBAR INTERLAMINAR EPIDURAL STERIOID INJECTION PROCEDURE NOTE Ms. Bessie Levy has been referred to the Pain Management Center for a lumbar epidural steroid injection by SELVIN [address] [place] [address]. The patient complains of low back pain [...] procedure. Sarah Munguia MD [facility] Inspection Engineer of Anesthesiology [facility] [address] [address] / [facility] CC: SELVIN [address] [place] [address] documented in this encounter Plan of Treatment Upcoming Encounters Date Type Department Care Team (Late st Contact Info) Description 12/24/2023 10:00 AM EDT Office [place] [address] Tereso Mohan MD [facility] [place] [address] 12/24/2023 10:30 AM EDT Appointment XRay at [address] [place] [address] Shelby Aaron FINANCIAL ADMINISTRATION OFFICER [facility] [place] [address] 12/24/2023 11:30 AM EDT Office Visit [facility] [place] [phone] Shelby Aaron FINANCIAL ADMINISTRATION OFFICER [facility] [place] [address] documented as of this encounter Procedures Procedure Name Priority Date/Time Associated Diagnosis Comments Injection Dx/Ther Sbst Intrlmnr Lmbr/Sac W/Img Gdn (73823) 05/18/2021 11:01 AM EDT Radiculopathy of lumbar [...] Dose Rate Site iohexoL (Omnipaque) (240 mg/mL) solution ONCE PRN, Starting on Alejandra 05/18/21 at 1105, Until Alejandra 05/18/21 at 1315, Intra-Operative (Intra-Procedure), Routine Given 05/18/2021 11:05 AM EDT 2 mLs lidocaine (pf) (Xylocaine) (10 mg/mL) 1% injection ONCE PRN, Starting on Alejandra 05/18/21 at 1105, Until Alejandra 05/18/21 at 1315, Intra-Operative (Intra-Procedure), Routine Given 05/18/2021 11:05 AM EDT 1 mL methylPREDNISolone acetate (DEPO-Medrol) (80 mg/mL) injection ONCE PRN, Starting on Alejandra 05/18/21 at 1105, Until Alejandra 05/18/21 at 1315, Intra-Operative (Intra-Procedure), Routine Given 05/18/2021 11:05 AM EDT 80 mg documented in this encounter Active and Recently [...] Moise) documented in this encounter Care Teams Freelance Makeup Artist Relationship Specialty Start Date End Date Comfort Urban, SELVIN [address] [place] [address] PCP - General Family Medicine 07/19/17 03/11/23 documented as of this encounter
--- OUTSIDE RECORDS SUMMARY | 2023-11-16 14:14 | XMS_ITS | Encounter Summary ---
[facility] Organization [facility] [place] [address] Care Team Providers Care Department Of Mathematics Chair Name Role Phone Comfort Urban APRN Primary Care Provider [phone] Encounter Details Date Type Department Care Team (Late st Contact Info) Description 04/10/2021 [place] [address] Tereso Mohan MD [facility] [place] [address] Social History Tobacco Use Types Packs/Day Years [...] 10:00 AM EDT Office [place] [address] Tereso Mohan MD [facility] [place] [address] 12/24/2023 10:30 AM EDT Appointment XRay at [address] [place] [address] Shelby Aaron, [facility] [address] 12/24/2023 11:30 AM EDT Office Visit [facility] [place] [address] Shelby Aaron, [employer] ATTENDANT [facility] [place] [address] documented as of this encounter Visit Diagnoses Not on filedocumented in this encounter Care Teams Department Of Mathematics Chair Relationship Specialty Start Date End Date Comfort Urban APRN [address] [place] [address] PCP - General Family Medicine 07/19/17 03/11/23 documented as of this encounter
--- OUTSIDE RECORDS SUMMARY | 2023-11-16 14:14 | XMS_ITS | Encounter Summary ---
Author Organization [facility] [place] [address] Care Team Providers Care Irrigation Supervisor Name Role Phone Comfort Urban APRN Primary Care Provider [phone] Encounter Details Date Type Department Care Team (Late st Contact Info) Description 05/03/2021 12:20 PM EST Ancillary Procedure Radiology Library at [facility] [place] [phone] Remedios Bird MD [facility] [address] Social History Tobacco Use Types Packs/Day Years [...] 10:00 AM EDT Office Visit Neurology at [facility] [place] [phone] Tereso Mohan MD [facility] [address] 12/24/2023 10:30 AM EDT Appointment XRay at [address] [place] [phone] Shelby Aaron DISPLAY SCREEN FABRICATOR [facility] [place] [address] 12/24/2023 11:30 AM EDT Office Visit [facility] [place] [address] Shelby Aaron DISPLAY SCREEN FABRICATOR [facility] [place] [place] [address] documented as of this encounter Procedures Procedure Name Priority Date/Time Associated Diagnosis Comments FILM LIBRARY STORAGE ONLY CT HEAD Routine 05/03/2021 12:16 PM EST documented in this encounter Results * Film Library- Storage Only CT Head (05/03/2021 12:16 PM EST) Narrative [facility] - 05/03/2021 12:16 PM EST This exam is auto-finalizing. It's purpose is for storage only. Remedios Bird MD IMG FILM LIBRARY O RDERABLES [place], [place] documented in this encounter Visit Diagnoses Not on filedocumented in this encounter Care Teams Irrigation Supervisor Relationship Specialty Start Date End Date Comfort Urban APRN [address] [place] [address] PCP - General Family Medicine 07/19/17 03/11/23 documented as of this encounter
--- OUTSIDE RECORDS SUMMARY | 2023-11-16 14:14 | XMS_ITS | Encounter Summary ---
Author Organization [facility] [place] [address] Care Team Providers Care Line Manager Name Role Phone Comfort Urban APRN Primary Care Provider [phone] Encounter Details Date Type Department Care Team (Late st Contact Info) Description 06/05/2021 3:00 PM EDT [place] [address] Tereso Mohan MD [facility] [place] [address] Seizures Social History Tobacco Use Types Packs/Day [...] cm (5' 1) 06/05/2021 2:56 PM EDT r eported Body Mass Index 30.8 06/05/2021 2:56 PM EDT documented in this encounter Patient Instructions * Patient Instructions* Tereso Mohan MD - 06/05/2021 3:44 PM EDT [...] we would reduce your medications and try toprovoke some events and see what is happening electrically in your brain. That can guide further treatment In the meantime, please get some blood test done here today. Based just on what you are telling me,please make the following adjustments Please do not smoke marijuana. You can continue the CBD Please stop the gabapentin completely Please continue Depakote at the increased dose of 1 pill in the morning 2 pills at night Please reduce the dose of topiramate slightly from 1 pill twice a day to half a pill in the morningand 1 pill at night. Reducing the dose of topiramate may help the numbness in her hands. If it doesnot please call in 1 to 2 weeks. [...] months. Tereso Mohan MD Professor of neurology, [facility] Department of Neurology, [address] Pager: [phone], #[phone] Email: [email or web address] documented in this encounter Progress Notes * Tereso Mohan MD - 06/05/2021 3:00 PM [...] that led to her being taken to [facility] emergency room. She had bitten side [...] able to continue working full-time at the [employer]. As of 2020 she is doing quite well. She had one breakthrough convulsive seizure associated with missed doses of medication. She has had no other major medical problems. 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 She is having some mid [...] twice daily to 250, 500 mg at [facility]. There have been no additional events in the past month. She continues to have a mild tremor that is somewhat worse since increasing Depakote She continues to have musculoskeletal pain in the neck and back. He is better following another lumbar epidural steroid injection. She has a new complaint which is numbness in the fingertips of 4 fingers but not the thumb. This isbilateral and came on quite suddenly. She does not describe cervical radicular symptoms.. The new symptoms do not extend beyond the fingertips. She does not have weakness or loss of coordination. Amberstconcepción works at the [employer] and is quite busy with her hands. Wrist splints have not made much difference. She does not have bowel or bladder dysfunction. There is no change in her gait. 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 Currently working at the [employer]. ?? Family history: There is no family [...] response was flexor bilaterally. ?? Cerebellar: Normal ketusv-[id number] with mild action tremor. ?? Gait: gait [...] of a rather high dose of topiramate. I am checking levels today, but have advised to [...] EEG monitoring, and also back in clinic in 3 months, or sooner if necessary. I have asked her to call in 1 to 2 weeks to report the results of adjustments in her medications. Tereso Mohan [place] [address] Pager #[phone] Email: [email or web address] CC: Comfort Urban APRN documented in this encounter Miscellaneous Notes * Addendum Note - Sunita Newman - 06/05/2021 3:00 PM EDTAddended by: SUNITA NEWMAN on: 06/05/2021 04:05 PM Modules accepted: Orders documented in this encounter Plan of Treatment Upcoming Encounters Date Type Department Care Team (Late st Contact Info) Description 12/24/2023 10:00 AM EDT [place] [address] Terseo Mohan MD [facility] [place] [address] 12/24/2023 10:30 AM EDT Appointment XRay at [address] [place] [address] Shelby Aaron, COOK 3 PASTRY [facility] [place] [place] [address] 12/24/2023 11:30 AM EDT Office Visit [facility] at [facility] [place] [address] Shelby Aaron APRN [facility] [place] [address] documented as of this encounter Procedures Procedure Name Priority Date/Time Associated Diagnosis Comments SCAN, PERIPHERAL BLOOD Routine 06/05/2021 4:20 PM EDT HEMOGRAM Routine 06/05/2021 4:20 PM EDT Seizures DIFFERENTIAL, AUTOMATED Routine 06/05/2021 4:20 PM EDT Seizures [facility] CARNITINE Routine 06/05/2021 4:20 PM EDT Seizures [facility] TOPIRAMATE Routine 06/05/2021 4:2 0 PM EDT Seizures HC CBC,PLT & AUTO DIFF Routine 06/05/2021 4:20 PM EDT Seizures HC AMMONIA, PLASMA Routine 06/05/2021 4: 20 PM EDT Seizures HC VALPROIC ACID Routine 06/05/2021 4:20 PM EDT Seizures HEPATIC FUNCTION PANEL Routine 06/05/2021 4:20 PM EDT Seizures BASIC METABOLIC PANEL Routine 06/05/2021 4:20 PM EDT Seizures documented in this encounter Results * Scan, Peripheral Blood (06/05/2021 4:20 PM EDT) Plat estimate Normal [facility] RBC Morphology Normal [facility] Blood 06/05/2021 4:20 PM EDT 06/05/2021 4:27 PM EDT Narrative Resulting Agency Comment Spec In Lab Tereso Mohan MD HEMATOLOGY ORDERABLE S [facility] [place] [address] * (ABNORMAL) Differential, Automated (06/05/2021 4:20 PM EDT) Neutrophil % 47.2 % [facility] Neutrophil Absolute 4.04 1.70 - 6.10 x10(3)/ L [facility] Lymph % 31.9 % [facility] Lymphocytes Abs 2.7 0.9 - 3.2 x10(3)/ L [facility] Monocyte % 13.6 % [facility] Monocyte Abs 1.2(H) 0.3 - 0.9 x10(3)/ L [facility] Eos % 5.6 % [facility] Eosinophils Abs 0.5(H) 0.0 - 0.4 x10(3)/[facility] Basophil % 1.1 % [facility] Baso Absolute 0.1 0.0 - 0.1 x10(3)/ L [facility] Immature Gran % 0.60 % [facility] Comment: Immature granulocytes(IG's)percentage and absolute count will include metamyelocytes, myelocytes, and promyelocytes. Blood smears from CBCs yielding IG's will be scanned manually for concordance. If this scan disagrees with the automated IG or if promyelocytes are noted, a manual differential will be performed. Immature Gran Absolute 0.05(H) 0.00 - 0.04 x10(3)/mc L [facility] Blood 06/05/2021 4:20 PM EDT 06/05/2021 4:27 PM EDT Narrative Resulting Agency Comment Spec In Lab Tereso Mohan MD HEMATOLOGY ORDERABLE S [facility] [place] [address] * Hemogram (06/05/2021 4:20 PM EDT) White Blood Cell 8.6 4.0 - 9.5 x10(3)/[facility] Red Blood Cell 4.38 4.00 - 5.21 x10(6)/[facility] Hemoglobin 13.2 11.7 - 15.5 g/dL [facility] Hematocrit 39.2 35.7 - 45.8 % [facility] Mean Cell Volume 89.5 82.6 - 94.4 fL [facility] Mean Cell Hemoglobin 30.1 27.1 - 32.0 pg [facility] Mean Cell Hemoglobin Concentration 33.7 31.7 - 35.0 g/dL [facility] Platelet 270 145 - 357 x10(3)/[facility] RDW Standard Deviation 38.5 37.0 - 46.0 [facility] RDW coefficient of variation 11.8 11.5 - 14.1 % [facility] Mean Platelet Volume 9.2 7.6 - 12.9 [facility] NRBC% auto 0.0 % [facility] NRBC Absolute 0.000 0.000 - 0.000 x10(3)/[facility] Blood 06/05/2021 4:20 PM EDT 06/05/2021 4:27 PM EDT Narrative Resulting Agency Comment Spec In Lab Tereso Mohan MD HEMATOLOGY ORDERABLE S [facility] [place] [address] * Carnitine (06/05/2021 4:20 PM EDT) Carnitine Test ?Result ?Flag ??Unit ? RefValue --- Carnitine, S ??Total ? 53 ?nmol/mL ??34-78 ??Free (FC) ? 44 ?nmol/mL ??25-54 ??Acylcarnitine (AC) ?9 ? nmol/mL ??5-30 ??AC/FC Ratio ? 0.2 ?0.1-0.8 ??Interpretation ?In this sample, the carnitine profile was normal. ? --ADDITIONAL INFORMATION-------- ?This test was developed and its performance characteristics ?determined by [facility] in a manner consistent with CLIA ?requirements. This test has not been cleared or approved by ?the U.S. Food and Drug Administration. ?Test Performed by: ?[facility] ?[address] [place] [address] ?Industrial Waste Inspector: Tito King M.D. Ph.D.; CLIA# [id number] [facility] Blood 06/05/2021 4:20 PM EDT 06/06/2021 3:15 PM EDT Narrative Resulting Agency Comment Spec In Lab Tereso Mohan MD LAB SEND OUT ORDERAB LES Performing Organization Address [facility] Co de Phone Number [facility] [place] [address] * Ammonia (06/05/2021 4:20 PM EDT) Ammonia 45 11 - 51 mcmol/L [facility] Blood 06/05/2021 4:20 PM EDT 06/05/2021 4:25 PM EDT Narrative Resulting Agency Comment Spec In Lab Tereso Mohan MD CHEMISTRY ORDERABLES Performing Organization Address [facility] de Phone Number [facility] [place] [address] * Topiramate level (06/05/2021 4:20 PM EDT) Topiramate Lvl (JULY) 11.3 mcg/mL [facility] Comment: REFERENCE VALUE Reference values depend on clinical use: Anticonvulsant: 5.0-20.0 mcg/mL Psychiatric: 2.0-8.0 mcg/mL ADDITIONAL INFORMATION This test was developed and its performance characteristics determined by [facility] in a manner consistent with CLIA requirements. This test has not been cleared or approved by the U.S. Food and Drug Administration. Test Performed by: [facility] [address] [place] [address] Industrial Waste Inspector: Tito King M.D. Ph.D.; CLIA# [id number] Blood 06/05/2021 4:20 PM EDT 06/06/2021 8:45 AM EDT Narrative Resulting Agency Comment Spec In Lab Treeso Mohan MD LAB SEND OUT ORDERAB LES Performing Organization Address [facility] Co de Phone Number [facility] [place] [address] * Valproic Acid Level, Total (06/05/2021 4:20 PM EDT) Valproic Acid 55 mg/L [facility] Comment: Therapeutic Range: Anticonvulsant Therapy: ??50-100 mg/L Manic Episodes Associated with Bipolar Disorder: ??50-125 mg/L Blood 06/05/2021 4:20 PM EDT 06/05/2021 4:27 PM EDT Narrative Resulting Agency Comment Spec In Lab Tereso Mohan MD CHEMISTRY ORDERABLES Performing Organization Address [facility] Co de Phone Number [facility] [place] [address] * (ABNORMAL) Basic Metabolic Panel (non-fasting) (06/05/2021 4:20 PM EDT) Glucose 91 65 - 199 mg/dL [facility] Comment:Diabetes: >=200 mg/d L plus symptoms Blood Urea Nitrogen 14 8 - 18 mg/dL [facility] Creatinine 0.69(L) 0.70 - 1.20 mg/dL [facility] Sodium 139 135 - 145 mmol/L [facility] Potassium 4.0 3.5 - 5.0 mmol/L [facility] Comment: Please note: ??Patients with WBC >100,000 may have falsely elevated Potassium levels. ??For accurate Potassium quantification in these patients send serum separator tube (gold top) for subsequent determinations. ??Contact the Clinical Chemistry Laboratory if there are any questions. Chloride 111(H) 98 - 107 mmol/L [facility] Carbon Dioxide 18(L) 22 - 31 mmol/L [facility] Anion Gap 10 5 - 15 mmol/L [facility] Calcium 8.8 8.5 - 10.5 mg/dL [facility] Est Glomerular Filtration Rate 111 >=60 mL/min/1. 73 m?? [facility] Comment: This patient? s estimated glomerular filtration rate (eGFR) is between 111 mL/min/1.73 m2 (patients with less muscle mass) and 129 mL/min/1.73 m2 (patients with more muscle mass) as determined by the CKD-EPI equation. Assessment of eGFR is not appropriate when creatinine concentrations are rapidly changing. For clinical decisions where creatinine clearance will affect therapy, a 24-hour urine creatinine clearance may be advised. Assignment of CKD stage 1 - 5 for patients with an eGFR near the transition point between stages may be based on clinical assessment of muscle mass and symptoms in addition to eGFR. Blood 06/05/2021 4:20 PM EDT 06/05/2021 4:27 PM EDT Narrative Resulting Agency Comment Spec In Lab Tereso Mohan MD CHEMISTRY ORDERABLES [facility] [place] [address] * (ABNORMAL) Hepatic Function Panel (06/05/2021 4:20 PM EDT) Protein, Total 6.7 6.1 - 8.0 g/dL [facility] Albumin 3.8 3.2 - 5.2 g/dL [facility] Aspartate Aminotransferase 13 0 - 30 unit/L [facility] Alanine Aminotransferase 14 0 - 30 unit/L [facility] Alkaline Phosphatase 33(L) 35 - 105 unit/L [facility] Bilirubin, Total <0.2(L) 0.2 - 1.3 mg/dL [facility] Bilirubin, Direct 0.1 0.0 - 0.3 mg/dL [facility] Blood 06/05/2021 4:20 PM EDT 06/05/2021 4:27 PM EDT Narrative Resulting Agency Comment Spec In Lab Tereso Mohan MD CHEMISTRY ORDERABLES [facility] [place] [id number] documented in this encounter Visit Diagnoses Diagnosis Seizures Other convulsions documented in this encounter Care Teams Line Manager Relationship Specialty Start Date End Date Comfort Urban, SELVIN [address] [facility] [place] [address] PCP - General Family Medicine 07/19/17 03/11/23 documented as of this encounter
--- OUTSIDE RECORDS SUMMARY | 2023-11-16 14:14 | XMS_ITS | Encounter Summary ---
[place] [address] Care Team Providers Care Yard Motor Operator Name Role Phone Comfort Urban APRN Primary Care Provider [phone] Reason for Visit * Auth/Cert Specialty Diagnoses / Procedures Referred By Contac t Referred To Contact Diagnoses Refractory Seizures Procedures VEEG Referral ID Status Reason Start Date Expiration Date Visits Re quested Visits Authorized [id number] 1 1 Encounter Details Date Type Department Care Team (Latest Contact Info) Description 07/04/2021 3:57 PM EDT - 07/11/2021 11:56 AM EDT Hospital Encounter [address] [place] [address] Tereso Mohan MD [facility] [place] [address] Ming Arguello Jr., MD [facility] [place] [address] Seizure-like activity Discharge Disposition: Home Social History Tobacco Use [...] 36.7 ??C (98.1 ??F) 07/11/2021 7:56 AM ED T Respiratory Rate 18 07/11/2021 7:56 AM EDT Oxygen Saturation 97% 07/11/2021 7:56 AM EDT Inhaled Oxygen Concentration - - Weight 79.3 kg (174 lb 13.2 oz) 07/04/2021 4:13 PM EDT Height 154.9 cm (5' 1) 07/04/2021 4:13 PM EDT Body Mass Index 33.03 07/04/2021 4:13 PM EDT documented in this encounter Discharge Summaries * Lorin Guevara, MIXING TUMBLER OPERATOR - 07/11/2021 10:15 AM EDT Images from the original note were not included. [facility] Epilepsy Monitoring Unit Discharge Summary Patient Name: eBssie Levy Patient Age: 35 y.o. Language: Greenlandic Race: White Ethnicity: Not nor Admit date: [...] author(s) of this discharge summary through the [facility] Cinema Operator . Discharge Diagnoses (Hospital Problems) and Secondary [...] than 5 minutes ?[x]???Prior psych treatment - [place], about 3-4 years ago ?[]???History of sz [...] Bachelor is communication and journalism ?? Working: [employer] ?? Household: 2 Kids and self Physical [...] VEEG: EEG: ?- Routine EEG: Done at [facility] 08/08/18: Normal study. ?- Routine EEG: Done at [facility] 05/05/18: Normal study. 2019 MRI: ?- MRI [...] placed and video EEG monitoring was initiated. In order to precipitate seizure activity Depakote was held upon admission. She had no events overnight, EEG was normal and her Topamax and Onfi were decreased by half the following day, no seizures occurred overnight and both were discontinued at that time. That night the patient reported a BRANNON and worsening tremors which sometimes precede seizures.Her symptoms were not improved with ibuprofen, and she received migraine cocktail (Mg, Tylenol, comp azine, benadryl) with minimal effect. She was monitored off medications with no typical events occurring. Her medications were restarted on 07/10/21, headache improved. She was discharged in stable condition on 07/10/21. As none of patient's typical events in [...] QTC Calculated (Bezet) ms 425 Calculated P [place] degrees 48 Calculated R [place] degrees 69 Calculated T [place] degrees 92 INTERPRETATION Normal sinus rhythm T [...] in the Epilepsy Monitoring Unit by the [facility] Clinical Neurophysiology Laboratory. The 10/20 international [...] discharge with broad field was seen, most likely business representative of a K-complex. Example on 07/09/2021 at [...] PCR Not Detected Not Detected SARS-CoV-2 Source BUSINESS PROCESS SPECIALIST Swab EKG 12 Lead Collection Time: 07/04/21 6:54 PM COVID-19 PCR Collection Time: 07/07/21 7:50 PM Specimen: Nasopharyngeal Swab Symptoms->Surveillance Result Value Ref Range SARS-CoV-2 RNA Not Detected Not Detected SARS-Cov-2 RNA Source BUSINESS PROCESS SPECIALIST Swab Pending Studies and Lab Data: No [...] Administered Date(s) Administered ??? Influenza Vaccine (Novel) [id number], Injectable 04/26/2009 ??? Influenza Vaccine, Whole 04/26/2009 [...] have had a positive experience at the [facility] Epilepsy Monitoring Unit. Here is some general [...] ??? Check with your provider before taking hfvy-btv-gjeksfr medications or herbal therapies. These can interfere with how well your seizure medications work. FOLLOWUP APPOINTMENT: You will have an outpatient followup appointment in the neurology clinic at [facility]. If not already listed in this document, we will contact you to schedule this appointment. -- If 1 week passes by after you are discharged and you still do not have an appointment, please call [phone]. Future Appointments and Orders Future Appointments and Orders Future Appointments Provider Department Dept Phone 09/05/2021 4:30 PM Tereso Mohan MD Neurology at [facility] Arrive at: Gaming Department Head Area 3C [phone] Specific instructions related to your condition: ??? [...] machinery, such as chainsaws. ??? Driving restrictions: [place] Residents: According to [place] driving laws, after you have experienced an episode of loss of consciousness due to a seizure you cannot drive for a minimum of 1 year or until cleared by your physician. We strongly recommend that you avoid driving cars, recreational vehicles or heavy machinery and seek alternate transportation. [[place]. [place]AF-C 205.08] For more information, please visit [email or web address]-Zacb-jh-[email or web address].cfm [place] Residents: According to [place] driving laws, after you have experienced an episode of lossof consciousness due to a seizure you may not be able drive until cleared by your physician with final approval depending upon the [place] Commissioner. We strongly recommend that you avoid driving cars, recreational vehicles or heavy machinery and seek alternate transportation. [Statute: 23 [place]. STAT. MAIKEL. ? 636-37] For more information, please visit [email or web address] ?? Diet: As before. For questions regarding this document or issues relating to this hospitalization on the Neurology Service, please contact your inpatient physician through the [facility] Cinema Operator . Issues after hours and on weekends will be handled by the Neurology staff on-call. General Instructions None Future Appointments and Orders Future Appointments and Orders Future Appointments Provider Department Dept Phone 09/05/2021 4:30 PM Tereso Mohan MD Neurology at [facility] Arrive at: Gaming Department Head Area 3C [phone] Primary Care Provider: Comfort Urban APRN [address] / [place] [address] Discharge References/Attachments None documented in this encounter Discharge Instructions * Patient Instructions* Lorin Guevara, MIXING TUMBLER OPERATOR - 07/11/2021 8:16 AM EDT After Visit Summary: (Please ensure patient gets a copy of their full discharge summary as well.) We hope that you have had a positive experience at the [facility] Epilepsy Monitoring Unit. Here is some general [...] medication. Check with your provider before taking jaut-xzc-qiipaxe medications or herbal therapies. These can interfere with how well your seizure medications work. FOLLOWUP APPOINTMENT: You will have an outpatient followup appointment in the neurology clinic at [facility]. If not already listed in this document, we will contact you to schedule this appointment. -- If 1 week passes by after you are discharged and you still do not have an appointment, please call [phone]. Future Appointments and Orders Future Appointments and Orders Future Appointments Provider Department Dept Phone 09/05/2021 4:30 PM Tereso Mohan MD Neurology at [facility] Arrive at: Gaming Department Head Area 3C [phone] Specific instructions related to your condition: Call [...] heavy machinery, such as chainsaws. D[place] restrictions: [place] Res[place] According to [place] laws, after you have experienced an episode of loss of consciousness due to a seizure you cannot drive for a minimum of 1 year or until cleared by your physician. We strongly recommend that you avoid driving cars, recreational vehicles or heavy machinery and seek alternate transportation. [[place]AF-C 205.08] For more information, please visit [email or web address]-Wwkv-ga-State.cf[facility] Residents: According to [place] driving laws, after you have experienced an episode of lossof consciousness due to a seizure you may not be able drive until cleared by your physician with final approval depending upon the [place] Commissioner. We strongly recommend that you avoid driving cars, recreational vehicles or heavy machinery and seek alternate transportation. [Statute: 23 [place] STAT. MA[place]. ? 636-37] For more information, please visit [email or web address]/Arxprqz-Mknn-ww-[email or web address].cfm Diet: As before. For questions regarding this document or issues relating to this hospitalization on the Neurology Service, please contact your inpatient physician through the [facility] Cinema Operator . Issues after hours and on weekends [...] 03/21/2018 11/08/2021 documented as of this encounter Progress Notes * Lorin Guevara APRN - 07/11/2021 9:26 AM EDT [facility] Comprehensive Epilepsy Center EPILEPSY MONITORING UNIT- PROGRESS NOTE Bessie Levy: 35 y.o.: [id number]: Referring Provider: Comfort Urban APRN: PT ID: [...] appear normal. Restarted ASMs yesterday, plan to dischargetoday, Plan # Admit to neurology ?? 24 [...] today CODE STATUS: Full Lorin Guevara APRN [facility] Epilepsy Program Department of Neurology Epilepsy Team Pager #[phone] ?? Total time greater than 35 minutes which was spent on pre-charting, reviewing results of diagnosticstudies, patient care coordination/discharge planning as well as [...] while off of this drug several days. Etiology of seizure-like spells not clear, but epilepsy remains high on the differential, along with syncope. Pt being discharged to home today, please see summary for details. * Lorin Guevara APRN - 07/10/2021 7:40 AM EDT [facility] Epilepsy Center EPILEPSY MONITORING UNIT- PROGRESS NOTE Bessie Levy: 35 y.o.: [id number]: Referring Provider: Comfort Urban APRN: PT ID: [...] tomorrow CODE STATUS: Full Lorin Guevara APRN [facility] Epilepsy Program Department of Neurology Epilepsy Team Pager #[phone] ? Total time greater than 35 minutes which was spent on pre-charting, reviewing results of diagnosticstudies, patient care coordination/discharge planning as well as patient education and counseling. Associated attestation - Ming Arguello Jr., MD - 07/10/2021 2:33 PM EDT I saw and evaluated the patient with Cady Guevara APRN. Headache is pretty bad this am. Still no seizures, and EEG remains essentially normal. Discussed restarting medications today, and plan for d/final inspector truck trailer home tomorrow. Etiology still unclear. * Ming Arguello Jr., MD - 07/09/2021 11:21 AM EDT [facility] Comprehensive Epilepsy Center EPILEPSY MONITORING UNIT- PROGRESS NOTE Bessie Levy: 35 y.o.: [id number]: Referring Provider: Comfort Urban APRN: PT ID: [...] CODE STATUS: Full Ming Arguello Jr, MD [facility] Epilepsy Program Department of Neurology Epilepsy Team Pager #[phone] ? * Ming Arguello Jr., MD - 07/08/2021 10:20 AM EDT [facility] Comprehensive Epilepsy Center EPILEPSY MONITORING UNIT- PROGRESS NOTE Bessie Levy: 35 y.o.: [id number]: Referring Provider: Comfort Urban APRN: PT ID: [...] CODE STATUS: Full Ming Arguello Jr, MD [facility] Epilepsy Program Department of Neurology Epilepsy Team Pager #[phone] ? * Bessie Acharya, MIXING TUMBLER OPERATOR - 07/07/2021 11:35 AM EDT [facility] Comprehensive Epilepsy Center EPILEPSY MONITORING UNIT- PROGRESS NOTE Bessie Levy: 35 y.o.: [id number]: Referring Provider: Comfort Urban APRN: PT ID: [...] Course CODE STATUS: Full Bessie Acharya APRN [facility] Epilepsy Program Department of Neurology Epilepsy Team Pager #[phone] ?? Total time greater than 35 minutes which was spent on pre-charting, reviewing results of diagnosticstudies, patient care coordination/discharge planning as well as patient education and counseling. ?? Associated attestation - Ming Arguello Jr., MD - 07/07/2021 1:52 PM EDT I saw and evaluated the patient with Bessie Acharya APRN. No seizures, and EEG remains normal. Headache is 4/10 this am, will try ibuprofen as this has helped in the past. Tylenol is reported to beineffective. Ming Arguello MD, PhD [facility], Department of Neurology 07/07/2021 1:50 PM * Eldon Craig RN - 07/06/2021 6:04 PM [...] button on door side of room. * Eldon Craig RN - 07/06/2021 3:26 PM EDT OUTCOME EVALUATION NOTE: ?? OUTCOME SUMMARY: ?? Patient is neurologically unchanged; vEEG underway, no events today. VSS on RA. Chronic pain treated with scheduled medications. Safety rounding complete. PLAN MOVING [...] EVALUATION: ?? Continue care plan as documented. * Bessie Acharya APRN - 07/06/2021 10:06 AM EDT [facility] Comprehensive Epilepsy Center EPILEPSY MONITORING UNIT- PROGRESS NOTE Bessie Levy: 35 y.o.: [id number]: Referring Provider: Comfort Urban APRN: PT ID: [...] Course CODE STATUS: Full Bessie Acharya APRN [facility] Epilepsy Program Department of Neurology Epilepsy Team Pager #[phone] ?? Total time greater than 35 minutes which was spent on pre-charting, reviewing results of diagnosticstudies, patient care coordination/discharge planning as well as patient education and counseling. ?? Associated attestation - Ming Arguello Jr., MD - 07/07/2021 1:53 PM EDT I saw and evaluated the patient with Bessie Acharya APRN. No seizures, and EEG remains to appear to be normal. Will continue to monitor. * Argelia Cobos - 07/05/2021 11:52 AM EDT [...] 07/04/2021 BILIDIR 0.1 06/05/2021 HA1C 5.2 04/07/2021 [id number] 188 (H) 04/07/2021 25OHVITD 5 (L) 04/07/2021 [...] Relevant medications: Vitamin D3 Last Bowel Movement: (correctional captain) Admit Weight: 79.3 kg Estimated body mass index is 33.03 kg/m?? as calculated from the following: Height as of this encounter: 154.9 cm (5' 1). Weight as of this encounter: 79.3 kg (174 lb 13.2 oz). [place] Body Weight: 47.7 kg Usual Body Weight: [...] kg (163 lb) Assessment: Estimated needs: Calories: 6112-0946 (20-25 kcal/kg) Protein: 70-95 grams (1.5-2 g/kg IBW) Nutrition Focused Physical Exam (NFPE): Not performed Nutrition intake and intake history/Interview: 07/05: Pt seen for MST evaluation. She reported a good appetite and was having some snacks brought infor her. Per pt she had lost had [...] identified (Mulugeta, JPEN J Parenteral Enteral Nutr. 2011; 36(3): 273-83) Nutrition to continue to follow up while inpatient Argelia Cobos Die Repairer Forging * Lorin Guevara APRN - 07/05/2021 10:44 AM EDT [facility] Comprehensive Epilepsy Center EPILEPSY MONITORING UNIT- PROGRESS NOTE Bessie Levy: 35 y.o.: [id number]: Referring Provider: Comfort Urban APRN: PT ID: [...] Course CODE STATUS: Full Lorin Guevara APRN [facility] Epilepsy Program Department of Neurology Epilepsy Team Pager #[phone] ?? Total time greater than 35 minutes which was spent on pre-charting, reviewing results of diagnosticstudies, patient care coordination/discharge planning as well as patient education and counseling. ?? Associated attestation - Ming Arguello Jr., MD - 07/05/2021 1:47 PM EDT I saw and evaluated the patient with Cady Guevara APRN. Admitted to EMU yesterday afternoon, VPA stopped. No seizures, tremor seems a little better this am. No seizures, will continue to monitor. Ming Arguello MD, PhD [facility], Department of Neurology 07/05/2021 1:47 PM * Marguerite Miramontes, RN - 07/04/2021 4:10 PM EDT Bessie Levy arrived to 508 @ 1600 from Clinic. Oriented to room, call ignacio within reach, educated on importance of using prior to getting OOB, AVSS, belongings updated in eDH, bed locked in low position, purposeful hourly rounding, bed/chair alarm on. documented in this encounter H&P Notes * Lorin Guevara APRN - 07/04/2021 2:25 PM EDT [facility] Comprehensive Epilepsy Center EPILEPSY MONITORING UNIT- ADMISSION H&P Referring Provider: Dr. Mohan PCP: Comfort Urban APRN Presenting Diagnosis/Chief Complaint: differential diagnosis/characterization of events, concerningfor seizures. History of Present Illness/Description of Symptoms: [...] 5 minutes [x] Prior psych treatment - [place], about 3-4 years ago [] History of [...] like she is doing well. 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 Driving: Y ??? Contraception/ Folic Acid: Tubal ??? Vitamin D: Y ??? Level of Education: HS, Bachelor is communication and journalism ??? Working: [employer] ??? Household: 2 Kids and self Data: Prior workup: VEEG: EEG: ?- Routine EEG: Done at [facility] 08/08/18: Normal study. ?- Routine EEG: Done at [facility] 05/05/18: Normal study. MRI: ?- MRI brain [...] 1.8) performed by Sarah Munguia MD at [facility] No current facility-administered medications [...] EEG monitoring for further evaluation and differential diagnosis/carmen cterization of events, concerning for seizures. 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 In order to precipitate seizure activity antiepileptic [...] CODE STATUS: Full Lorin John SELVIN Guevara [facility] Epilepsy Program Team Pager: [phone] Total time greater than 70 minutes which [...] but they sound very much like epileptic seizures.These continue despite 3 ASMs, thus will admit to EMU to attempt to better understand these events.Discussed procedure in detail and we are in agreement to move forward. documented in this encounter Procedure Notes * Nitin Rodrigez MD - 07/11/2021 11:56 AM EDTAssociated Order(s): VIDEO EEG MONITORING Images from the original note were not included. [facility] Department [...] medications with variable degree of control of episodes.? [...] 15 ?[]?Meningoencephalitis ?[]? complications??-??,??she had no complication afterbirth??and had normal development ?[]?Complex febrile seizures ?[x]?Family [...] investigations: EEG: ?- Routine EEG: Done at [facility]??08/08/18: Normal study. ?- Routine EEG: Done at [facility] 05/05/18: Normal study. 2019 MRI: ?- MRI [...] discharge with broad field was seen, most likely business representative of a K-complex. Example on 07/09/2021 at [...] events of headaches seen that did not representepileptic seizures and may have been the result of withdrawing her topamax and depakote. We did notcapture the events of feeling spacey and dumb that could progress to a convulsion so we cannot comment on the etiology of those. No epileptiform discharges or seizures were seen during her entirerecording. Her K-complexes are conspicuous for their broad field, but did not appear to be evolvingin the setting of ASM withdraw in a manner to suggest a latent/treated primary generalized epilepsy. If she continues to have events, can consider a repeat EMU admission. She will continue to follow up with Dr. Mohan. Discharge seizure medications: Restarted her home medications of Depakote 250mg/500mg + Topamax 100mg/200mg + Onfi 10mg QHS Nitin Rodrigez MD Clinical Neurophysiology Fellow * Nitin Rodrigez MD - 07/11/2021 8:43 AM EDT [facility] Department of Neurology Inpatient Video EEG Report [...] 250/500mg (07/04) Onfi 10 mg nightly-->5mg nighty (/) --> off (07/07) Topamax 100mg/200mg --> 50mg/100mg [...] in the Epilepsy Monitoring Unit by the [facility] Clinical Neurophysiology Laboratory. The 10/20 international [...] discharge with broad field was seen, most likely business representative of a K-complex. Example on 07/09/2021 at [...] discharges or seizures seen thus far. Her K-complexes are conspicuous for their broad [...] the assessment above. Ming Arguello MD, PhD [facility], Department of Neurology 07/12/2021 9:19 AM * Nitin Rodrigez MD - 07/10/2021 5:00 AM EDT [facility] Department of Neurology Inpatient Video EEG Report [...] in the Epilepsy Monitoring Unit by the [facility] Clinical Neurophysiology Laboratory. The 10/20 international [...] discharge with broad field was seen, most likely business representative of a K-complex. Example on 07/09/2021 at [...] seen thus far. No further events captured. Nitin Rordigez MD Clinical Neurophysiology Fellow Associated attestation - [...] primary generalized epilepsy. Ming Arguello MD, PhD [facility], Department of Neurology 07/10/2021 2:48 PM * Jake Garces MD - 07/09/2021 10:54 AM EDT [facility] Department of Neurology Inpatient Video EEG Report [...] in the Epilepsy Monitoring Unit by the [facility] Clinical Neurophysiology Laboratory. The 10/20 international [...] discharge with broad field was seen, most likely business representative of a K-complex. Abnormal Interictal Activity None [...] the assessment above. Ming Arguello MD, PhD [facility], Department of Neurology 07/09/2021 11:25 AM * Jake Garces MD - 07/07/2021 6:23 PM EDT [facility] Department of Neurology Inpatient Video EEG Report [...] in the Epilepsy Monitoring Unit by the [facility] Clinical Neurophysiology Laboratory. The 10/20 international system of electrode placement was used and bipolar and referential electrode montages were recorded. In addition to EEG the patient was monitored for EKG and lateral/vertical eye movements. Video was recorded during the session. ELECTROENCEPHALOGRAPHER'S REPORT Background During the awake state with the eyes closed the background consisted of a moderate amplitude, 10 Hzposterior reactive rhythm that attenuated appropriately with eye [...] vertex sharp waves, and diffuse delta slowing. Abnormal Interictal Activity None Clinical [...] of headaches on prior recording that did notrepresent epileptic seizures. No epileptiform discharges or seizures seen thus far. No further events captured. Jake Garces MD Clinical Neurophysiology Fellow Associated attestation - Ming Arguello Jr., MD - 07/08/2021 12:10 PM EDT I have reviewed the EEG with the fellow and agree with the assessment above. Ming Arguello MD, PhD [facility], Department of Neurology 07/08/2021 12:10 PM * Nitin Rodrigez MD - 07/07/2021 2:05 PM EDT [facility] Department of Neurology Inpatient Video EEG Report [...] in the Epilepsy Monitoring Unit by the [facility] Clinical Neurophysiology Laboratory. The 10/20 international system of electrode placement was used and bipolar and referential electrode montages were recorded. In addition to EEG the patient was monitored for EKG and lateral/vertical eye movements. Video was recorded during the session. ELECTROENCEPHALOGRAPHER'S REPORT Background During the awake state with the eyes closed the background consisted of a moderate amplitude, 10 Hzposterior reactive rhythm that attenuated appropriately with eye [...] vertex sharp waves, and diffuse delta slowing. Abnormal Interictal Activity None Clinical [...] events of headaches that did not represent epileptic seizures. No epileptiform discharges or seizures seen thus far. Nitin Rodrigez MD Clinical Neurophysiology Fellow Associated attestation - Ming Arguello Jr., MD - 07/08/2021 11:53 AM EDT I have reviewed the EEG with the fellow and agree with the assessment above. Ming Arguello MD, PhD [facility], Department of Neurology 07/08/2021 11:53 AM * Nitin Rodrigez MD - 07/06/2021 9:18 AM EDT [facility] Department of Neurology Inpatient Video EEG Report [...] in the Epilepsy Monitoring Unit by the [facility] Clinical Neurophysiology Laboratory. The 10/20 international system of electrode placement was used and bipolar and referential electrode montages were recorded. In addition to EEG the patient was monitored for EKG and lateral/vertical eye movements. Video was recorded during the session. ELECTROENCEPHALOGRAPHER'S REPORT Background During the awake state with the eyes closed the background consisted of a moderate amplitude, 10 Hzposterior reactive rhythm that attenuated appropriately with eye [...] vertex sharp waves, and diffuse delta slowing. Abnormal Interictal Activity None Clinical [...] the assessment above. Ming Arguello MD, PhD [facility], Department of Neurology 07/07/2021 1:54 PM * Nitin Rodrigez MD - 07/05/2021 12:27 PM EDT [facility] Department of Neurology Inpatient Video EEG Report [...] in the Epilepsy Monitoring Unit by the [facility] Clinical Neurophysiology Laboratory. The 10/20 international system of electrode placement was used and bipolar and referential electrode montages were recorded. In addition to EEG the patient was monitored for EKG and lateral/vertical eye movements. Video was recorded during the session. ELECTROENCEPHALOGRAPHER'S REPORT Background During the awake state with the eyes closed the background consisted of a moderate amplitude, 10 Hzposterior reactive rhythm that attenuated appropriately with eye [...] vertex sharp waves, and diffuse delta slowing. Abnormal Interictal Activity None Clinical [...] assessment above. Ming Arguello MD, PhD Diplomate, [place] [employer] of Psychiatry and Neurology, with added qualification in Epilepsy home care physical therapist Electroencephalography Co-Director of Intraoperative Neurophysiologic Monitoring [facility], Department of Neurology 07/05/2021 1:35 PM * Elaina Jason - 07/04/2021 5:21 PM EDT [facility] Department of Neurology Inpatient Continuous EEG Report [...] the video EEG monitoring unit for differential diagno sis/characterization of events, concerning for seizures. MEDICATIONS: Current Facility-Administered Medications Medication Dose Route Frequency Provider Last Rate Last Admin ??? [START ON 07/05/2021] ARIPiprazole (Abilify) tablet 2 mg 2 mg Oral Daily Lorin Guevara APRN ??? [START ON 07/05/2021] cholecalciferol (Vitamin D3) tablet 2,000 Units 2,000 Units Oral Daily Lorin Guevara APRN ??? [START ON 07/05/2021] citalopram (CeleXA) tablet 20 mg 20 mg Oral Daily Lorin Guevara APRN ??? cloBAZam (Onfi) tablet 10 mg 10 mg Oral Nightly Guevara, Lorin B, MIXING TUMBLER OPERATOR ??? [START ON 07/05/2021] meloxicam (MOBIC) tablet 15 mg 15 mg Oral Daily Lorin Guevara, MIXING TUMBLER OPERATOR ??? albuteroL (Proventil) nebulizer solution 2.5 mg 2.5 mg Nebulization Q6H PRN Lorin Guevara, MIXING TUMBLER OPERATOR ??? [START ON 07/05/2021] topiramate (Topamax) tablet 100 mg 100 mg Oral QAM Guevara Lorin B, MIXING TUMBLER OPERATOR ??? topiramate (Topamax) tablet 200 mg 200 mg Oral Nightly Guevara Lorin Dora, MIXING TUMBLER OPERATOR ??? sodium chloride 0.9 % (flush) (BD PosiFlush Normal Saline 0.9) flush 5 mL 5 mL Intravenous BID Guevara Lorin B, MIXING TUMBLER OPERATOR ??? sodium chloride 0.9 % (flush) (BD PosiFlush Normal Saline 0.9) flush 5-20 mL 5-20 mL Intravenous Q1 Min PRN Guevara, Lorin B, MIXING TUMBLER OPERATOR ??? lidocaine (Xylocaine) 1% (10 mg/mL) injection 3 mg 0.3 mL Subcutaneous Once PRN Ismael Lorin John, MIXING TUMBLER OPERATOR ??? LORazepam (Ativan) (2 mg/mL) injection 2 mg 2 mg Intravenous Once PRN Ismael Lorin B, MIXING TUMBLER OPERATOR ??? enoxaparin (Lovenox) (40 mg/0.4 mL) subcutaneous injection 40 mg 40 mg Subcutaneous Nightly Guevara Lorin B, MIXING TUMBLER OPERATOR METHODS: A 21 channel digitized continuous electroencephalogram [...] EKG. Video was recorded during the session. LEAD PORTFOLIO MANAGER'S REPORT: Performed by: Elaina Jason At the onset of the recording the patient was awake and cooperative. Movement and other artifact was not significant. Comments: documented in this encounter Miscellaneous Notes * Plan of Care - Milagros Howard RN [...] from patient, Bessie (please identify family/friend involved if applicable) and team. All are in agreement with plan. Shannan Johnson MSN, RN Pager #[phone] * Plan of Care - Lani Quick RN - 07/11/2021 4:30 AM EDT OUTCOME EVALUATION NOTE: OUTCOME SUMMARY: Pt A&O, denies H/A or other pain. Mood is good. Makes needs known. SBA for mobility. Up to bathroom x2. No events overnight. Is currently back on all her ASM's. Excited to be discharging home later today. PLAN MOVING FORWARD: VEEG. Q8 hr VS. [...] as documented. * Plan of Care - Lenka Clarke RN - 07/10/2021 4:30 PM EDT OUTCOME EVALUATION NOTE: ?? OUTCOME SUMMARY: ?? A+Ox4, VSS, pain 6-7 BRANNON. Scheduled Advil given for BRANNON, AED [...] EVALUATION: ?? Continue care plan as documented. * Plan of Care - Marcelina Douglas RN [...] as documented. * Plan of Care - Lenka Clarke RN - 07/09/2021 10:05 AM EDT OUTCOME EVALUATION NOTE: OUTCOME SUMMARY: A+Ox4, VSS, pain 5-6/10 BRANNON but pt stated tolerable. Scheduled and PRN meds given r/t BRANNON continuing.No events noted. Seizure precautions maintained. PLAN MOVING [...] as documented. * Plan of Care - Aishwarya Lala RN [...] EVALUATION: Continue care plan as documented * Plan of Care - Mae Banda RN [...] as documented. * Plan of Care - Aishwarya Lala RN [...] of Discharge: 07/11/2021 Shannan MANDUJANO, RN Pager #[phone] * Plan of Care - Shelby Mills RN [...] EVALUATION: Continue care plan as documented * Plan of Care - Aishwarya Lala RN - 07/07/2021 12:42 AM EDT OUTCOME EVALUATION NOTE: OUTCOME SUMMARY: Pt A&Ox4, AVSS on RA. Continued on VEEG, no events overnight. Complained of Severe BRANNON not relieved by scheduled medication, MD informed and ordered one time medication for BRANNON (see MAR for details). Safety mainatined, seizure precaution maintained. PLAN MOVING FORWARD: [...] EVALUATION: Continue care plan as documented * Plan of Care - Lani Quick RN [...] as documented. * Plan of Care - Marguerite Miramontes RN [...] COVID test: Lab Results Component Value Date [id number] Not Detected 07/04/2021 Present on Admission: ??? Seizure-like activity Hospitalizations Within the Past 30 Days: no previous admission in last 30 days Patient receiving hospital care under Inpatient status. Admission order reviewed. Primary Insurance on file: [place]ICAID [place] Secondary Insurance on file:@ Primary care provider on file: Comfort Urban APRN [phone] Pharmacy: [id number] - [place], [place] - [address] [place] [address] [address] [facility] [address] [phone] [id number] - [place], [place] - [address] AT [address] [facility] [address] [facility] [id number] Advance Care Planning: Attempt Cardiopulmonary Resuscitation - Inpatient <no information> -Advanced Directive: No, need to discuss Current Functional Ability: Independent Functional Status Prior to Admission: Independent Home Environment: Others in the home: child(jeremie), dependent. Current Living Arrangements: home/apartment/condo. Accessibility Concerns:no concerns noted at this time. Current DME: none [address] [facility] [address] Social & Family Supports: All names listed [...] private vehicle when medically ready. Registered Nurse Zone Supervisor Firearms / Oven Loader will continue to follow patient???s progress and remain available if situation changes for coordination of care, psychosocial support and/or discharge planning. Office of Care Management Shannan MANDUJANO, RN Pager #[phone] * Plan of Care - Marguerite Springer RN [...] 10:00 AM EDT [place] [address] Tereso Mohan MD [facility] [place] [address] 12/24/2023 10:30 AM EDT Appointment XRay at [address] [place] [id number] Shelby Aaron APRN [facility] [place] [address] 12/24/2023 11:30 AM EDT Office Visit [facility] [place] [id number] Shelby Aaron MIXING TUMBLER OPERATOR [facility] [place] [address] documented as of this encounter Procedures Procedure Name Priority Date/Time Associated Diagnosis Comments ZVIDEO EEG MONITORING Routine 07/11/2021 11:56 AM EDT COVID-19 PCR Routine 07/07/2021 7:50 PM EDT EKG 12-LEAD Routine 07/04/2021 6:54 PM EDT Seizure-like activity RAPID COVID-19 PCR ([facility]) Routine 07/04/2021 5:33 PM EDT HC PCH CLOBAZAM Routine 07/04/2021 4:59 PM EDT HEMOGRAM Routine 07/04/2021 4:59 PM EDT DIFFERENTIAL, AUTOMATED Routine 07/04/2021 4:59 PM EDT HC PCH TOPIRAMATE Routine 07/04/2021 4:5 9 PM EDT HC CBC,PLT & AUTO DIFF Routine 4:59 PM EDT HC CHORIONIC GONADOTROPINS, SERUM Routine 07/04/2021 4:59 PM EDT HC VALPROIC ACID Routine 07/04/2021 4:59 PM EDT COMPREHENSIVE METABOLIC PANEL Routine 07/04/2021 4:59 PM EDT documented in this encounter Results * EEG video monitoring (07/11/2021 11:56 AM EDT) Narrative Ming Arguello Jr., MD - 07/11/2021 11:56 AM EDT Nitin Rodrigez MD ? 07/12/2021 ??1:00 PM [facility] Department of Neurology Comprehensive Final EMU Report DATES OF VIDEO EEG MONITORIN07/04/21 - 07/11/21 Demographics: Name of the Patient: ??Bessie Levy Date of : ?1985 Sex: ?female History of Present Illness/Description of Symptoms:?? Bessie [...] medications with variable degree of control of episodes.? [...] investigations: EEG: ?- Routine EEG: Done at [facility]08/08/18: Normal study. ?- Routine EEG: Done at [facility] 05/05/18: Normal study. 2019 MRI: ?- MRI [...] (07/07) Topamax 100mg/200mg -->??50mg/100mg (07/05) --> off (/6) 07/08/21 - 07/10/21: off anti-seizure medications Restarted [...] discharge with broad field was seen, most likely business representative of a K-complex. ??Example on 07/09/2021 at 13:14:21 ?? Abnormal Interictal Activity None ?? Clinical Events Event #1 on 07/06/21 at 17:53 Clinical: Patient reports having a severe headache which she has prior to her seizures. ??She does note that she has headaches independent of her seizures. ?? EEG: No abnormal EEG correlate ?? Event #2 on 07/06/21 at 22:34 Clinical: Patient reports headache with dizziness EEG: No abnormal EEG correlate ?? INTERPRETATION This EEG is normal during the awake and asleep states. CLINICAL CORRELATION & PLAN These 8 days of video EEG were normal. ??There were 2 events of headaches seen that did not represent epileptic seizures and may have been the result of withdrawing her topamax and depakote. ??We did not capture the events of feeling spacey and dumb that could progress to a convulsion so we cannot comment on the etiology of those. ??No epileptiform discharges or seizures were seen during her entire recording. ??Her K-complexes are conspicuous for their broad field, but did not appear to be evolving in the setting of ASM withdraw in a manner to suggest a latent/treated primary generalized epilepsy. ??If she continues to have events, can consider a repeat EMU admission. ??She will continue to follow up with Dr. Mohan. Discharge seizure medications: Restarted her home medications of Depakote 250mg/500mg + Topamax 100mg/200mg + Onfi 10mg QHS Nitin Rodrigez MD Clinical Neurophysiology Fellow Lorin Guevara APRN NEUROLOGY ORDERABLES * COVID-19 PCR (07/07/2021 7:50 PM EDT) SARS-CoV-2 RNA Not Detected Not Detected [facility] Comment: This result should be interpreted in combination with the clinical observations, patient history and epidemiological information in making a final diagnosis. For testing of asymptomatic individuals, assay performance characteristics and clinical utility have not been evaluated. Testing for SARS-CoV-2 (Severe acute respiratory syndrome coronavirus 2, formerly known as 2019 novel coronavirus or 2019-nCoV) to aid in the diagnosis of COVID-19 is performed using the [employer] m SARS-CoV-2 Assay as authorized by the FDA Emergency Use Authorization (EUA). This EUA assay is intended for In-vitro Diagnostic (IVD) use with respiratory specimens such as nasopharyngeal swabs collected from individuals during the acute phase of infection. This assay is performed based on the instructions for use provided by [employer] and additional guidance provided by CDC and FDA. Testing is performed in the Clinical Genomics and Advanced Technology Laboratory within the Department of Pathology and Laboratory Medicine at [facility], certified under the Clinical Laboratory Improvement Amendments of 1988 (CLIA), 42 U.S.C. 263a, to perform high complexity tests. Assay performance has been verified according to clinical laboratory regulatory requirements for use with specimens collected from individuals suspected of COVID-19. Test results are provided above. A result of Not Detected indicates that the viral RNA target is not present above the limit of detection, but does not preclude SARS-CoV-2 infection. False negative results may occur if a specimen is improperly collected, transported or handled; if amplification inhibitors are present; or if inadequate numbers of viral particles are present in the specimen. When a diagnostic test is negative, the possibility of a false negative result should be considered in the context of a patient's recent exposures and the presence of clinical signs and symptoms consistent with COVID-19. A result of Detected indicates that RNA from SARS-CoV-2 was detected and the patient is infected. As required or requested by public health authorities, positive specimens may be sent for additional testing. Positive and negative predictive values for this test are highly dependent on disease prevalence. A result of Invalid indicates that neither the viral RNA targets nor the internal control target was detected. An invalid result suggests the presence of inhibitors. Recollection and re-testing is recommended in the case of an invalid result. CDC COVID-19 criteria for testing on human specimens and clinical management guidance information are available at the CDC Coronavirus Disease 2019 (COVID-19) webpage under Information for Healthcare Professionals (https://www.cdc.gov/coronavirus/2019-ncov/hcp/index.html) Additional information about this and other EUA tests can be found in provider and patient fact sheets at the following FDA website: https://www.fda.gov/medical-devices/ckpjwgsvvyd-hfivdnq-8154-byyit-65-zfobppidz- use-a dtcwmpqhertsr-lsmxexi-xsjgyam/vfxph-wifudnobuyt-cfih SARS-CoV-2 RNA Source BUSINESS PROCESS SPECIALIST Swab [facility] Nasopharyngeal Swab 07/08/19 7:50 PM EDT 07/07/2021 8:40 PM EDT Comment:Symptoms->Surveillan ce Narrative Resulting Agency Comment Spec In Lab Tereso Mohan MD MOLECULAR ORDERABLES Performing Organization Address City/[facility]/ZIP Co de Phone Number [facility] [place] [address] * EKG 12 Lead (07/04/2021 6:54 PM EDT) Ventricular rate 66 BPM MUSE SYSTEM Atrial Rate 66 BPM MUSE SYSTEM P-R Interval 168 ms MUSE SYSTEM QRS Duration 98 ms MUSE SYSTEM Q-T Interval 406 ms MUSE SYSTEM QTC Calculated (Bezet) 425 ms MUSE SYSTEM Calculated P [place] 48 degrees MUSE SYSTEM Calculated R [place] 69 degrees MUSE SYSTEM Calculated T [place] 92 degrees MUSE SYSTEM INTERPRETATION Normal sinus rhythm T wave abnormality, consider anterolateral ischemia Abnormal ECG When compared with ECG of 30-OCT-2007 15:54, T wave inversion now evident in Lateral leads Confirmed by MD Tucker, Josué ([id number]) on 07/05/2021 3:04:35 PM MUSE SYSTEM 07/04/2021 6:54 PM EDT 07/05/2021 3:04 PM EDT Lorin Guevara APRN ECG ORDERABLES Performing Organization Address [facility]/[place] Co de Phone Number MUSE SYSTEM * COVID-19 PCR (07/04/2021 5:33 PM EDT) SARS-CoV-2 RNA (Rapid) Not Detected Not Detected [facility] Comment: This result should be interpreted in combination with the clinical observations, patient history and epidemiological information. For testing of asymptomatic individuals, assay performance characteristics and clinical utility have not been evaluated. Testing for SARS-CoV-2 (Severe acute respiratory syndrome coronavirus 2, formerly known as 2019 novel coronavirus or 2019-nCoV) to aid in the diagnosis of COVID-19 is performed using the [employer] COVID-19 Direct Assay by [employer] as authorized by the FDA issued Emergency Use Authorization (EUA). This assay is intended for In-vitro Diagnostic (IVD) use with nasopharyngeal swabs collected from individuals meeting the CDC criteria for testing. The assay is performed based on the instructions for use and additional guidance provided by the FDA. Testing is performed in the Microbiology Laboratory within the Department of Pathology and Laboratory Medicine at [facility], certified under the Clinical Laboratory Improvement Amendments of 1988 (CLIA), 42 U.S.C. section 263a, to perform high complexity tests. Assay performance has been verified according to clinical laboratory regulatory requirements. Test results are provided above. A result of Not Detected indicates that the viral RNA target is not present but does not preclude SARS-CoV-2 infection. False negative results may occur if a specimen is improperly collected, transported or handled; if amplification inhibitors are present; or if inadequate numbers of viral particles are present in the specimen. A result of Detected suggests a current or recent infection and the patient is presumed to be infected. Positive and negative predictive values for this test are highly dependent on disease prevalence. A result of Invalid indicates the inability to conclusively determine the presence or absence of SARS-CoV-2 RNA in the sample which can be due to a variety of factors. Recollection is recommended in the case of an invalid result. CDC COVID-19 criteria for testing on human specimens and clinical management guidance information are available at the CDC Coronavirus Disease 2019 (COVID-19) webpage under Information for Healthcare Professionals (https://www.cdc.gov/coronavirus/2019-ncov/hcp/index.html). Additional information about this and other EUA tests can be found in provider and patient fact sheets at the following FDA website: https://www.fda.gov/medical-devices/elpcnuqsejv-qoewwyg-2548-tekqo-86-gmcgtgitg- use-a kwsyzriyqopcg-rbmeitw-tegnzec/ffafv-fogbikxsvxw-hxuz SARS-CoV-2 Source BUSINESS PROCESS SPECIALIST Swab [facility] Nasopharyngeal Swab 07/05/19 5:33 PM EDT 07/04/2021 6:01 PM EDT Comment:Symptoms->Surveillan ce Narrative Resulting Agency Comment Spec In Lab Lorinzane Guevara APRN MICROBIOLOGY - GENER AL ORDERABLES [facility] [place] [address] * (ABNORMAL) Differential, Automated (07/04/2021 4:59 PM EDT) Neutrophil % 53.2 % [facility] Neutrophil Absolute 4.92 1.70 - 6.10 x10(3)/mc L [facility] Lymph % 30.8 % [facility] Lymphocytes Abs 2.8 0.9 - 3.2 x10(3)/[facility] LABORATORY Monocyte % 9.5 % [facility] Monocyte Abs 0.9 0.3 - 0.9 x10(3)/ L [facility] Eos % 5.0 % [facility] Eosinophils Abs 0.5(H) 0.0 - 0.4 x10(3)/[facility] LABORATORY Basophil % 1.1 % [facility] Baso Absolute 0.1 0.0 - 0.1 x10(3)/[facility]ORATORY Immature Gran % 0.40 % [facility] Comment: Immature granulocytes(IG's)percentage and absolute count will include metamyelocytes, myelocytes, and promyelocytes. Blood smears from CBCs yielding IG's will be scanned manually for concordance. If this scan disagrees with the automated IG or if promyelocytes are noted, a manual differential will be performed. Immature Gran Absolute 0.04 0.00 - 0.04 x10(3)/ L [facility] Blood 07/04/2021 4:59 PM EDT 07/04/2021 5:06 PM EDT Narrative Resulting Agency Comment Spec In Lab Lorin Guevara APRN HEMATOLOGY ORDERABLE S [facility] [place] [address] * Hemogram (07/04/2021 4:59 PM EDT) Pathologist [facility] White Blood Cell 9.2 4.0 - 9.5 x10(3)/[facility] LABORATORY Red Blood Cell 4.95 4.00 - 5.21 x10(6)/[facility] Hemoglobin 14.6 11.7 - 15.5 g/dL [facility] Hematocrit 44.1 35.7 - 45.8 % [facility] Mean Cell Volume 89.1 82.6 - 94.4 fL [facility] Mean Cell Hemoglobin 29.5 27.1 - 32.0 pg [facility] Mean Cell Hemoglobin Concentration 33.1 31.7 - 35.0 g/dL [facility] Platelet 254 145 - 357 x10(3)/[facility] LABORATORY RDW Standard Deviation 37.8 37.0 - 46.0 [facility] LABORATORY RDW coefficient of variation 11.8 11.5 - 14.1 % [facility] Mean Platelet Volume 8.9 7.6 - 12.9 [facility] LABORATORY NRBC% auto 0.0 % [facility] NRBC Absolute 0.000 0.000 - 0.000 x10(3)/[facility] Blood 07/04/2021 4:59 PM EDT 07/04/2021 5:06 PM EDT Narrative Resulting Agency Comment Spec In Lab Lorin Guevara APRN HEMATOLOGY ORDERABLE S [facility] [place] [address] * Topiramate level (07/04/2021 4:59 PM EDT) Topiramate Lvl (JULY) 7.3 mcg/mL [facility] Comment: REFERENCE VALUE Reference values depend on clinical use: Anticonvulsant: 5.0-20.0 mcg/mL Psychiatric: 2.0-8.0 mcg/mL ADDITIONAL INFORMATION This test was developed and its performance characteristics determined by [facility] in a manner consistent with CLIA requirements. This test has not been cleared or approved by the U.S. Food and Drug Administration. Test Performed by: [facility] - [place] [id number] Student Life Coordinator: Tito King M.D. Ph.D.; CLIA# [id number] Blood 07/04/2021 4:59 PM EDT 07/05/2021 9:16 AM EDT Narrative Resulting Agency Comment Spec In Lab Lorin Guevara APRN LAB SEND OUT ORDERAB LES Performing Organization Address City/[facility]/ZIP Co de Phone Number [facility] [place] [address] * Valproic Acid Level, Total (07/04/2021 4:59 PM EDT) Valproic Acid 51 mg/L [facility] Comment: Therapeutic Range: Anticonvulsant Therapy: ??50-100 mg/L Manic Episodes Associated with Bipolar Disorder: ??50-125 mg/L Blood 07/04/2021 4:59 PM EDT 07/04/2021 5:06 PM EDT Narrative Resulting Agency Comment Spec In Lab Lorin Guevara APRN CHEMISTRY ORDERABLES Performing Organization Address [facility]/ZIP Co de Phone Number [facility] [place] [address] * Clobazam Level (07/04/2021 4:59 PM EDT) [facility] Clobazam (JULY) 145.0 30 - 300 ng/mL [facility] Comment: Test Performed by: [place] [address] Student Life Coordinator: Tito King M.D. Ph.D.; CLIA# [id number] Desmethylclobazam (MAY) 1080.0 300 - 3000 ng/mL [facility] Comment: ADDITIONAL INFORMATION This test was developed and its performance characteristics determined by [facility] in a manner consistent with CLIA requirements. This test has not been cleared or approved by the U.S. Food and Drug Administration. Test Performed by: [place] [address] Student Life Coordinator: Tito King M.D. Ph.D.; CLIA# [id number] Blood 07/04/2021 4:59 PM EDT 07/05/2021 9:16 AM EDT Narrative Resulting Agency Comment Spec In Lab Lorin Guevara APRN LAB SEND OUT ORDERAB LES [facility] [place] [address] * Beta HCG, quantitative (07/04/2021 4:59 PM EDT) [facility] Beta Human Chorionic Gonadotropin, Quantitative <1 mlU/ML [facility] Comment: REFERENCE RANGES NON- FEMALE: ??Less [...] - 56,451 ?17 weeks ? 8,175 - 00,372 ?18 weeks ? 8,099 - 28,831 Blood 07/04/2021 4:59 PM EDT 07/04/2021 5:06 PM EDT Narrative Resulting Agency Comment Spec In Lab Lorin Guevara APRN CHEMISTRY ORDERABLES [facility] [place] [address] * (ABNORMAL) Comprehensive metabolic panel (non-fasting) (07/04/2021 4:59 PM EDT) Glucose 82 65 - 199 mg/dL [facility] Comment:Diabetes: >=200 mg/d L plus symptoms Blood Urea Nitrogen 10 8 - 18 mg/dL [facility] Creatinine 0.81 0.70 - 1.20 mg/dL [facility] Sodium 136 135 - 145 mmol/L [facility] Potassium 3.8 3.5 - 5.0 mmol/L [facility] Comment: Please note: ??Patients with WBC >100,000 may have falsely elevated Potassium levels. ??For accurate Potassium quantification in these patients send serum separator tube (gold top) for subsequent determinations. ??Contact the Clinical Chemistry Laboratory if there are any questions. Chloride 104 98 - 107 mmol/L [facility] Carbon Dioxide 18(L) 22 - 31 mmol/L [facility] Anion Gap 14 5 - 15 mmol/L [facility] Calcium 9.1 8.5 - 10.5 mg/dL [facility] Protein, Total 8.1(H) 6.1 - 8.0 g/dL [facility] Albumin 4.7 3.2 - 5.2 g/dL [facility] Aspartate Aminotransferase 21 0 - 30 unit/L [facility] Alanine Aminotransferase 21 0 - 30 unit/L [facility] Alkaline Phosphatase 33(L) 35 - 105 unit/L [facility] Bilirubin, Total 0.3 0.2 - 1.3 mg/dL [facility] Est Glomerular Filtration Rate 93 >=60 mL/min/1. 73 m?? [facility] Comment: This patient? s estimated glomerular filtration rate (eGFR) is between 93 mL/min/1.73 m2 (patients with less muscle mass) and 108 mL/min/1.73 m2 (patients with [...] and symptoms in addition to eGFR. Blood 07/04/2021 4:59 PM EDT 07/04/2021 5:06 PM EDT Narrative Resulting Agency Comment Spec In Lab Lorin Guevara APRN CHEMISTRY ORDERABLES [facility] [place] [address] documented in this encounter Visit Diagnoses Diagnosis Seizure-like activity Other convulsions Seizure-like activity Other convulsions documented in this encounter Admitting Diagnoses Diagnosis Seizure-like activity Other convulsions documented in this encounter Administered Medications Inactive Administered Medications - up to 3 most recent administrations Medication Order MAR Action Action Date Dose Rate Site acetaminophen (Tylenol) tablet 975 mg 975 mg, Oral, ONCE, 1 dose, On Alejandra 07/06/21 at 2345, Maximum dose of acetaminophen is 4000 mg from all sources in 24 hours. When ordered for pain, acetaminophen should be given even when other ordered pain medications are indicated. , Routine Given 07/06/2021 11:16 PM EDT 975 mg ARIPiprazole (Abilify) tablet 2 mg 2 mg, Oral, DAILY, First dose on Sat07/05/21 at 0900, Until Discontinued, Routine Given 07/11/2021 9:10 AM EDT 2 mg Given 07/10/2021 8:15 AM EDT 2 mg Given 07/09/2021 8:07 AM EDT 2 mg cholecalciferol (Vitamin D3) tablet 2,000 Units 2,000 Units, Oral, DAILY, First dose on Sat07/05/21 at 0900, Until Discontinued, Routine Given 07/11/2021 9:09 AM EDT 2,000 Units Given 07/10/2021 8:15 AM EDT 2,000 Units Given 07/09/2021 8:07 AM EDT 2,000 Units citalopram (CeleXA) tablet 20 mg 20 mg, Oral, DAILY, First dose on Sat07/05/21 at 0900, Until Discontinued, Routine Given 07/11/2021 9:09 AM EDT 20 mg Given 07/10/2021 8:15 AM EDT 20 mg Given 07/09/2021 8:07 AM EDT 20 mg cloBAZam (Onfi) tablet 10 mg 10 mg, Oral, NIGHTLY, First dose on Sat07/04/21 at 2100, Until Discontinued, Routine Given 07/04/2021 8:19 PM EDT 10 mg cloBAZam (Onfi) tablet 10 mg 10 mg, Oral, NIGHTLY, First dose on Sat07/10/21 at 2100, Until Discontinued, Routine Given 07/10/2021 9:00 PM EDT 10 mg cloBAZam (Onfi) tablet 5 mg 5 mg, Oral, NIGHTLY, First dose (after last modification) on Sat07/05/21 at 2100, Until Discontinued, Routine Given 07/05/2021 8:32 PM EDT 5 mg diphenhydrAMINE (Benadryl) (50 mg/mL) injection 12.5 mg 12.5 mg, Intravenous, EVERY 6 HOURS SCHEDULED, First dose on Sat07/07/21 at 0000, Until Discontinued, Routine Given 07/06/2021 11:29 PM EDT 12.5 mg divalproex EC (Depakote) tablet 250 mg 250 mg, Oral, DAILY, First dose on Sat07/10/21 at 1230, Until Discontinued, DO NOT SPLIT, CRUSH OR OPEN, Routine Given 07/11/2021 9:10 AM EDT 250 mg Given 07/10/2021 12:33 PM EDT 250 mg divalproex EC (Depakote) tablet 500 mg 500 mg, Oral, NIGHTLY, First dose on Sat07/10/21 at 2100, Until Discontinued, DO NOT SPLIT, CRUSH OR OPEN, Routine Given 07/10/2021 8:27 PM EDT 500 mg enoxaparin (Lovenox) (40 mg/0.4 mL) subcutaneous injection 40 mg 40 mg, Subcutaneous, NIGHTLY, First dose on Sat07/04/21 at 2100, Until Discontinued, Routine Given 07/10/2021 8:27 PM EDT 40 mg Given 07/09/2021 9:50 PM EDT 40 mg Given 07/08/2021 9:13 PM EDT 40 mg hydrOXYzine (Atarax) tablet 25 mg 25 mg, Oral, 3 TIMES DAILY PRN, Starting on Sat07/09/21 at 1013, Until Sat07/11/21 at 1402, Anxiety, Headache, Routine Given 07/09/2021 12:14 PM EDT 25 mg ibuprofen (Advil) tablet 600 mg 600 mg, Oral, EVERY 8 HOURS PRN, Starting on Sat07/05/21 at 0747, Until Sat07/05/21 at 1621, Pain, Administer orally with milk or food to minimize GI irritation. Maximum dose of 3,200 mg from all sources in 24 hours, Routine Given 07/05/2021 3:59 PM EDT 600 mg Given 07/05/2021 8:05 AM EDT 600 mg ibuprofen (Advil) tablet 600 mg 600 mg, Oral, EVERY 8 HOURS, First dose (after last modification) on Sat07/05/21 at 2200, Until Discontinued, Administer orally with milk or food to minimize GI irritation. Maximum dose of 3,200 mg from all sources in 24 hours, Routine Given 07/11/2021 6:32 AM EDT 600 mg Given 07/10/2021 10:52 PM EDT 600 mg Given 07/10/2021 2:54 PM EDT 600 mg magnesium sulfate 2 g in sterile water 50 mL infusion 2 g, Intravenous, ONCE, 1 dose, On Alejandra 07/06/21 at 2345, Administer over 120 Minutes New Bag 07/06/2021 11:24 PM EDT 2 g 25 mL/hr prochlorperazine (Compazine) (5 mg/mL) injection 10 mg 10 mg, Intravenous, ONCE, 1 dose, On Alejandra 07/06/21 at 2345, Routine Given 07/06/2021 11:17 PM EDT 10 mg sodium chloride 0.9 % (flush) (BD PosiFlush Normal Saline 0.9) flush 5 mL 5 mL, Intravenous, 2 TIMES DAILY, First dose on Sat07/04/21 at 2100, Until Discontinued, Routine Given 07/11/2021 9:10 AM EDT 5 mLs Given 07/10/2021 8:28 PM EDT 5 mLs Given 07/10/2021 8:15 AM EDT 5 mLs topiramate (Topamax) tablet 100 mg 100 mg, Oral, EVERY MORNING, First dose on Sat07/05/21 at 0700, Until Discontinued, DO NOT SPLIT, CRUSH OR OPEN, Routine Given 07/05/2021 7:00 AM EDT 100 mg topiramate (Topamax) tablet 100 mg 100 mg, Oral, NIGHTLY, First dose (after last modification) on Sat07/05/21 at 2100, Until Discontinued, DO NOT SPLIT, CRUSH OR OPEN, Routine Given 07/05/2021 8:31 PM EDT 100 mg topiramate (Topamax) tablet 100 mg 100 mg, Oral, DAILY, First dose on Sat07/10/21 at 1230, Until Discontinued, DO NOT SPLIT, CRUSH OR OPEN, Routine Given 07/11/2021 9:10 AM EDT 100 mg Given 07/10/2021 12:34 PM EDT 100 mg topiramate (Topamax) tablet 200 mg 200 mg, Oral, NIGHTLY, First dose on Sat07/04/21 at 2100, Until Discontinued, DO NOT SPLIT, CRUSH OR OPEN, Routine Given 07/04/2021 8:19 PM EDT 200 mg topiramate (Topamax) tablet 200 mg 200 mg, Oral, NIGHTLY, First dose on Sat07/10/21 at 2100, Until Discontinued, DO NOT SPLIT, CRUSH OR OPEN, Routine Given 07/10/2021 8:26 PM EDT 200 mg topiramate (Topamax) tablet 50 mg 50 mg, Oral, EVERY MORNING, First dose (after last modification) on Alejandra 07/06/21 at 0700, Until Discontinued, DO NOT SPLIT, CRUSH OR OPEN, Routine Given 07/06/2021 6:54 AM EDT 50 mg documented in this encounter Active and Recently Administered Medications Times are shown in EDT. Scheduled Medication Order 07/09/2021 07/10/2021 07/11/2021 ARIPiprazole (Abilify) tablet 2 mg 2 mg, Oral, DAILY, First dose on Sat07/05/21 at 0900, Until Discontinued, Routine 0807 (Given - Provider: Lenka Clarke RN) 0815 (Given - Provider: Lenka Clarke RN) 0910 (Given - Provider: Milagros Howard, ARLETTE) cholecalciferol (Vitamin D3) tablet 2,000 Units 2,000 Units, Oral, DAILY, First dose on Sat07/05/21 at 0900, Until Discontinued, Routine 0807 (Given - Provider: Lenka Clarke RN) 0815 (Given - Provider: Lenka Clarke RN) 0909 (Given - Provider: Milagros Howard, ARLETTE) citalopram (CeleXA) tablet 20 mg 20 mg, Oral, DAILY, First dose on Sat07/05/21 at 0900, Until Discontinued, Routine 0807 (Given - Provider: Lenka Clarke RN) 0815 (Given - Provider: Lenka Clarke RN) 0909 (Given - Provider: Milagros Howard, ARLETTE) cloBAZam (Onfi) tablet 10 mg 10 mg, Oral, NIGHTLY, First dose on Sat07/10/21 at 2100, Until Discontinued, Routine 2100 (Given - Provider: Lani Quick RN) divalproex EC (Depakote) tablet 250 mg 250 mg, Oral, DAILY, First dose on Sat07/10/21 at 1230, Until Discontinued, DO NOT SPLIT, CRUSH OR OPEN, Routine 1233 (Given - Provider: Lenka Clarke RN) 0910 (Given - Provider: Milagros Howard, ARLETTE) divalproex EC (Depakote) tablet 500 mg 500 mg, Oral, NIGHTLY, First dose on Sat07/10/21 at 2100, Until Discontinued, DO NOT SPLIT, CRUSH OR OPEN, Routine 2026 (Given - Provider: Lani Quick, RN) enoxaparin (Lovenox) (40 mg/0.4 mL) subcutaneous injection 40 mg 40 mg, Subcutaneous, NIGHTLY, First dose on Sat07/04/21 at 2100, Until Discontinued, Routine 215 (Given - Provider: Marcelina Douglas, ARLETTE) 2026 (Given - Provider: Lani Quick, RN) ibuprofen (Advil) tablet 600 mg 600 mg, Oral, EVERY 8 HOURS, First dose (after last modification) on Sat07/05/21 at 2200, Until Discontinued, Administer orally with milk or food to minimize GI irritation. Maximum dose of 3,200 mg from all sources in 24 hours, Routine 0528 (Given - Provider: Aishwarya Deras RN)1454 (Given - Provider: Lenka Clarke RN)215 (Given - Provider: Marcelina Douglas, ARLETTE) 0515 (Given - Provider: Marcelina Douglas, ARLETTE)1454 (Given - Provider: Lenka Clarke RN)2252 (Given - Provider: Lani Quikc, ARLETTE) 0632 (Given - Provider: Lani Quick, RN) sodium chloride 0.9 % (flush) (BD PosiFlush Normal Saline 0.9) flush 5 mL 5 mL, Intravenous, 2 TIMES DAILY, First dose on Sat07/04/21 at 2100, Until Discontinued, Routine 0807 (Given - Provider: Lenka Clarke RN)2100 (Given - Provider: Marcelina Douglas, ARLETTE) 0815 (Given - Provider: Lenka Clarke RN)2027 (Given - Provider: Lani Quick RN) 0910 (Given - Provider: Milagros Howard, ARLETTE) topiramate (Topamax) tablet 100 mg 100 mg, Oral, DAILY, First dose on Sat07/10/21 at 1230, Until Discontinued, DO NOT SPLIT, CRUSH OR OPEN, Routine 1234 (Given - Provider: Lenka Clarke RN) 0910 (Given - Provider: Milagros Howard RN) topiramate (Topamax) tablet 200 mg 200 mg, Oral, NIGHTLY, First dose on 07/10/21 at 2100, Until Discontinued, DO NOT SPLIT, CRUSH OR OPEN, Routine 2025 (Given - Provider: Lani Quick RN) PRN Medication Order 07/09/2021 07/10/2021 07/11/2021 albuteroL (Proventil) nebulizer solution 2.5 mg 2.5 mg, Nebulization, EVERY 6 HOURS PRN, Starting on Sat07/04/21 at 1602, Until Sat07/11/21 at 1402, Wheezing, Routine hydrOXYzine (Atarax) tablet 25 mg 25 mg, Oral, 3 TIMES DAILY PRN, Starting on 07/09/21 at 1013, Until Sat07/11/21 at 1402, Anxiety, Headache, Routine 1214 (Given - Provider: Lenka Clarke RN) lidocaine (Xylocaine) 1% (10 mg/mL) injection 3 mg 3 mg (0.3 mL), Subcutaneous, ONCE PRN, 1 dose, Starting on Sat07/04/21 at 1602, Until Sat07/11/21 at 1402, for discomfort with PIV insertion, Routine LORazepam (Ativan) (2 mg/mL) injection 2 mg 2 mg, Intravenous, ONCE PRN, 1 dose, Starting on Sat07/04/21 at 1602, Until Sat07/11/21 at 1402, Seizures, give 2mg IV once after 2 generalized tonic clonic seizures or 3 complex partial seizures in 24 hours, push over 1 minute. (Then page MD for post administration assessment, re-page if no reply after 5 minutes), Routine sodium chloride 0.9 % (flush) (BD PosiFlush Normal Saline 0.9) flush 5-20 mL 5-20 mL, Intravenous, EVERY 1 MIN PRN, Starting on Sat07/04/21 at 1602, Until Sat07/11/21 at 1402, flush, Flush pertains to all indwelling lines. Flush per protocol found in the job aid using the link provided on this medication record., Routine documented in this encounter Care Teams Yard Motor Operator Relationship Specialty Start Date End Date Comfort Urban, MIXING TUMBLER OPERATOR [address] [place] [address] PCP - General Family Medicine 07/19/17 03/11/23 documented as of this encounter
--- OUTSIDE RECORDS SUMMARY | 2023-11-16 14:14 | XMS_ITS | Encounter Summary ---
Author Organization [facility] [place] [address] Care Team Providers Care Synchronizer Name Role Phone Comfort Urban APRN Primary Care Provider [phone] Reason for Visit * Reason Onset Date Comments Leg Swelling 10/26/2021 Encounter Details Date Type Department Care Team (Late st Contact Info) Description 10/26/2021 Telephone [place] [address] Tereso Mohan MD [facility] [place] [address] Leg Swelling Social History Tobacco Use Types Packs/Day Years [...] Telephone Encounter - Elizabeth Ledesma RN - 11/01/2021 9:06 AM EDT Spoke with patient. Reports that she has been leg swelling for about 3 weeks now. Her left leg is swelling more than the right. She has trouble putting on her shoes due to this. Reports that the onlytime that she had some leg swelling in the past was when she was . She was seen in Urgent care about 2-3 weeks ago. She was started on Lasix 20 mg daily. She doesn't feel; that it is helping at all. Reports having a little bit of trouble breathing at times. But denies any chest pain or shortness of breath with rest or exertion as this time. She saw her envelope patternmaker. She had an echo and was told that in cardiology standpoint, it looks ok. She is scheduled to see her PCP tomorrow for clearance prior to her surgery on 11/20 with ortho. She called her Employment Manager ti check if it warrants increasing her Lasix. Patient verbalized that her Employment Manager wants Dr. Mohan to be aware of this, if the leg swellingcan be neurological in nature. Report forwarded to Dr. Mohan for review and comment. Pt/caller aware they will be called back with input when available and to call back in the interim if additional questions or change arise before they hear back from this office. Pt/caller agreeable to this plan. * Telephone Encounter - Palak Howard RN - 10/26/2021 12:14 PM EDT Last appt 09/05/21 [facility] sched for 10/31/21 Call returned to pt - VM reached and message left asking for call back - direct line given * Telephone Encounter - Palak Howard RN - 10/26/2021 11:40 AM EDT Copied from CRM #[id number]. Topic: Specialty Dept CRMs - Triage >> Oct 26, 2021 11:19 AM Aundrea Neil wrote: Triage Message Specialist: Kimberlee Rider MD Relationship (if other than patient-full name): self Bessie levy Symptom: Edema in legs Has patient experienced symptom before NO If patient has experienced symptom before, when was the last time this occurred n/a Is patient currently having symptom yes When did symptom begin Patient states the edema has been going on for a few months now but worsening in the legs over the past month Additional Comments: Bessie states she has gained 50 pounds since may with the Edema she has been experiencing. Bessie saw her PCP who instructed her to see her envelope patternmaker as they believed it was possibly dueto heart failure however cardiology isnt sure that is it and requested Bessie to speak to her neurologist regarding this symptom Please return call to discuss when available documented in this encounter Plan of Treatment Upcoming Encounters Date Type Department Care Team (Late st Contact Info) Description 12/24/2023 10:00 AM EDT Office [place] [address] Tereso Mohan MD [facility] [place] [address] 12/24/2023 10:30 AM EDT Appointment XRay at [address] [place] [phone] Shelby Aaron [facility] [place] [address] 12/24/2023 11:30 AM EDT Office Visit [facility] [place] [phone] Shelby Aaron [facility] [place] [address] documented as of this encounter Visit Diagnoses Not on filedocumented in this encounter Care Teams Synchronizer Relationship Specialty Start Date End Date Comfort Urban APRN [address] [place] [address] PCP - General Family Medicine 07/19/17 03/11/23 documented as of this encounter
--- OUTSIDE RECORDS SUMMARY | 2023-11-16 14:14 | XMS_ITS | Encounter Summary ---
Author Organization [facility] [place] [address] Care Team Providers Care Zoo Director Name Role Phone Comfort Urban APRN Primary Care Provider [phone] Reason for Visit * Reason Onset Date Comments Medication Refill 05/23/2021 Encounter Details Date Type Department Care Team (Late st Contact Info) Description 05/23/2021 [place] [address] Tereso Mohan MD [facility] [place] [address] Social History Tobacco Use Types Packs/Day Years [...] encounter Miscellaneous Notes * Telephone Encounter - Zohra Lane CMA - 05/23/2021 1:53 PM EDT Surescript request for : topiramate Last rx: 11/29/20 Quantity: 180 Refills: 1 Last appt: 04/07/21 Next appt: 06/05/21 documented in this encounter Plan of Treatment Upcoming Encounters Date Type Department Care Team (Late st Contact Info) Description 12/24/2023 10:00 AM EDT Office Visit Neurology at [place] [phone] Tereso Mohan MD [facility] [place] [address] 12/24/2023 10:30 AM EDT Appointment XRay at [address] [place] [phone] Shelby Aaron, DRUG WORKER [facility] [place] [address] 12/24/2023 11:30 AM EDT Office Visit [place] [phone] Shelby Aaron, DRUG WORKER [facility] [place] [address] documented as of this encounter Visit Diagnoses Not on filedocumented in this encounter Care Teams Zoo Director Relationship Specialty Start Date End Date Comfort Urban APRN [address] [place] [address] PCP - General Family Medicine 07/19/17 03/11/23 documented as of this encounter
--- OUTSIDE RECORDS SUMMARY | 2023-11-16 14:14 | XMS_ITS | Encounter Summary ---
Author Organization [facility] [place] [address] Care Team Providers Care Peanut Salter Name Role Phone Comfort Urban APRN Primary Care Provider [phone] Encounter Details Date Type Department Care Team (Late st Contact Info) Description 09/19/2021 Telephone [facility] [place] [phone] Jeniffer Hinojosa, RN Social History Tobacco Use [...] Telephone Encounter - Jeniffer Hinojosa RN - 09/19/2021 9:08 AM EDT Call returned to NICOLÁS Blandon in FU to review of todays MRI that was performed at the recommendation of Dr Raghavendra South earlier this am ( see note for detail). Informed Linda Mcdaniel, that the previous note and today's MRI was reviewed by Dr javy Wilkins. Thatthe canal is not compromised; No urgent/emergen needs- no concenrn of cauda equina. Explaned that if pt is interested in traveling to [facility] we would be happy to arrange and ambulatory evaluation- that we would start with one of our medical providers who work closely with the surgeons. In the interim would suggest pain mgmt/sx mgmt; which coould include local PT, consideration of an injection or oral steroids if they deem these optons clinically appropriate and without contraindications. [facility] provider confirmed that the contact numbers in edh are accurate. The treating provider at [facility] advise pt that one of our schedulers will call her and we will make efforts to arrange an apptin the MD in the next two weeks if possible. ~ 9:30 HP IB msg sent to on-call schedulers. documented in this encounter Plan of Treatment Upcoming Encounters Date Type Department Care Team (Late st Contact Info) Description 12/24/2023 10:00 AM EDT Office [place] [address] Tereso Mohan MD [facility] [place] [address] 12/24/2023 10:30 AM EDT Appointment XRay at [address] [place] [phone] Shelby Aaron ALLEY TENDER [facility] [place] [address] 12/24/2023 11:30 AM EDT Office Visit [facility] [place] [phone] Shelby Aaron ALLEY TENDER [facility] [place] [address] documented as of this encounter Visit Diagnoses Not on filedocumented in this encounter Care Teams Peanut Salter Relationship Specialty Start Date End Date Comfort Urban APRN [address] [place] [address] PCP - General Family Medicine 07/19/17 03/11/23 documented as of this encounter
--- OUTSIDE RECORDS SUMMARY | 2023-11-16 14:14 | XMS_ITS | Encounter Summary ---
[place] [address] Care Team Providers Care Cnc Machine Setter Name Role Phone JaydonComfort king APRN Primary Care Provider [phone] Encounter Details Date Type Department Care Team (Late st Contact Info) Description 09/19/2021 Telephone [place] [phone] Raghavendra Arredondo MD [facility] [place] [address] Social History Tobacco Use Types Packs/Day Years [...] encounter Miscellaneous Notes * Telephone Encounter - Raghavendra Arredondo MD - 09/19/2021 7:29 AM EDT Transfer center call received from Dr. Zapata at [facility] regarding a 35-year-old female patient with concern for cauda equina syndrome. Patient has a longstanding history of low back pain for several months. Patient originally presented to [facility] on 09/13 due to acute worsening of this low back pain after an episode of heavy lifting. An MRI obtained at that time demonstrated mild L4/L5 canal stenosisas well as moderate left L4/L5 foraminal stenosis. However there is no evidence of significant cordcompression at this time. According to referring provider patient was reportedly sensorimotor intact at this time. Patient was discharged and demonstrating improvement on steroids. However, patient represented to [facility] today due to worsening low back pain [...] sensation. Patient has reportedly intact rectal tone. In the context of these new symptoms, I recommended that the provider obtain a new MRI without contrast to assess for interval change that would explain the symptoms. Based on the MRI obtained from 09/13 there is no central cord compression that would explain bowel/bladder dysfunction or cauda equina syndrome. The referring provider we will plan on contacting the transfer center again once this imaging is done for further recommendations. documented in this encounter Plan of Treatment Upcoming Encounters Date Type Department Care Team (Late st Contact Info) Description 12/24/2023 10:00 AM EDT Office Visit [place] [phone] Tereso Mohan MD [facility] [place] [address] 12/24/2023 10:30 AM EDT Appointment XRay at [address] [place] [phone] Shelby Aaron VP COMMUNICATIONS [facility] [place] [address] 12/24/2023 11:30 AM EDT Office Visit Pain and [place] [phone] Shelby Aaron APRN [facility] [place] [address] documented as of this encounter Visit Diagnoses Not on filedocumented in this encounter Care Teams Cnc Machine Setter Relationship Specialty Start Date End Date Comfort Urban, VP COMMUNICATIONS [address] [facility] [place] [address] PCP - General Family Medicine 07/19/17 03/11/23 documented as of this encounter
--- OUTSIDE RECORDS SUMMARY | 2023-11-16 14:14 | XMS_ITS | Encounter Summary ---
Author Organization [facility] [place] [address] Care Team Providers Care Specification Manager Name Role Phone Comfort Urban APRN Primary Care Provider [phone] Reason for Referral * Consultation (Routine) - Closed Specialty Diagnoses / Procedures Referred By Contac t Referred To Contact Pain and Spine Center Diagnoses Radiculopathy of lumbar region Tereso Mohan MD [facility] [place] [place] [address] Sarah Munguia MD [facility] [place] [address] Referral ID Status Reason Start Date Expiration Date V isits Requested Visits Authorized [id number] Closed Consult, Test & Treat 09/05/2021 09/05/2022 1 1 Encounter Details Date Type Department Care Team (Latest Contact Info) Description 09/05/2021 4:30 PM EDT Office [place] [address] Tereso Mohan MD [facility] [place] [address] Radiculopathy of lumbar region; Hand numbness Social History Tobacco Use Types Packs/Day Years [...] cm (5' 1) 09/05/2021 4:26 PM EDT r eported Body Mass Index 35.14 09/05/2021 4:26 PM EDT documented in this encounter Patient Instructions * Patient Instructions* Tereso Mohan MD - 09/05/2021 5:12 PM EDT I think you are doing reasonably well. Your inpatient video EEG monitoring surprisingly did not capture any epileptic seizures or even show any significant epileptic abnormalities in your brainwave patterns. I do not doubt that you have bnkjlnhac-sn-dyoupgq epileptic seizures. You are also suffering side effects of medication of which tingling in your hands, a side effect oftopiramate, is the most troublesome At this point [...] mg at night and not on the topiramateat all. For now, keep everything else unchanged. [...] meantime. Tereso Mohan MD Professor of neurology, [facility] at [facility] Department of Neurology, [address] Pager: [phone], #[phone] Email: [email or web address] documented in this encounter Progress Notes * Tereso Mohan MD - 09/05/2021 4:30 PM EDT Neurology [...] ?? 2. EEG: ?- Routine EEG:Done at [facility] 05/05/18: Normal study. ?? 3. [...] that led to her being taken to [facility] emergency room. She had bitten side of her tongue quite badly, for the first time. She was discharged from there without change in medication. She had another seizure at home and was taken to the emergency room at [facility] where she was held overnight. I [...] able to continue working full-time at the [employer]. As of 2020 she is doing quite well. She had one breakthrough convulsive seizure associated with missed doses of medication. She has had no other major medical problems. 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 She is having some mid back [...] twice daily to 250, 500 mg at [facility]. 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 ?? Family history: There is no family [...] response was flexor bilaterally. ?? Cerebellar: Normal evhxod-bk-ybut with mild action tremor. ?? Gait: gait was normal. 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 EEG: Routine EEG:Done at [facility] 05/05/18: Normal study. Blood Tests: Blood tests [...] Lumbar epidural steroid injections have definitely helped. Sheis having a recrudescence of symptoms on the left side. I am referring her back to the pain clinic. Thank you for this consultation. I will see her back in 3 months or sooner if necessary Tereso Mohan MD Department [place] [address] Pager #[phone] Email: [email or web address] CC: Comfort Urban APRN documented in this encounter Plan of Treatment Upcoming Encounters Date Type Department Care Team (Late st Contact Info) Description 12/24/2023 10:00 AM EDT Office [place] [address] Tereso Mohan MD [facility] [place] [address] 12/24/2023 10:30 AM EDT Appointment XRay at [address] [place] [phone] Shelby Aaron MASS SPECTROMETRY MANAGER [facility] [place] [address] 12/24/2023 11:30 AM EDT Office Visit Pain and Spine Center at [facility] [place] [address] Shelby Aaron, MASS SPECTROMETRY MANAGER [facility] [place] [address] Scheduled Orders Name Type Priority Associated Diagnoses Orde r Schedule Nerve conduction test Neurology Routine Hand numbness Ordered: 09/05/2021 Scheduled Referrals Name Type Priority Associated Diagnoses Order Schedule Referral to Pain Management Outpatient Referral Routine Radiculopathy of lumbar region Ordered: 09/05/2021 documented as of this encounter Visit Diagnoses Diagnosis Radiculopathy of lumbar region Thoracic or lumbosacral neuritis or radiculitis, unspecified Hand numbness Disturbance of skin sensation documented in this encounter Care Teams Specification Manager Relationship Specialty Start Date End Date Comfort Urban APRN [address] [place] [address] PCP - General Family Medicine 07/19/17 03/11/23 documented as of this encounter
--- OUTSIDE RECORDS SUMMARY | 2023-11-16 14:14 | XMS_ITS | Encounter Summary ---
Author Organization [facility] [place] [address] Care Team Providers Care Compensation And Benefits Manager Name Role Phone Comfort Urban SELVIN Primary Care Provider [phone] Encounter Details Date Type Department Care Team (Late st Contact Info) Description 09/13/2021 Ancillary Procedure Radiology Library at [facility] [place] [phone] Jesús Reyes MD [facility] [place] [address] Social History Tobacco Use Types Packs/Day Years [...] 10:00 AM EDT Office Visit Neurology at [facility] [place] [phone] Tereso Mohan MD [facility] [place] [address] 12/24/2023 10:30 AM EDT Appointment XRay at [address] [place] [phone] Shelby Aaron APRN [facility] [place] [address] 12/24/2023 11:30 AM EDT Office Visit Pain and Spine Center at [facility] [place] [address] Shelby Aaron COMPRESSOR OPERATOR ADJUSTER [facility] [place] [address] documented as of this encounter Procedures Procedure Name Priority Date/Time Associated Diagnosis Comments FILM LIBRARY STORAGE ONLY MR SPINE Routine 09/13/2021 12:00 AM EDT documented in this encounter Results * Film Library- Storage Only MR Spine (09/13/2021 12:00 AM EDT) Narrative [facility] - 09/19/2021 5:40 AM EDT This exam is auto-finalizing. It's purpose is for storage only. Jesús Reyes MD IMG FILM LIBRARY ORD ERABLES [place], [place] documented in this encounter Visit Diagnoses Not on filedocumented in this encounter Care Teams Compensation And Benefits Manager Relationship Specialty Start Date End Date Comfort Urban APRN [address] [place] [address] PCP - General Family Medicine 07/19/17 03/11/23 documented as of this encounter
--- OUTSIDE RECORDS SUMMARY | 2023-11-16 14:14 | XMS_ITS | Encounter Summary ---
Author Organization [facility] [place] [address] Care Team Providers Care Eye Specialist Name Role Phone Comfort Urban APRN Primary Care Provider Encounter Details Date Type Department Care Team (Late st Contact Info) Description 09/29/2021 [place] [phone] Tereso Mohan MD [facility] [place] [address] Social History Tobacco Use Types Packs/Day Years [...] Telephone Encounter - Elizabeth Ledesma RN - 09/29/2021 10:16 AM EDT Message forwarded to Dr. Mohan. * Telephone Encounter - Elizabeth Ledesma RN - 09/29/2021 9:58 AM EDT Copied from CRM #[id number]. Topic: Specialty Dept CRMs - Generic Call >> Sep 29, 2021 8:57 AM Jeri Villalta wrote: Specialist: Tereso Mohan MD Relationship (if other than patient-full name): Reason for Call: Bessie calling in states that Dr. Mohan wanted her to call and give an update on how the new medication is helping her after 6 weeks of use. She states that she is doing well on it but states that she is still having tingling in her fingers. She states that she is completely switched over to the cloBAZam (Onfi) 10 mg Tablet and is no longer taking the topiramate (Topamax) 200 mg Tablet and states that she is still having the tingling in her fingers. Please call Bessie back to further discuss. documented in this encounter Plan of Treatment Upcoming Encounters Date Type Department Care Team (Late st Contact Info) Description 12/24/2023 10:00 AM EDT [place] [address] Tereso Mohan MD [facility] [place] [address] 12/24/2023 10:30 AM EDT Appointment XRay at [address] [place] [address] Shelby Aaron APRN [facility] PAIN [place] [address] 12/24/2023 11:30 AM EDT Office Visit [place] [phone] Shelby Aaron APRN [facility] [place] [address] documented as of this encounter Visit Diagnoses Not on filedocumented in this encounter Care Teams Eye Specialist Relationship Specialty Start Date End Date Comfort Urban APRN [address] [place] [address] PCP - General Family Medicine 07/19/17 03/11/23 documented as of this encounter
--- OUTSIDE RECORDS SUMMARY | 2023-11-16 14:14 | XMS_ITS | Encounter Summary ---
[place] [address] Care Team Providers Care Car Parker Name Role Phone Comfort Urban APRN Primary Care Provider [phone] Reason for Visit * Reason Onset Date Comments Patient Education 06/28/2021 Encounter Details Date Type Department Care Team (Late st Contact Info) Description 06/28/2021 Telephone [place] [address] Tereso Mohan MD [facility] [place] [address] Patient Education Social History Tobacco Use Types [...] Telephone Encounter - Bette Carver RN - 06/28/2021 3:04 PM EDT Message left for Bessie to return a call to this television script writer to discuss her upcoming [facility]EEG admission scheduled for 07/04/21. documented in this encounter Plan of Treatment Upcoming Encounters Date Type Department Care Team (Late st Contact Info) Description 12/24/2023 10:00 AM EDT Office Visit Neurology at [place] [phone] Tereso Mohan MD [facility] [place] [address] 12/24/2023 10:30 AM EDT Appointment XRay at [address] [place] [phone] Shelby Aaron APRN [facility] [place] [address] 12/24/2023 11:30 AM EDT Office Visit Pain [place] [phone] Shelby Aaron APRN [facility] [place] [address] documented as of this encounter Visit Diagnoses Not on filedocumented in this encounter Care Teams Car Parker Relationship Specialty Start Date End Date Comfort Urban APRN [address] [place] [address] PCP - General Family Medicine 07/19/17 03/11/23 documented as of this encounter
--- OUTSIDE RECORDS SUMMARY | 2023-11-16 14:15 | XMS_ITS | Encounter Summary ---
Author Organization [facility] [place] [address] Care Team Providers Care Light Armored Reconnaissance Officer Name Role Phone Comfotr Urban APRN Primary Care Provider [phone] Encounter Details Date Type Department Care Team (Late st Contact Info) Description 03/24/2019 5:00 PM EST Office [place] [address] Tereso Mohan MD [facility] [place] [address] Seizures Social History Tobacco Use Types Packs/Day [...] * Patient Instructions* Tereso Mohan MD - 03/24/2019 5:00 PM [...] tremor. I am concerned about this but do not see a good solution. I think you should also continue the Celexa and the Abilify. Those may also be contributing to someof the side effects you are having. With [...] in 6 months or sooner if necessary. Terseo Mohan MD Professor of neurology, [facility] [employer] at [facility] Department of Neurology, [address] Pager: [phone], [phone] Email: [email or web address] documented in this encounter Progress Notes * Tereso Mohan MD - 03/24/2019 5:00 PM EST Neurology clinic note Chief complaint: Epilepsy. History: The patient is seen in follow-up today. As noted earlier, the patient is a 32 y/o right handed woman, referred by Ms. Comfort Urban APRN for [...] ?? 2. EEG: ?- Routine EEG:Done at [facility] 05/05/18: Normal study. ?? 3. Epilepsy Monitoring [...] that led to her being taken to [facility] emergency room. 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 ?? Family history: There is no family [...] response was flexor bilaterally. ?? Cerebellar: Normal [id number] ?? Gait: gait was normal. Laboratory studies: 1. Brain imaging: ?- MRI brain was done in 2016 was unremarkable per patient. -MRI brain: 05/10/2018- No acute intracranial abnormality ? -CT scan head- None ?? 2. EEG: ?- Routine EEG:Done at [facility] 05/05/18: Normal study. Blood Tests: Orders Placed [...] EEG. It is reassuring that MRI isnormal. Unfortunately she has suffered side effects of [...] can keep her on Abilify and Celexa has she suffered from suicidal depression in the past. 3. She is complaining of chronic pain particularly sciatic pain on right. I did not go into this indetail today. There is no obvious neurological deficit. [...] necessary. Tereso Mohan MD Department [place] [address] Pager #[phone] Email: [email or web address] CC: Comfort Urban APRN documented in this encounter Plan of Treatment Upcoming Encounters Date Type Department Care Team (Late st Contact Info) Description 12/24/2023 10:00 AM EDT Office [place] [address] Tereso Mohan MD [facility] [place] [address] 12/24/2023 10:30 AM EDT Appointment XRay at [address] [place] [phone] Shelby Aaron [facility] [place] [address] 12/24/2023 11:30 AM EDT Office Visit [facility] [place] [address] Shelby Aaron MATERIALS INTERN [facility] [place] [address] documented as of this encounter Procedures Procedure Name Priority Date/Time Associated Diagnosis Comments HEMOGRAM Routine 03/24/2019 6:04 PM EST Seizures DIFFERENTIAL, AUTOMATED Routine 03/24/2019 6:04 PM EST Seizures HC PCH CARNITINE Routine 03/24/2019 6:04 PM EST Seizures HC PCH TOPIRAMATE Routine 03/24/2019 6:0 4 PM EST Seizures HC CBC,PLT & AUTO DIFF Routine 03/24/2019 6:04 PM EST Seizures HC THYROID STIMULATING HORMONE, SERUM Routine 03/24/2019 6:04 PM EST Seizures HC TOTAL T4 Routine 03/24/2019 6:04 PM EST Seizures HC VITAMIN B12 SERUM Routine 03/24/2019 6:04 PM EST Seizures HC AMMONIA, PLASMA Routine 03/24/2019 6: 04 PM EST Seizures HC VALPROIC ACID Routine 03/24/2019 6:04 PM EST Seizures HEPATIC FUNCTION PANEL Routine 03/24/2019 6:04 PM EST Seizures BASIC METABOLIC PANEL Routine 03/24/2019 6:04 PM EST Seizures documented in this encounter Results * (ABNORMAL) Differential, Automated (03/24/2019 6:04 PM EST) Neutrophil % 47.0 % [facility] Neutrophil Absolute 4.59 1.70 - 6.10 x10(3)/mc L [facility] Lymph % 39.3 % [facility] Lymphocytes Abs 3.8(H) 0.9 - 3.2 x10(3)/mc L [facility] Monocyte % 10.2 % [facility] Monocyte Abs 1.0(H) 0.3 - 0.9 x10(3)/mc L [facility] Eos % 2.7 % [facility] Eosinophils Abs 0.3 0.0 - 0.4 x10(3)/mc L [facility] Basophil % 0.6 % [facility] Baso Absolute 0.1 0.0 - 0.1 x10(3)/mc L [facility] Immature Gran % 0.20 % [facility] Comment: Immature granulocytes(IG's)percentage and absolute count will include metamyelocytes, myelocytes, and promyelocytes. Blood smears from CBCs yielding IG's will be scanned manually for concordance. If this scan disagrees with the automated IG or if promyelocytes are noted, a manual differential will be performed. Immature Gran Absolute 0.02 0.00 - 0.04 x10(3)/mc L [facility] Blood specimen (specimen) 03/24/2019 6:04 PM EST 03/24/2019 6:30 PM EST Narrative Resulting Agency Comment Spec In Lab Tereso Mohan MD HEMATOLOGY ORDERABLE S Performing Organization Address City/State/[facility] Co de Phone Number [facility] [place] [address] * (ABNORMAL) Hemogram (03/24/2019 6:04 PM EST) White Blood Cell 9.8(H) 4.0 - 9.5 x10(3)/mc L [facility] Red Blood Cell 4.60 4.00 - 5.21 x10(6)/mc L [facility] Hemoglobin 13.7 11.7 - 15.5 gm/dL [facility] Hematocrit 40.4 35.7 - 45.8 % [facility] Mean Cell Volume 87.8 82.6 - 94.4 fL [facility] Mean Cell Hemoglobin 29.8 27.1 - 32.0 pg [facility] Mean Cell Hemoglobin Concentration 33.9 31.7 - 35.0 gm/dL [facility] Platelet 281 145 - 357 x10(3)/mc L [facility] RDW Standard Deviation 38.3 37.0 - 46.0 fL [facility] RDW coefficient of variation 11.9 11.5 - 14.1 % [facility] Mean Platelet Volume 9.5 7.6 - 12.9 fL [facility] NRBC% auto 0.0 % [facility] NRBC Absolute 0.000 0.000 - 0.000 x10(3)/mc L [facility] Blood specimen (specimen) 03/24/2019 6:04 PM EST 03/24/2019 6:30 PM EST Narrative Resulting Agency Comment Spec In Lab Tereso Mohan MD HEMATOLOGY ORDERABLE S [facility] [place] [address] * Carnitine (03/24/2019 6:04 PM EST) Carnitine Test ?Result ?Flag ??Unit ? RefValue --- Carnitine, S ??Total ? 38 ?nmol/mL ??34-78 ??Free (FC) ? 31 ?nmol/mL ??25-54 ??Acylcarnitine (AC) ?7 ? nmol/mL ??5-30 ??AC/FC Ratio ? 0.2 ?0.1-0.8 ??Interpretation ?In this sample, the carnitine profile was normal. ? --ADDITIONAL INFORMATION-------- ?This test was developed and its performance characteristics ?determined by [facility] in a manner consistent with CLIA ?requirements. This test has not been cleared or approved by ?the U.S. Food and Drug Administration. ?Test Performed by: ?[facility] ?[address] [place] [address] ?Supplier Relationship Director: Tito King M.D. Ph.D.; CLIA# [id number] [facility] Blood specimen (specimen) 03/24/2019 6:04 PM EST 03/25/2019 2:47 PM EST Narrative Resulting Agency Comment Spec In Lab Tereso Mohan MD LAB SEND OUT ORDERAB LES Performing Organization Address [facility] Co de Phone Number [facility] [place] [address] * T4 Total (03/24/2019 6:04 PM EST) T4 Total 5.5 5.3 - 11.6 mcg/dL [facility] Comment: Reference Range: Females: First Trimester: 6.2-13.3 mcg/dL Second Trimester: 7.0-14.7 mcg/dL Third Trimester: 7.0-14.7 mcg/dL Blood specimen (specimen) 03/24/2019 6:04 PM EST 03/24/2019 6:30 PM EST Narrative Resulting Agency Comment Spec In Lab Tereso Mohan MD CHEMISTRY ORDERABLES Performing Organization Address [facility] Co de Phone Number [facility] [place] [address] * Vitamin B12 (03/24/2019 6:04 PM EST) Vitamin B12 943 232 - 1,245 pg/mL [facility] Blood specimen (specimen) 03/24/2019 6:04 PM EST 03/24/2019 6:30 PM EST Narrative Resulting Agency Comment Spec In Lab Tereso Mohan MD CHEMISTRY ORDERABLES Performing Organization Address City/[facility]/ZIP Co de Phone Number [facility] [place] [address] * TSH (03/24/2019 6:04 PM EST) Thyroid Stimulating Hormone 3.21 0.27 - 4.20 mcIU/mL [facility] Blood specimen (specimen) 03/24/2019 6:04 PM EST 03/24/2019 6:30 PM EST Narrative Resulting Agency Comment Spec In Lab Tereso Mohan MD CHEMISTRY ORDERABLES Performing Organization Address [facility] Co de Phone Number [facility] [place] [address] * Topiramate level (03/24/2019 6:04 PM EST) Topiramate Lvl (JULY) 12.7 mcg/mL [facility] Comment: REFERENCE VALUE Reference values depend on clinical use: Anticonvulsant: 5.0-20.0 mcg/mL Psychiatric: 2.0-8.0 mcg/mL ADDITIONAL INFORMATION This test was developed and its performance characteristics determined by [facility] in a manner consistent with CLIA requirements. This test has not been cleared or approved by the U.S. Food and Drug Administration. Test Performed by: [facility] - [address] [address] Supplier Relationship Director: Tito King M.D. Ph.D.; CLIA# [id number] Blood specimen (specimen) 03/24/2019 6:04 PM EST 03/25/2019 8:42 AM EST Narrative Resulting Agency Comment Spec In Lab Tereso Mohan MD LAB SEND OUT ORDERAB LES Performing Organization Address [facility] Co de Phone Number [facility] [place] [address] * Ammonia (03/24/2019 6:04 PM EST) Ammonia 24 11 - 51 mcmol/L [facility] Blood specimen (specimen) 03/24/2019 6:04 PM EST 03/24/2019 6:08 PM EST Narrative Resulting Agency Comment Spec In Lab Tereso Mohan MD CHEMISTRY ORDERABLES Performing Organization Address [facility] de Phone Number [facility] [place] [address] * (ABNORMAL) Basic Metabolic Panel (non-fasting) (03/24/2019 6:04 PM EST) Glucose 75 65 - 199 mg/dL [facility] Comment:Diabetes: >=200 mg/d L plus symptoms Blood Urea Nitrogen 9 8 - 18 mg/dL [facility] Creatinine 0.66(L) 0.70 - 1.20 mg/dL [facility] Sodium 139 135 - 145 mmol/L [facility] Potassium 3.6 3.5 - 5.0 mmol/L [facility] Comment: Please note: ??Patients with WBC >100,000 may have falsely elevated Potassium levels. ??For accurate Potassium quantification in these patients send serum separator tube (gold top) for subsequent determinations. ??Contact the Clinical Chemistry Laboratory if there are any questions. Chloride 107 98 - 107 mmol/L [facility] Carbon Dioxide 20(L) 22 - 31 mmol/L [facility] Anion Gap 12 5 - 15 mmol/L [facility] Calcium 9.1 8.5 - 10.5 mg/dL [facility] Est Glomerular Filtration Rate 114 >=60 mL/min/1. 73 m?? [facility] Comment: The eGFR was calculated using the CKD-EPI equation. As with all creatinine based estimates of kidney function, eGFR values calculated with the CKD-EPI equation are not accurate in patients with acute kidney failure, extremes of body mass or the acutely ill. http://[employer]/[facility] eGFR 133 >=60 mL/min/1. 73 m?? [facility] Comment: The eGFR was calculated using the CKD-EPI equation. As with all creatinine based estimates of kidney function, eGFR values calculated with the CKD-EPI equation are not accurate in patients with acute kidney failure, extremes of body mass or the acutely ill. http://[employer]/[facility] Blood specimen (specimen) 03/24/2019 6:04 PM EST 03/24/2019 6:30 PM EST Narrative Resulting Agency Comment Spec In Lab Tereso Mohan MD CHEMISTRY ORDERABLES [facility] [place] [id number] * (ABNORMAL) Hepatic Function Panel (03/24/2019 6:04 PM EST) Protein, Total 7.7 6.1 - 8.0 gm/dL [facility] Albumin 4.5 3.2 - 5.2 gm/dL [facility] Aspartate Aminotransferase 17 0 - 30 unit/L [facility] Alanine Aminotransferase 16 0 - 30 unit/L [facility] Alkaline Phosphatase 31(L) 35 - 105 unit/L [facility] Bilirubin, Total 0.3 0.2 - 1.3 mg/dL [facility] Bilirubin, Direct 0.1 0.0 - 0.3 mg/dL [facility] Blood specimen (specimen) 03/24/2019 6:04 PM EST 03/24/2019 6:30 PM EST Narrative Resulting Agency Comment Spec In Lab Tereso Mohan MD CHEMISTRY ORDERABLES Performing Organization Address City/[facility]/ZIP Co de Phone Number [facility] [place] [address] * Valproic Acid Level, Total (03/24/2019 6:04 PM EST) Valproic Acid 54 mg/L [facility] Comment: Therapeutic Range: Anticonvulsant Therapy: ??50-100 mg/L Manic Episodes Associated with Bipolar Disorder: ??50-125 mg/L Blood specimen (specimen) 03/24/2019 6:04 PM EST 03/24/2019 6:30 PM EST Narrative Resulting Agency Comment Spec In Lab Tereso Mohan MD CHEMISTRY ORDERABLES Performing Organization Address [facility] Co de Phone Number [facility] [place] [address] documented in this encounter Visit Diagnoses Diagnosis Seizures Other convulsions documented in this encounter Care Teams Light Armored Reconnaissance Officer Relationship Specialty Start Date End Date Comfort Urban, SELVIN [address] [place] [address] PCP - General Family Medicine 07/19/17 03/11/23 documented as of this encounter
--- OUTSIDE RECORDS SUMMARY | 2023-11-16 14:15 | XMS_ITS | Encounter Summary ---
Author Organization [facility] [place] [address] Care Team Providers Care Municipal Maintenance Worker Name Role Phone Comfort Urban APRN Primary Care Provider [phone] Reason for Visit * Reason Comments Medication Refill Encounter Details Date Type Department Care Team (Late st Contact Info) Description 12/28/2020 [place] [address] Tereso Mohan MD [facility] [place] [address] Social History Tobacco Use Types Packs/Day Years [...] EDT Office Visit Neurology at [place] [phone] Tereso Mohan MD [facility] [place] [address] 12/24/2023 10:30 AM EDT Appointment XRay at [address] [place] [address] Shelby Aaron APRN [facility] [place] [address] 12/24/2023 11:30 AM EDT Office Visit [facility] [place] [address] Shelby Aaron, HEAT TREAT TECHNICIAN [facility] [address] documented as of this encounter Visit Diagnoses Not on filedocumented in this encounter Care Teams Municipal Maintenance Worker Relationship Specialty Start Date End Date Comfort Urban APRN [address] [place] [address] PCP - General Family Medicine 07/19/17 03/11/23 documented as of this encounter
--- OUTSIDE RECORDS SUMMARY | 2023-11-16 14:15 | XMS_ITS | Encounter Summary ---
Author Organization [facility] [place] [address] Care Team Providers Care Child Care Aide Name Role Phone Comfort Urban APRN Primary Care Provider [phone] Encounter Details Date Type Department Care Team (Late st Contact Info) Description 02/22/2020 1:00 PM EST Office [place] [address] Tereso Mohan MD [facility] [place] [address] Sciatica of right side; Seizures Social History Tobacco Use Types Packs/Day [...] 36.5 ??C (97.7 ??F) 02/22/2020 12:[address] Respiratory Rate - - Oxygen Saturation - - Inhaled Oxygen Concentration - - Weight 73.9 kg (163 lb) 02/22/2020 12:51 PM EST Height 154.9 cm (5' 1) 02/22/2020 12:51 PM EST Body Mass Index 30.8 02/22/2020 12:51 PM EST documented in this encounter Patient Instructions * Patient Instructions* Tereso Mohan MD - 02/22/2020 1:00 PM EST I think you are doing reasonably well. Seizures appear to be controlled. You should stay on the same medications for now. Your blood tests were all fine 9 months ago and I do not think you need any today. The pinched nerve your back seems better following the steroid injection. This can be repeated onceor twice a year as needed. Please continue with physical therapy. Please call with any problems I would like to see you back in 6 months or sooner if necessary. Tereso Mohan MD Professor of neurology, [facility] at [facility] Department of Neurology, [address] Pager: [phone], #[phone] Email: [email or web address] documented in this encounter Progress Notes * Tereso Mohan MD - 02/22/2020 1:00 PM [...] 2. EEG: ?- Routine EEG:Done at [facility] 05/05/18: Normal study. [...] that led to her being taken to [facility] emergency room. She had bitten side of her tongue quite badly, for the first time. She was discharged from there without change in medication. She had another seizure at home and was taken to the emergency room at [facility] where she was held overnight. I [...] able to continue working full-time at the [employer]. 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 Currently working at the [email or web address] ?? Family history: There is no family [...] response was flexor bilaterally. ?? Cerebellar: Normal [id number] with mild action tremor. ?? Gait: gait was normal. 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 EEG: Routine EEG:Done at [facility] 05/05/18: Normal study. [...] is reassuring that MRI isnormal. She is doing well on the combination of Depakote and Topamax, and Topamax has helped her tolose weight. I am inclined to make no [...] MRI findings are confirmatory as noted above. Lumbar epidural steroid injection has definitely helped relieve the sciatic symptoms right. Thank you for this consultation. I will see the patient back in the epilepsy clinic in 6 months or sooner if necessary. Tereso Mohan MD Department [place] [address] Pager #[phone] Email: [email or web address] CC: Comfort Munguia documented in this encounter Plan of Treatment Upcoming Encounters Date Type Department Care Team (Late st Contact Info) Description 12/24/2023 10:00 AM EDT Office [place] [address] Tereso Mohan MD [facility] [place] [address] 12/24/2023 10:30 AM EDT Appointment XRay at [address] [place] [address] Shelby Aaron APRN [facility] [place] [address] 12/24/2023 11:30 AM EDT Office Visit [facility] [place] [address] Shelby Aaron APRN [facility] [place] [address] documented as of this encounter Visit Diagnoses Diagnosis Sciatica of right side Sciatica Seizures Other convulsions documented in this encounter Care Teams Child Care Aide Relationship Specialty Start Date End Date Comfort Urban APRN [address] [place] [address] PCP - General Family Medicine 07/19/17 03/11/23 documented as of this encounter
--- OUTSIDE RECORDS SUMMARY | 2023-11-16 14:15 | XMS_ITS | Encounter Summary ---
Author Organization [facility] [place] [address] Care Team Providers Care Shrimp Picker Name Role Phone Lilian Julien Fabiola MONTALVO Primary Care Provider [phone] Reason for Visit * Reason Onset Date Comments Medication Refill 01/25/2021 Encounter Details Date Type Department Care Team (Late st Contact Info) Description 01/25/2021 [place] [phone] Tereso Mohan MD [facility] [place] [address] Social History Tobacco Use Types Packs/Day Years [...] 10:00 AM EDT [place] [phone] Tereso Mohan MD [facility] [place] [address] 12/24/2023 10:30 AM EDT Appointment XRay at [address] [place] [address] Shelby Aaron BOOKKEEPER ASSISTANT [facility] [place] [address] 12/24/2023 11:30 AM EDT Office Visit [facility] at [facility] [place] [address] Shelby Aaron APRN [facility] [place] [address] documented as of this encounter Visit Diagnoses Not on filedocumented in this encounter Care Teams Shrimp Picker Relationship Specialty Start Date End Date Lilian Julien APRN [facility] [place] [address] PCP - General Family Medicine 03/12/23 documented as of this encounter
--- OUTSIDE RECORDS SUMMARY | 2023-11-16 14:15 | XMS_ITS | Encounter Summary ---
Author [place] [address] Care Team Providers Care [employer] Consultant Name Role Phone Comfort Urban APRN Primary Care Provider [phone] Encounter Details Date Type Department Care Team (Latest Contact Info) Description 07/10/2018 1:49 PM EDT - 07/10/2018 11:59 PM EDT Hospital Encounter Non-Invasive [place] [address] Tereso Mohan MD [facility] [place] [address] Seizures Discharge Disposition: Home Social History Tobacco Use [...] Start Date End Date ARIPiprazole (ABILIFY) 2 mg Tablet Take 2 mg by mouth daily. 0 02/03/2018 UNABLE TO FIND Take by mouth as needed. Med Name: CBD oil topiramate (TOPAMAX) 25 mg Tablet Take 1 tablet by mouth daily. 60 tablet 5 06/11/2018 07/14/2018 divalproex (DEPAKOTE) 500 mg Tablet, Delayed Release (E.C.) Take 500 mg by mouth 2 times daily. 0 04/12/2018 09/03/2018 gabapentin (NEURONTIN) 600 mg Tablet Take 600 mg by mouth 2 times daily. 0 03/30/2018 03/24/2019 citalopram (CELEXA) 20 mg Tablet Take 40 mg by mouth daily. 0 02/03/2018 03/12/2023 hydroCHLOROthiazide (MICROZIDE) 12.5 mg Capsule Take 12.5 mg by mouth daily. 0 02/03/2018 04/07/2021 atorvastatin (LIPITOR) 20 mg Tablet Take 20 mg by mouth nightly. 0 03/05/2018 07/04/2021 FLOVENT HFA 110 mcg/actuation HFA Aerosol Inhaler Inhale 2 puffs into the lungs 2 times daily. 0 03/21/2018 11/08/2021 intrauterine device (PARAGARD) 380 square mm IUD by Intrauterine route Continuous (Device). Expected removal date 09/16/2019 ibuprofen (ADVIL;MOTRIN) 800 mg Tablet Take 800 mg by mouth every 6 hours as needed for Pain. 03/24/2019 documented as of this encounter Plan of Treatment Upcoming Encounters Date Type Department Care Team (Late st Contact Info) Description 12/24/2023 10:00 AM EDT Office Visit Neurology at [place] [phone] Tereso Mohan MD [facility] [place] [address] 12/24/2023 10:30 AM EDT Appointment XRay at [address] [place] [phone] Shelby Aaron APRN [facility] [place] [address] 12/24/2023 11:30 AM EDT Office Visit [facility] [place] [phone] Shelby Aaron APRN [facility] [place] [address] documented as of this encounter Procedures Procedure Name Priority Date/Time Associated Diagnosis Comments HOLTER MONITOR 24 HOUR Routine 07/10/2018 2:21 PM EDT Seizures documented in this encounter Results * Holter Monitor 24hr (07/10/2018 2:21 PM EDT) Anatomical Region Laterality Modality Other Narrative 07/23/2018 4:25 PM EDT This is a holter monitor report for [...] sinus rhythm. C) No sustained arrhythmias were observed. D) No symptomatic bradycardia or high grade AV block was observed. Rory Salazar MD [...] peaks at 55 bpm and 75 bpm. Normaldiurnal variation in heart rate is observed. Beats in tachycardia (>100 bpm): <1% Beats in bradycardia (<60 bpm): 42% 93,016 QRS complexes 0 PVCs 4 PACs Symptoms Patient event at 16:06: sinus rhythm at 79 bpm. Impression A) Predominant rhythm is sinus. B) Patient event occurred during normal sinus rhythm. C) No sustained arrhythmias were observed. D) No symptomatic bradycardia or high grade AV block was observed. Rory Salazar MD S Cardiac Electrophysiology 07/23/2018 4:25 PM Tereso Mohan MD [facility] ORD ERABLES documented in this encounter Visit Diagnoses Diagnosis Seizures Other convulsions documented in this encounter Care Teams [employer] Consultant Relationship Specialty Start Date End Date Comfort Urban, EMERGENCY SPECIALIST [address] [place] [address] PCP - General Family Medicine 07/19/17 03/11/23 documented as of this encounter
--- OUTSIDE RECORDS SUMMARY | 2023-11-16 14:15 | XMS_ITS | Encounter Summary ---
Author [facility] [place] [address] Care Team Providers Care Tape Controlled Machine Stitcher Name Role Phone Comfort Urban APRN Primary Care Provider [phone] Reason for Visit * Reason Onset Date Comments Medication Refill 11/28/2020 Encounter Details Date Type Department Care Team (Late st Contact Info) Description 11/28/2020 Ref[place] [phone] Tereso Mohan MD [facility] [place] [address] Social History Tobacco Use Types Packs/Day Years [...] AM EDT Office [place] [phone] Tereso Mohan MD [facility] [place] [address] 12/24/2023 10:30 AM EDT Appointment XRay at [address] [place] [phone] Shelby Aaron APRN [facility] [place] [address] 12/24/2023 11:30 AM EDT Office Visit [facility] at [facility] [place] [address] Shelby Aaron APRN [facility] [place] [place] [address] documented as of this encounter Visit Diagnoses Not on filedocumented in this encounter Care Teams Tape Controlled Machine Stitcher Relationship Specialty Start Date End Date Comfort Urban APRN [address] [place] [address] PCP - General Family Medicine 07/19/17 03/11/23 documented as of this encounter
--- OUTSIDE RECORDS SUMMARY | 2023-11-16 14:15 | XMS_ITS | Encounter Summary ---
[place] [address] Care Team Providers Care Rubber Cutting Machine Tender Name Role Phone Comfort Urban APRN Primary Care Provider [phone] Encounter Details Date Type Department Care Team (Late st Contact Info) Description 09/01/2018 Telephone [place] [phone] Jd Julien MD [facility] [place] [address] Social History Tobacco Use Types Packs/Day Years [...] encounter Miscellaneous Notes * Telephone Encounter - Jd Julien MD - 09/01/2018 4:35 PM EDT Received a call from Dr. Mendoza at [facility] on this patient. Apparently she is been [...] her in sooner. Jd Julien MD 09/01/2018 Transit Planner General Neurology and Clinical Neurophysiology [facility] Department of Neurology documented in this encounter Plan of Treatment Upcoming Encounters Date Type Department Care Team (Late st Contact Info) Description 12/24/2023 10:00 AM EDT Office [place] [phone] Tereso Mohan MD [facility] [place] [address] 12/24/2023 10:30 AM EDT Appointment XRay at [address] [place] [phone] Shelby Aaron GROUND INSTRUCTOR [employer] [facility] [place] [address] 12/24/2023 11:30 AM EDT Office Visit [facility] [place] [phone] Shelby Aaron GROUND INSTRUCTOR [employer] [facility] [place] [address] documented as of this encounter Visit Diagnoses Not on filedocumented in this encounter Care Teams Rubber Cutting Machine Tender Relationship Specialty Start Date End Date Comfort Urban APRN [address] [place] [address] PCP - General Family Medicine 07/19/17 03/11/23 documented as of this encounter
--- OUTSIDE RECORDS SUMMARY | 2023-11-16 14:15 | XMS_ITS | Encounter Summary ---
Author Organization [facility] [place] [address] Care Team Providers Care Vault Custodian Name Role Phone Comfort Urban APRN Primary Care Provider Encounter Details Date Type Department Care Team (Late st Contact Info) Description 04/07/2021 11:30 AM EST Office [place] [address] Tereso Mohan MD [facility] [place] [place] [address] Seizures; Sciatica of right side; Neuropathy Social History Tobacco Use Types Packs/Day [...] * Patient Instructions* Tereso Mohan MD - 04/07/2021 11:30 AM [...] months. Tereso Mohan MD Professor of neurology, [facility] at [facility] Department of Neurology, [address] Pager: [phone], #[phone] Email: [email or web address] documented in this encounter Progress Notes * Tereso Mohan MD - 04/07/2021 11:30 AM [...] ?? 2. EEG: ?- Routine EEG:Done at [facility] 05/05/18: Normal study. ?? 3. Epilepsy [...] able to continue working full-time at the [employer]. As of 2020 she is doing quite well. She had one breakthrough convulsive seizure associated with missed doses of medication. She has had no other major medical problems. 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 She is having some mid back [...] not have weakness or loss of coordination. Marlon works at the [employer] and is quite busy with her hands.. 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 Currently working at the [employer]. ?? Family history: There is no family [...] symptoms or signs ?? Reflexes: 2+ throughout. ?Plantar response was flexor bilaterally. ?? Cerebellar: Normal [id number] with mild action tremor. ?? Gait: gait was normal. 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 EEG: Routine EEG:Done at [facility] 05/05/18: Normal study. Blood Tests: Blood [...] One breakthrough seizure was associated with missed medication. I advised her that if she missed a [...] pain for which I think application of [place] balm, and taking meloxicam is probably the [...] of work with her hands at the [employer]. Nor does she clearly have ulnar neuropathy or thoracic outlet syndrome. One has to be concerned about a cervical radiculopathy., But I would not do MRI of the cervical spine at this time. I wonder whether we are dealing with side effects of topiramate. Her blood level was quite high.I am repeating this today. Depending on the numbers we [...] necessary. I have asked her to call next week. Tereso Mohan [place] [address] Pager #[phone] Email: [email or web address] CC: Comfort Urban APRN documented in this encounter Plan of Treatment Upcoming Encounters Date Type Department Care Team (Late st Contact Info) Description 12/24/2023 10:00 AM EDT Office Visit Neurology at [place] [phone] Tereso Mohan MD [facility] [place] [address] 12/24/2023 10:30 AM EDT Appointment XRay at [address] [place] [address] Shelby Aaron WINDOWS ADMIN [facility] [place] [address] 12/24/2023 11:30 AM EDT Office Visit [facility] [place] [address] Shelby Aaron WINDOWS ADMIN [facility] [place] [address] documented as of this encounter Procedures Procedure Name Priority Date/Time Associated Diagnosis Comments HC LYME DISEASE, CHENCHO Routine 1:10 PM EST Neuropathy HC VENIPUNCTURE Routine 04/07/2021 1:10 PM EST Seizures Neuropathy HC TISSUE TRANSGLUTAMINASE AB Routine 04/07/2021 1:10 PM EST Seizures Neuropathy HC VITAMIN D TOTAL-25 HYDROXY Routine 04/07/2021 1:10 PM EST Seizures Neuropathy HC PCH TOPIRAMATE Routine 04/07/2021 1:1 0 PM EST Neuropathy HC CARDIOLIPIN ANTIBODIES Routine 04/07/2021 1:10 PM EST Seizures Neuropathy HC ESR-SEDIMENTATION RATE, BLOOD Routine 04/07/2021 1:10 PM EST Neuropathy HC RHEUMATOID FACTOR Routine 04/07/2021 1:10 PM EST Seizures Neuropathy HC PCH ANATITRE (ANDPATTERN) Routine 04/07/2021 1:10 PM EST Neuropathy HC SERUM PROT. ELECTROPHORESIS Routine 04/07/2021 1:10 PM EST Neuropathy HC PHOSPHORUS, SERUM Routine 04/07/2021 1:10 PM EST Neuropathy HC MAGNESIUM, SERUM Routine 04/07/2021 1 :10 PM EST Neuropathy HC HEMOGLOBIN A1C Routine 04/07/2021 1:1 0 PM EST Seizures Neuropathy HC FOLATE, SERUM Routine 04/07/2021 1:10 PM EST Neuropathy HC CREATINE PHOSPHOKINASE, SERUM Routine 04/07/2021 1:10 PM EST Neuropathy HC AMMONIA, PLASMA Routine 04/07/2021 1: 10 PM EST Neuropathy HC VALPROIC ACID Routine 04/07/2021 1:10 PM EST Neuropathy HEPATIC FUNCTION PANEL Routine 1:10 PM EST Neuropathy documented in this encounter Results * (ABNORMAL) Vitamin B1, whole blood (04/07/2021 1:10 PM EST) [facility] Vit B1 Lvl Wb (JULY) 188(H) 70 - 180 nmol/L [facility] Comment: ADDITIONAL INFORMATION This test was developed and its performance characteristics determined by [facility] in a manner consistent with CLIA requirements. This test has not been cleared or approved by the U.S. Food and Drug Administration. Test Performed by: [facility] [address] [place] [address] Family Life Educator: Tito King M.D. Ph.D.; CLIA# [id number] Blood 04/07/2021 1:10 PM EST 04/07/2021 2:51 PM EST Narrative Resulting Agency Comment Spec In Lab Tereso Mohan MD LAB SEND OUT ORDERAB LES Performing Organization Address City/[facility]/ZIP Co de Phone Number [facility] [place] [address] * Folate, serum (04/07/2021 1:10 PM EST) [facility] Folate 6.4 4.8 - 24.2 ng/mL [facility] Blood 04/07/2021 1:10 PM EST 04/07/2021 1:18 PM EST Narrative Resulting Agency Comment Spec In Lab Tereso Mohan MD CHEMISTRY ORDERABLES Performing Organization Address [facility]/ZIP Co de Phone Number [facility] [place] [address] * (ABNORMAL) Vitamin D, 25-Hydroxy (04/07/2021 1:10 PM EST) [facility] Vitamin D Total 25 OH 5(L) 21 - 100 ng/mL [facility] Vit D Interp Deficient [facility] Blood 04/07/2021 1:10 PM EST 04/07/2021 1:18 PM EST Narrative Resulting Agency Comment Spec In Lab Tereso Mohan MD CHEMISTRY ORDERABLES [facility] [place] [address] * Hemoglobin A1c (04/07/2021 1:10 PM EST) Hemoglobin A1c 5.2 4.3 - 5.6 % [facility] Comment: Reference Range: 4.3 - 5.6% 5.7 - 6.4% - Increased Risk of Developing Diabetes Mellitus >= 6.5% - Consistent with diagnosis of Diabetes Mellitus In the absence of hyperglycemia (i.e. plasma glucose > 200 mg/dL) or classic symptoms of hyperglycemia a repeat measurement of HbA1c should be performed on a separate sample to confirm the diagnosis. Diagnosis and Classification of Diabetes Mellitus, Diabetes Care 2013; 36: Suppl. 1, L90-35 Estimated Average Glucose 103 mg/dL [facility] Comment: eAG equivalents for HbA1c percentages: HbA1c(%) ?eAG(mg/dL) 6.0 ?126 6.5 ?140 7.0 ?154 7.5 ?169 8.0 ?183 8.5 ?197 9.0 ?212 9.5 ?226 10.0 ? 240 Limitations: The eAG calculation has not been validated on women, individuals below 18 years old and above 70 years old, and individuals with hemoglobinopathies. Additional resources are available on the ADA website. Martin MCKEON, Fernandez J, Enio R, et al. ??Translating the A1C assay into estimated average glucose values. ??Diabetes Care 2008:31(8):5902-7637. Blood 04/07/2021 1:10 PM EST 04/07/2021 1:18 PM EST Narrative Resulting Agency Comment Spec In Lab Tereso Mohan MD CHEMISTRY ORDERABLES Performing Organization Address [facility] Co de Phone Number [facility] [place] [address] * Rheumatoid factor, quant (04/07/2021 1:10 PM EST) Pathologist [facility] Rheumatoid Factor <10 <=14 IU/mL [facility] Blood 04/07/2021 1:10 PM EST 04/07/2021 1:18 PM EST Narrative Resulting Agency Comment Spec In Lab Tereso Mohan MD CHEMISTRY ORDERABLES Performing Organization Address [facility] Co de Phone Number [facility] [place] [address] * Tissue transglutaminase, IgA (04/07/2021 1:10 PM EST) Pathologist [facility] TTG IgA Ab 0.9 0.1 - 10.0 u/ml [facility] Comment: Negative = <7 U/mL Equivocal = 7-10 U/mL Positive = >10 U/mL Blood 04/07/2021 1:10 PM EST 04/10/2021 6:47 AM EST Narrative Resulting Agency Comment Spec In Lab Tereso Mohan MD IMMUNOLOGY ORDERABLE S Performing Organization Address [facility] Co de Phone Number [facility] [place] [address] * Cardiolipin Antibody Screen (04/07/2021 1:10 PM EST) Cardiolipin Antibody IgG 1.3 <=9.9 GPL-U/mL [facility] Comment: Please note that as of 12/22/2020 that the test method and interpretive criteria for the cardiolipin antibody screen has changed. The interpretive criteria associated with the new assay no longer includes an indeterminate range, and the threshold for positive is lower than the previous method. Cardiolipin Antibody IgM 3.9 <=9.9 MPL-U/mL [facility] Comment: Please note that as of 12/22/2020 that the test method and interpretive criteria for the cardiolipin antibody screen has changed. The interpretive criteria associated with the new assay no longer includes an indeterminate range, and the threshold for positive is lower than the previous method. Blood 04/07/2021 1:10 PM EST 04/10/2021 6:47 AM EST Narrative Resulting Agency Comment Spec In Lab Tereso Mohan MD IMMUNOLOGY ORDERABLE S [facility] [place] [address] * Topiramate level (04/07/2021 1:10 PM EST) Topiramate Lvl (JULY) 14.7 mcg/mL [facility] Comment: REFERENCE VALUE Reference values depend on clinical use: Anticonvulsant: 5.0-20.0 mcg/mL Psychiatric: 2.0-8.0 mcg/mL ADDITIONAL INFORMATION This test was developed and its performance characteristics determined by [facility] in a manner consistent with CLIA requirements. This test has not been cleared or approved by the U.S. Food and Drug Administration. Test Performed by: [facility] [address] [address] Family Life Educator: Tito King M.D. Ph.D.; CLIA# [id number] Blood 04/07/2021 1:10 PM EST 04/07/2021 2:42 PM EST Narrative Resulting Agency Comment Spec In Lab Authorizing Provider Result Kar Mohan MD LAB SEND OUT ORDERAB LES Performing Organization Address [facility] Co de Phone Number [facility] [place] [address] * CK (04/07/2021 1:10 PM EST) Pathologist [facility] Creatine Kinase 36 0 - 160 unit/L [facility] Blood 04/07/2021 1:10 PM EST 04/07/2021 1:18 PM EST Narrative Resulting Agency Comment Spec In Lab Tereso Mohan MD CHEMISTRY ORDERABLES Performing Organization Address [facility] de Phone Number [facility] [place] [address] * Protein Electrophoresis, serum (04/07/2021 1:10 PM EST) Pathologist [facility] Total Prot Electrophoresis 7.6 6.1 - 8.0 g/dL [facility] Albumin Electrophoresis 4.77 3.60 - 6.00 g/dL [facility] Alpha 1 Globulin 0.17 0.10 - 0.30 g/dL [facility] Alpha 2 Globulin 0.81 0.40 - 0.90 g/dL [facility] Beta Globulin 0.82 0.50 - 1.00 g/dL [facility] Gamma Globulin 1.03 0.50 - 1.30 g/dL [facility] M1 Band None Detected None Detected [facility] Blood 04/07/2021 1:10 PM EST 04/07/2021 1:18 PM EST Narrative Resulting Agency Comment Spec In Lab Authorizing Provider Result Kar Mohan MD CHEMISTRY ORDERABLES Performing Organization Address [facility] Co de Phone Number [facility] [place] [address] * SAVANNAH (04/07/2021 1:10 PM EST) SAVANNAH Ab Screen Test ?Result ? Flag ??Unit ??RefValue Antinuclear Ab, HEp-2 ? <1:80 (Negative) ? <1:80 (Negative) ??Substrate, S ? ADDITIONAL INFORMATION --------- ?Method: Immunofluorescence using HEp-2 cellular substrate. ?Test Performed by: ?[facility] ?[address] [place] [address] ?Family Life Educator: Tito King M.D. Ph.D.; CLIA# [id number] [facility] Blood 04/07/2021 1:10 PM EST 04/07/2021 2:42 PM EST Narrative Resulting Agency Comment Spec In Lab Tereso Mohan MD LAB SEND OUT ORDERAB LES [facility] [place] [address] * Phosphorus (04/07/2021 1:10 PM EST) Phosphorus 3.1 2.5 - 4.5 mg/dL [facility] Blood 04/07/2021 1:10 PM EST 04/07/2021 1:18 PM EST Narrative Resulting Agency Comment Spec In Lab Tereso Mohan MD CHEMISTRY ORDERABLES Performing Organization Address [facility] Co de Phone Number [facility] [place] [address] * Magnesium (04/07/2021 1:10 PM EST) Magnesium 0.85 0.69 - 1.07 mmol/L [facility] Blood 04/07/2021 1:10 PM EST 04/07/2021 1:18 PM EST Narrative Resulting Agency Comment Spec In Lab Tereso Mohan MD CHEMISTRY ORDERABLES Performing Organization Address [facility] Co de Phone Number [facility] [place] [address] * Sedimentation rate (04/07/2021 1:10 PM EST) Sedimentation Rate Automated 5 2 - 37 mm/hr [facility] Comment: Effective February 11, 2019 new capillary photometric technology has resulted in a change in reference ranges. It is recommended that each ESR result be reviewed with its own age appropriate reference range. Blood 04/07/2021 1:10 PM EST 04/07/2021 1:18 PM EST Narrative Resulting Agency Comment Spec In Lab Tereso Mohan MD HEMATOLOGY ORDERABLE S Performing Organization Address [facility] Co de Phone Number [facility] [place] [address] * Lyme IgG & IgM Antibody (04/07/2021 1:10 PM EST) Lyme Antibody Neg Neg [facility] Blood 04/07/2021 1:10 PM EST 04/11/2021 7:23 AM EST Narrative Resulting Agency Comment Spec In Lab Tereso Mohan MD IMMUNOLOGY ORDERABLE S Performing Organization Address City/[facility]/ZIP Co de Phone Number [facility] [place] [address] * (ABNORMAL) Hepatic Function Panel (04/07/2021 1:10 PM EST) [facility] Protein, Total 7.6 6.1 - 8.0 g/dL [facility] Albumin 4.4 3.2 - 5.2 g/dL [facility] Aspartate Aminotransferase 15 0 - 30 unit/L [facility] Alanine Aminotransferase 16 0 - 30 unit/L [facility] Alkaline Phosphatase 33(L) 35 - 105 unit/L [facility] Bilirubin, Total 0.3 0.2 - 1.3 mg/dL [facility] Bilirubin, Direct 0.1 0.0 - 0.3 mg/dL [facility] Blood 04/07/2021 1:10 PM EST 04/07/2021 1:18 PM EST Narrative Resulting Agency Comment Spec In Lab Tereso Mohan MD CHEMISTRY ORDERABLES Performing Organization Address [facility] Co de Phone Number [facility] [place] [address] * Ammonia (04/07/2021 1:10 PM EST) [facility] Ammonia 19 11 - 51 mcmol/L [facility] Blood 04/07/2021 1:10 PM EST 04/07/2021 1:15 PM EST Narrative Resulting Agency Comment Spec In Lab Tereso Mohan MD CHEMISTRY ORDERABLES Performing Organization Address City/[facility]/ZIP Co de Phone Number [facility] [place] [address] * Valproic Acid Level, Total (04/07/2021 1:10 PM EST) [facility] Valproic Acid 56 mg/L [facility] Comment: Therapeutic Range: Anticonvulsant Therapy: ??50-100 mg/L Manic Episodes Associated with Bipolar Disorder: ??50-125 mg/L Blood 04/07/2021 1:10 PM EST 04/07/2021 1:18 PM EST Narrative Resulting Agency Comment Spec In Lab Tereso Mohan MD CHEMISTRY ORDERABLES Performing Organization Address City/State/[facility] Co de Phone Number [facility] [place] [phone] documented in this encounter Visit Diagnoses Diagnosis Seizures Other convulsions Sciatica of right side Sciatica Neuropathy Mononeuritis of unspecified site documented in this encounter Care Teams Vault Custodian Relationship Specialty Start Date End Date Comfort Urban, SELVIN [address] [place] [address] PCP - General Family Medicine 07/19/17 03/11/23 documented as of this encounter
--- OUTSIDE RECORDS SUMMARY | 2023-11-16 14:15 | XMS_ITS | Encounter Summary ---
[place] [address] Care Team Providers Care Video Editing Intern Name Role Phone Comfort Urban APRN Primary Care Provider [phone] Encounter Details Date Type Department Care Team (Late st Contact Info) Description 08/18/2019 Telephone [place] [phone] Gabriella Farmer Social History Tobacco Use Types Packs/Day Years [...] * Telephone Encounter - Gabriella Farmer - 08/20/2019 4:32 PM EDT Called x3, left vm. * Telephone Encounter - Gabriella Farmer - 08/19/2019 9:34 AM EDT Called x2, left vm. * Telephone Encounter - Gabriella Farmer - 08/18/2019 4:14 PM EDT Called x1, pt not available. Calling to reschedule current appt on 08/27 armando/ Kimberlee to next available. Letter sent. documented in this encounter Plan of Treatment Upcoming Encounters Date Type Department Care Team (Late st Contact Info) Description 12/24/2023 10:00 AM EDT Office [place] [address] Tereso Mohan MD [facility] [place] [address] 12/24/2023 10:30 AM EDT Appointment XRay at [address] [place] [phone] Shelby Aaron FINISH MILL OPERATOR [facility] [place] [address] 12/24/2023 11:30 AM EDT Office Visit [facility] [place] [phone] Shelby Aaron FINISH MILL OPERATOR [facility] [place] [address] documented as of this encounter Visit Diagnoses Not on filedocumented in this encounter Care Teams Video Editing Intern Relationship Specialty Start Date End Date Comfort Urban APRN [address] [place] [address] PCP - General Family Medicine 07/19/17 03/11/23 documented as of this encounter
--- OUTSIDE RECORDS SUMMARY | 2023-11-16 14:15 | XMS_ITS | Encounter Summary ---
[place] [address] Care Team Providers Care Patternator Name Role Phone Comfort Urban APRN Primary Care Provider [phone] Reason for Visit * Reason Onset Date Comments Numbness 04/06/2021 Encounter Details Date Type Department Care Team (Late st Contact Info) Description 04/06/2021 [place] [address] Tereso Mohan MD [facility] [place] [address] Numbness Social History Tobacco Use Types Packs/Day Years [...] or next week. Message forwarded to Epi secretary to the vice president to facilitate with scheduling. * Telephone Encounter - Elizabeth Ledesma RN [...] time that she has this numbness and tingling. No other neurological symptoms except for a [...] to this plan. * Telephone Encounter - Karyn Trammell Fabiola - 04/06/2021 11:50 AM EST Call Center / [place] Message - Numbness and / or Tingling Provider patient sees in Clinic: Dr Tereso Mohan Clinical [place] Call Caller and relationship (if other than patient-full name): Patient Call Back Number: [phone] Ok to leave a message: yes Reason for call: Numbness/Tingling Is this symptom still present: yes Where is the numbness/tingling occurring: both hands, fingers. Pain in neck and pain in palms of hands What are the current concerns: could be pinched nerve or fibromyalgia Additional information for the nurse: wants to know if she should come in for appointment. states it feels like fingers are superglued together Disposition of Call: ??? [place] message to the nurse documented in this encounter Plan of Treatment Upcoming Encounters Date Type Department Care Team (Late st Contact Info) Description 12/24/2023 10:00 AM EDT [place] [address] Tereso Mohan MD [facility] [place] [address] 12/24/2023 10:30 AM EDT Appointment XRay at [address] [place] [phone] Shelby Aaron [facility] [place] [address] 12/24/2023 11:30 AM EDT Office Visit [place] [phone] Shelby Aaron LETTER OF CREDIT CLERK [facility] [place] [place] [address] documented as of this encounter Visit Diagnoses Not on filedocumented in this encounter Care Teams Patternator Relationship Specialty Start Date End Date Comfort Urban APRN [address] [place] [address] PCP - General Family Medicine 07/19/17 03/11/23 documented as of this encounter
--- OUTSIDE RECORDS SUMMARY | 2023-11-16 14:15 | XMS_ITS | Encounter Summary ---
Author Organization [facility] [place] [address] Care Team Providers Care Saturator Operator Name Role Phone Comfort Urban APRN Primary Care Provider [phone] Encounter Details Date Type Department Care Team (Late st Contact Info) Description 10/21/2020 Ancillary Procedure Radiology Library at [facility] [place] [place] [phone] Remedios Bird MD [facility] [place] [address] Social History Tobacco Use Types Packs/Day Years [...] 10:00 AM EDT Office Visit Neurology at [facility] [place] [place] [phone] Tereso Mohan MD [facility] [place] [address] 12/24/2023 10:30 AM EDT Appointment XRay at [address] [place] [phone] Shelby Aaron R D ENGINEER [facility] [place] [address] 12/24/2023 11:30 AM EDT Office Visit [facility] and Spine Center at [facility] [place] [place] [address] Shelby Aaron [facility] [place] [address] documented as of this encounter Procedures Procedure Name Priority Date/Time Associated Diagnosis Comments FILM LIBRARY STORAGE ONLY CT SPINE Routine 10/21/2020 12:00 AM EDT documented in this encounter Results * Film Library- Storage Only CT Spine (10/21/2020 12:00 AM EDT) Narrative [facility] - 05/03/2021 12:16 PM EST This exam is auto-finalizing. It's purpose is for storage only. Remedios Bird MD IMG FILM LIBRARY O RDERABLES [place], [place] documented in this encounter Visit Diagnoses Not on filedocumented in this encounter Care Teams Saturator Operator Relationship Specialty Start Date End Date Comfort Urban APRN [address] [place] [address] PCP - General Family Medicine 07/19/17 03/11/23 documented as of this encounter
--- OUTSIDE RECORDS SUMMARY | 2023-11-16 14:15 | XMS_ITS | Encounter Summary ---
[place] [address] Care Team Providers Care Cryptography Teacher Name Role Phone Comfort Urban APRN Primary Care Provider [phone] Reason for Visit * Reason Comments Procedure Encounter Details Date Type Department Care Team (Latest Contact Info) Description 08/08/2018 12:45 PM EDT - 08/08/2018 11:59 PM EDT Hospital En[place] [address] Discharge Disposition: Home Social History Tobacco Use [...] Med Name: CBD oil topiramate (TOPAMAX) 100 mg Tablet 1/2 tab (50mg) twice a day for 2 weeks then increase to 1 tab (100mg) twice a day thereafter 60 tablet 5 07/22/2018 09/03/2018 divalproex (DEPAKOTE) 500 mg Tablet, Delayed Release [...] Pain. 03/24/2019 documented as of this encounter Procedure Notes * Mike Shabazz MD - 08/08/2018 1:32 PM EDTAssociated Order(s): EEG AWAKE, ASLEEP, DROWSY Procedure(s): EEG INNC. RECORDING AWAKE AND ASLEEP, W. HYPERVENT/PHOTIC STIMU PRFM [facility] Department of Neurology Outpatient EEG Report [...] 1 tab (100mg) twice a day thereafter 60 tablet 5 ??? divalproex (DEPAKOTE) 500 mg Tablet, Delayed Release (E.C.) Take 500 mg by mouth 2 times daily.0 ??? gabapentin (NEURONTIN) 600 mg Tablet Take [...] channel digitized electroencephalogram was performed in the [facility]. The 10/20 international system of electrode placement was used and bipolar and referential electrode montages were recorded. In addition to EEG the patient was monitored for EKGand lateral/vertical eye movements. Video was recorded during the session. The duration of the recording was 25 minutes. CREDIT CLERK'S REPORT: Performed by: SR Patient was [...] entirety along with Dr. Charly Nascimento, neurology reisdent, and I agree with the above interpretation as documented. Mike Shabazz MD Attending Epileptologist CC: Comfort Urban APRN documented in this encounter Plan of Treatment Upcoming Encounters Date Type Department Care Team (Late st Contact Info) Description 12/24/2023 10:00 AM EDT [place] [address] Tereso Mohan MD [facility] [place] [address] 12/24/2023 10:30 AM EDT Appointment XRay at [address] [place] [address] Shelby Aaron APRN [facility] [place] [address] 12/24/2023 11:30 AM EDT Office Visit [place] [address] Shelby Aaron APRN [facility] [place] [address] documented as of this encounter Procedures Procedure Name Priority Date/Time Associated Diagnosis Comments EEG INNC. RECORDING AWAKE AND ASLEEP, W. HYPERVENT/PHOTIC STIMU PRFM Routine 08/08/2018 1:32 PM EDT documented in this encounter Visit Diagnoses Not on filedocumented in this encounter Care Teams Cryptography Teacher Relationship Specialty Start Date End Date Comfort Urban, DRAFTER LANDSCAPE [address] [facility] [place] [address] PCP - General Family Medicine 07/19/17 03/11/23 documented as of this encounter
--- OUTSIDE RECORDS SUMMARY | 2023-11-16 14:15 | XMS_ITS | Encounter Summary ---
[place] [address] Care Team Providers Care Long Winder Tender Name Role Phone Comfort Urban APRN Primary Care Provider [phone] Reason for Visit * Auth/Cert Specialty Diagnoses / Procedures Referred By Contac t Referred To Contact Diagnoses Lumbar radiculopathy Procedures PRO INJECTION DX/THER SBST INTRLMNR LMBR/SAC W/IMG GDN INJECTION, EPIDURAL, LUMBAR OR SACRAL (CAUDAL), WITH IMAGING GUIDANCE (WRVU 1.8) Referral ID Status Reason Start Date Expiration Date Visits Re quested Visits Authorized [id number] 1 1 Encounter Details Date Type Department Care Team (Late st Contact Info) Description 01/29/2020 1:45 PM EST - 01/29/2020 2:15 PM EST [place] [address] Sarah Munguia MD [facility] [place] [address] INJECTION, EPIDURAL, LUMBAR OR SACRAL (CAUDAL), WITH [...] EST documented in this encounter Discharge Instructions * Discharge Instructions* Dina Morales RN - 01/29/2020 2:30 PM EST [...] for 20 minutes. Do not apply heat today.. Attempt to empty [...] Date End Date ProAir HFA 90 mcg/actuation HFA Aerosol Inhaler INL 1 TO 2 PFS PO Q 4 TO 6 H PRN 04/20/2019 ARIPiprazole (ABILIFY) 2 mg Tablet Take 2 mg by mouth daily. 0 02/03/2018 UNABLE TO FIND Take by mouth as needed. Med Name: CBD oil MARIJUANA INHL Inhale into the lungs as needed. 06/05/2021 divalproex EC (Depakote) 250 mg Tablet, Delayed Release (E.C.) Take 1 tablet by mouth 2 times daily. 60 tablet 5 12/09/2019 07/05/2020 topiramate (Topamax) 200 mg Tablet Take 1 tablet by mouth 2 times daily. 120 tablet 5 05/13/2019 05/05/2020 MELOXICAM ORAL Take 15 mg by mouth daily. 11/15/2020 citalopram (CELEXA) 20 mg Tablet Take 40 [...] as of this encounter H&P Notes * Jeremías Patterson MD - 01/29/2020 2:07 PM [...] file Gets together: Not on file Attends yarsanism service: Not on file Active member of [...] infection, wounds, hospitalizations, ED visits, use of antibiotics.Otherwise, as described above. PHYSICAL EXAM: BP 133/79 [...] steroid injection. Addressed all questions and concerns. Risksand benefits discussed with patient. No contraindications to the procedure at this time, will proceed. Jeremías Patterson MD Pain Management Fellow [facility] [address] [address] [email or web address] documented in this encounter Miscellaneous Notes * Op Note - Sarah Munguia MD - 01/29/2020 2:10 PM EST Pain Management Operative Note Patient Name: Bessie Levy : [id number] MR#: [id number] Case Date: 01/29/2020 Surgeon: Surgeon(s) and Role: [...] entry point for entering/approaching the L4-L5 epidural space for the lumbar epidural [...] procedure. Sarah Munguia MD [facility] Cook of Anesthesiology [facility] of Medicine [address] [address] / [email or web address] CC: No referring provider defined for this encounter. documented in this encounter Plan of Treatment Upcoming Encounters Date Type Department Care Team (Late st Contact Info) Description 12/24/2023 10:00 AM EDT Office [place] [phone] Tereso Mohan MD [facility] [place] [address] 12/24/2023 10:30 AM EDT Appointment XRay at [address] [place] [phone] Shelby Aaron FREIGHT TRUCKER [facility] [place] [place] [address] 12/24/2023 11:30 AM EDT Office Visit [facility] [place] [phone] Shelby Aaron FREIGHT TRUCKER [facility] [place] [address] Scheduled Orders Name Type Priority Associated Diagnoses Orde r Schedule INJECTION, EPIDURAL, LUMBAR OR SACRAL (CAUDAL), WITH IMAGING GUIDANCE Procedures Routine Radiculopathy of lumbar region One Time for 1 Occurrences starting 01/29/2020 until 01/29/2020 documented as of this encounter Visit Diagnoses Diagnosis Radiculopathy of lumbar region- Primary Thoracic or lumbosacral neuritis or radiculitis, unspecified Radiculopathy of lumbar region Thoracic or lumbosacral neuritis or radiculitis, unspecified documented in this encounter Admitting Diagnoses Diagnosis Radiculopathy of lumbar region Thoracic or lumbosacral neuritis or radiculitis, unspecified documented in this encounter Administered Medications Inactive Administered Medications - up to 3 most recent administrations Medication Order MAR Action Action Date Dose Rate Site iohexoL (Omnipaque) (240 mg/mL) injection solution ONCE PRN, Starting on Sat01/29/20 at 1429, Until Sat01/29/20 at 1639, Intra-Operative (Intra-Procedure), Routine Given 01/29/2020 2:29 PM EST 1 mL lidocaine (pf) (Xylocaine) (10 mg/mL) 1% injection ONCE PRN, Starting on Sat01/29/20 at 1429, Until Sat01/29/20 at 1639, Intra-Operative (Intra-Procedure), Routine Given 01/29/2020 2:29 PM EST 2 mLs methylPREDNISolone acetate (DEPO-Medrol) (80 mg/mL) injection ONCE PRN, Starting on Sat01/29/20 at 1429, Until Sat01/29/20 at 1639, Intra-Operative (Intra-Procedure), Routine Given 01/29/2020 2:29 PM EST 80 mg documented in this encounter Active and Recently Administered Medications Times are shown in EST. PRN Medication Order 01/27/2020 01/28/2020 01/29/2020 iohexoL (Omnipaque) (240 mg/mL) injection solution (CANCELED) ONCE PRN, Starting on Sat01/29/20 at 1429, Until Sat01/29/20 at 1639, Intra-Operative (Intra-Procedure), Routine 142 (Given - Provid er: Jeremías Patterson MD) lidocaine (pf) (Xylocaine) (10 mg/mL) 1% injection (CANCELED) ONCE PRN, Starting on Sat01/29/20 at 1429, Until Sat01/29/20 at 1639, Intra-Operative (Intra-Procedure), Routine 1428 (Given - Provid er: Jeremías Patterson MD - Comment: Epidural) methylPREDNISolone acetate (DEPO-Medrol) (80 mg/mL) injection (CANCELED) ONCE PRN, Starting on Sat01/29/20 at 1429, Until Sat01/29/20 at 1639, Intra-Operative (Intra-Procedure), Routine 1428 (Given - Provid er: Jeremías Patterson MD) documented in this encounter Care Teams Long Winder Tender Relationship Specialty Start Date End Date Comfort Urban, SELVIN [address] [place] [address] PCP - General Family Medicine 07/19/17 03/11/23 documented as of this encounter
--- OUTSIDE RECORDS SUMMARY | 2023-11-16 14:15 | XMS_ITS | Encounter Summary ---
Author Organization [place] [address] Care Team Providers Care Registered Travel Nurse Name Role Phone Comfort Urban APRN Primary Care Provider [phone] Reason for Visit * Reason Onset Date Comments Appointment 10/27/2019 Encounter Details Date Type Department Care Team (Late st Contact Info) Description 10/27/2019 [place] [address] Tereso Mohan MD [facility] [place] [address] Appointment Social History Tobacco Use Types Packs/Day [...] encounter Miscellaneous Notes * Telephone Encounter - Xavier Mcghee - 10/27/2019 10:51 AM EDT Call Center / [place] Message - General Issue Call Provider patient sees in Clinic: Dr. Mohan Caller and relationship (if other than patient-full name): self Call back number: [phone] Ok to leave a message: yes Reason for call: Patient is calling in regards to an MRI that needed to be coordinated with a follow up appointment. Please refer to 10/11 encounter. The patient has availabilities on 11/01 and 11/04 forappointments. Please call to discuss.. Disposition of Call (choose one and remove others): ??? Routine message sent to [place]: yes documented in this encounter Plan of Treatment Upcoming Encounters Date Type Department Care Team (Late st Contact Info) Description 12/24/2023 10:00 AM EDT [place] [address] Tereso Mohan MD [facility] [place] [address] 12/24/2023 10:30 AM EDT Appointment XRay at [address] [place] [address] Shelby Aaron INTERLOCKING AND SIGNAL MECHANIC [facility] [place] [address] 12/24/2023 11:30 AM EDT Office Visit [place] [phone] Shelby Aaron [facility] [place] [address] documented as of this encounter Visit Diagnoses Not on filedocumented in this encounter Care Teams Registered Travel Nurse Relationship Specialty Start Date End Date Comfort Urban APRN [address] [place] [address] PCP - General Family Medicine 07/19/17 03/11/23 documented as of this encounter
--- OUTSIDE RECORDS SUMMARY | 2023-11-16 14:15 | XMS_ITS | Encounter Summary ---
Author Organization [facility] [place] [address] Care Team Providers Care Naphtha Washing System Operator Name Role Phone Comfort Urban APRN Primary Care Provider [phone] Reason for Visit * Reason Onset Date Comments Medication Refill 07/22/2018 Encounter Details Date Type Department Care Team (Late st Contact Info) Description 07/22/2018 Telephone Neurology at [facility] [place] [address] Charito Mosley MBBS [facility] [place] [address] Medication Refill Social History Tobacco Use Types Packs/Day [...] encounter Miscellaneous Notes * Telephone Encounter - Palak Howard RN - 07/22/2018 11:42 AM EDT See 07/14/18 note * Telephone Encounter - Sheron Souza - 07/22/2018 11:36 AM EDT Clinical Refining Supervisor Message Caller: Patient If not Pt / Relation to pt: Call back Number:[phone] Best time to reach caller: Anytime Reason for call: Topamax Message/information for the nurse: Patient states she has not received her prescription yet and has been without her Topamax. Disposition of Call ?? Red [place] Message Reason red arrow Message:Patient out of medication documented in this encounter Plan of Treatment Upcoming Encounters Date Type Department Care Team (Late st Contact Info) Description 12/24/2023 10:00 AM EDT Office Visit Neurology at [place] [phone] Tereso Mohan MD [facility] [place] [address] 12/24/2023 10:30 AM EDT Appointment XRay at [address] [place] [phone] Shelby Aaron HEALTH SCREENER [facility] [place] [address] 12/24/2023 11:30 AM EDT Office Visit [facility] [place] [phone] Shelby Aaron HEALTH SCREENER [facility] [place] [address] documented as of this encounter Visit Diagnoses Not on filedocumented in this encounter Care Teams Naphtha Washing System Operator Relationship Specialty Start Date End Date Comfort Urban APRN [address] [place] [address] PCP - General Family Medicine 07/19/17 03/11/23 documented as of this encounter
--- OUTSIDE RECORDS SUMMARY | 2023-11-16 14:15 | XMS_ITS | Encounter Summary ---
[place] [address] Care Team Providers Care Charcoal Kiln Burner Name Role Phone Comfort Urban APRN Primary Care Provider [phone] Encounter Details Date Type Department Care Team (Latest Contact Info) Description 06/16/2018 12:44 PM EDT - 06/16/2018 11:59 PM EDT Hospital Encounter Non-[place] [address] Tereso Mohan MD [facility] [place] [address] Seizures Discharge Disposition: Home Social History Tobacco [...] 10:00 AM EDT Office Visit Neurology at [place] [phone] Tereso Mohan MD [facility] [place] [address] 12/24/2023 10:30 AM EDT Appointment XRay at [address] [place] [phone] Shelby Aaron APRN [facility] [place] [address] 12/24/2023 11:30 AM EDT Office Visit [place] [phone] Shelby Aaron APRN [facility] [place] [address] Pending Results Name Type Priority Associated Diagnoses Date /Time Holter Monitor 24hr Cardiac Services Routine Seizures 06/16/2018 1:22 PM EDT Scheduled Orders Name Type Priority Associated Diagnoses Orde r Schedule Holter Monitor 24hr Cardiac Services Routine Seizures 1 Occurrences starting 06/16/2018 until 06/16/2018 documented as of this encounter Visit Diagnoses Diagnosis Seizures Other convulsions documented in this encounter Care Teams Charcoal Kiln Burner Relationship Specialty Start Date End Date Comfort Urban, SUPERVISOR INSPECTION AND TESTING [address] [place] [address] PCP - General Family Medicine 07/19/17 03/11/23 documented as of this encounter
--- OUTSIDE RECORDS SUMMARY | 2023-11-16 14:15 | XMS_ITS | Encounter Summary ---
[place] [address] Care Team Providers Care Pipe Line Gauger Name Role Phone Comfort Urban APRN Primary Care Provider [phone] Reason for Referral * Consultation (Routine) - Closed Specialty Diagnoses / Procedures Referred By Contac t Referred To Contact Pain and Spine Center Diagnoses Sciatica of right side right L5 radiculopathy/ ?LESI/ MRI 11/29 in eDH Tereso Mohan MD [facility] [place] [address] [facility] [place] [address] Referral ID Status Reason Start Date Expiration Date Visits Requested Visits Authorized [id number] Closed Pain Interventional Procedure 11/30/2019 11/29/2020 1 1 Reason for Visit * Reason Comments Follow-up Encounter Details Date Type Department Care Team (Late st Contact Info) Description 11/30/2019 8:30 AM EDT Office [place] [phone] Tereso Mohan MD [facility] [place] [address] Sciatica of right side; Seizures Social History [...] * Patient Instructions* Tereso Mohan MD - 11/30/2019 8:30 AM [...] necessary. Tereso Mohan MD Professor of neurology, [employer] at [facility] Department of Neurology, [address] Pager: [phone], #[phone] Email: [email or web address] documented in this encounter Progress Notes * Tereso Mohan MD - 11/30/2019 8:30 AM [...] 2. EEG: ?- Routine EEG:Done at [facility] 05/05/18: Normal study. ?? [...] was taken to the emergency room at [facility] where she was held overnight. I [...] able to continue working full-time at the [employer]. 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 ?? Family history: There is no family [...] response was flexor bilaterally. ?? Cerebellar: Normal [id number] with mild action tremor. ?? Gait: gait was normal. Laboratory studies: 1. Brain imaging: ?- MRI brain was done in 2016 was unremarkable per patient. -MRI brain: 05/10/2018- No acute intracranial abnormality ? -CT scan head- None -MRI lumbar spine 2019 degenerative changes most prominent at L4-5 with foraminal stenosis bilaterally worse on the right ?? 2. EEG: ?- Routine EEG:Done at [facility] 05/05/18: Normal study. Blood [...] necessary. Tereso Mohan MD [place] [address] Pager #[phone] Email: [email or web address] CC: Comfort Urban APRN documented in this encounter Plan of Treatment Upcoming Encounters Date Type Department Care Team (Late st Contact Info) Description 12/24/2023 10:00 AM EDT Office Visit Neurology at [place] [phone] Tereso Mohan MD [facility] [place] [address] 12/24/2023 10:30 AM EDT Appointment XRay at [address] [place] [phone] Shelby Aaron APRN [facility] [place] [address] 12/24/2023 11:30 AM EDT Office Visit [facility] at [place] [phone] Shelby Aaron APRN [facility] [place] [address] Scheduled Referrals Name Type Priority Associated Diagnoses Order Schedule Referral to Pain Management Outpatient Referral Routine Sciatica of right side Ordered: 11/30/2019 documented as of this encounter Visit Diagnoses Diagnosis Sciatica of right side Sciatica Seizures Other convulsions documented in this encounter Care Teams Pipe Line Gauger Relationship Specialty Start Date End Date RajniComfort, AUTOMATIC SPREADER OPERATOR [address] [place] [address] PCP - General Family Medicine 07/19/17 03/11/23 documented as of this encounter
--- OUTSIDE RECORDS SUMMARY | 2023-11-16 14:15 | XMS_ITS | Encounter Summary ---
Author Organization [facility] [place] [address] Care Team Providers Care Licensed Staff Mft Name Role Phone Comfort Urban APRN Primary Care Provider [phone] Reason for Visit * Reason Comments Medication Refill Encounter Details Date Type Department Care Team (Late st Contact Info) Description 03/28/2021 Ref[place] [address] Treeso Mohan MD [facility] [place] [address] Social History Tobacco Use Types Packs/Day Years [...] 10:00 AM EDT Office [place] [address] Tereso Mohan MD [facility] [place] [place] [address] 12/24/2023 10:30 AM EDT Appointment XRay at [address] [place] [phone] Shelby Aaron APRN [facility] [place] [address] 12/24/2023 11:30 AM EDT Office Visit [facility] [place] [phone] Shelby Aaron APRN [facility] [place] [address] documented as of this encounter Visit Diagnoses Not on filedocumented in this encounter Care Teams Licensed Staff Mft Relationship Specialty Start Date End Date Comfort Urban APRN [address] [place] [address] PCP - General Family Medicine 07/19/17 03/11/23 documented as of this encounter
--- OUTSIDE RECORDS SUMMARY | 2023-11-16 14:15 | XMS_ITS | Encounter Summary ---
Author Organization [facility] [place] [address] Care Team Providers Care Production Posting Clerk Name Role Phone Comfort Urban APRN Primary Care Provider [phone] Reason for Visit * Reason Comments Medication Refill Encounter Details Date Type Department Care Team (Late st Contact Info) Description 12/28/2020 [place] [phone] Tereso Mohan MD [facility] [place] [address] Social History Tobacco Use Types Packs/Day Years [...] AM EDT Office [place] [phone] Tereso Mohan MD [facility] [place] [address] 12/24/2023 10:30 AM EDT Appointment XRay at [address] [place] [address] Shelby Aaron, PRIMER WATERPROOFING MACHINE OPERATOR [facility] [place] [address] 12/24/2023 11:30 AM EDT Office Visit [facility] [place] [address] Shelby Aaron PRIMER WATERPROOFING MACHINE OPERATOR [facility] [place] [place] [address] documented as of this encounter Visit Diagnoses Not on filedocumented in this encounter Care Teams Production Posting Clerk Relationship Specialty Start Date End Date Comfort Urban APRN [address] [place] [address] PCP - General Family Medicine 07/19/17 03/11/23 documented as of this encounter
--- OUTSIDE RECORDS SUMMARY | 2023-11-16 14:15 | XMS_ITS | Encounter Summary ---
Author Organization [facility] [place] [address] Care Team Providers Care Sewing Supervisor Name Role Phone Comfort Urban APRN Primary Care Provider [phone] Reason for Visit * Reason Comments Follow-up Encounter Details Date Type Department Care Team (Late st Contact Info) Description 09/16/2019 8:00 AM EDT Office [place] [address] Tereso Mohan MD [facility] [place] [place] [address] Seizures Social History Tobacco Use Types Packs/Day [...] * Patient Instructions* Tereso Mohan MD - 09/16/2019 8:00 AM [...] It does not seem too bad, and Pritesh inclined to leave things alone. I think you should also continue the Celexa and the Abilify. Those may also be contributing to someof the side effects you are having. I think you have a pinched nerve probably due to a slipped disc in her low back. There also does not seem to And I would leave it alone for now. If there is any worsening of back and leg symptoms we should kelly MRI scan. Please let me know Please call with any problems I would like to see you back in 6 months or sooner if necessary. Tereso Mohan MD Professor of neurology, [facility] at [facility] Department of Neurology, [address] Pager: [phone], #[phone] Email: [email or web address] documented in this encounter Progress Notes * Tereso Mohan MD - 09/16/2019 8:00 AM [...] ?? 2. EEG: ?- Routine EEG:Done at [facility] [place]: Normal study. ?? 3. Epilepsy Monitoring [...] that led to her being taken to [facility] emergency room. She had bitten [...] of Depakote. ? Interval History: As of 2020 the patient is doing reasonably well. She [...] able to continue working full-time at the [employer]. 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 ?? Family history: There is no family [...] response was flexor bilaterally. ?? Cerebellar: Normal [id number] with mild action tremor. ?? Gait: gait was normal. Laboratory studies: 1. Brain imaging: ?- MRI brain was done in 2016 was unremarkable per patient. -MRI brain: 05/10/2018- No acute intracranial abnormality ? -CT scan head- None ?? 2. EEG: ?- Routine EEG:Done at [facility] [place]: Normal study. Blood Tests: Blood tests [...] Topamax and Topamax has helped her to lose weight. I am inclined to make no change. 2. Psychiatrically she looks like she is doing well. 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 3. She is complaining of intermittent sciatic pain and paresthesias on the right. Her exam is benign and symptoms are better. I am inclined to do nothing further at the moment, but if symptoms recur or worsen I would recommend further work-up including MRI of the lumbar spine. Thank you for this consultation. I will see the patient back in the epilepsy clinic in 6 months or sooner if necessary. Tereso Mohan MD Department [place] [address] Pager #[phone] Email: [email or web address] CC: Comfort Urban APRN documented in this encounter Plan of Treatment Upcoming Encounters Date Type Department Care Team (Late st Contact Info) Description 12/24/2023 10:00 AM EDT Office Visit Neurology at [place] [phone] Tereso Mohan MD [facility] [place] [address] 12/24/2023 10:30 AM EDT Appointment XRay at [address] [place] [phone] Shelby Aaron APRN [facility] [place] [address] 12/24/2023 11:30 AM EDT Office Visit [facility] [place] [phone] Shelby Aaron APRN [facility] [place] [address] documented as of this encounter Visit Diagnoses Diagnosis Seizures Other convulsions documented in this encounter Care Teams Sewing Supervisor Relationship Specialty Start Date End Date Comfort Urban APRN [address] [place] [address] PCP - General Family Medicine 07/19/17 03/11/23 documented as of this encounter
--- OUTSIDE RECORDS SUMMARY | 2023-11-16 14:15 | XMS_ITS | Encounter Summary ---
[place] [address] Care Team Providers Care Welding Lead Burner Name Role Phone Comfort Urban EXTENSION FORESTER Primary Care Provider [phone] Reason for Referral * Physical Therapy (Routine) - Specialty Diagnoses / Procedures Referred By Contjose t Referred To Contact Diagnoses Radiculopathy of lumbar region Chronic pain syndrome Sarah Munguia MD [facility] [place] [address] Referral ID Status Reason Start Date Expiration Date V isits Requested Visits Authorized [id number] Evaluate and Treat 01/04/2020 07/02/2020 12 12 Reason for Visit * Reason Comments Pain Management new patient Back Pain * Consultation (Routine) - Closed Specialty Diagnoses / Procedures Referred By Contjose t Referred To Contact Pain and Spine Center Diagnoses Sciatica of right side right L5 radiculopathy/ ?LESI/ MRI 11/29 in Tereso Garnica MD [facility] [place] [address] [facility] [place] [address] Referral ID Status Reason Start Date Expiration Date Visits Requested Visits Authorized [id number] Closed Pain Interventional Procedure 11/30/2019 11/29/2020 1 1 Encounter Details Date Type Department Care Team (Latest Contact Info) Description 01/04/2020 1:20 PM EST Office Visit [facility] [place] [address] Sarah Munguia MD [facility] [place] [address] Radiculopathy of lumbar region; Chronic pain syndrome [...] 37.1 ??C (98.7 ??F) 01/04/2020 1:19 PM ES T Respiratory Rate - - Oxygen Saturation 99% 01/04/2020 1:19 PM EST Inhaled Oxygen Concentration - - Weight 74.8 kg (165 lb) 01/04/2020 1:19 PM EST Height - - Body Mass Index 31.18 11/30/2019 8:24 AM EDT documented in this encounter Progress Notes * Sarah Munguia MD - 01/04/2020 1:20 PM EST [facility] Initial Consultation Note Date of visit: 01/04/20 : 1985 Consulting Physician: Tereso Mohan MD [facility] [place] [address] Reason for consultation: Low back pain-interventional evaluation [...] lateral thigh, rightlateral calf to right ankle. 75% of pain [...] gabapentin-seizures PT: yes Psychology: no Acupuncture: no lead care manager: no TENS Unit: no Injections: no Surgery: [...] bilateral facet arthropathy. Review of [place] Prescription Monitoring Program (GRAPPLE SKIDDER OPERATOR): Today I have also reviewed the patient's history of controlled substance use. Review of Pain Questionnaire: Please see the [facility] Pain Management [place] health questionnaire, which the patient completed and reviewed with me in detail. Review of Electronic Chart: Today I have also reviewed available medical information in the patient's medical record at [facility] [place] [place] including relevant provider notes, laboratory work, and [...] file Gets together: Not on file Attends spiritism service: Not on file Active member of [...] equivocal Mild right lumbar paraspinal tenderness Neurologic: airborne sensor specialist - grossly intact Reflexes - 2+ [...] will be scheduled for L4-L5 right paramedian interlaminar epidural steroid injection under fluoroscopy guidance 7. Referrals: Continue follow-up with neurology 8. Release of information: Previous records reviewed 9. Follow up: 4 weeks after the injection Sarah Munguia MD [facility] St[facility] of Anesthesiology [facility] [address] [phone] / [facility] CC: Tereso Mohan MD [facility] [place] [address] documented in this encounter Plan of Treatment Upcoming Encounters Date Type Department Care Team (Late st Contact Info) Description 12/24/2023 10:00 AM EDT Office [place] [address] Tereso Mohan MD [facility] [place] [address] 12/24/2023 10:30 AM EDT Appointment XRay at [address] [place] [address] Shelby Aaron APRN [facility] [place] [address] 12/24/2023 11:30 AM EDT Office Visit [facility] [place] [phone] Shelby Aaron APRN [facility] [place] [address] Scheduled Referrals Name Type Priority Associated Diagnoses Orde r Schedule Referral to Physical Therapy Outpatient Referral Routine Radiculopathy of lumbar region Chronic pain syndrome Ordered: 01/04/2020 documented as of this encounter Visit Diagnoses Diagnosis Radiculopathy of lumbar region Thoracic or lumbosacral neuritis or radiculitis, unspecified Chronic pain syndrome documented in this encounter Care Teams Welding Lead Burner Relationship Specialty Start Date End Date Comfort Urban APRN [address] [place] [address] PCP - General Family Medicine 07/19/17 03/11/23 documented as of this encounter
--- OUTSIDE RECORDS SUMMARY | 2023-11-16 14:15 | XMS_ITS | Encounter Summary ---
Author Organization [facility] [place] [address] Care Team Providers Care Emergency Medical Technician Name Role Phone Comfort Urban APRN Primary Care Provider [phone] Reason for Visit * Reason Comments Medication Refill Encounter Details Date Type Department Care Team (Late st Contact Info) Description 07/10/2020 [place] [phone] Tereso Mohan MD [facility] [place] [address] Social History Tobacco Use Types Packs/Day Years [...] 10:00 AM EDT [place] [phone] Tereso Mohan MD [facility] [place] [address] 12/24/2023 10:30 AM EDT Appointment XRay at [address] [place] [address] Shelby Aaron, ASSEMBLY INSTRUCTIONS WRITER [facility] [place] [address] 12/24/2023 11:30 AM EDT Office Visit [place] [address] Shelby Aaron ASSEMBLY INSTRUCTIONS WRITER [facility] [place] [address] documented as of this encounter Visit Diagnoses Not on filedocumented in this encounter Care Teams Emergency Medical Technician Relationship Specialty Start Date End Date Comfort Urban APRN [address] [place] [address] PCP - General Family Medicine 07/19/17 03/11/23 documented as of this encounter
--- OUTSIDE RECORDS SUMMARY | 2023-11-16 14:15 | XMS_ITS | Encounter Summary ---
[place] [address] Care Team Providers Care Site Supervising Technical Operator Name Role Phone Comfort Urban SMALL BUSINESS CONSULTANT Primary Care Provider [phone] Reason for Referral * Diagnostic Test (Routine) - Closed Specialty Diagnoses / Procedures Referred By Contac t Referred To Contact Radiology Diagnoses Sciatica of right side Procedures MRI Lumbar Spine wo Contrast (Generic) Tereso Mohan MD [facility] [place] [place] [address] [place] [address] Referral ID Status Reason Start Date Expiration Date V isits Requested Visits Authorized [id number] Closed Specialty Service Requested 11/26/2019 05/24/2020 1 1 Reason for Visit * Diagnostic Test (Routine) - Closed Specialty Diagnoses / Procedures Referred By Contac t Referred To Contact Radiology Diagnoses Sciatica of right side Procedures MRI Lumbar Spine wo Contrast (Generic) Tereso Mohan MD [facility] [place] [place] [address] [place] [address] Referral ID Status Reason Start Date Expiration Date V isits Requested Visits Authorized [id number] Closed Specialty Service Requested 11/26/2019 05/24/2020 1 1 Encounter Details Date Type Department Care Team (Latest Contact Info) Description 11/30/2019 6:51 AM EDT - 11/30/2019 11:59 PM EDT Hospital Encounter MRI [place] [facility] [place] [address] Tereso Mohan MD [facility] [place] [address] Sciatica of right side Discharge Disposition: Home Social History Tobacco Use [...] mouth as needed. Med Name: CBD oil divalproex EC (Depakote) 250 mg Tablet, Delayed Release (E.C.) Take 1 tablet by mouth 2 times daily. 60 tablet 2 09/08/2019 12/09/2019 topiramate (Topamax) 200 mg Tablet Take 1 [...] 10:00 AM EDT Office [place] [address] Tereso Mohan MD [facility] [place] [address] 12/24/2023 10:30 AM EDT Appointment XRay at [address] [place] [phone] Shelby Aaron, SMALL BUSINESS CONSULTANT [facility] [place] [address] 12/24/2023 11:30 AM EDT Office Visit [facility] [place] [address] Shelby Aaron, SELVIN [facility] [place] [address] documented as of this encounter Procedures Procedure Name Priority Date/Time Associated Diagnosis Comments MRI LUMBAR SPINE WITHOUT CONTRAST Routine 11/30/2019 7:44 AM EDT Sciatica of right side documented in this encounter Results * MRI Lumbar Spine wo Contrast (Generic) (11/30/2019 7:44 AM EDT) Anatomical Region Laterality Modality L-spine Magnetic Resonan ce Impressions 11/30/2019 9:08 AM EDT Lumbar spine degenerative changes most pronounced at L4-5 where there is disc bulging and bilateral facet arthropathy. Comment: The following findings are so common in people without low back pain that while we report their presence, they must be interpreted with caution and in context of the clinical situation (Reference- Prosperk Et Al, Spine 2001). Findings: (Prevalence in patients without low back pain), disc degeneration (decreased T2 signal, height loss, bulge) (91%), disc T2-signal loss (83%), disc height loss (56%), disc bulge (64%), disc protrusion (32%), annular fissure (38%). Thank you for letting us participate in the care of this patient. For questions regarding this report, please contact the number below. ? Narrative 11/30/2019 9:08 AM EDT EXAMINATION: MRI LUMBAR SPINE WO CONTRAST (GENERIC) CLINICAL HISTORY: Back pain or radiculopathy, < 6 wks, uncomplicated TECHNIQUE: MRI of the lumbar spine performed without intravenous contrast administration. COMPARISON: None FINDINGS: There is slight anterolisthesis of L4 on L5. Alignment is otherwise unremarkable. There is no focal, aggressive appearing marrow lesion. The conus is normal in appearance, terminates at L1-L2. Visualized retroperitoneal structures are unremarkable. Findings at specific levels: L1-L2: No canal or foraminal stenosis. L2-L3: No canal or foraminal stenosis. L3-L4: There is no canal or foraminal stenosis. Mild facet degenerative change is present. L4-L5: There is marked bilateral facet arthropathy with narrowing of the right subarticular recess to severe arthropathy and disc bulge. Disc bilateral foraminal narrowing. Mild overall canal narrowing due to combination of disc bulge, facet arthropathy, and prominent epidural fat. L5-S1: There is bilateral facet arthropathy without foraminal stenosis. Moderate canal narrowing is due to prominent epidural fat. Procedure Note Janak Tierney MD - 11/30/2019 EXAMINATION: MRI LUMBAR SPINE WO CONTRAST (GENERIC) CLINICAL HISTORY: Back pain or radiculopathy, < 6 wks, uncomplicated TECHNIQUE: MRI of the lumbar spine performed without intravenous contrastadministration. COMPARISON: None FINDINGS: There is slight anterolisthesis of L4 on L5. Alignment is otherwise unremarkable. There is no focal, aggressive appearing marrow lesion. Theconus is normal in appearance, terminates at L1-L2. Visualized retroperitoneal structures are unremarkable. Findings at specific levels: L1-L2: No canal or foraminal stenosis. L2-L3: No canal or foraminal stenosis. L3-L4: There is no canal or foraminal stenosis. Mild facet degenerativechange is present. L4-L5: There is marked bilateral facet arthropathy with narrowing of theright subarticular recess to severe arthropathy and disc bulge. Disc bilateral foraminal narrowing. Mild overall canal narrowing due to combination ofdisc bulge, facet arthropathy, and prominent epidural fat. L5-S1: There is bilateral facet arthropathy without foraminal stenosis.Moderate canal narrowing is due to prominent epidural fat. IMPRESSION Lumbar spine degenerative changes most pronounced at L4-5 where there isdisc bulging and bilateral facet arthropathy. Comment: The following findings are so common in people without low backpain that while we report their presence, they must be interpreted with cautionand in context of the clinical situation (Reference- Keylavik Et Al, Ajara2145). Findings: (Prevalence in patients without low back pain), discdegeneration (decreased T2 signal, height loss, bulge) (91%), disc T2-signal loss(83%), disc height loss (56%), disc bulge (64%), disc protrusion (32%), annularfissure (38%). Thank you for letting us participate in the care of this patient. Forquestions regarding this report, please contact the number below. Tereso Mohan MD IMG MRI ORDERABLES documented in this encounter Visit Diagnoses Diagnosis Sciatica of right side Sciatica documented in this encounter Care Teams Site Supervising Technical Operator Relationship Specialty Start Date End Date Comfort Urban, SMALL BUSINESS CONSULTANT [address] [place] [address] PCP - General Family Medicine 07/19/17 03/11/23 documented as of this encounter
--- OUTSIDE RECORDS SUMMARY | 2023-11-16 14:15 | XMS_ITS | Encounter Summary ---
Author Organization [facility] [place] [address] Care Team Providers Care Promotions Executive Name Role Phone Comfort Urban APRN Primary Care Provider [phone] Reason for Visit * Reason Onset Date Comments Medication Refill 05/13/2019 Encounter Details Date Type Department Care Team (Late st Contact Info) Description 05/13/2019 Ref[place] [address] Tereso Mohan MD [facility] [place] [address] Social History Tobacco Use Types Packs/Day Years [...] 10:00 AM EDT Office [place] [phone] Tereso Mohan MD [facility] [place] [address] 12/24/2023 10:30 AM EDT Appointment XRay at [address] [place] [address] Shelby Aaron APRN [facility] [place] [address] 12/24/2023 11:30 AM EDT Office Visit [facility] Sp[facility] at [facility] [place] [address] Shelby Aaron APRN [facility] [place] [address] documented as of this encounter Visit Diagnoses Not on filedocumented in this encounter Care Teams Promotions Executive Relationship Specialty Start Date End Date Comfort Urban APRN [address] [place] [address] PCP - General Family Medicine 07/19/17 03/11/23 documented as of this encounter
--- OUTSIDE RECORDS SUMMARY | 2023-11-16 14:15 | XMS_ITS | Encounter Summary ---
Author Organization [facility] [place] [address] Care Team Providers Care Bridge Painter Helper Name Role Phone Comfort Urban APRN Primary Care Provider Encounter Details Date Type Department Care Team (Late st Contact Info) Description 06/23/2018 [place] [phone] Tereso Mohan MD [facility] [place] [address] Seizures Social History Tobacco Use Types Packs/Day [...] 10:00 AM EDT [place] [phone] Tereso Mohan MD [facility] [place] [address] 12/24/2023 10:30 AM EDT Appointment XRay at [address] [place] [address] Shelby Aaron LAB SCIENTIST [facility] [place] [place] [address] 12/24/2023 11:30 AM EDT Office Visit [facility] Sp[facility] at [facility] [place] [place] [address] Shelby Aaron LAB SCIENTIST [facility] [place] [address] documented as of this encounter Results * Holter Monitor 24hr [...] AV block was observed. Rory Salazar MD [facility] Cardiac Electrophysiology 07/23/2018 4:25 PM Tereso Moahn MD CARDIAC SERVICES ORD ERABLES documented in this encounter Visit Diagnoses Diagnosis Seizures Other convulsions Seizures Other convulsions documented in this encounter Care Teams Bridge Painter Helper Relationship Specialty Start Date End Date Comfort Urban, LAB SCIENTIST [address] [place] [address] PCP - General Family Medicine 07/19/17 03/11/23 documented as of this encounter
--- OUTSIDE RECORDS SUMMARY | 2023-11-16 14:15 | XMS_ITS | Encounter Summary ---
Author Organization [facility] [place] [address] Care Team Providers Care Passport Support Manager Name Role Phone Comfort Urban APRN Primary Care Provider [phone] Reason for Visit * Reason Onset Date Comments Medication Refill 07/14/2018 Encounter Details Date Type Department Care Team (Late st Contact Info) Description 07/14/2018 [facility] [place] [address] Charito Mosley MBBS [facility] [place] [address] Social History Tobacco Use Types Packs/Day Years [...] Souza ?? 07/22/18 11:36 AM Note Clinical Acoustical Installer Message ? Caller: Patient If not Pt / Relation to pt: Call back Number:[phone] Best time to reach caller: Anytime ? Reason for call: Topamax ?? Message/information for the nurse: Patient states she has not received her prescription yet and has been without her Topamax. ?? Disposition of Call ? Red Arrow Message Reason red arrow Message:Patient out of medication * Telephone Encounter - Palak Howard RN [...] day there after Pt agreeable to plan * Telephone Encounter - Chetna Reis - 07/14/2018 3:14 PM EDT Clinical Acoustical Installer message Caller: Bessie If not Pt / Relation to pt: self Call back number: [phone] Best time to reach caller if there are questions with medication refill request: anytime Name of Med: Topamax Strength of Pills: 50 mg Dosing Directions: 2x daily 30 or 90 Day: 30 Pharmacy: [facility] in [place], [place] Last Appointment: 06/11/18 Next Appointment: Not yet scheduled Is Patient out of Medication?: Yes Pt was advised to increase to 50mg two times daily, but the pharmacy requires the new prescription.She states that in a couple weeks she'll be increasing again to 100mg two times daily. She is currently out of the medication. documented in this encounter Plan of Treatment Upcoming Encounters Date Type Department Care Team (Late st Contact Info) Description 12/24/2023 10:00 AM EDT Office [place] [address] Tereso Mohan MD [facility] [address] 12/24/2023 10:30 AM EDT Appointment XRay at [address] [place] [address] Shelby Aaron DESIZING PAD OPERATOR [facility] [place] [address] 12/24/2023 11:30 AM EDT Office Visit [facility] [place] [address] Shelby Aaron DESIZING PAD OPERATOR [facility] [place] [address] documented as of this encounter Visit Diagnoses Not on filedocumented in this encounter Care Teams Passport Support Manager Relationship Specialty Start Date End Date Comfort Urban APRN [address] [place] [address] PCP - General Family Medicine 07/19/17 03/11/23 documented as of this encounter
--- OUTSIDE RECORDS SUMMARY | 2023-11-16 14:15 | XMS_ITS | Encounter Summary ---
Author Organization [facility] [place] [address] Care Team Providers Care Business Development Intern Name Role Phone Comfort Urban APRN Primary Care Provider [phone] Encounter Details Date Type Department Care Team (Late st Contact Info) Description 11/15/2020 10:00 AM EDT Office [place] [address] Tereso Mohan MD [facility] [place] [address] Seizures Social History Tobacco Use Types Packs/Day [...] kg (165 lb) 11/15/2020 9:45 AM EDT w ith shoes on Height 154.9 cm (5' 1) 11/15/2020 9:45 AM EDT r eported Body Mass Index 31.18 11/15/2020 9:45 AM EDT documented in this encounter Patient Instructions * Patient Instructions* Tereso Mohan MD - 11/15/2020 10:00 AM [...] repeated onceor twice a year as needed. It works best if there is pain in the back and also in the leg. The painis in the middle of the back, when applying [place] balm and taking 1 meloxicam daily is probably thebest strategy I have sent in a prescription for the meloxicam. We could also send you back to physical therapy, and if necessary repeat injection Please call with any problems I would like to see you back in 12 months or sooner if necessary. Tereso Mohan MD Professor of neurology, Formerly [facility] [employer] at [facility] Department of Neurology, [address] Pager: [phone], #[phone] Email: [email or web address] documented in this encounter Progress Notes * Tereso Mohan MD - 11/15/2020 10:00 AM [...] 2. EEG: ?- [place]ine [place] [facility] [place] Normal study. ?? 3. Epilepsy [...] that led to her being taken to [facility] emergency room. She had bitten side [...] able to continue working full-time at the [employer]. Interval History: As of 2020 she is doing quite well She had one breakthrough convulsive seizure associated with missed doses of medication. She has had no other major medical problems. 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 Currently working at the [employer]. ?? Family history: There is no family [...] response was flexor bilaterally. ?? Cerebellar: Normal [id number] with mild action tremor. ?? Gait: gait was normal. 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 EEG: Routine EEG:[place] [facility] [place] Normal study. Blood Tests: Blood [...] pain for which I think application of [place] yoni, and taking meloxicam is probably the best option. If symptoms worsen or if there is a significant radicular component, we could repeat the lumbar epidural steroid injection Thank you for this consultation. I will see the patient back in the epilepsy clinic in 12 months or sooner if necessary. Tereso Mohan [place] [address] Pager #[phone] Email: [email or web address] CC: Comfort Urban APRN documented in this encounter Miscellaneous Notes * Addendum Note - Brea Almaguer - 11/15/2020 10:00 AM EDTAddended by: BREA ALMAGUER on: 11/15/2020 10:47 AM Modules accepted: Orders documented in this encounter Plan of Treatment Upcoming Encounters Date Type Department Care Team (Late st Contact Info) Description 12/24/2023 10:00 AM EDT Office Visit Neurology at [place] [phone] Tereso Mohan MD [facility] [place] [address] 12/24/2023 10:30 AM EDT Appointment XRay at [address] [place] [phone] Shelby Aaron APRN [facility] [place] [address] 12/24/2023 11:30 AM EDT Office Visit [facility] [place] [phone] Shelby Aaron APRN [facility] [place] [address] documented as of this encounter Procedures Procedure Name Priority Date/Time Associated Diagnosis Comments HEMOGRAM Routine 11/15/2020 11:18 AM EDT Seizures DIFFERENTIAL, AUTOMATED Routine 11/15/2020 11:18 AM EDT Seizures HC VENIPUNCTURE Routine 11/15/2020 11:18 AM EDT Seizures HC CBC,PLT & AUTO DIFF Routine 11/15/2020 11:18 AM EDT Seizures HC AMMONIA, PLASMA Routine 11/15/2020 11 :18 AM EDT Seizures HC VALPROIC ACID Routine 11/15/2020 11:1 8 AM EDT Seizures HEPATIC FUNCTION PANEL Routine 11/15/2020 11:18 AM EDT Seizures BASIC METABOLIC PANEL Routine 11/15/2020 11:18 AM EDT Seizures documented in this encounter Results * Differential, Automated (11/15/2020 11:18 AM EDT) Neutrophil % 64.7 % [facility] Neutrophil Absolute 5.46 1.70 - 6.10 x10(3)/[facility] Lymph % 21.5 % [facility] Lymphocytes Abs 1.8 0.9 - 3.2 x10(3)/[facility] Monocyte % 9.8 % [facility] Monocyte Abs 0.8 0.3 - 0.9 x10(3)/[facility] Eos % 3.2 % [facility] Eosinophils Abs 0.3 0.0 - 0.4 x10(3)/[facility] Basophil % 0.6 % [facility] Baso Absolute 0.0 0.0 - 0.1 x10(3)/[facility] Immature Gran % 0.20 % [facility] Comment: Immature granulocytes(IG's)percentage and absolute count will include metamyelocytes, myelocytes, and promyelocytes. Blood smears from CBCs yielding IG's will be scanned manually for concordance. If this scan disagrees with the automated IG or if promyelocytes are noted, a manual differential will be performed. Immature Gran Absolute 0.02 0.00 - 0.04 x10(3)/[facility] Blood 11/15/2020 11:1 8 AM EDT 11/15/2020 11:24 AM EDT Narrative Resulting Agency Comment Spec In Lab Tereso Mohan MD HEMATOLOGY ORDERABLE S [facility] [place] [address] * (ABNORMAL) Hemogram (11/15/2020 11:18 AM EDT) White Blood Cell 8.4 4.0 - 9.5 x10(3)/mc L [facility] Red Blood Cell 4.73 4.00 - 5.21 x10(6)/mc L [facility] Hemoglobin 14.1 11.7 - 15.5 gm/dL [facility] Hematocrit 40.5 35.7 - 45.8 % [facility] Mean Cell Volume 85.6 82.6 - 94.4 fL [facility] Mean Cell Hemoglobin 29.8 27.1 - 32.0 pg [facility] Mean Cell Hemoglobin Concentration 34.8 31.7 - 35.0 gm/dL [facility] Platelet 292 145 - 357 x10(3)/mc L [facility] RDW Standard Deviation 36.5(L) 37.0 - 46.0 fL [facility] RDW coefficient of variation 11.7 11.5 - 14.1 % [facility] Mean Platelet Volume 9.4 7.6 - 12.9 fL [facility] NRBC% auto 0.0 % [facility] NRBC Absolute 0.000 0.000 - 0.000 x10(3)/mc L [facility] Blood 11/15/2020 11:1 8 AM EDT 11/15/2020 11:24 AM EDT Narrative Resulting Agency Comment Spec In Lab Tereso Mohan MD HEMATOLOGY ORDERABLE S Performing Organization Address City/[facility] Co de Phone Number [facility] [place] [address] * Topiramate level (11/15/2020 11:18 AM EDT) Topiramate Lvl (JULY) 15.1 mcg/mL [facility] Comment: REFERENCE VALUE Reference values depend on clinical use: Anticonvulsant: 5.0-20.0 mcg/mL Psychiatric: 2.0-8.0 mcg/mL ADDITIONAL INFORMATION This test was developed and its performance characteristics determined by [facility] in a manner consistent with CLIA requirements. This test has not been cleared or approved by the U.S. Food and Drug Administration. Test Performed by: [facility] - [address] [address] [employer] Counter Clerk: Tito King M.D. Ph.D.; CLIA# [id number] Blood 11/15/2020 11:1 8 AM EDT 11/15/2020 2:22 PM EDT Narrative Resulting Agency Comment Spec In Lab Tereso Mohan MD LAB SEND OUT ORDERAB LES Performing Organization Address City/[facility]/ZIP Co de Phone Number [facility] [place] [address] * Ammonia (11/15/2020 11:18 AM EDT) Ammonia 36 11 - 51 mcmol/L [facility] Blood 11/15/2020 11:1 8 AM EDT 11/15/2020 11:23 AM EDT Narrative Resulting Agency Comment Spec In Lab Tereso Mohan MD CHEMISTRY ORDERABLES [facility] [place] [address] * (ABNORMAL) Basic Metabolic Panel (non-fasting) (11/15/2020 11:18 AM EDT) Glucose 127 65 - 199 mg/dL [facility] Comment:Diabetes: >=200 mg/d L plus symptoms Blood Urea Nitrogen 8 8 - 18 mg/dL [facility] Creatinine 0.79 0.70 - 1.20 mg/dL [facility] Sodium 137 135 - 145 mmol/L [facility] Potassium 3.5 3.5 - 5.0 mmol/L [facility] Comment: Please note: ??Patients with WBC >100,000 may have falsely elevated Potassium levels. ??For accurate Potassium quantification in these patients send serum separator tube (gold top) for subsequent determinations. ??Contact the Clinical Chemistry Laboratory if there are any questions. Chloride 108(H) 98 - 107 mmol/L [facility] Carbon Dioxide 18(L) 22 - 31 mmol/L [facility] Anion Gap 11 5 - 15 mmol/L [facility] Calcium 9.3 8.5 - 10.5 mg/dL [facility] Est Glomerular Filtration Rate 96 >=60 mL/min/1. 73 m?? [facility] Comment: This patient? s estimated glomerular filtration rate (eGFR) is between 96 mL/min/1.73 m2 (patients with less muscle mass) and 111 mL/min/1.73 m2 (patients with [...] and symptoms in addition to eGFR. Blood 11/15/2020 11:1 8 AM EDT 11/15/2020 11:24 AM EDT Narrative Resulting Agency Comment Spec In Lab Tereso Mohan MD CHEMISTRY ORDERABLES [facility] [place] [address] * (ABNORMAL) Hepatic Function Panel (11/15/2020 11:18 AM EDT) Protein, Total 7.3 6.1 - 8.0 gm/dL [facility] Albumin 4.2 3.2 - 5.2 gm/dL [facility] Aspartate Aminotransferase 19 0 - 30 unit/L [facility] Alanine Aminotransferase 22 0 - 30 unit/L [facility] Alkaline Phosphatase 31(L) 35 - 105 unit/L [facility] Bilirubin, Total 0.3 0.2 - 1.3 mg/dL [facility] Bilirubin, Direct 0.1 0.0 - 0.3 mg/dL [facility] Blood 11/15/2020 11:1 8 AM EDT 11/15/2020 11:24 AM EDT Narrative Resulting Agency Comment Spec In Lab Tereso Mohan MD CHEMISTRY ORDERABLES Performing Organization Address City/[facility]/ZIP Co de Phone Number [facility] [place] [address] * Valproic Acid Level, Total (11/15/2020 11:18 AM EDT) Valproic Acid 62 mg/L [facility] Comment: Therapeutic Range: Anticonvulsant Therapy: ??50-100 mg/L Manic Episodes Associated with Bipolar Disorder: ??50-125 mg/L Blood 11/15/2020 11:1 8 AM EDT 11/15/2020 11:24 AM EDT Narrative Resulting Agency Comment Spec In Lab Tereso Mohan MD CHEMISTRY ORDERABLES Performing Organization Address City/State/[facility] Co de Phone Number [facility] [place] [address] documented in this encounter Visit Diagnoses Diagnosis Seizures Other convulsions documented in this encounter Care Teams Business Development Intern Relationship Specialty Start Date End Date Comfort Urban, SELVIN [address] [place] [address] PCP - General Family Medicine 07/19/17 03/11/23 documented as of this encounter
--- OUTSIDE RECORDS SUMMARY | 2023-11-16 14:15 | XMS_ITS | Encounter Summary ---
Author Organization [facility] [place] [address] Care Team Providers Care Ends Down Checker Name Role Phone Comfort Urban APRN Primary Care Provider [phone] Reason for Visit * Reason Onset Date Comments Medication Refill 09/08/2019 Encounter Details Date Type Department Care Team (Late st Contact Info) Description 09/08/2019 Refill [place] [address] Tereso Mohan MD [facility] [place] [address] Social History Tobacco Use Types Packs/Day Years [...] 10:00 AM EDT Office [place] [phone] Tereso Mohan MD [facility] [place] [address] 12/24/2023 10:30 AM EDT Appointment XRay at [address] [place] [address] Shelby Aaron APRN [facility] [place] [address] 12/24/2023 11:30 AM EDT Office Visit Pain and Spine Center at [facility] [place] [address] Shelby Aaron APRN [facility] [place] [address] documented as of this encounter Visit Diagnoses Not on filedocumented in this encounter Care Teams Ends Down Checker Relationship Specialty Start Date End Date Comfort Urban APRN [address] [place] [address] PCP - General Family Medicine 07/19/17 03/11/23 documented as of this encounter
--- OUTSIDE RECORDS SUMMARY | 2023-11-16 14:15 | XMS_ITS | Encounter Summary ---
[place] [address] Care Team Providers Care Associate Professor Of Economics Name Role Phone Comfort Urban APRN Primary Care Provider [phone] Reason for Visit * Reason Onset Date Comments Medication Refill Appointment 08/16/2020 Encounter Details Date Type Department Care Team (Late st Contact Info) Description 08/16/2020 Ref[place] [address] Tereso Mohan MD [facility] [place] [address] Social History Tobacco Use Types Packs/Day Years [...] encounter Miscellaneous Notes * Telephone Encounter - Jolynn Stern - 10/20/2020 2:13 PM EDT Patient is all set and scheduled * Telephone Encounter - Elizabeth Ledesma RN - 08/16/2020 11:18 AM EDT Surescript request for : Topamax Last rx: Quantity: Refills: From last note: There is convincing evidence now that she has epilepsy, and that she probably needsDepakote for seizure control. 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 It is reassuring that MRI is normal. She is doing well on the combination of Depakote and Topamax, and Topamax has h elped her to lose weight. I am inclined to make no change. Last appt: 02/22/20 Next appt: Due for follow up appointment. Message sent to Epi city secretary. documented in this encounter Plan of Treatment Upcoming Encounters Date Type Department Care Team (Late st Contact Info) Description 12/24/2023 10:00 AM EDT Office [place] [address] Tereso Mohan MD [facility] [place] [address] 12/24/2023 10:30 AM EDT Appointment XRay at [address] [place] [address] Shelby Aaron [facility] [address] 12/24/2023 11:30 AM EDT Office Visit [facility] [place] [address] Shelby Aaron MODULAR HOME CREW MEMBER [facility] [address] documented as of this encounter Visit Diagnoses Not on filedocumented in this encounter Care Teams Associate Professor Of Economics Relationship Specialty Start Date End Date Comfort Urban APRN [address] [place] [address] PCP - General Family Medicine 07/19/17 03/11/23 documented as of this encounter
--- OUTSIDE RECORDS SUMMARY | 2023-11-16 14:15 | XMS_ITS | Encounter Summary ---
Author Organization [facility] [place] [address] Care Team Providers Care Bookmobile Clerk Name Role Phone Comfort Urban APRN Primary Care Provider [phone] Reason for Visit * Reason Onset Date Comments Appointment 04/06/2021 Encounter Details Date Type Department Care Team (Late st Contact Info) Description 04/06/2021 Telephone [place] [address] Tereos Mohan MD [facility] [place] [address] Appointment Social History Tobacco Use Types Packs/Day [...] * Telephone Encounter - Gabriella Farmer - 04/06/2021 [...] 10:00 AM EDT Office Visit Neurology at [place] [phone] Tereso Mohan MD [facility] [place] [address] 12/24/2023 10:30 AM EDT Appointment XRay at [address] [place] [phone] Shelby Aaron, FEATHER BONER [facility] [place] [address] 12/24/2023 11:30 AM EDT Office Visit [facility] [place] [phone] Shelby Aaron, FEATHER BONER [facility] [place] [address] documented as of this encounter Visit Diagnoses Not on filedocumented in this encounter Care Teams Bookmobile Clerk Relationship Specialty Start Date End Date Comfort Urban APRN [address] [place] [address] PCP - General Family Medicine 07/19/17 03/11/23 documented as of this encounter
--- OUTSIDE RECORDS SUMMARY | 2023-11-16 14:15 | XMS_ITS | Encounter Summary ---
[place] [address] Care Team Providers Care Electrical Automation Engineer Name Role Phone Comfort Urban APRN Primary Care Provider [phone] Reason for Visit * Auth/Cert Specialty Diagnoses / Procedures Referred By Contac t Referred To Contact Diagnoses Lumbar radiculopathy Procedures PRO INJECTION DX/THER SBST INTRLMNR LMBR/SAC W/IMG GDN INJECTION, EPIDURAL, LUMBAR OR SACRAL (CAUDAL), WITH IMAGING GUIDANCE (WRVU 1.8) Referral ID Status Reason Start Date Expiration Date Visits Re quested Visits Authorized [id number] 1 1 Encounter Details Date Type Department Care Team (Latest Contact Info) Description 01/29/2020 1:20 PM EST - 01/29/2020 2:39 PM [facility] [place] [address] Sarah Munguia MD [facility] [place] [address] Radiculopathy of lumbar region; Radiculopathy of lumbar region Discharge Disposition: Home [...] file Gets together: Not on file Attends voodoo service: Not on file Active member of [...] Fellow [facility] [address] [address] [email or web address] documented in this encounter Miscellaneous Notes * Op Note - Sarah Munguia MD - 01/29/2020 2:10 PM EST Pain Management Operative Note Patient Name: Bessie Levy : [id number] MR#: [id number] Case Date: 01/29/2020 Surgeon: Surgeon(s) and Role: [...] not any unusual discomfort expressed by Ms. eLvy. (48 cc of Omnipaque was wasted) Ms. [...] procedure. Sarah Munguia MD [facility] [employer] [facility] Anesthesiology [place] of Medicine [address] [address] / [email or web address] CC: No referring provider defined for this encounter. documented in this encounter Plan of Treatment Upcoming Encounters Date Type Department Care Team (Late st Contact Info) Description 12/24/2023 10:00 AM EDT Office Visit Neurology at [place] [phone] Tereso Mohan MD [facility] [place] [address] 12/24/2023 10:30 AM EDT Appointment XRay at [address] [place] [phone] Shelby Aaron NETWORK TECHNICAL ANALYST [facility] [place] [address] 12/24/2023 11:30 AM EDT Office Visit Pain and Spine Center at [place] [phone] Shelby Aaron NETWORK TECHNICAL ANALYST [facility] [place] [address] Scheduled Orders Name Type Priority Associated Diagnoses [...] Until Sat01/29/20 at 1639, Intra-Operative (Intra-Procedure), Routine 1429 (Given - Provid er: Jeremías Patterson MD) lidocaine (pf) (Xylocaine) (10 mg/mL) 1% injection (CANCELED) ONCE PRN, Starting on Sat01/29/20 at 1429, Until Sat01/29/20 at 1639, Intra-Operative (Intra-Procedure), Routine 142 (Given - Provid er: Jeremías Patterson MD - Comment: Epidural) methylPREDNISolone acetate (DEPO-Medrol) (80 mg/mL) injection (CANCELED) ONCE PRN, Starting on Sat01/29/20 at 1429, Until Sat01/29/20 at 1639, Intra-Operative (Intra-Procedure), Routine 142 (Given - Provid er: Jeremías Patterson MD) documented in this encounter Care Teams Electrical Automation Engineer Relationship Specialty Start Date End Date Comfort Urban, SELVIN [address] [facility] [address] PCP - General Family Medicine 07/19/17 03/11/23 documented as of this encounter
--- OUTSIDE RECORDS SUMMARY | 2023-11-16 14:15 | XMS_ITS | Encounter Summary ---
[place] [address] Care Team Providers Care Infantry Operations Specialist Name Role Phone Comfort Urban APRN Primary Care Provider [phone] Reason for Visit * Auth/Cert Specialty Diagnoses / Procedures Referred By Contac t Referred To Contact Diagnoses Lumbar radiculopathy Procedures PRO INJECTION DX/THER SBST INTRLMNR LMBR/SAC W/IMG GDN INJECTION, EPIDURAL, LUMBAR OR SACRAL (CAUDAL), WITH IMAGING GUIDANCE (WRVU 1.8) Referral ID Status Reason Start Date Expiration Date Visits Re quested Visits Authorized [id number] 1 1 Encounter Details Date Type Department Care Team (Late st Contact Info) Description 01/29/2020 1:45 PM EST Ancillary [place] [phone] Sarah Munguia MD [facility] [place] [address] Pain Social History Tobacco Use Types Packs/Day Years [...] 10:00 AM EDT [place] [address] Tereso Mohan MD [facility] [place] [address] 12/24/2023 10:30 AM EDT Appointment XRay at [address] [place] [address] Shelby Aaron, BLACK LEATHER TRIMMER [facility] [place] [address] 12/24/2023 11:30 AM EDT Office Visit Pain and Spine Center at [facility] [place] [phone] Shelby Aaron, BLACK LEATHER TRIMMER [facility] [place] [address] documented as of this encounter Procedures Procedure Name Priority Date/Time Associated Diagnosis Comments FILM LIBRARY STORAGE ONLY PAIN CLINIC C ARM Routine 02/02/2020 2:41 PM EST Pain documented in this encounter Results * Film Library- Storage Only pain Clinic C-Arm (02/02/2020 2:41 PM EST) Narrative [facility] - 02/02/2020 2:41 PM EST See PACS for result report. Sarah Munguia MD [facility] [place] LIBRARY ORD ERABLES [place] documented in this encounter Visit Diagnoses Diagnosis Pain Generalized pain documented in this encounter Care Teams Infantry Operations Specialist Relationship Specialty Start Date End Date Comfort Urban APRN [address] [place] [address] PCP - General Family Medicine 07/19/17 03/11/23 documented as of this encounter
--- OUTSIDE RECORDS SUMMARY | 2023-11-16 14:15 | XMS_ITS | Encounter Summary ---
Author Organization [facility] [place] [address] Care Team Providers Care Respiratory Practitioner Name Role Phone Comfort Urban APRN Primary Care Provider [phone] Reason for Visit * Reason Comments Pain Management f/u to PT Encounter Details Date Type Department Care Team (Latest Contact Info) Description 06/14/2020 8:30 AM EDT Office Visit [place] [address] Sarah Munguia MD [facility] [place] [address] Radiculopathy of lumbar region; Chronic pain syndrome [...] 36.9 ??C (98.5 ??F) 06/14/2020 8:28 AM ED T Respiratory Rate - - Oxygen Saturation 100% 06/14/2020 8:28 AM EDT Inhaled Oxygen Concentration - - Weight 73.9 kg (163 lb) 06/14/2020 8:28 AM EDT Height - - Body Mass Index 30.8 02/22/2020 12:51 PM EST documented in this encounter Progress Notes * Sarah Munguia MD - 06/14/2020 8:30 AM EDT [facility] follow-up visit note [...] gabapentin-seizures PT: yes Psychology: no Acupuncture: no health care aide: no TENS Unit: no Injections: Patient underwent [...] bulging and bilateral facet arthropathy. Review of [place] and [place] Prescription Monitoring Program (ENGINEERING ILLUSTRATOR): Today I have also reviewed the patient's history of controlled substance use. Review of Pain Questionnaire: Please see the [facility] health questionnaire, which the patient completed and reviewed with me in detail. Review of Electronic Chart: Today I have also reviewed available medical information in the patient's medical record at [facility]([employer]), including relevant provider notes, laboratory work, and [...] Gatherings with Friends and Family: ??? Attends Episcopal Services: ??? Active Member of Clubs or [...] equivocal Mild bilateral lumbar paraspinal tenderness Neurologic: liquid chlorine operator - grossly intact Reflexes - 2+ and [...] future Sarah Munguia MD [facility] Hide And Skin Fleshing Machine Operator of Anesthesiology Formerly [facility] [employer] [address] [address] / [facility] CC: Comfort Urban APRN [address] [place] [address] documented in this encounter Plan of Treatment Upcoming Encounters Date Type Department Care Team (Late st Contact Info) Description 12/24/2023 10:00 AM EDT Office Visit Neurology at [place] [address] Tereso Mohan MD [facility] [place] [address] 12/24/2023 10:30 AM EDT Appointment XRay at [address] [place] [address] Shelby Aaron PLATE PRINTER [facility] [place] [address] 12/24/2023 11:30 AM EDT Office Visit [facility] Center at [place] [address] Shelby Aaron PLATE PRINTER [facility] [place] [address] documented as of this encounter Visit Diagnoses Diagnosis Radiculopathy of lumbar region Thoracic or lumbosacral neuritis or radiculitis, unspecified Chronic pain syndrome documented in this encounter Care Teams Respiratory Practitioner Relationship Specialty Start Date End Date Comfort Urban APRN [address] [place] [address] PCP - General Family Medicine 07/19/17 03/11/23 documented as of this encounter
--- OUTSIDE RECORDS SUMMARY | 2023-11-16 14:15 | XMS_ITS | Encounter Summary ---
Author Organization [facility] [place] [address] Care Team Providers Care Document Management Analyst Name Role Phone Comfort Urban APRN Primary Care Provider [phone] Reason for Visit * Reason Comments Medication Refill Encounter Details Date Type Department Care Team (Late st Contact Info) Description 05/05/2020 [place] [address] Tereso Mohan MD [facility] [address] Social History Tobacco Use Types Packs/Day Years [...] 10:00 AM EDT [place] [address] Tereso Mohan MD [facility] [place] [address] 12/24/2023 10:30 AM EDT Appointment XRay at [address] [place] [address] Shelby Aaron, BLACK OXIDE OPERATOR [facility] [address] 12/24/2023 11:30 AM EDT Office Visit [place] [address] Shelby Aaron BLACK OXIDE OPERATOR [facility] [address] documented as of this encounter Visit Diagnoses Not on filedocumented in this encounter Care Teams Document Management Analyst Relationship Specialty Start Date End Date Comfort Urban APRN [address] [place] [address] PCP - General Family Medicine 07/19/17 03/11/23 documented as of this encounter
--- OUTSIDE RECORDS SUMMARY | 2023-11-16 14:15 | XMS_ITS | Encounter Summary ---
Author Organization [facility]ly [facility] [place] [place] [address] Care Team Providers Care Nightclub Manager Name Role Phone Comfort Urban MUSIC SUPERVISOR Primary Care Provider [phone] Reason for Referral * Physical Therapy (Routine) - Specialty Diagnoses / Procedures Referred By Contac t Referred To Contact Diagnoses Radiculopathy of lumbar region Sarah Munguia MD [facility] PAIN MANAGEMENT [place] [id number] Referral ID Status Reason Start Date Expiration Date V isits Requested Visits Authorized [id number] Evaluate and Treat 03/07/2020 09/03/2020 12 12 Reason for Visit * Reason Comments Pain Management f/u s/p LESI Encounter Details Date Type Department Care Team (Latest Contact Info) Description 03/07/2020 10:00 AM EST Office Visit [place] [address] Sarah Munguia MD [facility] PAIN MANAGEMENT [place] [id number] Radiculopathy of lumbar region; Chronic pain syndrome [...] 37.1 ??C (98.7 ??F) 03/07/2020 9:54 AM ES T Respiratory Rate - - Oxygen Saturation 99% 03/07/2020 9:54 AM EST Inhaled Oxygen Concentration - - Weight 73.9 kg (163 lb) 03/07/2020 9:54 AM EST Height - - Body Mass Index 30.8 02/22/2020 12:51 PM EST documented in this encounter Progress Notes * Sarah Munguia MD - 03/07/2020 10:00 AM EST [facility] Pain Clinic follow-up visit note Date [...] Patient has done some physical therapy at [facility] which has been beneficial. Patient is interested [...] gabapentin-seizures PT: yes Psychology: no Acupuncture: no rn managed care: no TENS Unit: no Injections: no [...] bulging and bilateral facet arthropathy. Review of [place] and [place] Prescription Monitoring Program (ENVIRONMENTAL TEST TECHNICIAN): Today I have also reviewed the patient's history of controlled substance use. Review of Pain Questionnaire: Please see the [facility] Pain Management Center health questionnaire, which the patient completed and reviewed with me in detail. Review of Electronic Chart: Today I have also reviewed available medical information in the patient's medical record at [facility](EPIC), including relevant provider notes, laboratory work, and [...] file Gets together: Not on file Attends scientology service: Not on file Active member of [...] negative Mild right lumbar paraspinal tenderness Neurologic: fire fighter - grossly intact Reflexes - 2+ and [...] as per patient's request. Physical therapy has beenbeneficial. 2. Clinical Health Psychologist to address issues [...] therapy Sarah Munguia MD [facility] Hydraulic Miner of Anesthesiology [facility] [address] [address] / [facility] CC: Tereso Mohan MD [facility] [place] [address] documented in this encounter Plan of Treatment Upcoming Encounters Date Type Department Care Team (Late st Contact Info) Description 12/24/2023 10:00 AM EDT [place] [address] Tereso Mohan MD [facility] [place] [address] 12/24/2023 10:30 AM EDT Appointment XRay at [address] [place] [address] Shelby Aaron APRN [facility] [place] [address] 12/24/2023 11:30 AM EDT Office Visit [place] [address] Shelby Aaron APRN [facility] [place] [address] Scheduled Referrals Name Type Priority Associated Diagnoses Orde r Schedule Referral to Physical Therapy Outpatient Referral Routine Radiculopathy of lumbar region Ordered: 03/07/2020 documented as of this encounter Visit Diagnoses Diagnosis Radiculopathy of lumbar region Thoracic or lumbosacral neuritis or radiculitis, unspecified Chronic pain syndrome documented in this encounter Care Teams Nightclub Manager Relationship Specialty Start Date End Date Comfort Urban APRN [address] [place] [address] PCP - General Family Medicine 07/19/17 03/11/23 documented as of this encounter
--- OUTSIDE RECORDS SUMMARY | 2023-11-16 14:15 | XMS_ITS | Encounter Summary ---
[place] [address] Care Team Providers Care Assistant Production Manager Name Role Phone Comfort Urban APRN Primary Care Provider [phone] Reason for Referral * Diagnostic Test (Routine) - Closed Specialty Diagnoses / Procedures Referred By Contac t Referred To Contact Radiology Diagnoses Sciatica of right side Procedures MRI Lumbar Spine wo Contrast (Generic) Tereso Mohan MD [facility] [place] [address] [place] [address] Referral ID Status Reason Start Date Expiration Date V isits Requested Visits Authorized [id number] Closed Specialty Service Requested 11/26/2019 05/24/2020 1 1 Reason for Visit * Reason Onset Date Comments Triage 10/12/2019 Encounter Details Date Type Department Care Team (Late st Contact Info) Description 10/12/2019 [place] [address] Tereso Mohan MD [facility] [place] [address] Triage Social History Tobacco Use Types Packs/Day Years [...] or next week. Message forwarded to Epi payroll secretary to facilitate with scheduling. * Telephone Encounter - Elizabeth Ledesma RN - 10/12/2019 12:31 PM EDT [place] - 09/16/2019 [place] - 03/07/2020 Spoke to patient. Reports that her sciatic pain has gotten worse. My back is killing me. Reports a lot of throbbing pain and tingling sensation on her right leg. Before the pain comes and goes but now it has been contact. 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 And she's unsure if her constant standing [...] to this plan. * Telephone Encounter - Xavier Mcghee - 10/12/2019 9:29 AM EDT Call Center / [place] Message - Pain Do not use for calls regarding chest pain or headaches/head pain Provider pt sees in Clinic: Dr. Mohan Caller and relationship (if other than patient-full name): self Call back number: [phone] Ok to leave a message: yes Reason for call: PAIN Where is the pain: Right in the middle of back and right leg. Is the pain still happening/present: yes Has the patient had this pain before: yes Level of pain on 0-10 scale (7 or greater red arrow message to the nurse): currently it is at a five as patient has rested all night, but after [...] 10:00 AM EDT [place] [address] Tereso Mohan MD [facility] [place] [address] 12/24/2023 10:30 AM EDT Appointment XRay at [address] [place] [address] Shelby Aaron APRN [facility] [place] [address] 12/24/2023 11:30 AM EDT Office Visit [place] [address] Shelby Aaron APRN [facility] [place] [address] documented as of this encounter Results * MRI Lumbar Spine [...] the clinical situation (Reference- Keylavik Et Al, Spine 2001). Findings: (Prevalence in [...] the clinical situation (Reference- Keylavik Et Al, Kammz6512). Findings: (Prevalence in patients without low back [...] Sciatica documented in this encounter Care Teams Assistant Production Manager Relationship Specialty Start Date End Date Comfort Urban APRN [address] [place] [address] PCP - General Family Medicine 07/19/17 03/11/23 documented as of this encounter
--- OUTSIDE RECORDS SUMMARY | 2023-11-16 14:15 | XMS_ITS | Encounter Summary ---
[place] [address] Care Team Providers Care Fern Gatherer Name Role Phone Comfort Urban APRN Primary Care Provider [phone] Encounter Details Date Type Department Care Team (Late st Contact Info) Description 01/04/2020 Notes Only [facility] [place] [address] Angelika Donald Social History Tobacco Use Types Packs/Day Years Used Date Smoking Tobacco: Never Smokeless Tobacco: Never Alcohol Use Standard Drinks/Week Comments Never 0 (1 standard drink = 0.6 oz pur e alcohol) Sex and Gender Information Value Date Recorded Sex Assigned at Not on file Gender Identity Not on file Sexual Orientation Not on file documented as of this encounter Progress Notes * Angelika Donald - 01/04/2020 2:01 PM EST [...] recommended or prescribed by provider, contact Pain Management) ASA, Yunior, Excedrein 6 days Per Prescriber Diclofenac [...] Garlic, Vitamin E, Bromelain, Nattokinase 7 days 24hours after Currently taking any oral steroids (i.e. prednisone) or have you had a steroid injection within thepast two weeks? no Are you currently taking [...] 10:00 AM EDT [place] [address] Tereso Mohan MD [facility] [place] [address] 12/24/2023 10:30 AM EDT Appointment XRay at [address] [place] [address] Shelby Aaron APRN [facility] PAIN [place] [address] 12/24/2023 11:30 AM EDT Office Visit [place] [address] Shelby Aaron APRN [facility] [place] [address] documented as of this encounter Visit Diagnoses Not on filedocumented in this encounter Care Teams Fern Gatherer Relationship Specialty Start Date End Date Comfort Urban APRN [address] [place] [address] PCP - General Family Medicine 07/19/17 03/11/23 documented as of this encounter
--- OUTSIDE RECORDS SUMMARY | 2023-11-16 14:15 | XMS_ITS | Encounter Summary ---
Author Organization [facility] [place] [address] Care Team Providers Care Cotton Grower Name Role Phone Comfort Urban APRN Primary Care Provider [phone] Encounter Details Date Type Department Care Team (Late st Contact Info) Description 09/03/2018 8:00 AM EDT Office [place] [address] Tereso Mohan MD [facility] [place] [address] Seizures Social History Tobacco Use Types Packs/Day [...] Weight 87.4 kg (192 lb 9.6 oz) 09/04/19 19 8:05 AM EDT With shoes Height 154.9 cm (5' 1) 09/03/2018 8:05 AM EDT Reported Body Mass Index 36.39 09/03/2018 8:05 AM EDT documented in this encounter Patient Instructions * Patient Instructions* Tereso Mohan MD - 09/03/2018 8:00 AM [...] that is not a good drug for patients with your type of epilepsy. I would like to see you for a follow-up visit with Dr. Mosley in a few months. We will set this up. Tereso Mohan MD [place] [address] Pager: [phone], #[phone] Email: [email or web address] documented in this encounter Progress Notes * Tereso Mohan MD - 09/03/2018 8:00 AM [...] ?? 2. EEG: ?- Routine EEG:Done at [facility] 05/05/18: Normal study. ?? 3. Epilepsy Monitoring [...] that led to her being taken to [facility] emergency room. She had bitten side of her tongue quite badly, for the first time. She was discharged from that without change in medication. She had another seizure at home and was taken to the emergency room at [facility] where she was held [...] two children. 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 ?? Family history: [...] response was flexor bilaterally. ?? Cerebellar: Normal [id number] ?? Gait: gait was normal. Laboratory studies: 1. Brain imaging: ?- MRI brain was done in 2016 was unremarkable per patient. -MRI brain: 05/10/2018- No acute intracranial abnormality ? -CT scan head- None ?? 2. EEG: ?- Routine EEG:Done at [facility] 05/05/18: Normal study. Blood Tests: None ordered [...] to 100 mg twice daily to help with seizure control and with the side effects of Depakote. 2. I am concerned that she is taking gabapentin, Abilify and Celexa. 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 However I will not make any change at this time. Thank you for this consultation. We will see the patient back in the epilepsy clinic in 2 to 3 months or sooner if necessary. Tereso Mohan MD [place] [address] Pager #[phone] Email: [email or web address] CC: Comfort POTTS documented in this encounter Plan of Treatment Upcoming Encounters Date Type Department Care Team (Late st Contact Info) Description 12/24/2023 10:00 AM EDT Office [place] [address] Tereso Mohan MD [facility] [place] [address] 12/24/2023 10:30 AM EDT Appointment XRay at [address] [place] [address] Shelby Aaron APRN [facility] [place] [address] 12/24/2023 11:30 AM EDT Office Visit [facility] [place] [address] Shelby Aaron APRN [facility] [place] [address] documented as of this encounter Visit Diagnoses Diagnosis Seizures Other convulsions documented in this encounter Care Teams Cotton Grower Relationship Specialty Start Date End Date Comfort Urban APRN [address] [place] [address] PCP - General Family Medicine 07/19/17 03/11/23 documented as of this encounter
--- OUTSIDE RECORDS SUMMARY | 2023-11-16 14:15 | XMS_ITS | Encounter Summary ---
Author Organization [facility] [place] [address] Care Team Providers Care Learning Support Resource Room Teacher Name Role Phone Comfort Urban APRN Primary Care Provider [phone] Reason for Visit * Reason Onset Date Comments Medication Refill 07/05/2020 Encounter Details Date Type Department Care Team (Late st Contact Info) Description 07/05/2020 Ref[place] [address] Tereso Mohan MD [facility] [place] [address] Social History Tobacco Use Types Packs/Day Years [...] AM EDT Office [place] [address] Tereso Mohan MD [facility] [place] [address] 12/24/2023 10:30 AM EDT Appointment XRay at [address] [place] [address] Shelby Aaron APRN [facility] [place] [address] 12/24/2023 11:30 AM EDT Office Visit Pain and Spine Center at [facility] [place] [address] Shelby Aaron APRN [facility] [place] [address] documented as of this encounter Visit Diagnoses Not on filedocumented in this encounter Care Teams Learning Support Resource Room Teacher Relationship Specialty Start Date End Date Comfort Urban APRN [address] [place] [address] PCP - General Family Medicine 07/19/17 03/11/23 documented as of this encounter
--- OUTSIDE RECORDS SUMMARY | 2023-11-16 14:15 | XMS_ITS | Encounter Summary ---
[place] [address] Care Team Providers Care Aircraft Part Assembler Name Role Phone Comfort Urban APRN Primary Care Provider [phone] Encounter Details Date Type Department Care Team (Late st Contact Info) Description 01/26/2020 Telephone [facility] [place] [address] Dina Morales, RN Social History Tobacco Use Types Packs/Day [...] encounter Miscellaneous Notes * Telephone Encounter - Dina Morales, RN - 01/26/2020 8:47 AM EST Bessie Ventura Cam :1985 Message left: I left a message on answering machine Ms. Levy at 8:48 AM regarding her upcoming Neither lumbar epidural steroid injection with Dr. Sarah Munguia MD. Message included the followin. Patient instructed to arrive at 13:45 on 01/29/20 with their equipment driver. 2. Following instructions left in the [...] EDT Office Visit Neurology at [place] [phone] Tereso Mohan MD [facility] [place] [address] 12/24/2023 10:30 AM EDT Appointment XRay at [address] [place] [address] Shelby Aaron VISCOSITY WORKER [facility] [place] [address] 12/24/2023 11:30 AM EDT Office Visit [facility] [place] [address] Shelby Aaron VISCOSITY WORKER [facility] [place] [address] documented as of this encounter Visit Diagnoses Not on filedocumented in this encounter Care Teams Aircraft Part Assembler Relationship Specialty Start Date End Date Comfort Urban APRN [address] [place] [address] PCP - General Family Medicine 07/19/17 03/11/23 documented as of this encounter
--- OUTSIDE RECORDS SUMMARY | 2023-11-16 14:15 | XMS_ITS | Encounter Summary ---
Author Organization [facility] [place] [address] Care Team Providers Care Green Building Materials Designer Name Role Phone Comfort Urban APRN Primary Care Provider [phone] Reason for Visit * Reason Comments Medication Refill Encounter Details Date Type Department Care Team (Late st Contact Info) Description 02/09/2020 [place] [address] Tereso Mohan MD [facility] [place] [address] Social History Tobacco Use Types Packs/Day Years [...] 10:00 AM EDT [place] [address] Tereso Mohan MD [facility] [place] [address] 12/24/2023 10:30 AM EDT Appointment XRay at [address] [place] [address] Shelby Aaron, GLASS CALIBRATOR [facility] [place] [address] 12/24/2023 11:30 AM EDT Office Visit [place] [address] Shelby Aaron [facility] [place] [address] documented as of this encounter Visit Diagnoses Not on filedocumented in this encounter Care Teams Green Building Materials Designer Relationship Specialty Start Date End Date Comfort Urban APRN [address] [place] [address] PCP - General Family Medicine 07/19/17 03/11/23 documented as of this encounter
--- OUTSIDE RECORDS SUMMARY | 2023-11-16 14:15 | XMS_ITS | Encounter Summary ---
Author Organization [facility] [place] [address] Care Team Providers Care Dobie Worker Name Role Phone Comfort Urban APRN Primary Care Provider [phone] Reason for Visit * Reason Onset Date Comments Medication Refill 12/09/2019 Encounter Details Date Type Department Care Team (Late st Contact Info) Description 12/09/2019 [place] [address] Tereso Mohan MD [facility] [address] Social History Tobacco Use Types Packs/Day Years [...] 10:00 AM EDT Office [place] [address] Tereso Mohan MD [facility] [place] [address] 12/24/2023 10:30 AM EDT Appointment XRay at [address] [place] [address] Shelby Aaron APRN [facility] [place] [address] 12/24/2023 11:30 AM EDT Office Visit [facility] at [facility] [place] [address] Shelby Aaron APRN [facility] [place] [address] documented as of this encounter Visit Diagnoses Not on filedocumented in this encounter Care Teams Dobie Worker Relationship Specialty Start Date End Date Comfort Urban APRN [address] [place] [address] PCP - General Family Medicine 07/19/17 03/11/23 documented as of this encounter
--- OUTSIDE RECORDS SUMMARY | 2023-11-16 14:15 | XMS_ITS | Encounter Summary ---
Author Organization [facility] [address] Care Team Providers Care Correspondence Review Clerk Name Role Phone Comfort Urban APRN Primary Care Provider [phone] Reason for Visit * Reason Onset Date Comments Medication Refill 08/15/2020 Encounter Details Date Type Department Care Team (Late st Contact Info) Description 08/15/2020 Ref[place] [address]-1000 Tereso Mohan MD [facility] [place] [address] Social History Tobacco Use Types Packs/Day Years [...] AM EDT Office [place] [phone] Tereso Mohan MD [facility] [place] [address] 12/24/2023 10:30 AM EDT Appointment XRay at [address] [place] [address] Shelby Aaron APRN [facility] [place] [address] 12/24/2023 11:30 AM EDT Office Visit [facility] and Sp[facility] at [facility] [place] [address] Shelby Aaron APRN [facility] [place] [address] documented as of this encounter Visit Diagnoses Not on filedocumented in this encounter Care Teams Correspondence Review Clerk Relationship Specialty Start Date End Date Comfort Urban APRN [address] [place] [address] PCP - General Family Medicine 07/19/17 03/11/23 documented as of this encounter
--- OUTSIDE RECORDS SUMMARY | 2023-11-16 14:15 | XMS_ITS | Encounter Summary ---
Author Organization [facility] [place] [address] Care Team Providers Care Lead Nitrate Processor Name Role Phone Comfort Urban APRN Primary Care Provider [phone] Encounter Details Date Type Department Care Team (Late st Contact Info) Description 09/16/2018 Refill Neurology at [facility] [place] [address] Charito Mosley MBBS [facility] [place] [address] Social History Tobacco Use Types Packs/Day Years [...] agreement and verbalized understanding of the plan. * Telephone Encounter - Elizabeth Ledesma RN - 09/16/2018 10:57 AM EDT Spoke to patient. Reported that her Topamax was increased to 200 mg BID when she in [facility] ED last 09/01/18. Reported that she was feeling foggy at some point when she started this dose. But now feeling ok with the Topamax 200 mg BID. Patient wanted to know if she should continue taking this. Report forwarded to Dr. Mohan for recommendation. * Telephone Encounter - Virginie Link - 09/16/2018 10:24 AM EDT Clinical Roads And Parking Lots Sweeper Operator Message Caller: Bessie If not Pt / Relation to pt: self Call back Number: [phone] Reason for call: new prescription required for increased dosage of medication Message/information for the nurse: Per Caller, her Rx for topiramate (TOPAMAX) 100 mg Tablet has been increased to 200mg, twice daily. As such, she is requesting a new prescription be prepared and sent to her pharmacy on record. Disposition of Call ?? Red Arrow Message Reason red arrow Message: new prescription required after increased dosage documented in this encounter Plan of Treatment Upcoming Encounters Date Type Department Care Team (Late st Contact Info) Description 12/24/2023 10:00 AM EDT [place] [address] Tereso Mohan MD [facility] [place] [address] 12/24/2023 10:30 AM EDT Appointment XRay at [address] [place] [phone] Shelby Aaron APRN [facility] [place] [address] 12/24/2023 11:30 AM EDT Office Visit [place] [address] Shelby Aaron APRN [facility] [place] [address] documented as of this encounter Visit Diagnoses Not on filedocumented in this encounter Care Teams Lead Nitrate Processor Relationship Specialty Start Date End Date Comfort Urban APRN [address] [facility] [place] [address] PCP - General Family Medicine 07/19/17 03/11/23 documented as of this encounter
--- OUTSIDE RECORDS SUMMARY | 2023-11-16 14:16 | XMS_ITS | Encounter Summary ---
Author Organization [facility] Address [address] [place] [address] Care Team Providers Care Entry Level Sales Consultant Name Role Phone Comfort Urban SHANICE Primary Care Provider [phone] Encounter Details Date Type Department Care Team (Late st Contact Info) Description 08/05/2019 Lab Requisition [facility] Pathology & Laboratory Medicine - [address] [address] Cassie Alcocer MD [address] [place] [address],[address] [place] [id number] Encounter for other general examination Social History Tobacco Use Types Packs/Day Years Used Date Smoking Tobacco: Never Assessed Sex and Gender Information Value Date Recorded Sex Assigned at Not on file Gender Identity Not on file Sexual Orientation Not on file documented as of this encounter Plan of Treatment Not on file documented as of this encounter Procedures Procedure Name Priority Date/Time Associated Diagnosis Comments SURGICAL PATHOLOGY Today 08/05/2019 9: 40 EDT Encounter for other general examination documented in this encounter Results * SURGICAL PATHOLOGY (08/05/2019 9:40 EDT) Final Diagnosis A. FALLOPIAN TUBE, RIGHT, SALPINGECTOMY: - Acute and chronic salpingitis. - Paratubal cyst. B. FALLOPIAN TUBE, LEFT, SALPINGECTOMY: - Acute and chronic salpingitis. 08/07/2019 15:59 EDT [facility] at 1559 Attestation There was significant resident/fellow involvement in the diagnostic evaluation of this case. By the signature below, the attending physician certifies that they have personally conducted a gross and/or microscopic examination of the described specimens and rendered or confirmed the above diagnosis. 08/07/2019 15:59 EDT [facility] at 1559 Clinical History Desire for permanent sterilization 08/07/2019 15:59 EDT [facility] Gross Description A. Received in formalin labelled with proper patient identification (initials M, L) and right fallopian tube is a tortuous fallopian tube, 5.0 cm in length and ranging from 0.5 to 1.2 cm in diameter. The distal tube shows an intact 1.1 cm in diameter clear fluid-filled paratubal cyst. The serosal surface is without adhesions. Sections show an intact wall and pinpoint lumen. Pharmacy Benefit Manager sections are submitted to include the entire distal end and two central cross sections in A1-A2. B. Received in formalin labelled with proper patient identification (initials M, L) and left fallopian tube is a slightly tortuous fallopian tube, 5.0 cm in length and ranging from 0.6 to 1.1 cm in diameter. The serosal surfaces without adhesions. Sections show an intact wall and pinpoint lumen. Pharmacy Benefit Manager sections are submitted to include the entire distal end and two central cross sections in B1-B2. Cindy Smith 08/06/2019 12:34 08/07/2019 15:59 EDT [facility] Resident/Rafael w: Evan Jackson MD 08/07/2019 15:59 EDT [facility] Scanned Images 08/07/2019 15:59 EDT [facility] Tissue ENTIRE FALLOPIAN TUBE / Unknown 08/05/2019 9:40 EDT 08/05/2019 17:58 EDT Tissue specimen (specimen) FALLOPIAN TUBE STRUCTURE / Unknown 08/05/2019 9:40 EDT 08/05/2019 17:58 EDT Cassie Alcocer MD PATHOLOGY ORDERABLES [facility] [address] [place] [address] documented in this encounter Visit Diagnoses Diagnosis Encounter for other general examination documented in this encounter Care Teams Entry Level Sales Consultant Relationship Specialty Start Date End Date Comfort Urban FNP Nid[address] [facility] [place] [address] PCP - General 08/05/19 documented as of this encounter
--- OUTSIDE RECORDS SUMMARY | 2023-11-16 14:16 | XMS_ITS | Encounter Summary ---
Author Organization [facility] Address [address] [place] [address] Care Team Providers Care Flight Tower Dispatcher Name Role Phone Comfort Urban SHANICE Primary Care Provider [phone] Encounter Details Date Type Department Care Team (Late st Contact Info) Description 11/10/2021 Lab Requisition [facility] Pathology & Laboratory Medicine - [address] [id number] Outr Resulting Lab, Provider Social History Tobacco Use Types Packs/Day Years Used Date Smoking Tobacco: Never Assessed Interpersonal Safety Answer Date Record ed Physically Hurt Never 10/05/2019 Verbally Threaten Not on file 10/05/2019 Sex and Gender Information Value Date Recorded Sex Assigned at Not on file Gender Identity Not on file Sexual Orientation Not on file documented as of this encounter Plan of Treatment Not on file documented as of this encounter Procedures Procedure Name Priority Date/Time Associated Diagnosis Comments ANTI NUCLEAR AB (SAVANNAH), IFA Routine 11/10/2021 9:30 EDT documented in this encounter Results * ANTI NUCLEAR AB (SAVANNAH), IFA (11/10/2021 9:30 EDT) SAVANNAH Interpretation Negative Negative 2021 14:25 EDT [facility] Comment:No titer performed, SAVANNAH Screen is negative. Blood VENOUS BLOOD / Unknown 11/10/2021 9:30 EDT 11/10/2021 21:12 EDT Narrative [facility] - 11/13/2021 14:25 EDT Results were obtained with the INOVA NOVA Lite HEp-2 SAVANNAH Kit by indirect immunofluorescence. Provider Outr Resulting Lab IMMUNOLOGY A ND SEROLOGY ORDERABLES [facility] [address] [place] [address] documented in this encounter Visit Diagnoses Not on filedocumented in this encounter Care Teams Flight Tower Dispatcher Relationship Specialty Start Date End Date Comfort Urban [place] [address] [place] [address] PCP - General 08/05/19 documented as of this encounter
--- OUTSIDE RECORDS SUMMARY | 2023-11-16 14:16 | XMS_ITS | Encounter Summary ---
Author Organization [facility] Address [address] [place] [address] Care Team Providers Care Peer Counselor Name Role Phone Unknown, Provider Primary Care Provider [phone] Encounter Details Date Type Department Care Team (Late st Contact Info) Description 10/19/2016 Results Only [facility] [phone] Mary Urban, SHANICE [address] [facility] [facility], [place] [id number] Social History Tobacco Use Types Packs/Day Years Used Date Smoking Tobacco: Never Assessed Sex and Gender Information Value Date Recorded Sex Assigned at Not on file Gender Identity Not on file Sexual Orientation Not on file documented as of this encounter Plan of Treatment Not on file documented as of this encounter Procedures Procedure Name Priority Date/Time Associated Diagnosis Comments PAP TEST- RESULT ONLY Routine 10/19/2016 0:00 EDT documented in this encounter Results * PAP TEST- RESULT ONLY (10/19/2016 0:00 EDT) Pathology Report: CYTOPATHOLOGY REPORT Reports generated via electronic interface contain original data; however they are lacking the format of the original report. Caution should be taken when reading/interpreti ng unformatted reports. Name: ? BESSIE LEVY ? Accession #: ? [id number] ? : ? 1985 (Age: 30) ??F ?Collect Date: ? 10/19/2016 ? Location: ? [facility] ? Receive Date: ? 10/22/2016 ? Provider: MARY PRASAD Copy to: ? Final Report SPECIMEN ADEQUACY ? Satisfactory for Evaluation - transformation zone component present GENERAL CATEGORIZATION ? Negative for Intraepithelial Lesion or Malignancy ?? Specimen/Source: ??Pap Test, Cervix, ThinPrep Imaging System with manual evaluation Document reviewed and electronically signed by: ? MARLENY Julien(ASCP) ? Report ??Date: 10/30/2016 13:01 HPV with Pap Test ? Date Ordered: ? 10/30/2016 ? Status: ?? Signed Out ?Date Complete: ? 10/31/2016 ? By: ??System Interface ? Date Reported: ? 10/31/2016 ? Interpretation RESULT: Negative for HPV. No E6 or E7 mRNA is detected from HPV types 16,18,31,33,35, 39,45,51,52,56,58, 59,66, and 68 by weigh machine operator mediated amplification. Comments Document reviewed and electronically signed by: ? System Interface ? Report date: 10/31/2016 By the signature above, the attending physician certifies that he/she has personally conducted a gross and/or microscopic examination of the described specimens and rendered or confirmed the above diagnosis. End of Report [facility] 10/19/2016 10/22/2016 Mary PRASAD PATHOLOGY ORDERABLES [facility] [address] [place] [address] documented in this encounter Visit Diagnoses Not on filedocumented in this encounter Care Teams Peer Counselor Relationship Specialty Start Date End Date Unknown, Provider, PCP - General 10/22/16 08/04/19 documented as of this encounter
--- OUTSIDE RECORDS SUMMARY | 2023-11-16 14:16 | XMS_ITS | Encounter Summary ---
Author Organization [facility] [place] [address] Care Team Providers Care Insurance Verification Representative Name Role Phone Janak George MD Primary Care Provider [phone] Encounter Details Date Type Department Care Team (Late st Contact Info) Description 05/10/2014 [place] [address] Moise Rayo MD [facility] [place] [place] [address] Social History Tobacco Use Types Packs/Day Years Used Date Smoking Tobacco: Never Smokeless Tobacco: Never Sex and Gender Information Value Date Recorded Sex Assigned at Not on file Gender Identity Not on file Sexual Orientation Not on file documented as of this encounter Miscellaneous Notes * Telephone Encounter - Moise Rayo MD - 05/10/2014 12:[address] Julien calling from [facility] regarding this patient. She has been having recurrent seizures. She has history of asthma and ASD repair. She had witnessed seizures at home and then recurrent one while in the ED. She screams out, grabs the left side of her head, has convulsions and bites tongue. She appeared cyanotic and was given 2 mg lorazepam. She has no family history ofseizures and no febrile seizures as a child. She had two seizures within an hour of each other. Sheis to stay overnight. I stated that it would be prudent to admit the patient and levetiracetam is an agent that could be used. 1000 mg load and then 500 mg bid. She should get a routine EEG to evaluate for any persistent epileptiform activity and an MRI brain w/w/o contrast, these can be obtained tomorrow. They will call with any additional questions or concerns. documented in this encounter Plan of Treatment Upcoming Encounters Date Type Department Care Team (Late st Contact Info) Description 12/24/2023 10:00 AM EDT [place] [address] Tereso Mohan MD [facility] [place] [place] [address] 12/24/2023 10:30 AM EDT Appointment XRay at [address] [place] [phone] Shelby Aaron [facility] [place] [address] 12/24/2023 11:30 AM EDT Office Visit [place] [address]-1000 Shelby Aaron [facility] [place] [address] documented as of this encounter Visit Diagnoses Not on filedocumented in this encounter Care Teams Insurance Verification Representative Relationship Specialty Start Date End Date Janak George MD [address] [place] [phone] PCP - General 01/24/10 07/18/17 documented as of this encounter
--- OUTSIDE RECORDS SUMMARY | 2023-11-16 14:16 | XMS_ITS | Clinical Summary ---
Author Organization [facility] Address [address] [place] [address] Care Team Providers Care Crude Tester Name Role Phone Comfort Urban SHANICE Primary Care Provider [phone] Social History Tobacco Use Types Packs/Day Years Used Date Smoking Tobacco: Never Assessed Interpersonal Safety Answer Date Record ed Physically Hurt Never 10/05/2019 Verbally Threaten Not on file 10/05/2019 Sex and Gender Information Value Date Recorded Sex Assigned at Not on file Gender Identity Not on file Sexual Orientation Not on file Plan of Treatment Health Maintenance Due Date Last Done Comments Hepatitis C Screen 1985 Hepatitis B Vaccine (1 of 3 - 19+ 3-dose series) 10/24 COVID-19 Vaccine ( season) 2022 Care Teams Crude Tester Relationship Specialty Start Date End Date Comfort Urban FNP Nidhi [facility] [address] PCP - General 08/05/19
--- OUTSIDE RECORDS SUMMARY | 2023-11-16 14:16 | XMS_ITS | Encounter Summary ---
Author Organization [facility] [place] [address] Care Team Providers Care Drug Coordinator Name Role Phone Comfort Urban SELVIN Primary Care Provider [phone] Encounter Details Date Type Department Care Team (Late st Contact Info) Description 03/17/2018 Orders [place] [phone] Tereso Mohan MD [facility] [place] [address] Seizure Social History Tobacco Use Types Packs/Day Years [...] 10:00 AM EDT Office [place] [phone] Tereso Mohan MD [facility] [place] [address] 12/24/2023 10:30 AM EDT Appointment XRay at [address] [place] [address] Shelby Aaron APRN [facility] [place] [address] 12/24/2023 11:30 AM EDT Office Visit [facility] and Sp[facility] Center at [facility] [place] [address] Shelby Aaron APRN [facility] [place] [address] documented as of this encounter Results * EEG awake, asleep, drowsy, routine (05/05/2018 4:01 PM EST) Narrative Troy Montoya MD - 05/05/2018 4:01 PM EST Troy Montoya MD ? 05/06/2018 ??1:50 PM [facility] Department of Neurology Outpatient EEG Report [...] needed for Pain. ?? No current facility-administered medications for this encounter. ?? METHODS: A 21 channel digitized electroencephalogram was performed in the [facility] Clinical Neurophysiology Laboratory. The 10/20 international system of electrode placement was used and bipolar and referential electrode montages were recorded. ??In addition to EEG the patient was monitored for EKG and lateral/vertical eye movements. Video was recorded during the session. The duration of the recording was 30 minutes. BANKMAN'S REPORT:Performed by: Rico Santos ?? Patient was sleep deprived. Sleep was [...] Charito Mosley M.D Epilepsy Fellow Epilepsy pager [phone] Personal pager [phone] CC: Comfort Urban, SELVIN Simmons MD. __ I reviewed the EEG and I agree with the interpretation as written. Troy Montoya MD Tereso Mohan MD NEUROLOGY ORDERABLES documented in this encounter Visit Diagnoses Diagnosis Seizure Other convulsions Seizure Other convulsions documented in this encounter Care Teams Drug Coordinator Relationship Specialty Start Date End Date Comfort Urban, SELVIN [address] [place] [address] PCP - General Family Medicine 07/19/17 03/11/23 documented as of this encounter
--- OUTSIDE RECORDS SUMMARY | 2023-11-16 14:16 | XMS_ITS | Encounter Summary ---
[place] [address] Care Team Providers Care Steel Rigger Name Role Phone Comfort Urban APRN Primary Care Provider [phone] Reason for Referral * Diagnostic Test (Routine) - Closed Specialty Diagnoses / Procedures Referred By Kristan t Referred To Contact Radiology Diagnoses Seizures Procedures MRI Brain wo Contrast Charito Mosley MBBS [facility] [place] [address] [place] [address] Referral ID Status Reason Start Date Expiration Date V isits Requested Visits Authorized [id number] Closed Specialty Service Requested 05/05/2018 08/03/2018 1 1 Reason for Visit * Consultation (Routine) - Specialty Diagnoses / Procedures Referred By Contjose t Referred To Contact 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 Comfort Urban APRN [facility] [place] [address] [facility] [address] [place] [address] Referral ID Status Reason Start Date Expiration Date V isits Requested Visits Authorized [id number] Consult, Test & Treat Connection [facility] 03/07/2018 03/07/2019 6 6 Encounter Details Date Type Department Care Team (Late st Contact Info) Description 05/05/2018 1:00 PM EST Office Visit Neurology at [facility] [place] [address] Troy Montoya MD [facility] [place] [address] Charito Mosley MBBS [facility] [place] [address] Seizures Social History Tobacco Use Types Packs/Day [...] cm (5' 1) 05/05/2018 12:59 PM EST reported Body Mass Index 39.3 05/05/2018 12:59 PM EST documented in this encounter Progress Notes * Charito Mosley MBBS - 05/05/2018 1:00 PM EST Patient Name: Chief Complaint: Seizures. History of presenting illness: The patient presents alone for this visit. Bessie Machado is a 32 y/o right handed female, referred by Ms. Comfort Urabn APRN for evaluation of seizures and Tremors. [...] than one noted above), confusional spells, staring spells, oral/manual automatisms, strange smells or taste, sensation of anirudh vu, jamais vu impending doom, out of body experiences, no episodes of gastric uprising, piloerection, sweating, nor unexplained episodes of heart raising. She had no myoclonic jerks nor episodes of waking up sore /wetted/with blood in her mouth. Tremors: For the past 1 year patient has been noticing tremors in her extremities and face. She states that it has been constant and progressively getting worse. Nothing makes it better or worse. There is no family history of tremors. She states that it has been mostly resting tremor and can be dist ractible. Current antiepileptic medications: Depakote 500 mg po [...] patient reports having sudden onset of dizziness. No tongue bite nor bladder/bowel incontinence. No shaking episode. Duration: Unclear Frequency: Twice Provoking factors: None Diurnal variation: None Risk Factors for Epilepsy: Born via .No complication after . and had normal development. She did well in school. She is currently not working. There is no history of stroke, meningitis or encephalitis. There were no previous neurosurgical interventions. There is no history of febrile seizures. Had concussion at age of 13. Previous work up: 1. Brain imaging: - MRI brain was done in 2016 was unremarkable per patient. -CT scan head- None 2. EEG: - Routine EEG: Will be done to[place] 05[place]05/2018 at [facility]. 3. Epilepsy Monitoring Unit admissions: - None. 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 Family history: There is no family history of seizures. Mother: Hypertension, Diabetes Daughter: Agnieszka Levy- Chiari malformation s/p neurological surgery and seizures developmentaldelay Current Medications: Current Outpatient Medications: ??? divalproex [...] times daily., Disp: , Rfl: 0 ??? intrauterine device (PARAGARD) 380 square mm IUD, by Intrauterine route Continuous (Device). Expected removal date, Disp: , Rfl: ??? UNABLE TO FIND, Take by mouth as needed. Med Name: CBD oil, Disp: , Rfl: ??? ibuprofen (ADVIL;MOTRIN) 800 mg Tablet, Take 800 mg by mouth every 6 hours as needed for Pain.,Disp: , Rfl: Physical Examination: Most Recent Vitals: [...] to light touch and temperature. Masticatory muscle bulk and strength was normal. Cranial nerve VII: no [...] 500 mg twice daily. We discussed about getting routine EEG and MRI of the brain. If EEG and MRI is normal we will consider tapering off AEDs. If either of the test is abnormal then patient should continue AEDs but will plan on switching Depakote to either Lamictal or Topamax or zonisamide. - Problem II: Tremors: Started 1 year ago. Reports having constant nonrhythmic resting tremors of either arms, legs or head shaking. On exam tremors are distractible . Likely could be the side effectfrom Depakote. PLAN: 1. Continue with Depakote extended [...] Please feel free to contact the office withany questions or concerns. Charito Mosley M.D Epilepsy Fellow Epilepsy pager [phone] Personal pager [phone] Neurology (Staff) Addendum I saw and evaluated [...] 10:00 AM EDT Office Visit Neurology at [place] [phone] Tereso Mohan MD [facility] [address] 12/24/2023 10:30 AM EDT Appointment XRay at [address] [place] [phone] Shelby Aaron APRN [facility] [address] 12/24/2023 11:30 AM EDT Office Visit [facility] [place] [phone] Shelby Aaron APRN [facility] [place] [address] documented as of this encounter Results * MRI Brain wo Contrast (05/10/2018 12:46 PM EST) Anatomical Region Laterality Modality Head Magnetic Resonan ce Impressions 05/11/2018 2:36 PM EDT No acute intracranial process. No etiology identified for the patient's history of seizures and tremors. Thank you for letting us participate in the care of this patient. For questions regarding this report, please contact the number below. ? Narrative 05/11/2018 2:36 PM EDT EXAMINATION: MRI BRAIN WO CONTRAST CLINICAL HISTORY: GENERALIZED CONVULSIONS Normal EEG on 05/05/18. TECHNIQUE: MRI of the brain performed without intravenous contrast administration. Epilepsy seizure protocol. COMPARISON: None FINDINGS: Motion artifact degrades the high resolution 3D REYES and coronal T2 sequences, which limits evaluation of detailed structures. Within that limitation, the hippocampi are symmetric in size and morphology. No evidence of cortical dysplasia. No herman matter heterotopia. There are a couple scattered subcentimeter foci of T2 prolongation in the subcortical white matter of both frontal lobes, which are nonspecific. Trace nonspecific T2 prolongation in the periventricular cerebral white matter. No abnormal restricted diffusion. No evidence of intracranial hemorrhage on the susceptibility weighted images. The ventricles are normal in caliber. Partially empty sella incidentally noted. No abnormal signal in the mastoid air cells. Small mucous retention cyst in the right maxillary sinus. Procedure Note Kimo Davis MD - 05/11/2018 EXAMINATION: MRI BRAIN WO CONTRAST CLINICAL HISTORY: GENERALIZED CONVULSIONS Normal EEG on 05/05/18. TECHNIQUE: MRI of the brain performed without intravenous contrast administration.Epilepsy seizure protocol. COMPARISON: None FINDINGS: Motion artifact degrades the high resolution 3D REYES and coronal G3ypbldhooc, which limits evaluation of detailed structures. Within that limitation,the hippocampi are symmetric in size and morphology. No evidence of cortical dysplasia. No herman matter heterotopia. There are a couple scattered subcentimeter foci of T2 prolongation inthe subcortical white matter of both frontal lobes, which are nonspecific.Trace nonspecific T2 prolongation in the periventricular cerebral white matter.No abnormal restricted diffusion. No evidence of intracranial hemorrhage onthe susceptibility weighted images. The ventricles are normal in caliber.Partially empty sella incidentally noted. No abnormal signal in the mastoid aircells. Small mucous retention cyst in the right maxillary sinus. IMPRESSION No acute intracranial process. No etiology identified for the patient'shistory of seizures and tremors. Thank you for letting us participate in the care of this patient. Forquestions regarding this report, please contact the number below. Troy Montoya MD IMG MRI ORDERABL ES documented in this encounter Visit Diagnoses Diagnosis Seizures Other convulsions Seizures Other convulsions documented in this encounter Care Teams Steel Rigger Relationship Specialty Start Date End Date Comfort Urban APRN [address] [place] [address] PCP - General Family Medicine 07/19/17 03/11/23 documented as of this encounter
--- OUTSIDE RECORDS SUMMARY | 2023-11-16 14:16 | XMS_ITS | Encounter Summary ---
Author Organization [facility] Address [address] [place] [address] Care Team Providers Care Supervisor Meter Shop Name Role Phone Unknown, Provider Primary Care Provider Comfort Urban Primary Care Provider Encounter Details Date Type Department Care Team (Late st Contact Info) Description 08/03/2019 Lab Requisition [facility] Pathology & Laboratory Medicine - [facility] [address], [place] [address] Outr Resulting Lab, Provider Social History Tobacco [...] Procedure Name Priority Date/Time Associated Diagnosis Comments ZZCOVID-19 TEST [facility] LAB PCR Today 08/03/2019 9:08 EDT COVID-19 TESTING Routine 08/03/2019 9:08 EDT documented in this encounter Results * COVID-19 TEST [facility] LAB PCR (08/03/2019 9:08 EDT) Swab ENTIRE NASOPHARYNX / Unknown 08/03/2019 9:08 EDT 08/03/2019 15:48 EDT Provider Outr Resulting Lab MICROBIOLOGY - GENERAL ORDERABLES [facility] [address] [place] [address] * COVID-19 TESTING (08/03/2019 9:08 EDT) COVID-19 rt-PCR Result Negative Negative 08/03/2019 19:53 EDT [facility] Comment: This test has not been FDA cleared or approved. This test has been authorized by FDA under an EUA for use by authorized laboratories. This test has been authorized only for detection of nucleic acid from 2019-nCoV, not for any other viruses or pathogens. This test is only authorized for the duration of the declaration that circumstances exist justifying the authorization of emergency use of in vitro diagnostic tests for detection and/or diagnosis of 2019-nCoV under section 564(b)(1) of Act, 21 U.S.C ?? 360bbb-3(b) (1), unless the authorization is terminated or revoked sooner. Negative results do not preclude 2019-nCoV infection and should not be used as the sole basis for treatment or other patient management decisions. Negative results must be combined with clinical observations, patient history, and epidemiological information. Performed on the Wudya Fusion instrument Performing Lab [place] [facility] Lab 08/03/2019 19:53 EDT [facility] Swab ENTIRE NASOPHARYNX / Unknown 08/03/2019 9:08 EDT 08/03/2019 15:48 EDT Provider Outr Resulting Lab MICROBIOLOGY - GENERAL ORDERABLES [facility] [address] [place] [address] documented in this encounter Visit Diagnoses Not on filedocumented in this encounter Care Teams Supervisor Meter Shop Relationship Specialty Start Date End Date Unknown, Provider, PCP - General 10/22/16 08/04/19 Comfort Urban FNP [facility] [place] [address] PCP - General 08/05/19 documented as of this encounter
--- OUTSIDE RECORDS SUMMARY | 2023-11-16 14:16 | XMS_ITS | Referral Summary ---
Author Organization [facility] Address [address] [place] [address] Care Team Providers Care Industrial Relations Specialist Name Role Phone Comfort Urban SHANICE Primary Care Provider [phone] Social History Tobacco Use Types Packs/Day Years Used Date Smoking Tobacco: Never Assessed Interpersonal Safety Answer Date Record ed Physically Hurt Never 10/05/2019 Verbally Threaten Not on file 10/05/2019 Sex and Gender Information Value Date Recorded Sex Assigned at Not on file Gender Identity Not on file Sexual Orientation Not on file Plan of Treatment Not on file Care Teams Industrial Relations Specialist Relationship Specialty Start Date End Date [place] [address] PCP - General 08/05/19
--- OUTSIDE RECORDS SUMMARY | 2023-11-16 14:16 | XMS_ITS | Encounter Summary ---
Author Organization [facility] Address [address] [place] [address] Care Team Providers Care Public Address System Mechanic Name Role Phone Comfort Urban SHANICE Primary Care Provider [phone] Encounter Details Date Type Department Care Team (Late st Contact Info) Description 01/13/2022 Lab Requisition [facility] Pathology & Laboratory Medicine - [address] [address] Outr Resulting Lab, Provider Social History Tobacco [...] Procedure Name Priority Date/Time Associated Diagnosis Comments T3 FREE Routine 01/12/2022 16:30 EST documented in this encounter Results * (ABNORMAL) T3 FREE (01/12/2022 16:30 EST) T3, Free 5.8(H) 2.8 - 5.3 pg/mL 01/14/2022 18:[address] [facility] Blood VENOUS BLOOD / Unknown 01/12/2022 16:30 EST 01/14/2022 17:15 EST Provider Outr Resulting Lab CHEMISTRY & BLOOD GAS ORDERABLES [facility] [address] [place] [address] documented in this encounter Visit Diagnoses Not on filedocumented in this encounter Care Teams Public Address System Mechanic Relationship Specialty Start Date End Date Comfort Urban F[place] [address] [place] [address] PCP - General 08/05/19 documented as of this encounter
--- OUTSIDE RECORDS SUMMARY | 2023-11-16 14:16 | XMS_ITS | Encounter Summary ---
Author Organization [facility] Address [facility] [place] [address] Care Team Providers Care Electronic Systems Technician Name Role Phone Wily Lilian Hicks APRN Primary Care Provider [phone] Encounter Details Date Type Department Care Team (Late st Contact Info) Description 10/30/2007 Orders Only Obstetrics [place] [phone] Odilon Wilkinson MD [facility] OBSTETRICS & [place] [address] Social History Tobacco Use Types Packs/Day Years Used Date Smoking Tobacco: Never Assessed [facility] Utilities Answer Date Recorded In the past [...] in a senior living (including now)? No 06/11/2023 IPV Inpatient Questions [...] 10:00 AM EDT Office [place] [address] Tereso Mohan MD [facility] [place] [address] 12/24/2023 10:30 AM EDT Appointment XRay at [address] [place] [phone] Shelby Aaron APRN [facility] [place] [address] 12/24/2023 11:30 AM EDT Office Visit [facility] [place] [address] Shelby Aaron APRN [facility] [place] [address] documented as of this encounter Procedures Procedure Name Priority Date/Time Associated Diagnosis Comments SURGICAL PATHOLOGY REPORT Routine 10/30/2007 10:38 AM EDT documented in this encounter Results * Surgical Pathology Report (10/30/2007 10:38 AM EDT) Surgical Pathology Report [id number] ? Location: 5L The signing pathologist has (i) examined the relevant preparation(s) for the specimen(s) and (ii) rendered or confirmed the diagnosis(es). . ?Pathology Surgical Pathology Final Report Clinical Information Specimen Submitted: A - Placenta: Clinical History: Preeclampsia, induction of labor at 36-5/7 weeks. Clinical Diagnosis: Not provided Gross Description Labeled/Fixative: ? Labeled with the patient's name, fresh. Qty/Size/Weight: ?Single, 22.0 x 18.0 x 3.0 cm, 400 g. Tissue Description: ?? Discoid adkins placenta. ?? Membranes: ? [place]-red and semitransparent. ??100% marginal ?insertion. ?? Cord: ?34.0 x 1.3 cm; three vessels; eccentric insertion. ?? Surface: ? Allison-blue and clear. ?? Maternal Surface: ??Intact. CR-0 ?? Parenchyma: ?The specimen is serially sectioned at 0.5-cm to ?1.0-cm intervals. ??Sections show a pink-red, spongy parenchyma with two parenchymal lesions, a 0.6-cm, brush-yellow, gritty lesion and a 1.5-cm, brush- red gritty lesion. Sections/Processing : ??Sections are submitted as follows: ??(1) cord and ?membranes; (2) maternal surface; (3) surface; ?(4) parenchymal lesions. ??(R4) ?aje/SNS Microscopic Description Slides reviewed, microscopic description not recorded. Diagnosis Third trimester placenta, cord and membranes: Negative for chorioamnionitis or funisitis. Essentially negative for signs of accelerated maturation (as seen in PE). Clinically insignificant infarction noted. 11/04/07 KO 11/04/07 Verified by: ? Nadege Storey MD ?Pathologist ?(Electronic Signature) The attending pathologist whose signature appears on this report has reviewed all diagnostic slides and has edited the gross and/or microscopic portion of the report in rendering the final pathologic diagnosis. EMRE PINTO 10/30/2007 10:3 8 AM EDT Odilon Wilkinson MD PATHOLOGY/CYTOLOGY O [facility] EMRE PINTO documented in this encounter Visit Diagnoses Not on filedocumented in this encounter Care Teams Electronic Systems Technician Relationship Specialty Start Date End Date Lilian Julien APRN [facility] [address] PCP - General Family Medicine 03/12/23 documented as of this encounter
--- OUTSIDE RECORDS SUMMARY | 2023-11-16 14:16 | XMS_ITS | Encounter Summary ---
[place] [address] Care Team Providers Care Dredge Pipe Installer Name Role Phone Comfort Urban APRN Primary Care Provider [phone] Encounter Details Date Type Department Care Team (Latest Contact Info) Description 05/05/2018 2:25 PM EST - 05/05/2018 11:59 PM EST Hospital Encounter [place] [address] Seizure Discharge Disposition: Home Social History Tobacco Use [...] as needed. Med Name: CBD oil divalproex (DEPAKOTE) 500 mg Tablet, Delayed Release [...] as of this encounter Procedure Notes * Troy Montoya MD - 05/05/2018 4:01 PM ESTAssociated Order(s): EEG AWAKE, ASLEEP, DROWSY Procedure(s): EEG INTERP AWAKE AND ASLEEP [facility] Department of Neurology Outpatient EEG [...] channel digitized electroencephalogram was performed in the [facility] Clinical Neurophysiology Laboratory. The 10/20 international system of electrode placement was used and bipolar and referential electrode montages were recorded. In addition to EEG the patient was monitored for EKGand lateral/vertical eye movements. Video was recorded during the session. The duration of the recording was 30 minutes. NICU RN'S REPORT: Performed by: Rico Santos Patient was [...] as well as during the activation procedures ofhyperventilation and photic stimulation. CLINICAL CORRELATION: This is a normal EEG. No epileptiform discharges or clinical seizures noted. Charito Mosley M.D Epilepsy Fellow Epilepsy pager [phone] Personal pager [phone] CC: SELVIN Purdy MD. I reviewed the EEG and I agree with the interpretation as written. Troy Montoya MD documented in this encounter Plan of Treatment Upcoming Encounters Date Type Department Care Team (Late st Contact Info) Description 12/24/2023 10:00 AM EDT Office Visit Neurology at [place] [phone] Tereso Mohan MD [facility] [place] [address] 12/24/2023 10:30 AM EDT Appointment XRay at [address] [place] [address] Shelby Aaron, [facility] [place] [address] 12/24/2023 11:30 AM EDT Office Visit [facility] [place] [phone] Shelby Aaron [facility] [place] [address] documented as of this encounter Procedures Procedure Name Priority Date/Time Associated Diagnosis Comments ZEEG AWAKE, ASLEEP, DROWSY Routine 05/05/2018 4:01 PM EST Seizure documented in this encounter Results * EEG awake, asleep, drowsy, routine (05/05/2018 4:01 PM EST) Narrative Troy Montoya MD - 05/05/2018 4:01 PM EST Troy Montoya MD ? 05/06/2018 ??1:50 PM [facility] Department of Neurology Outpatient EEG [...] channel digitized electroencephalogram was performed in the [facility] Clinical Neurophysiology Laboratory. The 10/20 international system of electrode placement was used and bipolar and referential electrode montages were recorded. ??In addition to EEG the patient was monitored for EKG and lateral/vertical eye movements. Video was recorded during the session. The duration of the recording was 30 minutes. NICU RN'S REPORT:Performed by: Rico Santos ?? Patient was [...] Charito Mosley M.D Epilepsy Fellow Epilepsy pager [phone] Personal pager [phone] CC: SELVIN Purdy MD. __ I reviewed the EEG and I agree with the interpretation as written. Troy Montoya MD Tereso Mohan MD NEUROLOGY ORDERABLES documented in this encounter Visit Diagnoses Diagnosis Seizure Other convulsions documented in this encounter Care Teams Dredge Pipe Installer Relationship Specialty Start Date End Date Comfort Urban APRN [address] [place] [address] [address] PCP - General Family Medicine 07/19/17 03/11/23 documented as of this encounter
--- OUTSIDE RECORDS SUMMARY | 2023-11-16 14:16 | XMS_ITS | Encounter Summary ---
Author Organization [facility] [place] [address] Care Team Providers Care Multimedia Teacher Name Role Phone Comfort Urban APRN Primary Care Provider [phone] Encounter Details Date Type Department Care Team (Late st Contact Info) Description 06/11/2018 4:00 PM EDT Office Visit Neurology at [place] [address] Tereso Mohan MD [facility] [place] [address] Charito Mosley MB[place] [address] Seizures Social History Tobacco Use Types Packs/Day [...] kg (208 lb) 06/11/2018 3:57 PM EDT R eported Height 154.9 cm (5' 1) 06/11/2018 3:57 PM EDT R eported Body Mass Index 39.3 06/11/2018 3:57 PM EDT documented in this encounter Progress Notes * Charito Mosley MBBS - 06/11/2018 4:00 PM [...] signs before the episode. She had an MRIbrain which was normal. She states that she never had an EEG done so for. She was started on Cinnve781 mg twice daily. 3 months later Keppra [...] up sore /wetted/with blood in her mouth. ?? Tremors: For the past 1 year patient has been noticing tremors in her extremities and face. She states that it has been constant and progressively getting worse. Nothing makes it better or worse. There is no family history of tremors. She states that it has been mostly resting tremor and can be dist ractible. Interval History: Bessie, denied having any further seizures. She continues to have tremors. She had MRI brain whichwas unremarkable. EEG was also unremarkable. ?? Current antiepileptic medications:??Depakote 500 mg po bid ?? Previous antiepileptic medications:??Keppra (Depression and anxiety). ?? EVENT SEMIOLOGY: Event [...] ?? 2. EEG: ?- Routine EEG:Done at [facility] 05/05/18: Normal study. ?? 3. 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 But thelast 2 episodes sounds more like syncopal episodes and bouts of syncope. On exam no focal neurological deficits were noted. currently on Depakote extended release 500 mg twice daily. EEG and MRI is normal . We discussed doing a 24 hour Holter [...] was advised to take 25mg po daily [id number], then 25 mg po bid x2 weeks, then 50 mg bid [id number], then 100 mg bid and stay on [...] contact the office withany questions or concerns. ?? Charito Mosley M.D Epilepsy Fellow Epilepsy pager [phone] Personal pager [phone] Neurology Attending I saw and evaluated the patient with the neurology team. I have reviewed the resident's history during the visit and I agree with the details as written. My physical examination confirms the resident's findings. The assessment and plan were formulated in discussion with me at the time of the visit and I agree with them as documented. Major issues [...] loss. Tereso Mohan MD [place] [address] Pager #[phone] Email: [email or web address] documented in this encounter Plan of Treatment Upcoming Encounters Date Type Department Care Team (Late st Contact Info) Description 12/24/2023 10:00 AM EDT Office [place] [address] Tereso Mohan MD [facility] [place] [address] 12/24/2023 10:30 AM EDT Appointment XRay at [address] [place] [address] Shelby Aaron, [facility] [place] [address] 12/24/2023 11:30 AM EDT Office Visit [facility] [place] [address] Shelby Aaron, [facility] [address] Pending Results Name Type Priority Associated Diagnoses Date /Time Holter Monitor 24hr Cardiac Services Routine Seizures 06/16/2018 1:22 PM EDT Scheduled Orders Name Type Priority Associated Diagnoses Orde r Schedule Holter Monitor 24hr Cardiac Services Routine Seizures Expected: 06/18/2018, Expires: 12/18/2018 documented as of this encounter Results * EEG INNC. RECORDING AWAKE AND ASLEEP, W. HYPERVENT/PHOTIC STIMU PRFM (08/08/2018 1:32 PM EDT) Narrative Mike Shabazz MD - 08/08/2018 1:32 PM EDT Mike Shabazz MD ? 08/12/2018 ??6:40 AM [facility] Department of Neurology Outpatient EEG Report [...] channel digitized electroencephalogram was performed in the [facility] Clinical Neurophysiology Laboratory. The 10/20 international system of electrode placement was used and bipolar and referential electrode montages were recorded. ??In addition to EEG the patient was monitored for EKG and lateral/vertical eye movements. Video was recorded during the session. The duration of the recording was 25 minutes. SR SOLUTIONS CONSULTANT'S REPORT:Performed by: SR Patient was not sleep deprived. Sleep was not attained. Photic stimulation was performed. Hyperventilation was performed. Effort was was adequate. Movement and other artifact was not significant. Comments: ??None. EEG REPORT: ELECTROENCEPHALOGRAPHER'S REPORT: Background [...] This EEG is normal during the awake ??states as well as during the activation procedures [...] convulsions documented in this encounter Care Teams Multimedia Teacher Relationship Specialty Start Date End Date Comfort Urban APRN [address] [place] [address] PCP - General Family Medicine 07/19/17 03/11/23 documented as of this encounter
--- OUTSIDE RECORDS SUMMARY | 2023-11-16 14:16 | XMS_ITS | Encounter Summary ---
[place] [address] Care Team Providers Care Cyber Defense Analyst Name Role Phone Comfort Urban SELVIN Primary Care Provider [phone] Reason for Referral * Diagnostic Test (Routine) - Closed Specialty Diagnoses / Procedures Referred By Leesaac t Referred To Contact Radiology Diagnoses Seizures Procedures MRI Brain wo Contrast Charito Mosley MBBS [facility] [place] [address] [place] [address] Referral ID Status Reason Start Date Expiration Date V isits Requested Visits Authorized [id number] Closed Specialty Service Requested 05/05/2018 08/03/2018 1 1 Reason for Visit * Diagnostic Test (Routine) - Closed Specialty Diagnoses / Procedures Referred By Contac t Referred To Contact Radiology Diagnoses Seizures Procedures MRI Brain wo Contrast Charito Mosley MBBS [facility] [place] [address] [place] [address] Referral ID Status Reason Start Date Expiration Date V isits Requested Visits Authorized [id number] Closed Specialty Service Requested 05/05/2018 08/03/2018 1 1 Encounter Details Date Type Department Care Team (Late st Contact Info) Description 05/10/2018 10:57 AM EST - 05/10/2018 11:59 PM EST Hospital Encounter MRI at [facility] [address] Troy Montoya MD [facility] [place] [address] Seizures Discharge Disposition: Home Social History Tobacco [...] 10:00 AM EDT Office Visit Neurology at [place] [phone] Tereso Mohan MD [facility] [place] [address] 12/24/2023 10:30 AM EDT Appointment XRay at [address] [place] [phone] Shelby Aaron, [facility] [place] [address] 12/24/2023 11:30 AM EDT Office Visit [place] [address] Shelby Aaron, APPEALS NURSE [facility] [place] [address] documented as of this encounter Procedures Procedure Name Priority Date/Time Associated Diagnosis Comments MRI BRAIN WO CONTRAST Routine 05/10/2018 12:46 PM EST Seizures documented in this encounter Results * MRI Brain wo Contrast (05/10/2018 12:46 PM EST) Anatomical Region Laterality Modality Head Magnetic Resonan ce Impressions 05/11/2018 2:36 PM EDT No acute intracranial process. No etiology identified for the patient's history of seizures and tremors. Thank you for letting us participate in the care of this patient. For questions regarding this report, please contact the number below. ? Electronically signed by: Kimo Davis [facility] ([phone]), at 05/11/2018 2:36 PM Narrative 05/11/2018 2:36 [...] the high resolution 3D REYES and coronal [id number], which limits evaluation of detailed structures. Within [...] convulsions documented in this encounter Care Teams Cyber Defense Analyst Relationship Specialty Start Date End Date Comfort Urban, APPEALS NURSE [address] [place] [address] PCP - General Family Medicine 07/19/17 03/11/23 documented as of this encounter
--- OUTSIDE RECORDS SUMMARY | 2023-11-16 14:16 | XMS_ITS | Encounter Summary ---
[place] [address] Care Team Providers Care Hospice Admitting Clerk Name Role Phone Wily Lilian Hicks APRN Primary Care Provider [phone] Encounter Details Date Type Department Care Team (Late st Contact Info) Description 11/11/2008 [place] [phone] Fabiola Russo MD GASTROENTEROLOGY Social History Tobacco Use Types Packs/Day Years Used Date Smoking Tobacco: Never Assessed [facility] Utilities Answer Date Recorded In the [...] slept in a correction (including now)? No 06/11/2023 IPV Inpatient Questions [...] 10:00 AM EDT [place] [address] Tereso Mohan MD [facility] [place] [address] 12/24/2023 10:30 AM EDT Appointment XRay at [address] [place] [phone] Shelby Aaron APRN [facility] [place] [address] 12/24/2023 11:30 AM EDT Office Visit [place] [address] Shelby Aaron APRN [facility] [place] [address] documented as of this encounter Procedures Procedure Name Priority Date/Time Associated Diagnosis Comments SURGICAL PATHOLOGY REPORT Routine 11/11/2008 2:35 PM EDT documented in this encounter Results * Surgical Pathology Report (11/11/2008 2:35 PM EDT) Surgical Pathology Report [id number] ? Location: 4T The signing pathologist has (i) examined the relevant preparation(s) for the specimen(s) and (ii) rendered or confirmed the diagnosis(es). . ?Pathology Surgical Pathology Final Report Clinical Information Specimen Submitted: A - Random mucosal biopsies: Colon Clinical History: 23 yo with chronic diarrhea Clinical Diagnosis: Diarrhea Gross Description Labeled/Fixativ e: ? Random mucosal biopsies, colon; formalin. Qty/Size/Weight : ?Six, averaging 0.3 x 0.2 x 0.2 cm. Tissue Description: ?? Soft, brush tissues. Sections/Proces sing: ??(T1) ??aje/PPS Microscopic Description Slides reviewed, microscopic description not recorded. Diagnosis Colon, random biopsies: ?? Colonic mucosa with no diagnostic abnormality recognized. CR-0, CR-PX 11/12/08 JLK 11/14/08 Verified by: ? Crow Bolivar MD ?Pathologist ?(Electronic Signature) The attending pathologist whose signature appears on this report has reviewed all diagnostic slides and has edited the gross and/or microscopic portion of the report in rendering the final pathologic diagnosis. [facility] 11/11/2008 2:35 PM EDT L Torres Russo MD PATHOLOGY/CYTOLOGY O [facility] documented in this encounter Visit Diagnoses Not on filedocumented in this encounter Care Teams Hospice Admitting Clerk Relationship Specialty Start Date End Date Lilian Julien, [employer] [place] [address] PCP - General Family Medicine 03/12/23 documented as of this encounter
--- OUTSIDE RECORDS SUMMARY | 2023-11-16 14:16 | XMS_ITS | Encounter Summary ---
Author Organization [facility] Address [address] [place] [address] Care Team Providers Care Financial Systems Analyst Name Role Phone Comfort Urban Primary Care Provider [phone] Encounter Details Date Type Department Care Team (Latest Contact Info) Description 02/14/2022 Lab Requisition [facility] Pathology & Laboratory Medicine - [address] [address] Comfort Urban FNP [address] [place] [place], [place] [id number] Encounter for general adult medical examination without abnormal findings; Encounter for screening for malignant neoplasm of cervix; Encounter for screening for human papillomavirus (HPV) Social History Tobacco Use Types Packs/Day Years [...] Name Priority Date/Time Associated Diagnosis Comments PAP TEST Today 02/13/2022 15:00 EST Encounter for general adult medical examination without abnormal findings Encounter for screening for malignant neoplasm of cervix Encounter for screening for human papillomavirus (HPV) HPV GENOTYPES 16 AND 18/45 Today 02/13/2022 15:00 EST Encounter for general adult medical examination without abnormal findings Encounter for screening for malignant neoplasm of cervix Encounter for screening for human papillomavirus (HPV) HPV DNA DETECTION WITH GENOTYPING, PCR Today 02/13/2022 15:00 EST Encounter for general adult medical examination without abnormal findings Encounter for screening for malignant neoplasm of cervix Encounter for screening for human papillomavirus (HPV) documented in this encounter Results * HPV GENOTYPES 16 AND 18/45 (02/13/2022 15:00 EST) HPV High Risk type 16, PCR Negative Negative 03/01/2022 12:24 EST [facility] HPV18/45 RNA (HPV18/45) Negative Negative 03/01/2022 12:24 EST [facility] Papanicolaou smear specimen (specimen) CERVIX UTERI STRUCTURE / Unknown 02/13/2022 15:00 EST 02/27/2022 10:58 EST Comfort Urban [facility] MICROBIOLOGY - GENER AL ORDERABLES Performing Organization Address City/[facility] Co de Phone Number [facility] [address] [place] [address] * (ABNORMAL) HUMAN PAPILLOMAVIRUS (HPV) DETECTION-HIGH RISK TYPES (02/13/2022 15:00 EST) HPV other High Risk types, PCR Positive( A) Negative 03/01/2022 12:24 EST [facility] Comment:E6 OR E7 mRNA from o ne or more types of HPV types 16,18,31,33,35,39,45,51,52,56,58,59,66, and 68 is detected by carriage feeder mediated amplification. High and intermediate risk HPV types are associated with most squamous intraepithelial lesions and cervical cancers. Papanicolaou smear specimen (specimen) CERVIX UTERI STRUCTURE / Unknown 02/13/2022 15:00 EST 02/27/2022 10:58 EST Comfort [facility] MICROBIOLOGY - GENER AL ORDERABLES Performing Organization Address City/[facility]/ZIP Co de Phone Number [facility] [address] [place] [address] * PAP TEST (02/13/2022 15:00 EST) Specimens A. Cervix and/or Endocervix , ThinPrep Imaging System with Manual Evaluation 03/01/2022 12:24 [facility] Specimen Adequacy Satisfactory for Evaluation - transformation zone component present 03/01/2022 12:24 [facility] General Categorization Negative for intraepithelial lesion or malignancy 03/01/2022 12:24 [facility] Descriptive Diagnosis Reactive cellular changes associated with inflammation present (includes repair). 03/01/2022 12:24 [facility] Attestation By the signature below, the attending physician certifies that they have personally conducted a gross and/or microscopic examination of the described specimens and rendered or confirmed the above diagnosis. 03/01/2022 12:24 [facility] at 1224 Clinical History SEE BELOW 03/01/20 12:24 [facility] HPV The result for the Human Papillomavirus (HPV) Detection-High Risk Types is Positive . E6 OR E7 mRNA from one or more types of HPV types 16,18,31,33,35,39 ,45,51,52,56,58,5 9,66, and 68 is detected by carriage feeder mediated amplification. High and intermediate risk HPV types are associated with most squamous intraepithelial lesions and cervical cancers. Testing was performed on specimen [id number] and was resulted on 02/28/2022 1614 EST by BHAKTI, LAB INSTRUMENT RESULTS IN 03/01/2022 12:24 [facility] Genotyping 16 & 18/45 The results for the HPV Genotypes 16 and 18/45 are Negative for the HPV16 RNA and Negative for the HPV18/45 RNA (HPV18/45). Testing was performed on specimen [id number] and was resulted on 03/01/2022 1224 EST by BHAKTI, LAB INSTRUMENT RESULTS IN 03/01/2022 12:24 [facility] Performing Lab [facility] 03/01/2022 12:24 [facility] Scanned Images 03/01/2022 12:24 [facility] Papanicolaou smear specimen (specimen) CERVIX UTERI STRUCTURE / Unknown 02/13/2022 15:00 EST 02/14/2022 14:19 EST Comfort PRASAD PATHOLOGY ORDERABLES [facility] [address] [place] [address] documented in this encounter Visit Diagnoses Diagnosis Encounter for general adult medical examination without abnormal findings Unspecified general medical examination Encounter for screening for malignant neoplasm of cervix Screening for malignant neoplasm of the cervix Encounter for screening for human papillomavirus (HPV) Special screening examination for human papillomavirus (HPV) documented in this encounter Care Teams Financial Systems Analyst Relationship Specialty Start Date End Date Comfort [place] [address] PCP - General 08/05/19 documented as of this encounter
--- OUTSIDE RECORDS SUMMARY | 2023-11-16 14:16 | XMS_ITS | Encounter Summary ---
Author Organization [facility] [place] [address] Care Team Providers Care Social Services Manager Name Role Phone Comfort Urban SELVIN Primary Care Provider [phone] Encounter Details Date Type Department Care Team (Late st Contact Info) Description 05/05/2018 [place] [address] Mae Lugo Social History Tobacco Use Types Packs/Day Years [...] 10:00 AM EDT [place] [address] Tereso Mohan MD [facility] [place] [address] 12/24/2023 10:30 AM EDT Appointment XRay at [address] [place] [phone] Shelby Aaron APRN [facility] PAIN [place] [address] 12/24/2023 11:30 AM EDT Office Visit [place] [address] Shelby Aaron APRN [facility] [place] [address] documented as of this encounter Visit Diagnoses Not on filedocumented in this encounter Care Teams Social Services Manager Relationship Specialty Start Date End Date Comfort Urban APRN [address] [place] [address] PCP - General Family Medicine 07/19/17 03/11/23 documented as of this encounter
--- OUTSIDE RECORDS SUMMARY | 2023-11-16 14:16 | XMS_ITS | Encounter Summary ---
Author Organization [place] [id number] Care Team Providers Care Cvt Tech Name Role Phone Janak George MD Primary Care Provider [phone] Reason for Visit * Reason Comments Atrial Septal Defect Encounter Details Date Type Department Care Team (Late st Contact Info) Description 07/23/2012 9:20 AM EDT Office Visit [place] [address] Pedro Booth MD [facility] CARDIOTHORACIC [place] [address] ASD (atrial septal defect) (Primary Dx) Discharge Disposition: Home Social History Tobacco Use [...] documented in this encounter Progress Notes * Pedro Booth MD - 08/23/2012 2:21 PM EDT Cardiac Surgery Clinic History of Present Illness: Briefly, Bessie Levy is a 26-year-old female referred by Dr. 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 She is referred to our clinic since during a recent surveillance/follow up TTE performed at [place], a small left to right shunt was incidentally noted. She has no symptoms. Her previous TTE was 5 years ago and it is unclear whether this was present on her previous study. The patient is asymptomatic. Specifically, she denies dyspnea, shortness of breath, lower extremityedema, orthopnea, and PND. She denies palpitations. She [...] 2 diabetes in the family, hypertension, and mother has hypertension. She has a daughter who has a Chiari malformation status post neurological surgery and some developmental delay. Social History: She is a nonsmoker and nondrinker. She is with a and two children and lives outside of [place]. 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 Physical Exam: General: Pleasant, slightly obese 26-year-old female in no acute distress. Vitals: Filed Vitals: 07/23/12 0911 BP: 142/92 Pulse: 76 Height: 154.9 cm (5' 1) Weight: 78.926 kg (174 lb) SpO2: 98% HEENT: NC/AT. PERRL. Neck: Supple. Trachea midline. No elevation of jugular venous pressure. Chest: Clear to auscultation bilaterally. She has a well-healed sternotomy incision and her sternumis stable. Chest: Clear to auscultation bilaterally. There [...] available from July 01, 2012, performed at [facility]. I have reviewed this with Dr. Chang. This shows only an extremely small inter- atrial shunt with left->right flow. The RV has normal function and RV size is within the upper range of normal. There is inadequate TR to estimate PA systolic pressures, and there is no right atrial enlargement. The left atrium is normal in size, the LVEF is normal (EF=60%). There is no significant valvular disease. The estimated right atrial pressure was 3 mmHg. We also reviewed a second set of transthoracic echo images from [facility], which was a bubble study showing no evidence of right to left atrial shunt at rest, although it was unclear whether a Valsalva maneuver was performed. 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 Review of her [facility] [place] TTE shows no evidence of right sided cardiac chamber enlargement or pulmonary hypertension and her bubble study isunrevealing for pathology. There is certainly no indication for any intervention at present, nor any pressing need for right heart catheterization. I recommend watchful waiting at this point. Dr. Chang has suggested a transesophageal echo with Valsalva to further evaluate the intra-atrial septum, but if a valsalva was performed with the completed bubble study, I would consider [...] 10:00 AM EDT [place] [address] Tereso Mohan MD [facility] [place] [address] 12/24/2023 10:30 AM EDT Appointment XRay at [address] [place] [address] Shelby Aaron [facility] [place] [address] 12/24/2023 11:30 AM EDT Office Visit [place] [address] Shelby Aaron [facility] [place] [address] documented as of this encounter Visit Diagnoses Diagnosis ASD (atrial septal defect)- Primary Ostium secundum type atrial septal defect documented in this encounter Care Teams Cvt Tech Relationship Specialty Start Date End Date Janak George MD [address] [place] [address] PCP - General 01/24/10 07/18/17 documented as of this encounter
--- OUTSIDE RECORDS SUMMARY | 2023-11-16 14:16 | XMS_ITS | Encounter Summary ---
Author Organization [facility] [place] [address] Care Team Providers Care Pricing/Signage Team Member Name Role Phone Janak George MD Primary Care Provider [phone] Encounter Details Date Type Department Care Team (Late st Contact Info) Description 07/23/2012 [place] [phone] Unknown None Social History Tobacco Use Types Packs/Day [...] 10:00 AM EDT [place] [phone] Tereso Mohan MD [facility] [place] [place] [address] 12/24/2023 10:30 AM EDT Appointment XRay at [address] [place] [phone] Shelby Aaron APRN [facility] [place] [address] 12/24/2023 11:30 AM EDT Office Visit [facility] [place] [address] Shelby Aaron APRN [facility] [place] [address] documented as of this encounter Procedures Procedure Name Priority Date/Time Associated Diagnosis Comments ECHOCARDIOGRAM TRANSTHORACIC Routine 07/23/2012 ECHOCARDIOGRAM TRANSTHORACIC Routine 07/23/2012 documented in this encounter Results * Echo Transthoracic (Complete) (07/23/2012) Anatomical Region Laterality Modality Other 07/23/2012 Narrative 07/23/2012 11:50 AM EDT Amended Report Procedure: ? Transthoracic Echocardiogram Patient: ? JCARLOS HIGH ? (Age): () ? Med Rec#: ?[id number] ? Sex: ?O ? Site Loc: ? Ht / Wt: ??(cm)/(kg) ? Pt. Loc: ?BSA: ? Study Date: ?07/22/2012 ? Pt. Type: Tape: ? Diagnosis:CPT Code(s): Indication(s):Rhythm: SUMMARY: 1. Interpretation of TTE performed 07/01/12 in [place]. 2. Limited follow-up study. ??See interpretation of full study performed 07/01/12. 3. With administration of agitated saline, there is no evidence of tzdzo-ex-gxkz interatrial shunt at rest. ??Unable to determine whether Valsalva maneuver/release was performed. ?? 4. Additional transthoracic imaging with Valsalva and / or RAJESH may be helpful in further evaluating the interatrial septum if clinically indicated. ?? This report has been electronically signed by: Ruben Chang. ? 07/23/2012 12:01:46 Images reviewed and interpretation verified [facility] Cardiac Ultrasound Laboratory Procedure Note Ruben Chang MD - 07/23/2012 Amended Report Procedure: Transthoracic Echocardiogram Patient: JCARLOS GARCIAS(Age): () Med Rec#: [id number] Sex: O Site Loc: Ht / Wt: (cm)/(kg) Pt. Loc: BSA: Study Date: 07/22/2012 Pt. Type: Tape: Diagnosis:CPT Code(s): Indication(s):Rhythm: SUMMARY: 1. Interpretation of TTE performed 07/01/12 in [place]. 2. Limited follow-up study. See interpretation of full study performed 07/01/12. 3. With administration of agitated saline, there is no evidence of pmqnx-ry-oqjl interatrial shunt at rest. Unable to determine whether Valsalva maneuver/release was performed. 4. Additional transthoracic imaging with Valsalva and / or RAJESH may be helpful in further evaluating the interatrial septum if clinically indicated. This report has been electronically signed by: Ruben Chang 07/23/2012 12:01:46 Images reviewed and interpretation verified [facility] Cardiac Ultrasound Laboratory Unknown ECHO ORDERABLES * Echo Transthoracic (Complete) (07/23/2012) Anatomical Region Laterality Modality Other 07/23/2012 Narrative 07/23/2012 11:40 AM EDT Amended Report Procedure: ? Transthoracic Echocardiogram Patient: ? JCARLOS HIGH ? (Age): () ? Med Rec#: ?[id number] ? Sex: ?O ? Site Loc: ? Ht / Wt: ??(cm)/(kg) ? Pt. Loc: ?BSA: ? Study Date: ?07/01/2012 ? Pt. Type: Tape: ? Diagnosis:CPT Code(s): Indication(s):Rhythm: SUMMARY: 1. Interpretation of TTE performed 07/01/12 in [place]. ?? 2. Status post surgical ASD repair. ??There is color Doppler evidence of a small residual interatrial shunt (appears [id number]). ? 3. Left ventricular chamber size, wall thickness, global and segmental systolic function are within normal limits. Ejection fraction is estimated to be 60%. 4. The right ventricle is upper normal in size. ??Right ventricular global systolic function is normal. ??Pulmonary artery hypertension could not be assessed due to inadequate tricuspid regurgitation jet. 5. The atria measuere normal in size. 6. There are no significant valvular findings. ?? 7. See remainder of report for additional findings. FINDINGS: Left Ventricle ?Left ventricular chamber size, wall thickness, global and segmental systolic function are within normal limits. Ejection fraction is estimated to be 60%. ?Post-cardiotomy septal wall motion is present. Left Atrium ?The left atrium is normal in size. ?Septal defect is demonstrated by color Doppler. Right Ventricle ?Right ventricular global systolic function is normal. ?Pulmonary artery hypertension could not be assessed due to inadequate tricuspid regurgitation jet. ?The estimated right atrial pressure is 3 mmHg. Right Atrium ?The right atrium is normal in size. Aortic Valve ?The aortic valve is not well visualized. ?The aortic valve is probably tricuspid. ?There is no evidence of aortic valve thickening. ?Systolic excursion of the aortic valve is normal. ?There is no evidence of aortic regurgitation. Mitral Valve ?The mitral valve leaflets appear normal. ?There is trace mitral regurgitation present. Tricuspid Valve ?The tricuspid valve leaflets are morphologically normal. ?There is trace tricuspid regurgitation present. Pulmonic Valve ?The pulmonic valve is not well visualized. ?There is trace pulmonic regurgitation present. Pericardium ?There is no pericardial effusion. Aorta ?The aortic root is normal in size. ?The ascending aorta is normal in size. Venous ?The inferior vena cava appears normal in size. ?There is a greater than 50% respiratory change in the inferior vena cava dimension. Misc ?See remainder of report for additional findings. Chambers ?Value ?Units (Range) ? LV [...] ?mmHg ? This report has been electronically signed by: Ruben Chang. ? 07/23/2012 11:44:46 Images reviewed and interpretation verified [facility] Cardiac Ultrasound Laboratory Procedure Note Ruben Chang MD - 07/23/2012 Amended Report Procedure: Transthoracic Echocardiogram Patient: JCARLOS GARCIAS(Age): () Med Rec#: [id number] Sex: O Site Loc: Ht / Wt: (cm)/(kg) Pt. Loc: BSA: Study Date: 07/01/2012 Pt. Type: Tape: Diagnosis:CPT Code(s): Indication(s):Rhythm: SUMMARY: 1. Interpretation of TTE performed 07/01/12 in [place]. 2. Status post surgical ASD repair. There is color Doppler evidence of a small residual interatrial shunt (appears [id number]). 3. Left ventricular chamber size, wall thickness, global and segmental systolic function are within normal limits. Ejection fraction is estimated to be 60%. 4. The right ventricle is upper normal in size. Right ventricular global systolic function is normal. Pulmonary artery hypertension could not be assessed due to inadequate tricuspid regurgitation jet. 5. The atria measuere normal in size. 6. There are no significant valvular findings. 7. See remainder of report for additional findings. FINDINGS: Left Ventricle Left ventricular chamber size, wall thickness, global and segmental systolic function are within normal limits. Ejection fraction is estimated to be 60%. Post-cardiotomy septal wall motion is present. Left Atrium The left atrium is normal in size. Septal defect is demonstrated by color Doppler. Right Ventricle Right ventricular global systolic function is normal. Pulmonary artery hypertension could not be assessed due to inadequate tricuspid regurgitation jet. The estimated right atrial pressure is 3 mmHg. Right Atrium The right atrium is normal in size. Aortic Valve The aortic valve is not well visualized. The aortic valve is probably tricuspid. There is no evidence of aortic valve thickening. Systolic excursion of the aortic valve is normal. There is no evidence of aortic regurgitation. Mitral Valve The mitral valve leaflets appear normal. There is trace mitral regurgitation present. Tricuspid Valve The tricuspid valve leaflets are morphologically normal. There is trace tricuspid regurgitation present. Pulmonic Valve The pulmonic valve is not well visualized. There is trace pulmonic regurgitation present. Pericardium There is no pericardial effusion. Aorta The aortic root is normal in size. The ascending aorta is normal in size. Venous The inferior vena cava appears normal in size. There is a greater than 50% [...] 3 mmHg This report has been electronically signed by: Ruben Chang 07/23/2012 11:44:46 Images reviewed and interpretation verified [facility] Cardiac Ultrasound Laboratory Unknown ECHO ORDERABLES documented in this encounter Visit Diagnoses Not on filedocumented in this encounter Care Teams Pricing/Signage Team Member Relationship Specialty Start Date End Date Janak George MD [facility] [address] [place] [phone] PCP - General 01/24/10 07/18/17 documented as of this encounter
--- OUTSIDE RECORDS SUMMARY | 2023-11-16 14:16 | XMS_ITS | Encounter Summary ---
Author Organization [facility] Address [address] [place] [address] Care Team Providers Care Wood Room Supervisor Name Role Phone Comfort Urban SHANICE Primary Care Provider [phone] Encounter Details Date Type Department Care Team (Latest Contact Info) Description 04/26/2023 Lab Requisition [facility] Pathology & Laboratory Medicine - [facility] [address] [place] [address] Lilian Julien FNP [address] [facility] [address] [place] [address] Encounter for screening for malignant neoplasm of cervix; Encounter for screening for human papillomavirus (HPV); Encounter for general adult medical examination without abnormal findings Social History Tobacco Use Types Packs/Day Years [...] Date/Time Associated Diagnosis Comments PAP TEST Today 04/24/2023 13:30 EST Encounter for screening for human papillomavirus (HPV) Encounter for general adult medical examination without abnormal findings HPV GENOTYPES 16 AND 18/45 Today 04/24/2023 13:30 EST Encounter for screening for human papillomavirus (HPV) Encounter for general adult medical examination without abnormal findings HPV DNA DETECTION WITH GENOTYPING, PCR Today 04/24/2023 13:30 EST Encounter for screening for human papillomavirus (HPV) Encounter for general adult medical examination without abnormal findings documented in this encounter Results * HPV GENOTYPES 16 AND 18/45 (04/24/2023 13:30 EST) HPV High Risk type 16, PCR Negative Negative 05/09/2023 16:45 EST [facility] HPV18/45 RNA (HPV18/45) Negative Negative 05/09/2023 16:45 EST [facility] Pap Test CERVIX UTERI STRUCTURE / Unknown 04/24/2023 13:30 EST 05/06/2023 9:30 EST Lilian RIOJASP MICROBIOLOGY - GENER AL ORDERABLES Performing Organization Address [facility] Co de Phone Number [facility] [address] [place] [address] * (ABNORMAL) HUMAN PAPILLOMAVIRUS (HPV) DETECTION-HIGH RISK TYPES (04/24/2023 13:30 EST) HPV other High Risk types, PCR Positive( A) Negative 05/09/2023 21:36 EST [facility] Comment:E6 OR E7 mRNA from o ne or more types of HPV types 16,18,31,33,35,39,45,51,52,56,58,59,66, and 68 is detected by petroleum engineering professor mediated amplification. High and intermediate risk HPV types are associated with most squamous intraepithelial lesions and cervical cancers. Pap Test CERVIX UTERI STRUCTURE / Unknown 04/24/2023 13:30 EST 05/06/2023 9:30 EST Lilian PRASAD MICROBIOLOGY - GENER AL ORDERABLES Performing Organization Address City/[facility]/ZIP Co de Phone Number [facility] [address] [place] [address] * PAP TEST (04/24/2023 13:30 EST) Specimens A. Cervix and/or Endocervix , ThinPrep Imaging System with Manual Evaluation 05/09/2023 21:36 [facility] Specimen Adequacy Satisfactory for Evaluation - transformation zone component absent 05/09/2023 21:36 [facility] General Categorization Epithelial Cell Abnormality 05/09/2023 21:36 [facility] Descriptive Diagnosis Squamous Cell Abnormality - Atypical squamous cells, undetermined significance (ASC-US). 05/09/2023 21:36 [facility] Educational Comments [facility] recommends following the ASCCP's management guidelines which may be found at www.asccp.org 05/09/2023 21:36 [facility] Attestation By the signature below, the attending physician certifies that they have personally conducted a gross and/or microscopic examination of the described specimens and rendered or confirmed the above diagnosis. 05/09/2023 21:36 [facility] at 2136 Clinical History SEE BELOW 05/09/19 21:36 [facility] HPV The result for the Human Papillomavirus (HPV) Detection-High Risk Types is Positive . E6 OR E7 mRNA from one or more types of HPV types 16,18,31,33,35,39 ,45,51,52,56,58,5 9,66, and 68 is detected by petroleum engineering professor mediated amplification. High and intermediate risk HPV types are associated with most squamous intraepithelial lesions and cervical cancers. Testing was performed on specimen [id number] and was resulted on 05/07/2023 1403 EST by BHAKTI, LAB INSTRUMENT RESULTS IN 05/09/2023 21:36 [facility] Genotyping 16 & 18/45 The results for the HPV Genotypes 16 and 18/45 are Negative for the HPV16 RNA and Negative for the HPV18/45 RNA (HPV18/45). Testing was performed on specimen [id number] and was resulted on 05/09/2023 1645 EST by BHAKTI, LAB INSTRUMENT RESULTS IN 05/09/2023 21:36 [facility] Performing Lab [facility] 05/09/2023 21:36 [facility] Scanned Images 05/09/2023 21:36 [facility] Pap Test CERVIX UTERI STRUCTURE / Unknown 04/24/2023 13:30 EST 04/26/2023 12:53 EST Lilian PRASAD PATHOLOGY ORDERABLES [facility] [address], [place] [address] documented in this encounter Visit Diagnoses Diagnosis Encounter for screening for malignant neoplasm of cervix Screening for malignant neoplasm of the cervix Encounter for screening for human papillomavirus (HPV) Special screening examination for human papillomavirus (HPV) Encounter for general adult medical examination without abnormal findings Unspecified general medical examination documented in this encounter Care Teams Wood Room Supervisor Relationship Specialty Start Date End Date Comfort Urban FNP [address] [place] [address] PCP - General 08/05/19 documented as of this encounter
== END 2023-11-16 14:07 | disposition home or self-care (01) ==
LOC: LBN 14:06
PROVIDERS: PCP Nurse Practitioner Family; Visit Provider Nurse Practitioner Family
DX: J02.9 Acute pharyngitis, unspecified (principal); R09.81 Nasal congestion; J03.90 Acute tonsillitis, unspecified
CPT/HCPCS: 87077; 87070

== ENCOUNTER 2024-01-06 22:39 | Emergency (ER) | payer MEDICAID, SELFPAY ==
[2024-01-06] VITALS (15 sets, daily range): BP systolic 113–164; BP diastolic 78–124; PULSE 59–71; RESP 14–27; TEMP 36.6; O2SAT 94–98
--- NOTE | 2024-01-06 22:30 | RT.EKG_ITS ---
APPROVED REPORT Exam: Resting ECG Reason for Exam: chest pain Patient Location: E HR:60 bpm ECG Measurements Heart Rate 60 AXIS NC 165 P -14 QRSd 90 QRS 34 QT 419 T 46 QTc 420 Conclusion Sinus rhythm...normal P axis, V-rate 60- [address] segment or T wave abnormalities to suggest occlusive [place]
--- NOTE | 2024-01-06 22:45 | DI.RAD_ITS ---
Exam(s) XR CHEST 2V PA LATERAL EXAM: XR CHEST 2V PA LATERAL CLINICAL HISTORY: short of breath TECHNIQUE: 2D digital imaging was performed of the chest. Two images were obtained. PA and lateral views were obtained. COMPARISON: CR XR CHEST 2V PA LATERAL from 10/19/2021 CR,XR XR CHEST 1V IN DI DEPT from 11/12/2021 FINDINGS: MEDIASTINUM: Normal. HEART: Normal. PULMONARY VASCULATURE: Normal. LUNGS: Clear. PLEURAL SPACE: No pleural effusion or pneumothorax. BONE:Within normal limits for the patient's age. Sternal wires are in place. Postsurgical changes a re seen in the lower cervical spine. OTHER FINDINGS:Normal. IMPRESSION: No acute pulmonary findings. DATA REPOSITORY: RADIATION DOSE DELIVERED:
--- NOTE | 2024-01-06 22:49 | ED.GENADUL_ITS ---
Discharge Plan Disposition Patient Disposition: Home Condition: Good Discharge Details Clinical Impression: Anxiety attack, Chest pain, Shortness of breath Primary Care Provider: Lilian Julien ED Provider: Brea Do Home Meds and New Rx's Prescriptions: Continued cbd oil 0.75 ml PO BID Patient Comments: 3/4 dropper morning and night propranolol 10 mg tablet 10 mg PO PRN Patient Comments: TAKE ONE TABLET BY MOUTH TWICE A DAY NEEDED FOR PANIC ATTACK, USE SPARINGLY cholecalciferol (vitamin D3) 50 mcg (2,000 unit) capsule 2,000 unit PO DAILY Patient Comments: 1 capsule by mouth once a day After 8 weeks of D50,000U, take 1 cap of 2,000U daily clobazam 10 mg tablet 10 mg PO DAILY Patient Comments: 06/07/23-10mg am, 20mg at night albuterol sulfate 90 mcg/actuation aerosol powdr breath activated 1 inh IH Q4H PRN (Reason: shortness of breath or wheezing) 14 Days Qty: 1 0RF omeprazole 40 mg capsule,delayed release(DR/EC) 40 mg PO DAILY Patient Comments: TAKE ONE CAPSULE BY MOUTH EVERY DAY ONE HOUR PRIOR TO BED cholecalciferol (vitamin D3) [Vitamin D3] 25 mcg (1,000 unit) Capsule 1,000 unit PO DAILY aspirin 81 mg tablet,chewable 81 mg PO DAILY Patient Comments: Take 1 tablet by mouth once a day gabapentin 300 mg capsule 300 mg PO BID Patient Comments: TAKE ONE CAPSULE BY MOUTH TWICE A DAY lisinopril 10 mg tablet 10 mg PO BID Patient Comments: TAKE ONE TABLET BY MOUTH EVERY DAY magnesium oxide 250 mg magnesium tablet 250 mg PO BID Patient Comments: TAKE ONE TABLET BY MOUTH TWICE A DAY riboflavin (vitamin B2) [Vitamin B-2] 100 mg tablet 100 mg PO DAILY Patient Comments: TAKE TWO TABLETS BY MOUTH TWICE A DAY Discontinued naproxen 500 mg tablet 500 mg PO DAILY Patient Comments: TAKE ONE TABLET BY MOUTH TWICE A DAY NEEDED Discharge Instructions Instructions: Chest Pain, Adult ED, Panic Attack ED Additional Instructions: Call your primary care doctor today to schedule an appointment for within the next 72 hours to followup on your visit here. Return to the emergency department for new or worsening symptoms including if your chest pain returns, you have difficulty breathing, feel like you are going to pass out, or if you have any other concerns. Referrals: Wily,Lilian L [Primary Care Provider] - HPI General Mode of arrival: ambulatory . Date/Time Provider Initiated Documentation: 01/06/24 22:40 . Limitations to Documentation: no limitations . Information obtained by: patient . HPI Narrative: 38yo F with hx HTN, seizures, asthma, repaired atrial-septal defect, anxiety with panic attacks, presenting with chest pain and shortness of breath that she states feels like prior panic attacks. Started around 7pm after arguing with spouse; has tried propranolol and melatonin ant home without improvement, as well as her home albuterol. Pain is dull, burning, and substernal; no alleviating or aggravating factors. Not pleuritic. She is otherwise in her usual state of health with no fevers, chills, rash, nausea, vomiting, abdominal pain, numbness, weakness, or other concerns. Related Data Home Medications ?Medication ?Instructions ?Recorded ?Confirmed cbd oil 0.75 ml PO BID 05/29/18 01/06/24 cholecalciferol (vitamin D3) 25 1,000 unit PO DAILY 10/09/21 01/06/24 mcg (1,000 unit) capsule (Vitamin D3) albuterol sulfate 90 mcg/actuation 1 inh inhalation Q4H PRN shortness 10/19/21 01/06/24 breath activated powder inhaler of breath or wheezing 2 weeks #1 ea aspirin 81 mg chewable tablet 81 mg PO DAILY 12/28/22 01/06/24 gabapentin 300 mg capsule 300 mg PO BID 12/28/22 01/06/24 lisinopril 10 mg tablet 10 mg PO BID 12/28/22 01/06/24 magnesium oxide 250 mg PO BID 12/28/22 01/06/24 riboflavin (vitamin B2) 100 mg 100 mg PO DAILY 12/28/22 01/06/24 tablet (Vitamin B-2) cholecalciferol (vitamin D3) 50 2,000 unit PO DAILY 02/03/23 01/06/24 mcg (2,000 unit) capsule propranolol 10 mg tablet 10 mg PO PRN 02/03/23 01/06/24 clobazam 10 mg tablet 10 mg PO DAILY 06/07/23 01/06/24 omeprazole 40 mg capsule,delayed 40 mg PO DAILY 01/06/24 01/06/24 release Previous Rx's ?Medication ?Instructions ?Recorded albuterol sulfate 90 mcg/actuation 1 inh inhalation Q4H PRN shortness 10/19/21 breath activated powder inhaler of breath or wheezing 2 weeks #1 ea Allergies Allergy/AdvReac Type Severity Reaction Status Date / Time divalproex sodium (From AdvReac Mild Other (See Unverified 11/16/23 12:43 Depakote) Comment) General Stated Complaint: Chest Pain GM: 3 Review of Systems Narrative: see HPI Exam Narrative Exam Narrative: General: Alert, well appearing, well nourished, anxious Head: Normocephalic, atraumatic Neck: Trachea midline, ?Neck supple. ENT: ?MMM.? Cardiac: ?RRR, no murmurs appreciated Resp: No respiratory distress. CTAB. Abd: ?Soft, non-distended, nontender : ?No suprapubic tenderness. Extremities: ?No deformities.? No peripheral edema. Neurologic: GCS 15. ? Moves all extremities freely against gravity Course Vital Signs Vital signs: Vital Signs Temperature 36.6 C 01/06/24 22:42 Pulse 71 01/06/24 22:42 Respiratory Rate 16 01/06/24 22:42 Blood Pressure 164/124 H 01/06/24 22:42 Pulse Oximetry 98 01/06/24 22:42 Temperature 36.6 C 01/06/24 22:42 Pulse 71 01/06/24 22:42 Respiratory Rate 16 01/06/24 22:45 Respiratory Effort Normal 01/06/24 22:45 Respiratory Depth Normal 01/06/24 22:45 Respiratory Pattern Normal 01/06/24 22:45 Blood Pressure 164/124 H 01/06/24 22:42 Pulse Oximetry 98 01/06/24 22:42 Oxygen Delivery Method Room Air 01/06/24 22:42 Oxygen Flow Rate 0 01/06/24 22:42 Pain Level 7 01/06/24 22:42 Medical Decision Making 38yo F with hx HTN, seizures, asthma, repaired atrial-septal defect, anxiety with panic attacks, presenting with chest pain and shortness of breath that she states feels like prior panic attacks. Hypertensive on arrival, vital signs otherwise reassuring. Anxious on exam, lungs CTAB with no respiratory distress. No suggestive of asthma exacerbation. No epigastric tenderness to suggest pancreatitis. EKG NSR, appropriate intervals, no ST segment or T wave abnormalities to suggest occlusive [place] (some baseline wander V3-V6). Not consistent with Wellen's or Brugada. PERC negative; would not pursue pulmonary embolism with dimer/CT scan. Given that she states feels like her panic attacks, will treat presumptively with PO ativan while awaiting results of workup for other life threatening causes. CXR independently reviewed; no focal pneumonia or pneumothorax on my view, agree with radiology read below. Labs reviewed as below, CBC reassuring with no anemia, CMP with no significant abnormalities, Mg normal, HS troponin 4. HEART score 2 for RF, low risk, and troponin negative in the setting of ~4 hours of constant chest pain; would not further pursue ACS/trend troponin. On reassessment patient reports symptoms have resolved after ativan. Normotensive. Requests discharge home which is reasonable. Advised to followup [facility] PCP. Discharge instructions and return precautions were reviewed with patient who verbalized understanding. All questions were answered and she is in full agreement with the plan. Imaging Data Radiologic Study: Imaging: X-Ray Radiologist's impression: IMPRESSION: Normal chest x-ray. Lab Data Lab results reviewed: Yes I reviewed the patient's lab results. Labs: Laboratory Tests Range/Units 01/06/24 01/06/24 22:53 23:47 WBC (4.4-10.8) 10^3/uL 11.80 H RBC (3.93-5.22) 10^6/uL 4.72 Hgb (11.2-15.7) g/dL 14.3 Hct (36.0-46.0) % 40.2 MCV (80-95) fL 85 MCH (27.0-33.0) pg 30.3 MCHC (32.0-36.0) % 35.6 RDW (11.7-14.6) % 11.8 Plt Count (130-400) 10^3/uL 337 MPV (8.0-11.0) fL 8.5 Immature Gran % % 0.6 Neutrophils % % 53.8 Lymphocytes % % 32.3 Monocytes % % 9.4 Eosinophils % % 3.2 Basophils % % 0.7 Nucleated RBC % (0.0-0.3) % 0.0 Absolute Neutrophils (1.2-6.7) 10^3/uL 6.35 Absolute Lymphocytes (1.2-3.4) 10^3/uL 3.81 H Absolute Monocytes (0.1-0.8) 10^3/uL 1.11 H Absolute Eosinophils (0.0-0.7) 10^3/uL 0.38 Absolute Basophils (0.0-0.2) 10^3/uL 0.08 Sodium (136-145) mmol/L 138 Potassium (3.5-5.1) mmol/L 3.5 Chloride (98-107) mmol/L 104 Carbon Dioxide (21.0-32.0) mmol/L 24.2 Anion Gap (3-11) mmol/L 9.8 BUN (7-18) mg/dL 15 Creatinine (0.55-1.02) mg/dL 0.8 Est GFR (CKD-EPI 2020) (mL/min/1.73m2) 95.46 Glucose (74-106) mg/dL 102 Calcium (8.5-10.1) mg/dL 9.4 Magnesium (1.8-2.4) mg/dL 2.0 Total Bilirubin (0.2-1.0) mg/dL 0.25 AST (15-37) U/L 13 L ALT (14-59) U/L 33 Alkaline Phosphatase (46-116) U/L 49 Troponin I (<or=51) ng/L 4 Cancelled Total Protein (6.4-8.2) g/dL 7.7 Albumin (3.4-5.0) g/dL 3.8 Quality:SDOH Health Related Social Needs: Health related social needs housing instability, house d, with risk of homelessness(Z59.811) PFSH All Active Problems (Updated 01/06/24 @ 23:33 by Brea Do MD) Shortness of breath (Acute) Chest pain (Acute) Anxiety attack (Acute) Sciatica (Acute) 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 Fibromyalgia (Chronic) Treated with marijuana. Patient does not have a medical marijuana card Asthma (Chronic) Hyperlipidemia (Chronic) Migraine headache (Chronic) Depression (Chronic) Hypertension (Chronic) Generalized tonic-clonic seizure (Chronic) Onset 28 years old. Last seizure 2018. Neurologist at [facility] Knee pain, bilateral (Chronic) Medical History Abnormal Pap smear of cervix Apr 2023: ASCUS/HPV+ ->colp: benign appearing Oct 2016: Normal/neg Tremor of both hands secondary to Depakote, per pt. Grand mal seizure disorder Last seizure August 2018. 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 Has routine cardiology follow-up Dr. Rai in [place]. Pt. states there is still a slight hole but is monitored H/O knee surgery Social History Smoking/Tobacco Use Status: Never Smoking risk assessment performed?: Yes Alcohol Intake: never Drug use: Daily Substance use type: marijuana Details: Marijuana daily. CBD oil as needed. 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 Katia without issues, attends [employer] History History 4 Para 2 Hx # Term Pregnancies Multiple births Hx # Pregnancies Ectopic pregnancies AB induced 2 Hx Number of Living Children AB spontaneous
[2024-01-06] MEDS: LORazepam 1 MG TAB PO (22:57)
[2024-01-06 23:00] LABS: Abs Immature Grans 0.07 10^3/uL (0.0-0.06); Absolute Basophil Count 0.08 10^3/uL (0.0-0.2); Absolute Eosinophil Count 0.38 10^3/uL (0.0-0.7); Absolute Lymphocyte Count 3.81 10^3/uL (1.2-3.4); Absolute Monocyte Count 1.11 10^3/uL (0.1-0.8); Absolute Neutrophil Count 6.35 10^3/uL (1.2-6.7); Basophils % 0.7 %; Eosinophils % 3.2 %; HCT 40.2 % (36.0-46.0); HGB 14.3 g/dL (11.2-15.7); Immature Grans % 0.6 %; Lymphocytes % 32.3 %; MCH 30.3 pg (27.0-33.0); MCHC 35.6 % (32.0-36.0); MCV 85 fL (80-95); MPV 8.5 fL (8.0-11.0); Monocytes % 9.4 %; Neutrophils % 53.8 %; Platelet Count 337 10^3/uL (130-400); RBC 4.72 10^6/uL (3.93-5.22); RDW 11.8 % (11.7-14.6); RDW-SD 36.2 fL
[2024-01-06 23:21] LABS: ALT 33 U/L (14-59); AST 13 U/L (15-37); Albumin 3.8 g/dL (3.4-5.0); Alkaline Phosphatase 49 U/L (46-116); Anion Gap 9.8 mmol/L (3-11); BUN 15 mg/dL (7-18); Bilirubin, Total 0.25 mg/dL (0.2-1.0); CO2 24.2 mmol/L (21.0-32.0); CREATININE 0.8 mg/dL (0.55-1.02); Calcium 9.4 mg/dL (8.5-10.1); Chloride 104 mmol/L (98-107); Estimated GFR 95.46 (mL/min/1.73m2); Glucose 102 mg/dL (74-106); Potassium 3.5 mmol/L (3.5-5.1); Sodium 138 mmol/L (136-145); Total Protein 7.7 g/dL (6.4-8.2); Troponin I 4 ng/L (<or=51)
--- NOTE | 2024-01-06 23:51 | DI.VRAD_ITS ---
PROCEDURE INFORMATION: Exam: XR Chest Exam date and time: 01/06/2024 11:03 PM Age: 38 years old Clinical indication: Other: Chest pain; Prior surgery; Surgery date: 6+ months; Surgery type: Heart surgery, back surgery TECHNIQUE: Imaging protocol: Radiologic exam of the chest. Views: 2 views. COMPARISON: CR XR CHEST 1V IN DI DEPT 11/12/2021 11:43 AM FINDINGS: Lungs: Unremarkable. No consolidation. Pleural spaces: Unremarkable. No pleural effusion. No pneumothorax. Heart/Mediastinum: Unremarkable. No cardiomegaly. Bones/joints: Patient is status post sternotomy. IMPRESSION: Normal chest x-ray. Dictated and Authenticated by: Nicanor Olivares MD. Ordering:ALBA Guidry MD
[2024-01-07] VITALS: PULSE 62; RESP 12; O2SAT 98
[2024-01-07 00:06] VITALS: BP 120/80; PULSE 60; RESP 14; O2SAT 98
== END 2024-01-07 00:06 | disposition home or self-care (01) ==
LOC: ER 01-07 00:12
PROVIDERS: Emergency Provider Student in an Organized Health Care Education/Training Program; PCP Nurse Practitioner Family
DX: F41.9 Anxiety disorder, unspecified (principal); R07.9 Chest pain, unspecified; R06.02 Shortness of breath
CPT/HCPCS: 36415; 80053; 93005; 99285; 71046; 83735; 84484; 85025; 93010; 99284

== ENCOUNTER 2024-01-20 07:41 | Emergency (ER) | payer MEDICAID, SELFPAY ==
[2024-01-20 07:46] VITALS: BP 187/109; PULSE 55; RESP 15; O2SAT 98
[2024-01-20] MEDS: Bupivacaine 0.5% Pres-Free 30 ML VIAL (08:29)
--- NOTE | 2024-01-20 08:43 | ED.GENADUL_ITS ---
Discharge Plan Disposition Patient Disposition: Home Discharge Details Clinical Impression: Back pain, Acute hip pain, Knee pain Primary Care Provider: Lilian Julien ED Provider: Maria Del Carmen Cunha Home Meds and New Rx's Prescriptions: New methylprednisolone [Medrol (Jona)] 4 mg tablets,dose pack See Rx Instructions .ROUTE .COMPLEX Qty: 21 0RF Rx Instructions: for 6 days Continued cbd oil 0.75 ml PO BID Patient Comments: 3/4 dropper morning and night propranolol 10 mg tablet 10 mg PO PRN Patient Comments: TAKE ONE TABLET BY MOUTH TWICE A DAY NEEDED FOR PANIC ATTACK, USE SPARINGLY cholecalciferol (vitamin D3) 50 mcg (2,000 unit) capsule 2,000 unit PO DAILY Patient Comments: 1 capsule by mouth once a day After 8 weeks of D50,000U, take 1 cap of 2, 000U daily clobazam 10 mg tablet 10 mg PO DAILY Patient Comments: 06/07/23-10mg am, 20mg at night albuterol sulfate 90 mcg/actuation aerosol powdr breath activated 1 inh IH Q4H PRN (Reason: shortness of breath or wheezing) 14 Days Qty: 1 0RF omeprazole 40 mg capsule,delayed release(DR/EC) 40 mg PO DAILY Patient Comments: TAKE ONE CAPSULE BY MOUTH EVERY DAY ONE HOUR PRIOR TO BED cholecalciferol (vitamin D3) [Vitamin D3] 25 mcg (1,000 unit) Capsule 1,000 unit PO DAILY aspirin 81 mg tablet,chewable 81 mg PO DAILY Patient Comments: Take 1 tablet by mouth once a day gabapentin 300 mg capsule 300 mg PO BID Patient Comments: TAKE ONE CAPSULE BY MOUTH TWICE A DAY lisinopril 10 mg tablet 10 mg PO BID Patient Comments: TAKE ONE TABLET BY MOUTH EVERY DAY magnesium oxide 250 mg magnesium tablet 250 mg PO BID Patient Comments: TAKE ONE TABLET BY MOUTH TWICE A DAY riboflavin (vitamin B2) [Vitamin B-2] 100 mg tablet 100 mg PO DAILY Patient Comments: TAKE TWO TABLETS BY MOUTH TWICE A DAY Discharge Instructions Instructions: Fibromyalgia (DC), Muscle and bone pain - Discharge instructions Additional Instructions: Take the Medrol as prescribed Continue on iron additional medications Try to get at least 30 minutes of fresh air outside daily Call your counselor to schedule an appointment You may need additional blood pressure medication, talk to your doctor about this I placed an appointment to physical therapy for your patellofemoral syndrome Please return earlier should you have new or worsening complaints Stand Alone Forms: Physical Therapy Referral Discharge Data Discharge Date/Time-TO BE ENTERED AT DEPARTURE: 01/20/24 09:00 HPI General Date/Time Provider Initiated Documentation: 01/20/24 08:01 . HPI Narrative: This 38-year-old female presents with chronic pain symptoms, right trapezius pain, left hip pain, and bilateral knee pain. She has had these pains intermittently for years but they have become bothersome for sleeping. She states he is working with her provider given her history of seizures for medication management. She denies any new trauma. Patient denies any chest pain or shortness of breath. Patient denies any fever or chills. She denies any chance of . Has an appointment with her provider via phone on the for patient. Related Data Home Medications ?Medication ?Instructions ?Recorded ?Confirmed cbd oil 0.75 ml PO BID 05/29/18 01/20/24 cholecalciferol (vitamin D3) 25 1,000 unit PO DAILY 10/09/21 01/20/24 mcg (1,000 unit) capsule (Vitamin D3) albuterol sulfate 90 mcg/actuation 1 inh inhalation Q4H PRN shortness 10/19/21 01/20/24 breath activated powder inhaler of breath or wheezing 2 weeks #1 ea aspirin 81 mg chewable tablet 81 mg PO DAILY 12/28/22 01/20/24 gabapentin 300 mg capsule 300 mg PO BID 12/28/22 01/20/24 lisinopril 10 mg tablet 10 mg PO BID 12/28/22 01/20/24 magnesium oxide 250 mg PO BID 12/28/22 01/20/24 riboflavin (vitamin B2) 100 mg 100 mg PO DAILY 12/28/22 01/20/24 tablet (Vitamin B-2) cholecalciferol (vitamin D3) 50 2,000 unit PO DAILY 02/03/23 01/20/24 mcg (2,000 unit) capsule propranolol 10 mg tablet 10 mg PO PRN 02/03/23 01/20/24 clobazam 10 mg tablet 10 mg PO DAILY 06/07/23 01/20/24 omeprazole 40 mg capsule,delayed 40 mg PO DAILY 01/06/24 01/20/24 release methylprednisolone 4 mg tablets in See Rx Instructions PO .COMPLEX 01/20/24 a dose pack (Medrol (Jona)) #21 dose pk Previous Rx's ?Medication ?Instructions ?Recorded albuterol sulfate 90 mcg/actuation 1 inh inhalation Q4H PRN shortness 10/19/21 breath activated powder inhaler of breath or wheezing 2 weeks #1 ea methylprednisolone 4 mg tablets in See Rx Instructions PO .COMPLEX 01/20/24 a dose pack (Medrol (Jona)) #21 dose pk Allergies Allergy/AdvReac Type Severity Reaction Status Date / Time divalproex sodium (From AdvReac Mild Other (See Unverified 11/16/23 12:43 Depakote) Comment) General Stated Complaint: Orthopedic GM: 4 Exam Narrative Exam Narrative: 38-year-old female in no acute distress, distal pulses intact, reproducible tenderness in the trapezius region around the scapula on the right, no rashes or lesions Course Vital Signs Vital signs: Vital Signs Pulse 55 L 01/20/24 07:46 Respiratory Rate 15 01/20/24 07:46 Blood Pressure 187/109 H 01/20/24 07:46 Pulse Oximetry 98 01/20/24 07:46 Pulse 55 L 01/20/24 07:46 Respiratory Rate 15 01/20/24 07:46 Respiratory Effort Normal 01/20/24 07:56 Blood Pressure 187/109 H 01/20/24 07:46 Pulse Oximetry 98 01/20/24 07:46 Pain Level 10 01/20/24 07:46 Procedures Other Description: Trigger point injection, x 3 to the right trapezius region, 6 cc of Marcaine was utilized 2 cc in each location. Site was cleansed and injections performed. Patient tolerated procedure without incident. Medical Decision Making 38-year-old female presenting for right trapezius muscle pain acute exacerbation of chronic pain. Trigger point injection was performed to trapezius muscle, patient reports significant improvement in pain. At this time patient is requesting discharge home. She feels symptomatically improved. She is encouraged to follow-up with primary care physician at her appointment on the and to return earlier should she have new or worsening complaints. Discharged home in stable condition. Patient is aware that her blood pressure is elevated, she states my blood pressure is always elevated . She will address this with her primary care physician at her appointment. She is asymptomatic with this finding patient. Quality:SDOH Health Related Social Needs: Health related social needs housing instability, house d, with risk of homelessness(Z59.811) [facility] All Active Problems (Updated 01/20/24 @ 08:52 by JORDY Adan) Knee pain (Acute) Acute hip pain (Acute) Back pain (Acute) Sciatica (Acute) 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 Fibromyalgia (Chronic) Treated with marijuana. Patient does not have a medical marijuana card Asthma (Chronic) Hyperlipidemia (Chronic) Migraine headache (Chronic) Depression (Chronic) Hypertension (Chronic) Generalized tonic-clonic seizure (Chronic) Onset 28 years old. Last seizure 2018. Neurologist at [place] Knee pain, bilateral (Chronic) Medical History Abnormal Pap smear of cervix Apr 2023: ASCUS/HPV+ ->colp: benign appearing Oct 2016: Normal/neg Tremor of both hands secondary to Depakote, per pt. Grand mal seizure disorder Last seizure August 2018. 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 Has routine cardiology follow-up Dr. Rai in [place]. Pt. states there is still a slight hole but is monitored H/O knee surgery Social History Smoking/Tobacco Use Status: Never Smoking risk assessment performed?: Yes Alcohol Intake: never Drug use: Daily Substance use type: marijuana Details: Marijuana daily. CBD oil as needed. 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 Ruben RN 12/28/22 Daughter Magaly special-needs secondary to difficulty speaking (attending [employer]). Katia without issues, attends [employer] History History 4 Para 2 Hx # Term Pregnancies Multiple births Hx # Pregnancies Ectopic pregnancies AB induced 2 Hx Number of Living Children AB spontaneous
[2024-01-20 09:00] VITALS: BP 164/107; RESP 18; TEMP 37.1
== END 2024-01-20 09:00 | disposition home or self-care (01) ==
PROVIDERS: Emergency Provider Physician Assistant; PCP Nurse Practitioner Family
DX: M54.9 Dorsalgia, unspecified (principal); M25.552 Pain in left hip; M25.561 Pain in right knee; M25.562 Pain in left knee
CPT/HCPCS: 20552; J0665

== ENCOUNTER 2024-01-29 14:52 | Emergency (ER) | payer MEDICAID, SELFPAY ==
[2024-01-29] VITALS (14 sets, daily range): BP systolic 110–165; BP diastolic 58–105; PULSE 74–85; RESP 14–18; TEMP 36.4; O2SAT 92–95
--- NOTE | 2024-01-29 15:29 | W.ED.GENAD ---
Discharge Plan Disposition Patient Disposition: Home Condition: Stable Discharge Details Clinical Impression: Fibromyalgia, Sciatica, Knee pain, bilateral, Back pain, Knee pain, Hypertension, Hyperlipidemia, Depression, Acute hip pain, Asthma Primary Care Provider: Lilian Julien ED Provider: Aundrea Thompson Home Meds and New Rx's Prescriptions: New Morphine Ir, 4 Tabs/Btl [Msir, 4 Tabs/Btl] 15 mg PO DISPENSE Qty: 0 0RF No Action cbd oil 0.75 ml PO BID Patient Comments: 3/4 dropper morning and night propranolol 10 mg tablet 10 mg PO PRN Patient Comments: TAKE ONE TABLET BY MOUTH TWICE A DAY NEEDED FOR PANIC ATTACK, USE SPARINGLY cholecalciferol (vitamin D3) 50 mcg (2,000 unit) capsule 2,000 unit PO DAILY Patient Comments: 1 capsule by mouth once a day After 8 weeks of D50,000U, take 1 cap of 2,000U daily clobazam 10 mg tablet 10 mg PO DAILY Patient Comments: 06/06/24-10mg am, 30mg at night albuterol sulfate 90 mcg/actuation aerosol powdr breath activated 1 inh IH Q4H PRN (Reason: shortness of breath or wheezing) 14 Days Qty: 1 0RF omeprazole 40 mg capsule,delayed release(DR/EC) 40 mg PO DAILY Patient Comments: TAKE ONE CAPSULE BY MOUTH EVERY DAY ONE HOUR PRIOR TO BED cholecalciferol (vitamin D3) [Vitamin D3] 25 mcg (1,000 unit) Capsule 1,000 unit PO DAILY aspirin 81 mg tablet,chewable 81 mg PO DAILY Patient Comments: Take 1 tablet by mouth once a day gabapentin 300 mg capsule 300 mg PO BID Patient Comments: TAKE ONE CAPSULE BY MOUTH TWICE A DAY lisinopril 10 mg tablet 10 mg PO BID Patient Comments: TAKE ONE TABLET BY MOUTH EVERY DAY magnesium oxide 250 mg magnesium tablet 250 mg PO BID Patient Comments: TAKE ONE TABLET BY MOUTH TWICE A DAY riboflavin (vitamin B2) [Vitamin B-2] 100 mg tablet 100 mg PO DAILY Patient Comments: TAKE TWO TABLETS BY MOUTH TWICE A DAY Discharge Instructions Instructions: Chronic pain Additional Instructions: You were seen in the emergency department today for evaluation of body pain, for which you are followed by multiple outpatient providers. Reviewed a full physical examination performed and received medications for management of your pain. You are provided with a short course of oral morphine to be used for breakthrough pain, but should continue to use your Tylenol, ibuprofen, and topical medications. You need to follow-up with your outpatient providers to discuss next steps in long-term management. This includes orthopedics, your primary care provider, and the pain management clinic. I did put another referral into pain management to ensure that you are on the list. Thank you for allowing us to be part of your care. HPI General Mode of arrival: ambulatory. Date/Time Provider Initiated Documentation: 01/29/24 14:53. Limitations to Documentation: no limitations. Information obtained by: patient, family and old records reviewed. HPI Narrative: HPI: This is a 38-year-old female patient with a past medical history significant for hypertension, hyperlipidemia, migraine, fibromyalgia, chronic hip and knee pain for which she is followed by physical therapy and referred to orthopedics, as well as back and neck pain status post 2 spinal fusion surgeries, followed by spine and pain at [facility], who is presenting for evaluation today of worsening body wide pain. The patient reports that she woke up this morning feeling unwell, had pain that did not respond to her typical regimen of Tylenol and ibuprofen, went to physical therapy without significant exacerbation or alleviation of her pain. She states that she called the [facility] pain and spine clinic, who stated that she could either make an appointment with them for next weeks, or present to the ED. As the patient has financial difficulties getting to [facility] for appointments, she elected to proceed with ED evaluation. The patient reports that the pain is worse and more widespread than typical, states that she uses multimodal pain management in the outpatient environment to include Tylenol and ibuprofen, prescribed gabapentin, topical treatments such as [place] balm, states that lidocaine patches do not work for her. She states that she tried resting and relaxing, mindfulness techniques, none of which improved her pain to the point where she felt she could succeed without an evaluation today. Exam: Gen: Awake and alert, appears distressed HEENT: Non-icteric sclera Neck: Supple Lungs: No apparent respiratory distress, normal respiratory effort. CV: Appears well perfused, strong distal pulses Abdomen: Non-distended, soft MSK: Moves 4 extremities without apparent limitation in ROM. Generalized tenderness in her neck, back, shoulders, hips, and knees. Wearing knee brace. Skin: Visualized skin without rashes, cyanosis. Neuro: Normal Gait, no obvious focal deficits or facial asymmetry. Speaks in full, clear sentences. Psych: Appropriate for situation. MDM: This is a 38-year-old female patient presenting for evaluation of acute on chronic worsening of her body pain. My differential includes but is not limited to chronic pain exacerbation, likely due to some combination of her fibromyalgia, chronic neck and back pain postsurgically, hip pain likely due to trochanteric bursitis, knee pain due to patellofemoral syndrome. The patient has not sustained injury or trauma to increase my concern for fracture, dislocation, or other traumatic injuries. I did consider hardware disruption after fusion, though the patient has not had an incident that would have caused this to occur. She is hemodynamically appropriate with no localizing symptoms concerning for infection. She is tolerating p.o. intake and I have low concern for metabolic electrolyte derangement, kidney injury. I had an extended conversation with the patient regarding multimodal pain management and our plan of care. Today, I will provide her with a dose of Tylenol, Toradol, and oral morphine for breakthrough pain. The patient is desiring of discharge to home and to follow-up with her outpatient providers. I did provide her with information on community connections given her financial difficulties, as well as a referral for the pain clinic here at [facility]. We did discuss imaging, which I feel would be of little diagnostic value, and she feels comfortable foregoing any diagnostic workup at this time given her numerous outpatient appointments scheduled for the near future. ED Course: On reassessment patient reports improvement in her pain, and I provided her with a short course of oral morphine for breakthrough pain to continue in the home environment. I also provided her with counseling on multimodal pain management, and she understands the follow-up plan and return precautions. At this time, the patient has had a full medical evaluation and is safe for discharge to home. They are hemodynamically stable, ambulatory, and tolerating PO. They are understanding of the follow-up plan and return precautions. They left our facility without incident. Aundrea Thompson MD Related Data Home Medications ?Medication ?Instructions ?Recorded ?Confirmed cbd oil 0.75 ml PO BID 05/29/18 01/29/24 cholecalciferol (vitamin D3) 25 1,000 unit PO DAILY 10/09/21 01/29/24 mcg (1,000 unit) capsule (Vitamin D3) albuterol sulfate 90 mcg/actuation 1 inh inhalation Q4H PRN shortness 10/19/21 01/29/24 breath activated powder inhaler of breath or wheezing 2 weeks #1 ea aspirin 81 mg chewable tablet 81 mg PO DAILY 12/28/22 01/29/24 gabapentin 300 mg capsule 300 mg PO BID 12/28/22 01/29/24 lisinopril 10 mg tablet 10 mg PO BID 12/28/22 01/29/24 magnesium oxide 250 mg PO BID 12/28/22 01/29/24 riboflavin (vitamin B2) 100 mg 100 mg PO DAILY 12/28/22 01/29/24 tablet (Vitamin B-2) cholecalciferol (vitamin D3) 50 2,000 unit PO DAILY 02/03/23 01/29/24 mcg (2,000 unit) capsule propranolol 10 mg tablet 10 mg PO PRN 02/03/23 01/29/24 clobazam 10 mg tablet 10 mg PO DAILY 06/07/23 01/29/24 omeprazole 40 mg capsule,delayed 40 mg PO DAILY 01/06/24 01/29/24 release MORPHine IR, 4 tabs/btl [MSIR, 4 15 mg PO DISPENSE ##0 01/29/24 tabs/btl] Previous Rx's ?Medication ?Instructions ?Recorded albuterol sulfate 90 mcg/actuation 1 inh inhalation Q4H PRN shortness 10/19/21 breath activated powder inhaler of breath or wheezing 2 weeks #1 ea MORPHine IR, 4 tabs/btl [MSIR, 4 15 mg PO DISPENSE ##0 01/29/24 tabs/btl] Allergies Allergy/AdvReac Type Severity Reaction Status Date / Time divalproex sodium (From AdvReac Mild Other (See Unverified 01/29/24 15:01 Depakote) Comment) General Stated Complaint: Orthopedic GM: 3 Course Vital Signs Vital signs: Vital Signs Temperature 36.4 C 01/29/24 14:54 Pulse 85 01/29/24 14:54 Respiratory Rate 18 01/29/24 14:54 Blood Pressure 165/105 H 01/29/24 14:54 Pulse Oximetry 94 01/29/24 14:54 Temperature 36.4 C 01/29/24 14:54 Temperature Source Oral 01/29/24 14:54 Pulse 85 01/29/24 14:54 Respiratory Rate 18 01/29/24 14:54 Respiratory Effort Normal, Non-Labored 01/29/24 14:59 Blood Pressure 165/105 H 01/29/24 14:54 Pulse Oximetry 94 01/29/24 14:54 Oxygen Delivery Method Room Air 01/29/24 14:54 Oxygen Flow Rate 0 01/29/24 14:54 Pain Level 10 01/29/24 14:54 Medical Decision Making Quality:SDOH Health Related Social Needs: Health related social needs housing instability, housed, with risk of homelessness(Z59.811) PFSH All Active Problems (Updated 01/29/24 @ 16:57 by Aundrea Thompson MD) Knee pain (Acute) Acute hip pain (Acute) Back pain (Acute) Sciatica (Acute) 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 Fibromyalgia (Chronic) Treated with marijuana. Patient does not have a medical marijuana card Asthma (Chronic) Hyperlipidemia (Chronic) Migraine headache (Chronic) Depression (Chronic) Hypertension (Chronic) Generalized tonic-clonic seizure (Chronic) Onset 28 years old. Last seizure 2018. [place] [facility] [place] pain, bilateral (Chronic) Medical History Abnormal Pap smear of cervix Apr 2023: ASCUS/HPV+ ->colp: benign appearing Oct 2016: Normal/neg Tremor of both hands secondary to Depakote, per pt. Grand mal seizure disorder Last seizure August 2018. 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 Has routine cardiology follow-up Dr. Rai in [place]. Pt. 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
[2024-01-29] MEDS: Ketorolac 15 MG/ML VIAL IM (15:31)
[2024-01-29] MEDS: Acetaminophen 500 MG TAB 1000 MG PO (15:31)
[2024-01-29] MEDS: MORPHine IR 15 MG TAB PO (15:31)
--- NOTE | 2024-01-29 16:41 | ED.PROG_ITS ---
Date of service: 01/29/24 Time of Service: 18:37 Medical Decision Making Entered in error, I did not see this patient. Quality:SDOH Health Related Social Needs: Health related social needs housing instability, house d, with risk of homelessness(Z59.811) Discharge Plan Disposition Patient Disposition: Home Condition: Stable Discharge Details Clinical Impression: Fibromyalgia, Sciatica, Knee pain, bilateral, Back pain, Knee pain, Hypertension, Hyperlipidemia, Depression, Acute hip pain, Asthma Primary Care Provider: Lilian Julien ED Provider: Aundrea Thompson Home Meds and New Rx's Prescriptions: New Morphine Ir, 4 Tabs/Btl [Msir, 4 Tabs/Btl] 15 mg PO DISPENSE Qty: 0 0RF No Action cbd oil 0.75 ml PO BID Patient Comments: 3/4 dropper morning and night propranolol 10 mg tablet 10 mg PO PRN Patient Comments: TAKE ONE TABLET BY MOUTH TWICE A DAY NEEDED FOR PANIC ATTACK, USE SPARINGLY cholecalciferol (vitamin D3) 50 mcg (2,000 unit) capsule 2,000 unit PO DAILY Patient Comments: 1 capsule by mouth once a day After 8 weeks of D50,000U, take 1 cap of 2,000U daily clobazam 10 mg tablet 10 mg PO DAILY Patient Comments: 06/07/23-10mg am, 30mg at night albuterol sulfate 90 mcg/actuation aerosol powdr breath activated 1 inh IH Q4H PRN (Reason: shortness of breath or wheezing) 14 Days Qty: 1 0RF omeprazole 40 mg capsule,delayed release(DR/EC) 40 mg PO DAILY Patient Comments: TAKE ONE CAPSULE BY MOUTH EVERY DAY ONE HOUR PRIOR TO BED cholecalciferol (vitamin D3) [Vitamin D3] 25 mcg (1,000 unit) Capsule 1,000 unit PO DAILY aspirin 81 mg tablet,chewable 81 mg PO DAILY Patient Comments: Take 1 tablet by mouth once a day gabapentin 300 mg capsule 300 mg PO BID Patient Comments: TAKE ONE CAPSULE BY MOUTH TWICE A DAY lisinopril 10 mg tablet 10 mg PO BID Patient Comments: TAKE ONE TABLET BY MOUTH EVERY DAY magnesium oxide 250 mg magnesium tablet 250 mg PO BID Patient Comments: TAKE ONE TABLET BY MOUTH TWICE A DAY riboflavin (vitamin B2) [Vitamin B-2] 100 mg tablet 100 mg PO DAILY Patient Comments: TAKE TWO TABLETS BY MOUTH TWICE A DAY Discharge Instructions Instructions: Chronic pain Additional Instructions: You were seen in the emergency department today for evaluation of body pain, for which you are followed by multiple outpatient providers. Reviewed a full physical examination performed and received medications for management of your pain. You are provided with a short course of oral morphine to be used for breakthrough pain, but should continue to use your Tylenol, ibuprofen, and topical medications. You need to follow-up with your outpatient providers to discuss next steps in long-term management. This includes orthopedics, your primary care provider, and the pain management clinic. I did put another referral into pain management to ensure that you are on the list. Thank you for allowing us to be part of your care. Discharge Data Discharge Date/Time-TO BE ENTERED AT DEPARTURE: 01/29/24 17:12
[2024-01-29] MEDS: MORPHine IR 15 MG TAB, 4 TABS/BTL PO (17:07)
== END 2024-01-29 17:12 | disposition home or self-care (01) ==
PROVIDERS: Emergency Provider Emergency Medicine; PCP Nurse Practitioner Family
DX: M79.7 Fibromyalgia (principal); M25.562 Pain in left knee; M25.561 Pain in right knee; I10 Essential (primary) hypertension; F32.A Depression, unspecified; J45.909 Unspecified asthma, uncomplicated
CPT/HCPCS: 00123; 96372; 99284; J1885

== ENCOUNTER 2024-02-08 21:03 | Emergency (ER) | payer MEDICAID, SELFPAY ==
[2024-02-08 21:05] VITALS: BP 181/108; PULSE 73; RESP 20; TEMP 36.6; O2SAT 97
--- NOTE | 2024-02-08 22:08 | NUR.NOTE ---
Nursing Note: Report and transfer of care given to Bettie Napoles RN at this time
--- NOTE | 2024-02-08 22:48 | W.ED.GENAD ---
Discharge Plan Disposition Patient Disposition: Home Condition: Stable Discharge Details Clinical Impression: Cervicalgia Primary Care Provider: Lilian Julien ED Provider: Maria Del Carmen Cunha Home Meds and New Rx's Prescriptions: Continued cbd oil 0.75 ml PO BID Patient Comments: 3/4 dropper morning and night propranolol 10 mg tablet 10 mg PO PRN Patient Comments: TAKE ONE TABLET BY MOUTH TWICE A DAY NEEDED FOR PANIC ATTACK, USE SPARINGLY cholecalciferol (vitamin D3) 50 mcg (2,000 unit) capsule 2,000 unit PO DAILY Patient Comments: 1 capsule by mouth once a day After 8 weeks of D50,000U, take 1 cap of 2,000U daily clobazam 10 mg tablet 10 mg PO DAILY Patient Comments: 06/06/24-10mg am, 30mg at night albuterol sulfate 90 mcg/actuation aerosol powdr breath activated 1 inh IH Q4H PRN (Reason: shortness of breath or wheezing) 14 Days Qty: 1 0RF omeprazole 40 mg capsule,delayed release(DR/EC) 40 mg PO DAILY Patient Comments: TAKE ONE CAPSULE BY MOUTH EVERY DAY ONE HOUR PRIOR TO BED naproxen 500 mg tablet 500 mg PO BID Patient Comments: TAKE ONE TABLET BY MOUTH TWICE A DAY WITH MEALS methocarbamol 500 mg tablet 500 mg PO BID Patient Comments: TAKE ONE TABLET BY MOUTH TWICE A DAY cholecalciferol (vitamin D3) [Vitamin D3] 25 mcg (1,000 unit) Capsule 1,000 unit PO DAILY aspirin 81 mg tablet,chewable 81 mg PO DAILY Patient Comments: Take 1 tablet by mouth once a day gabapentin 300 mg capsule 300 mg PO TID Patient Comments: TAKE ONE CAPSULE BY MOUTH TWICE A DAY lisinopril 10 mg tablet 10 mg PO BID Patient Comments: TAKE ONE TABLET BY MOUTH EVERY DAY magnesium oxide 250 mg magnesium tablet 250 mg PO BID Patient Comments: TAKE ONE TABLET BY MOUTH TWICE A DAY riboflavin (vitamin B2) [Vitamin B-2] 100 mg tablet 100 mg PO DAILY Patient Comments: TAKE TWO TABLETS BY MOUTH TWICE A DAY Discharge Instructions Instructions: Chronic Neck Pain (DC) Additional Instructions: Take the morphine tonight, you had 4 tablets, use caution when taking these medications together they are addictive and they can make you drowsy and have difficulty breathing I am placing on the referral list for earlier reassessment with your neurologist Should you have new or worsening complaints, please be reevaluated immediately Referrals: Lilian Julien [Primary Care Provider] - [facility] General Date/Time Provider Initiated Documentation: 02/08/24 21:08. [facility] Narrative: This 38-year-old female presents with acute exacerbation of chronic neck pain. She states that she had surgery for decompression on her cervical spine in June of this year. She states that she saw her neurologist 3 days ago and they ordered another MRI which has yet to be performed. She states she was having identical symptoms when she was evaluated by her neurologist. She states she has not had any change in symptoms but the pain is always worse at night and secondary to persistence of pain she presents today for assessment. She was started on a new medication regimen which she feels like is helping during the day, but after 2:00 in the afternoon she states her pain starts to increase despite minutes. She denies any changes in bowel or bladder today. She states over the course of the past few months she has had some intermittent difficulty emptying completely but states this is not changed or worsening. She denies any urinary incontinence or change in bowel. She denies any difficulty walking or sensation change in the groin region. Related Data Home Medications ?Medication ?Instructions ?Recorded ?Confirmed cbd oil 0.75 ml PO BID 05/29/18 02/08/24 cholecalciferol (vitamin D3) 25 1,000 unit PO DAILY 10/09/21 02/08/24 mcg (1,000 unit) capsule (Vitamin D3) albuterol sulfate 90 mcg/actuation 1 inh inhalation Q4H PRN shortness 10/19/21 02/08/24 breath activated powder inhaler of breath or wheezing 2 weeks #1 ea aspirin 81 mg chewable tablet 81 mg PO DAILY 12/28/22 02/08/24 gabapentin 300 mg capsule 300 mg PO TID 12/28/22 02/08/24 lisinopril 10 mg tablet 10 mg PO BID 12/28/22 02/08/24 magnesium oxide 250 mg PO BID 12/28/22 02/08/24 riboflavin (vitamin B2) 100 mg 100 mg PO DAILY 12/28/22 02/08/24 tablet (Vitamin B-2) cholecalciferol (vitamin D3) 50 2,000 unit PO DAILY 02/03/23 02/08/24 mcg (2,000 unit) capsule propranolol 10 mg tablet 10 mg PO PRN 02/03/23 02/08/24 clobazam 10 mg tablet 10 mg PO DAILY 06/07/23 02/08/24 omeprazole 40 mg capsule,delayed 40 mg PO DAILY 01/06/24 02/08/24 release methocarbamol 500 mg tablet 500 mg PO BID 02/08/24 02/08/24 naproxen 500 mg tablet 500 mg PO BID 02/08/24 02/08/24 Previous Rx's ?Medication ?Instructions ?Recorded albuterol sulfate 90 mcg/actuation 1 inh inhalation Q4H PRN shortness 10/19/21 breath activated powder inhaler of breath or wheezing 2 weeks #1 ea Allergies Allergy/AdvReac Type Severity Reaction Status Date / Time divalproex sodium (From AdvReac Mild Other (See Unverified 02/08/24 21:10 Depakote) Comment) General Stated Complaint: Nk/Back Pain GM: 3 Exam Narrative Exam Narrative: Alert and oriented, labile 38-year-old female who is tearful, pupils equal round reactive to light and accommodation, lungs clear to auscultation, cervical spine tenderness appreciated, well-healed surgical site on cervical spine. No sensation to bilateral extremities, mildly diminished right hand grasp when compared to left, bilateral sensation and strength intact to lower extremities, rectal tone intact, no saddle anesthesia, ambulatory with steady gait, tearful throughout encounter Course Vital Signs Vital signs: Vital Signs Temperature 36.6 C 02/08/24 21:05 Pulse 73 02/08/24 21:05 Respiratory Rate 20 02/08/24 21:05 Blood Pressure 181/108 H 02/08/24 21:05 Pulse Oximetry 97 02/08/24 21:05 Temperature 36.6 C 02/08/24 21:05 Temperature Source Temporal Artery Scan 02/08/24 21:05 Pulse 73 02/08/24 21:05 Respiratory Rate 20 02/08/24 21:05 Respiratory Effort Normal, Non-Labored 02/08/24 21:10 Blood Pressure 181/108 H 02/08/24 21:05 Blood Pressure Position Sitting 02/08/24 21:05 Pulse Oximetry 97 02/08/24 21:05 Oxygen Delivery Method Room Air 02/08/24 21:05 Oxygen Flow Rate 0 02/08/24 21:05 Pain Level 9 02/08/24 21:16 Medical Decision Making 38-year-old female presenting with acute on chronic cervical pain. I spent approximately 20 minutes reviewing patient's 4 visits to this emergency department this month in addition to patient's visit on 02 04 with her neurologist at [facility] for which an MRI was ordered. While patient does have multiple comorbidities and concerning risk factors, I do not see clear indication for emergent transfer to [facility] at this time. Patient remains relatively neurologically stable I do think she needs an MRI sooner rather than later. We do not have MRI capacity at this time. I will place patient on referral list to have MRI at [facility], and it sounds like she is not scheduled until March. I will give her 4 tablets of morphine for the next 4 nights. And she is encouraged to call her neurologist on Saturday so that she may be reevaluated earlier with the MRI. She is given low threshold to return should she have new or worsening complaints. Quality:SDOH Health Related Social Needs: Health related social needs housing instability, housed, with risk of homelessness(Z59.811) PFSH All Active Problems (Updated 02/08/24 @ 22:36 by JORDY Adan) Cervicalgia (Acute) Knee pain (Acute) Acute hip pain (Acute) Back pain (Acute) Sciatica (Acute) 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 Fibromyalgia (Chronic) Treated with marijuana. Patient does not have a medical marijuana card Asthma (Chronic) Hyperlipidemia (Chronic) Migraine headache (Chronic) Depression (Chronic) Hypertension (Chronic) Generalized tonic-clonic seizure (Chronic) Onset 28 years old. Last seizure 2018. [place] [facility] [place] pain, bilateral (Chronic) Medical History Abnormal Pap smear of cervix Apr 2023: ASCUS/HPV+ ->colp: benign appearing Oct 2016: Normal/neg Tremor of both hands secondary to Depakote, per pt. Grand mal seizure disorder Last seizure August 2018. 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 Has routine cardiology follow-up Dr. Rai in [place]. Pt. 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
[2024-02-08] MEDS: Diclofenac 1% Gel 100 GM TUBE TP (22:57)
[2024-02-08] MEDS: MORPHine IR 15 MG TAB, 4 TABS/BTL PO (22:58)
== END 2024-02-08 22:59 | disposition home or self-care (01) ==
PROVIDERS: Emergency Provider Physician Assistant; PCP Nurse Practitioner Family
DX: M54.2 Cervicalgia (principal); Z59.811 Housing instability, housed, with risk of homelessness; Z98.890 Other specified postprocedural states
CPT/HCPCS: 99283

== ENCOUNTER 2024-02-15 13:24 | Emergency (ER) | payer MEDICAID, SELFPAY ==
[2024-02-15 13:25] VITALS: BP 153/89; PULSE 71; RESP 16; TEMP 36.8; O2SAT 96
[2024-02-15 13:52] LABS: Abs Immature Grans 0.04 10^3/uL (0.0-0.06); Absolute Basophil Count 0.06 10^3/uL (0.0-0.2); Absolute Eosinophil Count 0.46 10^3/uL (0.0-0.7); Absolute Lymphocyte Count 2.58 10^3/uL (1.2-3.4); Absolute Monocyte Count 1.04 10^3/uL (0.1-0.8); Basophils % 0.4 %; Eosinophils % 3.3 %; HCT 41.5 % (36.0-46.0); HGB 14.5 g/dL (11.2-15.7); Immature Grans % 0.3 %; Lymphocytes % 18.6 %; MCH 30.6 pg (27.0-33.0); MCHC 34.9 % (32.0-36.0); MCV 88 fL (80-95); MPV 8.7 fL (8.0-11.0); Monocytes % 7.5 %; Neutrophils % 69.9 %; Platelet Count 357 10^3/uL (130-400); RBC 4.74 10^6/uL (3.93-5.22); RDW-SD 38.9 fL; WBC 13.87 10^3/uL (4.4-10.8)
[2024-02-15 14:00] LABS: Bilirubin Negative (Negative); Blood Negative (Negative); Clarity Clear (Clear); Glucose Negative (Negative); Ketones Negative (Negative); Leukocyte Esterase Negative (Negative); Nitrite Negative (Negative); Urobilinogen 0.2 mg/dL (Up to 0.2)
[2024-02-15 14:01] LABS: Anion Gap 15.3 mmol/L (3-11); BUN 14 mg/dL (7-18); CO2 22.7 mmol/L (21.0-32.0); CREATININE 0.8 mg/dL (0.55-1.02); Calcium 9.3 mg/dL (8.5-10.1); Chloride 104 mmol/L (98-107); Estimated GFR 95.46 (mL/min/1.73m2); Glucose 97 mg/dL (74-106); Potassium 4.1 mmol/L (3.5-5.1); Sodium 142 mmol/L (136-145)
[2024-02-15 14:17] LABS: ESR 7 mm/hr (0-20)
[2024-02-15 14:23] LABS: C-Reactive Protein 0.62 mg/dL (<or=0.5)
--- NOTE | 2024-02-15 15:24 | ED.GENADUL_ITS ---
Discharge Plan Disposition Patient Disposition: Home Condition: Stable Discharge Details Clinical Impression: Trapezius muscle spasm Primary Care Provider: Lilian Julien ED Provider: Maria Del Carmen Cunha Home Meds and New Rx's Prescriptions: Continued cbd oil 0.75 ml PO BID Patient Comments: 3/4 dropper morning and night propranolol 10 mg tablet 10 mg PO PRN Patient Comments: TAKE ONE TABLET BY MOUTH TWICE A DAY NEEDED FOR PANIC ATTACK, USE SPARINGLY cholecalciferol (vitamin D3) 50 mcg (2,000 unit) capsule 2,000 unit PO DAILY Patient Comments: 1 capsule by mouth once a day After 8 weeks of D50,000U, take 1 cap of 2,000U daily clobazam 10 mg tablet 10 mg PO DAILY Patient Comments: 06/07/23-10mg am, 30mg at night albuterol sulfate 90 mcg/actuation aerosol powdr breath activated 1 inh IH Q4H PRN (Reason: shortness of breath or wheezing) 14 Days Qty: 1 0RF omeprazole 40 mg capsule,delayed release(DR/EC) 40 mg PO DAILY Patient Comments: TAKE ONE CAPSULE BY MOUTH EVERY DAY ONE HOUR PRIOR TO BED naproxen 500 mg tablet 500 mg PO BID Patient Comments: TAKE ONE TABLET BY MOUTH TWICE A DAY WITH MEALS methocarbamol 500 mg tablet 500 mg PO BID Patient Comments: TAKE ONE TABLET BY MOUTH TWICE A DAY cholecalciferol (vitamin D3) [Vitamin D3] 25 mcg (1,000 unit) Capsule 1,000 unit PO DAILY aspirin 81 mg tablet,chewable 81 mg PO DAILY Patient Comments: Take 1 tablet by mouth once a day gabapentin 300 mg capsule 600 mg PO TID Patient Comments: TAKE ONE CAPSULE BY MOUTH TWICE A DAY lisinopril 10 mg tablet 10 mg PO BID Patient Comments: TAKE ONE TABLET BY MOUTH EVERY DAY magnesium oxide 250 mg magnesium tablet 250 mg PO BID Patient Comments: TAKE ONE TABLET BY MOUTH TWICE A DAY riboflavin (vitamin B2) [Vitamin B-2] 100 mg tablet 100 mg PO DAILY Patient Comments: TAKE TWO TABLETS BY MOUTH TWICE A DAY Discharge Instructions Instructions: Muscle Spasms (DC) Additional Instructions: Continue on your prescribed medications, massage to right trapezius Follow-up with your neurosurgeon on Saturday to review your MRI and return earlier should you have new or worsening complaint Stand Alone Forms: Physical Therapy Referral Referrals: Lilian Julien [Primary Care Provider] - 2 days Discharge Data Discharge Date/Time-TO BE ENTERED AT DEPARTURE: 02/15/24 15:50 HPI General Date/Time Provider Initiated Documentation: 02/15/24 13:28 . HPI Narrative: This 38-year-old female known to this facility presents with right upper back, neck, and right upper extremity discomfort. Patient denies any headache, fever or chills. She did have fusion C5-T1 in June of this year and feels like she had significant improvement in pain until the last month when her pain started worsening. She denies any dramatic change in the numbness or weakness. She denies any fever or chills. She denies any chest pain or shortness of breath. Denies any changes in bowel or bladder. Related Data Home Medications ?Medication ?Instructions ?Recorded ?Confirmed cbd oil 0.75 ml PO BID 05/29/18 02/15/24 cholecalciferol (vitamin D3) 25 1,000 unit PO DAILY 10/09/21 02/15/24 mcg (1,000 unit) capsule (Vitamin D3) albuterol sulfate 90 mcg/actuation 1 inh inhalation Q4H PRN shortness 10/19/21 02/15/24 breath activated powder inhaler of breath or wheezing 2 weeks #1 ea aspirin 81 mg chewable tablet 81 mg PO DAILY 12/28/22 02/15/24 gabapentin 300 mg capsule 600 mg PO TID 12/28/22 02/15/24 lisinopril 10 mg tablet 10 mg PO BID 12/28/22 02/15/24 magnesium oxide 250 mg PO BID 12/28/22 02/15/24 riboflavin (vitamin B2) 100 mg 100 mg PO DAILY 12/28/22 02/15/24 tablet (Vitamin B-2) cholecalciferol (vitamin D3) 50 2,000 unit PO DAILY 02/03/23 02/15/24 mcg (2,000 unit) capsule propranolol 10 mg tablet 10 mg PO PRN 02/03/23 02/15/24 clobazam 10 mg tablet 10 mg PO DAILY 06/07/23 02/15/24 omeprazole 40 mg capsule,delayed 40 mg PO DAILY 01/06/24 02/15/24 release methocarbamol 500 mg tablet 500 mg PO BID 02/08/24 02/15/24 naproxen 500 mg tablet 500 mg PO BID 02/08/24 02/15/24 Previous Rx's ?Medication ?Instructions ?Recorded albuterol sulfate 90 mcg/actuation 1 inh inhalation Q4H PRN shortness 10/19/21 breath activated powder inhaler of breath or wheezing 2 weeks #1 ea Allergies Allergy/AdvReac Type Severity Reaction Status Date / Time divalproex sodium (From AdvReac Mild weight gain Unverified 02/15/24 14:08 Depakote) General Stated Complaint: Nk/Back Pain GM: 3 Exam Narrative Exam Narrative: Patient with palpable tenderness over the trapezius, neurologically intact, vascularly intact, no meningismus, lungs clear to auscultation. No rashes or lesions. Strength and sensation consistent with baseline exam, hand grasp intact to bilateral upper extremities and lower extremities. Ambulatory with steady gait. Course Vital Signs Vital signs: Vital Signs Temperature 36.8 C 02/15/24 13:25 Pulse 71 02/15/24 13:25 Respiratory Rate 16 02/15/24 13:25 Blood Pressure 153/89 H 02/15/24 13:25 Pulse Oximetry 96 02/15/24 13:25 Temperature 36.8 C 02/15/24 13:25 Pulse 71 02/15/24 13:25 Respiratory Rate 16 02/15/24 13:25 Respiratory Effort Normal 02/15/24 13:30 Blood Pressure 153/89 H 02/15/24 13:25 Pulse Oximetry 96 02/15/24 13:25 Pain Level 10 02/15/24 14:10 Lab/Test Results Lab/Test Results: Laboratory Tests Range/Units 02/15/24 02/15/24 13:32 13:55 WBC (4.4-10.8) 10^3/uL 13.87 H RBC (3.93-5.22) 10^6/uL 4.74 Hgb (11.2-15.7) g/dL 14.5 Hct (36.0-46.0) % 41.5 MCV (80-95) fL 88 MCH (27.0-33.0) pg 30.6 MCHC (32.0-36.0) % 34.9 RDW (11.7-14.6) % 12.0 Plt Count (130-400) 10^3/uL 357 MPV (8.0-11.0) fL 8.7 Immature Gran % % 0.3 Neutrophils % % 69.9 Lymphocytes % % 18.6 Monocytes % % 7.5 Eosinophils % % 3.3 Basophils % % 0.4 Nucleated RBC % (0.0-0.3) % 0.0 Absolute Neutrophils (1.2-6.7) 10^3/uL 9.70 H Absolute Lymphocytes (1.2-3.4) 10^3/uL 2.58 Absolute Monocytes (0.1-0.8) 10^3/uL 1.04 H Absolute Eosinophils (0.0-0.7) 10^3/uL 0.46 Absolute Basophils (0.0-0.2) 10^3/uL 0.06 ESR (0-20) mm/hr 7 Sodium (136-145) mmol/L 142 Potassium (3.5-5.1) mmol/L 4.1 Chloride (98-107) mmol/L 104 Carbon Dioxide (21.0-32.0) mmol/L 22.7 Anion Gap (3-11) mmol/L 15.3 H BUN (7-18) mg/dL 14 Creatinine (0.55-1.02) mg/dL 0.8 Est GFR (CKD-EPI 2020) (mL/min/1.73m2) 95.46 Glucose (74-106) mg/dL 97 Calcium (8.5-10.1) mg/dL 9.3 C-Reactive Protein (<or=0.5) mg/dL 0.62 H Urine Color (Yellow) Yellow Urine Clarity (Clear) Clear Urine pH (5-8) 6.0 Ur Specific [place] (1.005-1.025) 1.010 Urine Protein (Neg-Trace) mg/dL Negative Urine Ketones (Negative) mg/dL Negative Urine Blood (Negative) Negative Urine Nitrite (Negative) Negative Urine Bilirubin (Negative) Negative Urine Urobilinogen (Up to 0.2) mg/dL 0.2 Ur Leukocyte Esterase (Negative) Negative Urine Glucose (Negative) mg/dL Negative POC- Test(urine) Negative Medical Decision Making Alert and oriented 2-year-old female in no acute distress, significant tenderness over right trapezius. Patient did actually have an MRI this morning of her cervical spine, unfortunately the film has not been read. I did order diagnostic labs pending orthopedic return phone call as patient had intervention in June of this year. I did review labs which shows no significant leukocytosis and CRP reassuringly low. I have very low suspicion for abscess or additional pathology at this time. Patient is feeling marked improvement as I did perform trigger point injections to the right trapezius, 4 injections were placed over the trapezius muscle and areas of tenderness with approximately 3 cc of Marcaine 0.5% in each location. patient tolerated procedure well and reports marked improvement in her discomfort. She remains neurovascularly i ntact. She is afebrile and nontoxic. She is encouraged to call [facility] on Saturday and follow-up with her neurologist so that they may review her MRI. I do not feel based on her neurological exam and clinical exam today that she requires further intervention at this time. I will supply a physical therapy referral.Return precautions reviewed and patient expressed understanding Quality:SDOH Health Related Social Needs: Health related social needs housing instability, house d, with risk of homelessness(Z59.811) PFSH All Active Problems (Updated 02/15/24 @ 15:37 by JORDY Adan) Trapezius muscle spasm (Acute) Cervicalgia (Acute) Knee pain (Acute) Acute hip pain (Acute) Back pain (Acute) Sciatica (Acute) 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 Fibromyalgia (Chronic) Treated with marijuana. Patient does not have a medical marijuana card Asthma (Chronic) Hyperlipidemia (Chronic) Migraine headache (Chronic) Depression (Chronic) Hypertension (Chronic) Generalized tonic-clonic seizure (Chronic) Onset 28 years old. Last seizure 2018. Neurologist at [facility] [place] Knee pain, bilateral (Chronic) Medical History Abnormal Pap smear of cervix Apr 2023: ASCUS/HPV+ ->colp: benign appearing Oct 2016: Normal/neg Tremor of both hands secondary to Depakote, per pt. Grand mal seizure disorder Last seizure August 2018. 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 Has routine cardiology follow-up Dr. Rai in [place]. Pt. 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
[2024-02-15 15:48] VITALS: BP 156/99; PULSE 89; RESP 18; O2SAT 100
[2024-02-15] MEDS: Bupivacaine 0.5% Pres-Free 30 ML VIAL IJ (15:48)
== END 2024-02-15 15:50 | disposition home or self-care (01) ==
PROVIDERS: Emergency Provider Physician Assistant; PCP Nurse Practitioner Family
DX: M54.2 Cervicalgia (principal); M25.511 Pain in right shoulder; M62.838 Other muscle spasm
CPT/HCPCS: 20552; 80048; 81025; 85652; 99283; 81003; 85025; 86140; J0665

== ENCOUNTER 2024-02-27 18:40 | Emergency (ER) | payer MEDICAID, SELFPAY ==
[2024-02-27 18:41] VITALS: BP 132/89; PULSE 82; RESP 16; TEMP 36.8; O2SAT 98
--- NOTE | 2024-02-27 19:02 | NUR.NOTE ---
Nursing Note: Pt stated she was unable to lift her R arm due to pain. This RN observed patient lifting right arm to scratch her own face.
--- NOTE | 2024-02-27 19:13 | ED.GENADUL_ITS ---
Discharge Plan Disposition Patient Disposition: Home Discharge Details Clinical Impression: Chronic neck pain Primary Care Provider: Lilian Julien ED Provider: Winnie Angel Home Meds and New Rx's Prescriptions: No Action cbd oil 0.75 ml PO BID Patient Comments: 3/4 dropper morning and night propranolol 10 mg tablet 10 mg PO PRN Patient Comments: TAKE ONE TABLET BY MOUTH TWICE A DAY NEEDED FOR PANIC ATTACK, USE SPARINGLY cholecalciferol (vitamin D3) 50 mcg (2,000 unit) capsule 2,000 unit PO DAILY Patient Comments: 1 capsule by mouth once a day After 8 weeks of D50,000U, take 1 cap of 2,000U daily clobazam 10 mg tablet 10 mg PO DAILY Patient Comments: 06/07/23-10mg am, 30mg at night albuterol sulfate 90 mcg/actuation aerosol powdr breath activated 1 inh IH Q4H PRN (Reason: shortness of breath or wheezing) 14 Days Qty: 1 0RF omeprazole 40 mg capsule,delayed release(DR/EC) 40 mg PO DAILY Patient Comments: TAKE ONE CAPSULE BY MOUTH EVERY DAY ONE HOUR PRIOR TO BED naproxen 500 mg tablet 250 mg PO BID Patient Comments: TAKE ONE TABLET BY MOUTH TWICE A DAY WITH MEALS methocarbamol 500 mg tablet 500 mg PO TID Patient Comments: TAKE ONE TABLET BY MOUTH TWICE A DAY duloxetine [Cymbalta] 20 mg capsule,delayed release(DR/EC) 20 mg PO DAILY cholecalciferol (vitamin D3) [Vitamin D3] 25 mcg (1,000 unit) Capsule 1,000 unit PO DAILY aspirin 81 mg tablet,chewable 81 mg PO DAILY Patient Comments: Take 1 tablet by mouth once a day gabapentin 300 mg capsule 600 mg PO TID Patient Comments: TAKE ONE CAPSULE BY MOUTH TWICE A DAY lisinopril 10 mg tablet 10 mg PO BID Patient Comments: TAKE ONE TABLET BY MOUTH EVERY DAY magnesium oxide 250 mg magnesium tablet 250 mg PO BID Patient Comments: TAKE ONE TABLET BY MOUTH TWICE A DAY riboflavin (vitamin B2) [Vitamin B-2] 100 mg tablet 100 mg PO DAILY Patient Comments: TAKE TWO TABLETS BY MOUTH TWICE A DAY Discharge Instructions Instructions: Morphine (Systemic), Chronic Neck Pain (DC) Additional Instructions: Take the morphine, one tablet by mouth once a day for pain relief. Please follow-up with your spinal surgeon at [facility]. Return to the Emergency Department with any worsening symptoms or any other concerns. HPI General Date/Time Provider Initiated Documentation: 02/27/24 18:41 . HPI Narrative: The patient is a 38-year-old female with history of chronic neck pain stemming from C-spine pathology status post cervical spine surgery at [facility] this spring who comes the emergency department for recurrence of her neck pain. The patient reports that she was fine for a few months and a couple of months later the pain and spasm to her neck and upper back has returned. Reports that she was told by her surgeon at [facility] that there is nothing more they can do for her. Reports she had an MRI recently at [facility] but do not yet know the result. Reports that she had been in this emergency department multiple times for the same complaint and that no one has been able to help her. Reports that she has had no new fall, trauma or injury. Reports just weakness to both of her arms which has been ongoing also for the past 2 months. Denies any fevers, chills, cough, chest pain. Reports that when her pain worsens she does feel short of breath with it. Denies any abdominal pain or concern. Denies any numbness or tingling sensation. Reports has been taking all of her prescribed pain medication at home without improvement of symptoms. Related Data Home Medications ?Medication ?Instructions ?Recorded ?Confirmed cbd oil 0.75 ml PO BID 05/29/18 02/27/24 cholecalciferol (vitamin D3) 25 1,000 unit PO DAILY 10/09/21 02/27/24 mcg (1,000 unit) capsule (Vitamin D3) albuterol sulfate 90 mcg/actuation 1 inh inhalation Q4H PRN shortness 10/19/21 02/27/24 breath activated powder inhaler of breath or wheezing 2 weeks #1 ea aspirin 81 mg chewable tablet 81 mg PO DAILY 12/28/22 02/27/24 gabapentin 300 mg capsule 600 mg PO TID 12/28/22 02/27/24 lisinopril 10 mg tablet 10 mg PO BID 12/28/22 02/27/24 magnesium oxide 250 mg PO BID 12/28/22 02/27/24 riboflavin (vitamin B2) 100 mg 100 mg PO DAILY 12/28/22 02/27/24 tablet (Vitamin B-2) cholecalciferol (vitamin D3) 50 2,000 unit PO DAILY 02/03/23 02/27/24 mcg (2,000 unit) capsule propranolol 10 mg tablet 10 mg PO PRN 02/03/23 02/27/24 clobazam 10 mg tablet 10 mg PO DAILY 06/07/23 02/27/24 omeprazole 40 mg capsule,delayed 40 mg PO DAILY 01/06/24 02/27/24 release methocarbamol 500 mg tablet 500 mg PO TID 02/08/24 02/27/24 naproxen 500 mg tablet 250 mg PO BID 02/08/24 02/27/24 duloxetine 20 mg capsule,delayed 20 mg PO DAILY 02/27/24 02/27/24 release (Cymbalta) Previous Rx's ?Medication ?Instructions ?Recorded albuterol sulfate 90 mcg/actuation 1 inh inhalation Q4H PRN shortness 10/19/21 breath activated powder inhaler of breath or wheezing 2 weeks #1 ea Allergies Allergy/AdvReac Type Severity Reaction Status Date / Time divalproex sodium (From AdvReac Mild weight gain Unverified 02/27/24 18:41 Depakote) General Stated Complaint: Nk/Back Pain GM: 4 Review of Systems Narrative: Review of systems are negative except as mentioned. Constitutional Constitutional: Denies fever(s) Cardiovascular Cardiovascular: Denies chest pain Comments: Reports he does feel short of breath when the pain gets to be too severe. Respiratory Respiratory: Denies cough Gastrointestinal Gastrointestinal: Denies abdominal pain Musculoskeletal Comments: Admits to spasm to her upper back. Neurologic Neurologic: Denies paresthesias Comments: Admits to weakness to bilateral upper extremities. Admits to chronic, recurrent neck pain. Exam Const Orientation: alert, awake and oriented x3 Neck Other: Patient is surgical site to midline C-spine without overlying erythema, increased warmth to the touch. The patient has tenderness palpation to the entire neck at midline and paraspinal region bilaterally. Chest Other: Patient is intact sensation and symmetric sensation to the upper chest region. Resp Auscultation: clear to auscultation bilaterally Cardio Rate: regular rate Rhythm: regular rhythm Other: The patient has equal radial pulses. Neuro Other: The patient has equal radial pulses. The patient has no midline lumbar or thoracic spine tenderness to palpation. She does report tenderness to palpation to bilateral upper trapezial region. I did not appreciate any spasm during my evaluation of the upper trapezial region however. The patient has diminished strength for bilateral upper extremities. The patient has intact sensation to the back of the neck and head. She has equal strength to bilateral deltoids, biceps, wrist, finger extension, finger flexion and equal strength when she moves her fingers apart. Patient has intact sensation to light touch throughout the trunk. The patient has intact sensation in all dermatomal distributions of bilateral upper extremities. Course Vital Signs Vital signs: Vital Signs Temperature 36.8 C 02/27/24 18:41 Pulse 82 02/27/24 18:41 Respiratory Rate 16 02/27/24 18:41 Blood Pressure 132/89 02/27/24 18:41 Pulse Oximetry 98 02/27/24 18:41 Temperature 36.8 C 02/27/24 18:41 Pulse 82 02/27/24 18:41 Respiratory Rate 16 02/27/24 18:41 Blood Pressure 132/89 02/27/24 18:41 Pulse Oximetry 98 02/27/24 18:41 Pain Level 10 02/27/24 18:52 Medical Decision Making The patient does have diminished strength to bilateral upper extremity but this is symmetric. She is able to move her hands on her own in fact was able to remove her own c-collar on her own unassisted. She does arrive with soft cervical spine collar into place. I am not able to access her MRI reports through [facility]. Patient reports that every time she comes here we have not been able to help her. Reports that the last time she had injection to her back it just made things worse. On review of her medical records through [facility] she received trigger point injection. Because she had worsening symptom after this I will not be repeating this. The patient reports that she wants us to fix her issue and I explained to her and her partner after long c onversation that I would likely not be able to resolve her issue entirely. I told her that I will only be able to give her temporary relief to this chronic issue with pain medication. She would like to get this done so she will get an IM shot of pain medication now and morphine to go which is what she had received in the past. I did review her controlled substance list on the [place] prescription drug monitoring database and the only controlled substance recently there is Clobazam. I told the patient of plan for discharge at this point. She is encouraged to follow-up with her spinal surgeon. I told her that she may still seek second opinion with a different spinal surgeon however she reports that she trusts her surgeon and would want to follow-up with the same surgeon. I told her in the meantime if she does get worse or develop any new or concerning symptoms return to the emergency department otherwise follow-up with an outpatient basis. Quality:SDOH Health Related Social Needs: Health related social needs housing instability, house d, with risk of homelessness(Z59.811) [facility] All Active Problems (Updated 02/27/24 @ 19:15 by Winnie Angel DO) Chronic neck pain (Acute) Trapezius muscle spasm (Acute) Cervicalgia (Acute) Sciatica (Acute) 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 Fibromyalgia (Chronic) Treated with marijuana. Patient does not have a medical marijuana card Asthma (Chronic) Hyperlipidemia (Chronic) Migraine headache (Chronic) Depression (Chronic) Hypertension (Chronic) Generalized tonic-clonic seizure (Chronic) Onset 28 years old. Last seizure 2018. Neurologist at [facility] [place] Knee pain, bilateral (Chronic) Medical History Abnormal Pap smear of cervix Apr 2023: ASCUS/HPV+ ->colp: benign appearing Oct 2016: Normal/neg Tremor of both hands secondary to Depakote, per pt. Grand mal seizure disorder Last seizure August 2018. 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 Has routine cardiology follow-up Dr. Rai in [place]. Pt. 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
[2024-02-27] MEDS: MORPHine 4 MG/ML SYR IM (19:21)
[2024-02-27] MEDS: MORPHine IR 15 MG TAB PO ×2 (19:22)
== END 2024-02-27 19:29 | disposition home or self-care (01) ==
LOC: ER 19:51
PROVIDERS: Emergency Provider Emergency Medicine; PCP Nurse Practitioner Family
DX: M54.2 Cervicalgia (principal); G89.29 Other chronic pain; Z59.811 Housing instability, housed, with risk of homelessness
CPT/HCPCS: 96372; 99284; J2270

== ENCOUNTER 2024-03-28 14:18 | Emergency (ER) | payer MEDICAID, SELFPAY ==
[2024-03-28 14:20] VITALS: BP 154/103; PULSE 65; RESP 22; TEMP 36.9; O2SAT 97
[2024-03-28 14:57] LABS: *AMPHETAMINES SCREEN URINE Negative (Negative); *BARBITURATES SCREEN URINE Negative (Negative); *BENZODIAZEPINES SCREEN URINE Positive (Negative); Cannabinoids THC Positive (Negative); Cocaine Screen,Urine Negative (Negative); METHADONE URINE SCREEN Negative (Negative); OPIATES URINE SCREEN Negative (Negative)
[2024-03-28 15:00] LABS: Tricyclic Antidepressants Negative (Negative)
[2024-03-28] MEDS: LORazepam 1 MG TAB PO (15:28)
--- NOTE | 2024-03-28 15:36 | W.ED.GENAD ---
Discharge Plan Discharge Details Chief Complaint: PsychEval Primary Care Provider: Lilian Julien ED Provider: Lizett Simpson Home Meds and New Rx's Prescriptions: No Action cholecalciferol (vitamin D3) 50 mcg (2,000 unit) capsule 2,000 unit PO DAILY Patient Comments: 1 capsule by mouth once a day After 8 weeks of D50,000U, take 1 cap of 2,000U daily clobazam 10 mg tablet 10 mg PO DAILY Patient Comments: 06/07/23-10mg am, 30mg at night albuterol sulfate 90 mcg/actuation aerosol powdr breath activated 1 inh IH Q4H PRN (Reason: shortness of breath or wheezing) 14 Days Qty: 1 0RF omeprazole 40 mg capsule,delayed release(DR/EC) 40 mg PO DAILY Patient Comments: TAKE ONE CAPSULE BY MOUTH EVERY DAY ONE HOUR PRIOR TO BED naproxen 500 mg tablet 250 mg PO BID Patient Comments: TAKE ONE TABLET BY MOUTH TWICE A DAY WITH MEALS tizanidine 4 mg tablet 4 mg PO PRN Patient Comments: START BY TAKING 1 TABLET BY MOUTH EVERY 8 TO 12 HOURS. MAY INCREASE UP TO 2 TABLETS EVERY 8 HOURS NEEDED FOR A MAXIMUM OF 6 TABLETS PER D aspirin 81 mg tablet,chewable 81 mg PO DAILY Patient Comments: Take 1 tablet by mouth once a day gabapentin 300 mg capsule 600 mg PO TID Patient Comments: TAKE ONE CAPSULE BY MOUTH TWICE A DAY lisinopril 10 mg tablet 10 mg PO BID Patient Comments: TAKE ONE TABLET BY MOUTH EVERY DAY magnesium oxide 250 mg magnesium tablet 250 mg PO BID Patient Comments: TAKE ONE TABLET BY MOUTH TWICE A DAY riboflavin (vitamin B2) [Vitamin B-2] 100 mg tablet 100 mg PO DAILY Patient Comments: TAKE TWO TABLETS BY MOUTH TWICE A DAY HPI General Date/Time Provider Initiated Documentation: 03/28/24 14:19. Limitations to Documentation: no limitations. Information obtained by: patient, RN notes reviewed and old records reviewed. History of Present Illness 38 year old F presents to the emergency department with the chief complaint of SI, described as moderate and similar to prior episodes, Patient started experiencing this unknown and it has been now resolved. No relieving factors improve symptom(s), Other factors that worsen symptoms (social stressors) . Patient notes no other symptoms.. Patient did receive the following treatments prior to arrival, none Related Data Home Medications ?Medication ?Instructions ?Recorded ?Confirmed albuterol sulfate 90 mcg/actuation 1 inh inhalation Q4H PRN shortness 10/19/21 03/28/24 breath activated powder inhaler of breath or wheezing 2 weeks #1 ea aspirin 81 mg chewable tablet 81 mg PO DAILY 12/28/22 03/28/24 gabapentin 300 mg capsule 600 mg PO TID 12/28/22 03/28/24 lisinopril 10 mg tablet 10 mg PO BID 12/28/22 03/28/24 magnesium oxide 250 mg PO BID 12/28/22 03/28/24 riboflavin (vitamin B2) 100 mg 100 mg PO DAILY 12/28/22 03/28/24 tablet (Vitamin B-2) cholecalciferol (vitamin D3) 50 2,000 unit PO DAILY 02/03/23 03/28/24 mcg (2,000 unit) capsule clobazam 10 mg tablet 10 mg PO DAILY 06/07/23 03/28/24 omeprazole 40 mg capsule,delayed 40 mg PO DAILY 01/06/24 03/28/24 release naproxen 500 mg tablet 250 mg PO BID 02/08/24 03/28/24 tizanidine 4 mg tablet 4 mg PO PRN 03/28/24 Previous Rx's ?Medication ?Instructions ?Recorded albuterol sulfate 90 mcg/actuation 1 inh inhalation Q4H PRN shortness 10/19/21 breath activated powder inhaler of breath or wheezing 2 weeks #1 ea Allergies Allergy/AdvReac Type Severity Reaction Status Date / Time divalproex sodium (From AdvReac Mild weight gain Unverified 03/28/24 14:26 Depakote) General Stated Complaint: PsychEval GM: 2 Review of Systems Constitutional Constitutional: Reports as per HPI, Denies chills, Denies fever(s), Denies headache(s) and Denies weakness Eyes Eyes: Denies change in vision ENT Ears, Nose, Mouth, and Throat: Denies headache(s) Cardiovascular Cardiovascular: Reports as per HPI, Denies chest pain, Denies dyspnea and Denies dyspnea on exertion Respiratory Respiratory: Reports as per HPI, Denies cough, Denies dyspnea and Denies dyspnea on exertion Gastrointestinal Gastrointestinal: Reports as per HPI and Denies abdominal pain Integumentary/Breasts Skin/Breast: Reports as per HPI and Denies rash Neurologic Neurologic: Denies abnormal movements, Denies abnormal speech, Denies confusion, Denies headache(s) and Denies weakness Psychiatric Psychiatric: Reports as per HPI, Reports abnormal sleep pattern, Reports anxiety, Denies change in appetite, Denies confusion, Reports depression, Reports mood swings, Denies visual hallucinations, Denies hallucinations, Denies homicidal ideation and Reports suicidal ideation Exam Const General: cooperative, healthy appearing, comfortable, no acute distress, well developed, well groomed and anxious Nutritional Appearance: well nourished and overweight Orientation: alert and awake Eyes General: appearance normal, both eyes and all related structures Resp Effort & Inspection: normal respiratory effort, able to speak in complete sentences and no respiratory distress Cardio Rate: regular rate Rhythm: regular rhythm Neuro General: patient alert and patient awake Cognition: normal cognition Speech: speech normal Gait: normal gait Psych Appearance: grossly normal and disheveled Mental Status: mental status grossly normal Speech and Movement: speech and movement normal Mood: congruent mood Affect: sad Attitude: cooperative Thought Process: normal Thought Content: suicidality Insight: fair Judgment: fair Course Vital Signs Vital signs: Vital Signs Temperature 36.9 C 03/28/24 14:20 Pulse 65 03/28/24 14:20 Respiratory Rate 22 03/28/24 14:20 Blood Pressure 154/103 H 03/28/24 14:20 Pulse Oximetry 97 03/28/24 14:20 Temperature 36.9 C 03/28/24 14:20 Temperature Source Oral 03/28/24 14:20 Pulse 65 03/28/24 14:20 Respiratory Rate 22 03/28/24 14:20 Blood Pressure 154/103 H 03/28/24 14:20 Blood Pressure Position Sitting 03/28/24 14:20 Pulse Oximetry 97 03/28/24 14:20 Oxygen Delivery Method Room Air 03/28/24 14:20 Oxygen Flow Rate 0 03/28/24 14:20 Lab/Test Results Lab/Test Results: Laboratory Tests Range/Units 03/28/24 14:32 Urine Opiates Screen (Negative) Negative Urine Methadone Screen (Negative) Negative Ur Barbiturates Screen (Negative) Negative Ur Tricyclics Screen (Negative) Negative Ur Amphetamines Screen (Negative) Negative U Benzodiazepines Scrn (Negative) Positive A Urine Cocaine Screen (Negative) Negative Ur THC Screen (Negative) Positive A POC- Test(urine) Negative Medical Decision Making Patient is a pleasant 38-year-old female with past medical history significant for depression, grand mal seizure disorder, tremors, presenting with chief complaint of increased depression and suicidal ideation. Patient reports that secondary to previous neck surgery, she has been low disabled. 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 She did have her medications increased recently by primary care but states that after having the increase in medication she began having breakthrough seizures prompting her to stop the medication. She is currently not on any antidepressants as a result and has not been on a for at least a week. She has not had any further seizures. Patient reports that this is often an issue for her when starting or stopping other antidepressants in the past. She does see her neurologist routinely and is managed on clobazam. States that this morning she did attempt to cut her wrist andwas a suicidal act. She is now denying any continued thoughts of suicide but does feel that she has increased depression. She is very forward thinking talking that her daughter's, school. She has been hospitalized twice for mental health, last of which was about 5 years ago. Has a therapist whom she sees routinely. On exam, patient appears sad, anxious and upset, crying frequently. She seems to perseverate some on her childhood and past traumas. It sounds that she is currently in a safe relationship and is well supported. Does have increased stressors with her daughters, there needs as well as her own new disability. The abrasions on her wrist are very superficial linear witt, no true break in the skin. The patient is not actively endorsing suicidal ideation, when she first came in, we had discussed inpatient admission she had send interested in this as it has helped greatly in the past, particularly with medication management. However, with her daughters being in school and home requirements, she is wondering if outpatient management would be possible. Will have her discuss further with mental health. She does seem reliable and is very forward thinking so I do believe that they deem outpatient appropriate, she may be eligible for this. Do not see need for involuntary admission at this time. However, as it will be a few days before she starts school and follows up with her primary care, I would at least like them to check in on her daily and ensure that she has appropriate social supports and that her needs are met in regard to her mental health. Given the numerous medication she has had issues with in the past given particularly regarding her depression and seizure disorder, I do not feel that it would be appropriate to start new medication at this point we will defer to her psychology team as well as her primary care. At the end of my shift, patient is awaiting mental health evaluation. She was given 1 mg of Ativan for her anxiety. Seems much more calm. Labs have been drawn and initially no bleeding we will most likely pursue inpatient management. This remains a possibility based on mental health recommendations. Quality:SDOH Health Related Social Needs: No Data to Display PFSH All Active Problems (Updated 03/17/24 @ 00:08 by EBONY VALDES) Chronic neck pain (Acute) Sciatica (Acute) 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 Fibromyalgia (Chronic) Treated with marijuana. Patient does not have a medical marijuana card Asthma (Chronic) Hyperlipidemia (Chronic) Migraine headache (Chronic) Depression (Chronic) Hypertension (Chronic) Generalized tonic-clonic seizure (Chronic) Onset 28 years old. Last seizure 2018[place] [facility] [place] pain, bilateral (Chronic) Medical History Abnormal Pap smear of cervix Apr 2023: ASCUS/HPV+ ->colp: benign appearing Oct 2016: Normal/neg Tremor of both hands secondary to Depakote, per pt. Grand mal seizure disorder Last seizure August 2018. 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 Has routine cardiology follow-up Dr. Rai in [place]. Pt. 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
[2024-03-28 15:45] LABS: Abs Immature Grans 0.03 10^3/uL (0.0-0.06); Absolute Basophil Count 0.07 10^3/uL (0.0-0.2); Absolute Eosinophil Count 1.02 10^3/uL (0.0-0.7); Absolute Lymphocyte Count 3.02 10^3/uL (1.2-3.4); Absolute Monocyte Count 0.76 10^3/uL (0.1-0.8); Absolute Neutrophil Count 5.48 10^3/uL (1.2-6.7); Basophils % 0.7 %; Eosinophils % 9.8 %; Immature Grans % 0.3 %; Lymphocytes % 29.1 %; MCH 30.4 pg (27.0-33.0); MCHC 34.1 % (32.0-36.0); MCV 89 fL (80-95); MPV 9.1 fL (8.0-11.0); Monocytes % 7.3 %; Neutrophils % 52.8 %; Platelet Count 297 10^3/uL (130-400); RBC 4.61 10^6/uL (3.93-5.22); RDW 11.4 % (11.7-14.6); RDW-SD 36.5 fL; WBC 10.38 10^3/uL (4.4-10.8)
[2024-03-28 16:08] LABS: ALT 43 U/L (14-59); AST 21 U/L (15-37); Albumin 4.3 g/dL (3.4-5.0); Alkaline Phosphatase 37 U/L (46-116); Anion Gap 7.2 mmol/L (3-11); BUN 13 mg/dL (7-18); Bilirubin, Total 0.43 mg/dL (0.2-1.0); CO2 25.8 mmol/L (21.0-32.0); Calcium 9.2 mg/dL (8.5-10.1); Chloride 103 mmol/L (98-107); Estimated GFR 73.04 (mL/min/1.73m2); Glucose 124 mg/dL (74-106); Potassium 4.4 mmol/L (3.5-5.1); Sodium 136 mmol/L (136-145); TSH (W/Ref FT4) 1.07 uIU/mL (0.36-3.74); Total Protein 7.3 g/dL (6.4-8.2)
--- NOTE | 2024-03-28 16:11 | ED.FU.B_ITS ---
Follow Up Plan: Handoff report received from JORDY Anderson, daytime ANGUS. Please see her note for full HPI, ROS, and PE. I did perform a limited HPI and physical exam. Bessie is alert and oriented, no acute distress. Superficial abrasions noted to volar aspect of left wrist, no active bleeding. No other lesions noted. She is easily conversational, calm. Moving all extremities equally. Normal gait. I independently interpreted the following tests: CBC, CMP, TSH, and UDS reassuring (positive for benzos and marijuana, consistent with rx and MJ use). Bessie is resting comfortably after eating lunch. [facility] chest evaluation completed by Bessie, crisis counselor. Patient to be safety planned home, will have phone check-in tomorrow and follow-up on Saturday. She will be linked in with psychiatric services. I discussed plan of care with patient, who says that she feels safe to go home, denies suicidality at this time. Reviewed with her safety plan, as well as indications for return to emergency care. She voices agreement with plan of care.
[2024-03-28 16:15] LABS: Acetaminophen < 2 ug/mL (10-30); Salicylate < 2.8 mg/dL (<2.8)
[2024-03-28 16:20] LABS: ETHANOL BLOOD < 3.0 mg/dL (<10)
[2024-03-28 18:01] VITALS: BP 136/98; PULSE 62; RESP 16; TEMP 36.4; O2SAT 98
--- NOTE | 2024-03-28 18:32 | PDOC.MHCN ---
Date of service: 03/28/24 Time of Service: 16:20 PHQ-9 Over the last 2 weeks, how often have you been bothered by any of the following problems? 1. Little interest or pleasure in doing things: more than half the days 2. Feeling down, depressed, or hopeless: several days 3. Trouble falling or staying asleep, or sleeping too much: not at all 4. Feeling tired or having little energy: nearly every day 5. Poor appetite or overeating: nearly every day 6. Feeling bad about yourself - or that you are a failure or have let yourself and your family down: several days 7. Trouble concentrating on things, such as reading the newspaper or watching television: not at all 8. Moving or speaking so slowly that other people could have noticed? - Or the opposite - being so fidgety or restless that you have been moving around a lot more than usual: more than half the days 9. Thoughts that you would be better off or of hurting yourself in some way: several days Total score: 13 If you checked off any problems, how difficult have these problems made it for you to do your work, take care of things at home, or get along with other people?: somewhat difficult PHQ-9 Results: Positive Source: Developed by Drs. Peter Spaulding, Asya Hartley, Henry Mccabe and colleagues, with an educational dafne from [employer]. Suicide Severity Rate CSSRS Have you wished you were or wished you could go to sleep and not wake up?: Yes Have you actually had any thoughts of killing yourself?: Yes CSSRS2 Have you been thinking about how you might do this?: Yes Have you had these thoughts and had some intention of acting on them?: No Have you started to work out or worked out the details of how to kill yourself? Do you intend to carry out this plan?: No CSSRS3 Have you ever done anything, started to do anything or prepared to do anything to end your life?: Yes CSSRS4 Was this within the past three months?: Yes Screening Score Total Score: 8 Screening: Positive Mental Health Emergency Note Release [facility] release signed:: Yes Reason for Visit The client is known to [facility] in a very limited capacity as per chart review the client had an interaction with previous [facility] ES clinician Dao on 12/28/22. At time of interaction in December of 2022 the client had presented to [facility] for crisis assessment, however declined assessment stating that she was going to follow-up with her PCP and look for an outpatient therapist. Per this writers conversation with the client she has been hospitalized two different times both times voluntary with the last time being at [facility] about 5 years ago for suicidal ideations and depression. The client reports that she is currently established with outpatient therapist Errol Hutton at [facility] and sees her one time weekly via telehealth. Today the client presents to [facility] ED with passive suicidal ideations and superficial cuts to her left wrist after an argument with her daughter. This underwriter solicitation director assesses the client in person at [facility] ED in room # 9. In the last 2 weeks has the pt presented for ES prior to today?: No Client Information Client is: New Well Housed: Yes Non Suicidal Self Injury Current: Yes, Superficial cuts to left wrist/forearm History: yes, Hx of NSSI via cutting Safety Risk/Harm to Self or Others Current Ideation to Harm Self or Others: Yes to self. (The client is currently endorsing passive suicidal ideations, however denies intent and plan) Intent: no, has no intent. Plan: no.does not have a plan. History of suicide attempt: No history of suicide attempt reported Risk: Does risk to harm exist?: No Risk: Low Risk Asssessment/Mental Status Appearance: Disheveled Attitude: Cooperative Behavior: Unremarkable Speech: Normal Affect: Flat and Cogruent with mood Mood: Sad, Stressed and Depressed Thought process: Unremarkable Hallucinations: No Delusions: No Attention: Unremarkable Perception: Not impaired Orientation: Fully orientated Memory: Intact Insight: Fair Judgement: Fair Neurovegetative Symptoms Sleep: No change Appetitie: Decrease (the client reports poor appetite stating that she has not felt like eating much ) Interests: Decrease Energy: Decrease Libido: Not applicable Substance Use: Do you use nicotine?: No Have you used substances in the last 7 days?: yes, The client reports that she uses marijuana daily before bed to help with sleep. Additional Issues: Assaultive/Threatening Behavior: No Medical Concerns: Yes Client engaged in active self harm w/weapon: No Threatening to run away: No Child reported abuse/neglect: No Voluntarily presenting for services: Yes Domestic violence is a concern: No Extreme Psychosis or extreme behavior is present: No Impression The client is a 38 y/o female that resides in [place], [place] with her boyfriend and two children. The client is currently unemployed due to multiple medical issues and is in the process of re-applying for disability services. The client identifies as female and uses she/her pronouns. The client completes all screening tools and all under represented categories are honored during this assessment. This underwriter solicitation director did not initiate CAMS during this interaction as this underwriter solicitation director did not feel like it was appropriate. The client presents with symptoms most congruent to major depressive disorder as evidenced by self-report, tearfulness, loss of appetite, decrease in interest and energy level as well as feelings of worthlessness and hopelessness. The client presents sitting up on hospital bed dressed in proper paper hospital attire when this underwriter solicitation director arrives in person. The client reports that she got into a verbal altercation with her 14 y/o daughter last night which continued into today. The client reports today: I felt completely empty, but then I realized that my children need me even though I was not feeling wanted and needed. The client reports passive suicidal ideations, however denies intent or plan during assessment. The client reports to this underwriter solicitation director that she cuts to release the emotional pain not in an attempt to end her life. This underwriter solicitation director and the client discuss alternatives to cutting such as putting a ice cube in hand to distract mind or a tight hair tie or rubber band on wrist that can be constantly snapped. The client is agreeable to this feedback and reports that she is going to attempt one of those options instead of cutting. Resources Reosurces reviewed and given:: [id number] and [facility] (Referral for medication management and case management) Plan/Disposition Recommended Disposition: PCP/Office visit, [facility] Services [facility] Services: Psychiatric Evaluation and Other (case management) and Community resources (Community connections). Plan: This underwriter solicitation director and the client discuss least restrictive options and the client reports that she feels safe to return home. Pro-active safety plan created with the client and the client is provided with a copy as well as [facility] staff. The client will check-in with [facility] ES on 03/29 @ 12p. The client will also either attend in person or via telehealth follow-up appointment with this underwriter solicitation director at 10a on Saturday03/30/24. This underwriter solicitation director provides the client with information on the front porch and the client report that she is going to go and check it out this week. The client is also provided with contact information for [facility] and [facility] and is encouraged to outreach when further support is needed. Person reported agreement to plan: Yes Reports/communication Outcome discussed with: ED/Personnel (Verbal passover given to ED provider)
== END 2024-03-28 18:04 | disposition home or self-care (01) ==
PROVIDERS: Physician Assistant; Emergency Provider Nurse Practitioner Family; PCP Nurse Practitioner Family
DX: S61.512A Laceration without foreign body of left wrist, initial encounter (principal); F32.9 Major depressive disorder, single episode, unspecified; R45.88 Nonsuicidal self-harm
CPT/HCPCS: 00123; 80053; 80307; 81025; 96127; 99284; 80320; 80329; 84443; 85025; 99283

== ENCOUNTER 2024-04-15 15:46 | Outpatient (CLI) | payer MEDICAID, SELFPAY ==
--- NOTE | 2024-04-15 10:15 | DI.RAD_ITS ---
Exam(s) XR KNEE RT 3V AP,LAT,WILFRED EXAM: XR KNEE RT 3V AP,LAT,WILFRED CLINICAL HISTORY: RIGHT KNEE PAIN. TECHNIQUE: 2D digital imaging was performed. Three views. COMPARISON: No exams were available for comparison FINDINGS: BONES: No acute fracture is present. No bony destructive lesion is seen. JOINTS: The knee is normally aligned. No joint effusion is seen. The joint spaces are maintained. T here is minimal spurring at the articular aspect of the patella. Chondrocalcinosis is noted in the m enisci. SOFT TISSUE: Normal. IMPRESSION: Chondrocalcinosis and minimal degenerative change. DATA REPOSITORY: RADIATION DOSE DELIVERED:
--- NOTE | 2024-04-15 10:45 | DI.RAD_ITS ---
Exam(s) XR KNEE LT 3V AP,LAT,WILFRED EXAM: XR KNEE LT 3V AP,LAT,WILFRED CLINICAL HISTORY: left knee pain. TECHNIQUE: 2D digital imaging was performed. Three views. COMPARISON: CR XR KNEE RT 3V AP,LAT,WILFRED from 04/15/2024 FINDINGS: BONES: No acute fracture is present. No bony destructive lesion is seen. JOINTS: The knee is normally aligned. No joint effusion is seen. The joint spaces are maintained. Th ere is mild spurring at the articular aspect of the patella and lateral tibial plateau. SOFT TISSUE: Normal. IMPRESSION: Mild degenerative changes. DATA REPOSITORY: RADIATION DOSE DELIVERED:
== END 2024-04-15 15:47 | disposition home or self-care (01) ==
LOC: DIORS 15:47
PROVIDERS: PCP Nurse Practitioner Family; Visit Provider Student in an Organized Health Care Education/Training Program
DX: M22.2X1 Patellofemoral disorders, right knee; M22.2X2 Patellofemoral disorders, left knee
CPT/HCPCS: 73562

== ENCOUNTER 2024-06-08 02:02 | Outpatient (CLI) | payer MEDICAID, SELFPAY ==
--- NOTE | 2024-06-08 07:15 | DI.MRI_ITS ---
Exam(s) MR LOWER JOINT LT WO EXAM: MR LOWER JOINT LT WO CLINICAL HISTORY: L KNEE PAIN,PATELLOFEMORAL SYNDROME LT KNEE, M22.2X2. TECHNIQUE: Multiplanar multisequence MRI was performed. COMPARISON: CR XR KNEE LT 3V AP,LAT,WILFRED from 04/15/2024 FINDINGS: BONES: There is no fracture or contusion pattern. JOINTS: a small joint effusion is present. Articular cartilage: Patellofemoral joint: There is a 6 millimeter focal defect at the patellar apex extending down to bacilio ne. Mild underlying signal changes in the marrow. Medial femoral tibial joint: Articular cartilage is unremarkable. Lateral femoral tibial joint: Articular cartilage is unremarkable. LIGAMENTS/TENDONS: Anterior Cruciate: Unremarkable. Posterior Cruciate: Unremarkable. Medial Collateral:Unremarkable. Lateral Collateral ligament complex: Unremarkable. Extensor mechanism: Unremarkable. Medial retinaculum: Unremarkable. Lateral retinaculum: Unremarkable. Popliteus: Unremarkable. MENISCI: The medial meniscus is unremarkable. The lateral meniscus is unremarkable. MUSCLES: Unremarkable. SOFT TISSUES: Unremarkable. IMPRESSION: Focal cartilage defect at the patellar apex extending down to bone. DATA REPOSITORY:
--- NOTE | 2024-06-08 07:15 | DI.MRI_ITS ---
Exam(s) MR LOWER JOINT RT WO EXAM: MR LOWER JOINT RT WO CLINICAL HISTORY: R KNEE PAIN,PATELLOFEMORAL SYNDROME RT KNEE, M22.2X1. TECHNIQUE: Multiplanar multisequence MRI was performed. COMPARISON: CR XR KNEE LT 3V AP,LAT,WILFRED from 04/15/2024 CR XR KNEE RT 3V AP,LAT,WILFRED from 04/15/2024 FINDINGS: BONES: There is no fracture or contusion pattern. JOINTS: A tiny joint effusion is present. Articular cartilage: Patellofemoral joint: Mild thinning of the cartilage of the medial patellar facet and apex. Medial femoral tibial joint: Articular cartilage is unremarkable. Lateral femoral tibial joint: Articular cartilage is unremarkable. LIGAMENTS/TENDONS: Anterior Cruciate: Unremarkable. Posterior Cruciate: Unremarkable. Medial Collateral:Unremarkable. Lateral Collateral ligament complex: Unremarkable. Extensor mechanism: Unremarkable. Medial retinaculum: Unremarkable. Lateral retinaculum: Unremarkable. Popliteus: Unremarkable. MENISCI: The medial meniscus is unremarkable. The lateral meniscus is unremarkable. MUSCLES: Unremarkable. SOFT TISSUES: Unremarkable. IMPRESSION: Cartilage thinning of the medial patellar facet and apex. No focal defect. DATA REPOSITORY:
== END 2024-06-08 02:22 ==
LOC: DI 02:02
PROVIDERS: PCP Nurse Practitioner Family; Visit Provider Student in an Organized Health Care Education/Training Program
DX: M22.2X2 Patellofemoral disorders, left knee (principal); M22.2X1 Patellofemoral disorders, right knee
CPT/HCPCS: 73721

== ENCOUNTER 2024-07-27 13:41 | Emergency (ER) | payer MEDICAID, SELFPAY ==
[2024-07-27 13:44] VITALS: BP 142/98; PULSE 12; RESP 96; TEMP 36.3; O2SAT 98
--- NOTE | 2024-07-27 14:00 | DI.RAD_ITS ---
Exam(s) XR CERVICAL SP KELLY TRAUMA 2-3V EXAM: XR CERVICAL SP KELLY TRAUMA 2-3V CLINICAL HISTORY: 1 year post-cervical fusion, felt pop and pain. TECHNIQUE: 2D digital imaging was performed. Three views. COMPARISON: CR,XR XR CERVICAL SP KELLY TRAUMA 2-3V from 11/12/[address] CERVICAL SPINE WO from 09/15/2023 FINDINGS: BONES: No fracture or destructive lesion. Posterior fusion with hardware extending from C5 through T 1. No abnormal surrounding lucencies to suggest loosening. One of the inferior pedicle screws show s a fracture in its midportion. This was not present on the prior CT. There is congenital nonunion of the posterior arch of C1. Sternal wires are present. DISKS: Mild narrowing of the C5-6 and C 6 7 disc spaces. The remaining intervertebral disc spaces ar e maintained. There are also degenerative changes of the facet joints. ALIGNMENT: Straightening of the normal cervical lordosis. The odontoid and atlantoaxial articulation s are normal. SOFT TISSUE: Normal. The lung apices are clear. IMPRESSION: Posterior fusion hardware from C5 through T1. Fracture of the 1 of the inferior pedicle screws. The preliminary [facility] report was reviewed. DATA REPOSITORY: RADIATION DOSE DELIVERED:
--- NOTE | 2024-07-27 14:16 | ED.GENADUL_ITS ---
Discharge Plan Disposition Patient Disposition: Home Condition: Stable Discharge Details Clinical Impression: Painful orthopaedic hardware, S/P cervical spinal fusion Primary Care Provider: Lilian Julien ED Provider: Aundrea Thompson Home Meds and New Rx's Prescriptions: No Action Zyrtec 10 mg capsule 10 mg PO DAILY PRN (Reason: allergy symptoms) Qty: 30 0RF fluticasone propionate [Flonase Allergy Relief] 50 mcg/actuation spray,suspension 1 spray intranasal DAILY Qty: 16 0RF Rx Instructions: administer into each nostril until symptoms resolve nortriptyline 50 mg capsule 50 mg PO QHS cholecalciferol (vitamin D3) 50 mcg (2,000 unit) capsule 2,000 unit PO DAILY Patient Comments: 1 capsule by mouth once a day After 8 weeks of D50,000U, take 1 cap of 2,000U daily clobazam 10 mg tablet 10 mg PO DAILY Patient Comments: 4/5/24-10mg am, 30mg at night albuterol sulfate 90 mcg/actuation aerosol powdr breath activated 1 inh IH Q4H PRN (Reason: shortness of breath or wheezing) 14 Days Qty: 1 0RF omeprazole 40 mg capsule,delayed release(DR/EC) 40 mg PO DAILY Patient Comments: TAKE ONE CAPSULE BY MOUTH EVERY DAY ONE HOUR PRIOR TO BED naproxen 500 mg tablet 250 mg PO BID Patient Comments: TAKE ONE TABLET BY MOUTH TWICE A DAY WITH MEALS tizanidine 4 mg tablet 4 mg PO BID PRN Patient Comments: START BY TAKING 1 TABLET BY MOUTH EVERY 8 TO 12 HOURS. MAY INCREASE UP TO 2 TABLETS EVERY 8 HOURS NEEDED FOR A MAXIMUM OF 6 TABLETS PER D aspirin 81 mg tablet,chewable 81 mg PO DAILY Patient Comments: Take 1 tablet by mouth once a day gabapentin 300 mg capsule 600 mg PO TID Patient Comments: TAKE ONE CAPSULE BY MOUTH TWICE A DAY lisinopril 10 mg tablet 10 mg PO BID Patient Comments: TAKE ONE TABLET BY MOUTH EVERY DAY magnesium oxide 250 mg magnesium tablet 250 mg PO BID Patient Comments: TAKE ONE TABLET BY MOUTH TWICE A DAY riboflavin (vitamin B2) [Vitamin B-2] 100 mg tablet 100 mg PO DAILY Patient Comments: TAKE TWO TABLETS BY MOUTH TWICE A DAY Discharge Instructions Instructions: Managing acute pain at home Additional Instructions: You were seen in the emergency department today for evaluation of neck pain after you felt a pop, and were found to have a fracture of one of your orthopedic screws. Reassuringly, the area is without evidence of fracture or instability, but orthopedics recommends that you wear the hard collar again to protect the area from becoming unstable. Additionally, you will follow-up with them and they will reach out to help you schedule this appointment. Please continue all of your home medications for pain, I have provided you with a short course of oral narcotics to be taken for breakthrough pain. While wearing the hard collar and taking narcotics you should not drive or operate heavy machinery. please follow-up with your primary care provider in the next few days to discuss this visit and any symptoms that change, worsen, or persist. Thank you for allowing us to be part of your care. HPI General Mode of arrival: ambulatory . Date/Time Provider Initiated Documentation: 07/27/24 13:50 . Limitations to Documentation: no limitations . Information obtained by: patient and old records reviewed . HPI Narrative: This is a 38-year-old female patient with a past medical history significant for C5-T1 fusion in June 2023, history of hypertension, seizure disorder, asthma, who is presenting for evaluation after she felt a pop in her neck. The patient reports that she was in her normal state of health, was looking down between her phone and up towards the TV, and felt a pop somewhere around the right side of her neck. She had worsening of her pain, and feels a shooting pain running down her right shoulder to the upper aspect of her arm. This feels like a zap or an electric shock, states that she has not had any sensory deficits or new weakness but does have significant limitation in her range of motion due to her pain. She states that she placed her soft cervical collar back on which has helped somewhat. She is presenting because she is concerned for hardware disruption. The patient reports that she has not had fevers or chills, did not sustain trauma and did not undergo any twisting or tilting movements. She takes multimodal pain management to include gabapentin, naproxen, and nortriptyline. She is meeting with the pain management team. Related Data Home Medications ?Medication ?Instructions ?Recorded ?Confirmed albuterol sulfate 90 mcg/actuation 1 inh inhalation Q4H PRN shortness 10/19/21 07/27/24 breath activated powder inhaler of breath or wheezing 2 weeks #1 ea aspirin 81 mg chewable tablet 81 mg PO DAILY 12/28/22 07/27/24 gabapentin 300 mg capsule 600 mg PO TID 12/28/22 07/27/24 lisinopril 10 mg tablet 10 mg PO BID 12/28/22 07/27/24 magnesium oxide 250 mg PO BID 12/28/22 07/27/24 riboflavin (vitamin B2) 100 mg 100 mg PO DAILY 12/28/22 07/27/24 tablet (Vitamin B-2) cholecalciferol (vitamin D3) 50 2,000 unit PO DAILY 02/03/23 07/27/24 mcg (2,000 unit) capsule clobazam 10 mg tablet 10 mg PO DAILY 06/07/23 07/27/24 omeprazole 40 mg capsule,delayed 40 mg PO DAILY 01/06/24 07/27/24 release naproxen 500 mg tablet 250 mg PO BID 02/08/24 07/27/24 tizanidine 4 mg tablet 4 mg PO BID PRN 03/28/24 07/27/24 cetirizine 10 mg capsule (Zyrtec) 10 mg PO DAILY PRN allergy 04/06/24 07/27/24 symptoms #30 caps fluticasone propionate 50 1 spray intranasal DAILY #16 grams 04/06/24 07/27/24 mcg/actuation nasal spray,suspension (Flonase Allergy Relief) nortriptyline 50 mg capsule 50 mg PO QHS 04/15/24 07/27/24 Previous Rx's ?Medication ?Instructions ?Recorded albuterol sulfate 90 mcg/actuation 1 inh inhalation Q4H PRN shortness 10/19/21 breath activated powder inhaler of breath or wheezing 2 weeks #1 ea cetirizine 10 mg capsule (Zyrtec) 10 mg PO DAILY PRN allergy 04/06/24 symptoms #30 caps fluticasone propionate 50 1 spray intranasal DAILY #16 grams 04/06/24 mcg/actuation nasal spray,suspension (Flonase Allergy Relief) Allergies Allergy/AdvReac Type Severity Reaction Status Date / Time levetiracetam (From Keppra) Allergy Intermediate severe Verified 07/27/24 13:55 anxiety divalproex sodium (From AdvReac Mild weight gain Unverified 07/27/24 13:54 Depakote) General Stated Complaint: Orthopedic GM: 3 Exam Narrative Exam Narrative: Gen: Awake and alert, in no apparent distress HEENT: Non-icteric sclera Neck: In the soft cervical collar, patient with tenderness to palpation over the right paraspinal muscles primarily, some tenderness over the midline. Her incision is well-healed and approximated, I note no overlying skin changes, such as redness, swelling, fluctuance or induration. Range of motion deferred given the possibility for injury Lungs: No apparent respiratory distress, normal respiratory effort. CV: Appears well perfused Abdomen: Non-distended MSK: Moves 4 extremities without apparent limitation in ROM. The patient has limitation in range of motion of her shoulders, right greater than left, largely due to pain. Symmetrical strength and sensation otherwise to the bilateral upper extremities. Skin: Visualized skin without rashes, cyanosis. Neuro: Normal Gait, no obvious focal deficits or facial asymmetry. Speaks in full, clear sentences. Psych: Appropriate for situation. Course Vital Signs Vital signs: Vital Signs Temperature 36.3 C L 07/27/24 13:44 Pulse 12 L 07/27/24 13:44 Respiratory Rate 96 H 07/27/24 13:44 Blood Pressure 142/98 H 07/27/24 13:44 Pulse Oximetry 98 07/27/24 13:44 Temperature 36.3 C L 07/27/24 13:44 Temperature Source Oral 07/27/24 13:44 Pulse 12 L 07/27/24 13:44 Respiratory Rate 96 H 07/27/24 13:44 Blood Pressure 142/98 H 07/27/24 13:44 Pulse Oximetry 98 07/27/24 13:44 Oxygen Delivery Method Room Air 07/27/24 13:44 Oxygen Flow Rate 0 07/27/24 13:44 Pain Level 8 07/27/24 13:44 Medical Decision Making This is a 38-year-old female patient presenting for evaluation after she heard a pop in her neck. Differentials include but are not limited to hardware disruption, certainly considered low velocity fracture, dislocation, sprain or strain. The patient has no fever, skin changes, and the duration of time since the surgery reassures me against infectious etiology such as osteomyelitis, discitis, or spinal epidural abscess. I considered disc protrusion, stenosis, spinal nerve root compression. Reassuringly, the patient's neuro examination is intact. The patient will undergo x-ray imaging to evaluate for changes to explain her symptoms. -I reviewed the x-ray imaging and discussed the patient's case with the radiologist. She has evidence of a fracture of the T1 pedicle screw that is new from prior imaging. In the context of her feeling a pop I suspect that the fracture occurred during her flexion and extension today. I reached out to [facility] orthospine, and did provide the patient with a dose of oral narcotic which alleviated her pain somewhat. They recommend close outpatient follow-up given its relatively stable appearance, and lack of periprosthetic fracture. They recommended placing the patient in a hard cervical collar, which was provided here in the emergency department as the patient's old Juanito Thrasher is missing some pieces now. I provided her with a take-home pack of oral morphine for her breakthrough pain, and at this time, the patient has had a full medical evaluation and is safe for discharge to home. They are hemodynamically stable, ambulatory, and tolerating PO. They are understanding of the follow-up plan and return precautions. They left our facility without incident. Aundrea Thompson MD Quality:[facility] Health Related Social Needs: No Data to Display PFSH All Active Problems (Updated 07/27/24 @ 17:12 by Aundrea Thompson MD) S/P cervical spinal fusion (Acute) Painful orthopaedic hardware (Acute) Chondromalacia of both patellae (Acute) Bilateral patellofemoral syndrome (Acute) Sciatica (Acute) 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 Fibromyalgia (Chronic) Treated with marijuana. Patient does not have a medical marijuana card Asthma (Chronic) Hyperlipidemia (Chronic) Migraine headache (Chronic) Depression (Chronic) Hypertension (Chronic) Generalized tonic-clonic seizure (Chronic) Onset 28 years old. Last seizure 2018. [place]rolog[place] [facility] [place] pain, bilateral (Chronic) Medical History Abnormal Pap smear of cervix Apr 2023: ASCUS/HPV+ ->colp: benign appearing Oct 2016: Normal/neg Tremor of both hands secondary to Depakote, per pt. Grand mal seizure disorder Last seizure August 2018. 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 Has routine cardiology follow-up Dr. Bonnie sher in [place]. Pt. 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
--- NOTE | 2024-07-27 16:04 | DI.[facility]_ITS ---
Addendum created by Marin Jeffries MD on 07/27/2024 4:04:58 PM EDT: Addendum: Results are discussed with the ordering physician, Dr. Tang Thompson, on July 27, 2024 at 12:55 p.m. [facility]. Dr. Thompson had already reviewed of the images and identified the pedicle screw fracture. Initial report created on 07/27/2024 4:03:51 PM EDT: PROCEDURE INFORMATION: Exam: XR Cervical Spine Exam date and time: 07/27/2024 3:02 PM Age: 38 years old Clinical indication: Neck pain; Prior surgery; Surgery date: 6+ months; Surgery type: 1 year post-cervical fusion; [place] pop and pain; Additional info: 1 year post-cervical fusion, felt pop and pain TECHNIQUE: Imaging protocol: Radiologic exam of the cervical spine. Views: 2 or 3 views. COMPARISON: CT CERVICAL SPINE WO 09/15/2023 7:05 PM FINDINGS: Bones/joints: The examination consists of an AP, lateral and open-mouth projection of the cervical spine. The patient has had prior posterior fixation extending from the C 5 through the T1 level. Bilateral pedicle screws are present at the C5, C6 and T1 levels. The most inferior pedicle screw that appears to be the right-sided pedicle screw at the T1 level is fractured in its midportion within the pedicle. There is no gross surrounding lucency of the bone that would prove chronic loosening. There is overall normal alignment of the cervical spine. There is degenerative change principally at the C 5-6 and C6-C7 levels. The patient had a prior cervical spine CT scan on 09/15/2023 that did not show an obvious pedicle screw fracture. Incidentally noted on the prior CT scan are ununited anterior and posterior arches of C1, normal variations. These are visualized on the AP projection in the open-mouth projection Soft tissues: The prevertebral soft tissues are normal. IMPRESSION: 1. Prior posterior fixation extending from C5 through T1 with a fracture of one of the T1 pedicle screws that appears to be the right-sided screw. There is no bony fracture or malalignment identified. 2. The prevertebral soft tissues are normal. Dictated and Authenticated by: Marin Jeffries MD. Orderin [facility]. Eren Guillaume MD
[2024-07-27] MEDS: MORPHine IR 15 MG TAB PO (16:13)
[2024-07-27 16:16] VITALS: BP 168/108; PULSE 85; RESP 16; O2SAT 98
[2024-07-27] MEDS: MORPHine IR 15 MG TAB 60 MG PO (17:33)
[2024-07-27 17:34] VITALS: BP 144/109; PULSE 64; RESP 18; TEMP 36.6; O2SAT 99
== END 2024-07-27 17:35 | disposition home or self-care (01) ==
PROVIDERS: Emergency Provider Emergency Medicine; PCP Nurse Practitioner Family
DX: T84.216A Breakdown (mechanical) of internal fixation device of vertebrae, initial encounter (principal); I10 Essential (primary) hypertension; Z98.1 Arthrodesis status; Z79.82 Long term (current) use of aspirin
CPT/HCPCS: 99283; 72040

== ENCOUNTER 2024-08-21 14:53 | Outpatient (REF) | payer MEDICAID, SELFPAY ==
[2024-08-21 14:56] LABS: HCT 40.4 % (36.0-46.0); HGB 13.7 g/dL (11.2-15.7); MCH 29.5 pg (27.0-33.0); MCHC 33.9 % (32.0-36.0); MCV 87 fL (80-95); Platelet Count 368 10^3/uL (130-400); RBC 4.64 10^6/uL (3.93-5.22); RDW 11.6 % (11.7-14.6); RDW-SD 36.8 fL
[2024-08-21 15:36] LABS: ALT 46 U/L (14-59); AST 28 U/L (15-37); Albumin 4.1 g/dL (3.4-5.0); Alkaline Phosphatase 47 U/L (46-116); Anion Gap 8.7 mmol/L (3-11); BUN 15 mg/dL (7-18); Bilirubin, Total 0.4 mg/dL (0.2-1.0); CO2 26.3 mmol/L (21.0-32.0); CREATININE 0.8 mg/dL (0.55-1.02); Calcium 9.2 mg/dL (8.5-10.1); Calculated LDL 127 mg/dL (<100); Chloride 102 mmol/L (98-107); Cholesterol 226 mg/dL (<200); Estimated GFR 95.46 (mL/min/1.73m2); Glucose 100 mg/dL (74-106); HDL Cholesterol 61 mg/dL (>or=50); Potassium 4.7 mmol/L (3.5-5.1); Sodium 137 mmol/L (136-145); Total Protein 7.8 g/dL (6.4-8.2); Triglyceride 190 mg/dL (<150)
== END 2024-08-21 14:54 | disposition home or self-care (01) ==
LOC: NCHCN 14:53
PROVIDERS: PCP Nurse Practitioner Family; Visit Provider Physician Assistant
DX: I47.10 Supraventricular tachycardia, unspecified (principal); E78.5 Hyperlipidemia, unspecified; M79.2 Neuralgia and neuritis, unspecified
CPT/HCPCS: 80053; 80061; 85027

== ENCOUNTER 2024-10-02 11:57 | Outpatient (REF) | payer MEDICAID, SELFPAY ==
--- NOTE | 2024-10-02 11:00 | PAPFT_PTH ---
PATIENT: Bessie Chacon LOC: N U#:[id number] AGE/SX: 38/F ROOM: RE10/02/[address]: Justine Noonan MD : [id number] BED: DIS: 10/02/2024 SPEC #: [id number] RECD: 10/02/24 16:34 STATUS: TERI REOxana #: [id number] FROILAN: 10/02/24 11:[address]: Justine Noonan DEPT: [facility] Cytology RECD BY: Maria Del Carmen Souza ENTERED: 10/02/24 16:35 SP TYPE: PAPFT OTHR DR: JORDY Wharton Tissues: 1 - CX/ENDOCX FOR PAP SMEARS Procedures: PAP THIN PREP/[facility] Screening HPV DNA PROBE Comments: [id number] (HPV 16 & 18/45)
== END 2024-10-02 11:58 | disposition home or self-care (01) ==
LOC: LBN 11:57
PROVIDERS: PCP Physician Assistant; Visit Provider Obstetrics & Gynecology
DX: Z12.4 Encounter for screening for malignant neoplasm of cervix (principal)
CPT/HCPCS: 88142; 87624

== ENCOUNTER 2024-10-20 02:00 | Emergency (ER) | payer MEDICAID, SELFPAY ==
[2024-10-20 02:03] VITALS: BP 169/94; PULSE 87; RESP 18; TEMP 36.7; O2SAT 94
--- NOTE | 2024-10-20 02:03 | W.ED.GENAD ---
Discharge Plan Disposition Patient Disposition: Home Condition: Good Discharge Details Clinical Impression: Chronic pain Primary Care Provider: Duane Ferrari ED Provider: Peter Elias Webb Meds and New Rx's Prescriptions: Continued Zyrtec 10 mg capsule 10 mg PO DAILY PRN (Reason: allergy symptoms) Qty: 30 0RF fluticasone propionate [Flonase Allergy Relief] 50 mcg/actuation spray,suspension 1 spray intranasal DAILY Qty: 16 0RF Rx Instructions: administer into each nostril until symptoms resolve oxycodone-acetaminophen [Percocet] 5-325 mg tablet 1 tab PO .COMPLEX PRN Rx Instructions: 1 tab orally TWICE PER WEEK PRN; atorvastatin [Lipitor] 20 mg tablet 20 mg PO DAILY lacosamide 100 mg tablet 100 mg PO BID Patient Comments: TAKE ONE TABLET BY MOUTH TWICE A DAY nortriptyline 50 mg capsule 25 mg PO QHS cholecalciferol (vitamin D3) 50 mcg (2,000 unit) capsule 2,000 unit PO DAILY Patient Comments: 1 capsule by mouth once a day After 8 weeks of D50,000U, take 1 cap of 2,000U daily clobazam 10 mg tablet 10 mg PO BID Patient Comments: 4/5/24-10mg am, 30mg at night albuterol sulfate 90 mcg/actuation aerosol powdr breath activated 1 inh IH Q4H PRN (Reason: shortness of breath or wheezing) 14 Days Qty: 1 0RF omeprazole 40 mg capsule,delayed release(DR/EC) 40 mg PO DAILY Patient Comments: TAKE ONE CAPSULE BY MOUTH EVERY DAY ONE HOUR PRIOR TO BED naproxen 500 mg tablet 500 mg PO BID Patient Comments: TAKE ONE TABLET BY MOUTH TWICE A DAY WITH MEALS aspirin 81 mg tablet,chewable 81 mg PO DAILY Patient Comments: Take 1 tablet by mouth once a day gabapentin 300 mg capsule 600 mg PO TID Patient Comments: TAKE ONE CAPSULE BY MOUTH TWICE A DAY magnesium oxide 250 mg magnesium tablet 250 mg PO BID Patient Comments: TAKE ONE TABLET BY MOUTH TWICE A DAY lisinopril 10 mg tablet 10 mg PO DAILY Patient Comments: TAKE ONE TABLET BY MOUTH EVERY DAY riboflavin (vitamin B2) [Vitamin B-2] 100 mg tablet 200 mg PO BID Patient Comments: TAKE TWO TABLETS BY MOUTH TWICE A DAY Discharge Instructions Additional Instructions: Unfortunately, the ED is not equipped to manage chronic pain. You were given and injection of morphine for relief tonight but will need to follow up with PCP for further management. I do think that starting PT as discussed with ortho is a good idea. You could also discuss with your PCP whether referral to the pain clinic here is an option. Referrals: Duane Ferrari PA [Primary Care Provider, Medicine] HPI General Mode of arrival: ambulatory. Date/Time Provider Initiated Documentation: 10/20/24 02:03. Limitations to Documentation: no limitations. Information obtained by: patient, RN notes reviewed and old records reviewed. HPI Narrative: Patient presents to ED with complaint of bilateral hip and knee pain which is not new it has been a chronic problem including for years. She is followed by primary care as well as by the orthopedic clinic here. There is no new injury to explain her increased pain. She is simply more pain. Unable to sleep tonight prompting her to come into the ED for relief. She is on naproxen as well as oxycodone with acetaminophen both of which she took tonight. Per patient and orthopedic notes pain was thought to be related to iliotibial band syndrome and she has been referred to PT. She has been trying to put this off. Related Data Home Medications ?Medication ?Instructions ?Recorded ?Confirmed albuterol sulfate 90 mcg/actuation 1 inh inhalation Q4H PRN shortness 10/19/21 10/20/24 breath activated powder inhaler of breath or wheezing 2 weeks #1 ea aspirin 81 mg chewable tablet 81 mg PO DAILY 12/28/22 10/20/24 gabapentin 300 mg capsule 600 mg PO TID 12/28/22 10/20/24 magnesium oxide 250 mg PO BID 12/28/22 10/20/24 cholecalciferol (vitamin D3) 50 2,000 unit PO DAILY 02/03/23 10/20/24 mcg (2,000 unit) capsule omeprazole 40 mg capsule,delayed 40 mg PO DAILY 01/06/24 10/20/24 release naproxen 500 mg tablet 500 mg PO BID 02/08/24 10/20/24 cetirizine 10 mg capsule (Zyrtec) 10 mg PO DAILY PRN allergy 04/06/24 10/20/24 symptoms #30 caps fluticasone propionate 50 1 spray intranasal DAILY #16 grams 04/06/24 10/20/24 mcg/actuation nasal spray,suspension (Flonase Allergy Relief) lisinopril 10 mg tablet 10 mg PO DAILY 08/24/24 10/20/24 nortriptyline 50 mg capsule 25 mg PO QHS 08/24/24 10/20/24 oxycodone-acetaminophen 5 mg-325 1 tab PO .COMPLEX PRN 08/24/24 10/20/24 mg tablet (Percocet) atorvastatin 20 mg tablet (Lipitor) 20 mg PO DAILY Cholesterol 10/02/24 10/20/24 clobazam 10 mg tablet 10 mg PO BID 10/02/24 10/20/24 lacosamide 100 mg tablet 100 mg PO BID 10/02/24 10/20/24 riboflavin (vitamin B2) 100 mg 200 mg PO BID 10/02/24 10/20/24 tablet (Vitamin B-2) Previous Rx's ?Medication ?Instructions ?Recorded albuterol sulfate 90 mcg/actuation 1 inh inhalation Q4H PRN shortness 10/19/21 breath activated powder inhaler of breath or wheezing 2 weeks #1 ea cetirizine 10 mg capsule (Zyrtec) 10 mg PO DAILY PRN allergy 04/06/24 symptoms #30 caps fluticasone propionate 50 1 spray intranasal DAILY #16 grams 04/06/24 mcg/actuation nasal spray,suspension (Flonase Allergy Relief) Allergies Allergy/AdvReac Type Severity Reaction Status Date / Time levetiracetam (From Keppra) Allergy Intermediate severe Verified 10/20/24 02:09 anxiety divalproex sodium (From AdvReac Mild weight gain Unverified 10/20/24 02:09 Depakote) General GM: 3 Exam Narrative Exam Narrative: Const: WDWN female in NAD. VS per triage. HEENT: NC/AT. Normal facial exam. Neck: Supple. Trachea midline. Lungs: Normal respiratory effort. Neuro: A+O x 3. Normal speech, mentation, gait. Cranial nerves II - XII grossly intact. No gross motor or sensory deficit. Ext: No C/C/E. Decent ROM of LE and back. Normal pulse, strength, sensation in LE. Medical Decision Making Patient presenting to ED with acute exacerbation of chronic pain involving both hips and both knees. She is followed by PCP as well as the orthopedic clinic here. She has been referred to physical therapy but has been putting this off. Currently managed with naproxen and oxycodone/acetaminophen which she did take tonight. Still unable to sleep and unable to cope with the pain prompting ED visit. I have explained to her that management of chronic pain is not done well in the emergency department. I can provide temporary relief with tonight with an IM dose of morphine. Cannot provide any prescriptions. I did encourage going to physical therapy. Also encouraged discussion with her primary care regarding the appropriateness of a pain management consult. Patient does have a ride home and was given an IM injection of morphine prior to discharge. Medical Records Medical records reviewed: Yes I reviewed the patient's medical records. [facility] All Active Problems Chronic pain (Chronic) Iliotibial band friction syndrome of both knees (Acute) Injection left: 08/24/2024 Chondromalacia of both patellae (Acute) Bilateral patellofemoral syndrome (Acute) Sciatica (Acute) 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 Fibromyalgia (Chronic) Treated with marijuana. Patient does not have a medical marijuana card Asthma (Chronic) Hyperlipidemia (Chronic) Migraine headache (Chronic) Depression (Chronic) Hypertension (Chronic) Generalized tonic-clonic seizure (Chronic) Onset 28 years old. Last seizure 2018. Neurologist at [facility] Knee pain, bilateral (Chronic) Medical History Abnormal Pap smear of cervix Apr 2023: ASCUS/HPV+ ->colp: benign appearing Oct 2016: Normal/neg Tremor of both hands secondary to Depakote, per pt. Grand mal seizure disorder Last seizure August 2018. 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 Has routine cardiology follow-up Dr. Rai in [place]. Pt. 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
[2024-10-20] MEDS: MORPHine 10 MG/ML VIAL 6 MG IM (02:23)
== END 2024-10-20 02:41 | disposition home or self-care (01) ==
LOC: ER 02:30
PROVIDERS: Emergency Provider Emergency Medicine; PCP Physician Assistant
DX: M25.561 Pain in right knee (principal); M25.562 Pain in left knee; M25.551 Pain in right hip; M25.552 Pain in left hip; G89.29 Other chronic pain
CPT/HCPCS: 99284 ×2; 96372; J2270

== ENCOUNTER 2024-10-23 01:10 | Outpatient (CLI) | payer MEDICAID, SELFPAY ==
--- NOTE | 2024-10-23 06:00 | DI.MAMMO_ITS ---
Exam(s) MAMMO SCREENING EXAM: MAMMO SCREENING CLINICAL HISTORY: screening, Z12.31. TECHNIQUE: Bilateral full field digital CC and MLO mammographic images were obtained with 3D tomosynthesis and utilizing computer aided detection (CAD). COMPARISON: None. This is a baseline mammogram on a 38-year-old patient. FINDINGS: The fibroglandular tissue pattern is moderately dense, this somewhat decreasing the sensitivity of the mammogram for finding hidden underlying lesions. In the left breast there is a subtle suggestion of a nodular density located 6 cm in from the nipple on the MLO view and measuring approximately 8 by 6 mm. Further imaging recommended. In the opposite-right breast there is also suggestion of an asymmetric density- possible nodule measuring 8 by 6 mm, located 7 cm in from the nipple towards the upper outer quadrant on the MLO view. Also asymmetric density on the right CC view which probably corresponds to the same finding. There are benign-appearing microcalcifications in both breasts. There is no significant architectural distortion nor skin thickening-retraction. IMPRESSION: Moderate dense bilateral fibroglandular tissue. Suggestion of by lateral nodules as described above. Recommend further imaging with spot compression MLO view of the left breast and spot compression CC and MLO views of the right breast and bilateral complete breast ultrasound. BI-RADS Category 0 - Incomplete: Need additional imaging evaluation Breast Density - Category C - The breast are heterogeneously dense, which may obscure small masses. Breast density Category C or D implies that the patient has dense breast tissue. Dense breast tissue can make it harder to find cancer on a mammogram. Dense breast tissue is also associated with an increased risk of breast cancer. This information about the result of the mammogram report was provided to the patient to raise their awareness. Use this report when you speak with the patient about their risks for breast cancer, which includes their family history. At that time, you may recommend additional screening tests (Ultrasound or MRI) as these tests may add significant information. A negative radiographic report should not delay biopsy if a dominant or clinically suspicious mass is present. Up to ten percent of cancers are not identified on mammography. A negative report may reinforce clinical impression. Adenosis and dense breasts may obscure an underlying neoplasm. False positive reports average 6 to 10%. Patient will receive a letter notifying them of these results.
== END 2024-10-23 01:30 ==
PROVIDERS: PCP Physician Assistant; Visit Provider Obstetrics & Gynecology
DX: Z12.31 Encounter for screening mammogram for malignant neoplasm of breast (principal); R92.333 Mammographic heterogeneous density, bilateral breasts
CPT/HCPCS: 77063; 77067

== ENCOUNTER 2024-10-30 00:29 | Outpatient (CLI) | payer MEDICAID, SELFPAY ==
--- NOTE | 2024-10-30 | DI.MAMMO_ITS ---
Exam(s) US BREAST LT COMPLETE US BREAST RT COMPLETE MG MAMMO SCREEN CALL BACK BI EXAM: MG MAMMO SCREEN CALL BACK BI AND COMPLETE BILATERAL BREAST ULTRASOUND CLINICAL HISTORY: F/U MAMMO, R92.8,DENSE FIBROGLANDULAR TISSUE,BILAT NODULES. TECHNIQUE: BILATERAL spot mammographic images obtained with 3D tomosynthesisand utilizing computer aided detection (CAD). . Complete BILATERAL breast Ultrasound was also performed, including all 4 quadrants, the retroareolar region, and the ipsilateral axilla. COMPARISON: Prior mammograms were reviewed. This additional imaging was performed due to findings described on the recent BASELINE screening mammogram of 10/23/2024. FINDINGS: DIAGNOSTIC MAMMOGRAM: Additional BILATERAL mammographic views performed todayrender the previously described areas of both last less concerning. COMPLETE BILATERAL BREAST ULTRASOUND: Ultrasound performed today reveals no evidence of solid or significant cystic lesions in all 4 quadrants of both breasts.. Scanning of the ipsilateral axilla reveals no significant adenopathy. IMPRESSION: 1. No radiographic evidence of malignancy. 2. Negative complete bilateral breast ultrasound Appropriate follow-up is to keep this patient on a yearly mammogram schedule, with earlier imaging if a self detected breast change is noted.. The patient was informed of these findings and recommendations by myself prior to leaving the department today. BI-RADS Category 2 - Benign Findings Breast Density - Category C - The breast are heterogeneously dense, which may obscure small masses. Breast density Category C or D implies that the patient has dense breast tissue. Dense breast tissue can make it harder to find cancer on a mammogram. Dense breast tissue is also associated with an increased risk of breast cancer. This information about the result of the mammogram report was provided to the patient to raise their awareness. Use this report when you speak with the patient about their risks for breast cancer, which includes their family history. At that time, you may recommend additional screening tests (Ultrasound or MRI) as these tests may add significant information. A negative radiographic report should not delay biopsy if a dominant or clinically suspicious mass is present. Up to ten percent of cancers are not identified on mammography. A negative report may reinforce clinical impression. Adenosis and dense breasts may obscure an underlying neoplasm. False positive reports average 6 to 10%. Patient will receive a letter notifying them of these results.
== END 2024-10-30 00:49 ==
LOC: DI 00:29
PROVIDERS: PCP Physician Assistant; Visit Provider Obstetrics & Gynecology
DX: Z12.31 Encounter for screening mammogram for malignant neoplasm of breast (principal); R92.8 Other abnormal and inconclusive findings on diagnostic imaging of breast
CPT/HCPCS: 76642; 77063; 77067

== ENCOUNTER 2024-11-06 11:46 | Outpatient (REF) | payer MEDICAID, SELFPAY ==
--- NOTE | 2024-11-06 09:50 | CER_PTH ---
PATIENT: Bessie Chacon LOC: [facility] U#:[id number] AGE/SX: 39/F ROOM: RE11/06/[address]: Justine Noonan MD : [id number] BED: DIS: 11/06/2024 SPEC #: [id number] RECD: 11/06/24 13:41 STATUS: TERI REQ #: [id number] FROILAN: 11/06/24 09:[address]: Justine Noonan DEPT: Surgical Specimen RECD BY: Jennifer Renee ENTERED: 11/06/24 13:43 SP TYPE: CER OTHR DR: JORDY Wharton Tissues: 1 - CERVICAL BIOPSY Procedures: GROSS AND MICRO LEVEL 4 Comments: [id number]
== END 2024-11-06 11:47 | disposition home or self-care (01) ==
LOC: LBN 11:46
PROVIDERS: PCP Physician Assistant; Visit Provider Obstetrics & Gynecology
DX: N72 Inflammatory disease of cervix uteri (principal)
CPT/HCPCS: 88305

== ENCOUNTER 2024-11-21 16:20 | Emergency (ER) | payer MEDICAID, SELFPAY ==
[2024-11-21 16:38] VITALS: BP 136/92; PULSE 92; RESP 18; TEMP 36.6; O2SAT 98
[2024-11-21] MEDS: Metoclopramide 10 MG/2 ML VIAL IVP (17:18)
[2024-11-21] MEDS: diphenhydrAMINE 50 MG/ML VIAL 25 MG IVP (17:18)
[2024-11-21] MEDS: Normal Saline 1,000 ML 1000 ML IV (17:19)
[2024-11-21 17:28] VITALS: BP 136/92; PULSE 92; RESP 18; TEMP 36.6; O2SAT 98
[2024-11-21] MEDS: Normal Saline 50 ML 150 ML (17:32)
--- NOTE | 2024-11-21 19:20 | W.ED.GENAD ---
Discharge Plan Disposition Patient Disposition: Home Condition: Good Discharge Details Clinical Impression: Migraine headache Primary Care Provider: Duane Ferrari ED Provider: Sana Hoskins Home Meds and New Rx's Prescriptions: Continued Zyrtec 10 mg capsule 10 mg PO DAILY PRN (Reason: allergy symptoms) Qty: 30 0RF fluticasone propionate [Flonase Allergy Relief] 50 mcg/actuation spray,suspension 1 spray intranasal DAILY Qty: 16 0RF Rx Instructions: administer into each nostril until symptoms resolve oxycodone-acetaminophen [Percocet] 5-325 mg tablet 1 tab PO .COMPLEX PRN Rx Instructions: 1 tab orally TWICE PER WEEK PRN; atorvastatin [Lipitor] 20 mg tablet 20 mg PO DAILY lacosamide 100 mg tablet 100 mg PO BID Patient Comments: TAKE ONE TABLET BY MOUTH TWICE A DAY nortriptyline 50 mg capsule 25 mg PO QHS cholecalciferol (vitamin D3) 50 mcg (2,000 unit) capsule 2,000 unit PO DAILY Patient Comments: 1 capsule by mouth once a day After 8 weeks of D50,000U, take 1 cap of 2,000U daily clobazam 10 mg tablet 10 mg PO BID Patient Comments: 4/5/24-10mg am, 30mg at night albuterol sulfate 90 mcg/actuation aerosol powdr breath activated 1 inh IH Q4H PRN (Reason: shortness of breath or wheezing) 14 Days Qty: 1 0RF omeprazole 40 mg capsule,delayed release(DR/EC) 40 mg PO DAILY Patient Comments: TAKE ONE CAPSULE BY MOUTH EVERY DAY ONE HOUR PRIOR TO BED naproxen 500 mg tablet 500 mg PO BID Patient Comments: TAKE ONE TABLET BY MOUTH TWICE A DAY WITH MEALS aspirin 81 mg tablet,chewable 81 mg PO DAILY Patient Comments: Take 1 tablet by mouth once a day gabapentin 300 mg capsule 600 mg PO TID Patient Comments: TAKE ONE CAPSULE BY MOUTH TWICE A DAY magnesium oxide 250 mg magnesium tablet 250 mg PO BID Patient Comments: TAKE ONE TABLET BY MOUTH TWICE A DAY lisinopril 10 mg tablet 10 mg PO DAILY Patient Comments: TAKE ONE TABLET BY MOUTH EVERY DAY riboflavin (vitamin B2) [Vitamin B-2] 100 mg tablet 200 mg PO BID Patient Comments: TAKE TWO TABLETS BY MOUTH TWICE A DAY Discharge Instructions Instructions: Migraine in adults Additional Instructions: Please follow-up with your neurologist as scheduled for next month. Your migraine responded well to IV fluids, metoclopramide, and Benadryl. I recommend you take it easy for the next day or two. Stay well-hydrated, drinking plenty of fluids throughout the day. Eat regular meals. Get plenty of rest. Turn to emergency care if you develop new severe/unusual headaches, uncontrollable vomiting, vision changes, balance problems, weakness in your arms or legs, fevers associate with headache, or if you are very concerned they need to be rechecked again immediately. Referrals: Duane Ferrari PA [Primary Care Provider, Medicine] HPI General Date/Time Provider Initiated Documentation: 11/21/24 16:44. HPI Narrative: Bessie is a 39-year-old female who presents to the emergency department today for evaluation of migraine headache. 5 she reports that headache started 3 days ago, initially on and off, today has been constant and severe. She reports that she has a history of grains, but has noted that they have been occurring more frequently (2-3 times weekly) and have been recently frontal and occipital as opposed to just frontal. Usually manages her headaches with riboflavin, magnesium, naproxen. Today headache has not responded to her usual medications, as well as Percocet that she took without improvement of symptoms of the pain. Symptoms currently rated 10 out of 10, reports light sensitivity, sensitive to have some noises, nausea, dizziness, double vision, and generalized weakness. This is her typical of her usual migraines, but much more severe today. Denies associated fever/chills, recent illness, congestion, sore throat, cough, chest pain, shortness of breath, change in p.o. intake, change in urine output or bowel movements. Has regular menstrual cycles, not on control. Denies history of cancer, blood clots, hormone use. Says that she has had migraines in the past so severe that she has had to seek emergency department care, says that usually migraine cocktail with Toradol, Reglan, and Benadryl works. She is not able to tolerate dexamethasone due to muscle cramping after taking this. She does have a neurologist at [facility] [place] that she follows up with. PAST SURGICAL HISTORY: Tubal removal in 2019 Neck surgery in 2023 Multi level fusion in neck and lower back Past medical history significant for IT band/patellofemoral syndrome bilaterally, asthma, HLD, HTN, depression, migraines, tonic-clonic seizures, chronic pain, and fibromyalgia. Related Data Home Medications ?Medication ?Instructions ?Recorded ?Confirmed albuterol sulfate 90 mcg/actuation 1 inh inhalation Q4H PRN shortness 10/19/21 11/06/24 breath activated powder inhaler of breath or wheezing 2 weeks #1 ea aspirin 81 mg chewable tablet 81 mg PO DAILY 12/28/22 11/06/24 gabapentin 300 mg capsule 600 mg PO TID 12/28/22 11/06/24 magnesium oxide 250 mg PO BID 12/28/22 11/06/24 cholecalciferol (vitamin D3) 50 2,000 unit PO DAILY 02/03/23 11/06/24 mcg (2,000 unit) capsule omeprazole 40 mg capsule,delayed 40 mg PO DAILY 01/06/24 11/06/24 release naproxen 500 mg tablet 500 mg PO BID 02/08/24 11/06/24 cetirizine 10 mg capsule (Zyrtec) 10 mg PO DAILY PRN allergy 04/06/24 11/06/24 symptoms #30 caps fluticasone propionate 50 1 spray intranasal DAILY #16 grams 04/06/24 11/06/24 mcg/actuation nasal spray,suspension (Flonase Allergy Relief) lisinopril 10 mg tablet 10 mg PO DAILY 08/24/24 11/06/24 nortriptyline 50 mg capsule 25 mg PO QHS 08/24/24 11/06/24 oxycodone-acetaminophen 5 mg-325 1 tab PO .COMPLEX PRN 08/24/24 11/06/24 mg tablet (Percocet) atorvastatin 20 mg tablet (Lipitor) 20 mg PO DAILY Cholesterol 10/02/24 11/06/24 clobazam 10 mg tablet 10 mg PO BID 10/02/24 11/06/24 lacosamide 100 mg tablet 100 mg PO BID 10/02/24 11/06/24 riboflavin (vitamin B2) 100 mg 200 mg PO BID 10/02/24 11/06/24 tablet (Vitamin B-2) Previous Rx's ?Medication ?Instructions ?Recorded albuterol sulfate 90 mcg/actuation 1 inh inhalation Q4H PRN shortness 10/19/21 breath activated powder inhaler of breath or wheezing 2 weeks #1 ea cetirizine 10 mg capsule (Zyrtec) 10 mg PO DAILY PRN allergy 04/06/24 symptoms #30 caps fluticasone propionate 50 1 spray intranasal DAILY #16 grams 04/06/24 mcg/actuation nasal spray,suspension (Flonase Allergy Relief) Allergies Allergy/AdvReac Type Severity Reaction Status Date / Time levetiracetam (From Keppra) Allergy Intermediate severe Verified 11/06/24 09:17 anxiety divalproex sodium (From AdvReac Mild weight gain Unverified 11/06/24 09:17 Depakote) General Stated Complaint: Headache GM: 3 Exam Narrative Exam Narrative: General Appearance: Normal. Patient is alert and oriented, in no acute distress. Wearing sunglasses due to photophobia. Vital signs: Within normal limits. HEENT: Pupils equal, round, reactive to light. EOMs intact. Neurological: Alert and oriented x4. Cranial nerves II-XII intact. Normal Romberg, finger finger, [id number], rapid alternating movements. Strength 5/5 in bilateral upper and lower extremities, sensation grossly intact. Coordination intact. Gait normal. Skin: Warm and dry, no rash. Psychiatric: Normal. Course Vital Signs Vital signs: Vital Signs Temperature 36.6 C 11/21/24 16:38 Pulse 92 H 11/21/24 16:38 Respiratory Rate 18 11/21/24 16:38 Blood Pressure 136/92 H 11/21/24 16:38 Pulse Oximetry 98 11/21/24 16:38 Temperature 36.6 C 11/21/24 17:28 Temperature Source Oral 11/21/24 17:28 Pulse 92 H 11/21/24 17:28 Respiratory Rate 18 11/21/24 17:28 Blood Pressure 136/92 H 11/21/24 17:28 Blood Pressure Position Sitting 11/21/24 17:28 Pulse Oximetry 98 11/21/24 17:28 Oxygen Delivery Method Room Air 11/21/24 17:28 Oxygen Flow Rate 0 11/21/24 17:28 Medical Decision Making Initial Assessment: Severe migraine with increased frequency, typical features including light sensitivity, nausea, and dizziness. Current migraine persisted for three days without relief from Percocet. History and presentation was consistent with migraine headache, no red flags concerning for infectious etiology, significant electrolyte disturbance, or significant intracranial process requiring diagnostic imaging or blood work at this time. ED Course: - Administered fluids - Administered migraine cocktail (Reglan, Benadryl) with Tylenol, as patient takes naproxen and Toradol would overdose NSAIDs Final Assessment: Treatment involved fluids, Reglan, Benadryl, and Tylenol. Bessie reports significant improvement of symptoms, with only mild temporal headache rated 3 out of 10 at this time. Other symptoms have fully resolved, has been able to take p.o. carline keturah without difficulty. Says she feels good to go home at this time. Clinical Impression: - Migraine The discharge instructions with patient, including symptomatic mgmt, red flags indicating need for return to emergency care, and importance of follow-up up with neurologist. She voices agreement w/ plan of care Disposition: - Follow-Up: Neurologist appointment on 12/22/2024 Patient consented to the use of RIDDHI PFSH All Active Problems (Updated 11/21/24 @ 18:36 by Sana Horton) Iliotibial band friction syndrome of both knees (Acute) Injection left: 08/24/2024 Chondromalacia of both patellae (Acute) Bilateral patellofemoral syndrome (Acute) Sciatica (Acute) 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 Fibromyalgia (Chronic) Treated with marijuana. Patient does not have a medical marijuana card Asthma (Chronic) Hyperlipidemia (Chronic) Migraine headache (Chronic) Depression (Chronic) Hypertension (Chronic) Generalized tonic-clonic seizure (Chronic) Onset 28 years old. Last seizure 2018. Neurologist at [facility] [place] Knee pain, bilateral (Chronic) Medical History Abnormal Pap smear of cervix Apr 2023: ASCUS/HPV+ ->colp: benign appearing Oct 2016: Normal/neg Tremor of both hands secondary to Depakote, per pt. Grand mal seizure disorder Last seizure August 2018. 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 Has routine cardiology follow-up Dr. Rai in [place]. Pt. 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
== END 2024-11-21 18:42 | disposition home or self-care (01) ==
PROVIDERS: Emergency Provider Nurse Practitioner Family; PCP Physician Assistant
DX: G43.909 Migraine, unspecified, not intractable, without status migrainosus (principal); E78.5 Hyperlipidemia, unspecified; I10 Essential (primary) hypertension
CPT/HCPCS: 96374; 96375; 99284; J1200; J2765

== ENCOUNTER 2025-01-07 21:02 | Outpatient (REF) | payer MEDICAID, SELFPAY | END 2025-01-07 21:03 | disposition home or self-care (01) | LOC: NCHCN 21:02 | PROVIDERS: PCP Physician Assistant; Visit Provider Physician Assistant | DX: R10.32 Left lower quadrant pain (principal) | CPT/HCPCS: 87086 ==

== ENCOUNTER 2025-01-14 18:18 | Emergency (ER) | payer MEDICAID, SELFPAY ==
[2025-01-14 18:24] VITALS: BP 137/98; PULSE 92; RESP 14; TEMP 37; O2SAT 96
[2025-01-14 18:33] VITALS: BP 137/98; PULSE 92; RESP 14; TEMP 37; O2SAT 96
--- NOTE | 2025-01-14 18:37 | W.ED.GENAD ---
Discharge Plan Disposition Patient Disposition: Home Condition: Stable Discharge Details Clinical Impression: Dysuria, Loosening of spinal fixation device Primary Care Provider: Duane Ferrari ED Provider: Julian Vizcarra Home Meds and New Rx's Prescriptions: Continued Zyrtec 10 mg capsule 10 mg PO DAILY PRN (Reason: allergy symptoms) Qty: 30 0RF fluticasone propionate [Flonase Allergy Relief] 50 mcg/actuation spray,suspension 1 spray intranasal DAILY Qty: 16 0RF Rx Instructions: administer into each nostril until symptoms resolve oxycodone-acetaminophen [Percocet] 5-325 mg tablet 1 tab PO .COMPLEX PRN Rx Instructions: 1 tab orally TWICE PER WEEK PRN; atorvastatin [Lipitor] 20 mg tablet 20 mg PO DAILY lacosamide 100 mg tablet 100 mg PO BID Patient Comments: TAKE ONE TABLET BY MOUTH TWICE A DAY nortriptyline 50 mg capsule 25 mg PO QHS cholecalciferol (vitamin D3) 50 mcg (2,000 unit) capsule 2,000 unit PO DAILY Patient Comments: 1 capsule by mouth once a day After 8 weeks of D50,000U, take 1 cap of 2,000U daily clobazam 10 mg tablet 10 mg PO BID Patient Comments: 4/5/24-10mg am, 30mg at night albuterol sulfate 90 mcg/actuation aerosol powdr breath activated 1 inh IH Q4H PRN (Reason: shortness of breath or wheezing) 14 Days Qty: 1 0RF omeprazole 40 mg capsule,delayed release(DR/EC) 40 mg PO DAILY Patient Comments: TAKE ONE CAPSULE BY MOUTH EVERY DAY ONE HOUR PRIOR TO BED naproxen 500 mg tablet 500 mg PO BID Patient Comments: TAKE ONE TABLET BY MOUTH TWICE A DAY WITH MEALS aspirin 81 mg tablet,chewable 81 mg PO DAILY Patient Comments: Take 1 tablet by mouth once a day gabapentin 300 mg capsule 600 mg PO TID Patient Comments: TAKE ONE CAPSULE BY MOUTH TWICE A DAY magnesium oxide 250 mg magnesium tablet 250 mg PO BID Patient Comments: TAKE ONE TABLET BY MOUTH TWICE A DAY lisinopril 10 mg tablet 10 mg PO DAILY Patient Comments: TAKE ONE TABLET BY MOUTH EVERY DAY riboflavin (vitamin B2) [Vitamin B-2] 100 mg tablet 200 mg PO BID Patient Comments: TAKE TWO TABLETS BY MOUTH TWICE A DAY Discharge Instructions Instructions: Spinal Fusion, Dysuria (ED) Additional Instructions: You were seen in the emergency department for your dysuria and lower abdominal discomfort, your urine is not infected you have no leukocytosis, we have discharged you without your results from your vaginal pathogen screen. Please call women's wellness to schedule an outpatient ultrasound, there was no renal stone or signs of kidney infection on your CT renal study. Your CT lumbar study shows one of the pedicle screws in your lumbar vertebra fusion is loosening, I have pushed images to [facility] [place] for your spinal doctor to review tomorrow by you calling them. You are neurovascularly intact in the lower extremities. Please continue your at home pain regimens and return for any emergent concerns. Stand Alone Forms: Portal Information Referrals: [facility] [Provider Group] Duane Ferrari PA [Primary Care Provider, Medicine] Discharge Data Discharge Date/Time-TO BE ENTERED AT DEPARTURE: 01/14/25 21:07 HPI General Date/Time Provider Initiated Documentation: 01/14/25 18:34. HPI Narrative: 39-year-old female presents today with question of urinary symptoms with dysuria, left and right lower abdominal discomfort with history of L4-L5 spinal fusion worried whether this is related to her spinal pathology without any numbness in the saddle and no new lower extremity radicular or weakness symptoms. She states that sometimes she will get a burning sensation when she is not urinating, denies any foul odors or discharge and is monogamous but not sexually active very often due to generalized pain from her spinal history. She takes daily naproxen and has oxycodone at home, denies any coordination difficulty in the lower extremities denies any other abdominal pain, endorses mild headache and nausea. Related Data Home Medications Medication Instructions Recorded Confirmed albuterol sulfate 90 mcg/actuation 1 inh inhalation Q4H PRN shortness 10/19/21 11/06/24 breath activated powder inhaler of breath or wheezing 2 weeks #1 ea aspirin 81 mg chewable tablet 81 mg PO DAILY 12/28/22 11/06/24 gabapentin 300 mg capsule 600 mg PO TID 12/28/22 11/06/24 magnesium oxide 250 mg PO BID 12/28/22 11/06/24 cholecalciferol (vitamin D3) 50 2,000 unit PO DAILY 02/03/23 11/06/24 mcg (2,000 unit) capsule omeprazole 40 mg capsule,delayed 40 mg PO DAILY 01/06/24 11/06/24 release naproxen 500 mg tablet 500 mg PO BID 02/08/24 11/06/24 cetirizine 10 mg capsule (Zyrtec) 10 mg PO DAILY PRN allergy 04/06/24 11/06/24 symptoms #30 caps fluticasone propionate 50 1 spray intranasal DAILY #16 grams 04/06/24 11/06/24 mcg/actuation nasal spray,suspension (Flonase Allergy Relief) lisinopril 10 mg tablet 10 mg PO DAILY 08/24/24 11/06/24 nortriptyline 50 mg capsule 25 mg PO QHS 08/24/24 11/06/24 oxycodone-acetaminophen 5 mg-325 1 tab PO .COMPLEX PRN 08/24/24 11/06/24 mg tablet (Percocet) atorvastatin 20 mg tablet (Lipitor) 20 mg PO DAILY Cholesterol 10/02/24 11/06/24 clobazam 10 mg tablet 10 mg PO BID 10/02/24 11/06/24 lacosamide 100 mg tablet 100 mg PO BID 10/02/24 11/06/24 riboflavin (vitamin B2) 100 mg 200 mg PO BID 10/02/24 11/06/24 tablet (Vitamin B-2) Previous Rx's Medication Instructions Recorded albuterol sulfate 90 mcg/actuation 1 inh inhalation Q4H PRN shortness 10/19/21 breath activated powder inhaler of breath or wheezing 2 weeks #1 ea cetirizine 10 mg capsule (Zyrtec) 10 mg PO DAILY PRN allergy 04/06/24 symptoms #30 caps fluticasone propionate 50 1 spray intranasal DAILY #16 grams 04/06/24 mcg/actuation nasal spray,suspension (Flonase Allergy Relief) Allergies Allergy/AdvReac Type Severity Reaction Status Date / Time levetiracetam (From Keppra) Allergy Intermediate severe Verified 01/14/25 18:31 anxiety divalproex sodium (From AdvReac Mild weight gain Unverified 01/14/25 18:31 Depakote) methylprednisolone AdvReac Mild cramps Verified 01/14/25 18:32 General Stated Complaint: Urinary GM: 3 Review of Systems All systems reviewed & are unremarkable except as noted in HPI and below Exam Narrative Exam Narrative: GENERAL APPEARANCE: Well-nourished, non-toxic, awake and alert, atraumatic, no acute distress. SKIN: Warm, pink, dry, intact, without rashes/lesions/ulcerations. HEAD: Normocephalic, atraumatic, normal hair distribution for gender/age. EYES: Normal conjunctiva, no exudates on lids/lashes. ENT: Nares patent, no circumoral cyanosis, no facial swelling NECK: Supple, trachea midline, painless cervical ROM. LUNGS/CHEST: Lungs CTA bilaterally-no rhonchi/rales/wheeze diffusely, non-labored respirations, normal A/P diameter, symmetrical expansion, no chest wall deformity HEART (CV/PV): Regular rate and rhythm without murmur, no peripheral edema, no JVD. ABDOMEN: Soft, non-distended, no guarding, no CVA tenderness to percussion bilaterally, diffuse lower abdominal tenderness without rebound tenderness, negative Gilbert sign. MSK: Normal ROM, no swelling/deformity to bilateral UEs or LEs, moving all extremities without weakness, no cyanosis, spine midline without tenderness, normal curvature. NEURO: Mental Status AAOx4 - alert to person, place, time, events No facial droop, no forehead involvement. Motor: No focal weakness - strength 5/5 in bilateral UEs and LEs, proximal and distal, symmetric. Sensory: sensation intact to light touch globally. Gait normal: patient ambulated without ataxia into ED room. PSYCH: euthymic, cooperative, pleasant, appropriate speech Course Vital Signs Vital signs: Vital Signs Temperature 37 C 01/14/25 18:24 Pulse 92 H 01/14/25 18:24 Respiratory Rate 14 01/14/25 18:24 Blood Pressure 137/98 H 01/14/25 18:24 Pulse Oximetry 96 01/14/25 18:24 Temperature 37 C 01/14/25 18:33 Temperature Source Temporal Artery Scan 01/14/25 18:33 Pulse 92 H 01/14/25 18:33 Respiratory Rate 14 01/14/25 18:33 Blood Pressure 137/98 H 01/14/25 18:33 Blood Pressure Position Sitting 01/14/25 18:33 Pulse Oximetry 96 01/14/25 18:33 Oxygen Delivery Method Room Air 01/14/25 18:33 Oxygen Flow Rate 0 01/14/25 18:33 Pain Level 8 01/14/25 18:33 Comment taking naproxen and Percocet did not take anything recently so we could see the extent of the pain 01/14/25 18:33 Medical Decision Making This dictation utilizes [id number] dictation software and may contain unedited grammatical errors. 39-year-old female presents today with question of urinary symptoms with dysuria, left and right lower abdominal discomfort with history of L4-L5 spinal fusion worried whether this is related to her spinal pathology without any numbness in the saddle and no new lower extremity radicular or weakness symptoms. She states that sometimes she will get a burning sensation when she is not urinating, denies any foul odors or discharge and is monogamous but not sexually active very often due to generalized pain from her spinal history. She takes daily naproxen and has oxycodone at home, denies any coordination difficulty in the lower extremities denies any other abdominal pain, endorses mild headache and nausea. Patients' medical history: History of seizure, history of tubal ligation,, being treated for bilateral IT band syndrome, sciatica, fibromyalgia, asthma, hyperlipidemia, migraine syndrome. Family and social history: Noncontributory. Pertinent exam findings / vital signs include diffuse lower abdominal tenderness, no CVA tenderness to percussion bilaterally, neurovascular intact in lower extremities without any weakness, no sensory deficits, no saddle anesthesia, benign cardiopulmonary status. Differential / pathologies of concern include pyelonephritis, renal colic, UTI, ovarian cyst, endometriosis, vaginitis, lumbar radiculopathy. Diagnostic studies of: - CBC, CMP, lipase, UA, CT renal colic, CT lumbar with recons, vaginal pathogen swab. - CBC shows no acute abnormality - CMP unremarkable - Lipase negative - UA benign - CT renal study shows no nephrolithiasis or other abnormality of renal system in question is a hazy pancreas but her lipase is normal - CT lumbar shows degenerative changes with suggested L5 pedicle screw loosening Patient did perform self-swab just prior to discharge, but lab rejected the sample- she would need another with [facility] visit. hog counter called the patient to inform of this at 2144. Interventions of: - Discussed with patient calling women's wellness where she is already established to have ultrasound ordered, she is discharged without her vaginal pathogen screen resulted and could not get these results from women's wellness. Pushed images to [facility] [place] where she sees Dr. Tripathi for her spinal surgery encouraged her to have her team review the images, she is neurovascular intact both lower extremities and I do not feel her possible screw loosening is causing any spinal emergency. ED Course/Assessment/Plan: 39-year-old female with constellation of complaints primarily lower abdominal pain presents with dysuria and burning sensation, has no UTI and no evidence of any renal colic, incidentally she has a past history of lumbar fusion with a possible L5 loosening pedicle screw which would not cause cord syndrome, this could be causing bilateral radiative pain to her lower abdomen anteriorly, she is going to follow-up by obtaining an outpatient ultrasound from women's wellness service with strict return reassuring for any emergent concerns. Findings not consistent with obstructive uropathy, infection, pyelonephritis, renal stone, cauda equina. Disposition of Dysuria, Loosening of Spinal Fixation Device. Patient verbalized understanding of the plan and return to ED criteria and engaged in shared decision making. Medical Records Medical records reviewed: Yes I reviewed the patient's medical records. Imaging Data Radiologic Study: Attestation: I personally reviewed and interpreted this imaging study as follows: Imaging: CT Scan Radiologist's impression: Exam(s) Addendum created by Holly Hill MD on 01/14/2025 8:29:53 PM EST: THIS REPORT CONTAINS FINDINGS THAT MAY BE CRITICAL TO PATIENT CARE. JULIAN VIZCARRA confirmed via telephone conference at 01/14/2025 8:29 PM EST that the findings of this report are acknowledged and understood. Initial report created on 01/14/2025 8:19:03 PM EST: PROCEDURE INFORMATION: Exam: CT Lumbar Spine Without Contrast Exam date and time: 01/14/2025 7:37 PM Age: 39 years old Clinical indication: Low back pain and other: Flank pain TECHNIQUE: Imaging protocol: Computed tomography of the lumbar spine without contrast. COMPARISON: MR LUMBAR SPINE WO 09/19/2021 7:30 AM FINDINGS: Bones/joints: The patient is status post posterior decompression and fusion of the L4 and L5 vertebral bodies. There is prominent lucency noted surrounding the bilateral L5 pedicle screws, suggestive of loosening. No acute fracture. There is grade 1 anterolisthesis of L4 on L5. There is mild to moderate bilateral neural foraminal narrowing at L4-L5 secondary to degenerative disc disease and facet arthropathy. Soft tissues: Unremarkable. IMPRESSION: 1. No acute fracture. 2. Degenerative changes noted with findings suggestive of L5 pedicle screw loosening. Dictated and Authenticated by: Holly Hill MD. Radiologic Study #2: Attestation: I personally reviewed and interpreted this imaging study as follows: Imaging: CT Scan Radiologist's impression: Exam: CT Abdomen And Pelvis Without Contrast Exam date and time: 01/14/2025 7:37 PM Age: 39 years old Clinical indication: Abdominal pain; Flank; Left TECHNIQUE: Imaging protocol: Computed tomography of the abdomen and pelvis without contrast. COMPARISON: CT ABDOMEN PELVIS W 07/05/2022 10:32 PM FINDINGS: Limitations: Motion artifact does moderately limit the sensitivity of this examination. Liver: Unremarkable liver. No mass identified. Gallbladder and biliary ducts: The gallbladder is unremarkable. No calcified stones. No ductal dilation. Pancreas: No ductal dilation. No pancreatic lesion seen. There is a hazy appearance of the pancreatic tail, possibly related to motion , although inflammation can not be excluded. Spleen: Normal. No splenomegaly. Adrenal glands: Normal. No mass. Kidneys and ureters: Normal. No hydronephrosis. Stomach and bowel: No obstruction. No mucosal thickening. Appendix: No evidence of appendicitis. Intraperitoneal space: No free air. No significant fluid collection. Vasculature: No abdominal aortic aneurysm. Lymph nodes: Unremarkable. No enlarged lymph nodes. Urinary bladder: Unremarkable as visualized. Reproductive: Unremarkable as visualized. Bones/joints: Unremarkable. No acute fracture. Soft tissues: Unremarkable. IMPRESSION: 1. No evidence of bowel obstruction or acute bowel inflammation. 2. No nephrolithiasis or hydronephrosis. 3. Hazy appearance of the distal pancreas, which may be secondary to motion. However, correlate with clinical findings to exclude any pancreatic inflammation. Dictated and Authenticated by: Holly Hill MD. Lab Data Lab results reviewed: Yes I reviewed the patient's lab results. Labs: Laboratory Tests Range/Units 01/14/25 01/14/25 18:35 19:27 WBC (4.4-10.8) 10^3/uL 10.34 RBC (3.93-5.22) 10^6/uL 4.81 Hgb (11.2-15.7) g/dL 14.0 Hct (36.0-46.0) % 41.5 MCV (80-95) fL 86 MCH (27.0-33.0) pg 29.1 MCHC (32.0-36.0) % 33.7 RDW (11.7-14.6) % 11.6 L Plt Count (130-400) 10^3/uL 346 MPV (8.0-11.0) fL 8.5 Immature Gran % % 0.5 Neutrophils % % 53.7 Lymphocytes % % 30.6 Monocytes % % 9.6 Eosinophils % % 4.7 Basophils % % 0.9 Nucleated RBC % (0.0-0.3) % 0.0 Absolute Neutrophils (1.2-6.7) 10^3/uL 5.56 Absolute Lymphocytes (1.2-3.4) 10^3/uL 3.16 Absolute Monocytes (0.1-0.8) 10^3/uL 0.99 H Absolute Eosinophils (0.0-0.7) 10^3/uL 0.49 Absolute Basophils (0.0-0.2) 10^3/uL 0.09 Sodium (136-145) mmol/L 137 Potassium (3.5-5.1) mmol/L 4.2 Chloride (98-107) mmol/L 103 Carbon Dioxide (20.0-31.0) mmol/L 23.7 Anion Gap (3-11) mmol/L 10.3 BUN (9-23) mg/dL 9 Creatinine (0.55-1.02) mg/dL 0.6 Est GFR (CKD-EPI 2020) (mL/min/1.73m2) 102.15 Glucose (74-106) mg/dL 83 Calcium (8.3-10.6) mg/dL 9.7 Total Bilirubin (0.2-1.2) mg/dL 0.40 AST (<34) U/L 29 ALT (10-49) U/L 36 Alkaline Phosphatase (46-116) U/L 40 L Total Protein (5.7-8.2) g/dL 7.9 Albumin (3.4-5.0) g/dL 4.7 Lipase (<53) U/L 20 Urine Color (Yellow) Yellow Urine Clarity (Clear) Clear Urine pH (5-8) 6.0 Ur Specific [place] (1.005-1.025) <= 1.005 Urine Protein (Neg-Trace) mg/dL Negative Urine Ketones (Negative) mg/dL Negative Urine Blood (Negative) Negative Urine Nitrite (Negative) Negative Urine Bilirubin (Negative) Negative Urine Urobilinogen (Up to 0.2) mg/dL 0.2 Ur Leukocyte Esterase (Negative) Negative Urine Glucose (Negative) mg/dL Negative PFSH All Active Problems (Updated 01/14/25 @ 20:51 by JORDY Randall) Loosening of spinal fixation device (Acute) Dysuria (Acute) Iliotibial band friction syndrome of both knees (Acute) Injection left: 08/24/2024 Chondromalacia of both patellae (Acute) Bilateral patellofemoral syndrome (Acute) Sciatica (Acute) 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 Fibromyalgia (Chronic) Treated with marijuana. Patient does not have a medical marijuana card Asthma (Chronic) Hyperlipidemia (Chronic) Migraine headache (Chronic) Depression (Chronic) Hypertension (Chronic) Generalized tonic-clonic seizure (Chronic) Onset 28 years old. Last seizure 2018. Neurologist at [facility] [place] Knee pain, bilateral (Chronic) Medical History Abnormal Pap smear of cervix Apr 2023: ASCUS/HPV+ ->colp: benign appearing Oct 2016: Normal/neg Tremor of both hands secondary to Depakote, per pt. Grand mal seizure disorder Last seizure August 2018. 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 Has routine cardiology follow-up Dr. Rai in [place]. Pt. 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
--- NOTE | 2025-01-14 18:45 | DI.CT_ITS ---
Exam(s) CT LUMBAR SPINE RECONS EXAM: CT LUMBAR SPINE RECONS CLINICAL HISTORY: flank and back pain. TECHNIQUE: Imaging Protocol: Axial computed tomography images with coronal and sagittal reformatted images were created and reviewed COMPARISON: CT CT ABDOMEN PELVIS W from 07/05/2022 FINDINGS: Bones: Posterior decompression and fusion at L4 and L5 levels. There is posterior fusion hardware at L4 and L5 levels secured by bilateral intrapedicular screws at both of these levels.. There is prominent abnormal lucency around both intrapedicular screws at the L5 level consistent with loosening. Similar finding not seen around the L4 level screws. There is mild grade 1 anterolisthesis L4 upon L5 and moderate bilateral neural foraminal narrowing at L4-5 level. PARASPINAL SOFT TISSUES: Visualized paraspinal tissues appear unremarkable. IMPRESSION: 1. There is abnormal lucency around both intra pedicular screws at L5 level consistent with loosening. No fractures evident. 2. L4 level screw screws are well-seated. Preliminary V rad report was reviewed. RADIATION DOSE DELIVERED: 752.65mGy.cm Total DLP DATA REPOSITORY: All CT scans at this facility are submitted to the National Radiology Data Registry (NRDR) Dose Index Registry (DIR) with the [employer] ([employer]). RADIATION OPTIMIZATION: All CT scans at this facility use at least one of these dose optimization techniques: automated exposure control; mA and/or kV adjustment per patient size (includes targeted exams where dose is matched to clinical indication); or iterative reconstruction.
--- NOTE | 2025-01-14 18:45 | DI.CT_ITS ---
Exam(s) CT RENAL COLIC WO EXAM: CT RENAL COLIC WO xx CLINICAL HISTORY: L flank pain, urinary urge/frquency/burning. TECHNIQUE: Imaging Protocol: Axial computed tomography images with coronal and sagittal reformatted images were created and reviewed CONTRAST MATERIAL: Intravenous: none Oral: None COMPARISON: CT CT LUMBAR SPINE RECONS from 01/14/2025 FINDINGS: VISUALIZED LUNG BASES: No nodules nor pleural effusions evident. ABDOMEN: There is no ascites. LIVER: There are no obvious focal hepatic lesions evident of this noninfused study. GALLBLADDER/BILIARY: No obvious gallbladder pathology. CBD is not dilated. PANCREAS: There is mild haziness around the pancreatic tail possibly due to respiratory motion artifact. The remainder of the pancreas appears unremarkable. Pancreatic duct is not dilated. There are no pancreatic calcifications. Small hypodensity in the uncinate process of the pancreas is noted measuring 5 x 5 mm. SPLEEN: Spleen is not enlarged. No obvious intrasplenic lesions. ADRENALS: There are no significant adrenal masses. KIDNEYS:No cysts evident. No solid renal masses. No calculi nor hydronephrosis. . ABDOMINAL AORTA: Abdominal aorta is not enlarged. LYMPH NODES: There is no retroperitoneal nor paraaortic adenopathy. ABDOMINAL WALL: No evidence of significant anterior abdominal wall nor inguinal hernia. GI: There is no evidence of bowel obstruction, free air, nor abscess. PELVIS: LYMPH NODES: There is no intrapelvic nor inguinal adenopathy. GI: No evidence of appendicitis.No evidence of sigmoid diverticulitis. URINARY BLADDER: No calculi nor obvious masses evident REPRODUCTIVE: Adnexal regions appear age-appropriate. No free fluid in the pelvis. OSSEOUS: There is fusion hardware in the lower across L4 and L5. Six pedicular screws bilaterally at both these levels. The intrapedicular screws at L4 level appear unremarkable however, there is at normal lucency around both of the the intrapedicular screws at the L5 level. IMPRESSION: 1. Mild haziness around the pancreatic tail. May be secondary to motion artifact. Cannot exclude subtle pancreatitis. Recommend appropriate blood work. 2. No renal calculi nor hydronephrosis. No hydroureter. 3. Other findings as above. Preliminary V rad report was reviewed. RADIATION DOSE DELIVERED: 752.65mGy.cm Total DLP DATA REPOSITORY: All CT scans at this facility are submitted to the National Radiology Data Registry (NRDR) Dose Index Registry (DIR) with the [employer] ([employer]). RADIATION OPTIMIZATION: All CT scans at this facility use at least one of these dose optimization techniques: automated exposure control; mA and/or kV adjustment per patient size (includes targeted exams where dose is matched to clinical indication); or iterative reconstruction.
[2025-01-14 19:39] LABS: Abs Immature Grans 0.05 10^3/uL (0.0-0.06); HCT 41.5 % (36.0-46.0); HGB 14.0 g/dL (11.2-15.7); Immature Grans % 0.5 %; MCH 29.1 pg (27.0-33.0); MCHC 33.7 % (32.0-36.0); MCV 86 fL (80-95); MPV 8.5 fL (8.0-11.0); Platelet Count 346 10^3/uL (130-400); RBC 4.81 10^6/uL (3.93-5.22); RDW 11.6 % (11.7-14.6); RDW-SD 36.6 fL; WBC 10.34 10^3/uL (4.4-10.8)
[2025-01-14] MEDS: ACETAMINOPHEN 1,000 MG/100 ML BAG 400 MG IVPB (19:50)
[2025-01-14] MEDS: Normal Saline 1,000 ML 1000 ML IV (19:50)
[2025-01-14 19:51] LABS: Lipase 20 U/L (<53)
[2025-01-14] MEDS: Ketorolac 15 MG/ML VIAL IVP (19:52)
[2025-01-14 19:54] LABS: ALT 36 U/L (10-49); AST 29 U/L (<34); Albumin 4.7 g/dL (3.4-5.0); Alkaline Phosphatase 40 U/L (46-116); Anion Gap 10.3 mmol/L (3-11); BUN 9 mg/dL (9-23); Bilirubin, Total 0.40 mg/dL (0.2-1.2); CO2 23.7 mmol/L (20.0-31.0); Calcium 9.7 mg/dL (8.3-10.6); Chloride 103 mmol/L (98-107); Glucose 83 mg/dL (74-106); Potassium 4.2 mmol/L (3.5-5.1); Sodium 137 mmol/L (136-145); Total Protein 7.9 g/dL (5.7-8.2)
[2025-01-14 20:18] LABS: Glucose Negative (Negative)
--- NOTE | 2025-01-14 20:19 | DI.VRAD_ITS ---
Addendum created by Holly Hill MD on 01/14/2025 8:29:53 PM EST: THIS REPORT CONTAINS FINDINGS THAT MAY BE CRITICAL TO PATIENT CARE. CRYSTAL VIZCARRA confirmed via telephone conference at 01/14/2025 8:29 PM EST that the findings of this report are acknowledged and understood. Initial report created on 01/14/2025 8:19:03 PM EST: PROCEDURE INFORMATION: Exam: CT Lumbar Spine Without Contrast Exam date and time: 01/14/2025 7:37 PM Age: 39 years old Clinical indication: Low back pain and other: Flank pain TECHNIQUE: Imaging protocol: Computed tomography of the lumbar spine without contrast. COMPARISON: MR LUMBAR SPINE WO 09/19/2021 7:30 AM FINDINGS: Bones/joints: The patient is status post posterior decompression and fusion of the L4 and L5 vertebral bodies. There is prominent lucency noted surrounding the bilateral L5 pedicle screws, suggestive of loosening. No acute fracture. There is grade 1 anterolisthesis of L4 on L5. There is mild to moderate bilateral neural foraminal narrowing at L4-L5 secondary to degenerative disc disease and facet arthropathy. Soft tissues: Unremarkable. IMPRESSION: 1. No acute fracture. 2. Degenerative changes noted with findings suggestive of L5 pedicle screw loosening. Dictated and Authenticated by: Holly Hill MD. Orderin Padmini Jordan MD
--- NOTE | 2025-01-14 20:20 | DI.VRAD_ITS ---
PROCEDURE INFORMATION: Exam: CT Abdomen And Pelvis Without Contrast Exam date and time: 01/14/2025 7:37 PM Age: 39 years old Clinical indication: Abdominal pain; Flank; Left TECHNIQUE: Imaging protocol: Computed tomography of the abdomen and pelvis without contrast. COMPARISON: CT ABDOMEN PELVIS W 07/05/2022 10:32 PM FINDINGS: Limitations: Motion artifact does moderately limit the sensitivity of this examination. Liver: Unremarkable liver. No mass identified. Gallbladder and biliary ducts: The gallbladder is unremarkable. No calcified stones. No ductal dilation. Pancreas: No ductal dilation. No pancreatic lesion seen. There is a hazy appearance of the pancreatic tail, possibly related to motion , although inflammation can not be excluded. Spleen: Normal. No splenomegaly. Adrenal glands: Normal. No mass. Kidneys and ureters: Normal. No hydronephrosis. Stomach and bowel: No obstruction. No mucosal thickening. Appendix: No evidence of appendicitis. Intraperitoneal space: No free air. No significant fluid collection. Vasculature: No abdominal aortic aneurysm. Lymph nodes: Unremarkable. No enlarged lymph nodes. Urinary bladder: Unremarkable as visualized. Reproductive: Unremarkable as visualized. Bones/joints: Unremarkable. No acute fracture. Soft tissues: Unremarkable. IMPRESSION: 1. No evidence of bowel obstruction or acute bowel inflammation. 2. No nephrolithiasis or hydronephrosis. 3. Hazy appearance of the distal pancreas, which may be secondary to motion. However, correlate with clinical findings to exclude any pancreatic inflammation. Dictated and Authenticated by: Holly Hill MD. Orderin Padmini Jordan MD
[2025-01-14 21:05] VITALS: BP 129/79; PULSE 89; TEMP 36.2; O2SAT 99
--- NOTE | 2025-01-14 21:50 | NUR.NOTE ---
Nursing Note: This RN accessed patient's chart to get patient's contact number. This RN called patient to inform her that the vaginal pathogen specimen that was collected prior to discharge had an issue with the collection chamber and the test was unable to be performed. Francisco SPENCE aware. [facility] to [facility] and to inform [facility] that testing was not able to be performed and to have them swab for pathogens at next visit. Nancy Gutierrez RN
--- NOTE | 2025-01-15 15:06 | W.ED.FU ---
Date of service: 01/15/25 Time of Service: 15:07 Follow Up Plan: Had admin staff file a [facility] ortho-spine referral for this patient seen last night for loosening screws of L4-5 fusion seen last night. Patient had been advised to call herself as well, but better for closed loop communication.
== END 2025-01-14 21:07 | disposition home or self-care (01) ==
PROVIDERS: Emergency Provider Physician Assistant; PCP Physician Assistant
DX: R30.0 Dysuria (principal); T84.038A Mechanical loosening of other internal prosthetic joint, initial encounter
CPT/HCPCS: 99284 ×2; 96375; 80053; 83690; 96365; 74176; 81003; 85025; 87480; 87510; 87660; J0131; J1885